=== PATIENT | female | born 1945 | race Caucasian/White ===

== ENCOUNTER 2023-07-11 12:46 | Outpatient (OUT) | payer MEDICARE, SELFPAY ==
--- NOTE | 2023-07-11 14:10 | P.CN_ITS ---
Consult Note: HPI Data of Consult Patient: new to practice Consult date: 07/11/23 Requesting Physician: Kei Espana MD Primary Care Provider: KELLY MCKEON Consult Narrative Reason for consult: low back pain Narrative: 78yof who presents for evaluation. longstanding low back pain, progressively worse in past several months. very active and preventing her from completing activities around home. worst with standing and ambulation. imaging shows severe facet arthropathy in lower lumbar spine. has completed >6 weeks of provider directed home exercise program, with limited benefit. uses otc meds as needed. cc:: CC: Kei Espana MD Review of Systems ROS Status of ROS 10 or more systems reviewed and unremark able except as noted in history and below Exam Narrative Exam Narrative: Psych-alert and oriented x 3. Attentive and appropriate, constitutionally normal, displays normal mood and affect per situation.? There are no obvious deficits in memory, reasoning, or intellect.? Skin-no obvious rashes, bruising, erythema noted to the patient's area of pain. Extremities- extremities are warm with minimal edema and palpable pulses. Lumbar-no significant tenderness to palpation noted in the lumbar spine and paraspinal musculature.? Pain is elicited with extension, and lateral rotation of the lumbar spine. Range of motion is slightly diminished with these motions due to pain. Facet loading maneuvers are positive bilaterally and do appear to be concordant with the patient's normal complaints of pain.? Coordination remains intact.? Gait remains non-antalgic. Assessment and Plan Assessment and Plan (1) Lumbar spondylosis: Plan 78yof who presents for evaluation. failed conservative measures, as noted. imaging reviewed, as noted. given symptoms and imaging, prudent to attempt diagnostic bilateral l4-5, l5-s1 medial branch block under fluoroscopic guidance with intention of proceeding to radiofrequency ablation. she is in agreement. me ds reviewed, no changes. follow up after procedure.
== END 2023-07-11 12:47 | disposition home or self-care (01) ==
PROVIDERS: PCP Family Medicine; Visit Provider Anesthesiology
DX: M47.816 Spondylosis without myelopathy or radiculopathy, lumbar region (principal)
CPT/HCPCS: G0463

== ENCOUNTER 2023-07-25 06:45 | Day surgery (SDC) | payer MEDICARE, SELFPAY ==
--- OUTSIDE RECORDS SUMMARY | 2023-07-25 06:49 | XMS_ITS | CCD ---
Author Organization [facility] Care Team Providers Care Podopediatrician Name Role Phone PHYSICIAN, DEFAULT Admitting Unavailable PHYSICIAN, DEFAULT Attending Unavailable MIKE, SHARI Primary Care Unavailable SU, DR BÁRBARA Amaral Admitting Unavailorestes BLUE, DR BÁRBARA Amaral Attending Unavailorestes TORRES, SARAHI ENG Consulting Unavailable MIKE, DR MENDOZA Primary Care Unavailable Remy Ness Consulting Unavailable WIECEK, DR CARLOS EDUARDO Worthy Consulting Unavailable MIKE, DR MENDOZA Primary Care Unavailable RAMILA, DR CARLOS EDUARDO Worthy Attending Unavailable WISORIN, DR CARLOS EDUARDO Worthy Admitting Unavailable MORAIMA RODNEY Consulting Unavailable MIKE, DR MENDOZA Consulting Unavailable MIKE, DR MENDOZA Attending Unavailable MIKE, DR MENDOZA Admitting Unavailable MIKE, DR MENDOZA Primary Care Unavailable MIKE, DR MENDOZA Primary Care Unavailable WIECESofiya, DR CARLOS EDUARDO Worthy Attending Unavailable WIECEK, DR CARLOS EDUARDO Worthy Admitting Unavailable WIECEK, DR CARLOS EDUARDO Worthy Consulting Unavailable MIKE, DR MENDOZA Consulting Unavailable MIKE, DR MENDOZA Attending Unavailable MIKE, DR MENDOZA Admitting Unavailable MIKE, DR MENDOZA Primary Care Unavailable MIKE, SHARI Amaral Primary Care Unavailable MIKE, SHARI Amaral Consulting Unavailable RichardMarisa armstrong Admitting Unavail able Marisa Ramos Attending Unavail able SHARI MCKEON Primary Care Unavailable Richard, Marisa Calderon Admitting Unavail able Marisa Ramos Attending Unavail able ALEXANDER APARICIO Attending Unavailab le SHARI MCKEON Attending Unavailable SHARI MCKEON Referring Unavailable MARISA RAMOS Attending Unavailable MARISA RAMOS Referring Unavailable MARISA RAMOS Attending Unavailable RICHARD, MARISA Plascencia Attending Unavailable RICHARD, MARISA A Referring Unavailable MARISA RAMOS Attending Unavailable Alessandra ENTRY LEVEL SALES REPRESENTATIVE, Alexander Plascencia Unavailable Shari Mckeon MD Primary Care Provider Jovi JAIMES, Kei Brian Attending Unavailable Allergies Allergy Classification Reported Allergen(s) Allergy Type Date of Onset Reaction(s) Facility (2 sources) Alendronate; Translations: [Fosamax] Drug Allergy [facility] Repository (2 sources) Alendronate Drug Allergy 09-10-2020 Unknown [facility] Medications Current Medications Medication Drug Class(es) Dates Sig (Normalized) Sig (Original) acetaminophen 325 mg / butalbital 50 mg / caffeine 40 mg oral tablet (2 sources) Barbiturate, Central Nervous System Stimulant, Methylxanthine take 1 tablet by mouth every four hours as needed butalbital-acetami nophen-caffeine 50-325-40 MG tablet Take 1 tablet by mouth every 4 (four) hours if needed (headache). 0 Active amoxicillin 500 mg oral tablet (1 source) Penicillin-class Antibacterial Start: 4 End: 4 take 4 tablets by mouth once amoxicillin (Amoxil) 500 MG tablet Indications: S/P reverse total shoulder arthroplasty, left 4 tabs PO once 30-60 mins before procedure 4 tablet 0 04/27/2023 05/04/2023 Active atorvastatin 20 mg oral tablet (2 sources) HMG-CoA Reductase Inhibitor Start: 4 take 1 tablet by mouth once daily atorvastatin (Lipitor) 20 MG tablet Indications: Mixed hyperlipidemia (CMS/HCC) take 1 tablet by mouth once daily 90 tablet 0 04/11/2023 Active azithromycin 250 mg oral tablet (1 source) Macrolide Antimicrobial Start: 4 End: 4 take 2 tablets by mouth once daily, then take 1 tablet by mouth once daily azithromycin (Zithromax) 250 MG tablet Indications: Upper respiratory tract infection, unspecified type Take 2 tablets (500 mg) by mouth Daily for 1 day, THEN 1 tablet (250 mg) Daily for 4 days. 6 tablet 0 04/18/2023 04/23/2023 Active CALCIUM-VITAMIN D PO (2 sources) Start: 3 CALCIUM-VITAMIN D PO 2 (two) times a day. 0 06/29/2022 Active diazePAM 5 mg oral tablet (2 sources) Benzodiazepine Start: 3 diazePAM (Valium) 5 MG tablet Indications: Chronic midline low back pain without sciatica 1 tablet po q.6 hours p.r.n. muscle spasms 20 tablet 0 02/08/2023 Active 60 actuat fluticasone propionate 0.25 mg/actuat / salmeterol 0.05 mg/actuat dry powder inhaler (2 sources) Corticosteroid, beta2-Adrenergic Agonist Start: 4 End: 4 take 1 puff(s) by inhalation in the morning Fluticasone-Salmet harriett 250-50 MCG/ACT aerosol powder Indications: Mild intermittent asthma, unspecified whether complicated (CMS/HCC) Inhale 1 puff in the morning and 1 puff before bedtime. 60 each 0 04/08/2023 07/07/2023 Active hydroCHLOROthiazide 12.5 mg / losartan potassium 100 mg oral tablet (3 sources) Thiazide Diuretic, Angiotensin 2 Receptor Aguilar Start: 4 take 1 tablet by mouth once daily in the morning losartan-hydroCHLO ROthiazide (Hyzaar) 100-12.5 MG tablet Indications: Essential hypertension (CMS/HCC) take 1 tablet by mouth every morning 100 tablet 1 04/21/2023 Active Start: 01-18-2023 End: 04-21-2023 take 1 tablet by mouth in the morning losartan-hydroCHLOROthiazide (Hyzaar) 100-12.5 MG tablet Indications: Essential hypertension (CMS/HCC) Take 1 tablet by mouth in the morning. 100 tablet 0 01/18/2023 04/21/2023 Discontinued Multiple Vitamin (multivitamin) capsule (2 sources) take 1 capsule by mouth in the morning Multiple Vitamin (multivitamin) capsule Take 1 capsule by mouth in the morning. 0 Active rimegepant 75 mg disintegrating oral tablet (2 sources) Start: 01-07-20 take 1 tablet by mouth once daily as needed Rimegepant Sulfate (Nurtec) 75 MG tablet dispersible Indications: Migraine without aura and without status migrainosus, not intractable (CMS/HCC) Take 75 mg by mouth Daily as needed (as needed for migraines). 10 tablet 0 01/06/2023 Active traZODone hydrochloride 50 mg oral tablet (2 sources) Serotonin Reuptake Inhibitor Start: 04-08-19 take 1 tablet by mouth at bedtime traZODone (Desyrel) 50 MG tablet Indications: Primary insomnia Take 1 tablet (50 mg) by mouth at bedtime 90 tablet 1 04/08/2023 Active turmeric extract 500 mg oral capsule (2 sources) Turmeric 500 MG tablet Orally 0 Active Problems Active Problems Problem Classification Problem Date Documented Da te Episodic/Chronic Asthma (4 sources) Mild intermittent asthma; Translations: [Mild intermittent asthma with status asthmaticus] Onset: 06-12-2017 07-15-2022 Chronic Chronic kidney disease (2 sources) Chronic kidney disease stage 3B ; Translations: [Stage 3b chronic kidney disease (HCC)] Onset: 07-15-2022 07-15-2022 Chronic Chronic obstructive pulmonary disease and bronchiectasis (3 sources) Chronic obstructive pulmonary disease, unspecified; Translations: [Chronic obstructive lung disease] Onset: 05-18-2011 07-15-2022 Chronic Disorders of lipid metabolism (4 sources) Pure hypercholesterolemi a; Translations: [Pure hypercholesterolemi a, unspecified] Onset: 07-15-2022 07-15-2022 Chronic Essential hypertension (6 sources) Essential (primary) hypertension; Translations: [Essential hypertension] Onset: 02-14-2020 04-21-2023 Chronic Headache; including migraine (9 sources) Migraine, unspecified, not intractable, without status migrainosus; Translations: [Migraine without aura, not refractory ] Onset: 03-29-2015 07-15-2022 Chronic Heart valve disorders (20 sources) Nonrheumatic aortic (valve) stenosis; Translations: [Nonrheumatic aortic (valve) stenosis with insufficiency] Onset: 06-12-2017 Chronic Osteoarthritis (9 sources) Unspecified osteoarthritis, unspecified site; Translations: [Arthritis of left knee] Onset: 06-22-2017 07-15-2022 Chronic Osteoporosis (4 sources) Senile osteoporosis; Translations: [Age-related osteoporosis without current pathological fracture] Onset: 11-04-2017 07-15-2022 Chronic Other connective tissue disease (2 sources) Artificial knee joint present; Translations: [Presence of unspecified artificial knee joint] Onset: 07-15-2022 07-15-2022 Chronic Other connective tissue disease (1 source) History of reverse prosthetic total arthroplasty of left shoulder; Translations: [Presence of left artificial shoulder joint] 04-27-2023 Chronic Other hereditary and degenerative nervous system conditions (4 sources) Restless legs; Translations: [Restless legs syndrome] Onset: 10-26-2017 07-15-2022 Chronic Other lower respiratory disease (4 sources) Shortness of breath; Translations: [SHORTNESS OF BREATH] Onset: 09-30-2020 Episodic Other nervous system disorders (2 sources) Difficulty walking; Translations: [Difficulty in walking, not elsewhere classified] Onset: 07-15-2022 07-15-2022 Chronic Other nervous system disorders (2 sources) Chronic pain; Translations: [Other chronic pain] Onset: 08-03-2022 08-03-2022 Chronic Other non-traumatic joint disorders (2 sources) Derangement of left shoulder joint; Translations: [Other specific joint derangements of left shoulder, not elsewhere classified] Onset: 07-15-2022 07-15-2022 Chronic Residual codes; unclassified (2 sources) Insomnia; Translations: [Other insomnia] Onset: 07-15-2022 07-15-2022 Chronic Residual codes; unclassified (2 sources) Poor sleep pattern; Translations: [Other sleep disorders] Onset: 08-21-2020 08-03-2022 Chronic Past or Other Problems Problem Classification Problem Date Documented Da te Episodic/Chronic Fever of unknown origin (4 sources) Fever, unspecified; Translations: [FEVER UNSPECIFIED] Onset: 01-02-2020 Episodic Fluid and electrolyte disorders (1 source) Dehydration; Translations: [DEHYDRATION] Onset: 01-04-2020 Episodic Gastritis and duodenitis (3 sources) Gastritis, unspecified, without bleeding; Translations: [Bile-induced gastritis] Onset: 02-14-2020 07-15-2022 Episodic Heart valve disorders (4 sources) Systolic murmur; Translations: [Cardiac murmur, unspecified] Onset: 07-15-2022 07-15-2022 Episodic Immunizations and screening for infectious disease (1 source) Contact with and (suspected) exposure to other viral communicable diseases; Translations: [CONTCT EXPS OTH VIRL COMMUNICABL DZ] Onset: 01-30-2020 Episodic Other aftercare (1 source) Other fpc (current) drug therapy; Translations: [OTH COP CURRENT DRUG THERAPY] Onset: 02-14-2020 Episodic Other aftercare (1 source) assistant 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 (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) use of aspirin; Translations: [JAIL CURRENT USE OF ASPIRIN] Onset: 01-04-2020 Episodic Other gastrointestinal disorders (4 sources) Dysphagia, unspecified; Translations: [DYSPHAGIA UNSPECIFIED] Onset: 02-01-2020 Episodic Other gastrointestinal disorders (2 sources) Dysphagia; Translations: [Dysphagia, unspecified] Onset: 07-15-2022 07-15-2022 Episodic Other lower respiratory disease (1 source) Cough; Translations: [COUGH] Onset: 01-04-2020 Episodic Residual codes; unclassified (2 sources) Postmenopausal state; Translations: [Asymptomatic menopausal state] Onset: 06-28-2015 08-03-2022 Episodic Urinary tract infections (1 source) Urinary tract infection, site not specified; Translations: [UTI SITE NOT SPECIFIED] Onset: 01-04-2020 Episodic Results Test Name Value Interpretation Reference Range Facility MR LUMBAR SPINE WO CONTRASTo n 03-01-2023 MR LUMBAR SPINE WO CONTRAST EXAM: MR LUMBAR SPINE WO CONTRAST History: Low back pain Technique: Multiplanar multisequence MRI of the lumbar spine was obtained without intravenous contrast. Comparison: Lumbar spine radiographs January 28, 2023 Findings: The conus medullaris ends normally. Mild levoscoliosis. The vertebral body heights are well maintained. There is no aggressive bone marrow signal abnormality. Disc desiccation throughout the lumbar spine. Moderate intervertebral disc height loss at T12-L1, L1-L2, and L2-L3 and mild intervertebral disc height loss at L3-L4. T12-L1: Small disc bulge. Mild facet arthropathy. Mild bilateral neural foraminal stenosis. No spinal canal stenosis. L1-L2: Moderate disc bulge. Mild facet arthropathy. Ligamentum flavum thickening. Moderate spinal canal stenosis. Mild left and moderate right neural foraminal stenosis. L2-L3: Small disc bulge. Mild facet arthropathy. Mild spinal canal stenosis. Moderate left and moderate to severe right neuroforaminal stenosis. L3-L4: Small disc bulge. Moderate facet arthropathy. Ligamentum flavum thickening. Mild spinal canal stenosis. Moderate bilateral neural foraminal stenosis. L4-L5: Small disc bulge. Moderate facet arthropathy. Mild spinal canal stenosis. Mild bilateral neural foraminal stenosis. L5-S1: Minimal anterolisthesis of L5 on S1 secondary to advanced facet arthropathy. Small disc bulge. Moderate to severe right and severe left neural foraminal stenosis. Mild spinal canal stenosis. Visualized paravertebral soft tissues appear within normal limits. Round hyperintense T2 structures of both kidneys measuring up to 9 mm most likely represent renal cysts. IMPRESSION: Degenerative changes of the lumbar spine as detailed. ELECTRONICALLY SIGNED BY: Shawn Preciado DO Normal Not Available XR CHEST 2 VIEWSon XR CHEST 2 VIEWS EXAMINATION: XR CHES T 2 VIEWS HISTORY: cough TECHNIQUE: Frontal and lateral views of the chest. COMPARISON: Chest radiograph September 10, 2020 FINDINGS: Atherosclerotic calcification of the thoracic aorta. Cardiomediastinal silhouette is within normal limits. No pneumothorax, pleural effusion, or consolidation. The lungs are hyperinflated and there is coarsening of the pulm interstitium. No acute osseous abnormality. IMPRESSION: No radiographic evidence of acute intrathoracic process. Findings suggesting COPD. ELECTRONICALLY SIGNED BY: Shawn Preciado DO Normal Not Available XR LUMBAR SPINE 4+ VIEWS WIT H FLEXION EXTENSIONon 01-28-2023 XR LUMBAR SPINE 4+ VIEWS WITH FLEXION EXTENSION CLINICAL HISTORY: back pain COMPARISON: NONE FINDINGS: There is no acute fracture or subluxation. There is no loss of vertebral body height. There is preservation of the lordotic curvature of the lumbar spine. There is grade 2 anterolisthesis of L5 on S1. There is levoscoliosis with a Muñoz angle measurement of 8 degrees between L1 and L4. There is dextroscoliosis of the thoracic spine. There is moderate intervertebral disc space narrowing The SI joints are symmetric. IMPRESSION: Impression: There is severe spondylosis of the lumbar spine. ELECTRONICALLY SIGNED BY: Yobany Rangel MD Normal Not Available Consent Formson 07-27-2022 Consent Forms [id number] [facility] Discharge Instructionson Discharge Instructions [id number]#1.00OTGTIFF [facility] MAGR Intraoperative Recordon 07-27-2022 MAGR Intraoperative Record MAGR Intra-Op Record Summary Primary Physician: Marisa Ramos DO Finalized Date/Time: 07/27/22 09:45:04 Pt. Name: RADHA CUADRA /Sex: 1945 FEMALE Med Rec #: [id number] Physician: Marisa Ramos DO Financial #: [id number] Pt. Type: D Room/Bed: / Admit/Disch: 07/26/22 05:52:10 - 07/26/22 11:55:00 Institution: Case Times MAGR Entry 1 Patient In Room Time 07/26/22 07:39:00 Out Room Time 07/26/22 09:50:00 Anesthesia Start Time 07/26/22 07:40:00 Stop Time 07/26/22 09:51:00 Surgery Start Time 07/26/22 08:13:00 Stop Time 07/26/22 09:46:00 Last Modified By: Meryl Eddy RN 07/27/22 06:54:11 Case Attendance MAGR Entry 1 Entry 2 Entry 3 Case Attendee Marisa Ramos William MD Derry RN, Jania Calderon DO Role Performed Surgeon - Primary Anesthesiologist of [employer] Developer Record Time In 07/26/22 07:39:00 07/26/22 07:39:00 07/26/22 07:39:00 Time Out 07/26/22 09:49:00 07/26/22 09:49:00 07/26/22 09:49:00 Procedure Arthroplasty Shoulder Arthroplasty Shoulder Arthroplasty Shoulder Total Reverse(Left) Total Reverse(Left) Total Reverse(Left) Last Modified By: Mode GOLDMAN, Jania Coello RN, Jania Conde RN 07/26/22 09:49:54 07/26/22 09:49:54 07/26/22 09:49:54 Entry 4 Entry 5 Entry 6 Case Attendee Paulina Vásquez CST, CST, Kelly CST McMurray CST/ZOE ENRIQUEZ CST Role Performed Scrub Personnel Scrub Personnel Printer Floor Covering Assistant Time In 07/26/22 07:39:00 07/26/22 07:39:00 07/26/22 07:39:00 Time Out 07/26/22 09:49:00 07/26/22 09:49:00 07/26/22 09:49:00 Procedure Arthroplasty Shoulder Arthroplasty Shoulder Arthroplasty Shoulder Total Reverse(Left) Total Reverse(Left) Total Reverse(Left) Last Modified By: Jania Coello RN, RN, Kathleen A Derry RN, Kathleen A 07/26/22 09:49:54 07/26/22 09:49:54 07/26/22 09:49:54 General Comments: Nicholas Harvard - Arthrex rep Surgical Procedures MAGR Pre-Care Text: A.20 Verifies operative procedure, surgical site, and laterality Im.150 Develops individualized plan of care Entry 1 Procedure Arthroplasty Shoulder Primary Procedure Yes Total Reverse Primary Surgeon Marisa Ramos Modifiers Left Kvng DO Surgeon Comment LEFT REVERSE TOTAL Start 07/26/22 08:13:00 SHOULDER - ARTHREX Stop 07/26/22 09:46:00 Anesthesia Type General Surgical Service Orthopedics Wound Class Clean Technique Details Closure Technique Primary Entire procedure No was performed via laparoscope or robotic assistance Last Modified By: Jania Coello RN 07/26/22 09:49:57 Post-Care Text: O.730 The patient's care is consistent with the individualized perioperative plan of care General Case Data MAGR Pre-Care Text: A.350.1 Classifies surgical wound Entry 1 Case Information OR MAGR OR 05 Case Level Level 5 Wound Class Clean Specialty Orthopedics ASA Class 2 Diagnosis Preop Diagnosis DJD LEFT SHOULDER Postop Same As Preop Yes Postop Diagnosis DJD LEFT SHOULDER Blunt or No Is the procedure No penetrating injury considered occured prior to Emergent/Urgent? the start of the procedure: Last Modified By: Jania Coello RN 07/26/22 08:24:31 Post-Care Text: O.760 Patient receives consistent and comparable care regardless of the setting Time Out MAGR Entry 1 Time out date/time 07/26/22 08:12:00 All team members Yes have introduced themselves by name and role Surgeon, Yes Surgeon reviews Yes anesthesia, nurse critical or confirm patient, unexpected steps, site, procedure operative duration, anticipated blood loss Anesthesia team Yes Nursing team Yes reviews any reviews sterility patient-specific (including concerns indicator results) and equipment issues/concerns Antibiotic Antibiotic Yes prophylaxis given within the last 60 minutes Last Modified By: Jania Coello RN 07/26/22 08:18:23 Patient Positioning MAGR Pre-Care Text: A.280 Identifies baseline musculoskeletal status Im.40 Positions the patient Im.80 Applies safety devices Entry 1 Procedure Arthroplasty Shoulder Body Position Beach Chair Total Reverse(Left) Left Arm Position Resting at Side Right Arm Position Resting at Side Left Leg Position Other/see comments Right Leg Position Other/see comments Feet Uncrossed? Yes Press Points Checked Yes Additional TRIANGLE CUSHION USED Positioning Device Pillow Information UNDER LEGS, PILLOW UNDER CALVES TO KEEP HEELS OFF THE MATRESS, PILLOW UNDER NON-OPERATIVE ARM FOR SUPPORT Outcome Met (O.80) Yes Last Modified By: Jania Coello RN 07/26/22 08:25:37 Post-Care Text: E.290 Evaluates musculoskeletal status O.80 Patient is free from signs and symptoms of injury related to positioning Skin Prep MAGR Pre-Care Text: A.30 Verifies allergies Im.270 Performs skin preparation Im.270.1 Implements protective measures to prevent skin and tissue injury due to chemical sources (more content not included)... [facility] Outside Recordson 07-27-2022 Outside Records [id number]#1.00OTGTIFF [facility] Provider Orderson 07-27-2022 Provider Orders [id number] Telemetry Strips [id number]#1.00OTGTIFF [facility] Anesthesia Noteon 07-26-2022 Anesthesia Note Patient: RADHA CUADRA Age: 77 years Sex: FEMALE : 1945 Associated Diagnoses: None Author: Remy Da Silva MD Postoperative Information Anesthetic utilized: General. Assessment Anesthetic outcome No anesthetic complications noted. Plan Patient comformtable in PACU; Uneventful GA. Transfer/ Discharge: Patient can be discharged from PACU when criteria met. Condition good. [Electronically Signed on: 07/26/2022 11:51 EDT] Remy Da Silva MD [Verified on: 07/26/2022 11:51 EDT] Remy Da Silva MD [facility] Anesthesia Note Patient: RADHA CUADRA Age: 77 years Sex: FEMALE : 1945 Associated Diagnoses: None Author: Remy Da Silva MD Preoperative Information Anesthesia history: Family history. Patient history: No prior anesthesia problems. Review of Systems Constitutional: Negative. Cardiovascular: No Chest Pain. No SOB. Health Status Allergies: Allergic Reactions (All) Moderate Fosamax- No reactions were documented. Canceled/Inactive Reactions (All) No Known Medication Allergies Current medications: Home Medications (9) Active Advair Diskus 250 mcg-50 mcg inhalation powder 1 puff(s), INH, BID aspirin 81 mg oral delayed release tablet 81 mg = 1 tab(s), PO, Daily atorvastatin 20 mg oral tablet 20 mg = 1 tab(s), PO, Daily ferrous sulfate 325 mg (65 mg elemental iron) oral delayed release tablet 325 mg = 1 tab(s), PO, Daily hydrochlorothiazide-losartan 12.5 mg-100 mg oral tablet 1 tab(s), PO, Daily melatonin 5 mg oral tablet 5 mg = 1 tab(s), PRN, PO, Once a day (at bedtime) Oyster Shell Calcium with Vitamin D 500 mg-5 mcg (200 intl units) oral tablet 1 tab(s), PO, BID Template Non-Formulary Tylenol 8 HR Arthritis Pain 650 mg oral tablet, extended release 1,300 mg = 2 tab(s), PRN, PO, BID Problem list (past medical history): All Problems Chronic obstructive pulmonary disease (COPD) / SNOMED CT 66270046 / Confirmed Heart murmur / SNOMED CT 502505950 / Confirmed Hyperlipidemia / SNOMED CT 34562617 / Confirmed HTN (hypertension) / SNOMED CT 2291073757 / Confirmed Histories Family History: COPD Mother Father Procedure history: Arthroplasty of left knee (2010148709). Arthroplasty of right knee (0475637935). Carpal tunnel release (853234610). Comments: 06/29/2022 13:15 EDT - Dorota Myers RN bilat Colonoscopy (467654531). EGD - Esophagogastroduodenoscopy (6038442471). Disorder of rotator cuff (0384594486). Comments: 06/29/2022 13:14 RYANT - Dorota Myers RN left Social History Electronic Cigarette/Vaping Assessment Electronic Cigarette Use: Never. Alcohol Assessment Use: Current. Liquor, Daily Tobacco Assessment Never tobacco user Tobacco Use:. Substance Abuse Assessment Substance use: Never. . Social & Psychosocial Habits Alcohol 06/29/2022 Alcohol Use: Current Type: Liquor Frequency: Daily Substance Abuse 06/29/2022 Substance use: Never Tobacco 06/29/2022 Smoking tobacco use: Never tobacco user Electronic Cigarette/Vaping 06/29/2022 Electronic Cigarette Use: Never . Physical Examination Pain assessment: Self-reports pain The location is: operative site. . General: Alert and oriented, Mild distress. Airway: Mallampati classification: II (soft palate, fauces, uvula visible). Temporomandibular joint mobility: Good. Mouth: Teeth ( Within normal limits ). HENT: Normocephalic. Respiratory: Lungs are clear to auscultation. Cardiovascular: Regular rhythm. Neurologic: Alert, Oriented. Review / Management Laboratory Results Plan [place] [employer]#(ASA) physical status classification: Class II. Anesthetic Preoperative Plan Anesthesia: General. . Anesthetic plan, risks, benefits, and alternatives discussed with the patient and/or family. Patient verbalized understanding. Informed consent was given. Anesthetic technique: General anesthesia, Regional anesthesia, All R/B D/W patient and spouse. All questions answered. Plan for GA and left interscalene PNB for post op pain. Informed consent obtained. Patient was seen, evaluated, consented, and blocked prior to OR and the timing of this note.. [Electronically Signed on: 07/26/2022 08:23 EDT] Remy Da Silva MD [Verified on: 07/26/2022 08:23 EDT] Remy Da Silva MD [facility] Inpatient Patient Summaryon 07-26-2022 Inpatient Patient Summary [facility] [address] [place] [address] Patient Discharge Instructions Name: RADHA CUADRA : 1945 Patient Address: [facility] [address] [facility] [address] Primary Care Provider: Name: SHARI MCKEON After you are discharged if you find you have any questions, please, call [phone] ext [phone] to speak to a nurse. Discharge Diagnosis: Arthritis of left glenohumeral joint; Other specific arthropathies, not elsewhere classified, left shoulder; Rotator cuff tear arthropathy of left shoulder Prescription Information: If you have been given a prescription for narcotics, seek immediate medical attention if you have any difficulty breathing or any sudden status changes such as confusion and sleepiness. If you or anyone you know is experiencing suicidal thoughts, mental health, alcohol and/or drug addiction problems; contact the [facility] 04/10 Crisis Hotline -Text 4HSVR as [phone]. If you received any narcotics, sedation, or any other medication that causes drowsiness for the next 24 hours, unless otherwise directed: ? Do not drive a car. ? Do not operate machinery such as power tools, lawn mowers, drills, sewing machines, or stoves ? Avoid alcoholic beverages and drugs for allergies, nerves, or sleep ? Do not make important personal or business decisions or sign any legal documents [facility] would like to thank you for allowing us to assist you with your healthcare needs. The following includes patient education materials and information regarding your injury/illness. RADHA CUADRA has been given the following list of follow-up instructions, prescriptions, and patient education materials: Follow-up Instructions With: Address: When: Marisa Ramos [address] [place] [address], [address] [place] [address] Business (1) 08/03/2022 11:00 AM Medications During the course of your visit, your medication list was updated with the most current information. The details of those changes are reflected below: Medications to Continue That Have Not Changed Other Medications acetaminophen (Tylenol 8 HR Arthritis Pain 650 mg oral tablet, extended release) 2 tab(s) Oral 2 times a day as needed as needed for fever. aspirin (aspirin 81 mg oral delayed release tablet) 1 tab(s) Oral every day. atorvastatin (atorvastatin 20 mg oral tablet) 1 tab(s) Oral every day. calcium-vitamin D (Oyster Shell Calcium with Vitamin D 500 mg-5 mcg (200 intl units) oral tablet) 1 tab(s) Oral 2 times a day. ferrous sulfate (ferrous sulfate 325 mg (65 mg elemental iron) oral delayed release tablet) 1 tab(s) Oral every day. fluticasone-salmeterol (Advair Diskus 250 mcg-50 mcg inhalation powder) 1 puff(s) Inhalation 2 times a day. hydrochlorothiazide-losartan (hydrochlorothiazide-losarta n 12.5 mg-100 mg oral tablet) 1 tab(s) Oral every day. melatonin (melatonin 5 mg oral tablet) 1 tab(s) Oral once a day (at bedtime) as needed for insomnia. Template Non-Formulary It is important to always keep an active list of medications available so that you can share with other providers and manage your medications appropriately. As an additional courtesy, we are also providing you with your final active medications list that you can keep with you. acetaminophen (Tylenol 8 HR Arthritis Pain 650 mg oral tablet, extended release) 2 tab(s) Oral 2 times a day as needed as needed for fever. aspirin (aspirin 81 mg oral delayed release tablet) 1 tab(s) Oral every day. atorvastatin (atorvastatin 20 mg oral tablet) 1 tab(s) Oral every day. calcium-vitamin D (Oyster Shell Calcium with Vitamin D 500 mg-5 mcg (200 intl units) oral tablet) 1 tab(s) Oral 2 times a day. ferrous sulfate (ferrous sulfate 325 mg (65 mg elemental iron) oral delayed release tablet) 1 tab(s) Oral every day. fluticasone-salmeterol (Advair Diskus 250 mcg-50 mcg inhalation powder) 1 puff(s) Inhalation 2 times a day. hydrochlorothiazide-losartan (hydrochlorothiazide-losarta n 12.5 mg-100 mg oral tablet) 1 tab(s) Oral every day. melatonin (melatonin 5 mg oral tablet) 1 tab(s) Oral once a day (at bedtime) as needed for insomnia. Template Non-Formulary , Turmeric 1 tab(s) po bid Take only the medications listed above. Contact your doctor prior to taking any medications not on this list. Diet & Activity Patient Activity Level: Other: avoid external rotation of the shoulder Patient Diet: Regular Patient Activity Restrictions: Comment: Patient education materials, if any, will display below DR. MESSINA POST OPERATIVE SHOULDER INSTRUCTIONS SURGEONS WRITTEN INSTRUTCTIONS: 1. If you have been given a cryo cuff after surgery you should use it as much as possible for the first 24-48 hours. After that it is optional. TIP: Many patients prefer to use it a little longer because it helps reduce pain 2. You should wiggle your fingers frequently (more content not included)... [facility] [facility]R Intra-Op Record Summary Primary Physician: Finalized Date/Time: 07/26/22 07:42:32 Pt. Name: RADHA CUADRA/Sex: 1945 FEMALE Med Rec #: [id number] Physician: Marisa Ramos DO Financial #: [id number] Pt. Type: D Room/Bed: / Admit/Disch: 07/26/22 05:52:10 - Institution: Case Times MAGR Entry 1 Patient In Room Time 07/26/22 07:13:00 Out Room Time 07/26/22 07:38:00 Anesthesia Start Time 07/26/22 07:23:00 Stop Time 07/26/22 07:34:00 Surgery Start Time 07/26/22 07:31:00 Stop Time 07/26/22 07:34:00 Last Modified By: Kimberley Le RN 07/26/22 07:39:25 Case Attendance MAGR Entry 1 Entry 2 Entry 3 Case Attendee Remy Da Silva MD, Margaret RN Warga, Laura RN Role Performed Anesthesiologist of [employer] Developer C[employer] Developer Record Time In 07/26/22 07:13:00 07/26/22 07:13:00 07/26/22 07:13:00 Time Out 07/26/22 07:38:00 07/26/22 07:38:00 07/26/22 07:38:00 Procedure Interscalene Block(Left) Interscalene Block(Left) Interscalene Block(Left) Last Modified By: Kimberley Le RN, Margaret RN Klaehn, Margaret RN 07/26/22 07:39:31 07/26/22 07:39:31 07/26/22 07:39:31 Entry 4 Case Attendee Amy Bates RN Role Performed [employer] Developer Time In 07/26/22 07:13:00 Time Out 07/26/22 07:38:00 Procedure Interscalene Block(Left) Last Modified By: Kimberley Le RN 07/26/22 07:39:31 Surgical Procedures MAGR Pre-Care Text: A.20 Verifies operative procedure, surgical site, and laterality Im.150 Develops individualized plan of care Entry 1 Procedure Interscalene Block Primary Procedure Yes Primary Surgeon Remy Da Silva MD Modifiers Left Surgeon Comment SCALENE BLOCK PRIOR TO Start 07/26/22 07:31:00 LEFT REVERSE TOTAL SHOULDER - ARTHREX Stop 07/26/22 07:34:00 Anesthesia Type Regional Block Surgical Service Anesthesia Wound Class Clean Technique Details Closure Technique N/A Entire procedure No was performed via laparoscope or robotic assistance Last Modified By: Kimberley Le RN 07/26/22 07:39:38 Post-Care Text: O.730 The patient's care is consistent with the individualized perioperative plan of care General Case Data MAGR Pre-Care Text: A.350.1 Classifies surgical wound Entry 1 Case Information OR MAGR Proc Room Case Level None Wound Class Clean Specialty Anesthesia ASA Class 2 Diagnosis Preop Diagnosis SCALENE BLOCK PRIOR TO Postop Same As Preop Yes LEFT REVERSE TOTAL SHOULDER - ARTHREX Postop Diagnosis SCALENE BLOCK PRIOR TO LEFT REVERSE TOTAL SHOULDER - ARTHREX Blunt or No Is the procedure No penetrating injury considered occured prior to Emergent/Urgent? the start of the procedure: Last Modified By: Kimberley Le RN 07/26/22 07:25:19 Post-Care Text: O.760 Patient receives consistent and comparable care regardless of the setting Time Out MAGR Entry 1 Time out date/time 07/26/22 07:23:00 All team members Yes have introduced themselves by name and role Surgeon, Yes Surgeon reviews Yes anesthesia, nurse critical or confirm patient, unexpected steps, site, procedure operative duration, anticipated blood loss Anesthesia team Yes Nursing team Yes reviews any reviews sterility patient-specific (including concerns indicator results) and equipment issues/concerns Antibiotic Antibiotic N/A prophylaxis given within the last 60 minutes Is essential Yes imaging displayed? Last Modified By: Kimberley Le RN 07/26/22 07:25:40 Patient Positioning MAGR Pre-Care Text: A.280 Identifies baseline musculoskeletal status Im.40 Positions the patient Im.80 Applies safety devices Entry 1 Procedure Interscalene Block(Left) Body Position Semi-Fowlers Left Arm Position Resting at Side Right Arm Position Resting at Side Left Leg Position Extended Right Leg Position Extended Feet Uncrossed? Yes Press Points Checked Yes Outcome Met (O.80) Yes Last Modified By: Kimberley Le RN 07/26/22 07:26:19 Post-Care Text: E.290 Evaluates musculoskeletal status O.80 Patient is free from signs and symptoms of injury related to positioning Skin Prep MAGR Pre-Care Text: A.30 Verifies allergies Im.270 Performs skin preparation Im.270.1 Implements protective measures to prevent skin and tissue injury due to chemical sources Entry 1 Skin Prep Syntegrity Prep Agents (Im.270) Chlorhexidine Gluconate Prep By Remy Da Silva MD and Alcohol Prep Area (Im.270) Shoulder, Neck Prep Area Details Left Skin Prep Agent Dry Yes Without Pooling Hair Removal Syntegrity Hair Removal Methods No hair removal performed Outcome Met (O.100) Yes Last Modified By: Kimberley Le RN 07/26/22 07:26:52 Post-Care Text: E.10 Evaluates for signs and symptoms of physical injury to skin and tissue O.100 Patient is free from signs and symptoms of chemical injury Departure from OR MAGR Entry 1 Present on Depart Oxygen Via Stretcher Post-op Destinat (more content not included)... [facility]R PACU Record MAGR PACU Record [facility] Primary Physician: Marisa Ramos DO Finalized Date/Time: 07/26/22 10:38:28 Pt. Name: LIV CUADRAJANELLE Dangelo/Sex: 1945 FEMALE Med Rec #: [id number] Physician: Marisa Ramos DO Financial #: [id number] Pt. Type: D Room/Bed: / Admit/Disch: 07/26/22 05:52:10 - Institution: PACU Case Times MAGR Entry 1 In PACU I 07/26/22 09:51:00 Discharge from PACU 07/26/22 10:35:00 I Last Modified By: Warner Bolton RN 07/26/22 10:38:23 Finalized By: Warner Bolton RN Document Signatures Signed By: Warner Bolton RN 07/26/22 10:38 [facility] MAGR Postoperative Recordon 07-26-2022 MAGR Postoperative Record MAGR Phase II Record Summary Primary Physician: Marisa Ramos DO Finalized Date/Time: 07/26/22 12:01:17 Pt. Name: LIV CUADRAJANELLE Dangelo/Sex: 1945 FEMALE Med Rec #: [id number] Physician: Marisa Ramos DO Financial #: [id number] Pt. Type: D Room/Bed: / Admit/Disch: 07/26/22 05:52:10 - Institution: Phase II Case Times MAGR Pre-Care Text: Patient is free from s/s of injury. Patient remains free from compromised physical state related to surgery or anesthesia. Patient comfort maintained. Patient/family verbalize understanding of discharge instructions. Entry 1 In PACU II 07/26/22 10:38:00 Discharge from PACU 07/26/22 11:55:00 II Last Modified By: Annamarie Samuels RN 07/26/22 12:01:10 Post-Care Text: The patient remains free from s/s of injury. Patient's vital signs stable, circulation maintained, return to preop mental and physical status, opsite/dressing intact, minimal or absent nausea and vomiting, tolerates po intake. Patient verbalizes adequate pain control. Patient/family express understanding of discharge instructions. General Comments: Pt stable for discharge. Pt wants to go home Finalized By: Annamarie Samuels RN Document Signatures Signed By: Annamarie Samuels RN 07/26/22 12:01 [facility]-26-[facility]22 MAGR Preoperative Record MAGR Pre-Op Record Summary Primary Physician: Marisa Ramos DO Finalized Date/Time: 07/26/22 07:44:03 Pt. Name: RADHA CUADRA BRAD /Sex: 1945 FEMALE Med Rec #: [id number] Physician: Marisa Ramos DO Financial #: [id number] Pt. Type: D Room/Bed: / Admit/Disch: 07/26/22 05:52:10 - Institution: Pre-Op Case Times MAGR Pre-Care Text: Patient will be optimally prepared for surgery. Patient is free from s/s of injury. Provide information to patient/family related to plan of care. Verify patient allergies. Confirm identity and verify consent before the operative or invasive procedure. Entry 1 Patient Arrival Time 07/26/22 06:02:00 Preop Departure 07/26/22 07:38:00 Last Modified By: Kimberley Le RN 07/26/22 07:43:56 Post-Care Text: Patient is prepared mentally and physically and is ready for surgery. The patient remains free from s/s of injury. Patient/family express understanding of plan of care and participate in decisions affecting his or her perioperrative plan of care. Allergies documented appropriately. Patient identifiers and consent correct. General Comments: Pt arrives to [facility] ambulatory. Pt denies cp, sob, cough or flu like symptoms. She also pacemaker/defibillator or sleep apnea. 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 Anesthesia: General with a preoperative interscalene block Indications for surgery: Ongoing pain with findings of arthritis of the glenohumeral joint and a previous rotator cuff repair Estimated blood loss: 50 Complications: None Findings: [id number] in the glenohumeral joint Procedure summary: Patient was brought to the operative suite the patient was given general anesthesia the patient was placed in the beachchair position. The left shoulder was initially prepped with isopropyl alcohol and allowed to dry and then prepped with Betadine and draped in the usual fashion. A timeout was taken. An incision was made anteriorly utilizing a deltopectoral approach. The cephalic vein was mobilized laterally with the deltoid. The conjoined tendon was identified the biceps was identified the biceps was tenodesed to the pectoralis and then the proximal portion of the biceps was resected. The capsule and subscapularis were opened and the shoulder was dislocated the humeral head was slightly flattened and complete absence of articular cartilage along the articulating surface of the humeral head. The humeral head was cut utilizing a 20 degree version guide. What remained of the labrum was excised. 24 mm baseplate guide was large to this relatively small glenoid with slight anterior overhang. The central pin was inserted and reaming was performed. I reamed to accommodate a 33 mm glenosphere. I reamed to 25 for central post. A 24+2 mm baseplate with a A 40 mm nonlocking screws was used superiorly and then a 28 mm nonlocking screw was used inferiorly and a 28 mm locking screw posteriorly. A 33+4 mm glenosphere was impacted into place and then secured with a central locking screw and checked for integrity. It was torqued between 4 and 5. My attention was turned back to the humerus the canal was opened with a hand-held reamer and then broaching sequentially to 6 however the 6 broach just sat proud so I downsized to a 5. I used a posterior offset cup. Reaming was performed accordingly to accommodate the cup trial reductions were performed. The deltoid was tensioned and the shoulder was stable with no tendency towards dislocation. The trial components were removed and a size 5 stem with 135 degree cup offset posteriorly was impacted into place it was snug and secure. Next a +3 mm liner was clicked into place and checked for integrity. The shoulder was reduced and range of motion was taken to extremes there was no tendency towards dislocation. I irrigated thoroughly. I soaked the wound and prosthesis in diluted Betadine. I repaired the subscapularis with a #2 FiberWire. I closed the subcutaneous fascia with a 2-0 Vicryl suture and then a running 3-0 subcuticular stitch tincture benzoin and Steri-Strips. Sterile dressings were applied. [Electronically Signed on: 07/26/2022 09:35 EDT] Marisa Ramos DO [Verified on: 07/26/2022 09:35 EDT] Marisa Ramos DO [facility] Patient Handouton 07-26-[address] MESSINA POST OPERATIVE SHOULDER INSTRUCTIONS SURGEONS WRITTEN INSTRUTCTIONS: 1. If you have been given a cryo cuff after surgery you should use it as much as possible for the first 24-48 hours. After that it is optional. TIP: Many patients prefer to use it a little longer because it helps reduce pain 2. You should wiggle your fingers frequently 3. Change your dressings in 1 day. If steri-strips have been applied DO NOT remove them. When the wound is clean and dry you may leave it open to air but again DO NOT remove any steri-strips that have been applied 4. You may shower in 1 day but do not let the water stream directly strike the wound 5. Do pendulum exercises for at least 10 minutes twice a day 6. If you have any problems or concerns, please call the office at [phone] 7. Follow up as scheduled [facility] XR Shoulder 1 View Lefton XR Shoulder 1 View Left EXAM: XR Shoulder 1 View Left HISTORY: Status post Shoulder Replacement. COMPARISON: MRI left shoulder study dated 08/31/2012. TECHNIQUE: Single frontal view of the left shoulder was obtained with portable technique at 1014 hours. FINDINGS: There is a ball-in-cup type left shoulder prosthesis which appears unremarkably positioned. Soft tissue air is seen compatible with recent surgery. Mild degenerative change about the acromioclavicular joint. No definite acute fracture or dislocation. Stabilizing opacities at the cervical level. IMPRESSION: Left shoulder study demonstrates grossly unremarkable post arthroplasty changes as described. Follow-up as needed. Final Dictated by: Jayant Peters MD Dictated DT/TM: 07/27/22 10:40 Signed (Electronic Signature): Jayant Peters MD 07/27/22 4:01 pm Technologist: JORDON RUVALCABA [facility] Comment on above: Order Comment: defau lt status post shoulder replacement Progress Note - Nurseon 07-12 Progress Note - Nurse Pre-op call made to pt. Pt states understanding of arrival time of 0600 on 07/26/22 and NPO after MN. [Electronically Signed on: 07/23/2022 09:27 EDT] Shantel Gonsalez RN [Verified on: 07/23/2022 09:27 EDT] Shantel Gonsalez RN [facility] Coding Summaryon 07-02-2022 Coding Summary HTMLBase 64 MmtzrweaOFm7rDf+PGhlYWQ+PE1F OCAjP85bvCHxkK2YR0dYLT1BDSJE LYPJIZ6DDD1vzLV0BGoeQ0GqlyYp TfdefJDkAQ68PTv6OML8pRjoXTzq eF3hzJTwK7n7YmDrKD84sR58GExo UPZsQxP5RsPeyfjbtRIt Z1oiOdXkxPPhInf+PHRhYmxlIHdp KCEsLRfhXYFyKsCbmMebQQ9qUe8g ZGVyLWNvbGxhcHNlOiBj a8xnYAPkDBvnYM9efYdyN7WxyCU4 VFRnj3s9Hs50dPG+ZWCvEGI8yBbw ZQgzz516GoZub1zhUIS1 tTRmHAekXYD3T79aw3B6RQRbKQSs JGK0oAA1tC4lxYkiolzsK1PiaBDl IrL1MIU3iZZhvF1gsEfo qpqyhQ2uGql+W16LOO9XFQVAVR6X Enk5M0LaKbbonVP+PQ96UTOrDL58 gWJcbOHmo4mpjQn5PjCg WSBlANV0qQrtCIsjo8GaNKGaP01p nPPos0I5FLWucXhdxCNsSfBmnRC2 qC7jGBclyjgsj8deecmw Cuvof4bvhk20nB12Y31zTYdaXVVk COA9ZUHrDFScrZpknq9heK4aGr5+ VYbbh0rno2ftcEt6SwLc GSNvpcBtrTuiCRQ2k7EaUb79W4Uv kSdgm3VaWxq0kw52lMGbm3N2oDA5 BSdlLRTobW7aBDvnWbF7 UTXeMrRmtE68vVGrDJpyEe0fxXjt yVluWI3gPVOgexpsJHOsaN6kLWSt rUUlnUnxIG5xDXDayyeg g814YqCyENN5FKLtaCKxS4AbgS4x LlZrLAMhXBTlR7QbgAHrJLfwA101 GXshNjZ8SSDrvwSkX4Gc IFIyoNfqMrA8o0X0Pw7Op2Ufopij WWS7ARenBIS7HuXzHvYrAlE9C7Ue Yba6JFKcaKnhIZ3pJ0Oa RHQwgnicebfkuWP1ZMUiBUVucJ50 qICoWWvpAe6ay8Y1n722KWUmTECe rQ05Sj8jzQgfTOLheZVT aF2oqveef1zwlxgzMrHrQUZlBNg5 VLn8JCHkvGeoMnJuPLE0JjF6ULR2 wICfiP1ybIutytnykU0g Oyc+X72ieL6rIYC8EOB2cpucJUUh gpMyKM76SY64M4UcXqjduQZgbQX+ VXQnobEduZhjAE9eLyFl g1euv4JcLHwwP3XrRKEbRHlaAcm5 FJBgEJW2bPV1iG1hWFGbOBlrz9E0 oJV1R1TuybZebz7sm3mx JKGsGWbfL98nhWFwu4G7QUWkcUV8 NOMdxNycObUxeJ68Nqj+PGNvbGdy n5SuLrdjq4giv3ijvJs1 YeMeODJvbePqlVwkEJF5t1ZwCk38 Z88yBYqcCGUkGQRkOIWqRSMkkLsw uh0khF5nAp9+PGNvbCB3 kUA2lZ0wZRVoOyT5NCrlG863CdTw eFZuHttzw0ogp0qthMs6AtJhQPPc boFobImdHXW9h5OzIz32 J74kOMelBNDfILNgDTEfEXWucHzk lw2eoP0hKe2+CW2vm1nbyg83qN41 dHI+GIBeVLL5hDgrHDjo AEOemA3pDPxrLqD6EUYzJzKflC46 dJLyRZdjWr5cqHduwGyoFX8sYXKj umuyb261AoWuq9fbOFTq vMVgPNaoVWI5M46io9Y9NEVsXXNg GZU2zMD4qM5ysShvkbngnBKlkYgl tuVriYprDLdjPGivG550 IHRvcDsnPlBhdGllbnQgTmFtZTo8 S4XvWne6XPAhzNesVT5edTVcDIui Ua1htWfilHwtAT5mCSPe gtjrf398YuIcp2smDFQhdXXxMFum IQV2I51lx4Y1IMQxKJZfADV9lGI3 bY4cnKlweslvvYVwfLoe syRjoBxnLUkePJepQ148COGdwBva ZpWzgoBoMQTdsUP2HI48IG62hAYh q4I6tZQ1A0VfXHNkazsm kyimbYS4KUTzZRZlrQ25Zf8ljMsj Og8aVZMuKSV0CWBizWEuA2NlbR9z OyDrIHScGKPeL5SvgUUz EDxhP154QAriDpK4ZUCowjYlJ7Ww LXUaxHaoTfP2w9P6Du5SD2S4VS81 AO13gXCrf2T3cDK0H5Vr WXAssuwkjwrovAE2UFLkGLVhbE37 Vx6wgAicRk7vGUHfNQV2RKCppMFe Z6ZrqP4qUwZpBKRbTFYn S3WfqNDwIMctS650WOqyHgL8SWTr bnPoV8PfMMBmuDcmLjB2i6Y6Fu2M SFw1EI22KG72vTCzg4O9 yUM2D8PcJJNbwajevclzmYW0THRi WUSqgL66Gg2mcVaeTc4oZWYjDOL3 FNMwcJLlP4UwnR5xBwGy YQJqIIUcA8ZgkADpQBryY707VGmp TrY4FMCjlnKbH3BrHIAcrJmmCjD4 w5A3Vq7LTVDvLL14HBY5 wRH4EL65CK40G6RcSamaeGDyqLD+ PHRhYmxlIHdpZHRoPScxMDAlJyBz kEgdLS1hYj2aJHEvHBCp sFzayMMiDyGpt7bdMFFhPUxdVM2p lBidU8IeuZL7HTUfu0y7Op55M04c I0WctTW+AJZtrUM8sLM6 tU3oTyFlJcT7REjyA991JtAqgPWv Djsko5stv0bwpTw7LjN5DGPwqcIe bOkhTVW1m6SzNj32P91v NWtpENEtHEHxQDJhCOXpwUhrsn9g oW7aVg4+NRYbvUF1hJM8rB9sFtFc HaY0SWhbS150RjAmgHAl Fngil4udj8farAo7EdRwDYWjpfTx xCdtTFP3w7VjBy03V6JrlRlba9Zg Tdg8dj06jSMwc6Q6iZU5 R2WyQZMruamnxEJreCkcNF9dUOAr qhgsYANtqR8gJVTnL3d0McTjMjT0 DFvhT2QbuxL3GJVpgZQk EGtcCNO0A49df9M4JWRvWQKbVVM9 yKF6uY3gkNmmifuffPJvrKspcgCt bFtoWOkgKIesM432KPJf lPbpHERvoV2tWOUsgPNohIreDW6r TOVckxvuTqrIESVmUTqVUEhfBJ9Z WFh9V3ZvDmv8ABQapWvi XB0guYFrJButBu9njZnbuYerYT0j GEDgpifsNIAlfZ8hYIAprSQemJdu RM4wXHLjfbxoh320QqXv TVL4CPYgdSHgL0BklJ0kTcJzIPEh OFLoQ4TccNOfSKtyF338GOmwApF2 WEBnpwOgV4SeOFXhmAjr UqS9h5Y1Qb9qRc7gYy9mBXY7YV32 BU80sBXkc1X1bQY9A6OiJLMnazuw ddpikMA0NAEhTRXtaX27 vRMlRMfaYd3xg7A7y084XMJqYWUq yE42Ip9waJyaTBMmfLKWjM9xfphn o7opkydcQxPcCKQhCAj7 UKs2FIMwtGogYmAdVMV3IsN8GYU9 iUEmaY7mdOpkmhjgkO1yLim+Nzgg TNAlhsJ3V4MpHai4YUGo hLvlMO9wpJEhMJolOb3dcFzzeIni YS4zUDRfhyowCJQisV3mGBQikULt nTotWG4iDNYlnwkwi108 FbTlLUL7KWVylSXbK4EgeV7dSdLk XALhXHPgQ8HssXAuSYawU852JQmw DgG3POSmrhPjG1YwVUDj rResXoK9k0O7Wf2KBM1IXLH8E6Pd Hgl5HAYdsByqBR2cyXTiZPpzGc5t tOiylBrgRJ8hUBQpioji BCCjpW5eHDHgoHKwdTcjMI7qNPQt noizo439GrQzYYC3REQaqLGnO1Ql eL8kIoFbEVDfSWEwG4Wn fLQhMKpiH407XOqqDaP1FONgxlUw L4UpAAIloOypKyJ3d4M8Up9RXTrp dGQ+DH71nk10E7IiPlqs Hyp5JXFfJZN4bWB8pN7jESNfQOmj u6N4kSY0A4BuktUccv1ni3pyGCAl QLfyJ16hxUGvk5I4HKKp mXJ2UGGzkFejRoUxwM37Fry+PGNv cLdhj4ZlZzheg0uqx3nhrGi7FlZl WNXhrcRnwQhbHKZ4l8De St80U19oAJpjAMIuUWXzLQZmLQCn mBvvud2dqE0fVr1+ZYJoeZG3yYT5 tB8zVtJiCwP4WJgaU918 VdPkzWNvCqhpz3lat5rkpWc4TaEj ARRasjAgsRsqUCJ0t7VuUj10I9Nq cPmxi4UdEdo3mr26rECp l0P8pZP7V7PtNZNgqeggyMVwjYlo XI1hQOFosxlpOJFhhQ4xGPYvX8u9 LyGqXcW9HZgvP4KinlL1 NNKdmQCgDAHziJJQkV5seakhw4kg sobfXaYbDNFkUPd8JBs9KOOozHxz LhBsSQZ6PtY4FRF9cZWk lO6suUnqdnwvxW7zRmx+ULd1r9ka xMVnJM9efAB5LT94RS06xKMwi8Y4 oZD3Y1FjWPDqwyimteix dKJ5BXRkBEBupC74To7bkTziUj9p KILrOQD9YHMikQEkD7UqoS9eCbFs EGQrSMYzY3OyoQEvMQse O093PItdDuF5EYOohuUaQ5IfQRYa hXxxXkG6f7T2Zx7QYR95YZ21SF44 pBFzy3Z8oRA4M5PoDBIb fcsegfjnmJA7IJDbQLGjmF93Ll8i xXhqBv0xOSXxBOY7LZCnvBGxO5Gi sD7mXhGoLHJfAIQwC5Rp dWGtZReuJ183NWosZnS8WCFjcuFh T4IeMBRmvAvyKiB6t5H9Ok6RSh36 OY25UC30eRVlv1Y2wUF6 T5KmAOZylcwysumupWI5JIJkYUKm zT86Ew5zePvdKv8tZTGaXED3MYWb kUBkU6PsgJ5fSwYcZLAl OJFhJ2ZkeQVaQDvhX212TLgxWjZ3 HVYjdbPbL9YrJFTdzZygFnW7w2J2 Pr9JWScsemr3X5TtPlwe dHI+HF46FEPiYO96qFKviBRsj1ys hPk3RdBfMNGvRLS7kVdjDVupj6Zc OKQhR47mlQSwu1I6GXKm bGx (more content not included)... Normal [facility] C MRSA Screenon 06-30-2022 C MRSA Screen Negative Normal [facility] Comment on above: Performed By: #### 1 [id number] ####[facility] (DEFAULT)[address] [place] [address] Progress Note - Nurseon 06-12 Progress Note - Nurse Dr. Castro reviewed PAT notes for upcoming surgery 07/26/2022. No new orders at this time [Electronically Signed on: 06/30/2022 11:45 EDT] Annamarie Samuels RN [Verified on: 06/30/2022 11:45 EDT] Annamarie Samuels RN [facility] Provider Orderson 06-30-2022 Provider Orders [id number] [facility] .Auto Diff 1on 06-29-2022 Auto [place] % 10 % Normal 1-12 [facility] Comment on above: Performed By: #### [id number] ####[facility] (DEFAULT)[address] [place] [id number] Baso Abs# 0.0 x10 Normal 0.0-0.2 [facility] Comment on above: Performed By: #### 7 [id number], [id number], [id number] ####[facility] (DEFAULT)[address] [place] [address] 93602 Basophils/100 WBC (Bld) 0.7 % Normal 0.2-2.0 [facility] Comment on above: Performed By: #### 7 [id number], [id number], [id number] ####[facility] (DEFAULT)[address] [place] [address] 09525 Eos Abs# 0.6 x10 High 0.0-0.4 [facility] Comment on above: Performed By: #### 7 654808, [id number], [id number] ####[facility] (DEFAULT)[address] [place] [address] 63907 Eosinophils/100 WBC (Bld) 8.5 % High 0.9-4.0 [facility] Comment on above: Performed By: #### 7 714443, [id number], [id number] ####[facility] (DEFAULT)[address] [place] [address] Lymph Abs# 1.6 x10 Normal 1.3-2.9 [facility] Comment on above: Performed By: #### 7 327552, [id number], [id number] ####[facility] (DEFAULT)[address] [place] [address] Lymphocytes/100 WBC (Bld) 24 % Normal 14-48 [facility] Comment on above: Performed By: #### 7 074899, [id number], [id number] ####[facility] (DEFAULT)[address] [place] [address] [place] Abs# 0.7 x10 Normal 0.0-0.8 [facility] Comment on above: Performed By: #### 7 610115, [id number], [id number] ####[facility] (DEFAULT)[address] [place] [address] Neut Abs# 3.8 x10 Normal 1.5-9.2 [facility] Comment on above: Performed By: #### 7 645915, [id number], [id number] ####[facility] (DEFAULT)[address] [place] [address] Neutrophils/100 WBC (Bld) 57 % Normal 44-88 [facility] Comment on above: Performed By: #### 7 035314, [id number], [id number] ####[facility] (DEFAULT)[address] [place] [address] Standardon 06-29-2022 eGFR Non AA 33 mL/min/1.73m2 Invalid Interpretation Code [facility] Comment on above: Performed By: #### 7 577030, [id number], [id number] ####[facility] (DEFAULT)[address] [place] [address] eGFR AA 40 mL/min/1.73m2 Invalid Interpretation Code [facility] Comment on above: Performed By: #### 7 688499, [id number], [id number] ####[facility] (DEFAULT)[address] [place] [address] 39892 Anion gap [Moles/Vol] 8.9 mmol/L Normal 5.0-19.0 [facility] Comment on above: Performed By: #### 7 116647, [id number], [id number] ####[facility] (DEFAULT)[address] [place] [address] 01745 Calcium [Mass/Vol] 9.3 mg/dL Normal 8.9-10.3 [facility] Comment on above: Performed By: #### 7 086124, [id number], [id number] ####[facility] (DEFAULT)[address] [place] [address] 38526 Chloride [Moles/Vol] 102 mmol/L Normal 101-[address] [facility] Comment on above: Performed By: #### 7 659456, [id number], [id number] ####[facility] (DEFAULT)[address] [place] [address] 36551 CO2 [Moles/Vol] 28 mmol/L Normal 21-32 [facility] Comment on above: Performed By: #### 7 205465, [id number], [id number] ####[facility] (DEFAULT)[address] [place] [address] 27779 Creatinine [Mass/Vol] 1.53 mg/dL High 0.60-1.30 [facility] Comment on above: Performed By: #### 7 828500, 44761742, [id number] ####[facility] (DEFAULT)[address] [place] [address] 82043 Glucose [Mass/Vol] 107.0 mg/dL Normal 74.0-118.0 [facility] Comment on above: Performed By: #### 7 077540, 94292120, [id number] ####[facility] (DEFAULT)[address] [place] [address] 28096 Osmolality 279 mOsm/L Invalid Interpretation Code [facility] Comment on above: Performed By: #### 7 025722, [id number], [id number] ####[facility] (DEFAULT)[address] [place] [address] 21465 Potassium [Moles/Vol] 3.9 mmol/L Normal 3.6-5.1 [facility] Comment on above: Performed By: #### 7 887018, 93767592, [id number] ####[facility] (DEFAULT)[address] [place] [address] 31116 Sodium [Moles/Vol] 135.0 mmol/L Low 136.0-144 . 0 [facility] Comment on above: Performed By: #### 7 289132, [id number], [id number] ####[facility] (DEFAULT)[address] [place] [address] 55652 Urea nitrogen [Mass/Vol] 36 mg/dL High 8-26 [facility] Comment on above: Performed By: #### 7 925389, 69523898, [id number] ####[facility] (DEFAULT)[address] [place] [address] Urea nitrogen/Creatinine [Mass ratio] 23.5 mg/mg High 4.6-16.2 [facility] Comment on above: Performed By: #### 7 540624, 83507114, [id number] ####[facility] (DEFAULT)[address] [place] [address] CBC w/ Auto Diffon 3 Erythrocyte distribution width (RBC) [Ratio] 12.8 % Normal 11.5-15.0 [facility] Comment on above: Performed By: #### 7 943449, 43057526, [id number] ####[facility] (DEFAULT)[address] [place] [address] 52253 Hematocrit (Bld) [Volume fraction] 36.4 % Normal 33.7-40.4 [facility] Comment on above: Performed By: #### 7 673662, 96590786, [id number] ####[facility] (DEFAULT)[address] [place] [address] 76321 Hemoglobin (Bld) [Mass/Vol] 12.2 g/dL Normal 11.3-15.9 [facility] Comment on above: Performed By: #### 7 530108, 95774156, [id number] ####[facility] (DEFAULT)[address] [place] [address] 79579 Man Diff? Auto Invalid Interpretation Code [facility] Comment on above: Performed By: #### 7 429197, 94747051, [id number] ####[facility] (DEFAULT)[address] [place] [address] 32720 MCH (RBC) [Entitic mass] 32 pg Normal 24-34 [facility] Comment on above: Performed By: #### 7 263632, 83985224, [id number] ####[facility] (DEFAULT)[address] [place] [address] 28722 MCHC (RBC) [Mass/Vol] 33 g/dL Normal 26-37 [facility] Comment on above: Performed By: #### 7 358844, [id number], [id number] ####[facility] (DEFAULT)[address] [place] [address] 08021 MCV (RBC) [Entitic vol] 97 fL Normal 81-100 [facility] Comment on above: Performed By: #### 7 622330, 92380839, [id number] ####[facility] (DEFAULT)[address] [place] [address] 22367 Platelet 336 x10 Normal 138-427 [facility] Comment on above: Performed By: #### 7 542853, 22613790, [id number] ####[facility] (DEFAULT)[address] [place] [address] 55295 Platelet mean volume (Bld) [Entitic vol] 7.2 fL Normal 6.3-10.2 [facility] Comment on above: Performed By: #### 7 000433, 89366571, [id number] ####[facility] (DEFAULT)[address] [place] [address] 21026 RBC 3.77 x10 Normal 3.70-5.30 [facility] Comment on above: Performed By: #### 7 993545, 00610045, [id number] ####[facility] (DEFAULT)[address] [place] [address] 56499 WBC 6.7 x10 Normal 3.5-10.5 [facility] Comment on above: Performed By: #### 7 451767, 26384229, [id number] ####[facility] (DEFAULT)[address] [place] [address] UA w Culture if Ind Standard on 06-29-2022 Breakpoint UA [facility] Comment on above: Performed By: #### 1 [id number] #### [facility] (DEFAULT) [address] [place] [address] Color (U) Yellow [facility] Comment on above: Performed By: #### 1 [id number] #### [facility] (DEFAULT) [address] [place] [address] Culture? Not Indicated Invalid Interpretation Code [facility] Comment on above: Result Comment: Resu lt created by rule GL_MAGR_ADD_UA_[id number] Performed By: #### 1 [id number] #### [facility] (DEFAULT) [address] [place] [address] Glucose (U) [Mass/Vol] Negative [facility] Comment on above: Performed By: #### 1 [id number] #### [facility] (DEFAULT) [address] [place] [address] Ketones Ql (U) Negative [facility] Comment on above: Performed By: #### 1 [id number] #### [facility] (DEFAULT) [address] [place] [address] 71495 Micro? Not Indicated Invalid Interpretation Code [facility] Comment on above: Result Comment: Resu lt created by rule GL_MAGR_ADD_UA_MICRO Performed By: #### 1 [id number] #### [facility] (DEFAULT) [address] [place] [address] 25752 UA Bilirubin Negative [facility] Comment on above: Performed By: #### 1 [id number] #### [facility] (DEFAULT) [address] [place] [address] 84836 UA Blood Negative Normal [facility] Comment on above: Performed By: #### 1 [id number] #### [facility] (DEFAULT) [address] [place] [address] UA Clarity CLEAR Normal CLEAR [facility] Comment on above: Performed By: #### 1 [id number] #### [facility] (DEFAULT) [address] [place] [address] UA Leuk Est Negative Normal NEGATIVE [facility] Comment on above: Performed By: #### 1 [id number] #### [facility] (DEFAULT) [address] [place] [address] UA Nitrite Negative Normal NEGATIVE [facility] Comment on above: Performed By: #### 1 [id number] #### [facility] (DEFAULT) [address] [place] [address] UA pH 6.[address] [place] [address] Comment on above: Performed By: #### 1 [id number] #### [facility] (DEFAULT) [address] [place] [address] UA Protein Negative Normal [facility] Comment on above: Performed By: #### 1 [id number] #### [facility] (DEFAULT) [address] [place] [address] UA Spec Grav 1.010 Normal 1.001-1.[address] [place] [address] Comment on above: Performed By: #### 1 [id number] #### [facility] (DEFAULT) [address] [place] [address] UA Urobilinogen 0.2 mg/dL Normal 0.2-1.0 [facility] Comment on above: Performed By: #### 1 [id number] #### [facility] (DEFAULT) [address] [place] [address] Urine Source Clean Catch Normal [facility] Comment on above: Performed By: #### 1 [id number] #### [facility] (DEFAULT) [address] [place] [address] MRI Shoulder w/o Lefton 04-15 MRI Shoulder w/o Left HISTORY: Left shoulder pain. History of prior rotator cuff surgery 12 years ago. No recent injury. TECHNIQUE: Routine non-contrast MRI of the shoulder , left side COMPARISON: Radiographs 08/19/2021. RESULT: Rotator Cuff Tendons: Changes from prior rotator cuff repair. Mild to moderate tendinosis involving supraspinatus, infraspinatus, and subscapularis, without evidence for tear. Reactive cystic change at the supraspinatus and infraspinatus insertions. Teres minor appears intact. Long Head Biceps Tendon: Intact with appropriate location. Muscle: Muscle bulk and signal intensity are within normal limits. Labrum: Diffuse fraying. Bones and Marrow: No evidence of fracture or bone marrow replacing process. Glenohumeral Joint: Osteophytes without distinct full-thickness chondral defect. No synovitis. Acromioclavicular Joint: Mild degenerative changes. Other: No other significant abnormality. IMPRESSION: Rotator cuff tendinosis and changes from prior rotator cuff repair without evidence for tear. Report reported and signed by Adarsh Adams on 05/11/[address] [facility] SCREENING MAMMOGRAM W/ARABELLA, BILATERAL*on 11-20-2021 SCREENING MAMMOGRAM W/ARABELLA, BILATERAL* COMPARISON: October 13, 2020, October 10, 2019, September 22, 2018 TECHNIQUE: 2D and 3D Tomosynthesis of the right and left breasts was performed. FINDINGS: Breast composition demonstrates scattered fibroglandular densities. Overall appearance is stable. No suspicious microcalcifications, asymmetry, architectural distortion, or associated features are present. IMPRESSION: BIRADS 1: Negative mammogram Board Certified Radiologist. Accredited by the ACR and FDA. MAMMOGRAPHY IS VERY IMPORTANT TO YOUR HEALTH. THE CURRENT [place] [employer] GUIDELINES RECOMMENDS ANNUAL MAMMOGRAPHY BEGINNING AT AGE 40 THIS FACILITY USES A REMINDER SYSTEM TO ENSURE ALL PATIENTS RECEIVE REMINDER NOTIFICATIONS AT THE APPROPRIATE TIME BASED ON THE RECOMMENDATIONS OF THIS EXAM. Report reported and signed by Alejandro Forte on 11/20/[address] [facility] Comprehensive Metabolic Pane george 06-10-2021 Albumin [Mass/Vol] 4.2 g/dL Normal 3.6-5.1 [facility] Comment on above: Performed By: #### C JARVIS DONIS #### [facility] [address] [place], [place] [id number] Albumin/Globulin [Mass ratio] 1.7 {ratio} Normal 1.0-2.5 [facility] Comment on above: Performed By: #### C JARVIS DONIS #### [facility] [address] [place], [place] [id number] ALP [Catalytic activity/Vol] 82 U/L Normal 35-119 [facility] Comment on above: Performed By: #### C JEWELS LIPD #### [facility] [address] [place], [place] [id number] ALT [Catalytic activity/Vol] 15 U/L Normal 6-33 [facility] Comment on above: Result Comment: 02/11 Female reference range changed. Performed By: #### C JEWELS LIPD #### [facility] [address] [place], [place] [id number] Anion gap [Moles/Vol] 15 mmol/L Normal 12-20 [facility] Comment on above: Result Comment: Effe ctive 03/19/2019 reference range changed. Performed By: #### C JEWELS LIPD #### [facility] [address] [place], [place] [id number] AST [Catalytic activity/Vol] 21 U/L Normal 9-34 [facility] Comment on above: Performed By: #### C JEWELS LIPD #### [facility] [address] [place], [place] [id number] BUN/CREA 28 Ratio High 6-22 [facility] Comment on above: Performed By: #### C JEWELS LIPD #### [facility] [address] [place], [place] [id number] Calcium [Mass/Vol] 9.3 mg/dL Normal 8.6-10.2 [facility] Comment on above: Performed By: #### C JEWELS LIPD #### [facility] [address] [place], [place] [id number] Chloride [Moles/Vol] 106 mmol/L Normal 98-107 [facility] Comment on above: Performed By: #### C JEWELS LIPD #### [facility] [address] [place], [place] [id number] CO2 [Moles/Vol] 24 mmol/L Normal 20-31 [facility] Comment on above: Performed By: #### C JEWELS LIPD #### [facility] [address] [place], [place] [id number] Creatinine [Mass/Vol] 1.1 mg/dL Normal 0.6-1.4 [facility] Comment on above: Performed By: #### C JEWELS LIPD #### [facility] [address] [place], [place] [id number] eGFRAA 58 mL/min/1.73m2 Low >60 [facility] Comment on above: Performed By: #### C JEWELS, LIPD #### [facility] [address] [place], [place] [id number] eGFRNAA 48 mL/min/1.73m2 Low >60 [facility] Comment on above: Performed By: #### C JEWELS LIPD #### [facility] [address] [place], [place] [id number] Globulin (S) [Mass/Vol] 2.5 g/dL Normal 1.9-3.7 [facility] Comment on above: Performed By: #### C JEWELS LIPD #### [facility] [address] [place], [place] [id number] Glucose [Mass/Vol] 94 mg/dL Normal 65-99 [facility] Comment on above: Result Comment: For FASTING Glucose --- ADA reference ranges: Normal 65-99 mg/dl Prediabetes 100-125 Diabetes >/= 126 Performed By: #### C JEWELS LIPD #### [facility] [address] [place], [place] [id number] Potassium [Moles/Vol] 4.4 mmol/L Normal 3.5-5.5 [facility] Comment on above: Performed By: #### C JEWELS, LIPD #### [facility] [address] [place], [place] [id number] Protein [Mass/Vol] 6.7 g/dL Normal 6.1-8.1 [facility] Comment on above: Performed By: #### C JEWELS LIPD #### [facility] [address] [place], [place] [id number] Sodium [Moles/Vol] 141 mmol/L Normal 135-146 [facility] Comment on above: Performed By: #### C JEWELS, LIPD #### [facility] [address] [place], [place] [id number] TBIL <0.3 Normal [facility] Comment on above: Performed By: #### C MP, LIPD #### [facility] [address] [place], [place] [id number] Urea nitrogen [Mass/Vol] 32 mg/dL High 7-25 [facility] Comment on above: Performed By: #### C MP, LIPD #### [facility] [address] [place], [place] [id number] Lipid Panelon 06-10-2021 Cholesterol [Mass/Vol] 237 mg/dL High 125-200 [facility] Comment on above: Result Comment: Low risk < 200mg/dL Borderline risk 201-239 mg/dl High risk > or equal to 240 Performed By: #### C MP, LIPD #### [facility] [address] [place], [place] [id number] Cholesterol in HDL [Mass/Vol] 100 mg/dL Normal >40 [facility] Comment on above: Result Comment: High Cardiovascular Risk HDL <40 mg/dL Low Cardiovascular Risk HDL > or equal to 60 mg/dl Performed By: #### C MP, LIPD #### [facility] [address] [place], [place] [id number] Cholesterol in LDL [Mass/Vol] 124 mg/dL Normal [facility] Comment on above: Result Comment: LDL ATP III CLASSIFICATION LDL less than 100 mg/dl Optimal LDL 100-129 mg/dl Near or above optimal LDL 130-159 Borderline high LDL 160-189 High LDL greater than 189 mg/dl Very High Performed By: #### C MP, LIPD #### [facility] [address] [place], [place] [id number] Cholesterol in VLDL [Mass/Vol] 13 mg/dL Normal [facility] Comment on above: Performed By: #### C MP, LIPD #### [facility] [address] [place], [place] [id number] Cholesterol.total/Ch olesterol in HDL [Mass ratio] 2 {ratio} Normal [facility] Comment on above: Performed By: #### C MP, LIPD #### [facility] [address] [place], [place] [id number] Triglyceride [Mass/Vol] 67 mg/dL Normal 30-150 [facility] Comment on above: Result Comment: TRIG ATPIII CLASSIFICATIONS TRIG less than 150 mg/dl Normal TRIG 150-199 mg/dl Borderline High TRIG 200-500 mg/dl High TRIG greather than 500 mg/dl Very High Performed By: #### C JARVIS DONIS #### [facility] [address] [place], [place] [id number] ECHOCARDIO M/2D COMPLETEon 0 10-24-2020 ECHOCARDIO M/2D COMPLETE Patient: RADHA CUADRA Exam Date: 10/24/2020 : 1945 Gender:F Ordering : DR SHARI MCKEON M.D. Admission #: [id number] Family : Order #: [id number] CLICK HERE TO VIEW EXAM ECHOCARDIOGRAM REPORT PROCEDURE: CARDIO PULMONARY ECHOCARDIO M/2D COMP INDICATIONS: Mild Aortic Stenosis, Tricuspid valve insufficiency, HTN, COPD COMPARISON: None. DESCRIPTION: COMPLETE ECHOCARDIOGRAM Real-time transthoracic echocardiography with 2D, M-mode, spectral and color flow Doppler performed. QUALITY: Technical quality was good. LEFT VENTRICLE: Normal chamber size. Normal left ventricular wall thickness. No regional wall abnormalities. LV EF: Normal left ventricular ejection fraction, (>55%). DIASTOLIC: Normal diastolic function. ATRIAL SEPTUM: LEFT ATRIUM: Mildly dilated. RIGHT ATRIUM: Normal chamber size. RIGHT VENTRICLE: Normal chamber size. Normal systolic function. TRICUSPID VALVE: Normal mobility and thickness. No stenosis with trace regurgitation. No evidence of pulmonary hypertension. RVSP 25 mmHg MITRAL VALVE: Normal mobility and thickness. No evidence of mitral valve stenosis. There is no mitral annular calcification. Trace mitral regurgitation. AORTIC VALVE: Normal trileaflet appearance. Mildly calcified aortic valve. Mildly diminished mobility. Doppler velocity suggest mild aortic valve stenosis. DVI 0>61 with SUSANNE 1.93 cm2, mean gradient 12 mmHg. Mild aortic regurgitation. AORTIC ROOT: Normal diameter and appearance. PULMONIC VALVE: Normal thickness and mobility. No stenosis. No regurgitation. PERICARDIUM: No evidence of pericardial effusion. IVC: Collapses with inspirations. IVC normal in size. PLEURA: CONCLUSION: 1. Normal ventricular function. 2. Mild aortic stenosis and regurgitation. 3. Normal right sided pressures. Adult Echocardiography Procedure Report Left Ventricle LVEDD (3.7 - 5.6 cm): 3.83 cm LVESD (2.2 - 4.0 cm): 2.52 cm LVIVS thickness (0.6 - 1.2 cm): 1.02 cm LVPW thickness (0.5 - 1.0 cm): 7.79 mm e': 9.87 cm/s E - e': 7.50 LVOT Area (cm2): 3.14 cm2 LVOT Diameter 2.00 cm Left Ventricular Ejection Fraction: 63.90 % Left Atrium LA Volume Index (2D A2C): 23 ml/m2 Left Atrium Systolic Dimension: 3.70 cm Left Atrium Systolic Area(A2C): 13.90 cm2 Left Atrium Systolic Area(A4C): 13.90 cm2 Left Atrium Systolic Volume(A2C): 01046 mm3 Left Atrium Systolic Volume(A4C): 37723 mm3 Mitral Valve MV E to A Ratio: 1.10 Mitral Valve A-Wave Peak Velocity: 68.60 cm/s Mitral Valve E-Wave Peak Velocity: 74.50 cm/s Deceleration Time: 259 ms Right Ventricle Aorta AO Root Diam: 2.60 cm Aortic Valve Peak Velocity (Antegrade Flow): 161.00 cm/s, 230.00 cm/s AoV Area (Peak Daniel): 1.93 cm2 AoV Area (VTI): 1.90 cm2 Deceleration Putnam: 1880 mm/s2 Pressure Half-Time: 528 ms Peak Velocity: 339.00 cm/s Peak Gradient: 46 mm[Hg] Peak Velocity(Antegrade Flow): 231.00 cm/s Peak Gradient(Antegrade Flow): 21 mm[Hg] Mean Velocity(Antegrade Flow): 162.00 cm/s Mean Gradient(Antegrade Flow): 12 mm[Hg] Velocity Time Integral: 50.20 cm Tricuspid Valve Peak Velocity (Regurgitant Flow): 206.00 cm/s, 224.00 cm/s Pulmonic Valve Peak Velocity: 117.00 cm/s Peak Gradient: 5 mm[Hg] Right Atrium Dictated by: Teo Burrows M.D. on 10/24/2020 at 19:11 Approved by: Teo Burrows M.D. on 10/24/2020 at 19:17 Normal [facility] HEMOGLOBINon 09-30-2020 Hemoglobin (Bld) [Mass/Vol] 12.3 g/dL Normal 12.0-16.0 [facility] Comment on above: Performed By: #### H GB #### [facility] [address] [place], [place] [id number] Geraldo Gaitan H PYLORI TISSUEon 02-01-2020 H PYL TISSUE, UREASE Negative Normal NEGATIVE [facility] Comment on above: Performed By: #### H GB #### [facility] [address] [address] Geraldo Gaitan COVID-19 PCRon 01-27-2020 SARS-CoV-2 (COVID-19) RNA VIVIENNE+probe Ql (Unsp spec) Not detected Normal Not Detected [facility] Comment on above: Result Comment: This nucleic acid amplification test was developed and its performance characteristics determined by [employer]. Nucleic acid amplification tests include PCR and TMA. This test has not been FDA cleared or approved. This test has been authorized by FDA under an Emergency Use Authorization (EUA). This test is only authorized for the duration of time the declaration that circumstances exist justifying the authorization of the emergency use of in vitro diagnostic tests for detection of SARS-CoV-2 virus and/or diagnosis of COVID-19 infection under section 564(b)(1) of the Act, 21 U.S.C. 360bbb-3(b) (1), unless the authorization is terminated or revoked sooner. When diagnostic testing is negative, the possibility of a false negative result should be considered in the context of a patient's recent exposures and the presence of clinical signs and symptoms consistent with COVID-19. An individual without symptoms of COVID-19 and who is not shedding SARS-CoV-2 virus would expect to have a negative (not detected) result in this assay. Performed By: #### C VDSTAT, CVDPCR #### [facility] [address] [place] [address] Geraldo Gaitan PRIORITY COVID PROCESSINGon 01-27-2020 Comment Comment Normal [facility] Comment on above: Result Comment: Rece ived Performed By: #### C VDSTAT, CVDPCR #### [facility] [address] [id number] Geraldo Gaitan CULTURE BLOODon 01-08-2020 Microscopic examination of blood, culture Culture Observations: No growth in anaerobic bottle at 5 days Isolate 1 Escherichia coli Growth of ORGANISM 1 Escherichia coli ANTIBIOTIC M.I.C RX STATUS Ampicillin >=32 R F Ampicillin/Sulbactam 16 I F Piperacillin/Tazobactam <=4 S F Cefazolin <=4 S F Ceftazidime <=1 S F Ceftriaxone <=1 S F Ertapenem <=0.5 S F Imipenem <=0.25 S F Amikacin <=2 S F Gentamicin <=1 S F Tobramycin <=1 S F Ciprofloxacin <=0.25 S F Levofloxacin <=0.12 S F Trimethoprim/Sulfamethoxazol e <=20 S F Normal [facility] Comment on above: Performed By: #### H GB #### [facility] [address] [place] [address] Geraldo Charlesen BLOOD CULTURE ID PANELon A. baumannii Not detected Normal [facility] Comment on above: Performed By: #### B MIRYAM #### [facility] [address] [place] [address] Geraldo Charlesen BCID CONTROLS PASSED [facility] Comment on above: Performed By: #### B MIRYAM #### [facility] [address] [place] [address] Geraldo Charlesen BCIDBTHD BLOOD CULTURE BOTTLE INFORMATION [facility] Comment on above: Performed By: #### B MIRYAM #### [facility] [address] [place] [address] Geraldo Gaitan BCIDHD1 ANTIMICROBIAL RESIST ANCE GENES [facility] Comment on above: Performed By: #### B MIRYAM #### [facility] [address] [place] [address] Geraldo Gaitan BCIDHD2 SEE BELOW [facility] Comment on above: Result Comment: KPC- carbapenem resistance gene, mecA- methecillin resistance gene, van A/B- vancomycin resistance gene Note: Antimicrobial resitance can occur via multiple mechanisms. A Not Detected result for the Film[employer] antomicrobial resistance gene assays does not indicate antimicrobial susceptibility. Subculturing is required for specis identificationand susceptibility testing of isolates. Performed By: #### B MIRYAM #### [facility] [address] [place] [address] Geraldo Kandy BCIDHD3 Positive Normal [facility] Comment on above: Performed By: #### B MIRYAM #### [facility] [address] [place] [address] Geraldo Kandy BCIDHD3 Negative Normal [facility] Comment on above: Performed By: #### B MIRYAM #### [facility] [address] [place] [address] Geraldo Kandy BCIDHD5 YEAST Normal [facility] Comment on above: Performed By: #### B MIRYAM #### [facility] [address] [place] [address] Geraldo Kandy BCIDHD6 SEE BELOW [facility] Comment on above: Result Comment: Note : All genus and species BCID FilmArray results will be verified post subculturing via Maldi-Tof MS testing methodology. Performed By: #### B MIRYAM #### [facility] [address] [place] [address] Geraldo Kandy Bottle Set: Set 2 Normal [facility] Comment on above: Performed By: #### B MIRYAM #### [facility] [address] [place] [address] Geraldo Kandy Bottle: Aerobic Normal [facility] Comment on above: Performed By: #### B MIRYAM #### [facility] [address] [place] [address] Geraldo Kandy Naomi albicans Not detected Normal [facility] Comment on above: Performed By: #### B MIRYAM #### [facility] [address] [place] [address] Geraldo Kandy Naomi glabrata Not detected Normal [facility] Comment on above: Performed By: #### B MIRYAM #### [facility] [address] [place] [address] Geraldo Kandy Naomi Krusei Not detected Normal [facility] Comment on above: Performed By: #### B MIRYAM #### [facility] [address] [place] [address] Geraldo Kandy Naomi Parapsilosis Not detected Normal [facility] Comment on above: Performed By: #### B MIRYAM #### [facility] [address] [place] [address] Geraldo Kandy Naomi Tropicalis Not detected Normal [facility] Comment on above: Performed By: #### B MIRYAM #### [facility] [address] [place] [address] Geraldo Kandy E. Cloacae complex Not detected Normal [facility] Comment on above: Performed By: #### B MIRYAM #### [facility] [address] [place] [address] Geraldo Kandy Enterobacteriaceae Detected Invalid Interpretation Code [facility] Comment on above: Performed By: #### B MIRYAM #### [facility] [address] [place] [address] Geraldo Kandy Enterococcus Not detected Normal [facility] Comment on above: Performed By: #### B MIRYAM #### [facility] [address] [place] [address] Geraldo Kandy Escheria coli Detected Normal [facility] Comment on above: Performed By: #### B MIRYAM #### [facility] [address] [place] [address] Geraldo Kandy K. oxytoca Not detected Normal [facility] Comment on above: Performed By: #### B MIRYAM #### [facility] [address] [place] [address] Geraldo Kandy K. pneumoniae Not detected Normal [facility] Comment on above: Performed By: #### B MIRYAM #### [facility] [address] [place] [address] Geraldo Kandy KPC Resistant Gene Not detected Normal [facility] Comment on above: Performed By: #### B MIRYAM #### [facility] [address] [place] [address] Geraldo Kandy List. monocytogenes Not detected Normal [facility] Comment on above: Performed By: #### B MIRYAM #### [facility] [address] [place] [address] Geraldo Kandy mecA Resistant Gene Not detected Normal [facility] Comment on above: Performed By: #### B MIRYAM #### [facility] [address] [place] [address] Geraldo Kandy Proteus Not detected Normal [facility] Comment on above: Performed By: #### B MIRYAM #### [facility] [address] [place] [address] Geraldobhumi Gaitan Pseud. aeruginosa Not detected Normal [facility] Comment on above: Performed By: #### B MIRYAM #### [facility] [address] [place] [address] Geraldobhumi Gaitan Seratia marcescens Not detected Normal [facility] Comment on above: Performed By: #### B MIRYAM #### [facility] [address] [place] [address] Geraldo Gaitan Site: R AC Normal [facility] Comment on above: Performed By: #### B MIRYAM #### [facility] [address] [place] [address] Geraldo Kandy Staph. aureus Not detected Normal [facility] Comment on above: Performed By: #### B MIRYAM #### [facility] [address] [place] [address] Geraldo Gaitan Staphylococcus Not detected Normal [facility] Comment on above: Performed By: #### B MIRYAM #### [facility] [address] [place] [address] Geraldo Gaitan Strep. agalactiae Not detected Normal [facility] Comment on above: Performed By: #### B MIRYAM #### [facility] [address] [place] [address] Geraldobhumi Gaitan Strep. pneumoniae Not detected Normal [facility] Comment on above: Performed By: #### B MIRYAM #### [facility] [address] [place] [address] Geraldobhumi Charlesen Strep. pyogenes Not detected Normal [facility] Comment on above: Performed By: #### B MIRYAM #### [facility] [address] [place] [address] Geraldo Kandy Streptococcus Not detected Normal [facility] Comment on above: Performed By: #### B MIRYAM #### [facility] [address] [place] [address] Geraldo Gaitan Aicha/B Resist. Gene Not detected Normal [facility] Comment on above: Performed By: #### B MIRYAM #### [facility] [address] [id number] Geraldo Kandy CBC AUTO DIFFon 01-02-2020 BASO # 0.0 103/ul Normal 0.0-0.1 [facility] Comment on above: Performed By: #### C BC #### [facility] [address] [place], [place] [id number] Geraldo Kandy Basophils/100 WBC (Bld) 0.3 % Normal 0.2-2.0 [facility] Comment on above: Performed By: #### C BC #### [facility] [address] [place] [address] Geraldo Kandy EO # 0.0 103/ul Normal 0.0-0.7 [facility] Comment on above: Performed By: #### C BC #### [facility] [address] [place] [address] Geraldo Kandy Eosinophils/100 WBC (Bld) 0.3 % Critically low 0.9-7.0 [facility] Comment on above: Performed By: #### C BC #### [facility] [address] [place] [address] Geraldo Kandy Erythrocyte distribution width (RBC) [Ratio] 12.6 % Normal 11.0-15.0 [facility] Comment on above: Performed By: #### C BC #### [facility] [address] [place] [address] Geraldo Kandy Hematocrit (Bld) [Volume fraction] 42.7 % Normal 36.0-48.0 [facility] Comment on above: Performed By: #### C BC #### [facility] [address] [place] [address] Geraldo Kandy Hemoglobin (Bld) [Mass/Vol] 13.6 g/dL Normal 12.0-16.0 [facility] Comment on above: Performed By: #### C BC #### [facility] [address] [place] [address] Geraldo Kandy IG # 0.04 10e3/ul Critically high 0.00-0.03 [facility] Comment on above: Performed By: #### C BC #### [facility] [address] [place], [place] [id number] Geraldobhumi Gaitan IG % 0.3 % Normal 0.0-0.5 [facility] Comment on above: Performed By: #### C BC #### [facility] [address] [place] [address] Geraldobhumi Gaitan LYMPH # 0.5 103/ul Critically low 1.2-3.8 [facility] Comment on above: Performed By: #### C BC #### [facility] [address] [place] [address] Geraldo Gaitan Lymphocytes/100 WBC (Bld) 4.4 % Critically low 20.5-60.0 [facility] Comment on above: Performed By: #### C BC #### [facility] [address] [place] [address] Geraldo Gaitan MANUAL DIFF REQ NO Normal [facility] Comment on above: Performed By: #### C BC #### [facility] [address] [place] [address] Geraldo Gaitan MCH (RBC) [Entitic mass] 30.6 pg Normal 26.7-34.0 [facility] Comment on above: Performed By: #### C BC #### [facility] [address] [place] [address] Geraldo Gaitan MCHC (RBC) [Mass/Vol] 31.9 g/dL Normal 29.9-35.2 [facility] Comment on above: Performed By: #### C BC #### [facility] [address] [place] [address] Geraldobhumi Gaitan MCV (RBC) [Entitic vol] 96.0 fL Normal 81.0-99.0 [facility] Comment on above: Performed By: #### C BC #### [facility] [address] [place] [address] Geraldo Kandy MONO # 0.8 103/ul Normal 0.3-0.8 [facility] Comment on above: Performed By: #### C BC #### [facility] [address] [place] [address] Geraldo Gaitan Monocytes/100 WBC (Bld) 6.5 % Normal 1.7-12.0 [facility] Comment on above: Performed By: #### C BC #### [facility] [address] [place] [address] Geraldo Gaitan NEUT # 10.1 103/ul Critically high 1.4-6.5 [facility] Comment on above: Performed By: #### C BC #### [facility] [address] [place] [address] Geraldo Gaitan Neutrophils/100 WBC (Bld) 88.2 % Critically high 43.0-75.0 [facility] Comment on above: Performed By: #### C BC #### [facility] [address] [place] [address] Geraldo Gaitan Platelet mean volume (Bld) [Entitic vol] 9.8 fL Normal 9.5-13.5 [facility] Comment on above: Performed By: #### C BC #### [facility] [address] [place] [address] Geraldo Gaitan PLT 254 103/ul Normal 150-450 [facility] Comment on above: Performed By: #### C BC #### [facility] [address] [place], [place] [id number] Geraldo Gaitan RBC 4.45 106/ul Normal 4.20-5.40 [facility] Comment on above: Performed By: #### C BC #### [facility] [address] [place], [place] [id number] Geraldo Gaitan CT HEAD WO CONon 01-02-2020 CT HEAD WO CON EXAMINATION: CT HEAD WO CON HISTORY: Frontal headache for the last 24 hours. COMPARISON: CT head, 05/02/2015. TECHNIQUE: CT examination of the head without IV contrast. Dose reduction techniques were achieved by using automated exposure control and/or adjustment of mA and/or kV according to patient size and/or use of iterative reconstruction technique. FINDINGS: No intracranial hemorrhage, acute ischemia, vasogenic edema, mass effect or midline shift is seen. Age-related atrophy is noted. The ventricles and extra-axial CSF spaces appear within normal limits. The calvarium and imaged facial bones appear intact. Mild right ethmoid and bilateral sphenoid mucosal thickening is noted. The remaining paranasal sinuses and the bilateral mastoid air cells are otherwise clear. IMPRESSION: 1. No acute intracranial process. 2. Mild chronic-appearing bilateral sphenoid and right ethmoid sinusitis. Electronically authenticated by: REMY NESS Date: 2020-01-02 19:00 Normal [facility] CULTURE BLOODon 01-02-2020 Microscopic examination of blood, culture Culture Observations: No growth at 5 days Normal [facility] Comment on above: Performed By: #### H SAKINA #### [facility] [address] [place] [address] Geraldo Kandy CULTURE URINEon 01-02-2020 CULTURE URINE Culture Observations : Light growth of mixed genital eliezer.No potential pathogens seen. Normal [facility] Comment on above: Performed By: #### H SAKINA #### [facility] [address] [place] [address] Geraldo Kandy ER URINE PROFILEon 0 Bilirubin Ql (U) Negative Normal NEGATIVE [facility] Comment on above: Performed By: #### MELODY CORDOVA #### [facility] [address] [place] [address] Geraldo Kandy Clarity (U) SL CLOUDY Normal [facility] Comment on above: Performed By: #### KANDICE CORDOVARO #### [facility] [address] [place] [address] Geraldo Kandy Color (U) LT. YELLOW Normal YELLOW [facility] Comment on above: Performed By: #### MELODY CORDOVA #### [facility] [address] [place] [address] Geraldo Kandy ERUAHD A micrscopic examina tion will be performed if indicated. Normal [facility] Comment on above: Performed By: #### MELODY CORDOVA #### [facility] [address] [place] [address] Geraldo Kandy Glucose Ql (U) Negative Normal NEGATIVE [facility] Comment on above: Performed By: #### MELODY CORDOVA #### [facility] [address] [place] [address] Geraldo Kandy Hemoglobin Ql (U) SMALL Normal NEGATIVE [facility] Comment on above: Performed By: #### MELODY CORDOVA #### [facility] [address] [place] [address] Geraldo Kandy Ketones Ql (U) Negative Normal NEGATIVE [facility] Comment on above: Performed By: #### MELODY CORDOVA #### [facility] [address] [place] [address] Geraldo Kandy LEUKOCYTES TRACE Normal NEGATIVE [facility] Comment on above: Performed By: #### MELODY CORDOVA #### [facility] [address] [place] [address] Geraldo Kandy Nitrite Ql (U) Negative Normal NEGATIVE [facility] Comment on above: Performed By: #### MELODY CORDOVA #### [facility] [address] [place] [address] Geraldo Kandy pH (U) 7.0 [pH] Normal 5-9 [facility] Comment on above: Performed By: #### MELODY CORDOVA #### [facility] [address] [place] [address] Geraldo Kandy Protein Ql (U) 30 mg/dl Normal [facility] Comment on above: Performed By: #### MELODY CORDOVA #### [facility] [address] [place] [address] Geraldo Kandy SPEC GRAVITY 1.015 Normal 1.005-<=1. 025 [facility] Comment on above: Performed By: #### MELODY CORDOVA #### [facility] [address] [place] [address] Geraldo Kadny UR MICRO IND INDICATED Normal [facility] Comment on above: Performed By: #### MELODY CORDOVA #### [facility] [address] [place] [address] Geraldo Kandy Urobilinogen Qn (U) 0.2 {Eileen'U}/dL Normal [facility] Comment on above: Performed By: #### MELODY CORDOVA #### [facility] [address] [place] [address] Geraldo Kandy LACTATE/LACTIC ACIDon 2019 Lactate [Moles/Vol] 1.1 mmol/L Normal 0.7-2.0 [facility] Comment on above: Performed By: #### H GB #### [facility] [address] [place] [address] Geraldo Kandy PROCALCITONINon 01-02-2020 PCT header 1 SEE BELOW Normal [facility] Comment on above: Result Comment: PCT <0.5ng/mL: Systemic infection (sepsis) is not likely, local bacterial infection possible, low risk for progression to severe systemic infection (severe sepsis) Performed By: #### P RL #### [facility] [address] [place] [address] Geraldo Kandy PCT header 2 SEE BELOW Normal [facility] Comment on above: Result Comment: PCT >/=0.5 and <2 ng/mL: Systemic infection (sepsis) is possible, moderate risk for progression to severe systemic infection (severe sepsis) Performed By: #### P RL #### [facility] [address] [place] [address] Geraldo Kandy PCT header 3 SEE BELOW Normal [facility] Comment on above: Result Comment: PCT >/=2.0 and <10 ng/mL: Systemic infection (sepsis) is likely, unless other causes are known, high risk for progession to severe systemic infection(severe sepsis) Performed By: #### P RL #### [facility] [address] [place] [address] Geraldo Kandy PCT header 4 SEE BELOW Normal [facility] Comment on above: Result Comment: PCT >/= 10 ng/mL: Important systemic inflammatory response almost exclusively due to severe bacterial sepsis or septic shock, high likelihood of severe sepsis or septic shock Performed By: #### P RL #### [facility] [address] [place] [address] Geraldo Kandy PROCALCITONIN 0.62 ng/mL Critically high 0.00-0.50 [facility] Comment on above: Performed By: #### P RL #### [facility] [address] [place] [address] Geraldo Kandy PROF 14(COMP METB)on 020 Albumin [Mass/Vol] 3.6 g/dL Normal 3.5-5.0 [facility] Comment on above: Performed By: #### C MP #### [facility] [address] [place], [place] [id number] Geraldo Kandy Albumin/Globulin [Mass ratio] 0.8 {ratio} Normal [facility] Comment on above: Performed By: #### C MP #### [facility] [address] [place] [address] Geraldo Kandy ALP [Catalytic activity/Vol] 95 U/L Normal 38-126 [facility] Comment on above: Performed By: #### C MP #### [facility] [address] [place] [address] Geraldo Kandy ALT [Catalytic activity/Vol] 32 U/L Normal 9-52 [facility] Comment on above: Performed By: #### C MP #### [facility] [address] [place] [address] Geraldo Kandy Anion gap [Moles/Vol] 13.8 mmol/L Normal [facility] Comment on above: Performed By: #### C MP #### [facility] [address] [place] [address] Geraldo Kandy AST [Catalytic activity/Vol] 42 U/L Critically high 14-36 [facility] Comment on above: Performed By: #### C MP #### [facility] [address] [place] [address] Geraldo Kandy Bilirubin [Mass/Vol] 0.5 mg/dL Normal 0.2-1.3 [facility] Comment on above: Performed By: #### C MP #### [facility] [address] [place] [address] Geraldo Kandy Calcium [Mass/Vol] 9.4 mg/dL Normal 8.4-10.2 [facility] Comment on above: Performed By: #### C MP #### [facility] [address] [place] [address] Geraldo Kandy Chloride [Moles/Vol] 100 mmol/L Normal 98-107 [facility] Comment on above: Performed By: #### C MP #### [facility] [address] [address] Geraldo Kandy CO2 [Moles/Vol] 24.6 mmol/L Normal 22.0-30.0 [facility] Comment on above: Performed By: #### C MP #### [facility] [address] [address] Geraldo Kandy Creatinine [Mass/Vol] 1.36 mg/dL Critically high 0.52-1.04 [facility] Comment on above: Performed By: #### C MP #### [facility] [address] [address] Geraldo Kandy EGFR-AF IRANIAN 46 mL/min/1.73m2 Critically low >=60 [facility] Comment on above: Performed By: #### C MP #### [facility] [address] [address] Geraldo Kandy EGFR-NON AF IRANIAN 38 mL/min/1.73m2 Critically low >=60 [facility] Comment on above: Performed By: #### C MP #### [facility] [address] [address] Geraldo Kandy Globulin (S) [Mass/Vol] 4.5 g/dL Normal [facility] Comment on above: Performed By: #### C MP #### [facility] [address] [address] Geraldo Kandy Glucose [Mass/Vol] 120 mg/dL Critically high 74-106 T [facility] Comment on above: Performed By: #### C MP #### [facility] [address] [address] Geraldo Kandy Potassium [Moles/Vol] 3.4 mmol/L Normal 3.4-5.0 [facility] Comment on above: Performed By: #### C MP #### [facility] [address] [address] Geraldo Kandy Protein [Mass/Vol] 8.1 g/dL Normal 6.1-8.2 [facility] Comment on above: Performed By: #### C MP #### [facility] [address] [place] [address] Geraldo Kandy Sodium [Moles/Vol] 135 mmol/L Critically low 137-145 [facility] Comment on above: Performed By: #### C MP #### [facility] [address] [place] [address] Geraldo Kandy Urea nitrogen [Mass/Vol] 22.0 mg/dL Critically high 7.0-17.0 [facility] Comment on above: Performed By: #### C MP #### [facility] [address] [place] [address] Geraldo Kandy Urea nitrogen/Creatinine [Mass ratio] 16.2 mg/mg Normal [facility] Comment on above: Performed By: #### C MP #### [facility] [address] [place] [address] Geraldo Kandy RESPIRATORY PANEL PLUSon Adenovirus Not detected Normal NOT DETECTED [facility] Comment on above: Performed By: #### R SPLUS #### [facility] [address] [place] [address] Geraldo Kandy B. Parapertusis Not detected Normal NOT DETECTED [facility] Comment on above: Performed By: #### R SPLUS #### [facility] [address] [place] [address] Geraldo Kandy B. Pertussis Not detected Normal NOT DETECTED [facility] Comment on above: Performed By: #### R SPLUS #### [facility] [address] [place] [address] Geraldo Kandy Chlamydia Pneumoniae Not detected Normal NOT DETECTED [facility] Comment on above: Performed By: #### R SPLUS #### [facility] [address] [place] [address] Geraldo Kandy Coronavirus 229E Not detected Normal NOT DETECTED [facility] Comment on above: Performed By: #### R SPLUS #### [facility] [address] [place] [address] Geraldo Kandy Coronavirus HKU1 Not detected Normal NOT DETECTED [facility] Comment on above: Performed By: #### R SPLUS #### [facility] [address] [place] [address] Geraldo Kandy Coronavirus NL63 Not detected Normal NOT DETECTED [facility] Comment on above: Performed By: #### R SPLUS #### [facility] [address] [place] [address] Geraldo Kandy Coronavirus OC43 Not detected Normal NOT DETECTED [facility] Comment on above: Performed By: #### R SPLUS #### [facility] [address] [place] [address] Geraldo Kandy Influenza A H1 2009 Not detected Normal NOT DETECTED [facility] Comment on above: Performed By: #### R SPLUS #### [facility] [address] [place] [address] Geraldo Kandy Influenza B Not detected Normal NOT DETECTED [facility] Comment on above: Performed By: #### R SPLUS #### [facility] [address] [place] [address] Geraldo Kandy Metapneumovirus Not detected Normal NOT DETECTED [facility] Comment on above: Performed By: #### R SPLUS #### [facility] [address] [place] [address] Geraldo Kandy Mycoplas. Pneumoniae Not detected Normal NOT DETECTED [facility] Comment on above: Performed By: #### R SPLUS #### [facility] [address] [place] [address] Geraldo Kandy Parainfluenza 1 Not detected Normal NOT DETECTED [facility] Comment on above: Performed By: #### R SPLUS #### [facility] [address] [place] [address] Geraldo Kandy Parainfluenza 2 Not detected Normal NOT DETECTED [facility] Comment on above: Performed By: #### R SPLUS #### [facility] [address] [place] [address] Geraldo Kandy Parainfluenza 3 Not detected Normal NOT DETECTED [facility] Comment on above: Performed By: #### R SPLUS #### [facility] [address] [place] [address] Geraldo Kandy Parainfluenza 4 Not detected Normal NOT DETECTED [facility] Comment on above: Performed By: #### R SPLUS #### [facility] [address] [place] [address] Geraldo Kandy Rhino/Enterovirus Not detected Normal NOT DETECTED [facility] Comment on above: Performed By: #### R SPLUS #### [facility] [address] [place] [address] Geraldo Kandy RP2 Header 1 RESPIRATORY PANEL: VIRUSES Normal [facility] Comment on above: Performed By: #### R SPLUS #### [facility] [address] [place] [address] Geraldo Kandy RP2 Header 2 RESPIRATORY PANEL: BACTERIA Normal [facility] Comment on above: Performed By: #### R SPLUS #### [facility] [address] [place] [address] Geraldo Kandy RP2 Header 4 EUA SEE BELOW Normal [facility] Comment on above: Result Comment: This test is not yet approved or cleared by the [place] FDA. When there are no FDA-approved or cleared tests available, and other criteria are met, FDA can make tests available under an emergency access mechanism called an Emergency Use Authorization (EUA). The EUA for this test is supported by the Health Safety Instructor of Health and Human Service?s (HHS?s) declaration that circumstances exist to justify the emergency use of in vitro diagnostics for the detection and/or diagnosis of the virus that causes COVID-19. This EUA will remain in effect (meaning this test can be used) for the duration of the COVID-19 declaration justifying emergency of IVDs, unless it is terminated or revoked by FDA (after which the test may no longer be used). Performed By: #### R SPLUS #### [facility] [address] [place] [address] Geraldo Kandy RSV Not detected Normal NOT DETECTED [facility] Comment on above: Performed By: #### R SPLUS #### [facility] [address] [place] [address] Geraldo Kandy SARS-CoV-2 (COVID-19) RNA VIVIENNE+probe Ql (Unsp spec) Not detected Normal NOT DETECTED [facility] Comment on above: Performed By: #### R SPLUS #### [facility] [address] [place] [address] Geraldo Gaitan URINE MICROSCOPIC ONLYon BACTERIA MODERATE Normal NONE SEEN [facility] Comment on above: Performed By: #### MELODY CORDOVA #### [facility] [address] [place] [address] Geraldo Gaitan Bacteria identified Cx Nom (U) INDICATED Normal [facility] Comment on above: Performed By: #### MELODY CORDOVA #### [facility] [address] [place] [address] Geraldo Kandy CAST NONE SEEN Normal NONE SEEN [facility] Comment on above: Performed By: #### MELODY CORDOVA #### [facility] [address] [place] [address] Geraldo Gaitan Crystals LM Nom (Urine sed) NONE SEEN Normal NONE SEEN [facility] Comment on above: Performed By: #### MELODY CORDOVA #### [facility] [address] [place] [address] Geraldo Gaitan Epithelial cells LM Ql (Urine sed) RARE Normal [facility] Comment on above: Performed By: #### MELODY CORDOVA #### [facility] [address] [place] [address] Geraldo Kandy MUCOUS NONE SEEN Normal NONE SEEN [facility] Comment on above: Performed By: #### MELODY CORDOVA #### [facility] [address] [place] [address] Geraldo Kandy RBC 0-2 Normal 0-2 [facility] Comment on above: Performed By: #### KANDICE CORDOVARO #### [facility] [address] [place] [address] Geraldo Kandy WBC 5-10 Normal NONE SEEN [facility] Comment on above: Performed By: #### MELODY CORDOVA #### [facility] [address] [id number] Geraldo Gaitan XR CHEST 1 Von 01-02-2020 XR CHEST 1 V EXAM: XR CHEST 1 V HISTORY: COUGH COMPARISON: Chest, 09/15/2012. TECHNIQUE: AP chest radiograph. FINDINGS: Cardiac size, mediastinal contour and pulmonary vascularity are within normal limits. The lungs and pleural spaces are clear. A broad thoracic dextroscoliosis is noted. Anterior cervical fusion hardware appears unchanged. IMPRESSION: No acute cardiopulmonary disease. 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 Start: 04-21-2023 Refill Alexander marcum ENTRY LEVEL SALES REPRESENTATIVE Work Phone: [facility] Comment on above: Essential hypertensi on (CMS/[facility]) Start: 04-18-2023 End: 04-18-2023 ambulatory ALEXANDER APARICIO Not Available Start: 03-08-2023 End: 03-08-2023 ambulatory MARISA RAMOS Not Available Start: 03-01-2023 End: 03-02-2023 ambulatory MARISA A RICHARD Not Available Start: 02-22-2023 End: 02-22-2023 ambulatory MARISA A RICHARD Not Available Start: 02-08-2023 End: 02-08-2023 ambulatory MARISA A RICHARD Not Available Start: 02-01-2023 End: 02-02-2023 ambulatory MARISA A RICHARD Not Available Start: 01-28-2023 End: 01-29-2023 ambulatory SHARI MCKEON Not Available Start: 07-26-2022 End: 07-26-2022 ambulatory SHARI MCKEON Facility:[facility] Start: 06-29-2022 End: 06-30-2022 ambulatory SHARI MCKEON Facility:[facility] Start: 10-24-2020 End: 10-25-[address] SHARI MCKEON Facility:[facility] Start: 09-30-2020 End: 10-01-[address] SHARI MCKEON Facility:[facility] Start: 02-01-2020 End: 02-01-[address] CARLOS EDUARDO MENENDEZ Facility:[facility] Start: 01-30-2020 Encounter for preprocedural laboratory examination DR CARLOS EDUARDO MENENDEZ [facility] Start: 01-26-2020 End: 01-27-[address] SHARI MCKEON Facility:[facility] Start: 01-26-2020 End: 01-27-2020 Encounter for preprocedural laboratory examination DR SHARI MCKEON Facility:[facility] Start: 01-02-2020 End: 01-02-[address] BÁRBARA BLUE Facility:[facility] Start: 05-25-2018 End: 05-26-2018 Patient encounter procedure DEFAULT PHYSICIAN Facility:[facility] Plan of Treatment Date Care Activity Detail Author Start: 08-02-2023 End: 08-02-2023 Patient encounter procedure 08/02/2023 9:00 AM EDT Office Visit [facility] [address] [facility] [address] [place] [address] Marisa Ramos DO [address] [facility] [address] [place] [address] [facility] Start: 05-06-2023 Medicare Annual Wellness (AWV) Medicare Annual Wellness (AWV) [facility] Healthcare Immunizations Immunization Date Immunization Notes Care Provider Fa cili 12-23-2022 Influenza, High-dose Seasonal, Quadrivalent, Preservative Free Alexander Hackenburg ENTRY LEVEL SALES REPRESENTATIVE Work Phone: [facility] 12-23-2022 SARS-COV-2 (COVID-19 ) vaccine, mRNA, spike protein, LNP, PF, 50 mcg/0.5 mL Alexander Hackenburg ENTRY LEVEL SALES REPRESENTATIVE Work Phone: [facility] 12-01-2021 Influenza, Seasonal, Quadrivalent, Adjuvanted Alexander Hackenburg ENTRY LEVEL SALES REPRESENTATIVE Work Phone: [facility] 12-01-2021 Seasonal, trivalent, recombinant, injectable influenza vaccine, preservative free Alexander Hackenburg ENTRY LEVEL SALES REPRESENTATIVE Work Phone: [facility] 12-16-2020 Influenza, High-dose Seasonal, Quadrivalent, Preservative Free Alexander Hackenburg ENTRY LEVEL SALES REPRESENTATIVE Work Phone: [facility] 02-14-2020 zoster vaccine recombinant Alexander Hackenburg ENTRY LEVEL SALES REPRESENTATIVE Work Phone: [facility] 12-07-2019 influenza, seasonal, injectable Alexander Hackenburg ENTRY LEVEL SALES REPRESENTATIVE Work Phone: [facility] 11-13-2019 influenza, injectabl e, quadrivalent, preservative free Alexander Hackenburg ENTRY LEVEL SALES REPRESENTATIVE Work Phone: [facility] 11-13-2019 zoster vaccine recombinant Alexander Hackenburg ENTRY LEVEL SALES REPRESENTATIVE Work Phone: [facility] 11-12-2019 zoster vaccine recombinant Alexander Hackenburg ENTRY LEVEL SALES REPRESENTATIVE Work Phone: [facility] 11-29-2018 Seasonal trivalent influenza vaccine, adjuvanted, preservative free Alexander Hackenburg ENTRY LEVEL SALES REPRESENTATIVE Work Phone: [facility] 11-30-2017 influenza, high dose seasonal, preservative-free Alexander Hackenburg ENTRY LEVEL SALES REPRESENTATIVE Work Phone: [facility] 11-24-2017 Seasonal trivalent influenza vaccine, adjuvanted, preservative free Alexander Hackenburg ENTRY LEVEL SALES REPRESENTATIVE Work Phone: [facility] 11-18-2016 influenza, high dose seasonal, preservative-free Alexander Hackenburg ENTRY LEVEL SALES REPRESENTATIVE Work Phone: [facility] Work Phone: 11-18-2016 pneumococcal conjuga te vaccine, 13 valent Alexander Hackenburg ENTRY LEVEL SALES REPRESENTATIVE Work Phone: [facility] 11-18-2016 Seasonal trivalent influenza vaccine, adjuvanted, preservative free Alexander Hackenburg ENTRY LEVEL SALES REPRESENTATIVE Work Phone: [facility] 11-18-2016 tetanus toxoid, redu greg diphtheria toxoid, and acellular pertussis vaccine, adsorbed Alexander Hackenburg ENTRY LEVEL SALES REPRESENTATIVE Work Phone: [facility] 11-12-2016 pneumococcal polysaccharide vaccine, 23 valent Alexander Hackenburg ENTRY LEVEL SALES REPRESENTATIVE Work Phone: [facility] 12-11-2015 influenza, high dose seasonal, preservative-free Alexander Hackenburg ENTRY LEVEL SALES REPRESENTATIVE Work Phone: [facility] 12-30-2014 influenza virus vaccine, whole virus Alexander Hackenburg ENTRY LEVEL SALES REPRESENTATIVE Work Phone: [facility] 12-30-2014 influenza, injectabl e, quadrivalent, preservative free Alexander Hackenburg ENTRY LEVEL SALES REPRESENTATIVE Work Phone: [facility] 05-10-2014 pneumococcal conjuga te vaccine, 13 valent Alexander Hackenburg ENTRY LEVEL SALES REPRESENTATIVE Work Phone: [facility] 12-13-2013 influenza virus vaccine, whole virus Alexander Hackenburg ENTRY LEVEL SALES REPRESENTATIVE Work Phone: [facility] 01-12-2013 pneumococcal Conjuga te, unspecified formulation Alexander Hackenburg ENTRY LEVEL SALES REPRESENTATIVE Work Phone: [facility] 01-12-2013 seasonal influenza, intradermal, preservative free Alexander Hackenburg ENTRY LEVEL SALES REPRESENTATIVE Work Phone: [facility] 12-27-2012 pneumococcal polysaccharide vaccine, 23 valent Alexander Hackenburg ENTRY LEVEL SALES REPRESENTATIVE Work Phone: [facility] Payers Date Payer Category Payer Unknown 2017 Medicare [employer]M MEDICARE ADVANTAGE [facility] MEDICARE ADVANTAGE [id number] 2017-Present [address] [place] [address] [id number] 1959 Unknown [id number] 1945 Unknown [id number] 1945 Unknown [id number] 1944 Unknown [id number] 2.16.840.1.547780.3.579.2.593 1944 Unknown [id number] 2.16.840.1.394859.3.579.2.593 1944 Unknown [id number] 2.16.840.1.658341.3.579.2.593 1944 Unknown [id number] 2.16.840.1.179415.3.579.2.593 1944 Unknown [id number] 2.16.840.1.997475.3.579.2.718 1944 Unknown [id number] 2.16.840.1.927630.3.579.2.718 1944 Unknown [id number] 2.16.840.1.308932.3.579.2.125 9 1944 Unknown [id number] 2.16.840.1.466926.3.579.2.125 9 1944 Unknown [id number] 2.16.840.1.364268.3.579.2.125 9 1944 Unknown [id number] 2.16.840.1.728058.3.579.2.125 9 1944 Unknown [id number] 2.16.840.1.009881.3.579.2.125 9 1944 Unknown [id number] 2.16.840.1.903639.3.579.2.125 9 1944 Unknown [id number] 2.16.840.1.775678.3.579.2.125 9 1944 Unknown [id number] 2.16.840.1.101649.3.579.2.125 9 1944 Unknown [id number] 2.16.840.1.202914.3.579.2.125 9 1944 Unknown [id number] 2.16.840.1.996866.3.579.2.125 9 1945 Unknown [id number] 2.16.840.1.318156.3.579.2.196 Social History Date Type Detail Facility [facility] Start: 09-17-2022 Tobacco use and exposure Smokeless t obacco non-user [facility] Start: 04-18-2023 Alcohol intake Current drinke r of alcohol (finding) [facility] Start: 10-15-2022 End: 04-18-2023 Alcohol intake [facility] Start: 10-15-2022 End: 04-18-2023 Tobacco use panel [facility] Start: 01-06-2023 Alcohol Comment Caffeine intak e: 1-2 cups per day [facility] Start: 1945 Sex Assigned At Not on file [facility] Telephone encounter Note 04-27-2023 Telephone Encounter - Pati Valentino - 04/27/2023 1:09 PM EST Note Date & Type Note Facility 04-27-2023 Telephone encount er Note Called pt and informed [facility] Note 04-27-2023 Telephone Encounter - Pati Valentino - 04/27/2023 1:09 PM ESTTelephone Encounter - Pati Valentino - 04/27/2023 12:51 PM EST Note Date & Type Note Facility 04-27-2023 Miscellaneous Notes Formattin g of this note might be different from the original. Called pt and informed Pt called stated she had LT TSA 07/26/22 and is getting a cavity filled and needs antibiotic called into [facility] in [place]. Allergies: NKDA . Her call back [phone] documented in this encounter [facility] Telephone encounter Note 04-27-2023 Telephone Encounter - Pati Valentino - 04/27/2023 12:51 PM EST Note Date & Type Note Facility 04-27-2023 Telephone encount er Note Pt called stated she had LT TSA 07/26/22 and is getting a cavity filled and [facility] [place]. Allergies: NKDA . Her call back [phone] [facility] Telephone encounter Note 04-21-2023 Telephone Encounter - Shari Mckeon MD - 04/21/2023 7:05 PM EST Note Date & Type Note Facility 04-21-2023 Telephone encount er Note Refills sent. [facility] Note 04-21-2023 Telephone Encounter - Shari Mckeon MD - 04/21/2023 7:05 PM EST Note Date & Type Note Facility 04-21-2023 Miscellaneous Notes Formattin g of this note might be different from the original. Refills sent. documented in this encounter [facility] History and physical note 07-27-2022 Note Date & Type Note Facility 07-27-2022 Note [phone] [id number] FF [facility] Clinical Note 07-26-2022 Note Date & Type Note Facility 07-26-2022 Note [facility] SURGERY Clinical Discharge Summary PERSON INFORMATION Name RADHA CUADRA Age 77 Years 1945 Sex FEMALE Language Romanian PCP SHARI MCKEON Marital Status Med Service Ambulatory Surgery Acct# Arrival 07/26/2022 05:52:10 Visit Reason SURGERY - LEFT REVERSE TOTAL SHOULDER - ARTHREX Acuity LOS 05 02:57 Address: [address] [place] [address] [place] [address] Comment: PROVIDER INFORMATION VITALS INFORMATION Vital Sign Triage Latest Temp Oral Temp Temporal Temp Intravascular Temp Axillary Temp Rectal 02 Sat 97 % 95 % Respiratory Rate Peripheral Pulse Rate Apical Heart Rate Blood Pressure / 77 mmHg / 69 mmHg Comment: MEDICAL INFORMATION Allergy Info: Fosamax Prescriptions Given: acetaminophen (Tylenol 8 HR Arthritis Pain 650 mg oral tablet, extended release) 2 tab(s) Oral 2 times a day as needed as needed for fever. aspirin (aspirin 81 mg oral delayed release tablet) 1 tab(s) Oral every day. atorvastatin (atorvastatin 20 mg oral tablet) 1 tab(s) Oral every day. calcium-vitamin D (Oyster Shell Calcium with Vitamin D 500 mg-5 mcg (200 intl units) oral tablet) 1 tab(s) Oral 2 times a day. ferrous sulfate (ferrous sulfate 325 mg (65 mg elemental iron) oral delayed release tablet) 1 tab(s) Oral every day. fluticasone-salmeterol (Advair Diskus 250 mcg-50 mcg inhalation powder) 1 puff(s) Inhalation 2 times a day. hydrochlorothiazide-losartan (hydrochlorothiazide-losartan 12.5 mg-100 mg oral tablet) 1 tab(s) Oral every day. melatonin (melatonin 5 mg oral tablet) 1 tab(s) Oral once a day (at bedtime) as needed for insomnia. Template Non-Formulary , Turmeric 1 tab(s) po bid Medication List: Medications to Continue That Have Not Changed Other Medications acetaminophen (Tylenol 8 HR Arthritis Pain 650 mg oral tablet, extended release) 2 tab(s) Oral 2 times a day as needed as needed for fever. aspirin (aspirin 81 mg oral delayed release tablet) 1 tab(s) Oral every day. atorvastatin (atorvastatin 20 mg oral tablet) 1 tab(s) Oral every day. calcium-vitamin D (Oyster Shell Calcium with Vitamin D 500 mg-5 mcg (200 intl units) oral tablet) 1 tab(s) Oral 2 times a day. ferrous sulfate (ferrous sulfate 325 mg (65 mg elemental iron) oral delayed release tablet) 1 tab(s) Oral every day. fluticasone-salmeterol (Advair Diskus 250 mcg-50 mcg inhalation powder) 1 puff(s) Inhalation 2 times a day. hydrochlorothiazide-losartan (hydrochlorothiazide-losartan 12.5 mg-100 mg oral tablet) 1 tab(s) Oral every day. melatonin (melatonin 5 mg oral tablet) 1 tab(s) Oral once a day (at bedtime) as needed for insomnia. Template Non-Formulary Medications to Continue That Have Not Changed Other Medications acetaminophen (Tylenol 8 HR Arthritis Pain 650 mg oral tablet, extended release) 2 tab(s) Oral 2 times a day as needed as needed for fever. aspirin (aspirin 81 mg oral delayed release tablet) 1 tab(s) Oral every day. atorvastatin (atorvastatin 20 mg oral tablet) 1 tab(s) Oral every day. calcium-vitamin D (Oyster Shell Calcium with Vitamin D 500 mg-5 mcg (200 intl units) oral tablet) 1 tab(s) Oral 2 times a day. ferrous sulfate (ferrous sulfate 325 mg (65 mg elemental iron) oral delayed release tablet) 1 tab(s) Oral every day. fluticasone-salmeterol (Advair Diskus 250 mcg-50 mcg inhalation powder) 1 puff(s) Inhalation 2 times a day. hydrochlorothiazide-losartan (hydrochlorothiazide-losartan 12.5 mg-100 mg oral tablet) 1 tab(s) Oral every day. melatonin (melatonin 5 mg oral tablet) 1 tab(s) Oral once a day (at bedtime) as needed for insomnia. Template Non-Formulary Medications to Continue That Have Not Changed Other Medications acetaminophen (Tylenol 8 HR Arthritis Pain 650 mg oral tablet, extended release) 2 tab(s) Oral 2 times a day as needed as needed for fever. aspirin (aspirin 81 mg oral delayed release tablet) 1 tab(s) Oral every day. atorvastatin (atorvastatin 20 mg oral tablet) 1 tab(s) Oral every day. calcium-vitamin D (Oyster Shell Calcium with Vitamin D 500 mg-5 mcg (200 intl units) oral tablet) 1 tab(s) Oral 2 times a day. ferrous sulfate (ferrous sulfate 325 mg (65 mg elemental iron) oral delayed release tablet) 1 tab(s) Oral every day. fluticasone-salmeterol (Advair Diskus 250 mcg-50 mcg inhalation powder) 1 puff(s) Inhalation 2 times a day. hydrochlorothiazide-losartan (hydrochlorothiazide-losartan 12.5 mg-100 mg oral tablet) 1 tab(s) Oral every day. melatonin (melatonin 5 mg oral tablet) 1 tab(s) Oral once a day (at bedtime) as needed for insomnia. Template Non-Formulary Comment: Lab and Radiology Results Laboratory or Other Results This Visit (last charted value for your 07/26/2022 visit) No Laboratory or Other Results This Visit DIET & ACTIVITY Patient Activity Level: Patient Diet: Patient Activity Restrictions: DISCHARGE INFORMATION Discharge Disposition: Discharge Location: DEPART REASON INCOMPLETE INFORMATION (more content not included)... [facility] Clinical Note 02-01-2020 Note Date & Type Note Facility 02-01-2020 Note OPERATIVE NOTE OPERATION DATE: 02/01/2020 PREOPERATIVE DIAGNOSIS: Dysphagia. POSTOPERATIVE DIAGNOSIS: Gastritis. PROCEDURE PERFORMED: Esophagogastroduodenoscopy with biopsy x1 from the antrum of stomach for Helicobacter pylori testing. SURGEON: Carlos Eduardo Menendez MD ANESTHESIA: Monitored anesthesia care. DISPOSITION: The patient was taken to the holding area in fair condition. PROCEDURE: Patient was brought into the Endoscopy Suite in the supine position. She was sedated by the nurse traffic i manager. Bite block was placed in her mouth. Gastroscope was lubricated and advanced through the bite block into the oropharynx and down the esophagus. There was no evidence of any strictures or lesions. Upon entering the stomach the gastric mucosa was moderately inflamed. There was no evidence of any ulcers or erosions. The endoscope was advanced through the pylorus and into the duodenum. The duodenal bulb and sweep appeared normal. The scope was then removed. The biopsy from the antrum of the stomach was obtained for HALEIGH test. Hemostasis was evident. There was no evidence of any gastric or esophageal varices. Once again, no strictures in the esophagus. The patient tolerated the procedure without any difficulties. [facility] SIGNED AND APPROVED BY: DR CARLOS EDUARDO MENENDEZ . 02/07/2020 09:15:00 [facility] Evaluation note Note Date & Type Note Facility Evaluation note Diagnosis Essential hypertension (CMS/HCC) Unspecified essential hypertension documented in this encounter [facility] Evaluation note Note Date & Type Note Facility Evaluation note Diagnosis S/P reverse total shoulder arthroplasty, left- Primary documented in this encounter [facility] Summary Purpose Family History No Family History Records FoundNo Family History Records FoundNo Family History Records FoundNo Family History Records FoundNo Family History Records FoundNo Family History Records Found Advance Directives No Advanced Directives Records FoundNo Advanced Directives Records FoundNo Advanced Directives Records FoundNo Advanced Directives Records FoundNo Advanced Directives Records FoundNo Advanced Directives Records Found Additional Source Comments INFORMATION SOURCE (unrecogn ized section and content) DATE CREATED AUTHOR 05/27/2018 [facility] DATE CREATED AUTHOR AUTHOR'S ORGANIZ ATION 11/06/2020 [facility] DATE CREATED AUTHOR AUTHOR'S ORGANIZ ATION 05/12/2022 [facility] Specialist DATE CREATED AUTHOR AUTHOR'S ORGANIZ ATION 07/28/2022 [facility] DATE CREATED AUTHOR AUTHOR'S ORGANIZ ATION 04/19/2023 [facility]ists EPIC DATE CREATED AUTHOR AUTHOR'S ORGANIZ ATION 07/13/2023 [facility] Reason for Visit (unrecogniz ed section and content) Reason Comments Med Refill Reason 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 Care Teams (unrecognized sec tion and content) Podopediatrician Relationship Specialty Start Date End Date Alexander Aparicio NP [address] [place] [address] PCP - Cristobal FIGUEROA 03/21/21 Shari Mckeon MD [address] [place] [address] PCP - General Family Medicine 07/26/22 Podopediatrician Relationship Specialty Start Date End Date Alexander Aparicio NP [address] [place] [address] PCP - Cristobal FIGUEROA 03/21/21 Shari Mckeon MD [address] [place] [address] PCP - General Family Medicine 07/26/22 FOR RECORDS PERTAINING TO PATIENTS WHO ARE OR HAVE BEEN ENROLLED IN A CHEMICAL DEPENDENCY/SUBSTANCEABUSE PROGRAM, SOME INFORMATION MAY BE OMITTED. This clinical summary was aggregated from multiple sources. Caution should be exercised in using it in the provision of clinical care. This summary normalizes information from multiple sources, and as a consequence, information in this document may materially change the coding, format and clinical context of patient data. In addition, data may be omitted in some cases. CLINICAL DECISIONS SHOULD BE BASED ON THE PRIMARY CLINICAL RECORDS. [facility] [employer]. provides no warranty or guarantee of the accuracy or completeness of information in this document.
[2023-07-25 06:58] VITALS: BP 114/60; PULSE 82; TEMP 36.5; O2SAT 98
[2023-07-25 07:37] VITALS: BP 135/63; PULSE 83; O2SAT 96
[2023-07-25 07:39] VITALS: BP 114/56; PULSE 86; O2SAT 94
[2023-07-25] MEDS: LIDOCAINE HCL 2% PF 40 MG/2 ML VIAL INJ (07:40)
[2023-07-25] MEDS: BUPIVACAINE HCL 0.25% PF 25 MG/10 ML VIAL INJ (07:40)
--- NOTE | 2023-07-25 07:43 | W.PM.PROCNOT ---
Date of procedure: 07/25/23 Pre-op diagnosis: Lumbar spondylosis Post-op diagnosis: same as pre-op Procedure: Procedure: Bilateral L4-5, l5-S1 medial branch block Medications: Bupivacaine 0.25% 6cc The patient was seen and examined in the preoperative holding area.? An informed consent was obtained and placed on the chart.? The patient was brought to the medical procedure unit and placed in the prone position.? A timeout was completed verifying correct patient, procedure site, positioning, plan, and special equipment.? Using aseptic technique, the needle was placed at left L4. Under direct fluoroscopic visualization a Quincke-tipped spinal needle was advanced to the junction of the superior articulating process with the transverse process at the designated medial branch segment.? Preceded by negative aspiration, the above-mentioned injectate was placed in 1 mL aliquots.? The procedure was repeated at left L5, S1.? The needle was removed and insertion site was covered. The same procedure, at the same levels, was completed on the right side. The patient was taken to the postprocedural recovery area and monitored for an appropriate length of time before found suitable for discharge in the company of a responsible adult. Anesthesia: Local Surgeon: Kei Espana Pathology: none sent Condition: stable Disposition: no change
== END 2023-07-25 07:45 | disposition home or self-care (01) ==
PROVIDERS: PCP Family Medicine; Visit Provider Anesthesiology
DX: M47.816 Spondylosis without myelopathy or radiculopathy, lumbar region (principal)
CPT/HCPCS: 64493; 64494

== ENCOUNTER 2023-08-03 07:44 | Outpatient (OUT) | payer MEDICARE, SELFPAY ==
--- OUTSIDE RECORDS SUMMARY | 2023-08-03 07:49 | XMS_ITS | CCD ---
Author Organization [facility] Care Team Providers Care Advertising Project Manager Name Role Phone PHYSICIAN, DEFAULT Admitting Unavailable PHYSICIAN, DEFAULT Attending Unavailable SHARI MCKEON Primary Care Unavailable SU, DR BÁRBARA Amaral Admitting Unavailorestes BLUE, DR BÁRBARA Amaral Attending Unavailorestes TORRES, SARAHI ENG Consulting Unavailable MIKE, DR MENDOZA Primary Care Unavailable Remy Ness Consulting Unavailable WISORIN, DR CARLOS EDUARDO Worthy Consulting Unavailable MIKE, DR MENDOZA Primary Care Unavailable RAMILA, DR CARLOS EDUARDO Worthy Attending Unavailable RAMILA, DR CARLOS EDUARDO Worthy Admitting Unavailable MORAIMA [...] Care Unavailable MIKE, SHARI Amaral Consulting Unavailable Marisa Ramos Admitting Unavail able Marisa Ramos Attending Unavail able SHARI MCKEON Primary Care Unavailable Richard, Marisa Calderon Admitting Unavail able Marisa Ramos Attending Unavail able ALEXANDER APARICIO Attending Unavailab le SHARI MCKEON Attending Unavailable SHARI MCKEON Referring Unavailable MARISA RAMOS Attending Unavailable MARISA RAMOS Referring Unavailable MARISA RAMOS Attending Unavailable MARISA RAMOS Attending Unavailable MARISA RAMOS Referring Unavailable MARISA RAMOS Attending Unavailable Alessandra JAVA MANAGER, Alexander Temo Unavailable Shari Mckeon MD Primary Care Provider Jovi JAIMES, Kei Brian Attending Unavailable Jovi JAIMES, Kei Brian Attending Unavailable Allergies Allergy Classification Reported Allergen(s) Allergy Type Date of Onset Reaction(s) Facility (2 sources) Alendronate; Translations: [Fosamax] Drug Allergy [facility] Repository (2 sources) Alendronate Drug Allergy 09-10-2020 [...] disintegrating oral tablet (2 sources) Start: 01-07-20 23 take 1 tablet by mouth once daily [...] 01-30-2020 Episodic Other aftercare (1 source) Other 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 (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) drug therapy; Translations: [OTH NURSE UNIT MANAGER CURRENT DRUG THERAPY] Onset: 02-14-2020 Episodic Other aftercare (1 source) shelter (current) use of aspirin; Translations: [NURSE UNIT MANAGER CURRENT USE OF ASPIRIN] Onset: 01-04-2020 Episodic [...] Normal Not Available XR CHEST 2 VIEWSon 3 XR CHEST 2 VIEWS EXAMINATION: XR CHES [...] Not Available Consent Formson 07-27-2022 Consent Forms [id number] Normal [facility] Discharge Instructionson Discharge Instructions [id number]#1.00OTGTIFF Normal [facility] MAGR Intraoperative Recordon 07-27-2022 MAGR Intraoperative Record MAGR Intra-Op Record Summary Primary Physician: Marisa Ramos DO Finalized Date/Time: 07/27/22 09:45:04 Pt. Name: RADHA CUADRA BRAD Dangelo/Sex: 1945 FEMALE Med Rec #: [id number] Physician: Marisa Ramos DO Financial #: [id number] Pt. Type: D Room/Bed: / Admit/Disch: 07/26/22 [...] Role Performed Surgeon - Primary Anesthesiologist of Psychology Physician Record Time In 07/26/22 07:39:00 07/26/22 07:39:00 07/26/22 07:39:00 Time Out 07/26/22 09:49:00 07/26/22 09:49:00 07/26/22 09:49:00 Procedure Arthroplasty Shoulder Arthroplasty Shoulder Arthroplasty Shoulder Total Reverse(Left) Total Reverse(Left) Total Reverse(Left) Last Modified By: Mode RN, Jania Coello RN, Jania Coello RN, Jania Plascencia 07/26/22 09:49:54 07/26/22 09:49:54 07/26/22 09:49:54 Entry 4 Entry 5 Entry 6 Case Attendee Paulina Vásquez CST, CST, Kelly CST Mc[place]ray FORMING PROCESS LINE WORKER/CSFAZOE FORMING PROCESS LINE WORKER Role Performed Scrub Personnel Scrub Personnel Therapy Administrative Assistant Time In 07/26/22 07:39:00 07/26/22 07:39:00 07/26/22 07:39:00 Time Out 07/26/22 09:49:00 07/26/22 09:49:00 07/26/22 09:49:00 Procedure Arthroplasty Shoulder Arthroplasty Shoulder Arthroplasty Shoulder Total Reverse(Left) Total Reverse(Left) Total Reverse(Left) Last Modified By: Jania Coello RN, RN, Kathleen A Derry RN, Kathleen A 07/26/22 09:49:54 07/26/22 09:49:54 07/26/22 09:49:54 General Comments: Nicholas Pembina - Arthrex rep Surgical Procedures MAGR Pre-Care Text: A.20 Verifies operative procedure, surgical site, and laterality Im.150 Develops individualized plan of care Entry 1 Procedure Arthroplasty Shoulder Primary Procedure Yes Total Reverse Primary Surgeon Marisa Ramos DO Surgeon Comment LEFT REVERSE TOTAL Start [...] to chemical sources (more content not included)... [facility] Outside Recordson 07-27-2022 Outside Records [id number][facility]-27-2022 Provider Orders [id number]#1.00OTGTIFF [facility] Telemetry Stripson Telemetry Strips [id number]#1.00OTGTIFF [facility] Anesthesia Noteon 07-26-2022 Anesthesia Note Patient: RADHA [...] 07/26/2022 11:51 EDT] Remy Da Silva MD [facility] Anesthesia Note Patient: RADHA CUADRA Age: 77 [...] obstructive pulmonary disease (COPD) / SNOMED CT 62498578 / Confirmed Heart murmur / SNOMED CT 135875845 / Confirmed Hyperlipidemia / SNOMED CT 79442861 / Confirmed HTN (hypertension) / SNOMED CT 5883322343 / Confirmed Histories Family History: COPD Mother Father Procedure history: Arthroplasty of left knee (0509546728). Arthroplasty of right knee (2078179089). Carpal tunnel release (734579565). Comments: 06/29/2022 13:15 Dorota De Leon RN bilat Colonoscopy (319174467). EGD - Esophagogastroduodenoscopy (8728260220). Disorder of rotator cuff (1765224829). Comments: 06/29/2022 13:14 Dorota De Leon RN left Social History Electronic Cigarette/Vaping Assessment [...] Oriented. Review / Management Laboratory Results Plan [place] [employer]esthesiologists#(ASA) physical status classification: Class [...] note.. [Electronically Signed on: 07/26/2022 08:23 EDT] Fullam, Remy MD [Verified on: 07/26/2022 08:23 EDT] Remy Da Silva MD [facility] Inpatient Patient Summaryon 07-26-2022 [place]patient [place] [address] Patient Discharge Instructions Name: RADHA CUADRA : 1945 Patient Address: [address] [place] [address] [place] [address] Primary Care Provider: Name: SHARI MCKEON After you are discharged if you find you have any questions, please, call [phone] ext [phone] to speak to a nurse. Discharge Diagnosis: [...] alcohol and/or drug addiction problems; contact the Mental Health & Recovery Board [facility] 04/10 Crisis Hotline -Text 4HQRM bo 590703. If you received any narcotics, sedation, or [...] business decisions or sign any legal documents [facility] would like to thank you for allowing us to assist you with your healthcare needs. The following includes patient education materials and information regarding your injury/illness. RADHA CUADRAILY has been given the following list of follow-up instructions, prescriptions, and patient education materials: Follow-up Instructions With: Address: When: Marisa Ramos [address] [place] [address], [address] [place] [address] Business (1) 08/03/2022 11:00 AM Medications During [...] fingers frequently (more content not included)... Normal [facility] MAGR [facility]operative [facility]20[facility] [place] MAG[facility] Intra-Op Record Summary Primary Physician: Finalized Date/Time: 07/26/22 07:42:32 Pt. Name: CHRISTI RADHAJANELLE Dangelo/Sex: 1945 FEMALE Med Rec #: [id number] Physician: Marisa Ramos DO Financial #: [id number] Pt. Type: D Room/Bed: / Admit/Disch: 07/26/22 [...] Attendee Remy Da Silva MD, Margaret RN Dorota Myers RN Role Performed Anesthesiologist of Psychology Physician Psychology Physician Record Time In 07/26/22 07:13:00 07/26/22 07:13:00 07/26/22 07:13:00 Time Out 07/26/22 07:38:00 07/26/22 07:38:00 07/26/22 07:38:00 Procedure Interscalene Block(Left) Interscalene Block(Left) Interscalene Block(Left) Last Modified By: Kimberley Le RN, Margaret RN Klaehn, Margaret RN 07/26/22 07:39:31 07/26/22 07:39:31 07/26/22 07:39:31 Entry 4 Case Attendee Amy Bates RN Role Performed Psychology Physician Time In 07/26/22 07:13:00 Time Out 07/26/22 [...] Post-op Destinat (more content not included)... [facility] Primary Physician: Marisa Ramos DO Finalized Date/Time: 07/26/22 10:38:28 Pt. Name: RADHA CUADRA/Sex: 1945 FEMALE Med Rec #: [id number] Physician: Marisa Ramos DO Financial #: [id number] Pt. Type: D Room/Bed: / Admit/Disch: 07/26/22 05:52:10 - Institution: PACU Case Times MAGR Entry 1 In PACU I 07/26/22 09:51:00 Discharge from PACU 07/26/22 10:35:00 I Last Modified By: Warner Bolton RN 07/26/22 10:38:23 Finalized By: Warner Bolton RN Document Signatures Signed By: Warner Bolton RN 07/26/22 10:38 [facility] MAGR Postoperative Recordon 07-26-2022 MAG[facility]operative [facility] Record Summary Primary Physician: Marisa Ramos DO Finalized Date/Time: 07/26/22 12:01:17 Pt. Name: RADHA CUADRA/Sex: 1945 FEMALE Med Rec #: [id number] Physician: Marisa Ramos DO Financial #: [id number] Pt. Type: D Room/Bed: / Admit/Disch: 07/26/22 [...] Signed By: Annamarie Samuels RN 07/26/22 12:01 [facility] MAGR Preoperative Recordon 0 07-26-2022 MAGR Preoperative Record MAGR Pre-Op Record Summary Primary Physician: Marisa Ramos DO Finalized Date/Time: 07/26/22 07:44:03 Pt. Name: RADHA CUADRA /Sex: 1945 FEMALE Med Rec #: [id number] Physician: Marisa Ramos DO Financial #: [id number] Pt. Type: D Room/Bed: / Admit/Disch: 07/26/22 [...] consent correct. General Comments: Pt arrives to w ambulatory. Pt denies cp, sob, cough or flu like symptoms. She also pacemaker/defibillator or sleep apnea. Finalized By: Kimberley Le RN Document Signatures Signed By: Kimberley Le RN 07/26/22 07:44 [facility] Operative Report - Surgeon/P pablo 07-26-2022 Operative [...] Estimated blood loss: 50 Complications: None Findings: Sbek-bb-iyre in the glenohumeral joint Procedure summary: Patient [...] on: 07/26/2022 09:35 EDT] Marisa Ramos DO [facility] Patient Handouton 07-26-[address] MESSINA [...] or concerns, please call the office at [phone] 7. Follow up as scheduled [facility] XR Shoulder 1 View Lefton XR Shoulder [...] MD 07/27/22 4:01 pm Technologist: JORDON RUVALCABA [facility] Comment on above: Order Comment: chey lt status post shoulder replacement Progress Note - Nurseon 07-12 Progress Note - Nurse Pre-op call made to pt. Pt states understanding of arrival time of 0600 on 07/26/22 and NPO after MN. [Electronically Signed on: 07/23/2022 09:27 EDT] Shantel Gonsalez RN [Verified on: 07/23/2022 09:27 EDT] Shantel Gonsalez RN [facility] Coding Summaryon 07-02-2022 Coding Summary HTMLBase 64 YcekvtrnVLz9qSy+PGhlYWQ+PE1F FMOsQ96akOKbpG8XP1cQPC5SKRKF XUVAFA8WMX5auDF5QLovI9HjqoDl ZitbqJSuGU98YBo3VYR7nYfzHBcb kX3ybSIqQ5e2PhCqBX73mP80NHgj WJXfHfU4VkOdjwxqaPOv G7jbWyMzaLRiSsb+PHRhYmxlIHdp ZXOjWOdvQEPgFnJsjEcqQM4iTe7g ZGVyLWNvbGxhcHNlOiBj k9fiFQTiQUmiIX9ohVrbU1CipSA2 PZTcb0b5Qi42cIP+ELAcDWX2eDyh JGaol751KrZsu9cuHHM9 mXTrNUxrWLS6B16jj5E0LIVdGCHl TYY5oAG1tK6ucIgvhmedR0VzoHRq NkG9ADT9dTMyxL0mmPau lndhzK1dEey+B35HZC6JZTMFVH1C Ezp5B8KlCghbeNT+PE01HMNiQC54 dLTycICzj6eucCp1TlTb VZYsHYR4uNobRWjuy1FeCDTfC26l dGNdh0M5AAXksBpyjMYfDzOaoQK7 iZ5pEHpdybwxj1ocogda Njnuc7vzez50rO43L55aXCsjBTRq BZC7MALfEDFlqVdczi0csD9rOa6+ AIjae4pzs0ckdUc3OyFl CBTcrvEjnMwcJGS5p1ZwWz03C2Sk lEjda8ZlAaa5gh88mORql9S4dCT1 DOazSXZnoO7tUOswClU9 FPFxIzQecY97oWDgSWwbZl3urByy kRwqEJ6dGKFesyxnQYAdfD8aBNQy iWNgfBkmCS0sGTXlnlmz x996MqLeEXJ7FTCtmWYaO9OfpA4i NaJiZSHnFCXgL6VjbCPcUCcyI758 BGymQeO1IHNawoFaI3Sd JASldEbfEgX3w3A6Vb8Rd9Nwxudw VSG2VEetSGH1KiVqUaEuVtF7G1Ha Ans8NIBeaFwcMV2lR9Wd EUGbmdzpasvtfFS7MGHdRFMdcF57 rEQhBEplOl8yq4F0j660ZBLlEJSb wX33Ty0duTpcGHLbqTBY wZ7azqhph3ykheqvJjNvEIQwPDn4 XKj4NDOtbHmvRqFfJZM5PqA5ARJ8 mWTpyR2iiPrjqarerW2d Oyc+N96ciY5wSMB7DAL1mfveYYZu adBzDB65WM88Q0HjBoayfWGwiWH+ JDHmuhWkoTmtOL6dUmPh i3zvb3CyWAcjM1FgCMWhVEobTid2 RDMgHQV7vMY9uX5wJTYoYVykg2H7 zBB7H1IhjkMmbs7my9ov UXSjXKusL37sqKMea6W4WWPsxRG5 ENUmhKouYeAztL02Hme+PGNvbGdy a9OqMqhmt9vei5izfXv0 CuVyJIOvroDxnIlbMQL0n7GvOq69 H45nMXodFZLkSKWoMJAyKDHplFqu wa4cpQ9jJt5+PGNvbCB3 eRF2dL8bBAQpHxN0IOljN498UoSr uTYoYlxlh4rjc3khdUe1EkHxGUHy zrDgdPxrIAY9s5GvKs90 K27tSPzkRHRxQYLoMJUiLGSrrSuh nu3hpW3cEz9+TH1ja0pvex78mK29 dHI+IQHwKOD9xRjhUXqz KTLprM4jHMdmJfG1ZQUoBlNxtZ16 iEPkWKanHc8tuHpzzNwnEW6wIXOi xnrxq786AqImu6zrNDGn xGYzKQxrQJJ3Y55xr0G2EPGtONSj CQO4pGL3bQ4ziGmvyjonaIDbqRfw itFhzYnjJEmyLMdmP526 IHRvcDsnPlBhdGllbnQgTmFtZTo8 S2TnGht7XBDpyZnbQI7ugVIhMFxg Vm9qiMxzlDaiOT7lLOZb etvuc549KdHis6jeZPFcqTJvTQkh IZQ0V67zb8X0BAPeBFWyBWC9aHC9 tD9qvDlgqtcfmSHigXlh maKtyLquPWwzTZhdA788ZNXbgJri TnHxueVyOTJwnWK1XA47GY30uMVd g8E3xWY7Y9XcIOQwcfkx vgompVR5KEEhFBOarR64An1kxFdf Uw2pCVEnMDU8MBBnyTQjX6KczB2v FjEhKUIpQMQjZ3QbrJCd OHdeE861YJbuBiE7OSSphpBuY5Qn JJBczVnaWqP6l3P7Tn9XQ3K8NC15 QG08kOCgm9E8wJU1J2Ox GFSjasbfxmismER3POUfMAOicQ76 Jp2duDmrCo7cFSDcCBL4QBUksFNy W9CwbU3hGfSvPXPpUFLu P9IplVCsQWdwJ181WQzoZfI6AQIn wzUnL4NoBUWkmPymXqA9e5W1Ir6E MZv6YH10VN91cLZmb4A1 oII0K6KlGYKqsmnsqvmkfFY2NEKj GBIfsJ22Iu2csAwyQw5vSPXqKIL2 MPBkxJWzW2OnnK7iRoQe AIOgPEWwB3YsiTTlRMbxA610NRav TcL2MVLruyOxM0CjBRUriBejFeB6 i8T5Hv4CCGIuAX89SNT8 gKZ7XL64UD04A9DlLmtqqQNftEM+ PHRhYmxlIHdpZHRoPScxMDAlJyBz hYsaJK9hUk3bNRKkAMIn bJclsJYoXzNme1xrSHLuKChcKH2u aUseM5BbaKW6VQDcb6d4Fq42D05x G2DunLN+QAJjtIY9fJP6 cJ2dBeSfInI3NOguM706BiZgpKJj Gazsk8cfz2burJd3MaG7CPOioyAy eIieOEJ5l9PnLb63C66v SKhvTLVcQPKuCOCyRYChfCeysr0m dU7aIt1+NMRwuWW1pAV8cX1cDbZw VaU6WFvmY855BnWrtOXd Aeeba0nzt1gpwBk3EnQaXHPznpPo iDtoVGD5r3GrPw44R6FbiHyjb4Su Muo1rw72eYDaw4K5mMC5 J9OwZJFhkheyeJAjhOmtJK8mJSAt skavTDFlrG5iWWPcB2r6MzGiMwI8 KUkcB6ZafmC3VHXabJVk QNedJTX5I26xq4Q0KAEpQSWwRYT2 bKE8jN9qcFuqqmdlgWYkoUpbkmOm fAebWOvrCJuqI910SAVo fZdaQPOoeJ9hOALhdZCamWahVW0h CBAvlxbgVsuUNEHoWPeBQPvuUZ9A ZXo4L7LzGxf0SDMxnUdk NE2jsZUxMDmpWt8rzBxvaSfgCZ6h OKXnwhbeWEUjiE6eCPQmwJQvpRpm PQ6eXOSwtmakh001EnUg ISB3FQNygVMeB4MxdG2oXyLkHIPw ZIApM1HxdUVaDNrsO074SCjxBpZ8 XRSnupWoK0DnXATwsKng OmY5x9L6Wl9tJo0vHp4gOOU4WN33 SX13oXUis0K0qND1Z9WkVECaneeu jinlmFT9JWIkQTVsuO31 wKEjLGxcWm0gc6W8h683QKLjJFSp yY81Fq2ueWepFNWahJDSyP0mfrcs y9kbfkzxXoLdRJThEBa1 RHe3BOXytGbsTuBoHSL7YnF9ZVR6 cAFjkY4asMuspzwizY4cWnk+Nzgg EVRzviJ0B0OyHrm2XGTw lKjyQO4atJYbFWomRz7jnVejaCpu EN2rBBOrkdbvWEVfsB6lTZFhmYUs aRvgBH6jCZGsbcuvc696 RzVdCEG7QTFpbJJdX9HprB1fEqFp HSTlZLLvZ9HakCRmHKklB614IHew HpQ4QNHnyxRcO3IzYGKp jPkcOuI3j6I3Jr7MJI7SHGL5W8Tp Gkk5HCBnzNfwIB2aaQAeXMytXw4r rSgbiSdqPQ2pCPYowbac XWSjoG5jTAKtcPCxfHspMZ7eIZFr qctpc340QoMyLPA5ANUwjDEkF1Pp uJ0yAbGoWMOzDZQqZ5Gy eRFyIOgiK180GBrdLsY6JMXppmMh C0TsJAKddYbaRpB4a3Y8Gc9LEDyj dGQ+HF87xk32Z2PcUukx Hxr1RIFyPKN5kYG3jE1zYMJoDUvc m5P7gRL7I7WdcqSbct4wf7qvHSPt KAycH07cpEWqk7M0THXb dGE4AOHfkSloMqGymU65Krk+PGNv iVxnq6FgLabap6kcj0fsgMa1RqWk JFJigwLhlNjtIDU4n1Gk Ph47N02uBVzoHYIdLMWiBXLkLYQh fJbusy5dgY3hTl2+SAXixMV8nQU1 dR2bHuVbFgP6GRddN043 GwNxiUTxUsbog4sab1oyaOb8AoNd COVjpiJinLupCRI0f0RfRj44A3Sb tEzjf2WdSwy1vh42dUKj g4W3iVC2J3XaCGFxmzrcxGIqaZoc UX0eMMJpotemWSOuhY4jTEFyH6n6 RfDgMxO4BTtzE9TqmfU3 AQTbtREaSPNbjIMFlM0drcbft1ke naecTkTmXFMgNCg7LBf4DNNyxUjh QcZrMTX0VuT8AVX8tMTt hW2ylWubztiozJ6xWln+IHk1p1po mHTdXE0wkHP4OH61UZ67gTUmb7X8 pXL4F7PjOMEuyvfxqooy xAY2WFWeZIRsiF52Wz7mfHwtYp9c EVNeQCF0XNGkuMLcQ7JwaT1qYmVv QBKoFFUuO1YbwAGeCOhu B608KHfoBtN3VAIwwzQxC2CtAJYf lXbhZxJ6u4E6Oa7KJM02NC54HR51 iGRnn1D8cQJ9M7ZfHZAm drlnxrlgmEU4BZGyLQAlpW88Qc7m lGuaAi1oYVPmNJQ2LBVcoVWgN9Gx rY4cVoCqYAYoQKYqH7Qy dIUeNUmxN360QNtgIdG8RUYbxqXb M3VtLZThfJdeOaR7i1Q4Ew0MAf84 PO65DV46zUDxg4X3oCO1 E2ExVHMzbjphpeiziLH4CPHcCOXx lA24Os4xbFtzJa6pBZSgWET6SQAk jGYxR1NfcO0eCxRuRPAe CGLrM0NfrGMmNXpnA394QLfcDgI5 NXBtnbLeX0HgJTRukXkcFmB4r5P6 Zl0AJWxkkvt5N7KlQjoe dHI+TJ53VWQhWD93gQMqnMXzl8ku oAj9YfKyANSmMFT6kQyiJBevf6En FYDzE22eoQXfi8C0BWBw bGx (more content not included)... Normal [facility] C MRSA Screenon 06-30-2022 C MRSA Screen Negative Normal [facility] Comment on above: Performed By: #### 1 [id number] ####[facility] (DEFAULT)[address] [place] [address] Progress Note - Nurseon 04- Progress Note - Nurse Dr. Castro reviewed PAT notes for upcoming surgery 07/26/2022. No new orders at this time [Electronically Signed on: 06/30/2022 11:45 EDT] Annamarie Samuels RN [Verified on: 06/30/2022 11:45 EDT] Annamarie Samuels RN [facility] Provider Orderson 06-30-2022 Provider Orders [id number]#1.00OTGTIFF [facility] .Auto Diff 1on 06-29-2022 Auto Catron % 10 % Normal 1-12 [facility] Comment on above: Performed By: #### 7 [id number], [id number], [id number] ####[facility] (DEFAULT)[address] [place] [address] Baso Abs# 0.0 x10 Normal 0.0-0.2 [facility] Comment on above: Performed By: #### 7 [id number], [id number], [id number] ####[facility] (DEFAULT)[address] [place] [address]604 Basophils/100 WBC (Bld) 0.7 % Normal 0.2-2.0 [facility] Comment on above: Performed By: #### 7 [id number], [id number], [id number] ####[facility] (DEFAULT)[address] [place] [address] 04166 Eos Abs# 0.6 x10 High 0.0-0.4 [facility] Comment on above: Performed By: #### 7 [id number], [id number], [id number] ####[facility] (DEFAULT)[address] [place] [address] 42437 Eosinophils/100 WBC (Bld) 8.5 % High 0.9-4.0 [facility] Comment on above: Performed By: #### 7 [id number], [id number], [id number] ####[facility] (DEFAULT)[address] [place] [address] Lymph Abs# 1.6 x10 Normal 1.3-2.9 [facility] Comment on above: Performed By: #### 7 [id number], [id number], [id number] ####[facility] (DEFAULT)[address] [place] [address] Lymphocytes/100 WBC (Bld) 24 % Normal 14-48 [facility] Comment on above: Performed By: #### 7 043536, [id number], [id number] ####[facility] (DEFAULT)[address] [place] [address] Catron Abs# 0.7 x10 Normal 0.0-0.8 [facility] Comment on above: Performed By: #### 7 [id number], [id number], [id number] ####[facility] (DEFAULT)[address] [place] [address] Neut Abs# 3.8 x10 Normal 1.5-9.2 [facility] Comment on above: Performed By: #### 7 [id number], [id number], [id number] ####[facility] (DEFAULT)[address] [place] [address] Neutrophils/100 WBC (Bld) 57 % Normal 44-88 [facility] Comment on above: Performed By: #### 7 156047, [id number], [id number] ####[facility] (DEFAULT)[address] [place] [address] BMP Standardon 06-29-2022 eGFR Non AA 33 mL/min/1.73m2 Invalid Interpretation Code [facility] Comment on above: Performed By: #### 7 029159, [id number], [id number] ####[facility] (DEFAULT)[address] [place] [address] eGFR AA 40 mL/min/1.73m2 Invalid Interpretation Code [facility] Comment on above: Performed By: #### 7 133497, [id number], [id number] ####[facility] (DEFAULT)[address] [place] [address]604 Anion gap [Moles/Vol] 8.9 mmol/L Normal 5.0-19.0 [facility] Comment on above: Performed By: #### 7 482013, [id number], [id number] ####[facility] (DEFAULT)[address] [place] [address] 09120 Calcium [Mass/Vol] 9.3 mg/dL Normal 8.9-10.3 [facility] Comment on above: Performed By: #### 7 973860, [id number], [id number] ####[facility] (DEFAULT)[address] [place] [address] 09355 Chloride [Moles/Vol] 102 mmol/L Normal 101-111 [facility] Comment on above: Performed By: #### 7 [id number], [id number], [id number] ####[facility] (DEFAULT)[address] [place] [address] 24206 CO2 [Moles/Vol] 28 mmol/L Normal 21-32 [facility] Comment on above: Performed By: #### 7 [id number], [id number], [id number] ####[facility] (DEFAULT)[address] [place] [address] 75188 Creatinine [Mass/Vol] 1.53 mg/dL High 0.60-1.30 [facility] Comment on above: Performed By: #### 7 [id number], [id number], [id number] ####[facility] (DEFAULT)[address] [place] [address] 97508 Glucose [Mass/Vol] 107.0 mg/dL Normal 74.0-118.0 [facility] Comment on above: Performed By: #### 7 [id number], [id number], [id number] ####[facility] (DEFAULT)[address] [place] [address] 95538 Osmolality 279 mOsm/L Invalid Interpretation Code [facility] Comment on above: Performed By: #### 7 [id number], [id number], [id number] ####[facility] (DEFAULT)[address] [place] [address] 55364 Potassium [Moles/Vol] 3.9 mmol/L Normal 3.6-5.1 [facility] Comment on above: Performed By: #### 7 [id number], [id number], [id number] ####[facility] (DEFAULT)[address] [place] [address] 23716 Sodium [Moles/Vol] 135.0 mmol/L Low 136.0-144 . 0 [facility] Comment on above: Performed By: #### 7 [id number], [id number], [id number] ####[facility] (DEFAULT)[address] [place] [address] 29592 Urea nitrogen [Mass/Vol] 36 mg/dL High 8-26 [facility] Comment on above: Performed By: #### 7 [id number], [id number], [id number] ####[facility] (DEFAULT)[address] [place] [address] 02803 Urea nitrogen/Creatinine [Mass ratio] 23.5 mg/mg High 4.6-16.2 [facility] Comment on above: Performed By: #### 7 668305, [id number], [id number] ####[facility] (DEFAULT)[address] [place] [address] 35549 CBC w/ Auto Diffon Erythrocyte distribution width (RBC) [Ratio] 12.8 % Normal 11.5-15.0 [facility] Comment on above: Performed By: #### 7 376061, [id number], [id number] ####[facility] (DEFAULT)[address] [place] [address] 72575 Hematocrit (Bld) [Volume fraction] 36.4 % Normal 33.7-40.4 [facility] Comment on above: Performed By: #### 7 598190, [id number], [id number] ####[facility] (DEFAULT)[address] [place] [address] 09161 Hemoglobin (Bld) [Mass/Vol] 12.2 g/dL Normal 11.3-15.9 [facility] Comment on above: Performed By: #### 7 649272, [id number], [id number] ####[facility] (DEFAULT)[address] [place] [address] Man Diff? Auto Invalid Interpretation Code [facility] Comment on above: Performed By: #### 7 [id number], [id number], [id number] ####[facility] (DEFAULT)[address] [place] [address] MCH (RBC) [Entitic mass] 32 pg Normal 24-34 [facility] Comment on above: Performed By: #### 7 [id number], [id number], [id number] ####[facility] (DEFAULT)[address] [place] [address] MCHC (RBC) [Mass/Vol] 33 g/dL Normal 26-37 [facility] Comment on above: Performed By: #### 7 [id number], [id number], [id number] ####[facility] (DEFAULT)[address] [place] [address] MCV (RBC) [Entitic vol] 97 fL Normal 81-100 [facility] Comment on above: Performed By: #### 7 [id number], [id number], [id number] ####[facility] (DEFAULT)[address] [place] [address] Platelet 336 x10 Normal 138-427 [facility] Comment on above: Performed By: #### 7 655276, [id number], [id number] ####[facility] (DEFAULT)[address] [place] [address] Platelet mean volume (Bld) [Entitic vol] 7.2 fL Normal 6.3-10.2 [facility] Comment on above: Performed By: #### 7 [id number], [id number], [id number] ####[facility] (DEFAULT)[address] [place] [address] RBC 3.77 x10 Normal 3.70-5.30 [facility] Comment on above: Performed By: #### 7 [id number], [id number], [id number] ####[facility] (DEFAULT)[address] [place] [address] WBC 6.7 x10 Normal 3.5-10.5 [facility] Comment on above: Performed By: #### 7 [id number] ####[facility] (DEFAULT)[address] [place] [address] UA w Culture if Ind Standard on 06-29-2022 Breakpoint UA Normal [facility] Comment on above: Performed By: #### 1 [id number] #### [facility] (DEFAULT) [address] [place] [address] Color (U) Yellow [facility] Comment on above: Performed By: #### 1 [id number] #### [facility] (DEFAULT) [address] [place] [address] Culture? Not Indicated Invalid Interpretation Code [facility] Comment on above: Result Comment: Resu lt created by rule GL_MAGR_ADD_UA_CULT1 Performed By: #### 1 [id number] #### [facility] (DEFAULT) [address] [place] [address] Glucose (U) [Mass/Vol] Negative [facility] Comment on above: Performed By: #### 1 [id number] #### [facility] (DEFAULT) [address] [place] [address] Ketones Ql (U) Negative [facility] Comment on above: Performed By: #### 1 [id number] #### [facility] (DEFAULT) [address] [place] [address] Micro? Not Indicated Invalid Interpretation Code [facility] Comment on above: Result Comment: Resu lt created by rule GL_MAGR_ADD_UA_MICRO Performed By: #### 1 [id number] #### [facility] (DEFAULT) [address] [place] [address] UA Bilirubin Negative Normal [facility] Comment on above: Performed By: #### 1 [id number] #### [facility] (DEFAULT) [address] [place] [address] UA Blood Negative Normal NEGATIVE [facility] Comment on above: Performed By: #### 1 [id number] #### [facility] (DEFAULT) [address] [place] [address] UA Clarity CLEAR Normal CLEAR [facility] Comment on above: Performed By: #### 1 [id number] #### [facility] (DEFAULT) [address] [place] [address] 33372 UA Leuk Est Negative Normal NEGATIVE [facility] Comment on above: Performed By: #### 1 [id number] #### [facility] (DEFAULT) [address] [place] [address] 25667 UA Nitrite Negative Normal NEGATIVE [facility] Comment on above: Performed By: #### 1 [id number] #### [facility] (DEFAULT) [address] [place] [address] 27592 UA pH 6.5 Normal 07-19 [facility] Comment on above: Performed By: #### 1 [id number] #### [facility] (DEFAULT) [address] [place] [address] 35921 UA Protein Negative Normal NEGATIVE [facility] Comment on above: Performed By: #### 1 [id number] #### [facility] (DEFAULT) [address] [place] [address] 03064 UA Spec Grav 1.010 Normal 1.001-1.[address] [place] [address] Comment on above: Performed By: #### 1 [id number] #### [facility] (DEFAULT) [address] [place] [address] 76795 UA Urobilinogen 0.2 mg/dL Normal 0.2-1.0 [facility] Comment on above: Performed By: #### 1 [id number] #### [facility] (DEFAULT) [address] [place] [address] 13020 Urine Source Clean Catch Normal [facility] Comment on above: Performed By: #### 1 [id number] #### [facility] (DEFAULT) [address] [place] [address] 03075 MRI Shoulder w/o Lefton 04-15 MRI Shoulder [...] by Adarsh Adams on 05/11/2022 1041 Normal [facility] SCREENING MAMMOGRAM W/ARABELLA, BILATERAL*on 11-20-2021 SCREENING MAMMOGRAM [...] VERY IMPORTANT TO YOUR HEALTH. THE CURRENT [employer] OF [employer] AND N[employer] COMPREHENSIVE CANC[employer] NETWORK GUIDELINES RECOMMENDS ANNUAL MAMMOGRAPHY BEGINNING AT AGE 39 THIS FACILITY USES A REMINDER SYSTEM TO ENSURE ALL PATIENTS RECEIVE REMINDER NOTIFICATIONS AT THE APPROPRIATE TIME BASED ON THE RECOMMENDATIONS OF THIS EXAM. Report reported and signed by Alejandro Forte on 11/20/2021 0949 Normal [facility] Comprehensive Metabolic Pane george 06-10-2021 Albumin [Mass/Vol] 4.2 g/dL Normal 3.6-5.1 Madyson tejada [facility] Comment on above: Performed By: #### C JARVIS DONIS #### [facility] [address] [place], [place] [id number] Albumin/Globulin [Mass ratio] 1.7 {ratio} Normal 1.0-2.5 [facility] Comment on above: Performed By: #### C MP, LIPD #### [facility] [address] [place], [place] [id number] ALP [Catalytic activity/Vol] 82 U/L Normal 35-119 [facility] Comment on above: Performed By: #### C MP, LIPD #### [facility] [address] [place], [place] [id number] ALT [Catalytic activity/Vol] 15 U/L Normal 6-33 [facility] Comment on above: Result Comment: 02/11 Female reference range changed. Performed By: #### C JEWELS LIPD #### [facility] [address] [place], [place] [id number] Anion gap [Moles/Vol] 15 mmol/L Normal 12-20 [facility] Comment on above: Result Comment: Effe ctive 03/19/2019 reference range changed. Performed By: #### C JEWELS LIPD #### [facility] [address] [place] [id number] AST [Catalytic activity/Vol] 21 U/L Normal 9-34 [facility] Comment on above: Performed By: #### C JEWELS LIPD #### [facility] [address] [facility] [place] [id number] BUN/CREA 28 Ratio High 6-22 [facility] Comment on above: Performed By: #### C MP, LIPD #### [facility] [address] [place] [id number] Calcium [Mass/Vol] 9.3 mg/dL Normal 8.6-10.2 [facility] Comment on above: Performed By: #### C MP, LIPD #### [facility] [address] [place], [place] [id number] Chloride [Moles/Vol] 106 mmol/L Normal 98-107 [facility] Comment on above: Performed By: #### C MP, LIPD #### [facility] [address] [place], [place] [id number] CO2 [Moles/Vol] 24 mmol/L Normal 20-31 [facility] Comment on above: Performed By: #### C MP LIPD #### [facility] [address] [place], [place] [id number] Creatinine [Mass/Vol] 1.1 mg/dL Normal 0.6-1.4 [facility] Comment on above: Performed By: #### JARVIS Anaya MP #### [facility] [address] [place], [place] [id number] eGFRAA 58 mL/min/1.73m2 Low >60 [facility] Comment on above: Performed By: #### C JARVIS DONSI #### [facility] [address] [place], [place] [id number] eGFRNAA 48 mL/min/1.73m2 Low >60 [facility] Comment on above: Performed By: #### C JARVIS DONIS #### [facility] [address] [place], [place] [id number] Globulin (S) [Mass/Vol] 2.5 g/dL Normal 1.9-3.7 [facility] Comment on above: Performed By: #### C JARVIS DONIS #### [facility] [address] [place], [place] [id number] Glucose [Mass/Vol] 94 mg/dL Normal 65-99 [facility] Comment on above: Result Comment: For FASTING Glucose --- ADA reference ranges: Normal 65-99 mg/dl Prediabetes 100-125 Diabetes >/= 126 Performed By: #### C JARVIS DONIS #### [facility] [address] [place], [place] [id number] Potassium [Moles/Vol] 4.4 mmol/L Normal 3.5-5.5 [facility] Comment on above: Performed By: #### C JARVIS DONIS #### [facility] [address] [place], [place] [id number] Protein [Mass/Vol] 6.7 g/dL Normal 6.1-8.1 [facility] Comment on above: Performed By: #### C JEWELS LIPTeresa #### [facility] [address] [place], [place] [id number] Sodium [Moles/Vol] 141 mmol/L Normal 135-146 [facility] Comment on above: Performed By: #### C MP, LIPD #### [facility] [address] [place], [place] [id number] TBIL <0.3 Normal [facility] Specialist Comment on above: Performed By: #### C JEWELS LIPD #### [facility] [address] [place], [place] [id number] Urea nitrogen [Mass/Vol] 32 mg/dL High 7-25 [facility] Comment on above: Performed By: #### C JEWELS LIPD #### [facility] [address] [place], [place] [id number] Lipid Panelon 06-10-2021 Cholesterol [Mass/Vol] 237 mg/dL High 125-200 [facility] Comment on above: Result Comment: Low risk < 200mg/dL Borderline risk 201-239 mg/dl High risk > or equal to 240 Performed By: #### C JEWELS LIPTeresa #### [facility] [address] [place], [place] [id number] Cholesterol in HDL [Mass/Vol] 100 mg/dL Normal >40 [facility] Comment on above: Result Comment: High Cardiovascular Risk HDL <40 mg/dL Low Cardiovascular Risk HDL > or equal to 60 mg/dl Performed By: #### C JEWELS LIPD #### [facility] [address] [place], [place] [id number] Cholesterol in LDL [Mass/Vol] 124 mg/dL Normal [facility] Comment on above: Result Comment: LDL ATP III CLASSIFICATION LDL less than 100 mg/dl Optimal LDL 100-129 mg/dl Near or above optimal LDL 130-159 Borderline high LDL 160-189 High LDL greater than 189 mg/dl Very High Performed By: #### C JEWELS, LIPD #### [facility] [address] [place], [place] [id number] Cholesterol in VLDL [Mass/Vol] 13 mg/dL Normal [facility] Comment on above: Performed By: #### C JEWELS LIPD #### [facility] [address] [place], [place] [id number] Cholesterol.total/Ch olesterol in HDL [Mass ratio] 2 {ratio} Normal [facility] Comment on above: Performed By: #### C JEWELS LIPD #### [facility] [address] [place], [place] [id number] Triglyceride [Mass/Vol] 67 mg/dL Normal 30-150 [facility] Comment on above: Result Comment: TRIG ATPIII CLASSIFICATIONS TRIG less than 150 mg/dl Normal TRIG 150-199 mg/dl Borderline High TRIG 200-500 mg/dl High TRIG greather than 500 mg/dl Very High Performed By: #### C MP, LIPD #### [facility] [address] [place], [place] [id number] ECHOCARDIO M/2D COMPLETEon 0 10-24-2020 ECHOCARDIO M/2D COMPLETE Patient: RADHA CUADRA Exam Date: 10/24/2020 : 1945 Gender:F Ordering : DR SHARI MCKEON M.D. Admission #: [id number] Family : Order #: [id number] CLICK HERE TO VIEW EXAM ECHOCARDIOGRAM REPORT [...] Area(A4C): 13.90 cm2 Left Atrium Systolic Volume(A2C): 83348 mm3 Left Atrium Systolic Volume(A4C): 98408 mm3 Mitral Valve MV E to A Ratio: 1.10 Mitral Valve A-Wave Peak Velocity: 68.60 cm/s Mitral Valve E-Wave Peak Velocity: 74.50 cm/s Deceleration Time: 259 ms Right Ventricle Aorta AO Root Diam: 2.60 cm Aortic Valve Peak Velocity (Antegrade Flow): 161.00 cm/s, 230.00 cm/s AoV Area (Peak Daniel): 1.93 cm2 AoV Area (VTI): 1.90 cm2 Deceleration Schuyler: 1880 mm/s2 Pressure Half-Time: 528 ms Peak [...] Teo Burrows M.D. on 10/24/2020 at 19:17 [facility] HEMOGLOBINon 09-30-2020 Hemoglobin (Bld) [Mass/Vol] 12.3 g/dL Normal 12.0-16.0 [facility] Comment on above: Performed By: #### H GB #### [facility] [address] [place] [address] Geraldo Gaitan H PYLORI TISSUEon 02-01-2020 H PYL TISSUE, UREASE Negative Normal NEGATIVE [facility] Comment on above: Performed By: #### H GB #### [facility] [address] [place] [address] Geraldo Gaitan COVID-19 PCRon 01-27-2020 SARS-CoV-2 (COVID-19) RNA VIVIENNE+probe Ql (Unsp spec) Not detected Normal Not Detected [facility] Comment on above: Result Comment: This nucleic acid amplification test was developed and its performance characteristics determined by [facility]. Nucleic acid amplification tests include PCR and [...] Performed By: #### C VDSTAT, CVDPCR #### [facility] [address] [place], [place] [id number] Geraldo Gaitan PRIORITY COVID PROCESSINGon 01-27-2020 Comment Comment Normal [facility] Comment on above: Result Comment: Rece ived Performed By: #### C VDSTAT, CVDPCR #### [facility] [address] [id number] Geraldo Gaitan CULTURE BLOODon 01-08-2020 Microscopic examination [...] F Trimethoprim/Sulfamethoxazol e <=20 S F Normal [facility] Comment on above: Performed By: #### H GB #### [facility] [address] [place] [address] Geraldo Gaitan BLOOD CULTURE ID PANELon A. baumannii Not detected Normal [facility] Comment on above: Performed By: #### B MIRYAM #### [facility] [address] [place] [address] Geraldo Kandy BCID CONTROLS PASSED Normal [facility] Comment on above: Performed By: #### B MIRYAM #### [facility] [address] [place] [address] Geraldo Gaitan BCIDBTHD BLOOD CULTURE BOTTLE INFORMATION Normal [facility] Comment on above: Performed By: #### B MIRYAM #### [facility] [address] [place] [address] Geraldo Gaitan BCIDHD1 ANTIMICROBIAL RESIST ANCE GENES Normal [facility] Comment on above: Performed By: #### B MIRYAM #### [facility] [address] [place] [address] Geraldo Kandy BCIDHD2 SEE BELOW [facility] Comment on above: Result Comment: KPC- carbapenem resistance gene, mecA- methecillin resistance gene, van A/B- vancomycin resistance gene Note: Antimicrobial resitance can occur via multiple mechanisms. A Not Detected result for the [employer] antomicrobial resistance gene assays does not indicate antimicrobial susceptibility. Subculturing is required for specis identificationand susceptibility testing of isolates. Performed By: #### B MIRYAM #### [facility] [address] [place] [address] Geraldo Kandy BCIDHD3 Positive Normal [facility] Comment on above: Performed By: #### B MIRYAM #### [facility] [address] [place] [address] Geraldo Kandy BCIDHD3 Negative Normal [facility] Comment on above: Performed By: #### B MIRYAM #### [facility] [address] [place] [address] Geraldo Kandy BCIDHD5 YEAST Normal [facility] Comment on above: Performed By: #### B MIRYAM #### [facility] [address] [place] [address] Geraldo Kandy BCIDHD6 SEE BELOW [facility] Comment on above: Result Comment: Note : All genus and species BCID [employer] results will be verified post subculturing via Maldi-Tof MS testing methodology. Performed By: #### B MIRYAM #### [facility] [address] [place] [address] Geraldo Kandy Bottle Set: Set 2 Normal [facility] Comment on above: Performed By: #### B MIRYAM #### [facility] [address] [place] [address] Geraldo Kandy Bottle: Aerobic Normal [facility] Comment on above: Performed By: #### B MIRYAM #### [facility] [address] [place] [address] Geraldo Kandy Naomi albicans Not detected Normal [facility] Comment on above: Performed By: #### B MIRYAM #### [facility] [address] [place] [address] Geraldo Kandy Naomi glabrata Not detected Normal [facility] Comment on above: Performed By: #### B MIRYAM #### [facility] [address] [place] [address] Geraldo Kandy Naomi Krusei Not detected Normal [facility] Comment on above: Performed By: #### B MIRYAM #### [facility] [address] [place] [address] Geraldo Kandy Naomi Parapsilosis Not detected Normal [facility] Comment on above: Performed By: #### B MIRYAM #### [facility] [address] [address] Geraldo Kandy Naomi Tropicalis Not detected Normal [facility] Comment on above: Performed By: #### B MIRYAM #### [facility] [address] [address] Geraldo Kandy E. Cloacae complex Not detected Normal [facility] Comment on above: Performed By: #### B MIRYAM #### [facility] [address] [address] Geraldo Kandy Enterobacteriaceae Detected Invalid Interpretation Code [facility] Comment on above: Performed By: #### B MIRYAM #### [facility] [address] [place] [address] Geraldo Kandy Enterococcus Not detected Normal [facility] Comment on above: Performed By: #### B MIRYAM #### [facility] [address] [place] [address] Geraldo Kandy Escheria coli Detected Normal [facility] Comment on above: Performed By: #### B MIRYAM #### [facility] [address] [place] [address] Geraldo Kandy K. oxytoca Not detected Normal [facility] Comment on above: Performed By: #### B MIRYAM #### [facility] [address] [place] [address] Geraldo Kandy K. pneumoniae Not detected Normal [facility] Comment on above: Performed By: #### B MIRYAM #### [facility] [address] [address] Geraldo Kandy KPC Resistant Gene Not detected Normal [facility] Comment on above: Performed By: #### B MIRYAM #### [facility] [address] [address] Geraldo Kandy List. monocytogenes Not detected Normal [facility] Comment on above: Performed By: #### B MIRYAM #### [facility] [address] [place] [address] Geraldo Kandy mecA Resistant Gene Not detected Normal [facility] Comment on above: Performed By: #### B MIRYAM #### [facility] [address] [place] [address] Geraldo Gaitan Proteus Not detected Normal [facility] Comment on above: Performed By: #### B MIRYAM #### [facility] [address] [place] [address] Geraldobhumi Gaitan Pseud. aeruginosa Not detected Normal [facility] Comment on above: Performed By: #### B MIRYAM #### [facility] [address] [place] [address] Geraldobhumi Gaitan Seratia marcescens Not detected Normal [facility] Comment on above: Performed By: #### B MIRYAM #### [facility] [address] [place] [address] Geraldobhumi Gaitan Site: R AC Normal [facility] Comment on above: Performed By: #### B MIRYAM #### [facility] [address] [place] [address] Geraldobhumi Gaitan Staph. aureus Not detected Normal [facility] Comment on above: Performed By: #### B MIRYAM #### [facility] [address] [place] [address] Geraldo Gaitan Staphylococcus Not detected Normal [facility] Comment on above: Performed By: #### B MIRYAM #### [facility] [address] [place] [address] Geraldo Gaitan Strep. agalactiae Not detected Normal [facility] Comment on above: Performed By: #### B MIRYAM #### [facility] [address] [place] [address] Geraldobhumi Gaitan Strep. pneumoniae Not detected Normal [facility] Comment on above: Performed By: #### B MIRYAM #### [facility] [address] [place] [address] Geraldobhumi Charlesen Strep. pyogenes Not detected Normal [facility] Comment on above: Performed By: #### B MIRYAM #### [facility] [address] [place] [address] Geraldo Kandy Streptococcus Not detected Normal [facility] Comment on above: Performed By: #### B MIRYAM #### [facility] [address] [place] [address] Geraldo Gaitan Aicha/B Resist. Gene Not detected Normal [facility] Comment on above: Performed By: #### B MIRYAM #### [facility] [address] [place], [place] [id number] Geraldo Gaitan CBC AUTO DIFFon 01-02-2020 BASO # 0.0 103/ul Normal 0.0-0.1 [facility] Comment on above: Performed By: #### C BC #### [facility] [address] [place] [address] Geraldo Gaitan Basophils/100 WBC (Bld) 0.3 % Normal 0.2-2.0 [facility] Comment on above: Performed By: #### C BC #### [facility] [address] [place] [address] Geraldo Gaitan EO # 0.0 103/ul Normal 0.0-0.7 [facility] Comment on above: Performed By: #### C BC #### [facility] [address] [place] [address] Geraldo Gaitan Eosinophils/100 WBC (Bld) 0.3 % Critically low 0.9-7.0 [facility] Comment on above: Performed By: #### C BC #### [facility] [address] [place] [address] Geraldo Gaitan Erythrocyte distribution width (RBC) [Ratio] 12.6 % Normal 11.0-15.0 [facility] Comment on above: Performed By: #### C BC #### [facility] [address] [place] [address] Geraldo Gaitan Hematocrit (Bld) [Volume fraction] 42.7 % Normal 36.0-48.0 [facility] Comment on above: Performed By: #### C BC #### [facility] [address] [place], [place] [id number] Geraldo Gaitan Hemoglobin (Bld) [Mass/Vol] 13.6 g/dL Normal 12.0-16.0 [facility] Comment on above: Performed By: #### C BC #### [facility] [address] [place] [address] Geraldobhumi Gaitan IG # 0.04 10e3/ul Critically high 0.00-0.03 [facility] Comment on above: Performed By: #### C BC #### [facility] [address] [place] [address] Geraldobhumi Gaitan IG % 0.3 % Normal 0.0-0.5 [facility] Comment on above: Performed By: #### C BC #### [facility] [address] [place] [address] Geraldo Kandy LYMPH # 0.5 103/ul Critically low 1.2-3.8 [facility] Comment on above: Performed By: #### C BC #### [facility] [address] [place] [address] Geraldo Gaitan Lymphocytes/100 WBC (Bld) 4.4 % Critically low 20.5-60.0 [facility] Comment on above: Performed By: #### C BC #### [facility] [address] [place] [address] Geraldo Gaitan MANUAL DIFF REQ NO Normal [facility] Comment on above: Performed By: #### C BC #### [facility] [address] [place] [address] Geraldo Gaitan MCH (RBC) [Entitic mass] 30.6 pg Normal 26.7-34.0 [facility] Comment on above: Performed By: #### C BC #### [facility] [address] [place] [address] Geraldo Gaitan MCHC (RBC) [Mass/Vol] 31.9 g/dL Normal 29.9-35.2 [facility] Comment on above: Performed By: #### C BC #### [facility] [address] [place] [address] Geraldobhumi Gaitan MCV (RBC) [Entitic vol] 96.0 fL Normal 81.0-99.0 [facility] Comment on above: Performed By: #### C BC #### [facility] [address] [place] [address] Geraldo Kandy MONO # 0.8 103/ul Normal 0.3-0.8 [facility] Comment on above: Performed By: #### C BC #### [facility] [address] [place], [place] [address] Geraldo Charlesen Monocytes/100 WBC (Bld) 6.5 % Normal 1.7-12.0 [facility] Comment on above: Performed By: #### C BC #### [facility] [address] [place], [place] [id number] Geraldo Charlesen NEUT # 10.1 103/ul Critically high 1.4-6.5 [facility] Comment on above: Performed By: #### C BC #### [facility] [address] [place], [place] [id number] Geraldo Kandy Neutrophils/100 WBC (Bld) 88.2 % Critically high 43.0-75.0 [facility] Comment on above: Performed By: #### C BC #### [facility] [address] [place], [place] [id number] Geraldo Gaitan Platelet mean volume (Bld) [Entitic vol] 9.8 fL Normal 9.5-13.5 [facility] Comment on above: Performed By: #### C BC #### [facility] [address] [place], [place] [id number] Geraldo Kandy PLT 254 103/ul Normal 150-450 [facility] Comment on above: Performed By: #### C BC #### [facility] [address] [place], [place] [id number] Geraldo Kandy RBC 4.45 106/ul Normal 4.20-5.40 [facility] Comment on above: Performed By: #### C BC #### [facility] [address] [place], [place] [id number] Geraldobhumi Charlesen CT HEAD WO CONon 01-02-2020 CT HEAD [...] REMY NESS Date: 2020-01-02 19:00 Normal [facility] CULTURE BLOODon 01-02-2020 Microscopic examination of blood, culture Culture Observations: No growth at 5 days Normal [facility] Comment on above: Performed By: #### H GB #### [facility] [address] [place] [address] Geraldo Kandy CULTURE URINEon 01-02-2020 CULTURE URINE Culture Observations : Light growth of mixed genital eliezer.No potential pathogens seen. Normal [facility] Comment on above: Performed By: #### H SAKINA #### [facility] [address] [place] [address] Geraldo Akndy ER URINE PROFILEon 0 Bilirubin Ql (U) Negative Normal NEGATIVE [facility] Comment on above: Performed By: #### MELODY CORDOVA #### [facility] [address] [place] [address] Geraldo Kandy Clarity (U) SL CLOUDY Normal [facility] Comment on above: Performed By: #### KANDICE CORDOVARO #### [facility] [address] [place] [address] Geraldo Kandy Color (U) LT. YELLOW Normal YELLOW [facility] Comment on above: Performed By: #### KANDICE CORDOVARO #### [facility] [address] [place], [place] [id number] Geraldo Kandy ERUAHD A micrscopic examina tion will be performed if indicated. Normal [facility] Comment on above: Performed By: #### KANDICE CORDOVARO #### [facility] [address] [place] [address] Geraldo Kandy Glucose Ql (U) Negative Normal NEGATIVE [facility] Comment on above: Performed By: #### MELODY CORDOVA #### [facility] [address] [place] [address] Geraldo Kandy Hemoglobin Ql (U) SMALL Normal NEGATIVE [facility] Comment on above: Performed By: #### MELODY CORDOVA #### [facility] [address] [place] [address] Geraldo Kandy Ketones Ql (U) Negative Normal NEGATIVE [facility] Comment on above: Performed By: #### MELODY CORDOVA #### [facility] [address] [place] [address] Geraldo Kandy LEUKOCYTES TRACE Normal NEGATIVE [facility] Comment on above: Performed By: #### MELODY CORDOVA #### [facility] [address] [place] [address] Geraldo Kandy Nitrite Ql (U) Negative Normal NEGATIVE [facility] Comment on above: Performed By: #### MELODY CORDOVA #### [facility] [address] [place] [address] Geraldo Kandy pH (U) 7.0 [pH] Normal 5-9 [facility] Comment on above: Performed By: #### MELODY CORDOVA #### [facility] [address] [place] [address] Geraldo Kandy Protein Ql (U) 30 mg/dl Normal [facility] Comment on above: Performed By: #### MELODY CORDOVA #### [facility] [address] [place] [address] Geraldo Kandy SPEC GRAVITY 1.015 Normal 1.005-<=1. 025 [facility] Comment on above: Performed By: #### MELODY CORDOVA #### [facility] [address] [place] [address] Geraldo Kandy UR MICRO IND INDICATED Normal [facility] Comment on above: Performed By: #### MELODY CORDOVA #### [facility] [address] [place] [address] Geraldo Kandy Urobilinogen Qn (U) 0.2 {Eileen'U}/dL Normal [facility] Comment on above: Performed By: #### E MELODY SHAH #### [facility] [address] [place] [address] Geraldo Kandy LACTATE/LACTIC ACIDon 2019 Lactate [Moles/Vol] 1.1 mmol/L Normal 0.7-2.0 [facility] Comment on above: Performed By: #### H GB #### [facility] [address] [place] [address] Geraldo Kandy PROCALCITONINon 01-02-2020 PCT header 1 SEE BELOW Normal [facility] Comment on above: Result Comment: PCT <0.5ng/mL: Systemic infection (sepsis) is not likely, local bacterial infection possible, low risk for progression to severe systemic infection (severe sepsis) Performed By: #### P RL #### [facility] [address] [place] [address] Geraldo Kandy PCT header 2 SEE BELOW Normal [facility] Comment on above: Result Comment: PCT >/=0.5 and <2 ng/mL: Systemic infection (sepsis) is possible, moderate risk for progression to severe systemic infection (severe sepsis) Performed By: #### P RL #### [facility] [address] [place] [address] Geraldo Kandy PCT header 3 SEE BELOW Normal [facility] Comment on above: Result Comment: PCT >/=2.0 and <10 ng/mL: Systemic infection (sepsis) is likely, unless other causes are known, high risk for progession to severe systemic infection(severe sepsis) Performed By: #### P RL #### [facility] [address] [place] [address] Geraldo Kandy PCT header 4 SEE BELOW Normal [facility] Comment on above: Result Comment: PCT >/= 10 ng/mL: Important systemic inflammatory response almost exclusively due to severe bacterial sepsis or septic shock, high likelihood of severe sepsis or septic shock Performed By: #### P RL #### [facility] [address] [place] [address] Geraldo Kandy PROCALCITONIN 0.62 ng/mL Critically high 0.00-0.50 [facility] Comment on above: Performed By: #### P RL #### [facility] [address] [place], [place] [id number] Geraldo Gaitan PROF 14(COMP METB)on 01-01- 020 Albumin [Mass/Vol] 3.6 g/dL Normal 3.5-5.0 [facility] Comment on above: Performed By: #### C MP #### [facility] [address] [place], [place] [address] Geraldo Kandy Albumin/Globulin [Mass ratio] 0.8 {ratio} Normal [facility] Comment on above: Performed By: #### C MP #### [facility] [address] [place] [address] Geraldo Kandy ALP [Catalytic activity/Vol] 95 U/L Normal 38-126 [facility] Comment on above: Performed By: #### C MP #### [facility] [address] [place] [address] Geraldo Kandy ALT [Catalytic activity/Vol] 32 U/L Normal 9-52 [facility] Comment on above: Performed By: #### C MP #### [facility] [address] [place], [place] [address] Geraldo Kandy Anion gap [Moles/Vol] 13.8 mmol/L Normal [facility] Comment on above: Performed By: #### C MP #### [facility] [address] [place], [place] [address] Geraldo Kandy AST [Catalytic activity/Vol] 42 U/L Critically high 14-36 [facility] Comment on above: Performed By: #### C MP #### [facility] [address] [place], [place] [address] Geraldo Kandy Bilirubin [Mass/Vol] 0.5 mg/dL Normal 0.2-1.3 [facility] Comment on above: Performed By: #### C MP #### [facility] [address] [place], [place] [address] Geraldo Kandy Calcium [Mass/Vol] 9.4 mg/dL Normal 8.4-10.2 [facility] Comment on above: Performed By: #### C MP #### [facility] [address] [place] [address] Geraldo Kandy Chloride [Moles/Vol] 100 mmol/L Normal 98-107 [facility] Comment on above: Performed By: #### C MP #### [facility] [address] [place] [id number] Geraldo Kandy CO2 [Moles/Vol] 24.6 mmol/L Normal 22.0-30.0 [facility] Comment on above: Performed By: #### C MP #### [facility] [address] [place] [address] Geraldo Kandy Creatinine [Mass/Vol] 1.36 mg/dL Critically high 0.52-1.04 [facility] Comment on above: Performed By: #### C MP #### [facility] [address] [place] [address] Geraldo Kandy EGFR-AF BULGARIAN 46 mL/min/1.73m2 Critically low >=60 [facility] Comment on above: Performed By: #### C MP #### [facility] [address] [place] [address] Geraldo Kandy EGFR-NON AF BULGARIAN 38 mL/min/1.73m2 Critically low >=60 [facility] Comment on above: Performed By: #### C MP #### [facility] [address] [place] [id number] Geraldo Kandy Globulin (S) [Mass/Vol] 4.5 g/dL Normal [facility] Comment on above: Performed By: #### C MP #### [facility] [address] [place] [id number] Geraldo Kandy Glucose [Mass/Vol] 120 mg/dL Critically high 74-106 [facility] Comment on above: Performed By: #### C MP #### [facility] [address] [place] [id number] Geraldo Kandy Potassium [Moles/Vol] 3.4 mmol/L Normal 3.4-5.0 [facility] Comment on above: Performed By: #### C MP #### [facility] [address] [place] [address] Geraldo Kandy Protein [Mass/Vol] 8.1 g/dL Normal 6.1-8.2 [facility] Comment on above: Performed By: #### C MP #### [facility] [address] [place] [address] Geraldo Kandy Sodium [Moles/Vol] 135 mmol/L Critically low 137-145 [facility] Comment on above: Performed By: #### C MP #### [facility] [address] [place] [address] Geraldo Kandy Urea nitrogen [Mass/Vol] 22.0 mg/dL Critically high 7.0-17.0 [facility] Comment on above: Performed By: #### C MP #### [facility] [address] [place] [address] Geraldo Kandy Urea nitrogen/Creatinine [Mass ratio] 16.2 mg/mg Normal [facility] Comment on above: Performed By: #### C MP #### [facility] [address] [place] [address] Geraldo Kandy RESPIRATORY PANEL PLUSon Adenovirus Not detected Normal NOT DETECTED [facility] Comment on above: Performed By: #### R SPLUS #### [facility] [address] [place] [address] Geraldo Kandy B. Parapertusis Not detected Normal NOT DETECTED [facility] Comment on above: Performed By: #### R SPLUS #### [facility] [address] [place] [address] Geraldo Kandy B. Pertussis Not detected Normal NOT DETECTED [facility] Comment on above: Performed By: #### R SPLUS #### [facility] [address] [place] [address] Geraldo Kandy Chlamydia Pneumoniae Not detected Normal NOT DETECTED [facility] Comment on above: Performed By: #### R SPLUS #### [facility] [address] [place] [address] Geraldo Kandy Coronavirus 229E Not detected Normal NOT DETECTED [facility] Comment on above: Performed By: #### R SPLUS #### [facility] [address] [place] [address] Geraldo Kandy Coronavirus HKU1 Not detected Normal NOT DETECTED [facility] Comment on above: Performed By: #### R SPLUS #### [facility] [address] [place] [address] Geraldo Kandy Coronavirus NL63 Not detected Normal NOT DETECTED [facility] Comment on above: Performed By: #### R SPLUS #### [facility] [address] [place] [address] Geraldo Kandy Coronavirus OC43 Not detected Normal NOT DETECTED [facility] Comment on above: Performed By: #### R SPLUS #### [facility] [address] [place] [address] Geraldo Kandy Influenza A H1 2009 Not detected Normal NOT DETECTED [facility] Comment on above: Performed By: #### R SPLUS #### [facility] [address] [place] [address] Geraldo Kandy Influenza B Not detected Normal NOT DETECTED [facility] Comment on above: Performed By: #### R SPLUS #### [facility] [address] [place] [address] Geraldo Kandy Metapneumovirus Not detected Normal NOT DETECTED [facility] Comment on above: Performed By: #### R SPLUS #### [facility] [address] [place] [address] Geraldo Kandy Mycoplas. Pneumoniae Not detected Normal NOT DETECTED [facility] Comment on above: Performed By: #### R SPLUS #### [facility] [address] [place] [address] Geraldo Kandy Parainfluenza 1 Not detected Normal NOT DETECTED [facility] Comment on above: Performed By: #### R SPLUS #### [facility] [address] [place] [address] Geraldo Kandy Parainfluenza 2 Not detected Normal NOT DETECTED [facility] Comment on above: Performed By: #### R SPLUS #### [facility] [address] [place] [address] Geraldo Kandy Parainfluenza 3 Not detected Normal NOT DETECTED [facility] Comment on above: Performed By: #### R SPLUS #### [facility] [address] [place] [address] Geraldo Kandy Parainfluenza 4 Not detected Normal NOT DETECTED [facility] Comment on above: Performed By: #### R SPLUS #### [facility] [address] [place] [address] Geraldo Kandy Rhino/Enterovirus Not detected Normal NOT DETECTED [facility] Comment on above: Performed By: #### R SPLUS #### [facility] [address] [place] [address] Geraldo Kandy RP2 Header 1 RESPIRATORY PANEL: VIRUSES Normal [facility] Comment on above: Performed By: #### R SPLUS #### [facility] [address] [place] [address] Geraldo Kandy RP2 Header 2 RESPIRATORY PANEL: BACTERIA Normal [facility] Comment on above: Performed By: #### R SPLUS #### [facility] [address] [place] [address] Geraldo Kandy RP2 Header 4 EUA SEE BELOW Normal [facility] Comment on above: Result Comment: This test is not yet approved or cleared by the [place] FDA. When there are no FDA-approved or cleared tests available, and other criteria are met, FDA can make tests available under an emergency access mechanism called an Emergency Use Authorization (EUA). The EUA for this test is supported by the Foreman of Health and Human Service?s (HHS?s) declaration [...] used). Performed By: #### R SPLUS #### [facility] [address] [place] [address] Geraldo Kandy RSV Not detected Normal NOT DETECTED [facility] Comment on above: Performed By: #### R SPLUS #### [facility] [address] [place] [address] Geraldo Kandy SARS-CoV-2 (COVID-19) RNA VIVIENNE+probe Ql (Unsp spec) Not detected Normal NOT DETECTED [facility] Comment on above: Performed By: #### R SPLUS #### [facility] [address] [place] [address] Geraldo Kandy URINE MICROSCOPIC ONLYon BACTERIA MODERATE Normal NONE SEEN [facility] Comment on above: Performed By: #### MELODY CORDOVA #### [facility] [address] [place] [address] Geraldo Kandy Bacteria identified Cx Nom (U) INDICATED Normal [facility] Comment on above: Performed By: #### MELODY CORDOVA #### [facility] [address] [place] [address] Geraldo Kandy CAST NONE SEEN Normal NONE SEEN [facility] Comment on above: Performed By: #### MELODY CORDOVA #### [facility] [address] [place] [address] Geraldo Kandy Crystals LM Nom (Urine sed) NONE SEEN Normal NONE SEEN [facility] Comment on above: Performed By: #### MELODY CORDOVA #### [facility] [address] [place] [address] Geraldo Kandy Epithelial cells LM Ql (Urine sed) RARE Normal [facility] Comment on above: Performed By: #### MELODY CORDOVA #### [facility] [address] [place] [address] Geraldo Kandy MUCOUS NONE SEEN Normal NONE SEEN [facility] Comment on above: Performed By: #### MELODY CORDOVA #### [facility] [address] [place] [address] Geraldo Kandy RBC 0-2 Normal 0-2 [facility] Comment on above: Performed By: #### MELODY CORDOVA #### [facility] [address] [place] [address] Geraldo Kandy WBC 5-10 Normal NONE SEEN [facility] Comment on above: Performed By: #### E MELODY SHAH #### [facility] [address] [place] [address] Geraldo Gaitan XR CHEST 1 Von 01-02-2020 [...] by: REMY NESS Date: 2020-01-02 18:52 Normal [facility] Encounters Encounter Date Encounter Type Care Provider Facility Start: 07-25-2023 End: 07-26-2023 ambulatory Kei Espana MD Facility:[facility] Start: 07-11-2023 End: 07-12-2023 ambulatory Kei Espana MD Facility:[facility] Start: 04-27-2023 Telephone encounter Marisa sierra DO Work Phone: [facility] 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 Start: 04-21-2023 Refill Alexander marcum JAVA MANAGER Work Phone: [facility] Comment on above: Essential hypertensi on (CMS/[facility]) Start: 04-18-2023 End: 04-18-2023 ambulatory ALEXANDER APAIRCIO Not Available Start: 03-08-2023 End: 03-08-2023 ambulatory MARISA RAMOS Not Available Start: 03-01-2023 End: 03-02-2023 ambulatory MARISA RAMOS Not Available Start: 02-22-2023 End: 02-22-2023 ambulatory MARISA RAMOS Not Available Start: 02-08-2023 End: 02-08-2023 ambulatory MARISA RAMOS Not Available Start: 02-01-2023 End: 02-02-2023 ambulatory MARISA RAMOS Not Available Start: 01-28-2023 End: 01-29-2023 ambulatory SHARI MCKEON Not Available Start: 07-26-2022 End: 07-26-2022 ambulatory SHARI MCKEON Facility:[facility] Start: 06-29-2022 End: 06-30-2022 ambulatory SHARI MCKEON Facility:[facility] Start: 10-24-2020 End: 10-25-[address] SHARI MCKEON Facility:[facility] Start: 09-30-2020 End: 10-01-[address] SHARI MCKEON Facility:[facility] Start: 02-01-2020 End: 02-01-[address] CARLOS EDUARDO MENENDEZ Facility:[facility] Start: 01-30-2020 Encounter for preprocedural laboratory examination DR CARLOS EDUARDO MENENDEZ [facility] Start: 01-26-2020 End: 01-27-[address] SHARI MCKEON Facility:[facility] Start: 01-26-2020 End: 01-27-2020 Encounter for preprocedural laboratory examination DR SHARI MCKEON Facility:[facility] Start: 01-02-2020 End: 01-02-[address] BÁRBARA BLUE Facility:[facility] Start: 05-25-2018 End: 05-26-2018 Patient encounter procedure DEFAULT PHYSICIAN Facility:[facility] Plan of Treatment Date Care Activity Detail Author Start: 08-02-2023 End: 08-02-2023 Patient encounter procedure 08/02/2023 9:00 AM EDT Office Visit [facility] [address] [facility] [address] [place] [address] Marisa Ramos DO [address] [facility] [address] [place] [address] [facility] Start: 05-06-2023 Medicare Annual Wellness (AWV) Medicare Annual Wellness (AWV) [facility] Healthcare Immunizations Immunization Date Immunization Notes Care Provider Fa cility 12-23-2022 Influenza, High-dose Seasonal, Quadrivalent, Preservative Free Alexander Aparicio JAVA MANAGER Work Phone: [facility] 12-23-2022 SARS-COV-2 (COVID-19 ) vaccine, mRNA, spike protein, LNP, PF, 50 mcg/0.5 mL Alexander Hackenburg JAVA MANAGER Work Phone: [facility] 12-01-2021 Influenza, Seasonal, Quadrivalent, Adjuvanted Alexander Hackenburg JAVA MANAGER Work Phone: [facility] 12-01-2021 Seasonal, trivalent, recombinant, injectable influenza vaccine, preservative free Alexander Hackenburg JAVA MANAGER Work Phone: [facility] 12-16-2020 Influenza, High-dose Seasonal, Quadrivalent, Preservative Free Alexander Hackenburg JAVA MANAGER Work Phone: [facility] 02-14-2020 zoster vaccine recombinant Alexander Hackenburg JAVA MANAGER Work Phone: [facility] 12-07-2019 influenza, seasonal, injectable Alexander Hackenburg JAVA MANAGER Work Phone: [facility] 11-13-2019 influenza, injectabl e, quadrivalent, preservative free Alexander Hackenburg JAVA MANAGER Work Phone: [facility] 11-13-2019 zoster vaccine recombinant Alexander Hackenburg JAVA MANAGER Work Phone: [facility] 11-12-2019 zoster vaccine recombinant Alexander Hackenburg JAVA MANAGER Work Phone: [facility] 11-29-2018 Seasonal trivalent influenza vaccine, adjuvanted, preservative free Alexander Hackenburg JAVA MANAGER Work Phone: [facility] 11-30-2017 influenza, high dose seasonal, preservative-free Alexander Hackenburg JAVA MANAGER Work Phone: [facility] 11-24-2017 Seasonal trivalent influenza vaccine, adjuvanted, preservative free Alexander Hackenburg JAVA MANAGER Work Phone: [facility] 11-18-2016 influenza, high dose seasonal, preservative-free Alexander Hackenburg JAVA MANAGER Work Phone: [facility] Work Phone: 11-18-2016 pneumococcal conjuga te vaccine, 13 valent Alexander Hackenburg JAVA MANAGER Work Phone: [facility] 11-18-2016 Seasonal trivalent influenza vaccine, adjuvanted, preservative free Alexander Hackenburg JAVA MANAGER Work Phone: [facility] 11-18-2016 tetanus toxoid, redu greg diphtheria toxoid, and acellular pertussis vaccine, adsorbed Alexander Hackenburg JAVA MANAGER Work Phone: [facility] 11-12-2016 pneumococcal polysaccharide vaccine, 23 valent Alexander Hackenburg JAVA MANAGER Work Phone: [facility] 12-11-2015 influenza, high dose seasonal, preservative-free Alexander Hackenburg JAVA MANAGER Work Phone: [facility] 12-30-2014 influenza virus vaccine, whole virus Alexander Hackenburg JAVA MANAGER Work Phone: [facility] 12-30-2014 influenza, injectabl e, quadrivalent, preservative free Alexander Hackenburg JAVA MANAGER Work Phone: [facility] 05-10-2014 pneumococcal conjuga te vaccine, 13 valent Alexander Hackenburg JAVA MANAGER Work Phone: [facility] 12-13-2013 influenza virus vaccine, whole virus Alexander Hackenburg JAVA MANAGER Work Phone: [facility] 01-12-2013 pneumococcal Conjuga te, unspecified formulation Alexander Hackenburg JAVA MANAGER Work Phone: [facility] 01-12-2013 seasonal influenza, intradermal, preservative free Alexander Hackenburg JAVA MANAGER Work Phone: [facility] 12-27-2012 pneumococcal polysaccharide vaccine, 23 valent Alexander Hackenburg JAVA MANAGER Work Phone: [facility] Payers Date Payer Category Payer Unknown 2017 Medicare [employer] MEDICARE ADVANTAGE [facility] MEDICARE ADVANTAGE [id number] 2017-Present [address] [place] [address] [id number] 1959 Unknown [id number] 1945 Unknown [id number] 2.16.840.1.453765.3.579.2.647 1944 Unknown [id number] 2.16.840.1.815330.3.579.2.593 1944 Unknown [id number] 2.16.840.1.386270.3.579.2.593 1944 Unknown [id number] 2.16.840.1.822667.3.579.2.593 1944 Unknown [id number] 2.16.840.1.293944.3.579.2.593 1944 Unknown [id number] 2.16.840.1.904181.3.579.2.593 1944 Unknown [id number] 2.16.840.1.992579.3.579.2.718 1944 Unknown [id number] 2.16.840.1.889741.3.579.2.718 1944 Unknown [id number] 2.16.840.1.007998.3.579.2.125 9 1944 Unknown [id number] 2.16.840.1.103552.3.579.2.125 9 1944 Unknown [id number] 2.16.840.1.562610.3.579.2.125 9 1944 Unknown [id number] 2.16.840.1.801155.3.579.2.125 9 1944 Unknown [id number] 2.16.840.1.657003.3.579.2.125 9 1944 Unknown [id number] 2.16.840.1.613966.3.579.2.125 9 1944 Unknown [id number] 2.16.840.1.362522.3.579.2.125 9 1944 Unknown [id number] 2.16.840.1.109616.3.579.2.125 9 1944 Unknown [id number] 2.16.840.1.708744.3.579.2.125 9 1944 Unknown [id number] 2.16.840.1.728895.3.579.2.125 9 1944 Unknown [id number] 2.16.840.1.031595.3.579.2.196 1945 Unknown [id number] 2.16.840.1.652027.3.579.2.196 Social History Date Type Detail Facility Start: 09-17-2022 Tobacco smoking stat [facility] Never smoked tobacco [facility] Start: 09-17-2022 [...] needs antibiotic called into [facility] in [place]. Allergies: NKDA . Her call back [phone] documented in this encounter [facility] Telephone encounter Note 04-27-2023 Telephone Encounter - Pati Valentino - 04/27/2023 12:51 PM EST Note Date & Type Note Facility 04-27-2023 Telephone encount er Note Pt called stated she had LT TSA 07/26/22 and is getting a cavity filled and needs antibiotic called into [facility] in [place]. Allergies: NKDA . Her call back [phone] [facility] Telephone encounter Note 04-21-2023 Telephone [...] original. Refills sent. documented in this encounter [facility] Healthcare History and physical note 07-27-2022 Note Date & Type Note Facility 07-27-2022 Note [id number] [facility] Clinical Note 07-26-2022 Note Date & Type Note Facility 07-26-[address] [facility] SURGERY Clinical Discharge Summary PERSON INFORMATION Name RADHA CUADRA Age 77 Years 1945 Sex FEMALE Language Tajik PCP SHARI MCKEON Marital Status Med Service Ambulatory Surgery Acct# Arrival 07/26/2022 05:52:10 Visit Reason SURGERY - LEFT REVERSE TOTAL SHOULDER - ARTHREX Acuity LOS 053 02:57 Address: [address] [place] [address] [place] [id number] Comment: PROVIDER INFORMATION VITALS INFORMATION Vital Sign [...] REASON INCOMPLETE INFORMATION (more content not included)... [facility] Clinical Note 02-01-2020 Note Date & Type [...] position. She was sedated by the nurse camp assistant. Bite block was placed in her mouth. [...] patient tolerated the procedure without any difficulties. [facility] SIGNED AND APPROVED BY: DR CARLOS EDUARDO MENENDEZ . 02/07/2020 09:15:00 [facility] Evaluation note Note Date & Type Note Facility Evaluation note Diagnosis Essential hypertension (CMS/HCC) Unspecified essential hypertension documented in this encounter [facility] Healthcare Evaluation note Note Date & Type [...] and content) DATE CREATED AUTHOR 05/27/[address] [facility] DATE CREATED AUTHOR AUTHOR'S ORGANIZ ATION 11/06/2020 [facility] pital DATE CREATED AUTHOR AUTHOR'S ORGANIZ ATION 05/12/2022 [facility] Special[facility] DATE CREATED AUTHOR AUTHOR'S ORGANIZ ATION 07/28/2022 [facility] DATE CREATED AUTHOR AUTHOR'S ORGANIZ ATION 04/19/2023 [facility] d[facility] Specialists EPIC DATE CREATED AUTHOR AUTHOR'S ORGANIZ ATION 07/30/[address] [facility] Reason for Visit (unrecogniz ed section and content) Reason Comments Med Refill Reason 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 Care Teams (unrecognized sec tion and content) Advertising Project Manager Relationship Specialty Start Date End Date Alexander Aparicio NP [address] [place] [facility] [place] [address] PCP - Cristobal FIGUEROA 03/21/21 Shari Mckeon MD [address] [place] [facility] [place] [address] PCP - General Family Medicine 07/26/22 Advertising Project Manager Relationship Specialty Start Date End Date Alexander Aparicio NP [address] [facility] [place] [address] PCP - Cristobal FIGUEROA 03/21/21 Shari Mckeon MD [address] [facility] [place] [address] PCP - General Family Medicine 07/26/22 FOR [...] BE BASED ON THE PRIMARY CLINICAL RECORDS. [facility] [employer] [facility]. provides no warranty or guarantee of the accuracy or completeness of information in this document.
--- NOTE | 2023-08-03 07:58 | PM.CN ---
Consult Note: HPI Data of Consult Patient: known to practice within the last 3 years Consult date: 07/11/23 Requesting Physician: Concha Lopez NP Primary Care Provider: KELLY MCKEON Consult Narrative Reason for consult: low back pain Narrative: 78yof who presents for evaluation. longstanding low back pain, progressively worse in past several months. very active and preventing her from completing activities around home. worst with standing and ambulation. imaging shows severe facet arthropathy in lower lumbar spine. has completed >6 weeks of provider directed home exercise program, with limited benefit. uses otc meds as needed. recently underwent bilateral L4-5 L5-S1 facet medial branch block #1 with >80% improvement in pain and functional ability immediately after and hours following the procedure. cc:: CC: Concha Lopez NP Review of Systems ROS Status of ROS 10 or more systems reviewed and unremarkable except as noted in history and below [facility] Medical History Osteoarthritis ?M19.90 - Unspecified osteoarthritis, unspecified site (ICD-10) Heart murmur ?R01.1 - Cardiac murmur, unspecified (ICD-10) Surgical History History of total shoulder replacement ?Z96.619 - Presence of unspecified artificial shoulder joint (ICD-10) History of total knee arthroplasty ?Z96.659 - Presence of unspecified artificial knee joint (ICD-10) History of carpal tunnel release ?Z98.890 - Other specified postprocedural states (ICD-10) Meds Home Medications and Allergies Home Medications ?Medication ?Instructions ?Recorded ?Confirmed ?Type calcium carbonate 600 mg-vitamin 1 tab PO BID 07/11/23 07/25/23 History D3 5 mcg (200 unit) tablet (Calcium 600 + D(3)) losartan 100 mg tablet 100 mg PO DAILY 07/11/23 07/25/23 History magnesium 250 mg tablet 250 mg PO DAILY 07/11/23 07/25/23 History multivitamin-ferrous 1 tab PO DAILY 07/11/23 07/25/23 History fumarate-folic acid 18 mg-400 mcg tablet (Centrum Women) trazodone 50 mg tablet 50 mg PO DAILY 07/11/23 07/25/23 History vitamin B complex 1 cap PO DAILY 07/11/23 07/25/23 History Allergies Allergy/AdvReac Type Severity Reaction Status Date / Time No Known Drug Allergies Allergy Verified 07/25/23 06:55 Exam Narrative Exam Narrative: Psych-alert and oriented x 3. Attentive and appropriate, constitutionally normal, displays normal mood and affect per situation.? There are no obvious deficits in memory, reasoning, or intellect.? Skin-no obvious rashes, bruising, erythema noted to the patient's area of pain. Extremities- extremities are warm with minimal edema and palpable pulses. Lumbar-no significant tenderness to palpation noted in the lumbar spine and paraspinal musculature.? Pain is elicited with extension, and lateral rotation of the lumbar spine. Range of motion is slightly diminished with these motions due to pain. Facet loading maneuvers are positive bilaterally and do appear to be concordant with the patient's normal complaints of pain.? Coordination remains intact.? Gait remains non-antalgic. Constitutional Documenting provider has reviewed patient's vital signs: yes Common normals: no apparent distress, oriented x3, healthy appearing, alert and well nourished General appearance: cooperative [facility] Common normals: normocephalic, hearing grossly normal bilaterally and moist oral mucous membranes Head and scalp: normocephalic Eye Common normals: PERRL Pupil: PERRL Neck & C-Spine Common normals: full ROM General: normal visual inspection Chest Common normals: inspection of chest normal Respiratory Common normals: normal respiratory effort, no retractions and no use of accessory muscles Neuro Common normals: oriented x3, CN's II-XII intact bilaterally, moves all extremities, no focal motor deficits, no sensory deficits noted and deep tendon reflexes 2+ bilaterally Sensorium/orientation: alert Motor exam: strength 5/5 throughout and no movement abnormalities noted Psych Common normals: mental status grossly normal, thought process normal, cooperative, affect normal, speech normal and activity/motor behavior normal Speech: normal speech Thought process: normal thought process Results Additional Findings Additional findings: If on a controlled substance or opioids, I have checked an [place] report on this patient and there are no aberrancies noted in the prescribing history.??If on a controlled substance or opioid a drug screen was completed and reviewed within the last year, and if there has not been a drug screen completed we ordered one today to monitor higher risk, state monitored pain medication use. As part of providing excellent, safe, comprehensive care, the following was completed at our patient's visit: 1. A medication reconciliation and review to ensure accurate knowledge of current/active medications, including asking our patients to inform us about any laqt-som-meowpze medications or herbal remedies/nutritional supplements/alternative remedies. 2. A review to specifically ensure our patients have had annual screening for screening for depression, screening for tobacco use, and screening for unhealthy alcohol use. For concerning screenings had a discussion with the patient, provided patient education, and recommended follow-up with primary care provider when appropriate. If patient noted with a risk of falling, they received education on strength, gait, and balance training to prevent future risk of falling. Assessment and Plan Assessment and Plan (1) Lumbar spondylosis: Plan 78yof who presents for evaluation. failed conservative measures, as noted. imaging reviewed, as noted. given symptoms and imaging, prudent to attempt diagnostic bilateral l4-5, l5-s1 medial branch block under fluoroscopic guidance with intention of proceeding to radiofrequency ablation. she is in agreement. meds reviewed, no changes. follow up after procedure.
== END 2023-08-03 07:45 | disposition home or self-care (01) ==
LOC: PM 07:44
PROVIDERS: PCP Family Medicine; Visit Provider Nurse Practitioner
DX: M47.816 Spondylosis without myelopathy or radiculopathy, lumbar region (principal)
CPT/HCPCS: G0463

== ENCOUNTER 2023-08-22 07:51 | Day surgery (SDC) | payer MEDICARE, SELFPAY ==
[2023-08-22 08:09] VITALS: BP 132/81; PULSE 71; TEMP 36.2; O2SAT 98
--- OUTSIDE RECORDS SUMMARY | 2023-08-22 08:13 | XMS_ITS | CCD ---
Author Organization [facility] Care Team Providers Care Buffing Wheel Former Automatic Name Role Phone PHYSICIAN, DEFAULT Admitting Unavailable [...] Referring Unavailable MARISA RAMOS Attending Unavailable Alessandra BODY AND FENDER WORKER, Alexander Temo Unavailable Shari Mckeon MD Primary Care Provider Jovi JAIMES, Kei Brian Attending Unavailable Jovi JAIMES, Kei Brian Attending Unavailable Allergies Allergy Classification Reported Allergen(s) Allergy Type Date of Onset Reaction(s) Facility (2 sources) Alendronate; Translations: [Fosamax] Drug Allergy [facility] Repository (2 sources) Alendronate Drug [...] 01-30-2020 Episodic Other aftercare (1 source) Other playground monitor (current) drug therapy; Translations: [OTH EMERGENCY MANAGEMENT PROGRAM SPECIALIST CURRENT DRUG THERAPY] Onset: 02-14-2020 Episodic Other aftercare (1 source) [facility] (current) use of aspirin; Translations: [DETENTION CURRENT USE OF ASPIRIN] Onset: 01-04-2020 Episodic [...] Not Available Consent Formson 07-27-2022 Consent Forms [id number] Normal [facility] Discharge Instructionson Discharge Instructions [id number]#1.00OTGTIFF Normal [facility] MAGR Intraoperative Recordon 07-27-2022 MAGR Intraoperative Record MAGR Intra-Op Record Summary Primary Physician: Marisa Ramos DO Finalized Date/Time: 07/27/22 09:45:04 Pt. Name: RADHA CUADRA BRAD Dangelo/Sex: 1945 FEMALE Med Rec #: [id number] Physician: Marisa Ramos DO Financial #: [id number] Pt. Type: D Room/Bed: / Admit/Disch: 07/26/22 [...] Role Performed Surgeon - Primary Anesthesiologist of Global Safety Officer Record Time In 07/26/22 07:39:00 07/26/22 07:39:00 [...] Paulina Vásquez CST, CST, Kelly CST Mc[place]ray ENGRAVER ORNAMENTAL DESIGN/CSFAZOE ENGRAVER ORNAMENTAL DESIGN Role Performed Scrub Personnel Scrub Personnel Shipping Order Clerk Time In 07/26/22 07:39:00 07/26/22 07:39:00 07/26/22 07:39:00 Time Out 07/26/22 09:49:00 07/26/22 09:49:00 07/26/22 09:49:00 Procedure Arthroplasty Shoulder Arthroplasty Shoulder Arthroplasty Shoulder Total Reverse(Left) Total Reverse(Left) Total Reverse(Left) Last Modified By: Jania Coello RN, RN, Kathleen A Derry RN, Kathleen A 07/26/22 09:49:54 07/26/22 09:49:54 07/26/22 09:49:54 General Comments: Nicholas [place] - Arthrex rep Surgical Procedures MAGR Pre-Care [...] to chemical sources (more content not included)... [facility] Outside Recordson 07-27-2022 Outside Records [id number]#1.00[facility] Provider Orderson 07-27-2022 Provider Orders [id number]#1.00OTGTIFF [facility] Telemetry Stripson Telemetry Strips [id number]#1.00OTGTIFF [facility] Anesthesia Noteon 07-26-2022 Anesthesia Note Patient: [...] 07/26/2022 11:51 EDT] Remy Da Silva MD [facility] Anesthesia Note Patient: RADHA CUADRA Age: [...] obstructive pulmonary disease (COPD) / SNOMED CT 16071281 / Confirmed Heart murmur / SNOMED CT 202282593 / Confirmed Hyperlipidemia / SNOMED CT 41642832 / Confirmed HTN (hypertension) / SNOMED CT 9344500280 / Confirmed Histories Family History: COPD Mother Father Procedure history: Arthroplasty of left knee (6215892704). Arthroplasty of right knee (8814517515). Carpal tunnel release (493968975). Comments: 06/29/2022 13:15 Dorota De Leon RN bilat Colonoscopy (565243037). EGD - Esophagogastroduodenoscopy (8734765488). Disorder of rotator cuff (7425868101). Comments: 06/29/2022 13:14 Dorota De Leon RN [...] Oriented. Review / Management Laboratory Results Plan [employer] Anesthesiologists#(ASA) physical status classification: Class [...] 07/26/2022 08:23 EDT] Remy Da Silva MD [facility] Inpatient Patient Summaryon 07-26-2022 [place] [address] Patient Discharge Instructions Name: RADHA CUADRA : 1945 Patient Address: [address] [place] [address] [place] [address] Primary Care Provider: Name: SHARI MCKEON After you are discharged if you find you have any questions, please, call [phone] ext [phone] to speak to a nurse. Discharge Diagnosis: [...] contact the [facility] Recovery [facility] 04/10 Crisis Hotline -Text 4HLHS qx [phone]. If you received any narcotics, sedation, or [...] business decisions or sign any legal documents [facility] would like to thank you for allowing us to assist you with your healthcare needs. The following includes patient education materials and information regarding your injury/illness. RADHA CUADRAILY has been given the following list of follow-up instructions, prescriptions, and patient education materials: Follow-up Instructions With: Address: When: Marisa Ramos [address] [place] [address], [address] [place] [address] Business (1) 08/03/2022 11:00 AM Medications During [...] fingers frequently (more content not included)... Normal [facility] MAGR Intraoperative Recordon [facility]-26-2022 [facility] MAG[facility] Intra-Op Record Summary Primary Physician: Finalized Date/Time: 07/26/22 07:42:32 Pt. Name: CHRISTI RADHAJANELLE Dangelo/Sex: 1945 FEMALE Med Rec #: [id number] Physician: Marisa Ramos DO Financial #: [id number] Pt. Type: D Room/Bed: / Admit/Disch: 07/26/22 [...] Dorota Myers RN Role Performed Anesthesiologist of Global Safety Officer Global Safety Officer Record Time In 07/26/22 07:13:00 07/26/22 07:13:00 07/26/22 07:13:00 Time Out 07/26/22 07:38:00 07/26/22 07:38:00 07/26/22 07:38:00 Procedure Interscalene Block(Left) Interscalene Block(Left) Interscalene Block(Left) Last Modified By: Kimberley Le RN, Margaret RN Klaehn, Margaret RN 07/26/22 07:39:31 07/26/22 07:39:31 07/26/22 07:39:31 Entry 4 Case Attendee Amy Bates RN Role Performed Global Safety Officer Time In 07/26/22 07:13:00 Time Out 07/26/22 [...] Post-op Destinat (more content not included)... [facility] PACU Record MAGR PACU Record [facility] Primary Physician: Marisa Ramos DO Finalized Date/Time: 07/26/22 10:38:28 Pt. Name: RADHA CUADRA/Sex: 1945 FEMALE Med Rec #: [id number] Physician: Marisa Ramos DO Financial #: [id number] Pt. Type: D Room/Bed: / Admit/Disch: 07/26/22 05:52:10 - Institution: PACU Case Times MAGR Entry 1 In PACU I 07/26/22 09:51:00 Discharge from PACU 07/26/22 10:35:00 I Last Modified By: Warner Bolton RN 07/26/22 10:38:23 Finalized By: Warner Bolton RN Document Signatures Signed By: Warner Bolton RN 07/26/22 10:38 [facility] MAGR Postoperative Recordon 07-26-2022 MAGR Postoperative Record [facility] Record Summary Primary Physician: Marisa Ramos DO Finalized Date/Time: 07/26/22 12:01:17 Pt. Name: RADHA CUADRA/Sex: 1945 FEMALE Med Rec #: [id number] Physician: Marisa Ramso DO Financial #: [id number] Pt. Type: D Room/Bed: / Admit/Disch: 07/26/22 [...] Signed By: Annamarie Samuels RN 07/26/22 12:01 [facility] MAGR Preoperative Recordon 0 07-26-2022 MAGR Preoperative Record MAGR Pre-Op Record Summary Primary Physician: Marisa Ramos DO Finalized Date/Time: 07/26/22 07:44:03 Pt. Name: RADHA CUADRA /Sex: 1945 FEMALE Med Rec #: [id number] Physician: Marisa Ramos DO Financial #: [id number] Pt. Type: D Room/Bed: / Admit/Disch: 07/26/22 [...] Signed By: Kimberley Le RN 07/26/22 07:44 [facility] Operative Report - Surgeon/P pablo 07-26-2022 [...] Estimated blood loss: 50 Complications: None Findings: Ulsi-gt-xade in the glenohumeral joint Procedure summary: Patient [...] on: 07/26/2022 09:35 EDT] Marisa Ramos DO [facility] Patient Handouton 07-26-[address] [...] or concerns, please call the office at [phone] 7. Follow up as scheduled [facility] XR Shoulder 1 View Lefton XR [...] MD 07/27/22 4:01 pm Technologist: JORDON RUVALCABA [facility] Comment on above: Order Comment: chey lt status post shoulder replacement Progress Note - Nurseon 07-12 Progress Note - Nurse Pre-op call made to pt. Pt states understanding of arrival time of 0600 on 07/26/22 and NPO after MN. [Electronically Signed on: 07/23/2022 09:27 EDT] Shantel Gonsalez RN [Verified on: 07/23/2022 09:27 EDT] Shantel Gonsalez RN [facility] Coding Summaryon 07-02-2022 Coding Summary HTMLBase 64 IfbpvaoxNFo1xNc+PGhlYWQ+PE1F WHIiS36akJYagE0LS5hBBL9UCFDZ FUJRIB7TXT7goLM0SOwjU6AfywCr BovgqNSfRL32BIz3OBP4pAluOXhi eN4jaLKsV0z0WmYiRG04lA46UQtd MPYdVzJ2RgGanwvydIYp Z2cgAnDwaAUhJpc+PHRhYmxlIHdp ZVGdILkfBVRbDrLmkLtsFF9mUm4e ZGVyLWNvbGxhcHNlOiBj b4kpKUAkMUgyCI1xzLzuT4WtdMP2 DPLtq3c9Ny83bUZ+LPQdMPM1tGhh WWmjf314XwSjy6kjLJB1 yCFrKNjhVEM7X86ku5T4AMOvCOWm CDB0mUG2iE9kmBqkyddaF1JpkHLr UoG6MVW7vMItuS4wdHxv qumsaG3sRcm+R29YBC3GNIXYBM4W Cuv7C9FtNwstmKE+VZ68AFPwYX32 yJUpgOKdk8olcVh4ViQg NKApHES5oBsgCLkbn4UoTLGmV93m zODgb9Y2MSWvfMtmpEAjMwNzeRH8 gE8aDMzkjqtog9pxfnuj Wehgj1ctxa88nK20O41eTSczRBIm MBE0CAKoBUSbtNumkm0qhM7cIq2+ AEjvj2zha2ypeVm7VvBz TXOzskVfdYdzLSX2r0WmFi83W6Cg gEodc4UlWwq5bf20cMKmv8J2bLO4 EWetHCUlsQ3tBVgiKfH2 GUMoUzDdwA91jKFsXIikPh1xfXzn uMjxTC5bYIOuxvsxOXJbkJ1mLPFx rLGxpPvwIU5uSHWvotaf n249WpRpYNW4QDXawSTmY1WwvS7d WcTgXPUgBRJkL8UxyOMuIZtbM959 YXozArV2UYEsguYuO0Rg JIRogGfrWvH3t4N0Lg4Pl7Ieqrup AUK8ZJlbVFL7EpOvCrWnUrV4F0Ss Dob6UOLzbBgtFD4oM1Te KQJwgxnmzcjsfRI4DKJmXYRitC99 wDShZIrvTz5zv0S0b294MBAyOVMq kT35Pg1dfIrjAKBtjRDS aE4tkmldl8nyogxqUhDpGDKdEGy0 LRz6FJAhaTlqRqOcFDM6NoI9SNT3 rBYvjT5lgOfrgkzpyA3l Oyc+K38yhW5iXVI3GBK9cnzxAVVp vsAhRB77GE08C3DnLghqeTZpqIU+ MZLennOsdQcoEH9yBeVl b2ore9DvQQqdG4XmRPNfSPsfGdf5 TIVhVCY3jGA7cG1tUQWiTXexd3U3 wPN7T2LxcgQykr5nq5cr GQMwEVoeJ15tjTPwm1I2JKCqoDS4 GLInaXkrPeFpjF35Vno+PGNvbGdy x3HlRjmzw2rxm0wniPt3 UpYgPIHbanQfkDzwSIV4v1XtJb50 B03fJMmrVVFyHXGiLBQcNUSusJdq km9ybE5jFi9+PGNvbCB3 mAG3fW0wTXInQsG2ICgzO821GmAu jRMeMmhce2ffp6uehTn6ToAaQKXp vbVxsPyvWUO2d9KwNc83 Q53eFGdeXTJtJFRhZCKsNCQcfGvh ir3kwW7iWj7+SC4qy1fjqe99vX87 dHI+EMNwYXE6tMntBPhk HMJprZ5cRXwbGhC3TEShStKmlG39 qKCoWFpoUu6lqOekkXrxGO8vPWVi apczo200UwIah4wvMVYl dHUmGSjbQIW3L29ux1N6PWGnLOIr WFS8vCZ9lK1giVmcdsvqfBWhaUdt czToaGoiXQkhDFhwA592 IHRvcDsnPlBhdGllbnQgTmFtZTo8 A7VqCyt4EFUciQxdZU4vmPYnLMzz Kz7riYnjxBinVU9nABIo hiubs207GnJkv8sxYUGopHUxGDig ZRQ9K91wu2T4ZGTnQMGyTKG1gKU2 kO0kfTctmackgUNzsMjq toHxyAjdIJjkPZszV899YMRkzZos DjMyfsCjMZLluMY6YV97LT14eRTw v3H7nQP2U6LrVOWoxkdm negkqVA5NFYkVYEmmN04Es1xyHvi Wn2xSNWxCAA8EWXtpSRrY0PbkN6e PvAtFDVfOQDpC7XltSSo NBvpJ833CVxuIbW8BBSfdmVyT7Pg TMTmlVnmKlM0v3X8Lk8IU7V4BJ49 XR23tIQod6H6gGR7H3Tp DZMzpofcbvmkoOI9PNMfDDLkeY01 Qs5bbSvaVn4nIZKyPKE4TFMasNBx Z1NkxF9vUyQeJXYmVKBr P6WsjNKyIIjfW646FBgfJzD3GMSw tzYzM4UjHKZhuTgsLeD9h0A1Wk2R EOr3VU31IG31uDKmd3N7 jWP6H9VpHINzxgdafaabcXO6MPWv VURfjY10Bu5ymClqGa6zCVImNXA6 KBDkgHJmV0UepK8xWtEd ZEPhVYEbM0FmfTEnQTuiV451FRdp SvA5MXCimqAdK3BhYPNhcYkqTdE5 l6M3Ie0CITKuSF04NZN8 zNF3JQ06TM85X7OhZrntrNKheKJ+ PHRhYmxlIHdpZHRoPScxMDAlJyBz tDomLW1pUm6xZMOiQHHm oMpliLVvKoTnk8zuRXJvRZhkGM8h uDdtP0QavJE3BVOvh0j7Im88F55t F7EzyHO+RXAczAY8qIM8 oB6fYsIjDqS7OIsnN212ElNtbFNm Fyydy4mzl6iktDb9FjX6IQZfzwNh oHgaEYT6l2GoNh80N38q XTkhWBGzWMMiDXKhHPRpqRtkbu3k cS2gWf1+OCAifJU3gXE2oH6kCcQd PpR5BBbdY783XtInrDJv Rbijp8ruf1djnQl2CnNqQLPkpxUy aLcjBLZ6c3EtRa24T1SbrPqub9Uu Whn1vp37wHApx2F4sMN1 Z0GcZMJbvevbvNLebEaaVN6fWYAy kekqYYRvaM3iGRHkH7b1BaRhSdX6 VXncV4JcoyK9SYUogWRm UNroXEZ3J82vp2T2ILFzBSRwWVD2 tHE2wH3fjUmmgogdnEUwtOphxqOi pVjaICsvTXquA386KVEk fPtiTZVniO1lSHZuzUOtyBjhNM9l YKImbqvyKkkGNMHmHBjUZRkhEG7U TKy0I7KzLte3CRFdlTyh XD7ytJQcDJfsCt8egToajOoaNK9k ADAhavjrZIYikU7wJBOnsYLocVke PL0nPNDlbzgss183MjZi CIX0TJLyvISuA4BisX1iIpBhTWPa XMZuQ5AgySKjXJpoG061LIddGxT6 XDVbccZkS8CnCYRqxBag CoK3x1G1Vf1qFb4jBv1zAWX5WY65 UZ72rVGga3S9vFF4S0GuYPNoakeg bgkslGD2TGKuBXPmvJ84 xLLmROhsXj1hl1D3b904VCVxZEGq xN70Sd2baCxcVBBtqUOYgN9fdsdj j8zulseyFzIaYGSmETk0 BUv1DXCqkYopEyVwRJV7JvW8IHK9 yQAlyM2oeDqoisbwlH7fJyv+Nzgg QLRnllQ7P8BuSql7LKUf wQylMU8ulMNiWNgnZf2vrKpwxYqk NW2mEFRucvtuJZFcqK5kFFUkwDFy xVgeGH0gELPxbdutu039 ZrFnHGT2LGFghBSzT3PdqS1aLsKn YLWpKLJuZ3LgzRZlQZguW751DDoo QmO8XGGjscXuE7TmUTSl cSeuQvS9j7S8Hr1FUG9BDHB9U6He Dzy1BXEviSccYX5pyDXtLJpwCa9z eTajkOuzKL4qIGTlhmyc POHuiV4cBQTxzHCuaAiySW1kJUGu nbjlf072UuOiPCG0USYfbINbT9Pi hV5dTpEpACApMEDjL4Oe eAWoECaaJ134PFozOnM9RIYfpwXb D1EuJAQlxWlkByV0w3H4Vl9CIDwz dGQ+IV13po93Z5JsQwfb Dcg9TGBtVIR8lEE7oZ2dUIZqZCgx m4H6oWJ9L2ZtqmIpvc5ay4gaETGw AOtyS47vmBAfz7C5RARe fDO2ZLZbrCkkHmKwmW14Ozh+PGNv kTtcj7FiPomuk7jnt3aeoLq8CnYe UJMchoAolMvoMQA9a5Rw To50X08zQYcyGAJoEHHpXXWhWISi eFovcp5ieX5mUx1+BJPseIZ6sWL5 eG8yQjNsJsE4XGtiD241 OvEndTTrVqbvt0yje9ujrRu2YyEj JEGhqkXquJpzURI9r5PuVp18K6Oh zNnnh4ApPan0um92yBVs j8R5hFB1D7ZoGUBanibvgSOfpSqr MY2nOOKdfkzaXGKuyE1nDLUqU6h7 AhBaTuR7YJnuZ8HvfhW2 CXGuiNIjAQSlgMCFsT4poadan7dm rkygKmTxTUDcZAf2QDw2OVChpOki TeYfOIM6HoF0DVL1kTGu fZ6ziCyshwyflX2bLsy+XJa3h9vv pYMeNL2fqCY9DQ23QK66mSPus2O8 mDT8B4PmWLIpvjvuamhh fUG4OGUhVEGbiX90Zy0zgEipYk0n FWXmPLY8YPPgcMJcR4GqiG3xMiYj GUXnQSLnS2QvwOEkKSip T093KFmcTpT5MVNuowOfJ2CdYEZx ePysUhF3q3Q4Fp8BKY56PM22JY84 eXFxl9Q2cDG8X7KiBLCp mkxzoymbwAY8WKUfUYAbsZ29Mx0v gVrtQf4gENSwLAW6CDQoeGKcI1Df oF9lQkWwWKXnKDYgZ1Sx kEPjCIdwO004TZanTfG9NFPcbiOv B5AvEZVgyOwiGfG9p8D1Rp4WBv03 JS77EL83kPWaf9D9uRF1 R9NmNOHtcxsserlvwWG6SRDnJXOt eZ88Kk3vuBmwNr7iEFHlOHT3GAZx iALvL1PvmZ5qAxHeUPDk KDUpZ5BlpUYyCJnfT052JGibEeF9 DGAzvxNbS8LtUCQulWknYzS0r3A2 Fp4XMYfrwoh2C3YxTjbl dHI+OS19FVUwTY05mISkgYQse0vm pBt0EhCnIAKhDAK5dEocTFxln6Ae ZZXgD40rlOWzp0B0AGQw bGx (more content not included)... Normal [facility] C MRSA Screenon 06-30-2022 C MRSA Screen Negative Normal [facility] Comment on above: Performed By: #### 1 [id number] ####[facility] (DEFAULT)[address] [place] [address] Progress Note - Nurseon 04- Progress Note - Nurse Dr. Castro reviewed PAT notes for upcoming surgery 07/26/2022. No new orders at this time [Electronically Signed on: 06/30/2022 11:45 EDT] Annamarie Samuels RN [Verified on: 06/30/2022 11:45 EDT] Annamarie Samuels RN [facility] Provider Orderson 06-30-2022 Provider Orders [id number]#[id number] [facility] .Auto Diff 1on 06-29-2022 Auto [place] % 10 % Normal 1-12 [facility] Comment on above: Performed By: #### 7 [id number], [id number], [id number] ####[facility] (DEFAULT)[address] [place] [address] 42610 Baso Abs# 0.0 x10 Normal 0.0-0.2 [facility] Comment on above: Performed By: #### 7 [id number], [id number], [id number] ####[facility] (DEFAULT)[address] [place] [address] 80367 Basophils/100 WBC (Bld) 0.7 % Normal 0.2-2.0 [facility] Comment on above: Performed By: #### 7 [id number], [id number], [id number] ####[facility] (DEFAULT)[address] [place] [address] 77145 Eos Abs# 0.6 x10 High 0.0-0.4 [facility] Comment on above: Performed By: #### 7 [id number], [id number], [id number] ####[facility] (DEFAULT)[address] [place] [address] 22822 Eosinophils/100 WBC (Bld) 8.5 % High 0.9-4.0 [facility] Comment on above: Performed By: #### 7 [id number], [id number], [id number] ####[facility] (DEFAULT)[address] [place] [address] Lymph Abs# 1.6 x10 Normal 1.3-2.9 [facility] Comment on above: Performed By: #### 7 [id number], [id number], [id number] ####[facility] (DEFAULT)[address] [place] [address] Lymphocytes/100 WBC (Bld) 24 % Normal 14-48 [facility] Comment on above: Performed By: #### 7 [id number], [id number], [id number] ####[facility] (DEFAULT)[address] [place] [address] [place] Abs# 0.7 x10 Normal 0.0-0.8 [facility] Comment on above: Performed By: #### 7 407616, [id number], [id number] ####[facility] (DEFAULT)[address] [place] [address] Neut Abs# 3.8 x10 Normal 1.5-9.2 [facility] Comment on above: Performed By: #### 7 997564, [id number], [id number] ####[facility] (DEFAULT)[address] [place] [address] Neutrophils/100 WBC (Bld) 57 % Normal 44-88 [facility] Comment on above: Performed By: #### 7 [id number], [id number], [id number] ####[facility] (DEFAULT)[address] [place] [address] BMP Standardon 06-29-2022 eGFR Non AA 33 mL/min/1.73m2 Invalid Interpretation Code [facility] Comment on above: Performed By: #### 7 [id number], [id number], [id number] ####[facility] (DEFAULT)[address] [place] [address] eGFR AA 40 mL/min/1.73m2 Invalid Interpretation Code [facility] Comment on above: Performed By: #### 7 453711, [id number], [id number] ####[facility] (DEFAULT)[address] [place] [address] 32503 Anion gap [Moles/Vol] 8.9 mmol/L Normal 5.0-19.0 [facility] Comment on above: Performed By: #### 7 917122, 21591603, [id number] ####[facility] (DEFAULT)[address] [place] [address] 84534 Calcium [Mass/Vol] 9.3 mg/dL Normal 8.9-10.3 [facility] Comment on above: Performed By: #### 7 790297, [id number], [id number] ####[facility] (DEFAULT)[address] [place] [address] 47503 Chloride [Moles/Vol] 102 mmol/L Normal 101-111 [facility] Comment on above: Performed By: #### 7 806941, [id number], [id number] ####[facility] (DEFAULT)[address] [place] [address] 85968 CO2 [Moles/Vol] 28 mmol/L Normal 21-32 [facility] Comment on above: Performed By: #### 7 546973, [id number], [id number] ####[facility] (DEFAULT)[address] [place] [address] 90684 Creatinine [Mass/Vol] 1.53 mg/dL High 0.60-1.30 [facility] Comment on above: Performed By: #### 7 989536, [id number], [id number] ####[facility] (DEFAULT)[address] [place] [address] 21774 Glucose [Mass/Vol] 107.0 mg/dL Normal 74.0-118.0 [facility] Comment on above: Performed By: #### 7 585776, [id number], [id number] ####[facility] (DEFAULT)[address] [place] [address] 27310 Osmolality 279 mOsm/L Invalid Interpretation Code [facility] Comment on above: Performed By: #### 7 280474, [id number], [id number] ####[facility] (DEFAULT)[address] [place] [address] 19005 Potassium [Moles/Vol] 3.9 mmol/L Normal 3.6-5.1 [facility] Comment on above: Performed By: #### 7 500398, [id number], [id number] ####[facility] (DEFAULT)[address] [place] [address] 77598 Sodium [Moles/Vol] 135.0 mmol/L Low 136.0-144 . 0 [facility] Comment on above: Performed By: #### 7 870689, [id number], [id number] ####[facility] (DEFAULT)[address] [place] [address] 04310 Urea nitrogen [Mass/Vol] 36 mg/dL High 8-26 [facility] Comment on above: Performed By: #### 7 190748, [id number], [id number] ####[facility] (DEFAULT)[address] [place] [address] 46346 Urea nitrogen/Creatinine [Mass ratio] 23.5 mg/mg High 4.6-16.2 [facility] Comment on above: Performed By: #### 7 [id number], [id number], [id number] ####[facility] (DEFAULT)[address] [place] [address] 70818 CBC w/ Auto Diffon Erythrocyte distribution width (RBC) [Ratio] 12.8 % Normal 11.5-15.0 [facility] Comment on above: Performed By: #### 7 [id number], [id number], [id number] ####[facility] (DEFAULT)[address] [place] [address] 63831 Hematocrit (Bld) [Volume fraction] 36.4 % Normal 33.7-40.4 [facility] Comment on above: Performed By: #### 7 [id number], [id number], [id number] ####[facility] (DEFAULT)[address] [place] [address] 24944 Hemoglobin (Bld) [Mass/Vol] 12.2 g/dL Normal 11.3-15.9 [facility] Comment on above: Performed By: #### 7 [id number], [id number], [id number] ####[facility] (DEFAULT)[address] [place] [address] Man Diff? Auto Invalid Interpretation Code [facility] Comment on above: Performed By: #### 7 [id number], [id number], [id number] ####[facility] (DEFAULT)[address] [place] [address] MCH (RBC) [Entitic mass] 32 pg Normal 24-34 [facility] Comment on above: Performed By: #### 7 [id number], [id number], [id number] ####[facility] (DEFAULT)[address] [place] [address] MCHC (RBC) [Mass/Vol] 33 g/dL Normal 26-37 [facility] Comment on above: Performed By: #### 7 [id number], [id number], [id number] ####[facility] (DEFAULT)[address] [place] [address] MCV (RBC) [Entitic vol] 97 fL Normal 81-100 [facility] Comment on above: Performed By: #### 7 [id number], [id number], [id number] ####[facility] (DEFAULT)[address] [place] [address] Platelet 336 x10 Normal 138-427 [facility] Comment on above: Performed By: #### 7 [id number], [id number], [id number] ####[facility] (DEFAULT)[address] [place] [address] Platelet mean volume (Bld) [Entitic vol] 7.2 fL Normal 6.3-10.2 [facility] Comment on above: Performed By: #### 7 [id number], [id number], [id number] ####[facility] (DEFAULT)[address] [place] [address] RBC 3.77 x10 Normal 3.70-5.30 [facility] Comment on above: Performed By: #### 7 [id number], [id number], [id number] ####[facility] (DEFAULT)[address] [place] [address] WBC 6.7 x10 Normal 3.5-10.5 [facility] Comment on above: Performed By: #### 7 549259, [id number], [id number] ####[facility] (DEFAULT)[address] [place] [address] UA w Culture if Ind Standard on 06-29-2022 Breakpoint UA Normal [facility] Comment on above: Performed By: #### 1 [id number] #### [facility] (DEFAULT) [address] [place] [address] Color (U) Yellow [facility] Comment on above: Performed By: #### 1 [id number] #### [facility] (DEFAULT) [address] [place] [address] Culture? Not Indicated Invalid Interpretation Code [facility] Comment on above: Result Comment: Resu lt created by rule [id number] Performed By: #### 1 [id number] #### [facility] (DEFAULT) [address] [place] [address] Glucose (U) [Mass/Vol] Negative [facility] Comment on above: Performed By: #### 1 [id number] #### [facility] (DEFAULT) [address] [place] [address] Ketones Ql (U) Negative [facility] Comment on above: Performed By: #### 1 [id number] #### [facility] (DEFAULT) [address] [place] [address] Micro? Not Indicated Invalid Interpretation Code [facility] Comment on above: Result Comment: Resu lt created by rule GL_MAGR_ADD_UA_MICRO Performed By: #### 1 [id number] #### [facility] (DEFAULT) [address] [place] [address] UA Bilirubin Negative Normal [facility] Comment on above: Performed By: #### 1 [id number] #### [facility] (DEFAULT) [address] [place] [address] UA Blood Negative Normal NEGATIVE [facility] Comment on above: Performed By: #### 1 [id number] #### [facility] (DEFAULT) [address] [place] [id number] UA Clarity CLEAR Normal CLEAR [facility] Comment on above: Performed By: #### 1 [id number] #### [facility] (DEFAULT) [address] [place] [address] 24007 UA Leuk Est Negative Normal NEGATIVE [facility] Comment on above: Performed By: #### 1 [id number] #### [facility] (DEFAULT) [address] [place] [address] 27151 UA Nitrite Negative Normal NEGATIVE [facility] Comment on above: Performed By: #### 1 [id number] #### [facility] (DEFAULT) [address] [place] [id number] UA pH 6.5 Normal 07-19 [facility] Comment on above: Performed By: #### 1 [id number] #### [facility] (DEFAULT) [address] [place] [address] UA Protein Negative Normal NEGATIVE [facility] Comment on above: Performed By: #### 1 [id number] #### [facility] (DEFAULT) [address] [place] [address] UA Spec Grav 1.010 Normal 1.001-1.[address] [place] [address] Comment on above: Performed By: #### 1 [id number] #### [facility] (DEFAULT) [address] [place] [address] UA Urobilinogen 0.2 mg/dL Normal 0.2-1.0 [facility] Comment on above: Performed By: #### 1 [id number] #### [facility] (DEFAULT) [address] [place] [address]86 Urine Source Clean Catch Normal [facility] Comment on above: Performed By: #### 1 [id number] #### [facility] (DEFAULT) [address] [place] [address]2447 MRI Shoulder w/o Lefton 04-15 MRI Shoulder [...] by Adarsh Adams on 05/11/2022 1041 Normal [facility] SCREENING MAMMOGRAM W/ARABELLA, BILATERAL*on 11-20-2021 SCREENING [...] VERY IMPORTANT TO YOUR HEALTH. THE CURRENT [employer] OF [employer] AND [employer]PREHENS[employer] NETWORK GUIDELINES RECOMMENDS ANNUAL MAMMOGRAPHY BEGINNING AT AGE 39 THIS FACILITY USES A REMINDER SYSTEM TO ENSURE ALL PATIENTS RECEIVE REMINDER NOTIFICATIONS AT THE APPROPRIATE TIME BASED ON THE RECOMMENDATIONS OF THIS EXAM. Report reported and signed by Alejandro Forte on 11/20/2021 0949 Normal [facility] Comprehensive Metabolic Pane george 06-10-2021 Albumin [Mass/Vol] 4.2 g/dL Normal 3.6-5.1 [facility] Comment on above: Performed By: #### C JARVIS DONIS #### [facility] [address] [place], [place] [id number] Albumin/Globulin [Mass ratio] 1.7 {ratio} Normal 1.0-2.5 [facility] Comment on above: Performed By: #### C MP, LIPD #### [facility] [address] [place], [place] [id number] ALP [Catalytic activity/Vol] 82 U/L Normal 35-119 [facility] Comment on above: Performed By: #### C MP, LIPD #### [facility] [address] [place], [place] [id number] ALT [Catalytic activity/Vol] 15 U/L Normal 6-33 [facility] Comment on above: Result Comment: 02/11 Female reference range changed. Performed By: #### C JEWELS LIPD #### [facility] [address] [place], [place] [id number] Anion gap [Moles/Vol] 15 mmol/L Normal 12-20 [facility] Comment on above: Result Comment: Effe ctive 03/19/2019 reference range changed. Performed By: #### C JEWELS LIPD #### [facility] [address] [place] [id number] AST [Catalytic activity/Vol] 21 U/L Normal 9-34 [facility] Comment on above: Performed By: #### C JEWELS LIPD #### [facility] [address] [facility] [place] [place] [id number] BUN/CREA 28 Ratio High 6-22 [facility] Comment on above: Performed By: #### C MP, LIPD #### [facility] [address] [place] [id number] Calcium [Mass/Vol] 9.3 mg/dL Normal 8.6-10.2 [facility] Comment on above: Performed By: #### C MP, LIPD #### [facility] [address] [place], [place] [id number] Chloride [Moles/Vol] 106 mmol/L Normal 98-107 [facility] Comment on above: Performed By: #### C MP, LIPD #### [facility] [address] [place], [place] [id number] CO2 [Moles/Vol] 24 mmol/L Normal 20-31 [facility] Comment on above: Performed By: #### C MP LIPD #### [facility] [address] [place], [place] [id number] Creatinine [Mass/Vol] 1.1 mg/dL Normal 0.6-1.4 [facility] Comment on above: Performed By: #### JARVIS Anaya MP #### [facility] [address] [place], [place] [id number] eGFRAA 58 mL/min/1.73m2 Low >60 [facility] Comment on above: Performed By: #### C JARVIS DONIS #### [facility] [address] [place], [place] [id number] eGFRNAA 48 mL/min/1.73m2 Low >60 [facility] Comment on above: Performed By: #### C JARVIS DONIS #### [facility] [address] [place], [place] [id number] Globulin (S) [Mass/Vol] 2.5 g/dL Normal 1.9-3.7 [facility] Comment on above: Performed By: #### C JARVIS DONIS #### [facility] [address] [place], [place] [id number] Glucose [Mass/Vol] 94 mg/dL Normal 65-99 [facility] Comment on above: Result Comment: For FASTING Glucose --- ADA reference ranges: Normal 65-99 mg/dl Prediabetes 100-125 Diabetes >/= 126 Performed By: #### C JARVIS DONIS #### [facility] [address] [place], [place] [id number] Potassium [Moles/Vol] 4.4 mmol/L Normal 3.5-5.5 [facility] Comment on above: Performed By: #### C JARVIS DONIS #### [facility] [address] [place], [place] [id number] Protein [Mass/Vol] 6.7 g/dL Normal 6.1-8.1 [facility] Comment on above: Performed By: #### C JEWELS LIPTeresa #### [facility] [address] [place], [place] [id number] Sodium [Moles/Vol] 141 mmol/L Normal 135-146 [facility] Comment on above: Performed By: #### C MP, LIPD #### [facility] [address] [place], [place] [id number] TBIL <0.3 Normal [facility] Comment on above: Performed By: #### C JEWELS LIPD #### [facility] [address] [place], [place] [id number] Urea nitrogen [Mass/Vol] 32 mg/dL High 7-25 [facility] Comment on above: Performed By: #### C JEWELS LIPD #### [facility] [address] [place], [place] [id number] Lipid Panelon 06-10-2021 Cholesterol [Mass/Vol] 237 mg/dL High 125-200 [facility] Comment on above: Result Comment: Low risk < 200mg/dL Borderline risk 201-239 mg/dl High risk > or equal to 240 Performed By: #### C JEWELS LIPTeresa #### [facility] [address] [place], [place] [id number] Cholesterol in HDL [Mass/Vol] 100 mg/dL Normal >40 [facility] Comment on above: Result Comment: High Cardiovascular Risk HDL <40 mg/dL Low Cardiovascular Risk HDL > or equal to 60 mg/dl Performed By: #### C JEWELS LIPD #### [facility] [address] [place], [place] [id number] Cholesterol in LDL [Mass/Vol] 124 mg/dL Normal [facility] Comment on above: Result Comment: LDL ATP III CLASSIFICATION LDL less than 100 mg/dl Optimal LDL 100-129 mg/dl Near or above optimal LDL 130-159 Borderline high LDL 160-189 High LDL greater than 189 mg/dl Very High Performed By: #### C JEWELS, LIPD #### [facility] [address] [place], [place] [id number] Cholesterol in VLDL [Mass/Vol] 13 mg/dL Normal [facility] Comment on above: Performed By: #### C EJWELS LIPD #### [facility] [address] [place], [place] [id number] Cholesterol.total/Ch olesterol in HDL [Mass ratio] 2 {ratio} Normal [facility] Comment on above: Performed By: #### C JEWELS LIPD #### [facility] [address] [place], [place] [id number] Triglyceride [Mass/Vol] 67 mg/dL Normal 30-150 [facility] Comment on above: Result Comment: TRIG ATPIII CLASSIFICATIONS TRIG less than 150 mg/dl Normal TRIG 150-199 mg/dl Borderline High TRIG 200-500 mg/dl High TRIG greather than 500 mg/dl Very High Performed By: #### C MP, LIPD #### [facility] [address] [place], [place] [id number] ECHOCARDIO M/2D COMPLETEon 0 10-24-2020 ECHOCARDIO M/2D COMPLETE Patient: RADHA CUADRA Exam Date: 10/24/2020 : 1945 Gender:F Ordering : DR SHARI MCKEON M.D. Admission #: [id number] Family : Order #: [id number] CLICK HERE TO VIEW EXAM ECHOCARDIOGRAM REPORT [...] Area(A4C): 13.90 cm2 Left Atrium Systolic Volume(A2C): 01586 mm3 Left Atrium Systolic Volume(A4C): 35702 mm3 Mitral Valve MV E to A Ratio: 1.10 Mitral Valve A-Wave Peak Velocity: 68.60 cm/s Mitral Valve E-Wave Peak Velocity: 74.50 cm/s Deceleration Time: 259 ms Right Ventricle Aorta AO Root Diam: 2.60 cm Aortic Valve Peak Velocity (Antegrade Flow): 161.00 cm/s, 230.00 cm/s AoV Area (Peak Daniel): 1.93 cm2 AoV Area (VTI): 1.90 cm2 Deceleration Beaver: 1880 mm/s2 Pressure Half-Time: 528 ms Peak [...] Teo Burrows M.D. on 10/24/2020 at 19:17 [facility] HEMOGLOBINon 09-30-2020 Hemoglobin (Bld) [Mass/Vol] 12.3 g/dL Normal 12.0-16.0 [facility] Comment on above: Performed By: #### H GB #### [facility] [address] [place] [address] Geraldo Gaitan H PYLORI TISSUEon 02-01-2020 H PYL TISSUE, UREASE Negative Normal NEGATIVE [facility] Comment on above: Performed By: #### H GB #### [facility] [address] [place] [address] Geraldo Gaitan COVID-19 PCRon 01-27-2020 SARS-CoV-2 (COVID-19) RNA VIVIENNE+probe Ql (Unsp spec) Not detected Normal Not Detected [facility] Comment on above: Result Comment: This nucleic acid amplification test was developed and its performance characteristics determined by [employer]. Nucleic acid amplification tests include PCR and [...] Performed By: #### C VDSTAT, CVDPCR #### [facility] [address] [place], [place] [address] Geraldo Gaitan PRIORITY COVID PROCESSINGon 01-27-2020 Comment Comment Normal [facility] Comment on above: Result Comment: Rece ived Performed By: #### C VDSTAT, CVDPCR #### [facility] [address] [id number] Geraldo Gaitan CULTURE BLOODon 01-08-2020 Microscopic examination [...] F Trimethoprim/Sulfamethoxazol e <=20 S F Normal [facility] Comment on above: Performed By: #### H GB #### [facility] [address] [place] [address] Geraldo Gaitan BLOOD CULTURE ID PANELon A. baumannii Not detected Normal [facility] Comment on above: Performed By: #### B MIRYAM #### [facility] [address] [place] [address] Geraldo Kandy BCID CONTROLS PASSED Normal [facility] Comment on above: Performed By: #### B MIRYAM #### [facility] [address] [place] [address] Geraldo Gaitan BCIDBTHD BLOOD CULTURE BOTTLE INFORMATION Normal [facility] Comment on above: Performed By: #### B MIRYAM #### [facility] [address] [place] [address] Geraldo Gaitan BCIDHD1 ANTIMICROBIAL RESIST ANCE GENES Normal [facility] Comment on above: Performed By: #### B MIRYAM #### [facility] [address] [place] [address] Geraldo Kandy BCIDHD2 SEE BELOW [facility] Comment on above: Result Comment: KPC- carbapenem resistance gene, mecA- methecillin resistance gene, van A/B- vancomycin resistance gene Note: Antimicrobial resitance can occur via multiple mechanisms. A Not Detected result for the [employer] antomicrobial resistance gene assays does not indicate antimicrobial susceptibility. Subculturing is required for specis identificationand susceptibility testing of isolates. Performed By: #### B MIRYAM #### [facility] [address] [place] [address] Geraldo Kandy BCIDHD3 Positive Normal [facility] Comment on above: Performed By: #### B MIRYAM #### [facility] [address] [place] [address] Geraldo Kandy BCIDHD3 Negative Normal [facility] Comment on above: Performed By: #### B MIRYAM #### [facility] [address] [place] [address] Geraldo Kandy BCIDHD5 YEAST Normal [facility] Comment on above: Performed By: #### B MIRYAM #### [facility] [address] [place] [address] Geraldo Kandy BCIDHD6 SEE BELOW [facility] Comment on above: Result Comment: Note : All genus and species BCID [employer] results will be verified post subculturing via Maldi-Tof MS testing methodology. Performed By: #### B MIRYAM #### [facility] [address] [place] [address] Geraldo Kandy Bottle Set: Set 2 Normal [facility] Comment on above: Performed By: #### B MIRYAM #### [facility] [address] [place] [address] Geraldo Kandy Bottle: Aerobic Normal [facility] Comment on above: Performed By: #### B MIRYAM #### [facility] [address] [place] [address] Geraldo Kandy Naomi albicans Not detected Normal [facility] Comment on above: Performed By: #### B MIRYAM #### [facility] [address] [place] [address] Geraldo Kandy Naomi glabrata Not detected Normal [facility] Comment on above: Performed By: #### B MIRYAM #### [facility] [address] [place] [address] Geraldo Kandy Naomi Krusei Not detected Normal [facility] Comment on above: Performed By: #### B MIRYAM #### [facility] [address] [place] [address] Geraldo Kandy Naomi Parapsilosis Not detected Normal [facility] Comment on above: Performed By: #### B MIRYAM #### [facility] [address] [address] Geraldo Kandy Naomi Tropicalis Not detected Normal [facility] Comment on above: Performed By: #### B MIRYAM #### [facility] [address] [address] Geraldo Kandy E. Cloacae complex Not detected Normal [facility] Comment on above: Performed By: #### B MIRYAM #### [facility] [address] [address] Geraldo Kandy Enterobacteriaceae Detected Invalid Interpretation Code [facility] Comment on above: Performed By: #### B MIRYAM #### [facility] [address] [place] [address] Geraldo Kandy Enterococcus Not detected Normal [facility] Comment on above: Performed By: #### B MIRYAM #### [facility] [address] [place] [address] Geraldo Kandy Escheria coli Detected Normal [facility] Comment on above: Performed By: #### B MIRYAM #### [facility] [address] [place] [address] Geraldo Kandy K. oxytoca Not detected Normal [facility] Comment on above: Performed By: #### B MIRYAM #### [facility] [address] [place] [address] Geraldo Kandy K. pneumoniae Not detected Normal [facility] Comment on above: Performed By: #### B MIRYAM #### [facility] [address] [address] Geraldo Kandy KPC Resistant Gene Not detected Normal [facility] Comment on above: Performed By: #### B MIRYAM #### [facility] [address] [address] Geraldo Kandy List. monocytogenes Not detected Normal [facility] Comment on above: Performed By: #### B MIRYAM #### [facility] [address] [place] [address] Geraldo Kandy mecA Resistant Gene Not detected Normal [facility] Comment on above: Performed By: #### B MIRYAM #### [facility] [address] [place] [address] Geraldo Gaitan Proteus Not detected Normal [facility] Comment on above: Performed By: #### B MIRYAM #### [facility] [address] [place] [address] Geraldobhumi Gaitan Pseud. aeruginosa Not detected Normal [facility] Comment on above: Performed By: #### B MIRYAM #### [facility] [address] [place] [address] Geraldobhumi Gaitan Seratia marcescens Not detected Normal [facility] Comment on above: Performed By: #### B MIRYAM #### [facility] [address] [place] [address] Geraldobhumi Gaitan Site: R AC Normal [facility] Comment on above: Performed By: #### B MIRYAM #### [facility] [address] [place] [address] Geraldobhumi Gaitan Staph. aureus Not detected Normal [facility] Comment on above: Performed By: #### B MIRYAM #### [facility] [address] [place] [address] Geraldo Gaitan Staphylococcus Not detected Normal [facility] Comment on above: Performed By: #### B MIRYAM #### [facility] [address] [place] [address] Geraldo Gaitan Strep. agalactiae Not detected Normal [facility] Comment on above: Performed By: #### B MIRYAM #### [facility] [address] [place] [address] Geraldobhumi Gaitan Strep. pneumoniae Not detected Normal [facility] Comment on above: Performed By: #### B MIRYAM #### [facility] [address] [place] [address] Geraldobhumi Charlesen Strep. pyogenes Not detected Normal [facility] Comment on above: Performed By: #### B MIRYAM #### [facility] [address] [place] [address] Geraldo Kandy Streptococcus Not detected Normal [facility] Comment on above: Performed By: #### B MIRYAM #### [facility] [address] [place] [address] Geraldo Gaitan Aicha/B Resist. Gene Not detected Normal [facility] Comment on above: Performed By: #### B MIRYAM #### [facility] [address] [place], [place] [address] Geraldo Gaitan CBC AUTO DIFFon 01-02-2020 BASO # 0.0 103/ul Normal 0.0-0.1 [facility] Comment on above: Performed By: #### C BC #### [facility] [address] [place] [address] Geraldo Gaitan Basophils/100 WBC (Bld) 0.3 % Normal 0.2-2.0 [facility] Comment on above: Performed By: #### C BC #### [facility] [address] [place] [address] Geraldo Gaitan EO # 0.0 103/ul Normal 0.0-0.7 [facility] Comment on above: Performed By: #### C BC #### [facility] [address] [place] [address] Geraldo Gaitan Eosinophils/100 WBC (Bld) 0.3 % Critically low 0.9-7.0 [facility] Comment on above: Performed By: #### C BC #### [facility] [address] [place] [address] Geraldo Gaitan Erythrocyte distribution width (RBC) [Ratio] 12.6 % Normal 11.0-15.0 [facility] Comment on above: Performed By: #### C BC #### [facility] [address] [place] [address] Geraldo Gaitan Hematocrit (Bld) [Volume fraction] 42.7 % Normal 36.0-48.0 [facility] Comment on above: Performed By: #### C BC #### [facility] [address] [place], [place] [address] Grealdo Gaitan Hemoglobin (Bld) [Mass/Vol] 13.6 g/dL Normal 12.0-16.0 [facility] Comment on above: Performed By: #### C BC #### [facility] [address] [place] [address] Geraldobhumi Gaitan IG # 0.04 10e3/ul Critically high 0.00-0.03 [facility] Comment on above: Performed By: #### C BC #### [facility] [address] [place] [address] Geraldobhumi Gaitan IG % 0.3 % Normal 0.0-0.5 [facility] Comment on above: Performed By: #### C BC #### [facility] [address] [place] [address] Geraldo Kandy LYMPH # 0.5 103/ul Critically low 1.2-3.8 [facility] Comment on above: Performed By: #### C BC #### [facility] [address] [place] [address] Geraldo Gaitan Lymphocytes/100 WBC (Bld) 4.4 % Critically low 20.5-60.0 [facility] Comment on above: Performed By: #### C BC #### [facility] [address] [place] [address] Geraldo Gaitan MANUAL DIFF REQ NO Normal [facility] Comment on above: Performed By: #### C BC #### [facility] [address] [place] [address] Geraldo Gaitan MCH (RBC) [Entitic mass] 30.6 pg Normal 26.7-34.0 [facility] Comment on above: Performed By: #### C BC #### [facility] [address] [place] [address] Geraldo Gaitan MCHC (RBC) [Mass/Vol] 31.9 g/dL Normal 29.9-35.2 [facility] Comment on above: Performed By: #### C BC #### [facility] [address] [place] [address] Geraldobhumi Gaitan MCV (RBC) [Entitic vol] 96.0 fL Normal 81.0-99.0 [facility] Comment on above: Performed By: #### C BC #### [facility] [address] [place] [address] Geraldo Kandy MONO # 0.8 103/ul Normal 0.3-0.8 [facility] Comment on above: Performed By: #### C BC #### [facility] [address] [place], [place] [address] Geraldo Charlesen Monocytes/100 WBC (Bld) 6.5 % Normal 1.7-12.0 [facility] Comment on above: Performed By: #### C BC #### [facility] [address] [place], [place] [address] Geraldo Charlesen NEUT # 10.1 103/ul Critically high 1.4-6.5 [facility] Comment on above: Performed By: #### C BC #### [facility] [address] [place], [place] [address] Geraldo Kandy Neutrophils/100 WBC (Bld) 88.2 % Critically high 43.0-75.0 [facility] Comment on above: Performed By: #### C BC #### [facility] [address] [place], [place] [address] Geraldo Gaitan Platelet mean volume (Bld) [Entitic vol] 9.8 fL Normal 9.5-13.5 [facility] Comment on above: Performed By: #### C BC #### [facility] [address] [place], [place] [address] Geraldo Kandy PLT 254 103/ul Normal 150-450 [facility] Comment on above: Performed By: #### C BC #### [facility] [address] [place], [place] [address] Geraldo Kandy RBC 4.45 106/ul Normal 4.20-5.40 [facility] Comment on above: Performed By: #### C BC #### [facility] [address] [place], [place] [address] Geraldobhumi Charlesen CT HEAD WO CONon 01-02-2020 [...] REMY NESS Date: 2020-01-02 19:00 Normal [facility] CULTURE BLOODon 01-02-2020 Microscopic examination of blood, culture Culture Observations: No growth at 5 days Normal [facility] Comment on above: Performed By: #### H GB #### [facility] [address] [place] [address] Geraldo Kandy CULTURE URINEon 01-02-2020 CULTURE URINE Culture Observations : Light growth of mixed genital eliezer.No potential pathogens seen. Normal [facility] Comment on above: Performed By: #### H SAKINA #### [facility] [address] [place] [address] Geraldo Kandy ER URINE PROFILEon 0 Bilirubin Ql (U) Negative Normal NEGATIVE [facility] Comment on above: Performed By: #### MELODY CORDOVA #### [facility] [address] [place] [address] Geraldo Kandy Clarity (U) SL CLOUDY Normal [facility] Comment on above: Performed By: #### KANDICE CORDOVARO #### [facility] [address] [place] [address] Geraldo Kandy Color (U) LT. YELLOW Normal YELLOW [facility] Comment on above: Performed By: #### KANDICE CORDOVARO #### [facility] [address] [place], [place] [id number] Geraldo Kandy ERUAHD A micrscopic examina tion will be performed if indicated. Normal [facility] Comment on above: Performed By: #### KANDICE CORDOVARO #### [facility] [address] [place] [address] Geraldo Kandy Glucose Ql (U) Negative Normal NEGATIVE [facility] Comment on above: Performed By: #### MELODY CORDOVA #### [facility] [address] [place] [address] Geraldo Kandy Hemoglobin Ql (U) SMALL Normal NEGATIVE [facility] Comment on above: Performed By: #### MELODY CORDOVA #### [facility] [address] [place] [address] Geraldo Kandy Ketones Ql (U) Negative Normal NEGATIVE [facility] Comment on above: Performed By: #### MELODY CORDOVA #### [facility] [address] [place] [address] Geraldo Kandy LEUKOCYTES TRACE Normal NEGATIVE [facility] Comment on above: Performed By: #### MELODY CORDOVA #### [facility] [address] [place] [address] Geraldo Kandy Nitrite Ql (U) Negative Normal NEGATIVE [facility] Comment on above: Performed By: #### MELODY CORDOVA #### [facility] [address] [place] [address] Geraldo Kandy pH (U) 7.0 [pH] Normal 5-9 [facility] Comment on above: Performed By: #### MELODY CORDOVA #### [facility] [address] [place] [address] Geraldo Kandy Protein Ql (U) 30 mg/dl Normal [facility] Comment on above: Performed By: #### MELODY CORDOVA #### [facility] [address] [place] [address] Geraldo Kandy SPEC GRAVITY 1.015 Normal 1.005-<=1. 025 [facility] Comment on above: Performed By: #### MELODY CORDOVA #### [facility] [address] [place] [address] Geraldo Kandy UR MICRO IND INDICATED Normal [facility] Comment on above: Performed By: #### MELODY CORDOVA #### [facility] [address] [place] [address] Geralod Kandy Urobilinogen Qn (U) 0.2 {Eileen'U}/dL Normal [facility] Comment on above: Performed By: #### E MELODY SHAH #### [facility] [address] [place] [address] Geraldo Kandy LACTATE/LACTIC ACIDon 2019 Lactate [Moles/Vol] 1.1 mmol/L Normal 0.7-2.0 [facility] Comment on above: Performed By: #### H GB #### [facility] [address] [place] [address] Geraldo Kandy PROCALCITONINon 01-02-2020 PCT header 1 SEE BELOW Normal [facility] Comment on above: Result Comment: PCT <0.5ng/mL: Systemic infection (sepsis) is not likely, local bacterial infection possible, low risk for progression to severe systemic infection (severe sepsis) Performed By: #### P RL #### [facility] [address] [place] [address] Geraldo Kandy PCT header 2 SEE BELOW Normal [facility] Comment on above: Result Comment: PCT >/=0.5 and <2 ng/mL: Systemic infection (sepsis) is possible, moderate risk for progression to severe systemic infection (severe sepsis) Performed By: #### P RL #### [facility] [address] [place] [address] Geraldo Kandy PCT header 3 SEE BELOW Normal [facility] Comment on above: Result Comment: PCT >/=2.0 and <10 ng/mL: Systemic infection (sepsis) is likely, unless other causes are known, high risk for progession to severe systemic infection(severe sepsis) Performed By: #### P RL #### [facility] [address] [place] [address] Geraldo Kandy PCT header 4 SEE BELOW Normal [facility] Comment on above: Result Comment: PCT >/= 10 ng/mL: Important systemic inflammatory response almost exclusively due to severe bacterial sepsis or septic shock, high likelihood of severe sepsis or septic shock Performed By: #### P RL #### [facility] [address] [place] [address] Geraldo Kandy PROCALCITONIN 0.62 ng/mL Critically high 0.00-0.50 [facility] Comment on above: Performed By: #### P RL #### [facility] [address] [place], [place] [id number] Geraldo Gaitan PROF 14(COMP METB)on 01-01- 020 Albumin [Mass/Vol] 3.6 g/dL Normal 3.5-5.0 [facility] Comment on above: Performed By: #### C MP #### [facility] [address] [place], [place] [id number] Geraldo Kandy Albumin/Globulin [Mass ratio] 0.8 {ratio} Normal [facility] Comment on above: Performed By: #### C MP #### [facility] [address] [place] [address] Geraldo Kandy ALP [Catalytic activity/Vol] 95 U/L Normal 38-126 [facility] Comment on above: Performed By: #### C MP #### [facility] [address] [place] [address] Geraldo Kandy ALT [Catalytic activity/Vol] 32 U/L Normal 9-52 [facility] Comment on above: Performed By: #### C MP #### [facility] [address] [place], [place] [id number] Geraldo Kandy Anion gap [Moles/Vol] 13.8 mmol/L Normal [facility] Comment on above: Performed By: #### C MP #### [facility] [address] [place], [place] [id number] Geraldo Kandy AST [Catalytic activity/Vol] 42 U/L Critically high 14-36 [facility] Comment on above: Performed By: #### C MP #### [facility] [address] [place], [place] [address] Geraldo Kandy Bilirubin [Mass/Vol] 0.5 mg/dL Normal 0.2-1.3 [facility] Comment on above: Performed By: #### C MP #### [facility] [address] [place], [place] [address] Geraldo Kandy Calcium [Mass/Vol] 9.4 mg/dL Normal 8.4-10.2 [facility] Comment on above: Performed By: #### C MP #### [facility] [address] [address] Geraldo Kandy Chloride [Moles/Vol] 100 mmol/L Normal 98-107 [facility] Comment on above: Performed By: #### C MP #### [facility] [address] [id number] Geraldo Kandy CO2 [Moles/Vol] 24.6 mmol/L Normal 22.0-30.0 [facility] Comment on above: Performed By: #### C MP #### [facility] [address] [address] Geraldo Kandy Creatinine [Mass/Vol] 1.36 mg/dL Critically high 0.52-1.04 [facility] Comment on above: Performed By: #### C MP #### [facility] [address] [address] Geraldo Kandy EGFR-AF NIGERIEN 46 mL/min/1.73m2 Critically low >=60 [facility] Comment on above: Performed By: #### C MP #### [facility] [address] [address] Geraldo Kandy EGFR-NON AF NIGERIEN 38 mL/min/1.73m2 Critically low >=60 [facility] Comment on above: Performed By: #### C MP #### [facility] [address] [id number] Geraldo Kandy Globulin (S) [Mass/Vol] 4.5 g/dL Normal [facility] Comment on above: Performed By: #### C MP #### [facility] [address] [id number] Geraldo Kandy Glucose [Mass/Vol] 120 mg/dL Critically high 74-106 [facility] Comment on above: Performed By: #### C MP #### [facility] [address] [id number] Geraldo Kandy Potassium [Moles/Vol] 3.4 mmol/L Normal 3.4-5.0 [facility] Comment on above: Performed By: #### C MP #### [facility] [address] [place] [address] Geraldo Kandy Protein [Mass/Vol] 8.1 g/dL Normal 6.1-8.2 [facility] Comment on above: Performed By: #### C MP #### [facility] [address] [place] [address] Geraldo Kandy Sodium [Moles/Vol] 135 mmol/L Critically low 137-145 Th [facility] Comment on above: Performed By: #### C MP #### [facility] [address] [place] [address] Geraldo Kandy Urea nitrogen [Mass/Vol] 22.0 mg/dL Critically high 7.0-17.0 [facility] Comment on above: Performed By: #### C MP #### [facility] [address] [place] [address] Geraldo Kandy Urea nitrogen/Creatinine [Mass ratio] 16.2 mg/mg Normal [facility] Comment on above: Performed By: #### C MP #### [facility] [address] [place] [address] Geraldo Kandy RESPIRATORY PANEL PLUSon Adenovirus Not detected Normal NOT DETECTED [facility] Comment on above: Performed By: #### R SPLUS #### [facility] [address] [place] [address] Geraldo Kandy B. Parapertusis Not detected Normal NOT DETECTED [facility] Comment on above: Performed By: #### R SPLUS #### [facility] [address] [place] [address] Geraldo Kandy B. Pertussis Not detected Normal NOT DETECTED [facility] Comment on above: Performed By: #### R SPLUS #### [facility] [address] [place] [address] Geraldo Kandy Chlamydia Pneumoniae Not detected Normal NOT DETECTED [facility] Comment on above: Performed By: #### R SPLUS #### [facility] [address] [place] [address] Geraldo Kandy Coronavirus 229E Not detected Normal NOT DETECTED [facility] Comment on above: Performed By: #### R SPLUS #### [facility] [address] [place] [address] Geraldo Kandy Coronavirus HKU1 Not detected Normal NOT DETECTED [facility] Comment on above: Performed By: #### R SPLUS #### [facility] [address] [place] [address] Geraldo Kandy Coronavirus NL63 Not detected Normal NOT DETECTED [facility] Comment on above: Performed By: #### R SPLUS #### [facility] [address] [place] [address] Geraldo Kandy Coronavirus OC43 Not detected Normal NOT DETECTED [facility] Comment on above: Performed By: #### R SPLUS #### [facility] [address] [place] [address] Geraldo Kandy Influenza A H1 2009 Not detected Normal NOT DETECTED [facility] Comment on above: Performed By: #### R SPLUS #### [facility] [address] [place] [address] Geraldo Kandy Influenza B Not detected Normal NOT DETECTED [facility] Comment on above: Performed By: #### R SPLUS #### [facility] [address] [place] [address] Geraldo Kandy Metapneumovirus Not detected Normal NOT DETECTED [facility] Comment on above: Performed By: #### R SPLUS #### [facility] [address] [place] [address] Geraldo Kandy Mycoplas. Pneumoniae Not detected Normal NOT DETECTED [facility] Comment on above: Performed By: #### R SPLUS #### [facility] [address] [place] [address] Geraldo Kandy Parainfluenza 1 Not detected Normal NOT DETECTED [facility] Comment on above: Performed By: #### R SPLUS #### [facility] [address] [place] [address] Geraldo Kandy Parainfluenza 2 Not detected Normal NOT DETECTED [facility] Comment on above: Performed By: #### R SPLUS #### [facility] [address] [place] [address] Geraldo Kandy Parainfluenza 3 Not detected Normal NOT DETECTED [facility] Comment on above: Performed By: #### R SPLUS #### [facility] [address] [place] [address] Geraldo Kandy Parainfluenza 4 Not detected Normal NOT DETECTED [facility] Comment on above: Performed By: #### R SPLUS #### [facility] [address] [place] [address] Geraldo Kandy Rhino/Enterovirus Not detected Normal NOT DETECTED [facility] Comment on above: Performed By: #### R SPLUS #### [facility] [address] [place] [address] Geraldo Kandy RP2 Header 1 RESPIRATORY PANEL: VIRUSES Normal [facility] Comment on above: Performed By: #### R SPLUS #### [facility] [address] [place] [address] Geraldo Kandy RP2 Header 2 RESPIRATORY PANEL: BACTERIA Normal [facility] Comment on above: Performed By: #### R SPLUS #### [facility] [address] [place] [address] Geraldo Kandy RP2 Header 4 EUA SEE BELOW Normal [facility] Comment on above: Result Comment: This test is not yet approved or cleared by the [place] FDA. When there are no FDA-approved or cleared tests available, and other criteria are met, FDA can make tests available under an emergency access mechanism called an Emergency Use Authorization (EUA). The EUA for this test is supported by the [place] of Health and Human Service?s (HHS?s) declaration [...] used). Performed By: #### R SPLUS #### [facility] [address] [place] [address] Geraldo Kandy RSV Not detected Normal NOT DETECTED [facility] Comment on above: Performed By: #### R SPLUS #### [facility] [address] [place] [address] Geraldo Kandy SARS-CoV-2 (COVID-19) RNA VIVIENNE+probe Ql (Unsp spec) Not detected Normal NOT DETECTED [facility] Comment on above: Performed By: #### R SPLUS #### [facility] [address] [place] [address] Geraldo Kandy URINE MICROSCOPIC ONLYon BACTERIA MODERATE Normal NONE SEEN [facility] Comment on above: Performed By: #### MELODY CORDOVA #### [facility] [address] [place] [address] Geraldo Kandy Bacteria identified Cx Nom (U) INDICATED Normal [facility] Comment on above: Performed By: #### MELODY CORDOVA #### [facility] [address] [place] [address] Geraldo Kandy CAST NONE SEEN Normal NONE SEEN [facility] Comment on above: Performed By: #### MELODY CORDOVA #### [facility] [address] [place] [address] Geraldo Kandy Crystals LM Nom (Urine sed) NONE SEEN Normal NONE SEEN [facility] Comment on above: Performed By: #### MELODY CORDOVA #### [facility] [address] [place] [address] Geraldo Kandy Epithelial cells LM Ql (Urine sed) RARE Normal [facility] Comment on above: Performed By: #### MELODY CORDOVA #### [facility] [address] [place] [address] Geraldo Kandy MUCOUS NONE SEEN Normal NONE SEEN [facility] Comment on above: Performed By: #### MELODY CORDOVA #### [facility] [address] [place] [address] Geraldo Kandy RBC 0-2 Normal 0-2 [facility] Comment on above: Performed By: #### MELODY CORDOVA #### [facility] [address] [place] [address] Geraldo Kandy WBC 5-10 Normal NONE SEEN [facility] Comment on above: Performed By: #### E MELODY SHAH #### [facility] [address] [address] Geraldo Gaitan XR CHEST 1 Von 01-02-2020 [...] by: REMY NESS Date: 2020-01-02 18:52 Normal [facility] Encounters Encounter Date Encounter Type Care Provider Facility Start: 07-25-2023 End: 07-26-2023 ambulatory Kei Espana MD Facility:[facility] Start: 07-11-2023 End: 07-12-2023 ambulatory Kei Espana MD Facility:[facility] Start: 04-27-2023 Telephone encounter Marisa sierra DO Work Phone: [facility] 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 Start: 04-21-2023 Refill Alexander marcum [employer] Work Phone: [facility] Comment on above: Essential hypertensi on (CMS/[facility]) Start: 04-18-2023 End: 04-18-2023 ambulatory ALEXANDER APARICIO [...] Start: 07-26-2022 End: 07-26-2022 ambulatory SHARI MCKEON Facility:[facility] Start: 06-29-2022 End: 06-30-2022 ambulatory SHARI MCKEON Facility:[facility] Start: 10-24-2020 End: 10-25-[address] SHARI MCKEON Facility:[facility] Start: 09-30-2020 End: 10-01-[address] SHARI MCKEON Facility:[facility] Start: 02-01-2020 End: 02-01-[address] CARLOS EDUARDO MENENDEZ Facility:[facility] Start: 01-30-2020 Encounter for preprocedural laboratory examination DR CARLOS EDUARDO MENENDEZ [facility] Start: 01-26-2020 End: 01-27-[address] SHARI MCKEON Facility:[facility] Start: 01-26-2020 End: 01-27-2020 Encounter for preprocedural laboratory examination DR SHARI MCKEON Facility:[facility] Start: 01-02-2020 End: 01-02-[address] BÁRBARA BLUE Facility:[facility] Start: 05-25-2018 End: 05-26-2018 Patient encounter procedure DEFAULT PHYSICIAN Facility:[facility] Plan of Treatment Date Care Activity Detail Author Start: 08-02-2023 End: 08-02-2023 Patient encounter procedure 08/02/2023 9:00 AM EDT Office Visit [facility] [address] [facility] [address] [place] [address] Marisa Ramos DO [address] [facility] [address] [place] [address] [facility] Start: 05-06-2023 Medicare Annual Wellness (AWV) Medicare Annual Wellness (AWV) [facility] Healthcare Immunizations Immunization Date Immunization Notes Care Provider Fa cility 12-23-2022 Influenza, High-dose Seasonal, Quadrivalent, Preservative Free Alexander Aparicio [employer] WORK[employer] Work Phone: [facility] 12-23-2022 SARS-COV-2 (COVID-19 ) vaccine, mRNA, spike protein, LNP, PF, 50 mcg/0.5 mL Alexander Hackenburg [employer] WORK[employer] Work Phone: [facility] 12-01-2021 Influenza, Seasonal, Quadrivalent, Adjuvanted Alexander Hackenburg [employer] WORKER Work Phone: [facility] 12-01-2021 Seasonal, trivalent, recombinant, injectable influenza vaccine, preservative free Alexander Hackenburg [employer] WORKER Work Phone: [facility] 12-16-2020 Influenza, High-dose Seasonal, Quadrivalent, Preservative Free Alexander Hackenburg [employer] WORKER Work Phone: [facility] 02-14-2020 zoster vaccine recombinant Alexander Hackenburg [employer] Work Phone: [facility] 12-07-2019 influenza, seasonal, injectable Alexander Hackenburg [employer] Work Phone: [facility] 11-13-2019 influenza, injectabl e, quadrivalent, preservative free Alexander Hackenburg [employer] WORKER Work Phone: [facility] 11-13-2019 zoster vaccine recombinant Alexander Hackenburg [employer] WORKER Work Phone: [facility] 11-12-2019 zoster vaccine recombinant Alexander Hackenburg [employer] WORKER Work Phone: [facility] 11-29-2018 Seasonal trivalent influenza vaccine, adjuvanted, preservative free Alexander Hackenburg [employer] WORK[employer] Work Phone: [facility] 11-30-2017 influenza, high dose seasonal, preservative-free Alexander Hackenburg [employer] WORKER Work Phone: [facility] 11-24-2017 Seasonal trivalent influenza vaccine, adjuvanted, preservative free Alexander Hackenburg [employer] WORK[employer] Work Phone: [facility] 11-18-2016 influenza, high dose seasonal, preservative-free Alexander Hackenburg [employer] WORKER Work Phone: [facility] Work Phone: 11-18-2016 pneumococcal conjuga te vaccine, 13 valent Alexander Hackenburg [employer] Work Phone: [facility] 11-18-2016 Seasonal trivalent influenza vaccine, adjuvanted, preservative free Alexander Hackenburg [employer] Work Phone: [facility] 11-18-2016 tetanus toxoid, redu greg diphtheria toxoid, and acellular pertussis vaccine, adsorbed Alexander Hackenburg [employer] WORK[employer] Work Phone: [facility] 11-12-2016 pneumococcal polysaccharide vaccine, 23 valent Alexander Hackenburg [employer] WORK[employer] Work Phone: [facility] 12-11-2015 influenza, high dose seasonal, preservative-free Alexander Hackenburg [employer] WORKER Work Phone: [facility] 12-30-2014 influenza virus vaccine, whole virus Alexander Hackenburg [employer] WORKER Work Phone: [facility] 12-30-2014 influenza, injectabl e, quadrivalent, preservative free Alexander Hackenburg [employer] WORK[employer] Work Phone: [facility] 05-10-2014 pneumococcal conjuga te vaccine, 13 valent Alexander Hackenburg [employer] WORK[employer] Work Phone: [facility] 12-13-2013 influenza virus vaccine, whole virus Alexander Hackenburg [employer] Work Phone: [facility] 01-12-2013 pneumococcal Conjuga te, unspecified formulation Alexander Hackenburg [employer] Work Phone: [facility] 01-12-2013 seasonal influenza, intradermal, preservative free Alexander Hackenburg [employer] Work Phone: [facility] 12-27-2012 pneumococcal polysaccharide vaccine, 23 valent Alexander Hackenburg [employer] Work Phone: [facility] Payers Date Payer Category Payer Unknown 2017 Medicare [employer]AGE [employer] ADVANTAGE [id number] 2017-Present [address] [place] [address] [id number] 1959 Unknown [id number] 1944 Unknown [id number] 2.16.840.1.837284.3.579.2.647 1944 Unknown [id number] 2.16.840.1.836107.3.579.2.593 1944 Unknown [id number] 2.16.840.1.150251.3.579.2.593 1944 Unknown [id number] 2.16.840.1.698283.3.579.2.593 1944 Unknown [id number] 2.16.840.1.818721.3.579.2.593 1944 Unknown [id number] 2.16.840.1.203839.3.579.2.593 1944 Unknown [id number] 2.16.840.1.621640.3.579.2.718 1944 Unknown [id number] 2.16.840.1.166445.3.579.2.718 1944 Unknown [id number] 2.16.840.1.617891.3.579.2.125 9 1944 Unknown [id number] 2.16.840.1.857191.3.579.2.125 9 1944 Unknown [id number] 2.16.840.1.843126.3.579.2.125 9 1944 Unknown [id number] 2.16.840.1.519786.3.579.2.125 9 1944 Unknown [id number] 2.16.840.1.592567.3.579.2.125 9 1944 Unknown [id number] 2.16.840.1.489379.3.579.2.125 9 1944 Unknown [id number] 2.16.840.1.749883.3.579.2.125 9 1944 Unknown [id number] 2.16.840.1.587888.3.579.2.125 9 1944 Unknown [id number] 2.16.840.1.721714.3.579.2.125 9 1944 Unknown [id number] 2.16.840.1.722327.3.579.2.125 9 1944 Unknown [id number] 2.16.840.1.941942.3.579.2.196 1944 Unknown [id number] 2.16.840.1.644934.3.579.2.196 Social History Date Type Detail Facility Start: 09-17-2022 Tobacco smoking stat [facility] Never smoked tobacco [facility] Start: 09-17-2022 [...] [place]. Allergies: NKDA . 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 Allergies: NKDA . Her call back [phone] [facility] Telephone encounter Note 04-21-2023 Telephone [...] original. Refills sent. documented in this encounter [facility] History and physical note 07-27-2022 Note Date & Type Note Facility 07-27-2022 Note [id number] [facility] Clinical Note 07-26-2022 Note Date & Type Note Facility 07-26-2022 Note [facility] SURGERY Clinical Discharge Summary PERSON INFORMATION Name RADHA CUADRA Age 77 Years 1945 Sex FEMALE Language Hungarian PCP SHARI MCKEON Marital Status Med Service Ambulatory Surgery Acct# Arrival 07/26/2022 05:52:10 Visit Reason SURGERY - LEFT REVERSE TOTAL SHOULDER - ARTHREX Acuity LOS 053 02:57 Address: [address] [place] [address] [place] [id number] Comment: PROVIDER INFORMATION VITALS INFORMATION Vital Sign [...] REASON INCOMPLETE INFORMATION (more content not included)... [facility] Clinical Note 02-01-2020 Note Date & [...] position. She was sedated by the nurse temporary receptionist. Bite block was placed in her mouth. [...] patient tolerated the procedure without any difficulties. [facility] SIGNED AND APPROVED BY: DR CARLOS EDUARDO MENENDEZ . 02/07/2020 09:15:00 [facility] Evaluation note Note Date & Type Note Facility Evaluation note Diagnosis Essential hypertension (CMS/HCC) Unspecified essential hypertension documented in this encounter [facility] Evaluation note Note Date & Type [...] and content) DATE CREATED AUTHOR 05/27/2018 [facility] DATE CREATED AUTHOR AUTHOR'S ORGANIZ ATION 11/06/2020 [facility] pital DATE CREATED AUTHOR AUTHOR'S ORGANIZ ATION 05/12/2022 [facility] Specialist DATE CREATED AUTHOR AUTHOR'S ORGANIZ ATION 07/28/2022 [facility] DATE CREATED AUTHOR AUTHOR'S ORGANIZ ATION 04/19/2023 [facility] EPIC DATE CREATED AUTHOR AUTHOR'S ORGANIZ ATION 07/30/2023 [facility] Reason for Visit (unrecogniz ed section and content) Reason Comments Med Refill Reason 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 Care Teams (unrecognized sec tion and content) Buffing Wheel Former Automatic Relationship Specialty Start Date End Date Alexander Aparicio NP [address] [place] [facility] [place] [address] PCP - Cristobal FIGUEROA 03/21/21 Shari Mckeon MD [address] [place] [facility] [address] PCP - General Family Medicine 07/26/22 Buffing Wheel Former Automatic Relationship Specialty Start Date End Date Alexander Aparicio NP [address] [facility] [place] [address] PCP - Cristobal FIGUEROA 03/21/21 Shari Mckeon MD [address] [facility] [place] [address] PCP - General Family Medicine 07/26/22 FOR [...] BE BASED ON THE PRIMARY CLINICAL RECORDS. [employer] [facility]. provides no warranty or guarantee of the accuracy or completeness of information in this document.
[2023-08-22 08:51] VITALS: BP 136/61; PULSE 79; O2SAT 95
[2023-08-22] MEDS: LIDOCAINE HCL 2% PF 100 MG/5 ML VIAL INJ (08:52)
[2023-08-22] MEDS: BUPIVACAINE HCL 0.25% PF 25 MG/10 ML VIAL INJ (08:52)
[2023-08-22 08:53] VITALS: BP 130/58; PULSE 84
[2023-08-22 08:54] VITALS: O2SAT 92
--- NOTE | 2023-08-22 08:56 | P.ON_ITS ---
Date of procedure: 08/22/23 Pre-op diagnosis: Lumbar spondylosis without myelopathy Post-op diagnosis: same as pre-op Procedure: Procedure: Bilateral L4-5, L5-S1 medial branch block Medications: Bupivacaine 0.25% 6cc The patient was seen and examined in the preoperative holding area.? An informed consent was obtained and placed on the chart.? The patient was brought to the medical procedure unit and placed in the prone position.? A timeout was completed verifying correct patient, procedure site, positioning, plan, and special equipment.? Using aseptic technique, the needle was placed at left L4. Under direct fluoroscopic visualization a Quincke-tipped spinal needle was ad vanced to the junction of the superior articulating process with the transverse process at the designated medial branch segment.? Preceded by negative aspiration, the above-mentioned injectate was placed in 1 mL aliquots.? The procedure was repeated at left L5, S1.? The needle was removed and insertion site was covered. The same procedure, at the same levels, was completed on the right side. The patient was taken to the postprocedural recovery area and monitored for an appropriate length of time before found suitable for discharge in the company of a responsible adult. Anesthesia: Local Surgeon: Kei Espana Pathology: none sent Condition: stable Disposition: no change
== END 2023-08-22 08:56 | disposition home or self-care (01) ==
PROVIDERS: PCP Family Medicine; Visit Provider Anesthesiology
DX: M47.816 Spondylosis without myelopathy or radiculopathy, lumbar region (principal)
CPT/HCPCS: 64493; 64494

== ENCOUNTER 2023-08-24 07:42 | Outpatient (OUT) | payer MEDICARE, SELFPAY ==
--- OUTSIDE RECORDS SUMMARY | 2023-08-24 07:44 | XMS_ITS ---
Patient Summarization (C-CDA 2.1 CCD) Created on: August 24, 2023 Radha Cuadra : 1945 Sex: Female Author Organization Sample organization Care Team Providers Care Deck Engineer Name Role Phone PHYSICIAN, DEFAULT Admitting Unavailable [...] RAMILA, DR CARLOS EDUARDO Worthy Admitting Unavailable MORAMIA RODNEY Consulting Unavailable MIKE, DR MENDOZA Consulting Unavailable MIKE, DR MENDOZA Attending Unavailable MIKE, DR MENDOZA Admitting Unavailable MIKE, DR MENDOZA Primary Care Unavailable MIKE, DR MENDOZA Primary Care Unavailable WISORIN, DR CARLOS EDUARDO Worthy Attending Unavailable WIECEK, [...] RAMOS Attending Unavailable MARISA RAMOS Referring Unavailable RICHARD, MARISA Plascencia Attending Unavailable RICHARD, MARISA Plascencia Attending Unavailable RICHARD, MARISA Plascencia Referring Unavailable MARISA RAMOS Attending Unavailable Alessandra UTILITY SALES AND SERVICE MANAGER, Alexander Plascencia Unavailable Mike JAIMES, Shari Primary Care Provider Jovi JAIMES, Kei Brian Attending Unavailable Jovi JAIMES, Kei Brian Attending Unavailable Allergies Allergy Classification Reported Allergen(s) Allergy Type Date of Onset Reaction(s) Facility (2 sources) Alendronate; Translations: [Fosamax] Drug Allergy [facility] Repository (2 sources) Alendronate Drug Allergy 09-10-2020 Unknown [facility] En[facility]ters Encounter Date Encounter Type Care Provider Facility Start: 07-25-2023 End: 07-26-2023 ambulatory Kei Espana MD Facility:[facility] Start: 07-11-2023 End: 07-12-2023 ambulatory Kei Espana MD Facility:[facility] Start: 04-27-2023 Telephone encounter Marisa sierra DO Work Phone: [facility] 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 Start: 04-21-2023 Refill Alexander marcum UTILITY SALES AND SERVICE MANAGER Work Phone: [facility] Comment on above: Essential hypertensi on ([facility] Start: 04-18-2023 End: 04-18-2023 ambulatory ALEXANDER APARICIO [...] Start: 07-26-2022 End: 07-26-2022 ambulatory SHARI MCKEON Facility:[facility] Start: 06-29-2022 End: 06-30-2022 ambulatory SHARI MCKEON Facility:[facility] Start: 10-24-2020 End: 10-25-[address] SHARI MCKEON Facility:[facility] Start: 09-30-2020 End: 10-01-[address] SHARI MCKEON Facility:[facility] Start: 02-01-2020 End: 02-01-[address] CARLOS EDUARDO MENENDEZ Facility:[facility] Start: 01-30-2020 Encounter for preprocedural laboratory examination DR CARLOS EDUARDO MENENDEZ [facility] Start: 01-26-2020 End: 01-27-[address] SHARI MCKEON Facility:[facility] Start: 01-26-2020 End: 01-27-2020 Encounter for preprocedural laboratory examination DR SHARI MCKEON Facility:[facility] Start: 01-02-2020 End: 01-02-[address] BÁRBARA BLUE Facility:[facility] Start: 05-25-2018 End: 05-26-2018 Patient encounter procedure DEFAULT PHYSICIAN Facility:[facility] Immunizations Immunization Date Immunization Notes Care Provider [facility] 12-23-2022 Influenza, High-dose Seasonal, Quadrivalent, Preservative Free Alexander Hackenburg UTILITY SALES AND SERVICE MANAGER Work Phone: [facility] 12-23-2022 SARS-COV-2 (COVID-19 ) vaccine, mRNA, spike protein, LNP, PF, 50 mcg/0.5 mL Alexander Hackenburg UTILITY SALES AND SERVICE MANAGER Work Phone: [facility] 12-01-2021 Influenza, Seasonal, Quadrivalent, Adjuvanted Alexander Hackenburg UTILITY SALES AND SERVICE MANAGER Work Phone: [facility] 12-01-2021 Seasonal, trivalent, recombinant, injectable influenza vaccine, preservative free Alexander Hackenburg UTILITY SALES AND SERVICE MANAGER Work Phone: [facility] 12-16-2020 Influenza, High-dose Seasonal, Quadrivalent, Preservative Free Alexander Hackenburg UTILITY SALES AND SERVICE MANAGER Work Phone: [facility] 02-14-2020 zoster vaccine recombinant Alexander Hackenburg UTILITY SALES AND SERVICE MANAGER Work Phone: [facility] 12-07-2019 influenza, seasonal, injectable Alexander Hackenburg UTILITY SALES AND SERVICE MANAGER Work Phone: [facility] 11-13-2019 influenza, injectabl e, quadrivalent, preservative free Alexander Hackenburg UTILITY SALES AND SERVICE MANAGER Work Phone: [facility] 11-13-2019 zoster vaccine recombinant Alexander Hackenburg UTILITY SALES AND SERVICE MANAGER Work Phone: [facility] 11-12-2019 zoster vaccine recombinant Alexander Hackenburg UTILITY SALES AND SERVICE MANAGER Work Phone: [facility] 11-29-2018 Seasonal trivalent influenza vaccine, adjuvanted, preservative free Alexander Hackenburg UTILITY SALES AND SERVICE MANAGER Work Phone: [facility] 11-30-2017 influenza, high dose seasonal, preservative-free Alexander Hackenburg UTILITY SALES AND SERVICE MANAGER Work Phone: [facility] 11-24-2017 Seasonal trivalent influenza vaccine, adjuvanted, preservative free Alexander Hackenburg UTILITY SALES AND SERVICE MANAGER Work Phone: [facility] 11-18-2016 influenza, high dose seasonal, preservative-free Alexander Hackenburg UTILITY SALES AND SERVICE MANAGER Work Phone: [facility] Work Phone: 11-18-2016 pneumococcal conjuga te vaccine, 13 valent Alexander Hackenburg UTILITY SALES AND SERVICE MANAGER Work Phone: [facility] 11-18-2016 Seasonal trivalent influenza vaccine, adjuvanted, preservative free Alexander Hackenburg UTILITY SALES AND SERVICE MANAGER Work Phone: [facility] 11-18-2016 tetanus toxoid, redu greg diphtheria toxoid, and acellular pertussis vaccine, adsorbed Alexander Hackenburg UTILITY SALES AND SERVICE MANAGER Work Phone: [facility] 11-12-2016 pneumococcal polysaccharide vaccine, 23 valent Alexander Hackenburg UTILITY SALES AND SERVICE MANAGER Work Phone: [facility] 12-11-2015 influenza, high dose seasonal, preservative-free Alexander Hackenburg UTILITY SALES AND SERVICE MANAGER Work Phone: [facility] 12-30-2014 influenza virus vaccine, whole virus Alexander Patrickenchiqui UTILITY SALES AND SERVICE MANAGER Work Phone: [facility] 12-30-2014 influenza, injectabl e, quadrivalent, preservative free Alexander Patrickenchiqui UTILITY SALES AND SERVICE MANAGER Work Phone: [facility] 05-10-2014 pneumococcal conjuga te vaccine, 13 valent Alexander Alessandra UTILITY SALES AND SERVICE MANAGER Work Phone: [facility] 12-13-2013 influenza virus vaccine, whole virus Alexander analia UTILITY SALES AND SERVICE MANAGER Work Phone: [facility] 01-12-2013 pneumococcal Conjuga te, unspecified formulation Alexander analia UTILITY SALES AND SERVICE MANAGER Work Phone: [facility] 01-12-2013 seasonal influenza, intradermal, preservative free Alexander Alessandra UTILITY SALES AND SERVICE MANAGER Work Phone: [facility] 12-27-2012 pneumococcal polysaccharide vaccine, 23 valent Alexander analia UTILITY SALES AND SERVICE MANAGER Work Phone: [facility] Medications Current Medications Medication Drug Class(es) Dates [...] (2 sources) Serotonin Reuptake Inhibitor Start: 04-08-19 24 take 1 tablet by mouth at bedtime traZODone (Desyrel) 50 MG tablet Indications: Primary insomnia Take 1 tablet (50 mg) by mouth at bedtime 90 tablet 1 04/08/2023 Active turmeric extract 500 mg oral capsule (2 sources) Turmeric 500 MG tablet Orally 0 Active Payers Date Payer Category Payer Unknown 2017 Medicare AN[employer]M MEDICARE ADVANTAGE [facility] MEDICARE ADVANTAGE [id number] 2017-Present [address] [place] [address] [id number] 1959 Unknown [id number] 1945 Unknown [id number] 2.16.840.1.699625.3.579.2.647 1945 Unknown [id number] 2.16.840.1.842965.3.579.2.593 1945 Unknown [id number] 2.16.840.1.904852.3.579.2.593 1945 Unknown [id number] 2.16.840.1.231635.3.579.2.593 1945 Unknown [id number] 2.16.840.1.977226.3.579.2.593 1945 Unknown [id number] 2.16.840.1.881920.3.579.2.593 1945 Unknown [id number] 2.16.840.1.394749.3.579.2.718 1945 Unknown [id number] 2.16.840.1.290088.3.579.2.718 1945 Unknown [id number] 2.16.840.1.216489.3.579.2.125 9 1945 Unknown [id number] 2.16.840.1.717763.3.579.2.125 9 1945 Unknown [id number] 2.16.840.1.014087.3.579.2.125 9 1945 Unknown [id number] 2.16.840.1.372855.3.579.2.125 9 1945 Unknown [id number] 2.16.840.1.714355.3.579.2.125 9 1945 Unknown [id number] 2.16.840.1.744811.3.579.2.125 9 1945 Unknown [id number] 2.16.840.1.485987.3.579.2.125 9 1945 Unknown [id number] 2.16.840.1.983501.3.579.2.125 9 1945 Unknown [id number] 2.16.840.1.059218.3.579.2.125 9 1945 Unknown [id number] 2.16.840.1.732705.3.579.2.125 9 1945 Unknown [id number] 2.16.840.1.549624.3.579.2.196 1945 Unknown [id number] 2.16.840.1.852372.3.579.2.196 Plan of Treatment Date Care Activity Detail Author Start: 08-02-2023 End: 08-02-2023 Patient encounter procedure 08/02/2023 9:00 AM EDT Office Visit [facility] [address] [facility] [address] [place] [address] Marisa Ramos, [address] [facility] [address] [place] [address] [facility] Start: 05-06-2023 Medicare Annual Wellness (AWV) Medicare Annual Wellness (AWV) [facility] Problems Active Problems Problem Classification Problem Date [...] 01-30-2020 Episodic Other aftercare (1 source) Other usp (current) drug therapy; Translations: [OTH RESIDENTIAL CURRENT DRUG THERAPY] Onset: 02-14-2020 Episodic Other aftercare (1 source) 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 Name: RADHA CUADRA Antolin/Sex: 1945 FEMALE Med Rec #: [id number] Physician: Marisa Ramos DO Financial #: [id number] Pt. Type: D Room/Bed: / Admit/Disch: 07/26/22 [...] Role Performed Surgeon - Primary Anesthesiologist of Supervisor Post Wave Record Time In 07/26/22 07:39:00 07/26/22 07:39:00 [...] Paulina Vásquez CST, CST, Kelly CST McMurray CST/CSFAZOE DECK ENGINE OPERATOR Role Performed Scrub Personnel Scrub Personnel Consumer Electronics Merchandiser Time In 07/26/22 07:39:00 07/26/22 07:39:00 07/26/22 07:39:00 Time Out 07/26/22 09:49:00 07/26/22 09:49:00 07/26/22 09:49:00 Procedure Arthroplasty Shoulder Arthroplasty Shoulder Arthroplasty Shoulder Total Reverse(Left) Total Reverse(Left) Total Reverse(Left) Last Modified By: Jania Coello RN, RN, Kathleen A Derry RN, Kathleen A 07/26/22 09:49:54 07/26/22 09:49:54 07/26/22 09:49:54 General Comments: Nicholas Malik - Arthrex rep Surgical Procedures MAGR Pre-Care [...] to chemical sources (more content not included)... [facility] Outside Recordson 07-27-2022 Outside Records [id number][facility] Orderson 07-27-2022 Provider Orders [id number]#1.[facility] Telemetry Stripson Telemetry Strips [id number]#1.[facility] Anesthesia Noteon 07-26-2022 Anesthesia Note Patient: [...] obstructive pulmonary disease (COPD) / SNOMED CT 61853823 / Confirmed Heart murmur / SNOMED CT 525335993 / Confirmed Hyperlipidemia / SNOMED CT 78543650 / Confirmed HTN (hypertension) / SNOMED CT 5613385136 / Confirmed Histories Family History: COPD Mother Father Procedure history: Arthroplasty of left knee (6470037771). Arthroplasty of right knee (7841985010). Carpal tunnel release (623996207). Comments: 06/29/2022 13:15 Dorota De Leon RN bilat Colonoscopy (789642022). EGD - Esophagogastroduodenoscopy (2756581602). Disorder of rotator cuff (8564789724). Comments: 06/29/2022 13:14 Dorota De Leon RN [...] Oriented. Review / Management Laboratory Results Plan [place] [employer] Anesthesiologists#(ASA) physical status classification: Class [...] 07/26/2022 08:23 EDT] Remy Da Silva MD [facility] Anesthesia Note Patient: RADHA CUADRA Age: [...] 07/26/2022 11:51 EDT] Remy Da Silva MD Normal [facility] Inpatient Patient Summaryon 07-26-2022 [place] [address] Patient Discharge Instructions Name: RADHA CUADRA : 1945 Patient Address: [address] [place] [address] [address] [place] [address] Primary Care Provider: Name: SHARI MCKEON After you are discharged if you find you have any questions, please, call [phone] ext [phone] to speak to a nurse. Discharge Diagnosis: [...] alcohol and/or drug addiction problems; contact the [facility] 04/10 Crisis Hotline -Text 3JKLE zt [phone]. If you received any narcotics, sedation, or [...] business decisions or sign any legal documents [facility] would like to thank you for allowing us to assist you with your healthcare needs. The following includes patient education materials and information regarding your injury/illness. RADHA CUADRA has been given the following list of follow-up instructions, prescriptions, and patient education materials: Follow-up Instructions With: Address: When: Marisa Ramos [address] [place] [address], [address] [place] [id number] [facility] (1) 08/03/2022 11:00 AM Medications During the [...] fingers frequently (more content not included)... Normal [facility] Intra-Op Record Summary Primary Physician: Finalized Date/Time: 07/26/22 07:42:32 Pt. Name: RADHA CUADRA/Sex: 1945 FEMALE Med Rec #: [id number] Physician: Marisa Ramos DO Financial #: [id number] Pt. Type: D Room/Bed: / Admit/Disch: 07/26/22 [...] Warga, Laura RN Role Performed Anesthesiologist of Supervisor Post Wave Supervisor Post Wave Record Time In 07/26/22 07:13:00 07/26/22 07:13:00 07/26/22 07:13:00 Time Out 07/26/22 07:38:00 07/26/22 07:38:00 07/26/22 07:38:00 Procedure Interscalene Block(Left) Interscalene Block(Left) Interscalene Block(Left) Last Modified By: Kimberley Le RN, Margaret RN Klaehn, Margaret RN 07/26/22 07:39:31 07/26/22 07:39:31 07/26/22 07:39:31 Entry 4 Case Attendee Amy Bates RN Role Performed Supervisor Post Wave Time In 07/26/22 07:13:00 Time Out 07/26/22 [...] Post-op Destinat (more content not included)... [facility] PACU Record MAGR PACU Record [facility] Primary Physician: Marisa Ramos DO Finalized Date/Time: 07/26/22 10:38:28 Pt. Name: CLAUDIAANEESHRADHA/Sex: 1945 FEMALE Med Rec #: [id number] Physician: Marisa Ramos DO Financial #: [id number] Pt. Type: D Room/Bed: / Admit/Disch: 07/26/22 05:52:10 - Institution: PACU Case Times MAGR Entry 1 In PACU I 07/26/22 09:51:00 Discharge from PACU 07/26/22 10:35:00 I Last Modified By: Warner Bolton RN 07/26/22 10:38:23 Finalized By: Warner Bolton RN Document Signatures Signed By: Warner Bolton RN 07/26/22 10:38 [facility] MAGR Postoperative Recordon 07-26-2022 MAGR Postoperative Record MAGR Phase II Record [facility] Primary Physician: Marisa Ramos DO Finalized Date/Time: 07/26/22 12:01:17 Pt. Name: RADHA CUADRA/Sex: 1945 FEMALE Med Rec #: [id number] Physician: Marisa Ramos DO Financial #: [id number] Pt. Type: D Room/Bed: / Admit/Disch: 07/26/22 [...] Signed By: Annamarie Samuels RN 07/26/22 12:01 [facility] 07-26-2022 MAGR Preoperative Record MAGR Pre-Op Record Summary Primary Physician: Marisa Ramos DO Finalized Date/Time: 07/26/22 07:44:03 Pt. Name: RADHA CUADRA /Sex: 1945 FEMALE Med Rec #: [id number] Physician: Marisa Ramos DO Financial #: [id number] Pt. Type: D Room/Bed: / Admit/Disch: 07/26/22 [...] Signed By: Kimberley Le RN 07/26/22 07:44 [facility] Operative Report - Surgeon/P pablo 07-26-2022 [...] Estimated blood loss: 50 Complications: None Findings: Kupa-qx-qpgt in the glenohumeral joint Procedure summary: Patient [...] on: 07/26/2022 09:35 EDT] Marisa Ramos DO [facility] Patient Handouton 07-26-[address] [...] or concerns, please call the office at [phone] 7. Follow up as scheduled [facility] XR Shoulder 1 View Lefton XR [...] MD 07/27/22 4:01 pm Technologist: JORDON RUVALCABA [facility] Comment on above: Order Comment: defau lt status post shoulder replacement Progress Note - Nurseon 07-12 Progress Note - Nurse Pre-op call made to pt. Pt states understanding of arrival time of 0600 on 07/26/22 and NPO after MN. [Electronically Signed on: 07/23/2022 09:27 EDT] Shantel Gonsalez RN [Verified on: 07/23/2022 09:27 EDT] Shantel Gonsalez RN [facility] Coding Summaryon 07-02-2022 Coding Summary HTMLBase 64 VftwaauwLVw3rSt+PGhlYWQ+PE1F LTOgC14ytQJacE1KW4oRPN9CMYKL VUCRMH4HKM7ilFR5SWknD5YpnbRc NmegsYRfAF88BDu6EOA6uVznTDmu xM5xlRNaI6m5EwVdHW13kI27EXsc KHDwYsT9JbLpftanwDJb N6dvUuHydEJhJtb+PHRhYmxlIHdp OKXzLDwwDRCaYlUkhHmvAY4kXr6h ZGVyLWNvbGxhcHNlOiBj x3knZXMaWJzlHO6bpBkuK6NywPC5 EPSgh7c3Kz45hCV+KBBiZIZ7aTod BWueg497SmThk2imRSH0 wZAvSLakNAK5Q17cy1H1GHWkSMHf ZHH0fHW7eA6imQtyjoeyR2MorJFp PcC9OLL0bFRnjT0hbZyu nxxzvM6fIhl+L06AUI8JQKQMMD9B Ryl4D8TzBgitnNO+XY49RWMbQP15 hOVzhRMbk6lmqEn6DyUz PMFfNJE8zApnVKihb3JlKGEpD80d oWQmi5X7WPDeeQmcsGBgCqEkqLV2 kK3fJYcwoxmbi2gmqrqn Vilek0lise71aF26Y53dTOhuKDBg HNH7HSUbTPReeTtelp9ybN2eMw6+ HIkee4fae1nyxFc6NfIf WRFjksVjwQjlIPR2p8XbIp53Q9Um zErdx6IzEiy7do35aRRzn6X9mDG9 GToiCGGvsS6aWHyrFnM5 KOYsDsNxhT18uWLxPGyoWa2vkNem gJneYI2qLVNcdykcEJVpzY6jJHCh zZQibJnuRR4aNIBgpfpm k924NcVpTUV0KUBjgKLeO9LvgS5d HwGeZJQxOOMaC8SumRUfATnvN842 XCfrSgN4ZECvxeHbN1Fb RTGxfTzzGsR0w5S5Vb0Cm1Jfzmsf GYT4FGpqCNN0ZvFhGhEjHdL2P1Mc Voe4KNFzuTpgOW6mK1Ns MMUyxhdghozhsLN5SYItLEKtdT09 lNUdGLhvNv7tp2Z2f792AYJvRAWs sQ90Zv4qpLmqFYLspYOW iW5osuxjv9maohtxDkZkDAVeBYl9 SRm6RJTlvItyQdPdSYX3VgH4BKV3 nNBtlX1ikGxztfrpiM5c Oyc+W52uhW5oOCO4GOM6wbjeGRUs yvBbPY17LI68M0UkPjxesEFofGO+ VOMedmUqpXlbBF4qAjSq i8snn7TiBIkzT2MoZLKgTHocNpf3 KOScGIP0uTH7cW3hENKxYOwil6J0 vHE6M3JyzoNvoj8vb7ow QEMcIZokA02xuIKsf6E9OITdcYF0 DGQhkShwWdBzoU91Gid+PGNvbGdy o4ZdCesxt4gpx6gipTc5 TvVxINQcdcIcqAwjEZA4q0MuGd32 Y50aOOndIUVbVZLmCYYjRZMtsBto wd4jrH6lHa7+PGNvbCB3 pWU9eO5uTSNxWoY5TAtjX620PfNy oQGsIxekn5wdi6xtsLv9MtIqCIAp goLcwJzpLKX2m8VqSa57 Z69qKDjtNGQpZDOoLOTuOWCpdXqz cj7yoS8bWp6+YQ1hg3iaui94qK53 dHI+EVGhSWX5lLbfFIcw LEFhwQ1oRClgXhY1VTYeLmWrcP56 mHQsKCvcLw5akGwbwBkqOS1fTTWh ivthc054KuXew6jwNPVr iVTxCBbcKIG0I12ro0Z7DUMvKHGt EFT3gGX8bK1uoRcvgvuunCEqvIeh btBveLuvHBzhFIezR846 IHRvcDsnPlBhdGllbnQgTmFtZTo8 K4PyZnc4CALnuWakIN2zrHVuSYgk Dr6vrMinrEgmTK7tWDEz iemcx726AtNkx3hbWRFzySEmMIuq PRS2J93kr0V3XQPgAILfPAV4eKQ7 eD0ukEchoiipkVYkxIxn euZfwHacOQkhGGafU837VJAlrTsk HlQyadAgPDUlcJB5KJ34ZY33iLIa t8G0fZD5X9YtAWUdxjwd vkxwzEC6HMQmFQNrzE50In0dtZgq Yx3oPKVgJAJ0KBYjjAYoW0MmmM9l GiCnTUHmUNAfO7VmkFMa ZEqcQ122ESizDnU2IDLskeUvZ5De FSLqbBobTmU0y5W8Nx6VO0X1DP24 UN98xDJsa9C4pAJ1B8Ce GQUqknlpezycfJY6BRYaHKRtmI23 Eq7hqIyxUs0gIBZxFAO3QKOjrXBj N4LnhM2mCoIuESHmTGDt K0QoyYCmHTxxG094FLuvSeE4IEDs nlUfO4DbWEBurOlrVvF3m2S9Jm2B LMp8QT29EZ25pTRum0I6 qPI0A3IkGXCnbtiiqzgqbQB4ODVa NNZmmV30Ap5poNokDk3kPHIiRIN5 RJJgkWUdR3KizA8qInRu PIWgQEKyO6YnfBAnDChuQ078TOdo ZeJ3RXQjsvMkW5KaRCWwmNsdOeP6 c4F8Tk3LTTDmGV07HUV2 lEV1HD67UZ69X3ZfQkntuZFlnHO+ PHRhYmxlIHdpZHRoPScxMDAlJyBz hPkrIJ4xHk5oETAxSHRv wPmzaBBlYsFyb1mhBCMoRVqoBK6b lBxwF6OttUV5UAKio7t1Gq02L29a S6KphWZ+NOOrxIC7uJT5 dY1lVoRtGtD6YIyrQ345QmIngKQy Ufdmo0rkz0dkcXz0YnG3ZUKvieGn rZpqLOG7n1QdKf38B93s OYleFAXaVLTnBJTgQGHuxAqkwf4a dB1tZw9+PLPzvCR0hCS3mV4wVdCm WmR6YJbzQ198NvPuwXAf Hfwgs7deb5omhFr2MgBsVKVfysKr iQgxKBI3z4MgLj55Z0EykRbpd7Lq Hkl7bm18wDWxd6D0wEW9 L0VvITPccfkpdGYlpGrcUW1vTUZq ssknZFQsvK8kGGGgD0o5VuEjIaD9 EHzmW6CmmyP3GWNazGWr TEyvYPO4G75vf8F5TPNzQCLlAVQ7 qZM7hZ5rcWkbmobqiIClzFqlhsOm uMzzBWauBRibB480AZSf jEtaMAPdwI4zZSYxmFJpfShvBR5d LSZxbklvZoaKXDCoBZaATXaaIX8S CTt6Z6FvNfb1BNOnmTdh XP8cbLNuAUsiMd1bbTysmMkqTF1h CNPvovjtAHGsfF9oSCHzpMRtnOfu AH6iTKPaeqtxb096MyWf FQM3LTZotTByH6YdwA2uVlZsTJOk MRUoU9TqxEFiMGhdB085MZslDwN3 EXMxppLfZ0BzHCQzsJup UvP5i9L4Qy2jGw7jIy5jHPR8TO73 DX85sDLut0U5dKZ2J2TuXMIjsqnv liojaVF9IXYuZQMmeW94 gCZnPIfhRm1jc3T2g718WIIzMVMa hV24Tr8ebQgqTFUsuMRAcZ6vqedg p7hynrxgUeJbPUQtZXv3 PNd3CHLfuHwsHxByBTH6MkF0REV3 tSQgvL8otDrturozjM0iRmf+Nzgg VRFmbkL8H2GlTdj3EBCe fPvyFI0mqYAqYCjrKa2toJfhzEzl HU7mBEMpgedzFIMczJ4hNNJvpPGr xEswKT0yIYFegexjp747 ObIbATV2RXSboZJpB3GrqY3cNcOr PBDhRFTbE7WrgRJxEPijJ462HOgz CfN5AWSoosKwM3HvQVGb kZbqFwD3o2P9Hf8DIE1XRIH8Y5Vb Fta1RUThaQnaDP8koGWbHCpxAg1d kUocsFbzJM8qPCNrisgb XNMxhI5qBNBwvTJdgYomVT7wIQWk iqwvf137ClFcFWW7YCRaxMScJ9Kd aC5lIhPoNYFzRMPdH3Fh jDQnPZdoE803WLgvBkJ8TZLpvxWr A5NtNWNolQdnHxW3f9F1Uh2ABAxo dGQ+LQ88nn24W7XcGqfp Hxd4BWOcYBK6rLL3fS5vMKAhLKen d6H2ePD3B4GpchKdym0vb2wlYPXl IPmiU57sjYToo5B1YBLt kXP2LFRedQbjKpDhaX79Ehh+PGNv lDmsq1ExPcejp5tje6joqVu4XzLi MSPdpqAnuRynXBV5t4Df Ng75D70oEEezAHYwBNCqJWRiYBWs fVsfeh5unS3lRq8+QPPowJP5bEA0 iJ2vUmXwZbW7ORocQ945 EgFimCGxLquis8mfz8eutXr2OtRj KPTsgbBszRdoSHW8n3RnUo65Z1Dr yOznv2FwBkn2ye42oUXx t4M1mYS7A6DpACFqpqnlnOUhrWsv TR5cIWTuulnwWWIvvE8sLOEgJ9p3 AjYiZwG0FWbqS5KpsfT6 TJYfzCZtJURvmRMYxR8qccnjy9yj srrfNdSwBXBkPVu9FIb7RKYdtDxs VcEzRSM8LgI9POR9tZYg dV4wiUziqosiuO7hNbf+BZf8h0nx sTGqXI7jmEG3ZE70HA43oLWpt8J1 hKY9T6JiYMIainzrvkod vAM4RBFmLDHzxQ57Nz4gbBsdDj8s MIFrXVD6VLJgjVYcE3XupC7dKbIm GCWjQOHpQ2WdoBLhJIpc S670XIyeCoR7LCVlyeUzW1CkNRJr gDibUdN3t3Z8Xc7SKT77QH17EN84 wXBcs1Y5pZP7Y2PoWDVs lriiugodgAL7WLCySNAklB53Bc1d dPtiXs0uVDTaBFN2DAIevHUaO7Fd uL4xBeTwAXZlQPWxD6Hl tLUyWPjfN296VRaiKeW3TVUteaQe V4NlEUKnpVedBjJ9x5O9Yo0VSr05 RZ52FL64hVYmn4H3cZE5 D8TcXPUsxnacnggfdRD7UTSnSPKm vZ54Fm2ugWwaIu9dBXQvWGQ4FHFo sWNhL7KziK2fQdDbJUOn FIUnC1ZgmQTpALofD977HEprKyG6 JNVmbnSyK8ZtHGUzsKtmAdJ0h5Z3 Rf5UYBojgeq1M5DuMaps dHI+QD17VKZhQD95jSNilPTox4cl fNl0GaFyRXGzOEN6rBauICtci9Pq ZLPaG37vqDFsb4K6MNIz bGx (more content not included)... Normal [facility] C MRSA Screenon 06-30-2022 C MRSA Screen Negative Normal [facility] Comment on above: Performed By: #### 1 [id number] ####[facility] (DEFAULT)[address] [place] [address] Progress Note - Nurseon 06-12 Progress Note - Nurse Dr. Castro reviewed PAT notes for upcoming surgery 07/26/2022. No new orders at this time [Electronically Signed on: 06/30/2022 11:45 EDT] Annamarie Samuels RN [Verified on: 06/30/2022 11:45 EDT] Annamarie Samuels RN [facility] Provider Orderson 06-30-2022 Provider Orders [id number] [facility] .Auto Diff 1on 06-29-2022 Auto [place] % 10 % Normal 1-12 [facility] Comment on above: Performed By: #### 7 [id number] ####[facility] (DEFAULT)[address] [place] [address] [id number] Baso Abs# 0.0 x10 Normal 0.0-0.2 [facility] Comment on above: Performed By: #### 7 [id number] ####[facility] (DEFAULT)[address] [place] [address] 54423 Basophils/100 WBC (Bld) 0.7 % Normal 0.2-2.0 [facility] Comment on above: Performed By: #### 7 [id number] ####[facility] (DEFAULT)[address] [place] [address] 48707 Eos Abs# 0.6 x10 High 0.0-0.4 [facility] Comment on above: Performed By: #### 7 [id number] ####[facility] (DEFAULT)[address] [place] [address] 31403 Eosinophils/100 WBC (Bld) 8.5 % High 0.9-4.0 [facility] Comment on above: Performed By: #### 7 [id number] ####[facility] (DEFAULT)[address] [place] [address] 85069 Lymph Abs# 1.6 x10 Normal 1.3-2.9 [facility] Comment on above: Performed By: #### 7 [id number], [id number], [id number] ####[facility] (DEFAULT)[address] [place] [address] 58674 Lymphocytes/100 WBC (Bld) 24 % Normal 14-48 [facility] Comment on above: Performed By: #### 7 [id number], [id number], [id number] ####[facility] (DEFAULT)[address] [place] [address] 61837 [place] Abs# 0.7 x10 Normal 0.0-0.8 [facility] Comment on above: Performed By: #### 7 [id number], [id number], [id number] ####[facility] (DEFAULT)[address] [place] [address] 62875 Neut Abs# 3.8 x10 Normal 1.5-9.2 [facility] Comment on above: Performed By: #### 7 [id number], [id number], [id number] ####[facility] (DEFAULT)[address] [place] [address] 59299 Neutrophils/100 WBC (Bld) 57 % Normal 44-88 [facility] Comment on above: Performed By: #### 7 255446, [id number], [id number] ####[facility] (DEFAULT)[address] [place] [address] 13755 BMP Standardon 06-29-2022 Anion gap [Moles/Vol] 8.9 mmol/L Normal 5.0-19.0 [facility] Comment on above: Performed By: #### 7 960397, [id number], [id number] ####[facility] (DEFAULT)[address] [place] [address] 46955 Calcium [Mass/Vol] 9.3 mg/dL Normal 8.9-10.3 [facility] Comment on above: Performed By: #### 7 692816, [id number], [id number] ####[facility] (DEFAULT)[address] [place] [address] 82640 Chloride [Moles/Vol] 102 mmol/L Normal 101-111 [place] Comment on above: Performed By: #### 7 [id number], [id number], [id number] ####[facility] (DEFAULT)[address] [place] [address] 48290 CO2 [Moles/Vol] 28 mmol/L Normal 21-32 [facility] Comment on above: Performed By: #### 7 917304, [id number], [id number] ####[facility] (DEFAULT)[address] [place] [address] Creatinine [Mass/Vol] 1.53 mg/dL High 0.60-1.30 [facility] Comment on above: Performed By: #### 7 898904, [id number], [id number] ####[facility] (DEFAULT)[address] [place] [address] eGFR AA 40 mL/min/1.73m2 Invalid Interpretation Code [facility] Comment on above: Performed By: #### 7 [id number], [id number], [id number] ####[facility] (DEFAULT)[address] [place] [address] 21478 eGFR Non AA 33 mL/min/1.73m2 Invalid Interpretation Code [facility] Comment on above: Performed By: #### 7 [id number], [id number], [id number] ####[facility] (DEFAULT)[address] [place] [address] 07040 Glucose [Mass/Vol] 107.0 mg/dL Normal 74.0-118.0 [facility] Comment on above: Performed By: #### 7 220245, [id number], [id number] ####[facility] (DEFAULT)[address] [place] [address] 17070 Osmolality 279 mOsm/L Invalid Interpretation Code [facility] Comment on above: Performed By: #### 7 080906, [id number], [id number] ####[facility] (DEFAULT)[address] [place] [address] 96162 Potassium [Moles/Vol] 3.9 mmol/L Normal 3.6-5.1 [facility] Comment on above: Performed By: #### 7 200154, [id number], [id number] ####[facility] (DEFAULT)[address] [place] [address] 08041 Sodium [Moles/Vol] 135.0 mmol/L Low 136.0-144 . 0 [facility] Comment on above: Performed By: #### 7 289082, [id number], [id number] ####[facility] (DEFAULT)[address] [place] [address] 49984 Urea nitrogen [Mass/Vol] 36 mg/dL High 8-26 [facility] Comment on above: Performed By: #### 7 223580, [id number], [id number] ####[facility] (DEFAULT)[address] [place] [address] 71896 Urea nitrogen/Creatinine [Mass ratio] 23.5 mg/mg High 4.6-16.2 [facility] Comment on above: Performed By: #### 7 794009, 89435257, [id number] ####[facility] (DEFAULT)[address] [place] [address] 21686 CBC w/ Auto Diffon Erythrocyte distribution width (RBC) [Ratio] 12.8 % Normal 11.5-15.0 [facility] Comment on above: Performed By: #### 7 536253, [id number], [id number] ####[facility] (DEFAULT)[address] [place] [address] 75989 Hematocrit (Bld) [Volume fraction] 36.4 % Normal 33.7-40.4 [facility] Comment on above: Performed By: #### 7 846962, 35887619, [id number] ####[facility] (DEFAULT)[address] [place] [address] 67801 Hemoglobin (Bld) [Mass/Vol] 12.2 g/dL Normal 11.3-15.9 [facility] Comment on above: Performed By: #### 7 977085, [id number], [id number] ####[facility] (DEFAULT)[address] [place] [address] 43365 Man Diff? Auto Invalid Interpretation Code [facility] Comment on above: Performed By: #### 7 129879, [id number], [id number] ####[facility] (DEFAULT)[address] [place] [address] 28459 MCH (RBC) [Entitic mass] 32 pg Normal 24-34 [facility] Comment on above: Performed By: #### 7 395212, [id number], [id number] ####[facility] (DEFAULT)[address] [place] [address] 01414 MCHC (RBC) [Mass/Vol] 33 g/dL Normal 26-37 [facility] Comment on above: Performed By: #### 7 086571, 68561738, [id number] ####[facility] (DEFAULT)[address] [place] [address] 59535 MCV (RBC) [Entitic vol] 97 fL Normal 81-100 [facility] Comment on above: Performed By: #### 7 585844, 76124475, [id number] ####[facility] (DEFAULT)[address] [place] [address] 25488 Platelet 336 x10 Normal 138-427 [facility] Comment on above: Performed By: #### 7 544764, 58126538, [id number] ####[facility] (DEFAULT)[address] [place] [address] 24823 Platelet mean volume (Bld) [Entitic vol] 7.2 fL Normal 6.3-10.2 [facility] Comment on above: Performed By: #### 7 298519, [id number], [id number] ####[facility] (DEFAULT)[address] [place] [address] 75475 RBC 3.77 x10 Normal 3.70-5.30 [facility] Comment on above: Performed By: #### 7 552844, 30504846, [id number] ####[facility] (DEFAULT)[address] [place] [address] 88046 WBC 6.7 x10 Normal 3.5-10.5 [facility] Comment on above: Performed By: #### 7 917245, 89018433, [id number] ####[facility] (DEFAULT)[address] [place] [address] UA w Culture if Ind Standard on 06-29-2022 Breakpoint UA Normal [facility] Comment on above: Performed By: #### 1 [id number] #### [facility] (DEFAULT) [address] [place] [address] Color (U) Yellow [facility] Comment on above: Performed By: #### 1 [id number] #### [facility] (DEFAULT) [address] [place] [address] Culture? Not Indicated Invalid Interpretation Code [facility] Comment on above: Result Comment: Resu lt created by rule GL_MAGR_ADD_UA_CULT1 Performed By: #### 1 [id number] #### [facility] (DEFAULT) [address] [place] [address] Glucose (U) [Mass/Vol] Negative [facility] Comment on above: Performed By: #### 1 [id number] #### [facility] (DEFAULT) [address] [place] [address] Ketones Ql (U) Negative [facility] Comment on above: Performed By: #### 1 [id number] #### [facility] (DEFAULT) [address] [place] [address] Micro? Not Indicated Invalid Interpretation Code [facility] Comment on above: Result Comment: Resu lt created by rule GL_MAGR_ADD_UA_MICRO Performed By: #### 1 [id number] #### [facility] (DEFAULT) [address] [place] [address] UA Bilirubin Negative [facility] Comment on above: Performed By: #### 1 [id number] #### [facility] (DEFAULT) [address] [place] [address] UA Blood Negative Normal [facility] Comment on above: Performed By: #### 1 [id number] #### [facility] (DEFAULT) [address] [place] [address] 93058 UA Clarity CLEAR Normal CLEAR [facility] Comment on above: Performed By: #### 1 [id number] #### [facility] (DEFAULT) [address] [place] [address] 61004 UA Leuk Est Negative Normal NEGATIVE [facility] Comment on above: Performed By: #### 1 [id number] #### [facility] (DEFAULT) [address] [place] [address] 88468 UA Nitrite Negative Normal NEGATIVE [facility] Comment on above: Performed By: #### 1 [id number] #### [facility] (DEFAULT) [address] [place] [address] 09318 UA pH 6.5 Normal 07-19 [facility] Comment on above: Performed By: #### 1 [id number] #### [facility] (DEFAULT) [address] [place] [address] 80610 UA Protein Negative Normal NEGATIVE [facility] Comment on above: Performed By: #### 1 [id number] #### [facility] (DEFAULT) [address] [place] [address] 54694 UA Spec Grav 1.010 Normal 1.001-1.[address] [place] [address] Comment on above: Performed By: #### 1 [id number] #### [facility] (DEFAULT) [address] [place] [address] 09254 UA Urobilinogen 0.2 mg/dL Normal 0.2-1.0 [facility] Comment on above: Performed By: #### 1 [id number] #### [facility] (DEFAULT) [address] [place] [address] 83036 Urine Source Clean Catch Normal [facility] Comment on above: Performed By: #### 1 [id number] #### [facility] (DEFAULT) [address] [place] [address] 60840 MRI Shoulder w/o Lefton 04-15 MRI Shoulder [...] by Adarsh Adams on 05/11/2022 [address] [facility] SCREENING MAMMOGRAM W/ARABELLA, BILATERAL*on 11-20-2021 SCREENING MAMMOGRAM [...] VERY IMPORTANT TO YOUR HEALTH. THE CURRENT [employer] OF [employer] AND [employer] COMPREHENSIVE [employer] NETWORK GUIDELINES RECOMMENDS ANNUAL MAMMOGRAPHY BEGINNING AT AGE 39 THIS FACILITY USES A REMINDER SYSTEM TO ENSURE ALL PATIENTS RECEIVE REMINDER NOTIFICATIONS AT THE APPROPRIATE TIME BASED ON THE RECOMMENDATIONS OF THIS EXAM. Report reported and signed by Alejandro Forte on 11/20/2021 [address] [facility] Comprehensive Metabolic Pane george 06-10-2021 Albumin [Mass/Vol] 4.2 g/dL Normal 3.6-5.1 [facility] Comment on above: Performed By: #### C JARVIS DONIS #### [facility] [address] [id number] Albumin/Globulin [Mass ratio] 1.7 {ratio} Normal 1.0-2.[address] [facility] Comment on above: Performed By: #### C MP, LIPD #### [facility] [address] [place] [id number] ALP [Catalytic activity/Vol] 82 U/L Normal 35-[address] [facility] Comment on above: Performed By: #### C JEWELS LIPD #### [facility] [address] [place] [id number] ALT [Catalytic activity/Vol] 15 U/L Normal 6-[address] [facility] Comment on above: Result Comment: 02/11 Female reference range changed. Performed By: #### C JEWELS LIPD #### [facility] [address] [id number] Anion gap [Moles/Vol] 15 mmol/L Normal 12-20 [facility] Comment on above: Result Comment: Effe ctive 03/19/2019 reference range changed. Performed By: #### C JEWELS LIPD #### [facility] [address] [id number] AST [Catalytic activity/Vol] 21 U/L Normal 9-[address] [facility] Comment on above: Performed By: #### C JEWELS LIPD #### [facility] [address] [id number] BUN/CREA 28 Ratio High 6-[address] [facility] Comment on above: Performed By: #### C JEWELS LIPD #### [facility] [address] [id number] Calcium [Mass/Vol] 9.3 mg/dL Normal 8.6-10.2 [facility] Comment on above: Performed By: #### C JEWELS LIPD #### [facility] [address] [id number] Chloride [Moles/Vol] 106 mmol/L Normal 98-107 [facility] Comment on above: Performed By: #### C MP LIPD #### [facility] [address] [id number] CO2 [Moles/Vol] 24 mmol/L Normal 20-[address] [facility] Comment on above: Performed By: #### C JEWELS LIPD #### [facility] [address] [id number] Creatinine [Mass/Vol] 1.1 mg/dL Normal 0.6-1.4 [facility] Comment on above: Performed By: #### JARVIS Anaya MP #### [facility] [address] [place], [place] [id number] eGFRAA 58 mL/min/1.73m2 Low >60 [facility] Comment on above: Performed By: #### C JEWELS LIPTeresa #### [facility] [address] [place], [place] [id number] eGFRNAA 48 mL/min/1.73m2 Low >60 [facility] Comment on above: Performed By: #### C JARVIS DONIS #### [facility] [address] [place], [place] [id number] Globulin (S) [Mass/Vol] 2.5 g/dL Normal 1.9-3.7 [facility] Comment on above: Performed By: #### C JEWELS LIPTeresa #### [facility] [address] [place], [place] [id number] Glucose [Mass/Vol] 94 mg/dL Normal 65-99 [facility] Comment on above: Result Comment: For FASTING Glucose --- ADA reference ranges: Normal 65-99 mg/dl Prediabetes 100-125 Diabetes >/= 126 Performed By: #### Jaclyn DONIS LIPTeresa #### [facility] [address] [place], [place] [id number] Potassium [Moles/Vol] 4.4 mmol/L Normal 3.5-5.5 [facility] Comment on above: Performed By: #### C JEWELS LIPTeresa #### [facility] [address] [place], [place] [id number] Protein [Mass/Vol] 6.7 g/dL Normal 6.1-8.1 [facility] Comment on above: Performed By: #### C JEWELS LIPTeresa #### [facility] [address] [place], [place] [id number] Sodium [Moles/Vol] 141 mmol/L Normal 135-146 [facility] Comment on above: Performed By: #### C JEWELS LIPD #### [facility] [address] [place], [place] [id number] TBIL <0.3 Normal [facility] Comment on above: Performed By: #### C JEWELS LIPD #### [facility] [address] [place], [place] [id number] Urea nitrogen [Mass/Vol] 32 mg/dL High 7-25 [facility] Comment on above: Performed By: #### C JEWELS, LIPD #### [facility] [address] [place], [place] [id number] Lipid Panelon 06-10-2021 Cholesterol [Mass/Vol] 237 mg/dL High 125-200 [facility] Comment on above: Result Comment: Low risk < 200mg/dL Borderline risk 201-239 mg/dl High risk > or equal to 240 Performed By: #### C JEWELS, LIPD #### [facility] [address] [place], [place] [id number] Cholesterol in HDL [Mass/Vol] 100 mg/dL Normal >40 [facility] Comment on above: Result Comment: High Cardiovascular Risk HDL <40 mg/dL Low Cardiovascular Risk HDL > or equal to 60 mg/dl Performed By: #### C JEWELS, LIPD #### [facility] [address] [place], [place] [id number] Cholesterol in LDL [Mass/Vol] 124 mg/dL Normal [facility] Comment on above: Result Comment: LDL ATP III CLASSIFICATION LDL less than 100 mg/dl Optimal LDL 100-129 mg/dl Near or above optimal LDL 130-159 Borderline high LDL 160-189 High LDL greater than 189 mg/dl Very High Performed By: #### C JEWELS, LIPD #### [facility] [address] [place], [place] [id number] Cholesterol in VLDL [Mass/Vol] 13 mg/dL Normal [facility] Comment on above: Performed By: #### C JEWELS LIPD #### [facility] [address] [place], [place] [id number] Cholesterol.total/Ch olesterol in HDL [Mass ratio] 2 {ratio} Normal [facility] Comment on above: Performed By: #### C JEWELS, LIPD #### [facility] [address] [place], [place] [id number] Triglyceride [Mass/Vol] 67 mg/dL Normal 30-150 [facility] Comment on above: Result Comment: TRIG ATPIII CLASSIFICATIONS TRIG less than 150 mg/dl Normal TRIG 150-199 mg/dl Borderline High TRIG 200-500 mg/dl High TRIG greather than 500 mg/dl Very High Performed By: #### C MP, LIPD #### [facility] [address] [place], [place] [id number] ECHOCARDIO M/2D COMPLETEon 0 10-24-2020 ECHOCARDIO M/2D COMPLETE Patient: RADHA CUADRA Exam Date: 10/24/2020 : 1945 Gender:F Ordering : DR SHARI MCKEON M.D. Admission #: [id number] Family : Order #: [id number] CLICK HERE TO VIEW EXAM ECHOCARDIOGRAM REPORT [...] Area(A4C): 13.90 cm2 Left Atrium Systolic Volume(A2C): 77386 mm3 Left Atrium Systolic Volume(A4C): 89236 mm3 Mitral Valve MV E to A Ratio: 1.10 Mitral Valve A-Wave Peak Velocity: 68.60 cm/s Mitral Valve E-Wave Peak Velocity: 74.50 cm/s Deceleration Time: 259 ms Right Ventricle Aorta AO Root Diam: 2.60 cm Aortic Valve Peak Velocity (Antegrade Flow): 161.00 cm/s, 230.00 cm/s AoV Area (Peak Daniel): 1.93 cm2 AoV Area (VTI): 1.90 cm2 Deceleration Rapides: 1880 mm/s2 Pressure Half-Time: 528 ms Peak [...] Burrows M.D. on 10/24/2020 at 19:17 Normal [facility] HEMOGLOBINon 09-30-2020 Hemoglobin (Bld) [Mass/Vol] 12.3 g/dL Normal 12.0-16.0 [facility] Comment on above: Performed By: #### H GB #### [facility] [address] [id number] Geraldo Gaitan H PYLORI TISSUEon 02-01-2020 H PYL TISSUE, UREASE Negative Normal NEGATIVE [facility] Comment on above: Performed By: #### H GB #### [facility] [address] [id number] Geraldo Gaitan COVID-19 PCRon 01-27-2020 SARS-CoV-2 (COVID-19) RNA VIVIENNE+probe Ql (Unsp spec) Not detected Normal Not Detected [facility] Comment on above: Result Comment: This nucleic acid amplification test was developed and its performance characteristics determined by [facility]. Nucleic acid amplification tests include PCR and [...] Performed By: #### C VDSTAT, CVDPCR #### [facility] [address] [place], [place] [address] Geraldo Gaitan PRIORITY COVID PROCESSINGon 01-27-2020 Comment Comment Normal [facility] Comment on above: Result Comment: Rece ived Performed By: #### C VDSTAT, CVDPCR #### [facility] [address] [place], [place] [address] Geraldo Gaitan CULTURE BLOODon 01-08-2020 Microscopic examination [...] F Trimethoprim/Sulfamethoxazol e <=20 S F Normal [facility] Comment on above: Performed By: #### H GB #### [facility] [address] [place] [address] Geraldo Gaitan BLOOD CULTURE ID PANELon A. baumannii Not detected Normal [facility] Comment on above: Performed By: #### B MIRYAM #### [facility] [address] [place] [address] Geraldo Gaitan BCID CONTROLS PASSED [facility] Comment on above: Performed By: #### B MIRYAM #### [facility] [address] [place] [address] Geraldo Gaitan BCIDBTHD BLOOD CULTURE BOTTLE INFORMATION Normal [facility] Comment on above: Performed By: #### B MIRYAM #### [facility] [address] [place] [address] Geraldo Gaitan BCIDHD1 ANTIMICROBIAL RESIST ANCE GENES [facility] Comment on above: Performed By: #### B MIRYAM #### [facility] [address] [place] [address] Geraldo Gaitan BCIDHD2 SEE BELOW [facility] Comment on above: Result Comment: KPC- carbapenem resistance gene, mecA- methecillin resistance gene, van A/B- vancomycin resistance gene Note: Antimicrobial resitance can occur via multiple mechanisms. A Not Detected result for the [employer] antomicrobial resistance gene assays does not indicate antimicrobial susceptibility. Subculturing is required for specis identificationand susceptibility testing of isolates. Performed By: #### B MIRYAM #### [facility] [address] [place] [address] Geraldo Kandy BCIDHD3 Positive Normal [facility] Comment on above: Performed By: #### B MIRYAM #### [facility] [address] [place] [address] Geraldo Kandy BCIDHD3 Negative Normal [facility] Comment on above: Performed By: #### B MIRYAM #### [facility] [address] [place] [address] Geraldo Kandy BCIDHD5 YEAST Normal [facility] Comment on above: Performed By: #### B MIRYAM #### [facility] [address] [place] [address] Geraldo Kandy BCIDHD6 SEE BELOW [facility] Comment on above: Result Comment: Note : All genus and species BCID [employer] results will be verified post subculturing via Maldi-Tof MS testing methodology. Performed By: #### B MIRYAM #### [facility] [address] [place] [address] Geraldo Kandy Bottle Set: Set 2 Normal [facility] Comment on above: Performed By: #### B MIRYAM #### [facility] [address] [place] [address] Geraldo Kandy Bottle: Aerobic Normal [facility] Comment on above: Performed By: #### B MIRYAM #### [facility] [address] [place] [address] Geraldo Kandy Naomi albicans Not detected Normal [facility] Comment on above: Performed By: #### B MIRYAM #### [facility] [address] [place] [address] Geraldo Kandy Naomi glabrata Not detected Normal [facility] Comment on above: Performed By: #### B MIRYAM #### [facility] [address] [place] [address] Geraldo Kandy Naomi Krusei Not detected Normal [facility] Comment on above: Performed By: #### B MIRYAM #### [facility] [address] [place] [address] Geraldo Kandy Naomi Parapsilosis Not detected Normal [facility] Comment on above: Performed By: #### B MIRYAM #### [facility] [address] [address] Geraldo Kandy Naomi Tropicalis Not detected Normal [facility] Comment on above: Performed By: #### B MIRYAM #### [facility] [address] [address] Geraldo Kandy E. Cloacae complex Not detected Normal [facility] Comment on above: Performed By: #### B MIRYAM #### [facility] [address] [address] Geraldo Kandy Enterobacteriaceae Detected Invalid Interpretation Code [facility] Comment on above: Performed By: #### B MIRYAM #### [facility] [address] [place] [address] Geraldo Kandy Enterococcus Not detected Normal [facility] Comment on above: Performed By: #### B MIRYAM #### [facility] [address] [place] [address] Geraldo Kandy Escheria coli Detected Normal [facility] Comment on above: Performed By: #### B MIRYAM #### [facility] [address] [place] [address] Geraldo Kandy K. oxytoca Not detected Normal [facility] Comment on above: Performed By: #### B MIRYAM #### [facility] [address] [place] [address] Geraldo Kandy K. pneumoniae Not detected Normal [facility] Comment on above: Performed By: #### B MIRYAM #### [facility] [address] [place] [address] Geraldo Kandy KPC Resistant Gene Not detected Normal [facility] Comment on above: Performed By: #### B MIRYAM #### [facility] [address] [place] [address] Geraldo Kandy List. monocytogenes Not detected Normal [facility] Comment on above: Performed By: #### B MIRYAM #### [facility] [address] [place] [address] Geraldo Kandy mecA Resistant Gene Not detected Normal [facility] Comment on above: Performed By: #### B MIRYAM #### [facility] [address] [place] [address] Geraldo Gaitan Proteus Not detected Normal [facility] Comment on above: Performed By: #### B MIRYAM #### [facility] [address] [place] [address] Geraldo Gaitan Pseud. aeruginosa Not detected Normal [facility] Comment on above: Performed By: #### B MIRYAM #### [facility] [address] [place] [address] Geraldo Gaitan Seratia marcescens Not detected Normal [facility] Comment on above: Performed By: #### B MIRYAM #### [facility] [address] [place] [address] Geraldobhumi Gaitan Site: R AC Normal [facility] Comment on above: Performed By: #### B MIRYAM #### [facility] [address] [place] [address] Geraldo Gaitan Staph. aureus Not detected Normal [facility] Comment on above: Performed By: #### B MIRYAM #### [facility] [address] [place] [address] Geraldo Gaitan Staphylococcus Not detected Normal [facility] Comment on above: Performed By: #### B MIRYAM #### [facility] [address] [place] [address] Geraldo Gaitan Strep. agalactiae Not detected Normal [facility] Comment on above: Performed By: #### B MIRYAM #### [facility] [address] [place] [address] Geraldo Gaitan Strep. pneumoniae Not detected Normal [facility] Comment on above: Performed By: #### B MIRYAM #### [facility] [address] [place] [address] Geraldo Gaitan Strep. pyogenes Not detected Normal [facility] Comment on above: Performed By: #### B MIRYAM #### [facility] [address] [place] [address] Geraldobhumi Gaitan Streptococcus Not detected Normal [facility] Comment on above: Performed By: #### B MIRYAM #### [facility] [address] [place] [address] Geraldo Gaitan Aicha/B Resist. Gene Not detected Normal [facility] Comment on above: Performed By: #### B MIRYAM #### [facility] [address], [place] [address] Geraldo Kandy CBC AUTO DIFFon 01-02-2020 BASO # 0.0 103/ul Normal 0.0-0.1 [facility] Comment on above: Performed By: #### C BC #### [facility] [address] [place] [id number] Geraldo Kandy Basophils/100 WBC (Bld) 0.3 % Normal 0.2-2.0 [facility] Comment on above: Performed By: #### C BC #### [facility] [address] [id number] Geraldo Kandy EO # 0.0 103/ul Normal 0.0-0.7 [facility] Comment on above: Performed By: #### C BC #### [facility] [address] [id number] Geraldo Kandy Eosinophils/100 WBC (Bld) 0.3 % Critically low 0.9-7.0 [facility] Comment on above: Performed By: #### C BC #### [facility] [address] [place], [place] [id number] Geraldo Kandy Erythrocyte distribution width (RBC) [Ratio] 12.6 % Normal 11.0-15.0 [facility] Comment on above: Performed By: #### C BC #### [facility] [address] [place], [place] [id number] Geraldo Kandy Hematocrit (Bld) [Volume fraction] 42.7 % Normal 36.0-48.0 [facility] Comment on above: Performed By: #### C BC #### [facility] [address] [id number] Geraldo Kandy Hemoglobin (Bld) [Mass/Vol] 13.6 g/dL Normal 12.0-16.0 [facility] Comment on above: Performed By: #### C BC #### [facility] [address] [id number] Geraldo Kandy IG # 0.04 10e3/ul Critically high 0.00-0.03 [facility] Comment on above: Performed By: #### C BC #### [facility] [address] [id number] Geraldo Kandy IG % 0.3 % Normal 0.0-0.5 [facility] Comment on above: Performed By: #### C BC #### [facility] [address] [place] [address] Geraldo Kandy LYMPH # 0.5 103/ul Critically low 1.2-3.8 [facility] Comment on above: Performed By: #### C BC #### [facility] [address] [place] [address] Geraldo Gaitan Lymphocytes/100 WBC (Bld) 4.4 % Critically low 20.5-60.0 [facility] Comment on above: Performed By: #### C BC #### [facility] [address] [place] [address] Geraldo Gaitan MANUAL DIFF REQ NO Normal [facility] Comment on above: Performed By: #### C BC #### [facility] [address] [place] [address] Geraldobhumi Gaitan MCH (RBC) [Entitic mass] 30.6 pg Normal 26.7-34.0 [facility] Comment on above: Performed By: #### C BC #### [facility] [address] [place] [address] Geraldo Gaitan MCHC (RBC) [Mass/Vol] 31.9 g/dL Normal 29.9-35.2 [facility] Comment on above: Performed By: #### C BC #### [facility] [address] [place] [address] Geraldobhumi Gaitan MCV (RBC) [Entitic vol] 96.0 fL Normal 81.0-99.0 [facility] Comment on above: Performed By: #### C BC #### [facility] [address] [place] [address] Geraldo Kandy MONO # 0.8 103/ul Normal 0.3-0.8 [facility] Comment on above: Performed By: #### C BC #### [facility] [address], [place] [address] Geraldo Gaitan Monocytes/100 WBC (Bld) 6.5 % Normal 1.7-12.0 [facility] Comment on above: Performed By: #### C BC #### [facility] [address] [id number] Geraldo Gaitan NEUT # 10.1 103/ul Critically high 1.4-6.5 [facility] Comment on above: Performed By: #### C BC #### [facility] [address] [id number] Geraldo Gaitan Neutrophils/100 WBC (Bld) 88.2 % Critically high 43.0-75.0 [facility] Comment on above: Performed By: #### C BC #### [facility] [address] [place], [place] [id number] Geraldo Gaitan Platelet mean volume (Bld) [Entitic vol] 9.8 fL Normal 9.5-13.5 [facility] Comment on above: Performed By: #### C BC #### [facility] [address] [place], [place] [phone] Geraldo Charlesen PLT 254 103/ul Normal 150-450 [facility] Comment on above: Performed By: #### C BC #### [facility] [address] [place], [place] [phone] Geraldo Charlesen RBC 4.45 106/ul Normal 4.20-5.40 [facility] Comment on above: Performed By: #### C BC #### [facility] [address] [place], [place] [phone] Geraldo Gaitan CT HEAD WO CONon 01-02-2020 [...] REMY NESS Date: 2020-01-02 19:00 Normal [facility] CULTURE BLOODon 01-02-2020 Microscopic examination of blood, culture Culture Observations: No growth at 5 days Normal [facility] Comment on above: Performed By: #### H GB #### [facility] [address] [place], [place] [id number] Geraldo Kandy CULTURE URINEon 01-02-2020 CULTURE URINE Culture Observations : Light growth of mixed genital eliezer.No potential pathogens seen. Normal [facility] Comment on above: Performed By: #### H GB #### [facility] [address] [place] [address] Geraldo Kandy ER URINE PROFILEon 0 Bilirubin Ql (U) Negative Normal NEGATIVE [facility] Comment on above: Performed By: #### Luis SHAH UMJUSTYNARO #### [facility] [address] [place] [address] Geraldo Kandy Clarity (U) SL CLOUDY Normal [facility] Comment on above: Performed By: #### Luis SHAH UMJUSTYNARO #### [facility] [address] [place], [place] [address] Geraldo Kandy Color (U) LT. YELLOW Normal YELLOW [facility] Comment on above: Performed By: #### Luis SHAH UMICRO #### [facility] [address] [place], [place] [phone] Geraldo Kandy ERUAHD A micrscopic examina tion will be performed if indicated. Normal [facility] Comment on above: Performed By: #### KANDICE CORDOVARO #### [facility] [address] [place] [address] Geraldo Kandy Glucose Ql (U) Negative Normal NEGATIVE [facility] Comment on above: Performed By: #### KANDICE CORDOVARO #### [facility] [address] [place] [address] Geraldo Kandy Hemoglobin Ql (U) SMALL Normal NEGATIVE [facility] Comment on above: Performed By: #### MELODY CORDOVA #### [facility] [address] [place] [address] Geraldo Kandy Ketones Ql (U) Negative Normal NEGATIVE [facility] Comment on above: Performed By: #### MELODY CORDOVA #### [facility] [address] [place] [address] Geraldo Kandy LEUKOCYTES TRACE Normal NEGATIVE [facility] Comment on above: Performed By: #### MELODY CORDOVA #### [facility] [address] [place] [address] Geraldo Kandy Nitrite Ql (U) Negative Normal NEGATIVE [facility] Comment on above: Performed By: #### MELODY CORDOVA #### [facility] [address] [place] [address] Geraldo Kandy pH (U) 7.0 [pH] Normal 5-9 [facility] Comment on above: Performed By: #### MELODY CORDOVA #### [facility] [address] [place] [address] Geraldo Kandy Protein Ql (U) 30 mg/dl Normal [facility] Comment on above: Performed By: #### MELODY CORDOVA #### [facility] [address] [place] [address] Geraldo Kanyd SPEC GRAVITY 1.015 Normal 1.005-<=1. 025 [facility] Comment on above: Performed By: #### MELODY CORDOVA #### [facility] [address] [place] [address] Geraldo Kandy UR MICRO IND INDICATED Normal [facility] Comment on above: Performed By: #### MELODY CORDOVA #### [facility] [address] [place] [address] Geraldo Kandy Urobilinogen Qn (U) 0.2 {Eileen'U}/dL Normal [facility] Comment on above: Performed By: #### E RUMELODY Galloway #### [facility] [address] [place] [address] Geraldo Kandy LACTATE/LACTIC ACIDon 2019 Lactate [Moles/Vol] 1.1 mmol/L Normal 0.7-2.0 [facility] Comment on above: Performed By: #### H GB #### [facility] [address] [place] [address] Geraldo Kandy PROCALCITONINon 01-02-2020 PCT header 1 SEE BELOW Normal [facility] Comment on above: Result Comment: PCT <0.5ng/mL: Systemic infection (sepsis) is not likely, local bacterial infection possible, low risk for progression to severe systemic infection (severe sepsis) Performed By: #### P RL #### [facility] [address] [place] [address] Geraldo Kandy PCT header 2 SEE BELOW Normal [facility] Comment on above: Result Comment: PCT >/=0.5 and <2 ng/mL: Systemic infection (sepsis) is possible, moderate risk for progression to severe systemic infection (severe sepsis) Performed By: #### P RL #### [facility] [address] [place] [address] Geraldo Kandy PCT header 3 SEE BELOW Normal [facility] Comment on above: Result Comment: PCT >/=2.0 and <10 ng/mL: Systemic infection (sepsis) is likely, unless other causes are known, high risk for progession to severe systemic infection(severe sepsis) Performed By: #### P RL #### [facility] [address] [place] [address] Geraldo Kandy PCT header 4 SEE BELOW Normal [facility] Comment on above: Result Comment: PCT >/= 10 ng/mL: Important systemic inflammatory response almost exclusively due to severe bacterial sepsis or septic shock, high likelihood of severe sepsis or septic shock Performed By: #### P RL #### [facility] [address] [place] [address] Geraldo Kandy PROCALCITONIN 0.62 ng/mL Critically high 0.00-0.50 [facility] Comment on above: Performed By: #### P RL #### [facility] [address], [place] [address] Geraldobhumi Charlesen PROF 14(COMP METB)on 020 Albumin [Mass/Vol] 3.6 g/dL Normal 3.5-5.0 [facility] Comment on above: Performed By: #### C MP #### [facility] [address] [place] [id number] Geraldo Kandy Albumin/Globulin [Mass ratio] 0.8 {ratio} Normal [facility] Comment on above: Performed By: #### C MP #### [facility] [address] [place], [place] [address] Geraldo Kandy ALP [Catalytic activity/Vol] 95 U/L Normal 38-126 [facility] Comment on above: Performed By: #### C MP #### [facility] [address] [place] [address] Geraldo Kandy ALT [Catalytic activity/Vol] 32 U/L Normal 9-52 [facility] Comment on above: Performed By: #### C MP #### [facility] [address] [place], [place] [address] Geraldo Kandy Anion gap [Moles/Vol] 13.8 mmol/L Normal [facility] Comment on above: Performed By: #### C MP #### [facility] [address] [place], [place] [address] Geraldo Kandy AST [Catalytic activity/Vol] 42 U/L Critically high 14-36 [facility] Comment on above: Performed By: #### C MP #### [facility] [address] [place], [place] [address] Geraldo Kandy Bilirubin [Mass/Vol] 0.5 mg/dL Normal 0.2-1.3 [facility] Comment on above: Performed By: #### C MP #### [facility] [address] [place], [place] [address] Geraldo Kandy Calcium [Mass/Vol] 9.4 mg/dL Normal 8.4-10.2 [facility] Comment on above: Performed By: #### C MP #### [facility] [address] [place] [id number] Geraldo Kandy Chloride [Moles/Vol] 100 mmol/L Normal 98-107 [facility] Comment on above: Performed By: #### C MP #### [facility] [address] [place] [id number] Geraldo Kandy CO2 [Moles/Vol] 24.6 mmol/L Normal 22.0-30.0 [facility] Comment on above: Performed By: #### C MP #### [facility] [address] [place] [address] Geraldo Kandy Creatinine [Mass/Vol] 1.36 mg/dL Critically high 0.52-1.04 [facility] Comment on above: Performed By: #### C MP #### [facility] [address] [place] [address] Geraldo Kandy EGFR-AF QATARI 46 mL/min/1.73m2 Critically low >=60 [facility] Comment on above: Performed By: #### C MP #### [facility] [address] [place] [address] Geraldo Kandy EGFR-NON AF QATARI 38 mL/min/1.73m2 Critically low >=60 [facility] Comment on above: Performed By: #### C MP #### [facility] [address] [place] [id number] Geraldo Kandy Globulin (S) [Mass/Vol] 4.5 g/dL Normal [facility] Comment on above: Performed By: #### C MP #### [facility] [address] [place] [id number] Geraldo Kandy Glucose [Mass/Vol] 120 mg/dL Critically high 74-106 [facility] Comment on above: Performed By: #### C MP #### [facility] [address] [place] [phone] Geraldo Kandy Potassium [Moles/Vol] 3.4 mmol/L Normal 3.4-5.0 [facility] Comment on above: Performed By: #### C MP #### [facility] [address] [place] [phone] Geraldo Kandy Protein [Mass/Vol] 8.1 g/dL Normal 6.1-8.2 [facility] Comment on above: Performed By: #### C MP #### [facility] [address] [place] [address] Geraldo Kandy Sodium [Moles/Vol] 135 mmol/L Critically low 137-145 [facility] Comment on above: Performed By: #### C MP #### [facility] [address] [place] [address] Geraldo Kandy Urea nitrogen [Mass/Vol] 22.0 mg/dL Critically high 7.0-17.0 [facility] Comment on above: Performed By: #### C MP #### [facility] [address] [place] [address] Geraldo Kandy Urea nitrogen/Creatinine [Mass ratio] 16.2 mg/mg Normal [facility] Comment on above: Performed By: #### C MP #### [facility] [address] [place] [address] Geraldo Kandy RESPIRATORY PANEL PLUSon Adenovirus Not detected Normal NOT DETECTED [facility] Comment on above: Performed By: #### R SPLUS #### [facility] [address] [place] [address] Geraldo Kandy B. Parapertusis Not detected Normal NOT DETECTED [facility] Comment on above: Performed By: #### R SPLUS #### [facility] [address] [place] [address] Geraldo Kandy B. Pertussis Not detected Normal NOT DETECTED [facility] Comment on above: Performed By: #### R SPLUS #### [facility] [address] [place] [address] Geraldo Kandy Chlamydia Pneumoniae Not detected Normal NOT DETECTED [facility] Comment on above: Performed By: #### R SPLUS #### [facility] [address] [place] [address] Geraldo Kandy Coronavirus 229E Not detected Normal NOT DETECTED [facility] Comment on above: Performed By: #### R SPLUS #### [facility] [address] [place] [address] Geraldo Kandy Coronavirus HKU1 Not detected Normal NOT DETECTED [facility] Comment on above: Performed By: #### R SPLUS #### [facility] [address] [place] [address] Geraldo Kandy Coronavirus NL63 Not detected Normal NOT DETECTED [facility] Comment on above: Performed By: #### R SPLUS #### [facility] [address] [place] [address] Geraldo Kandy Coronavirus OC43 Not detected Normal NOT DETECTED [facility] Comment on above: Performed By: #### R SPLUS #### [facility] [address] [place] [address] Geraldo Kandy Influenza A H1 2009 Not detected Normal NOT DETECTED [facility] Comment on above: Performed By: #### R SPLUS #### [facility] [address] [place] [address] Geraldo Kandy Influenza B Not detected Normal NOT DETECTED [facility] Comment on above: Performed By: #### R SPLUS #### [facility] [address] [place] [address] Geraldo Kandy Metapneumovirus Not detected Normal NOT DETECTED [facility] Comment on above: Performed By: #### R SPLUS #### [facility] [address] [place] [address] Geraldo Kandy Mycoplas. Pneumoniae Not detected Normal NOT DETECTED [facility] Comment on above: Performed By: #### R SPLUS #### [facility] [address] [place] [address] Geraldo Kandy Parainfluenza 1 Not detected Normal NOT DETECTED [facility] Comment on above: Performed By: #### R SPLUS #### [facility] [address] [place] [address] Geraldo Kandy Parainfluenza 2 Not detected Normal NOT DETECTED [facility] Comment on above: Performed By: #### R SPLUS #### [facility] [address] [place] [address] Geraldo Kandy Parainfluenza 3 Not detected Normal NOT DETECTED [facility] Comment on above: Performed By: #### R SPLUS #### [facility] [address] [place] [address] Geraldo Kandy Parainfluenza 4 Not detected Normal NOT DETECTED [facility] Comment on above: Performed By: #### R SPLUS #### [facility] [address] [place] [address] Geraldo Kandy Rhino/Enterovirus Not detected Normal NOT DETECTED [facility] Comment on above: Performed By: #### R SPLUS #### [facility] [address] [place] [address] Geraldo Kandy RP2 Header 1 RESPIRATORY PANEL: VIRUSES Normal [facility] Comment on above: Performed By: #### R SPLUS #### [facility] [address] [place] [address] Geraldo Kandy RP2 Header 2 RESPIRATORY PANEL: BACTERIA Normal [facility] Comment on above: Performed By: #### R SPLUS #### [facility] [address] [place] [address] Geraldo Kandy RP2 Header 4 EUA SEE BELOW Normal [facility] Comment on above: Result Comment: This test is not yet approved or cleared by the [place] FDA. When there are no FDA-approved or cleared tests available, and other criteria are met, FDA can make tests available under an emergency access mechanism called an Emergency Use Authorization (EUA). The EUA for this test is supported by the [place] of Health and Human Service?s (HHS?s) declaration [...] used). Performed By: #### R SPLUS #### [facility] [address] [place] [address] Geraldo Kandy RSV Not detected Normal NOT DETECTED [facility] Comment on above: Performed By: #### R SPLUS #### [facility] [address] [place] [address] Geraldo Gaitan SARS-CoV-2 (COVID-19) RNA VIVIENNE+probe Ql (Unsp spec) Not detected Normal NOT DETECTED [facility] Comment on above: Performed By: #### R SPLUS #### [facility] [address] [place] [address] Geraldo Kandy URINE MICROSCOPIC ONLYon BACTERIA MODERATE Normal NONE SEEN [facility] Comment on above: Performed By: #### MELODY CORDOVA #### [facility] [address] [place] [address] Geraldo Kandy Bacteria identified Cx Nom (U) INDICATED Normal [facility] Comment on above: Performed By: #### MELODY CORDOVA #### [facility] [address] [place] [address] Geraldo Kandy CAST NONE SEEN Normal NONE SEEN [facility] Comment on above: Performed By: #### MELODY CORDVOA #### [facility] [address] [place] [address] Geraldo Kandy Crystals LM Nom (Urine sed) NONE SEEN Normal NONE SEEN [facility] Comment on above: Performed By: #### MELODY CORDOVA #### [facility] [address] [place] [address] Geraldobhumi Charlesen Epithelial cells LM Ql (Urine sed) RARE Normal [facility] Comment on above: Performed By: #### MELODY CORDOVA #### [facility] [address] [place] [address] Geraldo Kandy MUCOUS NONE SEEN Normal NONE SEEN [facility] Comment on above: Performed By: #### MELODY CORDOVA #### [facility] [address] [place] [address] Geraldo Kandy RBC 0-2 Normal 0-2 [facility] Comment on above: Performed By: #### MELODY CORDOVA #### [facility] [address] [place] [address] Geraldo Kandy WBC 5-10 Normal NONE SEEN [facility] Comment on above: Performed By: #### E RUMELODY Galloway #### [facility] [address] [address] Geraldo Gaitan XR CHEST 1 Von 01-02-2020 [...] by: REMY NESS Date: 2020-01-02 18:52 Normal [facility] Social History Date Type Detail Facility Start: 04-18-2023 Alcohol intake Current drinke r of alcohol (finding) [facility] Start: 10-15-2022 End: 04-18-2023 Alcohol intake [facility] Start: 10-15-2022 End: 04-18-2023 Tobacco use panel [facility] Start: 01-06-2023 Alcohol Comment Caffeine intak e: 1-2 cups per day [facility] Start: 09-17-2022 Tobacco smoking stat [facility] Never smoked tobacco [facility] Start: 09-17-2022 Tobacco use and exposure Smokeless t obacco non-user [facility] Start: 1945 Sex Assigned At [...] Musa. Allergies: NKDA . Her call back [phone] documented in this encounter [facility] Telephone encounter Note 04-27-2023 Telephone Encounter - Patinaheed Valentino - 04/27/2023 12:51 PM EST Note Date & Type Note Facility 04-27-2023 Telephone encount er Note Pt called stated she had LT TSA 07/26/22 and is getting a cavity filled and needs antibiotic called into [facility] in [place]. Allergies: NKDA . Her call back [phone] [facility] Telephone encounter Note 04-21-2023 Telephone [...] Date & Type Note Facility 07-27-2022 Note [id number] [id number] [facility] Clinical Note 07-26-2022 Note Date & Type Note Facility 07-26-2022 Note [facility] SURGERY Clinical Discharge Summary PERSON INFORMATION Name RADHA CUADRA Age 77 Years 1945 Sex FEMALE Language Malawian PCP SHARI MCKOEN Marital Status Med Service Ambulatory Surgery Acct# Arrival 07/26/2022 05:52:10 Visit Reason SURGERY - LEFT REVERSE TOTAL SHOULDER - ARTHREX Acuity LOS 053 02:57 Address: [facility] [address] [place] [id number] Comment: PROVIDER INFORMATION VITALS INFORMATION Vital Sign [...] REASON INCOMPLETE INFORMATION (more content not included)... [facility] Clinical Note 02-01-2020 Note Date & [...] position. She was sedated by the nurse pipeline dispatch operator. Bite block was placed in her mouth. [...] patient tolerated the procedure without any difficulties. [facility] SIGNED AND APPROVED BY: DR CARLOS EDUARDO MENENDEZ . 02/07/2020 09:15:00 [facility] Evaluation note Note Date & Type Note Facility Evaluation note Diagnosis Essential hypertension (CMS/HCC) Unspecified essential hypertension documented in this encounter [facility] Evaluation note Note Date & Type Note Facility Evaluation note Diagnosis S/P reverse total shoulder arthroplasty, left- Primary documented in this encounter [facility] Summary Purpose Family History No Family [...] and content) DATE CREATED AUTHOR 05/27/2018 [facility] DATE CREATED AUTHOR AUTHOR'S ORGANIZ ATION 11/06/2020 [facility] pital DATE CREATED AUTHOR AUTHOR'S ORGANIZ ATION 05/12/2022 [facility] dical Specialist DATE CREATED AUTHOR AUTHOR'S ORGANIZ ATION 07/28/2022 [facility] DATE CREATED AUTHOR AUTHOR'S ORGANIZ ATION 04/19/2023 [facility] dical Specialists EPIC DATE CREATED AUTHOR AUTHOR'S ORGANIZ ATION 07/30/2023 [facility] Reason for Visit (unrecogniz ed section and content) Reason Comments Med Refill Reason 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 Care Teams (unrecognized sec tion and content) Deck Engineer Relationship Specialty Start Date End Date Alexander Aparicio NP [address] [place] [facility] [place] [address] PCP - Cristobal FIGUEROA 03/21/21 Shari Mckeon MD [address] [place] [address] PCP - General Family Medicine 07/26/22 Deck Engineer Relationship Specialty Start Date End Date Alexander Aparicio NP [address] [place] [facility] [address] PCP - Cristobal FIGUEROA 03/21/21 Shari Mckeon MD [address] [place] [facility] [place] [address] PCP - General Family Medicine 07/26/22 FOR [...] BE BASED ON THE PRIMARY CLINICAL RECORDS. [facility] [email or web address] [facility]. provides no warranty or guarantee of the accuracy or completeness of information in this document.
--- NOTE | 2023-08-24 07:50 | P.CN_ITS ---
Consult Note: HPI Data of Consult Patient: known to practice within the last 3 years Consult date: 07/11/23 Requesting Physician: Concha Lopez NP Primary Care Provider: KELLY MCKEON Consult Narrative Reason for consult: low back pain Narrative: 78yof who presents for evaluation. longstanding low back pain, progressively worse in past several months. very active and preventing her from completing activities around home. worst with standing and ambulation. imaging shows severe facet arthropathy in lower lumbar spine. has completed >6 weeks of provider directed home exercise program, with limited benefit. uses otc meds as needed. recently underwent bilateral L4-5 L5-S1 facet medial branch block #2 with >80% improvement in pain and functional ability immediately after and hours following the procedure. cc:: CC: Concha Lopez NP Review of Systems ROS Status of ROS 10 or more systems reviewed and unremark able except as noted in history and below Musculoskeletal Reports: back pain PFSH PFSH Medical History Osteoarthritis ?M19.90 - Unspecified osteoarthritis, unspecified site (ICD-10) Heart murmur ?R01.1 - Cardiac murmur, unspecified (ICD-10) Surgical History History of total shoulder replacement ?Z96.619 - Presence of unspecified artificial shoulder joint (ICD-10) History of total knee arthroplasty ?Z96.659 - Presence of unspecified artificial knee joint (ICD-10) History of carpal tunnel release ?Z98.890 - Other specified postprocedural states (ICD-10) Meds Home Medications and Allergies Home Medications ?Medication ?Instructions ?Recorded ?Confirmed ?Type calcium carbonate 600 mg-vitamin 1 tab PO BID 07/11/23 08/22/23 History D3 5 mcg (200 unit) tablet (Calcium 600 + D(3)) losartan 100 mg tablet 100 mg PO DAILY 07/11/23 08/22/23 History magnesium 250 mg tablet 250 mg PO DAILY 07/11/23 08/22/23 History multivitamin-ferrous 1 tab PO DAILY 07/11/23 08/22/23 History fumarate-folic acid 18 mg-400 mcg tablet (Centrum Women) trazodone 50 mg tablet 50 mg PO DAILY 07/11/23 08/22/23 History vitamin B complex 1 cap PO DAILY 07/11/23 08/22/23 History fluticasone 250 mcg-salmeterol 50 inhalation 08/22/23 History mcg/dose blistr powdr for inhalation Allergies Allergy/AdvReac Type Severity Reaction Status Date / Time No Known Drug Allergies Allergy Verified 08/22/23 08:14 Exam Narrative Exam Narrative: Psych-alert and oriented x 3. Attentive and appropriate, constitutionally normal, displays normal mood and affect per situation.? There are no obvious deficits in memory, reasoning, or intellect.? Skin-no obvious rashes, bruising, erythema noted to the patient's area of pain. Extremities- extremities are warm with minimal edema and palpable pulses. Lumbar-no significant tenderness to palpation noted in the lumbar spine and paraspinal musculature.? Pain is elicited with extension, and lateral rotation of the lumbar spine. Range of motion is slightly diminished with these motions due to pain. Facet loading maneuvers are positive bilaterally and do appear to be concordant with the patient's normal complaints of pain.? Coordination remains intact.? Gait remains non-antalgic. Constitutional Documenting provider has reviewed patient's vital signs: yes Common normals: no apparent distress, oriented x3, healthy appearing, alert and well nourished General appearance: cooperative HENAR Common normals: normocephalic, hearing grossly normal bilaterally and moist oral mucous membranes Head and scalp: normocephalic Eye Common normals: PERRL Pupil: PERRL Neck & C-Spine Common normals: full ROM General: normal visual inspection Chest Common normals: inspection of chest normal Respiratory Common normals: normal respiratory effort, no retractions and no use of accessory muscles Neuro Common normals: oriented x3, CN's II-XII intact bilaterally, moves all extremities, no focal motor deficits, no sensory deficits noted and deep tendon reflexes 2+ bilaterally Sensorium/orientation: alert Motor exam: strength 5/5 throughout and no movement abnormalities noted Psych Common normals: mental status grossly normal, thought process normal, cooperative, affect normal, speech normal and activity/motor behavior normal Speech: normal speech Thought process: normal thought process Results Additional Findings Additional findings: If on a controlled substance or opioids, I have checked an OARRS report on this patient and there are no aberrancies noted in the prescribing history.??If on a controlled substance or opioid a drug screen was completed and reviewed within the last year, and if there has not been a drug screen completed we ordered one today to monitor higher risk, state monitored pain medication use. As part of providing excellent, safe, comprehensive care, the following was comp leted at our patient's visit: 1. A medication reconciliation and review to ensure accurate knowledge of current/active medications, including asking our patients to inform us about any [id number] medications or herbal remedies/nutritional supplements/alternative remedies. 2. A review to specifically ensure our patients have had annual screening for screening for depression, screening for tobacco use, and screening for unhealthy alcohol use. For concerning screenings had a discussion with the patient, provided patient education, and recommended follow-up with primary care provider when appropriate. If patient noted with a risk of falling, they received education on strength, gait, and balance training to prevent future risk of falling. Assessment and Plan Assessment and Plan (1) Lumbar spondylosis: Plan bilateral L4-5 L5-S1 facet medial branch thermal RFA under fluoroscopy, risks vs benefits reviewed continue HEP as tolerated continue medications as needed f/u 1 month after procedure
== END 2023-08-24 07:43 | disposition home or self-care (01) ==
LOC: PM 07:42
PROVIDERS: PCP Family Medicine; Visit Provider Nurse Practitioner
DX: M47.816 Spondylosis without myelopathy or radiculopathy, lumbar region (principal)
CPT/HCPCS: G0463

== ENCOUNTER 2023-09-05 09:30 | Day surgery (SDC) | payer MEDICARE, SELFPAY ==
[2023-09-05 09:58] VITALS: BP 129/76; PULSE 73; TEMP 37.6; O2SAT 96
[2023-09-05 10:57] VITALS: BP 164/73; BP 165/72; PULSE 82; PULSE 88; O2SAT 95
[2023-09-05] MEDS: TRIAMCINOLONE ACETONIDE 40 MG/ML VIAL INJ (10:59)
[2023-09-05] MEDS: BUPIVACAINE HCL 0.25% PF 25 MG/10 ML VIAL INJ (11:00)
[2023-09-05] MEDS: LIDOCAINE HCL 2% 400 MG/20 ML MDV 15 ML INJ (11:01)
--- NOTE | 2023-09-05 11:12 | P.ON_ITS ---
Date of procedure: 09/05/23 Pre-op diagnosis: Pain due to lumbar spondylosis Post-op diagnosis: same as pre-op Procedure: Procedure: Bilateral L4-5, L5-S1 radiofrequency ablation Medications: Bupivacaine 0.25% 6cc, lidocaine 2% 5cc, kenalog 80mg The patient was seen and examined in the preoperative holding area.? The site was marked.? Written informed consent was obtained and placed on the chart.? The patient was brought to the medical procedure unit and placed in the prone p osition.? A timeout was completed verifying correct patient, procedure, positioning, and special requirements.? The skin overlying the target points, the designated medial branch, were prepped and draped in the usual sterile fashion.? The target point was achieved with a 20-gauge 15 cm with a 10 mm curved active tip radiofrequency cannula under direct fluoroscopic visualization.? The needle was inserted at level L4 on the right side. Needle tip position was confirmed with lateral fluoroscopic position.? Motor stimulation was carried out at 2 Hz up to 5 volts with the absence of extremity activity.? This was repeated at level L5, S1 on right side.?? Sensory stimulation was carried out.? Concordant pain was realized at the above- mentioned sites.? Then radiofrequency lesioning was carried out times 90 seconds at 80 degrees times 2 lesions at each level.? The radiofrequency probe was removed prior to cannula removal.? The above-mentioned injectate was placed in 1 mL increments.? The needle was removed. The same procedure, with the same steps, was then completed on the left side at the same levels. Insertion sites were covered.? The patient was taken to the postoperative recovery area and monitored for an appropriate length of time before being found suitable for discharge in the company of a responsible adult. Anesthesia: Local Surgeon: Kei Espana Pathology: none sent Condition: stable Disposition: no change
--- NOTE | 2023-09-05 12:06 | PC.NURSE ---
Upon standing after procedure pt reported numbness to leg and dizziness. Pt was placed in wheelchair and observed. Pt stated she was feeling better and numbness was starting to subside but she would like daughter in law to come drive her home. Family was contacted and pt was discharged to their care.
== END 2023-09-05 12:06 | disposition home or self-care (01) ==
LOC: SURGOUT 09:31
PROVIDERS: PCP Family Medicine; Visit Provider Anesthesiology
DX: M47.816 Spondylosis without myelopathy or radiculopathy, lumbar region (principal)
CPT/HCPCS: 64635; 64636; J0665; J3301

== ENCOUNTER 2023-10-06 07:53 | Outpatient (OUT) | payer MEDICARE, SELFPAY ==
--- NOTE | 2023-10-06 08:01 | P.CN_ITS ---
Consult Note: HPI Data of Consult Patient: known to practice within the last 3 years Consult date: 07/11/23 Requesting Physician: Concha Lopez NP Primary Care Provider: KELLY MCKEON Consult Narrative Reason for consult: low back pain Narrative: 78yof who presents for evaluation. longstanding low back pain, progressively worse in past several months. very active and preventing her from completing activities around home. worst with standing and ambulation. imaging shows severe facet arthropathy in lower lumbar spine. has completed >6 weeks of provider directed home exercise program, with limited benefit. uses otc meds as needed. recently underwent bilateral L4-5 L5-S1 facet medial branch thermal RFA with >90% improvement ongoing. Pain today 0/10 increasing to mild with standing and baking. ALDO 0%. cc:: CC: Concha Lopez NP Review of Systems ROS Status of ROS 10 or more systems reviewed and unremark able except as noted in history and below PFSH PFS Medical History Osteoarthritis ?M19.90 - Unspecified osteoarthritis, unspecified site (ICD-10) Heart murmur ?R01.1 - Cardiac murmur, unspecified (ICD-10) Surgical History History of total shoulder replacement ?Z96.619 - Presence of unspecified artificial shoulder joint (ICD-10) History of total knee arthroplasty ?Z96.659 - Presence of unspecified artificial knee joint (ICD-10) History of carpal tunnel release ?Z98.890 - Other specified postprocedural states (ICD-10) Meds Home Medications and Allergies Home Medications ?Medication ?Instructions ?Recorded ?Confirmed ?Type calcium carbonate 600 mg-vitamin 1 tab PO BID 07/11/23 09/05/23 History D3 5 mcg (200 unit) tablet (Calcium 600 + D(3)) losartan 100 mg tablet 100 mg PO DAILY 07/11/23 09/05/23 History magnesium 250 mg tablet 250 mg PO DAILY 07/11/23 09/05/23 History multivitamin-ferrous 1 tab PO DAILY 07/11/23 09/05/23 History fumarate-folic acid 18 mg-400 mcg tablet (Centrum Women) trazodone 50 mg tablet 50 mg PO DAILY 07/11/23 09/05/23 History vitamin B complex 1 cap PO DAILY 07/11/23 09/05/23 History fluticasone 250 mcg-salmeterol 50 inhalation 08/22/23 History mcg/dose blistr powdr for inhalation Allergies Allergy/AdvReac Type Severity Reaction Status Date / Time No Known Drug Allergies Allergy Verified 09/05/23 10:02 Exam Constitutional Documenting provider has reviewed patient's vital signs: yes Common normals: no apparent distress, oriented x3, healthy appearing, alert and well nourished General appearance: cooperative HENMT Common normals: normocephalic, hearing grossly normal bilaterally and moist oral mucous membranes Head and scalp: normocephalic Eye Common normals: PERRL Pupil: PERRL Neck & C-Spine Common normals: full ROM General: normal visual inspection Chest Common normals: inspection of chest normal Respiratory Common normals: normal respiratory effort, no retractions and no use of accessory muscles Neuro Common normals: oriented x3, CN's II-XII intact bilaterally, moves all extremities, no focal motor deficits, no sensory deficits noted and deep tendon reflexes 2+ bilaterally Sensorium/orientation: alert Motor exam: strength 5/5 throughout and no movement abnormalities noted Psych Common normals: mental status grossly normal, thought process normal, cooperative, affect normal, speech normal and activity/motor behavior normal Speech: normal speech Thought process: normal thought process Results Additional Findings Additional findings: If on a controlled substance or opioids, I have checked an OARRS report on this patient and there are no aberrancies noted in the prescribing history.??If on a controlled substance or opioid a drug screen was completed and reviewed within the last year, and if there has not been a drug screen completed we ordered one today to monitor higher risk, state monitored pain medication use. As part of providing excellent, safe, comprehensive care, the following was completed at our patient's visit: 1. A medication reconciliation and review to ensure accurate knowledge of current/active medications, including asking our patients to inform us about any rchc-quc-gmaomol medications or herbal remedies/nutritional supplements/alternative remedies. 2. A review to specifically ensure our patients have had annual screening for screening for depression, screening for tobacco use, and screening for unhealthy alcohol use. For concerning screenings had a discussion with the patient, provided patient education, and recommended follow-up with primary care provider when appropriate. If patient noted with a risk of falling, they received education on strength, gait, and balance training to prevent future risk of falling. Assessment and Plan Assessment and Plan (1) Lumbar spondylosis: Plan bilateral L4-5 L5-S1 facet medial branch thermal RFA providing >90% improvement ongoing f/u as needed
== END 2023-10-06 07:54 | disposition home or self-care (01) ==
LOC: PM 07:53
PROVIDERS: PCP Family Medicine; Visit Provider Nurse Practitioner
DX: M47.816 Spondylosis without myelopathy or radiculopathy, lumbar region (principal)
CPT/HCPCS: G0463

== ENCOUNTER 2023-11-28 13:18 | Outpatient (OUT) | payer MEDICARE, SELFPAY ==
--- OUTSIDE RECORDS SUMMARY | 2023-11-28 13:39 | XMS_ITS | CCD ---
Author Organization [facility] Care Team Providers Care Tablet Tester Name Role Phone PHYSICIAN, DEFAULT Admitting Unavailable PHYSICIAN, DEFAULT Attending Unavailable SHARI MCKEON Primary Care Unavailable SU, DR BÁRBARA Amaral Admitting Unavailorestes BLUE, DR BÁRBARA Amaral Attending Unavailorestes TORRES, SARAHI ENG Consulting Unavailable MIKE, DR MENDOZA Primary Care Unavailable Remy Ness Consulting Unavailable RAMILA, DR CARLOS EDUARDO Worthy Consulting Unavailable MIKE, [...] Unavailable MIKE, SHARI Amaral Primary Care Unavailable SHARI MCKEON Consulting Unavailable Marisa Ramos Admitting Unavail able Marisa Ramos Attending Unavail able SHARI MCKEON Primary Care Unavailable Marisa Ramos Admitting Unavail able Marisa Ramos Attending Unavail able Alessandra DEPENDENCY DIRECTOR, Alexander Plascencia Unavailable Shari Mckeon MD Primary Care Provider Jovi JAIMES, Kei Brian Attending Unavailable Jovi JAIMES, Kei Brian Attending Unavailable Jovi JAIMES, Kei Brian Attending Unavailable Jovi JAIMES, Kei Brian Attending Unavailable ALEXANDER APARICIO Attending UnavailSHARI Borden Attending Unavailable SHARI MCKEON Referring Unavailable MARISA RAMOS Attending Unavailable MARISA RAMOS Referring Unavailable ALEXANDER APARICIO Attending Unavailab MARISA RAMOS Attending Unavailable STEVEALEXANDER HOFF Attending Unavailab ALEXANDER APARICIO Referring Unavailab MARISA RAMOS Attending Unavailable MARISA RAMOS Referring Unavailable MARISA RAMOS Attending Unavailable ALEXANDER APARICIO Referring SHARI Richmond Primary Care Unavailable Allergies Allergy Classification Reported Allergen(s) Allergy Type Date of Onset Reaction(s) Facility (2 sources) Alendronate; Translations: [Fosamax] Drug Allergy [facility] Repository (2 sources) Alendronate Drug [...] (valve) stenosis with insufficiency] Onset: 06-12-2017 Chronic Nonspecific chest pain (1 source) Chest pain, unspecified; Translations: [Chest pain, unspecified] Onset: 10-04-2023 Episodic Osteoarthritis (9 sources) Unspecified osteoarthritis, unspecified site; [...] 10-26-2017 07-15-2022 Chronic Other lower respiratory disease (5 sources) Shortness of breath; Translations: [SHORTNESS OF [...] 01-30-2020 Episodic Other aftercare (1 source) Other alf (current) drug therapy; Translations: [OTH RELEASE COORDINATOR CURRENT DRUG THERAPY] Onset: 02-14-2020 Episodic Other aftercare (1 source) long-term (current) use of aspirin; Translations: [LONG-TERM CURRENT USE OF ASPIRIN] Onset: 01-04-2020 Episodic [...] Test Name Value Interpretation Reference Range Facility XR CHEST 2 VIEWSon 4 XR CHEST 2 VIEWS XR - CHEST 2 VIEWS Reason for exam: Shortness of breath with exertion Views: 2 Findings: There is a left shoulder arthroplasty. The cervical fusion is noted. The lungs are hyperexpanded and the central pulmonary arteries are prominent. There is no infiltrate, mass or edema. The heart size is normal. No pleural abnormalities are seen. Degenerative changes are noted throughout the thoracic spine. Impression: COPD pattern. No acute findings. Dictated on: 09/19/2023 5:41 PM This report has been electronically signed and approved by the interpreting Radiologist. Electronically Signed Joesph Zaidi M.D. 2023-09-19 17:42:04 Normal Not Available MR LUMBAR SPINE WO CONTRASTo n 03-01-2023 [...] spine as detailed. ELECTRONICALLY SIGNED BY: Shawn Preciado, DO Normal Not Available XR CHEST 2 [...] Not Available Consent Formson 07-27-2022 Consent Forms [id number]#1.00OTGTIFF [facility] Discharge Instructionson Discharge Instructions [id number]#1.00OTGTIFF [facility] MAGR Intraoperative Recordon 07-27-2022 MAGR Intraoperative Record MAGR Intra-Op Record Summary Primary Physician: Marisa Ramos DO Finalized Date/Time: 07/27/22 09:45:04 Pt. Name: TRACI BARRAZA Antolin/Sex: 1945 FEMALE Med Rec #: [id number] Physician: Marisa Ramos DO Financial #: [id number] Pt. Type: D Room/Bed: / Admit/Disch: 07/26/22 [...] Role Performed Surgeon - Primary Anesthesiologist of Correspondence Representative Record Time In 07/26/22 07:39:00 07/26/22 07:39:00 07/26/22 07:39:00 Time Out 07/26/22 09:49:00 07/26/22 09:49:00 07/26/22 09:49:00 Procedure Arthroplasty Shoulder Arthroplasty Shoulder Arthroplasty Shoulder Total Reverse(Left) Total Reverse(Left) Total Reverse(Left) Last Modified By: Mode RN, Jania Coello RN, Jania Conde RN 07/26/22 09:49:54 07/26/22 09:49:54 07/26/22 09:49:54 Entry 4 Entry 5 Entry 6 Case Attendee Fahad SHIRT IRONER SUPERVISOR, Paulina SHIRT IRONER SUPERVISOR Lisa Antony CST SHIRT IRONER SUPERVISOR/CSFA, ZOE Worthy SHIRT IRONER SUPERVISOR Role Performed Scrub Personnel Scrub Personnel Logistic Manager Time In 07/26/22 07:39:00 07/26/22 07:39:00 07/26/22 07:39:00 Time Out 07/26/22 09:49:00 07/26/22 09:49:00 07/26/22 09:49:00 Procedure Arthroplasty Shoulder Arthroplasty Shoulder Arthroplasty Shoulder Total Reverse(Left) Total Reverse(Left) Total Reverse(Left) Last Modified By: Mode GOLDMAN, Jania Coello RN, Jania Coello RN, Jania Plascencia 07/26/22 09:49:54 07/26/22 09:49:54 07/26/22 09:49:54 General Comments: Nicholas Gan - [place] rep Surgical Procedures MAGR Pre-Care Text: A.20 [...] to chemical sources (more content not included)... [facility] Outside Recordson 07-27-2022 Outside Records [id number][facility] Orderson 07-27-2022 Provider Orders [id number][facility] Telemetry Stripson 3 Telemetry Strips [id number]#[facility] Anesthesia Noteon 07-26-2022 Anesthesia Note Patient: TRACI BARRAZA Age: 77 years Sex: FEMALE : 1945 [...] 07/26/2022 11:51 EDT] Remy Da Silva MD [facility] Anesthesia Note Patient: TRACI BRARAZA Age: 77 years Sex: FEMALE : 1945 [...] obstructive pulmonary disease (COPD) / SNOMED CT 31078517 / Confirmed Heart murmur / SNOMED CT 008675848 / Confirmed Hyperlipidemia / SNOMED CT 22803093 / Confirmed HTN (hypertension) / SNOMED CT 7814811276 / Confirmed Histories Family History: COPD Mother Father Procedure history: Arthroplasty of left knee (5710935730). Arthroplasty of right knee (0865290318). Carpal tunnel release (676521323). Comments: 06/29/2022 13:15 Dorota De Leon RN bilat Colonoscopy (215443980). EGD - Esophagogastroduodenoscopy (7277458258). Disorder of rotator cuff (6864038689). Comments: 06/29/2022 13:14 Dorota De Leon RN [...] Oriented. Review / Management Laboratory Results Plan [employer] [place] [employer]#(ASA) physical status classification: Class [...] 07/26/2022 08:23 EDT] Remy Da Silva MD [facility] Inpatient Patient Summaryon 07-26-2022 Inpatient Patient Summary [place] [id number] Patient Discharge Instructions Name: TRACI BARRAZA : 1945 Patient Address: [address] [place] [address] [place] [address] Primary Care Provider: Name: SHARI MCKEON After you are discharged if you find you have any questions, please, call [phone] ext [phone] to speak to a nurse. Discharge Diagnosis: [...] alcohol and/or drug addiction problems; contact the [facility] 04/10 Crisis Hotline -Text 4HOPE to 176290. If you received any narcotics, sedation, or [...] business decisions or sign any legal documents [facility] would like to thank you for allowing us to assist you with your healthcare needs. The following includes patient education materials and information regarding your injury/illness. TRACI BARRAZA has been given the following list of follow-up instructions, prescriptions, and patient education materials: Follow-up Instructions With: Address: When: Marisa Ramos [address] [place] [address], [address] [place] [address] Business (1) 08/03/2022 11:00 AM Medications During [...] fingers frequently (more content not included)... Normal [facility] MAGR Intraoperative Recordon 07-26-2022 MAGR Intraoperative Record MAGR Intra-Op Record Summary Primary Physician: Finalized Date/Time: 07/26/22 07:42:32 Pt. Name: TRACI BARRAZA /Sex: 1945 FEMALE Med Rec #: [id number] Physician: Marisa Ramos DO Financial #: [id number] Pt. Type: D Room/Bed: / Admit/Disch: 07/26/22 [...] Warga, Laura RN Role Performed Anesthesiologist of Correspondence Representative Correspondence Representative Record Time In 07/26/22 07:13:00 07/26/22 07:13:00 07/26/22 07:13:00 Time Out 07/26/22 07:38:00 07/26/22 07:38:00 07/26/22 07:38:00 Procedure Interscalene Block(Left) Interscalene Block(Left) Interscalene Block(Left) Last Modified By: Kimberley Le RN, Margaret RN Klaehn, Margaret RN 07/26/22 07:39:31 07/26/22 07:39:31 07/26/22 07:39:31 Entry 4 Case Attendee Amy Bates RN Role Performed Correspondence Representative Time In 07/26/22 07:13:00 Time Out 07/26/22 [...] Stretcher Post-op Destinat (more content not included)... [facility] MAGR PACU Recordon 3 MAGR PACU Record MAGR PACU Record [facility] Physician: Marisa Ramos DO Finalized Date/Time: 07/26/22 10:38:28 Pt. Name: LIV BARRAZAJANELLE Dangelo/Sex: 1945 FEMALE Med Rec #: [id number] Physician: Marisa Ramos DO Financial #: [id number] Pt. Type: D Room/Bed: / Admit/Disch: 07/26/22 05:52:10 - Institution: PACU Case Times MAGR Entry 1 In PACU I 07/26/22 09:51:00 Discharge from PACU 07/26/22 10:35:00 I Last Modified By: Warner Bolton RN 07/26/22 10:38:23 Finalized By: Warner Bolton RN Document Signatures Signed By: Warner Bolton RN 07/26/22 10:38 [facility] MAGR Postoperative Recordon 07-26-2022 MAGR Postoperative Record MAGR Phase II Record Summary Primary Physician: Marisa Ramos DO Finalized Date/Time: 07/26/22 12:01:17 Pt. Name: TRACI BARRAZA/Sex: 1945 FEMALE Med Rec #: [id number] Physician: Marisa Ramos DO Financial #: [id number] Pt. Type: D Room/Bed: / Admit/Disch: 07/26/22 [...] Signed By: Annamarie Samuels RN 07/26/22 12:01 [facility] MAGR Preoperative Recordon 0 07-26-2022 MAGR Preoperative Record MAGR Pre-Op Record Summary Primary Physician: Marisa Ramos DO Finalized Date/Time: 07/26/22 07:44:03 Pt. Name: TRACI BARRAZA/Sex: 1945 FEMALE Med Rec #: [id number] Physician: Marisa Ramos DO Financial #: [id number] Pt. Type: D Room/Bed: / Admit/Disch: 07/26/22 [...] Signed By: Kimberley Le RN 07/26/22 07:44 Normal [facility] Operative Report - Surgeon/P pablo 07-26-2022 [...] Estimated blood loss: 50 Complications: None Findings: Jpmc-za-enzl in the glenohumeral joint Procedure summary: Patient [...] on: 07/26/2022 09:35 EDT] Marisa Ramos DO [facility] Patient Handouton 07-26-[address] [...] or concerns, please call the office at [phone] 7. Follow up as scheduled [facility] XR Shoulder 1 View Lefton XR [...] MD 07/27/22 4:01 pm Technologist: JORDON RUVALCABA [facility] Comment on above: Order Comment: chey lt status post shoulder replacement Progress Note - Nurseon 07-12 Progress Note - Nurse Pre-op call made to pt. Pt states understanding of arrival time of 0600 on 07/26/22 and NPO after MN. [Electronically Signed on: 07/23/2022 09:27 EDT] Shantel Gonsalez RN L [Verified on: 07/23/2022 09:27 EDT] Shantel Gonsalez RN L [facility] Coding Summaryon 07-02-2022 Coding Summary HTMLBase 64 MgcqorujMRi4rTx+PGhlYWQ+PE1F IOPvN87dsOLneR5EG1gMZO0TVQNT FDFLRV7WAI4yuTC8UNvxL0DygvNr UiuyuJFyFE54NPh0XQD8iEukQPtu kQ6hlZYjL5r8NfVjQR74zD13ZBal VERqMzF5ImCtunbcgZHj F9vyHpLikHXoPoe+PHRhYmxlIHdp DYTqRIbeDVLpUrFbwHrhRL6wXq1g ZGVyLWNvbGxhcHNlOiBj s1tpMZJyMPbxSX5jaImzM4PswQY3 WVXco5p0Fs11xXF+BUNvSXA4qVuh SFksb135ZjRop3zuDWX9 pAHrOXwuZII5T66gn8H3HNQzOZVl MHR2ePH8vQ0irPxmffgxZ4XabOQg PfZ3MEB0oEFoiH3zoSnd wqcnyR3nWtq+Y65CYB1YJCYDRV1R Yjn8W2YjIyyauDA+ZX20RJBhCA31 cVSoqZTep6yyhIs1WsAd OWNdUET2qYizNPqgs8TaKOEjH09w uLWpo1L7CIYjpPugnOLcMzCouRF7 kZ4tOZfnjcjfm7jhqcpp Qhoyb8jjfs90qK78X33vYSuxXAUi JIO3NLSqTODhnHcrax1dyR8oQl7+ INbvt2wsk7mvkAm6IwVi DONpdsQahHgqLOL1h9GyKe41U6Hs sHpdr6TnGsr1pw38cSLye7F1pIV3 EFokSUPraR9rSWldDjL0 DZDzRrZkxC84hEQwONzgMj1dpAme mKrpVY2nXEEzvkunVITnzM3zGUDs jVKkmRlyEI5rXGScnlka p600TxNkFGA1CQVwuVLrI8HbuI0s HqVfVICfODCtF7EihHDwYQvfW945 GOsuMvS3NNKfdjJjQ0Yb TKZcyHxyOaH9t7G6Hu7Gp2Gilzzf JIW4MMhiKCP2PpHtQwSuJrD5L1Bq Gth8CLKelDuhRJ8pZ2Le VXVzjclkmzgygDH0YTAxSDTtcA24 sAXnMHdbRi4ed1O2p716VQRyPBCv qH27Lu4ftDxnIJJycQAS oV5ylrooe1nxricdAmWtHATpBPx3 BEu8PFJumKamUkIaOXC0GfG5DCM7 wZTmeY8isMplwqtitF4v Oyc+S05kgF4dCBK5SQN1gdxjECLg uyAyLI91IB24N6ZcMibnpVHywUY+ HKZkkxRllJifQX7kNnVf w1txa7YwSKorX9YwFAWjCVetWzv0 SOQcREC4vDV5vA4sHWUkOZhju8H0 aON8A6LkfhHpwx1fa1uc SDYnEHctY60glZBsk8W1PODudLK8 JJJwjQzqTrKtzL41Oic+PGNvbGdy e9FeDpqzu7pwn9aagVc0 JpLbUEIyriHknEnrISK2v9CvUn67 Q04zHDjsHBUuNILmLOCnDLZrrFkh zq1dxB9iTj1+PGNvbCB3 yIZ3bR5sXZZgFtH8TAzjD308QrNq yEVmRaxzw9etv9vbeAh8VaFyVUKi nwEmkPtyYPT8f1JoSy83 D72nBDzpMVRrHEOrUAXcHENnnWbk rx5weY1iWh9+YE0oa9mrpr51uI94 dHI+YFVnKAO1gBxfLAhg BXZboA0rWSqdDhE5QGTbDlUyuG07 dZDoRTelYn6mdVondLtwHL3sKFOy infoz434CtJoc2tiHUWl mEFwAOwfNSG7S08xt8A4TIVjUOKn WCD9tJF7nW4laOxjrgmcwBOmgSiz oeEbmOoxRCssUXweN423 IHRvcDsnPlBhdGllbnQgTmFtZTo8 S4OjXia3BTHekMgmRO0uzNOnURag Ix1xtVbiqRcmDT4qARCo pzqhv024XfWxf4szAUQugDDuJLry KCX0D17oq8Z1BGTjAWTtXPA5oID1 lE7dmNaeeifriMIlsXqf fnLjcQnpKMylJEydY670JUIolFkk XbErceHuHQJpuSN4TR93EJ94pEFb j5Z7eKR4P3ChTIPmxpwf clcuvYL4LJGrWMYpuB33Fy9mkWif Fc4pGUVbMZH5RPUkuOZhE2WehG0q KhBeFRUwDMSaT7NemCNz WAfiH520DScaHzV5HRMedyCrS0Bw IRSseIqeLnR0y2M2Ak1AW8G1ML87 CI30bUVxq0E9iIB1L0Zh PVEycxfyoghruYD7RZKzIMBtjL74 Vx5kfGozWz5zHSUvWBJ3BTAszAJb A9PjjL6uMzTqUSSaXRFz W6DvwQLvQVwfM965QZfbDpO6IIKw zjBtO0ChTQEyoFjoJfZ3d4L9Ef2A EOb6ON46OF19aEHfx0O5 mXZ7M5YyEQYjzkpypbmdkYH8EUYc CJOyiJ07Rt7fqBrpEf3cCIXvEBH3 ZNLgtXDzB8UwaG6qUdCv XSJoXMEaX1JzqDUxCZcyG605PPwm XbY1BOAltpIxP3VmRDQlnQylDbK4 a3I0Af7FNGYwNR99BJE8 lBJ5HY52GB77J6KdIqybtIVoxSQ+ PHRhYmxlIHdpZHRoPScxMDAlJyBz iIwgSR8dSt2aCCNgBWWt pGltgPIvFvLix0yfJPPsJEnzVI3g mEnlT5JgnVF6KTLqz5f5Yv04I41g F9EfzLU+CJKdzXU8aHG5 eX7dMuBxJdQ6WLhxB269QmUdcNRe Tersp5wee7lzgNw3UlN8ZIEzseIg pBspGOP1b1GuIb79G11p LEmeMGTmALPfDWEtQZRauYrcdp9v gH1sVj7+AWTopCC6aPA0tT9uCwSq YvS5KEugQ531GzZovZJz Wrsjr0lrl1rrlWb0WwOnXVWkamFf sYybEQI6h4WmOd00Q1AcqJrcc6Fh Weo0ev98wFFzx0Z8xEX1 T7KwBAVgmoimuCJhhTkqDT8rPOFl zyzfTCCyiX1oWYXxB5u3IsPkVkI8 QFjaS6WpzgP2VXCltJEh LSwgTSJ3N48xu1C5FSJrUBYjERZ2 gWA0yW5muIxezgjnuEGozNogrzOc zMvzXRkaWXhmI683KOZg fGooWXCrwY9gSZEloSPzxCjgTH2o QKQcvlehDatGGUBkIIkAQLozTF5F LVk3P8VlWcn7ZVZpxPgb WT8arVIfEJhpTw2mbBrhzNsgMZ3m QAZdtctnVYQqlN7xSZOhiAIwwXpa OR7tPBFjqklsa607SqWh XTO2BRKwfMOpG1VzmN3rUsFuLCBa OLIjU2KwjCFnTRryB468ESpnZdO3 QYMipuVzT4WdBDOwcEhx WoB3b8L2Cq0fKd2vAy2zHDD7PC79 QA93mZZiq7Y6rMG7H3MmZCCjrchc almcsEO5HXWxMTYflX95 jETjYLdfBb0jo9L4s700VNWgQHDc yX57Nn8pdPllXHQanNKVwS3eijqo j2gagsjbZsClCMQlFOw1 HRo7GITlcQizGsBuZZI3InX9CYU0 oTAjkI5cvRwvsnpwrO6dQvk+Nzgg KSIotvU9L8WuZvp7KREa aTheCO5oeTBsOVcvGa1wzXclnJha LG7xBRFunptwWFPijP1mPJGqfPVu dOmuUG1cELIdubbso028 PmUkZMJ9ESYgjBFpG8IjmT2wZaEi PBLkKIBuL9BvmBLrFBrgD155IEpo XhJ7LOSwqdIvQ1CtWIUv zXeiRxC5d5T1Lr5KCR2QCXT8V5Pa Lws0UCJyoZfrGL8ryQXvNHwvHb1d kEzyrZclPC6sBDOfmsma TAPdwW6iGDBkhXQxxSzaYG6fDNJv bcxin362NpEjRJF7PZIxzMKmS4Vo tT7cLuAfYCOaZHOaP5Nt dIYxXZxmE993SWocThD4PZFopxLj N3LqMNFasWlaAlY6k8T5Jj7YHEgb dGQ+DP73nl24X5KvLtko Nxv0YKSzIIE1tIL6aR0lPYVoOVep n7I1rVA4R6VechCwfr9gp2hnYALc PEpaU06xuMZrf2Y1VFIx wFD6GEHuzAetDoUkaP12Jxz+PGNv nNifc9WwAnluz1zdp8eejOo4LtXv PCBgjbFkxRaoBSW4z7Sb Sb91S89qTMtqUYTbFGDkJALnNPPs xDbqjz9ldS2zGg5+MSYrhCP9oSH9 wV8cVtUlNcN6CZmyV166 LwBxfVIfOahyd2amm8xrxBk2JhZl CYJfceTgqUqvTMD5r6LoXg64I2Zz aLjit9JxVgz0kd25nHTg v1S2xOT6Z4JyVZTdibrcvDJdvWvg YE0kJJTanjopDPCheR5jZLDhH0f4 BxGmGiB0GIyxM2TzmuM0 ASMrlXXbVJVrdBTBcP2nclnst9hn atqpOiHuBYEhTDr9YIm2RVMfaKun PiOtMVG3MoG4FJQ5wAIz wZ3zmDeaizgkmL8wPqw+DGc4k5sk pEMcHU5fiIK2QR11UG78mMJux9I2 uXM5M7JtMNYmukbqastf sJY7TAEfFCMtgQ63Kn5qxWxkWk7a QVAjLGM1YHSvlNLhA2AsyR4xEmMa DJAnIKAvP5HneMEwHQwt N335CVnuBwL5CLGutoXgE5UgITJg eEzbUnK2v5D0Si5FQY58DO21IM68 aYOmo8F5eJB3P0AeOESw olnpjdrkfOI4GJQuOJSmmY61Fr6r oFggPu8fSYJoVDV6RNUwiOHmC4Wm hQ5mUxPcVXOdEMNqO3Nt aZPoSUhtV733GHmjJiO6CHZzddJf H6DtYXZhxIqoJxD0j2Q2Ht1LKm47 PD06MH09rTSbd3D2lBI2 Z8YfAUVknltxtsyvwCN8XLDkWDMe jS15Ap8tzUqmRi6uMSGnCNZ4HRVh qXLdC6OaxP6kQrIgOQTd KSToB4JlcWMoYOxjT836QCefEjD4 VWFbglDjX9OdANBzgBjbNsP0b8Z4 Ur9BFZrpdwf2D4OfCddl dHI+PA21NDRvIV11sTKrhWSas6oa dNl5JtAzEOYiOXG9rVhiUSmrs4Eb IPFoL36ozPHyt3F5HOHw bGx (more content not included)... [facility] C MRSA Screenon 06-30-2022 C MRSA Screen Negative [facility] Comment on above: Performed By: #### 1 [id number] ####[facility] (DEFAULT)[address] [place] [address] Progress Note - Nurseon 06-12 Progress Note - Nurse Dr. Castro reviewed PAT notes for upcoming surgery 07/26/2022. No new orders at this time [Electronically Signed on: 06/30/2022 11:45 EDT] Annamarie Samuels RN [Verified on: 06/30/2022 11:45 EDT] Annamarie Samuels RN [facility] Provider Orderson 06-30-2022 Provider Orders [id number]#1.00OTGTIFF [facility] .Auto Diff 1on 06-29-2022 Auto Imperial % 10 % Normal 1-12 [facility] Comment on above: Performed By: #### 7 [id number], [id number], [id number] ####[facility] (DEFAULT)[address] [place] [address] 18144 Baso Abs# 0.0 x10 Normal 0.0-0.2 [facility] Comment on above: Performed By: #### 7 [id number], [id number], [id number] ####[facility] (DEFAULT)[address] [place] [address] 91023 Basophils/100 WBC (Bld) 0.7 % Normal 0.2-2.0 [facility] Comment on above: Performed By: #### 7 [id number], [id number], [id number] ####[facility] (DEFAULT)[address] [place] [address] 47458 Eos Abs# 0.6 x10 High 0.0-0.4 [facility] Comment on above: Performed By: #### 7 [id number], [id number], [id number] ####[facility] (DEFAULT)[address] [place] [address] 88957 Eosinophils/100 WBC (Bld) 8.5 % High 0.9-4.0 [facility] Comment on above: Performed By: #### 7 [id number], [id number], [id number] ####[facility] (DEFAULT)[address] [place] [address] 54388 Lymph Abs# 1.6 x10 Normal 1.3-2.9 [facility] Comment on above: Performed By: #### 7 608613, [id number], [id number] ####[facility] (DEFAULT)[address] [place] [address] 46847 Lymphocytes/100 WBC (Bld) 24 % Normal 14-48 [facility] Comment on above: Performed By: #### 7 [id number], [id number], [id number] ####[facility] (DEFAULT)[address] [place] [address] 93049 Imperial Abs# 0.7 x10 Normal 0.0-0.8 [facility] Comment on above: Performed By: #### 7 685992, [id number], [id number] ####[facility] (DEFAULT)[address] [place] [address] Neut Abs# 3.8 x10 Normal 1.5-9.2 [facility] Comment on above: Performed By: #### 7 547437, [id number], [id number] ####[facility] (DEFAULT)[address] [place] [address] Neutrophils/100 WBC (Bld) 57 % Normal 44-88 [facility] Comment on above: Performed By: #### 7 262064, [id number], [id number] ####[facility] (DEFAULT)[address] [place] [address] BMP Standardon 06-29-2022 eGFR Non AA 33 mL/min/1.73m2 Invalid Interpretation Code [facility] Comment on above: Performed By: #### 7 828303, [id number], [id number] ####[facility] (DEFAULT)[address] [place] [address] eGFR AA 40 mL/min/1.73m2 Invalid Interpretation Code [facility] Comment on above: Performed By: #### 7 [id number], [id number], [id number] ####[facility] (DEFAULT)[address] [place] [address] 12751 Anion gap [Moles/Vol] 8.9 mmol/L Normal 5.0-19.0 [facility] Comment on above: Performed By: #### 7 [id number], [id number], [id number] ####[facility] (DEFAULT)[address] [place] [address] 18264 Calcium [Mass/Vol] 9.3 mg/dL Normal 8.9-10.3 [facility] Comment on above: Performed By: #### 7 [id number], [id number], [id number] ####[facility] (DEFAULT)[address] [place] [address] 73186 Chloride [Moles/Vol] 102 mmol/L Normal 101-111 [facility] Comment on above: Performed By: #### 7 [id number], [id number], [id number] ####[facility] (DEFAULT)[address] [place] [address] 88307 CO2 [Moles/Vol] 28 mmol/L Normal 21-32 [facility] Comment on above: Performed By: #### 7 [id number], [id number], [id number] ####[facility] (DEFAULT)[address] [place] [address] 57111 Creatinine [Mass/Vol] 1.53 mg/dL High 0.60-1.30 [facility] Comment on above: Performed By: #### 7 [id number], [id number], [id number] ####[facility] (DEFAULT)[address] [place] [address] 25848 Glucose [Mass/Vol] 107.0 mg/dL Normal 74.0-118.0 [facility] Comment on above: Performed By: #### 7 [id number], [id number], [id number] ####[facility] (DEFAULT)[address] [place] [address] 91109 Osmolality 279 mOsm/L Invalid Interpretation Code [facility] Comment on above: Performed By: #### 7 [id number], [id number], [id number] ####[facility] (DEFAULT)[address] [place] [address] 67919 Potassium [Moles/Vol] 3.9 mmol/L Normal 3.6-5.1 [facility] Comment on above: Performed By: #### 7 098018, [id number], [id number] ####[facility] (DEFAULT)[address] [place] [address] 22309 Sodium [Moles/Vol] 135.0 mmol/L Low 136.0-144 . 0 [facility] Comment on above: Performed By: #### 7 [id number], [id number], [id number] ####[facility] (DEFAULT)[address] [place] [address] 71759 Urea nitrogen [Mass/Vol] 36 mg/dL High 8-26 [facility] Comment on above: Performed By: #### 7 [id number], [id number], [id number] ####[facility] (DEFAULT)[address] [place] [address] Urea nitrogen/Creatinine [Mass ratio] 23.5 mg/mg High 4.6-16.2 [facility] Comment on above: Performed By: #### 7 [id number], [id number], [id number] ####[facility] (DEFAULT)[address] [place] [address] CBC w/ Auto Diffon Erythrocyte distribution width (RBC) [Ratio] 12.8 % Normal 11.5-15.0 [facility] Comment on above: Performed By: #### 7 [id number], [id number], [id number] ####[facility] (DEFAULT)[address] [place] [address] Hematocrit (Bld) [Volume fraction] 36.4 % Normal 33.7-40.4 [facility] Comment on above: Performed By: #### 7 [id number], [id number], [id number] ####[facility] (DEFAULT)[address] [place] [address] Hemoglobin (Bld) [Mass/Vol] 12.2 g/dL Normal 11.3-15.9 [facility] Comment on above: Performed By: #### 7 154239, [id number], [id number] ####[facility] (DEFAULT)[address] [place] [address] Man Diff? Auto Invalid Interpretation Code [facility] Comment on above: Performed By: #### 7 [id number], [id number], [id number] ####[facility] (DEFAULT)[address] [place] [address] MCH (RBC) [Entitic mass] 32 pg Normal 24-34 [facility] Comment on above: Performed By: #### 7 343355, [id number], [id number] ####[facility] (DEFAULT)[address] [place] [address] MCHC (RBC) [Mass/Vol] 33 g/dL Normal 26-37 [facility] Comment on above: Performed By: #### 7 394908, [id number], [id number] ####[facility] (DEFAULT)[address] [place] [address] 51417 MCV (RBC) [Entitic vol] 97 fL Normal 81-100 [facility] Comment on above: Performed By: #### 7 422644, [id number], [id number] ####[facility] (DEFAULT)[address] [place] [id number] Platelet 336 x10 Normal 138-427 [facility] Comment on above: Performed By: #### 7 [id number], [id number], [id number] ####[facility] (DEFAULT)[address] [place] [address] 71211 Platelet mean volume (Bld) [Entitic vol] 7.2 fL Normal 6.3-10.2 [facility] Comment on above: Performed By: #### 7 [id number] ####[facility] (DEFAULT)[address] [place] [address] 62614 RBC 3.77 x10 Normal 3.70-5.30 [facility] Comment on above: Performed By: #### 7 [id number], [id number] ####[facility] (DEFAULT)[address] [place] [address] 87346 WBC 6.7 x10 Normal 3.5-10.5 [facility] Comment on above: Performed By: #### 7 [id number], [id number], [id number] ####[facility] (DEFAULT)[address] [place] [address] 77686 UA w Culture if Ind Standard on 06-29-2022 Breakpoint UA Normal [facility] Comment on above: Performed By: #### 1 [id number] #### [facility] (DEFAULT) [address] [place] [address] 79043 Color (U) Yellow Normal [facility] Comment on above: Performed By: #### 1 [id number] #### [facility] (DEFAULT) [address] [place] [address] 24348 Culture? Not Indicated Invalid Interpretation Code [facility] Comment on above: Result Comment: Resu lt created by rule GL_MAGR_ADD_UA_CULT1 Performed By: #### 1 [id number] #### [facility] (DEFAULT) [address] [place] [address] 90643 Glucose (U) [Mass/Vol] Negative Normal [facility] Comment on above: Performed By: #### 1 [id number] #### [facility] (DEFAULT) [address] [place] [address] 22792 Ketones Ql (U) Negative Normal [facility] Comment on above: Performed By: #### 1 [id number] #### [facility] (DEFAULT) [address] [place] [address] 85529 Micro? Not Indicated Invalid Interpretation Code [facility] Comment on above: Result Comment: Resu lt created by rule GL_MAGR_ADD_UA_MICRO Performed By: #### 1 [id number] #### [facility] (DEFAULT) [address] [place] [address] 53349 UA Bilirubin Negative Normal [facility] Comment on above: Performed By: #### 1 [id number] #### [facility] (DEFAULT) [address] [place] [address] 57637 UA Blood Negative Normal NEGATIVE [facility] Comment on above: Performed By: #### 1 [id number] #### [facility] (DEFAULT) [address] [place] [address] 84211 UA Clarity CLEAR Normal CLEAR [facility] Comment on above: Performed By: #### 1 [id number] #### [facility] (DEFAULT) [address] [place] [address] 82155 UA Leuk Est Negative Normal NEGATIVE [facility] Comment on above: Performed By: #### 1 [id number] #### [facility] (DEFAULT) [address] [place] [address] 84036 UA Nitrite Negative Normal NEGATIVE [facility] Comment on above: Performed By: #### 1 [id number] #### [facility] (DEFAULT) [address] [place] [address] 22577 UA pH 6.5 Normal 5-8 [facility] Comment on above: Performed By: #### 1 [id number] #### [facility] (DEFAULT) [address] [place] [address] 09654 UA Protein Negative Normal NEGATIVE [facility] Comment on above: Performed By: #### 1 [id number] #### [facility] (DEFAULT) [address] [place] [address] UA Spec Grav 1.010 Normal 1.001-1.03 5 [facility] Comment on above: Performed By: #### 1 [id number] #### [facility] (DEFAULT) [address] [place] [address] 34660 UA Urobilinogen 0.2 mg/dL Normal 0.2-1.0 [facility] Comment on above: Performed By: #### 1 [id number] #### [facility] (DEFAULT) [address] [place] [address] 73366 Urine Source Clean Catch Normal [facility] Comment on above: Performed By: #### 1 [id number] #### [facility] (DEFAULT) [address] [place] [address] 09553 MRI Shoulder w/o Lefton 04-15 MRI Shoulder [...] by Adarsh Adams on 05/11/2022 1041 Normal [facility] SCREENING MAMMOGRAM W/ARABELLA, BILATERAL*on 11-20-2021 SCREENING [...] VERY IMPORTANT TO YOUR HEALTH. THE CURRENT [employer] GUIDELINES RECOMMENDS ANNUAL MAMMOGRAPHY BEGINNING AT AGE 39 THIS FACILITY USES A REMINDER SYSTEM TO ENSURE ALL PATIENTS RECEIVE REMINDER NOTIFICATIONS AT THE APPROPRIATE TIME BASED ON THE RECOMMENDATIONS OF THIS EXAM. Report reported and signed by Alejandro Forte on 11/20/2021 0949 Normal [facility] Comprehensive Metabolic Pane george 06-10-2021 Albumin [Mass/Vol] 4.2 g/dL Normal 3.6-5.1 [facility] Comment on above: Performed By: #### C JEWELS LIPD #### [facility] [address] [place], [place] [id number] Albumin/Globulin [Mass ratio] 1.7 {ratio} Normal 1.0-2.5 [facility] Comment on above: Performed By: #### C JEWELS LIPD #### [facility] [address] [place], [place] [id number] ALP [Catalytic activity/Vol] 82 U/L Normal 35-119 [facility] Comment on above: Performed By: #### C JEWELS LIPD #### [facility] [address] [place], [place] [id number] ALT [Catalytic activity/Vol] 15 U/L Normal 6-33 [facility] Comment on above: Result Comment: 02/11 Female reference range changed. Performed By: #### C JEWELS LIPD #### [facility] [address] [place], [place] [id number] Anion gap [Moles/Vol] 15 mmol/L Normal 12-20 [facility] Comment on above: Result Comment: Effe ctive 03/19/2019 reference range changed. Performed By: #### C JEWELS LIPD #### [facility] [address] [place], [place] [id number] AST [Catalytic activity/Vol] 21 U/L Normal 9-34 [facility] Comment on above: Performed By: #### C MP, LIPD #### [facility] [address] [place], [place] [id number] BUN/CREA 28 Ratio High 6-22 [facility] Comment on above: Performed By: #### C MP, LIPD #### [facility] [address] [place], [place] [id number] Calcium [Mass/Vol] 9.3 mg/dL Normal 8.6-10.2 [facility] Comment on above: Performed By: #### C MP, LIPD #### [facility] [address] [place], [place] [id number] Chloride [Moles/Vol] 106 mmol/L Normal 98-107 [facility] Comment on above: Performed By: #### C MP, LIPD #### [facility] [address] [place], [place] [id number] CO2 [Moles/Vol] 24 mmol/L Normal 20-31 [facility] Comment on above: Performed By: #### C MP, LIPD #### [facility] [address] [place], [place] [id number] Creatinine [Mass/Vol] 1.1 mg/dL Normal 0.6-1.4 [facility] Comment on above: Performed By: #### C MP, LIPD #### [facility] [address] [place], [place] [id number] eGFRAA 58 mL/min/1.73m2 Low >60 [facility] Comment on above: Performed By: #### C MP, LIPD #### [facility] [address] [place], [place] [id number] eGFRNAA 48 mL/min/1.73m2 Low >60 [facility] Comment on above: Performed By: #### C MP, LIPD #### [facility] [address] [place], [place] [id number] Globulin (S) [Mass/Vol] 2.5 g/dL Normal 1.9-3.7 [facility] Comment on above: Performed By: #### C MP, LIPD #### [facility] [address] [place], [place] [id number] Glucose [Mass/Vol] 94 mg/dL Normal 65-99 [facility] [employer] Comment on above: Result Comment: For FASTING Glucose --- ADA reference ranges: Normal 65-99 mg/dl Prediabetes 100-125 Diabetes >/= 126 Performed By: #### C MP, LIPD #### [facility] [address] [place], [place] [id number] Potassium [Moles/Vol] 4.4 mmol/L Normal 3.5-5.5 [facility] [employer] Comment on above: Performed By: #### C MP, LIPD #### [facility] [address] [place], [place] [id number] Protein [Mass/Vol] 6.7 g/dL Normal 6.1-8.1 [facility] [employer] Comment on above: Performed By: #### C MP, LIPD #### [facility] [address] [place], [place] [id number] Sodium [Moles/Vol] 141 mmol/L Normal 135-146 [facility] [employer] Comment on above: Performed By: #### C MP, LIPD #### [facility] [address] [place], [place] [id number] TBIL <0.3 Normal [facility] Comment on above: Performed By: #### C MP, LIPD #### [facility] [address] [place], [place] [id number] Urea nitrogen [Mass/Vol] 32 mg/dL High 7-25 [facility] [employer] Comment on above: Performed By: #### C MP, LIPD #### [facility] [address] [place], [place] [id number] Lipid Panelon 06-10-2021 Cholesterol [Mass/Vol] 237 mg/dL High 125-200 [facility] [employer] Comment on above: Result Comment: Low risk < 200mg/dL Borderline risk 201-239 mg/dl High risk > or equal to 240 Performed By: #### C MP, LIPD #### [facility] [address] [place], [place] [id number] Cholesterol in HDL [Mass/Vol] 100 mg/dL Normal >40 [facility] Comment on above: Result Comment: High Cardiovascular Risk HDL <40 mg/dL Low Cardiovascular Risk HDL > or equal to 60 mg/dl Performed By: #### C MP, LIPD #### [facility] [address] [place], [place] [id number] Cholesterol in LDL [Mass/Vol] 124 mg/dL Normal [facility] Comment on above: Result Comment: LDL ATP III CLASSIFICATION LDL less than 100 mg/dl Optimal LDL 100-129 mg/dl Near or above optimal LDL 130-159 Borderline high LDL 160-189 High LDL greater than 189 mg/dl Very High Performed By: #### C MP, LIPD #### [facility] [address] [facility] [place] [id number] Cholesterol in VLDL [Mass/Vol] 13 mg/dL Normal [facility] Comment on above: Performed By: #### C MP, LIPD #### [facility] [address] [place], [place] [id number] Cholesterol.total/Ch olesterol in HDL [Mass ratio] 2 {ratio} Normal [facility] Comment on above: Performed By: #### C MP, LIPD #### [facility] [address] [place], [place] [id number] Triglyceride [Mass/Vol] 67 mg/dL Normal 30-150 [facility] Comment on above: Result Comment: TRIG ATPIII CLASSIFICATIONS TRIG less than 150 mg/dl Normal TRIG 150-199 mg/dl Borderline High TRIG 200-500 mg/dl High TRIG greather than 500 mg/dl Very High Performed By: #### C MP, LIPD #### [facility] [address] [place], [place] [id number] ECHOCARDIO M/2D COMPLETEon 0 10-24-2020 ECHOCARDIO M/2D COMPLETE Patient: TRACI BARRAZA Exam Date: 10/24/2020 : 1945 Gender:F Ordering : DR SHARI MCKEON M.D. Admission #: [id number] Family : Order #: [id number] CLICK HERE TO VIEW EXAM ECHOCARDIOGRAM REPORT [...] Area(A4C): 13.90 cm2 Left Atrium Systolic Volume(A2C): 31420 mm3 Left Atrium Systolic Volume(A4C): 67131 mm3 Mitral Valve MV E to A Ratio: 1.10 Mitral Valve A-Wave Peak Velocity: 68.60 cm/s Mitral Valve E-Wave Peak Velocity: 74.50 cm/s Deceleration Time: 259 ms Right Ventricle Aorta AO Root Diam: 2.60 cm Aortic Valve Peak Velocity (Antegrade Flow): 161.00 cm/s, 230.00 cm/s AoV Area (Peak Daniel): 1.93 cm2 AoV Area (VTI): 1.90 cm2 Deceleration [place]: 1880 mm/s2 Pressure Half-Time: 528 ms Peak [...] Burrows M.D. on 10/24/2020 at 19:17 Normal [facility] HEMOGLOBINon 09-30-2020 Hemoglobin (Bld) [Mass/Vol] 12.3 g/dL Normal 12.0-16.0 [facility] Comment on above: Performed By: #### H GB #### [facility] [address] [place] [address] Geraldo Gaitan H PYLORI TISSUEon 02-01-2020 H PYL TISSUE, UREASE Negative Normal NEGATIVE [facility] Comment on above: Performed By: #### H GB #### [facility] [address] [place] [address] Geraldo Gaitan COVID-19 PCRon 01-27-2020 SARS-CoV-2 (COVID-19) RNA VIVIENNE+probe Ql (Unsp spec) Not detected Normal Not Detected [facility] Comment on above: Result Comment: This nucleic acid amplification test was developed and its performance characteristics determined by [employer]. Nucleic acid amplification tests include PCR and [...] #### C VDSTAT, CVDPCR #### [facility] [address] [place] [address] Geraldo Gaitan PRIORITY COVID PROCESSINGon 01-27-2020 Comment Comment Normal [facility] Comment on above: Result Comment: Rece ived Performed By: #### C VDSTAT, CVDPCR #### [facility] [address] [place] [address] [employer] CULTURE BLOODon 01-08-2020 Microscopic examination of blood, [...] F Trimethoprim/Sulfamethoxazol e <=20 S F Normal [facility] Comment on above: Performed By: #### H GB #### [facility] [address] [place] [address] [employer] BLOOD CULTURE ID PANELon A. baumannii Not detected [facility] Comment on above: Performed By: #### B MIRYAM #### [facility] [address] [address] Geraldo Kandy BCID CONTROLS PASSED Normal [facility] Comment on above: Performed By: #### B MIRYAM #### [facility] [address] [address] Geraldobhumi Gaitan BCIDBTHD BLOOD CULTURE BOTTLE INFORMATION Normal [facility] Comment on above: Performed By: #### B MIRYAM #### [facility] [address] [address] Geraldo Kandy BCIDHD1 ANTIMICROBIAL RESIST ANCE GENES [facility] Comment on above: Performed By: #### B MIRYAM #### [facility] [address] [place] [address] Geraldo Kandy BCIDHD2 SEE BELOW [facility] Comment on above: Result Comment: KPC- carbapenem resistance gene, mecA- methecillin resistance gene, van A/B- vancomycin resistance gene Note: Antimicrobial resitance can occur via multiple mechanisms. A Not Detected result for the [employer] antomicrobial resistance gene assays does not indicate antimicrobial susceptibility. Subculturing is required for specis identificationand susceptibility testing of isolates. Performed By: #### B MIRYAM #### [facility] [address] [place] [address] Geraldobhumi Charlesen BCIDHD3 Positive [facility] Comment on above: Performed By: #### B MIRYAM #### [facility] [address] [place] [address] Geraldo Kandy BCIDHD3 Negative [facility] Comment on above: Performed By: #### B MIRYAM #### [facility] [address] [place] [address] Geraldobhumi Charlesen BCIDHD5 YEAST Normal [facility] Comment on above: Performed By: #### B MIRYAM #### [facility] [address] [place] [address] Geraldo Kandy BCIDHD6 SEE BELOW [facility] Comment on above: Result Comment: Note : All genus and species BCID [employer] results will be verified post subculturing via Maldi-Tof MS testing methodology. Performed By: #### B MIRYAM #### [facility] [address] [address] Geraldo Kandy Bottle Set: Set 2 Normal [facility] Comment on above: Performed By: #### B MIRYAM #### [facility] [address] [address] Geraldo Kandy Bottle: Aerobic Normal [facility] Comment on above: Performed By: #### B MIRYAM #### [facility] [address] [place] [address] Geraldo Kandy Naomi albicans Not detected Normal [facility] Comment on above: Performed By: #### B MIRYAM #### [facility] [address] [place] [address] Geraldo Kandy Naomi glabrata Not detected Normal [facility] Comment on above: Performed By: #### B MIRYAM #### [facility] [address] [place] [address] Geraldo Kandy Naomi Krusei Not detected Normal [facility] Comment on above: Performed By: #### B MIRYAM #### [facility] [address] [place] [address] Geraldo Kandy Naomi Parapsilosis Not detected Normal [facility] Comment on above: Performed By: #### B MIRYAM #### [facility] [address] [place] [address] Geraldo Kandy Naomi Tropicalis Not detected Normal [facility] Comment on above: Performed By: #### B MIRYAM #### [facility] [address] [place] [address] Geraldo Kandy E. Cloacae complex Not detected Normal [facility] Comment on above: Performed By: #### B MIRYAM #### [facility] [address] [place] [address] Geraldo Kandy Enterobacteriaceae Detected Invalid Interpretation Code [facility] Comment on above: Performed By: #### B MIRYAM #### [facility] [address] [place] [address] Geraldo Kandy Enterococcus Not detected Normal [facility] Comment on above: Performed By: #### B MIRYAM #### [facility] [address] [place] [address] Geraldo Kandy Escheria coli Detected Normal [facility] Comment on above: Performed By: #### B MIRYAM #### [facility] [address] [place] [address] Geraldo Kandy K. oxytoca Not detected Normal [facility] Comment on above: Performed By: #### B MIRYAM #### [facility] [address] [place] [address] Geraldo Kandy K. pneumoniae Not detected Normal [facility] Comment on above: Performed By: #### B MIRYAM #### [facility] [address] [place] [address] Geraldo Kandy KPC Resistant Gene Not detected Normal [facility] Comment on above: Performed By: #### B MIRYAM #### [facility] [address] [place] [address] Geraldobhumi Charlesen List. monocytogenes Not detected Normal [facility] Comment on above: Performed By: #### B MIRYAM #### [facility] [address] [place] [address] Geraldo Kandy mecA Resistant Gene Not detected Normal [facility] Comment on above: Performed By: #### B MIRYAM #### [facility] [address] [place] [address] Geraldo Kandy Proteus Not detected Normal [facility] Comment on above: Performed By: #### B MIRYAM #### [facility] [address] [place] [address] Geraldo Kandy Pseud. aeruginosa Not detected Normal [facility] Comment on above: Performed By: #### B MIRYAM #### [facility] [address] [place] [address] Geraldo Kandy Seratia marcescens Not detected Normal [facility] Comment on above: Performed By: #### B MIRYAM #### [facility] [address] [place] [address] Geraldo Kandy Site: R AC Normal [facility] Comment on above: Performed By: #### B MIRYAM #### [facility] [address] [place] [address] Geraldo Kandy Staph. aureus Not detected Normal [facility] Comment on above: Performed By: #### B MIRYAM #### [facility] [address] [place] [address] Geraldo Kandy Staphylococcus Not detected Normal [facility] Comment on above: Performed By: #### B MIRYAM #### [facility] [address] [place] [address] Geraldo Kandy Strep. agalactiae Not detected Normal [facility] Comment on above: Performed By: #### B MIRYAM #### [facility] [address] [place] [address] Geraldo Kandy Strep. pneumoniae Not detected Normal [facility] Comment on above: Performed By: #### B MIRYAM #### [facility] [address] [place] [address] Geraldo Kandy Strep. pyogenes Not detected Normal [facility] Comment on above: Performed By: #### B MIRYAM #### [facility] [address] [place] [address] Geraldo Kandy Streptococcus Not detected Normal [facility] Comment on above: Performed By: #### B MIRYAM #### [facility] [address] [place] [address] Geraldobhumi Gaitan Aicha/B Resist. Gene Not detected Normal [facility] Comment on above: Performed By: #### B MIRYAM #### [facility] [address] [place] [address] Geraldo Kandy CBC AUTO DIFFon 01-02-2020 BASO # 0.0 103/ul Normal 0.0-0.1 [facility] Comment on above: Performed By: #### C BC #### [facility] [address] [place] [address] Geraldo Kandy Basophils/100 WBC (Bld) 0.3 % Normal 0.2-2.0 [facility] Comment on above: Performed By: #### C BC #### [facility] [address] [place] [address] Geraldo Kandy EO # 0.0 103/ul Normal 0.0-0.7 [facility] Comment on above: Performed By: #### C BC #### [facility] [address] [place] [address] Geraldo Kandy Eosinophils/100 WBC (Bld) 0.3 % Critically low 0.9-7.0 [facility] Comment on above: Performed By: #### C BC #### [facility] [address] [place] [address] Geraldo Kandy Erythrocyte distribution width (RBC) [Ratio] 12.6 % Normal 11.0-15.0 [facility] Comment on above: Performed By: #### C BC #### [facility] [address] [place] [address] Geraldo Kandy Hematocrit (Bld) [Volume fraction] 42.7 % Normal 36.0-48.0 [facility] Comment on above: Performed By: #### C BC #### [facility] [address] [place] [address] Geraldo Kandy Hemoglobin (Bld) [Mass/Vol] 13.6 g/dL Normal 12.0-16.0 [facility] Comment on above: Performed By: #### C BC #### [facility] [address] [place] [address] Geraldo Kandy IG # 0.04 10e3/ul Critically high 0.00-0.03 [facility] Comment on above: Performed By: #### C BC #### [facility] [address] [place] [address] Geraldo Kandy IG % 0.3 % Normal 0.0-0.5 [facility] Comment on above: Performed By: #### C BC #### [facility] [address] [place] [address] Geraldo Kandy LYMPH # 0.5 103/ul Critically low 1.2-3.8 [facility] Comment on above: Performed By: #### C BC #### [facility] [address] [place] [address] Geraldo Kandy Lymphocytes/100 WBC (Bld) 4.4 % Critically low 20.5-60.0 [facility] Comment on above: Performed By: #### C BC #### [facility] [address] [place] [address] Geraldo Gaitan MANUAL DIFF REQ NO Normal [facility] Comment on above: Performed By: #### C BC #### [facility] Laboratory [address] [place] [address] Geraldo Gaitan MCH (RBC) [Entitic mass] 30.6 pg Normal 26.7-34.0 [facility] Comment on above: Performed By: #### C BC #### [facility] Laboratory [address] [place] [address] Geraldo Gaitan MCHC (RBC) [Mass/Vol] 31.9 g/dL Normal 29.9-35.2 [facility] Comment on above: Performed By: #### C BC #### [facility] Laboratory [address] [place] [address] Geraldo Gaitan MCV (RBC) [Entitic vol] 96.0 fL Normal 81.0-99.0 [facility] Comment on above: Performed By: #### C BC #### [facility] Laboratory [address] [place] [address] Geraldo Gaitan MONO # 0.8 103/ul Normal 0.3-0.8 [facility] Comment on above: Performed By: #### C BC #### [facility] Laboratory [address] [place] [address] Geraldo Gaitan Monocytes/100 WBC (Bld) 6.5 % Normal 1.7-12.0 [facility] Comment on above: Performed By: #### C BC #### [facility] Laboratory [address] [place] [address] Geraldo Gaitan NEUT # 10.1 103/ul Critically high 1.4-6.5 [facility] Comment on above: Performed By: #### C BC #### [facility] Laboratory [address] [place] [address] Geraldo Gaitan Neutrophils/100 WBC (Bld) 88.2 % Critically high 43.0-75.0 [facility] Comment on above: Performed By: #### C BC #### [facility] [address] [place] [address] Geraldo Gaitan Platelet mean volume (Bld) [Entitic vol] 9.8 fL Normal 9.5-13.5 [facility] Comment on above: Performed By: #### C BC #### [facility] Laboratory [address], [place] [address] Geraldo Gaitan PLT 254 103/ul Normal 150-450 [facility] Comment on above: Performed By: #### C BC #### [facility] Laboratory [address], [place] [address] Geraldo Gaitan RBC 4.45 106/ul Normal 4.20-5.40 [facility] Comment on above: Performed By: #### C BC #### [facility] Laboratory [address], [place] [address] HEAD WO CONon 01-02-2020 [...] Date: 2020-01-02 19:00 Normal [facility] CULTURE BLOODon 01-02-2020 Microscopic examination of blood, culture Culture Observations: No growth at 5 days Normal [facility] Comment on above: Performed By: #### H GB #### [facility] Laboratory [address] [place] [id number] Geraldo Gaitan CULTURE URINEon 01-02-2020 CULTURE URINE Culture Observations : Light growth of mixed genital eliezer.No potential pathogens seen. Normal [facility] Comment on above: Performed By: #### H GB #### [facility] Laboratory [address] [place] [address] Geraldo Kandy ER URINE PROFILEon 0 Bilirubin Ql (U) Negative Normal NEGATIVE [facility] Comment on above: Performed By: #### MELODY CORDOVA #### [facility] Laboratory [address] [place] [address] Geraldo Kandy Clarity (U) SL CLOUDY Normal [facility] Comment on above: Performed By: #### MELODY CORDOVA #### [facility] [address] [place] [address] Geraldo Kandy Color (U) LT. YELLOW Normal YELLOW [facility] Comment on above: Performed By: #### MELODY CORDOVA #### [facility] Laboratory [address] [place] [address] Geraldo Kandy ERUAHD A micrscopic examina tion will be performed if indicated. Normal [facility] Comment on above: Performed By: #### MELODY CORDOVA #### [facility] Laboratory [address] [place] [address] Geraldo Kandy Glucose Ql (U) Negative Normal NEGATIVE [facility] Comment on above: Performed By: #### MELODY CORDOVA #### [facility] [address] [place] [address] Geraldo Kandy Hemoglobin Ql (U) SMALL Normal NEGATIVE [facility] Comment on above: Performed By: #### MELODY CORDOVA #### [facility] [address] [place] [address] Geraldo Kandy Ketones Ql (U) Negative Normal NEGATIVE [facility] Comment on above: Performed By: #### MELODY CORDOVA #### [facility] [address] [place] [address] Geraldo Kandy LEUKOCYTES TRACE Normal NEGATIVE [facility] Comment on above: Performed By: #### MELODY CORDOVA #### [facility] [address] [place] [address] Geraldo Kandy Nitrite Ql (U) Negative Normal NEGATIVE [facility] Comment on above: Performed By: #### MELODY CORDOVA #### [facility] [address] [place] [address] Geraldo Kandy pH (U) 7.0 [pH] Normal 5-9 [facility] Comment on above: Performed By: #### MELODY CORDOVA #### [facility] [address] [place] [address] Geraldo Kandy Protein Ql (U) 30 mg/dl Normal [facility] Comment on above: Performed By: #### MELODY CORDOVA #### [facility] [address] [place] [address] Geraldo Kandy SPEC GRAVITY 1.015 Normal 1.005-<=1. 025 [facility] Comment on above: Performed By: #### MELODY CORDOVA #### [facility] [address] [place] [address] Geraldo Kandy UR MICRO IND INDICATED Normal [facility] Comment on above: Performed By: #### MELODY CORDOVA #### [facility] [address] [place] [address] Geraldo Kandy Urobilinogen Qn (U) 0.2 {Eileen'U}/dL Normal [facility] Comment on above: Performed By: #### MELODY CORDOVA #### [facility] [address] [place] [address] Geraldo Kandy LACTATE/LACTIC ACIDon 2019 Lactate [Moles/Vol] 1.1 mmol/L Normal 0.7-2.0 [facility] Comment on above: Performed By: #### H GB #### [facility] [address] [place] [address] Geraldo Kandy PROCALCITONINon 01-02-2020 PCT header 1 SEE BELOW Normal [facility] Comment on above: Result Comment: PCT <0.5ng/mL: Systemic infection (sepsis) is not likely, local bacterial infection possible, low risk for progression to severe systemic infection (severe sepsis) Performed By: #### P RL #### [facility] [address] [place] [address] Geraldo Kandy PCT header 2 SEE BELOW Normal [facility] Comment on above: Result Comment: PCT >/=0.5 and <2 ng/mL: Systemic infection (sepsis) is possible, moderate risk for progression to severe systemic infection (severe sepsis) Performed By: #### P RL #### [facility] [address] [place] [address] Geraldobhumi Gaitan PCT header 3 SEE BELOW Normal [facility] Comment on above: Result Comment: PCT >/=2.0 and <10 ng/mL: Systemic infection (sepsis) is likely, unless other causes are known, high risk for progession to severe systemic infection(severe sepsis) Performed By: #### P RL #### [facility] [address] [place] [address] Geraldobhumi Gaitan PCT header 4 SEE BELOW Normal [facility] Comment on above: Result Comment: PCT >/= 10 ng/mL: Important systemic inflammatory response almost exclusively due to severe bacterial sepsis or septic shock, high likelihood of severe sepsis or septic shock Performed By: #### P RL #### [facility] [address] [place] [address] Geraldo Gaitan PROCALCITONIN 0.62 ng/mL Critically high 0.00-0.50 [facility] Comment on above: Performed By: #### P RL #### [facility] [address] [place] [address] Geraldo Gaitan PROF 14(COMP METB)on 020 Albumin [Mass/Vol] 3.6 g/dL Normal 3.5-5.0 [facility] Comment on above: Performed By: #### C MP #### [facility] Laboratory [address] [place] [address] Geraldo Gaitan Albumin/Globulin [Mass ratio] 0.8 {ratio} Normal [facility] Comment on above: Performed By: #### C MP #### [facility] [address] [place] [address] Geraldo Gaitan ALP [Catalytic activity/Vol] 95 U/L Normal 38-126 [facility] Comment on above: Performed By: #### C MP #### [facility] [address] [place] [address] Geraldo Kandy ALT [Catalytic activity/Vol] 32 U/L Normal 9-52 [facility] Comment on above: Performed By: #### C MP #### [facility] Laboratory [address] [place], [place] [id number] Geraldo Kandy Anion gap [Moles/Vol] 13.8 mmol/L Normal [facility] Comment on above: Performed By: #### C MP #### [facility] [address] [address] Geraldo Kandy AST [Catalytic activity/Vol] 42 U/L Critically high 14-36 [facility] Comment on above: Performed By: #### C MP #### [facility] [address] [place] [address] Geraldo Kandy Bilirubin [Mass/Vol] 0.5 mg/dL Normal 0.2-1.3 [facility] Comment on above: Performed By: #### C MP #### [facility] [address] [place] [address] Geraldo Kandy Calcium [Mass/Vol] 9.4 mg/dL Normal 8.4-10.2 [facility] Comment on above: Performed By: #### C MP #### [facility] [address] [place], [place] [id number] Geraldo Kandy Chloride [Moles/Vol] 100 mmol/L Normal 98-107 [facility] Comment on above: Performed By: #### C MP #### [facility] [address] [place], [place] [id number] Geraldo Kandy CO2 [Moles/Vol] 24.6 mmol/L Normal 22.0-30.0 [facility] Comment on above: Performed By: #### C MP #### [facility] [address] [place], [place] [id number] Geraldo Kandy Creatinine [Mass/Vol] 1.36 mg/dL Critically high 0.52-1.04 [facility] Comment on above: Performed By: #### C MP #### [facility] [address] [place], [place] [id number] Geraldo Kandy EGFR-AF CHADIAN 46 mL/min/1.73m2 Critically low >=60 [facility] Comment on above: Performed By: #### C MP #### [facility] [address] [id number] Geraldo Kandy EGFR-NON AF CHADIAN 38 mL/min/1.73m2 Critically low >=60 [facility] Comment on above: Performed By: #### C MP #### [facility] [address] [id number] Geraldo Kandy Globulin (S) [Mass/Vol] 4.5 g/dL Normal [facility] Comment on above: Performed By: #### C MP #### [facility] [address] [id number] Geraldo Kandy Glucose [Mass/Vol] 120 mg/dL Critically high 74-106 [facility] Comment on above: Performed By: #### C MP #### [facility] [address] [place], [place] [id number] Geraldo Kandy Potassium [Moles/Vol] 3.4 mmol/L Normal 3.4-5.0 [facility] Comment on above: Performed By: #### C MP #### [facility] [address] [place], [place] [id number] Geraldo Kandy Protein [Mass/Vol] 8.1 g/dL Normal 6.1-8.2 [facility] Comment on above: Performed By: #### C MP #### [facility] [address] [id number] Geraldo Kandy Sodium [Moles/Vol] 135 mmol/L Critically low 137-145 [facility] Comment on above: Performed By: #### C MP #### [facility] [address] [id number] Geraldo Kandy Urea nitrogen [Mass/Vol] 22.0 mg/dL Critically high 7.0-17.0 [facility] Comment on above: Performed By: #### C MP #### [facility] [address] [id number] Geraldo Kandy Urea nitrogen/Creatinine [Mass ratio] 16.2 mg/mg Normal [facility] Comment on above: Performed By: #### C MP #### [facility] [address] [place] [address] Geraldo Kandy RESPIRATORY PANEL PLUSon Adenovirus Not detected Normal NOT DETECTED [facility] Comment on above: Performed By: #### R SPLUS #### [facility] Laboratory [address] [place] [address] Geraldo Kandy B. Parapertusis Not detected Normal NOT DETECTED [facility] Comment on above: Performed By: #### R SPLUS #### [facility] [address] [place] [address] Geraldo Kandy B. Pertussis Not detected Normal NOT DETECTED [facility] Comment on above: Performed By: #### R SPLUS #### [facility] [address] [place] [address] Geraldo Kandy Chlamydia Pneumoniae Not detected Normal NOT DETECTED [facility] Comment on above: Performed By: #### R SPLUS #### [facility] [address] [place] [address] Geraldo Kandy Coronavirus 229E Not detected Normal NOT DETECTED [facility] Comment on above: Performed By: #### R SPLUS #### [facility] [address] [place] [address] Geraldo Kandy Coronavirus HKU1 Not detected Normal NOT DETECTED [facility] Comment on above: Performed By: #### R SPLUS #### [facility] [address] [place] [address] Geraldo Kandy Coronavirus NL63 Not detected Normal NOT DETECTED [facility] Comment on above: Performed By: #### R SPLUS #### [facility] [address] [place] [address] Geraldo Kandy Coronavirus OC43 Not detected Normal NOT DETECTED [facility] Comment on above: Performed By: #### R SPLUS #### [facility] [address] [place] [address] Geraldo Kandy Influenza A H1 2009 Not detected Normal NOT DETECTED [facility] Comment on above: Performed By: #### R SPLUS #### [facility] [address] [place] [address] Geraldo Kandy Influenza B Not detected Normal NOT DETECTED [facility] Comment on above: Performed By: #### R SPLUS #### [facility] [address] [place] [address] Geraldo Kandy Metapneumovirus Not detected Normal NOT DETECTED [facility] Comment on above: Performed By: #### R SPLUS #### [facility] [address] [place] [address] Geralod Kandy Mycoplas. Pneumoniae Not detected Normal NOT DETECTED [facility] Comment on above: Performed By: #### R SPLUS #### [facility] [address] [place] [address] Geraldo Kandy Parainfluenza 1 Not detected Normal NOT DETECTED [facility] Comment on above: Performed By: #### R SPLUS #### [facility] [address] [place] [address] Geraldo Kandy Parainfluenza 2 Not detected Normal NOT DETECTED [facility] Comment on above: Performed By: #### R SPLUS #### [facility] [address] [place] [address] Geraldo Kandy Parainfluenza 3 Not detected Normal NOT DETECTED [facility] Comment on above: Performed By: #### R SPLUS #### [facility] [address] [place] [address] Geraldo Kandy Parainfluenza 4 Not detected Normal NOT DETECTED [facility] Comment on above: Performed By: #### R SPLUS #### [facility] [address] [place] [address] Geraldo Kandy Rhino/Enterovirus Not detected Normal NOT DETECTED [facility] Comment on above: Performed By: #### R SPLUS #### [facility] [address] [place] [address] Geraldo Kandy RP2 Header 1 RESPIRATORY PANEL: VIRUSES Normal [facility] Comment on above: Performed By: #### R SPLUS #### [facility] [address] [place] [address] Geraldo Kandy RP2 Header 2 RESPIRATORY PANEL: BACTERIA Normal [facility] Comment on above: Performed By: #### R SPLUS #### [facility] [address] [place] [address] Geraldo Gaitan RP2 Header 4 EUA SEE BELOW Normal [facility] Comment on above: Result Comment: This test is not yet approved or cleared by the [place] FDA. When there are no FDA-approved or cleared tests available, and other criteria are met, FDA can make tests available under an emergency access mechanism called an Emergency Use Authorization (EUA). The EUA for this test is supported by the [employer] of Health and Human Service?s (HHS?s) declaration [...] By: #### R SPLUS #### [facility] [address] [place] [address] Geraldo Gaitan RSV Not detected Normal NOT DETECTED [facility] Comment on above: Performed By: #### R SPLUS #### [facility] [address] [place] [address] Geraldo Gaitan SARS-CoV-2 (COVID-19) RNA VIVIENNE+probe Ql (Unsp spec) Not detected Normal NOT DETECTED [facility] Comment on above: Performed By: #### R SPLUS #### [facility] [address] [place] [address] Geraldo Gaitan URINE MICROSCOPIC ONLYon BACTERIA MODERATE Normal NONE SEEN [facility] Comment on above: Performed By: #### MELODY CORDOVA #### [facility] [address] [place] [address] Geraldo Gaitan Bacteria identified Cx Nom (U) INDICATED Normal [facility] Comment on above: Performed By: #### E MELODY SHAH #### [facility] [address] [place] [address] Geraldobhumi Charlesen CAST NONE SEEN Normal NONE SEEN [facility] Comment on above: Performed By: #### KANDICE CORDOVARO #### [facility] [address], [place] [address] Geraldo Kandy Crystals LM Nom (Urine sed) NONE SEEN Normal NONE SEEN [facility] Comment on above: Performed By: #### KANDICE CORDOVARO #### [facility] [address] [id number] Geraldo Kandy Epithelial cells LM Ql (Urine sed) RARE Normal [facility] Comment on above: Performed By: #### KANDICE CORDOVARO #### [facility] [address], [place] [address] Geraldo Kandy MUCOUS NONE SEEN Normal NONE SEEN [facility] Comment on above: Performed By: #### KANDICE CORDOVARO #### [facility] [address] [place], [place] [id number] Geraldo Kandy RBC 0-2 Normal 0-2 [facility] Comment on above: Performed By: #### KANDICE CORDOVARO #### [facility] [address] [place], [place] [id number] Geraldo Kandy WBC 5-10 Normal NONE SEEN [facility] Comment on above: Performed By: #### KANDIEC CORDOVARO #### [facility] [address] [place], [place] [id number] Geraldo Kandy XR CHEST 1 Von 01-02-2020 XR CHEST [...] REMY NESS Date: 2020-01-02 18:52 Normal [facility] Encounters Encounter Date Encounter Type Care Provider Facility Start: 10-04-2023 End: 10-04-2023 ambulatory ALEXANDER A HACKENBURG [facility] Start: 09-19-2023 End: 09-19-2023 ambulatory ALEXANDER A HACKENBURG Not Available Start: 09-19-2023 End: 09-19-2023 ambulatory ALEXANDER A HASABINAENBURG Not Available Start: 09-05-2023 End: 09-05-2023 ambulatory Andrius Snehal Quintanillaitis Facility:[facility] Start: 08-22-2023 End: 08-22-2023 ambulatory Andnaina Quintanillaitis Facility:[facility] Start: 07-25-2023 End: 07-25-2023 ambulatory Andlindaus Snehal Quintanillaitis Facility:[facility] Start: 07-11-2023 End: 07-11-2023 ambulatory Andrius Tawnyaautanthony Quintanillaitis Facility:[facility] Start: 06-17-2023 End: 06-17-2023 ambulatory ALEXANDER APARICIO Not Available Start: 04-27-2023 Telephone encounter Marisa sierra DO Work Phone: [facility] 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 Start: 04-21-2023 Refill Alexander Deantej marcum DEPENDENCY DIRECTOR Work Phone: [facility] Comment on above: Essential hypertensi on (CMS/HCC) Start: 04-18-2023 End: 04-18-2023 ambulatory ALEXANDER BETANCOURTENBURG Not Available Start: 03-08-2023 End: 03-08-2023 ambulatory MARISA Plascencia PATRICIA Not Available Start: 03-01-2023 End: 03-01-2023 ambulatory MARISA A PATRICIA Not Available Start: 02-22-2023 End: 02-22-2023 ambulatory MARISA A PATRICIA Not Available Start: 02-08-2023 End: 02-08-2023 ambulatory MARISA A PATRICIA Not Available Start: 02-01-2023 End: 02-01-2023 ambulatory MARISA A PATRICIA Not Available Start: 01-28-2023 End: 01-28-2023 ambulatory SHARI MCKEON Not Available Start: 07-26-2022 End: 07-26-2022 ambulatory SHARI MCKEON Facility:[facility] Start: 06-29-2022 End: 06-30-2022 ambulatory SHARI MCKEON Facility:[facility] Start: 10-24-2020 End: 10-25-[address] SHARI MCKEON Facility:[facility] Start: 09-30-2020 End: 10-01-[address] SHARI MCKEON Facility:[facility] Start: 02-01-2020 End: 02-01-[address] CARLOS EDUARDO MENENDEZ Facility:[facility] Start: 01-30-2020 Encounter for preprocedural laboratory examination DR CARLOS EDUARDO MENENDEZ [facility] Start: 01-26-2020 End: 01-27-[address] SHARI [...] procedure 08/02/2023 9:00 AM EDT Office Visit [facility] [address] [facility] [address] [place] [id number] Marisa Ramos, [address] [facility] [address] [place] [address] [facility] Start: 05-06-2023 Medicare Annual Wellness (AWV) Medicare Annual Wellness (AWV) [facility] Healthcare Immunizations Immunization Date Immunization Notes Care Provider Fa cili 12-23-2022 Influenza, High-dose Seasonal, Quadrivalent, Preservative Free Alexander Hackenburg DEPENDENCY DIRECTOR Work Phone: [facility] 12-23-2022 SARS-COV-2 (COVID-19 ) vaccine, mRNA, spike protein, LNP, PF, 50 mcg/0.5 mL Alexander Hackenburg DEPENDENCY DIRECTOR Work Phone: [facility] 12-01-2021 Influenza, Seasonal, Quadrivalent, Adjuvanted Alexander Hackenburg DEPENDENCY DIRECTOR Work Phone: [facility] 12-01-2021 Seasonal, trivalent, recombinant, injectable influenza vaccine, preservative free Alexander Hackenburg DEPENDENCY DIRECTOR Work Phone: [facility] 12-16-2020 Influenza, High-dose Seasonal, Quadrivalent, Preservative Free Alexander Hackenburg DEPENDENCY DIRECTOR Work Phone: [facility] 02-14-2020 zoster vaccine recombinant Alexander Hackenburg DEPENDENCY DIRECTOR Work Phone: [facility] 12-07-2019 influenza, seasonal, injectable Alexander Hackenburg DEPENDENCY DIRECTOR Work Phone: [facility] 11-13-2019 influenza, injectabl e, quadrivalent, preservative free Alexander Hackenburg DEPENDENCY DIRECTOR Work Phone: [facility] 11-13-2019 zoster vaccine recombinant Alexander Hackenburg DEPENDENCY DIRECTOR Work Phone: [facility] 11-12-2019 zoster vaccine recombinant Alexander Hackenburg DEPENDENCY DIRECTOR Work Phone: [facility] 11-29-2018 Seasonal trivalent influenza vaccine, adjuvanted, preservative free Alexander Hackenburg DEPENDENCY DIRECTOR Work Phone: [facility] 11-30-2017 influenza, high dose seasonal, preservative-free Alexander Hackenburg DEPENDENCY DIRECTOR Work Phone: [facility] 11-24-2017 Seasonal trivalent influenza vaccine, adjuvanted, preservative free Alexander Hackenburg DEPENDENCY DIRECTOR Work Phone: [facility] 11-18-2016 influenza, high dose seasonal, preservative-free Alexander Hackenburg DEPENDENCY DIRECTOR Work Phone: [facility] Work Phone: 11-18-2016 pneumococcal conjuga te vaccine, 13 valent Alexander Hackenburg DEPENDENCY DIRECTOR Work Phone: [facility] 11-18-2016 Seasonal trivalent influenza vaccine, adjuvanted, preservative free Alexander Hackenburg DEPENDENCY DIRECTOR Work Phone: [facility] 11-18-2016 tetanus toxoid, redu greg diphtheria toxoid, and acellular pertussis vaccine, adsorbed Alexander Hackenburg DEPENDENCY DIRECTOR Work Phone: [facility] 11-12-2016 pneumococcal polysaccharide vaccine, 23 valent Alexander Hackenburg DEPENDENCY DIRECTOR Work Phone: [facility] 12-11-2015 influenza, high dose seasonal, preservative-free Alexander Hackenburg DEPENDENCY DIRECTOR Work Phone: [facility] 12-30-2014 influenza virus vaccine, whole virus Alexander Hackenburg DEPENDENCY DIRECTOR Work Phone: [facility] 12-30-2014 influenza, injectabl e, quadrivalent, preservative free Alexander Hackenburg DEPENDENCY DIRECTOR Work Phone: [facility] 05-10-2014 pneumococcal conjuga te vaccine, 13 valent Alexander Hackenburg DEPENDENCY DIRECTOR Work Phone: [facility] 12-13-2013 influenza virus vaccine, whole virus Alexander Hackenburg DEPENDENCY DIRECTOR Work Phone: [facility] 01-12-2013 pneumococcal Conjuga te, unspecified formulation Alexander Hackenburg DEPENDENCY DIRECTOR Work Phone: [facility] 01-12-2013 seasonal influenza, intradermal, preservative free Alexander Hackenburg DEPENDENCY DIRECTOR Work Phone: [facility] 12-27-2012 pneumococcal polysaccharide vaccine, 23 valent Alexander Hackenburg DEPENDENCY DIRECTOR Work Phone: [facility] Payers Date Payer Category Payer Unknown 2017 Medicare [employer]AGE [facility] MEDICARE ADVANTAGE [id number] 2017-Present [address] [place] [address] [id number] 1959 Unknown [id number] 1944 Unknown [id number] 2.16.840.1.365537.3.579.2.647 1944 Unknown [id number] 2.16.840.1.682925.3.579.2.593 1944 Unknown [id number] 2.16.840.1.965688.3.579.2.593 1944 Unknown [id number] 2.16.840.1.458564.3.579.2.593 1944 Unknown [id number] 2.16.840.1.449711.3.579.2.593 1944 Unknown [id number] 2.16.840.1.026946.3.579.2.593 1944 Unknown [id number] 2.16.840.1.238771.3.579.2.718 1944 Unknown [id number] 2.16.840.1.257682.3.579.2.718 1944 Unknown [id number] 2.16.840.1.027376.3.579.2.196 1944 Unknown [id number] 2.16.840.1.690642.3.579.2.196 1944 Unknown [id number] 2.16.840.1.740614.3.579.2.196 1944 Unknown [id number] 2.16.840.1.928225.3.579.2.196 1944 Unknown [id number] 2.16.840.1.920501.3.579.2.125 9 1944 Unknown [id number] 2.16.840.1.295837.3.579.2.125 9 1944 Unknown [id number] 2.16.840.1.986551.3.579.2.125 9 1944 Unknown [id number] 2.16.840.1.822741.3.579.2.125 9 1944 Unknown [id number] 2.16.840.1.213770.3.579.2.125 9 1944 Unknown [id number] 2.16.840.1.357169.3.579.2.125 9 1944 Unknown [id number] 2.16.840.1.132983.3.579.2.125 9 1944 Unknown [id number] 2.16.840.1.919425.3.579.2.125 9 1944 Unknown [id number] 2.16.840.1.499920.3.579.2.125 9 1944 Unknown [id number] 2.16.840.1.294415.3.579.2.125 9 1944 Unknown [id number] 2.16.840.1.605054.3.579.2.125 9 1944 Unknown [id number] 2.16.840.1.130631.3.579.2.125 9 1944 Unknown [id number] 2.16.840.1.631401.3.579.2.125 9 1944 Unknown [id number] 2.16.840.1.618718.3.579.2.128 6 Social History Date Type Detail Facility Start: 09-17-2022 Tobacco smoking stat [facility] Never smoked tobacco [facility] Start: 09-17-2022 Tobacco use and exposure Smokeless t obacco non-user [facility] Start: 04-18-2023 Alcohol intake Current drinke r of alcohol (finding) [facility] Start: 10-15-2022 End: 04-18-2023 Alcohol intake [facility] Start: 10-15-2022 End: 04-18-2023 Tobacco use panel [facility] Start: 01-06-2023 Alcohol Comment Caffeine intak e: 1-2 cups per day [facility] Start: 1945 Sex Assigned At Not on file [facility] Telephone encounter Note 04-27-2023 Telephone Encounter - Pati Chicho - 04/27/2023 1:09 PM EST Note Date & Type Note Facility 04-27-2023 Telephone encount er Note Called pt and informed [facility] Note 04-27-2023 Telephone Encounter - Pati Chicho - 04/27/2023 1:09 PM ESTTelephone Encounter - [...] [place]. Allergies: NKDA . Her call back [phone] documented in this encounter [facility] Telephone encounter Note 04-27-2023 Telephone Encounter - Pati Chicho - 04/27/2023 12:51 PM EST Note Date & Type Note Facility 04-27-2023 Telephone encount er Note Pt called stated she had LT TSA 07/26/22 and is getting a cavity filled and needs antibiotic called into [facility] in [place]. Allergies: NKDA . Her call back [phone] [facility] Telephone encounter Note 04-21-2023 Telephone [...] Date & Type Note Facility 07-27-2022 Note [id number] [facility] Clinical Note 07-26-2022 Note Date & Type Note Facility 07-26-2022 Note [facility] SURGERY Clinical Discharge Summary PERSON INFORMATION Name TRACI BARRAZA Age 77 Years 1945 Sex FEMALE Language Iraqi PCP SHARI MCKEON Marital Status Med Service Ambulatory Surgery Acct# Arrival 07/26/2022 05:52:10 Visit Reason SURGERY - LEFT REVERSE TOTAL SHOULDER - ARTHREX Acuity LOS 053 02:57 Address: [address] [place] [address] [place] [address] Comment: PROVIDER INFORMATION VITALS INFORMATION Vital Sign [...] Restrictions: DISCHARGE INFORMATION Discharge Disposition: Discharge Location: [facility] REASON INCOMPLETE INFORMATION (more content not included)... [facility] Clinical Note 02-01-2020 Note Date & [...] position. She was sedated by the nurse welcome hostess. Bite block was placed in her mouth. [...] patient tolerated the procedure without any difficulties. [facility] SIGNED AND APPROVED BY: DR CARLOS EDUARDO MENENDEZ . 02/07/2020 09:15:00 [facility] Evaluation note Note Date & [...] section and content) DATE CREATED AUTHOR 05/27/2018 [facility] DATE CREATED AUTHOR AUTHOR'S ORGANIZ ATION 11/06/2020 [facility] DATE CREATED AUTHOR AUTHOR'S ORGANIZ ATION 05/12/2022 [facility] dical Specialist DATE CREATED AUTHOR AUTHOR'S ORGANIZ ATION 07/28/2022 [facility] DATE CREATED AUTHOR AUTHOR'S ORGANIZ ATION 09/07/2023 [facility] DATE CREATED AUTHOR AUTHOR'S ORGANIZ ATION 09/26/2023 [facility] dical Specialists EPIC DATE CREATED AUTHOR AUTHOR'S ORGANIZ ATION 10/06/2023 [facility] Reason for Visit (unrecogniz ed section and content) Reason Comments Med Refill Reason 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 Care Teams (unrecognized sec tion and content) Tablet Tester Relationship Specialty Start Date End Date Alexander Aparicio NP [address] [place] [address] PCP - Cristobal FIGUEROA 03/21/21 Shari Mckeon MD [address] [place] [address] PCP - General Family Medicine 07/26/22 Tablet Tester Relationship Specialty Start Date End Date Alessandra Alexander A, NP [address] [place], [place] [id number] PCP - Cristobal FIGUEROA 03/21/21 Shari Mckeon MD [address] [place], [place] [id number] PCP - General Family Medicine 07/26/22 FOR [...] BE BASED ON THE PRIMARY CLINICAL RECORDS. [facility] [employer] [facility]. provides no warranty or guarantee of the accuracy or completeness of information in this document.
--- NOTE | 2023-11-28 14:16 | P.CN_ITS ---
Consult Note: HPI Data of Consult Patient: known to practice within the last 3 years Consult date: 11/28/23 Requesting Physician: Kei Espana MD Primary Care Provider: KELLY MCKEON Consult Narrative Reason for consult: low back pain Narrative: 78yof who presents for assessment. notes low back pain that is higher than where her previous ablation was. notes significant relief >80% with rfa at bilateral l4-5, l5-s1. now points to pain slightly higher. imaging reviewed, which shows multilevel facet arthropathy at L1-2 and L2-3. this is area of most significant curvature from scoliosis. has continued to engage in a series of provider directed home exercises >6 weeks, without lasting benefit. uses otc pain meds as needed. denies adverse med side effects. cc:: CC: Kei Espana MD Review of Systems ROS Status of ROS 10 or more systems reviewed and unremark able except as noted in history and below PFSH PFSH Medical History Osteoarthritis ?M19.90 - Unspecified osteoarthritis, unspecified site (ICD-10) Heart murmur ?R01.1 - Cardiac murmur, unspecified (ICD-10) Surgical History History of total shoulder replacement ?Z96.619 - Presence of unspecified artificial shoulder joint (ICD-10) History of total knee arthroplasty ?Z96.659 - Presence of unspecified artificial knee joint (ICD-10) History of carpal tunnel release ?Z98.890 - Other specified postprocedural states (ICD-10) Meds Home Medications and Allergies Home Medications ?Medication ?Instructions ?Recorded ?Confirmed ?Type calcium carbonate 600 mg-vitamin 1 tab PO BID 07/11/23 09/05/23 History D3 5 mcg (200 unit) tablet (Calcium 600 + D(3)) losartan 100 mg tablet 100 mg PO DAILY 07/11/23 09/05/23 History magnesium 250 mg tablet 250 mg PO DAILY 07/11/23 09/05/23 History multivitamin-ferrous 1 tab PO DAILY 07/11/23 09/05/23 History fumarate-folic acid 18 mg-400 mcg tablet (Centrum Women) trazodone 50 mg tablet 50 mg PO DAILY 07/11/23 09/05/23 History vitamin B complex 1 cap PO DAILY 07/11/23 09/05/23 History fluticasone 250 mcg-salmeterol 50 inhalation 08/22/23 History mcg/dose blistr powdr for inhalation acetaminophen 300 mg-codeine 30 mg 1 tab PO BID PRN pain #60 tabs 11/28/23 Rx tablet Allergies Allergy/AdvReac Type Severity Reaction Status Date / Time No Known Drug Allergies Allergy Verified 09/05/23 10:02 Exam Narrative Exam Narrative: Psych-alert and oriented x 3. Attentive and appropriate, constitutionally normal, displays normal mood and affect per situation.? There are no obvious deficits in memory, reasoning, or intellect.? Skin-no obvious rashes, bruising, erythema noted to the patient's area of pain. Extremities- extremities are warm with minimal edema and palpable pulses. Lumbar-no significant tenderness to palpation noted in the lumbar spine and paraspinal musculature.? Pain is elicited with extension, and lateral rotation of the lumbar spine. Range of motion is slightly diminished with these motions due to pain. Facet loading maneuvers are positive bilaterally and do appear to be concordant with the patient's normal complaints of pain.? Coordination remains intact.? Gait remains non-antalgic. Assessment and Plan Assessment and Plan (1) Lumbar spondylosis: Plan 78yof who presents for assessment. failed conservative measures, as noted. imaging reviewed, as noted. suspect that higher up pain is due to facet arthropathy in upper lumbar spine, where most significant scoliotic curvature is present. given symptoms and imaging findings, prudent to attempt diagnostic bilateral l1-2, l2-3 medial branch blocks under fluoroscopic guidance with intention of proceeding to radiofrequency ablation. she is in agreement. meds reviewed, pdmp reviewed. will trial t#3 bid prn. follow up after procedure.
== END 2023-11-28 13:19 | disposition home or self-care (01) ==
PROVIDERS: PCP Family Medicine; Visit Provider Anesthesiology
DX: M47.816 Spondylosis without myelopathy or radiculopathy, lumbar region (principal)
CPT/HCPCS: G0463

== ENCOUNTER 2023-12-12 06:44 | Day surgery (SDC) | payer MEDICARE, SELFPAY ==
--- OUTSIDE RECORDS SUMMARY | 2023-12-12 06:48 | XMS_ITS | CCD ---
Author Organization [facility] Care Team Providers Care Hand Endband Cutter Name Role Phone PHYSICIAN, DEFAULT Admitting Unavailable [...] able Marisa Ramos Attending Unavail able Alessandra SPRING TESTER, Alexander Plascencia Unavailable Shari Mckeon MD Primary Care Provider ALEXANDER APARICIO Attending Unavailab le SHARI MCKEON Attending Unavailable SHARI MCKEON Referring Unavailable PATRICIAMARISA Attending Unavailable MAYWOODMARISA Referring Unavailable [facility]ending [facility], MARISA Plascencia Attending Unavailable [facility], ALEXANDER Plascencia Attending Unavailab [facility], ALEXANDER Plascencia Referring Unavailab [facility], MARISA Plascencia Attending Unavailable MAYWOOD, MARISA Plascencia Referring Unavailable MAYWOOD, MARISA Plascencia Attending Unavailable STEVEALEXANDER OHFF Referring [facility] SHARI Carvalho Primary Care Unavailable Gieditis , Kei Brian Attending Unavailable Giedraitis , Andnaina Brian Attending Unavailable Giedraitis , Andrius Snehal Attending Unavailable Giedraitis , Andrius Snehal Attending Unavailable Giedraitis , Andrius Snehal Attending Unavailable Allergies Allergy Classification Reported Allergen(s) Allergy Type Date of Onset Reaction(s) Facility (2 sources) Alendronate; Translations: [Fosamax] Drug Allergy The [facility] Repository (2 sources) Alendronate Drug Allergy 09-10-2020 [...] 01-30-2020 Episodic Other aftercare (1 source) Other extermination inspector (current) drug therapy; Translations: [OTH CONDUCTOR FREIGHT CURRENT DRUG THERAPY] Onset: 02-14-2020 Episodic Other aftercare (1 source) detention (current) use of aspirin; Translations: [CONDUCTOR FREIGHT CURRENT USE OF ASPIRIN] Onset: 01-04-2020 Episodic [...] Not Available Consent Formson 07-27-2022 Consent Forms [id number] Discharge Instructions [id number]#1.00[facility] MAGR Intraoperative Recordon 07-27-2022 MAGR Intraoperative Record MAGR Intra-Op Record Summary Primary Physician: Marisa Ramos DO Finalized Date/Time: 07/27/22 09:45:04 Pt. Name: RADHA CUADRA/Sex: 1945 FEMALE Med Rec #: [id number] Physician: Marisa Ramos DO Financial #: [id number] Pt. Type: D Room/Bed: / Admit/Disch: 07/26/22 [...] Role Performed Surgeon - Primary Anesthesiologist of Paper Finisher Record Time In 07/26/22 07:39:00 07/26/22 07:39:00 07/26/22 07:39:00 Time Out 07/26/22 09:49:00 07/26/22 09:49:00 07/26/22 09:49:00 Procedure Arthroplasty Shoulder Arthroplasty Shoulder Arthroplasty Shoulder Total Reverse(Left) Total Reverse(Left) Total Reverse(Left) Last Modified By: Mode RN, Jania Coello RN, Jania Coello RN, Jania Plascencia 07/26/22 09:49:54 07/26/22 09:49:54 07/26/22 09:49:54 Entry 4 Entry 5 Entry 6 Case Attendee Fahad BUILDING PRESSURE WASHER, Paulina BUILDING PRESSURE WASHER Lisa Antony CST BUILDING PRESSURE WASHER/CSFA, ZOE Worthy BUILDING PRESSURE WASHER Role Performed Scrub Personnel Scrub Personnel Supervisor Slate Splitting Time In 07/26/22 07:39:00 07/26/22 07:39:00 07/26/22 [...] to chemical sources (more content not included)... [facility] Outside Recordson 07-27-2022 Outside Records [id number]#[facility] Provider Orderson 07-27-2022 Provider Orders [id number]#1.00[facility] Telemetry Stripson 3 Telemetry Strips [id number]#1.00[facility] Anesthesia Noteon 07-26-2022 Anesthesia Note Patient: RADHA CUADRA MRN: Age: 77 years Sex: FEMALE : 1945 [...] 07/26/2022 11:51 EDT] Remy Da Silva MD [facility] Anesthesia Note Patient: RADHA CUADRA MRN: Age: 77 years Sex: FEMALE : 1945 [...] obstructive pulmonary disease (COPD) / SNOMED CT 28542598 / Confirmed Heart murmur / SNOMED CT 078701252 / Confirmed Hyperlipidemia / SNOMED CT 95464106 / Confirmed HTN (hypertension) / SNOMED CT 5690037436 / Confirmed Histories Family History: COPD Mother Father Procedure history: Arthroplasty of left knee (2835584466). Arthroplasty of right knee (8742120846). Carpal tunnel release (993433595). Comments: 06/29/2022 13:15 Dorota De Leon RN bilat Colonoscopy (646660947). EGD - Esophagogastroduodenoscopy (2770651112). Disorder of rotator cuff (2728184058). Comments: 06/29/2022 13:14 Dorota De Leon RN [...] Oriented. Review / Management Laboratory Results Plan [place] [employer] Anesthesiologists#(ASA) physical status classification: Class [...] 07/26/2022 08:23 EDT] Remy Da Silva MD [facility] Inpatient Patient Summaryon 07-26-2022 [place] [address] Patient Discharge Instructions Name: RADHA CUADRA : 1945 Patient Address: [address] [place] [address] Primary Care Provider: Name: SHARI MCKEON After you are discharged if you find you have any questions, please, call [phone] ext [phone] to speak to a nurse. Discharge Diagnosis: [...] alcohol and/or drug addiction problems; contact the [facility] 04/10 Crisis Hotline -Text 4HPZE to 631075. If you received any narcotics, sedation, or [...] business decisions or sign any legal documents [facility] would like to thank you for allowing us to assist you with your healthcare needs. The following includes patient education materials and information regarding your injury/illness. RADHA CUADRA has been given the following list of follow-up instructions, prescriptions, and patient education materials: Follow-up Instructions With: Address: When: Marisa Ramos [address] [place] [address], [address] [place] [address] Business (1) 08/03/2022 11:00 AM Medications During [...] fingers frequently (more content not included)... Normal [facility] MAGR Intraoperative Recordon 07-26-2022 MAGR Intraoperative Record MAGR Intra-Op Record Summary Primary Physician: Finalized Date/Time: 07/26/22 07:42:32 Pt. Name: LIV CUADRAJANELLE Dangelo/Sex: 1945 FEMALE Med Rec #: [id number] Physician: Marisa Ramos DO Financial #: [id number] Pt. Type: D Room/Bed: / Admit/Disch: 07/26/22 [...] Warga, Laura RN Role Performed Anesthesiologist of Paper Finisher Paper Finisher Record Time In 07/26/22 07:13:00 07/26/22 07:13:00 07/26/22 07:13:00 Time Out 07/26/22 07:38:00 07/26/22 07:38:00 07/26/22 07:38:00 Procedure Interscalene Block(Left) Interscalene Block(Left) Interscalene Block(Left) Last Modified By: Kimberley Le RN, Margaret RN Klaehn, Margaret RN 07/26/22 07:39:31 07/26/22 07:39:31 07/26/22 07:39:31 Entry 4 Case Attendee Amy Bates RN Role Performed Paper Finisher Time In 07/26/22 07:13:00 Time Out 07/26/22 [...] Post-op Destinat (more content not included)... [facility] MAGR PACU Record MAGR PACU Record [facility] Physician: Marisa Ramos DO Finalized Date/Time: 07/26/22 10:38:28 Pt. Name: CHRISTI RADHAJANELLE Dangelo/Sex: 1945 FEMALE Med Rec #: [id number] Physician: Marisa Ramos DO Financial #: [id number] Pt. Type: D Room/Bed: / Admit/Disch: 07/26/22 05:52:10 - Institution: PACU Case Times MAGR Entry 1 In PACU I 07/26/22 09:51:00 Discharge from PACU 07/26/22 10:35:00 I Last Modified By: Warner Bolton RN 07/26/22 10:38:23 Finalized By: Warner Bolton RN Document Signatures Signed By: Warner Bolton RN 07/26/22 10:38 [facility] MAGR Postoperative Recordon 07-26-2022 MAGR Postoperative Record MAGR Phase II Record Summary Primary Physician: Marisa Ramos DO Finalized Date/Time: 07/26/22 12:01:17 Pt. Name: RADHA CUADRA/Sex: 1945 FEMALE Med Rec #: [id number] Physician: Marisa Ramos DO Financial #: [id number] Pt. Type: D Room/Bed: / Admit/Disch: 07/26/22 [...] Signed By: Annamarie Samuels RN 07/26/22 12:01 [facility] MAGR Preoperative Recordon 0 07-26-2022 MAGR Preoperative Record MAGR Pre-Op Record Summary Primary Physician: Marisa Ramos DO Finalized Date/Time: 07/26/22 07:44:03 Pt. Name: RADHA CUADRA/Sex: 1945 FEMALE Med Rec #: [id number] Physician: Marisa Ramos DO Financial #: [id number] Pt. Type: D Room/Bed: / Admit/Disch: 07/26/22 [...] Preop Departure 07/26/22 07:38:00 Last Modified By: Kimebrley Le RN 07/26/22 07:43:56 Post-Care Text: Patient [...] By: Kimberley Le RN 07/26/22 07:44 Normal [facility] Operative Report - Surgeon/P pablo 07-26-2022 [...] Estimated blood loss: 50 Complications: None Findings: Isml-kk-ynan in the glenohumeral joint Procedure summary: Patient [...] on: 07/26/2022 09:35 EDT] Marisa Ramos DO [facility] Patient Handouton 07-26-[address] [...] or concerns, please call the office at [phone] 7. Follow up as scheduled [facility] XR Shoulder 1 View Lefton XR [...] MD 07/27/22 4:01 pm Technologist: JORDON RUVALCABA [facility] Comment on above: Order Comment: defau lt status post shoulder replacement Progress Note - Nurseon 07-12 Progress Note - Nurse Pre-op call made to pt. Pt states understanding of arrival time of 0600 on 07/26/22 and NPO after MN. [Electronically Signed on: 07/23/2022 09:27 EDT] Sunshine GOLDMANShantel L [Verified on: 07/23/2022 09:27 EDT] Sunshine RNShantel L [facility] Coding Summaryon 07-02-2022 Coding Summary HTMLBase 64 FfpwpirlHJk9qVv+PGhlYWQ+PE1F ZRZyP46yuQGneQ3WO2gOBH3ISMOP VADVQG6SXB6tnAZ4NUhwW7UcctVw TspjhDSwQS35YJa9IMI0uYnmXZby cB7elHHjW5e4CjZtMQ78lN03PUmh TLGwGaF9NiHrjpfpuEXm J7ykEeZizGGmQiy+PHRhYmxlIHdp APKqSTnhNSAaKoPshPjgSJ6jVm0h ZGVyLWNvbGxhcHNlOiBj g5wbUKEeBSgoBG3ejGrsN1NuwBP3 YRPfv4t1Gk47xFW+YFVlPEX1zHax WUggb459YeBji9kxZUS4 mXJeUVvmJXX7T72qi7K7BHSrVAXx UDQ7aPF7fR2fcQmvttsiB2AviLFx IyC0HEO6dJUlwZ0zwErq eivbpJ4cXkv+F96IZI9VDXVLUK1U Yxv7E9ZdWughbTJ+BP38RVRyPZ81 pYQwxVYzz9iquHa6WzWp ICYhZSR0nKksHHlvw5EpUAOrY68x yZBmg8Y9TMNfzWdzzVFwSuLkrUS6 uM6cUNmhfwjxd2uvydjz Rfnid6uade42kU50P29sTXgkJOUo LAU4ZGVvMEAexEyvxd6ioI5vZe0+ BWiqx8mle8xwgJm2TgSz NQVrsyOnjUllHVD0s0BxJn54Q9Mu yGrcg8AnSot6cx89dJThl4T8oYW8 IBfrFTQswE1qMDquRsY1 YVIyZhHtnU41oGVcTCwuEy9svJch cVtwTX7bUMVjwygqABTpxI1mKAUw vWFznDeaFC7nKMCuxujd t366HkStIZR5UIGkrEYkY9VjwF9r UoTmGJDtKGIjO2KvxABxZKksG734 DJjnAjV2FSCeyhFgI4Py VYGjoPavAvY0z0F7Jb1He1Xecwpu KJK1LNmtXRH7KpAhCfCaQpM7K8Gf Uwo6DIFtdBfnEX2kR0Tz VLCamqofzqaeqKT0HOWwUYWfhE52 uXJeLCimEx1ho8U9x030OTXuEZBd oG81Ik9kdVgnKAVqpPXC qI9eipziy6qeupxeCjAeMFKqGUv7 QHn1AJCprYwuVzUoTQQ7WfR6ISZ1 lLIrzY0jgPtrjfbhaM2g Oyc+U61xdZ7rWAM0RZB5pmolFMWn ajCnZG84AH68P5ImEglpfLHfuVH+ ZWLajgPhsYnhHH9cDzGw x2agr4LaJIciV1KgJIFiVDtpRmi9 NVJpZST2gPB4vP0pHPStQZecw0O3 eIN2M0DjhjDoii7ys7og ASEzZLtpB81gmQQcx6L7XEZftPG3 FEDfoHzlUzHidQ91Nuv+PGNvbGdy w6QlMqese4ngr8vxbJb2 NjJoYTCtsyYxlLncMQN4d5HkSj00 Y25fJYpmVUUwNSShXKKlODPtwTzf sp9twH6iMt1+PGNvbCB3 pYF3wR7tZZTpXhQ9BDruD480OwDw rFPrZklbw3oae6fmjQf6UrZoTWBa doRjbWnbHDK5e4FzAk69 C68kTVbiPSNiWFWlQGOxJRUifUkt se1qtY0lUk5+UR6td8rksx03eV03 dHI+XUPbGAR9yZovCUdm OOLbnN3oAQtaLzN8ZPLuAeWknS71 fLUgEBzzPh8xhRrnqApcOH9aMKIg ldaod062DiXks8izFPMq pRXcNXptSGS5U32ni2P7IRAjUBPi XOI1gWI3jE8wpVkqmddjvJZpxImg vcWsqQspPUmgLCsrX307 IHRvcDsnPlBhdGllbnQgTmFtZTo8 O3QsAeg1YEEeiPnjAR0drZOpPVek Xp4joFoygTxuYE8hRYLf cgpnx456DqXse3qeTPAiqSMuLZxy MDR5O93ur5W3FMFhBOHpFCI0pEE6 aT5yeJovzhwwsYXcsDcr yhPusTceICfuMZbgS153NQAolTxj AsYqzuMsZEBhnMV6MV34YY97wVEc v4N1dVA7T7PzRSQydfbj recmpNQ8YEKaYGYbvS15Lf2jdCwd He3yYGZpOBG3FGHjrNNjP6ZzcY3o CnLnUCFtZVJfJ8MszGYl FMwaE806UFpoUgB4RJDiugKgN3Az GTLkdXvcOwU2i4T6Pz8BA5S0RZ70 WM33bQUci0O9fAL1T5Wz LZRnnckyidkgbKW7APCdTVTyeZ74 Oh8zgQfqNi6mAOHbECE6TXBylDWk R5AtkF4zQxDuTVZgAXGh R3ErbIYsCFhtM428NXitEuK6YRHv uuRmX4YwWQLywPjhUlQ3l5M9Of8X UPl1DS30VP94kSDkv3T3 yFG6A2PnTMEixbulwkoizWB5LWMl TVAjrV37Qc9dlQqmAb4qTZQbQLR7 BYSsaSIzV8BkhB9pIcCl QTXfEVAkV8JwsFSpXKwdG578QVty TiL3CVXidlCdD5HeIZBkyJwnZfY2 q9E4Bs3MTXQbDV54TLE2 wQB4FS98KJ72Y4EzZzwosWKpuDF+ PHRhYmxlIHdpZHRoPScxMDAlJyBz mHdoYQ3pWx2wHHLyGIHe mHujzRKoEpOkm5jwSSTdMHopPH1p yWxwC5MyfIS3PJTlt1g9Xw31Y19z S3XbhZH+KPLexWF4dIT4 hD2jTdDsRrT6HSasL712ByFwySUl Ludaf7fyd2hvrYr6GrG4UYKdjfQl vBjlDZU8k9LePd36I00b FMmxUUUuAADkGSXiYFShbBrflw5m xX4bHe8+ILRpyQZ5nGG6wS9mYpRv TtU5XZssP290HtBnkREx Dojxd7cai4dnhWx4EzMyWUHqpsDk zChmDWL0a3RzXe23O9DowGfxu3Qw Bzp4pn77jHVie2Q2aXC2 R9EiSNSvmlxpyIQrlPyzCT5cIUWw rscsGPWywK5qYIErV2r4XbCmSlA1 WTwcZ2FoolX5XKPsnIOi HNexOPH5C32nv9W3NEViABVvWJX3 yEW0aT1dgQuhaawsrKQvtJjsgbNr nLsnJFfyEHggH001VFVz uNqdTGPzkR5yXIQqlUIjzNrxJT7j APBucudpJogLPZXrRCgENIlgLG9Q YPs7N4LjCne2XQEmbWnj GQ7ixRHvKOavNh3lqOplfWnyBA6y LKJdavkwGPZpmB7oUHWayOFoqOkz ZU3bCESbiursm584ErKd WHA1FDBzuMByF8FazK5jAeVmLNXp JLXfD7MesMYxEJunW190RDdqLqZ9 NFZgvhJqJ1JgBGFiyAxa RnM6i6L8Zy9eJj8pMe0wDQX2SZ48 LU61wSPqd0H6uUT9T2UqHEJyqqgk mjjnhRL3ODPgXPZpbE62 bQTlSPtbSv5rf4H1v291FMSwGWYt aT24Pi4xkBobURXdsWFSrP1jqecr k6irxwkxLsScSGQmHPs7 OUl7XUCruPchQzJaMON7HmK0WAO4 eHMzhV5abMgjfvrjzI9qVdo+Nzgg NVCuacG0O1JtCmz1LKHl mNedGT6kvQGoYCfaGu1cqVyqqKpe UJ7kTBLwehaaWSDxgI0iSATmnASi bMgpDC6xFQHdueool471 KmCoSDY8ERCmsWKwP0UkmO9bLkSb UUWeQXQqD3WplGCpBYyjQ578MQwi VrF0DQRldnJjL2ZuVZOi zUslBeR9g7K3Jf5RRK1VCKF0Y3Tl Enx1PKUqgQvoZP5wuZYwOGocBm9y sLismCjsSB5fCUCuupat GQShyB4dZKRvaYQntBxyKS4zAVAe nojmq131EoOfKYU2MUOrdADxK7Um aC2bJvMcOSPfMWIbA8Mb pRZeSMkxP563AVlnIqB3NBPkqmOj K1WrLMEwiRkjQnY5b6Y1Ag7MOSdc dGQ+UL48nt57Q7EaLgtb Ofz1PBXsCSE5kFI5fB7lVCVyGTmu e4Z2rTG9A0TatwRjut8cu5ljUMLq TRvzI29cvRJml3J0ECAk kZG8LDBdlDznDfNjlY53Xqh+PGNv nIceh0SuWdmwi8jsw1raxRk4LxHi SFMnmiPsiJajBVN2y7Dt Ph97G31kSCeoTNVgWIVhBDPrNGSw bWntch8doT2pVl3+LFJvbJW8sAS1 iE8tGxMqHcW4CVtxC112 BhHysLOfFvsym7zul8afoTn4VgZv SIFjarQroRfqKOO9z5TlWh45C7Zb uErga1EkKkh9jg99qJId k0O7qDN2S9XcLYCljcnavHFooTgd VC5nFQRjlblfYVJtiA0rFZVgC2c0 RdMqPkN7FAkyW5LnvoL3 NINvqCYtDVTshDLEuT6coiotz8mb cxzkNmMmAAUtWPw8GVd9YVZesMbi ExUgSKG6LoG7DWT9uXMx qQ3tkNuqofkeqA2sOej+TZw1v2db nUHeWR9wsGC6QG48HO63yVSwt4G3 oEB4M6AhVZOzfvubpukp eYM6QCYjDCDeuH18Um8amSvuNx6j RKWoMZW4ECLqpXXzL4BsiT1rEjNk EJLkKAEqW2HkbPCjCZjj P576FKzaFiG6GFIxscOoT6PaEJHp xMqeBcV0f7A9Ok3SIA70XG38CE27 fCTpk2W1aDG0J2GlGQGs nndzodzikQD1YFVgCZPfsP58Qg3q eKehJq2oUGRwNQR3OZUzfRAnB9Yo qT3qQoDbYUZxMCKrG3My mIRbVJvtA385RUngQkO4MITslgIh H3YcJLYqiXcxEzI8m0H9Ik2KKd78 UZ70TC63fJLxu4D5mQF4 T6DcVBCtjapoxmtseWL5LELrQLUg nV35Xn6gyJyeNb8mXWJlCOO2BEDl hOLdY6QdeG1dGwJvNSMd IEDjH8VqgCUoZHrnZ999APqsDvQ9 PPJuveSiF6NoFRZvaNmzWyN3g6Y3 Fk4FDQzqafj2W7YyInns dHI+FC27UCKtNB11lDTtpWRyv8ol bFc2HzHhAQHhXRY7oBisXJyfg6An PDOqF93exZFzb0F8JNDi bGx (more content not included)... [facility] C MRSA Screenon 06-30-2022 C MRSA Screen Negative [facility] Comment on above: Performed By: #### 1 [id number] ####[facility] (DEFAULT)[address] [place] [address] Progress Note - Nurseon 06-12 Progress Note - Nurse Dr. Castro reviewed PAT notes for upcoming surgery 07/26/2022. No new orders at this time [Electronically Signed on: 06/30/2022 11:45 EDT] Annamarie Samuels RN [Verified on: 06/30/2022 11:45 EDT] Annamarie Samuels RN [facility] Provider Orderson 06-30-2022 Provider Orders [id number] [facility] .Auto Diff 1on 06-29-2022 Auto [place] % 10 % Normal 1-12 [facility] Comment on above: Performed By: #### 7 [id number], [id number], [id number] ####[facility] (DEFAULT)[address] [place] [address] 99500 Baso Abs# 0.0 x10 Normal 0.0-0.2 [facility] Comment on above: Performed By: #### 7 [id number], [id number], [id number] ####[facility] (DEFAULT)[address] [place] [address] 31590 Basophils/100 WBC (Bld) 0.7 % Normal 0.2-2.0 [facility] Comment on above: Performed By: #### 7 [id number], [id number], [id number] ####[facility] (DEFAULT)[address] [place] [address] 92868 Eos Abs# 0.6 x10 High 0.0-0.4 [facility] Comment on above: Performed By: #### 7 [id number], [id number], [id number] ####[facility] (DEFAULT)[address] [place] [address] 41383 Eosinophils/100 WBC (Bld) 8.5 % High 0.9-4.0 [facility] Comment on above: Performed By: #### 7 [id number], [id number], [id number] ####[facility] (DEFAULT)[address] [place] [address] 21387 Lymph Abs# 1.6 x10 Normal 1.3-2.9 [facility] Comment on above: Performed By: #### 7 [id number], [id number], [id number] ####[facility] (DEFAULT)[address] [place] [address] 67418 Lymphocytes/100 WBC (Bld) 24 % Normal 14-48 [facility] Comment on above: Performed By: #### 7 [id number], [id number], [id number] ####[facility] (DEFAULT)[address] [place] [address]44 [place] Abs# 0.7 x10 Normal 0.0-0.8 [facility] Comment on above: Performed By: #### 7 281010, [id number], [id number] ####[facility] (DEFAULT)[address] [place] [address] 17966 Neut Abs# 3.8 x10 Normal 1.5-9.2 [facility] Comment on above: Performed By: #### 7 319500, [id number], [id number] ####[facility] (DEFAULT)[address] [place] [address] Neutrophils/100 WBC (Bld) 57 % Normal 44-88 [facility] Comment on above: Performed By: #### 7 297609, [id number], [id number] ####[facility] (DEFAULT)[address] [place] [address] 80294 BMP Standardon 06-29-2022 eGFR Non AA 33 mL/min/1.73m2 Invalid Interpretation Code [facility] Comment on above: Performed By: #### 7 704345, [id number], [id number] ####[facility] (DEFAULT)[address] [place] [address] 29633 eGFR AA 40 mL/min/1.73m2 Invalid Interpretation Code [facility] Comment on above: Performed By: #### 7 516355, [id number], [id number] ####[facility] (DEFAULT)[address] [place] [address] 25976 Anion gap [Moles/Vol] 8.9 mmol/L Normal 5.0-19.0 [facility] Comment on above: Performed By: #### 7 438004, [id number], [id number] ####[facility] (DEFAULT)[address] [place] [address] 39060 Calcium [Mass/Vol] 9.3 mg/dL Normal 8.9-10.3 [facility] Comment on above: Performed By: #### 7 501321, [id number], [id number] ####[facility] (DEFAULT)[address] [place] [address] 96628 Chloride [Moles/Vol] 102 mmol/L Normal 101-111 [facility] Comment on above: Performed By: #### 7 748103, [id number], [id number] ####[facility] (DEFAULT)[address] [place] [address] 89320 CO2 [Moles/Vol] 28 mmol/L Normal 21-32 [facility] Comment on above: Performed By: #### 7 992005, [id number], [id number] ####[facility] (DEFAULT)[address] [place] [address] 60751 Creatinine [Mass/Vol] 1.53 mg/dL High 0.60-1.30 [facility] Comment on above: Performed By: #### 7 851091, [id number], [id number] ####[facility] (DEFAULT)[address] [place] [address] 78712 Glucose [Mass/Vol] 107.0 mg/dL Normal 74.0-118.0 [facility] Comment on above: Performed By: #### 7 493564, [id number], [id number] ####[facility] (DEFAULT)[address] [place] [address] 33685 Osmolality 279 mOsm/L Invalid Interpretation Code [facility] Comment on above: Performed By: #### 7 [id number], [id number], [id number] ####[facility] (DEFAULT)[address] [place] [address] 57640 Potassium [Moles/Vol] 3.9 mmol/L Normal 3.6-5.1 [facility] Comment on above: Performed By: #### 7 [id number], [id number], [id number] ####[facility] (DEFAULT)[address] [place] [address] 80379 Sodium [Moles/Vol] 135.0 mmol/L Low 136.0-144 . 0 [facility] Comment on above: Performed By: #### 7 [id number], [id number], [id number] ####[facility] (DEFAULT)[address] [place] [address] 94198 Urea nitrogen [Mass/Vol] 36 mg/dL High 8-26 [facility] Comment on above: Performed By: #### 7 [id number], [id number], [id number] ####[facility] (DEFAULT)[address] [place] [address] Urea nitrogen/Creatinine [Mass ratio] 23.5 mg/mg High 4.6-16.2 [facility] Comment on above: Performed By: #### 7 [id number], [id number], [id number] ####[facility] (DEFAULT)[address] [place] [address] CBC w/ Auto Diffon 3 Erythrocyte distribution width (RBC) [Ratio] 12.8 % Normal 11.5-15.0 [facility] Comment on above: Performed By: #### 7 [id number], [id number], [id number] ####[facility] (DEFAULT)[address] [place] [address] Hematocrit (Bld) [Volume fraction] 36.4 % Normal 33.7-40.4 [facility] Comment on above: Performed By: #### 7 [id number], [id number], [id number] ####[facility] (DEFAULT)[address] [place] [address] Hemoglobin (Bld) [Mass/Vol] 12.2 g/dL Normal 11.3-15.9 [facility] Comment on above: Performed By: #### 7 158420, [id number], [id number] ####[facility] (DEFAULT)[address] [place] [address] Man Diff? Auto Invalid Interpretation Code [facility] Comment on above: Performed By: #### 7 [id number], [id number], [id number] ####[facility] (DEFAULT)[address] [place] [address] 40361 MCH (RBC) [Entitic mass] 32 pg Normal 24-34 [facility] Comment on above: Performed By: #### 7 [id number], [id number], [id number] ####[facility] (DEFAULT)[address] [place] [address] 26224 MCHC (RBC) [Mass/Vol] 33 g/dL Normal 26-37 [facility] Comment on above: Performed By: #### 7 [id number], [id number], [id number] ####[facility] (DEFAULT)[address] [place] [address] 13315 MCV (RBC) [Entitic vol] 97 fL Normal 81-100 [facility] Comment on above: Performed By: #### 7 [id number], [id number], [id number] ####[facility] (DEFAULT)[address] [place] [address] 02918 Platelet 336 x10 Normal 138-427 [facility] Comment on above: Performed By: #### 7 005366, [id number], [id number] ####[facility] (DEFAULT)[address] [place] [address] 88009 Platelet mean volume (Bld) [Entitic vol] 7.2 fL Normal 6.3-10.2 [facility] Comment on above: Performed By: #### 7 957759, [id number], [id number] ####[facility] (DEFAULT)[address] [place] [address] 11068 RBC 3.77 x10 Normal 3.70-5.30 [facility] Comment on above: Performed By: #### 7 055926, [id number], [id number] ####[facility] (DEFAULT)[address] [place] [address] 00396 WBC 6.7 x10 Normal 3.5-10.5 [facility] Comment on above: Performed By: #### 7 811080, [id number], [id number] ####[facility] (DEFAULT)[address] [place] [address] 85281 UA w Culture if Ind Standard on 06-29-2022 Breakpoint UA Normal [facility] Comment on above: Performed By: #### 1 [id number] #### [facility] (DEFAULT) [address] [place] [address] 95533 Color (U) Yellow Normal [facility] Comment on above: Performed By: #### 1 [id number] #### [facility] (DEFAULT) [address] [place] [address] Culture? Not Indicated Invalid Interpretation Code [facility] Comment on above: Result Comment: Resu lt created by rule GL_MAGR_[id number] Performed By: #### 1 [id number] #### [facility] (DEFAULT) [address] [place] [address] 80555 Glucose (U) [Mass/Vol] Negative Normal [facility] Comment on above: Performed By: #### 1 [id number] #### [facility] (DEFAULT) [address] [place] [address] 90734 Ketones Ql (U) Negative [facility] Comment on above: Performed By: #### 1 [id number] #### [facility] (DEFAULT) [address] [place] [address] 89354 Micro? Not Indicated Invalid Interpretation Code [facility] Comment on above: Result Comment: Resu lt created by rule GL_MAGR_ADD_UA_MICRO Performed By: #### 1 [id number] #### [facility] (DEFAULT) [address] [place] [address] UA Bilirubin Negative Normal [facility] Comment on above: Performed By: #### 1 [id number] #### [facility] (DEFAULT) [address] [place] [address] UA Blood Negative Normal NEGATIVE [facility] Comment on above: Performed By: #### 1 [id number] #### [facility] (DEFAULT) [address] [place] [address] UA Clarity CLEAR Normal CLEAR [facility] Comment on above: Performed By: #### 1 [id number] #### [facility] (DEFAULT) [address] [place] [address] UA Leuk Est Negative Normal NEGATIVE [facility] Comment on above: Performed By: #### 1 [id number] #### [facility] (DEFAULT) [address] [place] [address] UA Nitrite Negative Normal NEGATIVE [facility] Comment on above: Performed By: #### 1 [id number] #### [facility] (DEFAULT) [address] [place] [address] UA pH 6.5 Normal 5-8 [facility] Comment on above: Performed By: #### 1 [id number] #### [facility] (DEFAULT) [address] [place] [address] UA Protein Negative Normal NEGATIVE [facility] Comment on above: Performed By: #### 1 [id number] #### [facility] (DEFAULT) [address] [place] [address] UA Spec Grav 1.010 Normal 1.001-1.03 5 [facility] Comment on above: Performed By: #### 1 [id number] #### [facility] (DEFAULT) [address] [place] [address] UA Urobilinogen 0.2 mg/dL Normal 0.2-1.0 [facility] Comment on above: Performed By: #### 1 [id number] #### [facility] (DEFAULT) [address] [place] [address] Urine Source Clean Catch Normal [facility] Comment on above: Performed By: #### 1 [id number] #### [facility] (DEFAULT) [address] [place] [address] MRI Shoulder w/o Lefton 04-15 MRI Shoulder [...] by Adarsh Adams on 05/11/2022 1041 Normal [facility] SCREENING MAMMOGRAM W/ARABELLA, BILATERAL*on 11-20-2021 SCREENING MAMMOGRAM [...] VERY IMPORTANT TO YOUR HEALTH. THE CURRENT [place] GUIDELINES RECOMMENDS ANNUAL MAMMOGRAPHY BEGINNING AT AGE 39 THIS FACILITY USES A REMINDER SYSTEM TO ENSURE ALL PATIENTS RECEIVE REMINDER NOTIFICATIONS AT THE APPROPRIATE TIME BASED ON THE RECOMMENDATIONS OF THIS EXAM. Report reported and signed by Alejandro Forte on 11/20/2021 0949 Normal [facility] Comprehensive Metabolic Pane george 06-10-2021 Albumin [Mass/Vol] 4.2 g/dL Normal 3.6-5.1 [facility] Comment on above: Performed By: #### C JEWELS LIPD #### [facility] [address], [place] [id number] Albumin/Globulin [Mass ratio] 1.7 {ratio} Normal 1.0-2.5 [facility] Comment on above: Performed By: #### C JEWELS LIPD #### [facility] [address], [place] [id number] ALP [Catalytic activity/Vol] 82 U/L Normal 35-119 [facility] Comment on above: Performed By: #### C JEEWLS LIPD #### [facility] [address], [place] [id number] ALT [Catalytic activity/Vol] 15 U/L Normal 6-33 [facility] Comment on above: Result Comment: 02/11 Female reference range changed. Performed By: #### C MP LIPD #### [facility] [address], [place] [id number] Anion gap [Moles/Vol] 15 mmol/L Normal 12-20 [facility] Comment on above: Result Comment: Effe ctive 03/19/2019 reference range changed. Performed By: #### C MP LIPD #### [facility] [address], [place] [id number] AST [Catalytic activity/Vol] 21 U/L Normal 9-34 [facility] Comment on above: Performed By: #### C JEWELS LIPD #### [facility] [address], [place] [id number] BUN/CREA 28 Ratio High 6-22 [facility] Comment on above: Performed By: #### C JEWELS LIPD #### [facility] [address], [place] [id number] Calcium [Mass/Vol] 9.3 mg/dL Normal 8.6-10.2 [facility] Comment on above: Performed By: #### C JEWELS LIPTeresa #### [facility] [address], [place] [id number] Chloride [Moles/Vol] 106 mmol/L Normal 98-107 [facility] Comment on above: Performed By: #### C JEWELS LIPD #### [facility] [address], [place] [id number] CO2 [Moles/Vol] 24 mmol/L Normal 20-31 [facility] Comment on above: Performed By: #### C JEWELS LIPTeresa #### [facility] [address], [place] [id number] Creatinine [Mass/Vol] 1.1 mg/dL Normal 0.6-1.4 [facility] Comment on above: Performed By: #### C JEWELS LIPD #### [facility] [address], [place] [id number] eGFRAA 58 mL/min/1.73m2 Low >60 [facility] Comment on above: Performed By: #### C JEWELS LIPD #### [facility] [address], [place] [id number] eGFRNAA 48 mL/min/1.73m2 Low >60 [facility] Comment on above: Performed By: #### C JEWELS LIPD #### [facility] [address], [place] [id number] Globulin (S) [Mass/Vol] 2.5 g/dL Normal 1.9-3.7 [facility] [employer] [facility] Comment on above: Performed By: #### C MP, LIPD #### [facility] [address], [place] [id number] Glucose [Mass/Vol] 94 mg/dL Normal 65-99 [facility] [employer] Comment on above: Result Comment: For FASTING Glucose --- ADA reference ranges: Normal 65-99 mg/dl Prediabetes 100-125 Diabetes >/= 126 Performed By: #### C MP, LIPD #### [facility] [address], [place] [id number] Potassium [Moles/Vol] 4.4 mmol/L Normal 3.5-5.5 [facility] [employer] Comment on above: Performed By: #### C MP, LIPD #### [facility] [address], [place] [id number] Protein [Mass/Vol] 6.7 g/dL Normal 6.1-8.1 [facility] [employer] Comment on above: Performed By: #### C MP, LIPD #### [facility] [address], [place] [id number] Sodium [Moles/Vol] 141 mmol/L Normal 135-146 [facility] [employer] Comment on above: Performed By: #### C MP, LIPD #### [facility] [address], [place] [id number] TBIL <0.3 Normal [facility] Comment on above: Performed By: #### C MP, LIPD #### [facility] [address], [place] [id number] Urea nitrogen [Mass/Vol] 32 mg/dL High 7-25 [facility] [employer] Comment on above: Performed By: #### C MP, LIPD #### [facility] [address], [place] [id number] Lipid Panelon 06-10-2021 Cholesterol [Mass/Vol] 237 mg/dL High 125-200 [facility] [employer] Comment on above: Result Comment: Low risk < 200mg/dL Borderline risk 201-239 mg/dl High risk > or equal to 240 Performed By: #### C MP, LIPD #### [facility] [address], [place] [id number] Cholesterol in HDL [Mass/Vol] 100 mg/dL Normal >40 [facility] Comment on above: Result Comment: High Cardiovascular Risk HDL <40 mg/dL Low Cardiovascular Risk HDL > or equal to 60 mg/dl Performed By: #### C MP, LIPD #### [facility] [address], [place] [id number] Cholesterol in LDL [Mass/Vol] 124 mg/dL Normal [facility] Comment on above: Result Comment: LDL ATP III CLASSIFICATION LDL less than 100 mg/dl Optimal LDL 100-129 mg/dl Near or above optimal LDL 130-159 Borderline high LDL 160-189 High LDL greater than 189 mg/dl Very High Performed By: #### C MP, LIPD #### [facility] [address], [place] [id number] Cholesterol in VLDL [Mass/Vol] 13 mg/dL Normal [facility] Comment on above: Performed By: #### C MP, LIPD #### [facility] [address], [place] [id number] Cholesterol.total/Ch olesterol in HDL [Mass ratio] 2 {ratio} Normal [facility] Comment on above: Performed By: #### C MP, LIPD #### [facility] [address], [place] [id number] Triglyceride [Mass/Vol] 67 mg/dL Normal 30-150 [facility] Comment on above: Result Comment: TRIG ATPIII CLASSIFICATIONS TRIG less than 150 mg/dl Normal TRIG 150-199 mg/dl Borderline High TRIG 200-500 mg/dl High TRIG greather than 500 mg/dl Very High Performed By: #### C MP, LIPD #### [facility] [address], [place] [id number] ECHOCARDIO M/2D COMPLETEon 0 10-24-2020 ECHOCARDIO M/2D COMPLETE Patient: RADHA CUADRA Exam Date: 10/24/2020 : 1945 Gender:F Ordering : DR SHARI MCKEON M.D. Admission #: [id number] Family : Order #: [id number] CLICK HERE TO VIEW EXAM ECHOCARDIOGRAM REPORT [...] Area(A4C): 13.90 cm2 Left Atrium Systolic Volume(A2C): 76635 mm3 Left Atrium Systolic Volume(A4C): 51035 mm3 Mitral Valve MV E to A Ratio: 1.10 Mitral Valve A-Wave Peak Velocity: 68.60 cm/s Mitral Valve E-Wave Peak Velocity: 74.50 cm/s Deceleration Time: 259 ms Right Ventricle Aorta AO Root Diam: 2.60 cm Aortic Valve Peak Velocity (Antegrade Flow): 161.00 cm/s, 230.00 cm/s AoV Area (Peak Daniel): 1.93 cm2 AoV Area (VTI): 1.90 cm2 Deceleration Furnas: 1880 mm/s2 Pressure Half-Time: 528 ms Peak [...] M.D. on 10/24/2020 at 19:17 Normal [facility] HEMOGLOBINon 09-30-2020 Hemoglobin (Bld) [Mass/Vol] 12.3 g/dL Normal 12.0-16.0 [facility] Comment on above: Performed By: #### H GB #### [facility] [address] [id number] Geraldo Gaitan H PYLORI TISSUEon 02-01-2020 H PYL TISSUE, UREASE Negative Normal NEGATIVE [facility] Comment on above: Performed By: #### H GB #### [facility] [address] [place], [place] [address] Geraldo Gaitan COVID-19 PCRon 01-27-2020 SARS-CoV-2 (COVID-19) RNA VIVIENNE+probe Ql (Unsp spec) Not detected Normal Not Detected [facility] Comment on above: Result Comment: This nucleic acid amplification test was developed and its performance characteristics determined by [employer]. Nucleic acid amplification tests include PCR and [...] Performed By: #### C VDSTAT, CVDPCR #### [facility] [address] [place] [address] Geraldo Gaitan PRIORITY COVID PROCESSINGon 01-27-2020 Comment Comment [facility] Comment on above: Result Comment: Rece ived Performed By: #### C VDSTAT, CVDPCR #### [facility] [address] [id number] Geraldo Kandy CULTURE BLOODon 01-08-2020 Microscopic examination of blood, [...] S F Trimethoprim/Sulfamethoxazol e <=20 S F [facility] Comment on above: Performed By: #### H GB #### [facility] [address] [place] [address] [employer] BLOOD CULTURE ID PANELon A. baumannii Not detected Normal [facility] Comment on above: Performed By: #### B MIRYAM #### [facility] [address] [place] [address] Geraldo Kandy BCID CONTROLS PASSED Normal [facility] Comment on above: Performed By: #### B MIRYAM #### [facility] [address] [place] [address] Geraldo Kandy BCIDBTHD BLOOD CULTURE BOTTLE INFORMATION Normal [facility] Comment on above: Performed By: #### B MIRYAM #### [facility] [address] [place] [address] Geraldo Kandy BCIDHD1 ANTIMICROBIAL RESIST ANCE GENES Normal [facility] Comment on above: Performed By: #### B MIRYAM #### [facility] [address] [place] [address] Geraldo Kandy BCIDHD2 SEE BELOW [facility] Comment on above: Result Comment: KPC- carbapenem resistance gene, mecA- methecillin resistance gene, van A/B- vancomycin resistance gene Note: Antimicrobial resitance can occur via multiple mechanisms. A Not Detected result for the [employer] antomicrobial resistance gene assays does not indicate antimicrobial susceptibility. Subculturing is required for specis identificationand susceptibility testing of isolates. Performed By: #### B MIRYAM #### [facility] [address] [place] [address] Geraldo Kandy BCIDHD3 Positive Normal [facility] Comment on above: Performed By: #### B MIRYAM #### [facility] [address] [place] [address] Geraldo Kandy BCIDHD3 Negative Normal [facility] Comment on above: Performed By: #### B MIRYAM #### [facility] [address] [place] [address] Geraldo Kandy BCIDHD5 YEAST Normal [facility] Comment on above: Performed By: #### B MIRYAM #### [facility] [address] [place] [address] Geraldo Kandy BCIDHD6 SEE BELOW [facility] Comment on above: Result Comment: Note : All genus and species BCID [employer] results will be verified post subculturing via Maldi-Tof MS testing methodology. Performed By: #### B MIRYAM #### [facility] [address] [place] [address] Geraldo Kandy Bottle Set: Set 2 Normal [facility] Comment on above: Performed By: #### B MIRYAM #### [facility] [address] [place] [address] Geraldo Kandy Bottle: Aerobic Normal [facility] Comment on above: Performed By: #### B MIRYAM #### [facility] [address] [place] [address] Geraldo Kandy Naomi albicans Not detected Normal [facility] Comment on above: Performed By: #### B MIRYAM #### [facility] [address] [place] [address] Geraldo Kandy Naomi glabrata Not detected Normal [facility] Comment on above: Performed By: #### B MIRYAM #### [facility] [address] [place] [address] Geraldo Kandy Naomi Krusei Not detected Normal [facility] Comment on above: Performed By: #### B MIRYAM #### [facility] [address] [place] [address] Geraldo Kandy Naomi Parapsilosis Not detected Normal [facility] Comment on above: Performed By: #### B MIRYAM #### [facility] [address] [place] [address] Geraldo Kandy Naomi Tropicalis Not detected Normal [facility] Comment on above: Performed By: #### B MIRYAM #### [facility] [address] [place] [address] Geraldo Kandy E. Cloacae complex Not detected Normal [facility] Comment on above: Performed By: #### B MIRYAM #### [facility] [address] [place] [address] Geraldo Kandy Enterobacteriaceae Detected Invalid Interpretation Code [facility] Comment on above: Performed By: #### B MIRYAM #### [facility] [address] [place] [address] Geraldo Kandy Enterococcus Not detected Normal [facility] Comment on above: Performed By: #### B MIRYAM #### [facility] [address] [place] [address] Geraldo Kandy Escheria coli Detected Normal [facility] Comment on above: Performed By: #### B MIRYAM #### [facility] [address] [place] [address] Geraldobhumi Gaitan K. oxytoca Not detected Normal [facility] Comment on above: Performed By: #### B MIRYAM #### [facility] [address] [place] [address] Geraldobhumi Charlesen K. pneumoniae Not detected Normal [facility] Comment on above: Performed By: #### B MIRYAM #### [facility] [address] [place] [address] Geraldo Kandy KPC Resistant Gene Not detected Normal [facility] Comment on above: Performed By: #### B MIRYAM #### [facility] [address] [place] [address] Geraldo Kandy List. monocytogenes Not detected Normal [facility] Comment on above: Performed By: #### B MIRYAM #### [facility] [address] [place] [address] Geraldobhumi Gaitan mecA Resistant Gene Not detected Normal [facility] Comment on above: Performed By: #### B MIRYAM #### [facility] [address] [place] [address] Egraldobhumi Charlesen Proteus Not detected Normal [facility] Comment on above: Performed By: #### B MIRYAM #### [facility] [address] [place] [address] Geraldobhumi Gaitan Pseud. aeruginosa Not detected Normal [facility] Comment on above: Performed By: #### B MIRYAM #### [facility] [address] [place] [address] Geraldo Kandy Seratia marcescens Not detected Normal [facility] Comment on above: Performed By: #### B MIRYAM #### [facility] [address] [place] [address] Geraldo Gaitan Site: R AC Normal [facility] Comment on above: Performed By: #### B MIRYAM #### [facility] [address] [place] [address] Geraldo Gaitan Staph. aureus Not detected Normal [facility] Comment on above: Performed By: #### B MIRYAM #### [facility] [address] [place] [address] Geraldo Kandy Staphylococcus Not detected Normal [facility] Comment on above: Performed By: #### B MIRYAM #### [facility] [address] [place] [address] Geraldobhumi Gaitan Strep. agalactiae Not detected Normal [facility] Comment on above: Performed By: #### B MIRYAM #### [facility] [address] [place] [address] Geraldo Kandy Strep. pneumoniae Not detected Normal [facility] Comment on above: Performed By: #### B MIRYAM #### [facility] [address] [place] [address] Geraldobhumi Gaitan Strep. pyogenes Not detected Normal [facility] Comment on above: Performed By: #### B MIRYAM #### [facility] [address] [place] [address] Geraldobhumi Gaitan Streptococcus Not detected Normal [facility] Comment on above: Performed By: #### B MIRYAM #### [facility] [address] [place] [address] Geraldo Gaitan Aicha/B Resist. Gene Not detected Normal [facility] Comment on above: Performed By: #### B MIRYAM #### [facility] [address] [place] [address] Geraldobhumi Charlesen CBC AUTO DIFFon 01-02-2020 BASO # 0.0 103/ul Normal 0.0-0.1 [facility] Comment on above: Performed By: #### C BC #### [facility] [address] [place] [address] Geraldo Kandy Basophils/100 WBC (Bld) 0.3 % Normal 0.2-2.0 [facility] Comment on above: Performed By: #### C BC #### [facility] [address] [place] [address] Geraldo Kandy EO # 0.0 103/ul Normal 0.0-0.7 [facility] Comment on above: Performed By: #### C BC #### [facility] [address] [place], [place] [id number] Geraldo Kandy Eosinophils/100 WBC (Bld) 0.3 % Critically low 0.9-7.0 [facility] Comment on above: Performed By: #### C BC #### [facility] [address] [place], [place] [id number] Geraldo Kandy Erythrocyte distribution width (RBC) [Ratio] 12.6 % Normal 11.0-15.0 [facility] Comment on above: Performed By: #### C BC #### [facility] [address] [place] [address] Geraldo Kandy Hematocrit (Bld) [Volume fraction] 42.7 % Normal 36.0-48.0 [facility] Comment on above: Performed By: #### C BC #### [facility] [address] [place] [address] Geraldo Kandy Hemoglobin (Bld) [Mass/Vol] 13.6 g/dL Normal 12.0-16.0 [facility] Comment on above: Performed By: #### C BC #### [facility] [address] [place], [place] [id number] Geraldo Kandy IG # 0.04 10e3/ul Critically high 0.00-0.03 [facility] Comment on above: Performed By: #### C BC #### [facility] [address] [place] [address] Geraldo Kandy IG % 0.3 % Normal 0.0-0.5 [facility] Comment on above: Performed By: #### C BC #### [facility] [address] [place] [address] Geraldo Kandy LYMPH # 0.5 103/ul Critically low 1.2-3.8 [facility] Comment on above: Performed By: #### C BC #### [facility] [address] [place] [address] Geraldo Kandy Lymphocytes/100 WBC (Bld) 4.4 % Critically low 20.5-60.0 [facility] Comment on above: Performed By: #### C BC #### [facility] [address] [place], [place] [id number] Geraldobhumi Gaitan MANUAL DIFF REQ NO Normal [facility] Comment on above: Performed By: #### C BC #### [facility] [address] [place], [place] [id number] Geraldobhumi Gaitan MCH (RBC) [Entitic mass] 30.6 pg Normal 26.7-34.0 [facility] Comment on above: Performed By: #### C BC #### [facility] [address] [place] [address] Geraldo Gaitan MCHC (RBC) [Mass/Vol] 31.9 g/dL Normal 29.9-35.2 [facility] Comment on above: Performed By: #### C BC #### [facility] [address] [place] [address] Geraldobhumi Gaitan MCV (RBC) [Entitic vol] 96.0 fL Normal 81.0-99.0 [facility] Comment on above: Performed By: #### C BC #### [facility] [address] [place] [address] Geraldo Kandy MONO # 0.8 103/ul Normal 0.3-0.8 [facility] Comment on above: Performed By: #### C BC #### [facility] [address] [place] [address] Geraldo Gaitan Monocytes/100 WBC (Bld) 6.5 % Normal 1.7-12.0 [facility] Comment on above: Performed By: #### C BC #### [facility] [address] [place] [address] Geraldo Kandy NEUT # 10.1 103/ul Critically high 1.4-6.5 [facility] Comment on above: Performed By: #### C BC #### [facility] [address] [place], [place] [id number] Geraldo Kandy Neutrophils/100 WBC (Bld) 88.2 % Critically high 43.0-75.0 [facility] Comment on above: Performed By: #### C BC #### [facility] [address] [place], [place] [id number] Geraldo Kandy Platelet mean volume (Bld) [Entitic vol] 9.8 fL Normal 9.5-13.5 [facility] Comment on above: Performed By: #### C BC #### [facility] [address] [place] [address] Geraldo Gaitan PLT 254 103/ul Normal 150-450 [facility] Comment on above: Performed By: #### C BC #### [facility] [address] [place] [address] Geraldo Gaitan RBC 4.45 106/ul Normal 4.20-5.40 [facility] Comment on above: Performed By: #### C BC #### [facility] [address] [place] [address] HEAD WO CONon 01-02-2020 [...] REMY NESS Date: 2020-01-02 19:00 Normal [facility] CULTURE BLOODon 01-02-2020 Microscopic examination of blood, culture Culture Observations: No growth at 5 days Normal [facility] Comment on above: Performed By: #### H GB #### [facility] [address] [place] [address] Geraldo Gaitan CULTURE URINEon 01-02-2020 CULTURE URINE Culture Observations : Light growth of mixed genital eliezer.No potential pathogens seen. Normal [facility] Comment on above: Performed By: #### H GB #### [facility] [address] [place] [address] Geraldo Kandy ER URINE PROFILEon 0 Bilirubin Ql (U) Negative Normal NEGATIVE [facility] Comment on above: Performed By: #### MELODY CORDOVA #### [facility] [address] [place] [address] Geraldo Kandy Clarity (U) SL CLOUDY Normal The [facility] Comment on above: Performed By: #### MELODY CORDOVA #### [facility] [address] [place] [address] Geraldo Kandy Color (U) LT. YELLOW Normal YELLOW [facility] Comment on above: Performed By: #### MELODY CORDOVA #### [facility] [address] [place] [address] Geraldo Kandy ERUAHD A micrscopic examina tion will be performed if indicated. Normal [facility] Comment on above: Performed By: #### MELODY CORDOVA #### [facility] [address] [place] [address] Geraldo Kandy Glucose Ql (U) Negative Normal NEGATIVE [facility] Comment on above: Performed By: #### MELODY CORDOVA #### [facility] [address] [place] [address] Geraldo Kandy Hemoglobin Ql (U) SMALL Normal NEGATIVE [facility] Comment on above: Performed By: #### MELODY CORDOVA #### [facility] [address] [place] [address] Geraldo Kandy Ketones Ql (U) Negative Normal NEGATIVE The [facility] Comment on above: Performed By: #### MELODY CORDOVA #### [facility] [address] [place] [address] Geraldo Kandy LEUKOCYTES TRACE Normal NEGATIVE [facility] Comment on above: Performed By: #### MELODY CORDOVA #### [facility] [address] [place] [address] Geraldo Kandy Nitrite Ql (U) Negative Normal NEGATIVE The [facility] Comment on above: Performed By: #### KANDICE CORDOVARO #### [facility] [address] [place], [place] [id number] Geraldobhumi Charlesen pH (U) 7.0 [pH] Normal 5-9 [facility] Comment on above: Performed By: #### KANDICE CORDOVARO #### [facility] [address] [place], [place] [id number] Geraldobhumi Charlesen Protein Ql (U) 30 mg/dl Normal [facility] Comment on above: Performed By: #### KANDICE CORDOVARO #### [facility] [address] [place], [place] [id number] Geraldo Charlesen SPEC GRAVITY 1.015 Normal 1.005-<=1. 025 [facility] Comment on above: Performed By: #### MELODY CORDOVA #### [facility] [address] [place], [place] [id number] Geraldo Gaitan UR MICRO IND INDICATED Normal [facility] Comment on above: Performed By: #### MELODY CORDOVA #### [facility] [address] [place], [place] [id number] Geraldobhumi Gaitan Urobilinogen Qn (U) 0.2 {Eileen'U}/dL Normal [facility] Comment on above: Performed By: #### MELODY CORDOVA #### [facility] [address] [place], [place] [id number] Geraldo Gaitan LACTATE/LACTIC ACIDon 2019 Lactate [Moles/Vol] 1.1 mmol/L Normal 0.7-2.0 [facility] Comment on above: Performed By: #### H GB #### [facility] [address] [place], [place] [id number] Geraldo Gaitan PROCALCITONINon 01-02-2020 PCT header 1 SEE BELOW Normal [facility] Comment on above: Result Comment: PCT <0.5ng/mL: Systemic infection (sepsis) is not likely, local bacterial infection possible, low risk for progression to severe systemic infection (severe sepsis) Performed By: #### P RL #### [facility] [address] [place] [address] Geraldo Kandy PCT header 2 SEE BELOW Normal [facility] Comment on above: Result Comment: PCT >/=0.5 and <2 ng/mL: Systemic infection (sepsis) is possible, moderate risk for progression to severe systemic infection (severe sepsis) Performed By: #### P RL #### [facility] [address] [place] [address] Geraldo Kandy PCT header 3 SEE BELOW Normal [facility] Comment on above: Result Comment: PCT >/=2.0 and <10 ng/mL: Systemic infection (sepsis) is likely, unless other causes are known, high risk for progession to severe systemic infection(severe sepsis) Performed By: #### P RL #### [facility] [address] [place] [address] Geraldo Kandy PCT header 4 SEE BELOW Normal [facility] Comment on above: Result Comment: PCT >/= 10 ng/mL: Important systemic inflammatory response almost exclusively due to severe bacterial sepsis or septic shock, high likelihood of severe sepsis or septic shock Performed By: #### P RL #### [facility] [address] [place] [address] Geraldo Gaitan PROCALCITONIN 0.62 ng/mL Critically high 0.00-0.50 [facility] Comment on above: Performed By: #### P RL #### [facility] [address] [place] [address] Geraldo Gaitan PROF 14(COMP METB)on 020 Albumin [Mass/Vol] 3.6 g/dL Normal 3.5-5.0 [facility] Comment on above: Performed By: #### C MP #### [facility] [address] [place] [address] Geraldo Gaitan Albumin/Globulin [Mass ratio] 0.8 {ratio} Normal [facility] Comment on above: Performed By: #### C MP #### [facility] [address] [place] [address] Geraldo Gaitan ALP [Catalytic activity/Vol] 95 U/L Normal 38-126 [facility] Comment on above: Performed By: #### C MP #### [facility] [address] [place], [place] [address] Geraldo Kandy ALT [Catalytic activity/Vol] 32 U/L Normal 9-52 [facility] Comment on above: Performed By: #### C MP #### [facility] [address] [place] [id number] Geraldo Kandy Anion gap [Moles/Vol] 13.8 mmol/L Normal [facility] Comment on above: Performed By: #### C MP #### [facility] [address] [id number] Geraldo Kandy AST [Catalytic activity/Vol] 42 U/L Critically high 14-36 [facility] Comment on above: Performed By: #### C MP #### [facility] [address] [place] [address] Geraldo Kandy Bilirubin [Mass/Vol] 0.5 mg/dL Normal 0.2-1.3 [facility] Comment on above: Performed By: #### C MP #### [facility] [address] [place] [address] Geraldo Kandy Calcium [Mass/Vol] 9.4 mg/dL Normal 8.4-10.2 [facility] Comment on above: Performed By: #### C MP #### [facility] [address] [place] [address] Geraldo Kandy Chloride [Moles/Vol] 100 mmol/L Normal 98-107 [facility] Comment on above: Performed By: #### C MP #### [facility] [address] [place], [place] [id number] Geraldo Kandy CO2 [Moles/Vol] 24.6 mmol/L Normal 22.0-30.0 [facility] Comment on above: Performed By: #### C MP #### [facility] [address] [place], [place] [id number] Geraldo Kandy Creatinine [Mass/Vol] 1.36 mg/dL Critically high 0.52-1.04 [facility] Comment on above: Performed By: #### C MP #### [facility] [address] [place], [place] [address] Geraldo Kandy EGFR-AF OMANI 46 mL/min/1.73m2 Critically low >=60 [facility] Comment on above: Performed By: #### C MP #### [facility] [address] [id number] Geraldo Kandy EGFR-NON AF OMANI 38 mL/min/1.73m2 Critically low >=60 [facility] Comment on above: Performed By: #### C MP #### [facility] [address] [id number] Geraldo Kandy Globulin (S) [Mass/Vol] 4.5 g/dL Normal [facility] Comment on above: Performed By: #### C MP #### [facility] [address] [place] [address] Geraldo Kandy Glucose [Mass/Vol] 120 mg/dL Critically high 74-106 [facility] Comment on above: Performed By: #### C MP #### [facility] [address] [address] Geraldo Kandy Potassium [Moles/Vol] 3.4 mmol/L Normal 3.4-5.0 [facility] Comment on above: Performed By: #### C MP #### [facility] [address] [place], [place] [id number] Geraldo Kandy Protein [Mass/Vol] 8.1 g/dL Normal 6.1-8.2 [facility] Comment on above: Performed By: #### C MP #### [facility] [address] [address] Geraldo Kandy Sodium [Moles/Vol] 135 mmol/L Critically low 137-145 [facility] Comment on above: Performed By: #### C MP #### [facility] [address] [place], [place] [id number] Geraldo Kandy Urea nitrogen [Mass/Vol] 22.0 mg/dL Critically high 7.0-17.0 [facility] Comment on above: Performed By: #### C MP #### [facility] [address] [place], [place] [id number] Geraldo Kandy Urea nitrogen/Creatinine [Mass ratio] 16.2 mg/mg Normal [facility] Comment on above: Performed By: #### C MP #### [facility] [address] [place] [address] Geraldo Kandy RESPIRATORY PANEL PLUSon Adenovirus Not detected Normal NOT DETECTED [facility] Comment on above: Performed By: #### R SPLUS #### [facility] [address] [place] [address] Geraldo Kandy B. Parapertusis Not detected Normal NOT DETECTED [facility] Comment on above: Performed By: #### R SPLUS #### [facility] [address] [place] [address] Geraldo Kandy B. Pertussis Not detected Normal NOT DETECTED [facility] Comment on above: Performed By: #### R SPLUS #### [facility] [address] [place] [address] Geraldo Kandy Chlamydia Pneumoniae Not detected Normal NOT DETECTED [facility] Comment on above: Performed By: #### R SPLUS #### [facility] [address] [place] [address] Geraldo Kandy Coronavirus 229E Not detected Normal NOT DETECTED [facility] Comment on above: Performed By: #### R SPLUS #### [facility] [address] [place] [address] Geraldo Kandy Coronavirus HKU1 Not detected Normal NOT DETECTED [facility] Comment on above: Performed By: #### R SPLUS #### [facility] [address] [place] [address] Geraldo Kandy Coronavirus NL63 Not detected Normal NOT DETECTED [facility] Comment on above: Performed By: #### R SPLUS #### [facility] [address] [place] [address] Geraldo Kandy Coronavirus OC43 Not detected Normal NOT DETECTED [facility] Comment on above: Performed By: #### R SPLUS #### [facility] [address] [place] [address] Geraldo Kandy Influenza A H1 2009 Not detected Normal NOT DETECTED [facility] Comment on above: Performed By: #### R SPLUS #### [facility] [address] [place] [address] Geraldo Kandy Influenza B Not detected Normal NOT DETECTED [facility] Comment on above: Performed By: #### R SPLUS #### [facility] [address] [place] [address] Geraldo Kandy Metapneumovirus Not detected Normal NOT DETECTED [facility] Comment on above: Performed By: #### R SPLUS #### [facility] [address] [place] [address] Geraldo Kandy Mycoplas. Pneumoniae Not detected Normal NOT DETECTED [facility] Comment on above: Performed By: #### R SPLUS #### [facility] [address] [place] [address] Geraldo Kandy Parainfluenza 1 Not detected Normal NOT DETECTED [facility] Comment on above: Performed By: #### R SPLUS #### [facility] [address] [place] [address] Geraldo Kandy Parainfluenza 2 Not detected Normal NOT DETECTED [facility] Comment on above: Performed By: #### R SPLUS #### [facility] [address] [place] [address] Geraldo Kandy Parainfluenza 3 Not detected Normal NOT DETECTED [facility] Comment on above: Performed By: #### R SPLUS #### [facility] [address] [place] [address] Geraldo Kandy Parainfluenza 4 Not detected Normal NOT DETECTED [facility] Comment on above: Performed By: #### R SPLUS #### [facility] [address] [place] [address] Geraldo Kandy Rhino/Enterovirus Not detected Normal NOT DETECTED [facility] Comment on above: Performed By: #### R SPLUS #### [facility] [address] [place] [address] Geraldo Kandy RP2 Header 1 RESPIRATORY PANEL: VIRUSES Normal [facility] Comment on above: Performed By: #### R SPLUS #### [facility] [address] [place] [address] Geraldo Kandy RP2 Header 2 RESPIRATORY PANEL: BACTERIA Normal [facility] Comment on above: Performed By: #### R SPLUS #### [facility] [address] [place] [address] Geraldo Gaitan RP2 Header 4 EUA SEE BELOW Normal [facility] Comment on above: Result Comment: This test is not yet approved or cleared by the [place] FDA. When there are no FDA-approved or cleared tests available, and other criteria are met, FDA can make tests available under an emergency access mechanism called an Emergency Use Authorization (EUA). The EUA for this test is supported by the [place] of Health and Human Service?s (HHS?s) declaration [...] used). Performed By: #### R SPLUS #### [facility] [address] [place] [address] Geraldo Gaitan RSV Not detected Normal NOT DETECTED [facility] Comment on above: Performed By: #### R SPLUS #### [facility] [address] [place] [address] Geraldo Gaitan SARS-CoV-2 (COVID-19) RNA VIVIENNE+probe Ql (Unsp spec) Not detected Normal NOT DETECTED [facility] Comment on above: Performed By: #### R SPLUS #### [facility] [address] [place] [address] Geraldo Gaitan URINE MICROSCOPIC ONLYon BACTERIA MODERATE Normal NONE SEEN The [facility] Comment on above: Performed By: #### MELODY CORDOVA #### [facility] [address] [place] [address] Geraldo Gaitan Bacteria identified Cx Nom (U) INDICATED Normal [facility] Comment on above: Performed By: #### MELODY CORDOVA #### [facility] [address] [place] [address] Geraldo Kandy CAST NONE SEEN Normal NONE SEEN [facility] Comment on above: Performed By: #### E PABLO UMJUSTYNARO #### [facility] [address] [place] [address] Geraldo Kandy Crystals LM Nom (Urine sed) NONE SEEN Normal NONE SEEN [facility] Comment on above: Performed By: #### Luis SHAH UMICRO #### [facility] [address] [place] [address] Geraldo Kandy Epithelial cells LM Ql (Urine sed) RARE Normal [facility] Comment on above: Performed By: #### E PABLO UMICRO #### [facility] [address] [place] [address] Geraldo Kandy MUCOUS NONE SEEN Normal NONE SEEN The [facility] Comment on above: Performed By: #### Luis SHAH UMICRO #### [facility] [address] [place] [address] Geraldo Kandy RBC 0-2 Normal 0-2 [facility] Comment on above: Performed By: #### Luis SHAH UMICRO #### [facility] [address] [place] [address] Geraldo Kandy WBC 5-10 Normal NONE SEEN The [facility] Comment on above: Performed By: #### E PABLO UMICRO #### [facility] [address] [place] [address] Geraldo Kandy XR CHEST 1 Von 01-02-2020 [...] by: REMY NESS Date: 2020-01-02 18:52 Normal [facility] Encounters Encounter Date Encounter Type Care Provider Facility Start: 11-28-2023 End: 11-28-2023 ambulatory Kei Espana MD Facility:[facility] Start: 10-04-2023 End: 10-04-2023 amb[address] A [address] [facility] Start: 09-19-2023 End: 09-19-2023 ambulatory ALEXANDER A HASABINAENBURG Not Available Start: 09-19-2023 End: 09-19-2023 ambulatory ALEXANDER A HASABINAENBURG Not Available Start: 09-05-2023 End: 09-05-2023 ambulatory Andrius Vytautas Sherinraitis Facility:[facility] Start: 08-22-2023 End: 08-22-2023 ambulatory Andrius Emmaytautas Sherinraitis Facility:[facility] Start: 07-25-2023 End: 07-25-2023 ambulatory Andrius Emmaytautas Dwightitis Facility:[facility] Start: 07-11-2023 End: 07-11-2023 ambulatory Andrius Emmaytautas Dwightitis Facility:[facility] Start: 06-17-2023 End: 06-17-2023 ambulatory ALEXANDER A ASIAENKORTNEY Not Available Start: 04-27-2023 Telephone encounter Marisa sierra DO Work Phone: [facility] 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 Start: 04-21-2023 Refill Alexander Deantje jossue [employer] Work Phone: [facility] Comment on above: Essential hypertensi on (CMS/HCC) Start: 04-18-2023 End: 04-18-2023 ambulatory ALEXANDER A ASIAENBURG Not Available Start: 03-08-2023 End: 03-08-2023 ambulatory MARISA A PATRICIA Not Available Start: 03-01-2023 End: 03-01-2023 ambulatory MARISA RAMOS Not Available Start: 02-22-2023 End: 02-22-2023 ambulatory MARISA A PATRICIA Not Available Start: 02-08-2023 End: 02-08-2023 ambulatory MARISA A PATRICIA Not Available Start: 02-01-2023 End: 02-01-2023 ambulatory MAIRSA RAMOS Not Available Start: 01-28-2023 End: 11-17-2023 ambulatory SHARI MCKEON Not Available Start: 07-26-2022 End: 07-26-2022 ambulatory SHARI MCKEON Facility:[facility] Start: 06-29-2022 End: 06-30-2022 ambulatory SHARI MCKEON Facility:[facility] Start: 10-24-2020 End: 10-25-[address] SHARI MCKEON Facility:[facility] Start: 09-30-2020 End: 10-01-[address] SHARI MCKEON Facility:[facility] Start: 02-01-2020 End: 02-01-[address] CARLOS EDUARDO MENENDEZ Facility:[facility] Start: 01-30-2020 Encounter for preprocedural laboratory examination DR CARLOS EDUARDO MENENDEZ [facility] Start: 01-26-2020 End: 01-27-[address] SHARI MCKEON Facility:[facility] Start: 01-26-2020 End: 01-27-2020 Encounter for preprocedural laboratory examination DR SHARI MCKEON Facility:[facility] Start: 01-02-2020 End: 01-02-[address] BÁRBARA BLUE Facility:[facility] Start: 05-25-2018 End: 05-26-2018 Patient encounter procedure DEFAULT PHYSICIAN Facility:[facility] Plan of Treatment Date Care Activity Detail Author Start: 08-02-2023 End: 08-02-2023 Patient encounter procedure 08/02/2023 9:00 AM EDT Office Visit [facility] [address] [facility] [address] [place] [address] Marisa Ramos DO [address] [facility] [address] [place] [address] [facility] Start: 05-06-2023 Medicare Annual Wellness (AWV) Medicare Annual Wellness (AWV) [facility] Immunizations Immunization Date Immunization Notes Care Provider Fa cility 12-23-2022 Influenza, High-dose Seasonal, Quadrivalent, Preservative Free Alexander Aparicio [employer] Work Phone: [facility] 12-23-2022 SARS-COV-2 (COVID-19 ) vaccine, mRNA, spike protein, LNP, PF, 50 mcg/0.5 mL Alexander Deanckenburg [employer] Work Phone: [facility] 12-01-2021 Influenza, Seasonal, Quadrivalent, Adjuvanted Alexander Hackenburg [employer] Work Phone: [facility] 12-01-2021 Seasonal, trivalent, recombinant, injectable influenza vaccine, preservative free Alexander Hackenburg [employer] Work Phone: [facility] 12-16-2020 Influenza, High-dose Seasonal, Quadrivalent, Preservative Free Alexander Hackenburg [employer] Work Phone: [facility] 02-14-2020 zoster vaccine recombinant Alexander Hackenburg [employer] Work Phone: [facility] 12-07-2019 influenza, seasonal, injectable Alexander Hackenburg [employer] Work Phone: [facility] 11-13-2019 influenza, injectabl e, quadrivalent, preservative free Alexander Hackenburg [employer] Work Phone: [facility] 11-13-2019 zoster vaccine recombinant Alexander Hackenburg [employer] Work Phone: [facility] 11-12-2019 zoster vaccine recombinant Alexander Hackenburg [employer] Work Phone: [facility] 11-29-2018 Seasonal trivalent influenza vaccine, adjuvanted, preservative free Alexander Hackenburg [employer] Work Phone: [facility] 11-30-2017 influenza, high dose seasonal, preservative-free Alexander Hackenburg [employer] Work Phone: [facility] 11-24-2017 Seasonal trivalent influenza vaccine, adjuvanted, preservative free Alexander Hackenburg [employer] Work Phone: [facility] 11-18-2016 influenza, high dose seasonal, preservative-free Alexander Hackenburg [employer] Work Phone: [facility] Work Phone: 11-18-2016 pneumococcal conjuga te vaccine, 13 valent Alexander Hackenburg [employer] Work Phone: [facility] 11-18-2016 Seasonal trivalent influenza vaccine, adjuvanted, preservative free Alexander Hasabinaenburg [employer] Work Phone: [facility] 11-18-2016 tetanus toxoid, redu greg diphtheria toxoid, and acellular pertussis vaccine, adsorbed Alexander Asiaenburg [employer] Work Phone: [facility] 11-12-2016 pneumococcal polysaccharide vaccine, 23 valent Alexander Hackenburg [employer] Work Phone: [facility] 12-11-2015 influenza, high dose seasonal, preservative-free Alexander Hasabinaenburg [employer] Work Phone: [facility] 12-30-2014 influenza virus vaccine, whole virus Alexander Hasabinaenburg [employer] Work Phone: [facility] 12-30-2014 influenza, injectabl e, quadrivalent, preservative free Alexander Hasabinaenburg [employer] Work Phone: [facility] 05-10-2014 pneumococcal conjuga te vaccine, 13 valent Alexander Hasabinaenburg [employer] Work Phone: [facility] 12-13-2013 influenza virus vaccine, whole virus Alexander Hasabinaenburg [employer] Work Phone: [facility] 01-12-2013 pneumococcal Conjuga te, unspecified formulation Alexander Hasabinaenburg [employer] Work Phone: [facility] 01-12-2013 seasonal influenza, intradermal, preservative free Alexander Hasabinaenburg [employer] Work Phone: [facility] 12-27-2012 pneumococcal polysaccharide vaccine, 23 valent Alexander Hackenburg [employer] Work Phone: [facility] Payers Date Payer Category Payer Unknown 2017 Medicare [employer] MED[employer]AGE [facility] MEDICARE ADVANTAGE [id number] 2017-Present [address] [place] [address] [id number] 1959 Unknown [id number] 1944 Unknown [id number] [id number] 1944 Unknown [id number] 2.16.840.1.632442.3.579.2.593 1944 Unknown [id number] 2.16.840.1.271315.3.579.2.593 1944 Unknown [id number] 2.16.840.1.089959.3.579.2.593 1944 Unknown [id number] 2.16.840.1.603171.3.579.2.593 1944 Unknown [id number] 2.16.840.1.203473.3.579.2.593 1944 Unknown [id number] 2.16.840.1.553711.3.579.2.718 1944 Unknown [id number] 2.16.840.1.327267.3.579.2.718 1944 Unknown [id number] 2.16.840.1.365877.3.579.2.125 9 1944 Unknown [id number] 2.16.840.1.684909.3.579.2.125 9 1944 Unknown [id number] 2.16.840.1.327318.3.579.2.125 9 1944 Unknown [id number] 2.16.840.1.373189.3.579.2.125 9 1944 Unknown [id number] 2.16.840.1.653021.3.579.2.125 9 1944 Unknown [id number] 2.16.840.1.262492.3.579.2.125 9 1944 Unknown [id number] 2.16.840.1.174548.3.579.2.125 9 1944 Unknown [id number] 2.16.840.1.901339.3.579.2.125 9 1944 Unknown [id number] 2.16.840.1.797555.3.579.2.125 9 1944 Unknown [id number] 2.16.840.1.645889.3.579.2.125 9 1944 Unknown [id number] 2.16.840.1.937694.3.579.2.125 9 1944 Unknown [id number] 2.16.840.1.695224.3.579.2.125 9 1944 Unknown [id number] 2.16.840.1.650749.3.579.2.125 9 1944 Unknown [id number] 2.16.840.1.964045.3.579.2.128 6 1944 Unknown [id number] 2.16.840.1.638251.3.579.2.196 1944 Unknown [id number] 1945 Unknown [id number] 1945 Unknown [id number] 1945 Unknown [id number] Social History Date Type Detail Facility Start: 09-17-2022 Tobacco smoking stat [facility] Never smoked tobacco [facility] Start: 09-17-2022 Tobacco use and exposure Smokeless t obacco non-user [facility] Start: 04-18-2023 Alcohol intake Current drinke r of alcohol (finding) [facility] Start: 10-15-2022 End: 04-18-2023 Alcohol intake [facility] Start: 10-15-2022 End: 04-18-2023 Tobacco use panel [facility] Start: 01-06-2023 Alcohol Comment Caffeine intak e: 1-2 cups per day [facility] Start: 1945 Sex Assigned At Not on file [facility] Telephone encounter Note 04-27-2023 Telephone Encounter - Pati Valentino - 04/27/2023 1:09 PM EST Note Date & Type Note Facility 04-27-2023 Telephone encount er Note Called pt and informed [facility] Healthcare Note 04-27-2023 Telephone Encounter - Pati [...] [place]. Allergies: NKDA . 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 Allergies: NKDA . Her call back [phone] [facility] Telephone encounter Note 04-21-2023 Telephone Encounter - Shari Mckeon MD - 04/21/2023 7:05 PM EST Note Date & Type Note Facility 04-21-2023 Telephone encount er Note Refills sent. [facility] Healthcare Note 04-21-2023 Telephone Encounter - Shari Mckeon MD - 04/21/2023 7:05 PM EST Note Date & Type Note Facility 04-21-2023 Miscellaneous Notes Formattin g of this note might be different from the original. Refills sent. documented in this encounter [facility] Healthcare History and physical note 07-27-2022 Note Date & Type Note Facility 07-27-2022 Note [id number] [facility] Clinical Note 07-26-2022 Note Date & Type Note Facility 07-26-2022 Note [facility] SURGERY Clinical Discharge Summary PERSON INFORMATION Name RADHA CUADRA Age 77 Years 1945 Sex FEMALE Language Scottish PCP SHARI MCKEON Marital Status Med Service Ambulatory Surgery Acct# Arrival 07/26/2022 05:52:10 Visit Reason SURGERY - LEFT REVERSE TOTAL SHOULDER - ARTHREX Acuity LOS 053 02:57 Address: [address] [place] [address] [place] [id number] Comment: PROVIDER INFORMATION VITALS INFORMATION Vital Sign [...] REASON INCOMPLETE INFORMATION (more content not included)... [facility] Clinical Note 02-01-2020 Note Date & [...] position. 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 Bite block was placed in her mouth. [...] patient tolerated the procedure without any difficulties. [facility] SIGNED AND APPROVED BY: DR CARLOS EDUARDO MENENDEZ . 02/07/2020 09:15:00 [facility] Evaluation note Note Date & Type Note [...] section and content) DATE CREATED AUTHOR 05/27/2018 [facility] DATE CREATED AUTHOR AUTHOR'S ORGANIZ ATION 11/06/2020 [facility] DATE CREATED AUTHOR AUTHOR'S ORGANIZ ATION 05/12/2022 [facility] DATE CREATED AUTHOR AUTHOR'S ORGANIZ ATION 07/28/2022 [facility] DATE CREATED AUTHOR AUTHOR'S ORGANIZ ATION 09/26/2023 [facility] EPIC DATE CREATED AUTHOR AUTHOR'S ORGANIZ ATION 10/06/2023 [facility] DATE CREATED AUTHOR AUTHOR'S ORGANIZ ATION 12/04/2023 [facility] Reason for Visit (unrecogniz ed section and content) Reason Comments Med Refill Reason 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 Care Teams (unrecognized sec tion and content) Hand 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 [facility] [employer] [facility]. provides no warranty or guarantee of the accuracy or completeness of information in this document.
[2023-12-12 06:49] VITALS: BP 138/73; PULSE 71; TEMP 36.6; O2SAT 97
[2023-12-12 07:32] VITALS: BP 145/66; PULSE 81; O2SAT 96
[2023-12-12 07:34] VITALS: BP 152/85; PULSE 76; O2SAT 95
[2023-12-12] MEDS: BUPIVACAINE HCL 0.25% PF 25 MG/10 ML VIAL 8 ML INJ (07:37)
[2023-12-12] MEDS: LIDOCAINE HCL 2% 400 MG/20 ML MDV INJ (07:37)
--- NOTE | 2023-12-12 07:38 | W.PM.PROCNOT ---
Date of procedure: 12/12/23 Pre-op diagnosis: Pain due to lumbar spondylosis without myelopathy Post-op diagnosis: same as pre-op Procedure: Procedure: Bilateral L1-2, L2-3 medial branch block Medications: Bupivacaine 0.25% 6cc The patient was seen and examined in the preoperative holding area.? An informed consent was obtained and placed on the chart.? The patient was brought to the medical procedure unit and placed in the prone position.? A timeout was completed verifying correct patient, procedure site, positioning, plan, and special equipment.? Using aseptic technique, the needle was placed at left L1. Under direct fluoroscopic visualization a Quincke-tipped spinal needle was advanced to the junction of the superior articulating process with the transverse process at the designated medial branch segment.? Preceded by negative aspiration, the above-mentioned injectate was placed in 1 mL aliquots.? The procedure was repeated at left L2, 3.? The needle was removed and insertion site was covered. The same procedure, at the same levels, was completed on the right side. The patient was taken to the postprocedural recovery area and monitored for an appropriate length of time before found suitable for discharge in the company of a responsible adult. Anesthesia: Local Surgeon: Kei Espana Pathology: none sent Condition: stable Disposition: no change
== END 2023-12-12 07:40 | disposition home or self-care (01) ==
LOC: SURGOUT 06:45
PROVIDERS: PCP Family Medicine; Visit Provider Anesthesiology
DX: M47.816 Spondylosis without myelopathy or radiculopathy, lumbar region (principal)
CPT/HCPCS: 64493; 64494; J0665

== ENCOUNTER 2023-12-14 07:45 | Outpatient (OUT) | payer MEDICARE, SELFPAY ==
--- OUTSIDE RECORDS SUMMARY | 2023-12-14 07:48 | XMS_ITS | CCD ---
Author Organization [facility] Care Team Providers Care Research Development Manager Name Role Phone PHYSICIAN, DEFAULT Admitting [...] able Marisa Ramos Attending Unavail able Alessandra COMMUNITY SUPPORT ASSOCIATE, Alexander Plascencia Unavailable Shari Mckeon MD Primary Care Provider ALEXANDER APARICIO Attending Unavailab le SHARI MCKEON Attending SHARI Hagan Referring Unavailable PATRICIAMARISA Attending Unavailable LINCOLNMARISA Referring Unavailable [facility]ending [facility], MARISA Plascencia Attending Unavailable [facility], ALEXANDER Plascencia Attending UnavailChinle Comprehensive Health Care FacilityKORTNEY, ALEXANDER Plascencia Referring Unavailab [facility], MARISA Plascencia Attending Unavailable MARISA RAMOS Referring Unavailable PATRICIA, MARISA Plascencia Attending Unavailable ALEXANDER APARICIO Referring [facility] SHARI Carvalho Primary Care Unavailable Jovi JAIMES, Kei Brian Attending Unavailable Giedraitis , Kei Brian Attending Unavailable Giedraitis , Andnaina Brian Attending Unavailable Gieditis , Andrius Brian Attending Unavailable Gieditis , Andrius Brian Attending Unavailable Allergies Allergy Classification Reported Allergen(s) Allergy Type Date of Onset Reaction(s) Facility (2 sources) Alendronate; Translations: [Fosamax] Drug Allergy [facility] Repository (3 sources) Alendronate Drug Allergy 09-10-2020 Unknown [facility] Medications Current Medications Medication Drug Class(es) Dates Sig (Normalized) Sig (Original) acetaminophen 325 mg / butalbital 50 mg / caffeine 40 mg oral tablet (3 sources) Barbiturate, Central Nervous System Stimulant, Methylxanthine take 1 tablet by mouth every four hours as needed butalbital-acetamin ophen-caffeine 50-325-40 MG tablet Take 1 tablet by mouth every 4 (four) hours if needed (headache). Active amoxicillin 500 mg oral tablet (1 source) Penicillin-class Antibacterial Start: 04-27-2023 End: 05-04-2023 take 4 tablets by mouth once amoxicillin (Amoxil) 500 MG tablet Indications: S/P reverse total shoulder arthroplasty, left 4 tabs PO once 30-60 mins before procedure 4 tablet 0 04/27/2023 05/04/2023 Active atorvastatin 20 mg oral tablet (3 sources) HMG-CoA Reductase Inhibitor Start: 09-28-2023 take 1 tablet by mouth once daily atorvastatin (Lipitor) 20 MG tablet Indications: Mixed hyperlipidemia (CMS/HCC) take 1 tablet by mouth once daily 90 tablet 09/28/2023 Active Start: 04-11-2023 take 1 tablet by abhinav th once daily atorvastatin (Lipitor) 20 MG tablet Indications: Mixed hyperlipidemia (CMS/HCC) take 1 tablet by mouth once daily 90 tablet 0 04/11/2023 Active azithromycin 250 mg oral tablet (1 source) Macrolide Antimicrobial Start: 04-18-2023 End: 04-23-2023 take 2 tablets by mouth once daily, then take 1 tablet by mouth once daily azithromycin (Zithromax) 250 MG tablet Indications: Upper respiratory tract infection, unspecified type Take 2 tablets (500 mg) by mouth Daily for 1 day, THEN 1 tablet (250 mg) Daily for 4 days. 6 tablet 0 04/18/2023 04/23/2023 Active CALCIUM-VITAMIN D PO (3 sources) Start: 06-29-2022 CALCIUM-VITAMIN D PO 2 (two) times a day. 06/29/2022 Active Start: 06-29-2022 CALCIUM-VITAMI N D PO 2 (two) times a day. 0 06/29/2022 Active diazePAM 5 mg oral tablet (2 sources) Benzodiazepine Start: 02-08-2023 diazePAM (Valium) 5 MG tablet Indications: Chronic midline low back pain without sciatica 1 tablet po q.6 hours p.r.n. muscle spasms 20 tablet 0 02/08/2023 Active 60 actuat fluticasone propionate 0.25 mg/actuat / salmeterol 0.05 mg/actuat dry powder inhaler (3 sources) Corticosteroid, beta2-Adrenergic Agonist Start: 12-09-2023 take 1 puff(s) by inhalation in the morning Fluticasone-Salme terol 250-50 MCG/ACT aerosol powder Indications: Mild intermittent asthma, unspecified whether complicated (CMS/HCC) Inhale 1 puff in the morning and 1 puff before bedtime. 180 each 1 12/09/2023 Active Start: 04-08-2023 End: 07-07-2023 take 1 puff(s) by inhalation in the morning Fluticasone-Salmeterol 250-50 MCG/ACT aerosol powder Indications: Mild intermittent asthma, unspecified whether complicated (CMS/HCC) Inhale 1 puff in the morning and 1 puff before bedtime. 60 each 0 04/08/2023 07/07/2023 Active hydroCHLOROthiazide 12.5 mg / losartan potassium 100 mg oral tablet (4 sources) Thiazide Diuretic, Angiotensin 2 Receptor Aguilar Start: 11-17-2023 take 1 tablet by mouth in the morning losartan-hydroCHLOROthiazide (Hyzaar) 100-12.5 MG tablet Indications: Essential hypertension (CMS/HCC) Take 1 tablet by mouth in the morning. 100 tablet 1 11/17/2023 Active Start: 04-21-2023 take 1 tablet by abhinav th once daily in the morning losartan-hydroCHLOROthiazide (Hyzaar) 100-12.5 MG tablet Indications: Essential hypertension (CMS/HCC) take 1 tablet by mouth every morning 100 tablet 1 04/21/2023 Active Start: 01-18-2023 End: 04-21-2023 take 1 tablet by mouth in the morning losartan-hydroCHLOROthiazide (Hyzaar) 100-12.5 MG tablet Indications: Essential hypertension (CMS/HCC) Take 1 tablet by mouth in the morning. 100 tablet 0 01/18/2023 04/21/2023 Discontinued Multiple Vitamin (multivitamin) capsule (3 sources) take 1 capsule by mouth in the morning Multiple Vitamin (multivitamin) capsule Take 1 capsule by mouth in the morning. Active take 1 capsule by mouth in the m orning Multiple Vitamin (multivitamin) capsule Take 1 capsule by mouth in the morning. 0 Active rimegepant 75 mg disintegrating oral tablet (2 sources) Start: 01-06-2023 take 1 tablet by mouth once daily as needed Rimegepant Sulfate (Nurtec) 75 MG tablet dispersible Indications: Migraine without aura and without status migrainosus, not intractable (CMS/HCC) Take 75 mg by mouth Daily as needed (as needed for migraines). 10 tablet 0 01/06/2023 Active traZODone hydrochloride 50 mg oral tablet (3 sources) Serotonin Reuptake Inhibitor Start: 09-26-2023 take 1 tablet by mouth at bedtime traZODone (Desyrel) 50 MG tablet Indications: Primary insomnia Take 1 tablet (50 mg) by mouth at bedtime 90 tablet 1 09/26/2023 Active Start: 04-08-2023 take 1 tablet by abhinav th at bedtime traZODone (Desyrel) 50 MG tablet Indications: Primary insomnia Take 1 tablet (50 mg) by mouth at bedtime 90 tablet 1 04/08/2023 Active turmeric extract 500 mg oral capsule (3 sources) Turmeric 500 MG tablet Orally Active Turmeric 500 MG tablet Orally 0 Active Problems Active Problems Problem Classification Problem Date Documented Da te Episodic/Chronic Asthma (6 sources) Mild intermittent asthma; Translations: [Mild intermittent asthma with status asthmaticus] Onset: 06-12-2017 Resolved: 06-17-2023 07-15-2022 Chronic Chronic kidney disease (3 sources) Chronic kidney disease stage 3B ; Translations: [Stage 3b chronic kidney disease (HCC)] Onset: 07-15-2022 07-15-2022 Chronic Chronic obstructive pulmonary disease and bronchiectasis (4 sources) Chronic obstructive pulmonary disease, unspecified; Translations: [Chronic obstructive lung disease] Onset: 05-18-2011 07-15-2022 Chronic Disorders of lipid metabolism (6 sources) Pure hypercholesterolemi a; Translations: [Pure hypercholesterolemi a, unspecified] Onset: 07-15-2022 07-15-2022 Chronic Essential hypertension (8 sources) Essential (primary) hypertension; Translations: [Essential hypertension] Onset: 02-14-2020 Resolved: 06-17-2023 04-21-2023 Chronic Headache; including migraine (13 sources) Migraine, unspecified, not intractable, without status migrainosus; Translations: [Migraine without aura, not refractory ] Onset: 03-29-2015 Resolved: 06-17-2023 07-15-2022 Chronic Heart valve disorders (20 sources) Nonrheumatic aortic (valve) stenosis; Translations: [Nonrheumatic aortic (valve) stenosis with insufficiency] Onset: 06-12-2017 Resolved: 06-17-2023 Chronic Nonspecific chest pain (1 source) Chest pain, unspecified; Translations: [Chest pain, unspecified] Onset: 10-04-2023 Episodic Osteoarthritis (13 sources) Unspecified osteoarthritis, unspecified site; Translations: [Arthritis of left knee] Onset: 06-22-2017 Resolved: 06-17-2023 07-15-2022 Chronic Osteoporosis (6 sources) Senile osteoporosis; Translations: [Age-related osteoporosis without current pathological fracture] Onset: 11-04-2017 Resolved: 06-17-2023 07-15-2022 Chronic Other connective tissue disease (3 sources) Artificial knee joint present; Translations: [Presence of unspecified artificial knee joint] Onset: 07-15-2022 07-15-2022 Chronic Other connective tissue disease (1 source) History of reverse prosthetic total arthroplasty of left shoulder; Translations: [Presence of left artificial shoulder joint] 04-27-2023 Chronic Other hereditary and degenerative nervous system conditions (6 sources) Restless legs; Translations: [Restless legs syndrome] Onset: 10-26-2017 Resolved: 06-17-2023 07-15-2022 Chronic Other lower respiratory disease (5 sources) Shortness of breath; Translations: [SHORTNESS OF BREATH] Onset: 09-30-2020 Episodic Other nervous system disorders (3 sources) Difficulty walking; Translations: [Difficulty in walking, not elsewhere classified] Onset: 07-15-2022 07-15-2022 Chronic Other nervous system disorders (3 sources) Chronic pain; Translations: [Other chronic pain] Onset: 08-03-2022 08-03-2022 Chronic Residual codes; unclassified (3 sources) Insomnia; Translations: [Other insomnia] Onset: 07-15-2022 07-15-2022 Chronic Past or Other Problems Problem Classification Problem Date Documented Da te Episodic/Chronic Fever of unknown origin (4 sources) Fever, unspecified; Translations: [FEVER UNSPECIFIED] Onset: 01-02-2020 Episodic Fluid and electrolyte disorders (1 source) Dehydration; Translations: [DEHYDRATION] Onset: 01-04-2020 Episodic Gastritis and duodenitis (4 sources) Gastritis, unspecified, without bleeding; Translations: [Bile-induced gastritis] Onset: 02-14-2020 Resolved: 06-17-2023 07-15-2022 Episodic Heart valve disorders (6 sources) Systolic murmur; Translations: [Cardiac murmur, unspecified] Onset: 07-15-2022 Resolved: 06-17-2023 07-15-2022 Episodic Immunizations and screening for infectious disease (1 source) Contact with and (suspected) exposure to other viral communicable diseases; Translations: [CONTCT EXPS OTH VIRL COMMUNICABL DZ] Onset: 01-30-2020 Episodic Mood disorders (1 source) Mood disorders Onset: 06-17-2023 06-17-2023 Other aftercare (1 source) Other terminal supervisor (current) drug therapy; Translations: [OTH TANK CALIBRATOR CURRENT DRUG THERAPY] Onset: 02-14-2020 Episodic Other aftercare (1 source) assisted (current) use of aspirin; Translations: [ASSISTED CURRENT USE OF ASPIRIN] Onset: 01-04-2020 Episodic Other gastrointestinal disorders (4 sources) Dysphagia, unspecified; Translations: [DYSPHAGIA UNSPECIFIED] Onset: 02-01-2020 Episodic Other gastrointestinal disorders (3 sources) Dysphagia; Translations: [Dysphagia, unspecified] Onset: 07-15-2022 Resolved: 06-17-2023 07-15-2022 Episodic Other lower respiratory disease (1 source) Cough; Translations: [COUGH] Onset: 01-04-2020 Episodic Other non-traumatic joint disorders (3 sources) Derangement of left shoulder joint; Translations: [Other specific joint derangements of left shoulder, not elsewhere classified] Onset: 07-15-2022 Resolved: 06-17-2023 07-15-2022 Chronic Residual codes; unclassified (3 sources) Poor sleep pattern; Translations: [Other sleep disorders] Onset: 08-21-2020 Resolved: 06-17-2023 08-03-2022 Chronic Residual codes; unclassified (3 sources) Postmenopausal state; Translations: [Asymptomatic menopausal state] Onset: 06-28-2015 Resolved: 06-17-2023 08-03-2022 Episodic Urinary tract infections (1 source) Urinary tract infection, site not specified; Translations: [UTI SITE NOT SPECIFIED] Onset: 01-04-2020 Episodic Results Test Name Value Interpretation Reference Range Facility XR CHEST 2 VIEWSon XR CHEST 2 VIEWS XR - CHEST [...] as detailed. ELECTRONICALLY SIGNED BY: Shawn Preciado, Normal Not Available XR CHEST 2 VIEWSon [...] Findings suggesting COPD. ELECTRONICALLY SIGNED BY: Shawn Preciado, DO Normal Not Available XR LUMBAR SPINE [...] Not Available Consent Formson 07-27-2022 Consent Forms [id number][facility] Discharge Instructions [id number]#1.[facility] MAGR Intraoperative Recordon 07-27-2022 MAGR Intraoperative Record MAGR Intra-Op Record Summary Primary Physician: Marisa Ramos DO Finalized Date/Time: 07/27/22 09:45:04 Pt. Name: RADHA CUADRA/Sex: 1945 FEMALE Med Rec #: [id number] Physician: Marisa Ramos DO Financial #: [id number] Pt. Type: D Room/Bed: / Admit/Disch: 07/26/22 [...] Marisa Ramos William MD Derry RN, Jania A Kvng DO Role Performed Surgeon - Primary Anesthesiologist of Outside Rigger Record Time In 07/26/22 07:39:00 07/26/22 07:39:00 07/26/22 07:39:00 Time Out 07/26/22 09:49:00 07/26/22 09:49:00 07/26/22 09:49:00 Procedure Arthroplasty Shoulder Arthroplasty Shoulder Arthroplasty Shoulder Total Reverse(Left) Total Reverse(Left) Total Reverse(Left) Last Modified By: Mode GOLDMAN, Jania Coello RN, Jnaia Conde RN 07/26/22 09:49:54 07/26/22 09:49:54 07/26/22 09:49:54 Entry 4 Entry 5 Entry 6 Case Attendee Fahad CLUB CAR ATTENDANT, Lisa Martinez CST, CST CLUB CAR ATTENDANT/CSFA, ZOE Worhty CLUB CAR ATTENDANT Role Performed Scrub Personnel Scrub Personnel Sales Representative [employer] Time In 07/26/22 07:39:00 07/26/22 07:39:00 07/26/22 07:39:00 Time Out 07/26/22 09:49:00 07/26/22 09:49:00 07/26/22 09:49:00 Procedure Arthroplasty Shoulder Arthroplasty Shoulder Arthroplasty Shoulder Total Reverse(Left) Total Reverse(Left) Total Reverse(Left) Last Modified By: Mode GOLDMAN, Jania Coello RN, Jania Conde RN 07/26/22 09:49:54 07/26/22 09:49:54 07/26/22 09:49:54 General Comments: Nicholas Quintanilla rep Surgical Procedures MAGR Pre-Care Text: A.20 [...] to chemical sources (more content not included)... Normal [facility] Outside Recordson 07-27-2022 Outside Records [id number]#1.[address] [place] [address] Provider Orderson 07-27-2022 Provider Orders [id number]#1.[facility] Telemetry Stripson 3 Telemetry Strips [id number]#1.[facility] Anesthesia Noteon 07-26-2022 Anesthesia Note Patient: [...] 07/26/2022 11:51 EDT] Remy Da Silva MD [facility] Anesthesia Note Patient: RADHA CUADRA Age: 77 [...] obstructive pulmonary disease (COPD) / SNOMED CT 40584594 / Confirmed Heart murmur / SNOMED CT 339341439 / Confirmed Hyperlipidemia / SNOMED CT 61981021 / Confirmed HTN (hypertension) / SNOMED CT 3991778054 / Confirmed Histories Family History: COPD Mother Father Procedure history: Arthroplasty of left knee (2986783973). Arthroplasty of right knee (0685190423). Carpal tunnel release (296876112). Comments: 06/29/2022 13:15 Dorota De Leon RN bilat Colonoscopy (348755765). EGD - Esophagogastroduodenoscopy (9832745865). Disorder of rotator cuff (4724418617). Comments: 06/29/2022 13:14 Dorota De Leon RN [...] Oriented. Review / Management Laboratory Results Plan [employer]esthesiologists#(ASA) physical status classification: Class [...] 07/26/2022 08:23 EDT] Remy Da Silva MD [facility] Inpatient Patient Summaryon 07-26-2022 [place] [address] Patient Discharge Instructions Name: RADHA CUADRA : 1945 Patient Address: [address] [place] [address] Primary Care Provider: Name: SHARI MCKEON After you are discharged if you find you have any questions, please, call [phone] ext [phone] to speak to a nurse. Discharge Diagnosis: [...] alcohol and/or drug addiction problems; contact the [facility] 04/10 Crisis Hotline -Text 4HJPB to 935779. If you received any narcotics, sedation, or [...] business decisions or sign any legal documents [facility] would like to thank you for allowing us to assist you with your healthcare needs. The following includes patient education materials and information regarding your injury/illness. RADHA CUADRA has been given the following list of follow-up instructions, prescriptions, and patient education materials: Follow-up Instructions With: Address: When: Marisa Ramos [address] [place] [address], [address] [place] [address] Business (1) 08/03/2022 11:00 AM Medications During [...] fingers frequently (more content not included)... [facility] MAGR Intra-Op Record Summary Primary Physician: Finalized Date/Time: 07/26/22 07:42:32 Pt. Name: RADHA CUADRA /Sex: 1945 FEMALE Med Rec #: [id number] Physician: Marisa Ramos DO Financial #: [id number] Pt. Type: D Room/Bed: / Admit/Disch: 07/26/22 [...] Warga, Laura RN Role Performed Anesthesiologist of Outside Rigger Outside Rigger Record Time In 07/26/22 07:13:00 07/26/22 07:13:00 07/26/22 07:13:00 Time Out 07/26/22 07:38:00 07/26/22 07:38:00 07/26/22 07:38:00 Procedure Interscalene Block(Left) Interscalene Block(Left) Interscalene Block(Left) Last Modified By: Kimberley Le RN, Margaret RN Klaehn, Margaret RN 07/26/22 07:39:31 07/26/22 07:39:31 07/26/22 07:39:31 Entry 4 Case Attendee Amy Bates RN Role Performed Outside Rigger Time In 07/26/22 07:13:00 Time Out 07/26/22 [...] Stretcher Post-op Destinat (more content not included)... [facility] MAGR PACU Recordon MAGR PACU Record MAGR PACU Record [facility] Primary Physician: Marisa Ramos DO Finalized Date/Time: 07/26/22 10:38:28 Pt. Name: CHRISTI RADHAJANELLE Dangelo/Sex: 1945 FEMALE Med Rec #: [id number] Physician: Marisa Ramos DO Financial #: [id number] Pt. Type: D Room/Bed: / Admit/Disch: 07/26/22 05:52:10 - Institution: PACU Case Times MAGR Entry 1 In PACU I 07/26/22 09:51:00 Discharge from PACU 07/26/22 10:35:00 I Last Modified By: Warner Bolton RN 07/26/22 10:38:23 Finalized By: Warner Bolton RN Document Signatures Signed By: Warner Bolton RN 07/26/22 10:38 [facility] MAGR Postoperative Recordon 07-26-2022 MAGR Postoperative Record MAGR Phase II Record Summary Primary Physician: Marisa Ramos DO Finalized Date/Time: 07/26/22 12:01:17 Pt. Name: LIV CUADRAJANELLE Dangelo/Sex: 1945 FEMALE Med Rec #: [id number] Physician: Marisa Ramos DO Financial #: [id number] Pt. Type: D Room/Bed: / Admit/Disch: 07/26/22 [...] Annamarie Samuels RN [facility]/26/22 [facility] MAGR Preoperative Record MAGR Pre-Op Record Summary Primary Physician: Marisa Ramos DO Finalized Date/Time: 07/26/22 07:44:03 Pt. Name: LIV CUADRAJANELLE Dangelo/Sex: 1945 FEMALE Med Rec #: [id number] Physician: Marisa Ramos DO Financial #: [id number] Pt. Type: D Room/Bed: / Admit/Disch: 07/26/22 [...] consent correct. General Comments: Pt arrives to psw ambulatory. Pt denies cp, sob, cough or flu like symptoms. She also pacemaker/defibillator or sleep apnea. Finalized By: Kimberley Le RN Document Signatures Signed By: Kimberley Le RN 07/26/22 07:44 Normal [facility] Operative Report - Surgeon/P pablo 07-26-2022 [...] Estimated blood loss: 50 Complications: None Findings: Vmwu-[id number] in the glenohumeral joint Procedure summary: Patient [...] on: 07/26/2022 09:35 EDT] Marisa Ramos DO [facility] Patient Handouton 07-26-[address] MESSINA [...] or concerns, please call the office at [phone] 7. Follow up as scheduled [facility] XR Shoulder 1 View Lefton XR Shoulder [...] MD 07/27/22 4:01 pm Technologist: JORDON RUVALCABA [facility] Comment on above: Order Comment: chey lt status post shoulder replacement Progress Note - Nurseon 07-12 Progress Note - Nurse Pre-op call made to pt. Pt states understanding of arrival time of 0600 on 07/26/22 and NPO after MN. [Electronically Signed on: 07/23/2022 09:27 EDT] Shantel Gonsalez RN L [Verified on: 07/23/2022 09:27 EDT] Shantel Gonsalez RN L [facility] Coding Summaryon 07-02-2022 Coding Summary HTMLBase 64 TquzgeabQBn5jAh+PGhlYWQ+PE1F UPSdJ41wjELjeM0FR7jUZH3PBVBF HODVFF6UIT2ahVS1EUbfD0GrvcOg IydixUCmVI56WAz5LQT2lJjyMPkk bX3rvSYdW8h0KpBzXS04aP46PIig FCRsKhI5QnGbxbpnlEQw U6qjVbJghOSsWjm+PHRhYmxlIHdp KRRiGBbuURSjMuCmhVkkCX5yXe6d ZGVyLWNvbGxhcHNlOiBj n0emFWCiFWdpPD6xvGkrD7EyeYX4 OPUea8x8Rm11kZO+OWJzSFM1fMkz VLgsf978ZpLnq2ajQPD8 uHIeDNpzCPT5P57ag1T2WMApQHJs WBQ7uDC7hG3uvHoobdogT6IxoBEh VsH4LWK5kHPxoP9whIuf vnxgaW0tQjk+L62IZN9FJBQQHN3R Bcr9V1OkFqskiUQ+HO79OMLuJT93 dTArhZHew8yrnYt8CvBa FSThQDH0uDzhMTyjr8ZpGOXzC71w kSLxj8H8EZHqhOksxUPaGeIzdEJ0 dY3qHCeglfvmq1oprfaz Vsjpz8gkyl66wQ55P87fIXabPLNz HUL2AIBfKPAqmDpudq5knW0gWj0+ NIugk4xrj3tmjFn1EhWy HAQgflSjuJgtWKA7k9KiWz13J8Wg lFuih2WwKzm9qv60lJLdw6R9jWC0 GHyrQJQzdH7lFHrbUcU7 GFKkMlBgeX53bNHfQNhpYv4hpIkh cSkdSA2cSIDfwmmkUDTpkR6dQFLq lROyrBjtXN5qSAXnaetz v473XfHyGRH6ZCOzwHBjI4DaiE7q ZmGdMWYbHCEvW4WpkCLvPQnqC222 LXtoDiG3MBXxmtDrL9Vo SADuyZhtXuQ3f5K1Qr0Ko4Yjoqnf BBW1GDowFEB7PgKuEuHfJwO7M5Mc Utr6VZFnoHuxSB9lR3St BNNvbhynpugkkML2KOIcEDUtnK66 tUCyNIubVg9lt2A3o708SLMvUZKg qQ92Cz7saExhTAXnhICF rV1crloyw0mwdumsWrNwXGLzKAt5 UGd8EIWfhMtlQlFaSKW4BoY1UZO3 fCGtsZ2ixTveuzoxrQ2g Oyc+G02hcU5xSUK3KWR8kntxZTWq phToES83CF49N6AmXcwwuXGhbXL+ BQHhrbKcxVjmOR8bOuOv s3svh2ZpZOpxH8XzHZWmUCknMqq5 WRNmWNC9mBE8aC3aBENeRGexv3E1 iSH9T6ReneGfgu7wc4xt DWUuFScjA07xiEGdh6F9LKZlzUF5 FNKnbKbdWzBhlN84Ksf+PGNvbGdy c3TfSejat8lwp8bckQk3 RgTuGCDhzgDeyKnfTVJ9f5HyTh55 K00gJBakNEXjUXWpDJHiISSfoGzf ek9kzJ1cGl1+PGNvbCB3 yWE6wJ8kUZWgRkZ5RQzeA922DpUk eWBoEidyz8nsg3wahJx8ThBeENUt drUkqSdmNOW1j7QbFn80 Q12nSCxxXJGcFJQyZSWvEDAzgIhj zy6gfW4mWo4+ID7ww4jcxo21xC05 dHI+MHWbYAC4hEzrASpo ELPmyQ2nYXieIiP6ISDsYpPjoN05 wVRlSAclFf2hvFigjInmSA7nLTRa kmvvu300DiKkd9mmBEHq fDOwAMioRKT0P50vg5K8PKWfJIVc BHN6oHM9qF4deNuuiptzkWPzlPbd yjWayMhqAWvwPYrzO460 IHRvcDsnPlBhdGllbnQgTmFtZTo8 J5GrAej1KSAfoBmeCK0lpMBpLFfp Cd6ybOaliPdwOC2fJHVw koqgz101MpQzw3boOTEzxUOtGAve YGI8B65lj0R5VNNwMBYrFOM8dZO0 mS8kbJlfyhlapTEvqQtw qgCaeWklNOfyJOpzP851EEZwaUer UdKjkkSqVIKxzUF2VM67TF97tVQs q5I8sVL7A8CiESYldabc dxfbjIM0OOYbVGKdoP81Al1zgVtv Ab9gKRWeLWB1TEChoYKdT8JnpV2x VhPkOPQoFHEnG7WtpERh IBxtB151FSnqNtW8PKNvayTyR5Ju WVStuGeeHoI3b1J9Pj9SB5D4JV92 LB26jMXgu6P2nTR4F1Ax HHBhpnuyvlwlbSY3PNAtMQStpE89 Dj8jtXivJf2zOJGxEAJ5TJCeoEEx E5IobD5mPsBuHMAbQTVr P9OodLCoFHmwS821KBikEmM2PRVu paRnR6LeCKEqaUniJyV9a4C1Vt1U LZo5OV13GK65jSGua7U7 dVA9B1WwMFThofmtqdkleRF0JMMd CBPgwU16Ta0yaKhxCs1iBGFbPQF7 LESybPSvN7YixI2fKjKt AIDfLLKyM3OmjFLiGZetQ003DUaj KmX5GXUwtfEqL0FyAUDxpUsiEsS6 m3K6Ni7ULQRhMK45YDS7 iZQ2FR88EY87T6DxEohdhCPtfVZ+ PHRhYmxlIHdpZHRoPScxMDAlJyBz cCmyLL6lOv1cRWAuPHMd wUqdyBLuNdRxj1ecPJSyIQveFB4k xCatB7AglHV5TBOjx0h7Ep39V46h L0AnnSQ+DNNtaIL0fYZ0 sT1eKmLlHoC4KFvrC463EsNktTMm Qhshn2rfa4tnxEc2AdZ2OJOdntBf xVpbOZS0d0ElSg28O83i ASasJDMqEJKrCHHaURUadFdgpx1t wZ6tOw5+PQDusRW7oBJ8zR5jEgIs UrW3ZOslH204YgSgjGWi Xprfg0gux9xloRh2UxVsWMPnxfVl vGzyTMN6r7YfHe66O6WcbXnbp9Vf Uhn1nt45fMAex7W1wOK5 Q4RvQWWgyhhmoFQdaSxbII6cJVQh noxbRCZbzS6qZMSnB5m2PtQvAuX8 ICsbE5JpqjV3OLZatDTv DTgvNGO5Z60fw6R2ZGHqRJEsGXW2 dIQ9hI3mhMffjcgwqKPxiLcnrjKg hZheLVniHKyqS373NGGs yGivYUJacK9lTSKasZNjiNnoRV8n TZNbxyczMkaDYIJqPRiFSIjtAR0O RNe9F0LgNrv4VSIjdLxl IT1jcYZyYFfqLm3omVbmhUktMO3q LYOwuzamUEFieK6aOXNdcHPcfBky MD1rZQQrbmfov062BnCr LNV7ZLGluRRhC4WwlI9cHcMxDIYa IETrW8IevFUyCWprH521RYfuCtY3 EFVlfkGiN2XoIPXnnKkd BdI0h7H4Pf4nTe8lXi5hXBD4RI51 OQ13zFAsz6I9lNG1Q0AfLYEahznh rejpmQT9DPGnNYIkpS82 yFMqEZajZw5nc3V0f469TCDbPDCc tH43Zu1phBkcIDXbmBHTpA1isucx e9ssyhkrRbQoCAHgRHk1 LYl5JOEizArwZjCaXKN2MzL0OYL9 oXZftG5ocDoiwkrrlK3mDfy+Nzgg RRQbprB7Z2NbApr5HXZn oMotJB6xpPKsZXevDj7eiCtolTks FZ6nIDYbstfaITIixC1kQDUcxLMf dQvoBW5lFCVbxnrqs051 HfOdXKM6KSZgmQEfR5AhmE3zOyLx BTQcRKDtS5BacEAbKHtaM297NIme CdJ2QCQwwfGlT9ZoPCBn gEowOeT2f1Y1Ie6GNE3DUOK9K5Xm Rud9VKYepZncOF4niHHnNFtbZd3t kQsdoHwuWL3jPVVcbcui LUHogD9jTDPfgEJvbQqeWZ1sEOTz vychj059UgKqNWX5NYLozTTpV9Sm lJ3xUqXgYRVnYJRqV3Fu bCUaLWueK190BGvwAkF5DWOwhsCn P0PnYUWpnTnnMrH0n4R0Wn3OZUtm dGQ+EJ99yv17V3SnXuhh Kzl8KICnGIE2rEY0tZ5zDQQdPEkd e9G4jDG2O3LsdfZmvs2jt2imMNAd WRkaU88nyYNpp9B6HWXk cBC1INXwsYtbMkPaiP51Acf+PGNv mQysb2VvOdqzj7ffv6bjvUb9TwZl LZZzoyOprArnGMM1u8Cv Ud27F68iKFzyCFWjSMMmMDUaKJEg pKujam2iuQ0aUr6+QRYxgHY5eCV3 oZ6xAjLrKjR8HUxuE981 JvGwcLEpImtwy9riy3diyWm9LsJo FZIajhQyrPqiVAL5r2ZzWo41W9Np lLzib2OzDyz6zv27fUWz z7T8lVU7J5UqUXMvjmrlbUCnhXcd SN7uLYNhvjqtVYGemC4xZWEgC1n5 LtBfFkY3JYwkE5FlxoJ2 IDWolEXvYMKfeEUGtY5dsxmwi2fj ijnqReSpPHNeZCn4PUf2WZIqyEsy EfCwTKU5RiF0YFD6qZIj vM6ixLeudmufrY0cGvh+RIz3m9sb aSYaEM7ccMX2PA14QD31cMNuq5H3 gWP7H7VqAJVasxnswrgz gWX9ZKBvRCOjgQ56Gx1ooEqtUn9d NEIwARZ7QJQmaHOhH9NjbU2cLlMv BILwXWXdX8AjlHYeKEdl V075FWwrOmP8ZGJxmcAiB3AvBIQs kBssQuD9e1V1Fv2MPQ16PO66TS82 kCFhp1T1hDO2H2JfZSUt bgutvvgrxPU0EQKhFQGdxL98Gu1n dAzpUt0vCNWvCOB2TTGlbDPtV5Iq xN9zNwCbUDBcTDPcB5Zw gFVqZYvmH645COznYwG0YQOmdnBt S0NnVKSzjSifWgD2n3Z1Vb5PYu45 HA63FP33jKGeg4K5eYZ7 G7RhEPNgwbmywndrqDO3UQAoIPVg yW12Ra2xoKlkFz0lWHJwPBE6DMSk lODqD4BlpD7nMkBiIOTl FZDzS8UhfIDdWJupF448EMsiMkU9 KXXyprGgP4SnNNAekGtuRuJ8g2K1 Pj8LSUmdmkq0K2HjJcsc dHI+CS41OSVhZL79mSLxeXFcy0vd oYh7QuUsBRJcAFD0vDusZEwmb6Au OWVzV89pzPVxq8C8XSPq bGx (more content not included)... [facility] C MRSA Screenon 06-30-2022 C MRSA Screen Negative [facility] Comment on above: Performed By: #### 1 [id number] ####[facility] (DEFAULT)[address] [place] [address] 72553 Progress Note - Nurseon 06-12 Progress Note - Nurse Dr. Castro reviewed PAT notes for upcoming surgery 07/26/2022. No new orders at this time [Electronically Signed on: 06/30/2022 11:45 EDT] Annamarie Samuels RN [Verified on: 06/30/2022 11:45 EDT] Annamarie Samuels RN [facility] Provider Orderson 06-30-2022 Provider Orders [id number] [facility] .Auto Diff 1on 06-29-2022 Auto Grundy % 10 % Normal 03-25 [facility] Comment on above: Performed By: #### 7 [id number], [id number], [id number] ####[facility] (DEFAULT)[address] [place] [address] 73541 Baso Abs# 0.0 x10 Normal 0.0-0.2 [facility] Comment on above: Performed By: #### 7 846625, [id number], [id number] ####[facility] (DEFAULT)[address] [place] [address] 44518 Basophils/100 WBC (Bld) 0.7 % Normal 0.2-2.0 [facility] Comment on above: Performed By: #### 7 307071, [id number], [id number] ####[facility] (DEFAULT)[address] [place] [address] 74582 Eos Abs# 0.6 x10 High 0.0-0.4 [facility] Comment on above: Performed By: #### 7 111214, [id number], [id number] ####[facility] (DEFAULT)[address] [place] [address] 97238 Eosinophils/100 WBC (Bld) 8.5 % High 0.9-4.0 [facility] Comment on above: Performed By: #### 7 673209, [id number], [id number] ####[facility] (DEFAULT)[address] [place] [address] 57530 Lymph Abs# 1.6 x10 Normal 1.3-2.9 [facility] Comment on above: Performed By: #### 7 458730, [id number], [id number] ####[facility] (DEFAULT)[address] [place] [address] 01455 Lymphocytes/100 WBC (Bld) 24 % Normal 14-48 [facility] Comment on above: Performed By: #### 7 606516, [id number], [id number] ####[facility] (DEFAULT)[address] [place] [address] 36291 Grundy Abs# 0.7 x10 Normal 0.0-0.8 [facility] Comment on above: Performed By: #### 7 945741, 13685530, [id number] ####[facility] (DEFAULT)[address] [place] [address] 47939 Neut Abs# 3.8 x10 Normal 1.5-9.2 [facility] Comment on above: Performed By: #### 7 848951, [id number], [id number] ####[facility] (DEFAULT)[address] [place] [address] 79980 Neutrophils/100 WBC (Bld) 57 % Normal 44-88 [facility] Comment on above: Performed By: #### 7 336505, [id number], [id number] ####[facility] (DEFAULT)[address] [place] [address] 49312 BMP Standardon 06-29-2022 eGFR Non AA 33 mL/min/1.73m2 Invalid Interpretation Code [facility] Comment on above: Performed By: #### 7 973043, [id number], [id number] ####[facility] (DEFAULT)[address] [place] [address] 99926 eGFR AA 40 mL/min/1.73m2 Invalid Interpretation Code [facility] Comment on above: Performed By: #### 7 447431, [id number], [id number] ####[facility] (DEFAULT)[address] [place] [address] 17033 Anion gap [Moles/Vol] 8.9 mmol/L Normal 5.0-19.0 [facility] Comment on above: Performed By: #### 7 337820, 57649302, [id number] ####[facility] (DEFAULT)[address] [place] [address] 95051 Calcium [Mass/Vol] 9.3 mg/dL Normal 8.9-10.3 [facility] Comment on above: Performed By: #### 7 408818, 16695363, [id number] ####[facility] (DEFAULT)[address] [place] [address] 41947 Chloride [Moles/Vol] 102 mmol/L Normal 101-111 [facility] Comment on above: Performed By: #### 7 703309, [id number], [id number] ####[facility] (DEFAULT)[address] [place] [address] 13392 CO2 [Moles/Vol] 28 mmol/L Normal 21-32 [facility] Comment on above: Performed By: #### 7 937269, 94800185, [id number] ####[facility] (DEFAULT)[address] [place] [address] 57700 Creatinine [Mass/Vol] 1.53 mg/dL High 0.60-1.30 [facility] Comment on above: Performed By: #### 7 701662, [id number], [id number] ####[facility] (DEFAULT)[address] [place] [address] 39259 Glucose [Mass/Vol] 107.0 mg/dL Normal 74.0-118.0 [facility] Comment on above: Performed By: #### 7 115544, [id number], [id number] ####[facility] (DEFAULT)[address] [place] [address] 22748 Osmolality 279 mOsm/L Invalid Interpretation Code [facility] Comment on above: Performed By: #### 7 150006, [id number], [id number] ####[facility] (DEFAULT)[address] [place] [address] 91433 Potassium [Moles/Vol] 3.9 mmol/L Normal 3.6-5.1 [facility] Comment on above: Performed By: #### 7 700090, 58939537, [id number] ####[facility] (DEFAULT)[address] [place] [address] 96916 Sodium [Moles/Vol] 135.0 mmol/L Low 136.0-144 . 0 [facility] Comment on above: Performed By: #### 7 555585, 27715990, [id number] ####[facility] (DEFAULT)[address] [place] [address] 10355 Urea nitrogen [Mass/Vol] 36 mg/dL High 8-26 [facility] Comment on above: Performed By: #### 7 335252, 68438906, [id number] ####[facility] (DEFAULT)[address] [place] [address] 85554 Urea nitrogen/Creatinine [Mass ratio] 23.5 mg/mg High 4.6-16.2 [facility] Comment on above: Performed By: #### 7 417169, 45576532, [id number] ####[facility] (DEFAULT)[address] [place] [address] CBC w/ Auto Diffon Erythrocyte distribution width (RBC) [Ratio] 12.8 % Normal 11.5-15.0 [facility] Comment on above: Performed By: #### 7 280518, 99210471, [id number] ####[facility] (DEFAULT)[address] [place] [address] Hematocrit (Bld) [Volume fraction] 36.4 % Normal 33.7-40.4 [facility] Comment on above: Performed By: #### 7 060880, 33145065, [id number] ####[facility] (DEFAULT)[address] [place] [address] Hemoglobin (Bld) [Mass/Vol] 12.2 g/dL Normal 11.3-15.9 [facility] Comment on above: Performed By: #### 7 213638, 38686955, [id number] ####[facility] (DEFAULT)[address] [place] [address] Man Diff? Auto Invalid Interpretation Code [facility] Comment on above: Performed By: #### 7 560343, [id number], [id number] ####[facility] (DEFAULT)[address] [place] [address] 86387 MCH (RBC) [Entitic mass] 32 pg Normal 24-34 [facility] Comment on above: Performed By: #### 7 179918, 99466143, [id number] ####[facility] (DEFAULT)[address] [place] [address] 07460 MCHC (RBC) [Mass/Vol] 33 g/dL Normal 26-37 [facility] Comment on above: Performed By: #### 7 429535, 40240697, [id number] ####[facility] (DEFAULT)[address] [place] [address] 25318 MCV (RBC) [Entitic vol] 97 fL Normal 81-100 [facility] Comment on above: Performed By: #### 7 872425, 87724235, [id number] ####[facility] (DEFAULT)[address] [place] [address] 54411 Platelet 336 x10 Normal 138-427 [facility] Comment on above: Performed By: #### 7 559015, 83496339, [id number] ####[facility] (DEFAULT)[address] [place] [address] 24131 Platelet mean volume (Bld) [Entitic vol] 7.2 fL Normal 6.3-10.2 [facility] Comment on above: Performed By: #### 7 188530, 26681902, [id number] ####[facility] (DEFAULT)[address] [place] [address] 83244 RBC 3.77 x10 Normal 3.70-5.30 [facility] Comment on above: Performed By: #### 7 127502, 18933306, [id number] ####[facility] (DEFAULT)[address] [place] [address] 87707 WBC 6.7 x10 Normal 3.5-10.5 [facility] Comment on above: Performed By: #### 7 896257, 92479763, [id number] ####[facility] (DEFAULT)[address] [place] [address] UA w Culture if Ind Standard on 06-29-2022 Breakpoint UA Normal [facility] Comment on above: Performed By: #### 1 [id number] #### [facility] (DEFAULT) [address] [place] [address] 32115 Color (U) Yellow Normal [facility] Comment on above: Performed By: #### 1 [id number] #### [facility] (DEFAULT) [address] [place] [address] 61607 Culture? Not Indicated Invalid Interpretation Code [facility] Comment on above: Result Comment: Resu lt created by rule GL_MAGR_ADD_UA_CULT1 Performed By: #### 1 [id number] #### [facility] (DEFAULT) [address] [place] [address] 23453 Glucose (U) [Mass/Vol] Negative Normal [facility] Comment on above: Performed By: #### 1 [id number] #### [facility] (DEFAULT) [address] [place] [address] 17800 Ketones Ql (U) Negative Normal [facility] Comment on above: Performed By: #### 1 [id number] #### [facility] (DEFAULT) [address] [place] [address] 65835 Micro? Not Indicated Invalid Interpretation Code [facility] Comment on above: Result Comment: Resu lt created by rule GL_MAGR_ADD_UA_MICRO Performed By: #### 1 [id number] #### [facility] (DEFAULT) [address] [place] [address] UA Bilirubin Negative Normal [facility] Comment on above: Performed By: #### 1 [id number] #### [facility] (DEFAULT) [address] [place] [address] 95000 UA Blood Negative Normal NEGATIVE [facility] Comment on above: Performed By: #### 1 [id number] #### [facility] (DEFAULT) [address] [place] [address] 68689 UA Clarity CLEAR Normal CLEAR [facility] Comment on above: Performed By: #### 1 [id number] #### [facility] (DEFAULT) [address] [place] [address] 12356 UA Leuk Est Negative Normal NEGATIVE [facility] Comment on above: Performed By: #### 1 [id number] #### [facility] (DEFAULT) [address] [place] [address] 64662 UA Nitrite Negative Normal NEGATIVE [facility] Comment on above: Performed By: #### 1 [id number] #### [facility] (DEFAULT) [address] [place] [address] 81196 UA pH 6.5 Normal 5-8 [facility] Comment on above: Performed By: #### 1 [id number] #### [facility] (DEFAULT) [address] [place] [address] 28954 UA Protein Negative Normal NEGATIVE [facility] Comment on above: Performed By: #### 1 [id number] #### [facility] (DEFAULT) [address] [place] [address] 42283 UA Spec Grav 1.010 Normal 1.001-1.03 5 [facility] Comment on above: Performed By: #### 1 [id number] #### [facility] (DEFAULT) [address] [place] [address] UA Urobilinogen 0.2 mg/dL Normal 0.2-1.0 [facility] Comment on above: Performed By: #### 1 [id number] #### [facility] (DEFAULT) [address] [place] [address] 92858 Urine Source Clean Catch Normal [facility] Comment on above: Performed By: #### 1 [id number] #### [facility] (DEFAULT) [address] [place] [address] 48623 MRI Shoulder w/o Lefton 04-15 MRI Shoulder [...] by Adarsh Adams on 05/11/2022 1041 Normal [facility] Specialist SCREENING MAMMOGRAM W/ARABELLA, BILATERAL*on 11-20-2021 SCREENING [...] VERY IMPORTANT TO YOUR HEALTH. THE CURRENT [employer] GUIDELINES RECOMMENDS ANNUAL MAMMOGRAPHY BEGINNING AT AGE 39 THIS FACILITY USES A REMINDER SYSTEM TO ENSURE ALL PATIENTS RECEIVE REMINDER NOTIFICATIONS AT THE APPROPRIATE TIME BASED ON THE RECOMMENDATIONS OF THIS EXAM. Report reported and signed by Alejandro Forte on 11/20/2021 0949 Normal [facility] Comprehensive Metabolic Pane george 06-10-2021 Albumin [Mass/Vol] 4.2 g/dL Normal 3.6-5.1 [facility] Comment on above: Performed By: #### C JARVIS DONIS #### [facility] [address], [place] [id number] Albumin/Globulin [Mass ratio] 1.7 {ratio} Normal 1.0-2.5 [facility] Comment on above: Performed By: #### C JEWELS LIPTeresa #### [facility] [address], [place] [id number] ALP [Catalytic activity/Vol] 82 U/L Normal 35-119 [facility] Comment on above: Performed By: #### C JEWELS LIPTeresa #### [facility] [address], [place] [id number] ALT [Catalytic activity/Vol] 15 U/L Normal 6-33 [facility] Comment on above: Result Comment: 02/11 Female reference range changed. Performed By: #### C JEWELS LIPD #### [facility] [address], [place] [id number] Anion gap [Moles/Vol] 15 mmol/L Normal 12-20 [facility] Comment on above: Result Comment: Effe ctive 03/19/2019 reference range changed. Performed By: #### C JEWELS LIPD #### [facility] [address], [place] [id number] AST [Catalytic activity/Vol] 21 U/L Normal 9-34 [facility] Comment on above: Performed By: #### C JEWELS LIPD #### [facility] [address], [place] [id number] BUN/CREA 28 Ratio High 6-22 [facility] Comment on above: Performed By: #### JARVIS Anaya MP #### [facility] [address], [place] [id number] Calcium [Mass/Vol] 9.3 mg/dL Normal 8.6-10.2 [facility] Signal Technician Comment on above: Performed By: #### C JEWELS LIPD #### [facility] [address], [place] [id number] Chloride [Moles/Vol] 106 mmol/L Normal 98-107 [facility] Specialist Comment on above: Performed By: #### C JARVIS DONIS #### [facility] [address], [place] [id number] CO2 [Moles/Vol] 24 mmol/L Normal 20-31 [facility] Comment on above: Performed By: #### Jaclyn DONIS LIPTeresa #### [facility] [address], [place] [id number] Creatinine [Mass/Vol] 1.1 mg/dL Normal 0.6-1.4 [facility] Comment on above: Performed By: #### JARVIS Anaya MP #### [facility] [address], [place] [id number] eGFRAA 58 mL/min/1.73m2 Low >60 [facility] Comment on above: Performed By: #### Jaclyn DONIS LIPTeresa #### [facility] [address], [place] [id number] eGFRNAA 48 mL/min/1.73m2 Low >60 [facility] Signal Technician Comment on above: Performed By: #### C JEWELS LIPTeresa #### [facility] [address], [place] [id number] Globulin (S) [Mass/Vol] 2.5 g/dL Normal 1.9-3.7 [facility] Technician Comment on above: Performed By: #### Jaclyn DONIS LIPD #### [facility] [address], [place] [id number] Glucose [Mass/Vol] 94 mg/dL Normal 65-99 [facility] Signal Technician Comment on above: Result Comment: For FASTING Glucose --- ADA reference ranges: Normal 65-99 mg/dl Prediabetes 100-125 Diabetes >/= 126 Performed By: #### C MP, LIPD #### [facility] [address], [place] [id number] Potassium [Moles/Vol] 4.4 mmol/L Normal 3.5-5.5 [facility] Signal Technician Comment on above: Performed By: #### C MP, LIPD #### [facility] [address], [place] [id number] Protein [Mass/Vol] 6.7 g/dL Normal 6.1-8.1 [facility] [place] [facility] Comment on above: Performed By: #### C MP, LIPD #### [facility] [address], [place] [id number] Sodium [Moles/Vol] 141 mmol/L Normal 135-146 [facility] [place] [facility] Comment on above: Performed By: #### C MP, LIPD #### [facility] [address], [place] [id number] TBIL <0.3 Normal [facility] Comment on above: Performed By: #### C MP, LIPD #### [facility] [address], [place] [id number] Urea nitrogen [Mass/Vol] 32 mg/dL High 7-25 [facility] Signal Technician Comment on above: Performed By: #### C MP, LIPD #### [facility] [address], [place] [id number] Lipid Panelon 06-10-2021 Cholesterol [Mass/Vol] 237 mg/dL High 125-200 [facility] Comment on above: Result Comment: Low risk < 200mg/dL Borderline risk 201-239 mg/dl High risk > or equal to 240 Performed By: #### C MP, LIPD #### [facility] [address], [place] [id number] Cholesterol in HDL [Mass/Vol] 100 mg/dL Normal >40 [facility] Signal Technician Comment on above: Result Comment: High Cardiovascular Risk HDL <40 mg/dL Low Cardiovascular Risk HDL > or equal to 60 mg/dl Performed By: #### C MP, LIPD #### [facility] [address], [place] [id number] Cholesterol in LDL [Mass/Vol] 124 mg/dL Normal [facility] Comment on above: Result Comment: LDL ATP III CLASSIFICATION LDL less than 100 mg/dl Optimal LDL 100-129 mg/dl Near or above optimal LDL 130-159 Borderline high LDL 160-189 High LDL greater than 189 mg/dl Very High Performed By: #### C MP, LIPD #### [facility] [address], [place] [id number] Cholesterol in VLDL [Mass/Vol] 13 mg/dL Normal [facility] Comment on above: Performed By: #### C MP, LIPD #### [facility] [address], [place] [id number] Cholesterol.total/Ch olesterol in HDL [Mass ratio] 2 {ratio} Normal [facility] Comment on above: Performed By: #### C MP, LIPD #### [facility] [address], [place] [id number] Triglyceride [Mass/Vol] 67 mg/dL Normal 30-150 [facility] Comment on above: Result Comment: TRIG ATPIII CLASSIFICATIONS TRIG less than 150 mg/dl Normal TRIG 150-199 mg/dl Borderline High TRIG 200-500 mg/dl High TRIG greather than 500 mg/dl Very High Performed By: #### C MP, LIPD #### [facility] [address], [place] [id number] ECHOCARDIO M/2D COMPLETEon 0 10-24-2020 ECHOCARDIO M/2D COMPLETE Patient: RADHA CUADRA Exam Date: 10/24/2020 : 1945 Gender:F Ordering : DR SHARI MCKEON M.D. Admission #: [id number] Family : Order #: [id number] CLICK HERE TO VIEW EXAM ECHOCARDIOGRAM REPORT [...] Area(A4C): 13.90 cm2 Left Atrium Systolic Volume(A2C): 79836 mm3 Left Atrium Systolic Volume(A4C): 94827 mm3 Mitral Valve MV E to A Ratio: 1.10 Mitral Valve A-Wave Peak Velocity: 68.60 cm/s Mitral Valve E-Wave Peak Velocity: 74.50 cm/s Deceleration Time: 259 ms Right Ventricle Aorta AO Root Diam: 2.60 cm Aortic Valve Peak Velocity (Antegrade Flow): 161.00 cm/s, 230.00 cm/s AoV Area (Peak Daniel): 1.93 cm2 AoV Area (VTI): 1.90 cm2 Deceleration [place]: 1880 mm/s2 Pressure Half-Time: 528 ms Peak Velocity: 339.00 cm/s Peak Gradient: 46 mm[Hg] Peak Velocity(Antegrade Flow): 231.00 cm/s Peak Gradient(Antegrade Flow): 21 mm[Hg] Mean Velocity(Antegrade Flow): 162.00 cm/s Mean Gradient(Antegrade Flow): 12 mm[Hg] Velocity Time Integral: 50.20 cm Tricuspid Valve Peak Velocity (Regurgitant Flow): 206.00 cm/s, 224.00 cm/s Pulmonic Valve Peak Velocity: 117.00 cm/s Peak Gradient: 5 mm[Hg] Right Atrium Dictated by: eTo Burrows M.D. on 10/24/2020 at 19:11 Approved by: Teo Burrows M.D. on 10/24/2020 at 19:17 Normal [facility] HEMOGLOBINon 09-30-2020 Hemoglobin (Bld) [Mass/Vol] 12.3 g/dL Normal 12.0-16.0 [facility] Comment on above: Performed By: #### H GB #### [facility] [address] [address] Geraldo Kandy H PYLORI TISSUEon 02-01-2020 H PYL TISSUE, UREASE Negative Normal NEGATIVE [facility] Comment on above: Performed By: #### H GB #### [facility] [address] [address] Geraldo Charlesen COVID-19 PCRon 01-27-2020 SARS-CoV-2 (COVID-19) RNA VIVIENNE+probe Ql (Unsp spec) Not detected Normal Not Detected [facility] Comment on above: Result Comment: This nucleic acid amplification test was developed and its performance characteristics determined by [employer]. Nucleic acid amplification tests include PCR and [...] Performed By: #### C VDSTAT, CVDPCR #### [facility] [address] [place], [place] [id number] Geraldo Gaitan PRIORITY COVID PROCESSINGon 01-27-2020 Comment Comment Normal [facility] Comment on above: Result Comment: Rece ived Performed By: #### C VDSTAT, CVDPCR #### [facility] [address] [place], [place] [id number] Geraldo Gaitan CULTURE BLOODon 01-08-2020 Microscopic examination [...] Trimethoprim/Sulfamethoxazol e <=20 S F Normal [facility] Comment on above: Performed By: #### H GB #### [facility] [address] [place] [address] Geraldo Gaitan BLOOD CULTURE ID PANELon A. baumannii Not detected Normal [facility] Comment on above: Performed By: #### B MIRYAM #### [facility] [address] [place] [address] Geraldo Gaitan BCID CONTROLS PASSED Normal [facility] Comment on above: Performed By: #### B MIRYAM #### [facility] [address] [place] [address] Geraldo Kandy BCIDBTHD BLOOD CULTURE BOTTLE INFORMATION [facility] Comment on above: Performed By: #### B MIRYAM #### [facility] [address] [place] [address] Geraldo Kandy BCIDHD1 ANTIMICROBIAL RESIST ANCE GENES [facility] Comment on above: Performed By: #### B MIRYAM #### [facility] [address] [place] [address] Geraldo Kandy BCIDHD2 SEE BELOW [facility] Comment on above: Result Comment: KPC- carbapenem resistance gene, mecA- methecillin resistance gene, van A/B- vancomycin resistance gene Note: Antimicrobial resitance can occur via multiple mechanisms. A Not Detected result for the [employer] antomicrobial resistance gene assays does not indicate antimicrobial susceptibility. Subculturing is required for specis identificationand susceptibility testing of isolates. Performed By: #### B MIRYAM #### [facility] [address] [place] [address] Geraldo Kandy BCIDHD3 Positive [facility] Comment on above: Performed By: #### B MIRYAM #### [facility] [address] [place] [address] Geraldo Kandy BCIDHD3 Negative [facility] Comment on above: Performed By: #### B MIRYAM #### [facility] [address] [place] [address] Geraldo Kandy BCIDHD5 YEAST Normal [facility] Comment on above: Performed By: #### B MIRYAM #### [facility] [address] [place] [address] Geraldo Kandy BCIDHD6 SEE BELOW [facility] Comment on above: Result Comment: Note : All genus and species BCID [employer] results will be verified post subculturing via Maldi-Tof MS testing methodology. Performed By: #### B MIRYAM #### [facility] [address] [place] [address] Geraldo Kandy Bottle Set: Set 2 [facility] [facility] Comment on above: Performed By: #### B MIRYAM #### [facility] [address] [place] [address] Geraldo Kandy Bottle: Aerobic Normal [facility] Comment on above: Performed By: #### B MIRYMA #### [facility] [address] [place] [address] Geraldo Kandy Anomi albicans Not detected Normal [facility] Comment on above: Performed By: #### B MIRYAM #### [facility] [address] [place] [address] Geraldo Kandy Naomi glabrata Not detected Normal [facility] Comment on above: Performed By: #### B MIRYAM #### [facility] [address] [place] [address] Geraldo Kandy Naomi Krusei Not detected Normal [facility] Comment on above: Performed By: #### B MIRYAM #### [facility] [address] [place] [address] Geraldo Kandy Naomi Parapsilosis Not detected Normal [facility] Comment on above: Performed By: #### B MIRYAM #### [facility] [address] [place] [address] Geraldo Kandy Naomi Tropicalis Not detected Normal [facility] Comment on above: Performed By: #### B MIRYAM #### [facility] [address] [place] [address] Geraldo Kandy E. Cloacae complex Not detected Normal [facility] Comment on above: Performed By: #### B MIRYAM #### [facility] [address] [place] [address] Geraldo Kandy Enterobacteriaceae Detected Invalid Interpretation Code [facility] Comment on above: Performed By: #### B MIRYAM #### [facility] [address] [place] [address] Geraldo Kandy Enterococcus Not detected Normal [facility] Comment on above: Performed By: #### B MIRYAM #### [facility] [address] [place] [address] Geraldo Kandy Escheria coli Detected Normal [facility] Comment on above: Performed By: #### B MIRYAM #### [facility] [address] [place] [address] Geraldo Kandy K. oxytoca Not detected Normal [facility] Comment on above: Performed By: #### B MIRYAM #### [facility] [address] [place] [address] Geraldobhumi Charlesen K. pneumoniae Not detected Normal [facility] Comment on above: Performed By: #### B MIRYAM #### [facility] [address] [place] [address] Geraldobhumi Gaitan KPC Resistant Gene Not detected Normal [facility] Comment on above: Performed By: #### B MIRYAM #### [facility] [address] [place] [address] Geraldo Kandy List. monocytogenes Not detected Normal [facility] Comment on above: Performed By: #### B MIRYAM #### [facility] [address] [place] [address] Geraldo Gaitan mecA Resistant Gene Not detected Normal [facility] Comment on above: Performed By: #### B MIRYAM #### [facility] [address] [place] [address] Geraldo Kandy Proteus Not detected Normal [facility] Comment on above: Performed By: #### B MIRYAM #### [facility] [address] [place] [address] Geraldo Kandy Pseud. aeruginosa Not detected Normal [facility] Comment on above: Performed By: #### B MIRYAM #### [facility] [address] [place] [address] Geraldobhumi Gaitan Seratia marcescens Not detected Normal [facility] Comment on above: Performed By: #### B MIRYAM #### [facility] [address] [place] [address] Geraldo Kandy Site: R AC Normal [facility] Comment on above: Performed By: #### B MIRYAM #### [facility] [address] [place] [address] Geraldo Kandy Staph. aureus Not detected Normal [facility] Comment on above: Performed By: #### B MIRYAM #### [facility] [address] [place] [address] Geraldo Kandy Staphylococcus Not detected Normal [facility] Comment on above: Performed By: #### B MIRYAM #### [facility] [address] [place] [address] Geraldo Kandy Strep. agalactiae Not detected Normal [facility] Comment on above: Performed By: #### B MIRYAM #### [facility] [address] [place] [address] Geraldo Kandy Strep. pneumoniae Not detected Normal [facility] Comment on above: Performed By: #### B MIRYAM #### [facility] [address] [place] [address] Geraldo Kandy Strep. pyogenes Not detected Normal [facility] Comment on above: Performed By: #### B MIRYAM #### [facility] [address] [place] [address] Geraldo Kandy Streptococcus Not detected Normal [facility] Comment on above: Performed By: #### B MIRYAM #### [facility] [address] [place] [address] Geraldo Kandy Aicha/B Resist. Gene Not detected Normal [facility] Comment on above: Performed By: #### B MIRYAM #### [facility] [address] [place] [address] Geraldo Kandy CBC AUTO DIFFon 01-02-2020 BASO # 0.0 103/ul Normal 0.0-0.1 [facility] Comment on above: Performed By: #### C BC #### [facility] [address] [place] [address] Geraldo Kandy Basophils/100 WBC (Bld) 0.3 % Normal 0.2-2.0 [facility] Comment on above: Performed By: #### C BC #### [facility] [address] [place] [address] Geraldo Kandy EO # 0.0 103/ul Normal 0.0-0.7 [facility] Comment on above: Performed By: #### C BC #### [facility] [address] [place] [address] Geraldo Kandy Eosinophils/100 WBC (Bld) 0.3 % Critically low 0.9-7.0 [facility] Comment on above: Performed By: #### C BC #### [facility] [address] [place] [address] Geraldo Kandy Erythrocyte distribution width (RBC) [Ratio] 12.6 % Normal 11.0-15.0 [facility] Comment on above: Performed By: #### C BC #### [facility] [address] [place] [address] Geraldo Kandy Hematocrit (Bld) [Volume fraction] 42.7 % Normal 36.0-48.0 [facility] Comment on above: Performed By: #### C BC #### [facility] [address] [place] [address] Geraldo Kandy Hemoglobin (Bld) [Mass/Vol] 13.6 g/dL Normal 12.0-16.0 [facility] Comment on above: Performed By: #### C BC #### [facility] [address] [place] [address] Geraldo Kandy IG # 0.04 10e3/ul Critically high 0.00-0.03 [facility] Comment on above: Performed By: #### C BC #### [facility] [address] [place] [address] Geraldo Kandy IG % 0.3 % Normal 0.0-0.5 [facility] Comment on above: Performed By: #### C BC #### [facility] [address] [place] [address] Geraldo Kandy LYMPH # 0.5 103/ul Critically low 1.2-3.8 [facility] Comment on above: Performed By: #### C BC #### [facility] [address] [place] [address] Geraldo Kandy Lymphocytes/100 WBC (Bld) 4.4 % Critically low 20.5-60.0 [facility] Comment on above: Performed By: #### C BC #### [facility] [address] [place] [address] Geraldo Kandy MANUAL DIFF REQ NO Normal [facility] Comment on above: Performed By: #### C BC #### [facility] [address] [place], [place] [id number] Geraldo Gaitan MCH (RBC) [Entitic mass] 30.6 pg Normal 26.7-34.0 [facility] Comment on above: Performed By: #### C BC #### [facility] [address] [place], [place] [id number] Geraldo Gaitan MCHC (RBC) [Mass/Vol] 31.9 g/dL Normal 29.9-35.2 [facility] Comment on above: Performed By: #### C BC #### [facility] [address] [place], [place] [id number] Geraldo Gaitan MCV (RBC) [Entitic vol] 96.0 fL Normal 81.0-99.0 [facility] Comment on above: Performed By: #### C BC #### [facility] [address] [place], [place] [id number] Geraldo Gaitan MONO # 0.8 103/ul Normal 0.3-0.8 [facility] Comment on above: Performed By: #### C BC #### [facility] [address] [place], [place] [id number] Geraldo Gaitan Monocytes/100 WBC (Bld) 6.5 % Normal 1.7-12.0 [facility] Comment on above: Performed By: #### C BC #### [facility] [address] [place] [address] Geraldo Gaitan NEUT # 10.1 103/ul Critically high 1.4-6.5 [facility] Comment on above: Performed By: #### C BC #### [facility] [address] [place], [place] [id number] Geraldo Gaitan Neutrophils/100 WBC (Bld) 88.2 % Critically high 43.0-75.0 [facility] Comment on above: Performed By: #### C BC #### [facility] [address] [place], [place] [id number] Geraldo Gaitan Platelet mean volume (Bld) [Entitic vol] 9.8 fL Normal 9.5-13.5 [facility] Comment on above: Performed By: #### C BC #### [facility] [address] [place], [place] [id number] Geraldo Gaitan PLT 254 103/ul Normal 150-450 [facility] Comment on above: Performed By: #### C BC #### [facility] [address] [place] [address] Geraldo Gaitan RBC 4.45 106/ul Normal 4.20-5.40 [facility] Comment on above: Performed By: #### C BC #### [facility] [address] [place] [address] HEAD WO CONon 01-02-2020 [...] REMY NESS Date: 2020-01-02 19:00 Normal [facility] CULTURE BLOODon 01-02-2020 Microscopic examination of blood, culture Culture Observations: No growth at 5 days Normal [facility] Comment on above: Performed By: #### H GB #### [facility] [address] [place], [place] [id number] Geraldo Gaitan CULTURE URINEon 01-02-2020 CULTURE URINE Culture Observations : Light growth of mixed genital eliezer.No potential pathogens seen. Normal [facility] Comment on above: Performed By: #### H GB #### [facility] [address] [place], [place] [id number] Geraldo Gaitan ER URINE PROFILEon 0 Bilirubin Ql (U) Negative Normal NEGATIVE [facility] Comment on above: Performed By: #### E RUR, UMICRO #### [facility] [address] [place] [address] Geraldo Kandy Clarity (U) SL CLOUDY Normal [facility] Comment on above: Performed By: #### MELODY CORDOVA #### [facility] [address] [place] [address] Geraldo Kandy Color (U) LT. YELLOW Normal YELLOW [facility] Comment on above: Performed By: #### MELODY CORDOVA #### [facility] [address] [place] [address] Geraldo Kandy ERUAHD A micrscopic examina tion will be performed if indicated. Normal [facility] Comment on above: Performed By: #### MELODY CORDOVA #### [facility] [address] [place] [address] Geraldo Kandy Glucose Ql (U) Negative Normal NEGATIVE [facility] Comment on above: Performed By: #### MELODY CORDOVA #### [facility] [address] [place] [address] Geraldo Kandy Hemoglobin Ql (U) SMALL Normal NEGATIVE [facility] Comment on above: Performed By: #### MELODY CORDOVA #### [facility] [address] [place] [address] Geraldo Kandy Ketones Ql (U) Negative Normal NEGATIVE [facility] Comment on above: Performed By: #### MELODY CORDOVA #### [facility] [address] [place] [address] Geraldo Kandy LEUKOCYTES TRACE Normal NEGATIVE [facility] Comment on above: Performed By: #### MELODY CORDOVA #### [facility] [address] [place] [address] Geraldo Kandy Nitrite Ql (U) Negative Normal NEGATIVE [facility] Comment on above: Performed By: #### MELODY CORDOVA #### [facility] [address] [place] [address] Geraldo Kandy pH (U) 7.0 [pH] Normal 5-9 [facility] Comment on above: Performed By: #### KANDICE CORDOVARO #### [facility] [address] [place] [address] Geraldobhumi Gaitan Protein Ql (U) 30 mg/dl Normal [facility] Comment on above: Performed By: #### MELODY CORDOVA #### [facility] [address] [place] [address] Geraldo Kandy SPEC GRAVITY 1.015 Normal 1.005-<=1. 025 [facility] Comment on above: Performed By: #### MELODY CORDOVA #### [facility] [address] [place] [address] Geraldobhumi Charlesen UR MICRO IND INDICATED Normal [facility] Comment on above: Performed By: #### MELODY CORDOVA #### [facility] [address] [place] [address] Geraldobhumi Gaitan Urobilinogen Qn (U) 0.2 {Eileen'U}/dL Normal [facility] Comment on above: Performed By: #### MELODY CORDOVA #### [facility] [address] [place] [address] Geraldo Kandy LACTATE/LACTIC ACIDon 2019 Lactate [Moles/Vol] 1.1 mmol/L Normal 0.7-2.0 [facility] Comment on above: Performed By: #### H GB #### [facility] [address] [place] [address] Geraldo Kandy PROCALCITONINon 01-02-2020 PCT header 1 SEE BELOW Normal [facility] Comment on above: Result Comment: PCT <0.5ng/mL: Systemic infection (sepsis) is not likely, local bacterial infection possible, low risk for progression to severe systemic infection (severe sepsis) Performed By: #### P RL #### [facility] [address] [place] [address] Geraldo Kandy PCT header 2 SEE BELOW Normal [facility] Comment on above: Result Comment: PCT >/=0.5 and <2 ng/mL: Systemic infection (sepsis) is possible, moderate risk for progression to severe systemic infection (severe sepsis) Performed By: #### P RL #### [facility] [address] [place] [address] Geraldo Kandy PCT header 3 SEE BELOW Normal [facility] Comment on above: Result Comment: PCT >/=2.0 and <10 ng/mL: Systemic infection (sepsis) is likely, unless other causes are known, high risk for progession to severe systemic infection(severe sepsis) Performed By: #### P RL #### [facility] [address] [place] [address] Geraldo Kandy PCT header 4 SEE BELOW Normal [facility] Comment on above: Result Comment: PCT >/= 10 ng/mL: Important systemic inflammatory response almost exclusively due to severe bacterial sepsis or septic shock, high likelihood of severe sepsis or septic shock Performed By: #### P RL #### [facility] [address] [place] [address] Geraldo Gaitan PROCALCITONIN 0.62 ng/mL Critically high 0.00-0.50 [facility] Comment on above: Performed By: #### P RL #### [facility] [address] [place] [address] Geraldo Gaitan PROF 14(COMP METB)on 020 Albumin [Mass/Vol] 3.6 g/dL Normal 3.5-5.0 [facility] Comment on above: Performed By: #### C MP #### [facility] [address] [place], [place] [address] Geraldo Gaitan Albumin/Globulin [Mass ratio] 0.8 {ratio} Normal [facility] Comment on above: Performed By: #### C MP #### [facility] [address] [place] [address] Geraldo Kandy ALP [Catalytic activity/Vol] 95 U/L Normal 38-126 [facility] Comment on above: Performed By: #### C MP #### [facility] [address] [place], [place] [address] Geraldo Kandy ALT [Catalytic activity/Vol] 32 U/L Normal 9-52 [facility] Comment on above: Performed By: #### C MP #### [facility] [address] [id number] Geraldo Kandy Anion gap [Moles/Vol] 13.8 mmol/L Normal [facility] Comment on above: Performed By: #### C MP #### [facility] [address] [id number] Geraldo Kandy AST [Catalytic activity/Vol] 42 U/L Critically high 14-36 [facility] Comment on above: Performed By: #### C MP #### [facility] [address] [address] Geraldo Kandy Bilirubin [Mass/Vol] 0.5 mg/dL Normal 0.2-1.3 [facility] Comment on above: Performed By: #### C MP #### [facility] [address] [place] [address] Geraldo Kandy Calcium [Mass/Vol] 9.4 mg/dL Normal 8.4-10.2 [facility] Comment on above: Performed By: #### C MP #### [facility] [address] [address] Geraldo Kandy Chloride [Moles/Vol] 100 mmol/L Normal 98-107 [facility] Comment on above: Performed By: #### C MP #### [facility] [address] [place], [place] [address] Geraldo Kandy CO2 [Moles/Vol] 24.6 mmol/L Normal 22.0-30.0 [facility] Comment on above: Performed By: #### C MP #### [facility] [address] [address] Geraldo Kandy Creatinine [Mass/Vol] 1.36 mg/dL Critically high 0.52-1.04 [facility] Comment on above: Performed By: #### C MP #### [facility] [address] [place], [place] [address] Geraldo Kandy EGFR-AF SWEDISH 46 mL/min/1.73m2 Critically low >=60 [facility] Comment on above: Performed By: #### C MP #### [facility] [address] [place], [place] [address] Geraldo Kandy EGFR-NON AF SWEDISH 38 mL/min/1.73m2 Critically low >=60 [facility] Comment on above: Performed By: #### C MP #### [facility] [address] [id number] Geraldo Kandy Globulin (S) [Mass/Vol] 4.5 g/dL Normal [facility] Comment on above: Performed By: #### C MP #### [facility] [address] [address] Geraldo Kandy Glucose [Mass/Vol] 120 mg/dL Critically high 74-[address] [facility] Comment on above: Performed By: #### C MP #### [facility] [address] [address] Geraldo Kandy Potassium [Moles/Vol] 3.4 mmol/L Normal 3.4-5.0 [facility] Comment on above: Performed By: #### C MP #### [facility] [address] [place] [address] Geraldo Kandy Protein [Mass/Vol] 8.1 g/dL Normal 6.1-8.2 [facility] Comment on above: Performed By: #### C MP #### [facility] [address] [place] [address] Egraldo Kandy Sodium [Moles/Vol] 135 mmol/L Critically low 137-145 [facility] Comment on above: Performed By: #### C MP #### [facility] [address] [place] [address] Geraldo Kandy Urea nitrogen [Mass/Vol] 22.0 mg/dL Critically high 7.0-17.0 [facility] Comment on above: Performed By: #### C MP #### [facility] [address] [place], [place] [address] Geraldo Kandy Urea nitrogen/Creatinine [Mass ratio] 16.2 mg/mg Normal [facility] Comment on above: Performed By: #### C MP #### [facility] [address] [id number] Geraldo Kandy RESPIRATORY PANEL PLUSon 10- 21-2020 Adenovirus Not detected Normal NOT DETECTED [facility] Comment on above: Performed By: #### R SPLUS #### [facility] [address] [place] [address] Geraldo Kandy B. Parapertusis Not detected Normal NOT DETECTED [facility] Comment on above: Performed By: #### R SPLUS #### [facility] [address] [place] [address] Geraldo Kandy B. Pertussis Not detected Normal NOT DETECTED [facility] Comment on above: Performed By: #### R SPLUS #### [facility] [address] [place] [address] Geraldo Kandy Chlamydia Pneumoniae Not detected Normal NOT DETECTED [facility] Comment on above: Performed By: #### R SPLUS #### [facility] [address] [place] [address] Geraldo Kandy Coronavirus 229E Not detected Normal NOT DETECTED [facility] Comment on above: Performed By: #### R SPLUS #### [facility] [address] [place] [address] Geraldo Kandy Coronavirus HKU1 Not detected Normal NOT DETECTED [facility] Comment on above: Performed By: #### R SPLUS #### [facility] [address] [place] [address] Geraldo Kandy Coronavirus NL63 Not detected Normal NOT DETECTED [facility] Comment on above: Performed By: #### R SPLUS #### [facility] [address] [place] [address] Geraldo Kandy Coronavirus OC43 Not detected Normal NOT DETECTED [facility] Comment on above: Performed By: #### R SPLUS #### [facility] [address] [place] [address] Geraldo Kandy Influenza A H1 2009 Not detected Normal NOT DETECTED [facility] Comment on above: Performed By: #### R SPLUS #### [facility] [address] [place] [address] Geraldo Kandy Influenza B Not detected Normal NOT DETECTED [facility] Comment on above: Performed By: #### R SPLUS #### [facility] [address] [place], [place] [id number] Geraldo Kandy Metapneumovirus Not detected Normal NOT DETECTED [facility] Comment on above: Performed By: #### R SPLUS #### [facility] [address] [place] [address] Geraldo Kandy Mycoplas. Pneumoniae Not detected Normal NOT DETECTED [facility] Comment on above: Performed By: #### R SPLUS #### [facility] [address] [place] [address] Geraldo Kandy Parainfluenza 1 Not detected Normal NOT DETECTED [facility] Comment on above: Performed By: #### R SPLUS #### [facility] [address] [place] [address] Geraldo Kandy Parainfluenza 2 Not detected Normal NOT DETECTED [facility] Comment on above: Performed By: #### R SPLUS #### [facility] [address] [place] [address] Geraldo Kandy Parainfluenza 3 Not detected Normal NOT DETECTED [facility] Comment on above: Performed By: #### R SPLUS #### [facility] [address] [place] [address] Geraldo Kandy Parainfluenza 4 Not detected Normal NOT DETECTED [facility] Comment on above: Performed By: #### R SPLUS #### [facility] [address] [place] [address] Geraldo Kandy Rhino/Enterovirus Not detected Normal NOT DETECTED [facility] Comment on above: Performed By: #### R SPLUS #### [facility] [address] [place] [address] Geraldo Kandy RP2 Header 1 RESPIRATORY PANEL: VIRUSES Normal [facility] Comment on above: Performed By: #### R SPLUS #### [facility] [address] [place] [address] Geraldo Kandy RP2 Header 2 RESPIRATORY PANEL: BACTERIA Normal [facility] Comment on above: Performed By: #### R SPLUS #### [facility] [address] [place] [address] Geraldo Kandy RP2 Header 4 EUA SEE BELOW Normal [facility] Comment on above: Result Comment: This test is not yet approved or cleared by the [place] FDA. When there are no FDA-approved or cleared tests available, and other criteria are met, FDA can make tests available under an emergency access mechanism called an Emergency Use Authorization (EUA). The EUA for this test is supported by the [employer] Office of Health and Human Service?s (HHS?s) declaration [...] longer be used). Performed By: #### R ELBERT #### [facility] [address] [place] [address] Geraldo Kandy RSV Not detected Normal NOT DETECTED [facility] Comment on above: Performed By: #### R ELBERT #### [facility] [address] [place] [address] Geraldo Kandy SARS-CoV-2 (COVID-19) RNA VIVIENNE+probe Ql (Unsp spec) Not detected Normal NOT DETECTED [facility] Comment on above: Performed By: #### R ELBERT #### [facility] [address] [place] [address] Geraldobhumi Gaitan URINE MICROSCOPIC ONLYon BACTERIA MODERATE Normal NONE SEEN [facility] Comment on above: Performed By: #### MELODY CORDOVA #### [facility] [address] [place] [address] Geraldobhumi Gaitan Bacteria identified Cx Nom (U) INDICATED Normal [facility] Comment on above: Performed By: #### MELODY CORDOVA #### [facility] [address] [place] [address] Geraldo Kandy CAST NONE SEEN Normal NONE SEEN [facility] Comment on above: Performed By: #### MELODY CORDOVA #### [facility] [address] [place] [address] Geraldo Kandy Crystals LM Nom (Urine sed) NONE SEEN Normal NONE SEEN [facility] Comment on above: Performed By: #### E RUR, UMICRO #### [facility] [address] [id number] Geraldo Kandy Epithelial cells LM Ql (Urine sed) RARE Normal [facility] Comment on above: Performed By: #### E RUR, UMICRO #### [facility] [address] [id number] Geraldo Kandy MUCOUS NONE SEEN Normal NONE SEEN [facility] Comment on above: Performed By: #### E RUR, UMICRO #### [facility] [address] [id number] Geraldo Kandy RBC 0-2 Normal 0-2 [facility] Comment on above: Performed By: #### E RUR, UMICRO #### [facility] [address] [place], [place] [id number] Geraldo Kandy WBC 5-10 Normal NONE SEEN [facility] Comment on above: Performed By: #### E RUR, UMICRO #### [facility] [address] [place] [address] Geraldo Kandy XR CHEST 1 Von 01-02-2020 [...] REMY NESS Date: 2020-01-02 18:52 Normal [facility] Encounters Encounter Date Encounter Type Care Provider Facility Start: 12-13-2023 End: 12-13-2023 Telephone encounter Shari Mckeon MD Work Phone: [facility] Start: 11-28-2023 End: 11-28-2023 ambulatory Kei Espana MD Facility:[facility] Start: 10-04-2023 End: 10-04-2023 ambulatory [facility] Start: 09-19-2023 End: 09-19-2023 ambulatory ALEXANDER A HACKENBURG Not Available Start: 09-19-2023 End: 09-19-2023 ambulatory ALEXANDER A HACKENBURG Not Available Start: 09-05-2023 End: 09-05-2023 ambulatory Kei Quintanillaitis Facility:[facility] Start: 08-22-2023 End: 08-22-2023 ambulatory Andnaina Quintanillaitis Facility:[facility] Start: 07-25-2023 End: 07-25-2023 ambulatory Andnaina Quintanillaitis Facility:[facility] Start: 07-11-2023 End: 07-11-2023 ambulatory Andnaina Quintanillaitis Facility:[facility] Start: 06-17-2023 End: 06-17-2023 ambulatory ALEXANDER A HACKENBURG Not Available Start: 04-27-2023 Telephone encounter Marisa sierra DO Work Phone: [facility] 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 Start: 04-21-2023 Refill Alexander A Maki marcum COMMUNITY SUPPORT ASSOCIATE Work Phone: [facility] Comment on above: Essential hypertensi on ([facility] Start: 04-18-2023 End: 04-18-2023 ambulatory ALEXANDER A HACKENBURG Not Available Start: 03-08-2023 End: 03-08-2023 ambulatory [...] Start: 07-26-2022 End: 07-26-2022 ambulatory SHARI MCKEON Facility:[facility] Start: 06-29-2022 End: 06-30-2022 ambulatory SHARI MCKEON Facility:[facility] Start: 10-24-2020 End: 10-25-[address] SHARI MCKEON Facility:[facility] Start: 09-30-2020 End: 10-01-[address] SHARI MCKEON Facility:[facility] Start: 02-01-2020 End: 02-01-[address] CARLOS EDUARDO MENENDEZ Facility:[facility] Start: 01-30-2020 Encounter for preprocedural laboratory examination DR CARLOS EDUARDO MENENDEZ [facility] Start: 01-26-2020 End: 01-27-[address] SHARI MCKEON Facility:[facility] Start: 01-26-2020 End: 01-27-2020 Encounter for preprocedural laboratory examination DR SHARI MCKEON Facility:[facility] Start: 01-02-2020 End: 01-02-[address] BÁRBARA BLUE Facility:[facility] Start: 05-25-2018 End: 05-26-2018 Patient encounter procedure DEFAULT PHYSICIAN Facility:[facility] Plan of Treatment Date Care Activity Detail Author Start: 06-16-2024 Medicare Annual Wellness (AWV) Medicare Annual Wellness (AWV) [facility] Start: 11-13-2023 Influenza vaccination Influenza Vacc ine (#1) [facility] Start: 08-02-2023 End: 08-02-2023 Patient encounter procedure 08/02/2023 9:00 AM EDT Office Visit [facility] [address] [facility] [address] [place] [address] Marisa Ramos DO [address] [facility] [address] [place] [address] [facility] Start: 05-06-2023 Medicare Annual Wellness (AWV) Medicare Annual Wellness (AWV) [facility] Immunizations Immunization Date Immunization Notes Care Provider Fa cility 12-23-2022 Influenza, High-dose Seasonal, Quadrivalent, Preservative Free Alexander Aparicio COMMUNITY SUPPORT ASSOCIATE Work Phone: [facility] 12-23-2022 SARS-COV-2 (COVID-19 ) vaccine, mRNA, spike protein, LNP, PF, 50 mcg/0.5 mL Alexander Hackenburg COMMUNITY SUPPORT ASSOCIATE Work Phone: [facility] 12-23-2022 influenza virus vaccine, unspecified formulation Shari Mckeon MD Work Phone: [facility] 12-01-2021 Influenza, Seasonal, Quadrivalent, Adjuvanted Alexander Hackenburg COMMUNITY SUPPORT ASSOCIATE Work Phone: [facility] 12-01-2021 Seasonal, trivalent, recombinant, injectable influenza vaccine, preservative free Alexander Hackenburg COMMUNITY SUPPORT ASSOCIATE Work Phone: [facility] 12-16-2020 Influenza, High-dose Seasonal, Quadrivalent, Preservative Free Alexander Hackenburg COMMUNITY SUPPORT ASSOCIATE Work Phone: [facility] 02-14-2020 zoster vaccine recombinant Alexander Hackenburg COMMUNITY SUPPORT ASSOCIATE Work Phone: [facility] 12-07-2019 influenza, seasonal, injectable Alexander Hackenburg COMMUNITY SUPPORT ASSOCIATE Work Phone: [facility] 11-13-2019 influenza, injectabl e, quadrivalent, preservative free Alexander Hackenburg COMMUNITY SUPPORT ASSOCIATE Work Phone: [facility] 11-13-2019 zoster vaccine recombinant Alexander Hackenburg COMMUNITY SUPPORT ASSOCIATE Work Phone: [facility] 11-12-2019 zoster vaccine recombinant Alexander Hackenburg COMMUNITY SUPPORT ASSOCIATE Work Phone: [facility] 11-29-2018 Seasonal trivalent influenza vaccine, adjuvanted, preservative free Alexander Hackenburg COMMUNITY SUPPORT ASSOCIATE Work Phone: [facility] 11-30-2017 influenza, high dose seasonal, preservative-free Alexander Hackenburg COMMUNITY SUPPORT ASSOCIATE Work Phone: [facility] 11-24-2017 Seasonal trivalent influenza vaccine, adjuvanted, preservative free Alexander Hackenburg COMMUNITY SUPPORT ASSOCIATE Work Phone: [facility] 11-18-2016 influenza, high dose seasonal, preservative-free Alexander Hackenburg COMMUNITY SUPPORT ASSOCIATE Work Phone: [facility] Work Phone: 11-18-2016 pneumococcal conjuga te vaccine, 13 valent Alexander Hackenburg COMMUNITY SUPPORT ASSOCIATE Work Phone: [facility] 11-18-2016 Seasonal trivalent influenza vaccine, adjuvanted, preservative free Alexander Hackenburg COMMUNITY SUPPORT ASSOCIATE Work Phone: [facility] 11-18-2016 tetanus toxoid, redu greg diphtheria toxoid, and acellular pertussis vaccine, adsorbed Alexander Hackenburg COMMUNITY SUPPORT ASSOCIATE Work Phone: [facility] 11-12-2016 pneumococcal polysaccharide vaccine, 23 valent Alexander Hackenburg COMMUNITY SUPPORT ASSOCIATE Work Phone: [facility] 12-11-2015 influenza, high dose seasonal, preservative-free Alexander Hackenburg COMMUNITY SUPPORT ASSOCIATE Work Phone: [facility] 12-30-2014 influenza virus vaccine, whole virus Alexander Hackenburg COMMUNITY SUPPORT ASSOCIATE Work Phone: [facility] 12-30-2014 influenza, injectabl e, quadrivalent, preservative free Alexander Hackenburg COMMUNITY SUPPORT ASSOCIATE Work Phone: [facility] 05-10-2014 pneumococcal conjuga te vaccine, 13 valent Alexander Hackenburg COMMUNITY SUPPORT ASSOCIATE Work Phone: [facility] 12-13-2013 influenza virus vaccine, whole virus Alexander Hackenburg COMMUNITY SUPPORT ASSOCIATE Work Phone: [facility] 01-12-2013 pneumococcal Conjuga te, unspecified formulation Alexander Hackenburg COMMUNITY SUPPORT ASSOCIATE Work Phone: [facility] 01-12-2013 seasonal influenza, intradermal, preservative free Alexander Hackenburg COMMUNITY SUPPORT ASSOCIATE Work Phone: [facility] 12-27-2012 pneumococcal polysaccharide vaccine, 23 valent Alexander Hackenburg COMMUNITY SUPPORT ASSOCIATE Work Phone: [facility] Payers Date Payer Category Payer Unknown 2017 Medicare ANTHEM MEDICARE ADVANTAGE ANTHEM MEDICARE ADVANTAGE [id number] 2017-Present [address] [place] [address] [id number] 1959 Unknown [id number] 1945 Unknown [id number] 2.16.840.1.556710.3.579.2.647 1944 Unknown [id number] 2.16.840.1.106259.3.579.2.593 1944 Unknown [id number] 2.16.840.1.482470.3.579.2.593 1944 Unknown [id number] 2.16.840.1.880607.3.579.2.593 1944 Unknown [id number] 2.16.840.1.682608.3.579.2.593 1944 Unknown [id number] 2.16.840.1.536946.3.579.2.593 1944 Unknown [id number] 2.16.840.1.845629.3.579.2.718 1944 Unknown [id number] 2.16.840.1.072684.3.579.2.718 1944 Unknown [id number] 2.16.840.1.179947.3.579.2.125 9 1944 Unknown [id number] 2.16.840.1.443300.3.579.2.125 9 1944 Unknown [id number] 2.16.840.1.444340.3.579.2.125 9 1944 Unknown [id number] 2.16.840.1.162710.3.579.2.125 9 1944 Unknown [id number] 2.16.840.1.228314.3.579.2.125 9 1944 Unknown [id number] 2.16.840.1.716780.3.579.2.125 9 1944 Unknown [id number] 2.16.840.1.510001.3.579.2.125 9 1944 Unknown [id number] 2.16.840.1.082342.3.579.2.125 9 1944 Unknown [id number] 2.16.840.1.002606.3.579.2.125 9 1944 Unknown [id number] 2.16.840.1.130956.3.579.2.125 9 1944 Unknown [id number] 2.16.840.1.173527.3.579.2.125 9 1944 Unknown [id number] 2.16.840.1.990083.3.579.2.125 9 1944 Unknown [id number] 2.16.840.1.008344.3.579.2.125 9 1944 Unknown [id number] 2.16.840.1.649144.3.579.2.128 6 1945 Unknown [id number] 2.16.840.1.972506.3.579.2.196 1944 Unknown [id number] 2.16.840.1.035271.3.579.2.196 1944 Unknown [id number] 2.16.840.1.661426.3.579.2.196 1944 Unknown [id number] 2.16.840.1.853057.3.579.2.196 1945 Unknown [id number] 2.16.840.1.001097.3.579.2.196 Social History Date Type Detail Facility Start: 09-17-2022 Tobacco smoking stat [facility] Never smoked tobacco [facility] Start: 09-17-2022 Tobacco use and exposure Smoke less tobacco non-user [facility] Start: 04-18-2023 End: 09-19-2023 Alcohol intake Current drinker of alcohol (finding) [facility] Start: 04-18-2023 End: 06-17-2023 Alcohol intake [facility] Start: 04-18-2023 End: 06-17-2023 Tobacco use panel [facility] Start: 01-06-2023 Alcohol Comment Caffeine intak e: 1-2 cups per day [facility] Start: 1945 Sex Assigned At Not on file [facility] How often to you hav e a drink containing alcohol? 4 or more times a week [facility] How many standard dr inks containing alcohol do you have on a typical day? 1 or 2 [facility] How often do you hav e 6 or more drinks on 1 occasion? Never [facility] Clinical Notes 02-01-2020 to 12-13-2023 Telephone Encounter - Olga Lidia Saucedo - 12/13/2023 10:35 AM EDTTelephone Encounter - Olga Lidia Saucedo - 12/13/2023 10:35 AM EDTTelephone Encounter - Pati Valentino - 04/27/2023 1:09 PM EST Note Date & Type Note Facility 12-13-2023 Telephone encounter Note Patient called and would like an order for a mammogram sent over. Last one on 12/20/2022. Thank you [facility] 12-13-2023 Miscellaneous Notes Patient called and would like an order for a mammogram sent over. Last one on 12/20/2022. Thank you documented in this encounter [facility] 04-27-2023 Telephone encounter Note Called pt and informed [facility] 04-27-2023 Miscellaneous Notes Called pt and informed Pt called stated she had LT TSA 07/26/22 and is getting a cavity filled and needs antibiotic called into [facility] in [place]. Allergies: NKDA . Her call back [phone] documented in this encounter [facility] 04-27-2023 Telephone encounter Note Pt called stated she had LT TSA 07/26/22 and is getting a cavity filled and needs antibiotic called into [facility] in [place]. Allergies: NKDA . Her call back [phone] [facility] 04-21-2023 Telephone encounter Note Refills sent. [facility] 04-21-2023 Miscellaneous Notes Refills sent. documented in this encounter [facility] 07-27-2022 Note [id number] [facility] 07-26-2022 Note [facility] SURGERY Clinical Discharge Summary PERSON INFORMATION Name RADHA CUADRA Age 77 Years 1945 Sex FEMALE Language Armenian PCP SHARI MCKEON Marital Status Med Service Ambulatory Surgery Acct# Arrival 07/26/2022 05:52:10 Visit Reason SURGERY - LEFT REVERSE TOTAL SHOULDER - ARTHREX Acuity LOS 05 02:57 Address: [address] [place] [address] [place] [address] Comment: PROVIDER INFORMATION VITALS INFORMATION Vital Sign [...] REASON INCOMPLETE INFORMATION (more content not included)... [facility] 02-01-2020 Note OPERATIVE NOTE OPERATION DATE: 02/01/2020 [...] position. She was sedated by the nurse nursing clinical director. Bite block was placed in her mouth. [...] patient tolerated the procedure without any difficulties. [facility] SIGNED AND APPROVED BY: DR CARLOS EDUARDO MENENDEZ . 02/07/2020 09:15:00 [facility] Evaluation note Diagnosis Essential hypertension (CMS/HCC) Unspecified essential hypertension documented [facility] Diagnosis S/P reverse total shoulder arthroplasty, left- [...] section and content) DATE CREATED AUTHOR 05/27/2018 [facility] DATE CREATED AUTHOR AUTHOR'S ORGANIZ ATION 11/06/2020 [facility] pital DATE CREATED AUTHOR AUTHOR'S ORGANIZ ATION 05/12/2022 [facility] dical Specialist DATE CREATED AUTHOR AUTHOR'S ORGANIZ ATION 07/28/2022 [facility] DATE CREATED AUTHOR AUTHOR'S ORGANIZ ATION 09/26/2023 [facility] Specialists EPIC DATE CREATED AUTHOR AUTHOR'S ORGANIZ ATION 10/06/2023 [facility] DATE CREATED AUTHOR AUTHOR'S ORGANIZ ATION 12/04/[address] [facility] Reason for Visit (unrecogniz ed section and content) Reason Comments Med Refill Reason 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 Care Teams (unrecognized sec tion and content) Research Development Manager Relationship Specialty Start Date End Date Alexander Aparicio NP [address] [place] [facility] [place] [address] PCP - Cristobal FIGUEROA 03/21/21 Shari Mckeon MD [address] [place] [facility] [place] [address] PCP - General Family Medicine 07/26/22 Research Development Manager Relationship Specialty Start Date End Date Alexander Aparicio NP [address] [place] [facility] [place] [address] PCP - Cristobal FIGUEROA 03/21/21 Shari Mckeon MD [address] [place] [facility] [place] [address] PCP - General Family Medicine 07/26/22 Research Development Manager Relationship Specialty Start Date End Date Alexander Aparicio NP [address] [place] [facility] [place] [address] PCP - Cristobal FIGUEROA 03/21/21 Shari Mckeon MD [address] [place] [facility] [place] [address] PCP - General Family Medicine 07/26/22 FOR [...] BE BASED ON THE PRIMARY CLINICAL RECORDS. [facility] [employer] [facility]. provides no warranty or guarantee of the accuracy or completeness of information in this document.
--- NOTE | 2023-12-14 08:04 | P.CN_ITS ---
Consult Note: HPI Data of Consult Patient: known to practice within the last 3 years Consult date: 11/28/23 Requesting Physician: Concha Lopez NP Primary Care Provider: KELLY MCKEON Consult Narrative Reason for consult: back pain Narrative: 78yof who presents for assessment. notes low back pain that is higher than where her previous ablation was. notes significant relief >80% with rfa at bilateral l4-5, l5-s1. now points to pain slightly higher. imaging reviewed, which shows multilevel facet arthropathy at L1-2 and L2-3. this is area of most significant curvature from scoliosis. has continued to engage in a series of provider directed home exercises >6 weeks, without lasting benefit. uses otc pain meds as needed and tylenol #3 BID PRN. denies adverse med side effects. patient recently underwent bilateral L1-2 L2-3 MBB #1 with less than 50% improvement, patient feels pain is higher than injection site. cc:: CC: Concha Lopez NP Review of Systems ROS Status of ROS 10 or more systems reviewed and unremark able except as noted in history and below PFSH PFS Medical History Osteoarthritis ?M19.90 - Unspecified osteoarthritis, unspecified site (ICD-10) Heart murmur ?R01.1 - Cardiac murmur, unspecified (ICD-10) Surgical History History of total shoulder replacement ?Z96.619 - Presence of unspecified artificial shoulder joint (ICD-10) History of total knee arthroplasty ?Z96.659 - Presence of unspecified artificial knee joint (ICD-10) History of carpal tunnel release ?Z98.890 - Other specified postprocedural states (ICD-10) Meds Home Medications and Allergies Home Medications ?Medication ?Instructions ?Recorded ?Confirmed ?Type calcium carbonate 600 mg-vitamin 1 tab PO BID 07/11/23 12/12/23 History D3 5 mcg (200 unit) tablet (Calcium 600 + D(3)) losartan 100 mg tablet 100 mg PO DAILY 07/11/23 12/12/23 History magnesium 250 mg tablet 250 mg PO DAILY 07/11/23 12/12/23 History multivitamin-ferrous 1 tab PO DAILY 07/11/23 12/12/23 History fumarate-folic acid 18 mg-400 mcg tablet (Centrum Women) trazodone 50 mg tablet 50 mg PO DAILY 07/11/23 12/12/23 History vitamin B complex 1 cap PO DAILY 07/11/23 12/12/23 History fluticasone 250 mcg-salmeterol 50 inhalation 08/22/23 History mcg/dose blistr powdr for inhalation acetaminophen 300 mg-codeine 30 mg 1 tab PO BID PRN pain #60 tabs 11/28/23 12/12/23 Rx tablet Allergies Allergy/AdvReac Type Severity Reaction Status Date / Time No Known Drug Allergies Allergy Verified 12/12/23 06:54 Exam Constitutional Documenting provider has reviewed patient's vital signs: yes Common normals: no apparent distress, oriented x3, healthy appearing, alert and well nourished General appearance: cooperative HENMT Common normals: normocephalic, hearing grossly normal bilaterally and moist oral mucous membranes Head and scalp: normocephalic Eye Common normals: PERRL Pupil: PERRL Neck & C-Spine Common normals: full ROM General: normal visual inspection Chest Common normals: inspection of chest normal Respiratory Common normals: normal respiratory effort, no retractions and no use of accessory muscles Back & Pelvis Thoracic spine/upper back: ROM limited, pain with ROM and thoracic spinal tenderness; no paraspinal muscle spasm Lumbar spine/lower back: ROM limited, pain with ROM and lumbar spinal tenderness; no paraspinal muscle spasm Other: positive facet loading tenderness over T10-L2 facets no radiculopathy on exam strength 5/5 in BLE Neuro Common normals: oriented x3, CN's II-XII intact bilaterally, moves all extremities, no focal motor deficits, no sensory deficits noted and deep tendon reflexes 2+ bilaterally Sensorium/orientation: alert Motor exam: strength 5/5 throughout and no movement abnormalities noted Psych Common normals: mental status grossly normal, thought process normal, cooperative, affect normal, speech normal and activity/motor behavior normal Speech: normal speech Thought process: normal thought process Results Additional Findings Additional findings: If on a controlled substance or opioids, I have checked an [place] report on this patient and there are no aberrancies noted in the prescribing history.??If on a controlled substance or opioid a drug screen was completed and reviewed within the last year, and if there has not been a drug screen completed we ordered one today to monitor higher risk, state monitored pain medication use. As part of providing excellent, safe, comprehensive care, the following was completed at our patient's visit: 1. A medication reconciliation and review to ensure accurate knowledge of current/active medications, including asking our patients to inform us about any [id number] medications or herbal remedies/nutritional supplements/alternative remedies. 2. A review to specifically ensure our patients have had annual screening for screening for depression, screening for tobacco use, and screening for unhealthy alcohol use. For concerning screenings had a discussion with the patient, provided patient education, and recommended follow-up with primary care provider when appropriate. If patient noted with a risk of falling, they received education on strength, gait, and balance training to prevent future risk of falling. Assessment and Plan Assessment and Plan (1) Thoracic back pain: (2) Thoracic spondylosis: (3) Lumbar spondylosis: (4) Chronic use of opiate drug for therapeutic purpose: Assessment and Plan: I feel these medications are improving the patient's quality of life and allow them to tolerate activities of daily living as well as participate in recreational activity.? The patient does not report intolerable side effects. The patient is NOT opioid naive and non-pharmacologic and non-opioid treatment has failed to significantly relieve the patient's pain and improve functionality. The patient has a diagnosis that is related to a somatic or visceral pain etiology. ? ?? I reviewed with the patient the potential risks and side effects with the use of? opioid medications including but not limited to respiratory depression,? sedation, and even . I verified the patient has access to naloxone should? these effects occur. I advised the patient to avoid the use of any other? sedation substances including alcohol, THC, and benzodiazepines while? taking opioid medications due to the risk of compounding side effects and? detrimental outcomes. I reviewed the [employer], pain treatment agreement, urine? drug screen, and opioid start talking forms. The patient was advised to let? their family know they had Naloxone in case they would need to administer? the medication.? ?? A drug screen was completed within the last year, and no aberrancies were noted regarding their use of controlled substances. The patient understands they are subject to the terms and conditions of the pain contract that they have signed. ? ?? I have checked an [place]AR[place] report on this patient today and there are no aberrancies noted in the prescribing history.? (5) Osteoarthritis: Plan update thoracic xray to rule out fx bilateral T10-11 T11-12 MBB x2 working towards RFA continue current medications, reporting significant improvement in pain and functional ability with tylenol #3 BID PRN update UDS today f/u after each injection
== END 2023-12-14 07:46 | disposition home or self-care (01) ==
LOC: PM 07:46
PROVIDERS: PCP Family Medicine; Visit Provider Nurse Practitioner
DX: M47.814 Spondylosis without myelopathy or radiculopathy, thoracic region (principal); M54.6 Pain in thoracic spine; M47.816 Spondylosis without myelopathy or radiculopathy, lumbar region; Z79.899 Other long term (current) drug therapy
CPT/HCPCS: 72070; G0463

== ENCOUNTER 2023-12-14 08:12 | Outpatient (OUT) | payer MEDICARE, SELFPAY ==
--- NOTE | 2023-12-14 08:17 | XR_ITS ---
[facility] [id number] Patient Name: TRACI BARRAZA MRN: [id number] date: 1945 Sex: F Assigned Patient Location: [facility] Current Patient Location: [facility] Accession/Order Number: [id number] Exam Date: 12/14/2023 08:16 Report Date: 12/14/2023 09:08 At the request of: RINKU BENNETT Procedure: XR thoracic spine 2V EXAMINATION: XR thoracic spine 2V HISTORY: Thoracic Spondylosis COMPARISON: No relevant comparison available. FINDINGS: BONES: Dextrocurvature centered at T6. Mild to moderate spondylosis and facet osteoarthropathy. Partially visualized cervical hardware. Partially visualized left shoulder arthroplasty DISC SPACES: Normal. No significant disc height narrowing, subluxation, or endplate abnormality. PARASPINOUS: Negative. No paraspinous abnormality is seen. OTHER: Negative. XR/XR thoracic spine 2V IMPRESSION: Moderate degenerative changes with dextrocurvature Electronically authenticated by: RODRI ALANIS Date: 12/14/2023 09:08
--- OUTSIDE RECORDS SUMMARY | 2023-12-14 08:19 | XMS_ITS | CCD ---
Author Organization [facility] Care Team Providers Care Lens Marker Name Role Phone PHYSICIAN, DEFAULT Admitting Unavailable [...] able Marisa Ramos Attending Unavail able Alessandra MONUMENT MASON, Alexander Plascencia Unavailable Shari Mckeon MD Primary Care Provider ALEXANDER APARICIO Attending Unavailab le SHARI MCKEON Attending SHARI Hagan Referring Unavailable PATRICIAMARISA Attending Unavailable GLENNALLENMARISA Referring Unavailable [facility] Attending [facility]ail[facility], MARISA Plascencia Attending Unavailable [facility], ALEXANDER Plascencia Attending UnavailRehabilitation Hospital of Southern [facility] MexicoKORTNEY, ALEXANDER Plascencia Referring Unavailab [facility], MARISA Plascencia Attending Unavailable MARISA RAMOS Referring Unavailable PATRICIA, MARISA Plascencia Attending Unavailable ALEXANDER APARICIO Referring [facility] SHARI Carvalho Primary Care Unavailable Jovi JAIMES, Kei Brian Attending Unavailable Giedraitis , Kei Brian Attending Unavailable Giedraitis , Andnaina Brian Attending Unavailable Gieditis , Andrius Brian Attending Unavailable Gieditis , Andrius Brian Attending Unavailable Allergies Allergy Classification Reported Allergen(s) Allergy Type Date of Onset Reaction(s) Facility (2 sources) Alendronate; Translations: [Fosamax] Drug Allergy 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; Translations: [OTH MATERIAL CONTROL ANALYST CURRENT DRUG THERAPY] Onset: 02-14-2020 Episodic Other aftercare (1 source) retirement (current) use of aspirin; Translations: [HALFWAY CURRENT USE OF ASPIRIN] Onset: 01-04-2020 Episodic [...] Not Available Consent Formson 07-27-2022 Consent Forms [id number][facility] Discharge Instructions [id number]#1.00[facility] MAGR Intraoperative Recordon 07-27-2022 MAGR Intraoperative Record MAGR Intra-Op Record Summary Primary Physician: Marisa Ramos DO Finalized Date/Time: 07/27/22 09:45:04 Pt. Name: RADHA CUADRA/Sex: 1945 FEMALE Med Rec #: [id number] Physician: Marisa Ramos DO Financial #: [id number] Pt. Type: D Room/Bed: / Admit/Disch: 07/26/22 [...] Role Performed Surgeon - Primary Anesthesiologist of [employer] Record Time In 07/26/22 07:39:00 07/26/22 07:39:00 07/26/22 07:39:00 Time Out 07/26/22 09:49:00 07/26/22 09:49:00 07/26/22 09:49:00 Procedure Arthroplasty Shoulder Arthroplasty Shoulder Arthroplasty Shoulder Total Reverse(Left) Total Reverse(Left) Total Reverse(Left) Last Modified By: Mode GOLDMAN, Jania Coello RN, Jania oCnde RN 07/26/22 09:49:54 07/26/22 09:49:54 07/26/22 09:49:54 Entry 4 Entry 5 Entry 6 Case Attendee Fahad ELECTRIC LOCOMOTIVE CRANE OPERATOR, Lisa Martinez CST, CST ELECTRIC LOCOMOTIVE CRANE OPERATOR/CSFA, ZOE Worthy ELECTRIC LOCOMOTIVE CRANE OPERATOR Role Performed Scrub Personnel Scrub Personnel Microstrategy Developer Time In 07/26/22 07:39:00 07/26/22 07:39:00 07/26/22 [...] chemical sources (more content not included)... Normal [facility] Outside Recordson 07-27-2022 Outside Records [id number]#[address] [place] [address] Provider Orderson 07-27-2022 Provider Orders [id number]#1.[facility] Telemetry Stripson 3 Telemetry Strips [id number]#1.[facility] Anesthesia Noteon 07-26-2022 Anesthesia Note Patient: RADHA [...] 07/26/2022 11:51 EDT] Remy Da Silva MD [facility] Anesthesia Note Patient: RADHA CUADRA Age: [...] obstructive pulmonary disease (COPD) / SNOMED CT 57407924 / Confirmed Heart murmur / SNOMED CT 245547847 / Confirmed Hyperlipidemia / SNOMED CT 90395610 / Confirmed HTN (hypertension) / SNOMED CT 7025500231 / Confirmed Histories Family History: COPD Mother Father Procedure history: Arthroplasty of left knee (7299272822). Arthroplasty of right knee (4988376571). Carpal tunnel release (458634866). Comments: 06/29/2022 13:15 Dorota De Leon RN bilat Colonoscopy (733341169). EGD - Esophagogastroduodenoscopy (4981159705). Disorder of rotator cuff (0107833792). Comments: 06/29/2022 13:14 Dorota De Leon RN [...] Oriented. Review / Management Laboratory Results Plan [place] [employer]esthesiologists#(ASA) physical status classification: Class [...] 07/26/2022 08:23 EDT] Remy Da Silva MD [facility] Inpatient Patient Summaryon 07-26-2022 [place] [address] Patient Discharge Instructions Name: RADHA CUADRA : 1945 Patient Address: [address] [place] [address] Primary Care Provider: Name: SHARI MCKEON After you are discharged if you find you have any questions, please, call [phone] ext [phone] to speak to a nurse. Discharge Diagnosis: [...] alcohol and/or drug addiction problems; contact the [facility] 04/10 Crisis Hotline -Text 4HRDU to 309645. If you received any narcotics, sedation, or [...] business decisions or sign any legal documents [facility] would like to thank you for allowing us to assist you with your healthcare needs. The following includes patient education materials and information regarding your injury/illness. RADHA CUADRA has been given the following list of follow-up instructions, prescriptions, and patient education materials: Follow-up Instructions With: Address: When: Marisa Ramos [address] [place] [address], [address] [place] [address] Business (1) 08/03/2022 11:00 AM Medications During [...] fingers frequently (more content not included)... [facility] Record MAGR Intra-Op Record Summary Primary Physician: Finalized Date/Time: 07/26/22 07:42:32 Pt. Name: RADHA CUADRA /Sex: 1945 FEMALE Med Rec #: [id number] Physician: Marisa Ramos DO Financial #: [id number] Pt. Type: D Room/Bed: / Admit/Disch: 07/26/22 [...] Warga, Laura RN Role Performed Anesthesiologist of [employer] Record Time In 07/26/22 07:13:00 07/26/22 07:13:00 07/26/22 07:13:00 Time Out 07/26/22 07:38:00 07/26/22 07:38:00 07/26/22 07:38:00 Procedure Interscalene Block(Left) Interscalene Block(Left) Interscalene Block(Left) Last Modified By: Kimberley Le RN, Margaret RN Klaehn, Margaret RN 07/26/22 07:39:31 07/26/22 07:39:31 07/26/22 07:39:31 Entry 4 Case Attendee Amy Bates RN Role Performed [employer] Time In 07/26/22 07:13:00 Time Out 07/26/22 [...] Stretcher Post-op Destinat (more content not included)... [facility] MAGR PACU Recordon MAGR PACU Record MAGR PACU Record [facility] Primary Physician: Marisa Ramos DO Finalized Date/Time: 07/26/22 10:38:28 Pt. Name: CHRISTI RADHAJANELLE Dangelo/Sex: 1945 FEMALE Med Rec #: [id number] Physician: Marisa Ramos DO Financial #: [id number] Pt. Type: D Room/Bed: / Admit/Disch: 07/26/22 05:52:10 - Institution: PACU Case Times MAGR Entry 1 In PACU I 07/26/22 09:51:00 Discharge from PACU 07/26/22 10:35:00 I Last Modified By: Warner Bolton RN 07/26/22 10:38:23 Finalized By: Warner Bolton RN Document Signatures Signed By: Warner Bolton RN 07/26/22 10:38 [facility] MAGR Postoperative Recordon 07-26-2022 MAGR Postoperative Record MAGR Phase II Record Summary Primary Physician: Marisa Ramos DO Finalized Date/Time: 07/26/22 12:01:17 Pt. Name: LIV CUADRAJANELLE Dangelo/Sex: 1945 FEMALE Med Rec #: [id number] Physician: Marisa Ramos DO Financial #: [id number] Pt. Type: D Room/Bed: / Admit/Disch: 07/26/22 [...] Signed By: Annamarie Samuels RN 07/26/22 [facility] MAGR Preoperative Record MAGR Pre-Op Record Summary Primary Physician: Marisa Ramos DO Finalized Date/Time: 07/26/22 07:44:03 Pt. Name: LIV CUADRAJANELLE Dangelo/Sex: 1945 FEMALE Med Rec #: [id number] Physician: Marisa Ramos DO Financial #: [id number] Pt. Type: D Room/Bed: / Admit/Disch: 07/26/22 [...] By: Kimberley Le RN 07/26/22 07:44 Normal [facility] Operative Report - Surgeon/P pablo 07-26-2022 Operative [...] Estimated blood loss: 50 Complications: None Findings: Yxmk-av-xegc in the glenohumeral joint Procedure summary: Patient [...] on: 07/26/2022 09:35 EDT] Marisa Ramos DO [facility] Patient Handouton 07-26-[address] [...] or concerns, please call the office at [phone] 7. Follow up as scheduled [facility] XR Shoulder 1 View Lefton XR [...] MD 07/27/22 4:01 pm Technologist: JORDON RUVALCABA [facility] Comment on above: Order Comment: chey lt status post shoulder replacement Progress Note - Nurseon 07-12 Progress Note - Nurse Pre-op call made to pt. Pt states understanding of arrival time of 0600 on 07/26/22 and NPO after MN. [Electronically Signed on: 07/23/2022 09:27 EDT] Shantel Gonsalez RN L [Verified on: 07/23/2022 09:27 EDT] Shantel Gonsalez RN L [facility] Coding Summaryon 07-02-2022 Coding Summary HTMLBase 64 ThgrkaqvZDh3nSz+PGhlYWQ+PE1F SGHsD70akXUahY3WS6dNZU7WQHWZ NTWUIY1MUA1exPD6PYfvP4EpmtZh NmkwwUQmNH15DVl1BRM1zTcxTDrt hU0svJLsV9n7IzBdOD66wC47AEic EAGuTdY7ImMccanwfYFn D5vmFyRmqDJkRhg+PHRhYmxlIHdp ENYqVRklXCYePyYlnAatUY1pKk7g ZGVyLWNvbGxhcHNlOiBj s3swPAPlLDyxMI0uqBejD1UsaFD8 CXUhn6z5Dp21cXW+ZOWqFSF6bUrk OCnoq461EzYlw0gnLOM7 hQStTNwfLAJ9S01mn0I7AZEePCZr MHX9wLT6yR6aqKneijxyD6YrsNPq RsI6ODQ9zKCdlT6wyRib aqjwqE9dOol+S45GNU9QGDFVDZ9F Udm8X9YjIxgcxYM+VR04MRGvHN96 mHLerJZgv3ehgDq8VoQw PIDfPMV8tLhxYAdgv6PyIFOwT31b bALdq4Y8JYKseNbxhNQfUwWsyII0 zZ1rNMidpidby3ccsaez Latcl3mzlu15oA82N52iIUemVOMc GUD8XTGvKACcvVdqnc2umA4fNa5+ JFycq7apc9brqBf3IyYr JOIygwJsmNvzDHJ0z6TaTm21Q8Fz tJrvp8HfLki4pw32gYYiq5U2vYA6 FIxnMLDxfR0xISxxAhA5 TTUxMeCzlJ27oOPgHNynDl6opSth sUqkJK3sJXHjvontRCJenD9mBWHu pLOesMeoPL2xRGVeewqs z114SsTdEON2QIDwjTYiH1BkoA9r XeJhNHRiFQRdT4NtqVZqVJlqO362 DMvjGlC9TTTscwRfP5Mz OOAsfNsuClS2s0A7We9Yq6Ujwian NAK7UUdePKE3PbWyVbRqYfH1R5Qz Gph8CPHhsVrwQA4fA5Oo MUBsloggahyliQT7LHJqEARtqV48 wNLiQXfmOk9nz7M4n527WHGrYBEn zX26Ly9mbUcsUMTqdGEW jE4rwfequ7zffahiYdJnZZAzOPd3 THj5AZCwoRonQuArNIN7HpI0XQG5 uUBenD3suCdppawdmT9v Oyc+G53qzX9rODF3WNS4zjsgSHNg ttGcME07YQ88P0PwTpnjiPKxsWG+ AKLikoCprKynPM3wNoDh a9jmt8FaHRnyG9EwSNVeFAetVkk5 ZHDmUTW7oAX9sV6kSTKcQKydc2E8 nZQ9V2KwbpUuoq2xw1cg WUMxGFdzL93ulWHea9B6SDGqbHI7 IRUvhCzlGhYugW17Zlp+PGNvbGdy v1FvNjcov5ykj4upkTq8 PxEkFGPxozLnyQnrMCY6o9LqUz14 O02rQIkyDBVbQPOgOWBiIULoaAvw ma5paB6xKa7+PGNvbCB3 bCU6fC4qFIQzYpR6VTasY199XwNd aAInVjvfq7bvs3bzkNn5EgOkMIFm ehOhnVwlQYU9n3OcTe44 C57tKVcvBDMuFZSmEFTuGFHmqStk cw8ixV4mNr3+GJ9wo9geby06xM38 dHI+LLMhWZJ9gSrgWDbd ASTioU8fOWksRjC4AUJoZpWryQ56 sYJsRZvrGh8mtXabdDkaJF8pCFSr mjodn494LuNun5voGCJl pMDxAWfuEGN7U09gl8T4ZNMzGNLp OAA4zRV5iX0vnHuyluwyrHJhuLsk cqMxpMfhAAlrFInyZ326 IHRvcDsnPlBhdGllbnQgTmFtZTo8 U5AdYsx7VVUcxIdkIV4kgXKvSHfs In3esEoejZulUQ4rKXXm qnuum584WbCuc9wzUFCwiLAfCJla MKT6M72jg3I1LTOzCKVhSSM1rVZ1 cG5ogDgyqlwynGBhoGkt aaUaeUlxWEctPRtdI275GTDefHpl FzRmywEpDBYxtHD2XA45NV77dWZc c3K5rJF9W4YoVZJfloza qylgjDN6AXDqVHCslU55Gp8pnLgh Ou6tIUHpCQU4KJHbzTOaT1YbrM8e GnHwANCxUCLdE5LfvCZs HVrcV296KXxgFcC3WAFvhpDlM3Pq ACPzuImiUoW2x6A6Kq4NC3J9IW25 WC36oXDhi8W2tDW8H5Ih BRLqbubtxcdflOV1CMAlNANwsJ30 Jk5wrBjsTz7hDKRhKKQ7JCHcxJNd V5SerF2vZqPiGKEuPZRz H1NfnUWrCSboW838OJypZxU2TYTb usQnI2AoNEUnbBsaWrA5b3Q3Lj0N DCo0OU62TC28qKHxf0Z5 qRT5P7LrZOXucqtofktuaPP9FRGr NMUfvG33Ug7xfYimNt2eVCTkFQL5 YMFegCVpM9AgfG9lEfOt CQWaBDMyH5EgpOVeDVthH537UOcp ZdT9SGFdvkPzF8YoGSGyeGhpFeP2 p9K9Gp5QWTDkGB27FSK4 qXO6IP74GL30X9XxZbszlENegJY+ PHRhYmxlIHdpZHRoPScxMDAlJyBz oJlqDX3wFp4bWPBuXGCb rGjzhHJcDbHwg5vcXWLgSQrcMU5s xBffQ3RimOI4QJVdw4w3Ns13K36y H0ThzWF+IAYxcLK3lBP5 sT8vMcOlNaB7EJpiO036IlDyqSEg Oxfnk6hrx5cscDp7FfD7GPSzasLf qJitPNM1e2XwPe13M53v KBbrAWBjWAIzPCWfOEXztKgoff6h sB9xPz2+VGVaiXB6wOW4bE2uOlCy WdA8SLfaO339KnFryNYn Jyahx8ghu7yukBb8YlYnVLBsvuWe rKjxYHI4p9JuZe97O4XhmGgti1Uy Dyy1bt34tQCan9L8gGY8 T9MdVEPggcktvRQdcFktYJ3qGTJt nbwpJZWyuX2gKJHuY0h6YxWvIaC8 NComD1IebxC9TVFcbZPa MNnyXXL1T69dd7K6RLKdYETjMPG3 vUY4lV3fkKrfnfznsGGsyPahiwVz hLmqBYdqFHkiG866LBLx sQrnAYOxrU7kTVKmxJMybKvhMG4e XDEujtwcAhoNWNFyGKnEDZcqSU1L YVh6U3WjIvk6AZQzsSng TC7xfKRzOZatDg0ekNxygRcqIJ3i DEGsajklGLNnqB0dWWWemDNmcHjh DU1zPEOqribgv523VzNh HIQ4DTHygXPzL7CeaZ3jQoEhRHRq AZWeH2StsSCgYCgkB231LGprNuC1 RXVdfrHaG6QqBZLerLte VdP6p1B2Zj7rZn4hHr5fRIM9FA17 EX39gDZkl0E9oAN4Q8SnPAZzywic pgpneJD4SZIaCJVczI08 fVNiRRjxOv4bz0N3z551UKWpDPEp gW59Em1fuCrkLUSitAWUqD9nyrpy z5xhldngWjDsIOTsGFh1 DZp7NVBshMwzKgPvNEI9RjP3MKG8 iUWesE4kmUzzchlmbF1uKve+Nzgg LRAelcT0H4ZgFra1TIVd tSjfSP4euJOfQZenTp3jgBpxuJfr XE6bXIYjbknlFNYloP5jBUPrmLHf wNejFE6uIIJlsqyuv735 WhIgWZN9ECUlkGTtO2CxaW0mObPs PLXmQMAtQ2UwbBXhXAxkO058BBcc NaX4GUKgaiPzH2XlGUDh wSlaKtQ0d3Q3Wd0IZB9RCYH2G5Mx Ayj4DHNzoNfxTA6buBQhXGljHn2s fUkkgBvbYX5vIHCbsewc WKFonN5lTRBkoTKqiYfvNY9lIQCj kwgap687RoDvXME3XOVzyYMtK2Vd zR1pLeIeEIPoQFYiW2Mr iVQvHLvwH498ICwpHyX2JREujsRw D9ZoQUHmbVhaWdG5v3O7Pm2TZQol dGQ+KN65rb03D3GvTnyn Yda1NEMxAIZ3oRS4iU4eVOUeACdq y5F8nUI3O8UggyIjij3gg0zkCUVq CHjvM34koMHfx4G6LUSd pVB9PFCajHzfKtDfjH72Bdb+PGNv hEmdu5BgYfvke7lrf0wjhMx8UuAz HXPyjwVaxUahDMX0y5Au Ej89H93zESdyPADbFKOjZXDhAXOz bIjkth0jeD5oCy7+NWMecVE3pQI0 rZ4tIcLiDpX8SOosH237 HgCocLAdMqswg8lik3aunZm0AcBk FDPnlvHgqLmvJLL3b4EwKr58J1Wm fZvmu3PhLwh8nf63bVQr i7L4sEQ7P6MiQLOritenrLOxiSfw GX2bPNRoocgpYTKqrS8fDFTfT8c2 FvCpOpM6IQobA2MpokU2 OABrfQCsFHJxfPIVrK2molcuw6gw slklJuMgINEnSFq7FFo1NOCmaNyb PePfCIA0JgN8AQV2aGYb rO5zlWhkackmxA7hXqq+MFd2w1dd sGUrEW5ouSM6GD60MC07fKDby6H9 zGF6F9XdFBArkirtztrx xDQ6WJCwWUBsnB68Mu5pnYjjAa7l BVQhFGV4HJXxdOQqH2EonS6pRaXk PTMpIVPtB8VqzUPyRBcf U136TAenTcM0LTIjvtZiO7UcQXPz xExaYqQ9w5K0At2MVF42CP40KR93 dHKna3B3eOB0A6CiBRTf iyrswlpxxSL6REGaZMGqlC68Io7j mVjbWi9yDNZwURH1VTUanXYmO4Bq vE2cIzMmQHWpFYBxC9Jn oOGoDTlpR842KWrjBcH5YFGsejFy N4MdARUejQukZeY3u4Y0Zf5TQv43 GU82LJ13zXFnc2U0sXC2 H9WySFIoigmoinpfvOC0ZSTdPJJv pQ24Wd6ebBffFl8uLJOlCOL1PULd wDHhN6OtxW5lWhOpGAVa CGRcP3AgvXHbYRciW162AJapZrO5 MWBcmhMlP5PmTQXieTykPoL4j2I3 Bx3QHFdnejz8W6OqDuen dHI+KP99AWUdGD45xSBqrAVvq1ie lHk9LeViFHSeWGI3uApdCThih2Qn RTSmG06snKIhm7Z9JUFp bGx (more content not included)... [facility] C MRSA Screenon 06-30-2022 C MRSA Screen Negative [facility] Comment on above: Performed By: #### 1 [id number] ####[facility] (DEFAULT)[address] [place] [address] 30006 Progress Note - Nurseon 06-12 Progress Note - Nurse Dr. Castro reviewed PAT notes for upcoming surgery 07/26/2022. No new orders at this time [Electronically Signed on: 06/30/2022 11:45 EDT] Annamarie Samuels RN [Verified on: 06/30/2022 11:45 EDT] Annamarie Samuels RN [facility] Provider Orderson 06-30-2022 Provider Orders [id number]#1.00OTGTIFF [facility] .Auto Diff 1on 06-29-2022 Auto [place] % 10 % Normal 03-25 [facility] Comment on above: Performed By: #### 7 [id number], [id number], [id number] ####[facility] (DEFAULT)[address] [place] [address] 00851 Baso Abs# 0.0 x10 Normal 0.0-0.2 [facility] Comment on above: Performed By: #### 7 [id number], [id number], [id number] ####[facility] (DEFAULT)[address] [place] [address] 67773 Basophils/100 WBC (Bld) 0.7 % Normal 0.2-2.0 [facility] Comment on above: Performed By: #### 7 891425, [id number], [id number] ####[facility] (DEFAULT)[address] [place] [address] 27972 Eos Abs# 0.6 x10 High 0.0-0.4 [facility] Comment on above: Performed By: #### 7 [id number], [id number], [id number] ####[facility] (DEFAULT)[address] [place] [address] 06686 Eosinophils/100 WBC (Bld) 8.5 % High 0.9-4.0 [facility] Comment on above: Performed By: #### 7 643055, [id number], [id number] ####[facility] (DEFAULT)[address] [place] [address] 62994 Lymph Abs# 1.6 x10 Normal 1.3-2.9 [facility] Comment on above: Performed By: #### 7 510908, [id number], [id number] ####[facility] (DEFAULT)[address] [place] [address] 17853 Lymphocytes/100 WBC (Bld) 24 % Normal 14-48 [facility] Comment on above: Performed By: #### 7 685509, [id number], [id number] ####[facility] (DEFAULT)[address] [place] [address] 30629 [place] Abs# 0.7 x10 Normal 0.0-0.8 [facility] Comment on above: Performed By: #### 7 [id number], [id number], [id number] ####[facility] (DEFAULT)[address] [place] [address] 59928 Neut Abs# 3.8 x10 Normal 1.5-9.2 [facility] Comment on above: Performed By: #### 7 553027, [id number], [id number] ####[facility] (DEFAULT)[address] [place] [address] 68467 Neutrophils/100 WBC (Bld) 57 % Normal 44-88 [facility] Comment on above: Performed By: #### 7 703055, [id number], [id number] ####[facility] (DEFAULT)[address] [place] [address] 45079 BMP Standardon 06-29-2022 eGFR Non AA 33 mL/min/1.73m2 Invalid Interpretation Code [facility] Comment on above: Performed By: #### 7 246888, [id number], [id number] ####[facility] (DEFAULT)[address] [place] [address] 14625 eGFR AA 40 mL/min/1.73m2 Invalid Interpretation Code [facility] Comment on above: Performed By: #### 7 159321, [id number], [id number] ####[facility] (DEFAULT)[address] [place] [address] 14238 Anion gap [Moles/Vol] 8.9 mmol/L Normal 5.0-19.0 [facility] Comment on above: Performed By: #### 7 464585, [id number], [id number] ####[facility] (DEFAULT)[address] [place] [address] 45026 Calcium [Mass/Vol] 9.3 mg/dL Normal 8.9-10.3 [facility] Comment on above: Performed By: #### 7 450925, [id number], [id number] ####[facility] (DEFAULT)[address] [place] [address] 71193 Chloride [Moles/Vol] 102 mmol/L Normal 101-111 [facility] Comment on above: Performed By: #### 7 691949, [id number], [id number] ####[facility] (DEFAULT)[address] [place] [address] 13489 CO2 [Moles/Vol] 28 mmol/L Normal 21-32 [facility] Comment on above: Performed By: #### 7 628946, [id number], [id number] ####[facility] (DEFAULT)[address] [place] [address] 04720 Creatinine [Mass/Vol] 1.53 mg/dL High 0.60-1.30 [facility] Comment on above: Performed By: #### 7 875529, [id number], [id number] ####[facility] (DEFAULT)[address] [place] [address] 15831 Glucose [Mass/Vol] 107.0 mg/dL Normal 74.0-118.0 [facility] Comment on above: Performed By: #### 7 817600, [id number], [id number] ####[facility] (DEFAULT)[address] [place] [address] 09852 Osmolality 279 mOsm/L Invalid Interpretation Code [facility] Comment on above: Performed By: #### 7 [id number], [id number], [id number] ####[facility] (DEFAULT)[address] [place] [address] 69718 Potassium [Moles/Vol] 3.9 mmol/L Normal 3.6-5.1 [facility] Comment on above: Performed By: #### 7 313527, [id number], [id number] ####[facility] (DEFAULT)[address] [place] [address] 02406 Sodium [Moles/Vol] 135.0 mmol/L Low 136.0-144 . 0 [facility] Comment on above: Performed By: #### 7 [id number], [id number], [id number] ####[facility] (DEFAULT)[address] [place] [address] 86159 Urea nitrogen [Mass/Vol] 36 mg/dL High 8-26 [facility] Comment on above: Performed By: #### 7 [id number], [id number], [id number] ####[facility] (DEFAULT)[address] [place] [address] 06367 Urea nitrogen/Creatinine [Mass ratio] 23.5 mg/mg High 4.6-16.2 [facility] Comment on above: Performed By: #### 7 [id number], [id number], [id number] ####[facility] (DEFAULT)[address] [place] [address] CBC w/ Auto Diffon Erythrocyte distribution width (RBC) [Ratio] 12.8 % Normal 11.5-15.0 [facility] Comment on above: Performed By: #### 7 [id number], [id number], [id number] ####[facility] (DEFAULT)[address] [place] [address] Hematocrit (Bld) [Volume fraction] 36.4 % Normal 33.7-40.4 [facility] Comment on above: Performed By: #### 7 [id number], [id number], [id number] ####[facility] (DEFAULT)[address] [place] [address] Hemoglobin (Bld) [Mass/Vol] 12.2 g/dL Normal 11.3-15.9 [facility] Comment on above: Performed By: #### 7 [id number], [id number], [id number] ####[facility] (DEFAULT)[address] [place] [address] Man Diff? Auto Invalid Interpretation Code [facility] Comment on above: Performed By: #### 7 [id number], [id number], [id number] ####[facility] (DEFAULT)[address] [place] [address] 34708 MCH (RBC) [Entitic mass] 32 pg Normal 24-34 [facility] Comment on above: Performed By: #### 7 [id number], [id number], [id number] ####[facility] (DEFAULT)[address] [place] [address] 29258 MCHC (RBC) [Mass/Vol] 33 g/dL Normal 26-37 [facility] Comment on above: Performed By: #### 7 [id number], [id number], [id number] ####[facility] (DEFAULT)[address] [place] [address] 20449 MCV (RBC) [Entitic vol] 97 fL Normal 81-100 [facility] Comment on above: Performed By: #### 7 [id number], [id number], [id number] ####[facility] (DEFAULT)[address] [place] [address] 49602 Platelet 336 x10 Normal 138-427 [facility] Comment on above: Performed By: #### 7 [id number], [id number], [id number] ####[facility] (DEFAULT)[address] [place] [address] 43006 Platelet mean volume (Bld) [Entitic vol] 7.2 fL Normal 6.3-10.2 [facility] Comment on above: Performed By: #### 7 [id number], [id number], [id number] ####[facility] (DEFAULT)[address] [place] [address] 69571 RBC 3.77 x10 Normal 3.70-5.30 [facility] Comment on above: Performed By: #### 7 [id number], [id number], [id number] ####[facility] (DEFAULT)[address] [place] [address] 33541 WBC 6.7 x10 Normal 3.5-10.5 [facility] Comment on above: Performed By: #### 7 [id number], [id number], [id number] ####[facility] (DEFAULT)[address] [place] [address] UA w Culture if Ind Standard on 06-29-2022 Breakpoint UA Normal [facility] Comment on above: Performed By: #### 1 [id number] #### [facility] (DEFAULT) [address] [place] [address] 00299 Color (U) Yellow Normal [facility] Comment on above: Performed By: #### 1 [id number] #### [facility] (DEFAULT) [address] [place] [address] 96479 Culture? Not Indicated Invalid Interpretation Code [facility] Comment on above: Result Comment: Resu lt created by rule [id number] Performed By: #### 1 [id number] #### [facility] (DEFAULT) [address] [place] [address] 69872 Glucose (U) [Mass/Vol] Negative Normal [facility] Comment on above: Performed By: #### 1 [id number] #### [facility] (DEFAULT) [address] [place] [address] 56599 Ketones Ql (U) Negative Normal [facility] Comment on above: Performed By: #### 1 [id number] #### [facility] (DEFAULT) [address] [place] [address] 62238 Micro? Not Indicated Invalid Interpretation Code [facility] Comment on above: Result Comment: Resu lt created by rule GL_MAGR_ADD_UA_MICRO Performed By: #### 1 [id number] #### [facility] (DEFAULT) [address] [place] [address] UA Bilirubin Negative Normal [facility] Comment on above: Performed By: #### 1 [id number] #### [facility] (DEFAULT) [address] [place] [address] UA Blood Negative Normal NEGATIVE [facility] Comment on above: Performed By: #### 1 [id number] #### [facility] (DEFAULT) [address] [place] [address] UA Clarity CLEAR Normal CLEAR [facility] Comment on above: Performed By: #### 1 [id number] #### [facility] (DEFAULT) [address] [place] [address] UA Leuk Est Negative Normal NEGATIVE [facility] Comment on above: Performed By: #### 1 [id number] #### [facility] (DEFAULT) [address] [place] [address] UA Nitrite Negative Normal NEGATIVE [facility] Comment on above: Performed By: #### 1 [id number] #### [facility] (DEFAULT) [address] [place] [address] UA pH 6.5 Normal 5-8 [facility] Comment on above: Performed By: #### 1 [id number] #### [facility] (DEFAULT) [address] [place] [address] UA Protein Negative Normal NEGATIVE [facility] Comment on above: Performed By: #### 1 [id number] #### [facility] (DEFAULT) [address] [place] [address] UA Spec Grav 1.010 Normal 1.001-1.03 5 [facility] Comment on above: Performed By: #### 1 [id number] #### [facility] (DEFAULT) [address] [place] [address] UA Urobilinogen 0.2 mg/dL Normal 0.2-1.0 [facility] Comment on above: Performed By: #### 1 [id number] #### [facility] (DEFAULT) [address] [place] [address] Urine Source Clean Catch Normal [facility] Comment on above: Performed By: #### 1 [id number] #### [facility] (DEFAULT) [address] [place] [address] MRI Shoulder w/o Lefton 04-15 MRI Shoulder [...] by Adarsh Adams on 05/11/2022 1041 Normal [facility] Specialist SCREENING MAMMOGRAM W/ARABELLA, BILATERAL*on 11-20-2021 [...] VERY IMPORTANT TO YOUR HEALTH. THE CURRENT [employer]IR[employer]I [employer] GUIDELINES RECOMMENDS ANNUAL MAMMOGRAPHY BEGINNING AT AGE 39 THIS FACILITY USES A REMINDER SYSTEM TO ENSURE ALL PATIENTS RECEIVE REMINDER NOTIFICATIONS AT THE APPROPRIATE TIME BASED ON THE RECOMMENDATIONS OF THIS EXAM. Report reported and signed by Alejandro Forte on 11/20/2021 0949 Normal [facility] Comprehensive Metabolic Pane george 06-10-2021 Albumin [Mass/Vol] 4.2 g/dL Normal 3.6-5.1 [facility] Comment on above: Performed By: #### C JARVIS DONIS #### [facility] [address] [place], [place] [id number] Albumin/Globulin [Mass ratio] 1.7 {ratio} Normal 1.0-2.5 [facility] Comment on above: Performed By: #### C JEWELS LIPTeresa #### [facility] [address] [place], [place] [id number] ALP [Catalytic activity/Vol] 82 U/L Normal 35-119 [facility] Comment on above: Performed By: #### C JEWELS LIPTeresa #### [facility] [address] [place], [place] [id number] ALT [Catalytic activity/Vol] 15 U/L Normal 6-33 [facility] Comment on above: Result Comment: 02/11 Female reference range changed. Performed By: #### C JEWELS LIPD #### [facility] [address] [place], [place] [id number] Anion gap [Moles/Vol] 15 mmol/L Normal 12-20 [facility] Comment on above: Result Comment: Effe ctive 03/19/2019 reference range changed. Performed By: #### C JEWELS LIPD #### [facility] [address] [place], [place] [id number] AST [Catalytic activity/Vol] 21 U/L Normal 9-34 [facility] Comment on above: Performed By: #### C JEWELS LIPD #### [facility] [address] [place], [place] [id number] BUN/CREA 28 Ratio High 6-22 [facility]ist Comment on above: Performed By: #### JARVIS Anaya MP #### [facility] [address] [place], [place] [id number] Calcium [Mass/Vol] 9.3 mg/dL Normal 8.6-10.2 [facility] Manager Comment on above: Performed By: #### C JEWELS LIPD #### [facility] [address] [place], [place] [id number] Chloride [Moles/Vol] 106 mmol/L Normal 98-107 [facility] Specialist Comment on above: Performed By: #### C JARVIS DONIS #### [facility] [address] [place], [place] [id number] CO2 [Moles/Vol] 24 mmol/L Normal 20-31 [facility] Specialist Comment on above: Performed By: #### Jaclyn DONIS LIPTeresa #### [facility] [address] [place], [place] [id number] Creatinine [Mass/Vol] 1.1 mg/dL Normal 0.6-1.4 [facility] Specialist Comment on above: Performed By: #### JARVIS Anaya MP #### [facility] [address] [place], [place] [id number] eGFRAA 58 mL/min/1.73m2 Low >60 [facility] Specialist Comment on above: Performed By: #### Jaclyn DONIS LIPTeresa #### [facility] [address] [place], [place] [id number] eGFRNAA 48 mL/min/1.73m2 Low >60 [facility] Counsel[facility] Manager Comment on above: Performed By: #### C JEWELS LIPTeresa #### [facility] [address] [place], [place] [id number] Globulin (S) [Mass/Vol] 2.5 g/dL Normal 1.9-3.7 [facility] Manager Comment on above: Performed By: #### Jaclyn DONIS LIPD #### [facility] [address] [place], [place] [id number] Glucose [Mass/Vol] 94 mg/dL Normal 65-99 [facility] Counseling Center Manager Comment on above: Result Comment: For FASTING Glucose --- ADA reference ranges: Normal 65-99 mg/dl Prediabetes 100-125 Diabetes >/= 126 Performed By: #### C MP, LIPD #### [facility] [address] [place], [place] [id number] Potassium [Moles/Vol] 4.4 mmol/L Normal 3.5-5.5 [facility] Manager Comment on above: Performed By: #### C MP, LIPD #### [facility] [address] [place], [place] [id number] Protein [Mass/Vol] 6.7 g/dL Normal 6.1-8.1 [facility] Comment on above: Performed By: #### C MP, LIPD #### [facility] [address] [place], [place] [id number] Sodium [Moles/Vol] 141 mmol/L Normal 135-146 [facility] Comment on above: Performed By: #### C MP, LIPD #### [facility] [address] [place], [place] [id number] TBIL <0.3 Normal [facility] Specialist Comment on above: Performed By: #### C MP, LIPD #### [facility] [address] [place], [place] [id number] Urea nitrogen [Mass/Vol] 32 mg/dL High 7-25 [facility] Manager Comment on above: Performed By: #### C MP, LIPD #### [facility] [address] [place], [place] [id number] Lipid Panelon 06-10-2021 Cholesterol [Mass/Vol] 237 mg/dL High 125-200 [facility] Specialist Comment on above: Result Comment: Low risk < 200mg/dL Borderline risk 201-239 mg/dl High risk > or equal to 240 Performed By: #### C MP, LIPD #### [facility] [address] [place], [place] [id number] Cholesterol in HDL [Mass/Vol] 100 mg/dL Normal >40 [facility] Manager Comment on above: Result Comment: High Cardiovascular Risk HDL <40 mg/dL Low Cardiovascular Risk HDL > or equal to 60 mg/dl Performed By: #### C MP, LIPD #### [facility] [address] [place], [place] [id number] Cholesterol in LDL [Mass/Vol] 124 mg/dL Normal [facility] Comment on above: Result Comment: LDL ATP III CLASSIFICATION LDL less than 100 mg/dl Optimal LDL 100-129 mg/dl Near or above optimal LDL 130-159 Borderline high LDL 160-189 High LDL greater than 189 mg/dl Very High Performed By: #### C MP, LIPD #### [facility] [address] [place], [place] [id number] Cholesterol in VLDL [Mass/Vol] 13 mg/dL Normal [facility] Comment on above: Performed By: #### C MP, LIPD #### [facility] [address] [place], [place] [id number] Cholesterol.total/Ch olesterol in HDL [Mass ratio] 2 {ratio} Normal [facility] Comment on above: Performed By: #### C MP, LIPD #### [facility] [address] [place], [place] [id number] Triglyceride [Mass/Vol] 67 mg/dL Normal 30-150 [facility] Specialist Comment on above: Result Comment: TRIG ATPIII CLASSIFICATIONS TRIG less than 150 mg/dl Normal TRIG 150-199 mg/dl Borderline High TRIG 200-500 mg/dl High TRIG greather than 500 mg/dl Very High Performed By: #### C MP, LIPD #### [facility] [address] [place], [place] [id number] ECHOCARDIO M/2D COMPLETEon 0 10-24-2020 ECHOCARDIO M/2D COMPLETE Patient: RADHA CUADRA Exam Date: 10/24/2020 : 1945 Gender:F Ordering : DR SHARI MCKEON M.D. Admission #: [id number] Family : Order #: [id number] CLICK HERE TO VIEW EXAM ECHOCARDIOGRAM REPORT [...] Area(A4C): 13.90 cm2 Left Atrium Systolic Volume(A2C): 40795 mm3 Left Atrium Systolic Volume(A4C): 80425 mm3 Mitral Valve MV E to A Ratio: 1.10 Mitral Valve A-Wave Peak Velocity: 68.60 cm/s Mitral Valve E-Wave Peak Velocity: 74.50 cm/s Deceleration Time: 259 ms Right Ventricle Aorta AO Root Diam: 2.60 cm Aortic Valve Peak Velocity (Antegrade Flow): 161.00 cm/s, 230.00 cm/s AoV Area (Peak Daniel): 1.93 cm2 AoV Area (VTI): 1.90 cm2 Deceleration Lamoure: 1880 mm/s2 Pressure Half-Time: 528 ms Peak [...] on 10/24/2020 at 19:17 Normal [facility] HEMOGLOBINon 09-30-2020 Hemoglobin (Bld) [Mass/Vol] 12.3 g/dL Normal 12.0-16.0 [facility] Comment on above: Performed By: #### H GB #### [facility] [address] [address] Geraldo Kandy H PYLORI TISSUEon 02-01-2020 H PYL TISSUE, UREASE Negative Normal NEGATIVE [facility] Comment on above: Performed By: #### H GB #### [facility] [address] [address] Geraldo Charlesen COVID-19 PCRon 01-27-2020 SARS-CoV-2 (COVID-19) RNA VIVIENNE+probe Ql (Unsp spec) Not detected Normal Not Detected [facility] Comment on above: Result Comment: This nucleic acid amplification test was developed and its performance characteristics determined by [employer]. Nucleic acid amplification tests include PCR and [...] By: #### C VDSTAT, CVDPCR #### [facility] [address] [place], [place] [id number] Geraldo Gaitan PRIORITY COVID PROCESSINGon 01-27-2020 Comment Comment Normal [facility] Comment on above: Result Comment: Rece ived Performed By: #### C VDSTAT, CVDPCR #### [facility] [address] [place], [place] [id number] Geraldo Gaitan CULTURE BLOODon 01-08-2020 Microscopic examination [...] e <=20 S F Normal [facility] Comment on above: Performed By: #### H GB #### [facility] [address] [place] [address] Geraldo Gaitan BLOOD CULTURE ID PANELon A. baumannii Not detected Normal [facility] Comment on above: Performed By: #### B MIRYAM #### [facility] [address] [place] [address] Geraldo Gaitan BCID CONTROLS PASSED Normal [facility] Comment on above: Performed By: #### B MIRYAM #### [facility] [address] [place] [address] Geraldo Kandy BCIDBTHD BLOOD CULTURE BOTTLE INFORMATION [facility] Comment on above: Performed By: #### B MIRYAM #### [facility] [address] [place] [address] Geraldo Kandy BCIDHD1 ANTIMICROBIAL RESIST ANCE GENES [facility] Comment on above: Performed By: #### B MIRYAM #### [facility] [address] [place] [address] Geraldo Kandy BCIDHD2 SEE BELOW [facility] Comment on above: Result Comment: KPC- carbapenem resistance gene, mecA- methecillin resistance gene, van A/B- vancomycin resistance gene Note: Antimicrobial resitance can occur via multiple mechanisms. A Not Detected result for the [employer] antomicrobial resistance gene assays does not indicate antimicrobial susceptibility. Subculturing is required for specis identificationand susceptibility testing of isolates. Performed By: #### B MIRYAM #### [facility] [address] [place] [address] Geraldo Kandy BCIDHD3 Positive [facility] Comment on above: Performed By: #### B MIRYAM #### [facility] [address] [place] [address] Geraldo Kandy BCIDHD3 Negative [facility] Comment on above: Performed By: #### B MIRYAM #### [facility] [address] [place] [address] Geraldo Kandy BCIDHD5 YEAST Normal [facility] Comment on above: Performed By: #### B MIRYAM #### [facility] [address] [place] [address] Geraldo Kandy BCIDHD6 SEE BELOW [facility] Comment on above: Result Comment: Note : All genus and species BCID [employer] results will be verified post subculturing via Maldi-Tof MS testing methodology. Performed By: #### B MIRYAM #### [facility] [address] [place] [address] Geraldo Kandy Bottle Set: Set 2 [facility] Comment on above: Performed By: #### B MIRYAM #### [facility] [address] [place] [address] Geraldo Kandy Bottle: Aerobic Normal [facility] Comment on above: Performed By: #### B MIRYAM #### [facility] [address] [place] [address] Geraldo Kandy Naomi albicans Not detected Normal [facility] Comment on above: Performed By: #### B MIRYAM #### [facility] [address] [place] [address] Geraldo Kandy Naomi glabrata Not detected Normal [facility] Comment on above: Performed By: #### B MIRYAM #### [facility] [address] [place] [address] Geraldo Kandy Naomi Krusei Not detected Normal [facility] Comment on above: Performed By: #### B MIRYAM #### [facility] [address] [place] [address] Geraldo Kandy Naomi Parapsilosis Not detected Normal [facility] Comment on above: Performed By: #### B MIRYAM #### [facility] [address] [place] [address] Geraldo Kandy Naomi Tropicalis Not detected Normal [facility] Comment on above: Performed By: #### B MIRYAM #### [facility] [address] [place] [address] Geraldo Kandy E. Cloacae complex Not detected Normal [facility] Comment on above: Performed By: #### B MIRYAM #### [facility] [address] [place] [address] Geraldo Kandy Enterobacteriaceae Detected Invalid Interpretation Code [facility] Comment on above: Performed By: #### B MIRYAM #### [facility] [address] [place] [address] Egraldo Kandy Enterococcus Not detected Normal [facility] Comment on above: Performed By: #### B MIRYAM #### [facility] [address] [place] [address] Geraldo Kandy Escheria coli Detected Normal [facility] Comment on above: Performed By: #### B MIRYAM #### [facility] [address] [place] [address] Geraldo Kandy K. oxytoca Not detected Normal [facility] Comment on above: Performed By: #### B MIRYAM #### [facility] [address] [place] [address] Geraldobhumi Charlesen K. pneumoniae Not detected Normal [facility] Comment on above: Performed By: #### B MIRYAM #### [facility] [address] [place] [address] Geraldobhumi Gaitan KPC Resistant Gene Not detected Normal [facility] Comment on above: Performed By: #### B MIRYAM #### [facility] [address] [place] [address] Geraldo Kandy List. monocytogenes Not detected Normal [facility] Comment on above: Performed By: #### B MIRYAM #### [facility] [address] [place] [address] Geraldo Gaitan mecA Resistant Gene Not detected Normal [facility] Comment on above: Performed By: #### B MIRYAM #### [facility] [address] [place] [address] Geraldo Kandy Proteus Not detected Normal [facility] Comment on above: Performed By: #### B MIRYAM #### [facility] [address] [place] [address] Geraldo Kandy Pseud. aeruginosa Not detected Normal [facility] Comment on above: Performed By: #### B MIRYAM #### [facility] [address] [place] [address] Geraldobhumi Gaitan Seratia marcescens Not detected Normal [facility] Comment on above: Performed By: #### B MIRYAM #### [facility] [address] [place] [address] Geraldo Kandy Site: R AC Normal [facility] Comment on above: Performed By: #### B MIRYAM #### [facility] [address] [place] [address] Geraldo Kandy Staph. aureus Not detected Normal [facility] Comment on above: Performed By: #### B MIRYAM #### [facility] [address] [place] [address] Geraldo Kandy Staphylococcus Not detected Normal [facility] Comment on above: Performed By: #### B MIRYAM #### [facility] [address] [place] [address] Geraldo Kandy Strep. agalactiae Not detected Normal [facility] Comment on above: Performed By: #### B MIRYAM #### [facility] [address] [place] [address] Geraldo Kandy Strep. pneumoniae Not detected Normal [facility] Comment on above: Performed By: #### B MIRYAM #### [facility] [address] [place] [address] Geraldo Kandy Strep. pyogenes Not detected Normal [facility] Comment on above: Performed By: #### B MIRYAM #### [facility] [address] [place] [address] Geraldo Kandy Streptococcus Not detected Normal [facility] Comment on above: Performed By: #### B MIRYAM #### [facility] [address] [place] [address] Geraldo Kandy Aicha/B Resist. Gene Not detected Normal [facility] Comment on above: Performed By: #### B MIRYAM #### [facility] [address] [place] [address] Geraldo Kandy CBC AUTO DIFFon 01-02-2020 BASO # 0.0 103/ul Normal 0.0-0.1 [facility] Comment on above: Performed By: #### C BC #### [facility] [address] [place] [address] Geraldo Kandy Basophils/100 WBC (Bld) 0.3 % Normal 0.2-2.0 [facility] Comment on above: Performed By: #### C BC #### [facility] [address] [place] [address] Geraldo Kandy EO # 0.0 103/ul Normal 0.0-0.7 [facility] Comment on above: Performed By: #### C BC #### [facility] [address] [place] [address] Geraldo Kandy Eosinophils/100 WBC (Bld) 0.3 % Critically low 0.9-7.0 [facility] Comment on above: Performed By: #### C BC #### [facility] [address] [place] [address] Geraldo Kandy Erythrocyte distribution width (RBC) [Ratio] 12.6 % Normal 11.0-15.0 [facility] Comment on above: Performed By: #### C BC #### [facility] [address] [place] [address] Geraldo Kandy Hematocrit (Bld) [Volume fraction] 42.7 % Normal 36.0-48.0 [facility] Comment on above: Performed By: #### C BC #### [facility] [address] [place] [address] Geraldo Kandy Hemoglobin (Bld) [Mass/Vol] 13.6 g/dL Normal 12.0-16.0 [facility] Comment on above: Performed By: #### C BC #### [facility] [address] [place] [address] Geraldo Kandy IG # 0.04 10e3/ul Critically high 0.00-0.03 [facility] Comment on above: Performed By: #### C BC #### [facility] [address] [place] [address] Geraldo Kandy IG % 0.3 % Normal 0.0-0.5 [facility] Comment on above: Performed By: #### C BC #### [facility] [address] [place] [address] Geraldo Kandy LYMPH # 0.5 103/ul Critically low 1.2-3.8 [facility] Comment on above: Performed By: #### C BC #### [facility] [address] [place] [address] Geraldo Kandy Lymphocytes/100 WBC (Bld) 4.4 % Critically low 20.5-60.0 [facility] Comment on above: Performed By: #### C BC #### [facility] [address] [place] [address] Geraldo Kandy MANUAL DIFF REQ NO Normal [facility] Comment on above: Performed By: #### C BC #### [facility] [address] [place], [place] [id number] Geraldo Gaitan MCH (RBC) [Entitic mass] 30.6 pg Normal 26.7-34.0 [facility] Comment on above: Performed By: #### C BC #### [facility] [address] [place], [place] [id number] Geraldo Gaitan MCHC (RBC) [Mass/Vol] 31.9 g/dL Normal 29.9-35.2 [facility] Comment on above: Performed By: #### C BC #### [facility] [address] [place], [place] [id number] Geraldo Gaitan MCV (RBC) [Entitic vol] 96.0 fL Normal 81.0-99.0 [facility] Comment on above: Performed By: #### C BC #### [facility] [address] [place], [place] [address] Geraldo Gaitan MONO # 0.8 103/ul Normal 0.3-0.8 [facility] Comment on above: Performed By: #### C BC #### [facility] Laboratory [address] [place], [place] [id number] Geraldo Gaitan Monocytes/100 WBC (Bld) 6.5 % Normal 1.7-12.0 [facility] Comment on above: Performed By: #### C BC #### [facility] Laboratory [address] [place] [address] Geraldo Gaitan NEUT # 10.1 103/ul Critically high 1.4-6.5 [facility] Comment on above: Performed By: #### C BC #### [facility] Laboratory [address] [place], [place] [id number] Geraldo Gaitan Neutrophils/100 WBC (Bld) 88.2 % Critically high 43.0-75.0 [facility] Comment on above: Performed By: #### C BC #### [facility] Laboratory [address] [place], [place] [id number] Geraldo Gaitan Platelet mean volume (Bld) [Entitic vol] 9.8 fL Normal 9.5-13.5 [facility] Comment on above: Performed By: #### C BC #### [facility] Laboratory [address] [place], [place] [id number] Geraldo Gaitan PLT 254 103/ul Normal 150-450 [facility] Comment on above: Performed By: #### C BC #### [facility] Laboratory [address] [place] [address] Geraldo Gaitan RBC 4.45 106/ul Normal 4.20-5.40 [facility] Comment on above: Performed By: #### C BC #### [facility] Laboratory [address] [place] [address] HEAD WO CONon 01-02-2020 [...] NESS Date: 2020-01-02 19:00 Normal [facility] CULTURE BLOODon 01-02-2020 Microscopic examination of blood, culture Culture Observations: No growth at 5 days Normal [facility] Comment on above: Performed By: #### H GB #### [facility] Laboratory [address] [place], [place] [id number] Geraldo Gaitan CULTURE URINEon 01-02-2020 CULTURE URINE Culture Observations : Light growth of mixed genital eliezer.No potential pathogens seen. Normal [facility] Comment on above: Performed By: #### H GB #### [facility] Laboratory [address] [place], [place] [id number] Geraldo Gaitan ER URINE PROFILEon 0 Bilirubin Ql (U) Negative Normal NEGATIVE [facility] Comment on above: Performed By: #### E RUR, UMICRO #### [facility] Laboratory [address] [place] [address] Geraldo Kandy Clarity (U) SL CLOUDY Normal [facility] Comment on above: Performed By: #### MELODY CORDOVA #### [facility] Laboratory [address] [place] [address] Geraldo Kandy Color (U) LT. YELLOW Normal YELLOW [facility] Comment on above: Performed By: #### MELODY CORDOVA #### [facility] Laboratory [address] [place] [address] Geraldo Kandy ERUAHD A micrscopic examina tion will be performed if indicated. Normal [facility] Comment on above: Performed By: #### MELODY CORDOVA #### [facility] Laboratory [address] [place] [address] Geraldo Kandy Glucose Ql (U) Negative Normal NEGATIVE [facility] Comment on above: Performed By: #### MELODY CORDOVA #### [facility] Laboratory [address] [place] [address] Geraldo Kandy Hemoglobin Ql (U) SMALL Normal NEGATIVE [facility] Comment on above: Performed By: #### MELODY CORDOVA #### [facility] Laboratory [address] [place] [address] Geraldo Kandy Ketones Ql (U) Negative Normal NEGATIVE [facility] Comment on above: Performed By: #### MELODY CORDOVA #### [facility] Laboratory [address] [place] [address] Geraldo Kandy LEUKOCYTES TRACE Normal NEGATIVE [facility] Comment on above: Performed By: #### MELODY CORDOVA #### [facility] Laboratory [address] [place] [address] Geraldo Kandy Nitrite Ql (U) Negative Normal NEGATIVE [facility] Comment on above: Performed By: #### MELODY CORDOVA #### [facility] Laboratory [address] [place] [address] Geraldo Kandy pH (U) 7.0 [pH] Normal 5-9 [facility] Comment on above: Performed By: #### KANDICE CORDOVARO #### [facility] Laboratory [address] [place] [address] Geraldobhumi Gaitan Protein Ql (U) 30 mg/dl Normal [facility] Comment on above: Performed By: #### MELODY CORDOVA #### [facility] Laboratory [address] [place] [address] Geraldo Kandy SPEC GRAVITY 1.015 Normal 1.005-<=1. 025 [facility] Comment on above: Performed By: #### MELODY CORDOVA #### [facility] Laboratory [address] [place] [address] Geraldobhumi Charlesen UR MICRO IND INDICATED Normal [facility] Comment on above: Performed By: #### MELODY CORDOVA #### [facility] Laboratory [address] [place] [address] Geraldobhumi Gaitan Urobilinogen Qn (U) 0.2 {Eileen'U}/dL Normal [facility] Comment on above: Performed By: #### MELODY CORDOVA #### [facility] Laboratory [address] [place] [address] Geraldo Kandy LACTATE/LACTIC ACIDon 2019 Lactate [Moles/Vol] 1.1 mmol/L Normal 0.7-2.0 [facility] Comment on above: Performed By: #### H GB #### [facility] Laboratory [address] [place] [address] Geraldo Kandy PROCALCITONINon 01-02-2020 PCT header 1 SEE BELOW Normal [facility] Comment on above: Result Comment: PCT <0.5ng/mL: Systemic infection (sepsis) is not likely, local bacterial infection possible, low risk for progression to severe systemic infection (severe sepsis) Performed By: #### P RL #### [facility] Laboratory [address] [place] [address] Geraldo Kandy PCT header 2 SEE BELOW Normal [facility] Comment on above: Result Comment: PCT >/=0.5 and <2 ng/mL: Systemic infection (sepsis) is possible, moderate risk for progression to severe systemic infection (severe sepsis) Performed By: #### P RL #### [facility] Laboratory [address] [place] [address] Geraldo Kandy PCT header 3 SEE BELOW Normal [facility] Comment on above: Result Comment: PCT >/=2.0 and <10 ng/mL: Systemic infection (sepsis) is likely, unless other causes are known, high risk for progession to severe systemic infection(severe sepsis) Performed By: #### P RL #### [facility] Laboratory [address] [place] [address] Geraldo Kandy PCT header 4 SEE BELOW Normal [facility] Comment on above: Result Comment: PCT >/= 10 ng/mL: Important systemic inflammatory response almost exclusively due to severe bacterial sepsis or septic shock, high likelihood of severe sepsis or septic shock Performed By: #### P RL #### [facility] Laboratory [address] [place] [address] Geraldo Gaitan PROCALCITONIN 0.62 ng/mL Critically high 0.00-0.50 [facility] Comment on above: Performed By: #### P RL #### [facility] Laboratory [address] [place] [address] Geraldo Gaitan PROF 14(COMP METB)on 020 Albumin [Mass/Vol] 3.6 g/dL Normal 3.5-5.0 [facility] Comment on above: Performed By: #### C MP #### [facility] Laboratory [address] [place], [place] [address] Geraldo Gaitan Albumin/Globulin [Mass ratio] 0.8 {ratio} Normal [facility] Comment on above: Performed By: #### C MP #### [facility] Laboratory [address] [place] [address] Geraldo Kandy ALP [Catalytic activity/Vol] 95 U/L Normal 38-126 [facility] Comment on above: Performed By: #### C MP #### [facility] Laboratory [address] [place], [place] [address] Geraldo Kandy ALT [Catalytic activity/Vol] 32 U/L Normal 9-52 [facility] Comment on above: Performed By: #### C MP #### [facility] Laboratory [address] [id number] Geraldo Kandy Anion gap [Moles/Vol] 13.8 mmol/L Normal [facility] Comment on above: Performed By: #### C MP #### [facility] Laboratory [address] [address] Geraldo Kandy AST [Catalytic activity/Vol] 42 U/L Critically high 14-36 [facility] Comment on above: Performed By: #### C MP #### [facility] Laboratory [address] [address] Geraldo Kandy Bilirubin [Mass/Vol] 0.5 mg/dL Normal 0.2-1.3 [facility] Comment on above: Performed By: #### C MP #### [facility] Laboratory [address] [place] [address] Geraldo Kandy Calcium [Mass/Vol] 9.4 mg/dL Normal 8.4-10.2 [facility] Comment on above: Performed By: #### C MP #### [facility] Laboratory [address] [address] Geraldo Kandy Chloride [Moles/Vol] 100 mmol/L Normal 98-107 [facility] Comment on above: Performed By: #### C MP #### [facility] Laboratory [address] [place], [place] [address] Geraldo Kandy CO2 [Moles/Vol] 24.6 mmol/L Normal 22.0-30.0 [facility] Comment on above: Performed By: #### C MP #### [facility] Laboratory [address] [address] Geraldo Kandy Creatinine [Mass/Vol] 1.36 mg/dL Critically high 0.52-1.04 [facility] Comment on above: Performed By: #### C MP #### [facility] Laboratory [address] [place], [place] [address] Geraldo Kandy EGFR-AF EMIRATI 46 mL/min/1.73m2 Critically low >=60 [facility] Comment on above: Performed By: #### C MP #### [facility] Laboratory [address] [place], [place] [address] Geraldo Kandy EGFR-NON AF EMIRATI 38 mL/min/1.73m2 Critically low >=60 [facility] Comment on above: Performed By: #### C MP #### [facility] Laboratory [address] [id number] Geraldo Kandy Globulin (S) [Mass/Vol] 4.5 g/dL Normal [facility] Comment on above: Performed By: #### C MP #### [facility] [address] [address] Geraldo Kandy Glucose [Mass/Vol] 120 mg/dL Critically high 74-106 [facility] Comment on above: Performed By: #### C MP #### [facility] Laboratory [address] [address] Geraldo Kandy Potassium [Moles/Vol] 3.4 mmol/L Normal 3.4-5.0 [facility] Comment on above: Performed By: #### C MP #### [facility] Laboratory [address] [place] [address] Geraldo Kandy Protein [Mass/Vol] 8.1 g/dL Normal 6.1-8.2 [facility] Comment on above: Performed By: #### C MP #### [facility] Laboratory [address] [place] [address] Geraldo Kandy Sodium [Moles/Vol] 135 mmol/L Critically low 137-145 [facility] Comment on above: Performed By: #### C MP #### [facility] Laboratory [address] [place] [address] Geraldo Kandy Urea nitrogen [Mass/Vol] 22.0 mg/dL Critically high 7.0-17.0 [facility] Comment on above: Performed By: #### C MP #### [facility] Laboratory [address] [place], [place] [address] Geraldo Kandy Urea nitrogen/Creatinine [Mass ratio] 16.2 mg/mg Normal [facility] Comment on above: Performed By: #### C MP #### [facility] Laboratory [address] [phone] Geraldo Kandy RESPIRATORY PANEL PLUSon 10- 21-2020 Adenovirus Not detected Normal NOT DETECTED [facility] Comment on above: Performed By: #### R SPLUS #### [facility] Laboratory [address] [place] [address] Geraldo Kandy B. Parapertusis Not detected Normal NOT DETECTED [facility] Comment on above: Performed By: #### R SPLUS #### [facility] Laboratory [address] [place] [address] Geraldo Kandy B. Pertussis Not detected Normal NOT DETECTED [facility] Comment on above: Performed By: #### R SPLUS #### [facility] Laboratory [address] [place] [address] Geraldo Kandy Chlamydia Pneumoniae Not detected Normal NOT DETECTED [facility] Comment on above: Performed By: #### R SPLUS #### [facility] Laboratory [address] [place] [address] Geraldo Kandy Coronavirus 229E Not detected Normal NOT DETECTED [facility] Comment on above: Performed By: #### R SPLUS #### [facility] Laboratory [address] [place] [address] Geraldo Kandy Coronavirus HKU1 Not detected Normal NOT DETECTED [facility] Comment on above: Performed By: #### R SPLUS #### [facility] Laboratory [address] [place] [address] Geraldo Kandy Coronavirus NL63 Not detected Normal NOT DETECTED [facility] Comment on above: Performed By: #### R SPLUS #### [facility] Laboratory [address] [place] [address] Geraldo Kandy Coronavirus OC43 Not detected Normal NOT DETECTED [facility] Comment on above: Performed By: #### R SPLUS #### [facility] Laboratory [address] [place] [address] Geraldo Kandy Influenza A H1 2009 Not detected Normal NOT DETECTED [facility] Comment on above: Performed By: #### R SPLUS #### [facility] Laboratory [address] [place] [address] Geraldo Kandy Influenza B Not detected Normal NOT DETECTED [facility] Comment on above: Performed By: #### R SPLUS #### [facility] Laboratory [address] [place], [place] [address] Geraldo Kandy Metapneumovirus Not detected Normal NOT DETECTED [facility] Comment on above: Performed By: #### R SPLUS #### [facility] Laboratory [address] [place] [address] Geraldo Kandy Mycoplas. Pneumoniae Not detected Normal NOT DETECTED [facility] Comment on above: Performed By: #### R SPLUS #### [facility] Laboratory [address] [place] [address] Geraldo Kandy Parainfluenza 1 Not detected Normal NOT DETECTED [facility] Comment on above: Performed By: #### R SPLUS #### [facility] Laboratory [address] [place] [address] Geraldo Kandy Parainfluenza 2 Not detected Normal NOT DETECTED [facility] Comment on above: Performed By: #### R SPLUS #### [facility] Laboratory [address] [place] [address] Geraldo Kandy Parainfluenza 3 Not detected Normal NOT DETECTED [facility] Comment on above: Performed By: #### R SPLUS #### [facility] Laboratory [address] [place] [address] Geraldo Kandy Parainfluenza 4 Not detected Normal NOT DETECTED [facility] Comment on above: Performed By: #### R SPLUS #### [facility] Laboratory [address] [place] [address] Geraldo Kandy Rhino/Enterovirus Not detected Normal NOT DETECTED [facility] Comment on above: Performed By: #### R SPLUS #### [facility] Laboratory [address] [place] [address] Geraldo Kandy RP2 Header 1 RESPIRATORY PANEL: VIRUSES Normal [facility] Comment on above: Performed By: #### R SPLUS #### [facility] Laboratory [address] [place] [address] Geraldo Kandy RP2 Header 2 RESPIRATORY PANEL: BACTERIA Normal [facility] Comment on above: Performed By: #### R SPLUS #### [facility] Laboratory [address] [place] [address] Geraldo Kandy RP2 Header 4 EUA SEE BELOW Normal [facility] Comment on above: Result Comment: This test is not yet approved or cleared by the [place] FDA. When there are no FDA-approved or cleared tests available, and other criteria are met, FDA can make tests available under an emergency access mechanism called an Emergency Use Authorization (EUA). The EUA for this test is supported by the Patch Setter of Health and Human Service?s (HHS?s) declaration [...] Performed By: #### R ELBERT #### [facility] Laboratory [address] [place] [address] Geraldo Kandy RSV Not detected Normal NOT DETECTED [facility] Comment on above: Performed By: #### R ELBERT #### [facility] Laboratory [address] [place] [address] Geraldo Kandy SARS-CoV-2 (COVID-19) RNA VIVIENNE+probe Ql (Unsp spec) Not detected Normal NOT DETECTED [facility] Comment on above: Performed By: #### R ELBERT #### [facility] Laboratory [address] [place] [address] Geraldobhumi Gaitan URINE MICROSCOPIC ONLYon BACTERIA MODERATE Normal NONE SEEN [facility] Comment on above: Performed By: #### MELODY CORDOVA #### [facility] Laboratory [address] [place] [address] Geraldobhumi Gaitan Bacteria identified Cx Nom (U) INDICATED Normal [facility] Comment on above: Performed By: #### MELODY CORDOVA #### [facility] Laboratory [address] [place] [address] Geraldo Kandy CAST NONE SEEN Normal NONE SEEN [facility] Comment on above: Performed By: #### MELODY CORDOVA #### [facility] Laboratory [address] [place] [address] Geraldo Kandy Crystals LM Nom (Urine sed) NONE SEEN Normal NONE SEEN [facility] Comment on above: Performed By: #### E RUR, UMICRO #### [facility] Laboratory [address] [id number] Geraldo Kandy Epithelial cells LM Ql (Urine sed) RARE Normal [facility] Comment on above: Performed By: #### E RUR, UMICRO #### [facility] Laboratory [address] [address] Geraldo Kandy MUCOUS NONE SEEN Normal NONE SEEN [facility] Comment on above: Performed By: #### E RUR, UMICRO #### [facility] Laboratory [address] [address] Geraldo Kandy RBC 0-2 Normal 0-2 [facility] Comment on above: Performed By: #### E RUR, UMICRO #### [facility] Laboratory [address] [place], [place] [address] Geraldo Kandy WBC 5-10 Normal NONE SEEN [facility] Comment on above: Performed By: #### E RUR, UMICRO #### [facility] Laboratory [address] [place] [id number] Geraldo Kandy XR CHEST 1 Von 01-02-2020 [...] NESS Date: 2020-01-02 18:52 Normal [facility] Encounters Encounter Date Encounter Type Care Provider Facility Start: 12-13-2023 End: 12-13-2023 Telephone encounter Shari Mckeon MD Work Phone: [facility] Start: 11-28-2023 End: 11-28-2023 ambulatory Kei Espana MD Facility:[facility] Start: 10-04-2023 End: 10-04-2023 ambulatory [facility] Start: 09-19-2023 End: 09-19-2023 ambulatory ALEXANDER A HACKENBURG Not Available Start: 09-19-2023 End: 09-19-2023 ambulatory ALEXANDER A HACKENBURG Not Available Start: 09-05-2023 End: 09-05-2023 ambulatory Kei Quintanillaitis Facility:[facility] Start: 08-22-2023 End: 08-22-2023 ambulatory Andnaina Quintanillaitis Facility:[facility] Start: 07-25-2023 End: 07-25-2023 ambulatory Andnaina Quintanillaitis Facility:[facility] Start: 07-11-2023 End: 07-11-2023 ambulatory Andnaina Quintanillaitis Facility:[facility] Start: 06-17-2023 End: 06-17-2023 ambulatory ALEXANDER A HACKENBURG Not Available Start: 04-27-2023 Telephone encounter Marisa sierra DO Work Phone: [facility] 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 Start: 04-21-2023 Refill Alexander A Maki marcum MONUMENT MASON Work Phone: [facility] Comment on above: Essential hypertensi on ([facility] Start: 04-18-2023 End: 04-18-2023 ambulatory ALEXANDER A HACKENBURG Not Available Start: 03-08-2023 End: 03-08-2023 ambulatory MARISA A PATRICIA Not Available Start: 03-01-2023 End: 03-01-2023 ambulatory MARISA A PATRICIA Not Available Start: 02-22-2023 End: 02-22-2023 ambulatory MARISA A APTRICIA Not Available Start: 02-08-2023 End: 02-08-2023 ambulatory MARISA A PATRICIA Not Available Start: 02-01-2023 End: 02-01-2023 ambulatory MARISA A PATRICIA Not Available Start: 01-28-2023 End: 01-28-2023 ambulatory SHARI MCKEON Not Available Start: 07-26-2022 End: 07-26-2022 ambulatory SHARI MCKEON Facility:[facility] Start: 06-29-2022 End: 06-30-2022 ambulatory SHARI MCKEON Facility:[facility] Start: 10-24-2020 End: 10-25-[address] SHARI MCKEON Facility:[facility] Start: 09-30-2020 End: 10-01-[address] SHARI MCKEON Facility:[facility] Start: 02-01-2020 End: 02-01-[address] CARLOS EDUARDO MENENDEZ Facility:[facility] Start: 01-30-2020 Encounter for preprocedural laboratory examination DR CARLOS EDUARDO MENENDEZ [facility] Start: 01-26-2020 End: 01-27-[address] SHARI MCKEON Facility:[facility] Start: 01-26-2020 End: 01-27-2020 Encounter for preprocedural laboratory examination DR SHARI MCKEON Facility:[facility] Start: 01-02-2020 End: 01-02-[address] BÁRBARA BLUE Facility:[facility] Start: 05-25-2018 End: 05-26-2018 Patient encounter procedure DEFAULT PHYSICIAN Facility:[facility] Plan of Treatment Date Care Activity Detail Author Start: 06-16-2024 Medicare Annual Wellness (AWV) Medicare Annual Wellness (AWV) [facility] Start: 11-13-2023 Influenza vaccination Influenza Vacc ine (#1) [facility] Start: 08-02-2023 End: 08-02-2023 Patient encounter procedure 08/02/2023 9:00 AM EDT Office Visit [facility] [address] [facility] [address] [place] [address] Marisa Ramos DO [address] [facility] [address] [place] [address] [facility] Start: 05-06-2023 Medicare Annual Wellness (AWV) Medicare Annual Wellness (AWV) [facility] Immunizations Immunization Date Immunization Notes Care Provider Fa cility 12-23-2022 Influenza, High-dose Seasonal, Quadrivalent, Preservative Free Alexander Aparicio [facility]UMENT [facility] Work Phone: [facility] 12-23-2022 SARS-COV-2 (COVID-19 ) vaccine, mRNA, spike protein, LNP, PF, 50 mcg/0.5 mL Alexander Hackenburg [facility] Work Phone: [facility] 12-23-2022 influenza virus vaccine, unspecified formulation Shari Mckeon MD Work Phone: [facility] 12-01-2021 Influenza, Seasonal, Quadrivalent, Adjuvanted Alexander Hackenburg [facility] [facility] Work Phone: [facility] 12-01-2021 Seasonal, trivalent, recombinant, injectable influenza vaccine, preservative free Alexander Hackenburg [facility] [facility] Work Phone: [facility] 12-16-2020 Influenza, High-dose Seasonal, Quadrivalent, Preservative Free Alexander Hackenburg [facility] [facility]ON Work Phone: [facility] 02-14-2020 zoster vaccine recombinant Alexander Hackenburg MONUMENT [facility]ON Work Phone: [facility] 12-07-2019 influenza, seasonal, injectable Alexander Hackenburg MON[employer] [facility]ON Work Phone: [facility] 11-13-2019 influenza, injectabl e, quadrivalent, preservative free Alexander Hackenburg [employer] [facility] Work Phone: [facility] 11-13-2019 zoster vaccine recombinant Alexander Hackenburg [employer] [facility] Work Phone: [facility] 11-12-2019 zoster vaccine recombinant Alexander Hackenburg MON[employer] [facility] Work Phone: [facility] 11-29-2018 Seasonal trivalent influenza vaccine, adjuvanted, preservative free Alexander Hackenburg [employer] Work Phone: [facility] 11-30-2017 influenza, high dose seasonal, preservative-free Alexander Hackenburg [employer] Work Phone: [facility] 11-24-2017 Seasonal trivalent influenza vaccine, adjuvanted, preservative free Alexander Hackenburg [employer] [facility]ON Work Phone: [facility] 11-18-2016 influenza, high dose seasonal, preservative-free Alexander Hackenburg [employer] Work Phone: [facility] Work Phone: 11-18-2016 pneumococcal conjuga te vaccine, 13 valent Alexander Hackenburg [employer] [facility] Work Phone: [facility] 11-18-2016 Seasonal trivalent influenza vaccine, adjuvanted, preservative free Alexander Hackenburg [employer] [facility] Work Phone: [facility] 11-18-2016 tetanus toxoid, redu greg diphtheria toxoid, and acellular pertussis vaccine, adsorbed Alexander Hackenburg [employer] Work Phone: [facility] 11-12-2016 pneumococcal polysaccharide vaccine, 23 valent Alexander Hackenburg [employer] Work Phone: [facility] 12-11-2015 influenza, high dose seasonal, preservative-free Alexander Hackenburg [employer] Work Phone: [facility] 12-30-2014 influenza virus vaccine, whole virus Alexander Hackenburg [employer] Work Phone: [facility] 12-30-2014 influenza, injectabl e, quadrivalent, preservative free Alexander Hackenburg MON[employer] [facility]ON Work Phone: [facility] 05-10-2014 pneumococcal conjuga te vaccine, 13 valent Alexander Hackenburg [employer] Work Phone: [facility] 12-13-2013 influenza virus vaccine, whole virus Alexander Hackenburg [employer] Work Phone: [facility] 01-12-2013 pneumococcal Conjuga te, unspecified formulation Alexander Hackenburg MON[employer] [facility]ON Work Phone: [facility] 01-12-2013 seasonal influenza, intradermal, preservative free Alexander Hackenburg [employer] Work Phone: [facility] 12-27-2012 pneumococcal polysaccharide vaccine, 23 valent Alexander Hackenburg [employer] [facility] Work Phone: [facility] Payers Date Payer Category Payer Unknown 2017 Medicare ANTHEM MEDICARE ADVANTAGE ANTHEM MEDICARE ADVANTAGE [id number] 2017-Present [address] [place] [address] [id number] 1959 Unknown [id number] 1945 Unknown [id number] 2.16.840.1.582518.3.579.2.647 1944 Unknown [id number] 2.16.840.1.322147.3.579.2.593 1944 Unknown [id number] 2.16.840.1.729007.3.579.2.593 1944 Unknown [id number] 2.16.840.1.018873.3.579.2.593 1944 Unknown [id number] 2.16.840.1.427923.3.579.2.593 1944 Unknown [id number] 2.16.840.1.470959.3.579.2.593 1944 Unknown [id number] 2.16.840.1.813896.3.579.2.718 1944 Unknown [id number] 2.16.840.1.707019.3.579.2.718 1944 Unknown [id number] 2.16.840.1.910889.3.579.2.125 9 1944 Unknown [id number] 2.16.840.1.468560.3.579.2.125 9 1944 Unknown [id number] 2.16.840.1.187823.3.579.2.125 9 1944 Unknown [id number] 2.16.840.1.631705.3.579.2.125 9 1944 Unknown [id number] 2.16.840.1.522573.3.579.2.125 9 1944 Unknown [id number] 2.16.840.1.434269.3.579.2.125 9 1944 Unknown [id number] 2.16.840.1.830402.3.579.2.125 9 1944 Unknown [id number] 2.16.840.1.460327.3.579.2.125 9 1944 Unknown [id number] 2.16.840.1.372599.3.579.2.125 9 1944 Unknown [id number] 2.16.840.1.206398.3.579.2.125 9 1944 Unknown [id number] 2.16.840.1.467735.3.579.2.125 9 1944 Unknown [id number] 2.16.840.1.574232.3.579.2.125 9 1944 Unknown [id number] 2.16.840.1.635186.3.579.2.125 9 1944 Unknown [id number] 2.16.840.1.215203.3.579.2.128 6 1945 Unknown [id number] 2.16.840.1.572769.3.579.2.196 1944 Unknown [id number] 2.16.840.1.890559.3.579.2.196 1944 Unknown [id number] 2.16.840.1.155095.3.579.2.196 1944 Unknown [id number] 2.16.840.1.279290.3.579.2.196 1945 Unknown [id number] 2.16.840.1.667367.3.579.2.196 Social History Date Type Detail Facility Start: 09-17-2022 Tobacco smoking stat [facility] Never smoked tobacco [facility] Start: 09-17-2022 Tobacco use and exposure Smoke less tobacco non-user [facility] Start: 04-18-2023 End: 09-19-2023 Alcohol intake Current drinker of alcohol (finding) [facility] Start: 04-18-2023 End: 06-17-2023 Alcohol intake [facility] Start: 04-18-2023 End: 06-17-2023 Tobacco use panel [facility] Start: 01-06-2023 Alcohol Comment Caffeine intak e: 1-2 cups per day [facility] Start: 1945 Sex Assigned At Not on file [facility] How often to you hav e a drink containing alcohol? 4 or more times a week [facility] How many standard dr inks containing alcohol do you have on a typical day? 1 or 2 [facility] How often do you hav e 6 or more drinks on 1 occasion? Never [facility] Clinical Notes 02-01-2020 to 12-13-2023 Telephone Encounter - Olga Lidia Saucedo - 12/13/2023 10:35 AM EDTTelephone Encounter - Olga Lidia Saucedo - 12/13/2023 10:35 AM EDTTelephone Encounter - Pati Valentino - 04/27/2023 1:09 PM EST Note Date & Type Note Facility 12-13-2023 Telephone encounter Note Patient called and would like an order for a mammogram sent over. Last one on 12/20/2022. Thank you [facility] 12-13-2023 Miscellaneous Notes Patient called and would like an order for a mammogram sent over. Last one on 12/20/2022. 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 Allergies: NKDA . 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 Allergies: NKDA . Her call back [phone] [facility] 04-21-2023 Telephone encounter Note Refills sent. [facility] 04-21-2023 Miscellaneous Notes Refills sent. documented in this encounter [facility] 07-27-2022 Note [id number] [facility] 07-26-2022 Note [facility] SUR[facility]ERY Clinical Discharge Summary PERSON INFORMATION Name RADHA CUADRA Age 77 Years 1945 Sex FEMALE Language Persian PCP SHARI MCKEON Marital Status Med Service Ambulatory Surgery Acct# Arrival 07/26/2022 05:52:10 Visit Reason SURGERY - LEFT REVERSE TOTAL SHOULDER - ARTHREX Acuity LOS 05 02:57 Address: [address] [place] [address] [place] [address] Comment: PROVIDER INFORMATION VITALS INFORMATION Vital Sign [...] REASON INCOMPLETE INFORMATION (more content not included)... [facility] 02-01-2020 Note OPERATIVE NOTE OPERATION DATE: 02/01/2020 [...] position. She was sedated by the nurse reverse unit operator. Bite block was placed in her [...] patient tolerated the procedure without any difficulties. [facility] SIGNED AND APPROVED BY: DR CARLOS EDUARDO MENENDEZ . 02/07/2020 09:15:00 [facility] Evaluation note Diagnosis Essential hypertension (CMS/HCC) Unspecified [...] section and content) DATE CREATED AUTHOR 05/27/2018 [facility] DATE CREATED AUTHOR AUTHOR'S ORGANIZ ATION 11/06/2020 [facility] pital DATE CREATED AUTHOR AUTHOR'S ORGANIZ ATION 05/12/2022 [facility] dical Specialist DATE CREATED AUTHOR AUTHOR'S ORGANIZ ATION 07/28/2022 [facility] DATE CREATED AUTHOR AUTHOR'S ORGANIZ ATION 09/26/2023 [facility] d[facility] Specialists EPIC DATE CREATED AUTHOR AUTHOR'S ORGANIZ ATION 10/06/[address] [facility] DATE CREATED AUTHOR AUTHOR'S ORGANIZ ATION 12/04/2023 [facility] Reason for Visit (unrecogniz ed section and content) Reason Comments Med Refill Reason 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 Care Teams (unrecognized sec tion and content) Lens Marker Relationship Specialty Start Date End Date Alexander Aparicio NP [address] [place] [facility] [place] [address] PCP - Cristobal FIGUEROA 03/21/21 Shari Mckeon MD [address] [place] [facility] [place] [address] PCP - General Family Medicine 07/26/22 Lens Marker Relationship Specialty Start Date End Date Alexander Aparicio NP [address] [place] [facility] [place] [address] PCP - Cristobal FIGUEROA 03/21/21 Shari Mckeon MD [address] [place] [facility] [place] [address] PCP - General Family Medicine 07/26/22 Lens Marker Relationship Specialty Start Date End Date Alexander Aparicio NP [address] [place] [facility] [address] PCP - Cristobal FIGUEROA 03/21/21 Shari Mckeon MD [address] [place] [facility] [address] PCP - General Family Medicine 07/26/22 FOR [...] BE BASED ON THE PRIMARY CLINICAL RECORDS. [facility] [facility] provides no warranty or guarantee of the accuracy or completeness of information in this document.
== END 2023-12-14 08:13 | disposition home or self-care (01) ==
LOC: RAD 08:14
PROVIDERS: PCP Family Medicine; Visit Provider Nurse Practitioner
DX: M47.814 Spondylosis without myelopathy or radiculopathy, thoracic region (principal)
CPT/HCPCS: 72070

== ENCOUNTER 2024-01-09 07:30 | Day surgery (SDC) | payer MEDICARE, SELFPAY ==
--- OUTSIDE RECORDS SUMMARY | 2024-01-09 07:33 | XMS_ITS | CCD ---
Author Organization [facility] Care Team Providers Care Associate Manager Name Role Phone PHYSICIAN, DEFAULT Admitting [...] Unavail able Marisa Ramos Attending Unavail able Albina OUTSIDE EVENT SALES SPECIALIST, Alexander Plascencia Unavailable Shari Mckeon MD Primary Care Provider ALEXANDER APARICIO Referring Unavailab le SHARI MCKEON Primary Care Unavailable Jovi JAIMES, Kei Brian Attending Unavailable Gieditis , Kei Brian Attending Unavailable Giedraitis , Kei Brian Attending Unavailable Gieddeepak JAIMES, Kei Brian Attending Unavailable Gihira JAIMES, Kei Brian Attending Unavailable Jovi JAIMES, Kei Brian Attending Unavailable ALBINA, ALEXANDER Plascencia Attending [facility] darinel LEVYAMIKESHARI DONOHUE Attending Unavailable SHARI MCKEON Referring Unavailable MARISA RAMOS Attending Unavailable MARISA RAMOS Referring Unavailable MARISA RAMOS Attending Unavailable RICHARD, MARISA Plascencia Attending Unavailable RICHARD, MARISA Plascencia Referring Unavailable MARISA RAMOS [facility]ending [facility]ending [facility], [facility]ending [facility] ALEXANDER Plascencia Referring Unavail darinel LEYVAMIKESHARI DONOHUE Referring Unavailable Allergies Allergy Classification Reported Allergen(s) Allergy Type Date of Onset Reaction(s) Facility (2 sources) Alendronate; Translations: [Fosamax] Drug Allergy [facility] (5 sources) Alendronate Drug Allergy 09-10-2020 Unknown [facility] Medications Current Medications Medication Drug Class(es) Dates Sig (Normalized) Sig (Original) acetaminophen 325 mg / butalbital 50 mg / caffeine 40 mg oral tablet (5 sources) Barbiturate, Central Nervous System Stimulant, Methylxanthine [...] 05/04/2023 Active atorvastatin 20 mg oral tablet (5 sources) HMG-CoA Reductase Inhibitor Start: 09-28-2023 take [...] 0 04/18/2023 04/23/2023 Active CALCIUM-VITAMIN D PO (5 sources) Start: 06-29-2022 CALCIUM-VITAMIN D PO 2 [...] / salmeterol 0.05 mg/actuat dry powder inhaler (5 sources) Corticosteroid, beta2-Adrenergic Agonist Start: 12-09-2023 take [...] / losartan potassium 100 mg oral tablet (6 sources) Thiazide Diuretic, Angiotensin 2 Receptor Aguilar [...] 01/18/2023 04/21/2023 Discontinued Multiple Vitamin (multivitamin) capsule (5 sources) take 1 capsule by mouth in [...] Active traZODone hydrochloride 50 mg oral tablet (6 sources) Serotonin Reuptake Inhibitor Start: 12-22-2023 take 1 tablet by mouth at bedtime traZODone (Desyrel) 50 MG tablet Indications: Primary insomnia Take 1 tablet (50 mg) by mouth at bedtime 90 tablet 11 12/22/2023 Active Start: 09-26-2023 End: 12-22-2023 take 1 tablet by mouth at bedtime traZODone (Desyrel) 50 MG tablet Indications: Primary insomnia Take 1 tablet (50 mg) by mouth at bedtime 90 tablet 1 09/26/2023 12/22/2023 Discontinued (Reorder) Start: 04-08-2023 take 1 tablet by abhinav th at bedtime traZODone (Desyrel) 50 MG tablet Indications: Primary insomnia Take 1 tablet (50 mg) by mouth at bedtime 90 tablet 1 04/08/2023 Active turmeric extract 500 mg oral capsule (5 sources) Turmeric 500 MG tablet Orally Active Turmeric 500 MG tablet Orally 0 Active Problems Active Problems Problem Classification Problem Date Documented Da te Episodic/Chronic Asthma (10 sources) Mild intermittent asthma; Translations: [Mild intermittent asthma with status asthmaticus] Onset: 06-12-2017 Resolved: 06-17-2023 07-15-2022 Chronic Chronic kidney disease (5 sources) Chronic kidney disease stage 3B ; Translations: [Stage 3b chronic kidney disease (HCC)] Onset: 07-15-2022 07-15-2022 Chronic Chronic obstructive pulmonary disease and bronchiectasis (6 sources) Chronic obstructive pulmonary disease, unspecified; Translations: [Chronic obstructive lung disease] Onset: 05-18-2011 07-15-2022 Chronic Disorders of lipid metabolism (10 sources) Pure hypercholesterolemi a; Translations: [Pure hypercholesterolemi a, unspecified] Onset: 07-15-2022 07-15-2022 Chronic Essential hypertension (12 sources) Essential (primary) hypertension; Translations: [Essential hypertension] Onset: 02-14-2020 Resolved: 06-17-2023 04-21-2023 Chronic Headache; including migraine (20 sources) Migraine, unspecified, not intractable, without status migrainosus; Translations: [Migraine without aura, not refractory ] Onset: 03-29-2015 Resolved: 06-17-2023 07-15-2022 Chronic Heart valve disorders (20 sources) Nonrheumatic aortic (valve) stenosis; Translations: [Nonrheumatic aortic (valve) stenosis with insufficiency] Onset: 06-12-2017 Resolved: 06-17-2023 Chronic Miscellaneous mental health disorders (1 source) Primary insomnia; Translations: [Primary insomnia] 12-22-2023 Chronic Nonspecific chest pain (1 source) Chest pain, unspecified; Translations: [Chest pain, unspecified] Onset: 10-04-2023 Episodic Osteoarthritis (20 sources) Unspecified osteoarthritis, unspecified site; Translations: [Arthritis of left knee] Onset: 06-22-2017 Resolved: 06-17-2023 07-15-2022 Chronic Osteoporosis (10 sources) Senile osteoporosis; Translations: [Age-related osteoporosis without current pathological fracture] Onset: 11-04-2017 Resolved: 06-17-2023 07-15-2022 Chronic Other connective tissue disease (5 sources) Artificial knee joint present; Translations: [Presence of unspecified artificial knee joint] Onset: 07-15-2022 07-15-2022 Chronic Other connective tissue disease (1 source) History of reverse prosthetic total arthroplasty of left shoulder; Translations: [Presence of left artificial shoulder joint] 04-27-2023 Chronic Other hereditary and degenerative nervous system conditions (10 sources) Restless legs; Translations: [Restless legs syndrome] Onset: 10-26-2017 Resolved: 06-17-2023 07-15-2022 Chronic Other lower respiratory disease (5 sources) Shortness of breath; Translations: [SHORTNESS OF BREATH] Onset: 09-30-2020 Episodic Other nervous system disorders (5 sources) Difficulty walking; Translations: [Difficulty in walking, not elsewhere classified] Onset: 07-15-2022 07-15-2022 Chronic Other nervous system disorders (5 sources) Chronic pain; Translations: [Other chronic pain] Onset: 08-03-2022 08-03-2022 Chronic Other screening for suspected conditions (not mental disorders or infectious disease) (1 source) Patient encounter status; Translations: [Encounter for screening mammogram for malignant neoplasm of breast] 12-13-2023 Episodic Residual codes; unclassified (5 sources) Insomnia; Translations: [Other insomnia] Onset: 07-15-2022 07-15-2022 Chronic Past or Other Problems Problem Classification Problem Date Documented Da te Episodic/Chronic Fever of unknown origin (4 sources) Fever, unspecified; Translations: [FEVER UNSPECIFIED] Onset: 01-02-2020 Episodic Fluid and electrolyte disorders (1 source) Dehydration; Translations: [DEHYDRATION] Onset: 01-04-2020 Episodic Gastritis and duodenitis (6 sources) Gastritis, unspecified, without bleeding; Translations: [Bile-induced gastritis] Onset: 02-14-2020 Resolved: 06-17-2023 07-15-2022 Episodic Heart valve disorders (10 sources) Systolic murmur; Translations: [Cardiac murmur, unspecified] Onset: 07-15-2022 Resolved: 06-17-2023 07-15-2022 Episodic Immunizations and screening for infectious disease (1 source) Contact with and (suspected) exposure to other viral communicable diseases; Translations: [CONTCT EXPS OTH VIRL COMMUNICABL DZ] Onset: 01-30-2020 Episodic Mood disorders (3 sources) Mood disorders Onset: 06-17-2023 06-17-2023 Other aftercare (1 source) Other long term care phlebotomist (current) drug therapy; Translations: [OTH ONLINE TUTOR CURRENT DRUG THERAPY] Onset: 02-14-2020 Episodic Other aftercare (1 source) intermediate card tender (current) use of aspirin; Translations: [ONLINE TUTOR CURRENT USE OF ASPIRIN] Onset: 01-04-2020 Episodic Other gastrointestinal disorders (4 sources) Dysphagia, unspecified; Translations: [DYSPHAGIA UNSPECIFIED] Onset: 02-01-2020 Episodic Other gastrointestinal disorders (5 sources) Dysphagia; Translations: [Dysphagia, unspecified] Onset: 07-15-2022 Resolved: 06-17-2023 07-15-2022 Episodic Other lower respiratory disease (1 source) Cough; Translations: [COUGH] Onset: 01-04-2020 Episodic Other non-traumatic joint disorders (5 sources) Derangement of left shoulder joint; Translations: [Other specific joint derangements of left shoulder, not elsewhere classified] Onset: 07-15-2022 Resolved: 06-17-2023 07-15-2022 Chronic Residual codes; unclassified (5 sources) Poor sleep pattern; Translations: [Other sleep disorders] Onset: 08-21-2020 Resolved: 06-17-2023 08-03-2022 Chronic Residual codes; unclassified (5 sources) Postmenopausal state; Translations: [Asymptomatic menopausal state] Onset: 06-28-2015 Resolved: 06-17-2023 08-03-2022 Episodic Urinary tract infections (1 source) Urinary tract infection, site not specified; Translations: [UTI SITE NOT SPECIFIED] Onset: 01-04-2020 Episodic Results Test Name Value Interpretation Reference Range Facility BI MAMMOGRAM SCREENING TOMOS YNTHESIS BILATERALon 10-16-2024 BI MAMMOGRAM SCREENING TOMOSYNTHESIS BILATERAL This is a summary report. The complete report is available in the patient's medical record. If you cannot access the medical record, please contact the sending organization for a detailed fax or copy. Examination: BI MAMMOGRAM SCREENING TOMOSYNTHESIS BILATERAL Clinical History: screening Technique: Screening digital mammography study of both breasts was performed with 2-D and 3-D tomosynthesis imaging. Study was compared to the prior exam dated 12/20/2022. Findings: There is no evidence of interval dominant spiculated mass, grouped microcalcifications, or skin thickening which would be suggestive of malignancy. Benign-appearing vascular calcifications are noted bilaterally. IMPRESSION: Impression: No specific evidence of malignancy seen in either breast. Breast Density: There are scattered areas of fibroglandular density BiRads: BIRADS 2 - Benign Recommended follow-up: Routine Screening Mamm ELECTRONICALLY SIGNED BY: Jayant Peters M.D. Normal Not Available XR CHEST 2 VIEWSon [...] Not Available Consent Formson 07-27-2022 Consent Forms [id number] Discharge Instructions [id number] MAGR Intraoperative Recordon 07-27-2022 MAGR Intraoperative Record MAGR Intra-Op Record Summary Primary Physician: Marisa Ramos DO Finalized Date/Time: 07/27/22 09:45:04 Pt. Name: CHRISTI TRACIJANELLE SALINAS /Sex: 1945 FEMALE Med Rec #: [id number] Physician: Marisa Ramos DO Financial #: [id number] Pt. Type: D Room/Bed: / Admit/Disch: 07/26/22 [...] Marisa Ramos William MD Derry RN, Jania Caldeorn DO Role Performed Surgeon - Primary Anesthesiologist of Jai Alai Player Record Time In 07/26/22 07:39:00 07/26/22 07:39:00 07/26/22 07:39:00 Time Out 07/26/22 09:49:00 07/26/22 09:49:00 07/26/22 09:49:00 Procedure Arthroplasty Shoulder Arthroplasty Shoulder Arthroplasty Shoulder Total Reverse(Left) Total Reverse(Left) Total Reverse(Left) Last Modified By: Mode GOLDMAN, Jania Coello RN, JaniaJania Cordero RN 07/26/22 09:49:54 07/26/22 09:49:54 07/26/22 09:49:54 Entry 4 Entry 5 Entry 6 Case Attendee Fahad SUPERVISOR SOAKERS, Lisa Martinez CST, CST SUPERVISOR SOAKERS/CSFAZOE SUPERVISOR SOAKERS Role Performed Scrub Personnel Scrub Personnel Blade Grinder Time In 07/26/22 07:39:00 07/26/22 07:39:00 07/26/22 [...] to chemical sources (more content not included)... [facility] Outside Recordson 07-27-2022 Outside Records [id number] [facility] Provider Orderson 07-27-2022 Provider Orders [id number]#1.00OTGTIFF [facility] Telemetry Stripson Telemetry Strips [id number]#1.00OTGTIFF [facility] Anesthesia Noteon 07-26-2022 Anesthesia Note Patient: TRACI [...] 07/26/2022 11:51 EDT] Remy Da Silva MD [facility] Anesthesia Note Patient: TRACI BARRAZA Age: 77 [...] obstructive pulmonary disease (COPD) / SNOMED CT 91979728 / Confirmed Heart murmur / SNOMED CT 123438567 / Confirmed Hyperlipidemia / SNOMED CT 43612217 / Confirmed HTN (hypertension) / SNOMED CT 7612786656 / Confirmed Histories Family History: COPD Mother Father Procedure history: Arthroplasty of left knee (6236214151). Arthroplasty of right knee (9023592909). Carpal tunnel release (069624984). Comments: 06/29/2022 13:15 Dorota De Leon RN bilat Colonoscopy (682112120). EGD - Esophagogastroduodenoscopy (1020684569). Disorder of rotator cuff (2529547059). Comments: 06/29/2022 13:14 Dorota De Leon RN [...] Oriented. Review / Management Laboratory Results Plan [employer]hesiologists#(ASA) physical status classification: Class [...] 07/26/2022 08:23 EDT] Remy Da Silva MD [facility] Inpatient Patient Summaryon 07-26-2022 [place] [address] Patient Discharge Instructions Name: TRACI BARRAZA : 1945 Patient Address: [address] [place] [address] Primary Care Provider: Name: SHARI MCKEON After you are discharged if you find you have any questions, please, call [phone] ext [phone] to speak to a nurse. Discharge Diagnosis: [...] alcohol and/or drug addiction problems; contact the [facility] 04/10 Crisis Hotline -Text 4HOPE to 217810. If you received any narcotics, sedation, or [...] business decisions or sign any legal documents [facility] would like to thank you for allowing us to assist you with your healthcare needs. The following includes patient education materials and information regarding your injury/illness. TRACI BARRAZA has been given the following list of follow-up instructions, prescriptions, and patient education materials: Follow-up Instructions With: Address: When: Marisa SniderRichard [address] [place] [address], [address] [place] [address] Business (1) 08/03/2022 11:00 AM Medications During [...] fingers frequently (more content not included)... Normal [facility] MAGR Intraoperative Recordon 07-26-2022 MAGR Intraoperative Record MAGR Intra-Op Record Summary Primary Physician: Finalized Date/Time: 07/26/22 07:42:32 Pt. Name: TRACI BARRAZA/Sex: 1945 FEMALE Med Rec #: [id number] Physician: Marisa Ramos DO Financial #: [id number] Pt. Type: D Room/Bed: / Admit/Disch: 07/26/22 [...] Warga, Laura RN Role Performed Anesthesiologist of Jai Alai Player Jai Alai Player Record Time In 07/26/22 07:13:00 07/26/22 07:13:00 07/26/22 07:13:00 Time Out 07/26/22 07:38:00 07/26/22 07:38:00 07/26/22 07:38:00 Procedure Interscalene Block(Left) Interscalene Block(Left) Interscalene Block(Left) Last Modified By: Kimberley Le RN, Margaret RN Klaehn, Margaret RN 07/26/22 07:39:31 07/26/22 07:39:31 07/26/22 07:39:31 Entry 4 Case Attendee Amy Bates RN Role Performed Jai Alai Player Time In 07/26/22 07:13:00 Time Out 07/26/22 [...] Stretcher Post-op Destinat (more content not included)... [facility] MAGR PACU Recordon 3 MAGR PACU Record MAGR PACU Record [facility] Primary Physician: Marisa Ramos DO Finalized Date/Time: 07/26/22 10:38:28 Pt. Name: TRACI BARRAZA/Sex: 1945 FEMALE Med Rec #: [id number] Physician: Marisa Ramos DO Financial #: [id number] Pt. Type: D Room/Bed: / Admit/Disch: 07/26/22 05:52:10 - Institution: PACU Case Times MAGR Entry 1 In PACU I 07/26/22 09:51:00 Discharge from PACU 07/26/22 10:35:00 I Last Modified By: Warner Bolton RN 07/26/22 10:38:23 Finalized By: Warner Bolton RN Document Signatures Signed By: Warner Bolton RN 07/26/22 10:38 [facility] MAGR Postoperative Recordon 07-26-2022 MAGR Postoperative Record MAGR Phase II Record Summary Primary Physician: Marisa Ramos DO Finalized Date/Time: 07/26/22 12:01:17 Pt. Name: TRACI BARRAZA/Sex: 1945 FEMALE Med Rec #: [id number] Physician: Marisa Ramos DO Financial #: [id number] Pt. Type: D Room/Bed: / Admit/Disch: 07/26/22 [...] Signed By: Annamarie Samuels RN 07/26/22 12:01 [facility] Preoperative Recordon 0 [facility]-2022 [facility] Pre-Op Record Summary Primary Physician: Marisa Ramos DO Finalized Date/Time: 07/26/22 07:44:03 Pt. Name: TRACI BARRAZA /Sex: 1945 FEMALE Med Rec #: [id number] Physician: Marisa Ramos DO Financial #: [id number] Pt. Type: D Room/Bed: / Admit/Disch: 07/26/22 [...] By: Kimberley Le RN 07/26/22 07:44 Normal [facility] Operative Report - Surgeon/P belkiskenisha 07-26-2022 Operative Report - Surgeon/Physician Preoperative diagnosis: [...] Estimated blood loss: 50 Complications: None Findings: Vppb-ur-blfo in the glenohumeral joint Procedure summary: Patient [...] on: 07/26/2022 09:35 EDT] Marisa Ramos DO [facility] Patient Handouton 07-26-[address] [...] or concerns, please call the office at [phone] 7. Follow up as scheduled [facility] XR Shoulder 1 View Lefton XR [...] MD 07/27/22 4:01 pm Technologist: JORDON RUVALCABA [facility] Comment on above: Order Comment: chey regalado status post shoulder replacement Progress Note - Nurseon 07-12 Progress Note - Nurse Pre-op call made to pt. Pt states understanding of arrival time of 0600 on 07/26/22 and NPO after MN. [Electronically Signed on: 07/23/2022 09:27 EDT] Shantel Gonsalez RN [Verified on: 07/23/2022 09:27 EDT] Shantel Gonsalez RN [facility] Coding Summaryon 07-02-2022 Coding Summary HTMLBase 64 FziubmsmOAf6nEh+PGhlYWQ+PE1F TBNzM75swWWvyK9UN2oSPM7HEQYW LIBJQP7APE9qhTA8PQilC4WvrmSr RzpgsJLuQD40PDf7UDG5xBopTFvg uO9gfZCrY9m6WiCsLG32rZ21AOwp JVVsZzY7XgQfrlsbfQTy O4dbNkRcaXBoMxn+PHRhYmxlIHdp OWAsGWbtIAEiLjIvvEckYB2rHw6k ZGVyLWNvbGxhcHNlOiBj w0iiHFJcSNsiVR7vmWfmL4LgtSA7 RUGvc9v8Ti78bHU+PGWcEFU2xCqa GPgzn202LmYzu9naYDN3 aHUlFSlvLZW0U98nf1W0YJRaLWDt QWJ0qCC1fU1lqGundewhC4HimFNq EqP8EWU7kJHobR2pyUum zecrlZ5cJfd+O70XDG8LIQYUZR8M Ool2E6PcAzxniAB+RG21IEHjEW21 pHDkoFLlh6oyyJf1XtHq WQAdLXO5wZsxDBlet5HuUBTyE87i eQUjq3Y4UXVhkXrreVEiFlZweRC0 oD3fNQoaegvee0hmsxur Uysxm8ztby93iI44G75hXJqlGRAr SZV7EXCfGHPbzRgclx0mdS0gCy9+ DUxsk1ovy6ctzCb1OxMl MKPjavCzsBnsBXU2c5BbXp30Z6Os gGmec4SsPye2wa45hVXqh4E0yTK3 ARmkWCBcfU7hKEbqKyJ9 FVWaHkOynP97yWGvZNhrKa0clXxg qGxzWE2gPMSlqghkKUOywY8kIPCj wYAvzUgpSH3yIAKgplei b293VqQoZUU9MGIftHKiG4IebP1i IbFpJZWcVULlI8GhcEQpLJdiM630 CVbwSwR5VHGycqPrC2Ru QQEgrVtmOfX2e2G9Hy7Ak2Mgiujx RSM3TApfHWY4KgEcRnWeGkX2L4Bz Lzp3BNOwlRacRV5fI1Zj BJVuwxngxjpudBK3DSMqPNUvzS23 cZDkUZtqLx2lp8O1k474MHVkBHDi bA62Ts8gcSehCCYrbTRE nB1vdyayz3klpacaAnHwTPNbHLd0 VGy8CCNfnObvTaWkPJH8CkK3KIA9 cNFeoJ3eqStnumjxoH7e Oyc+O28nqQ4jQYE5BJC2ujcbOYHp qlNmCD83VW19N2FpYnmcmUBozCB+ ELHtwjHspQfdAJ1wLmMb f5ycx5KhWQouG8IvBHCbXJhlKag5 XZItOFS5kKD8rP4mYINbHYrwm6Z4 mUR7R9FawnZcmx3gd3ax EWHpUVrvQ74muLUpo8F9RSGcnQP8 LYAbrCjaZcUarN19Btz+PGNvbGdy s8UtItkny9lql2kyxRv0 FpEbOPWodfHtuIqlXYW5f6PcEm23 L69wPPeyVHSkSNIjETXiQBOvjEht wo9rgI6qLk8+PGNvbCB3 fUZ1gR8lTKNjMiY1HZgvW989HjMl jZPhFjpon9spv6ypkTd9RwLgRSDb teOxrIctBLU8e3WjFd48 D45kCEcwKTNtXOEgHYJsQDUqeBww hn6dqE4dMl0+ZV5iq8reyd10gS37 dHI+LCYxJHN1pAgvWIid FAWdyX8bGKauTaL1QLEjTlJviZ94 zEOsQYpmLz0onCdvmLabKZ0iKNWv mjajw236QeOoc6hzMSJp sYRkBYbeCWA5Q68pn7Z6CFRcRWWc AUG8jGU6uB4lxVjkyhsbeRVvtCdq gpNzuSyaXKfpCKziW464 IHRvcDsnPlBhdGllbnQgTmFtZTo8 Y3CtFmu4GXEebJbvTV9ubVFnDDet Iz3pkNmcrAafCK8eWRNd wntzi835VpVyb3cxJBBwhNBySSmd DBK7E63oc4X0JNTnSUWnRJR2bXI9 bL4gdDylzsckfLVhcRzq qlJafXiaUCcsDAqvQ160IIQgmWfw GeXctwVmFJXcuGD8IY09JA12pMOn e2N0zBF7K1GdJGQkbxtu gajjvEW6OMKdGYKfiO44Jm6ekQxs Xr1hPKZeJIL6CBCypBCgN4TnjF8v XbTqZMGrVTZlM0SijIUe UGhjS221GXjvHsG2UVYplmGcP2Cf KFFjdFzbIgT1p4N8Bx2WC2V7IQ76 VV24hEUey9M6pIB3Q8Lw PQTketwlbiqjcCS8VXFdBVRolT77 Bc3cfIyfDu8xBCYiKQV2YSDkxZGm S4TlzU9eRpWoQOEhAVJe S6RqrLViGAdzI633HEchEnN8WZVp amNiB3PbDPHpmUanQzE6q8M5Uk4X MBm5QO93VY01nIPjs7O7 pJU8D2KbWKHujakunpgorWO3ZDXt VQNlbX61Ri6hrVhkHl3yZTSlQFM9 KNByuXCxX7EwsX1zWrCw RWVwHOQeP1XtjPXmZDaxQ631NObu WeP0GTFhjsZsA9JkHWJpnFnpIpH8 h7Z2Sd7SKXTrRR74ZUC0 uOW8QH22DX68A1DjSmdjjNEsoUP+ PHRhYmxlIHdpZHRoPScxMDAlJyBz gEzsBX5tVp9gLBGtBARr fLdwhMZsZpOwg8fyZSCpFDrsBQ9z uXgqF5RlnDQ5OVUyl1r2Ih67Y50h C7RzrIT+AEQfeUV7fCS6 yZ8zMqWqFdP6PSpdX320OxYcjOSj Qpwwo6ycj2htxYb5OxR3MFSmrxKd tHesTMX5v0NrNu30M00p CMzjKXVwFZIfTHJdKSFlvLyqhh6m cM5oNw3+NBBteXZ8wBW7qP6zZtPz TrJ4UPkzF346PmDuzYRk Ikqfk1rcm7oibRb2FsIuSEEekhHk rPgvAJJ8c8UdUr34F2EvyYqex6Hl Tye2rj54yKTmd6C8cUK0 U2SdYSLucaauiMLqlXfjYC2tMLXz syfeWMKqzI3dZOXjH8k3GkCsDrS3 ILkhW0ZeqiU4VXYgpQIt FNluYJS9U83wp7V7WLVoCWQtLLR3 nMG3gM7tdUrolhnqdUBgcTkuhxCg eBvnJKpwJOriK548BANc vEfsJAXkcZ7pPDUxhRIqfUkhVO4s FLYipxjhPewGSGZfAKtHJZvcTK8M RKi7A8BgIpw0RJZzxNzc NU2dfNTtSHdqOr4ggAnafNdpIQ1w SBBkugwzPGSwsZ0xVFCejFVjkYnj FV6rTDXkwswqv220GvNe YVL6UOVkdVJwX7OtqY3kFkLrMFIw XBEwC5IbcFAnATwyV828SThyKwQ5 YSVzhiSzH8ZrTXOwpVjn EyK4o0L9In0mXa2xIt9oXWD5HY39 EU87nYTdg4Q8kYP0G0CgOFIefzus kufjjEL7EDRrRVKduK40 bKIiINfaAc9me9R9v126ASWjNXKv sJ34Wl5ncLppSOLbfGMLeF1apsmc p1bpwsdqRcXhFZDnWEh0 LAo4QBQkyQzlPvTjRGP0MzJ6CRK4 jYJzsS5tvQshrtsrjE2wOkr+Nzgg OKDfcgL5J4RhPdx1WWHb sNolAG8auEOnHPdgQa6nkTzxpDvf CD4lAGGgpuwtFMErlQ0dPPCtbJIm dDhhWZ0xFMBxqyovd266 SgOoYWQ8KFSukEFyQ9JkyO6eEpHw DEJgYIQeB8JkdFYoMRokH886DAxi IvB8INKmlnSnO7DtMOSy yWudOmV5c9Z8Yw2JYO1MBCA7G6Bg Ihm6IANkdAgbVB6avGUsBDzpQp4t xNqjdZymKH1kOIIhirmg NTBtpB6zMUVhfUYhnVpcEK7kYJYd zpamt994WdLmVGU2ZMVwgWKxR0Bc qY0oJrKqUOWyWZWeC8Bm oQAiVVmcX531WEliFsX1HASgqjJn A1SzXKJtmUhsSoE6s6R2Vg6BKPuh dGQ+EK69vm79E1SsZaxx Gjr9WLPaFUW5iCE1hS1dLVOiPLwq p6A6kVR5T5GfgvWkch8ik8sgQPNt EUkgU10hqBLei6G8DRHy rRJ6UBVeyTnmMtZoeS98Aiv+PGNv kJfwm7CiWfugj5fbi4ifmMx0TwEu HBUgmfDlbRtwUGS0c1Gm Fm10O92gMMkaZPDzWBByWLEwPKIj pXomzo6paD3uLp6+DSCquOY3fEE4 mJ3qAvOlLqM5IVrkO504 ZwEjdLVgMbzyw4wre8wcuKw2NeYt UOJvuySidPqfZUQ3u8NtOe57M6Qb zUjnh1BvBhq0hm39nSWs r0U5qOA6D8OlCUPffmjbePKgpKdp NU9oADJwwcwfKAMlhD9pKEDwR3w7 QbAqStQ8MAbrD7GfjoP8 CAWmeQPzWMRhuPMDaU0riwawc6ii apdgLxWiFQIrCFs1RWt0YWXsbHtp UqWsUCB6YbC0PVO6hRWj yI1umIiyzdzvcW0vYbh+ADr8t7nd vDTuLQ9tyCB6FL64JG19jFYkx6H6 yVH0M3KyRIVpeghlvmgt wHM9ZWDnYVPmlJ44Vl3jbDylLq1n CXUqRML0WBAywOIbZ2PfsP0dYpNm BQWyWLFwT8TouTDbRUgs C426DJggBuB8LEDdaeUoN8AzXAVe bMkpBeP4h3X7Ts7VFK10MI62GH01 oEFbl8I2zUA0V1OnNNMx tuqrkxursNZ7ORYeXHTgzB46Rf2q fBvrYd6cASJrXRC5SAFpvSSaL1Gb vU9mIwScURXtNXAnA6Lx lJGiIBynB536RPtvHlD6LRAxljXb Z9SzUURfqSahFeK8a6Z4Sg9LDh30 EA97YG20sCWkz8L5lZX7 W0KtVZUisozftkymeDS9DPNaWAOe bN23Yg2apYfuMy5pLJZsNTD8AEJm dLRjT8VmoA0lZgZvYUKn SQFvV8VbxEIaMUanE140OIsxPaB6 RPXvmfMtC4YvCOPcgTvrWfH7f3S7 Ug6TQYzbjmu3K9MjGqrh dHI+PK43QBGxLP34mWAfzHGsf1vi tDs4NgZoQORwSUF3qYwrKSith8Gj OKEsY15cdFJua9F1TGIl bGx (more content not included)... [facility] C MRSA Screenon 06-30-2022 C MRSA Screen Negative [facility] Comment on above: Performed By: #### 1 [id number] ####[facility] (DEFAULT)[address] [place] [id number] Progress Note - Nurseon 06-12 Progress Note - Nurse Dr. Castro reviewed PAT notes for upcoming surgery 07/26/2022. No new orders at this time [Electronically Signed on: 06/30/2022 11:45 EDT] Annamarie Samuels RN [Verified on: 06/30/2022 11:45 EDT] Annamarie Samuels RN [facility] Provider Orderson 06-30-2022 Provider Orders [id number] [facility] .Auto Diff 1on 06-29-2022 Auto [place] % 10 % Normal 03-25 [facility] Comment on above: Performed By: #### [id number] ####[facility] (DEFAULT)[address] [place] [address] Baso Abs# 0.0 x10 Normal 0.0-0.2 [facility] Comment on above: Performed By: #### 7 [id number] ####[facility] (DEFAULT)[address] [place] [address] Basophils/100 WBC (Bld) 0.7 % Normal 0.2-2.0 [facility] Comment on above: Performed By: #### 7 [id number] ####[facility] (DEFAULT)[address] [place] [id number] Eos Abs# 0.6 x10 High 0.0-0.4 [facility] Comment on above: Performed By: #### 7 [id number], [id number], [id number] ####[facility] (DEFAULT)[address] [place] [address] Eosinophils/100 WBC (Bld) 8.5 % High 0.9-4.0 [facility] Comment on above: Performed By: #### 7 [id number], [id number], [id number] ####[facility] (DEFAULT)[address] [place] [address] Lymph Abs# 1.6 x10 Normal 1.3-2.9 [facility] Comment on above: Performed By: #### 7 790558, [id number], [id number] ####[facility] (DEFAULT)[address] [place] [address] Lymphocytes/100 WBC (Bld) 24 % Normal 14-48 [facility] Comment on above: Performed By: #### 7 859214, [id number], [id number] ####[facility] (DEFAULT)[address] [place] [address] [place] Abs# 0.7 x10 Normal 0.0-0.8 [facility] Comment on above: Performed By: #### 7 564939, [id number], [id number] ####[facility] (DEFAULT)[address] [place] [address] Neut Abs# 3.8 x10 Normal 1.5-9.2 [facility] Comment on above: Performed By: #### 7 563889, [id number], [id number] ####[facility] (DEFAULT)[address] [place] [address] 20621 Neutrophils/100 WBC (Bld) 57 % Normal 44-88 [facility] Comment on above: Performed By: #### 7 109969, [id number], [id number] ####[facility] (DEFAULT)[address] [place] [address] 81521 BMP Standardon 06-29-2022 eGFR Non AA 33 mL/min/1.73m2 Invalid Interpretation Code [facility] Comment on above: Performed By: #### 7 465534, [id number], [id number] ####[facility] (DEFAULT)[address] [place] [address] 21213 eGFR AA 40 mL/min/1.73m2 Invalid Interpretation Code [facility] Comment on above: Performed By: #### 7 436951, [id number], [id number] ####[facility] (DEFAULT)[address] [place] [address] 83566 Anion gap [Moles/Vol] 8.9 mmol/L Normal 5.0-19.0 [facility] Comment on above: Performed By: #### 7 313953, [id number], [id number] ####[facility] (DEFAULT)[address] [place] [address] 23740 Calcium [Mass/Vol] 9.3 mg/dL Normal 8.9-10.3 [facility] Comment on above: Performed By: #### 7 842530, [id number], [id number] ####[facility] (DEFAULT)[address] [place] [address] 38485 Chloride [Moles/Vol] 102 mmol/L Normal 101-111 [facility] Comment on above: Performed By: #### 7 802307, [id number], [id number] ####[facility] (DEFAULT)[address] [place] [address] 15448 CO2 [Moles/Vol] 28 mmol/L Normal 21-32 [facility] Comment on above: Performed By: #### 7 667640, [id number], [id number] ####[facility] (DEFAULT)[address] [place] [address] 89347 Creatinine [Mass/Vol] 1.53 mg/dL High 0.60-1.30 [facility] Comment on above: Performed By: #### 7 454040, [id number], [id number] ####[facility] (DEFAULT)[address] [place] [address] 76554 Glucose [Mass/Vol] 107.0 mg/dL Normal 74.0-118.0 [facility] Comment on above: Performed By: #### 7 254014, [id number], [id number] ####[facility] (DEFAULT)[address] [place] [address] 16950 Osmolality 279 mOsm/L Invalid Interpretation Code [facility] Comment on above: Performed By: #### 7 231775, [id number], [id number] ####[facility] (DEFAULT)[address] [place] [address] 60053 Potassium [Moles/Vol] 3.9 mmol/L Normal 3.6-5.1 [facility] Comment on above: Performed By: #### 7 028615, [id number], [id number] ####[facility] (DEFAULT)[address] [place] [address] 30375 Sodium [Moles/Vol] 135.0 mmol/L Low 136.0-144 . 0 [facility] Comment on above: Performed By: #### 7 215541, [id number], [id number] ####[facility] (DEFAULT)[address] [place] [address] 85196 Urea nitrogen [Mass/Vol] 36 mg/dL High 8-26 [facility] Comment on above: Performed By: #### 7 989406, [id number], [id number] ####[facility] (DEFAULT)[address] [place] [address] 70814 Urea nitrogen/Creatinine [Mass ratio] 23.5 mg/mg High 4.6-16.2 [facility] Comment on above: Performed By: #### 7 476121, 46386069, [id number] ####[facility] (DEFAULT)[address] [place] [address] 98147 CBC w/ Auto Diffon 3 Erythrocyte distribution width (RBC) [Ratio] 12.8 % Normal 11.5-15.0 [facility] Comment on above: Performed By: #### 7 641781, [id number], [id number] ####[facility] (DEFAULT)[address] [place] [address] 37798 Hematocrit (Bld) [Volume fraction] 36.4 % Normal 33.7-40.4 [facility] Comment on above: Performed By: #### 7 297146, 00082868, [id number] ####[facility] (DEFAULT)[address] [place] [address] 10725 Hemoglobin (Bld) [Mass/Vol] 12.2 g/dL Normal 11.3-15.9 [facility] Comment on above: Performed By: #### 7 397985, [id number], [id number] ####[facility] (DEFAULT)[address] [place] [address] Man Diff? Auto Invalid Interpretation Code [facility] Comment on above: Performed By: #### 7 958391, [id number], [id number] ####[facility] (DEFAULT)[address] [place] [address] 12495 MCH (RBC) [Entitic mass] 32 pg Normal 24-34 [facility] Comment on above: Performed By: #### 7 280209, [id number], [id number] ####[facility] (DEFAULT)[address] [place] [address] 42550 MCHC (RBC) [Mass/Vol] 33 g/dL Normal 26-37 [facility] Comment on above: Performed By: #### 7 550611, [id number], [id number] ####[facility] (DEFAULT)[address] [place] [address] 13451 MCV (RBC) [Entitic vol] 97 fL Normal 81-100 [facility] Comment on above: Performed By: #### 7 386277, [id number], [id number] ####[facility] (DEFAULT)[address] [place] [address] 81120 Platelet 336 x10 Normal 138-427 [facility] Comment on above: Performed By: #### 7 044080, 60049098, [id number] ####[facility] (DEFAULT)[address] [place] [address] 44569 Platelet mean volume (Bld) [Entitic vol] 7.2 fL Normal 6.3-10.2 [facility] Comment on above: Performed By: #### 7 457178, [id number], [id number] ####[facility] (DEFAULT)[address] [place] [address] RBC 3.77 x10 Normal 3.70-5.30 [facility] Comment on above: Performed By: #### 7 972851, [id number], [id number] ####[facility] (DEFAULT)[address] [place] [address] WBC 6.7 x10 Normal 3.5-10.5 [facility] Comment on above: Performed By: #### 7 437280, [id number], [id number] ####[facility] (DEFAULT)[address] [place] [address] UA w Culture if Ind Standard on 06-29-2022 Breakpoint UA [facility] Comment on above: Performed By: #### 1 [id number] #### [facility] (DEFAULT) [address] [place] [address] Color (U) Yellow [facility] Comment on above: Performed By: #### 1 [id number] #### [facility] (DEFAULT) [address] [place] [address] Culture? Not Indicated Invalid Interpretation Code [facility] Comment on above: Result Comment: Resu lt created by rule GL_MAGR_ADD_UA_CULT1 Performed By: #### 1 [id number] #### [facility] (DEFAULT) [address] [place] [address] Glucose (U) [Mass/Vol] Negative [facility] Comment on above: Performed By: #### 1 [id number] #### [facility] (DEFAULT) [address] [place] [address] Ketones Ql (U) Negative [facility] Comment on above: Performed By: #### 1 [id number] #### [facility] (DEFAULT) [address] [place] [address] Micro? Not Indicated Invalid Interpretation Code [facility] Comment on above: Result Comment: Resu lt created by rule GL_MAGR_ADD_UA_MICRO Performed By: #### 1 [id number] #### [facility] (DEFAULT) [address] [place] [address] UA Bilirubin Negative Normal [facility] Comment on above: Performed By: #### 1 [id number] #### [facility] (DEFAULT) [address] [place] [address] 16067 UA Blood Negative Normal NEGATIVE [facility] Comment on above: Performed By: #### 1 [id number] #### [facility] (DEFAULT) [address] [place] [address] 92260 UA Clarity CLEAR Normal CLEAR [facility] Comment on above: Performed By: #### 1 [id number] #### [facility] (DEFAULT) [address] [place] [address] UA Leuk Est Negative Normal NEGATIVE [facility] Comment on above: Performed By: #### 1 [id number] #### [facility] (DEFAULT) [address] [place] [address] UA Nitrite Negative Normal NEGATIVE [facility] Comment on above: Performed By: #### 1 [id number] #### [facility] (DEFAULT) [address] [place] [address] 47941 UA pH 6.5 Normal 5-8 [facility] Comment on above: Performed By: #### 1 [id number] #### [facility] (DEFAULT) [address] [place] [address] 62686 UA Protein Negative Normal NEGATIVE [facility] Comment on above: Performed By: #### 1 [id number] #### [facility] (DEFAULT) [address] [place] [address] 85777 UA Spec Grav 1.010 Normal 1.001-1.[address] [place] [address] Comment on above: Performed By: #### 1 [id number] #### [facility] (DEFAULT) [address] [place] [address] 85162 UA Urobilinogen 0.2 mg/dL Normal 0.2-1.0 [facility] Comment on above: Performed By: #### 1 [id number] #### [facility] (DEFAULT) [address] [place] [address] Urine Source Clean Catch Normal [facility] Comment on above: Performed By: #### 1 [id number] #### [facility] (DEFAULT) [address] [place] [address] 92178 MRI Shoulder w/o Lefton 04-15 MRI Shoulder [...] by Adarsh Adams on 05/11/2022 1041 Normal [facility] SCREENING MAMMOGRAM W/ARABELLA, BILATERAL*on 11-20-2021 [...] VERY IMPORTANT TO YOUR HEALTH. THE CURRENT [employer] GUIDELINES RECOMMENDS ANNUAL MAMMOGRAPHY BEGINNING AT AGE 39 THIS FACILITY USES A REMINDER SYSTEM TO ENSURE ALL PATIENTS RECEIVE REMINDER NOTIFICATIONS AT THE APPROPRIATE TIME BASED ON THE RECOMMENDATIONS OF THIS EXAM. Report reported and signed by Alejandro Forte on 11/20/2021 0949 Normal [facility] Comprehensive Metabolic Pane george 06-10-2021 Albumin [Mass/Vol] 4.2 g/dL Normal 3.6-5.1 Madyson goldman [place] [employer] Comment on above: Performed By: #### C JEWELS LIPD #### [facility] [address] [facility] [id number] Albumin/Globulin [Mass ratio] 1.7 {ratio} Normal 1.0-2.5 [facility] Comment on above: Performed By: #### C JEWELS LIPD #### [facility] [address] [facility] [id number] ALP [Catalytic activity/Vol] 82 U/L Normal 35-119 [facility] Comment on above: Performed By: #### C JEWELS LIPTeresa #### [facility] [address] [facility] [id number] ALT [Catalytic activity/Vol] 15 U/L Normal 6-33 [facility] Comment on above: Result Comment: 02/11 Female reference range changed. Performed By: #### C JEWELS LIPD #### [facility] [address] [facility] [id number] Anion gap [Moles/Vol] 15 mmol/L Normal 12-20 [facility] [employer] Comment on above: Result Comment: Effe ctive 03/19/2019 reference range changed. Performed By: #### C JEWELS LIPD #### [facility] [address] [facility] [id number] AST [Catalytic activity/Vol] 21 U/L Normal 9-34 [facility] [employer] Comment on above: Performed By: #### C JEWELS LIPD #### [facility] [address] [facility] [id number] BUN/CREA 28 Ratio High 6-22 [facility] [employer] Comment on above: Performed By: #### C JEWELS LIPD #### [facility] [address] [facility] [id number] Calcium [Mass/Vol] 9.3 mg/dL Normal 8.6-10.2 Madyson rn [place] [employer] Comment on above: Performed By: #### C JEWELS LIPD #### [facility] [address] [place], [place] [id number] Chloride [Moles/Vol] 106 mmol/L Normal 98-107 [facility] Comment on above: Performed By: #### JARVIS Anaya MP #### [facility] [address] [place], [place] [id number] CO2 [Moles/Vol] 24 mmol/L Normal 20-31 [facility] Comment on above: Performed By: #### C JARVIS DONIS #### [facility] [address] [place], [place] [id number] Creatinine [Mass/Vol] 1.1 mg/dL Normal 0.6-1.4 [facility] Comment on above: Performed By: #### JARVIS Anaya MP #### [facility] [address] [place], [place] [id number] eGFRAA 58 mL/min/1.73m2 Low >60 [facility] Comment on above: Performed By: #### JARVIS Anaya MP #### [facility] [address] [place], [place] [id number] eGFRNAA 48 mL/min/1.73m2 Low >60 [facility] Comment on above: Performed By: #### JARVIS Anaya MP #### [facility] [address] [place], [place] [id number] Globulin (S) [Mass/Vol] 2.5 g/dL Normal 1.9-3.7 [facility] Comment on above: Performed By: #### JARVIS Anaya MP #### [facility] [address] [place], [place] [id number] Glucose [Mass/Vol] 94 mg/dL Normal 65-99 [facility] Comment on above: Result Comment: For FASTING Glucose --- ADA reference ranges: Normal 65-99 mg/dl Prediabetes 100-125 Diabetes >/= 126 Performed By: #### JARVIS Anaya MP #### [facility] [address] [place], [place] [id number] Potassium [Moles/Vol] 4.4 mmol/L Normal 3.5-5.5 [facility] Comment on above: Performed By: #### JARVIS Anaya MP #### [facility] [address] [place], [place] [id number] Protein [Mass/Vol] 6.7 g/dL Normal 6.1-8.1 [facility] Comment on above: Performed By: #### C MP, LIPD #### [facility] [address] [place], [place] [id number] Sodium [Moles/Vol] 141 mmol/L Normal 135-146 [facility] Comment on above: Performed By: #### C MP, LIPD #### [facility] [address] [place], [place] [id number] TBIL <0.3 Normal [facility] Comment on above: Performed By: #### C MP, LIPD #### [facility] [address] [place], [place] [id number] Urea nitrogen [Mass/Vol] 32 mg/dL High 7-25 [facility] Comment on above: Performed By: #### C MP, LIPD #### [facility] [address] [place], [place] [id number] Lipid Panelon 06-10-2021 Cholesterol [Mass/Vol] 237 mg/dL High 125-200 [facility] Comment on above: Result Comment: Low risk < 200mg/dL Borderline risk 201-239 mg/dl High risk > or equal to 240 Performed By: #### C MP, LIPD #### [facility] [address] [place], [place] [id number] Cholesterol in HDL [Mass/Vol] 100 mg/dL Normal >40 [facility] Comment on above: Result Comment: High Cardiovascular Risk HDL <40 mg/dL Low Cardiovascular Risk HDL > or equal to 60 mg/dl Performed By: #### C MP, LIPD #### [facility] [address] [place], [place] [id number] Cholesterol in LDL [Mass/Vol] 124 mg/dL Normal [facility] Comment on above: Result Comment: LDL ATP III CLASSIFICATION LDL less than 100 mg/dl Optimal LDL 100-129 mg/dl Near or above optimal LDL 130-159 Borderline high LDL 160-189 High LDL greater than 189 mg/dl Very High Performed By: #### C MP, LIPD #### [facility] [address] [place], [place] [id number] Cholesterol in VLDL [Mass/Vol] 13 mg/dL Normal [facility] Comment on above: Performed By: #### C JEWELS, LIPD #### [facility] [address] [place], [place] [id number] Cholesterol.total/Ch olesterol in HDL [Mass ratio] 2 {ratio} Normal [facility] Comment on above: Performed By: #### C MP, LIPD #### [facility] [address] [place], [place] [id number] Triglyceride [Mass/Vol] 67 mg/dL Normal 30-150 [facility] Comment on above: Result Comment: TRIG ATPIII CLASSIFICATIONS TRIG less than 150 mg/dl Normal TRIG 150-199 mg/dl Borderline High TRIG 200-500 mg/dl High TRIG greather than 500 mg/dl Very High Performed By: #### C JEWELS, LIPD #### [facility] [address] [place], [place] [id number] ECHOCARDIO M/2D COMPLETEon 0 10-24-2020 ECHOCARDIO M/2D COMPLETE Patient: TRACI BARRAZA Exam Date: 10/24/2020 : 1945 Gender:F Ordering : DR SHARI MCKEON M.D. Admission #: [id number] Family : Order #: [id number] CLICK HERE TO VIEW EXAM ECHOCARDIOGRAM REPORT [...] Area(A4C): 13.90 cm2 Left Atrium Systolic Volume(A2C): 29840 mm3 Left Atrium Systolic Volume(A4C): 52106 mm3 Mitral Valve MV E to A Ratio: 1.10 Mitral Valve A-Wave Peak Velocity: 68.60 cm/s Mitral Valve E-Wave Peak Velocity: 74.50 cm/s Deceleration Time: 259 ms Right Ventricle Aorta AO Root Diam: 2.60 cm Aortic Valve Peak Velocity (Antegrade Flow): 161.00 cm/s, 230.00 cm/s AoV Area (Peak Daniel): 1.93 cm2 AoV Area (VTI): 1.90 cm2 Deceleration Hoke: 1880 mm/s2 Pressure Half-Time: 528 ms Peak [...] M.D. on 10/24/2020 at 19:17 Normal [facility] HEMOGLOBINon 09-30-2020 Hemoglobin (Bld) [Mass/Vol] 12.3 g/dL Normal 12.0-16.0 [facility] Comment on above: Performed By: #### H GB #### [facility] [address] [place], [place] [address] Geraldo Gaitan H PYLORI TISSUEon 02-01-2020 H PYL TISSUE, UREASE Negative Normal NEGATIVE [facility] Comment on above: Performed By: #### H GB #### [facility] [address] [place], [place] [address] Geraldo Gaitan COVID-19 PCRon 01-27-2020 SARS-CoV-2 (COVID-19) RNA VIVIENNE+probe Ql (Unsp spec) Not detected Normal Not Detected [facility] Comment on above: Result Comment: This nucleic acid amplification test was developed and its performance characteristics determined by [employer] Nucleic acid amplification tests include PCR and [...] Performed By: #### C VDSTAT, CVDPCR #### [facility] [address] [place] [address] Geraldo Gaitan PRIORITY COVID PROCESSINGon 01-27-2020 Comment Comment Normal [facility] Comment on above: Result Comment: Rece ived Performed By: #### C VDSTAT, CVDPCR #### [facility] [address] [place] [address] Geraldo Gaitan CULTURE BLOODon 01-08-2020 Microscopic examination [...] F Trimethoprim/Sulfamethoxazol e <=20 S F Normal [facility] Comment on above: Performed By: #### H GB #### [facility] [address] [place] [address] Geraldo Gaitan BLOOD CULTURE ID PANELon A. baumannii Not detected Normal [facility] Comment on above: Performed By: #### B MIRYAM #### [facility] [address] [place] [address] Geraldo Gaitan BCID CONTROLS PASSED Normal [facility] Comment on above: Performed By: #### B MIRYAM #### [facility] [address] [place] [address] Geraldo Gaitan BCIDBTHD BLOOD CULTURE BOTTLE INFORMATION Normal [facility] Comment on above: Performed By: #### B MIRYAM #### [facility] [address] [place] [address] Geraldo Gaitan BCIDHD1 ANTIMICROBIAL RESIST ANCE GENES Normal [facility] Comment on above: Performed By: #### B MIRYAM #### [facility] [address] [place] [address] Geraldo Kandy BCIDHD2 SEE BELOW Normal [facility] Comment on above: Result Comment: KPC- carbapenem resistance gene, mecA- methecillin resistance gene, van A/B- vancomycin resistance gene Note: Antimicrobial resitance can occur via multiple mechanisms. A Not Detected result for the [employer] antomicrobial resistance gene assays does not indicate antimicrobial susceptibility. Subculturing is required for specis identificationand susceptibility testing of isolates. Performed By: #### B MIRYAM #### [facility] [address] [place] [address] Geraldo Kandy BCIDHD3 Positive Normal [facility] Comment on above: Performed By: #### B MIRYAM #### [facility] [address] [place] [address] Geraldo Kandy BCIDHD3 Negative [facility] Comment on above: Performed By: #### B MIRYAM #### [facility] [address] [place] [address] Geraldo Kandy BCIDHD5 YEAST Normal [facility] Comment on above: Performed By: #### B MIRYAM #### [facility] [address] [place] [address] Geraldo Kandy BCIDHD6 SEE BELOW [facility] Comment on above: Result Comment: Note : All genus and species BCID [employer] results will be verified post subculturing via Maldi-Tof MS testing methodology. Performed By: #### B MIRYAM #### [facility] [address] [place] [address] Geraldo Kandy Bottle Set: Set 2 [facility] Comment on above: Performed By: #### B MIRYAM #### [facility] [address] [place] [address] Geraldo Kandy Bottle: Aerobic Normal [facility] Comment on above: Performed By: #### B MIRYAM #### [facility] [address] [place] [address] Geraldo Kandy Naomi albicans Not detected Normal [facility] Comment on above: Performed By: #### B MIRYAM #### [facility] [address] [place] [address] Geraldo Kandy Naomi glabrata Not detected Normal [facility] Comment on above: Performed By: #### B MIRYAM #### [facility] [address] [place] [address] Geraldo Kandy Naomi Krusei Not detected Normal [facility] Comment on above: Performed By: #### B MIRYAM #### [facility] [address] [place] [address] Geraldo Kandy Naomi Parapsilosis Not detected Normal [facility] Comment on above: Performed By: #### B MIRYAM #### [facility] [address] [place] [address] Geraldo Kandy Naomi Tropicalis Not detected Normal [facility] Comment on above: Performed By: #### B MIRYAM #### [facility] [address] [place] [address] Geraldo Kandy E. Cloacae complex Not detected Normal [facility] Comment on above: Performed By: #### B MIRYAM #### [facility] [address] [place] [address] Geraldo Kandy Enterobacteriaceae Detected Invalid Interpretation Code [facility] Comment on above: Performed By: #### B MIRYAM #### [facility] [address] [place] [address] Geraldo Kandy Enterococcus Not detected Normal [facility] Comment on above: Performed By: #### B MIRYAM #### [facility] [address] [place] [address] Geraldo Kandy Escheria coli Detected Normal [facility] Comment on above: Performed By: #### B MIRYAM #### [facility] [address] [place] [address] Geraldo Kandy K. oxytoca Not detected Normal [facility] Comment on above: Performed By: #### B MIRYAM #### [facility] [address] [place] [address] Geraldo Kandy K. pneumoniae Not detected Normal [facility] Comment on above: Performed By: #### B MIRYAM #### [facility] [address] [place] [address] Geraldo Kandy KPC Resistant Gene Not detected Normal [facility] Comment on above: Performed By: #### B MIRYAM #### [facility] [address] [place] [address] Geraldobhumi Charlesen List. monocytogenes Not detected Normal [facility] Comment on above: Performed By: #### B MIRYAM #### [facility] [address] [place] [address] Geraldo Kandy mecA Resistant Gene Not detected Normal [facility] Comment on above: Performed By: #### B MIRYAM #### [facility] [address] Kandy Proteus Not detected Normal [facility] Comment on above: Performed By: #### B MIRYAM #### [facility] [address] [place] [address] Kandy Pseud. aeruginosa Not detected Normal [facility] Comment on above: Performed By: #### B MIRYAM #### [facility] [address] [place] [address] Geraldo Kandy Seratia marcescens Not detected Normal [facility] Comment on above: Performed By: #### B MIRYAM #### [facility] [address] [place] [address] Geraldo Gaitan Site: R AC Normal [facility] Comment on above: Performed By: #### B MIRYAM #### [facility] [address] [place] [address] Geraldo Gaitan Staph. aureus Not detected Normal [facility] Comment on above: Performed By: #### B MIRYAM #### [facility] [address] [address] Geraldo Kandy Staphylococcus Not detected Normal [facility] Comment on above: Performed By: #### B MIRYAM #### [facility] [address] [place] [address] Geraldo Kandy Strep. agalactiae Not detected Normal [facility] Comment on above: Performed By: #### B MIRYAM #### [facility] [address] [address] Geraldo Kandy Strep. pneumoniae Not detected Normal [facility] Comment on above: Performed By: #### B MIRYAM #### [facility] [address] [place] [address] Geraldo Gaitan Strep. pyogenes Not detected Normal [facility] Comment on above: Performed By: #### B MIRYAM #### [facility] [address] [place] [address] Geraldo Gaitan Streptococcus Not detected Normal [facility] Comment on above: Performed By: #### B MIRYAM #### [facility] [address] [place] [address] Geraldo Gaitan Aicha/B Resist. Gene Not detected Normal [facility] Comment on above: Performed By: #### B MIRYAM #### [facility] [address] [place] [address] Geraldo Gaitan CBC AUTO DIFFon 01-02-2020 BASO # 0.0 103/ul Normal 0.0-0.1 [facility] Comment on above: Performed By: #### C BC #### [facility] [address] [place] [address] Geraldo Gaitan Basophils/100 WBC (Bld) 0.3 % Normal 0.2-2.0 [facility] Comment on above: Performed By: #### C BC #### [facility] [address] [place] [address] Geraldo Gaitan EO # 0.0 103/ul Normal 0.0-0.7 [facility] Comment on above: Performed By: #### C BC #### [facility] [address] [place] [address] Geraldo Gaitan Eosinophils/100 WBC (Bld) 0.3 % Critically low 0.9-7.0 [facility] Comment on above: Performed By: #### C BC #### [facility] [address] [place] [address] Geraldo Gaitan Erythrocyte distribution width (RBC) [Ratio] 12.6 % Normal 11.0-15.0 [facility] Comment on above: Performed By: #### C BC #### [facility] [address] [place] [address] Geraldobhumi Gaitan Hematocrit (Bld) [Volume fraction] 42.7 % Normal 36.0-48.0 [facility] Comment on above: Performed By: #### C BC #### [facility] [address] [place], [place] [id number] Geraldo Kandy Hemoglobin (Bld) [Mass/Vol] 13.6 g/dL Normal 12.0-16.0 [facility] Comment on above: Performed By: #### C BC #### [facility] [address] [place], [place] [address] Geraldo Kandy IG # 0.04 10e3/ul Critically high 0.00-0.03 [facility] Comment on above: Performed By: #### C BC #### [facility] [address] [place] [address] Geraldo Kandy IG % 0.3 % Normal 0.0-0.5 [facility] Comment on above: Performed By: #### C BC #### [facility] [address] [place] [address] Geraldo Kandy LYMPH # 0.5 103/ul Critically low 1.2-3.8 [facility] Comment on above: Performed By: #### C BC #### [facility] [address] [place] [address] Geraldo Gaitan Lymphocytes/100 WBC (Bld) 4.4 % Critically low 20.5-60.0 [facility] Comment on above: Performed By: #### C BC #### [facility] [address] [place] [address] Geraldo Gaitan MANUAL DIFF REQ NO Normal [facility] Comment on above: Performed By: #### C BC #### [facility] [address] [place], [place] [id number] Geraldo Gaitan MCH (RBC) [Entitic mass] 30.6 pg Normal 26.7-34.0 [facility] Comment on above: Performed By: #### C BC #### [facility] [address] [place] [address] Geraldo Gaitan MCHC (RBC) [Mass/Vol] 31.9 g/dL Normal 29.9-35.2 [facility] Comment on above: Performed By: #### C BC #### [facility] [address] [place], [place] [address] Geraldobhumi Gaitan MCV (RBC) [Entitic vol] 96.0 fL Normal 81.0-99.0 [facility] Comment on above: Performed By: #### C BC #### [facility] [address] [place], [place] [address] Geraldobhumi Gaitan MONO # 0.8 103/ul Normal 0.3-0.8 [facility] Comment on above: Performed By: #### C BC #### [facility] [address] [place], [place] [address] Geraldobhumi Gaitan Monocytes/100 WBC (Bld) 6.5 % Normal 1.7-12.0 [facility] Comment on above: Performed By: #### C BC #### [facility] [address] [place] [address] Geraldobhumi Charlesen NEUT # 10.1 103/ul Critically high 1.4-6.5 [facility] Comment on above: Performed By: #### C BC #### [facility] [address] [place], [place] [address] Geraldobhumi Gaitan Neutrophils/100 WBC (Bld) 88.2 % Critically high 43.0-75.0 [facility] Comment on above: Performed By: #### C BC #### [facility] [address] [place], [place] [address] Geraldobhumi Gaitan Platelet mean volume (Bld) [Entitic vol] 9.8 fL Normal 9.5-13.5 [facility] Comment on above: Performed By: #### C BC #### [facility] [address] [place], [place] [address] Geraldo Kandy PLT 254 103/ul Normal 150-450 [facility] Comment on above: Performed By: #### C BC #### [facility] [address] [place], [place] [address] Geraldo Kandy RBC 4.45 106/ul Normal 4.20-5.40 [facility] Comment on above: Performed By: #### C BC #### [facility] [address] [place], [place] [address] Geraldo Kandy CT HEAD WO CONon 01-02-2020 CT HEAD [...] REMY NESS Date: 2020-01-02 19:00 Normal [facility] CULTURE BLOODon 01-02-2020 Microscopic examination of blood, culture Culture Observations: No growth at 5 days Normal [facility] Comment on above: Performed By: #### H GB #### [facility] [address] [id number] Geraldo Gaitan CULTURE URINEon 01-02-2020 CULTURE URINE Culture Observations : Light growth of mixed genital eliezer.No potential pathogens seen. Normal [facility] Comment on above: Performed By: #### H GB #### [facility] [address] [id number] Geraldo Kandy ER URINE PROFILEon 0 Bilirubin Ql (U) Negative Normal NEGATIVE [facility] Comment on above: Performed By: #### E MELODY SHAH #### [facility] [address] [id number] Geraldo Kandy Clarity (U) SL CLOUDY Normal [facility] Comment on above: Performed By: #### E MELODY SHAH #### [facility] [address] [id number] Geraldo Kandy Color (U) LT. YELLOW Normal YELLOW [facility] Comment on above: Performed By: #### E KANDICE SHAHRO #### [facility] [address] [place] [address] Geraldo Kandy ERUAHD A micrscopic examina tion will be performed if indicated. Normal [facility] Comment on above: Performed By: #### MELODY CORDOVA #### [facility] [address] [place] [address] Geraldo Kandy Glucose Ql (U) Negative Normal NEGATIVE [facility] Comment on above: Performed By: #### MELODY CORDOVA #### [facility] [address] [place] [address] Geraldo Kandy Hemoglobin Ql (U) SMALL Normal NEGATIVE [facility] Comment on above: Performed By: #### MELODY CORDOVA #### [facility] [address] [place] [address] Geraldo Kandy Ketones Ql (U) Negative Normal NEGATIVE [facility] Comment on above: Performed By: #### MELODY CORDOVA #### [facility] [address] [place] [address] Geraldo Kandy LEUKOCYTES TRACE Normal NEGATIVE [facility] Comment on above: Performed By: #### MELODY CORDOVA #### [facility] [address] [place] [address] Geraldo Kandy Nitrite Ql (U) Negative Normal NEGATIVE [facility] Comment on above: Performed By: #### MELODY CORDOVA #### [facility] [address] [place] [address] Geraldo Kandy pH (U) 7.0 [pH] Normal 5-9 [facility] Comment on above: Performed By: #### MELODY CORDOVA #### [facility] [address] [place] [address] Geraldo Kandy Protein Ql (U) 30 mg/dl Normal [facility] Comment on above: Performed By: #### MELODY CORDOVA #### [facility] [address] [place] [address] Geraldo Kandy SPEC GRAVITY 1.015 Normal 1.005-<=1. 025 [facility] Comment on above: Performed By: #### E MELODY SHAH #### [facility] [address] [place] [address] Geraldobhumi Gaitan UR MICRO IND INDICATED Normal [facility] Comment on above: Performed By: #### E MELODY SHAH #### [facility] [address] [place] [address] Geraldobhumi Gaitan Urobilinogen Qn (U) 0.2 {Eileen'U}/dL Normal [facility] Comment on above: Performed By: #### E MELODY SHAH #### [facility] [address] [place] [address] Geraldo Kandy LACTATE/LACTIC ACIDon 2019 Lactate [Moles/Vol] 1.1 mmol/L Normal 0.7-2.0 [facility] Comment on above: Performed By: #### H GB #### [facility] [address] [place] [address] Geraldo Kandy PROCALCITONINon 01-02-2020 PCT header 1 SEE BELOW Normal [facility] Comment on above: Result Comment: PCT <0.5ng/mL: Systemic infection (sepsis) is not likely, local bacterial infection possible, low risk for progression to severe systemic infection (severe sepsis) Performed By: #### P RL #### [facility] [address] [place] [address] Geraldo Kandy PCT header 2 SEE BELOW Normal [facility] Comment on above: Result Comment: PCT >/=0.5 and <2 ng/mL: Systemic infection (sepsis) is possible, moderate risk for progression to severe systemic infection (severe sepsis) Performed By: #### P RL #### [facility] [address] [place] [address] Geraldo Kandy PCT header 3 SEE BELOW Normal [facility] Comment on above: Result Comment: PCT >/=2.0 and <10 ng/mL: Systemic infection (sepsis) is likely, unless other causes are known, high risk for progession to severe systemic infection(severe sepsis) Performed By: #### P RL #### [facility] [address] [place], [place] [address] Geraldobhumi Gaitan PCT header 4 SEE BELOW Normal [facility] Comment on above: Result Comment: PCT >/= 10 ng/mL: Important systemic inflammatory response almost exclusively due to severe bacterial sepsis or septic shock, high likelihood of severe sepsis or septic shock Performed By: #### P RL #### [facility] [address] [place] [address] Geraldo Gaitan PROCALCITONIN 0.62 ng/mL Critically high 0.00-0.50 [facility] Comment on above: Performed By: #### P RL #### [facility] [address] [place], [place] [address] Geraldo Gaitan PROF 14(COMP METB)on 01-01- 020 Albumin [Mass/Vol] 3.6 g/dL Normal 3.5-5.0 [facility] Comment on above: Performed By: #### C MP #### [facility] [address] [place], [place] [address] Geraldo Gaitan Albumin/Globulin [Mass ratio] 0.8 {ratio} Normal [facility] Comment on above: Performed By: #### C MP #### [facility] [address] [place], [place] [address] Geraldo Kandy ALP [Catalytic activity/Vol] 95 U/L Normal 38-126 [facility] Comment on above: Performed By: #### C MP #### [facility] [address] [place], [place] [address] Geraldo Gaitan ALT [Catalytic activity/Vol] 32 U/L Normal 9-52 [facility] Comment on above: Performed By: #### C MP #### [facility] [address] [place], [place] [address] Geraldo Kandy Anion gap [Moles/Vol] 13.8 mmol/L Normal [facility] Comment on above: Performed By: #### C MP #### [facility] [address] [place], [place] [address] Geraldobhumi Gaitan AST [Catalytic activity/Vol] 42 U/L Critically high 14-36 [facility] Comment on above: Performed By: #### C MP #### [facility] [address] [id number] Geraldo Kandy Bilirubin [Mass/Vol] 0.5 mg/dL Normal 0.2-1.3 [facility] Comment on above: Performed By: #### C MP #### [facility] [address] [id number] Geraldo Kandy Calcium [Mass/Vol] 9.4 mg/dL Normal 8.4-10.2 [facility] Comment on above: Performed By: #### C MP #### [facility] [address] [id number] Geraldo Kandy Chloride [Moles/Vol] 100 mmol/L Normal 98-107 [facility] Comment on above: Performed By: #### C MP #### [facility] [address] [address] Geraldo Kandy CO2 [Moles/Vol] 24.6 mmol/L Normal 22.0-30.0 [facility] Comment on above: Performed By: #### C MP #### [facility] [address] [id number] Geraldo Kandy Creatinine [Mass/Vol] 1.36 mg/dL Critically high 0.52-1.04 [facility] Comment on above: Performed By: #### C MP #### [facility] [address] [address] Geraldo Kandy EGFR-AF FRENCH 46 mL/min/1.73m2 Critically low >=60 [facility] Comment on above: Performed By: #### C MP #### [facility] [address] [address] Geraldo Kandy EGFR-NON AF FRENCH 38 mL/min/1.73m2 Critically low >=60 [facility] Comment on above: Performed By: #### C MP #### [facility] [address] [id number] Geraldo Kandy Globulin (S) [Mass/Vol] 4.5 g/dL Normal [facility] Comment on above: Performed By: #### C MP #### [facility] [address] [address] Geraldo Kandy Glucose [Mass/Vol] 120 mg/dL Critically high 74-106 [facility] Comment on above: Performed By: #### C MP #### [facility] [address] [address] Geraldo Kandy Potassium [Moles/Vol] 3.4 mmol/L Normal 3.4-5.0 [facility] Comment on above: Performed By: #### C MP #### [facility] [address] [place] [address] Geraldo Kandy Protein [Mass/Vol] 8.1 g/dL Normal 6.1-8.2 [facility] Comment on above: Performed By: #### C MP #### [facility] [address] [place] [address] Geraldo Kandy Sodium [Moles/Vol] 135 mmol/L Critically low 137-145 Th [facility] Comment on above: Performed By: #### C MP #### [facility] [address] [place] [address] Geraldo Kandy Urea nitrogen [Mass/Vol] 22.0 mg/dL Critically high 7.0-17.0 [facility] Comment on above: Performed By: #### C MP #### [facility] [address] [place] [address] Geraldo Kandy Urea nitrogen/Creatinine [Mass ratio] 16.2 mg/mg Normal [facility] Comment on above: Performed By: #### C MP #### [facility] [address] [place] [address] Geraldo Kandy RESPIRATORY PANEL PLUSon Adenovirus Not detected Normal NOT DETECTED [facility] Comment on above: Performed By: #### R SPLUS #### [facility] [address] [place] [address] Geraldo Kandy B. Parapertusis Not detected Normal NOT DETECTED [facility] Comment on above: Performed By: #### R SPLUS #### [facility] [address] [place] [address] Geraldo Kandy B. Pertussis Not detected Normal NOT DETECTED [facility] Comment on above: Performed By: #### R SPLUS #### [facility] [address] [place] [address] Geraldo Kandy Chlamydia Pneumoniae Not detected Normal NOT DETECTED [facility] Comment on above: Performed By: #### R SPLUS #### [facility] [address] [place] [address] Geraldo Kandy Coronavirus 229E Not detected Normal NOT DETECTED [facility] Comment on above: Performed By: #### R SPLUS #### [facility] [address] [place] [address] Geraldo Kandy Coronavirus HKU1 Not detected Normal NOT DETECTED [facility] Comment on above: Performed By: #### R SPLUS #### [facility] [address] [place] [address] Geraldo Kandy Coronavirus NL63 Not detected Normal NOT DETECTED [facility] Comment on above: Performed By: #### R SPLUS #### [facility] [address] [place] [address] Geraldo Kandy Coronavirus OC43 Not detected Normal NOT DETECTED [facility] Comment on above: Performed By: #### R SPLUS #### [facility] [address] [place] [address] Geraldo Kandy Influenza A H1 2009 Not detected Normal NOT DETECTED [facility] Comment on above: Performed By: #### R SPLUS #### [facility] [address] [place] [address] Geraldo Kandy Influenza B Not detected Normal NOT DETECTED [facility] Comment on above: Performed By: #### R SPLUS #### [facility] [address] [place] [address] Geraldo Kandy Metapneumovirus Not detected Normal NOT DETECTED [facility] Comment on above: Performed By: #### R SPLUS #### [facility] [address] [place] [address] Geraldo Kandy Mycoplas. Pneumoniae Not detected Normal NOT DETECTED [facility] Comment on above: Performed By: #### R SPLUS #### [facility] [address] [place], [place] [address] Geraldo Kandy Parainfluenza 1 Not detected Normal NOT DETECTED [facility] Comment on above: Performed By: #### R SPLUS #### [facility] [address] [place] [address] Geraldo Kandy Parainfluenza 2 Not detected Normal NOT DETECTED [facility] Comment on above: Performed By: #### R SPLUS #### [facility] [address] [place] [address] Geraldo Kandy Parainfluenza 3 Not detected Normal NOT DETECTED [facility] Comment on above: Performed By: #### R SPLUS #### [facility] [address] [place] [address] Geraldo Kandy Parainfluenza 4 Not detected Normal NOT DETECTED [facility] Comment on above: Performed By: #### R SPLUS #### [facility] [address] [place] [address] Geraldo Kandy Rhino/Enterovirus Not detected Normal NOT DETECTED [facility] Comment on above: Performed By: #### R SPLUS #### [facility] [address] [place] [address] Geraldo Kandy RP2 Header 1 RESPIRATORY PANEL: VIRUSES Normal [facility] Comment on above: Performed By: #### R SPLUS #### [facility] [address] [place] [address] Geraldo Kandy RP2 Header 2 RESPIRATORY PANEL: BACTERIA Normal [facility] Comment on above: Performed By: #### R SPLUS #### [facility] [address] [place] [address] Geraldo Kandy RP2 Header 4 EUA SEE BELOW Normal [facility] Comment on above: Result Comment: This test is not yet approved or cleared by the [place] FDA. When there are no FDA-approved or cleared tests available, and other criteria are met, FDA can make tests available under an emergency access mechanism called an Emergency Use Authorization (EUA). The EUA for this test is supported by the [place] of Health and Human Service?s (HHS?s) declaration [...] used). Performed By: #### R ELBERT #### [facility] [address] [place] [address] Geraldo Kandy RSV Not detected Normal NOT DETECTED [facility] Comment on above: Performed By: #### R SPLUS #### [facility] [address] [place] [address] Geraldobhumi Gaitan SARS-CoV-2 (COVID-19) RNA VIVIENNE+probe Ql (Unsp spec) Not detected Normal NOT DETECTED [facility] Comment on above: Performed By: #### R ELBERT #### [facility] [address] [place] [address] Geraldo Kandy URINE MICROSCOPIC ONLYon BACTERIA MODERATE Normal NONE SEEN [facility] Comment on above: Performed By: #### MELODY CORDOVA #### [facility] [address] [place] [address] Geraldo Kandy Bacteria identified Cx Nom (U) INDICATED Normal [facility] Comment on above: Performed By: #### MELODY CORDOVA #### [facility] [address] [place] [address] Geraldo Kandy CAST NONE SEEN Normal NONE SEEN [facility] Comment on above: Performed By: #### MELODY CORDOVA #### [facility] [address] [place] [address] Geraldo Kandy Crystals LM Nom (Urine sed) NONE SEEN Normal NONE SEEN [facility] Comment on above: Performed By: #### MELODY CORDOVA #### [facility] [address] [place] [address] Grealdo Kandy Epithelial cells LM Ql (Urine sed) RARE Normal [facility] Comment on above: Performed By: #### KANDICE CORDOVARO #### [facility] [address] [place] [address] Geraldo Kandy MUCOUS NONE SEEN Normal NONE SEEN [facility] Comment on above: Performed By: #### E MELODY SHAH #### [facility] [address] [place], [place] [address] Geraldo Kandy RBC 0-2 Normal 0-2 [facility] Comment on above: Performed By: #### E MELODY SHAH #### [facility] [address] [place], [place] [address] Geraldo Kandy WBC 5-10 Normal NONE SEEN [facility] Comment on above: Performed By: #### E KANDICE SHAHRO #### [facility] [address] [place], [place] [address] Geraldo Kandy XR CHEST 1 Von 01-02-2020 [...] REMY NESS Date: 2020-01-02 18:52 Normal [facility] Encounters Encounter Date Encounter Type Care Provider Facility Start: 12-28-2023 End: 12-28-2023 ambulatory SHARI MCKEON Not Available Start: 12-22-2023 End: 12-22-2023 Refill Shari Mckeon MD Work Phone: [facility] Comment on above: Primary insomnia Start: 12-13-2023 End: 12-13-2023 Telephone encounter Shari Mckeon MD Work Phone: [facility] Comment on above: Encounter for screen ing mammogram for malignant neoplasm of breast (Primary Dx) Start: 12-12-2023 End: 12-12-2023 ambulatory Kei Espana MD Facility:[facility] Start: 11-28-2023 End: 11-28-2023 ambulatory Kei Espana MD Facility:[facility] Start: 10-04-2023 End: 10-04-[address] [facility] Start: 09-19-2023 End: 09-19-2023 ambulatory ALEXANDER APARICIO Not Available Start: 09-19-2023 End: 09-19-2023 ambulatory ALEXANDER A ALBINA Not Available Start: 09-05-2023 End: 09-05-2023 ambulatory Andlindaus Tawnyaautanthony Quintanillaitis [facility] Start: 08-22-2023 End: 08-22-2023 ambulatory Andrius Vytautas Mirianeditis Facility:[facility] Start: 07-25-2023 End: 07-25-2023 ambulatory Andrius Emmaytautas Sherinraitis Facility:[facility] Start: 07-11-2023 End: 07-11-2023 ambulatory Andrius Emmaytautas Sherinraitis Facility:[facility] Start: 06-17-2023 End: 06-17-2023 ambulatory ALEXANDER APARICIO Not Available Start: 04-27-2023 Telephone encounter Marisa sierra DO Work Phone: [facility] 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 Start: 04-21-2023 Refill Alexander Deantej marcum [employer] Work Phone: [facility] Comment on above: Essential hypertensi on (CMS/HCC) Start: 04-18-2023 End: 04-18-2023 ambulatory ALEXANDER APARICIO Not Available Start: 03-08-2023 End: 03-08-2023 ambulatory MARISA Plascencia RICHARD Not Available Start: 03-01-2023 End: 03-01-2023 ambulatory MARISA RAMOS Not Available Start: 02-22-2023 End: 02-22-2023 ambulatory MARISA RAMOS Not Available Start: 02-08-2023 End: 02-08-2023 ambulatory MARISA Temo RICHARD Not Available Start: 02-01-2023 End: 02-01-2023 ambulatory MARISA RAMOS Not Available Start: 01-28-2023 End: 01-28-2023 ambulatory SHARI MCKEON Not Available Start: 07-26-2022 End: 07-26-2022 ambulatory SHARI MCKEON Facility:[facility] Start: 06-29-2022 End: 06-30-2022 ambulatory SHARI MCKEON Facility:[facility] Start: 10-24-2020 End: 10-25-[address] SHARI MCKEON Facility:[facility] Start: 09-30-2020 End: 10-01-[address] SHARI MCKEON Facility:[facility] Start: 02-01-2020 End: 02-01-[address] CARLOS EDUARDO MENENDEZ Facility:[facility] Start: 01-30-2020 Encounter for preprocedural laboratory examination DR CARLOS EDUARDO MENENDEZ [facility] Start: 01-26-2020 End: 01-27-[address] SHARI MCKEON Facility:[facility] Start: 01-26-2020 End: 01-27-2020 Encounter for preprocedural laboratory examination DR SHARI MCKEON Facility:[facility] Start: 01-02-2020 End: 01-02-[address] BÁRBARA BLUE Facility:[facility] Start: 05-25-2018 End: 05-26-2018 Patient encounter procedure DEFAULT PHYSICIAN Facility:[facility] Plan of Treatment Date Care Activity Detail Author Start: 06-16-2024 Medicare Annual Wellness (AWV) Medicare Annual Wellness (AWV) [facility] Start: 12-28-2023 End: 12-28-2023 Professional / ancillary services management 12/28/2023 9:00 AM EDT Ancillary Procedure [facility] [address] [facility] [address] [place] [address] [facility] IMAGING Start: 12-13-2023 End: 02-11-2025 MG Breast - bilateral Screening Bilateral screening mammogram Imaging Routine Encounter for screening mammogram for malignant neoplasm of breast Expected: 12/13/2023, Expires: 02/11/2025 [facility] Work Phone: Comment on above: Expected: 12/13/2023 , Expires: 02/11/2025 Start: 11-13-2023 Influenza vaccination Influenza Vacc ine (#1) [facility] Healthcare Start: 08-02-2023 End: 08-02-2023 Patient encounter procedure 08/02/2023 9:00 AM EDT Office Visit [facility] [address] [facility] [address] [place] [id number] Marisa Ramos DO [address] [facility] [address] [place] [address] [facility] Start: 05-06-2023 Medicare Annual Wellness (AWV) Medicare Annual Wellness (AWV) [facility] Healthcare Immunizations Immunization Date Immunization Notes Care Provider Fa cili 12-23-2022 Influenza, High-dose Seasonal, Quadrivalent, Preservative Free Alexander Hackenburg OUTSIDE EVENT SALES SPECIALIST Work Phone: [facility] 12-23-2022 SARS-COV-2 (COVID-19 ) vaccine, mRNA, spike protein, LNP, PF, 50 mcg/0.5 mL Alexander Hackenburg OUTSIDE EVENT SALES SPECIALIST Work Phone: [facility] 12-23-2022 influenza virus vaccine, unspecified formulation Shari Mckeon MD Work Phone: [facility] 12-01-2021 Influenza, Seasonal, Quadrivalent, Adjuvanted Alexander Hackenburg OUTSIDE EVENT SALES SPECIALIST Work Phone: [facility] 12-01-2021 Seasonal, trivalent, recombinant, injectable influenza vaccine, preservative free Alexander Hackenburg OUTSIDE EVENT SALES SPECIALIST Work Phone: [facility] 12-16-2020 Influenza, High-dose Seasonal, Quadrivalent, Preservative Free Alexander Hackenburg OUTSIDE EVENT SALES SPECIALIST Work Phone: [facility] 02-14-2020 zoster vaccine recombinant Alexander Hackenburg OUTSIDE EVENT SALES SPECIALIST Work Phone: [facility] 12-07-2019 influenza, seasonal, injectable Alexander Hackenburg OUTSIDE EVENT SALES SPECIALIST Work Phone: [facility] 11-13-2019 influenza, injectabl e, quadrivalent, preservative free Alexander Hackenburg OUTSIDE EVENT SALES SPECIALIST Work Phone: [facility] 11-13-2019 zoster vaccine recombinant Alexander Hackenburg OUTSIDE EVENT SALES SPECIALIST Work Phone: [facility] 11-12-2019 zoster vaccine recombinant Alexander Hasobiaenburg OUTSIDE EVENT SALES SPECIALIST Work Phone: [facility] 11-29-2018 Seasonal trivalent influenza vaccine, adjuvanted, preservative free Alexander Hasobiaenburg OUTSIDE EVENT SALES SPECIALIST Work Phone: [facility] 11-30-2017 influenza, high dose seasonal, preservative-free Alexander Hasobiaenburg OUTSIDE EVENT SALES SPECIALIST Work Phone: [facility] 11-24-2017 Seasonal trivalent influenza vaccine, adjuvanted, preservative free Alexander Hasobiaenburg OUTSIDE EVENT SALES SPECIALIST Work Phone: [facility] 11-18-2016 influenza, high dose seasonal, preservative-free Alexander Hasobiaenburg OUTSIDE EVENT SALES SPECIALIST Work Phone: [facility] Work Phone: 11-18-2016 pneumococcal conjuga te vaccine, 13 valent Alexander Magyburg OUTSIDE EVENT SALES SPECIALIST Work Phone: [facility] 11-18-2016 Seasonal trivalent influenza vaccine, adjuvanted, preservative free Alexander Hasobiaenburg OUTSIDE EVENT SALES SPECIALIST Work Phone: [facility] 11-18-2016 tetanus toxoid, redu greg diphtheria toxoid, and acellular pertussis vaccine, adsorbed Alexander Patrickenburg OUTSIDE EVENT SALES SPECIALIST Work Phone: [facility] 11-12-2016 pneumococcal polysaccharide vaccine, 23 valent Alexander Haosbiaenburg OUTSIDE EVENT SALES SPECIALIST Work Phone: [facility] 12-11-2015 influenza, high dose seasonal, preservative-free Alexander Hackenburg OUTSIDE EVENT SALES SPECIALIST Work Phone: [facility] 12-30-2014 influenza virus vaccine, whole virus Alexander Hackenburg OUTSIDE EVENT SALES SPECIALIST Work Phone: [facility] 12-30-2014 influenza, injectabl e, quadrivalent, preservative free Alexander Hackenburg OUTSIDE EVENT SALES SPECIALIST Work Phone: [facility] 05-10-2014 pneumococcal conjuga te vaccine, 13 valent Alexander Hackenburg OUTSIDE EVENT SALES SPECIALIST Work Phone: [facility] 12-13-2013 influenza virus vaccine, whole virus Alexander Aparicio OUTSIDE EVENT SALES SPECIALIST Work Phone: [facility] 01-12-2013 pneumococcal Conjuga te, unspecified formulation Alexander Aparicio OUTSIDE EVENT SALES SPECIALIST Work Phone: [facility] 01-12-2013 seasonal influenza, intradermal, preservative free Alexander Aparicio OUTSIDE EVENT SALES SPECIALIST Work Phone: [facility] 12-27-2012 pneumococcal polysaccharide vaccine, 23 valent Alexander Aparicio OUTSIDE EVENT SALES SPECIALIST Work Phone: [facility] Payers Date Payer Category Payer Unknown 2017 Medicare [employer] MEDICARE ADVANTAGE [facility] MEDICARE ADVANTAGE [id number] 2017-Present [address] [place] [address] [id number] 1959 Unknown [id number] 1945 Unknown [id number] 2..840.1.570958.3.579.2.647 1944 Unknown [id number] 2..840.1.086721.3.579.2.593 1944 Unknown [id number] 2.840.1.052080.3.579.2.593 1944 Unknown [id number] 2.16.840.1.332552.3.579.2.593 1944 Unknown [id number] 2.16.840.1.539159.3.579.2.593 1944 Unknown [id number] 2.16.840.1.688290.3.579.2.593 1944 Unknown [id number] 2.16.840.1.022920.3.579.2.718 1944 Unknown [id number] 2.16.840.1.138577.3.579.2.718 1944 Unknown [id number] 2.16.840.1.448870.3.579.2.128 6 1944 Unknown [id number] 2.16.840.1.798448.3.579.2.196 1944 Unknown [id number] 2.16.840.1.676849.3.579.2.196 1944 Unknown [id number] 2.16.840.1.190572.3.579.2.196 1944 Unknown [id number] 2.16.840.1.478861.3.579.2.196 1944 Unknown [id number] 2.16.840.1.539666.3.579.2.196 1944 Unknown [id number] 2.16840.1.258049.3.579.2.196 1944 Unknown [id number] 2.16.840.1.294153.3.579.2.125 9 1944 Unknown [id number] 2.16.840.1.007556.3.579.2.125 9 1944 Unknown [id number] 2.16.840.1.762937.3.579.2.125 9 1944 Unknown [id number] 2.16840.1.171073.3.579.2.125 9 1944 Unknown [id number] 2.16.840.1.527969.3.579.2.125 9 1944 Unknown [id number] 2.16.840.1.141798.3.579.2.125 9 1944 Unknown [id number] 2.16.840.1.535012.3.579.2.125 9 1944 Unknown [id number] 2.16.840.1.894389.3.579.2.125 9 1944 Unknown [id number] 2.16.840.1.660501.3.579.2.125 9 1944 Unknown [id number] 2.16.840.1.327905.3.579.2.125 9 1944 Unknown [id number] 2.16.840.1.599037.3.579.2.125 9 1944 Unknown [id number] 2.16.840.1.213371.3.579.2.125 9 1944 Unknown [id number] 2.16.840.1.091174.3.579.2.125 9 1945 Unknown [id number] 2.16.840.1.862272.3.579.2.125 9 Social History Date Type Detail Facility Start: 09-17-2022 Tobacco smoking stat [facility] Never smoked tobacco [facility] Start: 09-17-2022 Tobacco use and exposure Smoke less tobacco non-user [facility] Start: 04-18-2023 End: 09-19-2023 Alcohol intake Current drinker of alcohol (finding) [facility] Start: 04-18-2023 End: 06-17-2023 Alcohol intake [facility] Start: 04-18-2023 End: 06-17-2023 Tobacco use panel [facility] Start: 01-06-2023 Alcohol Comment Caffeine intak e: 1-2 cups per day [facility] Start: 1945 Sex Assigned At Not on file [facility] How often to you hav e a drink containing alcohol? 4 or more times a week [facility] How many standard dr inks containing alcohol do you have on a typical day? 1 or 2 [facility] How often do you hav e 6 or more drinks on 1 occasion? Never [facility] Clinical Notes 02-01-2020 to 12-22-2023 Telephone Encounter - Naila Orellana MD - 12/22/2023 12:30 PM EDTTelephone Encounter - Naila Orellana MD - 12/22/2023 12:30 PM EDTTelephone Encounter - Olga Lidia Saucedo - 12/13/2023 10:35 AM EDT Note Date & Type Note Facility 12-22-2023 Telephone encounter Note Approvals with refills [facility] 12-22-2023 Miscellaneous Notes Approvals with refills documented in this encounter [facility] 12-13-2023 Telephone encounter Note Patient called and would like an order for a mammogram sent over. Last one on 12/20/2022. Thank you [facility] 12-13-2023 Miscellaneous Notes Patient called and would like an order for a mammogram sent over. Last one on 12/20/2022. Thank you documented in this encounter [facility] 04-27-2023 Telephone encounter Note Called pt and informed [facility] 04-27-2023 Miscellaneous Notes Called pt and informed Pt called stated she had LT TSA 07/26/22 and is getting a cavity filled and needs antibiotic called into [facility] in [place]. Allergies: NKDA . Her call back [phone] documented in this encounter [facility] 04-27-2023 Telephone encounter Note Pt called stated she had LT TSA 07/26/22 and is getting a cavity filled and needs antibiotic called into [facility] in [place]. Allergies: NKDA . Her call back [phone] [facility] 04-21-2023 Telephone encounter Note Refills sent. [facility] 04-21-2023 Miscellaneous Notes Refills sent. documented in this encounter [facility] 07-27-2022 Note [id number] [facility] 07-26-2022 Note [facility] SURGERY Clinical Discharge Summary PERSON INFORMATION Name TRACI BARRAZA Age 77 Years 1945 Sex FEMALE Language Turkish PCP SHARI MCKEON Marital Status Med Service Ambulatory Surgery N 18-22-14 Acct# Arrival 07/26/2022 05:52:10 Visit Reason SURGERY - LEFT REVERSE TOTAL SHOULDER - ARTHREX Acuity LOS 053 02:57 Address: [address] [place] [address] [place] [id number] Comment: PROVIDER INFORMATION VITALS INFORMATION Vital Sign [...] Restrictions: DISCHARGE INFORMATION Discharge Disposition: Discharge Location: [facility] REASON INCOMPLETE INFORMATION (more content not included)... [facility] 02-01-2020 Note OPERATIVE NOTE OPERATION DATE: 02/01/2020 [...] position. She was sedated by the nurse security operations engineer. Bite block was placed in her mouth. [...] patient tolerated the procedure without any difficulties. PSYCHIATRIC SIGNED AND APPROVED BY: DR CARLOS EDUARDO MENENDEZ . 02/07/2020 09:15:00 [facility] Evaluation note Diagnosis Essential hypertension (CMS/HCC) Unspecified essential hypertension [facility] Diagnosis S/P reverse total shoulder arthroplasty, left- Primary [facility] Diagnosis Encounter for screening mammogram for malignant neoplasm of breast- Primary [facility] Diagnosis Primary insomnia Persistent disorder of initiating or maintaining sleep documented in this encounter [facility] Summary [...] section and content) DATE CREATED AUTHOR 05/27/2018 [facility] DATE CREATED AUTHOR AUTHOR'S ORGANIZ ATION 11/06/2020 [facility] DATE CREATED AUTHOR AUTHOR'S ORGANIZ ATION 05/12/2022 [facility] dical Specialist DATE CREATED AUTHOR AUTHOR'S ORGANIZ ATION 07/28/[address] [facility] DATE CREATED AUTHOR AUTHOR'S ORGANIZ ATION 10/06/[address] [facility] DATE CREATED AUTHOR AUTHOR'S ORGANIZ ATION 12/16/2023 [facility] DATE CREATED AUTHOR AUTHOR'S ORGANIZ ATION 01/02/2024 [facility] dical Specialists EPIC Reason for Visit (unrecogniz ed section and content) Reason Comments Med Refill Reason 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 Care Teams (unrecognized sec tion and content) Associate Manager Relationship Specialty Start Date End Date Alexander Aparicio NP [address] [place] [address] PCP - Cristobal FIGUEROA 03/21/21 Shari Mckeon MD [address] [place] [address] PCP - General Family Medicine 07/26/22 Associate Manager Relationship Specialty Start Date End Date Alexander Aparicio NP [address] [place] [address] PCP - Cristobal FIGUEROA 03/21/21 Shari Mckeon MD [address] [facility] [address] PCP - General Family Medicine 07/26/22 Associate Manager Relationship Specialty Start Date End Date Alexander Aparicio NP [address] [place] [address] PCP - Cristobal FIGUEROA 03/21/21 Shari Mckeon MD [address] [place] [address] PCP - General Family Medicine 07/26/22 Associate Manager Relationship Specialty Start Date End Date Alexander Aparicio NP [address] [place] [address] PCP - Cristobal FIGUEROA 03/21/21 Shari Mckeon MD [address] [place] [address] PCP - General Family Medicine 07/26/22 Associate Manager Relationship Specialty Start Date End Date Alexander Aparicio NP [address] [place] [address] PCP - Cristobal FIGUEROA 03/21/21 Shari Mckeon MD [address] [place] [address] PCP - General Family Medicine 07/26/22 FOR [...] BE BASED ON THE PRIMARY CLINICAL RECORDS. [facility]. provides no warranty or guarantee of the accuracy or completeness of information in this document.
[2024-01-09 07:41] VITALS: BP 122/58; PULSE 81; TEMP 36.5; O2SAT 98
[2024-01-09 08:19] VITALS: BP 162/66; PULSE 81; O2SAT 96
[2024-01-09 08:20] VITALS: BP 123/60; PULSE 89; O2SAT 96
[2024-01-09] MEDS: BUPIVACAINE HCL 0.25% PF 25 MG/10 ML VIAL 8 ML INJ (08:22)
--- NOTE | 2024-01-09 08:22 | W.PM.PROCNOT ---
Date of procedure: 01/09/24 Pre-op diagnosis: Pain due to thoracic spondylosis without myelopathy Post-op diagnosis: same as pre-op Procedure: Procedure: Bilateral T10-11, 11-12 medial branch block Medications: Bupivacaine 0.25% 6cc The patient was seen and examined in the preoperative holding area.? An informed consent was obtained and placed on the chart.? The patient was brought to the medical procedure unit and placed in the prone position.? A timeout was completed verifying correct patient, procedure site, positioning, plan, and special equipment.? Using aseptic technique, the needle was placed at left T10. Under direct fluoroscopic visualization a Quincke-tipped spinal needle was advanced to the junction of the superior articulating process with the transverse process at the designated medial branch segment.? Preceded by negative aspiration, the above-mentioned injectate was placed in 1 mL aliquots.? The procedure was repeated at left T11, 12.? The needle was removed and insertion site was covered. The same procedure, at the same levels, was completed on the right side. The patient was taken to the postprocedural recovery area and monitored for an appropriate length of time before found suitable for discharge in the company of a responsible adult. Anesthesia: Local Surgeon: Kei Espana Pathology: none sent Condition: stable Disposition: no change
[2024-01-09] MEDS: LIDOCAINE HCL 2% 400 MG/20 ML MDV INJ (08:23)
== END 2024-01-09 08:26 | disposition home or self-care (01) ==
LOC: SURGOUT 07:31
PROVIDERS: PCP Family Medicine; Visit Provider Anesthesiology
DX: M47.814 Spondylosis without myelopathy or radiculopathy, thoracic region (principal)
CPT/HCPCS: 64490; 64491; J0665

== ENCOUNTER 2024-01-11 08:27 | Outpatient (OUT) | payer MEDICARE, SELFPAY ==
--- OUTSIDE RECORDS SUMMARY | 2024-01-11 08:47 | XMS_ITS | CCD ---
Author Organization [facility] Care Team Providers Care Crm Architect Name Role Phone PHYSICIAN, DEFAULT Admitting Unavailable [...] MIKE, DR MENDOZA Consulting Unavailable MIKE, DR MENDZOA Attending Unavailable MIKE, DR MENDOZA Admitting Unavailable MIKE, DR MENDOZA Primary Care Unavailable MIKE, SHARI Amaral Primary Care Unavailable SHARI MCKEON Consulting Unavailable Marisa Ramos Admitting Unavail able Marisa Ramos Attending Unavail able SHARI MCKEON Primary Care Unavailable Marisa Ramos Admitting Unavail able Marisa Ramos Attending Unavail able Albina MANAGER DATABASE, Alexander Plascencia Unavailable Shari Mckeon MD Primary Care Provider ALEXANDER APARICIO Referring Unavailab le SHARI MCKEON Primary Care Unavailable Jovi JAIMES, Kei Brian Attending Unavailable Gieditis , Kei Brian Attending Unavailable Giedraitis , Kei Brian Attending Unavailable Gieddeepak JAIMES, Kei Brian Attending Unavailable Gihira JAIMES, Kei Brian Attending Unavailable Jovi JAIMES, Kei Brian Attending Unavailable ALBINA, ALEXANDER Plascencia Attending [facility] darinel LEYVAMIKESHARI DONOHUE Attending Unavailable SHARI MCKEON Referring Unavailable MARISA RAMOS Attending Unavailable MARISA RAMOS Referring Unavailable MARISA RAMOS Attending Unavailable RICHARD, MARISA Plascencia Attending Unavailable RICHARD, MARISA Plascencia Referring Unavailable MARISA RAMOS [facility]ending [facility]ending [facility]ascencia Attending [facility] ALEXANDER Plascencia Referring Unavail darinel LEYVAMIKESHARI DONOHUE Referring Unavailable Allergies Allergy Classification Reported Allergen(s) Allergy Type Date of Onset Reaction(s) Facility (2 sources) Alendronate; Translations: [Fosamax] Drug Allergy [facility] Repository (5 sources) Alendronate Drug Allergy 09-10-2020 [...] 06-17-2023 06-17-2023 Other aftercare (1 source) 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; Translations: [OTH MANAGEMENT ASSOCIATE CURRENT DRUG THERAPY] Onset: 02-14-2020 Episodic Other aftercare (1 source) 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 Name: CHRISTI TRACIJANELLE SALINAS /Sex: 1945 FEMALE Med Rec #: [id number] Physician: Marisa Ramos DO Financial #: [id number] Pt. Type: D Room/Bed: / Admit/Disch: 07/26/22 [...] Role Performed Surgeon - Primary Anesthesiologist of Marketing Sales Supervisor Record Time In 07/26/22 07:39:00 07/26/22 07:39:00 07/26/22 07:39:00 Time Out 07/26/22 09:49:00 07/26/22 09:49:00 07/26/22 09:49:00 Procedure Arthroplasty Shoulder Arthroplasty Shoulder Arthroplasty Shoulder Total Reverse(Left) Total Reverse(Left) Total Reverse(Left) Last Modified By: Mode GOLDMAN, Jania Coello RN, JaniaJania Cordero RN 07/26/22 09:49:54 07/26/22 09:49:54 07/26/22 09:49:54 Entry 4 Entry 5 Entry 6 Case Attendee Fahad HEM MARKER, Lisa Martinez CST, CST HEM MARKER/CSFAZOE HEM MARKER Role Performed Scrub Personnel Scrub Personnel Wood Shingle Roofer Time In 07/26/22 07:39:00 07/26/22 07:39:00 07/26/22 [...] to chemical sources (more content not included)... [facility] Outside Recordson 07-27-2022 Outside Records [id number] [facility] Provider Orderson 07-27-2022 Provider Orders [id number]#1.00OTGTIFF [facility] Telemetry Stripson Telemetry Strips [id number]#1.00OTGTIFF [facility] Anesthesia Noteon 07-26-2022 Anesthesia Note Patient: TRACI [...] 07/26/2022 11:51 EDT] Remy Da Silva MD [facility] Anesthesia Note Patient: TRACI BARRAZA Age: 77 [...] obstructive pulmonary disease (COPD) / SNOMED CT 25861363 / Confirmed Heart murmur / SNOMED CT 879222327 / Confirmed Hyperlipidemia / SNOMED CT 02379510 / Confirmed HTN (hypertension) / SNOMED CT 9594230246 / Confirmed Histories Family History: COPD Mother Father Procedure history: Arthroplasty of left knee (0566565739). Arthroplasty of right knee (7509798548). Carpal tunnel release (866134659). Comments: 06/29/2022 13:15 Dorota De Leon RN bilat Colonoscopy (588250522). EGD - Esophagogastroduodenoscopy (0561242156). Disorder of rotator cuff (9710635831). Comments: 06/29/2022 13:14 Dorota De Leon RN [...] Oriented. Review / Management Laboratory Results Plan [place] [employer]esthesiologists#(ASA) physical status classification: Class [...] 07/26/2022 08:23 EDT] Remy Da Silva MD [facility] Inpatient Patient Summaryon 07-26-2022 [place] [address] Patient Discharge Instructions Name: TRACI BARRAZA : 1945 Patient Address: [address] [place] [address] Primary Care Provider: Name: SHARI MCKEON After you are discharged if you find you have any questions, please, call [phone] ext [phone] to speak to a nurse. Discharge Diagnosis: [...] problems; contact the [facility] 04/10 Crisis Hotline -Text 4HOPE to [phone]. If you received any narcotics, sedation, or [...] Follow-up Instructions With: Address: When: Marisa SniderRichard [address] [place] [address], [address] [place] [address] Business (1) 08/03/2022 11:00 AM Medications During [...] TRACI BARRAZA/Sex: 1945 FEMALE Med Rec #: [id number] Physician: Marisa Ramos DO Financial #: [id number] Pt. Type: D Room/Bed: / Admit/Disch: 07/26/22 [...] Warga, Laura RN Role Performed Anesthesiologist of Marketing Sales Supervisor Marketing Sales Supervisor Record Time In 07/26/22 07:13:00 07/26/22 07:13:00 07/26/22 07:13:00 Time Out 07/26/22 07:38:00 07/26/22 07:38:00 07/26/22 07:38:00 Procedure Interscalene Block(Left) Interscalene Block(Left) Interscalene Block(Left) Last Modified By: Kimberley Le RN, Margaret RN Klaehn, Margaret RN 07/26/22 07:39:31 07/26/22 07:39:31 07/26/22 07:39:31 Entry 4 Case Attendee Amy Bates RN Role Performed Marketing Sales Supervisor Time In 07/26/22 07:13:00 Time Out 07/26/22 [...] Stretcher Post-op Destinat (more content not included)... [facility] MAGR PACU Recordon 3 MAGR PACU Record MAGR PACU Record [facility] Primary Physician: Marisa Ramos DO Finalized Date/Time: 07/26/22 10:38:28 Pt. Name: TRACI BARRAZA/Sex: 1945 FEMALE Med Rec #: [id number] Physician: Marisa Ramos DO Financial #: [id number] Pt. Type: D Room/Bed: / Admit/Disch: 07/26/22 05:52:10 - Institution: PACU Case Times MAGR Entry 1 In PACU I 07/26/22 09:51:00 Discharge from PACU 07/26/22 10:35:00 I Last Modified By: Warner Bolton RN 07/26/22 10:38:23 Finalized By: Warner Bolton RN Document Signatures Signed By: Warner Bolton RN 07/26/22 10:38 [facility] MAGR Postoperative Recordon 07-26-2022 MAGR Postoperative Record MAGR Phase II Record Summary Primary Physician: Marisa Ramos DO Finalized Date/Time: 07/26/22 12:01:17 Pt. Name: TRACI BARRAZA/Sex: 1945 FEMALE Med Rec #: [id number] Physician: Marisa Ramos DO Financial #: [id number] Pt. Type: D Room/Bed: / Admit/Disch: 07/26/22 [...] Signed By: Annamarie Samuels RN 07/26/22 12:01 [facility] Preoperative Recordon 0 07-26-2022 [facility] Preoperative Record MAGR Pre-Op Record Summary Primary Physician: Marisa Ramos DO Finalized Date/Time: 07/26/22 07:44:03 Pt. Name: TRACI BARRAZA /Sex: 1945 FEMALE Med Rec #: [id number] Physician: Marisa Ramos DO Financial #: [id number] Pt. Type: D Room/Bed: / Admit/Disch: 07/26/22 [...] Estimated blood loss: 50 Complications: None Findings: Bfyj-[id number] in the glenohumeral joint Procedure summary: Patient [...] on: 07/26/2022 09:35 EDT] Marisa Ramos DO [facility] Patient Handouton 07-26-[address] MESSINA [...] or concerns, please call the office at [phone] 7. Follow up as scheduled [facility] XR Shoulder 1 View Lefton XR Shoulder [...] MD 07/27/22 4:01 pm Technologist: JORDON RUVALCABA [facility] Comment on above: Order Comment: chey regalado status post shoulder replacement Progress Note - Nurseon 07-12 Progress Note - Nurse Pre-op call made to pt. Pt states understanding of arrival time of 0600 on 07/26/22 and NPO after MN. [Electronically Signed on: 07/23/2022 09:27 EDT] Shantel Gonsalez RN [Verified on: 07/23/2022 09:27 EDT] Shantel Gonsalez RN [facility] Coding Summaryon 07-02-2022 Coding Summary HTMLBase 64 IkxielhyIIp7rHu+PGhlYWQ+PE1F IUVbU51epYHrlR2ZA2fHBC7PSFGB DBWMXQ6XYD3bbRF5GEsxV5SnfoWd NimrlALxMR52SJl2STB8vTucUNqe bI8zmPWaM1m7UpWhJG94kY35QDil ERYtQiC0TaNrgjrqzCAm K7ddEtSrhSMuRbj+PHRhYmxlIHdp BCGlSHckLWGnHqIswXxqLY4qOk0p ZGVyLWNvbGxhcHNlOiBj z9ltCGMbZIdbRI9ztMxhA8EqaVE7 VKKzb6g1Yz45xKX+LDMzQPA6oAth JRyyp284ErElc6jmHZA6 bZBiMExaAQH3N84dm7C5LXZkYABe ITI2xJU5wL3cfQdehipfS8NuwVWj HzU7ZPG6fIOtaX7xiCyl hrwwpX9mVib+S72QLA2NQKQRPM7R Urq6G4GrNcbfmVM+KM15ITUvNI45 vXYpeYNnd0zomWy9AoWw RUQcATR1iZwrFMtzw7TjGYXmZ66v xSWiv1M7PZDjfYbrcFViLeJisPZ5 dY5aFOzqyqyqe5cppzwa Gohex3wllp44aO84W83eBXoiGNJl BLB7OHTtVDEnmQnobl5zvD4wTq8+ MLedb8gup7jztAo0QpTe PRCtdwDnxMhnYZI5x1LbAi14M1Lc zTxbh8BgTvb3gz50gEDgs7B4qHU8 MXjoZJJshY1pQFqzAuR1 NEXvWqCqtF77yXCjFXujIk5puUua fBdnOJ8eBWDmrxxmTJAdgG6nQSPh vQMzcPlyDO9gJFHmuvxy b806ReOxNHR6NEIdpKDqP3NzwC1e YdFnOYTjDMYqX9IgiAIhXOsjS815 KMubJrL9UBFednOiV6Tf DKWeuHaoVrT6g5A0Xd5Nc9Muebxo QIW4LErfWQK4AqPtYeYrUkH7J4Bo Xck0EGXsiIbaJO7dD6Mv DNDkhsxskitroTO1WXRvLRKuxT95 tSYuJYkpMi5el2M0h464FIWaQVOt tI36Co4meJcmCAGdnLFP bC4njslcq9cxtwpwPcBbLSRjQIb3 CRr6OWDmbSojReVfCMS0RfC6IPL2 xHWljZ1mvXajlvxshO3s Oyc+V36rhG1wMZE4RSY1lpvaMJHz wkOtSF64GH37A4JqCzbjzQCxuKU+ HPMabnTiiGjvTY3jUaDu l5nik8HhZJssP2YeWKTvNXayRgz4 CIJyWUX7cSZ4pE3hWOIkQNycr7M2 rMS0S6EoasBksb7ji5yw LBXsLBsbQ21abXKwt9F7QRJeuER4 GHCbwVwwCyZioF69Rem+PGNvbGdy q3MhIlsqi0sqr3tkcAa7 ZfZiPJVrovHmxAtwCTU4z3SeEf37 Z40aXGqpMCDoWYLzKZPqKGPheFyy so3swJ6lPe8+PGNvbCB3 lSX7gL7jJJBeTqA1OEvvZ149IqIy sHCdJmuhh6izk5emiLk3GyBuAFDs wuLlcNgkHOC9r2LaVk24 R63iJUgnYQUbYWJcBLUsYSOqdQqh wj6vxV7wBk8+EG9bm3hyxg35rN58 dHI+APRzNFJ4vOkyIOxr NIBroD2gFHgvTqW0RZAnGwLlhI68 jAIeTYbeDp1kjBqeoWujJY7hYWTz rpxpr209SnAvd7jiSFSk bAOiVWdmFHV6B74ev4J0XQVdAHDz RAG9iZT6iT1fbNrbpvzciWUrdXep lpAkxZbuLLygHLbfM219 IHRvcDsnPlBhdGllbnQgTmFtZTo8 V6MqXhq4RGKifVjlEA1tzEWiUQwc Of4coHpobTgxRF8uYBMc xiyyf485HtTmb8kiACCzdJWhEEux WLS1L99fa2E3GNAnABReHGP7pRM2 kZ6erTxjguxcaTWsvWal kjAykQygPPbpQMunB085IULtlRav RuTgmrRkOTEitEN9CJ33XD90cXQn a8G4eGP2P3KoIBLxdzsu mqlxnYF4SCFvNTKyoV95Mg6mmWzk Qp9aVZNzOBQ5BUAghCNiQ4OuhL2q NpQyOEZdXIGmA9DhaEQn ORjsD893GMyeQbL3JWVaboEwX4Me ZAUylFsvPgJ6d8K3Wi9SU1P1SG93 OA61xBHqy1R6mJL9I8Eg SMKydwagwmnxcAH8OJYhBYWbnN02 Ya9maJzgUu5hNRVlVIO7DKAcuOVw J8ZslG7xXoWfZBGcLRZc F8FllNYpMFzlN024STynJxV7MVDp blWwB9DoMUVnjJmcErZ8e9X5Uv2J AFa6FT50YV35yXTdo2M7 bJL1P5MxJIQkaluiyyjwqJS8BRNx VTDpeF89Zt7qcGpmWw8gUBZvNET0 WHApbYFbY8NxlB8aLcSw ZEVbCABiZ4TeaXBvBKvlZ161DAtf XdT2TXUmjgFhG0KrHYRjuMyfEpO6 i6H5Iq1PBQYgMY30QTU2 dSI7IR93JY56A5SfZnyxeHNajPW+ PHRhYmxlIHdpZHRoPScxMDAlJyBz iTjvBC7cTe1nKBNaXOXy wQtzzHUdIlZju8ybNODpXQkjIT5d nMxcC6LouGF3MGQif3g3Na81C44u D8AhtTI+IEHngAU7jCF4 bG7kWcXtMyW2VFtgT155DkAgyETk Iujay1uzw7mueWi6LnZ6XNNmafLe sCaoEWC7r0AzOa24J92c CLctJUBpQKYnUZCaPLUzwDwtgw6y dL7qVi5+MSRjaBJ2wHC0mA4pLcYj KuS4BQrgD401FhJosGPu Jmwsb5aej1xpuBx8RkHgESUmrfUr iOzlXMG4i5PqIy57A9MgoWdrc4Td Hri6wh17xHQdf6Q3sEY6 O6DeXPCqvfhxxLVcbVtfWS4rTLRj mvpaJMWtwR1pWXFcR2t0GbZtCxM9 RUnaM3TfszS9AOMmfNGe QDleBUY2Q50ex3S9ZQNtEPOrSQF1 zSM7aC4yvBvwkktfcYBepCrzgiRh zIxdWWoaMPfnD515ORVl sCziKPSswR0xNHIqqAPtfBogAD7z VCInpmfhGrfTHSYlJGhDZLquVD7X ZPv2S9BzMzo9KPFojAgj KO7dpARzUSzpFo2fyCndbLwkBG1a GPWtbdglBDOyzF5oVNFirJYejDyt ZE8uDFZguzozr732NnAi UAF1TGUdnNEoS2KlgZ9tVvNcVZNy HVGgI3KfpOMrHEixG623DYloNuJ0 CBTvfmYwE9KhCTBmjNyg GnY9q6X4Eq6cEr1pBn4cRPI8HS58 CP36pQHdg9B1uMA9O4LzKJFwijxi eqfigSC8URXzIVPrxG39 rJNiEDdtXw9lj0N0i121FKBaVVRi tU01Go0wtGvyVJFagAXBwW5tmztl y3izqnxmUxNhLTVcNBm8 HKi3EKJovNuhJbFhJAZ0PjI4OCR5 vKJycV7snGpunnobfY2tLfg+Nzgg JKKdggH7Z2WvQhk9SJXd tYdyOV8lrRPaLVxkFx6uoPbzbKad CF5yVYQmodqiMBEaqP2fNXRzlDDo dJcbID7vRIBeduczn870 ByBdSIA5VPRzzGRiN2RuxT8cLuHe OQDsHPLdK0PjiVAcUTwsW943VWuh ClN8GJHzzmOfZ8ArSCQa qWkiHpR2s1W8Ar2GBB9YUKU2J2Dw Mwr3JEPxkKjsHJ2oyDPsOHmjVa3d mPuljLtjZN2qGJQisdkr VJIbvT6qUBRgfFEjhNqiNT2fEPUl lqaqn413MjMlLJB4YKOrrAFpQ7Ha pM2rZiDmFURhEWImO7Ji gVNvVQhzQ636UZdyQdP5GWOnqlTe Q6JhVIXceCyrYqG1b6Z3Wl0XYWzo dGQ+XJ71dw92D9WmGuid Xns6GSFdNUS2xLA2vI7dOKCaXUmi o6N4xOA8H6VzfdNlgf0hk3ivXYSl LPrmV59guITgd9T6AULo bPD5AQWdlPckUaRxcG69Clm+PGNv gVunf1VvHwbug5uhk0upuWb2MrPm YLPsspOhdCffLWM7y7Zd Gx35E52xANvrKFWhQBGqEVKjTRIp rRgtse4ksY2pEr6+JYMsdNB0mYQ6 jT7gHeVpHcL5QGfqR012 KsPdpOMsXyxti4glh4fcgVy1EgWk MUYzryHekAqfIRP7e6HbYt33P7Qi xMqnv0QoWvq4dd14hRGc o3D9jXV5B0XlAEGhedhzsJElvFrn FC4yOHNiseplASCjxA1gAHLiZ0r4 WuKpJqB3PKhhZ9YawtM7 WDMvwJGxGENqaSWNdX6hsutnj4rc zfmiQyPhTULmNZt8MFx3JUMukAru IkGiBOM8DaV3FVD0nUPg vB6uaDhchwbspC9iVxv+HEb7a4sp vSQyYX9mhYF1NK34PR28oLRdb8Q6 aZN3M8GdNFJpzhryrgkf wWO6FMApVKTlvY42Je1waEqhEf4g STDxIGM6NYFthPMuF6FndU0fSiSj LPWuJVFrR7MzhPDwLNpt P545IMpnAdK4JBAztdYiO4SlZIGa rCdpUpL0j4Z4Tw6KNI63OK17AY65 iFPyu1I1qGQ4R7WsIRHo rsynksrfxFQ2LACqYSUlwO84Dp1r hAjnEe7nRCOcZFS6FCQxxDKxK8Gt vP7nYpDqQAGdHBQqA3Od oJQdEQalD978YQknPmO5VXThziEk U9OlNBKbgQobRoV3x8V1Mh4YCl68 UM42HC49vFVmn2R6vXF4 W2QbKKPwdnrpynltzES9NQTlNKYp uL02Rq5jkKkrCu2sTTHnFLX6CKQq jVCzA8LufM2qUuMhFTXd GPFqE4NmsICmBHemL342LArqRrQ8 WRObyzAjT9PgLFRpiVwaDvL9v3F9 Kt2HCKxjacc4K7JyTtbw dHI+GR11KCPvTI68qWUczBArg1qz bJa1UoYsGNMqUNY2rVqdLNusy6Di ZAJjX13htPHbo6R4NIEh bGx (more content not included)... [facility] C MRSA Screenon 06-30-2022 C MRSA Screen Negative [facility] Comment on above: Performed By: #### 1 [id number] ####[facility] (DEFAULT)[address] [place] [address]64 Progress Note - Nurseon 06-12 Progress Note - Nurse Dr. Castro reviewed PAT notes for upcoming surgery 07/26/2022. No new orders at this time [Electronically Signed on: 06/30/2022 11:45 EDT] Annamarie Samuels RN [Verified on: 06/30/2022 11:45 EDT] Annamarie Samuels RN [facility] Provider Orderson 06-30-2022 Provider Orders [id number]#[id number] [facility] .Auto Diff 1on 06-29-2022 Auto Hamblen % 10 % Normal 03-25 [facility] Comment on above: Performed By: #### 7 [id number], [id number], [id number] ####[facility] (DEFAULT)[address] [place] [address] Baso Abs# 0.0 x10 Normal 0.0-0.2 [facility] Comment on above: Performed By: #### 7 259056, [id number], [id number] ####[facility] (DEFAULT)[address] [place] [address] Basophils/100 WBC (Bld) 0.7 % Normal 0.2-2.0 [facility] Comment on above: Performed By: #### 7 [id number], [id number], [id number] ####[facility] (DEFAULT)[address] [place] [address]994 Eos Abs# 0.6 x10 High 0.0-0.4 [facility] Comment on above: Performed By: #### 7 [id number], [id number], [id number] ####[facility] (DEFAULT)[address] [place] [address] Eosinophils/100 WBC (Bld) 8.5 % High 0.9-4.0 [facility] Comment on above: Performed By: #### 7 [id number], [id number], [id number] ####[facility] (DEFAULT)[address] [place] [address] Lymph Abs# 1.6 x10 Normal 1.3-2.9 [facility] Comment on above: Performed By: #### 7 [id number], [id number], [id number] ####[facility] (DEFAULT)[address] [place] [address] Lymphocytes/100 WBC (Bld) 24 % Normal 14-48 [facility] Comment on above: Performed By: #### 7 225856, [id number], [id number] ####[facility] (DEFAULT)[address] [place] [address] Hamblen Abs# 0.7 x10 Normal 0.0-0.8 [facility] Comment on above: Performed By: #### 7 664235, [id number], [id number] ####[facility] (DEFAULT)[address] [place] [address] Neut Abs# 3.8 x10 Normal 1.5-9.2 [facility] Comment on above: Performed By: #### 7 [id number], [id number], [id number] ####[facility] (DEFAULT)[address] [place] [address] 15746 Neutrophils/100 WBC (Bld) 57 % Normal 44-88 [facility] Comment on above: Performed By: #### 7 788351, [id number], [id number] ####[facility] (DEFAULT)[address] [place] [address] 69984 BMP Standardon 06-29-2022 eGFR Non AA 33 mL/min/1.73m2 Invalid Interpretation Code [facility] Comment on above: Performed By: #### 7 527909, [id number], [id number] ####[facility] (DEFAULT)[address] [place] [address] 01194 eGFR AA 40 mL/min/1.73m2 Invalid Interpretation Code [facility] Comment on above: Performed By: #### 7 476504, [id number], [id number] ####[facility] (DEFAULT)[address] [place] [address] 97333 Anion gap [Moles/Vol] 8.9 mmol/L Normal 5.0-19.0 [facility] Comment on above: Performed By: #### 7 678431, [id number], [id number] ####[facility] (DEFAULT)[address] [place] [address] 28696 Calcium [Mass/Vol] 9.3 mg/dL Normal 8.9-10.3 [facility] Comment on above: Performed By: #### 7 289483, [id number], [id number] ####[facility] (DEFAULT)[address] [place] [address] 25187 Chloride [Moles/Vol] 102 mmol/L Normal 101-111 [facility] Comment on above: Performed By: #### 7 575897, [id number], [id number] ####[facility] (DEFAULT)[address] [place] [address] 28038 CO2 [Moles/Vol] 28 mmol/L Normal 21-32 [facility] Comment on above: Performed By: #### 7 325661, [id number], [id number] ####[facility] (DEFAULT)[address] [place] [address] 37113 Creatinine [Mass/Vol] 1.53 mg/dL High 0.60-1.30 [facility] Comment on above: Performed By: #### 7 083361, [id number], [id number] ####[facility] (DEFAULT)[address] [place] [address] 62306 Glucose [Mass/Vol] 107.0 mg/dL Normal 74.0-118.0 [facility] Comment on above: Performed By: #### 7 897042, [id number], [id number] ####[facility] (DEFAULT)[address] [place] [address] 17960 Osmolality 279 mOsm/L Invalid Interpretation Code [facility] Comment on above: Performed By: #### 7 725559, [id number], [id number] ####[facility] (DEFAULT)[address] [place] [address] 60520 Potassium [Moles/Vol] 3.9 mmol/L Normal 3.6-5.1 [facility] Comment on above: Performed By: #### 7 746936, [id number], [id number] ####[facility] (DEFAULT)[address] [place] [address] 92431 Sodium [Moles/Vol] 135.0 mmol/L Low 136.0-144 . 0 [facility] Comment on above: Performed By: #### 7 [id number], [id number], [id number] ####[facility] (DEFAULT)[address] [place] [address] 79296 Urea nitrogen [Mass/Vol] 36 mg/dL High 8-26 [facility] Comment on above: Performed By: #### 7 [id number], [id number], [id number] ####[facility] (DEFAULT)[address] [place] [address] 36794 Urea nitrogen/Creatinine [Mass ratio] 23.5 mg/mg High 4.6-16.2 [facility] Comment on above: Performed By: #### 7 [id number], [id number], [id number] ####[facility] (DEFAULT)[address] [place] [address] 94691 CBC w/ Auto Diffon 3 Erythrocyte distribution width (RBC) [Ratio] 12.8 % Normal 11.5-15.0 [facility] Comment on above: Performed By: #### 7 [id number], [id number], [id number] ####[facility] (DEFAULT)[address] [place] [address] 23098 Hematocrit (Bld) [Volume fraction] 36.4 % Normal 33.7-40.4 [facility] Comment on above: Performed By: #### 7 [id number], [id number], [id number] ####[facility] (DEFAULT)[address] [place] [address] 06073 Hemoglobin (Bld) [Mass/Vol] 12.2 g/dL Normal 11.3-15.9 [facility] Comment on above: Performed By: #### 7 [id number], [id number], [id number] ####[facility] (DEFAULT)[address] [place] [address] Man Diff? Auto Invalid Interpretation Code [facility] Comment on above: Performed By: #### 7 [id number], [id number], [id number] ####[facility] (DEFAULT)[address] [place] [address] 95514 MCH (RBC) [Entitic mass] 32 pg Normal 24-34 [facility] Comment on above: Performed By: #### 7 [id number], [id number], [id number] ####[facility] (DEFAULT)[address] [place] [address] 37775 MCHC (RBC) [Mass/Vol] 33 g/dL Normal 26-37 [facility] Comment on above: Performed By: #### 7 [id number], [id number], [id number] ####[facility] (DEFAULT)[address] [place] [address] 70078 MCV (RBC) [Entitic vol] 97 fL Normal 81-100 [facility] Comment on above: Performed By: #### 7 [id number], [id number], [id number] ####[facility] (DEFAULT)[address] [place] [address] 37083 Platelet 336 x10 Normal 138-427 [facility] Comment on above: Performed By: #### 7 112854, [id number], [id number] ####[facility] (DEFAULT)[address] [place] [address] 08628 Platelet mean volume (Bld) [Entitic vol] 7.2 fL Normal 6.3-10.2 [facility] Comment on above: Performed By: #### 7 884120, [id number], [id number] ####[facility] (DEFAULT)[address] [place] [address] RBC 3.77 x10 Normal 3.70-5.30 [facility] Comment on above: Performed By: #### 7 [id number], [id number], [id number] ####[facility] (DEFAULT)[address] [place] [address] WBC 6.7 x10 Normal 3.5-10.5 [facility] Comment on above: Performed By: #### 7 865231, [id number], [id number] ####[facility] (DEFAULT)[address] [place] [address] UA w Culture if Ind Standard on 06-29-2022 Breakpoint UA [facility] Comment on above: Performed By: #### 1 [id number] #### [facility] (DEFAULT) [address] [place] [address] Color (U) Yellow [facility] Comment on above: Performed By: #### 1 [id number] #### [facility] (DEFAULT) [address] [place] [address] Culture? Not Indicated Invalid Interpretation Code [facility] Comment on above: Result Comment: Resu lt created by rule [id number] Performed By: #### 1 [id number] #### [facility] (DEFAULT) [address] [place] [address] Glucose (U) [Mass/Vol] Negative [facility] Comment on above: Performed By: #### 1 [id number] #### [facility] (DEFAULT) [address] [place] [address] Ketones Ql (U) Negative [facility] Comment on above: Performed By: #### 1 [id number] #### [facility] (DEFAULT) [address] [place] [address] Micro? Not Indicated Invalid Interpretation Code [facility] Comment on above: Result Comment: Resu lt created by rule GL_MAGR_ADD_UA_MICRO Performed By: #### 1 [id number] #### [facility] (DEFAULT) [address] [place] [address] UA Bilirubin Negative Normal [facility] Comment on above: Performed By: #### 1 [id number] #### [facility] (DEFAULT) [address] [place] [id number] UA Blood Negative Normal NEGATIVE [facility] Comment on above: Performed By: #### 1 [id number] #### [facility] (DEFAULT) [address] [place] [id number] UA Clarity CLEAR Normal CLEAR [facility] Comment on above: Performed By: #### 1 [id number] #### [facility] (DEFAULT) [address] [place] [address] UA Leuk Est Negative Normal NEGATIVE [facility] Comment on above: Performed By: #### 1 [id number] #### [facility] (DEFAULT) [address] [place] [address] UA Nitrite Negative Normal NEGATIVE [facility] Comment on above: Performed By: #### 1 [id number] #### [facility] (DEFAULT) [address] [place] [id number] UA pH 6.5 Normal 5-8 [facility] Comment on above: Performed By: #### 1 [id number] #### [facility] (DEFAULT) [address] [place] [id number] UA Protein Negative Normal NEGATIVE [facility] Comment on above: Performed By: #### 1 [id number] #### [facility] (DEFAULT) [address] [place] [address] UA Spec Grav 1.010 Normal 1.001-1.[address] [place] [address] Comment on above: Performed By: #### 1 [id number] #### [facility] (DEFAULT) [address] [place] [address] UA Urobilinogen 0.2 mg/dL Normal 0.2-1.0 [facility] Comment on above: Performed By: #### 1 [id number] #### [facility] (DEFAULT) [address] [place] [address] Urine Source Clean Catch Normal [facility] Comment on above: Performed By: #### 1 [id number] #### [facility] (DEFAULT) [address] [place] [address] [id number] MRI Shoulder w/o Lefton 04-15 MRI Shoulder [...] by Adarsh Adams on 05/11/2022 1041 Normal [facility] SCREENING MAMMOGRAM W/ARABELLA, BILATERAL*on 11-20-2021 SCREENING [...] VERY IMPORTANT TO YOUR HEALTH. THE CURRENT [employer] GUIDELINES RECOMMENDS ANNUAL MAMMOGRAPHY BEGINNING AT AGE 39 THIS FACILITY USES A REMINDER SYSTEM TO ENSURE ALL PATIENTS RECEIVE REMINDER NOTIFICATIONS AT THE APPROPRIATE TIME BASED ON THE RECOMMENDATIONS OF THIS EXAM. Report reported and signed by Alejandro Forte on 11/20/2021 0949 Normal [facility] Comprehensive Metabolic Pane george 06-10-2021 Albumin [Mass/Vol] 4.2 g/dL Normal 3.6-5.1 Madyson goldman [place] [employer] Comment on above: Performed By: #### C JEWELS LIPD #### [facility] [address] [facility] [place] [id number] Albumin/Globulin [Mass ratio] 1.7 {ratio} Normal 1.0-2.5 [facility] Specialist Comment on above: Performed By: #### C JEWELS LIPD #### [facility] [address] [facility] [place] [id number] ALP [Catalytic activity/Vol] 82 U/L Normal 35-119 [facility] Comment on above: Performed By: #### C JEWELS LIPTeresa #### [facility] [address] [facility] [place] [id number] ALT [Catalytic activity/Vol] 15 U/L Normal 6-33 [facility] Comment on above: Result Comment: 02/11 Female reference range changed. Performed By: #### C JEWELS LIPD #### [facility] [address] [facility] [place] [id number] Anion gap [Moles/Vol] 15 mmol/L Normal 12-20 [facility] Comment on above: Result Comment: Effe ctive 03/19/2019 reference range changed. Performed By: #### C JEWELS LIPD #### [facility] [address] [facility] [place] [id number] AST [Catalytic activity/Vol] 21 U/L Normal 9-34 [facility] Comment on above: Performed By: #### C JEWELS LIPD #### [facility] [address] [facility] [place] [id number] BUN/CREA 28 Ratio High 6-22 [facility] Comment on above: Performed By: #### C JEWELS LIPD #### [facility] [address] [facility] [id number] Calcium [Mass/Vol] 9.3 mg/dL Normal 8.6-10.2 Madyson rn [place] [employer] [facility] Comment on above: Performed By: #### C JEWELS LIPD #### [facility] [address] [place], [place] [id number] Chloride [Moles/Vol] 106 mmol/L Normal 98-107 [facility] Comment on above: Performed By: #### JARVIS Anaya MP #### [facility] [address] [place], [place] [id number] CO2 [Moles/Vol] 24 mmol/L Normal 20-31 [facility] Comment on above: Performed By: #### C JARVIS DONIS #### [facility] [address] [place], [place] [id number] Creatinine [Mass/Vol] 1.1 mg/dL Normal 0.6-1.4 [facility] Specialist Comment on above: Performed By: #### JARVIS Anaya MP #### [facility] [address] [place], [place] [id number] eGFRAA 58 mL/min/1.73m2 Low >60 [facility] Specialist Comment on above: Performed By: #### JARVIS Anaya MP #### [facility] [address] [place], [place] [id number] eGFRNAA 48 mL/min/1.73m2 Low >60 [facility] Specialist Comment on above: Performed By: #### JARVIS Anaya MP #### [facility] [address] [place], [place] [id number] Globulin (S) [Mass/Vol] 2.5 g/dL Normal 1.9-3.7 [facility] Specialist Comment on above: Performed By: #### JARVIS Anaya MP #### [facility] [address] [place], [place] [id number] Glucose [Mass/Vol] 94 mg/dL Normal 65-99 [facility] Comment on above: Result Comment: For FASTING Glucose --- ADA reference ranges: Normal 65-99 mg/dl Prediabetes 100-125 Diabetes >/= 126 Performed By: #### JARVIS Anaya MP #### [facility] [address] [place], [place] [id number] Potassium [Moles/Vol] 4.4 mmol/L Normal 3.5-5.5 [facility] Specialist Comment on above: Performed By: #### JARVIS Anaya MP #### [facility] [address] [place], [place] [id number] Protein [Mass/Vol] 6.7 g/dL Normal 6.1-8.1 [facility] [place] Specialist Comment on above: Performed By: #### C MP, LIPD #### [facility] [address] [place], [place] [id number] Sodium [Moles/Vol] 141 mmol/L Normal 135-146 [facility] [place] Specialist Comment on above: Performed By: #### C MP, LIPD #### [facility] [address] [place], [place] [id number] TBIL <0.3 Normal [facility] Comment on above: Performed By: #### C MP, LIPD #### [facility] [address] [place], [place] [id number] Urea nitrogen [Mass/Vol] 32 mg/dL High 7-25 [facility] Specialist Comment on above: Performed By: #### C MP, LIPD #### [facility] [address] [place], [place] [id number] Lipid Panelon 06-10-2021 Cholesterol [Mass/Vol] 237 mg/dL High 125-200 [facility] Special[facility] Comment on above: Result Comment: Low risk < 200mg/dL Borderline risk 201-239 mg/dl High risk > or equal to 240 Performed By: #### C MP, LIPD #### [facility] [address] [place], [place] [id number] Cholesterol in HDL [Mass/Vol] 100 mg/dL Normal >40 [facility] Specialist Comment on above: Result Comment: High Cardiovascular Risk HDL <40 mg/dL Low Cardiovascular Risk HDL > or equal to 60 mg/dl Performed By: #### C MP, LIPD #### [facility] [address] [place], [place] [id number] Cholesterol in LDL [Mass/Vol] 124 mg/dL Normal [facility] Specialist Comment on above: Result Comment: LDL ATP III CLASSIFICATION LDL less than 100 mg/dl Optimal LDL 100-129 mg/dl Near or above optimal LDL 130-159 Borderline high LDL 160-189 High LDL greater than 189 mg/dl Very High Performed By: #### C MP, LIPD #### [facility] [address] [place], [place] [id number] Cholesterol in VLDL [Mass/Vol] 13 mg/dL Normal [facility] Specialist Comment on above: Performed By: #### C JEWELS, LIPD #### [facility] [address] [place], [place] [id number] Cholesterol.total/Ch olesterol in HDL [Mass ratio] 2 {ratio} Normal [facility] Specialist Comment on above: Performed By: #### C MP, LIPD #### [facility] [address] [place], [place] [id number] Triglyceride [Mass/Vol] 67 mg/dL Normal 30-150 [facility] Specialist Comment on above: Result Comment: TRIG ATPIII CLASSIFICATIONS TRIG less than 150 mg/dl Normal TRIG 150-199 mg/dl Borderline High TRIG 200-500 mg/dl High TRIG greather than 500 mg/dl Very High Performed By: #### C JEWELS, LIPD #### [facility] [address] [place], [place] [id number] ECHOCARDIO M/2D COMPLETEon 0 10-24-2020 ECHOCARDIO M/2D COMPLETE Patient: TRACI BARRAZA Exam Date: 10/24/2020 : 1945 Gender:F Ordering : DR SHARI MCKEON M.D. Admission #: [id number] Family : Order #: [id number] CLICK HERE TO VIEW EXAM ECHOCARDIOGRAM REPORT [...] Area(A4C): 13.90 cm2 Left Atrium Systolic Volume(A2C): 82361 mm3 Left Atrium Systolic Volume(A4C): 80364 mm3 Mitral Valve MV E to A Ratio: 1.10 Mitral Valve A-Wave Peak Velocity: 68.60 cm/s Mitral Valve E-Wave Peak Velocity: 74.50 cm/s Deceleration Time: 259 ms Right Ventricle Aorta AO Root Diam: 2.60 cm Aortic Valve Peak Velocity (Antegrade Flow): 161.00 cm/s, 230.00 cm/s AoV Area (Peak Daniel): 1.93 cm2 AoV Area (VTI): 1.90 cm2 Deceleration Vernon: 1880 mm/s2 Pressure Half-Time: 528 ms Peak [...] M.D. on 10/24/2020 at 19:17 Normal [facility] HEMOGLOBINon 09-30-2020 Hemoglobin (Bld) [Mass/Vol] 12.3 g/dL Normal 12.0-16.0 [facility] Comment on above: Performed By: #### H GB #### [facility] [address] [place], [place] [address] Geraldo Gaitan H PYLORI TISSUEon 02-01-2020 H PYL TISSUE, UREASE Negative Normal NEGATIVE [facility] Comment on above: Performed By: #### H GB #### [facility] [address] [place], [place] [address] Geraldo Gaitan COVID-19 PCRon 01-27-2020 SARS-CoV-2 (COVID-19) RNA VIVIENNE+probe Ql (Unsp spec) Not detected Normal Not Detected [facility] Comment on above: Result Comment: This nucleic acid amplification test was developed and its performance characteristics determined by [employer]. Nucleic acid amplification tests include PCR and [...] Performed By: #### C VDSTAT, CVDPCR #### [facility] [address] [place] [address] Geraldo Gaitan PRIORITY COVID PROCESSINGon 01-27-2020 Comment Comment Normal [facility] Comment on above: Result Comment: Rece ived Performed By: #### C VDSTAT, CVDPCR #### [facility] [address] [place] [address] Geraldo Gaitan CULTURE BLOODon 01-08-2020 Microscopic examination [...] F Trimethoprim/Sulfamethoxazol e <=20 S F Normal [facility] Comment on above: Performed By: #### H GB #### [facility] [address] [place] [address] Geraldo Gaitan BLOOD CULTURE ID PANELon A. baumannii Not detected Normal [facility] Comment on above: Performed By: #### B MIRYAM #### [facility] [address] [place] [address] Geraldo Gaitan BCID CONTROLS PASSED Normal [facility] Comment on above: Performed By: #### B MIRYAM #### [facility] [address] [place] [address] Geraldo Gaitan BCIDBTHD BLOOD CULTURE BOTTLE INFORMATION Normal [facility] Comment on above: Performed By: #### B MIRYAM #### [facility] [address] [place] [address] Geraldo Gaitan BCIDHD1 ANTIMICROBIAL RESIST ANCE GENES Normal [facility] Comment on above: Performed By: #### B MIRYAM #### [facility] [address] [place] [address] Geraldo Kandy BCIDHD2 SEE BELOW Normal [facility] Comment on above: Result Comment: KPC- carbapenem resistance gene, mecA- methecillin resistance gene, van A/B- vancomycin resistance gene Note: Antimicrobial resitance can occur via multiple mechanisms. A Not Detected result for the [employer] antomicrobial resistance gene assays does not indicate antimicrobial susceptibility. Subculturing is required for specis identificationand susceptibility testing of isolates. Performed By: #### B MIRYAM #### [facility] [address] [place] [address] Geraldo Kandy BCIDHD3 Positive Normal [facility] Comment on above: Performed By: #### B MIRYAM #### [facility] [address] [place] [address] Geraldo Kandy BCIDHD3 Negative [facility] Comment on above: Performed By: #### B MIRYAM #### [facility] [address] [place] [address] Geraldo Kandy BCIDHD5 YEAST Normal [facility] Comment on above: Performed By: #### B MIYRAM #### [facility] [address] [place] [address] Geraldo Kandy BCIDHD6 SEE BELOW [facility] Comment on above: Result Comment: Note : All genus and species BCID [employer] results will be verified post subculturing via Maldi-Tof MS testing methodology. Performed By: #### B MIRYAM #### [facility] [address] [place] [address] Geraldo Kandy Bottle Set: Set 2 [facility] Comment on above: Performed By: #### B MIRYAM #### [facility] [address] [place] [address] Geraldo Kandy Bottle: Aerobic Normal [facility] Comment on above: Performed By: #### B MIRYAM #### [facility] [address] [place] [address] Geraldo Kandy Naomi albicans Not detected Normal [facility] Comment on above: Performed By: #### B MIRYAM #### [facility] [address] [place] [address] Geraldo Kandy Naomi glabrata Not detected Normal [facility] Comment on above: Performed By: #### B MIRYAM #### [facility] [address] [place] [address] Geraldo Kandy Naomi Krusei Not detected Normal [facility] Comment on above: Performed By: #### B MIRYAM #### [facility] [address] [place] [address] Geraldo Kandy Naomi Parapsilosis Not detected Normal [facility] Comment on above: Performed By: #### B MIRYAM #### [facility] [address] [place] [address] Geraldo Kandy Naomi Tropicalis Not detected Normal [facility] Comment on above: Performed By: #### B MIRYAM #### [facility] [address] [place] [address] Geraldo Kandy E. Cloacae complex Not detected Normal [facility] Comment on above: Performed By: #### B MIRYAM #### [facility] [address] [place] [address] Geraldo Kandy Enterobacteriaceae Detected Invalid Interpretation Code [facility] Comment on above: Performed By: #### B MIRYAM #### [facility] [address] [place] [address] Geraldo Kandy Enterococcus Not detected Normal [facility] Comment on above: Performed By: #### B MIRYAM #### [facility] [address] [place] [address] Geraldo Kandy Escheria coli Detected Normal [facility] Comment on above: Performed By: #### B MIRYAM #### [facility] [address] [place] [address] Geraldo Kandy K. oxytoca Not detected Normal [facility] Comment on above: Performed By: #### B MIRYAM #### [facility] [address] [place] [address] Geraldo Kandy K. pneumoniae Not detected Normal [facility] Comment on above: Performed By: #### B MIRYAM #### [facility] [address] [place] [address] Geraldo Kandy KPC Resistant Gene Not detected Normal [facility] Comment on above: Performed By: #### B MIRYAM #### [facility] [address] [place] [address] Geraldobhumi Charlesen List. monocytogenes Not detected Normal [facility] Comment on above: Performed By: #### B MIRYAM #### [facility] [address] [place] [address] Geraldo Kandy mecA Resistant Gene Not detected Normal [facility] Comment on above: Performed By: #### B MIRYAM #### [facility] [address] Kandy Proteus Not detected Normal [facility] Comment on above: Performed By: #### B MIRYAM #### [facility] [address] [place] [address] Kandy Pseud. aeruginosa Not detected Normal [facility] Comment on above: Performed By: #### B MIRYAM #### [facility] [address] [place] [address] Gearldo Kandy Seratia marcescens Not detected Normal [facility] Comment on above: Performed By: #### B MIRYAM #### [facility] [address] [place] [address] Geraldo Gaitan Site: R AC Normal [facility] Comment on above: Performed By: #### B MIRYAM #### [facility] [address] [place] [address] Geraldo Gaitan Staph. aureus Not detected Normal [facility] Comment on above: Performed By: #### B MIRYAM #### [facility] [address] [place] [address] Geraldo Kandy Staphylococcus Not detected Normal [facility] Comment on above: Performed By: #### B MIRYAM #### [facility] [address] [place] [address] Geraldo Kandy Strep. agalactiae Not detected Normal [facility] Comment on above: Performed By: #### B MIRYAM #### [facility] [address] [place] [address] Geraldo Kandy Strep. pneumoniae Not detected Normal [facility] Comment on above: Performed By: #### B MIRYAM #### [facility] [address] [place] [address] Geraldo Gaitan Strep. pyogenes Not detected Normal [facility] Comment on above: Performed By: #### B MIRYAM #### [facility] [address] [place] [address] Geraldo Gaitan Streptococcus Not detected Normal [facility] Comment on above: Performed By: #### B MIRYAM #### [facility] [address] [place] [address] Geraldo Gaitan Aicha/B Resist. Gene Not detected Normal [facility] Comment on above: Performed By: #### B MIRYAM #### [facility] [address] [place] [address] Geraldo Gaitan CBC AUTO DIFFon 01-02-2020 BASO # 0.0 103/ul Normal 0.0-0.1 [facility] Comment on above: Performed By: #### C BC #### [facility] [address] [place] [address] Geraldo Gaitan Basophils/100 WBC (Bld) 0.3 % Normal 0.2-2.0 [facility] Comment on above: Performed By: #### C BC #### [facility] [address] [place] [address] Geraldo Gaitan EO # 0.0 103/ul Normal 0.0-0.7 [facility] Comment on above: Performed By: #### C BC #### [facility] [address] [place] [address] Geraldo Gaitan Eosinophils/100 WBC (Bld) 0.3 % Critically low 0.9-7.0 [facility] Comment on above: Performed By: #### C BC #### [facility] [address] [place] [address] Geraldo Gaitan Erythrocyte distribution width (RBC) [Ratio] 12.6 % Normal 11.0-15.0 [facility] Comment on above: Performed By: #### C BC #### [facility] [address] [place] [address] Geraldobhumi Gaitan Hematocrit (Bld) [Volume fraction] 42.7 % Normal 36.0-48.0 [facility] Comment on above: Performed By: #### C BC #### [facility] [address] [place], [place] [id number] Geraldo Kandy Hemoglobin (Bld) [Mass/Vol] 13.6 g/dL Normal 12.0-16.0 [facility] Comment on above: Performed By: #### C BC #### [facility] [address] [place], [place] [address] Geraldo Kandy IG # 0.04 10e3/ul Critically high 0.00-0.03 [facility] Comment on above: Performed By: #### C BC #### [facility] [address] [place] [address] Geraldo Kandy IG % 0.3 % Normal 0.0-0.5 [facility] Comment on above: Performed By: #### C BC #### [facility] [address] [place] [address] Grealdo Kandy LYMPH # 0.5 103/ul Critically low 1.2-3.8 [facility] Comment on above: Performed By: #### C BC #### [facility] [address] [place] [address] Geraldo Gaitan Lymphocytes/100 WBC (Bld) 4.4 % Critically low 20.5-60.0 [facility] Comment on above: Performed By: #### C BC #### [facility] [address] [place] [address] Geraldo Gaitan MANUAL DIFF REQ NO Normal [facility] Comment on above: Performed By: #### C BC #### [facility] [address] [place], [place] [id number] Geraldo Gaitan MCH (RBC) [Entitic mass] 30.6 pg Normal 26.7-34.0 [facility] Comment on above: Performed By: #### C BC #### [facility] [address] [place] [address] Geraldo Gaitan MCHC (RBC) [Mass/Vol] 31.9 g/dL Normal 29.9-35.2 [facility] Comment on above: Performed By: #### C BC #### [facility] [address] [place], [place] [address] Geraldobhumi Gaitan MCV (RBC) [Entitic vol] 96.0 fL Normal 81.0-99.0 [facility] Comment on above: Performed By: #### C BC #### [facility] [address] [place], [place] [address] Geraldobhumi Gaitan MONO # 0.8 103/ul Normal 0.3-0.8 [facility] Comment on above: Performed By: #### C BC #### [facility] [address] [place], [place] [address] Geraldobhumi Gaitan Monocytes/100 WBC (Bld) 6.5 % Normal 1.7-12.0 [facility] Comment on above: Performed By: #### C BC #### [facility] [address] [place] [address] Geraldobhumi Charlesen NEUT # 10.1 103/ul Critically high 1.4-6.5 [facility] Comment on above: Performed By: #### C BC #### [facility] [address] [place], [place] [address] Geraldobhumi Gaitan Neutrophils/100 WBC (Bld) 88.2 % Critically high 43.0-75.0 [facility] Comment on above: Performed By: #### C BC #### [facility] [address] [place], [place] [address] Geraldobhumi Gaitan Platelet mean volume (Bld) [Entitic vol] 9.8 fL Normal 9.5-13.5 [facility] Comment on above: Performed By: #### C BC #### [facility] [address] [place], [place] [address] Geraldo Kandy PLT 254 103/ul Normal 150-450 [facility] Comment on above: Performed By: #### C BC #### [facility] [address] [place], [place] [address] Geraldo Kandy RBC 4.45 106/ul Normal 4.20-5.40 [facility] Comment on above: Performed By: #### C BC #### [facility] [address] [place], [place] [address] Geraldo Kandy CT HEAD WO CONon 01-02-2020 [...] REMY NESS Date: 2020-01-02 19:00 Normal [facility] CULTURE BLOODon 01-02-2020 Microscopic examination of blood, culture Culture Observations: No growth at 5 days Normal [facility] Comment on above: Performed By: #### H GB #### [facility] [address] [place] [id number] Geraldo Gaitan CULTURE URINEon 01-02-2020 CULTURE URINE Culture Observations : Light growth of mixed genital eliezer.No potential pathogens seen. Normal [facility] Comment on above: Performed By: #### H GB #### [facility] [address] [place] [id number] Geraldo Kandy ER URINE PROFILEon 0 Bilirubin Ql (U) Negative Normal NEGATIVE [facility] Comment on above: Performed By: #### E MELODY SHAH #### [facility] [address] [id number] Geraldo Kandy Clarity (U) SL CLOUDY Normal [facility] Comment on above: Performed By: #### E MELODY SHAH #### [facility] [address] [id number] Geraldo Kandy Color (U) LT. YELLOW Normal YELLOW [facility] Comment on above: Performed By: #### E KANDICE SHAHRO #### [facility] [address] [place] [address] Geraldo Kandy ERUAHD A micrscopic examina tion will be performed if indicated. Normal [facility] Comment on above: Performed By: #### MELODY CORDOVA #### [facility] [address] [place] [address] Geraldo Kandy Glucose Ql (U) Negative Normal NEGATIVE [facility] Comment on above: Performed By: #### MELODY CORDOVA #### [facility] [address] [place] [address] Geraldo Kandy Hemoglobin Ql (U) SMALL Normal NEGATIVE [facility] Comment on above: Performed By: #### MELODY CORDOVA #### [facility] [address] [place] [address] Geraldo Kandy Ketones Ql (U) Negative Normal NEGATIVE [facility] Comment on above: Performed By: #### MELODY CORDOVA #### [facility] [address] [place] [address] Geraldo Kandy LEUKOCYTES TRACE Normal NEGATIVE [facility] Comment on above: Performed By: #### MELODY CORDOVA #### [facility] [address] [place] [address] Geraldo Kandy Nitrite Ql (U) Negative Normal NEGATIVE [facility] Comment on above: Performed By: #### MELODY CORDOVA #### [facility] [address] [place] [address] Geraldo Kandy pH (U) 7.0 [pH] Normal 5-9 [facility] Comment on above: Performed By: #### MELODY CORDOVA #### [facility] [address] [place] [address] Geraldo Kandy Protein Ql (U) 30 mg/dl Normal [facility] Comment on above: Performed By: #### MELODY CORDOVA #### [facility] [address] [place] [address] Geraldo Kandy SPEC GRAVITY 1.015 Normal 1.005-<=1. 025 [facility] Comment on above: Performed By: #### E MELODY SHAH #### [facility] [address] [place] [address] Geraldobhumi Gaitan UR MICRO IND INDICATED Normal [facility] Comment on above: Performed By: #### E MELODY SHAH #### [facility] [address] [place] [address] Geraldobhumi Gaitan Urobilinogen Qn (U) 0.2 {Eileen'U}/dL Normal [facility] Comment on above: Performed By: #### E MELODY SHAH #### [facility] [address] [place] [address] Geraldo Knady LACTATE/LACTIC ACIDon 2019 Lactate [Moles/Vol] 1.1 mmol/L Normal 0.7-2.0 [facility] Comment on above: Performed By: #### H GB #### [facility] [address] [place] [address] Geraldo Kandy PROCALCITONINon 01-02-2020 PCT header 1 SEE BELOW Normal [facility] Comment on above: Result Comment: PCT <0.5ng/mL: Systemic infection (sepsis) is not likely, local bacterial infection possible, low risk for progression to severe systemic infection (severe sepsis) Performed By: #### P RL #### [facility] [address] [place] [address] Geraldo Kandy PCT header 2 SEE BELOW Normal [facility] Comment on above: Result Comment: PCT >/=0.5 and <2 ng/mL: Systemic infection (sepsis) is possible, moderate risk for progression to severe systemic infection (severe sepsis) Performed By: #### P RL #### [facility] [address] [place] [address] Geraldo Kandy PCT header 3 SEE BELOW Normal [facility] Comment on above: Result Comment: PCT >/=2.0 and <10 ng/mL: Systemic infection (sepsis) is likely, unless other causes are known, high risk for progession to severe systemic infection(severe sepsis) Performed By: #### P RL #### [facility] [address] [place], [place] [id number] Geraldobhumi Gaitan PCT header 4 SEE BELOW Normal [facility] Comment on above: Result Comment: PCT >/= 10 ng/mL: Important systemic inflammatory response almost exclusively due to severe bacterial sepsis or septic shock, high likelihood of severe sepsis or septic shock Performed By: #### P RL #### [facility] [address] [place] [address] Geraldo Gaitan PROCALCITONIN 0.62 ng/mL Critically high 0.00-0.50 [facility] Comment on above: Performed By: #### P RL #### [facility] [address] [place], [place] [address] Geraldo Gaitan PROF 14(COMP METB)on 01-01- 020 Albumin [Mass/Vol] 3.6 g/dL Normal 3.5-5.0 [facility] Comment on above: Performed By: #### C MP #### [facility] [address] [place], [place] [id number] Geraldo Gaitan Albumin/Globulin [Mass ratio] 0.8 {ratio} Normal [facility] Comment on above: Performed By: #### C MP #### [facility] [address] [place], [place] [address] Geraldo Kandy ALP [Catalytic activity/Vol] 95 U/L Normal 38-126 [facility] Comment on above: Performed By: #### C MP #### [facility] [address] [place], [place] [address] Geraldo Gaitan ALT [Catalytic activity/Vol] 32 U/L Normal 9-52 [facility] Comment on above: Performed By: #### C MP #### [facility] [address] [place], [place] [address] Geraldo Kandy Anion gap [Moles/Vol] 13.8 mmol/L Normal [facility] Comment on above: Performed By: #### C MP #### [facility] [address] [place], [place] [address] Geraldobhumi Gaitan AST [Catalytic activity/Vol] 42 U/L Critically high 14-36 [facility] Comment on above: Performed By: #### C MP #### [facility] [address] [id number] Geraldo Kandy Bilirubin [Mass/Vol] 0.5 mg/dL Normal 0.2-1.3 [facility] Comment on above: Performed By: #### C MP #### [facility] [address] [id number] Geraldo Kandy Calcium [Mass/Vol] 9.4 mg/dL Normal 8.4-10.2 [facility] Comment on above: Performed By: #### C MP #### [facility] [address] [id number] Geraldo Kandy Chloride [Moles/Vol] 100 mmol/L Normal 98-107 [facility] Comment on above: Performed By: #### C MP #### [facility] [address] [address] Geraldo Kandy CO2 [Moles/Vol] 24.6 mmol/L Normal 22.0-30.0 [facility] Comment on above: Performed By: #### C MP #### [facility] [address] [id number] Geraldo Kandy Creatinine [Mass/Vol] 1.36 mg/dL Critically high 0.52-1.04 [facility] Comment on above: Performed By: #### C MP #### [facility] [address] [address] Geraldo Kandy EGFR-AF ESTONIAN 46 mL/min/1.73m2 Critically low >=60 [facility] Comment on above: Performed By: #### C MP #### [facility] [address] [address] Geraldo Kandy EGFR-NON AF ESTONIAN 38 mL/min/1.73m2 Critically low >=60 [facility] Comment on above: Performed By: #### C MP #### [facility] [address] [id number] Geraldo Kandy Globulin (S) [Mass/Vol] 4.5 g/dL Normal [facility] Comment on above: Performed By: #### C MP #### [facility] [address] [address] Geraldo Kandy Glucose [Mass/Vol] 120 mg/dL Critically high 74-106 [facility] Comment on above: Performed By: #### C MP #### [facility] [address] [address] Geraldo Kandy Potassium [Moles/Vol] 3.4 mmol/L Normal 3.4-5.0 [facility] Comment on above: Performed By: #### C MP #### [facility] [address] [place] [address] Geraldo Kandy Protein [Mass/Vol] 8.1 g/dL Normal 6.1-8.2 [facility] Comment on above: Performed By: #### C MP #### [facility] [address] [place] [address] Geraldo Kandy Sodium [Moles/Vol] 135 mmol/L Critically low 137-145 [facility] Comment on above: Performed By: #### C MP #### [facility] [address] [place] [address] Geraldo Kandy Urea nitrogen [Mass/Vol] 22.0 mg/dL Critically high 7.0-17.0 [facility] Comment on above: Performed By: #### C MP #### [facility] [address] [place] [address] Geraldo Kandy Urea nitrogen/Creatinine [Mass ratio] 16.2 mg/mg Normal [facility] Comment on above: Performed By: #### C MP #### [facility] [address] [place] [address] Geraldo Kandy RESPIRATORY PANEL PLUSon Adenovirus Not detected Normal NOT DETECTED [facility] Comment on above: Performed By: #### R SPLUS #### [facility] [address] [place] [address] Geraldo Kandy B. Parapertusis Not detected Normal NOT DETECTED [facility] Comment on above: Performed By: #### R SPLUS #### [facility] [address] [place] [address] Geraldo Kandy B. Pertussis Not detected Normal NOT DETECTED [facility] Comment on above: Performed By: #### R SPLUS #### [facility] [address] [place] [address] Geraldo Kandy Chlamydia Pneumoniae Not detected Normal NOT DETECTED [facility] Comment on above: Performed By: #### R SPLUS #### [facility] [address] [place] [address] Geraldo Kandy Coronavirus 229E Not detected Normal NOT DETECTED [facility] Comment on above: Performed By: #### R SPLUS #### [facility] [address] [place] [address] Geraldo Kandy Coronavirus HKU1 Not detected Normal NOT DETECTED [facility] Comment on above: Performed By: #### R SPLUS #### [facility] [address] [place] [address] Geraldo Kandy Coronavirus NL63 Not detected Normal NOT DETECTED [facility] Comment on above: Performed By: #### R SPLUS #### [facility] [address] [place] [address] Geraldo Kandy Coronavirus OC43 Not detected Normal NOT DETECTED [facility] Comment on above: Performed By: #### R SPLUS #### [facility] [address] [place] [address] Geraldo Kandy Influenza A H1 2009 Not detected Normal NOT DETECTED [facility] Comment on above: Performed By: #### R SPLUS #### [facility] [address] [place] [address] Geraldo Kandy Influenza B Not detected Normal NOT DETECTED [facility] Comment on above: Performed By: #### R SPLUS #### [facility] [address] [place] [address] Geraldo Kandy Metapneumovirus Not detected Normal NOT DETECTED [facility] Comment on above: Performed By: #### R SPLUS #### [facility] [address] [place] [address] Geraldo Kandy Mycoplas. Pneumoniae Not detected Normal NOT DETECTED [facility] Comment on above: Performed By: #### R SPLUS #### [facility] [address] [place] [address] Geraldo Kandy Parainfluenza 1 Not detected Normal NOT DETECTED [facility] Comment on above: Performed By: #### R SPLUS #### [facility] [address] [place] [address] Geraldo Kandy Parainfluenza 2 Not detected Normal NOT DETECTED [facility] Comment on above: Performed By: #### R SPLUS #### [facility] [address] [place] [address] Geraldo Kandy Parainfluenza 3 Not detected Normal NOT DETECTED [facility] Comment on above: Performed By: #### R SPLUS #### [facility] [address] [place] [address] Geraldo Kandy Parainfluenza 4 Not detected Normal NOT DETECTED [facility] Comment on above: Performed By: #### R SPLUS #### [facility] [address] [place] [address] Geraldo Kandy Rhino/Enterovirus Not detected Normal NOT DETECTED [facility] Comment on above: Performed By: #### R SPLUS #### [facility] [address] [place] [address] Geraldo Kandy RP2 Header 1 RESPIRATORY PANEL: VIRUSES Normal [facility] Comment on above: Performed By: #### R SPLUS #### [facility] [address] [place] [address] Geraldo Kandy RP2 Header 2 RESPIRATORY PANEL: BACTERIA Normal [facility] Comment on above: Performed By: #### R SPLUS #### [facility] [address] [place] [address] Geraldo Kandy RP2 Header 4 EUA SEE BELOW Normal [facility] Comment on above: Result Comment: This test is not yet approved or cleared by the [place] FDA. When there are no FDA-approved or cleared tests available, and other criteria are met, FDA can make tests available under an emergency access mechanism called an Emergency Use Authorization (EUA). The EUA for this test is supported by the [place] of Health and Human Service?s (HHS?s) declaration [...] used). Performed By: #### R ELBERT #### [facility] [address] [place] [address] Geraldo Kandy RSV Not detected Normal NOT DETECTED [facility] Comment on above: Performed By: #### R SPLUS #### [facility] [address] [place] [address] Geraldobhumi Gaitan SARS-CoV-2 (COVID-19) RNA VIVIENNE+probe Ql (Unsp spec) Not detected Normal NOT DETECTED [facility] Comment on above: Performed By: #### R ELBERT #### [facility] [address] [place] [address] Geraldo Kandy URINE MICROSCOPIC ONLYon BACTERIA MODERATE Normal NONE SEEN [facility] Comment on above: Performed By: #### MELODY CORDOVA #### [facility] [address] [place] [address] Geraldo Kandy Bacteria identified Cx Nom (U) INDICATED Normal [facility] Comment on above: Performed By: #### MELODY CORDOVA #### [facility] [address] [place] [address] Geraldo Kandy CAST NONE SEEN Normal NONE SEEN [facility] Comment on above: Performed By: #### MELODY CORDOVA #### [facility] [address] [place] [address] Geraldo Kandy Crystals LM Nom (Urine sed) NONE SEEN Normal NONE SEEN [facility] Comment on above: Performed By: #### MELODY CORDOVA #### [facility] [address] [place] [address] Geraldo Kandy Epithelial cells LM Ql (Urine sed) RARE Normal [facility] Comment on above: Performed By: #### KANDICE CORDOVARO #### [facility] [address] [place] [address] Geraldo Kandy MUCOUS NONE SEEN Normal NONE SEEN [facility] Comment on above: Performed By: #### E MELODY SHAH #### [facility] [address] [place], [place] [address] Geraldo Kandy RBC 0-2 Normal 0-2 [facility] Comment on above: Performed By: #### E MELODY SHAH #### [facility] [address] [place], [place] [address] Geraldo Kandy WBC 5-10 Normal NONE SEEN [facility] Comment on above: Performed By: #### E KANDICE SHAHRO #### [facility] [address] [place], [place] [address] Geraldo Kandy XR CHEST 1 Von 01-02-2020 [...] REMY NESS Date: 2020-01-02 18:52 Normal [facility] Encounters Encounter Date Encounter Type [...] 12-12-2023 End: 12-12-2023 ambulatory Kei Espana MD Facility:[facility] Start: 11-28-2023 End: 11-28-2023 ambulatory Kei Espana MD Facility:[facility] Start: 10-04-2023 End: 10-04-2023 ambulatory ALEXANDER APARICIO [facility] Start: 09-19-2023 End: 09-19-2023 ambulatory ALEXANDER APARICIO Not Available Start: 09-19-2023 End: 09-19-2023 ambulatory ALEXANDER A ALBINA Not Available Start: 09-05-2023 End: 09-05-2023 ambulatory Andlindaus Tawnyaautanthony Quintanillaitis [facility] Start: 08-22-2023 End: 08-22-2023 ambulatory Andrius Vytautas Mirianeditis Facility:[facility] Start: 07-25-2023 End: 07-25-2023 ambulatory Andrius Emmaytautas Sherinraitis Facility:[facility] Start: 07-11-2023 End: 07-11-2023 ambulatory Andrius Emmaytautas Sherinraitis Facility:[facility] Start: 06-17-2023 End: 06-17-2023 ambulatory ALEXANDER APARICIO Not Available Start: 04-27-2023 Telephone encounter Marisa sierra DO Work Phone: [facility] 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 Start: 04-21-2023 Refill Alexander Deantej marcum MANAGER DAT[employer] Work Phone: [facility] Comment on [...] preprocedural laboratory examination DR CARLOS EDUARDO MENENDEZ [facility] Start: 01-26-2020 End: 01-27-[address] SHARI MCKEON Facility:[facility] Start: 01-26-2020 End: 01-27-2020 Encounter for preprocedural laboratory examination DR SHARI MCKEON Facility:[facility] Start: 01-02-2020 End: 01-02-[address] BÁRBARA BLUE Facility:[facility] Start: 05-25-2018 End: 05-26-2018 Patient encounter procedure DEFAULT PHYSICIAN Facility:[facility] Plan of Treatment Date Care Activity Detail Author Start: 06-16-2024 Medicare Annual Wellness (AWV) Medicare Annual Wellness (AWV) [facility] Start: 12-28-2023 End: 12-28-2023 Professional / ancillary services management 12/28/2023 9:00 AM EDT Ancillary Procedure [facility] [address] [place] [address] [facility] Start: 12-13-2023 End: 02-11-2025 MG Breast - bilateral Screening Bilateral screening mammogram Imaging Routine Encounter for screening mammogram for malignant neoplasm of breast Expected: 12/13/2023, Expires: 02/11/2025 [facility] Work Phone: Comment on above: Expected: 12/13/2023 , Expires: 02/11/2025 Start: 11-13-2023 Influenza vaccination Influenza Vacc ine (#1) [facility] Start: 08-02-2023 End: 08-02-2023 Patient encounter procedure 08/02/2023 9:00 AM EDT Office Visit [facility] [address] [facility] [place] [address] [place] [id number] Marisa Ramos DO [address] [facility] [address] [place] [address] [facility] Start: 05-06-2023 Medicare Annual Wellness (AWV) Medicare Annual Wellness (AWV) [facility] Immunizations Immunization Date Immunization Notes Care Provider Fa cili 12-23-2022 Influenza, High-dose Seasonal, Quadrivalent, Preservative Free Alexander Hackenburg MANAGER DAT[employer]ASE Work Phone: [facility] 12-23-2022 SARS-COV-2 (COVID-19 ) vaccine, mRNA, spike protein, LNP, PF, 50 mcg/0.5 mL Alexander Hackenburg MANAGER DAT[employer]ASE Work Phone: [facility] 12-23-2022 influenza virus vaccine, unspecified formulation Shari Mckeon MD Work Phone: [facility] 12-01-2021 Influenza, Seasonal, Quadrivalent, Adjuvanted Alexander Hackenburg MANAGER DAT[employer]ASE Work Phone: [facility] 12-01-2021 Seasonal, trivalent, recombinant, injectable influenza vaccine, preservative free Alexander Hackenburg MANAGER DAT[employer]ASE Work Phone: [facility] 12-16-2020 Influenza, High-dose Seasonal, Quadrivalent, Preservative Free Alexander Hackenburg MANAGER DAT[employer]ASE Work Phone: [facility] 02-14-2020 zoster vaccine recombinant Alexander Hackenburg MANAGER DAT[employer]ASE Work Phone: [facility] 12-07-2019 influenza, seasonal, injectable Alexander Hackenburg MANAGER DAT[employer] Work Phone: [facility] 11-13-2019 influenza, injectabl e, quadrivalent, preservative free Alexander Hackenburg MANAGER DAT[employer]ASE Work Phone: [facility] 11-13-2019 zoster vaccine recombinant Alexander Hackenburg MANAGER DAT[employer]ASE Work Phone: [facility] 11-12-2019 zoster vaccine recombinant Alexander Hasobiaenburg MANAGER DAT[employer]ASE Work Phone: [facility] 11-29-2018 Seasonal trivalent influenza vaccine, adjuvanted, preservative free Alexander Hasobiaenburg MANAGER DAT[employer]ASE Work Phone: [facility] 11-30-2017 influenza, high dose seasonal, preservative-free Alexander Hasobiaenburg MANAGER DAT[employer]ASE Work Phone: [facility] 11-24-2017 Seasonal trivalent influenza vaccine, adjuvanted, preservative free Alexander Hasobiaenburg MANAGER DAT[employer]ASE Work Phone: [facility] 11-18-2016 influenza, high dose seasonal, preservative-free Alexander Hasobiaenburg MANAGER DAT[employer]ASE Work Phone: [facility] Work Phone: 11-18-2016 pneumococcal conjuga te vaccine, 13 valent Alexander Magyburg MANAGER DAT[employer]ASE Work Phone: [facility] 11-18-2016 Seasonal trivalent influenza vaccine, adjuvanted, preservative free Alexander Hasobiaenburg MANAGER DAT[employer]ASE Work Phone: [facility] 11-18-2016 tetanus toxoid, redu greg diphtheria toxoid, and acellular pertussis vaccine, adsorbed Alexander Patrickenburg MANAGER DAT[employer]ASE Work Phone: [facility] 11-12-2016 pneumococcal polysaccharide vaccine, 23 valent Alexander Hasobiaenburg MANAGER DAT[employer] Work Phone: [facility] 12-11-2015 influenza, high dose seasonal, preservative-free Alexander Hackenburg MANAGER DAT[employer] Work Phone: [facility] 12-30-2014 influenza virus vaccine, whole virus Alexander Hackenburg MANAGER DAT[employer] Work Phone: [facility] 12-30-2014 influenza, injectabl e, quadrivalent, preservative free Alexander Hackenburg MANAGER DAT[employer]ASE Work Phone: [facility] 05-10-2014 pneumococcal conjuga te vaccine, 13 valent Alexander Hackenburg MANAGER DAT[employer]ASE Work Phone: [facility] 12-13-2013 influenza virus vaccine, whole virus Alexander Aparicio MANAGER DAT[employer]ASE Work Phone: [facility] 01-12-2013 pneumococcal Conjuga te, unspecified formulation Alexander Aparicio MANAGER DAT[employer]ASE Work Phone: [facility] 01-12-2013 seasonal influenza, intradermal, preservative free Alexander Aparicio MANAGER DAT[employer]ASE Work Phone: [facility] 12-27-2012 pneumococcal polysaccharide vaccine, 23 valent Alexander Aparciio MANAGER DAT[employer]ASE Work Phone: [facility] Payers Date Payer Category Payer Unknown 2017 Medicare [employer] MEDICARE ADVANTAGE [facility] MEDICARE ADVANTAGE [id number] 2017-Present [address] [place] [address] [id number] 1959 Unknown [id number] 1944 Unknown [id number] 2..840.1.072071.3.579.2.647 1944 Unknown [id number] 2..840.1.798116.3.579.2.593 1944 Unknown [id number] 2.840.1.209567.3.579.2.593 1944 Unknown [id number] 2.16.840.1.228724.3.579.2.593 1944 Unknown [id number] 2.16.840.1.387423.3.579.2.593 1944 Unknown [id number] 2.16.840.1.741388.3.579.2.593 1944 Unknown [id number] 2.16.840.1.792085.3.579.2.718 1944 Unknown [id number] 2.16.840.1.869501.3.579.2.718 1944 Unknown [id number] 2.16.840.1.321771.3.579.2.128 6 1944 Unknown [id number] 2.16.840.1.496834.3.579.2.196 1944 Unknown [id number] 2.16.840.1.449927.3.579.2.196 1944 Unknown [id number] 2.16.840.1.031453.3.579.2.196 1944 Unknown [id number] 2.16.840.1.676877.3.579.2.196 1944 Unknown [id number] 2.16.840.1.801955.3.579.2.196 1944 Unknown [id number] 2.16840.1.675765.3.579.2.196 1944 Unknown [id number] 2.16.840.1.768510.3.579.2.125 9 1944 Unknown [id number] 2.16.840.1.778152.3.579.2.125 9 1944 Unknown [id number] 2.16.840.1.542155.3.579.2.125 9 1944 Unknown [id number] 2.16840.1.885215.3.579.2.125 9 1944 Unknown [id number] 2.16.840.1.102570.3.579.2.125 9 1944 Unknown [id number] 2.16.840.1.299289.3.579.2.125 9 1944 Unknown [id number] 2.16.840.1.735554.3.579.2.125 9 1944 Unknown [id number] 2.16.840.1.982656.3.579.2.125 9 1944 Unknown [id number] 2.16.840.1.796604.3.579.2.125 9 1944 Unknown [id number] 2.16.840.1.342899.3.579.2.125 9 1944 Unknown [id number] 2.16.840.1.228790.3.579.2.125 9 1944 Unknown [id number] 2.16.840.1.020144.3.579.2.125 9 1944 Unknown [id number] 2.16.840.1.189086.3.579.2.125 9 1944 Unknown [id number] 2.16.840.1.038902.3.579.2.125 9 Social History Date Type Detail Facility Start: 09-17-2022 Tobacco smoking [facility] [facility] Never smoked tobacco [facility] [...] 12-22-2023 Telephone encounter Note Approvals with refills [facility] 12-22-2023 Miscellaneous Notes Approvals with refills documented in this encounter [facility] 12-13-2023 Telephone encounter Note Patient called and would like an order for a mammogram sent over. Last one on 12/20/2022. Thank you [facility] 12-13-2023 Miscellaneous Notes Patient called and would like an order for a mammogram sent over. Last one on 12/20/2022. Thank you documented in this encounter [facility] 04-27-2023 Telephone encounter Note Called pt and informed [facility] 04-27-2023 Miscellaneous Notes Called pt and informed Pt called stated she had LT TSA 07/26/22 and is getting a cavity filled and needs antibiotic called into [facility] in [place]. Allergies: NKDA . Her call back [phone] documented in this encounter [facility] 04-27-2023 Telephone encounter Note Pt called stated she had LT TSA 07/26/22 and is getting a cavity filled and needs antibiotic called into [facility] in [place]. Allergies: NKDA . Her call back [phone] [facility] 04-21-2023 Telephone encounter Note Refills sent. [facility] 04-21-2023 Miscellaneous Notes Refills sent. documented in this encounter [facility] 07-27-2022 Note [phone] [id number] [facility] 07-26-2022 Note [facility] SURGERY Clinical Discharge Summary PERSON INFORMATION Name TRACI BARRAZA Age 77 Years 1945 Sex FEMALE Language Divehi PCP SHRAI MCKEON Marital Status Med Service Ambulatory Surgery N 18-22-14 Acct# Arrival 07/26/2022 05:52:10 Visit Reason SURGERY - LEFT REVERSE TOTAL SHOULDER - ARTHREX Acuity LOS 053 02:57 Address: [address] [place] [address] [place] [id number] Comment: PROVIDER INFORMATION VITALS INFORMATION Vital Sign [...] Restrictions: DISCHARGE INFORMATION Discharge Disposition: Discharge Location: [facility] REASON INCOMPLETE INFORMATION (more content not included)... [...] position. She was sedated by the nurse lead developer. Bite block was placed in her mouth. [...] patient tolerated the procedure without any difficulties. [facility] SIGNED AND APPROVED BY: DR CARLOS EDUARDO MENENDEZ . 02/07/2020 09:15:00 [facility] Evaluation note Diagnosis Essential hypertension (CMS/HCC) [...] section and content) DATE CREATED AUTHOR 05/27/2018 [facility] DATE CREATED AUTHOR AUTHOR'S ORGANIZ ATION 11/06/2020 [facility] DATE CREATED AUTHOR AUTHOR'S ORGANIZ ATION 05/12/2022 [facility] Special[facility] DATE CREATED AUTHOR AUTHOR'S ORGANIZ ATION 07/28/2022 [facility] DATE CREATED AUTHOR AUTHOR'S ORGANIZ ATION 10/06/2023 [facility] DATE CREATED AUTHOR AUTHOR'S ORGANIZ ATION 12/16/2023 [facility] DATE CREATED AUTHOR AUTHOR'S ORGANIZ ATION 01/02/2024 [facility] d[facility] Specialists EPIC Reason for Visit (unrecogniz ed section and content) Reason Comments Med Refill Reason 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 Care Teams (unrecognized sec tion and content) Crm Architect Relationship Specialty Start Date End Date Alexander Aparicio NP [address] [place] [address] PCP - Cristobal FIGUEROA 03/21/21 Shari Mckeon MD [address] [place] [address] PCP - General Family Medicine 07/26/22 Crm Architect Relationship Specialty Start Date End Date Alexander Aparicio NP [address] [place] [address] PCP - Cristobal FIGUEROA 03/21/21 Shari Mckeon MD [address] [place] [facility] [address] PCP - General Family Medicine 07/26/22 Crm Architect Relationship Specialty Start Date End Date Alexander Aparicio NP [address] [place] [address] PCP - Cristobal FIGUEROA 03/21/21 Shari Mckeon MD [address] [place] [address] PCP - General Family Medicine 07/26/22 Crm Architect Relationship Specialty Start Date End Date Alexander Aparicio NP [address] [place] [address] PCP - Cristobal FIGUEROA 03/21/21 Shari Mckeon MD [address] [place] [address] PCP - General Family Medicine 07/26/22 Crm Architect Relationship Specialty Start Date End Date Alexander Aparicio NP [address] [place] [address] PCP - Cristobal FIGUEROA 03/21/21 Shari Mckeon MD [address] [place] [address] PCP - General Family Medicine [...] BE BASED ON THE PRIMARY CLINICAL RECORDS. [facility] provides no warranty or guarantee of the accuracy or completeness of information in this document.
--- NOTE | 2024-01-11 08:52 | P.CN_ITS ---
Consult Note: HPI Data of Consult Patient: known to practice within the last 3 years Consult date: 11/28/23 Requesting Physician: Concha Lopez NP Primary Care Provider: KELLY MCKEON Consult Narrative Reason for consult: back pain Narrative: 78yof who presents for assessment. notes low back pain that is higher than where her previous ablation was. notes significant relief >80% with rfa at bilateral l4-5, l5-s1. now points to pain slightly higher. imaging reviewed, which shows multilevel facet arthropathy in thoracic and lumbar spine. has continued to engage in a series of provider directed home exercises >6 weeks, without lasting benefit. uses otc pain meds as needed and tylenol #3 BID PRN. denies adverse med side effects. patient recently underwent bilateral T10-11 T11-12 MBB #1 with >80% improvement in pain and functional improvement immediately following and hours after, preop pain up to 9/10 with activity and after procedure 2/10. was able to stand, walk, make pie, do dishes, sweep floors with very minor pain. She reports she cannot do these activities on a normal day. cc:: CC: Concha Lopez NP Review of Systems ROS Status of ROS 10 or more systems reviewed and unremark able except as noted in history and below Musculoskeletal Reports: back pain PFSH PFSH Medical History Osteoarthritis ?M19.90 - Unspecified osteoarthritis, unspecified site (ICD-10) Heart murmur ?R01.1 - Cardiac murmur, unspecified (ICD-10) Surgical History History of total shoulder replacement ?Z96.619 - Presence of unspecified artificial shoulder joint (ICD-10) History of total knee arthroplasty ?Z96.659 - Presence of unspecified artificial knee joint (ICD-10) History of carpal tunnel release ?Z98.890 - Other specified postprocedural states (ICD-10) Meds Home Medications and Allergies Home Medications ?Medication ?Instructions ?Recorded ?Confirmed ?Type calcium 600 mg (as 1 tab PO BID 07/11/23 01/09/24 History carbonate)-vitamin D3 5 mcg (200 unit) tablet (Calcium 600 + D(3)) losartan 100 mg tablet 100 mg PO DAILY 07/11/23 01/09/24 History magnesium 250 mg tablet 250 mg PO DAILY 07/11/23 01/09/24 History multivitamin-ferrous 1 tab PO DAILY 07/11/23 01/09/24 History fumarate-folic acid 18 mg-400 mcg tablet (Centrum Women) trazodone 50 mg tablet 50 mg PO DAILY 07/11/23 01/09/24 History vitamin B complex 1 cap PO DAILY 07/11/23 01/09/24 History fluticasone 250 mcg-salmeterol 50 inhalation 08/22/23 History mcg/dose blistr powdr for inhalation acetaminophen 300 mg-codeine 30 mg 1 tab PO BID PRN pain #60 tabs 11/28/23 01/09/24 Rx tablet Allergies Allergy/AdvReac Type Severity Reaction Status Date / Time No Known Drug Allergies Allergy Verified 01/09/24 07:45 Exam Constitutional Documenting provider has reviewed patient's vital signs: yes Common normals: no apparent distress, oriented x3, healthy appearing, alert and well nourished General appearance: cooperative HENMT Common normals: normocephalic, hearing grossly normal bilaterally and moist oral mucous membranes Head and scalp: normocephalic Eye Common normals: PERRL Pupil: PERRL Neck & C-Spine Common normals: full ROM General: normal visual inspection Chest Common normals: inspection of chest normal Respiratory Common normals: normal respiratory effort, no retractions and no use of accessory muscles Back & Pelvis Thoracic spine/upper back: ROM limited, pain with ROM and thoracic spinal tenderness; no paraspinal muscle spasm Lumbar spine/lower back: ROM limited, pain with ROM and lumbar spinal tenderness; no paraspinal muscle spasm Other: positive facet loading tenderness over T10-L2 facets no radiculopathy on exam strength 5/5 in BLE Neuro Common normals: oriented x3, CN's II-XII intact bilaterally, moves all extremities, no focal motor deficits, no sensory deficits noted and deep tendon reflexes 2+ bilaterally Sensorium/orientation: alert Motor exam: strength 5/5 throughout and no movement abnormalities noted Psych Common normals: mental status grossly normal, thought process normal, cooperative, affect normal, speech normal and activity/motor behavior normal Speech: normal speech Thought process: normal thought process Results Additional Findings Additional findings: If on a controlled substance or opioids, I have checked an [place]AR[place] report on this patient and there are no aberrancies noted in the prescribing history.??If on a controlled substance or opioid a drug screen was completed and reviewed within the last year, and if there has not been a drug screen completed we ordered one today to monitor higher risk, state monitored pain medication use. As part of providing excellent, safe, comprehensive care, the following was completed at our patient's visit: 1. A medication reconciliation and review to ensure accurate knowledge of current/active medications, including asking our patients to inform us about any domr-yqu-rtyuzvt medications or herbal remedies/nutritional supplements/alternative remedies. 2. A review to specifically ensure our patients have had annual screening for screening for depression, screening for tobacco use, and screening for unhealthy alcohol use. For concerning screenings had a discussion with the patient, provided patient education, and recommended follow-up with primary care provider when appropriate. If patient noted with a risk of falling, they received education on strength, gait, and balance training to prevent future risk of falling. Assessment and Plan Assessment and Plan (1) Thoracic back pain: (2) Thoracic spondylosis: (3) Lumbar spondylosis: (4) Chronic use of opiate drug for therapeutic purpose: Assessment and Plan: I feel these medications are improving the patient's quality of life and allow them to tolerate activities of daily living as well as participate in recreational activity.? The patient does not report intolerable side effects. The patient is NOT opioid naive and non-pharmacologic and non-opioid treatment has failed to significantly relieve the patient's pain and improve functi onality. The patient has a diagnosis that is related to a somatic or visceral pain etiology. ? ?? I reviewed with the patient the potential risks and side effects with the use of? opioid medications including but not limited to respiratory depression,? sedation, and even . I verified the patient has access to naloxone should? these effects occur. I advised the patient to avoid the use of any other? sedation substances including alcohol, THC, and benzodiazepines while? taking opioid medications due to the risk of compounding side effects and? detrimental outcomes. I reviewed the EDUCATIONAL PROGRAM DIRECTOR, pain treatment agreement, urine? drug screen, and opioid start talking forms. The patient was advised to let? their family know they had Naloxone in case they would need to administer? the medication.? ?? A drug screen was completed within the last year, and no aberrancies were noted regarding their use of controlled substances. The patient understands they are subject to the terms and conditions of the pain contract that they have signed. ? ?? I have checked an OARRS report on this patient today and there are no aberrancies noted in the prescribing history.? (5) Osteoarthritis: Plan bilateral T10-11 T11-12 MBB x2 working towards RFA continue current medications, reporting significant improvement in pain and functional ability with tylenol #3 BID PRN update UDS today f/u after each injection
== END 2024-01-11 08:28 | disposition home or self-care (01) ==
LOC: PM 08:28
PROVIDERS: PCP Family Medicine; Visit Provider Nurse Practitioner
DX: M54.6 Pain in thoracic spine (principal); M47.814 Spondylosis without myelopathy or radiculopathy, thoracic region; M47.816 Spondylosis without myelopathy or radiculopathy, lumbar region; Z79.891 Long term (current) use of opiate analgesic; M19.90 Unspecified osteoarthritis, unspecified site
CPT/HCPCS: G0463

== ENCOUNTER 2024-01-23 08:56 | Day surgery (SDC) | payer MEDICARE, SELFPAY ==
[2024-01-23 09:12] VITALS: BP 124/65; PULSE 75; TEMP 36.9; O2SAT 93
[2024-01-23 09:56] VITALS: BP 154/67; PULSE 72; O2SAT 94
[2024-01-23 09:59] VITALS: BP 141/64; PULSE 73; O2SAT 96
--- NOTE | 2024-01-23 10:00 | W.PM.PROCNOT ---
Date of procedure: 01/23/24 Pre-op diagnosis: Pain due to thoracic spondylosis without myelopathy Post-op diagnosis: same as pre-op Procedure: Procedure: Bilateral T10-11, 11-12 medial branch block Medications: Bupivacaine 0.25% 6cc The patient was seen and examined in the preoperative holding area.? An informed consent was obtained and placed on the chart.? The patient was brought to the medical procedure unit and placed in the prone position.? A timeout was completed verifying correct patient, procedure site, positioning, plan, and special equipment.? Using aseptic technique, the needle was placed at left T10. Under direct fluoroscopic visualization a Quincke-tipped spinal needle was advanced to the junction of the superior articulating process with the transverse process at the designated medial branch segment.? Preceded by negative aspiration, the above-mentioned injectate was placed in 1 mL aliquots.? The procedure was repeated at left T11, 12.? The needle was removed and insertion site was covered. The same procedure, at the same levels, was completed on the right side. The patient was taken to the postprocedural recovery area and monitored for an appropriate length of time before found suitable for discharge in the company of a responsible adult. Anesthesia: Local Surgeon: Kei Espana Pathology: none sent Condition: stable Disposition: no change
[2024-01-23] MEDS: LIDOCAINE HCL 2% 400 MG/20 ML MDV 3 ML INJ (10:01)
[2024-01-23] MEDS: BUPIVACAINE HCL 0.25% PF 25 MG/10 ML VIAL 6 ML INJ (10:01)
== END 2024-01-23 10:03 | disposition home or self-care (01) ==
LOC: SURGOUT 08:57
PROVIDERS: PCP Family Medicine; Visit Provider Anesthesiology
DX: M47.814 Spondylosis without myelopathy or radiculopathy, thoracic region (principal)
CPT/HCPCS: 64490; 64491; J0665

== ENCOUNTER 2024-01-25 07:55 | Outpatient (OUT) | payer MEDICARE, SELFPAY ==
--- OUTSIDE RECORDS SUMMARY | 2024-01-25 08:08 | XMS_ITS | CCD ---
Author Organization [facility] Care Team Providers Care Cna Instructor Name Role Phone PHYSICIAN, DEFAULT Admitting Unavailable [...] able Marisa Ramos Attending Unavail able Alessandra LEGAL EDITOR, Alexander Plascencia Unavailable Shari Mckeon MD Primary Care Provider ALEXANDER APARICIO Referring Unavailab le SHARI MCKEON Primary Care Unavailable ALEXANDER APARICIO Attending Unavail SHARI Carvalho Attending Unavailable SHARI MCKEON Referring Unavailable PATRICIA, MARISA Plascencia Attending Unavailable PATRICIA, MARISA Plascencia Referring Unavailable GUERNSEY, MARISA Plascencia Attending Unavailable GUERNSEY, MARISA Plascencia Attending Unavailable GUERNSEY, MARISA Plascencia Referring Unavailable GUERNSEY, MARISA Plascencia Attending Unavailable [facility], ALEXANDER Plascencia Attending Unavailab darinel APARICIO, ALEXANDER Plascencia Attending Unavailab darinel APARICIO, ALEXANDER Plascencia Referring Unavail SHARI Carvalho Referring Unavailable Giedraitis , Andrius Snehal Attending Unavailable Giedraitis MD, Andrius Vytautas Attending Unavailable Giedraitis MD, Andrius Vytautas Attending Unavailable Giedraitis MD, Andrius Vytautas Attending Unavailable Giedraitis MD, Andrius Vytautas Attending Unavailable Giedraitis MD, Andrius Vytautas Attending Unavailable Giedraitis MD, Andrius Vytautas Attending Unavailable Allergies Allergy Classification Reported Allergen(s) Allergy Type Date of Onset Reaction(s) Facility (2 sources) Alendronate; Translations: [Fosamax] Drug Allergy [facility] Repository (5 sources) Alendronate Drug Allergy 09-10-2020 [...] Start: 04-11-2023 take 1 tablet by abhinav once daily atorvastatin (Lipitor) 20 MG tablet [...] 06-17-2023 06-17-2023 Other aftercare (1 source) Other group home (current) drug therapy; Translations: [OTH ORACLE HRMS CONSULTANT CURRENT DRUG THERAPY] Onset: 02-14-2020 Episodic Other aftercare (1 source) [facility] (current) use of aspirin; Translations: [LONG-TERM CURRENT [...] Facility BI MAMMOGRAM SCREENING TOMOS YNTHESIS BILATERALon 12-28-2023 BI MAMMOGRAM SCREENING TOMOSYNTHESIS BILATERAL This is [...] Not Available Consent Formson 07-27-2022 Consent Forms [id number] Inst[facility] Discharge Instructions [id number]#[id number] MAGR Intraoperative Recordon 07-27-2022 MAGR Intraoperative Record MAGR Intra-Op Record Summary Primary Physician: Marisa Ramos DO Finalized Date/Time: 07/27/22 09:45:04 Pt. Name: RADHA CUADRA BRAD /Sex: 1945 FEMALE Med Rec #: [id number] Physician: Marisa Ramos DO Financial #: [id number] Pt. Type: D Room/Bed: / Admit/Disch: 07/26/22 [...] Role Performed Surgeon - Primary Anesthesiologist of [employer] Leak Tester Record Time In 07/26/22 07:39:00 07/26/22 07:39:00 07/26/22 07:39:00 Time Out 07/26/22 09:49:00 07/26/22 09:49:00 07/26/22 09:49:00 Procedure Arthroplasty Shoulder Arthroplasty Shoulder Arthroplasty Shoulder Total Reverse(Left) Total Reverse(Left) Total Reverse(Left) Last Modified By: Mode GOLDMAN, Jania Coello RN, Jania Conde RN 07/26/22 09:49:54 07/26/22 09:49:54 07/26/22 09:49:54 Entry 4 Entry 5 Entry 6 Case Attendee Fahad AVIATION SAFETY TECHNICIAN, Lisa Martinez CST, CST, CST/CSFAZOE AVIATION SAFETY TECHNICIAN Role Performed Scrub Personnel Scrub Personnel [employer] Dean Time In 07/26/22 07:39:00 07/26/22 07:39:00 07/26/22 [...] to chemical sources (more content not included)... [facility] Outside Recordson 07-27-2022 Outside Records [id number]#[id number] [facility] Provider Orderson 07-27-2022 Provider Orders [id number]#[id number] [facility] Telemetry Stripson Telemetry Strips [id number]#1.00OTGTIFF [facility] Anesthesia Noteon 07-26-2022 Anesthesia Note [...] 07/26/2022 11:51 EDT] Remy Da Silva MD [facility] Anesthesia Note Patient: RADHA CUADRA Age: 77 [...] obstructive pulmonary disease (COPD) / SNOMED CT 87629852 / Confirmed Heart murmur / SNOMED CT 172171547 / Confirmed Hyperlipidemia / SNOMED CT 42740096 / Confirmed HTN (hypertension) / SNOMED CT 8511660275 / Confirmed Histories Family History: COPD Mother Father Procedure history: Arthroplasty of left knee (0592236975). Arthroplasty of right knee (1738868702). Carpal tunnel release (044769779). Comments: 06/29/2022 13:15 Dorota De Leon RN bilat Colonoscopy (155322754). EGD - Esophagogastroduodenoscopy (8091186068). Disorder of rotator cuff (8023050154). Comments: 06/29/2022 13:14 Dorota De Leon RN [...] Oriented. Review / Management Laboratory Results Plan [place] [employer] Anesthesiologists#(ASA) physical status classification: Class [...] 07/26/2022 08:23 EDT] Remy Da Silva MD [facility] Inpatient Patient Summaryon 07-26-2022 [place] [address] Patient Discharge Instructions Name: RADHA CUADRA : 1945 Patient Address: [address] [place] [address] Primary Care Provider: Name: SHARI MCKEON After you are discharged if you find you have any questions, please, call [phone] ext [phone] to speak to a nurse. Discharge Diagnosis: [...] alcohol and/or drug addiction problems; contact the [facility] Recovery [facility] 04/10 Crisis Hotline -Text 4HOPE ah 383505. If you received any narcotics, sedation, or [...] business decisions or sign any legal documents [facility] would like to thank you for allowing us to assist you with your healthcare needs. The following includes patient education materials and information regarding your injury/illness. RADHA CUADRA has been given the following list of follow-up instructions, prescriptions, and patient education materials: Follow-up Instructions With: Address: When: Marisa Ramos [address] [place] [address], [address] [place] [id number] Business (1) 08/03/2022 11:00 AM Medications During [...] fingers frequently (more content not included)... [facility] MAGR Intraoperative Record MAGR Intra-Op Record Summary Primary Physician: Finalized Date/Time: 07/26/22 07:42:32 Pt. Name: RADHA CUADRA/Sex: 1945 FEMALE Med Rec #: [id number] Physician: Marisa Ramos DO Financial #: [id number] Pt. Type: D Room/Bed: / Admit/Disch: 07/26/22 [...] Warga, Laura RN Role Performed Anesthesiologist of [employer] Leak Tester [employer] Leak Tester Record Time In 07/26/22 07:13:00 07/26/22 07:13:00 07/26/22 07:13:00 Time Out 07/26/22 07:38:00 07/26/22 07:38:00 07/26/22 07:38:00 Procedure Interscalene Block(Left) Interscalene Block(Left) Interscalene Block(Left) Last Modified By: Kimberley Le RN, Margaret RN Klaehn, Margaret RN 07/26/22 07:39:31 07/26/22 07:39:31 07/26/22 07:39:31 Entry 4 Case Attendee Amy Bates RN Role Performed [employer] Leak Tester Time In 07/26/22 07:13:00 Time Out 07/26/22 [...] Stretcher Post-op Destinat (more content not included)... [facility] MAGR PACU Recordon 3 MAGR PACU Record MAGR PACU Record [facility] Primary Physician: Marisa Ramos DO Finalized Date/Time: 07/26/22 10:38:28 Pt. Name: RADHA CUADRA/Sex: 1945 FEMALE Med Rec #: [id number] Physician: Marisa Ramos DO Financial #: [id number] Pt. Type: D Room/Bed: / Admit/Disch: 07/26/22 05:52:10 - Institution: PACU Case Times MAGR Entry 1 In PACU I 07/26/22 09:51:00 Discharge from PACU 07/26/22 10:35:00 I Last Modified By: Warner Bolton RN 07/26/22 10:38:23 Finalized By: Warner Bolton RN Document Signatures Signed By: Warner Bolton RN 07/26/22 10:38 [facility] MAGR Postoperative Recordon 07-26-2022 MAGR Postoperative Record MAGR Phase II Record Summary Primary Physician: Marisa Ramos DO Finalized Date/Time: 07/26/22 12:01:17 Pt. Name: RADHA CUADRA/Sex: 1945 FEMALE Med Rec #: [id number] Physician: Marisa Ramos DO Financial #: [id number] Pt. Type: D Room/Bed: / Admit/Disch: 07/26/22 [...] Signed By: Annamarie Samuels RN 07/26/22 12:01 [facility]22 [facility] Preoperative Record MAGR Pre-Op Record Summary Primary Physician: Marisa Ramos DO Finalized Date/Time: 07/26/22 07:44:03 Pt. Name: RADHA CUADRA BRAD Duque./Sex: 1945 FEMALE Med Rec #: [id number] Physician: Marisa Ramos DO Financial #: [id number] Pt. Type: D Room/Bed: / Admit/Disch: 07/26/22 [...] By: Kimberley Le RN 07/26/22 07:44 [facility] Operative Report - Surgeon/P pablo 07-26-2022 [...] Estimated blood loss: 50 Complications: None Findings: Ihyw-xw-gjyd in the glenohumeral joint Procedure summary: Patient [...] on: 07/26/2022 09:35 EDT] Marisa Ramos DO [facility] Patient Handouton 07-26-[address] MESSINA [...] or concerns, please call the office at [phone] 7. Follow up as scheduled [facility] XR Shoulder 1 View Lefton XR Shoulder [...] MD 07/27/22 4:01 pm Technologist: JORDON RUVALCABA [facility] Comment on above: Order Comment: chey lt status post shoulder replacement Progress Note - Nurseon 07-12 Progress Note - Nurse Pre-op call made to pt. Pt states understanding of arrival time of 0600 on 07/26/22 and NPO after MN. [Electronically Signed on: 07/23/2022 09:27 EDT] Shantel Gonsalez RN [Verified on: 07/23/2022 09:27 EDT] Shantel Gonsalez RN [facility] Coding Summaryon 07-02-2022 Coding Summary HTMLBase 64 ZmkkoworUZq5xAd+PGhlYWQ+PE1F AJPuH93vuMGtyK7ND8dAKT6TFQAI LTSLXS4TVQ2tnTU2WZfeK9RpwcTf CqzxpYIzPH89TDf4PBN9aUliPFbo bG0koSQwE2q0HrZzPC06yN47RXbr QAJrHhE8AgOiwshwlZDk R7buYfFfuSBsLxs+PHRhYmxlIHdp ZXHzYKcnPQMjQfRufSkqBO6zEc4b ZGVyLWNvbGxhcHNlOiBj f3vgOUFlWKkaVA1qiYheB6UyqJO8 DRTqe5o8Ia20eYA+BNLpNJZ6sBrh ZTwik992ToEov1orCOB9 zEXiCRsjJTB3E88ip2J2ZFDvVIUj JPD4iVJ6lW3srWlgsykcE3YbqAZy PmA5HOB7pANqlH0brAax fmeldJ0gVlf+N10OEV4QQMPJLV2N Spk9O4TgLcobxYD+RS73UHHdWL20 lUGtvUQvx4hqgWd0ZfDm CEEaVPE3yXehNYrca3CrQBSnZ98y zUYdf8A6SDGqxLxpcWGeFsVgbAB8 pD2fJUbnhcszo2dkhjef Miill6neho06eS80L54lDBfxGPJh SQU2QBRfUNEmnEjhus3viX5mVf4+ ODprr0meq7arjLc8EpDw JLFzvyDtnKacSTB9t7BoZp17S1El gSekq6BjFqx5gw46xYFjv3Q3iBP0 WMitXXHmtA9oOZzdMzW2 KFImPyPzzI66eUNdMBwgPd2dsAyl lVkqNS6oUFHzowqdMLQugD0tQZPv dQJsbMvoHG7rQYDjrzrk d825TfBpZGG9PWKcxQKuW2BatG0n FkWkXGSxTPMnJ5HfsVXyGZbzS820 BWclWoC6HKXcxbRvS8Tn BECmkKhcMaM3u3W1Hk1Ry8Ziltzl GJU4RAavWTH1VwBqLhMnToD9K0Oi Ziz0TIBzySooCZ8fC3Lu FXPydgvdgvpcsFQ6UJByIVGboH17 zCHvJLpgEn1ll5B7d189PEEnARHb nP34Ar7ahOfuHIHfyDMS pG9nkmtqr9ucjqexOtFiLQJiNUc8 TPx1UXUwdJxwBuCwMWI7HbT3MBO6 hVRisY3rtCoezdzlyB5b Oyc+X41imR3eJYE5OGM9frefKIJf elAaSJ55YQ89U5FaDybinYKauHD+ RWYrbdArdPjeCA9sNzGa e0fem6LhWKvyG1XoMRNqVXctXdy1 VRUzYNZ1vPN0dA3kDNRoCHnhh6W8 zZI0A6FmojAblf8of3do MHNlPSogA23mtTHrl3C4BDGezDU9 JKScvNgrLoLqdZ23Irl+PGNvbGdy s8VhTjlgv1vvd9ydoSb4 FbToLHQiqaLidBrrYRQ6l7TqPw32 O02uIKtvYVOeJTIiFDRlJWWvbWjv yi6rrB3hCd9+PGNvbCB3 lCN0nF3qABWtRrG3QCzwG159JaIj gYRqYyynw4dlx3bfbRn5KiHtVSCv nyLthPvuEKC1c0WlNp85 P27hHDprSMFuNSXhLXPnJZBzcAxq ab8neH4hGj8+XM4pu0kjgr48lS71 dHI+YCZiTUN9dXhdIBba ICHdiI0vXEusDlR1OWEdRfTxaB84 aLMhOHztFw8tdEjhjCosKH4yCHZz clrmn814OtKnj2efDDAu tXLaQFfgWTJ1L34jb1V6DNSaJEDk CAV4eQI0xE9bfRdemdbngFPheNlc lwAxnAhfWFbbFFqwY965 IHRvcDsnPlBhdGllbnQgTmFtZTo8 Y5XiUqi9XHUclKreFK5xkLTwAMlx Fv7ueGxidPxeSB0yYJOe jhllf090NxItx8qjYFUguHNgMFgh GDE8E12dk6Y4ABKsCNFpDNJ0rCY7 kT3cvXzmpydqiGBmyYsq guRgrQypGCknMOimI896SOEypDkf HdNulbNyBWRyjXI2QK73NU70dRZa q8R5zMV5J1UvVXNfcief pviziFZ7SVIcMPGebA92Xh0rlBmk Kw0fSATaODO4COGuoZGuY9LvyK9y LxSaGPZbEEPbR2PgnRHe CNpyF117UZflJgA7TORhogBbP3Xh XQMvoQvuRiT0i9Y3Mk4HQ5W6XC58 AY81qSSxw6H7uTS5Q0Pb ASSewlfcmwounNK5JZXkVSAniF72 Kp8lwXjvTw3fBOFcATJ0BWOdnBWr C6YmhG9fMnLlYBOzZYPs S5ZwaSJeWXybW831SDguJyY7JBIf ayDdT7YkIYMriXgeCuV7z4F6Bc6C FAk6AI23IW37wCStb2S9 tAA7U8BlKDKsverukdobyGO5IWMm OXZfnA02Rm9iaFtvYv7aMNPrZJK0 KILkdFRgH7MvcD6dUaDv PBCuTZSnD2AjvGJiERtaC416UPod QvJ2BJZshrXaL5OrTGWpjXsdGwP1 d3F9Dn7MJNHsFI63ZIL9 fNR6XI08IB41C8VlFgnnlPOamNT+ PHRhYmxlIHdpZHRoPScxMDAlJyBz hRixTO4vLu6yGMGxCJCk uEbqfGRbJrNzs3xeKVLkWZdjUA1s eHhxG7FnlLX3XOIwf7s6Fw77H90m C9CckPA+KLFtsKR9aJB4 mR3fIbXjKkG2MVzwL334HeOpnNYd Iucfo7vew0xgsHx8MgI7XXVpvjZc xFpcENI9h2VhGf86W25f XRjnMJDxLWShCZQaKTBipGoevf6m rN7mSk5+YJJkmHD3qTA6jT4iKvRc OzS2ZJlwQ163BsHnkUWw Rqzny5qdk3awaCm6RqPmWOMwpbCj mVbcSBK9m9VaWr53A0DnyJipm6Mk Ciy8mk86iGWom3V2lJM6 B6KfRFCrrtkzgAIjcLmwWC7oCLLj lcdsNBIfrD1fKVUiX2z1XcEdNdQ9 SEgvS6EulxI9ZVDxoJPp OOzgKUI1D58yk5M5HUQsBOHbDJN7 dXD9xP4pqIvmshiddKXvzZokldWj mYbnOBhyYTfyW378VWBu cKcbOINyjE7oLVHqdPVhjGhhLC6z RKQcilhvYeyNVKLfUJpEWFyqWH4W NPw2R5EvYoi7BNZgkDqe IU5usVFgQBjwZr5utFdddUqxKR1l KWUhrvquKDIxhR7mFEIujJTfbJpm YA7oBQUthfppj129VeYl KCR8UMPuyIQvF6GcnS1fXpTaEGOg WQLmP1IuhQXdSPksE754TPliSxT5 BKTplbTiM2PyWZNwnVlh LhX8a5L8Be2dLl8kNy2bPGX5FH79 VY37lJTfp0L6dME3Z8JiAVLjkuud mghcmMR9MZPwJEKabY77 fMApNOkaQj9ds8Q7n100TIQqBMRh hW27Nm5sgKipCJSzcVZNbL7csrrz w5espasaZlXdQYLhREf7 NHi2WGUwmFjrMqBuGZC4OkJ8HYY8 vGMjoL4rbNgtfqdjqG5lMws+Nzgg GMFfhgT9W3WeCab9BQVf rVmrCT9xnITkLIbdNs1reHifnLas DN4yVNJzdxvlBHUagG2fSEJjxFFc hOpwPB3pLSYjnwcil543 GhEaBWP4DGCsgZWxQ0BucE1hQbVm QHZgAEBeU0LheSDjIUcoN976BEuw ZbW8SWWzavXbT7WnATDx cJyhTxA2e2X6Zi4RRY4BDXG6U0Ay Bqs6ANSwaCafXC7dwLVqCVnsQo0y mZhjuPkaJD8eXXIfbuoz ILIkkS8rLUCkvKUbsGaxOI3oYFAq gidmg331XpKmTTU0AVRzsCOmZ2Zs bU3aUhAlRFGuLIKkW8Qr xKOiZIdzK225EIzrVeK9VCTunuWn O0BgJBUjqFyzYtK5r0V4Pc0YDJwb dGQ+WJ51np91Z6RnNyxd Srl3MCUyJDI7sGR9gV5kZPCsWScc v8L0kTJ7M1CuxaDorr4ad3miAENr RLzrM03hiRGyy9V4SSBr oYO2SGHnfOxxLyEwpC52Xgk+PGNv sIurv0IxZqdgc5ghw9xvvHv0NmXn RTDohjElrVecXVC9p9Hv Rg45G73eYMisRWRbPSOuYMNrXVDc aRjxms1xyX9yBj7+AQEccPB3oVO6 uY1nSvYsTcT4PUqgH030 KhBwoPFuCidsv1wpc6tmaSz1UnCv KFUlhpCniKvcIDL6i0NuJw62C8Ap rMkyy5GlVne3uz70cUUo d6N8jSU0H7MmTEHwenvbqXOgyVak SA6gOWSperrgXDXxvM2fTAOjT1w4 RtNoGjJ0QGrbD9UgsnV8 GSNrvXHpZCEhwBGWqM1jdwdmc2sw xoedVfCcTLFiLMv0FTf4CPColQct CyOmINR0DgI6LIR7cAIn pO3yzBaljurklO7yHsv+XYv4v9du eRRhGN9gyEC4MR59YN40wHTqs2T9 nKT9V2KzTSZsnuovdomz dGA8HSGnOWWrcL88Ke1caPaoXj1l QUGeJKM2GPHvqDEeD1BmdS6tViCz MULaIVIbZ5TfpHRiMDqw W415ZQybUgW1KEGyirDjN5WlSSMz fPqrAiA0g1K6Ul5NBF25WC93AI29 oEAos8V4kTJ2H2HgUKXp nxnnjumpaBS6XDHcYCKowM99Tk5x qQwzCh9vINZoGNM1XNHxiYBjH7Wq sM5wIfJpDQEpBOFqP7Rq jNIaSLkaE801OBthRhN4YUVxwwDd P2PtEVLasLyeWmT2a5Q6Bd0KJh16 EV38UY07qORjg9A3iUZ6 W9IuQQWkjpvsasanuHD8YHJlHJKd kQ48Mv5esHqpGh3xYIFzXMG8HFWk aZPoM5MluG7wHcPkZJXj JRXdV3ExbJCaSFuwT598PVwcPuR2 VNSyzdGiG3BdDCSdfLhlJlB2q9M2 Mx5NTWcdiei4C2QvStmx dHI+MC23ZLQtRY32uXPlsLBse2ic xZu2GbAwBKTaKKJ3aSsxZPcqt7Zi ZBNoM74iwTYra7E0MEGs bGx (more content not included)... [facility] C MRSA Screenon 06-30-2022 C MRSA Screen Negative [facility] Comment on above: Performed By: #### 1 [id number] ####[facility] (DEFAULT)[address] [place] [address] 97570 Progress Note - Nurseon 06-12 Progress Note - Nurse Dr. Castro reviewed PAT notes for upcoming surgery 07/26/2022. No new orders at this time [Electronically Signed on: 06/30/2022 11:45 EDT] Annamarie Samuels RN [Verified on: 06/30/2022 11:45 EDT] Annamarie Samuels RN [facility] Provider Orderson 06-30-2022 Provider Orders [id number] [facility] .Auto Diff 1on 06-29-2022 Auto [place] % 10 % Normal 12 [facility] Comment on above: Performed By: #### 7 [id number], [id number], [id number] ####[facility] (DEFAULT)[address] [place] [address] 69911 Baso Abs# 0.0 x10 Normal 0.0-0.2 [facility] Comment on above: Performed By: #### 7 [id number], [id number], [id number] ####[facility] (DEFAULT)[address] [place] [address] 66362 Basophils/100 WBC (Bld) 0.7 % Normal 0.2-2.0 [facility] Comment on above: Performed By: #### 7 [id number], [id number], [id number] ####[facility] (DEFAULT)[address] [place] [address] 07587 Eos Abs# 0.6 x10 High 0.0-0.4 [facility] Comment on above: Performed By: #### 7 [id number], [id number], [id number] ####[facility] (DEFAULT)[address] [place] [address] 20441 Eosinophils/100 WBC (Bld) 8.5 % High 0.9-4.0 [facility] Comment on above: Performed By: #### 7 [id number], [id number], [id number] ####[facility] (DEFAULT)[address] [place] [address] 85147 Lymph Abs# 1.6 x10 Normal 1.3-2.9 [facility] Comment on above: Performed By: #### 7 983324, [id number], [id number] ####[facility] (DEFAULT)[address] [place] [address] 42819 Lymphocytes/100 WBC (Bld) 24 % Normal 14-48 [facility] Comment on above: Performed By: #### 7 622915, [id number], [id number] ####[facility] (DEFAULT)[address] [place] [address] 24153 [place] Abs# 0.7 x10 Normal 0.0-0.8 [facility] Comment on above: Performed By: #### 7 572614, [id number], [id number] ####[facility] (DEFAULT)[address] [place] [address] 97761 Neut Abs# 3.8 x10 Normal 1.5-9.2 [facility] Comment on above: Performed By: #### 7 744302, [id number], [id number] ####[facility] (DEFAULT)[address] [place] [address] 70296 Neutrophils/100 WBC (Bld) 57 % Normal 44-88 [facility] Comment on above: Performed By: #### 7 674800, [id number], [id number] ####[facility] (DEFAULT)[address] [place] [address] BMP Standardon 06-29-2022 eGFR Non AA 33 mL/min/1.73m2 Invalid Interpretation Code [facility] Comment on above: Performed By: #### 7 [id number], [id number], [id number] ####[facility] (DEFAULT)[address] [place] [address] 23017 eGFR AA 40 mL/min/1.73m2 Invalid Interpretation Code [facility] Comment on above: Performed By: #### 7 144746, [id number], [id number] ####[facility] (DEFAULT)[address] [place] [address] 77993 Anion gap [Moles/Vol] 8.9 mmol/L Normal 5.0-19.0 [facility] Comment on above: Performed By: #### 7 680163, [id number], [id number] ####[facility] (DEFAULT)[address] [place] [address] 37942 Calcium [Mass/Vol] 9.3 mg/dL Normal 8.9-10.3 [facility] Comment on above: Performed By: #### 7 459749, [id number], [id number] ####[facility] (DEFAULT)[address] [place] [address] 17736 Chloride [Moles/Vol] 102 mmol/L Normal 101-111 [facility] Comment on above: Performed By: #### 7 600367, [id number], [id number] ####[facility] (DEFAULT)[address] [place] [address] 99577 CO2 [Moles/Vol] 28 mmol/L Normal 21-32 [facility] Comment on above: Performed By: #### 7 108035, [id number], [id number] ####[facility] (DEFAULT)[address] [place] [address] 81866 Creatinine [Mass/Vol] 1.53 mg/dL High 0.60-1.30 [facility] Comment on above: Performed By: #### 7 878884, [id number], [id number] ####[facility] (DEFAULT)[address] [place] [address] 03307 Glucose [Mass/Vol] 107.0 mg/dL Normal 74.0-118.0 [facility] Comment on above: Performed By: #### 7 471101, [id number], [id number] ####[facility] (DEFAULT)[address] [place] [address] 80527 Osmolality 279 mOsm/L Invalid Interpretation Code [facility] Comment on above: Performed By: #### 7 151091, [id number], [id number] ####[facility] (DEFAULT)[address] [place] [address] 80999 Potassium [Moles/Vol] 3.9 mmol/L Normal 3.6-5.1 [facility] Comment on above: Performed By: #### 7 [id number], [id number], [id number] ####[facility] (DEFAULT)[address] [place] [address] 42453 Sodium [Moles/Vol] 135.0 mmol/L Low 136.0-144 . 0 [facility] Comment on above: Performed By: #### 7 [id number], [id number], [id number] ####[facility] (DEFAULT)[address] [place] [address] 65525 Urea nitrogen [Mass/Vol] 36 mg/dL High 8-26 [facility] Comment on above: Performed By: #### 7 [id number], [id number], [id number] ####[facility] (DEFAULT)[address] [place] [address] 51734 Urea nitrogen/Creatinine [Mass ratio] 23.5 mg/mg High 4.6-16.2 [facility] Comment on above: Performed By: #### 7 [id number], [id number], [id number] ####[facility] (DEFAULT)[address] [place] [address] 07611 CBC w/ Auto Diffon 3 Erythrocyte distribution width (RBC) [Ratio] 12.8 % Normal 11.5-15.0 [facility] Comment on above: Performed By: #### 7 587076, [id number], [id number] ####[facility] (DEFAULT)[address] [place] [address] Hematocrit (Bld) [Volume fraction] 36.4 % Normal 33.7-40.4 [facility] Comment on above: Performed By: #### 7 [id number], [id number], [id number] ####[facility] (DEFAULT)[address] [place] [address] Hemoglobin (Bld) [Mass/Vol] 12.2 g/dL Normal 11.3-15.9 [facility] Comment on above: Performed By: #### 7 100553, [id number], [id number] ####[facility] (DEFAULT)[address] [place] [address] Man Diff? Auto Invalid Interpretation Code [facility] Comment on above: Performed By: #### 7 [id number], [id number], [id number] ####[facility] (DEFAULT)[address] [place] [address] MCH (RBC) [Entitic mass] 32 pg Normal 24-34 [facility] Comment on above: Performed By: #### 7 658288, [id number], [id number] ####[facility] (DEFAULT)[address] [place] [address] MCHC (RBC) [Mass/Vol] 33 g/dL Normal 26-37 [facility] Comment on above: Performed By: #### 7 105225, [id number], [id number] ####[facility] (DEFAULT)[address] [place] [address] MCV (RBC) [Entitic vol] 97 fL Normal 81-100 [facility] Comment on above: Performed By: #### 7 [id number], [id number], [id number] ####[facility] (DEFAULT)[address] [place] [address] Platelet 336 x10 Normal 138-427 [facility] Comment on above: Performed By: #### 7 752724, [id number], [id number] ####[facility] (DEFAULT)[address] [place] [address] Platelet mean volume (Bld) [Entitic vol] 7.2 fL Normal 6.3-10.2 [facility] Comment on above: Performed By: #### 7 180425, [id number], [id number] ####[facility] (DEFAULT)[address] [place] [address] 36485 RBC 3.77 x10 Normal 3.70-5.30 [facility] Comment on above: Performed By: #### 7 311861, [id number], [id number] ####[facility] (DEFAULT)[address] [place] [address] 21546 WBC 6.7 x10 Normal 3.5-10.5 [facility] Comment on above: Performed By: #### 7 339040, [id number], [id number] ####[facility] (DEFAULT)[address] [place] [address] UA w Culture if Ind Standard on 06-29-2022 Breakpoint UA Normal [facility] Comment on above: Performed By: #### 1 [id number] #### [facility] (DEFAULT) [address] [place] [address] Color (U) Yellow [facility] Comment on above: Performed By: #### 1 [id number] #### [facility] (DEFAULT) [address] [place] [address] Culture? Not Indicated Invalid Interpretation Code [facility] Comment on above: Result Comment: Resu lt created by rule GL_MAGR_ADD_UA_[id number] Performed By: #### 1 [id number] #### [facility] (DEFAULT) [address] [place] [address] Glucose (U) [Mass/Vol] Negative [facility] Comment on above: Performed By: #### 1 [id number] #### [facility] (DEFAULT) [address] [place] [address] Ketones Ql (U) Negative [facility] Comment on above: Performed By: #### 1 [id number] #### [facility] (DEFAULT) [address] [place] [address] Micro? Not Indicated Invalid Interpretation Code [facility] Comment on above: Result Comment: Resu lt created by rule GL_MAGR_ADD_UA_MICRO Performed By: #### 1 [id number] #### [facility] (DEFAULT) [address] [place] [address] UA Bilirubin Negative Normal [facility] Comment on above: Performed By: #### 1 [id number] #### [facility] (DEFAULT) [address] [place] [address] UA Blood Negative Normal NEGATIVE [facility] Comment on above: Performed By: #### 1 [id number] #### [facility] (DEFAULT) [address] [place] [id number] UA Clarity CLEAR Normal CLEAR [facility] Comment on above: Performed By: #### 1 [id number] #### [facility] (DEFAULT) [address] [place] [address] [id number] UA Leuk Est Negative Normal NEGATIVE [facility] Comment on above: Performed By: #### 1 [id number] #### [facility] (DEFAULT) [address] [place] [address] 11887 UA Nitrite Negative Normal NEGATIVE [facility] Comment on above: Performed By: #### 1 [id number] #### [facility] (DEFAULT) [address] [place] [address] 58067 UA pH 6.5 Normal 5-8 [facility] Comment on above: Performed By: #### 1 [id number] #### [facility] (DEFAULT) [address] [place] [address] [id number] UA Protein Negative Normal NEGATIVE [facility] Comment on above: Performed By: #### 1 [id number] #### [facility] (DEFAULT) [address] [place] [address] [id number] UA Spec Grav 1.010 Normal 1.001-1.[address] [place] [address] Comment on above: Performed By: #### 1 [id number] #### [facility] (DEFAULT) [address] [place] [address] 53487 UA Urobilinogen 0.2 mg/dL Normal 0.2-1.0 [facility] Comment on above: Performed By: #### 1 [id number] #### [facility] (DEFAULT) [address] [place] [address] Urine Source Clean Catch Normal [facility] Comment on above: Performed By: #### 1 [id number] #### [facility] (DEFAULT) [address] [place] [address] MRI Shoulder w/o Lefton 04-15 MRI Shoulder [...] by Adarsh Adams on 05/11/2022 1041 Normal [facility] SCREENING MAMMOGRAM W/ARABELLA, BILATERAL*on 11-20-2021 SCREENING [...] VERY IMPORTANT TO YOUR HEALTH. THE CURRENT [employer] GUIDELINES RECOMMENDS ANNUAL MAMMOGRAPHY BEGINNING AT AGE 39 THIS FACILITY USES A REMINDER SYSTEM TO ENSURE ALL PATIENTS RECEIVE REMINDER NOTIFICATIONS AT THE APPROPRIATE TIME BASED ON THE RECOMMENDATIONS OF THIS EXAM. Report reported and signed by Alejandro Foret on 11/20/2021 0949 Normal [facility] Comprehensive Metabolic Pane george 06-10-2021 Albumin [Mass/Vol] 4.2 g/dL Normal 3.6-5.1 Madyson goldman [place] [employer] Comment on above: Performed By: #### C JEWELS, LIPD #### [facility] [address] [place], [place] [id number] Albumin/Globulin [Mass ratio] 1.7 {ratio} Normal 1.0-2.5 [facility] Comment on above: Performed By: #### C JEWELS, LIPD #### [facility] [address] [place], [place] [id number] ALP [Catalytic activity/Vol] 82 U/L Normal 35-119 [facility] Comment on above: Performed By: #### C JEWELS, LIPD #### [facility] [address] [place], [place] [id number] ALT [Catalytic activity/Vol] 15 U/L Normal 6-33 [facility] Comment on above: Result Comment: 02/11 Female reference range changed. Performed By: #### C JEWELS, LIPD #### [facility] [address] [place], [place] [id number] Anion gap [Moles/Vol] 15 mmol/L Normal 12-20 [facility] Comment on above: Result Comment: Effe ctive 03/19/2019 reference range changed. Performed By: #### C JEWELS, LIPD #### [facility] [address] [place], [place] [id number] AST [Catalytic activity/Vol] 21 U/L Normal 9-34 [facility] Comment on above: Performed By: #### C MP, LIPD #### [facility] [address] [place], [place] [id number] BUN/CREA 28 Ratio High 6-22 [facility] [employer] Comment on above: Performed By: #### C MP, LIPD #### [facility] [address] [place], [place] [id number] Calcium [Mass/Vol] 9.3 mg/dL Normal 8.6-10.2 Madyson goldman [place] [employer] Comment on above: Performed By: #### C JARVIS DONIS #### [facility] [address] [place], [place] [id number] Chloride [Moles/Vol] 106 mmol/L Normal 98-107 [facility] Comment on above: Performed By: #### C JARVIS DONIS #### [facility] [address] [place], [place] [id number] CO2 [Moles/Vol] 24 mmol/L Normal 20-31 [facility] Comment on above: Performed By: #### C JARVIS DONIS #### [facility] [address] [place], [place] [id number] Creatinine [Mass/Vol] 1.1 mg/dL Normal 0.6-1.4 [facility] Comment on above: Performed By: #### C JARVIS DONIS #### [facility] [address] [place], [place] [id number] eGFRAA 58 mL/min/1.73m2 Low >60 [facility] Comment on above: Performed By: #### C JARVIS DONIS #### [facility] [address] [place], [place] [id number] eGFRNAA 48 mL/min/1.73m2 Low >60 [facility] Comment on above: Performed By: #### C JARVIS DONIS #### [facility] [address] [place], [place] [id number] Globulin (S) [Mass/Vol] 2.5 g/dL Normal 1.9-3.7 [facility] Comment on above: Performed By: #### C JARVIS DONIS #### [facility] [address] [place], [place] [id number] Glucose [Mass/Vol] 94 mg/dL Normal 65-99 [facility] Comment on above: Result Comment: For FASTING Glucose --- ADA reference ranges: Normal 65-99 mg/dl Prediabetes 100-125 Diabetes >/= 126 Performed By: #### C JARVIS DONIS #### [facility] [address] [place], [place] [id number] Potassium [Moles/Vol] 4.4 mmol/L Normal 3.5-5.5 [facility] Comment on above: Performed By: #### C MP, LIPD #### [facility] [address] [place], [place] [id number] Protein [Mass/Vol] 6.7 g/dL Normal 6.1-8.1 [facility] Specialist Comment on above: Performed By: #### C MP, LIPD #### [facility] [address] [place], [place] [id number] Sodium [Moles/Vol] 141 mmol/L Normal 135-146 [facility] Specialist Comment on above: Performed By: #### C MP, LIPD #### [facility] [address] [place], [place] [id number] TBIL <0.3 Normal [facility] Comment on above: Performed By: #### C MP, LIPD #### [facility] [address] [place], [place] [id number] Urea nitrogen [Mass/Vol] 32 mg/dL High 7-25 [facility] Special[facility] Comment on above: Performed By: #### C MP, LIPD #### [facility] [address] [place], [place] [id number] Lipid Panelon 06-10-2021 Cholesterol [Mass/Vol] 237 mg/dL High 125-200 [facility] Comment on above: Result Comment: Low risk < 200mg/dL Borderline risk 201-239 mg/dl High risk > or equal to 240 Performed By: #### C MP, LIPD #### [facility] [address] [place], [place] [id number] Cholesterol in HDL [Mass/Vol] 100 mg/dL Normal >40 [facility] Comment on above: Result Comment: High Cardiovascular Risk HDL <40 mg/dL Low Cardiovascular Risk HDL > or equal to 60 mg/dl Performed By: #### C MP, LIPD #### [facility] [address] [place], [place] [id number] Cholesterol in LDL [Mass/Vol] 124 mg/dL Normal [facility] Comment on above: Result Comment: LDL ATP III CLASSIFICATION LDL less than 100 mg/dl Optimal LDL 100-129 mg/dl Near or above optimal LDL 130-159 Borderline high LDL 160-189 High LDL greater than 189 mg/dl Very High Performed By: #### C MP, LIPD #### [facility] [address] [place], [place] [id number] Cholesterol in VLDL [Mass/Vol] 13 mg/dL Normal [facility] Comment on above: Performed By: #### C JEWELS, LIPD #### [facility] [address] [place], [place] [id number] Cholesterol.total/Ch olesterol in HDL [Mass ratio] 2 {ratio} Normal [facility] Comment on above: Performed By: #### C JEWELS, LIPD #### [facility] [address] [place], [place] [id number] Triglyceride [Mass/Vol] 67 mg/dL Normal 30-150 [facility] Comment on above: Result Comment: TRIG ATPIII CLASSIFICATIONS TRIG less than 150 mg/dl Normal TRIG 150-199 mg/dl Borderline High TRIG 200-500 mg/dl High TRIG greather than 500 mg/dl Very High Performed By: #### C JEWELS, LIPD #### [facility] [address] [place], [place] [id number] ECHOCARDIO M/2D COMPLETEon 0 10-24-2020 ECHOCARDIO M/2D COMPLETE Patient: RADHA CUADRA Exam Date: 10/24/2020 : 1945 Gender:F Ordering : DR SHARI MCKEON M.D. Admission #: [id number] Family : Order #: [id number] CLICK HERE TO VIEW EXAM ECHOCARDIOGRAM REPORT [...] Area(A4C): 13.90 cm2 Left Atrium Systolic Volume(A2C): 00383 mm3 Left Atrium Systolic Volume(A4C): 14991 mm3 Mitral Valve MV E to A Ratio: 1.10 Mitral Valve A-Wave Peak Velocity: 68.60 cm/s Mitral Valve E-Wave Peak Velocity: 74.50 cm/s Deceleration Time: 259 ms Right Ventricle Aorta AO Root Diam: 2.60 cm Aortic Valve Peak Velocity (Antegrade Flow): 161.00 cm/s, 230.00 cm/s AoV Area (Peak Daniel): 1.93 cm2 AoV Area (VTI): 1.90 cm2 Deceleration Donley: 1880 mm/s2 Pressure Half-Time: 528 ms Peak [...] M.D. on 10/24/2020 at 19:17 Normal [facility] HEMOGLOBINon 09-30-2020 Hemoglobin (Bld) [Mass/Vol] 12.3 g/dL Normal 12.0-16.0 [facility] Comment on above: Performed By: #### H GB #### [facility] [address] [address] Geraldo Gaitan H PYLORI TISSUEon 02-01-2020 H PYL TISSUE, UREASE Negative Normal NEGATIVE [facility] Comment on above: Performed By: #### H GB #### [facility] [address] [address] Geraldo Gaitan COVID-19 PCRon 01-27-2020 SARS-CoV-2 (COVID-19) RNA VIVIENNE+probe Ql (Unsp spec) Not detected Normal Not Detected [facility] Comment on above: Result Comment: This nucleic acid amplification test was developed and its performance characteristics determined by [facility]. Nucleic acid amplification tests include PCR and [...] Performed By: #### C VDSTAT, CVDPCR #### [facility] [address] [place] [address] Geraldo Gaitan PRIORITY COVID PROCESSINGon 01-27-2020 Comment Comment Normal [facility] Comment on above: Result Comment: Rece ived Performed By: #### C VDSTAT, CVDPCR #### [facility] [address] [place] [address] Geraldo Gaitan CULTURE BLOODon 01-08-2020 Microscopic examination [...] F Trimethoprim/Sulfamethoxazol e <=20 S F Normal [facility] Comment on above: Performed By: #### H GB #### [facility] [address] [place] [address] Geraldo Gaitan BLOOD CULTURE ID PANELon A. baumannii Not detected Normal [facility] Comment on above: Performed By: #### B MIRYAM #### [facility] [address] [place] [address] Geraldo Gaitan BCID CONTROLS PASSED Normal [facility] Comment on above: Performed By: #### B MIRYAM #### [facility] [address] [place] [address] Geraldo Gaitan BCIDBTHD BLOOD CULTURE BOTTLE INFORMATION Normal [facility] Comment on above: Performed By: #### B MIRYAM #### [facility] [address] [place] [address] Geraldo Gaitan BCIDHD1 ANTIMICROBIAL RESIST ANCE GENES Normal [facility] Comment on above: Performed By: #### B MIRYAM #### [facility] [address] [place] [address] Geraldo Kandy BCIDHD2 SEE BELOW [facility] Comment on above: Result Comment: KPC- carbapenem resistance gene, mecA- methecillin resistance gene, van A/B- vancomycin resistance gene Note: Antimicrobial resitance can occur via multiple mechanisms. A Not Detected result for the [employer] antomicrobial resistance gene assays does not indicate antimicrobial susceptibility. Subculturing is required for specis identificationand susceptibility testing of isolates. Performed By: #### B MIRYAM #### [facility] [address] [place] [address] Geraldo Kandy BCIDHD3 Positive [facility] Comment on above: Performed By: #### B MIRYAM #### [facility] [address] [place] [address] Geraldo Kandy BCIDHD3 Negative [facility] Comment on above: Performed By: #### B MIRYAM #### [facility] [address] [place] [address] Geraldo Kandy BCIDHD5 YEAST Normal [facility] Comment on above: Performed By: #### B MIRYAM #### [facility] [address] [place] [address] Geraldo Kandy BCIDHD6 SEE BELOW [facility] Comment on above: Result Comment: Note : All genus and species BCID [facility] results will be verified post subculturing via Maldi-Tof MS testing methodology. Performed By: #### B MIRYAM #### [facility] [address] [place] [address] Geraldo Kandy Bottle Set: Set 2 [facility] Comment on above: Performed By: #### B MIRYAM #### [facility] [address] [place] [address] Geraldo Kandy Bottle: Aerobic Normal [facility] Comment on above: Performed By: #### B MIRYAM #### [facility] [address] [place] [address] Geraldo Kandy Naomi albicans Not detected Normal [facility] Comment on above: Performed By: #### B MIRYAM #### [facility] [address] [place] [address] Geraldo Kandy Naomi glabrata Not detected Normal [facility] Comment on above: Performed By: #### B MIRYAM #### [facility] [address] [address] Geraldo Kandy Naomi Krusei Not detected Normal [facility] Comment on above: Performed By: #### B MIRYAM #### [facility] [address] [place] [address] Geraldo Kanyd Naomi Parapsilosis Not detected Normal [facility] Comment on above: Performed By: #### B MIRYAM #### [facility] [address] [place] [address] Geraldo Kandy Naomi Tropicalis Not detected Normal [facility] Comment on above: Performed By: #### B MIRYAM #### [facility] [address] [place] [address] Geraldo Kandy E. Cloacae complex Not detected Normal [facility] Comment on above: Performed By: #### B MIRYAM #### [facility] [address] [place] [address] Geraldo Kandy Enterobacteriaceae Detected Invalid Interpretation Code [facility] Comment on above: Performed By: #### B MIRYAM #### [facility] [address] [place] [address] Geraldo Kandy Enterococcus Not detected Normal [facility] Comment on above: Performed By: #### B MIRYAM #### [facility] [address] [place] [address] Geraldo Kandy Escheria coli Detected Normal [facility] Comment on above: Performed By: #### B MIRYAM #### [facility] [address] [place] [address] Geraldo Kandy K. oxytoca Not detected Normal [facility] Comment on above: Performed By: #### B MIRYAM #### [facility] [address] [place] [address] Geraldo Kandy K. pneumoniae Not detected Normal [facility] Comment on above: Performed By: #### B MIRYAM #### [facility] [address] [place] [address] Geraldo Kandy KPC Resistant Gene Not detected Normal [facility] Comment on above: Performed By: #### B MIRYAM #### [facility] [address] [place] [address] Geraldobhumi Gaitan List. monocytogenes Not detected Normal [facility] Comment on above: Performed By: #### B MIRYAM #### [facility] [address] [place] [address] Geraldo Gaitan mecA Resistant Gene Not detected Normal [facility] Comment on above: Performed By: #### B MIRYAM #### [facility] [address] [place] [address] Geraldo Kandy Proteus Not detected Normal [facility] Comment on above: Performed By: #### B MIRYAM #### [facility] [address] [place] [address] Geraldobhumi Charlesen Pseud. aeruginosa Not detected Normal [facility] Comment on above: Performed By: #### B MIRYAM #### [facility] [address] [place] [address] Geraldo Gaitan Seratia marcescens Not detected Normal [facility] Comment on above: Performed By: #### B MIRYAM #### [facility] [address] [place] [address] Geraldobhumi Gaitan Site: R AC Normal [facility] Comment on above: Performed By: #### B MIRYAM #### [facility] [address] [place] [address] Geraldobhumi Gaitan Staph. aureus Not detected Normal [facility] Comment on above: Performed By: #### B MIRYAM #### [facility] [address] [place] [address] Geraldo Kandy Staphylococcus Not detected Normal [facility] Comment on above: Performed By: #### B MIRYAM #### [facility] [address] [place] [address] Geraldo Kandy Strep. agalactiae Not detected Normal [facility] Comment on above: Performed By: #### B MIRYAM #### [facility] [address] [place] [address] Geraldo Kandy Strep. pneumoniae Not detected Normal [facility] Comment on above: Performed By: #### B MIRYAM #### [facility] [address] [place] [address] Geraldo Gaitan Strep. pyogenes Not detected Normal [facility] Comment on above: Performed By: #### B MIRYAM #### [facility] [address] [place] [address] Geraldo Gaitan Streptococcus Not detected Normal [facility] Comment on above: Performed By: #### B MIRYAM #### [facility] [address] [place] [address] Geraldo Gaitan Aicha/B Resist. Gene Not detected Normal [facility] Comment on above: Performed By: #### B MIRYAM #### [facility] [address] [place] [address] Geraldo Gaitan CBC AUTO DIFFon 01-02-2020 BASO # 0.0 103/ul Normal 0.0-0.1 [facility] Comment on above: Performed By: #### C BC #### [facility] [address] [place] [address] Geraldo Gaitan Basophils/100 WBC (Bld) 0.3 % Normal 0.2-2.0 [facility] Comment on above: Performed By: #### C BC #### [facility] [address] [place] [address] Geraldo Gaitan EO # 0.0 103/ul Normal 0.0-0.7 [facility] Comment on above: Performed By: #### C BC #### [facility] [address] [place] [address] Geraldo Gaitan Eosinophils/100 WBC (Bld) 0.3 % Critically low 0.9-7.0 [facility] Comment on above: Performed By: #### C BC #### [facility] [address] [place] [address] Geraldo Kandy Erythrocyte distribution width (RBC) [Ratio] 12.6 % Normal 11.0-15.0 [facility] Comment on above: Performed By: #### C BC #### [facility] [address] [place] [address] Geraldo Charlesen Hematocrit (Bld) [Volume fraction] 42.7 % Normal 36.0-48.0 [facility] Comment on above: Performed By: #### C BC #### [facility] [address] [place] [address] Geraldo Gaitan Hemoglobin (Bld) [Mass/Vol] 13.6 g/dL Normal 12.0-16.0 [facility] Comment on above: Performed By: #### C BC #### [facility] [address] [place] [address] Geraldobhumi Gaitan IG # 0.04 10e3/ul Critically high 0.00-0.03 [facility] Comment on above: Performed By: #### C BC #### [facility] [address] [place] [address] Geraldo Gaitan IG % 0.3 % Normal 0.0-0.5 [facility] Comment on above: Performed By: #### C BC #### [facility] [address] [place] [address] Geraldo Gaitan LYMPH # 0.5 103/ul Critically low 1.2-3.8 [facility] Comment on above: Performed By: #### C BC #### [facility] [address] [place] [address] Geraldo Gaitan Lymphocytes/100 WBC (Bld) 4.4 % Critically low 20.5-60.0 [facility] Comment on above: Performed By: #### C BC #### [facility] [address] [place] [address] Geraldo Gaitan MANUAL DIFF REQ NO Normal [facility] Comment on above: Performed By: #### C BC #### [facility] [address] [place] [address] Geraldo Gaitan MCH (RBC) [Entitic mass] 30.6 pg Normal 26.7-34.0 [facility] Comment on above: Performed By: #### C BC #### [facility] [address] [place] [address] Geraldo Gaitan MCHC (RBC) [Mass/Vol] 31.9 g/dL Normal 29.9-35.2 [facility] Comment on above: Performed By: #### C BC #### [facility] [address] [place], [place] [address] Geraldo Gaitan MCV (RBC) [Entitic vol] 96.0 fL Normal 81.0-99.0 [facility] Comment on above: Performed By: #### C BC #### [facility] [address] [id number] Geraldobhumi Gaitan MONO # 0.8 103/ul Normal 0.3-0.8 [facility] Comment on above: Performed By: #### C BC #### [facility] [address] [id number] Geraldo Gaitan Monocytes/100 WBC (Bld) 6.5 % Normal 1.7-12.0 [facility] Comment on above: Performed By: #### C BC #### [facility] [address] [id number] Geraldobhumi Charlesen NEUT # 10.1 103/ul Critically high 1.4-6.5 [facility] Comment on above: Performed By: #### C BC #### [facility] [address] [place], [place] [id number] Geraldo Gaitan Neutrophils/100 WBC (Bld) 88.2 % Critically high 43.0-75.0 [facility] Comment on above: Performed By: #### C BC #### [facility] [address] [id number] Geraldo Gaitan Platelet mean volume (Bld) [Entitic vol] 9.8 fL Normal 9.5-13.5 [facility] Comment on above: Performed By: #### C BC #### [facility] [address] [id number] Geraldo Kandy PLT 254 103/ul Normal 150-450 [facility] Comment on above: Performed By: #### C BC #### [facility] [address] [place], [place] [id number] Geraldo Kandy RBC 4.45 106/ul Normal 4.20-5.40 [facility] Comment on above: Performed By: #### C BC #### [facility] [address] [id number] [address] HEAD WO CONon 01-02-2020 [...] REMY NESS Date: 2020-01-02 19:00 Normal [facility] CULTURE BLOODon 01-02-2020 Microscopic examination of blood, culture Culture Observations: No growth at 5 days Normal [facility] Comment on above: Performed By: #### H SAKINA #### [facility] [address] [place], [place] [id number] Geraldo Gaitan CULTURE URINEon 01-02-2020 CULTURE URINE Culture Observations : Light growth of mixed genital eliezer.No potential pathogens seen. Normal [facility] Comment on above: Performed By: #### H GB #### [facility] [address] [place], [place] [id number] Geraldo Kandy ER URINE PROFILEon 0 Bilirubin Ql (U) Negative Normal NEGATIVE [facility] Comment on above: Performed By: #### MELODY CORDOVA #### [facility] [address] [place], [place] [id number] Geraldo Kandy Clarity (U) SL CLOUDY Normal [facility] Comment on above: Performed By: #### E MELODY SHAH #### [facility] [address] [place], [place] [address] Geraldo Kandy Color (U) LT. YELLOW Normal YELLOW [facility] Comment on above: Performed By: #### MELODY CORDOVA #### [facility] [address] [place], [place] [phone] Geraldo Kandy ERUAHD A micrscopic examina tion will be performed if indicated. Normal [facility] Comment on above: Performed By: #### MELODY CORDOVA #### [facility] [address] [place] [address] Geraldo Kandy Glucose Ql (U) Negative Normal NEGATIVE [facility] Comment on above: Performed By: #### MELODY CORDOVA #### [facility] [address] [place] [address] Geraldo Kandy Hemoglobin Ql (U) SMALL Normal NEGATIVE [facility] Comment on above: Performed By: #### MELODY CORDOVA #### [facility] [address] [place] [address] Geraldo Kandy Ketones Ql (U) Negative Normal NEGATIVE [facility] Comment on above: Performed By: #### MELODY CORDOVA #### [facility] [address] [place] [address] Geraldo Kandy LEUKOCYTES TRACE Normal NEGATIVE [facility] Comment on above: Performed By: #### MELODY CORDOVA #### [facility] [address] [place] [address] Gerlado Kandy Nitrite Ql (U) Negative Normal NEGATIVE [facility] Comment on above: Performed By: #### MELODY CORDOVA #### [facility] [address] [place] [address] Geraldo Kandy pH (U) 7.0 [pH] Normal 5-9 [facility] Comment on above: Performed By: #### MELODY CORDOVA #### [facility] [address] [place] [address] Geraldo Kandy Protein Ql (U) 30 mg/dl Normal [facility] Comment on above: Performed By: #### MELODY CORDOVA #### [facility] [address] [place] [address] Geraldo Kandy SPEC GRAVITY 1.015 Normal 1.005-<=1. 025 [facility] Comment on above: Performed By: #### MELODY CORDOVA #### [facility] [address] [place] [address] Geraldo Gaitan UR MICRO IND INDICATED Normal [facility] Comment on above: Performed By: #### MELODY CORDOVA #### [facility] [address] [place] [address] Geraldo Gaitan Urobilinogen Qn (U) 0.2 {Eileen'U}/dL Normal [facility] Comment on above: Performed By: #### MELODY CORDOVA #### [facility] [address] [place] [address] Gearldo Gaitan LACTATE/LACTIC ACIDon 2019 Lactate [Moles/Vol] 1.1 mmol/L Normal 0.7-2.0 [facility] Comment on above: Performed By: #### H GB #### [facility] [address] [place] [address] Geraldo Gaitan PROCALCITONINon 01-02-2020 PCT header 1 SEE BELOW Normal [facility] Comment on above: Result Comment: PCT <0.5ng/mL: Systemic infection (sepsis) is not likely, local bacterial infection possible, low risk for progression to severe systemic infection (severe sepsis) Performed By: #### P RL #### [facility] [address] [place] [address] Geraldobhumi Gaitan PCT header 2 SEE BELOW Normal [facility] Comment on above: Result Comment: PCT >/=0.5 and <2 ng/mL: Systemic infection (sepsis) is possible, moderate risk for progression to severe systemic infection (severe sepsis) Performed By: #### P RL #### [facility] [address] [place] [address] Geraldo Kandy PCT header 3 SEE BELOW Normal [facility] Comment on above: Result Comment: PCT >/=2.0 and <10 ng/mL: Systemic infection (sepsis) is likely, unless other causes are known, high risk for progession to severe systemic infection(severe sepsis) Performed By: #### P RL #### [facility] [address] [place] [address] Geraldo Gaitan PCT header 4 SEE BELOW Normal [facility] Comment on above: Result Comment: PCT >/= 10 ng/mL: Important systemic inflammatory response almost exclusively due to severe bacterial sepsis or septic shock, high likelihood of severe sepsis or septic shock Performed By: #### P RL #### [facility] [address] [place] [address] Geraldo Gaitan PROCALCITONIN 0.62 ng/mL Critically high 0.00-0.50 [facility] Comment on above: Performed By: #### P RL #### [facility] [address] [place] [address] Geraldo Gaitan PROF 14(COMP METB)on 020 Albumin [Mass/Vol] 3.6 g/dL Normal 3.5-5.0 [facility] Comment on above: Performed By: #### C MP #### [facility] [address] [place] [address] Geraldo Gaitan Albumin/Globulin [Mass ratio] 0.8 {ratio} Normal [facility] Comment on above: Performed By: #### C MP #### [facility] [address] [place] [address] Geraldo Kandy ALP [Catalytic activity/Vol] 95 U/L Normal 38-126 [facility] Comment on above: Performed By: #### C MP #### [facility] [address] [place] [address] Geraldo Gaitan ALT [Catalytic activity/Vol] 32 U/L Normal 9-52 [facility] Comment on above: Performed By: #### C MP #### [facility] [address] [place], [place] [phone] Geraldobhumi Gaitan Anion gap [Moles/Vol] 13.8 mmol/L Normal [facility] Comment on above: Performed By: #### C MP #### [facility] [address] [place] [address] Geraldo Gaitan AST [Catalytic activity/Vol] 42 U/L Critically high 14-36 [facility] Comment on above: Performed By: #### C MP #### [facility] [address] [place], [place] [address] Geraldo Kandy Bilirubin [Mass/Vol] 0.5 mg/dL Normal 0.2-1.3 [facility] Comment on above: Performed By: #### C MP #### [facility] [address] [place], [place] [address] Geraldo Kandy Calcium [Mass/Vol] 9.4 mg/dL Normal 8.4-10.2 [facility] Comment on above: Performed By: #### C MP #### [facility] [address] [place], [place] [address] Geraldo Kandy Chloride [Moles/Vol] 100 mmol/L Normal 98-107 [facility] Comment on above: Performed By: #### C MP #### [facility] [address] [id number] Geraldo Kandy CO2 [Moles/Vol] 24.6 mmol/L Normal 22.0-30.0 [facility] Comment on above: Performed By: #### C MP #### [facility] [address] [place], [place] [address] Geraldo Kandy Creatinine [Mass/Vol] 1.36 mg/dL Critically high 0.52-1.04 [facility] Comment on above: Performed By: #### C MP #### [facility] [address] [id number] Geraldo Kandy EGFR-AF HAITIAN 46 mL/min/1.73m2 Critically low >=60 [facility] Comment on above: Performed By: #### C MP #### [facility] [address] [place], [place] [address] Geraldo Kandy EGFR-NON AF HAITIAN 38 mL/min/1.73m2 Critically low >=60 [facility] Comment on above: Performed By: #### C MP #### [facility] [address] [place], [place] [address] Geraldo Kandy Globulin (S) [Mass/Vol] 4.5 g/dL Normal [facility] Comment on above: Performed By: #### C MP #### [facility] [address] [id number] Geraldo Kandy Glucose [Mass/Vol] 120 mg/dL Critically high 74-106 T [facility] Comment on above: Performed By: #### C MP #### [facility] [address] [address] Geraldo Kandy Potassium [Moles/Vol] 3.4 mmol/L Normal 3.4-5.0 [facility] Comment on above: Performed By: #### C MP #### [facility] [address] [place] [address] Geraldo Kandy Protein [Mass/Vol] 8.1 g/dL Normal 6.1-8.2 [facility] Comment on above: Performed By: #### C MP #### [facility] [address] [place] [address] Geraldo Kandy Sodium [Moles/Vol] 135 mmol/L Critically low 137-145 Th [facility] Comment on above: Performed By: #### C MP #### [facility] [address] [place] [address] Geraldo Kandy Urea nitrogen [Mass/Vol] 22.0 mg/dL Critically high 7.0-17.0 [facility] Comment on above: Performed By: #### C MP #### [facility] [address] [place] [address] Geraldo Kandy Urea nitrogen/Creatinine [Mass ratio] 16.2 mg/mg Normal [facility] Comment on above: Performed By: #### C MP #### [facility] [address] [place] [address] Geraldo Kandy RESPIRATORY PANEL PLUSon Adenovirus Not detected Normal NOT DETECTED [facility] Comment on above: Performed By: #### R SPLUS #### [facility] [address] [place] [address] Geraldo Kandy B. Parapertusis Not detected Normal NOT DETECTED [facility] Comment on above: Performed By: #### R SPLUS #### [facility] [address] [place] [address] Geraldo Kandy B. Pertussis Not detected Normal NOT DETECTED [facility] Comment on above: Performed By: #### R SPLUS #### [facility] [address] [place] [address] Geraldo Kandy Chlamydia Pneumoniae Not detected Normal NOT DETECTED [facility] Comment on above: Performed By: #### R SPLUS #### [facility] [address] [place] [address] Geraldo Kandy Coronavirus 229E Not detected Normal NOT DETECTED [facility] Comment on above: Performed By: #### R SPLUS #### [facility] [address] [place] [address] Geraldo Kandy Coronavirus HKU1 Not detected Normal NOT DETECTED [facility] Comment on above: Performed By: #### R SPLUS #### [facility] [address] [place] [address] Geraldo Kandy Coronavirus NL63 Not detected Normal NOT DETECTED [facility] Comment on above: Performed By: #### R SPLUS #### [facility] [address] [place] [address] Geraldo Kandy Coronavirus OC43 Not detected Normal NOT DETECTED [facility] Comment on above: Performed By: #### R SPLUS #### [facility] [address] [place] [address] Geraldo Kandy Influenza A H1 2009 Not detected Normal NOT DETECTED [facility] Comment on above: Performed By: #### R SPLUS #### [facility] [address] [place] [address] Geraldo Kandy Influenza B Not detected Normal NOT DETECTED [facility] Comment on above: Performed By: #### R SPLUS #### [facility] [address] [place] [address] Geraldo Kandy Metapneumovirus Not detected Normal NOT DETECTED [facility] Comment on above: Performed By: #### R SPLUS #### [facility] [address] [place] [address] Geraldo Kandy Mycoplas. Pneumoniae Not detected Normal NOT DETECTED [facility] Comment on above: Performed By: #### R SPLUS #### [facility] [address] [place] [address] Geraldo Kandy Parainfluenza 1 Not detected Normal NOT DETECTED [facility] Comment on above: Performed By: #### R SPLUS #### [facility] [address] [place] [address] Geraldo Kandy Parainfluenza 2 Not detected Normal NOT DETECTED [facility] Comment on above: Performed By: #### R SPLUS #### [facility] [address] [place] [address] Geraldo Kandy Parainfluenza 3 Not detected Normal NOT DETECTED [facility] Comment on above: Performed By: #### R SPLUS #### [facility] [address] [place] [address] Geraldo Kandy Parainfluenza 4 Not detected Normal NOT DETECTED [facility] Comment on above: Performed By: #### R SPLUS #### [facility] [address] [place] [address] Geraldo Kandy Rhino/Enterovirus Not detected Normal NOT DETECTED [facility] Comment on above: Performed By: #### R SPLUS #### [facility] [address] [place] [address] Geraldo Kandy RP2 Header 1 RESPIRATORY PANEL: VIRUSES Normal [facility] Comment on above: Performed By: #### R SPLUS #### [facility] [address] [place] [address] Geraldo Kandy RP2 Header 2 RESPIRATORY PANEL: BACTERIA Normal [facility] Comment on above: Performed By: #### R SPLUS #### [facility] [address] [place] [address] Geraldo Kandy RP2 Header 4 EUA SEE BELOW Normal [facility] Comment on above: Result Comment: This test is not yet approved or cleared by the [place] FDA. When there are no FDA-approved or cleared tests available, and other criteria are met, FDA can make tests available under an emergency access mechanism called an Emergency Use Authorization (EUA). The EUA for this test is supported by the [place] of Health and Human Service?s (HHS?s) declaration [...] used). Performed By: #### R SPLUS #### [facility] [address] [place] [address] Geraldobhumi Gaitan RSV Not detected Normal NOT DETECTED [facility] Comment on above: Performed By: #### R SPLUS #### [facility] [address] [place] [address] Geraldo Gaitan SARS-CoV-2 (COVID-19) RNA VIVIENNE+probe Ql (Unsp spec) Not detected Normal NOT DETECTED [facility] Comment on above: Performed By: #### R SPLUS #### [facility] [address] [place] [address] Geraldobhumi Gaitan URINE MICROSCOPIC ONLYon BACTERIA MODERATE Normal NONE SEEN [facility] Comment on above: Performed By: #### KANDICE CORDOVARO #### [facility] [address] [place] [address] Geraldo Kandy Bacteria identified Cx Nom (U) INDICATED Normal [facility] Comment on above: Performed By: #### KANDICE CORDOVARO #### [facility] [address] [place] [address] Geraldo Kandy CAST NONE SEEN Normal NONE SEEN [facility] Comment on above: Performed By: #### KANDICE CORDOVARO #### [facility] [address] [place] [address] Geraldo Kandy Crystals LM Nom (Urine sed) NONE SEEN Normal NONE SEEN [facility] Comment on above: Performed By: #### KANDICE CORDOVARO #### [facility] [address] [place] [address] Geraldobhumi Gaitan Epithelial cells LM Ql (Urine sed) RARE Normal [facility] Comment on above: Performed By: #### KANDICE CORDOVARO #### [facility] [address] [address] Geraldo Kandy MUCOUS NONE SEEN Normal NONE SEEN [facility] Comment on above: Performed By: #### MELODY CORDOVA #### [facility] [address] [place], [place] [address] Geraldo Kandy RBC 0-2 Normal 0-2 [facility] Comment on above: Performed By: #### MELODY CORDOVA #### [facility] [address] [id number] Geraldobhumi Charlesen WBC 5-10 Normal NONE SEEN [facility] Comment on above: Performed By: #### MELODY CORDOVA #### [facility] [address] [id number] Geraldo Charlesen XR CHEST 1 Von 01-02-2020 XR CHEST [...] REMY NESS Date: 2020-01-02 18:52 Normal [facility] Encounters Encounter Date Encounter Type Care Provider Facility Start: 01-09-2024 End: 01-09-2024 ambulatory Kei Espana MD Facility:[facility] Start: 12-28-2023 End: 12-28-2023 ambulatory SHARI MCKEON [...] 12-12-2023 End: 12-12-2023 ambulatory Kei Espana MD Facility:[facility] Start: 11-28-2023 End: 11-28-2023 ambulatory Andrius Snehal Quintanillaitis [facility]: [facility] Start: 10-04-2023 End: 10-04-2023 ambulatory ALEXANDER A HACKENBURG [facility] Start: 09-19-2023 End: 09-19-2023 ambulatory ALEXANDER A HACKENBURG Not Available Start: 09-19-2023 End: 09-19-2023 ambulatory ALEXANDER A HACKENBURG Not Available Start: 09-05-2023 End: 09-05-2023 ambulatory Andrius Vytautas Sherinraitis Facility:[facility] Start: 08-22-2023 End: 08-22-2023 ambulatory Andrius Emmaytautas Sherinraitis Facility:[facility] Start: 07-25-2023 End: 07-25-2023 ambulatory Andrius Snehal Quintanillaitis Facility:[facility] Start: 07-11-2023 End: 07-11-2023 ambulatory Andrius Emmaytautas Dwightitis 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 Start: 04-21-2023 Refill Alexander A Jermainetej marcum LEGAL EDITOR Work Phone: [employer] Comment on above: Essential hypertensi on ([facility] Start: 04-18-2023 End: 04-18-2023 ambulatory ALEXANDER A ASIAENBURG Not Available Start: 03-08-2023 End: 03-08-2023 ambulatory MARISA RAMOS Not Available Start: 03-01-2023 End: 03-01-2023 ambulatory MARISA RAMOS Not Available Start: 02-22-2023 End: 02-22-2023 ambulatory MARISA RAMOS Not Available Start: 02-08-2023 End: 02-08-2023 ambulatory MARISA RAMOS Not Available Start: 02-01-2023 End: 02-01-2023 ambulatory MARISA RAMOS Not Available Start: 01-28-2023 End: 01-28-2023 ambulatory SHARI MCKEON Not Available Start: 07-26-2022 End: 07-26-2022 ambulatory SHARI MCKEON Facility:[facility] Start: 06-29-2022 End: 06-30-2022 ambulatory SHARI MCKEON Facility:[facility] Start: 10-24-2020 End: 10-25-[address] SHARI MCKEON Facility:[facility] Start: 09-30-2020 End: 10-01-[address] SHARI MCKEON Facility:[facility] Start: 02-01-2020 End: 02-01-[address] CARLOS EDUARDO MENENDEZ Facility:[facility] Start: 01-30-2020 Encounter for preprocedural laboratory examination DR CARLOS EDUARDO MENENDEZ [facility] Start: 01-26-2020 End: 01-27-[address] SHARI MCKEON Facility:[facility] Start: 01-26-2020 End: 01-27-2020 Encounter for preprocedural laboratory examination DR SHARI MCKEON Facility:[facility] Start: 01-02-2020 End: 01-02-[address] BÁRBARA BLUE Facility:[facility] Start: 05-25-2018 End: 05-26-2018 Patient encounter procedure DEFAULT PHYSICIAN Facility:[facility] Plan of Treatment Date Care Activity Detail Author Start: 06-16-2024 Medicare Annual Wellness (AWV) Medicare Annual Wellness (AWV) [facility] Start: 12-28-2023 End: 12-28-2023 Professional / ancillary services management 12/28/2023 9:00 AM EDT Ancillary Procedure [facility] [address] [place] [id number] [facility] Start: 12-13-2023 End: 02-11-2025 MG Breast - bilateral Screening Bilateral screening mammogram Imaging Routine Encounter for screening mammogram for malignant neoplasm of breast Expected: 12/13/2023, Expires: 02/11/2025 [facility] Work Phone: Comment on above: Expected: 12/13/2023 , Expires: 02/11/2025 Start: 11-13-2023 Influenza vaccination Influenza Vacc ine (#1) [facility] Start: 08-02-2023 End: 08-02-2023 Patient encounter procedure 08/02/2023 9:00 AM EDT Office Visit [facility] [address] [facility] [address] [place] [address] Marisa Ramos DO [address] [facility] [address] [place] [address] [facility] Start: 05-06-2023 Medicare Annual Wellness (AWV) Medicare Annual Wellness (AWV) [facility] Immunizations Immunization Date Immunization Notes Care Provider Fa cility 12-23-2022 Influenza, High-dose Seasonal, Quadrivalent, Preservative Free Alexander Hackenburg LEGAL EDITOR Work Phone: [facility] 12-23-2022 SARS-COV-2 (COVID-19 ) vaccine, mRNA, spike protein, LNP, PF, 50 mcg/0.5 mL Alexander Hackenburg LEGAL EDITOR Work Phone: [facility] 12-23-2022 influenza virus vaccine, unspecified formulation Shari Mckeon MD Work Phone: [facility] 12-01-2021 Influenza, Seasonal, Quadrivalent, Adjuvanted Alexander Hackenburg LEGAL EDITOR Work Phone: [facility] 12-01-2021 Seasonal, trivalent, recombinant, injectable influenza vaccine, preservative free Alexander Hackenburg LEGAL EDITOR Work Phone: [facility] 12-16-2020 Influenza, High-dose Seasonal, Quadrivalent, Preservative Free Alexander Hackenburg LEGAL EDITOR Work Phone: [facility] 02-14-2020 zoster vaccine recombinant Alexander Hackenburg LEGAL EDITOR Work Phone: [facility] 12-07-2019 influenza, seasonal, injectable Alexander Hackenburg LEGAL EDITOR Work Phone: [facility] 11-13-2019 influenza, injectabl e, quadrivalent, preservative free Alexander Hackenburg LEGAL EDITOR Work Phone: [facility] 11-13-2019 zoster vaccine recombinant Alexander Hackenburg LEGAL EDITOR Work Phone: [facility] 11-12-2019 zoster vaccine recombinant Alexander Hackenburg LEGAL EDITOR Work Phone: [facility] 11-29-2018 Seasonal trivalent influenza vaccine, adjuvanted, preservative free Alexander Hackenburg LEGAL EDITOR Work Phone: [facility] 11-30-2017 influenza, high dose seasonal, preservative-free Alexander Hackenburg LEGAL EDITOR Work Phone: [facility] 11-24-2017 Seasonal trivalent influenza vaccine, adjuvanted, preservative free Alexander Hackenburg LEGAL EDITOR Work Phone: [facility] 11-18-2016 influenza, high dose seasonal, preservative-free Alexander Hackenburg LEGAL EDITOR Work Phone: [facility] Work Phone: 11-18-2016 pneumococcal conjuga te vaccine, 13 valent Alexander Hackenburg LEGAL EDITOR Work Phone: [facility] 11-18-2016 Seasonal trivalent influenza vaccine, adjuvanted, preservative free Alexander Hackenburg LEGAL EDITOR Work Phone: [facility] 11-18-2016 tetanus toxoid, redu greg diphtheria toxoid, and acellular pertussis vaccine, adsorbed Alexander Hackenburg LEGAL EDITOR Work Phone: [facility] 11-12-2016 pneumococcal polysaccharide vaccine, 23 valent Alexander Hackenburg LEGAL EDITOR Work Phone: [facility] 12-11-2015 influenza, high dose seasonal, preservative-free Alexander Hackenburg LEGAL EDITOR Work Phone: [facility] 12-30-2014 influenza virus vaccine, whole virus Alexander Hackenburg LEGAL EDITOR Work Phone: [facility] 12-30-2014 influenza, injectabl e, quadrivalent, preservative free Alexander Hackenburg LEGAL EDITOR Work Phone: [facility] 05-10-2014 pneumococcal conjuga te vaccine, 13 valent Alexander Hackenburg LEGAL EDITOR Work Phone: [facility] 12-13-2013 influenza virus vaccine, whole virus Alexander Hackenburg LEGAL EDITOR Work Phone: [facility] 01-12-2013 pneumococcal Conjuga te, unspecified formulation Alexander Hackenburg LEGAL EDITOR Work Phone: [facility] 01-12-2013 seasonal influenza, intradermal, preservative free Alexander Hackenburg LEGAL EDITOR Work Phone: [facility] 12-27-2012 pneumococcal polysaccharide vaccine, 23 valent Alexander Hackenburg LEGAL EDITOR Work Phone: [facility] Payers Date Payer Category Payer Unknown 2017 Medicare ANTHEM MEDICARE ADVANTAGE ANTHEM MEDICARE ADVANTAGE [id number] 2017-Present [address] [place] [address] [id number] 1959 Unknown [id number] 1945 Unknown [id number] 2..840.1.917836.3.579.2.647 1944 Unknown [id number] 2.840.1.151285.3.579.2.593 1944 Unknown [id number] 2.840.1.996233.3.579.2.593 1944 Unknown [id number] 2.16.840.1.788368.3.579.2.593 1944 Unknown [id number] 2.16840.1.653829.3.579.2.593 1944 Unknown [id number] 2.16.840.1.081237.3.579.2.593 1944 Unknown [id number] 2.16.840.1.592372.3.579.2.718 1944 Unknown [id number] 2.16.840.1.785788.3.579.2.718 1944 Unknown [id number] 2.16.840.1.980354.3.579.2.128 6 1944 Unknown [id number] 2.16.840.1.661201.3.579.2.125 9 1944 Unknown [id number] 2.16.840.1.856750.3.579.2.125 9 1944 Unknown [id number] 2.16.840.1.161310.3.579.2.125 9 1944 Unknown [id number] 2.16.840.1.028557.3.579.2.125 9 1944 Unknown [id number] 2.16.840.1.929947.3.579.2.125 9 1944 Unknown [id number] 2.16.840.1.446257.3.579.2.125 9 1944 Unknown [id number] 2.16.840.1.813139.3.579.2.125 9 1944 Unknown [id number] 2.16.840.1.504542.3.579.2.125 9 1944 Unknown [id number] 2.16.840.1.824187.3.579.2.125 9 1944 Unknown [id number] 2.16.840.1.828752.3.579.2.125 9 1944 Unknown [id number] 2.16.840.1.201753.3.579.2.125 9 1944 Unknown [id number] 2.16.840.1.894472.3.579.2.125 9 1944 Unknown [id number] 2.16.840.1.972001.3.579.2.125 9 1944 Unknown [id number] 2.16.840.1.778803.3.579.2.125 9 1944 Unknown [id number] 2.16.840.1.141318.3.579.2.196 1944 Unknown [id number] 2.16.840.1.003402.3.579.2.196 1944 Unknown [id number] 2.16.840.1.480989.3.579.2.196 1944 Unknown [id number] 2.16.840.1.266958.3.579.2.196 1944 Unknown [id number] 2.16.840.1.023889.3.579.2.196 1944 Unknown [id number] 2.16.840.1.972632.3.579.2.196 1944 Unknown [id number] 2.16.840.1.479059.3.579.2.196 Social History Date Type Detail Facility Start: 09-17-2022 Tobacco smoking stat [facility] [...] 12-22-2023 Telephone encounter Note Approvals with refills [facility] 12-22-2023 Miscellaneous Notes Approvals with refills documented in this encounter [facility] 12-13-2023 Telephone encounter Note Patient called and would like an order for a mammogram sent over. Last one on 12/20/2022. Thank you [facility] 12-13-2023 Miscellaneous Notes Patient called and would like an order for a mammogram sent over. Last one on 12/20/2022. Thank you documented in this encounter [facility] 04-27-2023 Telephone encounter Note Called pt and informed 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 Allergies: NKDA . Her call back [phone] documented in this encounter 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 Allergies: NKDA . Her call back [phone] [facility] 04-21-2023 Telephone encounter Note Refills sent. [facility] 04-21-2023 Miscellaneous Notes Refills sent. documented in this encounter [facility] 07-27-2022 Note [id number] [facility] 07-26-2022 Note [facility] SURGERY Clinical Discharge Summary PERSON INFORMATION Name RADHA CUADRA Age 77 Years 1945 Sex FEMALE Language Citizen Of [place] PCP SHARI MCKEON Marital Status Med Service Ambulatory Surgery Acct# Arrival 07/26/2022 05:52:10 Visit Reason SURGERY - LEFT REVERSE TOTAL SHOULDER - ARTHREX Acuity LOS 053 02:57 Address: [address] [place] [address] [place] [address] Comment: PROVIDER INFORMATION VITALS INFORMATION Vital Sign [...] REASON INCOMPLETE INFORMATION (more content not included)... [facility] 02-01-2020 Note OPERATIVE NOTE OPERATION DATE: [...] position. She was sedated by the nurse collar packer. Bite block was placed in her mouth. [...] patient tolerated the procedure without any difficulties. [facility] SIGNED AND APPROVED BY: DR CARLOS EDUARDO MENENDEZ . 02/07/2020 09:15:00 [facility] Evaluation note Diagnosis Essential hypertension (CMS/HCC) Unspecified [...] section and content) DATE CREATED AUTHOR 05/27/2018 [facility] DATE CREATED AUTHOR AUTHOR'S ORGANIZ ATION [facility]/06/2020 [facility] DATE CREATED AUTHOR AUTHOR'S ORGANIZ ATION 05/12/2022 [facility] dical Specialist DATE CREATED AUTHOR AUTHOR'S ORGANIZ ATION 07/28/2022 [facility] DATE CREATED AUTHOR AUTHOR'S ORGANIZ ATION 10/06/2023 [facility] DATE CREATED AUTHOR AUTHOR'S ORGANIZ ATION 01/02/2024 [facility] dical Specialists [facility] DATE CREATED AUTHOR AUTHOR'S ORGANIZ ATION 01/13/2024 [facility] Reason for Visit (unrecogniz ed section and content) Reason Comments Med Refill Reason 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 Care Teams (unrecognized sec tion and content) Cna Instructor Relationship Specialty Start Date End Date Alexander Aparicio NP [address] [facility] [place] [address] PCP - Cristobal FIGUEROA 03/21/21 Shari Mckeon MD [address] [facility] [place] [address] PCP - General Family Medicine 07/26/22 Cna Instructor Relationship Specialty Start Date End Date Alexander Aparicio NP [address] [facility] [place] [address] PCP - Cristobal FIGUEROA 03/21/21 Shari Mckeon MD [address] [facility] [place] [address] PCP - General Family Medicine 07/26/22 Cna Instructor Relationship Specialty Start Date End Date Alexander Aparicio NP [address] [facility] [place] [address] PCP - Cristobal FIGUEROA 03/21/21 Shari Mckeon MD [address] [facility] [place] [address] PCP - General Family Medicine 07/26/22 Cna Instructor Relationship Specialty Start Date End Date Alexander Aparicio NP [address] [place], [place] [id number] PCP - Cristobal FIGUEROA 03/21/21 Shari Mckeon MD [address] [facility] [place], [place] [id number] PCP - General Family Medicine 07/26/22 Cna Instructor Relationship Specialty Start Date End Date Alexander Aparicio NP [address] [place], [place] [id number] PCP - Cristobal FIGUEROA 03/21/21 Shari Mckeon MD [address] [place], [place] [id number] PCP - General Family Medicine 07/26/22 FOR [...] BE BASED ON THE PRIMARY CLINICAL RECORDS. [facility] [employer] [facility]. provides no warranty or guarantee of the accuracy or completeness of information in this document.
--- NOTE | 2024-01-25 08:16 | P.CN_ITS ---
Consult Note: HPI Data of Consult Patient: known to practice within the last 3 years Consult date: 11/28/23 Requesting Physician: Concha Lopez NP Primary Care Provider: KELLY MCKEON Consult Narrative Reason for consult: back pain Narrative: 78yof who presents for assessment. notes low back pain that is higher than where her previous ablation was. notes significant relief >80% with rfa at bilateral l4-5, l5-s1. now points to pain slightly higher. imaging reviewed, which shows multilevel facet arthropathy in thoracic and lumbar spine. has continued to engage in a series of provider directed home exercises >6 weeks, without lasting benefit. uses otc pain meds as needed and tylenol #3 BID PRN. denies adverse med side effects. patient recently underwent bilateral T10-11 T11-12 MBB #1 and #2 with >80% improvement in pain and functional improvement immediately following and hours after, preop pain up to 9/10 with activity and after procedure 0/10. was able to stand, walk, make pie, do dishes, sweep floors with very minor pain. She reports she cannot do these activities on a normal day. cc:: CC: Concha Lopez NP Review of Systems ROS Status of ROS 10 or more systems reviewed and unremark able except as noted in history and below Musculoskeletal Reports: back pain PFSH PFSH Medical History Osteoarthritis ?M19.90 - Unspecified osteoarthritis, unspecified site (ICD-10) Heart murmur ?R01.1 - Cardiac murmur, unspecified (ICD-10) Surgical History History of total shoulder replacement ?Z96.619 - Presence of unspecified artificial shoulder joint (ICD-10) History of total knee arthroplasty ?Z96.659 - Presence of unspecified artificial knee joint (ICD-10) History of carpal tunnel release ?Z98.890 - Other specified postprocedural states (ICD-10) Meds Home Medications and Allergies Home Medications ?Medication ?Instructions ?Recorded ?Confirmed ?Type calcium 600 mg (as 1 tab PO BID 07/11/23 01/23/24 History carbonate)-vitamin D3 5 mcg (200 unit) tablet (Calcium 600 + D(3)) losartan 100 mg tablet 100 mg PO DAILY 07/11/23 01/23/24 History multivitamin-ferrous 1 tab PO DAILY 07/11/23 01/23/24 History fumarate-folic acid 18 mg-400 mcg tablet (Centrum Women) trazodone 50 mg tablet 50 mg PO DAILY 07/11/23 01/23/24 History vitamin B complex 1 cap PO DAILY 07/11/23 01/23/24 History fluticasone 250 mcg-salmeterol 50 inhalation 08/22/23 History mcg/dose blistr powdr for inhalation acetaminophen 300 mg-codeine 30 mg 1 tab PO BID PRN pain #60 tabs 11/28/23 01/23/24 Rx tablet acetaminophen 300 mg-codeine 30 mg 1 tab PO BID PRN pain #60 tabs 01/11/24 Rx tablet Allergies Allergy/AdvReac Type Severity Reaction Status Date / Time No Known Drug Allergies Allergy Verified 01/23/24 09:16 Exam Constitutional Documenting provider has reviewed patient's vital signs: yes Common normals: no apparent distress, oriented x3, healthy appearing, alert and well nourished General appearance: cooperative HENMD Common normals: normocephalic, hearing grossly normal bilaterally and moist oral mucous membranes Head and scalp: normocephalic Eye Common normals: PERRL Pupil: PERRL Neck & C-Spine Common normals: full ROM General: normal visual inspection Chest Common normals: inspection of chest normal Respiratory Common normals: normal respiratory effort, no retractions and no use of accessory muscles Back & Pelvis Thoracic spine/upper back: ROM limited, pain with ROM and thoracic spinal tenderness; no paraspinal muscle spasm Lumbar spine/lower back: ROM limited, pain with ROM and lumbar spinal tenderness; no paraspinal muscle spasm Other: positive facet loading tenderness over T10-L2 facets no radiculopathy on exam strength 5/5 in BLE Neuro Common normals: oriented x3, CN's II-XII intact bilaterally, moves all extremities, no focal motor deficits, no sensory deficits noted and deep tendon reflexes 2+ bilaterally Sensorium/orientation: alert Motor exam: strength 5/5 throughout and no movement abnormalities noted Psych Common normals: mental status grossly normal, thought process normal, coding coordinator perative, affect normal, speech normal and activity/motor behavior normal Speech: normal speech Thought process: normal thought process Results Additional Findings Additional findings: If on a controlled substance or opioids, I have checked an [place]AR[place] report on this patient and there are no aberrancies noted in the prescribing history.??If on a controlled substance or opioid a drug screen was completed and reviewed within the last year, and if there has not been a drug screen completed we ordered one today to monitor higher risk, state monitored pain medication use. As part of providing excellent, safe, comprehensive care, the following was completed at our patient's visit: 1. A medication reconciliation and review to ensure accurate knowledge of current/active medications, including asking our patients to inform us about any [id number] medications or herbal remedies/nutritional supplements/alternative remedies. 2. A review to specifically ensure our patients have had annual screening for screening for depression, screening for tobacco use, and screening for unhealthy alcohol use. For concerning screenings had a discussion with the patient, provided patient education, and recommended follow-up with primary care provider when appropriate. If patient noted with a risk of falling, they received education on strength, gait, and balance training to prevent future risk of falling. Assessment and Plan Assessment and Plan (1) Thoracic back pain: (2) Thoracic spondylosis: (3) Lumbar spondylosis: (4) Chronic use of opiate drug for therapeutic purpose: Assessment and Plan: I feel these medications are improving the patient's quality of life and allow them to tolerate activities of daily living as well as participate in recreational activity.? The patient does not report intolerable side effects. The patient is NOT opioid naive and non-pharmacologic and non-opioid treatment has failed to significantly relieve the patient's pain and improve functionality. The patient has a diagnosis that is related to a somatic or visceral pain etiology. ? ?? I reviewed with the patient the potential risks and side effects with the use of? opioid medications including but not limited to respiratory depression,? sedation, and even . I verified the patient has access to naloxone should? these effects occur. I advised the patient to avoid the use of any other? sedation substances including alcohol, THC, and benzodiazepines while? taking opioid medications due to the risk of compounding side effects and? detrimental outcomes. I reviewed the OUTBOARD TECHNICIAN, pain treatment agreement, urine? drug screen, and opioid start talking forms. The patient was advised to let? their family know they had Naloxone in case they would need to administer? the medication.? ?? A drug screen was completed within the last year, and no aberrancies were noted regarding their use of controlled substances. The patient understands they are subject to the terms and conditions of the pain contract that they have signed. ? ?? I have checked an OARRS report on this patient today and there are no aberrancies noted in the prescribing history.? (5) Osteoarthritis: Plan proceed with right and left T10-11 T11-12 RFA under fluoroscopy continue current medications, reporting significant improvement in pain and functional ability with tylenol #3 BID PRN f/u 1 month after RFA complete
== END 2024-01-25 07:56 | disposition home or self-care (01) ==
LOC: PM 07:55
PROVIDERS: PCP Family Medicine; Visit Provider Nurse Practitioner
DX: M54.14 Radiculopathy, thoracic region (principal); M47.814 Spondylosis without myelopathy or radiculopathy, thoracic region; M47.816 Spondylosis without myelopathy or radiculopathy, lumbar region; Z79.891 Long term (current) use of opiate analgesic; M19.90 Unspecified osteoarthritis, unspecified site
CPT/HCPCS: G0463

== ENCOUNTER 2024-02-06 08:43 | Day surgery (SDC) | payer MEDICARE, SELFPAY ==
--- OUTSIDE RECORDS SUMMARY | 2024-02-06 08:56 | XMS_ITS | CCD ---
Author Organization [facility] Care Team Providers Care Office Administrator Name Role Phone PHYSICIAN, DEFAULT Admitting Unavailable [...] RAMILA, DR CARLOS EDUARDO Worthy Attending Unavailable WIECEK, [...] able Marisa Ramos Attending Unavail able Albina SPOOLER OPERATOR AUTOMATIC, Alexander Plascencia Unavailable Shari Mckeon MD Primary Care Provider ALEXANDER APARICIO Referring Unavailab le SHARI MCKEON Primary Care Unavailable ALBINA ALEXANDER Plascencia Attending Unavail darinel MIKE, SHARI Attending Unavailable SHARI MCKEON Referring Unavailable PATRICIAMARISA Attending Unavailable PATRICIAMARISA WHITE Referring Unavailable [place], MARISA Plascencia Attending Unavailable [place], MARISA Plascencia Attending Unavailable [place], MARISA Plascencia Referring Unavailable [facility], ALEXANDER Plascencia Attending Unavailab [facility], [facility] Plascencia Attending Unavailab [facility] Center[facility], ALEXANDER Plascencia Referring Unavail darinel MIKESHARI DONOHUE Referring Unavailable [facility] Attending Unavailable [place], MARISA Plascencia Attending Unavailable Giedraitis , Andrius Vytautanthony Attending Unavailable Giedraitis MD, Andrius Vytautas Attending [...] sources) Alendronate; Translations: [Fosamax] Drug Allergy [facility] Repository (8 sources) Alendronate Drug Allergy 09-10-2020 Unknown [facility] Medications Current Medications Medication Drug Class(es) Dates Sig (Normalized) Sig (Original) acetaminophen 325 mg / butalbital 50 mg / caffeine 40 mg oral tablet (8 sources) Barbiturate, Central Nervous System Stimulant, Methylxanthine [...] 05/04/2023 Active atorvastatin 20 mg oral tablet (8 sources) HMG-CoA Reductase Inhibitor Start: 09-28-2023 take [...] 0 04/18/2023 04/23/2023 Active CALCIUM-VITAMIN D PO (8 sources) Start: 06-29-2022 CALCIUM-VITAMIN D PO 2 [...] / salmeterol 0.05 mg/actuat dry powder inhaler (8 sources) Corticosteroid, beta2-Adrenergic Agonist Start: 12-09-2023 take [...] / losartan potassium 100 mg oral tablet (9 sources) Thiazide Diuretic, Angiotensin 2 Receptor Aguilar [...] 01/18/2023 04/21/2023 Discontinued Multiple Vitamin (multivitamin) capsule (8 sources) take 1 capsule by mouth in [...] Active traZODone hydrochloride 50 mg oral tablet (9 sources) Serotonin Reuptake Inhibitor Start: 09-26-2023 End: 12-22-2023 take 1 tablet by mouth at bedtime traZODone (Desyrel) 50 MG tablet Indications: Primary insomnia Take 1 tablet (50 mg) by mouth at bedtime 90 tablet 11 12/22/2023 Active Start: 04-08-2023 take 1 tablet by abhinav th at bedtime traZODone (Desyrel) 50 MG tablet Indications: Primary insomnia Take 1 tablet (50 mg) by mouth at bedtime 90 tablet 1 04/08/2023 Active turmeric extract 500 mg oral capsule (8 sources) Turmeric 500 MG tablet Orally Active Turmeric 500 MG tablet Orally 0 Active Problems Active Problems Problem Classification Problem Date Documented Date Episodic/Chronic Asthma (16 sources) Mild intermittent asthma; Translations: [Mild intermittent asthma with status asthmaticus] Onset: 06-12-2017 Resolved: 06-17-2023 07-15-2022 Chronic Chronic kidney disease (8 sources) Chronic kidney disease stage 3B ; Translations: [Stage 3b chronic kidney disease (HCC)] Onset: 07-15-2022 07-15-2022 Chronic Chronic obstructive pulmonary disease and bronchiectasis (9 sources) Chronic obstructive pulmonary disease, unspecified; Translations: [Chronic obstructive lung disease] Onset: 05-18-2011 07-15-2022 Chronic Disorders of lipid metabolism (16 sources) Pure hypercholesterolemia ; Translations: [Pure hypercholesterolemia , unspecified] Onset: 07-15-2022 07-15-2022 Chronic Essential hypertension (18 sources) Essential (primary) hypertension; Translations: [Essential hypertension] [...] Primary insomnia; Translations: [Primary insomnia] 12-22-2023 Chronic Mycoses (2 sources) Onychomycosis due to dermatophyte ; Translations: [Tinea unguium] 01-24-2024 Episodic Nonspecific chest pain (1 source) Chest pain, unspecified; Translations: [Chest pain, unspecified] Onset: 10-04-2023 Episodic Osteoarthritis (20 sources) Unspecified osteoarthritis, unspecified site; Translations: [Arthritis of left knee] Onset: 06-22-2017 Resolved: 06-17-2023 07-15-2022 Chronic Osteoporosis (16 sources) Senile osteoporosis; Translations: [Age-related osteoporosis without current pathological fracture] Onset: 11-04-2017 Resolved: 06-17-2023 07-15-2022 Chronic Other connective tissue disease (8 sources) Artificial knee joint present; Translations: [Presence of unspecified artificial knee joint] Onset: 07-15-2022 07-15-2022 Chronic Other connective tissue disease (1 source) History of reverse prosthetic total arthroplasty of left shoulder; Translations: [Presence of left artificial shoulder joint] 04-27-2023 Chronic Other connective tissue disease (2 sources) Pain in hallux; Translations: [Pain in left toe(s)] 01-24-2024 Episodic Other hereditary and degenerative nervous system conditions (16 sources) Restless legs; Translations: [Restless legs syndrome] Onset: 10-26-2017 Resolved: 06-17-2023 07-15-2022 Chronic Other lower respiratory disease (5 sources) Shortness of breath; Translations: [SHORTNESS OF BREATH] Onset: 09-30-2020 Episodic Other nervous system disorders (8 sources) Difficulty walking; Translations: [Difficulty in walking, not elsewhere classified] Onset: 07-15-2022 07-15-2022 Chronic Other nervous system disorders (8 sources) Chronic pain; Translations: [Other chronic pain] Onset: 08-03-2022 08-03-2022 Chronic Other screening for suspected conditions (not mental disorders or infectious disease) (1 source) Patient encounter status; Translations: [Encounter for screening mammogram for malignant neoplasm of breast] 12-13-2023 Episodic Other skin disorders (2 sources) Dystrophia unguium; Translations: [Nail dystrophy] 01-24-2024 Episodic Other skin disorders (2 sources) Ingrowing nail; Translations: [Ingrowing nail] 01-24-2024 Episodic Residual codes; unclassified (8 sources) Insomnia; Translations: [Other insomnia] Onset: 07-15-2022 07-15-2022 Chronic Past or Other Problems Problem Classification Problem Date Documented Da te Episodic/Chronic Fever of unknown origin (4 sources) Fever, unspecified; Translations: [FEVER UNSPECIFIED] Onset: 01-02-2020 Episodic Fluid and electrolyte disorders (1 source) Dehydration; Translations: [DEHYDRATION] Onset: 01-04-2020 Episodic Gastritis and duodenitis (9 sources) Gastritis, unspecified, without bleeding; Translations: [Bile-induced gastritis] Onset: 02-14-2020 Resolved: 06-17-2023 07-15-2022 Episodic Heart valve disorders (16 sources) Systolic murmur; Translations: [Cardiac murmur, unspecified] Onset: 07-15-2022 Resolved: 06-17-2023 07-15-2022 Episodic Immunizations and screening for infectious disease (1 source) Contact with and (suspected) exposure to other viral communicable diseases; Translations: [CONTCT EXPS OTH VIRL COMMUNICABL DZ] Onset: 01-30-2020 Episodic Mood disorders (6 sources) Mood disorders Onset: 06-17-2023 06-17-2023 Other aftercare (1 source) Other prison (current) drug therapy; Translations: [OTH SENIOR CARE CURRENT DRUG THERAPY] Onset: 02-14-2020 Episodic Other aftercare (1 source) terminal press operator (current) use of aspirin; Translations: [SENIOR CARE CURRENT USE OF ASPIRIN] Onset: 01-04-2020 Episodic Other gastrointestinal disorders (4 sources) Dysphagia, unspecified; Translations: [DYSPHAGIA UNSPECIFIED] Onset: 02-01-2020 Episodic Other gastrointestinal disorders (8 sources) Dysphagia; Translations: [Dysphagia, unspecified] Onset: 07-15-2022 Resolved: 06-17-2023 07-15-2022 Episodic Other lower respiratory disease (1 source) Cough; Translations: [COUGH] Onset: 01-04-2020 Episodic Other non-traumatic joint disorders (8 sources) Derangement of left shoulder joint; Translations: [Other specific joint derangements of left shoulder, not elsewhere classified] Onset: 07-15-2022 Resolved: 06-17-2023 07-15-2022 Chronic Residual codes; unclassified (8 sources) Poor sleep pattern; Translations: [Other sleep disorders] Onset: 08-21-2020 Resolved: 06-17-2023 08-03-2022 Chronic Residual codes; unclassified (8 sources) Postmenopausal state; Translations: [Asymptomatic menopausal state] [...] Not Available Consent Formson 07-27-2022 Consent Forms [id number][facility] Dis[facility] Instructions [id number]#1.00[facility] Intraoperative Recordon 07-27-2022 MAGR Intraoperative Record MAGR Intra-Op Record Summary Primary Physician: Marisa Ramos DO Finalized Date/Time: 07/27/22 09:45:04 Pt. Name: CHRISTI RADHAJANELLE Dangelo/Sex: 1945 FEMALE Med Rec #: [id number] Physician: Marisa Ramos DO Financial #: [id number] Pt. Type: D Room/Bed: / Admit/Disch: 07/26/22 [...] Role Performed Surgeon - Primary Anesthesiologist of Set Up Operator Record Time In 07/26/22 07:39:00 07/26/22 07:39:00 07/26/22 07:39:00 Time Out 07/26/22 09:49:00 07/26/22 09:49:00 07/26/22 09:49:00 Procedure Arthroplasty Shoulder Arthroplasty Shoulder Arthroplasty Shoulder Total Reverse(Left) Total Reverse(Left) Total Reverse(Left) Last Modified By: Mode RN, Jania Coello RN, Jania Conde RN 07/26/22 09:49:54 07/26/22 09:49:54 07/26/22 09:49:54 Entry 4 Entry 5 Entry 6 Case Attendee Fahad CHRONOGRAPH OPERATOR, Paulina CHRONOGRAPH OPERATOR Nikir, Lisa Portillo CHRONOGRAPH OPERATOR/CSFA, ZOE Worthy CHRONOGRAPH OPERATOR Role Performed Scrub Personnel Scrub Personnel Line Out Worker Time In 07/26/22 07:39:00 07/26/22 07:39:00 07/26/22 [...] to chemical sources (more content not included)... [facility] Outside Recordson 07-27-2022 Outside Records [id number]#1.00OTGTIFF [facility] Provider Orderson 07-27-2022 Provider Orders [id number]#1.00[facility] Telemetry Stripson Telemetry Strips [id number]#1.00[facility] Anesthesia Noteon 07-26-2022 Anesthesia Note Patient: RADHA [...] 07/26/2022 11:51 EDT] Remy Da Silva MD [facility] Anesthesia Note Patient: RADHA CUADRA [...] obstructive pulmonary disease (COPD) / SNOMED CT 68520569 / Confirmed Heart murmur / SNOMED CT 450802869 / Confirmed Hyperlipidemia / SNOMED CT 16844557 / Confirmed HTN (hypertension) / SNOMED CT 1294253626 / Confirmed Histories Family History: COPD Mother Father Procedure history: Arthroplasty of left knee (0825851984). Arthroplasty of right knee (0542804369). Carpal tunnel release (371830305). Comments: 06/29/2022 13:15 Dorota De Leon RN bilat Colonoscopy (764906905). EGD - Esophagogastroduodenoscopy (1923023454). Disorder of rotator cuff (1412720670). Comments: 06/29/2022 13:14 Dorota De Leon RN [...] Oriented. Review / Management Laboratory Results Plan [place] [employer]#(ASA) physical status classification: Class [...] 07/26/2022 08:23 EDT] Remy Da Silva MD [facility] Inpatient Patient Summaryon 07-26-2022 Inpatient [place] [address] Patient Discharge Instructions Name: RADHA CUADRA : 1945 Patient Address: [address] [place] [address] Primary Care Provider: Name: SHARI MCKEON After you are discharged if you find you have any questions, please, call [phone] ext [phone] to speak to a nurse. Discharge Diagnosis: [...] contact the Mental Health & Recovery Board [facility] 04/10 Crisis Hotline -Text 4HYDQ in 009665. If you received any narcotics, sedation, or [...] business decisions or sign any legal documents [facility] would like to thank you for allowing us to assist you with your healthcare needs. The following includes patient education materials and information regarding your injury/illness. RADHA CUADRA has been given the following list of follow-up instructions, prescriptions, and patient education materials: Follow-up Instructions With: Address: When: Marisa Ramos [address] [place] [address], [address] [place] [address] Business (1) 08/03/2022 11:00 AM Medications During [...] your fingers frequently (more content not included)... [facility] MAGR Intraoperative Record MAGR Intra-Op Record Summary Primary Physician: Finalized Date/Time: 07/26/22 07:42:32 Pt. Name: RADHA CUADRA Antolin/Sex: 1945 FEMALE Med Rec #: [id number] Physician: Marisa Ramos DO Financial #: [id number] Pt. Type: D Room/Bed: / Admit/Disch: 07/26/22 [...] Warga, Laura RN Role Performed Anesthesiologist of Set Up Operator Set Up Operator Record Time In 07/26/22 07:13:00 07/26/22 07:13:00 07/26/22 07:13:00 Time Out 07/26/22 07:38:00 07/26/22 07:38:00 07/26/22 07:38:00 Procedure Interscalene Block(Left) Interscalene Block(Left) Interscalene Block(Left) Last Modified By: Kimberley Le RN, Margaret RN Klaehn, Margaret RN 07/26/22 07:39:31 07/26/22 07:39:31 07/26/22 07:39:31 Entry 4 Case Attendee Amy Bates RN Role Performed Set Up Operator Time In 07/26/22 07:13:00 Time Out 07/26/22 [...] Stretcher Post-op Destinat (more content not included)... [facility] MAGR PACU Recordon MAGR PACU Record MAGR PACU Record [facility] Primary Physician: Marisa Ramos DO Finalized Date/Time: 07/26/22 10:38:28 Pt. Name: RADHA CUADRA/Sex: 1945 FEMALE Med Rec #: [id number] Physician: Marisa Ramos DO Financial #: [id number] Pt. Type: D Room/Bed: / Admit/Disch: 07/26/22 05:52:10 - Institution: PACU Case Times MAGR Entry 1 In PACU I 07/26/22 09:51:00 Discharge from PACU 07/26/22 10:35:00 I Last Modified By: Warner Bolton RN 07/26/22 10:38:23 Finalized By: Warner Bolton RN Document Signatures Signed By: Warner Bolton RN 07/26/22 10:38 [facility] MAGR Postoperative Recordon 07-26-2022 MAGR Postoperative Record MAGR Phase II Record Summary Primary Physician: Marisa Ramos DO Finalized Date/Time: 07/26/22 12:01:17 Pt. Name: RADHA CUADRA D.O.B./Sex: 1945 FEMALE Med Rec #: [id number] Physician: Marisa Ramos DO Financial #: [id number] Pt. Type: D Room/Bed: / Admit/Disch: 07/26/22 [...] Signed By: Annamarie Samuels RN 07/26/22 12:01 [facility]-2022 [facility] Pre[facility] MAGR Pre-Op Record Summary Primary Physician: Marisa Ramos DO Finalized Date/Time: 07/26/22 07:44:03 Pt. Name: CHRISTIRADHA/Sex: 1945 FEMALE Med Rec #: [id number] Physician: Marisa Ramos DO Financial #: [id number] Pt. Type: D Room/Bed: / Admit/Disch: 07/26/22 [...] By: Kimberley Le RN 07/26/22 07:[address] [facility] Operative Report - Surgeon/P pablo 07-26-2022 [...] Estimated blood loss: 50 Complications: None Findings: Xbsq-gs-xomy in the glenohumeral joint Procedure summary: Patient [...] on: 07/26/2022 09:35 EDT] Marisa Ramos DO [facility] Patient Handouton 07-26-2022 Patient Handout [...] or concerns, please call the office at [phone] 7. Follow up as scheduled [facility] XR Shoulder 1 View Lefton [...] MD 07/27/22 4:01 pm Technologist: JORDON RUVALCABA [facility] Comment on above: Order Comment: chey lt status post shoulder replacement Progress Note - Nurseon 07-12 Progress Note - Nurse Pre-op call made to pt. Pt states understanding of arrival time of 0600 on 07/26/22 and NPO after MN. [Electronically Signed on: 07/23/2022 09:27 EDT] Sunshine GOLDMAN, Shantel Byrnes [Verified on: 07/23/2022 09:27 EDT] Shantel Gonsalez RN [facility] Coding Summaryon 07-02-2022 Coding Summary HTMLBase 64 RzftramgJDt9iCx+PGhlYWQ+PE1F BHWfD93cqNYmmS3RC1rZXS5DSSLN TQNVMT3WUO5bqQM5XOphN8SertYo AvmhnAXbRQ87APl2XRW3tUsoUMav oL7erUHcK8x3MsDaNC52bU16BFej UICfYzQ7VlAepjozoMIz B7xyYqRwuDDfNfw+PHRhYmxlIHdp WJKkBVokTZScAkIneCcqJW8uQu1x ZGVyLWNvbGxhcHNlOiBj d9bjMDRuAFoqTI7sdJsnW4NgiBY2 HYGem5i9Fr76zHN+YHCoBHI9xJnf UDdyg908FoRhq5xcNKC8 sHUwDHdnSZD6Y85on9K0IDXcQYOf YMF6xNH2dX6dzPshhvnoO4BtqFLo MfF2EBL1eRTloP4xkRsx xejfxO8eUni+V93XCE8VZKYNTB0O Zkp6I2ZuGatlmBD+SZ19YOKyAH20 pVWyuBGwb7qeeJh4ErYg ZSIxPOR5sUneBUcno2CwXTRfC59r yJTtb5G5JJNeeBgbrOBvUlJcgPX0 fM9uIZutdxaaz6qetvxw Tcjyk9wthg24fM45P58yYAxfGWCh OBG3XJEzCSNmhBtxvh1wjY5hTa6+ WWfbv7emq8fzzZk9WeCc PUBgrwQbhLmrVKL7v9VmJm30P7Bv oTkpc6YwKwf4lu12iWNvz9O2cAE1 GUyiSAVccQ6dONkhNxK8 DEEvScZfsR91fDXkTCdiMx6nnZmn pNxlWQ8kEXEyrdckKNLopO9aFRPd bWAnfMzlVG1zBBTpcvjs o883YoRaXPI9EZVcbMHfB2FalG7t HaTtPKCtIZAxS5BhtDPtCXavA325 YCgmVhT2BMPcuwGzV2Cl ZUWjjSqwBaH1k0W9Pz5Qq4Popvzn YVJ3NZvkXMW9VgYdMvVmHwE9A2Km Lmp1ZGHhlKqzAH5sD3Ng IHWshpuwngatiCF8LKQwALOsbD12 yRRrQDttXd8zy5V1r552FDNiELWw qP52Py2pqLjwPFHeaYMH rM1pdjwai9fwcuroQtAyFZGbFXk4 NUg1RPTruTxqViOnESM3UrX7ASS3 tBXgoD5xpTuvsbxcuR5p Oyc+B98hxO0gQRX1OMT3hholFCEi iyCgJK57AC58H2YkCxfwmPYcrKX+ KVXpfuTiqOrbBD3bLaZv x4wzu6XzUOkeR0VsKIMoJBvmTjp4 ETNcONM6dUZ3wA4eYMPtZMioo8H2 aCX9D7ZjcaCmlo3am4tk VODgNZntI01ngCAug9J7HTYivJS1 PDGdvAjeQsAgxV78Cpo+PGNvbGdy s9CxEbuag1psr8oawYv3 QlFzKWPqhpFlfOktFMG3p2XdHb74 P65bVDvcITJpYCSkLZQbYDTkeIsd lu8wvB5qVd4+PGNvbCB3 wIP2hV6yQIEcHgZ3OGkvI934LtNd wDQdGulgj4rtm9ynpQw8HuNpQDOe foUslIguSTB9n3SxQf21 U13kHDelYXWsMZEuFEBqGFMjqUok vg6kpS0bJm4+BH4cy2xtjn12mL08 dHI+BHYfFJK7sPzxMAln YELdiZ7mJClvYwH3HDReYsRxnG17 pEPkIQrxGj8ybVzjzJwxHE3eUQVu epqmu645JpUqd9gsSZXo cKTnBWrwGEJ8H02gj8R5FLKnATBm QFM1bNN4kL9wcMidxscaqALntZdg chLtaGhzFAafVRfjK484 IHRvcDsnPlBhdGllbnQgTmFtZTo8 T6GaKbf4XLJrdPsyCF1yaEOjZYfa Ak4bfMybsTjrSV2pGJGt beykk757QrVuh1joYAUgdPWzOTic CHQ7Y91dl0R6EPIcZAGpDHS3bCZ3 lO0zdKvvdrhucBPkeIrk jrJmpRobNKnqEKbrP753WZVtdXsk CjZslfDtMWXfbMV4ZY90YK86lNCi b3L7fOV8H1ZfDEAilsvx wajcpPD2LCHiWOExgI92Lh4vnVwj Vj7aUHBqZVF0OFBurDArU9InrO0j WdThQJCqPDIrF5MdpEAk EPatA098IMknMxI9NOFdsvGdW1Sd POAumYuyZlT0i1X7Tu2RT1L7DE34 BE84uTJnr2N3gPG1Z6Le PUReeijwluhsgLQ3LUFuBLIpzV49 Qz4bsUzrQb4qYPZdHKT6DEXenPYz Z1LhnC2gBjOgHRKiHSId G7QdjRWsZAynF919ZWngIyF8EUBy idWjE5WfMSByrVgoLmP6h5H3Vs0I EIg2GW87HO17bLZxn5T7 cGS1A5XnXSErzxlptwirrLN4GEBw YKHqaE41Rc9fgVahIe2sFWSzNUG6 YGOnzNFoB0NeiK8kKuCg TBSvCWPzO2QyuLXcZNnxX199UDwp WhI8PHCcxvHrJ7NkXJZkpRajJrG6 c5T8Fa8AWPSxHO50SZC6 yCP1TK06TY35Q5VjHvrvlYErqGB+ PHRhYmxlIHdpZHRoPScxMDAlJyBz sCoiZW4vLz3zDNQfCICl bXmhpPRqNnJxi3veSGJiDXwyFB3l lPswY6JnoFH3XJBkg8n7Ua32F65n L1YwvSJ+RTTryRT9zBD5 eR3jWtMoDsR8QMzmY652XuOkbLPm Yghzi2vpo8doeFk5IjU2MYDzioJo lSwtCQF8p3VbPm88X79w JKkmEOIzBPObBXLzAOZkeOwddi2l cN6gKz5+XATvzTX6yFJ6sR6xIxIj CjO3QVheG752NsRvwTYo Mwmex9pok1uhbWt2IrBjXJLzrzTo fAuiSYS7j9CoYn21U5BxgQtci1Do Ppq2sj11mOYrj8X3pOJ7 S6WbQBWweltthVRnaXtwOA9qGHWv mttpGNSqkL5sHRFoN1q8WtOxHcT8 PPmxZ5FyllY1NMFkmEWc YYiuYNY5G54kv7L4TIGwYAIhXUA8 sOB9bH7yeRozyqtbtPJrlVktbbKr jFpuDLqjXOajX530YPPj aCuxRJTivD5tTVCgdCJdyYjoVP6a OXMuebbaBhfGDHLtILbJRTlsYQ6B GCp5Y8OvJeo6ZHYgtLnm OU6jnJRsNShpWi1rvLkbaPiwBJ1n ZXKowvogKRErsM0hPBHdnSIoaRix GT6bDWVgprbha519CwIa POC9GWAbaWDtP6GibD6pUlIyHGWw VPOrY8XliUOyFRbhA632AZlwMaN6 SXYkhgIcR0BjCWMlbEvu PqE7l9L4Mt8tXc5xHh2tAZS1SL66 RS16uZHmi3A0rEI4I4KtBDAifkeq okmwiSX8COYfDLHbnL29 sNEhZJqaWo7sq8N0x520DATrOTCa yL52Ra7qrPgvJZDzxCZEqQ6fkwdc g2zwlsnwPsQeDOCwUGd7 UQk6WFEpqGjrXbXiSSI0XgP4CSA8 xATjqH3fwQvljttxzJ4pXes+Nzgg NSGbeaK2V8RlOkj7URRf jYxrTQ2qnDJbLPvkVw3irJwfwDhp TF7rMIIdmktzZPLdzG0jNNKafEJa mIskAM2aBYGaesrai421 FkGyJHL5DXNteNEzZ1DrmK3qTcWe AADdSFKuS0GtgVQqGSuwH104TTcg SpE1CJApaeOaF0JwFKCt nLfzYzX3u3W8Db4NWO7IKJB7G9Kd Pxx4DXVuvTvoSA1waSBqBPrvBh5l fZvjoXybWZ9fEUNuttwa JAUeaK9mRAHycUWjtUbkPK7nNSDa cofaz527QoPyURF2YONbpBEvS8Im oJ9eBdPuDQLsAWQvM2Eh yPMiCYeuT699UUawTjC4NLLogcGi B2FjVNCyfWyxFmC8q4T2Kr9LMZql dGQ+KE12lk97S9DgRmya Pna8CYPcLDY5bGU6oC0iMKTdKNeg k7J8eMO3Q4QmjoUtqi3ec7xhYKVi SExlT17iqZOkv2E6ZRMk pDS4LWIndTqyPpNgeB57Jrp+PGNv kSpmo9HnVjplo1ims2ivqHu1JqTb BFUiucWlbZqiHKV4w2Sl Tn73B53dRQteYAReOEKtJDHaGTFy hWwfhg7nmK2wJa6+TGZezIZ7vSD3 eL2eJcUwAgP2TXrtM034 OnHcoWXrTpwlt0dei7ueyJp5WfWm HUTvzeZcgXafKBZ3o0KyWo01V2Fp gAwem5KvCvn8th28hDMa i7D7uRE8X4FwGXXazbdxrWUqgSta OF2yAGHhdedqIIDsmP6lBTTzH9m4 QaHvBvJ2QIrvQ1KpibN1 BROguPSyCXKmpEKHwH0ukcfah3fw tuvbOfFgNEQtAOl2KVx4VVKspKif TxSaKHT5UqD7OMY0oJDb xA0taCdqduotnM0bOiu+JMv5q3ms nXYxNH3xxVU7FP82PW22iCSgr9J8 kNI7G9MoGCVzvgooykbx tCH7WTLyFFEijD95Bk6ixQowZz6h KFOlUGT6LWTcnLNwQ5WbqP3wSbGc AIBaMSHpX1PmxJVaJXtr Y178MLxqHxX8TILnrtThT4AtDDGy nHbfOiI4c1C4Um2MLV66DW49OC33 xRJos2T8kUU9O8KiFPPv hmdwcdikwUT3LWMhNNFgzD60Js5o zEkvNw1wULPhQMA6WSHrdBSrL5Ik vJ0iVeIrTXWtFLBiQ3Gp rCKdLRhdL613BIjlHcV2IUObtzCg Q9YfTNGgyCxhYhY7m0R1Wm1VYz88 EO50VS15eXAuh3R9yVK7 B3AjDGVoyimxtowkwKQ5STRzAJKu lI13Vz9dzVbqJo7hFQHpQLK6WBCs dKNoK9SulN8eHnFpJISh MIQxS4KhaEXvTCpwF987RVbsUiW8 UWIwjaFeH8SyLRDgcGrxDnS7y2Q4 Ua1YQEmepfl9S7CqWncc dHI+WO57EHDbUA79zEZgbHObv6hq nCv8LfPxQYDwYTF8aBzePVdjl3Pf GMIhT13tvHTsa3M1SDSf bGx (more content not included)... [facility] C MRSA Screenon 06-30-2022 C MRSA Screen Negative [facility] Comment on above: Performed By: #### 1 [id number] ####[facility] (DEFAULT)[address] [place] [id number] Progress Note - Nurseon 06-12 Progress Note - Nurse Dr. Castro reviewed PAT notes for upcoming surgery 07/26/2022. No new orders at this time [Electronically Signed on: 06/30/2022 11:45 EDT] Annamarie Samuels RN [Verified on: 06/30/2022 11:45 EDT] Annamarie Samuels RN [facility] Provider Orderson 06-30-2022 Provider Orders [id number] [facility] .Auto Diff 1on 06-29-2022 Auto Moore % 10 % Normal 03-25 [facility] Comment on above: Performed By: #### 7 [id number], [id number] ####[facility] (DEFAULT)[address] [place] [address] Baso Abs# 0.0 x10 Normal 0.0-0.2 [facility] Comment on above: Performed By: #### 7 [id number], [id number], [id number] ####[facility] (DEFAULT)[address] [place] [address] 27605 Basophils/100 WBC (Bld) 0.7 % Normal 0.2-2.0 [facility] Comment on above: Performed By: #### 7 [id number], [id number], [id number] ####[facility] (DEFAULT)[address] [place] [address] 01561 Eos Abs# 0.6 x10 High 0.0-0.4 [facility] Comment on above: Performed By: #### 7 [id number], [id number], [id number] ####[facility] (DEFAULT)[address] [place] [address] 17550 Eosinophils/100 WBC (Bld) 8.5 % High 0.9-4.0 [facility] Comment on above: Performed By: #### 7 [id number], [id number], [id number] ####[facility] (DEFAULT)[address] [place] [address] 55636 Lymph Abs# 1.6 x10 Normal 1.3-2.9 [facility] Comment on above: Performed By: #### 7 [id number], [id number], [id number] ####[facility] (DEFAULT)[address] [place] [address] 37596 Lymphocytes/100 WBC (Bld) 24 % Normal 14-48 [facility] Comment on above: Performed By: #### 7 [id number], [id number], [id number] ####[facility] (DEFAULT)[address] [place] [address] 78543 Moore Abs# 0.7 x10 Normal 0.0-0.8 [facility] Comment on above: Performed By: #### 7 [id number], [id number], [id number] ####[facility] (DEFAULT)[address] [place] [address] 36764 Neut Abs# 3.8 x10 Normal 1.5-9.2 [facility] Comment on above: Performed By: #### 7 [id number], [id number], [id number] ####[facility] (DEFAULT)[address] [place] [address] 40714 Neutrophils/100 WBC (Bld) 57 % Normal 44-88 [facility] Comment on above: Performed By: #### 7 [id number], [id number], [id number] ####[facility] (DEFAULT)[address] [place] [address] 67001 BMP Standardon 06-29-2022 eGFR Non AA 33 mL/min/1.73m2 Invalid Interpretation Code [facility] Comment on above: Performed By: #### 7 [id number], [id number], [id number] ####[facility] (DEFAULT)[address] [place] [address] 16640 eGFR AA 40 mL/min/1.73m2 Invalid Interpretation Code [facility] Comment on above: Performed By: #### 7 [id number], [id number], [id number] ####[facility] (DEFAULT)[address] [place] [address] 98587 Anion gap [Moles/Vol] 8.9 mmol/L Normal 5.0-19.0 [facility] Comment on above: Performed By: #### 7 [id number], [id number], [id number] ####[facility] (DEFAULT)[address] [place] [address] 75738 Calcium [Mass/Vol] 9.3 mg/dL Normal 8.9-10.3 [facility] Comment on above: Performed By: #### 7 [id number], [id number], [id number] ####[facility] (DEFAULT)[address] [place] [address] 36549 Chloride [Moles/Vol] 102 mmol/L Normal 101-111 [facility] Comment on above: Performed By: #### 7 [id number], [id number], [id number] ####[facility] (DEFAULT)[address] [place] [address] 37561 CO2 [Moles/Vol] 28 mmol/L Normal 21-32 [facility] Comment on above: Performed By: #### 7 [id number], [id number], [id number] ####[facility] (DEFAULT)[address] [place] [address] 16803 Creatinine [Mass/Vol] 1.53 mg/dL High 0.60-1.30 [facility] Comment on above: Performed By: #### 7 827594, [id number], [id number] ####[facility] (DEFAULT)[address] [place] [address] 23684 Glucose [Mass/Vol] 107.0 mg/dL Normal 74.0-118.0 [facility] Comment on above: Performed By: #### 7 599791, [id number], [id number] ####[facility] (DEFAULT)[address] [place] [address] 10170 Osmolality 279 mOsm/L Invalid Interpretation Code [facility] Comment on above: Performed By: #### 7 [id number], [id number], [id number] ####[facility] (DEFAULT)[address] [place] [address] 55964 Potassium [Moles/Vol] 3.9 mmol/L Normal 3.6-5.1 [facility] Comment on above: Performed By: #### 7 892987, [id number], [id number] ####[facility] (DEFAULT)[address] [place] [address] 93311 Sodium [Moles/Vol] 135.0 mmol/L Low 136.0-[address] [facility] Comment on above: Performed By: #### 7 961090, [id number], [id number] ####[facility] (DEFAULT)[address] [place] [address] 49914 Urea nitrogen [Mass/Vol] 36 mg/dL High 8-26 [facility] Comment on above: Performed By: #### 7 [id number], [id number], [id number] ####[facility] (DEFAULT)[address] [place] [address] 77281 Urea nitrogen/Creatinine [Mass ratio] 23.5 mg/mg High 4.6-16.2 [facility] Comment on above: Performed By: #### 7 582350, [id number], [id number] ####[facility] (DEFAULT)[address] [place] [address] CBC w/ Auto Diffon Erythrocyte distribution width (RBC) [Ratio] 12.8 % Normal 11.5-15.0 [facility] Comment on above: Performed By: #### 7 073059, [id number], [id number] ####[facility] (DEFAULT)[address] [place] [address] Hematocrit (Bld) [Volume fraction] 36.4 % Normal 33.7-40.4 [facility] Comment on above: Performed By: #### 7 827572, [id number], [id number] ####[facility] (DEFAULT)[address] [place] [address] Hemoglobin (Bld) [Mass/Vol] 12.2 g/dL Normal 11.3-15.9 [facility] Comment on above: Performed By: #### 7 963238, [id number], [id number] ####[facility] (DEFAULT)[address] [place] [address] Man Diff? Auto Invalid Interpretation Code [facility] Comment on above: Performed By: #### 7 [id number], [id number], [id number] ####[facility] (DEFAULT)[address] [place] [address] MCH (RBC) [Entitic mass] 32 pg Normal 24-34 [facility] Comment on above: Performed By: #### 7 522648, [id number], [id number] ####[facility] (DEFAULT)[address] [place] [address] MCHC (RBC) [Mass/Vol] 33 g/dL Normal 26-37 [facility] Comment on above: Performed By: #### 7 383274, [id number], [id number] ####[facility] (DEFAULT)[address] [place] [address] MCV (RBC) [Entitic vol] 97 fL Normal 81-100 [facility] Comment on above: Performed By: #### 7 063511, [id number], [id number] ####[facility] (DEFAULT)[address] [place] [address] 01535 Platelet 336 x10 Normal 138-427 [facility] Comment on above: Performed By: #### 7 844643, [id number], [id number] ####[facility] (DEFAULT)[address] [place] [address] 59316 Platelet mean volume (Bld) [Entitic vol] 7.2 fL Normal 6.3-10.2 [facility] Comment on above: Performed By: #### 7 609165, [id number], [id number] ####[facility] (DEFAULT)[address] [place] [address] 19021 RBC 3.77 x10 Normal 3.70-5.30 [facility] Comment on above: Performed By: #### 7 471141, [id number], [id number] ####[facility] (DEFAULT)[address] [place] [address] 05387 WBC 6.7 x10 Normal 3.5-10.5 [facility] Comment on above: Performed By: #### 7 711089, [id number], [id number] ####[facility] (DEFAULT)[address] [place] [address] 26574 UA w Culture if Ind Standard on 06-29-[address] [facility] Comment on above: Performed By: #### 1 [id number] #### [facility] (DEFAULT) [address] [place] [address] 13785 Color (U) Yellow Normal [facility] Comment on above: Performed By: #### 1 [id number] #### [facility] (DEFAULT) [address] [place] [address] 12369 Culture? Not Indicated Invalid Interpretation Code [facility] Comment on above: Result Comment: Resu lt created by rule GL_MAGR_ADD_UA_CULT1 Performed By: #### 1 [id number] #### [facility] (DEFAULT) [address] [place] [address] 49864 Glucose (U) [Mass/Vol] Negative Normal [facility] Comment on above: Performed By: #### 1 [id number] #### [facility] (DEFAULT) [address] [place] [address] 58482 Ketones Ql (U) Negative Normal [facility] Comment on above: Performed By: #### 1 [id number] #### [facility] (DEFAULT) [address] [place] [address] 96554 Micro? Not Indicated Invalid Interpretation Code [facility] Comment on above: Result Comment: Resu lt created by rule GL_MAGR_ADD_UA_MICRO Performed By: #### 1 [id number] #### [facility] (DEFAULT) [address] [place] [address] UA Bilirubin Negative Normal [facility] Comment on above: Performed By: #### 1 [id number] #### [facility] (DEFAULT) [address] [place] [address] UA Blood Negative Normal NEGATIVE [facility] Comment on above: Performed By: #### 1 [id number] #### [facility] (DEFAULT) [address] [place] [address] UA Clarity CLEAR Normal CLEAR [facility] Comment on above: Performed By: #### 1 [id number] #### [facility] (DEFAULT) [address] [place] [address] UA Leuk Est Negative Normal NEGATIVE [facility] Comment on above: Performed By: #### 1 [id number] #### [facility] (DEFAULT) [address] [place] [address] 77466 UA Nitrite Negative Normal NEGATIVE [facility] Comment on above: Performed By: #### 1 [id number] #### [facility] (DEFAULT) [address] [place] [address] 54758 UA pH 6.5 Normal 5-8 [facility] Comment on above: Performed By: #### 1 [id number] #### [facility] (DEFAULT) [address] [place] [address] 06551 UA Protein Negative Normal NEGATIVE [facility] Comment on above: Performed By: #### 1 [id number] #### [facility] (DEFAULT) [address] [place] [address] 08366 UA Spec Grav 1.010 Normal 1.001-1.[address] [facility] Comment on above: Performed By: #### 1 [id number] #### [facility] (DEFAULT) [address] [place] [address] UA Urobilinogen 0.2 mg/dL Normal 0.2-1.0 [facility] Comment on above: Performed By: #### 1 [id number] #### [facility] (DEFAULT) [address] [place] [address] Urine Source Clean Catch Normal [facility] Comment on above: Performed By: #### 1 [id number] #### [facility] (DEFAULT) [address] [place] [address] MRI Shoulder w/o Lefton 04-15 MRI Shoulder [...] by Adarsh Adams on 05/11/2022 1041 Normal [facility] SCREENING MAMMOGRAM W/ARABELLA, BILATERAL*on 11-20-2021 SCREENING [...] VERY IMPORTANT TO YOUR HEALTH. THE CURRENT [employer] [employer] GUIDELINES RECOMMENDS ANNUAL MAMMOGRAPHY BEGINNING AT AGE 39 THIS FACILITY USES A REMINDER SYSTEM TO ENSURE ALL PATIENTS RECEIVE REMINDER NOTIFICATIONS AT THE APPROPRIATE TIME BASED ON THE RECOMMENDATIONS OF THIS EXAM. Report reported and signed by Alejandro Forte on 11/20/2021 0949 Normal [facility] Comprehensive Metabolic Pane george 06-10-2021 Albumin [Mass/Vol] 4.2 g/dL Normal 3.6-5.[address] [facility] Comment on above: Performed By: #### C JARVIS DONIS #### [facility] [address] [place], [place] [id number] Albumin/Globulin [Mass ratio] 1.7 {ratio} Normal 1.0-2.5 [facility] Comment on above: Performed By: #### C JEWELS LIPTeresa #### [facility] [address] [place], [place] [id number] ALP [Catalytic activity/Vol] 82 U/L Normal 35-119 [facility] Comment on above: Performed By: #### C JEWELS LIPD #### [facility] [address] [place], [place] [id number] ALT [Catalytic activity/Vol] 15 U/L Normal 6-33 [facility] Comment on above: Result Comment: 02/11 Female reference range changed. Performed By: #### C JEWELS LIPD #### [facility] [address] [place], [place] [id number] Anion gap [Moles/Vol] 15 mmol/L Normal 12-20 [facility] Comment on above: Result Comment: Effe ctive 03/19/2019 reference range changed. Performed By: #### C JEWELS LIPD #### [facility] [address] [place], [place] [id number] AST [Catalytic activity/Vol] 21 U/L Normal 9-34 [facility] Comment on above: Performed By: #### C JEWELS LIPD #### [facility] [address] [place], [place] [id number] BUN/CREA 28 Ratio High 6-22 [facility] Comment on above: Performed By: #### C JEWELS LIPD #### [facility] [address] [facility] [place] [id number] Calcium [Mass/Vol] 9.3 mg/dL Normal 8.6-10.2 [facility] [employer] [facility] Comment on above: Performed By: #### C JEWELS, LIPD #### [facility] [address] [facility] [place] [id number] Chloride [Moles/Vol] 106 mmol/L Normal 98-107 [facility] [place] [facility] Comment on above: Performed By: #### C JEWELS LIPD #### [facility] [address] [place] [id number] CO2 [Moles/Vol] 24 mmol/L Normal 20-31 [facility] Comment on above: Performed By: #### C JEWELS, LIPD #### [facility] [address] [place], [place] [id number] Creatinine [Mass/Vol] 1.1 mg/dL Normal 0.6-1.4 [facility] Comment on above: Performed By: #### C JEWELS LIPD #### [facility] [address] [facility] [place] [id number] eGFRAA 58 mL/min/1.73m2 Low >60 [facility] Comment on above: Performed By: #### C JEWELS, LIPD #### [facility] [address] [facility] [place] [id number] eGFRNAA 48 mL/min/1.73m2 Low >60 [facility] [employer] Comment on above: Performed By: #### C JEWELS LIPD #### [facility] [address] [facility] [place] [id number] Globulin (S) [Mass/Vol] 2.5 g/dL Normal 1.9-3.7 [facility] [employer] Comment on above: Performed By: #### C JEWELS, LIPD #### [facility] [address] [place], [place] [id number] Glucose [Mass/Vol] 94 mg/dL Normal 65-99 [facility] [employer] Comment on above: Result Comment: For FASTING Glucose --- ADA reference ranges: Normal 65-99 mg/dl Prediabetes 100-125 Diabetes >/= 126 Performed By: #### C MP, LIPD #### [facility] [address] [facility] [place] [id number] Potassium [Moles/Vol] 4.4 mmol/L Normal 3.5-5.5 [facility] [employer] Comment on above: Performed By: #### C MP, LIPD #### [facility] [address] [place] [id number] Protein [Mass/Vol] 6.7 g/dL Normal 6.1-8.1 [facility] [employer] Comment on above: Performed By: #### C MP, LIPD #### [facility] [address] [facility] [place] [id number] Sodium [Moles/Vol] 141 mmol/L Normal 135-146 [facility] [employer] Comment on above: Performed By: #### C MP, LIPD #### [facility] [address] [facility] [place] [id number] TBIL <0.3 Normal [facility] Comment on above: Performed By: #### C MP, LIPD #### [facility] [address] [facility] [place] [id number] Urea nitrogen [Mass/Vol] 32 mg/dL High 7-25 [facility] [employer] Comment on above: Performed By: #### C MP, LIPD #### [facility] [address] [place], [place] [id number] Lipid Panelon 06-10-2021 Cholesterol [Mass/Vol] 237 mg/dL High 125-200 [facility] [employer] Comment on above: Result Comment: Low risk < 200mg/dL Borderline risk 201-239 mg/dl High risk > or equal to 240 Performed By: #### C MP, LIPD #### [facility] [address] [facility] [place] [id number] Cholesterol in HDL [Mass/Vol] 100 mg/dL Normal >40 [facility] [employer] Comment on above: Result Comment: High Cardiovascular Risk HDL <40 mg/dL Low Cardiovascular Risk HDL > or equal to 60 mg/dl Performed By: #### C MP, LIPD #### [facility] [address] [facility] [place] [id number] Cholesterol in LDL [Mass/Vol] 124 mg/dL Normal [facility] Comment on above: Result Comment: LDL ATP III CLASSIFICATION LDL less than 100 mg/dl Optimal LDL 100-129 mg/dl Near or above optimal LDL 130-159 Borderline high LDL 160-189 High LDL greater than 189 mg/dl Very High Performed By: #### C MP, LIPD #### [facility] [address] [place], [place] [id number] Cholesterol in VLDL [Mass/Vol] 13 mg/dL Normal [facility] Comment on above: Performed By: #### C MP, LIPD #### [facility] [address] [place], [place] [id number] Cholesterol.total/Ch olesterol in HDL [Mass ratio] 2 {ratio} Normal [facility] Comment on above: Performed By: #### C MP, LIPD #### [facility] [address] [place], [place] [id number] Triglyceride [Mass/Vol] 67 mg/dL Normal 30-150 [facility] Comment on above: Result Comment: TRIG ATPIII CLASSIFICATIONS TRIG less than 150 mg/dl Normal TRIG 150-199 mg/dl Borderline High TRIG 200-500 mg/dl High TRIG greather than 500 mg/dl Very High Performed By: #### C MP, LIPD #### [facility] [address] [place], [place] [id number] ECHOCARDIO M/2D COMPLETEon 0 10-24-2020 ECHOCARDIO M/2D COMPLETE Patient: RADHA CUADRA Exam Date: 10/24/2020 : 1945 Gender:F Ordering : DR SHARI MCKEON M.D. Admission #: [id number] Family : Order #: [id number] CLICK HERE TO VIEW EXAM ECHOCARDIOGRAM REPORT [...] Area(A4C): 13.90 cm2 Left Atrium Systolic Volume(A2C): 06353 mm3 Left Atrium Systolic Volume(A4C): 32129 mm3 Mitral Valve MV E to A Ratio: 1.10 Mitral Valve A-Wave Peak Velocity: 68.60 cm/s Mitral Valve E-Wave Peak Velocity: 74.50 cm/s Deceleration Time: 259 ms Right Ventricle Aorta AO Root Diam: 2.60 cm Aortic Valve Peak Velocity (Antegrade Flow): 161.00 cm/s, 230.00 cm/s AoV Area (Peak Daniel): 1.93 cm2 AoV Area (VTI): 1.90 cm2 Deceleration [place]: 1880 mm/s2 Pressure Half-Time: 528 ms Peak [...] M.D. on 10/24/2020 at 19:17 Normal [facility] HEMOGLOBINon 09-30-2020 Hemoglobin (Bld) [Mass/Vol] 12.3 g/dL Normal 12.0-16.0 [facility] Comment on above: Performed By: #### H GB #### [facility] [address] [place], [place] [address] Geraldo Gaitan H PYLORI TISSUEon 02-01-2020 H PYL TISSUE, UREASE Negative Normal NEGATIVE [facility] Comment on above: Performed By: #### H GB #### [facility] [address] [place], [place] [address] Geraldo Gaitan COVID-19 PCRon 01-27-2020 SARS-CoV-2 (COVID-19) RNA VIVIENNE+probe Ql (Unsp spec) Not detected Normal Not Detected [facility] Comment on above: Result Comment: This nucleic acid amplification test was developed and its performance characteristics determined by [employer]. Nucleic acid amplification tests include PCR and [...] Performed By: #### C VDSTAT, CVDPCR #### [facility] [address] [place] [address] Geraldo Gaitan PRIORITY COVID PROCESSINGon 01-27-2020 Comment Comment Normal [facility] Comment on above: Result Comment: Rece ived Performed By: #### C VDSTAT, CVDPCR #### [facility] [address] [place] [address] Geraldo Gaitan CULTURE BLOODon 01-08-2020 Microscopic examination [...] Trimethoprim/Sulfamethoxazol e <=20 S F Normal [facility] Comment on above: Performed By: #### H GB #### [facility] [address] [place] [address] Geraldo Gaitan BLOOD CULTURE ID PANELon A. baumannii Not detected Normal [facility] Comment on above: Performed By: #### B MIRYAM #### [facility] [address] [place] [address] Geraldo Gaitan BCID CONTROLS PASSED Normal [facility] Comment on above: Performed By: #### B MIRYAM #### [facility] [address] [place] [address] Geraldo Kandy BCIDBTHD BLOOD CULTURE BOTTLE INFORMATION [facility] Comment on above: Performed By: #### B MIRYAM #### [facility] [address] [place] [address] Geraldo Kandy BCIDHD1 ANTIMICROBIAL RESIST ANCE GENES Normal [facility] Comment on above: Performed By: #### B MIRYAM #### [facility] [address] [place] [address] Geraldo Kandy BCIDHD2 SEE BELOW [facility] Comment on above: Result Comment: KPC- carbapenem resistance gene, mecA- methecillin resistance gene, van A/B- vancomycin resistance gene Note: Antimicrobial resitance can occur via multiple mechanisms. A Not Detected result for the [employer] antomicrobial resistance gene assays does not indicate antimicrobial susceptibility. Subculturing is required for specis identificationand susceptibility testing of isolates. Performed By: #### B MIRYAM #### [facility] [address] [place] [address] Geraldo Kandy BCIDHD3 Positive [facility] Comment on above: Performed By: #### B MIRYAM #### [facility] [address] [place] [address] Geraldo Kandy BCIDHD3 Negative [facility] Comment on above: Performed By: #### B MIRYAM #### [facility] [address] [place] [address] Geraldo Kandy BCIDHD5 YEAST Normal [facility] Comment on above: Performed By: #### B MIRYAM #### [facility] [address] [place] [address] Geraldo Kandy BCIDHD6 SEE BELOW [facility] Comment on above: Result Comment: Note : All genus and species BCID [employer] results will be verified post subculturing via Maldi-Tof MS testing methodology. Performed By: #### B MIRYAM #### [facility] [address] [place] [address] Geraldo Kandy Bottle Set: Set 2 [facility] Comment on above: Performed By: #### B MIRYAM #### [facility] [address] [place] [address] Geraldo Kandy Bottle: Aerobic Normal [facility] Comment on above: Performed By: #### B MIRYAM #### [facility] [address] [place] [address] Geraldo Kandy Naomi albicans Not detected Normal [facility] Comment on above: Performed By: #### B MIRYAM #### [facility] [address] [place] [address] Geraldo Kandy Naomi glabrata Not detected Normal [facility] Comment on above: Performed By: #### B MIRYAM #### [facility] [address] [place] [address] Geraldo Kandy Naomi Krusei Not detected Normal [facility] Comment on above: Performed By: #### B MIRYAM #### [facility] [address] [place] [address] Geraldo Kandy Naomi Parapsilosis Not detected Normal [facility] Comment on above: Performed By: #### B MIRYAM #### [facility] [address] [place] [address] Geraldo Kandy Naomi Tropicalis Not detected Normal [facility] Comment on above: Performed By: #### B MIRYAM #### [facility] [address] [place] [address] Geraldo Kandy E. Cloacae complex Not detected Normal [facility] Comment on above: Performed By: #### B MIRYAM #### [facility] [address] [place] [address] Geraldo Kandy Enterobacteriaceae Detected Invalid Interpretation Code [facility] Comment on above: Performed By: #### B MIRYAM #### [facility] [address] [place] [address] Geraldo Kandy Enterococcus Not detected Normal [facility] Comment on above: Performed By: #### B MIRYAM #### [facility] [address] [place] [address] Geraldo Kandy Escheria coli Detected Normal [facility] Comment on above: Performed By: #### B MIRYAM #### [facility] [address] [place] [address] Geraldo Kandy K. oxytoca Not detected Normal [facility] Comment on above: Performed By: #### B MIRYAM #### [facility] [address] [place] [address] Geraldo Kandy K. pneumoniae Not detected Normal [facility] Comment on above: Performed By: #### B MIRYAM #### [facility] [address] [place] [address] Geraldo Kandy KPC Resistant Gene Not detected Normal [facility] Comment on above: Performed By: #### B MIRYAM #### [facility] [address] [place] [address] Geraldo Kandy List. monocytogenes Not detected Normal [facility] Comment on above: Performed By: #### B MIRYAM #### [facility] [address] [place] [address] Geraldo Kandy mecA Resistant Gene Not detected Normal [facility] Comment on above: Performed By: #### B MIRYAM #### [facility] [address] [place] [address] Geraldo Kandy Proteus Not detected Normal [facility] Comment on above: Performed By: #### B MIRYAM #### [facility] [address] [place] [address] Geraldo Kandy Pseud. aeruginosa Not detected Normal [facility] Comment on above: Performed By: #### B MIRYAM #### [facility] [address] [place] [address] Geraldo Kandy Seratia marcescens Not detected Normal [facility] Comment on above: Performed By: #### B MIRYAM #### [facility] [address] [place] [address] Geraldo Kandy Site: R AC Normal [facility] Comment on above: Performed By: #### B MIRYAM #### [facility] [address] [place] [address] Geraldo Kandy Staph. aureus Not detected Normal [facility] Comment on above: Performed By: #### B MIRYAM #### [facility] [address] [place] [address] Geraldo Kandy Staphylococcus Not detected Normal [facility] Comment on above: Performed By: #### B MIRYAM #### [facility] [address] [place] [address] Geraldo Gaitan Strep. agalactiae Not detected Normal [facility] Comment on above: Performed By: #### B MIRYAM #### [facility] [address] [place] [address] Geraldo Gaitan Strep. pneumoniae Not detected Normal [facility] Comment on above: Performed By: #### B MIRYAM #### [facility] [address] [place] [address] Geraldobhumi Gaitan Strep. pyogenes Not detected Normal [facility] Comment on above: Performed By: #### B MIRYAM #### [facility] [address] [place] [address] Geraldobhumi Gaitan Streptococcus Not detected Normal [facility] Comment on above: Performed By: #### B MIRYAM #### [facility] [address] [place] [address] Geraldo Gaitan Aicha/B Resist. Gene Not detected Normal [facility] Comment on above: Performed By: #### B MIRYAM #### [facility] [address] [place] [address] Geraldobhumi Gaitan CBC AUTO DIFFon 01-02-2020 BASO # 0.0 103/ul Normal 0.0-0.1 [facility] Comment on above: Performed By: #### C BC #### [facility] [address] [place] [address] Geraldo Gaitan Basophils/100 WBC (Bld) 0.3 % Normal 0.2-2.0 [facility] Comment on above: Performed By: #### C BC #### [facility] [address] [place] [address] Geraldo Kandy EO # 0.0 103/ul Normal 0.0-0.7 [facility] Comment on above: Performed By: #### C BC #### [facility] [address] [place] [address] Geraldo Kandy Eosinophils/100 WBC (Bld) 0.3 % Critically low 0.9-7.0 [facility] Comment on above: Performed By: #### C BC #### [facility] [address] [place] [address] Geraldo Gaitan Erythrocyte distribution width (RBC) [Ratio] 12.6 % Normal 11.0-15.0 [facility] Comment on above: Performed By: #### C BC #### [facility] [address] [place] [address] Geraldo Gaitan Hematocrit (Bld) [Volume fraction] 42.7 % Normal 36.0-48.0 [facility] Comment on above: Performed By: #### C BC #### [facility] [address] [place] [address] Gerlado Gaitan Hemoglobin (Bld) [Mass/Vol] 13.6 g/dL Normal 12.0-16.0 [facility] Comment on above: Performed By: #### C BC #### [facility] [address] [place] [address] Geraldobhumi Gaitan IG # 0.04 10e3/ul Critically high 0.00-0.03 [facility] Comment on above: Performed By: #### C BC #### [facility] [address] [place] [address] Geraldo Kandy IG % 0.3 % Normal 0.0-0.5 [facility] Comment on above: Performed By: #### C BC #### [facility] [address] [place] [address] Geraldo Kandy LYMPH # 0.5 103/ul Critically low 1.2-3.8 [facility] Comment on above: Performed By: #### C BC #### [facility] [address] [place] [address] Geraldo Gaitan Lymphocytes/100 WBC (Bld) 4.4 % Critically low 20.5-60.0 [facility] Comment on above: Performed By: #### C BC #### [facility] [address] [place] [address] Geraldo Gaitan MANUAL DIFF REQ NO Normal [facility] Comment on above: Performed By: #### C BC #### [facility] [address] [place] [address] Geraldo Gaitan MCH (RBC) [Entitic mass] 30.6 pg Normal 26.7-34.0 [facility] Comment on above: Performed By: #### C BC #### [facility] [address] [id number] Geraldo Gaitan MCHC (RBC) [Mass/Vol] 31.9 g/dL Normal 29.9-35.2 [facility] Comment on above: Performed By: #### C BC #### [facility] [address] [id number] Geraldo Gaitan MCV (RBC) [Entitic vol] 96.0 fL Normal 81.0-99.0 [facility] Comment on above: Performed By: #### C BC #### [facility] [address] [place], [place] [id number] Geraldo Gaitan MONO # 0.8 103/ul Normal 0.3-0.8 [facility] Comment on above: Performed By: #### C BC #### [facility] [address] [place] [address] Geraldo Gaitan Monocytes/100 WBC (Bld) 6.5 % Normal 1.7-12.0 [facility] Comment on above: Performed By: #### C BC #### [facility] [address] [place], [place] [id number] Geraldo Gaitan NEUT # 10.1 103/ul Critically high 1.4-6.5 [facility] Comment on above: Performed By: #### C BC #### [facility] [address] [place], [place] [id number] Geraldo Gaitan Neutrophils/100 WBC (Bld) 88.2 % Critically high 43.0-75.0 [facility] Comment on above: Performed By: #### C BC #### [facility] [address] [place], [place] [id number] Geraldobhumi Gaitan Platelet mean volume (Bld) [Entitic vol] 9.8 fL Normal 9.5-13.5 [facility] Comment on above: Performed By: #### C BC #### [facility] [address] [place], [place] [id number] Geraldo Kandy PLT 254 103/ul Normal 150-450 [facility] Comment on above: Performed By: #### C BC #### [facility] [address] [id number] Geraldo Gaitan RBC 4.45 106/ul Normal 4.20-5.40 [facility] Comment on above: Performed By: #### C BC #### [facility] [address] [id number] [address] HEAD WO CONon 01-02-2020 [...] REMY NESS Date: 2020-01-02 19:00 Normal [facility] CULTURE BLOODon 01-02-2020 Microscopic examination of blood, culture Culture Observations: No growth at 5 days Normal [facility] Comment on above: Performed By: #### H GB #### [facility] [address] [id number] Geraldo Gaitan CULTURE URINEon 01-02-2020 CULTURE URINE Culture Observations : Light growth of mixed genital eliezer.No potential pathogens seen. Normal [facility] Comment on above: Performed By: #### H GB #### [facility] [address] [id number] Geraldo Gaitan ER URINE PROFILEon 0 Bilirubin Ql (U) Negative Normal NEGATIVE [facility] Comment on above: Performed By: #### MELODY CORDOVA #### [facility] [address] [address] Geraldo Kandy Clarity (U) SL CLOUDY Normal [facility] Comment on above: Performed By: #### MELODY CORDOVA #### [facility] [address] [place] [address] Geraldo Kandy Color (U) LT. YELLOW Normal YELLOW [facility] Comment on above: Performed By: #### MELODY CORDOVA #### [facility] [address] [place] [address] Geraldo Kandy ERUAHD A micrscopic examina tion will be performed if indicated. Normal [facility] Comment on above: Performed By: #### MELODY CORDOVA #### [facility] [address] [place] [address] Geraldo Kandy Glucose Ql (U) Negative Normal NEGATIVE [facility] Comment on above: Performed By: #### MELODY CORDOVA #### [facility] [address] [place] [address] Geraldo Kandy Hemoglobin Ql (U) SMALL Normal NEGATIVE [facility] Comment on above: Performed By: #### MELODY CORDOVA #### [facility] [address] [place] [address] Geraldo Kandy Ketones Ql (U) Negative Normal NEGATIVE [facility] Comment on above: Performed By: #### MELODY CORDOVA #### [facility] [address] [place] [address] Geraldo Kandy LEUKOCYTES TRACE Normal NEGATIVE [facility] Comment on above: Performed By: #### MELODY CORDOVA #### [facility] [address] [place] [address] Geraldo Kandy Nitrite Ql (U) Negative Normal NEGATIVE [facility] Comment on above: Performed By: #### MELODY CORDOVA #### [facility] [address] [place] [address] Geraldo Kandy pH (U) 7.0 [pH] Normal 5-9 [facility] Comment on above: Performed By: #### MELODY CORDOVA #### [facility] [address] [place] [address] Geraldo Gaitan Protein Ql (U) 30 mg/dl Normal [facility] Comment on above: Performed By: #### MELODY CORDOVA #### [facility] [address] [place] [address] Geraldo Gaitan SPEC GRAVITY 1.015 Normal 1.005-<=1. 025 [facility] Comment on above: Performed By: #### MELODY CORDOVA #### [facility] [address] [place] [address] Geraldo Gaitan UR MICRO IND INDICATED Normal [facility] Comment on above: Performed By: #### MELODY CORDOVA #### [facility] [address] [place] [address] Geraldo Gaitan Urobilinogen Qn (U) 0.2 {Eileen'U}/dL Normal [facility] Comment on above: Performed By: #### MELODY CORDOVA #### [facility] [address] [place] [address] Geraldo Gaitan LACTATE/LACTIC ACIDon 2019 Lactate [Moles/Vol] 1.1 mmol/L Normal 0.7-2.0 [facility] Comment on above: Performed By: #### H GB #### [facility] [address] [place] [address] Geraldo Gaitan PROCALCITONINon 01-02-2020 PCT header 1 SEE BELOW Normal [facility] Comment on above: Result Comment: PCT <0.5ng/mL: Systemic infection (sepsis) is not likely, local bacterial infection possible, low risk for progression to severe systemic infection (severe sepsis) Performed By: #### P RL #### [facility] [address] [place] [address] Geraldo Kandy PCT header 2 SEE BELOW Normal [facility] Comment on above: Result Comment: PCT >/=0.5 and <2 ng/mL: Systemic infection (sepsis) is possible, moderate risk for progression to severe systemic infection (severe sepsis) Performed By: #### P RL #### [facility] [address] [place] [address] Geraldobhumi Gaitan PCT header 3 SEE BELOW Normal [facility] Comment on above: Result Comment: PCT >/=2.0 and <10 ng/mL: Systemic infection (sepsis) is likely, unless other causes are known, high risk for progession to severe systemic infection(severe sepsis) Performed By: #### P RL #### [facility] [address] [place] [address] Geraldobhumi Gaitan PCT header 4 SEE BELOW Normal [facility] Comment on above: Result Comment: PCT >/= 10 ng/mL: Important systemic inflammatory response almost exclusively due to severe bacterial sepsis or septic shock, high likelihood of severe sepsis or septic shock Performed By: #### P RL #### [facility] [address] [place] [address] Geraldo Gaitan PROCALCITONIN 0.62 ng/mL Critically high 0.00-0.50 [facility] Comment on above: Performed By: #### P RL #### [facility] [address] [place] [address] Geraldo Gaitan PROF 14(COMP METB)on 020 Albumin [Mass/Vol] 3.6 g/dL Normal 3.5-5.0 [facility] Comment on above: Performed By: #### C MP #### [facility] [address] [place] [address] Geraldo Gaitan Albumin/Globulin [Mass ratio] 0.8 {ratio} Normal [facility] Comment on above: Performed By: #### C MP #### [facility] [address] [place] [address] Geraldo Gaitan ALP [Catalytic activity/Vol] 95 U/L Normal 38-126 [facility] Comment on above: Performed By: #### C MP #### [facility] [address] [place] [address] Geraldo Gaitan ALT [Catalytic activity/Vol] 32 U/L Normal 9-52 [facility] Comment on above: Performed By: #### C MP #### [facility] [address] [place] [address] Geraldo Kandy Anion gap [Moles/Vol] 13.8 mmol/L Normal [facility] Comment on above: Performed By: #### C MP #### [facility] [address] [place] [address] Geraldo Kandy AST [Catalytic activity/Vol] 42 U/L Critically high 14-36 [facility] Comment on above: Performed By: #### C MP #### [facility] [address] [address] Geraldo Kandy Bilirubin [Mass/Vol] 0.5 mg/dL Normal 0.2-1.3 [facility] Comment on above: Performed By: #### C MP #### [facility] [address] [place] [address] Geraldo Kandy Calcium [Mass/Vol] 9.4 mg/dL Normal 8.4-10.2 [facility] Comment on above: Performed By: #### C MP #### [facility] [address] [place] [address] Geraldo Kandy Chloride [Moles/Vol] 100 mmol/L Normal 98-107 [facility] Comment on above: Performed By: #### C MP #### [facility] [address] [place] [address] Geraldo Kandy CO2 [Moles/Vol] 24.6 mmol/L Normal 22.0-30.0 [facility] Comment on above: Performed By: #### C MP #### [facility] [address] [place] [address] Geraldo Kandy Creatinine [Mass/Vol] 1.36 mg/dL Critically high 0.52-1.04 [facility] Comment on above: Performed By: #### C MP #### [facility] [address] [place], [place] [id number] Geraldo Kandy EGFR-AF [place] 46 mL/min/1.73m2 Critically low >=60 [facility] Comment on above: Performed By: #### C MP #### [facility] [address] [address] Geraldo Kandy EGFR-NON AF [place] 38 mL/min/1.73m2 Critically low >=60 [facility] Comment on above: Performed By: #### C MP #### [facility] [address] [place], [place] [address] Geraldo Kandy Globulin (S) [Mass/Vol] 4.5 g/dL Normal [facility] Comment on above: Performed By: #### C MP #### [facility] [address] [id number] Geraldo Kandy Glucose [Mass/Vol] 120 mg/dL Critically high 74-106 [facility] Comment on above: Performed By: #### C MP #### [facility] [address] [id number] Geraldo Kandy Potassium [Moles/Vol] 3.4 mmol/L Normal 3.4-5.0 [facility] Comment on above: Performed By: #### C MP #### [facility] [address] [id number] Geraldo Kandy Protein [Mass/Vol] 8.1 g/dL Normal 6.1-8.2 [facility] Comment on above: Performed By: #### C MP #### [facility] [address] [id number] Geraldo Kandy Sodium [Moles/Vol] 135 mmol/L Critically low 137-145 [facility] Comment on above: Performed By: #### C MP #### [facility] [address] [id number] Geraldo Kandy Urea nitrogen [Mass/Vol] 22.0 mg/dL Critically high 7.0-17.0 [facility] Comment on above: Performed By: #### C MP #### [facility] [address] [id number] Geraldo Kandy Urea nitrogen/Creatinine [Mass ratio] 16.2 mg/mg Normal [facility] Comment on above: Performed By: #### C MP #### [facility] [address] [id number] Geraldo Kandy RESPIRATORY PANEL PLUSon Adenovirus Not detected Normal NOT DETECTED [facility] Comment on above: Performed By: #### R SPLUS #### [facility] [address] [place] [address] Geraldo Kandy B. Parapertusis Not detected Normal NOT DETECTED [facility] Comment on above: Performed By: #### R SPLUS #### [facility] [address] [place] [address] Geraldo Kandy B. Pertussis Not detected Normal NOT DETECTED [facility] Comment on above: Performed By: #### R SPLUS #### [facility] [address] [place] [address] Geraldo Kandy Chlamydia Pneumoniae Not detected Normal NOT DETECTED [facility] Comment on above: Performed By: #### R SPLUS #### [facility] [address] [place] [address] Geraldo Kandy Coronavirus 229E Not detected Normal NOT DETECTED [facility] Comment on above: Performed By: #### R SPLUS #### [facility] [address] [place] [address] Geraldo Kandy Coronavirus HKU1 Not detected Normal NOT DETECTED [facility] Comment on above: Performed By: #### R SPLUS #### [facility] [address] [place] [address] Geraldo Kandy Coronavirus NL63 Not detected Normal NOT DETECTED [facility] Comment on above: Performed By: #### R SPLUS #### [facility] [address] [place] [address] Geraldo Kandy Coronavirus OC43 Not detected Normal NOT DETECTED [facility] Comment on above: Performed By: #### R SPLUS #### [facility] [address] [place] [address] Geraldo Kandy Influenza A H1 2009 Not detected Normal NOT DETECTED [facility] Comment on above: Performed By: #### R SPLUS #### [facility] [address] [place] [address] Geraldo Kandy Influenza B Not detected Normal NOT DETECTED [facility] Comment on above: Performed By: #### R SPLUS #### [facility] [address] [place] [address] Geraldo Kandy Metapneumovirus Not detected Normal NOT DETECTED [facility] Comment on above: Performed By: #### R SPLUS #### [facility] [address] [place] [address] Geraldo Kandy Mycoplas. Pneumoniae Not detected Normal NOT DETECTED [facility] Comment on above: Performed By: #### R SPLUS #### [facility] [address] [place] [address] Geraldo Kandy Parainfluenza 1 Not detected Normal NOT DETECTED [facility] Comment on above: Performed By: #### R SPLUS #### [facility] [address] [place] [address] Geraldo Kandy Parainfluenza 2 Not detected Normal NOT DETECTED [facility] Comment on above: Performed By: #### R SPLUS #### [facility] [address] [place] [address] Geraldo Kandy Parainfluenza 3 Not detected Normal NOT DETECTED [facility] Comment on above: Performed By: #### R SPLUS #### [facility] [address] [place] [address] Geraldo Kandy Parainfluenza 4 Not detected Normal NOT DETECTED [facility] Comment on above: Performed By: #### R SPLUS #### [facility] [address] [place] [address] Geraldo Kandy Rhino/Enterovirus Not detected Normal NOT DETECTED [facility] Comment on above: Performed By: #### R SPLUS #### [facility] [address] [place] [address] Geraldo Kandy RP2 Header 1 RESPIRATORY PANEL: VIRUSES Normal [facility] Comment on above: Performed By: #### R SPLUS #### [facility] [address] [place] [address] Geraldo Kandy RP2 Header 2 RESPIRATORY PANEL: BACTERIA Normal [facility] Comment on above: Performed By: #### R SPLUS #### [facility] [address] [place] [address] Geraldo Kandy RP2 Header 4 EUA SEE BELOW Normal [facility] Comment on above: Result Comment: This test is not yet approved or cleared by the [place] FDA. When there are no FDA-approved or cleared tests available, and other criteria are met, FDA can make tests available under an emergency access mechanism called an Emergency Use Authorization (EUA). The EUA for this test is supported by the Construction Project Coordinator of Health and Human Service?s (HHS?s) declaration [...] used). Performed By: #### R SPLUS #### [facility] [address] [place] [address] Geraldobhumi Charlesen RSV Not detected Normal NOT DETECTED [facility] Comment on above: Performed By: #### R SPLUS #### [facility] [address] [place] [address] Geraldo Gaitan SARS-CoV-2 (COVID-19) RNA VIVIENNE+probe Ql (Unsp spec) Not detected Normal NOT DETECTED [facility] Comment on above: Performed By: #### R SPLUS #### [facility] [address] [place] [address] Geraldo Gaitan URINE MICROSCOPIC ONLYon BACTERIA MODERATE Normal NONE SEEN [facility] Comment on above: Performed By: #### MELODY CORDOVA #### [facility] [address] [place] [address] Geraldo Gaitan Bacteria identified Cx Nom (U) INDICATED Normal [facility] Comment on above: Performed By: #### E KANDICE SHAHRO #### [facility] [address] [place] [address] Geraldobhumi Gaitan CAST NONE SEEN Normal NONE SEEN [facility] Comment on above: Performed By: #### E MELODY SHAH #### [facility] [address] [place] [address] Geraldo Gaitan Crystals LM Nom (Urine sed) NONE SEEN Normal NONE SEEN [facility] Comment on above: Performed By: #### E KANDICE SHAHRO #### [facility] [address] [place], [place] [address] Geraldo Kandy Epithelial cells LM Ql (Urine sed) RARE Normal [facility] Comment on above: Performed By: #### KANDICE CORDOVARO #### [facility] [address] [place], [place] [address] Geraldo Kandy MUCOUS NONE SEEN Normal NONE SEEN [facility] Comment on above: Performed By: #### MELODY CORDOVA #### [facility] [address], [place] [address] Geraldo Kandy RBC 0-2 Normal 0-2 [facility] Comment on above: Performed By: #### MELODY CORDOVA #### [facility] [address] [place] [id number] Geraldo Kandy WBC 5-10 Normal NONE SEEN [facility] Comment on above: Performed By: #### MELODY CORDOVA #### [facility] [address], [place] [address] Geraldo Kandy XR CHEST 1 Von 01-02-2020 [...] by: REMY NESS Date: 2020-01-02 18:52 Normal [facility] Vital Signs Date Time Vital Sign Value Performing Clinician Faci lity 01-24-2024 13:04050 Body height 149.9 cm Roger Vasquez DPM Work Phone: [facility] 01-24-2024 13:04-050 Body mass index (BMI) [Ratio] 20.2 kg/m2 Roger Vasquez DPM Work Phone: [facility] 01-24-2024 13:040500 Body weight 45.36 kg Roger Vasquez DPM Work Phone: [facility] Healthcare Encounters Encounter Date Encounter Type Care Provider Facility Start: 01-24-2024 End: 01-24-2024 Bamboo flowsheet Roger Vasquez DPM Work Phone: [facility] Start: 01-24-2024 End: 01-24-2024 Bamboo flowsheet Roger Vasquez DPM Work Phone: [facility] Start: 01-24-2024 End: 01-24-2024 Office outpatient visit 15 minutes Roger Vasqeuz DPM Work Phone: [facility] Comment on above: Dermatophytosis of n ail (Primary Dx); Dystrophic nail; Onychocryptosis; Pain of left great toe Start: 01-24-2024 End: 01-24-2024 ambulatory ROGER VASQUEZ Not Available Start: 01-23-2024 End: 01-23-2024 ambulatory Kei Espana MD Facility:[facility] Start: 01-09-2024 End: 01-09-2024 ambulatory Kei [facility] Start: 12-28-2023 End: 12-28-2023 ambulatory SHARI MCKEON [...] [facility] [place] Start: 10-04-2023 End: 10-04-2023 ambulatory [facility] Start: 09-19-2023 End: 09-19-2023 ambulatory ALEXANDER A HACKENBURG Not Available Start: 09-19-2023 End: 09-19-2023 ambulatory ALEXANDER A HACKENBURG Not Available Start: 09-05-2023 End: 09-05-2023 ambulatory Kei Quintanillaitis Facility:[facility] Start: 08-22-2023 End: 08-22-2023 ambulatory Andnaina Quintanillaitis Facility:[facility] Start: 07-25-2023 End: 07-25-2023 ambulatory Andnaina Quintanillaitis Facility:[facility] Start: 07-11-2023 End: 07-11-2023 ambulatory Kei Quintanillaitis Facility:[facility] Start: 06-17-2023 End: 06-17-2023 ambulatory ALEXANDER A HACKENBURG Not Available Start: 04-27-2023 Telephone encounter Marisa iserra DO Work Phone: [facility] 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 Start: 06-29-2022 End: 06-30-2022 ambulatory SHARI MCKEON Facility:[facility] Start: 10-24-2020 End: 10-25-[address] SHARI MCKEON Facility:[facility] Start: 09-30-2020 End: 10-01-[address] SHARI MCKEON Facility:[facility] Start: 02-01-2020 End: 02-01-[address] CARLOS EDUARDO MENENDEZ Facility:[facility] Start: 01-30-2020 Encounter for preprocedural laboratory examination DR CARLOS EDUARDO MENENDEZ [facility] Start: 01-26-2020 End: 01-27-[address] SHARI MCKEON Facility:[facility] Start: 01-26-2020 End: 01-27-2020 Encounter for preprocedural laboratory examination DR SHARI MCKEON Facility:[facility] Start: 01-02-2020 End: 01-02-[address] BÁRBARA BLUE Facility:[facility] Start: 05-25-2018 End: 05-26-2018 Patient encounter procedure DEFAULT PHYSICIAN Facility:[facility] Plan of Treatment Date Care Activity Detail Author Start: 06-16-2024 Medicare Annual Wellness (AWV) Medicare Annual Wellness (AWV) [facility] Start: 12-28-2023 End: 12-28-2023 Professional / ancillary services management 12/28/2023 9:00 AM EDT Ancillary Procedure [facility] [address] [place] [id number] [facility] Start: 12-13-2023 End: 02-11-2025 MG Breast - bilateral Screening Bilateral screening mammogram Imaging Routine Encounter for screening mammogram for malignant neoplasm of breast Expected: 12/13/2023, Expires: 02/11/2025 [facility] Work Phone: Comment on above: Expected: 12/13/2023 , Expires: 02/11/2025 Start: 11-13-2023 Influenza vaccination Influenza Vacc ine (#1) [facility] Start: 08-02-2023 End: 08-02-2023 Patient encounter procedure 08/02/2023 9:00 AM EDT Office Visit [facility] [address] [facility] [address] [place] [address] Marisa Ramos, [address] [facility] [address] [place] [address] [facility] Start: 05-06-2023 Medicare Annual Wellness (AWV) Medicare Annual Wellness (AWV) [facility] Immunizations Immunization Date Immunization Notes Care Provider Fa [facility] 12-23-2022 Influenza, High-dose Seasonal, Quadrivalent, Preservative Free Alexander Hackenburg [employer] Work Phone: [facility] 12-23-2022 SARS-COV-2 (COVID-19 ) vaccine, mRNA, spike protein, LNP, PF, 50 mcg/0.5 mL Alexander Hackenburg [employer] Work Phone: [facility] 12-23-2022 influenza virus vaccine, unspecified formulation Shari Mckeon MD Work Phone: [facility] 12-01-2021 Influenza, Seasonal, Quadrivalent, Adjuvanted Alexander Hackenburg [employer] Work Phone: [facility] 12-01-2021 Seasonal, trivalent, recombinant, injectable influenza vaccine, preservative free Alexander Hackenburg [employer] Work Phone: [facility] 12-16-2020 Influenza, High-dose Seasonal, Quadrivalent, Preservative Free Alexander Hackenburg [employer] Work Phone: [facility] 02-14-2020 zoster vaccine recombinant Alexander Hackenburg [employer] Work Phone: [facility] 12-07-2019 influenza, seasonal, injectable Alexander Hackenburg [employer] Work Phone: [facility] 11-13-2019 influenza, injectabl e, quadrivalent, preservative free Alexander Hackenburg S[employer] Work Phone: [facility] 11-13-2019 zoster vaccine recombinant Alexander Hackenburg S[employer] Work Phone: [facility] 11-12-2019 zoster vaccine recombinant Alexander Hackenburg [employer] Work Phone: [facility] 11-29-2018 Seasonal trivalent influenza vaccine, adjuvanted, preservative free Alexander Albina [employer]ER [employer] Work Phone: [facility] 11-30-2017 influenza, high dose seasonal, preservative-free Alexander Albina [employer] Work Phone: [facility] 11-24-2017 Seasonal trivalent influenza vaccine, adjuvanted, preservative free Alexander Albina [employer]ER [employer] Work Phone: [facility] 11-18-2016 influenza, high dose seasonal, preservative-free Alexander Albina [employer]ER [employer] Work Phone: [facility] Work Phone: 11-18-2016 pneumococcal conjuga te vaccine, 13 valent Alexander Aparicio S[employer] Work Phone: [facility] 11-18-2016 Seasonal trivalent influenza vaccine, adjuvanted, preservative free Alexander Albina [employer]ER [employer] Work Phone: [facility] 11-18-2016 tetanus toxoid, redu greg diphtheria toxoid, and acellular pertussis vaccine, adsorbed Alexander Aparicio S[employer]ER [employer] Work Phone: [facility] 11-12-2016 pneumococcal polysaccharide vaccine, 23 valent Alexander Aparicio S[employer] Work Phone: [facility] 12-11-2015 influenza, high dose seasonal, preservative-free Alexander Albina SPO[employer]ER [employer] Work Phone: [facility] 12-30-2014 influenza virus vaccine, whole virus Alexander Albina SPOOLER OPER[employer] Work Phone: [facility] 12-30-2014 influenza, injectabl e, quadrivalent, preservative free Alexander Magyburg SPO[employer]ER [employer] Work Phone: [facility] 05-10-2014 pneumococcal conjuga te vaccine, 13 valent Alexander Patrickenburg SPOOLER O[employer]ATOR [employer] Work Phone: [facility] 12-13-2013 influenza virus vaccine, whole virus Alexander Aparicio SPO[employer]ER [employer] Work Phone: [facility] 01-12-2013 pneumococcal Conjuga te, unspecified formulation Alexander Albina SPO[employer]ER [employer] Work Phone: [facility] 01-12-2013 seasonal influenza, intradermal, preservative free Alexander Aparicio SPO[employer]ER [employer] Work Phone: [facility] 12-27-2012 pneumococcal polysaccharide vaccine, 23 valent Alexander Nguyenenburg SPOOLER [employer] Work Phone: [facility] Payers Date Payer Category Payer Unknown 2017 Medicare ANTHEM MEDICARE ADVANTAGE ANTHEM MEDICARE ADVANTAGE [id number] 2017-Present [address] [place] [id number] 2017 Medicare (Managed Care) [facility] [employer] [id number] 1959 Unknown [id number] 1945 Unknown [id number] 2.16.840.1.749318.3.579. 2.647 1944 Unknown [id number] 2.16.840.1.609203.3.579. 2.593 1944 Unknown [id number] 2.16.840.1.080226.3.579. 2.593 1944 Unknown [id number] 2.16.840.1.460901.3.579. 2.593 1944 Unknown [id number] 2.16.840.1.595379.3.579. 2.593 1944 Unknown [id number] 2.16.840.1.116122.3.579. 2.593 1944 Unknown [id number] 2.16.840.1.760553.3.579. 2.718 1944 Unknown [id number] 2.16.840.1.761292.3.579. 2.718 1944 Unknown [id number] 2.16.840.1.347007.3.579. 2.1286 1944 Unknown [id number] 2.16.840.1.480961.3.579. 2.1259 1944 Unknown [id number] 2.840.1.001117.3.579. 2.1259 1944 Unknown [id number] 2.16840.1.108224.3.579. 2.1259 1944 Unknown [id number] 2.16840.1.509513.3.579. 2.1259 1944 Unknown [id number] 2.16.840.1.319044.3.579. 2.1259 1944 Unknown [id number] 2.16840.1.379297.3.579. 2.1259 1944 Unknown [id number] 2.16.840.1.465576.3.579. 2.1259 1944 Unknown [id number] 2.16.840.1.907708.3.579. 2.1259 1944 Unknown [id number] 2.16.840.1.911099.3.579. 2.1259 1944 Unknown [id number] 2.16.840.1.841927.3.579. 2.1259 1944 Unknown [id number] 2.16.840.1.071292.3.579. 2.1259 1944 Unknown [id number] 2.16.840.1.520405.3.579. 2.9 1944 Unknown [id number] 2.16.840.1.754594.3.579. 2.1259 1944 Unknown [id number] 2.16.840.1.163948.3.579. 2.1259 1944 Unknown [id number] 2.16.840.1.795768.3.579. 2.1259 1944 Unknown [id number] 2.16.840.1.034583.3.579. 2.196 1944 Unknown [id number] 2.16.840.1.119472.3.579. 2.196 1944 Unknown [id number] 2.16.840.1.337401.3.579. 2.196 1944 Unknown [id number] 2.16.840.1.003470.3.579. 2.196 1944 Unknown [id number] 2.16.840.1.660110.3.579. 2.196 1944 Unknown [id number] 2.16.840.1.595933.3.579. 2.196 1944 Unknown [id number] 2.16.840.1.837955.3.579. 2.196 1944 Unknown [id number] 2.16.840.1.946674.3.579. 2.196 Social History Date Type Detail Facility Start: 09-17-2022 Tobacco smoking stat [facility] Never smoked tobacco [facility] Start: 09-17-2022 Tobacco use and exposure Smoke less tobacco non-user [facility] Start: 04-18-2023 End: 01-24-2024 Alcohol intake Current drinker of alcohol (finding) [facility] Start: 04-18-2023 End: 06-17-2023 Alcohol intake [...] Never [facility] Clinical Notes 02-01-2020 to 01-24-2024 Roger Vasquez DPM - 01/24/2024 1:00 PM ESTPatient InstructionsTelephone Encounter - Naila Orellana MD - 12/22/2023 12:30 PM EDTTelephone Encounter - Naila Orellana MD - 12/22/2023 12:30 PM EDT Note Date & Type Note Facility 01-24-2024 History of Present illness Narrative Images from the original note were not included. Subjective Patient ID: Radha Cuadra is a 78 y.o. female who presents for No chief complaint on file.. HPI Patient last in clinic in March of 2021. Chief complaint: Thickened, discolored left great toenail, with symptomatic ingrown medial margin. Denies injury or trauma. Relates no recent change in activity or shoe gear. Identifies the medial margin of the left great toe as symptomatic and locally inflamed over the past 1-2 months or so; impacting ADLs and her ability to wear footwear comfortably. Denies bleeding or drainage. Reports mild, stable discoloration of the left great toenail over the past 1-2 years or so. Reports some improvement in the appearance of the toenail with topical OTC anti-fungal agents and is well satisfied. Patient reports effective resolution of hm lesion 2nd digit left foot with use of toe spacers. Medications Current Outpatient Medications: atorvastatin (Lipitor) 20 MG tablet, take 1 tablet by mouth once daily, Disp: 90 tablet, Rfl: 0 dkbjpyfege-uynxvzudmmoma-ofzonfno 50-325-40 MG tablet, Take 1 tablet by mouth every 4 (four) hours if needed (headache)., Disp: , Rfl: CALCIUM-VITAMIN D PO, 2 (two) times a day., Disp: , Rfl: Fluticasone-Salmeterol 250-50 MCG/ACT aerosol powder , Inhale 1 puff in the morning and 1 puff before bedtime., Disp: 180 each, Rfl: 1 losartan-hydroCHLOROthiazide (Hyzaar) 100-12.5 MG tablet, Take 1 tablet by mouth in the morning., Disp: 100 tablet, Rfl: 1 Multiple Vitamin (multivitamin) capsule, Take 1 capsule by mouth in the morning., Disp: , Rfl: traZODone (Desyrel) 50 MG tablet, Take 1 tablet (50 mg) by mouth at bedtime, Disp: 90 tablet, Rfl: 11 Turmeric 500 MG tablet, Orally, Disp: , Rfl: Allergies Alendronate Past Surgical History Past Surgical History: Procedure Laterality Date BREAST SURGERY 2012 Mammogram CARPAL TUNNEL RELEASE DEXA 2013 EGD 02/01/2020 w/ biopsy- [facility] KNEE ARTHROPLASTY Left 06/22/2017 Dr. Ramos KNEE ARTHROPLASTY Right 07/26/2018 Dr. Ramos NECK SURGERY 2013 REVERSE TOTAL SHOULDER ARTHROPLASTY Left 07/26/2022 Dr Ramos ROTATOR CUFF REPAIR Left 2013 Dr. Ramos TOTAL SHOULDER ARTHROPLASTY Left 07/26/2022 Family History Family History Problem Relation Name Age of Onset Emphysema Mother Emphysema Father Emphysema Other Objective GENERAL ASSESSMENT: Alert and oriented. Pleasant disposition. Vascular: DP 2/4 bilateral. PT 2/4 bilateral. CFT brisk all digits. Gradient temperature: Warm-warm bilateral. Unremarkable for ankle edema. Neurologic: Tactile and light touch sensation intact. Dermatologic: Skin turgor is good. Web space areas are clean, dry, non-inflamed. Unremarkable for eczema or dermatitis. Left great toe: Estimate 5-10% stable DSO with pincer deformity. The medial margin is incurvated, keratotic, tender, minimally inflamed, without drainage or abscess formation. The lateral margin is non-tender, non-inflamed. All remaining digits: Toenails are clear and minimally dystrophic. Orthopedic: RANGE OF MOTION: Demonstrates functional ankle, subtalar and 1st MTP joint range of motion. LESION PATTERN: No forefoot or digital discrete keratotic lesions are noted; reflecting favorable resolution of medial HM lesion 2nd digit left foot (well satisfied with toe spacers). 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 Plan: Review of clinical findings, etiology and contributing/aggravating factors, treatment strategy, rationale and objectives. Patient prefers a conservative and palliative care approach. Left great toe: Debridement as noted. Patient is content to continue topical care measures: Use of current anti-fungal agent; preceded by use of vinegar and/or Listerine as directed. Instructions on cuticle massage. Continue use of toe spacers; silicone spacer provided and fitted today. Discussed appropriate supportive footwear with inherently deeper and wider toe box. Procedure: Toenail debridement: Aseptic technique: Hand and power instrumentation: Onychodebridement in length and thickness, with curettage of any cryptotic margins, all periungual debris; providing effective symptom and pressure relief; reducing shoe and digital trauma. This note was created with the assistance of a speech recognition program. While intending to generate a timely document that accurately reflects the content of the visit, no guarantee can be provided that every grammatical or spelling mistake has been or will be identified or corrected. Thank you for your understanding. Roger Vasquez DPM documented in this encounter [facility] 01-24-2024 Instructions Roger Vasquez DPM - 01/24/2024 1:00 PM EST As noted documented in this encounter [facility] 12-22-2023 Telephone encounter Note Approvals with refills [facility] 12-22-2023 Miscellaneous Notes Approvals with refills documented in this encounter [facility] 12-13-2023 Telephone encounter Note Patient called and would like an order for a mammogram sent over. Last one on 12/20/2022. Thank you [facility] 12-13-2023 Miscellaneous Notes Patient called and would like an order for a mammogram sent over. Last one on 12/20/2022. Thank you documented in this encounter [facility] 04-27-2023 Telephone encounter Note Called pt and informed [facility] 04-27-2023 Miscellaneous Notes Called pt and informed Pt called stated she had LT TSA 07/26/22 and is getting a cavity filled and needs antibiotic called into [facility] in [place]. Allergies: NKDA . Her call back [phone] documented in this encounter [facility] 04-27-2023 Telephone encounter Note Pt called stated she had LT TSA 07/26/22 and is getting a cavity filled and needs antibiotic called into [facility] in [place]. Allergies: NKDA . Her call back [phone] [facility] 04-21-2023 Telephone encounter Note Refills sent. [facility] 04-21-2023 Miscellaneous Notes Refills sent. documented in this encounter [facility] 07-27-2022 Note [id number] [facility] 07-26-2022 Note [facility] SURGERY Clinical Discharge Summary PERSON INFORMATION Name RADHA CUADRA Age 77 Years 1945 Sex FEMALE Language Greenlandic PCP SHARI MCKEON Marital Status Med Service Ambulatory Surgery Acct# Arrival 07/26/2022 05:52:10 Visit Reason SURGERY - LEFT REVERSE TOTAL SHOULDER - ARTHREX Acuity LOS 053 02:57 Address: [address] [place] [address] [place] [address] Comment: PROVIDER INFORMATION VITALS INFORMATION Vital Sign [...] REASON INCOMPLETE INFORMATION (more content not included)... [facility] 02-01-2020 Note OPERATIVE NOTE OPERATION DATE: [...] position. She was sedated by the nurse hr shared services consultant. Bite block was placed in her mouth. [...] CARLOS EDUARDO MENENDEZ . 02/07/2020 09:15:00 [facility] Evaluation note Diagnosis Essential hypertension (CMS/HCC) Unspecified essential hypertension documented in this encounter [facility]* Diagnosis S/P reverse total shoulder arthroplasty, left- Primary documented in this encounter [facility]* Diagnosis Encounter for screening mammogram for malignant neoplasm of breast- Primary documented in this encounter [facility]* Diagnosis Primary insomnia Persistent disorder of initiating or maintaining sleep documented in this encounter [facility]* Diagnosis Dermatophytosis of nail- Primary Dystrophic nail Other specified disease of nail Onychocryptosis Ingrowing nail Pain of left great toe documented in this encounter [facility] Summary Purpose Family History No Family [...] section and content) DATE CREATED AUTHOR 05/27/2018 [facility] DATE CREATED AUTHOR AUTHOR'S ORGANIZ ATION 11/06/2020 [facility] DATE CREATED AUTHOR AUTHOR'S ORGANIZ ATION 05/12/2022 [facility] DATE CREATED AUTHOR AUTHOR'S ORGANIZ ATION 07/28/2022 [facility] DATE CREATED AUTHOR AUTHOR'S ORGANIZ ATION 10/06/2023 [facility] DATE CREATED AUTHOR AUTHOR'S ORGANIZ ATION 01/26/2024 [facility] DATE CREATED AUTHOR AUTHOR'S ORGANIZ ATION 01/31/2024 [facility] Reason for Visit (unrecogniz ed section and content) Reason Comments Med Refill Reason 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 Reason Comments Ingrown Toenail Pt is here today for an ingrown nail Lt medial side hallux, she states it is not as painful as it was when she made this appt. Only painful with closed toe shoes. She did not try anything to help with discomfortSS: 6 Care Teams (unrecognized sec tion and content) Office Administrator Relationship Specialty Start Date End Date Alexander Aparicio NP [address] [place] [address] PCP - Cristobal FIGUEROA 03/21/21 Shari Mckeon MD [address] [place] [address] PCP - General Family Medicine 07/26/22 Office Administrator Relationship Specialty Start Date End Date Alexander Aparicio NP [address] [place] [address] PCP - Cristobal FIGUEROA 03/21/21 Shari Mckeon MD [address] [place] [address] PCP - General Family Medicine 07/26/22 Office Administrator Relationship Specialty Start Date End Date Alexander Aparicio NP [address] [place] [address] PCP - Cristobal FIGUEROA 03/21/21 Shari Mckeon MD [address] [place] [address] PCP - General Family Medicine 07/26/22 Office Administrator Relationship Specialty Start Date End Date Alexander Aparicio NP [address] [place] [address] PCP - Cristobal FIGUEROA 03/21/21 Shari Mckeon MD [address] [place] [address] PCP - General Family Medicine 07/26/22 Office Administrator Relationship Specialty Start Date End Date Alexander Aparicio NP [address] [place] [address] PCP - Cristobal FIGUEROA 03/21/21 Shari Mckeon MD [address] [place] [address] PCP - General Family Medicine 07/26/22 Office Administrator Relationship Specialty Start Date End Date Alexander Aparicio NP [address] [place] [address] PCP - Cristobal FIGUEROA 03/21/21 Shari Mckeon MD [address] [facility] [place] [address] PCP - General Family Medicine 07/26/22 Office Administrator Relationship Specialty Start Date End Date Alexander Aparicio NP [address] [facility] [place] [address] PCP - Cristobal FIGUEROA 03/21/21 Shari Mckeon MD [address] [facility] [place] [address] PCP - General Family Medicine 07/26/22 FOR [...] BE BASED ON THE PRIMARY CLINICAL RECORDS. [facility]. provides no warranty or guarantee of the accuracy or completeness of information in this document.
[2024-02-06 09:14] VITALS: BP 111/67; PULSE 77; TEMP 37.4; O2SAT 96
[2024-02-06 09:34] VITALS: BP 127/59; PULSE 83; O2SAT 91
[2024-02-06 09:36] VITALS: BP 126/60; PULSE 74; O2SAT 94
[2024-02-06] MEDS: BUPIVACAINE HCL 0.25% PF 25 MG/10 ML VIAL 2 ML INJ (09:46)
[2024-02-06] MEDS: DEXAMETHASONE SOD PHOS 10 MG/ML VIAL INJ (09:46)
[2024-02-06] MEDS: LIDOCAINE HCL 2% 400 MG/20 ML MDV 7 ML INJ (09:47)
--- NOTE | 2024-02-06 09:47 | P.ON_ITS ---
Date of procedure: 02/06/24 Pre-op diagnosis: Pain due to thoracic spondylosis without myelopathy Post-op diagnosis: same as pre-op Procedure: Procedure: Right T10-11, 11-12 radiofrequency ablation Medications: Bupivacaine 0.25% 2cc, lidocaine 2% 3cc, dexamethasone 10mg The patient was seen and examined in the preoperative holding area.? The site was marked.? Written informed consent was obtained and placed on the chart.? The patient was brought to the medical procedure unit and placed in the prone position.? A timeout was completed verifying correct patient, procedure, positioning, and special requirements.? The skin overlying the target points, the designated medial branch, were prepped and draped in the usual sterile fashion.? The target point was achieved with a 20-gauge 15 cm with a 10 mm curved active tip radiofrequency cannula under direct fluoroscopic visualiz ation.? The needle was inserted at level T10 on the right side. Needle tip position was confirmed with lateral fluoroscopic position.? Motor stimulation was carried out at 2 Hz up to 5 volts with the absence of extremity activity.? This was repeated at level T11, 12 on right side.?? Sensory stimulation was carried out.? Concordant pain was realized at the above- mentioned sites.? Then radiofrequency lesioning was carried out times 90 seconds at 80 degrees times 2 lesions at each level.? The radiofrequency probe was removed prior to cannula removal.? The above-mentioned injectate was placed in 1 mL increments.? The needle was removed.? Insertion sites were covered.? The patient was taken to the postoperative recovery area and monitored for an appropriate length of time before being found suitable for discharge in the company of a responsible adult. Anesthesia: Local Surgeon: Kei Espana Pathology: none sent Condition: stable Disposition: no change
== END 2024-02-06 09:50 | disposition home or self-care (01) ==
LOC: SURGOUT 08:44
PROVIDERS: PCP Family Medicine; Visit Provider Anesthesiology
DX: M47.814 Spondylosis without myelopathy or radiculopathy, thoracic region (principal)
CPT/HCPCS: 64633; 64634; J0665; J1100

== ENCOUNTER 2024-02-20 08:31 | Day surgery (SDC) | payer MEDICARE, SELFPAY ==
[2024-02-20 08:48] VITALS: BP 133/60; PULSE 75; TEMP 37.6; O2SAT 95
[2024-02-20 09:42] VITALS: BP 142/64; PULSE 75; O2SAT 94
[2024-02-20] MEDS: BUPIVACAINE HCL 0.25% PF 25 MG/10 ML VIAL 2 ML INJ (09:47)
[2024-02-20] MEDS: LIDOCAINE HCL 2% 400 MG/20 ML MDV 6 ML INJ (09:48)
[2024-02-20] MEDS: DEXAMETHASONE SOD PHOS 10 MG/ML VIAL INJ (09:48)
[2024-02-20 09:50] VITALS: BP 137/74; PULSE 74; O2SAT 94
--- NOTE | 2024-02-20 09:53 | P.ON_ITS ---
Date of procedure: 02/20/24 Pre-op diagnosis: Pain due to thoracic spondylosis without myelopathy Post-op diagnosis: same as pre-op Procedure: Procedure: Left T10-11, 11-12 radiofrequency ablation Medications: Bupivacaine 0.25% 3cc, lidocaine 2% 3cc, dexamethasone 10mg The patient was seen and examined in the preoperative holding area.? The site was marked.? Written informed consent was obtained and placed on the chart.? The patient was brought to the medical procedure unit and placed in the prone position.? A timeout was completed verifying correct patient, procedure, positioning, and special requirements.? The skin overlying the target points, the designated medial branch, were prepped and draped in the usual sterile fashion.? The target point was achieved with a 20-gauge 15 cm with a 10 mm curved active tip radiofrequency cannula under direct fluoroscopic visualiza tion.? The needle was inserted at level T10 on the left side. Needle tip position was confirmed with lateral fluoroscopic position.? Motor stimulation was carried out at 2 Hz up to 5 volts with the absence of extremity activity.? This was repeated at level T11, 12 on left side.?? Sensory stimulation was carried out.? Concordant pain was realized at the above- mentioned sites.? Then radiofrequency lesioning was carried out times 90 seconds at 80 degrees times 2 lesions at each level.? The radiofrequency probe was removed prior to cannula removal.? The above-mentioned injectate was placed in 1 mL increments.? The needle was removed.? Insertion sites were covered.? The patient was taken to the postoperative recovery area and monitored for an appropriate length of time before being found suitable for discharge in the company of a responsible adult. Anesthesia: Local Surgeon: Kei Espana Pathology: none sent Condition: stable Disposition: no change
== END 2024-02-20 09:56 | disposition home or self-care (01) ==
LOC: SURGOUT 08:32
PROVIDERS: PCP Family Medicine; Visit Provider Anesthesiology
DX: M47.814 Spondylosis without myelopathy or radiculopathy, thoracic region (principal)
CPT/HCPCS: 64633; 64634; J0665; J1100

== ENCOUNTER 2024-03-28 08:29 | Outpatient (OUT) | payer MEDICARE, SELFPAY ==
--- NOTE | 2024-03-28 08:46 | PM.CN ---
Consult Note: HPI Data of Consult Patient: known to practice within the last 3 years Consult date: 11/28/23 Requesting Physician: Concha Lopez NP Primary Care Provider: KELLY MCKEON Consult Narrative Reason for consult: back pain Narrative: 78yof who presents for assessment. notes low back pain that is higher than where her previous ablation was. notes significant relief >80% with rfa at bilateral l4-5, l5-s1. now points to pain slightly higher. imaging reviewed, which shows multilevel facet arthropathy in thoracic and lumbar spine. has continued to engage in a series of provider directed home exercises >6 weeks, without lasting benefit. uses otc pain meds as needed and tylenol #3 BID PRN. denies adverse med side effects. patient recently underwent left and right T10-11 T11-12 RFA with no relief at this time per pt, however pain 0/10 and ALDO now 2%. cc:: CC: Concha Lopez NP Review of Systems ROS Status of ROS 10 or more systems reviewed and unremarkable except as noted in history and below Musculoskeletal Reports: back pain PFSH PFSH Medical History Osteoarthritis ?M19.90 - Unspecified osteoarthritis, unspecified site (ICD-10) Heart murmur ?R01.1 - Cardiac murmur, unspecified (ICD-10) Surgical History History of total shoulder replacement ?Z96.619 - Presence of unspecified artificial shoulder joint (ICD-10) History of total knee arthroplasty ?Z96.659 - Presence of unspecified artificial knee joint (ICD-10) History of carpal tunnel release ?Z98.890 - Other specified postprocedural states (ICD-10) Meds Home Medications and Allergies Home Medications ?Medication ?Instructions ?Recorded ?Confirmed ?Type calcium 600 mg (as 1 tab PO BID 07/11/23 02/20/24 History carbonate)-vitamin D3 5 mcg (200 unit) tablet (Calcium 600 + D(3)) losartan 100 mg tablet 100 mg PO DAILY 07/11/23 02/20/24 History multivitamin-ferrous 1 tab PO DAILY 07/11/23 02/20/24 History fumarate-folic acid 18 mg-400 mcg tablet (Centrum Women) trazodone 50 mg tablet 50 mg PO DAILY 07/11/23 02/20/24 History acetaminophen 300 mg-codeine 30 mg 1 tab PO BID PRN pain #60 tabs 01/11/24 02/20/24 Rx tablet albuterol 90 mcg/actuation aerosol mcg inhalation BID 02/01/24 History inhaler acetaminophen 300 mg-codeine 30 mg 1 tab PO BID PRN pain #60 tabs 02/23/24 Rx tablet Allergies Allergy/AdvReac Type Severity Reaction Status Date / Time No Known Drug Allergies Allergy Verified 02/20/24 08:53 Exam Constitutional Documenting provider has reviewed patient's vital signs: yes Common normals: no apparent distress, oriented x3, healthy appearing, alert and well nourished General appearance: cooperative HENMT Common normals: normocephalic, hearing grossly normal bilaterally and moist oral mucous membranes Head and scalp: normocephalic Eye Common normals: PERRL Pupil: PERRL Neck & C-Spine Common normals: full ROM General: normal visual inspection Chest Common normals: inspection of chest normal Respiratory Common normals: normal respiratory effort, no retractions and no use of accessory muscles Back & Pelvis Thoracic spine/upper back: ROM limited, pain with ROM and thoracic spinal tenderness; no paraspinal muscle spasm Lumbar spine/lower back: ROM limited, pain with ROM and lumbar spinal tenderness; no paraspinal muscle spasm Other: negative facet loading no tenderness over T10-L2 facets no radiculopathy on exam strength 5/5 in BLE Neuro Common normals: oriented x3, CN's II-XII intact bilaterally, moves all extremities, no focal motor deficits, no sensory deficits noted and deep tendon reflexes 2+ bilaterally Sensorium/orientation: alert Motor exam: strength 5/5 throughout and no movement abnormalities noted Psych Common normals: mental status grossly normal, thought process normal, cooperative, affect normal, speech normal and activity/motor behavior normal Speech: normal speech Thought process: normal thought process Results Additional Findings Additional findings: If on a controlled substance or opioids, I have checked an [place] report on this patient and there are no aberrancies noted in the prescribing history.??If on a controlled substance or opioid a drug screen was completed and reviewed within the last year, and if there has not been a drug screen completed we ordered one today to monitor higher risk, state monitored pain medication use. As part of providing excellent, safe, comprehensive care, the following was completed at our patient's visit: 1. A medication reconciliation and review to ensure accurate knowledge of current/active medications, including asking our patients to inform us about any [id number] medications or herbal remedies/nutritional supplements/alternative remedies. 2. A review to specifically ensure our patients have had annual screening for screening for depression, screening for tobacco use, and screening for unhealthy alcohol use. For concerning screenings had a discussion with the patient, provided patient education, and recommended follow-up with primary care provider when appropriate. If patient noted with a risk of falling, they received education on strength, gait, and balance training to prevent future risk of falling. Assessment and Plan Assessment and Plan (1) Thoracic back pain: (2) Thoracic spondylosis: (3) Lumbar spondylosis: (4) Chronic use of opiate drug for therapeutic purpose: Assessment and Plan: I feel these medications are improving the patient's quality of life and allow them to tolerate activities of daily living as well as participate in recreational activity.? The patient does not report intolerable side effects. The patient is NOT opioid naive and non-pharmacologic and non-opioid treatment has failed to significantly relieve the patient's pain and improve functionality. The patient has a diagnosis that is related to a somatic or visceral pain etiology. ? ?? I reviewed with the patient the potential risks and side effects with the use of? opioid medications including but not limited to respiratory depression,? sedation, and even . I verified the patient has access to naloxone should? these effects occur. I advised the patient to avoid the use of any other? sedation substances including alcohol, THC, and benzodiazepines while? taking opioid medications due to the risk of compounding side effects and? detrimental outcomes. I reviewed the [employer], pain treatment agreement, urine? drug screen, and opioid start talking forms. The patient was advised to let? their family know they had Naloxone in case they would need to administer? the medication.? ?? A drug screen was completed within the last year, and no aberrancies were noted regarding their use of controlled substances. The patient understands they are subject to the terms and conditions of the pain contract that they have signed. ? ?? I have checked an [place] report on this patient today and there are no aberrancies noted in the prescribing history.? (5) Osteoarthritis: Plan start baclofen 5-10mg BID PRN pain/spasms continue current medications, reporting significant improvement in pain and functional ability with tylenol #3 BID PRN f/u 6 weeks to assess delayed response to RFAs
--- OUTSIDE RECORDS SUMMARY | 2024-03-28 08:49 | XMS_ITS | CCD ---
Author Organization [facility] Inform ion [facility] Care Team Providers Care 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 Name Role Phone PHYSICIAN, DEFAULT Admitting Unavailable [...] able Marisa Ramos Attending Unavail able Alessandra [facility] [employer], Alexander Plascencia Unavailable Shari Mckeon MD Primary Care Provider ALEXANDER APARICIO Referring Unavailab le SHARI MCKEON Primary Care Unavailable [facility], ALEXANDER Plascencia Attending Unavailab SHARI Carvalho Attending Unavailable SHARI MCKEON Referring Unavailable MARISA RAMOS Attending Unavailable BOLTON, MARISA Plascencia Referring Unavailable BOLTON, MARISA Plascencia Attending Unavailable BOLTON, MARISA Plascencia Attending Unavailable BOLTON, MARISA Plascencia Referring Unavailable [facility], ALEXANDER Plascencia Attending Unavailab darinel RESHMA, ALEXANDER Plascencia Attending Unavailab darinel [facility], ALEXANDER Plascencia Referring Unavailab SHARI Carvalho Referring Unavailable [facility] Attending Unavailable BOLTON, MARISA Plascencia Attending Unavailable Giedraitis MD, Andrius Vytautas Attending [...] sources) Alendronate; Translations: [Fosamax] Drug Allergy [facility] (11 sources) Alendronate Drug Allergy 09-10-2020 Unknown [facility] Medications Current Medications Medication Drug Class(es) Dates Sig (Normalized) Sig (Original) acetaminophen 325 mg / butalbital 50 mg / caffeine 40 mg oral tablet (11 sources) Barbiturate, Central Nervous System Stimulant, Methylxanthine [...] 05/04/2023 Active atorvastatin 20 mg oral tablet (11 sources) HMG-CoA Reductase Inhibitor Start: 09-28-2023 take [...] 0 04/18/2023 04/23/2023 Active CALCIUM-VITAMIN D PO (11 sources) Start: 06-29-2022 CALCIUM-VITAMIN D PO 2 [...] / salmeterol 0.05 mg/actuat dry powder inhaler (13 sources) Corticosteroid, beta2-Adrenergic Agonist Start: 12-09-2023 take 1 puff(s) by inhalation in the morning Fluticasone-Salme terol 250-50 MCG/ACT aerosol powder Indications: Mild intermittent asthma, unspecified whether complicated (CMS/HCC) Inhale 1 puff in the morning and 1 puff before bedtime. 180 each 1 12/09/2023 Active Start: 10-13-2023 End: 02-07-2024 take 1 puff(s) by inhalation in the morning Fluticasone-Salmeterol 250-50 MCG/ACT aerosol powder Indications: Mild intermittent asthma, unspecified whether complicated (CMS/HCC) Inhale 1 puff in the morning and 1 puff before bedtime. 180 each 1 02/07/2024 Active Start: 04-08-2023 End: 07-07-2023 take 1 puff(s) by inhalation in the morning Fluticasone-Salmeterol 250-50 MCG/ACT aerosol powder Indications: Mild intermittent asthma, unspecified whether complicated (CMS/HCC) Inhale 1 puff in the morning and 1 puff before bedtime. 60 each 0 04/08/2023 07/07/2023 Active hydroCHLOROthiazide 12.5 mg / losartan potassium 100 mg oral tablet (13 sources) Thiazide Diuretic, Angiotensin 2 Receptor Aguilar Start: 11-17-2023 take 1 tablet by mouth in the morning losartan-hydroCHLOROthiazide (Hyzaar) 100-12.5 MG tablet Indications: Essential hypertension (CMS/HCC) Take 1 tablet by mouth in the morning. 100 tablet 1 11/17/2023 Active Start: 04-21-2023 End: 11-17-2023 take 1 tablet by mouth once daily in the morning losartan-hydroCHLOROthiazide (Hyzaar) 100-12.5 MG tablet Indications: Essential hypertension (CMS/HCC) take 1 tablet by mouth every morning 100 tablet 1 04/21/2023 11/17/2023 Discontinued (Reorder) Start: 01-18-2023 End: 04-21-2023 take 1 tablet by mouth in the morning losartan-hydroCHLOROthiazide (Hyzaar) 100-12.5 MG tablet Indications: Essential hypertension (CMS/HCC) Take 1 tablet by mouth in the morning. 100 tablet 0 01/18/2023 04/21/2023 Discontinued Multiple Vitamin (multivitamin) capsule (11 sources) take 1 capsule by mouth in [...] Active traZODone hydrochloride 50 mg oral tablet (12 sources) Serotonin Reuptake Inhibitor Start: 09-26-2023 End: [...] Active turmeric extract 500 mg oral capsule (11 sources) Turmeric 500 MG tablet Orally Active Turmeric 500 MG tablet Orally 0 Active Problems Active Problems Problem Classification Problem Date Documented Date Episodic/Chronic Asthma (20 sources) Mild intermittent asthma; Translations: [Mild intermittent asthma with status asthmaticus] Onset: 06-12-2017 Resolved: 06-17-2023 07-15-2022 Chronic Chronic kidney disease (11 sources) Chronic kidney disease stage 3B ; Translations: [Stage 3b chronic kidney disease (HCC)] Onset: 07-15-2022 07-15-2022 Chronic Chronic obstructive pulmonary disease and bronchiectasis (12 sources) Chronic obstructive pulmonary disease, unspecified; Translations: [Chronic obstructive lung disease] Onset: 05-18-2011 07-15-2022 Chronic Disorders of lipid metabolism (20 sources) Pure hypercholesterolemia ; Translations: [Pure hypercholesterolemia , unspecified] Onset: 07-15-2022 07-15-2022 Chronic Essential hypertension (20 sources) Essential (primary) hypertension; Translations: [Essential hypertension] [...] Onset: 06-22-2017 Resolved: 06-17-2023 07-15-2022 Chronic Osteoporosis (20 sources) Senile osteoporosis; Translations: [Age-related osteoporosis without current pathological fracture] Onset: 11-04-2017 Resolved: 06-17-2023 07-15-2022 Chronic Other connective tissue disease (11 sources) Artificial knee joint present; Translations: [Presence of unspecified artificial knee joint] Onset: 07-15-2022 07-15-2022 Chronic Other connective tissue disease (1 source) History of reverse prosthetic total arthroplasty of left shoulder; Translations: [Presence of left artificial shoulder joint] 04-27-2023 Chronic Other connective tissue disease (2 sources) Pain in hallux; Translations: [Pain in left toe(s)] 01-24-2024 Episodic Other hereditary and degenerative nervous system conditions (20 sources) Restless legs; Translations: [Restless legs syndrome] Onset: 10-26-2017 Resolved: 06-17-2023 07-15-2022 Chronic Other lower respiratory disease (5 sources) Shortness of breath; Translations: [SHORTNESS OF BREATH] Onset: 09-30-2020 Episodic Other nervous system disorders (11 sources) Difficulty walking; Translations: [Difficulty in walking, not elsewhere classified] Onset: 07-15-2022 07-15-2022 Chronic Other nervous system disorders (11 sources) Chronic pain; Translations: [Other chronic pain] Onset: 05-23-2023 05-23-2023 Chronic Other screening for suspected conditions (not mental disorders or infectious disease) (1 source) Patient encounter status; Translations: [Encounter for screening mammogram for malignant neoplasm of breast] 12-13-2023 Episodic Other skin disorders (2 sources) Dystrophia unguium; Translations: [Nail dystrophy] 01-24-2024 Episodic Other skin disorders (2 sources) Ingrowing nail; Translations: [Ingrowing nail] 01-24-2024 Episodic Residual codes; unclassified (11 sources) Insomnia; Translations: [Other insomnia] Onset: 07-15-2022 07-15-2022 Chronic Past or Other Problems Problem Classification Problem Date Documented Da te Episodic/Chronic Fever of unknown origin (4 sources) Fever, unspecified; Translations: [FEVER UNSPECIFIED] Onset: 01-02-2020 Episodic Fluid and electrolyte disorders (1 source) Dehydration; Translations: [DEHYDRATION] Onset: 01-04-2020 Episodic Gastritis and duodenitis (12 sources) Gastritis, unspecified, without bleeding; Translations: [Bile-induced gastritis] Onset: 02-14-2020 Resolved: 06-17-2023 07-15-2022 Episodic Heart valve disorders (20 sources) Systolic murmur; Translations: [Cardiac murmur, unspecified] Onset: 07-15-2022 Resolved: 06-17-2023 07-15-2022 Episodic Immunizations and screening for infectious disease (1 source) Contact with and (suspected) exposure to other viral communicable diseases; Translations: [CONTCT EXPS OTH VIRL COMMUNICABL DZ] Onset: 01-30-2020 Episodic Mood disorders (9 sources) Mood disorders Onset: 06-17-2023 06-17-2023 Other aftercare (1 source) Other buttermaker helper (current) drug therapy; Translations: [OTH PASSENGER SERVICE REPRESENTATIVE CURRENT DRUG THERAPY] Onset: 02-14-2020 Episodic Other aftercare (1 source) buttermaker helper (current) use of aspirin; Translations: [RESIDENTIAL CURRENT USE OF ASPIRIN] Onset: 01-04-2020 Episodic Other gastrointestinal disorders (4 sources) Dysphagia, unspecified; Translations: [DYSPHAGIA UNSPECIFIED] Onset: 02-01-2020 Episodic Other gastrointestinal disorders (11 sources) Dysphagia; Translations: [Dysphagia, unspecified] Onset: 07-15-2022 Resolved: 06-17-2023 07-15-2022 Episodic Other lower respiratory disease (1 source) Cough; Translations: [COUGH] Onset: 01-04-2020 Episodic Other non-traumatic joint disorders (11 sources) Derangement of left shoulder joint; Translations: [Other specific joint derangements of left shoulder, not elsewhere classified] Onset: 07-15-2022 Resolved: 06-17-2023 07-15-2022 Chronic Residual codes; unclassified (11 sources) Poor sleep pattern; Translations: [Other sleep disorders] Onset: 08-21-2020 Resolved: 06-17-2023 08-03-2022 Chronic Residual codes; unclassified (11 sources) Postmenopausal state; Translations: [Asymptomatic menopausal state] [...] Normal Not Available XR CHEST 2 VIEWSon 4 XR CHEST [...] Not Available Consent Formson 07-27-2022 Consent Forms [id number] Discharge Instructionson Discharge Instructions [id number]#1.00OTGTIFF [facility] MAGR Intraoperative Recordon 07-27-2022 MAGR Intraoperative Record MAGR Intra-Op Record Summary Primary Physician: Marisa Ramos DO Finalized Date/Time: 07/27/22 09:45:04 Pt. Name: RADHA CUADRA/Sex: 1945 FEMALE Med Rec #: [id number] Physician: Marisa Ramos DO Financial #: [id number] Pt. Type: D Room/Bed: / Admit/Disch: 07/26/22 [...] Role Performed Surgeon - Primary Anesthesiologist of Construction Accountant Record Time In 07/26/22 07:39:00 07/26/22 07:39:00 07/26/22 07:39:00 Time Out 07/26/22 09:49:00 07/26/22 09:49:00 07/26/22 09:49:00 Procedure Arthroplasty Shoulder Arthroplasty Shoulder Arthroplasty Shoulder Total Reverse(Left) Total Reverse(Left) Total Reverse(Left) Last Modified By: Mode GOLDMAN, Jania Coello RN, Jania Conde RN 07/26/22 09:49:54 07/26/22 09:49:54 07/26/22 09:49:54 Entry 4 Entry 5 Entry 6 Case Attendee Fahad SOFTWARE ENGINEER WEB APPLICATIONSPaulina SOFTWARE ENGINEER WEB APPLICATIONS Lisa Antony CST SOFTWARE ENGINEER WEB APPLICATIONS/CSFAZOE SOFTWARE ENGINEER WEB APPLICATIONS Role Performed Scrub Personnel Scrub Personnel Diesel Power Shovel Operator Time In 07/26/22 07:39:00 07/26/22 07:39:00 07/26/22 [...] to chemical sources (more content not included)... [facility] Outside Recordson 07-27-2022 Outside Records [id number][facility] Provider Orderson 07-27-2022 Provider Orders [id number][facility] Telemetry Stripson Telemetry Strips [id number]#[facility] Anesthesia Noteon 07-26-2022 Anesthesia Note Patient: RADHA CUADRA MRN: [id number] Age: 77 years Sex: FEMALE : 1945 [...] 07/26/2022 11:51 EDT] Remy Da Silva MD [facility] Anesthesia Note Patient: RADHA CUADRA [...] obstructive pulmonary disease (COPD) / SNOMED CT 75202843 / Confirmed Heart murmur / SNOMED CT 658547245 / Confirmed Hyperlipidemia / SNOMED CT 83516442 / Confirmed HTN (hypertension) / SNOMED CT 6527287750 / Confirmed Histories Family History: COPD Mother Father Procedure history: Arthroplasty of left knee (3910237606). Arthroplasty of right knee (0661519646). Carpal tunnel release (017532076). Comments: 06/29/2022 13:15 Dorota De Leon RN bilat Colonoscopy (070236602). EGD - Esophagogastroduodenoscopy (7474365599). Disorder of rotator cuff (1848071445). Comments: 06/29/2022 13:14 Dorota De Leon RN [...] Oriented. Review / Management Laboratory Results Plan [employer]esthesiologists#(ASA) physical status classification: Class [...] 07/26/2022 08:23 EDT] Remy Da Silva MD [facility] Inpatient Patient Summaryon 07-26-2022 Inpatient Patient Summary [place] [id number] Patient Discharge Instructions Name: RADHA CUADRA : 1945 Patient Address: [address] [place] [address] Primary Care Provider: Name: SHARI MCKEON After you are discharged if you find you have any questions, please, call [phone] ext [phone] to speak to a nurse. Discharge Diagnosis: [...] alcohol and/or drug addiction problems; contact the [facility] 04/10 Crisis Hotline -Text 4HOPE to 313531. If you received any narcotics, sedation, or [...] Follow-up Instructions With: Address: When: Marisa Ramos [address] [place] [address] [address] [place] [address] Business (1) 08/03/2022 11:00 AM [...] fingers frequently (more content not included)... [facility] MAGR Intraoperative Recordon 07-26-2022 MAGR Intraoperative Record MAGR Intra-Op Record Summary Primary Physician: Finalized Date/Time: 07/26/22 07:42:32 Pt. Name: RADHA CUADRA/Sex: 1945 FEMALE Med Rec #: [id number] Physician: Marisa Ramos DO Financial #: [id number] Pt. Type: D Room/Bed: / Admit/Disch: 07/26/22 [...] Warga, Laura RN Role Performed Anesthesiologist of Construction Accountant Construction Accountant Record Time In 07/26/22 07:13:00 07/26/22 07:13:00 07/26/22 07:13:00 Time Out 07/26/22 07:38:00 07/26/22 07:38:00 07/26/22 07:38:00 Procedure Interscalene Block(Left) Interscalene Block(Left) Interscalene Block(Left) Last Modified By: Kimberley Le RN, Margaret RN Klaehn, Margaret RN 07/26/22 07:39:31 05/15/23 07:39:31 07/26/22 07:39:31 Entry 4 Case Attendee Amy Bates RN Role Performed Construction Accountant Time In 07/26/22 07:13:00 Time Out 07/26/22 [...] Post-op Destinat (more content not included)... [facility] MAGR PAC[facility] Record [facility] Primary Physician: Marisa Ramos DO Finalized Date/Time: 07/26/22 10:38:28 Pt. Name: RADHA CUADRA/Sex: 1945 FEMALE Med Rec #: [id number] Physician: Marisa Ramos DO Financial #: [id number] Pt. Type: D Room/Bed: / Admit/Disch: 07/26/22 05:52:10 - Institution: PACU Case Times MAGR Entry 1 In PACU I 07/26/22 09:51:00 Discharge from PACU 07/26/22 10:35:00 I Last Modified By: Warner Bolton RN 07/26/22 10:38:23 Finalized By: Warner Bolton RN Document Signatures Signed By: Warner Bolton RN 07/26/22 10:38 [facility] MAGR Postoperative Recordon 07-26-2022 MAGR Postoperative Record MAGR Phase II Record Summary Primary Physician: Marisa Ramos DO Finalized Date/Time: 07/26/22 12:01:17 Pt. Name: RADHA CUADRA/Sex: 1945 FEMALE Med Rec #: [id number] Physician: Marisa Ramos DO Financial #: [id number] Pt. Type: D Room/Bed: / Admit/Disch: 07/26/22 [...] Signed By: Annamarie Samuels RN 07/26/22 12:01 [facility] MAGR Preoperative Recordon 0 07-26-2022 MAGR Preoperative Record MAGR Pre-Op Record Summary Primary Physician: Marisa Ramos DO Finalized Date/Time: 07/26/22 07:44:03 Pt. Name: RADHA CUADRA/Sex: 1945 FEMALE Med Rec #: [id number] Physician: Marisa Ramos DO Financial #: [id number] Pt. Type: D Room/Bed: / Admit/Disch: 07/26/22 [...] Estimated blood loss: 50 Complications: None Findings: Stis-yy-pvnl in the glenohumeral joint Procedure summary: Patient [...] [Verified on: 07/26/2022 09:35 EDT] Marisa Ramos Kvng DO [facility] Patient Handouton 07-26-2022 Patient Handout [...] or concerns, please call the office at [phone] 7. Follow up as scheduled [facility] XR Shoulder 1 View Lefton [...] MD 07/27/22 4:01 pm Technologist: JORDON RUVALCABA [facility] Comment on above: Order Comment: defau lt status post shoulder replacement Progress Note - Nurseon 07-12 Progress Note - Nurse Pre-op call made to pt. Pt states understanding of arrival time of 0600 on 07/26/22 and NPO after MN. [Electronically Signed on: 07/23/2022 09:27 EDT] Shantel Gonsalez RN [Verified on: 07/23/2022 09:27 EDT] Shantel Gonsalez RN [facility] Coding Summaryon 07-02-2022 Coding Summary HTMLBase 64 RdwmntiuGOh5bFl+PGhlYWQ+PE1F NAMpG59tuYMdmR9PB8aEAC8CSXRE SQDWII9KHK3osQU5KKzzZ9AazrOh ZlxahGYgTD60OEl3TNM9fXbjIYwm yU7stRSvI3q1MvRtDN05oX75BPgh IXQkLxL5ElLltyfluJNg O6myTwSgqWHlIlw+PHRhYmxlIHdp JHVdNMitVSHiLuHrnQxtPL6cJm9c ZGVyLWNvbGxhcHNlOiBj k1rdVFStLOlbKY8krOjuC4GgdZO5 YYOoe1k5Av93dNY+UNApFAN5qBpl LDsgg266MzOhr8qsOWA1 yGZiYYeuZAT4B25vi2E6IAQkFUOc PTP2mNV3uI6fxIusbegoV0AjaDMy DsW0CFO0eQJedM4ztHjw fkxtsW0xXvw+L93XXO5SCLAJBF7Q Ehg0N1SsVdfplMB+HV18VYNmCU97 tUCypNYur0gdxXx7GySv BSTtQVJ7eFykGLtof1LaBOGzU82e vXLbe2Q1HBOssAjcdVMlXcRadXG3 kG2fYFnlabdcb4nfhfbq Ulzkz9lckq70yW40Z31pOTloIWCt YIL3TZSqUWWeqUzpaa1qpY0cWz8+ KGuvt7cka0mjpMn5HvFi KYMxpcNxqVmmKBA5g5AoCo78E8Hg aMnel4YeJjf5jj14sVFkn4W3iLI0 RWliZYNpgU3zDQfjNbU0 GGLuPvUkuN80mJHaBYqpZd2ebQfu mCupTP2gHKTsiizgFVOyqZ4uTJYo lYVwiRwnTX8jBZTjjgxm m168TzLlDNU2XENyrLTeQ8KglA4m NrOvNJQfMXHnG9LwfIHiGZixS381 XQjlHiV9GFDobzItW4Cs EWAlmOzfKoI7s2V0Ca2Bc5Wxouar CZH5FEkzOIK5QjCtAjHsJaW2R6Ys Gmd2LIZtvLbqAC8vY7Ei XUMilysopsuwoBD4EVAoVPBaiU28 jYEzPCakBb9oy8X7p613CKNlQNKk tV23Fq6ciPvoGZQaqWPL mY9giiczn2vvofnzVkHaYFKlKZk2 FNi5DPCalLdySvNfMEA7AnE7GUL2 nGZwuF7luHueixtweD6j Oyc+G04rdF5nPPB2FWK3levdATSy iwXoQI76HF07V5UuFreiuOMgcRY+ XEUugwAblBkjOE2aSkOz k3hma5LgYEjnQ2JtFFGgHKjmQzq3 WVVxAZD4rWD0fT3jBEKfPWocc2L9 sSY6T0KjneZxsy8hj6pl OGFlPYvaH83zlSFxi5L8SCOnrLG7 ZRLfaDaaOzHxqX16Lfq+PGNvbGdy r8DrDobzf8puf6pnuOh7 XlFcGDTuxgIdmLmpACG2p6NaHp01 R79tQYxgAHQqMYBdQSLfKOTrtIzv pl8flP2nTl3+PGNvbCB3 tUW1lJ7oKHUeLtE2CBxyE371ZuEb qNBtVwixa4wqa9vwbTo1WpAtEAPt mhEyfUpkUYT9z7CkXc03 B64dXKqfYQViAZJeEYQeUPEmpAis iq2ivL6gSf3+WX9bu2kqli98mV57 dHI+FWGyCOG5cMqwLCkx EFKjsB8oWLtnQtF2EKYaPjTagU77 dBOaWEclGu8bnOnvuJwhCX1cFNTr sqbje863HlKdj8aaSKZt dEZjTVtqBCX3G58zz1R2HPJhQWXw HBC8aNI3oD1vnSvaukahtCYjzBmk ozAdqSpfCExwROscX404 IHRvcDsnPlBhdGllbnQgTmFtZTo8 D2ZaAds3ZVIrwJhkEV2inYBqMHcl Yk4ipEddbNgkXR0kUHTz pcozr705LqUzy2zsLSYdgACiFXaw WJW2T13hs5W1MXHtBRWoQPP8jQC0 fR8uuIvcctxvlPFwhWde mxUkeIytGQccWCckK870WUTsqMoo OuSicoTjMXVubWC1RV86XB26nYHj f9X5aIF3I5NsNSPgutba gfipwMH1ZNGjESNbmR21Di7pdPei Ig3iZZPgYYD8AOIteHXjF0KuxN9m EgBsGYMeMKMdX5MdkEDr DGiyQ958BUjdTgU8BOSxqtCzF2Ti OKEltMftXaZ9y3C1Vx3QW2A2GE96 NI62mFSgx2C1lVD1P6Ef HRMicxlvtzdjwYG7IFWwRPGwwB89 Pv7eaNwgVh7oYYZeLBG3LYDsgUJw D9NtgV0lNwJoVAVyZGGx S9SdrVTmFJteZ013FZvzKvP8HBNg gmRvC4PuRURcaFloNcV8t1S7Bz0L DDe4PD37ZJ11vMZuj9A2 zFM2Z5PnUMBslbbwdeirfRQ0JQZj EZTthF38Am0lkCwjOs8iWLNpHBN9 JIKjlHSgA2SdtE7uEdNa XKOvLBQdM1RiuGGuQWkbU594SDdo PgY9RAZppmHqE9FyKFUwyKhnAdX5 b3L8Ks5ULPXaMI07RCS7 vVF5FO44FW73J6JmQvwqmNLfsGF+ PHRhYmxlIHdpZHRoPScxMDAlJyBz aGxlNA1bGg9jNJXqYNIz wFjppRJlScXhf6qkZPZsGFgwNA6k tEknJ3YqsIG3WSKyh2u2Ly23T26c M9PgoWB+BJZhaMS6fNJ0 dB0rUfDqTcO9DEgoH988DbIsnIMj Vmvaw6vuh6tgvYx9QcG3WJNzetHx aVdxHJE7l4QcJi64J41e EIcfERXyGZFkWODyXBXrxKacav5e gL2rKw3+IBSiyCI7kUA1lC6bEkVd HfI4GUorB424IzIlwZRa Dtcik9qud0gvqOz2JfHtNJKipuLg hRtsCSQ4c2UxOi89N8RetWyhn5Ji Zsw9no78eCHki7A7zPA8 J0OnOTTnujwgiJSzpFxpNN7oPBVx swruHJQabQ6mENWzV4v9NaLiIwY1 XHqlC7WubiB8QJTnqQFo VGalKUF1G34ht8T0OWSoUEOeLAR9 lEM9kD8rfEgwesuobMTihZvpzfAp wOhtEIziSKzxV483IYAl tQcbGFRggK5gAQNghMFrtLycAR4a EPHmypydHcuQGODuHMkBGMomER5I DJm3Q6ZvXgx7QZCykUpg EM9atEHlSJkmGp8enTcvoXfoAR7x PNMlrvqpGDWteP7wERCbbURdlQwl VJ5iWATbsxyxi007KfXf OEK0EWJtzYHxT7AdtT5pJwOqCZUw ZQQeY7UjfVIjSQsxU584FSfmWyI8 XNXfysAjG2TzHAQlcJnq CiK9r5X7Sj9dUa1dNg9xRTB9SK18 EE28aPKcw8P9qVI1D1ToBJAeophu jopnmCZ6JXSaKCFhrE27 pJTlAPrxFl1ud2N1s001TYItBJZf cI93Lq6uuNuqZTMuzWVBmQ2rghyt r6npssffDuXmXGPzZWk9 CQh7YMPieZyyYcMpNAX4NdS3MXV2 yDQioI9nhCnzyuppwW8mYqj+Nzgg EEPljtD3A6DwRls8RIPk vLpcGI0vwZGkLBehYz4wyYketQzi IL9xUKDyhgcwMGBhyJ7bLKTilEVa dGicUD7vUBWqqmnlj000 RkSzQRM2AOZocQCvJ0DzyK5sRxFy ZDTmBLUaH6IqhHDeYFvzJ662EIqc RvX0GCTxugZjM5PkGXCe vTbcSjP0f4X6Ng7TLM3MVVW9E8Rh Ije9BUXxwMzdRV2niDEiQSjoUp4r xBujxWcdRI1hSWYhsgoa IYHwuK7xUBSwiMAirEzwBC5eZRHw wzrfw403TlQpDBE6ETNpbLDiP9Hy fG1cAxQmKVAxJXWmB9Bp gAHcBQybC744NIqwOtX1LISpeaYv H8TwWHBbkYwsGoN6s3Y2Fn7SZJzb dGQ+XM31zf85P9RwXaib Yyi8HUKvUDW4nHA7jY5hMVFqKRuv y2F3zZB6G7ZkkvBlzj3fq0ogQCHi RZeaG31luMLxv2I0GLWl tMK5CNPlvCcnMtWoiE86Pmv+PGNv gHepy7SgWuons3qqy6apiOb1FhXe TPEbtsDygHdoKQF8y2Ij If72B91iVYhyNNFiHKZtIUJfTUMr wJrisl4jwR7eVg9+SDXdtFW0nSU1 aT7hKyFcJjF4RNteE322 WzCyxMVtCpnnu6uwm5emrIh6RcIa VBNurwBbvFejZPS6r6FqSa13Z4Ny nGzic8CzIdc4ht79hHDy u3R5mHL4X4PvHGZngcgejEWxeNsj KB5qDUQcfqzlKDXgcO7yGMOrE9z3 UjXqMtY5UVraD6BjssW0 KAVemKUuETHexCOSkC3aclfbo4ag tijvMaWtLWXpRDq5PIa5EHEqzHry OpMdPOQ4BfZ0BVH7nZOf qJ1qoQpzauuzsC9nPsg+EPx3o2my oGOiUQ0wqAS9OV28RM38qHHdx6Z8 kJG6G5WiLAZnqefspeln eQM1PYZuFZAaoP77Vj6hbCumRt5n GPToNQD8WBCfhTKmL8ArbU1tWjCd LRPfDDKeS7OkaCZfVQgj V812OHkrFcC3RGNdvoAtE6CeXHXf eNmhCiE2z8S5Po3BOR23GR13LB97 tGXsc1E2yCN3N4CcYZKq wiypgmpsiJM8GVAoOTYlrR55Oy9a vGszKv5fRVTnBXX5DXVjxREzU1Py tH2xAhFdFKJqMHQcL4Qz zCZjKAzsA464LDolSjN1LKEljmOs E3ZfJTIibAuzOhC7d3M1Ue5KQs76 RL96WJ07nYYet4Q4pLC4 C0WqIYZgyhxwdjqpzAS6CKHaVQQx aK11Cn5ikOjwZg5kBBIgXWL7ZYYe jTShR3AniX3fGkLtOLRo MNTkY8NbcILqMJwkY942CIsySnF8 LBGreeOkO1RjULYijCajYsV9q9V6 Xa4WOSubpfg7M5YcDnbv dHI+FJ99QAAvYA46qMZuxBJns7rb gSp9EiTeKVTmYWH2cDckFBdkx2Ox SYGkJ78xaWRpy2A3HSRi bGx (more content not included)... Normal [facility] C MRSA Screenon 06-30-2022 C MRSA Screen Negative [facility] Comment on above: Performed By: #### 1 [id number] ####[facility] (DEFAULT)[address] [place] [address] Progress Note - Nurseon 06-12 Progress Note - Nurse Dr. Castro reviewed PAT notes for upcoming surgery 07/26/2022. No new orders at this time [Electronically Signed on: 06/30/2022 11:45 EDT] Annamarie Samuels RN [Verified on: 06/30/2022 11:45 EDT] Annamarie Samuels RN [facility] Provider Orderson 06-30-2022 Provider Orders [id number] [facility] .Auto Diff 1on 06-29-2022 Auto [place] % 10 % Normal 1-12 [facility] Comment on above: Performed By: #### 7 [id number], [id number] ####[facility] (DEFAULT)[address] [place] [address] Baso Abs# 0.0 x10 Normal 0.0-0.2 [facility] Comment on above: Performed By: #### 7 [id number], [id number], [id number] ####[facility] (DEFAULT)[address] [place] [address] 52887 Basophils/100 WBC (Bld) 0.7 % Normal 0.2-2.0 [facility] Comment on above: Performed By: #### 7 [id number], [id number], [id number] ####[facility] (DEFAULT)[address] [place] [address] 18309 Eos Abs# 0.6 x10 High 0.0-0.4 [facility] Comment on above: Performed By: #### 7 [id number], [id number], [id number] ####[facility] (DEFAULT)[address] [place] [address] 61742 Eosinophils/100 WBC (Bld) 8.5 % High 0.9-4.0 [facility] Comment on above: Performed By: #### 7 [id number], [id number], [id number] ####[facility] (DEFAULT)[address] [place] [address] 83754 Lymph Abs# 1.6 x10 Normal 1.3-2.9 [facility] Comment on above: Performed By: #### 7 [id number], [id number], [id number] ####[facility] (DEFAULT)[address] [place] [address] 21130 Lymphocytes/100 WBC (Bld) 24 % Normal 14-48 [facility] Comment on above: Performed By: #### 7 [id number], [id number], [id number] ####[facility] (DEFAULT)[address] [place] [address] [place] Abs# 0.7 x10 Normal 0.0-0.8 [facility] Comment on above: Performed By: #### 7 [id number], [id number], [id number] ####[facility] (DEFAULT)[address] [place] [address] Neut Abs# 3.8 x10 Normal 1.5-9.2 [facility] Comment on above: Performed By: #### 7 [id number], [id number], [id number] ####[facility] (DEFAULT)[address] [place] [address] Neutrophils/100 WBC (Bld) 57 % Normal 44-88 [facility] Comment on above: Performed By: #### 7 [id number], [id number], [id number] ####[facility] (DEFAULT)[address] [place] [address] BMP Standardon 06-29-2022 eGFR Non AA 33 mL/min/1.73m2 Invalid Interpretation Code [facility] Comment on above: Performed By: #### 7 [id number], [id number], [id number] ####[facility] (DEFAULT)[address] [place] [address] eGFR AA 40 mL/min/1.73m2 Invalid Interpretation Code [facility] Comment on above: Performed By: #### 7 [id number], [id number], [id number] ####[facility] (DEFAULT)[address] [place] [address] Anion gap [Moles/Vol] 8.9 mmol/L Normal 5.0-19.0 [facility] Comment on above: Performed By: #### 7 [id number], [id number], [id number] ####[facility] (DEFAULT)[address] [place] [address] Calcium [Mass/Vol] 9.3 mg/dL Normal 8.9-10.3 [facility] Comment on above: Performed By: #### 7 [id number], [id number], [id number] ####[facility] (DEFAULT)[address] [place] [address] Chloride [Moles/Vol] 102 mmol/L Normal 101-111 [facility] Comment on above: Performed By: #### 7 [id number], [id number], [id number] ####[facility] (DEFAULT)[address] [place] [address]336 CO2 [Moles/Vol] 28 mmol/L Normal 21-32 [facility] Comment on above: Performed By: #### 7 [id number], [id number], [id number] ####[facility] (DEFAULT)[address] [place] [address]991 Creatinine [Mass/Vol] 1.53 mg/dL High 0.60-1.30 [facility] Comment on above: Performed By: #### 7 126827, [id number], [id number] ####[facility] (DEFAULT)[address] [place] [address] 46187 Glucose [Mass/Vol] 107.0 mg/dL Normal 74.0-118.0 [facility] Comment on above: Performed By: #### 7 [id number], [id number], [id number] ####[facility] (DEFAULT)[address] [place] [address] Osmolality 279 mOsm/L Invalid Interpretation Code [facility] Comment on above: Performed By: #### 7 [id number], [id number], [id number] ####[facility] (DEFAULT)[address] [place] [address] 39745 Potassium [Moles/Vol] 3.9 mmol/L Normal 3.6-5.1 [facility] Comment on above: Performed By: #### 7 043057, [id number], [id number] ####[facility] (DEFAULT)[address] [place] [address] 36254 Sodium [Moles/Vol] 135.0 mmol/L Low 136.0-144 . 0 [facility] Comment on above: Performed By: #### 7 824433, [id number], [id number] ####[facility] (DEFAULT)[address] [place] [address] 65834 Urea nitrogen [Mass/Vol] 36 mg/dL High 8-26 [facility] Comment on above: Performed By: #### 7 290417, [id number], [id number] ####[facility] (DEFAULT)[address] [place] [address] Urea nitrogen/Creatinine [Mass ratio] 23.5 mg/mg High 4.6-16.2 [facility] Comment on above: Performed By: #### 7 173809, [id number], [id number] ####[facility] (DEFAULT)[address] [place] [address] CBC w/ Auto Diffon Erythrocyte distribution width (RBC) [Ratio] 12.8 % Normal 11.5-15.0 [facility] Comment on above: Performed By: #### 7 761657, [id number], [id number] ####[facility] (DEFAULT)[address] [place] [address] Hematocrit (Bld) [Volume fraction] 36.4 % Normal 33.7-40.4 [facility] Comment on above: Performed By: #### 7 [id number], [id number], [id number] ####[facility] (DEFAULT)[address] [place] [address]6467 Hemoglobin (Bld) [Mass/Vol] 12.2 g/dL Normal 11.3-15.9 [facility] Comment on above: Performed By: #### 7 213543, [id number], [id number] ####[facility] (DEFAULT)[address] [place] [address] Man Diff? Auto Invalid Interpretation Code [facility] Comment on above: Performed By: #### 7 [id number], [id number], [id number] ####[facility] (DEFAULT)[address] [place] [address] 30866 MCH (RBC) [Entitic mass] 32 pg Normal 24-34 [facility] Comment on above: Performed By: #### 7 044031, [id number], [id number] ####[facility] (DEFAULT)[address] [place] [address] 12387 MCHC (RBC) [Mass/Vol] 33 g/dL Normal 26-37 [facility] Comment on above: Performed By: #### 7 605965, [id number], [id number] ####[facility] (DEFAULT)[address] [place] [address] 04090 MCV (RBC) [Entitic vol] 97 fL Normal 81-100 [facility] Comment on above: Performed By: #### 7 206940, [id number], [id number] ####[facility] (DEFAULT)[address] [place] [address] 17381 Platelet 336 x10 Normal 138-427 [facility] Comment on above: Performed By: #### 7 070569, [id number], [id number] ####[facility] (DEFAULT)[address] [place] [address] 37830 Platelet mean volume (Bld) [Entitic vol] 7.2 fL Normal 6.3-10.2 [facility] Comment on above: Performed By: #### 7 595735, [id number], [id number] ####[facility] (DEFAULT)[address] [place] [address] 86188 RBC 3.77 x10 Normal 3.70-5.30 [facility] Comment on above: Performed By: #### 7 341642, [id number], [id number] ####[facility] (DEFAULT)[address] [place] [address] 03801 WBC 6.7 x10 Normal 3.5-10.5 [facility] Comment on above: Performed By: #### 7 266820, [id number], [id number] ####[facility] (DEFAULT)[address] [place] [address] 97058 UA w Culture if Ind Standard on 06-29-2022 Breakpoint UA Normal [facility] Comment on above: Performed By: #### 1 [id number] #### [facility] (DEFAULT) [address] [place] [address] 9[address]59 Color (U) Yellow Normal [facility] Comment on above: Performed By: #### 1 [id number] #### [facility] (DEFAULT) [address] [place] [address] 74632 Culture? Not Indicated Invalid Interpretation Code [facility] Comment on above: Result Comment: Resu lt created by rule GL_MAGR_ADD_UA_CULT1 Performed By: #### 1 [id number] #### [facility] (DEFAULT) [address] [place] [address] Glucose (U) [Mass/Vol] Negative Normal [facility] Comment on above: Performed By: #### 1 [id number] #### [facility] (DEFAULT) [address] [place] [address] 61268 Ketones Ql (U) Negative Normal [facility] Comment on above: Performed By: #### 1 [id number] #### [facility] (DEFAULT) [address] [place] [address] 57482 Micro? Not Indicated Invalid Interpretation Code [facility] Comment on above: Result Comment: Resu lt created by rule GL_MAGR_ADD_UA_MICRO Performed By: #### 1 [id number] #### [facility] (DEFAULT) [address] [place] [address] 07144 UA Bilirubin Negative Normal [facility] Comment on above: Performed By: #### 1 [id number] #### [facility] (DEFAULT) [address] [place] [address] 65246 UA Blood Negative Normal NEGATIVE [facility] Comment on above: Performed By: #### 1 [id number] #### [facility] (DEFAULT) [address] [place] [address] 72420 UA Clarity CLEAR Normal CLEAR [facility] Comment on above: Performed By: #### 1 [id number] #### [facility] (DEFAULT) [address] [place] [address] 97434 UA Leuk Est Negative Normal NEGATIVE [facility] Comment on above: Performed By: #### 1 [id number] #### [facility] (DEFAULT) [address] [place] [address] 63280 UA Nitrite Negative Normal NEGATIVE [facility] Comment on above: Performed By: #### 1 [id number] #### [facility] (DEFAULT) [address] [place] [address] 72546 UA pH 6.5 Normal 5-8 [facility] Comment on above: Performed By: #### 1 [id number] #### [facility] (DEFAULT) [address] [place] [address] 92049 UA Protein Negative Normal NEGATIVE [facility] Comment on above: Performed By: #### 1 [id number] #### [facility] (DEFAULT) [address] [place] [address] 13672 UA Spec Grav 1.010 Normal 1.001-1.[address] [place] [address] Comment on above: Performed By: #### 1 [id number] #### [facility] (DEFAULT) [address] [place] [address] UA Urobilinogen 0.2 mg/dL Normal 0.2-1.0 [facility] Comment on above: Performed By: #### 1 [id number] #### [facility] (DEFAULT) [address] [place] [address] Urine Source Clean Catch Normal [facility] Comment on above: Performed By: #### 1 [id number] #### [facility] (DEFAULT) [address] [place] [address] 43997 MRI Shoulder w/o Lefton 04-15 MRI Shoulder [...] by Adarsh Adams on 05/11/2022 1041 Normal [facility] SCREENING MAMMOGRAM W/ARABELLA, BILATERAL*on 11-20-2021 SCREENING [...] VERY IMPORTANT TO YOUR HEALTH. THE CURRENT [employer] GUIDELINES RECOMMENDS ANNUAL MAMMOGRAPHY BEGINNING AT AGE 39 THIS FACILITY USES A REMINDER SYSTEM TO ENSURE ALL PATIENTS RECEIVE REMINDER NOTIFICATIONS AT THE APPROPRIATE TIME BASED ON THE RECOMMENDATIONS OF THIS EXAM. Report reported and signed by Alejandro Forte on 11/20/2021 0949 Normal [facility] Comprehensive Metabolic Pane george 06-10-2021 Albumin [Mass/Vol] 4.2 g/dL Normal 3.6-5.1 [place] Comment on above: Performed By: #### C JARVIS DONIS #### [facility] [address] [place], [place] [id number] Albumin/Globulin [Mass ratio] 1.7 {ratio} Normal 1.0-2.5 [facility] Comment on above: Performed By: #### C JEWELS LIPD #### [facility] [address] [place], [place] [id number] ALP [Catalytic activity/Vol] 82 U/L Normal 35-119 [facility] Comment on above: Performed By: #### C JEWELS LIPTeresa #### [facility] [address] [place], [place] [id number] ALT [Catalytic activity/Vol] 15 U/L Normal 6-33 [facility] Comment on above: Result Comment: 02/11 Female reference range changed. Performed By: #### C JEWELS LIPTeresa #### [facility] [address] [place], [place] [id number] Anion gap [Moles/Vol] 15 mmol/L Normal 12-20 [facility] Comment on above: Result Comment: Effe ctive 03/19/2019 reference range changed. Performed By: #### C JARVIS DONIS #### [facility] [address] [place], [place] [id number] AST [Catalytic activity/Vol] 21 U/L Normal 9-34 [facility] Comment on above: Performed By: #### C JEWELS LIPD #### [facility] [address] [place], [place] [id number] BUN/CREA 28 Ratio High 6-22 [facility] Comment on above: Performed By: #### C JEWELS LIPTeresa #### [facility] [address] [place], [place] [id number] Calcium [Mass/Vol] 9.3 mg/dL Normal 8.6-10.2 [facility] Comment on above: Performed By: #### C JEWELS LIPD #### [facility] [address] [place], [place] [id number] Chloride [Moles/Vol] 106 mmol/L Normal 98-107 [facility] Comment on above: Performed By: #### C JEWELS LIPTeresa #### [facility] [address] [place], [place] [id number] CO2 [Moles/Vol] 24 mmol/L Normal 20-31 [facility] Comment on above: Performed By: #### C JEWELS LIPD #### [facility] [address] [place], [place] [id number] Creatinine [Mass/Vol] 1.1 mg/dL Normal 0.6-1.4 [facility] Comment on above: Performed By: #### C JEWELS LIPD #### [facility] [address] [place], [place] [id number] eGFRAA 58 mL/min/1.73m2 Low >60 [facility] Comment on above: Performed By: #### C JEWELS LIPD #### [facility] [address] [place], [place] [id number] eGFRNAA 48 mL/min/1.73m2 Low >60 [facility] Comment on above: Performed By: #### C JEWELS, LIPD #### [facility] [address] [place], [place] [id number] Globulin (S) [Mass/Vol] 2.5 g/dL Normal 1.9-3.7 [facility] Comment on above: Performed By: #### C MP, LIPD #### [facility] [address] [place], [place] [id number] Glucose [Mass/Vol] 94 mg/dL Normal 65-99 [facility] Comment on above: Result Comment: For FASTING Glucose --- ADA reference ranges: Normal 65-99 mg/dl Prediabetes 100-125 Diabetes >/= 126 Performed By: #### C JEWELS, LIPD #### [facility] [address] [place], [place] [id number] Potassium [Moles/Vol] 4.4 mmol/L Normal 3.5-5.5 [facility] Comment on above: Performed By: #### C JEWELS, LIPD #### [facility] [address] [place], [place] [id number] Protein [Mass/Vol] 6.7 g/dL Normal 6.1-8.1 [facility] Comment on above: Performed By: #### C JEEWLS, LIPD #### [facility] [address] [place], [place] [id number] Sodium [Moles/Vol] 141 mmol/L Normal 135-146 [facility] Comment on above: Performed By: #### C JEWELS, LIPD #### [facility] [address] [place], [place] [id number] TBIL <0.3 Normal [facility] Comment on above: Performed By: #### C JEWELS, LIPD #### [facility] [address] [place], [place] [id number] Urea nitrogen [Mass/Vol] 32 mg/dL High 7-25 [facility] Comment on above: Performed By: #### C MP, LIPD #### [facility] [address] [place], [place] [id number] Lipid Panelon 06-10-2021 Cholesterol [Mass/Vol] 237 mg/dL High 125-200 [facility] Comment on above: Result Comment: Low risk < 200mg/dL Borderline risk 201-239 mg/dl High risk > or equal to 240 Performed By: #### C MP, LIPD #### [facility] [address] [place], [place] [id number] Cholesterol in HDL [Mass/Vol] 100 mg/dL Normal >40 [facility] Comment on above: Result Comment: High Cardiovascular Risk HDL <40 mg/dL Low Cardiovascular Risk HDL > or equal to 60 mg/dl Performed By: #### C MP, LIPD #### [facility] [address] [place], [place] [id number] Cholesterol in LDL [Mass/Vol] 124 mg/dL Normal [facility] Comment on above: Result Comment: LDL ATP III CLASSIFICATION LDL less than 100 mg/dl Optimal LDL 100-129 mg/dl Near or above optimal LDL 130-159 Borderline high LDL 160-189 High LDL greater than 189 mg/dl Very High Performed By: #### C MP, LIPD #### [facility] [address] [place], [place] [id number] Cholesterol in VLDL [Mass/Vol] 13 mg/dL Normal [facility] Comment on above: Performed By: #### C JEWELS, LIPD #### [facility] [address] [place], [place] [id number] Cholesterol.total/Ch olesterol in HDL [Mass ratio] 2 {ratio} Normal [facility] Comment on above: Performed By: #### C MP, LIPD #### [facility] [address] [place], [place] [id number] Triglyceride [Mass/Vol] 67 mg/dL Normal 30-150 [facility] Comment on above: Result Comment: TRIG ATPIII CLASSIFICATIONS TRIG less than 150 mg/dl Normal TRIG 150-199 mg/dl Borderline High TRIG 200-500 mg/dl High TRIG greather than 500 mg/dl Very High Performed By: #### C MP, LIPD #### [facility] [address] [place], [place] [id number] ECHOCARDIO M/2D COMPLETEon 0 10-24-2020 ECHOCARDIO M/2D COMPLETE Patient: RADHA CUADRA Exam Date: 10/24/2020 : 1945 Gender:F Ordering : DR SHARI MCKEON M.D. Admission #: [id number] Family : Order #: [id number] CLICK HERE TO VIEW EXAM ECHOCARDIOGRAM REPORT [...] Area(A4C): 13.90 cm2 Left Atrium Systolic Volume(A2C): 08302 mm3 Left Atrium Systolic Volume(A4C): 26300 mm3 Mitral Valve MV E to A Ratio: 1.10 Mitral Valve A-Wave Peak Velocity: 68.60 cm/s Mitral Valve E-Wave Peak Velocity: 74.50 cm/s Deceleration Time: 259 ms Right Ventricle Aorta AO Root Diam: 2.60 cm Aortic Valve Peak Velocity (Antegrade Flow): 161.00 cm/s, 230.00 cm/s AoV Area (Peak Daniel): 1.93 cm2 AoV Area (VTI): 1.90 cm2 Deceleration Sanborn: 1880 mm/s2 Pressure Half-Time: 528 ms Peak [...] M.D. on 10/24/2020 at 19:17 Normal [facility] HEMOGLOBINon 09-30-2020 Hemoglobin (Bld) [Mass/Vol] 12.3 g/dL Normal 12.0-16.0 [facility] Comment on above: Performed By: #### H GB #### [facility] [address] [address] Geraldo Gaitan H PYLORI TISSUEon 02-01-2020 H PYL TISSUE, UREASE Negative Normal NEGATIVE [facility] Comment on above: Performed By: #### H GB #### [facility] [address] [id number] Geraldo Gaitan COVID-19 PCRon 01-27-2020 SARS-CoV-2 (COVID-19) RNA VIVIENNE+probe Ql (Unsp spec) Not detected Normal Not Detected [facility] Comment on above: Result Comment: This nucleic acid amplification test was developed and its performance characteristics determined by [facility]. Nucleic acid amplification tests include PCR and [...] Performed By: #### C VDSTAT, CVDPCR #### [facility] [address] [address] Geraldo Kandy PRIORITY COVID PROCESSINGon 01-27-2020 Comment Comment Normal [facility] Comment on above: Result Comment: Rece ived Performed By: #### C VDSTAT, CVDPCR #### [facility] [address] [address] Geraldo Gaitan CULTURE BLOODon 01-08-2020 Microscopic examination [...] Trimethoprim/Sulfamethoxazol e <=20 S F Normal [facility] Comment on above: Performed By: #### H GB #### [facility] [address] [place] [address] Geraldo Gaitan BLOOD CULTURE ID PANELon A. baumannii Not detected [facility] Comment on above: Performed By: #### B MIRYAM #### [facility] [address] [place] [address] Geraldobhumi Gaitan BCID CONTROLS PASSED Normal [facility] Comment on above: Performed By: #### B MIRYAM #### [facility] [address] [place] [address] Geraldo Gaitan BCIDBTHD BLOOD CULTURE BOTTLE INFORMATION [facility] Comment on above: Performed By: #### B MIRYAM #### [facility] [address] [place] [address] Geraldo Charlesen BCIDHD1 ANTIMICROBIAL RESIST ANCE GENES [facility] Comment on above: Performed By: #### B MIRYAM #### [facility] [address] [place] [address] Geraldo Charlesen BCIDHD2 SEE BELOW [facility] Comment on above: Result Comment: KPC- carbapenem resistance gene, mecA- methecillin resistance gene, van A/B- vancomycin resistance gene Note: Antimicrobial resitance can occur via multiple mechanisms. A Not Detected result for the [employer] antomicrobial resistance gene assays does not indicate antimicrobial susceptibility. Subculturing is required for specis identificationand susceptibility testing of isolates. Performed By: #### B MIRYAM #### [facility] [address] [place] [address] Geraldobhumi Charlesen BCIDHD3 Positive [facility] Comment on above: Performed By: #### B MIRYAM #### [facility] [address] [place] [address] Geraldo Kandy BCIDHD3 Negative [facility] Comment on above: Performed By: #### B MIRYAM #### [facility] [address] [place] [address] Geraldo Kandy BCIDHD5 YEAST Normal [facility] Comment on above: Performed By: #### B MIRYAM #### [facility] [address] [place] [address] Geraldo Gaitan BCIDHD6 SEE BELOW [facility] Comment on above: Result Comment: Note : All genus and species BCID [employer] results will be verified post subculturing via Maldi-Tof MS testing methodology. Performed By: #### B MIRYAM #### [facility] [address] [place] [address] Geraldo Kandy Bottle Set: Set 2 Normal [facility] Comment on above: Performed By: #### B MIRYAM #### [facility] [address] [place] [address] Geraldo Kandy Bottle: Aerobic Normal [facility] Comment on above: Performed By: #### B MIRYAM #### [facility] [address] [place] [address] Geraldo Kandy Naomi albicans Not detected Normal [facility] Comment on above: Performed By: #### B MIRYAM #### [facility] [address] [place] [address] Geraldo Kandy Naomi glabrata Not detected Normal [facility] Comment on above: Performed By: #### B MIRYAM #### [facility] [address] [place] [address] Geraldo Kandy Naoim Krusei Not detected Normal [facility] Comment on above: Performed By: #### B MIRYAM #### [facility] [address] [place] [address] Geraldo Kandy Naomi Parapsilosis Not detected Normal [facility] Comment on above: Performed By: #### B MIRYAM #### [facility] [address] [place] [address] Geraldo Kandy Naomi Tropicalis Not detected Normal [facility] Comment on above: Performed By: #### B MIRYAM #### [facility] [address] [place] [address] Geraldo Kandy E. Cloacae complex Not detected Normal [facility] Comment on above: Performed By: #### B MIRYAM #### [facility] [address] [place] [address] Geraldo Kandy Enterobacteriaceae Detected Invalid Interpretation Code [facility] Comment on above: Performed By: #### B MIRYAM #### [facility] [address] [place] [address] Geraldo Kandy Enterococcus Not detected Normal [facility] Comment on above: Performed By: #### B MIRYAM #### [facility] [address] [place] [address] Geraldo Kandy Escheria coli Detected Normal [facility] Comment on above: Performed By: #### B MIRYAM #### [facility] [address] [place] [address] Geraldo Kandy K. oxytoca Not detected Normal [facility] Comment on above: Performed By: #### B MIRYAM #### [facility] [address] [place] [address] Geraldo Kandy K. pneumoniae Not detected Normal [facility] Comment on above: Performed By: #### B MIRYAM #### [facility] [address] [place] [address] Geraldo Kandy KPC Resistant Gene Not detected Normal [facility] Comment on above: Performed By: #### B MIRYAM #### [facility] [address] [place] [address] Geraldo Kandy List. monocytogenes Not detected Normal [facility] Comment on above: Performed By: #### B MIRYAM #### [facility] [address] [place] [address] Geraldo Kandy mecA Resistant Gene Not detected Normal [facility] Comment on above: Performed By: #### B MIRYAM #### [facility] [address] [place] [address] Geraldo Kandy Proteus Not detected Normal [facility] Comment on above: Performed By: #### B MIRYAM #### [facility] [address] [place] [address] Geraldo Kandy Pseud. aeruginosa Not detected Normal [facility] Comment on above: Performed By: #### B MIRYAM #### [facility] [address] [place] [address] Geraldo Kandy Seratia marcescens Not detected Normal [facility] Comment on above: Performed By: #### B MIRYAM #### [facility] [address] [place] [address] Geraldo Gaitan Site: R AC Normal [facility] Comment on above: Performed By: #### B MIRYAM #### [facility] [address] [place] [address] Geraldo Gaitan Staph. aureus Not detected Normal [facility] Comment on above: Performed By: #### B MIRYAM #### [facility] [address] [place] [address] Geraldo Gaitan Staphylococcus Not detected Normal [facility] Comment on above: Performed By: #### B MIRYAM #### [facility] [address] [place] [address] Geraldo Gaitan Strep. agalactiae Not detected Normal [facility] Comment on above: Performed By: #### B MIRYAM #### [facility] [address] [place] [address] Geraldo Gaitan Strep. pneumoniae Not detected Normal [facility] Comment on above: Performed By: #### B MIRYAM #### [facility] [address] [place] [address] Geraldo Gaitan Strep. pyogenes Not detected Normal [facility] Comment on above: Performed By: #### B MIRYAM #### [facility] [address] [place] [address] Geraldo Gaitan Streptococcus Not detected Normal [facility] Comment on above: Performed By: #### B MIRYAM #### [facility] [address] [place] [address] Geraldo Gaitan Aicha/B Resist. Gene Not detected Normal [facility] Comment on above: Performed By: #### B MIRYAM #### [facility] [address] [place] [address] Geraldo Gaitan CBC AUTO DIFFon 01-02-2020 BASO # 0.0 103/ul Normal 0.0-0.1 [facility] Comment on above: Performed By: #### C BC #### [facility] [address] [place] [address] Geraldo Gaitan Basophils/100 WBC (Bld) 0.3 % Normal 0.2-2.0 [facility] Comment on above: Performed By: #### C BC #### [facility] [address] [place], [place] [id number] Geraldo Kandy EO # 0.0 103/ul Normal 0.0-0.7 [facility] Comment on above: Performed By: #### C BC #### [facility] [address] [place], [place] [id number] Geraldo Kandy Eosinophils/100 WBC (Bld) 0.3 % Critically low 0.9-7.0 [facility] Comment on above: Performed By: #### C BC #### [facility] [address] [place] [address] Geraldo Kandy Erythrocyte distribution width (RBC) [Ratio] 12.6 % Normal 11.0-15.0 [facility] Comment on above: Performed By: #### C BC #### [facility] [address] [place] [address] Geraldo Kandy Hematocrit (Bld) [Volume fraction] 42.7 % Normal 36.0-48.0 [facility] Comment on above: Performed By: #### C BC #### [facility] [address] [place] [address] Geraldo Kandy Hemoglobin (Bld) [Mass/Vol] 13.6 g/dL Normal 12.0-16.0 [facility] Comment on above: Performed By: #### C BC #### [facility] [address] [place] [address] Geraldo Kandy IG # 0.04 10e3/ul Critically high 0.00-0.03 [facility] Comment on above: Performed By: #### C BC #### [facility] [address] [place] [address] Geraldo Kandy IG % 0.3 % Normal 0.0-0.5 [facility] Comment on above: Performed By: #### C BC #### [facility] [address] [place] [address] Geraldo Kandy LYMPH # 0.5 103/ul Critically low 1.2-3.8 [facility] Comment on above: Performed By: #### C BC #### [facility] [address] [place], [place] [id number] Geraldo Gaitan Lymphocytes/100 WBC (Bld) 4.4 % Critically low 20.5-60.0 [facility] Comment on above: Performed By: #### C BC #### [facility] [address] [place] [address] Geraldo Gaitan MANUAL DIFF REQ NO Normal [facility] Comment on above: Performed By: #### C BC #### [facility] [address] [place], [place] [id number] Geraldobhumi Gaitan MCH (RBC) [Entitic mass] 30.6 pg Normal 26.7-34.0 [facility] Comment on above: Performed By: #### C BC #### [facility] [address] [place] [address] Geraldobhumi Gaitan MCHC (RBC) [Mass/Vol] 31.9 g/dL Normal 29.9-35.2 [facility] Comment on above: Performed By: #### C BC #### [facility] [address] [place] [address] Geraldobhumi Gaitan MCV (RBC) [Entitic vol] 96.0 fL Normal 81.0-99.0 [facility] Comment on above: Performed By: #### C BC #### [facility] [address] [place], [place] [id number] Geraldobhumi Charlesen MONO # 0.8 103/ul Normal 0.3-0.8 [facility] Comment on above: Performed By: #### C BC #### [facility] [address] [place] [address] Geraldobhumi Charlesen Monocytes/100 WBC (Bld) 6.5 % Normal 1.7-12.0 [facility] Comment on above: Performed By: #### C BC #### [facility] [address] [place], [place] [id number] Geraldo Kandy NEUT # 10.1 103/ul Critically high 1.4-6.5 [facility] Comment on above: Performed By: #### C BC #### [facility] [address] [place], [place] [id number] Geraldo Kandy Neutrophils/100 WBC (Bld) 88.2 % Critically high 43.0-75.0 [facility] Comment on above: Performed By: #### C BC #### [facility] [address] [place] [address] Geraldo Gaitan Platelet mean volume (Bld) [Entitic vol] 9.8 fL Normal 9.5-13.5 [facility] Comment on above: Performed By: #### C BC #### [facility] [address] [place] [address] Geraldo Gaitan PLT 254 103/ul Normal 150-450 [facility] Comment on above: Performed By: #### C BC #### [facility] [address] [place] [address] Geraldo Gaitan RBC 4.45 106/ul Normal 4.20-5.40 [facility] Comment on above: Performed By: #### C BC #### [facility] [address] [place], [place] [id number] Geraldo Gaitan CT HEAD WO CONon 01-02-2020 [...] and right ethmoid sinusitis. Electronically authenticated by: ERMY NESS Date: 2020-01-02 19:00 Normal [facility] CULTURE BLOODon 01-02-2020 Microscopic examination of blood, culture Culture Observations: No growth at 5 days Normal [facility] Comment on above: Performed By: #### H GB #### [facility] [address] [place] [address] Geraldo Kandy CULTURE URINEon 01-02-2020 CULTURE URINE Culture Observations : Light growth of mixed genital eliezer.No potential pathogens seen. Normal [facility] Comment on above: Performed By: #### H GB #### [facility] [address] [place] [address] Geraldo Kandy ER URINE PROFILEon 0 Bilirubin Ql (U) Negative Normal NEGATIVE [facility] Comment on above: Performed By: #### MELODY CORDOVA #### [facility] [address] [place] [address] Geraldo Kandy Clarity (U) SL CLOUDY Normal [facility] Comment on above: Performed By: #### MELODY CORDOVA #### [facility] [address] [place] [address] Geraldo Kandy Color (U) LT. YELLOW Normal YELLOW [facility] Comment on above: Performed By: #### MELODY CORDOVA #### [facility] [address] [place] [address] Geraldo Kandy ERUAHD A micrscopic examina tion will be performed if indicated. Normal [facility] Comment on above: Performed By: #### MELODY CORDOVA #### [facility] [address] [place] [address] Geraldo Kandy Glucose Ql (U) Negative Normal NEGATIVE [facility] Comment on above: Performed By: #### MELODY CORDOVA #### [facility] [address] [place] [address] Geraldo Kandy Hemoglobin Ql (U) SMALL Normal NEGATIVE [facility] Comment on above: Performed By: #### MELODY CORDOVA #### [facility] [address] [place] [address] Geraldo Kandy Ketones Ql (U) Negative Normal NEGATIVE [facility] Comment on above: Performed By: #### MELODY CORDOVA #### [facility] [address] [place] [address] Geraldo Kandy LEUKOCYTES TRACE Normal NEGATIVE [facility] Comment on above: Performed By: #### MELODY CORDOVA #### [facility] [address] [place], [place] [id number] Geraldo Kandy Nitrite Ql (U) Negative Normal NEGATIVE [facility] Comment on above: Performed By: #### KANDICE CORDOVARO #### [facility] [address] [place], [place] [id number] Geraldo Kandy pH (U) 7.0 [pH] Normal 5-9 [facility] Comment on above: Performed By: #### KANDICE CORDOVARO #### [facility] [address] [place] [address] Geraldo Kandy Protein Ql (U) 30 mg/dl Normal [facility] Comment on above: Performed By: #### MELODY CORDOVA #### [facility] [address] [place] [address] Geraldo Kandy SPEC GRAVITY 1.015 Normal 1.005-<=1. 025 [facility] Comment on above: Performed By: #### KANDICE CORDOVARO #### [facility] [address] [place] [address] Geraldo Kandy UR MICRO IND INDICATED Normal [facility] Comment on above: Performed By: #### KANDICE CORDOVARO #### [facility] [address] [place], [place] [id number] Geraldo Kandy Urobilinogen Qn (U) 0.2 {Eileen'U}/dL Normal [facility] Comment on above: Performed By: #### KANDICE CORDOVARO #### [facility] [address] [place], [place] [id number] Geraldo Kandy LACTATE/LACTIC ACIDon 2019 Lactate [Moles/Vol] 1.1 mmol/L Normal 0.7-2.0 [facility] Comment on above: Performed By: #### H GB #### [facility] [address] [place] [address] Geraldo Kandy PROCALCITONINon 01-02-2020 PCT header 1 SEE BELOW Normal [facility] Comment on above: Result Comment: PCT <0.5ng/mL: Systemic infection (sepsis) is not likely, local bacterial infection possible, low risk for progression to severe systemic infection (severe sepsis) Performed By: #### P RL #### [facility] [address] [place] [address] Geraldobhumi Gaitan PCT header 2 SEE BELOW Normal [facility] Comment on above: Result Comment: PCT >/=0.5 and <2 ng/mL: Systemic infection (sepsis) is possible, moderate risk for progression to severe systemic infection (severe sepsis) Performed By: #### P RL #### [facility] [address] [place] [address] Geraldo Kandy PCT header 3 SEE BELOW Normal [facility] Comment on above: Result Comment: PCT >/=2.0 and <10 ng/mL: Systemic infection (sepsis) is likely, unless other causes are known, high risk for progession to severe systemic infection(severe sepsis) Performed By: #### P RL #### [facility] [address] [place] [address] Geraldo Kandy PCT header 4 SEE BELOW Normal [facility] Comment on above: Result Comment: PCT >/= 10 ng/mL: Important systemic inflammatory response almost exclusively due to severe bacterial sepsis or septic shock, high likelihood of severe sepsis or septic shock Performed By: #### P RL #### [facility] [address] [place] [address] Geraldobhumi Gaitan PROCALCITONIN 0.62 ng/mL Critically high 0.00-0.50 [facility] Comment on above: Performed By: #### P RL #### [facility] [address] [place] [address] Geraldo Gaitan PROF 14(COMP METB)on 020 Albumin [Mass/Vol] 3.6 g/dL Normal 3.5-5.0 [facility] Comment on above: Performed By: #### C MP #### [facility] [address] [place] [address] Geraldo Gaitan Albumin/Globulin [Mass ratio] 0.8 {ratio} Normal [facility] Comment on above: Performed By: #### C MP #### [facility] [address] [id number] Geraldo Kandy ALP [Catalytic activity/Vol] 95 U/L Normal 38-126 [facility] Comment on above: Performed By: #### C MP #### [facility] [address] [id number] Geraldo Kandy ALT [Catalytic activity/Vol] 32 U/L Normal 9-52 [facility] Comment on above: Performed By: #### C MP #### [facility] [address] [place], [place] [id number] Geraldo Kandy Anion gap [Moles/Vol] 13.8 mmol/L Normal [facility] Comment on above: Performed By: #### C MP #### [facility] [address] [place] [address] Geraldo Kandy AST [Catalytic activity/Vol] 42 U/L Critically high 14-36 [facility] Comment on above: Performed By: #### C MP #### [facility] [address] [place] [address] Geraldo Kandy Bilirubin [Mass/Vol] 0.5 mg/dL Normal 0.2-1.3 [facility] Comment on above: Performed By: #### C MP #### [facility] [address] [place] [address] Geraldo Kandy Calcium [Mass/Vol] 9.4 mg/dL Normal 8.4-10.2 [facility] Comment on above: Performed By: #### C MP #### [facility] [address] [place] [address] Geraldo Kandy Chloride [Moles/Vol] 100 mmol/L Normal 98-107 [facility] Comment on above: Performed By: #### C MP #### [facility] [address] [place], [place] [id number] Geraldo Kandy CO2 [Moles/Vol] 24.6 mmol/L Normal 22.0-30.0 [facility] Comment on above: Performed By: #### C MP #### [facility] [address] [place], [place] [id number] Geraldo Kandy Creatinine [Mass/Vol] 1.36 mg/dL Critically high 0.52-1.04 [facility] Comment on above: Performed By: #### C MP #### [facility] [address] [place], [place] [id number] Geraldo Kandy EGFR-AF DUTCH 46 mL/min/1.73m2 Critically low >=60 [facility] Comment on above: Performed By: #### C MP #### [facility] [address] [id number] Geraldo Kandy EGFR-NON AF DUTCH 38 mL/min/1.73m2 Critically low >=60 [facility] Comment on above: Performed By: #### C MP #### [facility] [address] [place], [place] [id number] Geraldo Kandy Globulin (S) [Mass/Vol] 4.5 g/dL Normal [facility] Comment on above: Performed By: #### C MP #### [facility] [address] [place] [address] Geraldo Kandy Glucose [Mass/Vol] 120 mg/dL Critically high 74-106 [facility] Comment on above: Performed By: #### C MP #### [facility] [address] [place], [place] [id number] Geraldo Kandy Potassium [Moles/Vol] 3.4 mmol/L Normal 3.4-5.0 [facility] Comment on above: Performed By: #### C MP #### [facility] [address] [place], [place] [id number] Geraldo Kandy Protein [Mass/Vol] 8.1 g/dL Normal 6.1-8.2 [facility] Comment on above: Performed By: #### C MP #### [facility] [address] [place], [place] [id number] Geraldo Kandy Sodium [Moles/Vol] 135 mmol/L Critically low 137-145 Th [facility] Comment on above: Performed By: #### C MP #### [facility] [address] [place], [place] [id number] Geraldo Kandy Urea nitrogen [Mass/Vol] 22.0 mg/dL Critically high 7.0-17.0 [facility] Comment on above: Performed By: #### C MP #### [facility] [address] [place] [address] Geraldo Kandy Urea nitrogen/Creatinine [Mass ratio] 16.2 mg/mg Normal [facility] Comment on above: Performed By: #### C MP #### [facility] [address] [place] [address] Geraldo Kandy RESPIRATORY PANEL PLUSon Adenovirus Not detected Normal NOT DETECTED [facility] Comment on above: Performed By: #### R SPLUS #### [facility] [address] [place] [address] Geraldo Kandy B. Parapertusis Not detected Normal NOT DETECTED [facility] Comment on above: Performed By: #### R SPLUS #### [facility] [address] [place] [address] Geraldo Kandy B. Pertussis Not detected Normal NOT DETECTED [facility] Comment on above: Performed By: #### R SPLUS #### [facility] [address] [place] [address] Geraldo Kandy Chlamydia Pneumoniae Not detected Normal NOT DETECTED [facility] Comment on above: Performed By: #### R SPLUS #### [facility] [address] [place] [address] Geraldo Kandy Coronavirus 229E Not detected Normal NOT DETECTED [facility] Comment on above: Performed By: #### R SPLUS #### [facility] [address] [place] [address] Geraldo Kandy Coronavirus HKU1 Not detected Normal NOT DETECTED [facility] Comment on above: Performed By: #### R SPLUS #### [facility] [address] [place] [address] Geraldo Kandy Coronavirus NL63 Not detected Normal NOT DETECTED [facility] Comment on above: Performed By: #### R SPLUS #### [facility] [address] [place] [address] Geraldo Kandy Coronavirus OC43 Not detected Normal NOT DETECTED [facility] Comment on above: Performed By: #### R SPLUS #### [facility] [address] [place] [address] Geraldo Kandy Influenza A H1 2009 Not detected Normal NOT DETECTED [facility] Comment on above: Performed By: #### R SPLUS #### [facility] [address] [place] [address] Geraldo Kandy Influenza B Not detected Normal NOT DETECTED [facility] Comment on above: Performed By: #### R SPLUS #### [facility] [address] [place] [address] Geraldo Kandy Metapneumovirus Not detected Normal NOT DETECTED [facility] Comment on above: Performed By: #### R SPLUS #### [facility] [address] [place] [address] Geraldo Kandy Mycoplas. Pneumoniae Not detected Normal NOT DETECTED [facility] Comment on above: Performed By: #### R SPLUS #### [facility] [address] [place] [address] Geraldo Kandy Parainfluenza 1 Not detected Normal NOT DETECTED [facility] Comment on above: Performed By: #### R SPLUS #### [facility] [address] [place] [address] Geraldo Kandy Parainfluenza 2 Not detected Normal NOT DETECTED [facility] Comment on above: Performed By: #### R SPLUS #### [facility] [address] [place] [address] Geraldo Kandy Parainfluenza 3 Not detected Normal NOT DETECTED [facility] Comment on above: Performed By: #### R SPLUS #### [facility] [address] [place] [address] Geraldo Kandy Parainfluenza 4 Not detected Normal NOT DETECTED [facility] Comment on above: Performed By: #### R SPLUS #### [facility] [address] [place] [address] Geraldo Kandy Rhino/Enterovirus Not detected Normal NOT DETECTED [facility] Comment on above: Performed By: #### R SPLUS #### [facility] [address] [place] [address] Geraldo Gaitan RP2 Header 1 RESPIRATORY PANEL: VIRUSES Normal [facility] Comment on above: Performed By: #### R SPLUS #### [facility] [address] [place] [address] Geraldo Gaitan RP2 Header 2 RESPIRATORY PANEL: BACTERIA Normal [facility] Comment on above: Performed By: #### R SPLUS #### [facility] [address] [place] [address] Geraldo Gaitan RP2 Header 4 EUA SEE BELOW Normal [facility] Comment on above: Result Comment: This test is not yet approved or cleared by the [place] FDA. When there are no FDA-approved or cleared tests available, and other criteria are met, FDA can make tests available under an emergency access mechanism called an Emergency Use Authorization (EUA). The EUA for this test is supported by the Member Service Representative of Health and Human Service?s (HHS?s) declaration [...] used). Performed By: #### R SPLUS #### [facility] [address] [place] [address] Geraldo Gaitan RSV Not detected Normal NOT DETECTED [facility] Comment on above: Performed By: #### R SPLUS #### [facility] [address] [place] [address] Geraldo Gaitan SARS-CoV-2 (COVID-19) RNA VIVIENNE+probe Ql (Unsp spec) Not detected Normal NOT DETECTED [facility] Comment on above: Performed By: #### R SPLUS #### [facility] [address] [place] [address] Geraldo Gaitan URINE MICROSCOPIC ONLYon BACTERIA MODERATE Normal NONE SEEN [facility] Comment on above: Performed By: #### MELODY CORDOVA #### [facility] [address] [place], [place] [address] Geraldo Kandy Bacteria identified Cx Nom (U) INDICATED Normal [facility] Comment on above: Performed By: #### KANDICE CORDOVARO #### [facility] [address] [place], [place] [id number] Geraldo Kandy CAST NONE SEEN Normal NONE SEEN [facility] Comment on above: Performed By: #### Luis SHAH UMICRO #### [facility] [address] [place], [place] [id number] Geraldo Kandy Crystals LM Nom (Urine sed) NONE SEEN Normal NONE SEEN [facility] Comment on above: Performed By: #### Luis SHAH UMJUSTYNARO #### [facility] [address] [place], [place] [address] Geraldo Kandy Epithelial cells LM Ql (Urine sed) RARE Normal [facility] Comment on above: Performed By: #### KANDICE CORDOVARO #### [facility] [address] [place], [place] [id number] Geraldo Kandy MUCOUS NONE SEEN Normal NONE SEEN [facility] Comment on above: Performed By: #### KANDICE CORDOVARO #### [facility] [address] [place], [place] [id number] Geraldo Kandy RBC 0-2 Normal 0-2 [facility] Comment on above: Performed By: #### KANDICE CORDOVARO #### [facility] [address] [place], [place] [address] Geraldo Kandy WBC 5-10 Normal NONE SEEN [facility] Comment on above: Performed By: #### KANDICE CORDOVARO #### [facility] [address] [place], [place] [id number] Geraldo Kadny XR CHEST 1 Von 01-02-2020 XR CHEST [...] by: REMY NESS Date: 2020-01-02 18:52 Normal [facility] Vital Signs Date Time Vital Sign Value Performing Clinician Faci lity 01-24-2024 13:040500 Body height 149.9 cm Roger Vasquez DPM Work Phone: [facility] 01-24-2024 13:04-0500 Body mass index (BMI) [Ratio] 20.2 kg/m2 Roger Vasquez DPM Work Phone: [facility] 01-24-2024 13:04050 Body weight 45.36 kg Roger Vasquez DPM Work Phone: [facility] Healthcare Encounters Encounter Date Encounter Type Care Provider Facility Start: 02-20-2024 End: 02-20-2024 ambulatory Kei Espana MD Facility:[facility] Start: 02-07-2024 End: 02-07-2024 Meredith Mckeon MD Work Phone: [facility] Comment on above: Mild intermittent as thma, unspecified whether complicated ([facility]) Start: 02-06-2024 End: 02-06-2024 ambulatory Kei Espana MD Facility:[facility] Start: 01-24-2024 End: 01-24-2024 Bamboo flowsheet Roger Vasquez DPM Work Phone: [facility] Start: 01-24-2024 End: 01-24-2024 Bamboo flowsheet Roger Vasquez DPM Work Phone: [facility] Start: 01-24-2024 End: 01-24-2024 Office outpatient visit 15 minutes Roger Vasquez DPM Work Phone: [facility] Comment on above: Dermatophytosis of n ail (Primary Dx); Dystrophic nail; Onychocryptosis; Pain of left great toe Start: 01-24-2024 End: 01-24-2024 ambulatory ROGER VASQUEZ Not Available Start: 01-23-2024 End: 01-23-2024 ambulatory Kei Espana MD Facility:[facility] Start: 01-09-2024 End: 01-09-2024 ambulatory Kei Espana MD Facility: [facility] Start: 12-28-2023 End: 12-28-2023 ambulatory SHARI MCKEON [...] 12-12-2023 End: 12-12-2023 ambulatory Kei Espana MD Facility: [facility] Start: 12-09-2023 End: 12-09-2023 Refill Shari Mckeon MD Work Phone: [facility] Comment on above: Mild intermittent as thma, unspecified whether complicated ([facility]) Start: 11-28-2023 End: 11-28-2023 ambulatory Kei Espana MD Facility: [place] Start: 11-17-2023 End: 11-17-2023 Refill Shari Mckeon MD Work Phone: [facility] Comment on above: Essential hypertensi on (CMS/[facility]) Start: 10-04-2023 End: 10-04-2023 ambulatory [facility] Start: 09-19-2023 End: 09-19-2023 ambulatory [facility] Not Available Start: 09-19-2023 End: 09-19-2023 ambulatory [facility] Not Available Start: 09-05-2023 End: 09-05-2023 ambulatory Kei Espana MD Facility: [facility] Start: 08-22-2023 End: 08-22-2023 ambulatory Kei Espana MD Facility[facility] Start: 07-25-2023 End: 07-25-2023 ambulatory Kei Espana MD Facility:[facility] Start: 07-11-2023 End: 07-11-2023 ambulatory Kei Espana MD Facility:[facility] Start: 06-17-2023 End: 06-17-2023 ambulatory ALEXANDER APARICIO Not Available Start: 04-27-2023 Telephone encounter Marisa sierra DO Work Phone: [facility] 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 Start: 04-21-2023 Refill Alexander Aparicio [facility] Work Phone: [facility] Comment on above: Essential hypertensi on ([facility]) Start: 04-18-2023 End: 04-18-2023 ambulatory ALEXANDERJODEE APARICIO Not Available Start: 03-08-2023 End: 03-08-2023 ambulatory MARISA Temo PATRICIA Not Available Start: 03-01-2023 End: 03-01-2023 ambulatory MARISA RAMOS Not Available Start: 02-22-2023 End: 02-22-2023 ambulatory MARISA RAMOS Not Available Start: 02-08-2023 End: 02-08-2023 ambulatory MARISA RMAOS Not Available Start: 02-01-2023 End: 02-01-2023 ambulatory MARISA RAMOS Not Available Start: 01-28-2023 End: 01-28-2023 ambulatory SHARI MCKEON Not Available Start: 07-26-2022 End: 07-26-2022 ambulatory SHARI MCKEON Facility:[facility] Start: 06-29-2022 End: 06-30-2022 ambulatory SHARI MCKEON Facility:[facility] Start: 10-24-2020 End: 10-25-[address] SHARI MCKENO Facility: Start: 09-30-2020 End: 10-01-[address] SHARI MCKEON Facility:[facility] Start: 02-01-2020 End: 02-01-[address] CARLOS EDUARDO MENENDEZ Facility:[facility] Start: 01-30-2020 Encounter for preprocedural laboratory examination DR CARLOS EDUARDO MENENDEZ [facility] Start: 01-26-2020 End: 01-27-[address] SHARI MCKEON Facility:[facility] Start: 01-26-2020 End: 01-27-2020 Encounter for preprocedural laboratory examination DR SHARI MCKEON Facility:[facility] Start: 01-02-2020 End: 01-02-[address] BÁRBARA BLUE Facility:[facility] Start: 05-25-2018 End: 05-26-2018 Patient encounter procedure DEFAULT PHYSICIAN Facility:[facility] Plan of Treatment Date Care Activity Detail Author Start: 06-16-2024 Medicare Annual Wellness (AWV) Medicare Annual Wellness (AWV) [facility] Start: 12-28-2023 End: 12-28-2023 Professional / ancillary services management 12/28/2023 9:00 AM EDT Ancillary Procedure [facility] [address] [place] [id number] [facility] Start: 12-13-2023 End: 02-11-2025 MG Breast - bilateral Screening Bilateral screening mammogram Imaging Routine Encounter for screening mammogram for malignant neoplasm of breast Expected: 12/13/2023, Expires: 02/11/2025 [facility] Work Phone: Comment on above: Expected: 12/13/2023 , Expires: 02/11/2025 Start: 11-13-2023 Influenza vaccination Influenza Vacc ine (#1) [facility] Start: 08-02-2023 End: 08-02-2023 Patient encounter procedure 08/02/2023 9:00 AM EDT Office Visit [facility] [address] [place] [address] Marisa Ramos DO [address] [place] [address] [facility] Start: 05-06-2023 Medicare Annual Wellness (AWV) Medicare Annual Wellness (AWV) [facility] Immunizations Immunization Date Immunization Notes Care Provider Fa cility 10-12-2023 Influenza, High-dose Seasonal, Quadrivalent, Preservative Free Alexander Hackenburg [employer] Work Phone: [facility] 12-23-2022 SARS-COV-2 (COVID-19 ) vaccine, mRNA, spike protein, LNP, PF, 50 mcg/0.5 mL Alexander Hackenburg [employer] Work Phone: [facility] 12-23-2022 influenza virus vaccine, unspecified formulation Shari Mckeon MD Work Phone: [facility] 12-01-2021 Influenza, Seasonal, Quadrivalent, Adjuvanted Alexander Hackenburg [employer] Work Phone: [facility] 12-01-2021 Seasonal, trivalent, recombinant, injectable influenza vaccine, preservative free Alexander Hackenburg [employer] Work Phone: [facility] 12-16-2020 Influenza, High-dose Seasonal, Quadrivalent, Preservative Free Alexander Hackenburg [employer] Work Phone: [facility] 02-14-2020 zoster vaccine recombinant Alexander Hackenburg [employer] Work Phone: [facility] 12-07-2019 influenza, seasonal, injectable Alexander Hackenburg [employer] Work Phone: [facility] 11-13-2019 influenza, injectabl e, quadrivalent, preservative free Alexander Hackenburg [employer] Work Phone: [facility] 11-13-2019 zoster vaccine recombinant Alexander Hackenburg [employer] Work Phone: [facility] 11-12-2019 zoster vaccine recombinant Alexander Hackenburg [employer] Work Phone: [facility] 11-29-2018 Seasonal trivalent influenza vaccine, adjuvanted, preservative free Alexander Hackenburg [employer] Work Phone: [facility] 11-30-2017 influenza, high dose seasonal, preservative-free Alexander Hackenburg [employer] Work Phone: [facility] 11-24-2017 Seasonal trivalent influenza vaccine, adjuvanted, preservative free Alexander Hasobiaenburg [employer] Work Phone: [facility] 11-18-2016 influenza, high dose seasonal, preservative-free Alexander Hasobiaenburg [employer] Work Phone: [facility] Work Phone: 11-18-2016 pneumococcal conjuga te vaccine, 13 valent Alexander Hasobiaenburg [employer] Work Phone: [facility] 11-18-2016 Seasonal trivalent influenza vaccine, adjuvanted, preservative free Alexander Hasobiaenburg [employer] Work Phone: [facility] 11-18-2016 tetanus toxoid, redu greg diphtheria toxoid, and acellular pertussis vaccine, adsorbed Alexander Patrickenburg [employer] Work Phone: [facility] 11-12-2016 pneumococcal polysaccharide vaccine, 23 valent Alexander Hasobiaenburg [employer] Work Phone: [facility] 12-11-2015 influenza, high dose seasonal, preservative-free Alexander Hasobiaenburg [employer] Work Phone: [facility] 12-30-2014 influenza virus vaccine, whole virus Alexander Hasobiaenburg [employer] Work Phone: [facility] 12-30-2014 influenza, injectabl e, quadrivalent, preservative free Alexander Hasobiaenburg [employer] Work Phone: [facility] 05-10-2014 pneumococcal conjuga te vaccine, 13 valent Alexander Hasobiaenburg [employer] Work Phone: [facility] 12-13-2013 influenza virus vaccine, whole virus Alexander Hasobiaenburg [employer] Work Phone: [facility] 01-12-2013 pneumococcal Conjuga te, unspecified formulation Alexander Hasobiaenburg [employer] Work Phone: [facility] 01-12-2013 seasonal influenza, intradermal, preservative free Alexander Hackenburg [employer] Work Phone: [facility] 12-27-2012 pneumococcal polysaccharide vaccine, 23 valent Alexander Hackenburg [employer] Work Phone: [facility] Payers Date Payer Category Payer Unknown 2017 Medicare ANTH MEDICARE ADVANTAGE ANTH MEDICARE ADVANTAGE [id number] 2017-Present [address] [place] [address] [id number] 2017 Medicare (Managed Care) [employer] ADVANTAGE [id number] 1959 Unknown [id number] 1945 Unknown [id number] 2.840.1.117206.3.579. 2.647 1944 Unknown [id number] 2.840.1.003690.3.579. 2.593 1944 Unknown [id number] 2.840.1.350238.3.579. 2.593 1944 Unknown [id number] 2.16840.1.694881.3.579. 2.593 1944 Unknown [id number] 2.16840.1.887946.3.579. 2.593 1944 Unknown [id number] 2.16840.1.108878.3.579. 2.593 1944 Unknown [id number] 2.16840.1.103856.3.579. 2.718 1944 Unknown [id number] 2.16.840.1.111323.3.579. 2.718 1944 Unknown [id number] 2.16.840.1.109492.3.579. 2.1286 1944 Unknown [id number] 2.16.840.1.573508.3.579. 2.1259 1944 Unknown [id number] 2.16.840.1.469324.3.579. 2.1259 1944 Unknown [id number] 2.16.840.1.072182.3.579. 2.1259 1944 Unknown [id number] 2.16.840.1.880290.3.579. 2.9 1944 Unknown [id number] 2.16.840.1.665856.3.579. 2.9 1944 Unknown [id number] 2.16840.1.822143.3.579. 2.1259 1944 Unknown [id number] 2.16.840.1.053138.3.579. 2.1258 1944 Unknown [id number] 2.16.840.1.488816.3.579. 2.1259 1944 Unknown [id number] 2.16.840.1.392356.3.579. 2.1259 1944 Unknown [id number] 2.16.840.1.751773.3.579. 2.1259 1944 Unknown [id number] 2.16.840.1.793126.3.579. 2.1259 1944 Unknown [id number] 2.16.840.1.919227.3.579. 2.1259 1944 Unknown [id number] 2.16.840.1.001971.3.579. 2.1259 1944 Unknown [id number] 2.16.840.1.187605.3.579. 2.1259 1944 Unknown [id number] 2.16.840.1.481427.3.579. 2.1259 1944 Unknown [id number] 2.16.840.1.014157.3.579. 2.196 1944 Unknown [id number] 2.16.840.1.337924.3.579. 2.196 1944 Unknown [id number] 2.16.840.1.483017.3.579. 2.196 1944 Unknown [id number] 2.16.840.1.334164.3.579. 2.196 1944 Unknown [id number] 2.16.840.1.061803.3.579. 2.196 1944 Unknown [id number] 2.16.840.1.525241.3.579. 2.196 1944 Unknown [id number] 2.16.840.1.204236.3.579. 2.196 1944 Unknown [id number] 2.16.840.1.944003.3.579. 2.196 1944 Unknown [id number] 2.16.840.1.287126.3.579. 2.196 1944 Unknown [id number] 2.16.840.1.966549.3.579. 2.196 Social History Date Type Detail Facility Start: 09-17-2022 Tobacco smoking stat [facility] Never smoked tobacco [facility] Start: 09-17-2022 Tobacco use and exposure Smoke less tobacco non-user [facility] Start: 04-18-2023 End: 09-19-2023 Alcohol intake Current drinker of alcohol (finding) [facility] Start: 04-18-2023 End: 06-17-2023 Alcohol intake [facility] Start: 04-18-2023 End: 06-17-2023 Tobacco use panel [facility] Start: 01-06-2023 Alcohol Comment Caffeine [...] Healthcare Clinical Notes 02-01-2020 to 01-24-2024 Roger Vasquez, CONSTANZA - 01/24/2024 1:00 PM ESTPatient InstructionsTelephone Encounter [...] once daily, Disp: 90 tablet, Rfl: 0 aysogzaxjq-ahhfbcgiybopf-doamnirr 50-325-40 MG tablet, Take 1 tablet by [...] Surgical History: Procedure Laterality Date BREAST SURGERY 2013 Mammogram CARPAL TUNNEL RELEASE DEXA 2013 EGD 02/01/2020 w/ biopsy- [facility] KNEE ARTHROPLASTY Left 06/22/2017 Dr. Ramos KNEE ARTHROPLASTY Right 07/26/2018 Dr. Ramos NECK SURGERY 2013 REVERSE TOTAL SHOULDER ARTHROPLASTY Left 07/26/2022 Dr Ramos ROTATOR CUFF REPAIR Left 2012 Dr. Ramos TOTAL SHOULDER ARTHROPLASTY Left 07/26/2022 [...] Roger Vasquez DPM documented in this encounter [facility] 01-24-2024 Instructions Roger Vasquez DPM - 01/24/2024 1:00 PM EST As noted documented in this encounter [facility] 12-22-2023 Telephone encounter Note Approvals with refills [facility] 12-22-2023 Miscellaneous Notes Approvals with refills documented in this encounter [facility] 12-13-2023 Telephone encounter Note Patient called and would like an order for a mammogram sent over. Last one on 12/20/2022. Thank you [facility] 12-13-2023 Miscellaneous Notes Patient called and would like an order for a mammogram sent over. Last one on 12/20/2022. Thank you documented in this encounter [facility] 11-17-2023 Telephone encounter Note Refills sent. [facility] 11-17-2023 Miscellaneous Notes Refills sent. documented in this encounter [facility] 04-27-2023 Telephone encounter Note Called pt and informed [facility] 04-27-2023 Miscellaneous Notes Called pt and informed Pt called stated she had LT TSA 07/26/22 and is getting a cavity filled and needs antibiotic called into [facility] in [place]. Allergies: NKDA . Her call back [phone] documented in this encounter [facility] 04-27-2023 Telephone encounter Note Pt called stated she had LT TSA 07/26/22 and is getting a cavity filled and needs antibiotic called into [facility] in [place]. Allergies: NKDA . Her call back [phone] [facility] 04-21-2023 Telephone encounter Note Refills sent. [facility] 04-21-2023 Miscellaneous Notes Refills sent. documented in this encounter [facility] 07-27-2022 Note [id number] [facility] 07-26-2022 Note [facility] SURGERY Clinical Discharge Summary PERSON INFORMATION Name RADHA CUADRA Age 77 Years 1945 Sex FEMALE Language Syrian PCP SHARI MCKEON Marital Status Med Service Ambulatory Surgery Acct# Arrival 07/26/2022 05:52:10 Visit Reason SURGERY - LEFT REVERSE TOTAL SHOULDER - ARTHREX Acuity LOS 05 02:57 Address: [address] [place] [address] [place] [address] Comment: PROVIDER INFORMATION VITALS INFORMATION Vital Sign [...] position. She was sedated by the nurse indigo vat tender cloth. Bite block was placed in her mouth. [...] patient tolerated the procedure without any difficulties. [facility] SIGNED AND APPROVED BY: DR CARLOS EDUARDO MENENDEZ . 02/07/2020 09:15:00 [facility] Evaluation note Diagnosis Essential hypertension (CMS/HCC) [...] maintaining sleep [facility] Diagnosis Dermatophytosis of nail- Primary Dystrophic nail Other specified disease of nail Onychocryptosis Ingrowing nail Pain of left great toe [facility] Diagnosis Mild intermittent asthma, unspecified whether complicated (CMS/HCC) [facility] Diagnosis Essential hypertension (CMS/HCC) Unspecified essential hypertension [facility] Diagnosis Mild intermittent asthma, unspecified whether complicated (CMS/HCC) documented in this encounter [facility] Summary [...] section and content) DATE CREATED AUTHOR 05/27/2018 [facility] DATE CREATED AUTHOR AUTHOR'S ORGANIZ ATION 11/06/2020 [facility] DATE CREATED AUTHOR AUTHOR'S ORGANIZ ATION 05/12/2022 [facility] dical Specialist DATE CREATED AUTHOR AUTHOR'S ORGANIZ ATION 07/28/2022 [facility] DATE CREATED AUTHOR AUTHOR'S ORGANIZ ATION 10/06/2023 [facility] DATE CREATED AUTHOR AUTHOR'S ORGANIZ ATION 01/26/2024 [facility] dical Specialists [facility] DATE CREATED AUTHOR AUTHOR'S ORGANIZ ATION 03/05/2024 [facility] Reason for Visit (unrecogniz ed [...] Care Teams (unrecognized sec tion and content) 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 Relationship Specialty Start Date End Date Alexander Aparicio NP [address] [place] [address] PCP - Cristobal FIGUEROA 03/21/21 Shari Mckeon MD [address] [place] [address] PCP - General Family Medicine 07/26/22 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 Relationship Specialty Start Date End Date Alexander Aparicio NP [address] [place] [address] PCP - Cristobal FIGUEROA 03/21/21 Shari Mckeon MD [address] [place] [address] PCP - General Family Medicine 07/26/22 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 Relationship Specialty Start Date End Date Alexander Aparicio NP [address] [place] [address] PCP - Cristobal FIGUEROA 03/21/21 Shari Mckeon MD [address] [place] [address] PCP - General Family Medicine 07/26/22 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 Relationship Specialty Start Date End Date Alexander Aparicio NP [address] [place] [address] PCP - Cristobal FIGUEROA 03/21/21 Shari Mckeon MD [address] [place] [address] PCP - General Family Medicine 07/26/22 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 Relationship Specialty Start Date End Date Alexander Aparicio NP [address] [place] [address] PCP - Cristobal FIGUEROA 03/21/21 Shari Mckeon MD [address] [place] [address] PCP - General Family Medicine 07/26/22 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 Relationship Specialty Start Date End Date Alexander Aparicio NP [address] [place] [address] PCP - Cristobal FIGUEROA 03/21/21 Shari Mckeon MD [address] [place] [address] PCP - General Family Medicine 07/26/22 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 Relationship Specialty Start Date End Date Alexander Aparicio NP [address] [place] [address] PCP - Cristobal FIGUEROA 03/21/21 Shari Mckeon MD [address] [place] [address] PCP - General Family Medicine 07/26/22 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 [employer] [facility]. provides no warranty or guarantee of the accuracy or completeness of information in this document.
== END 2024-03-28 08:30 | disposition home or self-care (01) ==
LOC: PM 08:30
PROVIDERS: PCP Family Medicine; Visit Provider Nurse Practitioner
DX: M54.6 Pain in thoracic spine (principal); M47.814 Spondylosis without myelopathy or radiculopathy, thoracic region; M47.816 Spondylosis without myelopathy or radiculopathy, lumbar region; Z79.891 Long term (current) use of opiate analgesic; M19.90 Unspecified osteoarthritis, unspecified site
CPT/HCPCS: G0463

== ENCOUNTER 2024-05-23 08:29 | Outpatient (OUT) | payer MEDICARE, SELFPAY ==
--- NOTE | 2024-05-23 08:45 | P.CN_ITS ---
Consult Note: HPI Data of Consult Patient: known to practice within the last 3 years Requesting Physician: Concha Lopez NP Primary Care Provider: KELLY MCKEON Consult Narrative Reason for consult: f/u Narrative: 79yof who presents for assessment. notes low back pain that is higher than where her previous ablation was. notes significant relief >80% with rfa at bilateral l4-5, l5-s1. now points to pain slightly higher. imaging reviewed, which shows multilevel facet arthropathy in thoracic and lumbar spine. has continued to engage in a series of provider directed home exercises >6 weeks, without lasting benefit. uses otc pain meds as needed and tylenol #3 BID PRN. denies adverse med side effects. patient recently underwent left and right T10-11 T11-12 RFA with no relief, OD 10%. Pain today 0/10 increasing to 8/10 with baking and activity. cc:: CC: Concha Lopez NP Review of Systems ROS Status of ROS 10 or more systems reviewed and unremark able except as noted in history and below Musculoskeletal Reports: back pain PFSH PFSH Medical History Osteoarthritis ?M19.90 - Unspecified osteoarthritis, unspecified site (ICD-10) Heart murmur ?R01.1 - Cardiac murmur, unspecified (ICD-10) Surgical History History of total shoulder replacement ?Z96.619 - Presence of unspecified artificial shoulder joint (ICD-10) History of total knee arthroplasty ?Z96.659 - Presence of unspecified artificial knee joint (ICD-10) History of carpal tunnel release ?Z98.890 - Other specified postprocedural states (ICD-10) Meds Home Medications and Allergies Home Medications ?Medication ?Instructions ?Recorded ?Confirmed ?Type calcium 600 mg (as 1 tab PO BID 07/11/23 02/20/24 History carbonate)-vitamin D3 5 mcg (200 unit) tablet (Calcium 600 + D(3)) losartan 100 mg tablet 100 mg PO DAILY 07/11/23 02/20/24 History multivitamin-ferrous 1 tab PO DAILY 07/11/23 02/20/24 History fumarate-folic acid 18 mg-400 mcg tablet (Centrum Women) trazodone 50 mg tablet 50 mg PO DAILY 07/11/23 02/20/24 History acetaminophen 300 mg-codeine 30 mg 1 tab PO BID PRN pain #60 tabs 01/11/24 02/20/24 Rx tablet albuterol 90 mcg/actuation aerosol mcg inhalation BID 02/01/24 History inhaler acetaminophen 300 mg-codeine 30 mg 1 tab PO BID PRN pain #60 tabs 02/23/24 Rx tablet acetaminophen 300 mg-codeine 30 mg 1 tab PO BID PRN pain #60 tabs 03/28/24 Rx tablet baclofen 10 mg tablet See Rx Instructions .Route 03/28/24 Rx .COMPLEX #60 tabs Allergies Allergy/AdvReac Type Severity Reaction Status Date / Time No Known Drug Allergies Allergy Verified 02/20/24 08:53 Exam Constitutional Documenting provider has reviewed patient's vital signs: yes Common normals: no apparent distress, oriented x3, healthy appearing, alert and well nourished General appearance: cooperative HENMT Common normals: normocephalic, hearing grossly normal bilaterally and moist oral mucous membranes Head and scalp: normocephalic Eye Common normals: PERRL Pupil: PERRL Neck & C-Spine Common normals: full ROM General: normal visual inspection Chest Common normals: inspection of chest normal Respiratory Common normals: normal respiratory effort, no retractions and no use of accessory muscles Back & Pelvis Thoracic spine/upper back: ROM limited, pain with ROM and thoracic spinal tenderness; no paraspinal muscle spasm Other: negative facet loading no tenderness over T10-L2 facets no radiculopathy on exam strength 5/5 in BLE Neuro Common normals: oriented x3, CN's II-XII intact bilaterally, moves all extremities, no focal motor deficits, no sensory deficits noted and deep tendon reflexes 2+ bilaterally Sensorium/orientation: alert Motor exam: strength 5/5 throughout and no movement abnormalities noted Psych Common normals: mental status grossly normal, thought process normal, cooperative, affect normal, speech normal and activity/motor behavior normal Speech: normal speech Thought process: normal thought process Results Additional Findings Additional findings: If on a controlled substance or opioids, I have checked an [place]ARRS report on this patient and there are no aberrancies noted in the prescribing history.??If on a controlled substance or opioid a drug screen was completed and reviewed within the last year, and if there has not been a drug screen completed we ordered one today to monitor higher risk, state monitored pain medication use. As part of providing excellent, safe, comprehensive care, the following was completed at our patient's visit: 1. A medication reconciliation and review to ensure accurate knowledge of current/active medications, including asking our patients to inform us about any epkp-ayg-piscxzz medications or herbal remedies/nutritional supplements/alternative remedies. 2. A review to specifically ensure our patients have had annual screening for screening for depression, screening for tobacco use, and screening for unhealthy alcohol use. For concerning screenings had a discussion with the patient, provided patient education, and recommended follow-up with primary care provider when appropriate. If patient noted with a risk of falling, they received education on strength, gait, and balance training to prevent future risk of falling. Assessment and Plan Assessment and Plan (1) Vertebrogenic pain: (2) Thoracic spondylosis: (3) Thoracic back pain: (4) Lumbar spondylosis: (5) Chronic use of opiate drug for therapeutic purpose: Assessment and Plan: I feel these medications are improving the patient's quality of life and allow them to tolerate activities of daily living as well as participate in recreational activity.? The patient does not report intolerable side effects. The patient is NOT opioid naive and non-pharmacologic and non-opioid treatment has failed to significantly relieve the patient's pain and improve functionality. The patient has a diagnosis that is related to a somatic or visceral pain etiology. ? ?? I reviewed with the patient the potential risks and side effects with the use of? opioid medications including but not limited to respiratory depression,? sedation, and even . I verified the patient has access to naloxone should? these effects occur. I advised the patient to avoid the use of any other? sedation substances including alcohol, THC, and benzodiazepines while? taking opioid medications due to the risk of compounding side effects and? detrimental outcomes. I reviewed the [employer], pain treatment agreement, urine? drug screen, and opioid start talking forms. The patient was advised to let? their family know they had Naloxone in case they would need to administer? the medication.? ?? A drug screen was completed within the last year, and no aberrancies were noted regarding their use of controlled substances. The patient understands they are subject to the terms and conditions of the pain contract that they have signed. ? ?? I have checked an OARRS report on this patient today and there are no aberrancies noted in the prescribing history.? (6) Osteoarthritis: Plan update thoracic MRI without contrast, assess for modic changes. chronic middle back pain unresponsive to >6 weeks of PT and provider guided HEP, heat, ice, tylenol, NSAIDs. encouraged to trial baclofen 5-10mg BID PRN pain/spasms continue tylenol #3 BID PRN moderate to severe pain f/u to review thoracic MRI. consider intracept vs SCS
--- OUTSIDE RECORDS SUMMARY | 2024-05-23 08:52 | XMS_ITS | CCD ---
Author Organization [facility] Care Team Providers Care Chaplain Name Role Phone PHYSICIAN, DEFAULT Admitting Unavailable [...] Primary Care Unavailable SHARI MCKEON Consulting Unavailable Ede Ramos Admitting Unavail able Ede Ramos Attending Unavail able SHARI MCKEON Primary Care Unavailable Ede Ramos Admitting Unavail able Ede Ramos Attending Unavail able Albina DATA WAREHOUSE ADMINISTRATOR, Alexander Plascencia Unavailable Shari Mckeon MD Primary Care Provider ALEXANDER APARICIO Referring Unavailab le SHARI MCKEON Primary Care Unavailable Giedraitis , Andnaina Brian Attending Unavailable Giedraitis , Andrius Brian Attending Unavailable Giedraitis , Andrius Brian Attending Unavailable Giedraitis , Andrius Brian Attending Unavailable Giedraitis , Andrius Brian Attending Unavailable Giedraitis , Andrius Brian Attending Unavailable Giedraitis , Andrius Brian Attending Unavailable Giedraitis , Andrius Brian Attending Unavailable Giedraitis , Andrius Brian Attending Unavailable Giedraitis , Andrius Brian Attending Unavailable CHINA ORTIZ Attending Unavailable ALBINA, ALEXANDER Plascencia Attending Unavail darinel APARICIO, ALEXANDER Plascencia Attending [facility] darinel APARICIO, ALEXANDER Plascencia Referring SHARI Richmond Referring ROGER Mcintyre Attending Unavailable Allergies Allergy Classification Reported Allergen(s) Allergy Type Date of Onset Reaction(s) Facility (2 sources) Alendronate; Translations: [Fosamax] Drug Allergy [facility] Repository (16 sources) Alendronate Drug Allergy 09-10-2020 Unknown [facility] Medications Current Medications Medication Drug Class(es) Dates Sig (Normalized) Sig (Original) acetaminophen 325 mg / butalbital 50 mg / caffeine 40 mg oral tablet (16 sources) Barbiturate, Central Nervous System Stimulant, Methylxanthine take 1 tablet by mouth every four hours as needed butalbital-acetamin ophen-caffeine 50-325-40 MG tablet Take 1 tablet by mouth every 4 (four) hours if needed (headache). Active acetaminophen 300 mg / codeine phosphate 30 mg oral tablet (2 sources) Opioid Agonist Start: 03-28-2024 take 1 tablet by mouth twice daily as needed acetaminophen-codei ne (Tylenol w/ Codeine #3) 300-30 MG tablet Take 1 tablet by mouth 2 (two) times a day as needed 03/28/2024 Active amoxicillin 500 mg oral tablet (1 source) Penicillin-class Antibacterial Start: 04-27-2023 End: 05-04-2023 take 4 tablets by mouth once amoxicillin (Amoxil) 500 MG tablet Indications: S/P reverse total shoulder arthroplasty, left 4 tabs PO once 30-60 mins before procedure 4 tablet 0 04/27/2023 05/04/2023 Active atorvastatin 20 mg oral tablet (16 sources) HMG-CoA Reductase Inhibitor Start: 09-28-2023 take [...] 04/11/2023 Active azithromycin 250 mg oral tablet (3 sources) Macrolide Antimicrobial Start: 05-09-2024 End: 05-14-2024 take 2 tablets by mouth once daily, then take 1 tablet by mouth once daily azithromycin (Zithromax) 250 MG tablet Indications: Chronic obstructive pulmonary disease with acute exacerbation (CMS/HCC) Take 2 tablets (500 mg) by mouth Daily for 1 day, THEN 1 tablet (250 mg) Daily for 4 days. 6 tablet 05/09/2024 05/14/2024 Active Start: 04-18-2023 End: 04-23-2023 take 2 tablets by mouth once daily, then take 1 tablet by mouth once daily azithromycin (Zithromax) 250 MG tablet Indications: Upper respiratory tract infection, unspecified type Take 2 tablets (500 mg) by mouth Daily for 1 day, THEN 1 tablet (250 mg) Daily for 4 days. 6 tablet 0 04/18/2023 04/23/2023 Active CALCIUM-VITAMIN D PO (16 sources) Start: 06-29-2022 CALCIUM-VITAMI N D PO 2 [...] / salmeterol 0.05 mg/actuat dry powder inhaler (19 sources) Corticosteroid, beta2-Adrenergic Agonist Start: 02-07-2024 End: 04-05-2024 take 1 puff(s) by inhalation in the morning Fluticasone-Salme terol 250-50 MCG/ACT aerosol powder Indications: Mild intermittent asthma, unspecified whether complicated (CMS/HCC) Inhale 1 puff in the morning and 1 puff before bedtime. 180 each 1 04/05/2024 Active Start: 12-09-2023 take 1 puff(s) by in halation in the morning Fluticasone-Salmeterol 250-50 MCG/ACT aerosol [...] / losartan potassium 100 mg oral tablet (18 sources) Thiazide Diuretic, Angiotensin 2 Receptor Aguilar Start: 03-19-2024 take 1 tablet by mouth once daily in the morning losartan-hydroCHLOROthiazide (Hyzaar) 100-12.5 MG tablet Indications: Essential hypertension (CMS/HCC) TAKE 1 TABLET BY MOUTH EVERY DAY IN THE MORNING 100 tablet 03/19/2024 Active Start: 11-17-2023 take 1 tablet by abhinav th in the morning losartan-hydroCHLOROthiazide (Hyzaar) 100-12.5 MG [...] 01/18/2023 04/21/2023 Discontinued Multiple Vitamin (multivitamin) capsule (16 sources) take 1 capsule by mouth in the morning Multiple Vitamin (multivitamin) capsule Take 1 capsule by mouth in the morning. Active take 1 capsule by mouth in the m orning Multiple Vitamin (multivitamin) capsule Take 1 capsule by mouth in the morning. 0 Active ondansetron 4 mg oral tablet (2 sources) Serotonin-3 Receptor Antagonist Start: 04-24-2024 take 1 tablet by mouth every twenty-four hours as needed ondansetron (Zofran) 4 MG tablet Take 4 mg by mouth Daily as needed 04/24/2024 Active rimegepant 75 mg disintegrating oral tablet (2 sources) Start: 01-06-2023 take 1 tablet by mouth once daily as needed Rimegepant Sulfate (Nurtec) 75 MG tablet dispersible Indications: Migraine without aura and without status migrainosus, not intractable (CMS/HCC) Take 75 mg by mouth Daily as needed (as needed for migraines). 10 tablet 0 01/06/2023 Active traZODone hydrochloride 50 mg oral tablet (17 sources) Serotonin Reuptake Inhibitor Start: 09-26-2023 End: 12-22-2023 take 1 tablet by mouth at bedtime traZODone (Desyrel) 50 MG tablet Indications: Primary insomnia Take 1 tablet (50 mg) by mouth at bedtime 90 tablet 11 12/22/2023 Active Start: 04-08-2023 take 1 tablet by abhinav at bedtime traZODone (Desyrel) 50 MG tablet Indications: Primary insomnia Take 1 tablet (50 mg) by mouth at bedtime 90 tablet 1 04/08/2023 Active turmeric extract 500 mg oral capsule (16 sources) End: 05-09-2024 Turmeric 500 MG tablet Orall y 05/09/2024 Discontinued Turmeric 500 MG tablet Orally Active Turmeric 500 MG tablet Orally 0 Active Problems Active Problems Problem Classification Problem Date Documented Date Episodic/Chronic Asthma (20 sources) Mild intermittent asthma; Translations: [Mild intermittent asthma with status asthmaticus] Onset: 06-12-2017 Resolved: 06-17-2023 07-15-2022 Chronic Chronic kidney disease (16 sources) Chronic kidney disease stage 3B ; Translations: [Stage 3b chronic kidney disease (HCC)] Onset: 07-15-2022 07-15-2022 Chronic Chronic obstructive pulmonary disease and bronchiectasis (19 sources) Chronic obstructive pulmonary disease, unspecified; Translations: [...] 06-17-2023 07-15-2022 Chronic Other connective tissue disease (16 sources) Artificial knee joint present; Translations: [Presence [...] Onset: 09-30-2020 Episodic Other nervous system disorders (16 sources) Difficulty walking; Translations: [Difficulty in walking, not elsewhere classified] Onset: 07-15-2022 07-15-2022 Chronic Other nervous system disorders (16 sources) Chronic pain; Translations: [Other chronic pain] [...] [Ingrowing nail] 01-24-2024 Episodic Residual codes; unclassified (16 sources) Insomnia; Translations: [Other insomnia] Onset: 07-15-2022 07-15-2022 Chronic Past or Other Problems Problem Classification Problem Date Documented Da te Episodic/Chronic Fever of unknown origin (4 sources) Fever, unspecified; Translations: [FEVER UNSPECIFIED] Onset: 01-02-2020 Episodic Fluid and electrolyte disorders (1 source) Dehydration; Translations: [DEHYDRATION] Onset: 01-04-2020 Episodic Gastritis and duodenitis (17 sources) Gastritis, unspecified, without bleeding; Translations: [Bile-induced gastritis] Onset: 02-14-2020 Resolved: 06-17-2023 07-15-2022 Episodic Heart valve disorders (20 sources) Systolic murmur; Translations: [Cardiac murmur, unspecified] Onset: 07-15-2022 Resolved: 06-17-2023 07-15-2022 Episodic Immunizations and screening for infectious disease (1 source) Contact with and (suspected) exposure to other viral communicable diseases; Translations: [CONTCT EXPS OTH VIRL COMMUNICABL DZ] Onset: 01-30-2020 Episodic Mood disorders (14 sources) Mood disorders Onset: 06-17-2023 06-17-2023 Other aftercare (1 source) Other director long term care (current) drug therapy; Translations: [OTH SALON LEADER CURRENT DRUG THERAPY] Onset: 02-14-2020 Episodic Other aftercare (1 source) assisted (current) use of aspirin; Translations: [SALON LEADER CURRENT USE OF ASPIRIN] Onset: 01-04-2020 Episodic Other gastrointestinal disorders (4 sources) Dysphagia, unspecified; Translations: [DYSPHAGIA UNSPECIFIED] Onset: 02-01-2020 Episodic Other gastrointestinal disorders (16 sources) Dysphagia; Translations: [Dysphagia, unspecified] Onset: 07-15-2022 Resolved: 06-17-2023 07-15-2022 Episodic Other lower respiratory disease (1 source) Cough; Translations: [COUGH] Onset: 01-04-2020 Episodic Other non-traumatic joint disorders (16 sources) Derangement of left shoulder joint; Translations: [Other specific joint derangements of left shoulder, not elsewhere classified] Onset: 07-15-2022 Resolved: 06-17-2023 07-15-2022 Chronic Residual codes; unclassified (16 sources) Poor sleep pattern; Translations: [Other sleep disorders] Onset: 08-21-2020 Resolved: 06-17-2023 08-03-2022 Chronic Residual codes; unclassified (16 sources) Postmenopausal state; Translations: [Asymptomatic menopausal state] [...] Zaidi M.D. 2023-09-19 17:42:04 Normal Not Available Consent Formson 07-27-2022 Consent Forms [id number]#1.00OTGTIFF [facility] Discharge Instructionson Discharge Instructions [id number]#1.00OTGTIFF [facility] MAGR Intraoperative Recordon 07-27-2022 MAGR Intraoperative Record MAGR Intra-Op Record Summary Primary Physician: Ede Ramos DO Finalized Date/Time: 07/27/22 09:45:04 Pt. Name: RADHA CUADRA /Sex: 1945 FEMALE Med Rec #: [id number] Physician: Ede Ramos DO Financial #: [id number] Pt. Type: D Room/Bed: / Admit/Disch: 07/26/22 [...] 1 Entry 2 Entry 3 Case Attendee Ede Ramos William MD Derry RN, Jania Calderon DO Role Performed Surgeon - Primary Anesthesiologist of Food Scientist Record Time In 07/26/22 07:39:00 07/26/22 07:39:00 07/26/22 07:39:00 Time Out 07/26/22 09:49:00 07/26/22 09:49:00 07/26/22 09:49:00 Procedure Arthroplasty Shoulder Arthroplasty Shoulder Arthroplasty Shoulder Total Reverse(Left) Total Reverse(Left) Total Reverse(Left) Last Modified By: Mode GOLDMAN, Jania Coello RN, Jania Coello RN, Jania Plascencia 07/26/22 09:49:54 07/26/22 09:49:54 07/26/22 09:49:54 Entry 4 Entry 5 Entry 6 Case Attendee Fahad TEST ENGINEERING MANAGERPaulina CST, Kelly CST McMurray CST/CSFAZOE CST Role Performed Scrub Personnel Scrub Personnel Medical Delivery Technician Time In 07/26/22 07:39:00 07/26/22 07:39:00 07/26/22 07:39:00 Time Out 07/26/22 09:49:00 07/26/22 09:49:00 07/26/22 09:49:00 Procedure Arthroplasty Shoulder Arthroplasty Shoulder Arthroplasty Shoulder Total Reverse(Left) Total Reverse(Left) Total Reverse(Left) Last Modified By: Mode GOLDMAN, Jania Coello RN, Jania Conde RN 07/26/22 09:49:54 07/26/22 09:49:54 07/26/22 09:49:54 General Comments: Nicholas Milton - Arthrex rep Surgical Procedures MAGR Pre-Care Text: A.20 Verifies operative procedure, surgical site, and laterality Im.150 Develops individualized plan of care Entry 1 Procedure Arthroplasty Shoulder Primary Procedure Yes Total Reverse Primary Surgeon Ede Ramos DO Surgeon Comment LEFT REVERSE TOTAL [...] to chemical sources (more content not included)... [facility] Outside Recordson 07-27-2022 Outside Records [id number][facility] Provider Orderson 07-27-2022 Provider Orders [id number]#1.[facility] Telemetry Stripson Telemetry Strips [id number][facility]-26-2022 Anesthesia Note [...] 07/26/2022 11:51 EDT] Remy Da Silva MD [facility] Anesthesia Note Patient: RADHA CUADRA Age: [...] obstructive pulmonary disease (COPD) / SNOMED CT 40099058 / Confirmed Heart murmur / SNOMED CT 556503397 / Confirmed Hyperlipidemia / SNOMED CT 78057616 / Confirmed HTN (hypertension) / SNOMED CT 2548304304 / Confirmed Histories Family History: COPD Mother Father Procedure history: Arthroplasty of left knee (1591381790). Arthroplasty of right knee (9471946525). Carpal tunnel release (729083770). Comments: 06/29/2022 13:15 EDT - Dorota Myers RN bilat Colonoscopy (205674602). EGD - Esophagogastroduodenoscopy (8953234739). Disorder of rotator cuff (1628404431). Comments: 06/29/2022 13:14 RYANT - Dorota Myers [...] Oriented. Review / Management Laboratory Results Plan [place] [employer]hesiologists#(ASA) physical status classification: Class [...] 08:23 EDT] Remy Da Silva MD Normal [facility] Inpatient Patient Summaryon 07-26-2022 [place] [address] Patient Discharge Instructions Name: CLAUDIALIV MELENDREZJANELLE DAVISONILY : 1945 Patient Address: [address] [place] [address] [place] [address] Primary Care Provider: Name: SHARI MCKEON After you are discharged if you find you have any questions, please, call [phone] ext [phone] to speak to a nurse. Discharge Diagnosis: [...] alcohol and/or drug addiction problems; contact the [facility] 04/10 Crisis Hotline -Text 4HEQS ao 702695. If you received any narcotics, sedation, or [...] business decisions or sign any legal documents [facility] would like to thank you for allowing us to assist you with your healthcare needs. The following includes patient education materials and information regarding your injury/illness. RADHA CUADRA has been given the following list of follow-up instructions, prescriptions, and patient education materials: Follow-up Instructions With: Address: When: Ede Ramos [address] [place] [address], [address] [place] [id number] [facility] (1) 08/03/2022 11:00 AM Medications During the [...] fingers frequently (more content not included)... Normal [facility] MAGR Intraoperative Recordon 07-26-2022 MAGR Intraoperative Record MAGR Intra-Op Record Summary Primary Physician: Finalized Date/Time: 07/26/22 07:42:32 Pt. Name: RADHA CUADRA BRAD Dangelo/Sex: 1945 FEMALE Med Rec #: [id number] Physician: Ede Ramos DO Financial #: [id number] Pt. Type: D Room/Bed: / Admit/Disch: 07/26/22 [...] Dorota Myers RN Role Performed Anesthesiologist of Food Scientist Food Scientist Record Time In 07/26/22 07:13:00 07/26/22 07:13:00 07/26/22 07:13:00 Time Out 07/26/22 07:38:00 07/26/22 07:38:00 07/26/22 07:38:00 Procedure Interscalene Block(Left) Interscalene Block(Left) Interscalene Block(Left) Last Modified By: Kimberley Le RN, Margaret RN Klaehn, Margaret RN 07/26/22 07:39:31 07/26/22 07:39:31 07/26/22 07:39:31 Entry 4 Case Attendee Amy Bates RN Role Performed Food Scientist Time In 07/26/22 07:13:00 Time Out 07/26/22 [...] Stretcher Post-op Destinat (more content not included)... [facility] MAGR PACU Recordon MAGR PACU Record MAGR PACU Record [facility] Primary Physician: Ede Ramos DO Finalized Date/Time: 07/26/22 10:38:28 Pt. Name: RADHA CUADRA/Sex: 1945 FEMALE Med Rec #: [id number] Physician: Ede Ramos DO Financial #: [id number] Pt. Type: D Room/Bed: / Admit/Disch: 07/26/22 05:52:10 - Institution: PACU Case Times MAGR Entry 1 In PACU I 07/26/22 09:51:00 Discharge from PACU 07/26/22 10:35:00 I Last Modified By: Warner Bolton RN 07/26/22 10:38:23 Finalized By: Warner Bolton RN Document Signatures Signed By: Warner Bolotn RN 07/26/22 10:38 [facility] MAGR Postoperative Recordon 07-26-2022 MAGR Postoperative Record MAGR Phase II Record Summary Primary Physician: Ede Ramos DO Finalized Date/Time: 07/26/22 12:01:17 Pt. Name: CHRISTI RADHA Dangelo/Sex: 1945 FEMALE Med Rec #: [id number] Physician: Ede Ramos DO Financial #: [id number] Pt. Type: D Room/Bed: / Admit/Disch: 07/26/22 [...] Signed By: Annamarie Samuels RN 07/26/22 12:01 [facility] MAGR Preoperative Recordon 0 07-26-2022 MAGR Preoperative Record MAGR Pre-Op Record Summary Primary Physician: Ede Ramos DO Finalized Date/Time: 07/26/22 07:44:03 Pt. Name: RADHA CUADRA /Sex: 1945 FEMALE Med Rec #: [id number] Physician: Ede Ramos DO Financial #: [id number] Pt. Type: D Room/Bed: / Admit/Disch: 07/26/22 [...] Signed By: Kimberley Le RN 07/26/22 07:44 [facility] Operative Report - Surgeon/P pablo 07-26-2022 [...] Estimated blood loss: 50 Complications: None Findings: Zpdb-ld-wkob in the glenohumeral joint Procedure summary: Patient [...] applied. [Electronically Signed on: 07/26/2022 09:35 EDT] Ede Ramos DO [Verified on: 07/26/2022 09:35 EDT] Ede Ramos DO [facility] Patient Handouton 07-26-[address] [...] or concerns, please call the office at [phone] 7. Follow up as scheduled [facility] XR Shoulder 1 View Lefton XR [...] MD 07/27/22 4:01 pm Technologist: JORDON RUVALCABA [facility] Comment on above: Order Comment: chey lt status post shoulder replacement Progress Note - Nurseon 07-12 Progress Note - Nurse Pre-op call made to pt. Pt states understanding of arrival time of 0600 on 07/26/22 and NPO after MN. [Electronically Signed on: 07/23/2022 09:27 EDT] Shantel Gonsalez RN [Verified on: 07/23/2022 09:27 EDT] Shantel Gonsalez RN [facility] Coding Summaryon 07-02-2022 Coding Summary HTMLBase 64 CpgvrvnwNJu7bFh+PGhlYWQ+PE1F LXRmZ95giRUfjU9PU3pNMU6LLSBL EJNRLC9DTI6uvFK1YTwqS0LjxoLa TnptfFKnVU73MMz6TGF0tTarROeh sU6slFDyR8t1JmWdOH97pV83CLeq SZYhNfM4XxPlzihgmJUo Z0shGkWttVLzIul+PHRhYmxlIHdp QKZiAJxuVILgEnGovBnkXY1hLl6p ZGVyLWNvbGxhcHNlOiBj l9kfRBQkDQwrVA5myWolG2MwbVJ7 IATmk7c8Qc96hLF+TAVpGUJ3iRxo WUbpr243CqIbh1btYZC1 dSFxEQvjXSC1S80bu4A1RHBkTRNc JJV5bCS1kE9cvBcajqddO5QvqAVo BeB0EGZ3uFVjhV2mqDkc qoxhnI1iTwy+S96WQG0KKKWXCL4P Hhi3F2BzPalgiZE+AO25NFYwVI02 gLCyoFYxx1xuxVz3KdSz VSIiJCK3aIphFHuqy1TiNDNkJ80r uHOzi0H7ZDWxlZyauQCzHkDhhMX5 nY5qVVxebippj6eklvxy Ddzmm1itih34qZ36K02lYZwyHLWx PVQ3AUKcCKEkdRfsah5siB5eIg9+ HLzfv3wun0osjAr1DoXj AXKfbdRyfWzvHTY9j2ZqQz47V9Pr jNtok4MrXvw6dj82zRXrq1C7nEC7 URqyXZHkdO0wVKbjEmK2 HGBwIsKnxU98wVJaFXidQx0twWyp oDpuYA7tUDVsicxbKQQmuC9sBDDu vGXooBeiYS2wUFHuiaxz e700SyPlKGZ2SEMemLIeI6PqhO1p IrPeYUTyYWDdX6DjgMPgTVcfF813 IGpbFpX7GXEktfCvE0Ak LNTnyIhxKlS2f6V7Zd7We2Wfvrjo FHV0QSzsCSS7IiSbWlDgUiK8P8Fm Nob9TDNcmIfsKZ7nT7Mk VQBwlaaivtlvhCM1FNJbWPZywW25 gHXjLOdwMk7fh3Z7p163HVWpFEPh dA97Mx0bwBuzPKMxmDHE bP5bqyvgy9gayjdiTfSrSRLeREi1 GTv9EYLnmQrkQyToCXP0PiF4OES3 lQDbsR1tkNyhdhezoP4u Oyc+H96bhS0iTFL1OWI2wsfaHTZj mrQrVD91JD31F7PuCnmttHSphML+ BHUpdpEfoVdsFU7hTcVm p5tgw4ChOFaiJ8VpZYHeQVxmUev3 NPJmWFZ3cIZ6tT1lSGQrUIfar5O6 oKD0E8XxwyEbub9bt8in SBBjSSxmD59nnBFrh4C7CONwaMY4 OCLobKmbYvWdmZ00Ulp+PGNvbGdy g3ZuDanxn6fos8oxhTk8 KiDkZTRgopCgpHpgVGC9m6RiCj50 S06wGGvgTAAkRQOgZWQlYXEdeZfw um6meE4xMt1+PGNvbCB3 dGK9aK0pIXNlKnF8HRoaV371WmYr eEFwBhvfi5bqu0cyiEw7QpVdIMKb exTxsWyiFPB2l8TeBv71 H46xNGqiKRDpHEOvCYYiVGVwvIsp dv5uyU7iCi9+XL0vx3ydtt11jN40 dHI+BKWuZJH8kWtqPEnm HLIeaX4zNSvyEwC2JZWoTtAmdQ68 yMWyQEcfMp6jyZvafOaoUD8hUERx mnncf902ZrPqb4fjHKHa kKLuSOkrOVR6K90ow8H8ZDSjTXSj USJ9iHJ3gZ4eyDtnuwgvkEImwAqy gzSrcNgmQOtrPZifU863 IHRvcDsnPlBhdGllbnQgTmFtZTo8 G9WdRli1WMRulTskZC9wbAOeJNhz Tv6ehTziwHhhSR4iKVBe yyrsy452IuIrn0liLUWdaSRgPYig BTE7J45yw6O8ZNZeCFGnFPZ3oXB0 xY0cyHmgpvybiZQcpYrz pbYsyWfiMKmjNHlnE510VTIuzVtm WeJymfVvFYOnsSI6UY64DQ15eKRn a5M9sNY0Q5BxRRNumjft xlspgST4PRYxFDSnqI73Mj5wyPkg Qm7lRCZyLCX3ZPFlvMHnK3RhcO9a ViErYMIoUFEzN8SvhLNs YEgcA648ZYcwAlB4UOOxnmZmN2Pb TLLdyYqpVlM7f1O1Tz7UL3K6CQ65 FP16fGRlt1N2iMN0I1Mf DPWndaaxtcwmdVB0APZiOKLneF05 Ov0uuBmqXh4xBOAiYOR5BXPoiGOc Y2DldC5wExZjRQDkHLBg X2HviDZgPIbhG112VIvwTlE2JMUz mwOzQ0XlACAikCrpEdT9z0T1Lh4C OWl9CJ87NJ83nRUoy2I2 cAB3P8HsWHNrsshwoocueOH1KVHt OFKejI23Qs4edXxnZg8qNBQvZSA9 RHZsgJJdB6AqeO2zLvZi BSKaCCHsA4ZclQMcZWfbM925ONar JsQ0IVWxwaBfN3PxDPQudMyoBiN4 w4G5Uk8CHUAcTF93GLD7 dAT4WW77AF04V0PqPrcpeEAzlEJ+ PHRhYmxlIHdpZHRoPScxMDAlJyBz wTvpQC8kFy7xGPLfVAYv cMqeaSBnTzMno0oqOSFcFKadEF4j cIdlT2DqnFL0ZZLki0t4Ff50U58x S3FkyBY+KHAhcLU4uVE2 bD6dTxKjJlW0GYgdX055ApObsQTh Ddmcv5awn6yhpKm9MtJ3IKYjepQv jVxeTON0s1ZzKb39X06r VFryGRExWIRoMMHnHLEkxEjjmc3x fM2eTg8+GCItvBI4vPV6bJ8dJoTh MoP7CNkoD779IyLvhXFh Rvils3yca5jxzOd9LvOeCGDfmgUa lMgdNDZ0v8KeVl17P8RrrJxkj2Qe Axp4nn54yTGsz6L0mYX3 K6WsQFHqtcbmjKMdfDeoAO5hIEQt oikuUZJtwE3zQLQjL4c3WpGoWkQ0 BDjnQ1DkndC2TONsdZZp ULpsMMR1Z79ch4A4SCXmYZPlMQJ7 iPK0gU7coKvxabsjeVBfrBfrzeMa gVqkCNahURbkH796IBYs jStlQJWznO9lNRAykJGjtTdwAB6n CNEfdnlhApmCOJPhNDbLDYazVJ2A MMs7Q8LxQfn6KZRdcNru OH3brNDbFOewHk2qoXzgxPmnNU8o LOHsipiqYMGciU1rXICynPRrmRns EB3cRGXyccfcd367HoPm PLK3QLDekFZbD3VxwK2aKfLwLEKg PVSnE4OgoWSvCVaeJ934ZGttEnY1 DDMuqzGnN7UdWEDgpPwd VyW1r3I5Qg0uHr9cTh1bHSR8WM72 MD49eTWko4U2zSV9X3HfINJnvjvz gujelAK6RGKdWVIemK70 mMScPRlwTq1gh3F9b831FSJcAMHc pA36Oc5xjOziHLZtwETHeC6gqtdp v0sdqyscPfTbVIKcYPj2 PCo4RMOkpJmvTvNoJTZ8NcZ6ICY9 iTWrxS7qaBtsgvfhoJ0fFwr+Nzgg ZUEnhnB3A1ReHyg3SGOt pFfgHH7plRGgSGppMq1wtZwifRen XO6tCUPaxorfLSIdxX8hVBEqfQAh jCftJG4cWUUkfpggr546 RuKdZLY0TGCgjCKwH4HgdA9qStZa GURlKGZcC6TbkJLtDGrjX186NYiy LpQ8XSWqpzJjV9KePTKx wKnmMlW4l4A0Tn3ZMC6YQLP1B5Bm Zbr6LMCmtUfwOJ0eaPJfVDfbMl0w eBdxgOfuVE4mDJYktuoy UMOpdL6lPWTgcKHlsNruRS2nSXSq qwaja548HtUvUNN9UAWzlVPgR4Ne rD4nKmWuGRQsEXYbP2Xn fPTsXEiaQ781QTmvQwF8XNWgdgRi C8UvEUIcbYftPwB9q1W7Yi4XVPeg dGQ+RP89ie50R4KoSsvy Hxt0HMUiPKY5sAC4uO5xSZVkWOyc o6C3nLJ0Q4RmvrHswe4sr2adATYf HAcaO86bkZNnw1Q6QFEd dFG3NNJmuBqlZlFvnQ68Fyl+PGNv xOugw4AoHvizh0qke2pvjQi6JgOj NAXumpSwlHrnKQC0q7Mn To49C18rFQrzCOLgBEKgFEGfCEYz rWixmn4lsV7vDv7+XTCeqNM1fHI7 qP3gRfOrIcK2AIjvB001 AnLjmULxUzygb9vqf9xudQo8BxPm RXXyeiImeXfzAWQ6t9AgQp01U3Cy uBoxk2SmEhm6qg51eOOo k2O0yOY0S3HqDADfppipnEGkqDet VK4qNDDszrcfSPWhwN7dPEEeL6n0 BkAtBoQ1IRdhL5JzqjR2 DLBkdHBiPZIgqBPTcE8tiuduq8dz ughuDjBqTHPiEDi3HSr9MERfnCfz LcZcMGD1MeG4UVB3rCSx mC2ixMwqvexaqE6iQre+IBi9o4rn jNPoPD8tqKH9GP63MJ54tYUlg2O9 uXW4A2VtLRYredgkebfe aSJ8QDUcKNNjjX75Zr9rdAglDr0z YIMyEDR2OPKgySBgD2CkgJ4sIkBe HEXqXSHlA2FlfGAnAGex V218DBivYzW3ZWYpoqWgO4NhPJZh dRplYtC8g6K8Wx8CMU35DZ55HR82 pSMug8Y2vIR6S1MdWPMt hpydydviyCG6DIBeTJAhqN41Yb3r mBjmYj2aGIFbYMH5YEJlvQOiH0Va xW8tXhWiKOTcRBBeY8Vq qWLpCApeH450XTqyUuJ1SGYpphNy Y1BiAQSppNkrJgJ9q7Q7Dj1VDt28 JW70YW22qQYxe4S1bBS1 X3AgDFFduyjrhdrzbXV1RQZqHKQu xQ75Lw6jnYhqDz9xPCCjVUJ2FCSl vJMrY4JfmI3dVzHfXFKf ZMPrU7HzjEKbWGdaX960ZFovXqD1 LJGsndShO7FmXQYkdSuaVaA1y2B8 Xe6WRLhfygo9J9GnFkpm dHI+MF77DLVxZU30cLSzqKBeq8xf iIv4QjAyJHOzBHK9cPlwGFmgb8Ox EEWpZ77hpCSwj4B1IDYe bGx (more content not included)... [facility] C MRSA Screenon 06-30-2022 C MRSA Screen Negative [facility] Comment on above: Performed By: #### [id number] ####[facility] (DEFAULT)[address] [place] [address] Progress Note - Nurseon 04- Progress Note - Nurse Dr. Castro reviewed PAT notes for upcoming surgery 07/26/2022. No new orders at this time [Electronically Signed on: 06/30/2022 11:45 EDT] Annamarie Samuels RN [Verified on: 06/30/2022 11:45 EDT] Annamarie Samuels RN [facility] Provider Orderson 06-30-2022 Provider Orders [id number] [facility] .Auto Diff 1on 06-29-2022 Auto [place] % 10 % Normal 1-12 [facility] Comment on above: Performed By: #### [id number] ####[facility] (DEFAULT)[address] [place] [address] Baso Abs# 0.0 x10 Normal 0.0-0.2 [facility] Comment on above: Performed By: #### [id number] ####[facility] (DEFAULT)[address] [place] [address] Basophils/100 WBC (Bld) 0.7 % Normal 0.2-2.0 [facility] Comment on above: Performed By: #### 7 [id number], [id number], [id number] ####[facility] (DEFAULT)[address] [place] [address] Eos Abs# 0.6 x10 High 0.0-0.4 [facility] Comment on above: Performed By: #### 7 [id number], [id number], [id number] ####[facility] (DEFAULT)[address] [place] [address] 49313 Eosinophils/100 WBC (Bld) 8.5 % High 0.9-4.0 [facility] Comment on above: Performed By: #### 7 834795, [id number], [id number] ####[facility] (DEFAULT)[address] [place] [address] 40376 Lymph Abs# 1.6 x10 Normal 1.3-2.9 [facility] Comment on above: Performed By: #### 7 894585, [id number], [id number] ####[facility] (DEFAULT)[address] [place] [address] 07031 Lymphocytes/100 WBC (Bld) 24 % Normal 14-48 [facility] Comment on above: Performed By: #### 7 [id number], [id number], [id number] ####[facility] (DEFAULT)[address] [place] [address] Uvalde Abs# 0.7 x10 Normal 0.0-0.8 [facility] Comment on above: Performed By: #### 7 194252, [id number], [id number] ####[facility] (DEFAULT)[address] [place] [address] Neut Abs# 3.8 x10 Normal 1.5-9.2 [facility] Comment on above: Performed By: #### 7 738038, [id number], [id number] ####[facility] (DEFAULT)[address] [place] [address] 48453 Neutrophils/100 WBC (Bld) 57 % Normal 44-88 [facility] Comment on above: Performed By: #### 7 153564, [id number], [id number] ####[facility] (DEFAULT)[address] [place] [address] BMP Standardon 06-29-2022 eGFR Non AA 33 mL/min/1.73m2 Invalid Interpretation Code [facility] Comment on above: Performed By: #### 7 852903, [id number], [id number] ####[facility] (DEFAULT)[address] [place] [address] eGFR AA 40 mL/min/1.73m2 Invalid Interpretation Code [facility] Comment on above: Performed By: #### 7 554111, [id number], [id number] ####[facility] (DEFAULT)[address] [place] [address] 69562 Anion gap [Moles/Vol] 8.9 mmol/L Normal 5.0-19.0 [facility] Comment on above: Performed By: #### 7 456368, [id number], [id number] ####[facility] (DEFAULT)[address] [place] [address] 16192 Calcium [Mass/Vol] 9.3 mg/dL Normal 8.9-10.3 [facility] Comment on above: Performed By: #### 7 685828, [id number], [id number] ####[facility] (DEFAULT)[address] [place] [address] 89562 Chloride [Moles/Vol] 102 mmol/L Normal 101-111 [facility] Comment on above: Performed By: #### 7 297811, [id number], [id number] ####[facility] (DEFAULT)[address] [place] [address] 20441 CO2 [Moles/Vol] 28 mmol/L Normal 21-32 [facility] Comment on above: Performed By: #### 7 805018, [id number], [id number] ####[facility] (DEFAULT)[address] [place] [address] 13355 Creatinine [Mass/Vol] 1.53 mg/dL High 0.60-1.30 [facility] Comment on above: Performed By: #### 7 950802, 62811515, [id number] ####[facility] (DEFAULT)[address] [place] [address] 25480 Glucose [Mass/Vol] 107.0 mg/dL Normal 74.0-118.[address] [facility] Comment on above: Performed By: #### 7 603939, [id number], [id number] ####[facility] (DEFAULT)[address] [place] [address] 92630 Osmolality 279 mOsm/L Invalid Interpretation Code [facility] Comment on above: Performed By: #### 7 340781, [id number], [id number] ####[facility] (DEFAULT)[address] [place] [address] Potassium [Moles/Vol] 3.9 mmol/L Normal 3.6-5.1 [facility] Comment on above: Performed By: #### 7 472726, [id number], [id number] ####[facility] (DEFAULT)[address] [place] [address] Sodium [Moles/Vol] 135.0 mmol/L Low 136.0-144 . 0 [facility] Comment on above: Performed By: #### 7 104064, [id number], [id number] ####[facility] (DEFAULT)[address] [place] [address] Urea nitrogen [Mass/Vol] 36 mg/dL High 8-26 [facility] Comment on above: Performed By: #### 7 529730, 20859187, [id number] ####[facility] (DEFAULT)[address] [place] [address] Urea nitrogen/Creatinine [Mass ratio] 23.5 mg/mg High 4.6-16.2 [facility] Comment on above: Performed By: #### 7 072314, [id number], [id number] ####[facility] (DEFAULT)[address] [place] [address] CBC w/ Auto Diffon 3 Erythrocyte distribution width (RBC) [Ratio] 12.8 % Normal 11.5-15.0 [facility] Comment on above: Performed By: #### 7 504680, [id number], [id number] ####[facility] (DEFAULT)[address] [place] [address] Hematocrit (Bld) [Volume fraction] 36.4 % Normal 33.7-40.4 [facility] Comment on above: Performed By: #### 7 056746, [id number], [id number] ####[facility] (DEFAULT)[address] [place] [address] Hemoglobin (Bld) [Mass/Vol] 12.2 g/dL Normal 11.3-15.9 [facility] Comment on above: Performed By: #### 7 523485, 61461610, [id number] ####[facility] (DEFAULT)[address] [place] [address] Man Diff? Auto Invalid Interpretation Code [facility] Comment on above: Performed By: #### 7 942006, [id number], [id number] ####[facility] (DEFAULT)[address] [place] [address] MCH (RBC) [Entitic mass] 32 pg Normal 24-34 [facility] Comment on above: Performed By: #### 7 411265, [id number], [id number] ####[facility] (DEFAULT)[address] [place] [address] MCHC (RBC) [Mass/Vol] 33 g/dL Normal 26-37 [facility] Comment on above: Performed By: #### 7 111746, 74011127, [id number] ####[facility] (DEFAULT)[address] [place] [address] MCV (RBC) [Entitic vol] 97 fL Normal 81-100 [facility] Comment on above: Performed By: #### 7 799187, [id number], [id number] ####[facility] (DEFAULT)[address] [place] [address] Platelet 336 x10 Normal 138-427 [facility] Comment on above: Performed By: #### 7 600263, 43250655, [id number] ####[facility] (DEFAULT)[address] [place] [address] Platelet mean volume (Bld) [Entitic vol] 7.2 fL Normal 6.3-10.2 [facility] Comment on above: Performed By: #### 7 293991, [id number], [id number] ####[facility] (DEFAULT)[address] [place] [address] RBC 3.77 x10 Normal 3.70-5.30 [facility] Comment on above: Performed By: #### 7 698844, 56981749, [id number] ####[facility] (DEFAULT)[address] [place] [address] 30088 WBC 6.7 x10 Normal 3.5-10.5 [facility] Comment on above: Performed By: #### 7 062446, 26752289, [id number] ####[facility] (DEFAULT)[address] [place] [address] 25733 UA w Culture if Ind Standard on 06-29-2022 Breakpoint UA Normal [facility] Comment on above: Performed By: #### 1 [id number] #### [facility] (DEFAULT) [address] [place] [address] Color (U) Yellow [facility] Comment on above: Performed By: #### 1 [id number] #### [facility] (DEFAULT) [address] [place] [address] 62398 Culture? Not Indicated Invalid Interpretation Code [facility] Comment on above: Result Comment: Resu lt created by rule GL_MAGR_ADD_UA_CULT1 Performed By: #### 1 [id number] #### [facility] (DEFAULT) [address] [place] [address] Glucose (U) [Mass/Vol] Negative [facility] Comment on above: Performed By: #### 1 [id number] #### [facility] (DEFAULT) [address] [place] [address] 96768 Ketones Ql (U) Negative [facility] Comment on above: Performed By: #### 1 [id number] #### [facility] (DEFAULT) [address] [place] [address] 80735 Micro? Not Indicated Invalid Interpretation Code [facility] Comment on above: Result Comment: Resu lt created by rule GL_MAGR_ADD_UA_MICRO Performed By: #### 1 [id number] #### [facility] (DEFAULT) [address] [place] [address] 91407 UA Bilirubin Negative [facility] Comment on above: Performed By: #### 1 [id number] #### [facility] (DEFAULT) [address] [place] [address] 59253 UA Blood Negative Normal NEGATIVE [facility] Comment on above: Performed By: #### 1 [id number] #### [facility] (DEFAULT) [address] [place] [address] UA Clarity CLEAR Normal CLEAR [facility] Comment on above: Performed By: #### 1 [id number] #### [facility] (DEFAULT) [address] [place] [address] 85901 UA Leuk Est Negative Normal NEGATIVE [facility] Comment on above: Performed By: #### 1 [id number] #### [facility] (DEFAULT) [address] [place] [address] 39090 UA Nitrite Negative Normal NEGATIVE [facility] Comment on above: Performed By: #### 1 [id number] #### [facility] (DEFAULT) [address] [place] [address] 61691 UA pH 6.5 Normal 5-8 [facility] Comment on above: Performed By: #### 1 [id number] #### [facility] (DEFAULT) [address] [place] [address] UA Protein Negative Normal NEGATIVE [facility] Comment on above: Performed By: #### 1 [id number] #### [facility] (DEFAULT) [address] [place] [address] 91312 UA Spec Grav 1.010 Normal 1.001-1.[address] [place] [address] Comment on above: Performed By: #### 1 [id number] #### [facility] (DEFAULT) [address] [place] [address] 19754 UA Urobilinogen 0.2 mg/dL Normal 0.2-1.0 [facility] Comment on above: Performed By: #### 1 [id number] #### [facility] (DEFAULT) [address] [place] [address] 62792 Urine Source Clean Catch Normal [facility] Comment on above: Performed By: #### 1 [id number] #### [facility] (DEFAULT) [address] [place] [address] 39318 MRI Shoulder w/o Lefton 04-15 MRI Shoulder [...] Adarsh Adams on 05/11/2022 1041 Normal [facility] SCREENING MAMMOGRAM W/ARABELLA, BILATERAL*on 11-20-2021 SCREENING [...] VERY IMPORTANT TO YOUR HEALTH. THE CURRENT [employer] GUIDELINES RECOMMENDS ANNUAL MAMMOGRAPHY BEGINNING AT AGE 39 THIS FACILITY USES A REMINDER SYSTEM TO ENSURE ALL PATIENTS RECEIVE REMINDER NOTIFICATIONS AT THE APPROPRIATE TIME BASED ON THE RECOMMENDATIONS OF THIS EXAM. Report reported and signed by Alejandro Forte on 11/20/2021 0949 Normal [facility] Comprehensive Metabolic [facility] 06-10-2021 Albumin [Mass/Vol] 4.2 g/dL Normal 3.6-5.1 Madyson goldman [facility] Comment on above: Performed By: #### C JEWELS, LIPTeresa #### [facility] [address] [place], [place] [id number] Albumin/Globulin [Mass ratio] 1.7 {ratio} Normal 1.0-2.5 [facility] Comment on above: Performed By: #### C JEWELS LIPD #### [facility] [address] [place], [place] [id number] ALP [Catalytic activity/Vol] 82 U/L Normal 35-119 [facility] Comment on above: Performed By: #### C MP, LIPD #### [facility] [address] [place], [place] [id number] ALT [Catalytic activity/Vol] 15 U/L Normal 6-33 [facility] Comment on above: Result Comment: 02/11 Female reference range changed. Performed By: #### C JEWELS LIPD #### [facility] [address] [place], [place] [id number] Anion gap [Moles/Vol] 15 mmol/L Normal 12-20 [facility] Comment on above: Result Comment: Effe ctive 03/19/2019 reference range changed. Performed By: #### C JEWELS LIPD #### [facility] [address] [place], [place] [id number] AST [Catalytic activity/Vol] 21 U/L Normal 9-34 [facility] Comment on above: Performed By: #### C JEWELS LIPD #### [facility] [address] [place], [place] [id number] BUN/CREA 28 Ratio High 6-22 [facility] Comment on above: Performed By: #### C JEWELS LIPD #### [facility] [address] [place], [place] [id number] Calcium [Mass/Vol] 9.3 mg/dL Normal 8.6-10.2 [facility] Comment on above: Performed By: #### C MP LIPD #### [facility] [address] [facility] [place] [id number] Chloride [Moles/Vol] 106 mmol/L Normal 98-107 [facility] Comment on above: Performed By: #### C MP, LIPD #### [facility] [address] [place], [place] [id number] CO2 [Moles/Vol] 24 mmol/L Normal 20-31 [facility] Comment on above: Performed By: #### C JEWELS, LIPD #### [facility] [address] [place], [place] [id number] Creatinine [Mass/Vol] 1.1 mg/dL Normal 0.6-1.4 [facility] Comment on above: Performed By: #### C JEWELS, LIPD #### [facility] [address] [place], [place] [id number] eGFRAA 58 mL/min/1.73m2 Low >60 [facility] Comment on above: Performed By: #### C JEWELS, LIPD #### [facility] [address] [facility] [place] [id number] eGFRNAA 48 mL/min/1.73m2 Low >60 [facility] Comment on above: Performed By: #### C JEWELS, LIPD #### [facility] [address] [place], [place] [id number] Globulin (S) [Mass/Vol] 2.5 g/dL Normal 1.9-3.7 [facility] Comment on above: Performed By: #### C JEWELS, LIPD #### [facility] [address] [place], [place] [id number] Glucose [Mass/Vol] 94 mg/dL Normal 65-99 [facility] Comment on above: Result Comment: For FASTING Glucose --- ADA reference ranges: Normal 65-99 mg/dl Prediabetes 100-125 Diabetes >/= 126 Performed By: #### C JEWELS, LIPD #### [facility] [address] [place], [place] [id number] Potassium [Moles/Vol] 4.4 mmol/L Normal 3.5-5.5 [facility] Comment on above: Performed By: #### C JEWELS, LIPD #### [facility] [address] [facility] [place] [id number] Protein [Mass/Vol] 6.7 g/dL Normal 6.1-8.1 [facility] Comment on above: Performed By: #### C JEWELS, LIPD #### [facility] [address] [facility] [place] [id number] Sodium [Moles/Vol] 141 mmol/L Normal 135-146 [facility] Comment on above: Performed By: #### C MP, LIPD #### [facility] [address] [place], [place] [id number] TBIL <0.3 Normal [facility] Comment on above: Performed By: #### C MP, LIPD #### [facility] [address] [place], [place] [id number] Urea nitrogen [Mass/Vol] 32 mg/dL High 7-25 [facility] Comment on above: Performed By: #### C MP, LIPD #### [facility] [address] [place], [place] [id number] Lipid Panelon 06-10-2021 Cholesterol [Mass/Vol] 237 mg/dL High 125-200 [facility] Comment on above: Result Comment: Low risk < 200mg/dL Borderline risk 201-239 mg/dl High risk > or equal to 240 Performed By: #### C JEWELS, LIPD #### [facility] [address] [place], [place] [id number] Cholesterol in HDL [Mass/Vol] 100 mg/dL Normal >40 [facility] Comment on above: Result Comment: High Cardiovascular Risk HDL <40 mg/dL Low Cardiovascular Risk HDL > or equal to 60 mg/dl Performed By: #### C MP, LIPD #### [facility] [address] [place], [place] [id number] Cholesterol in LDL [Mass/Vol] 124 mg/dL Normal [facility] Comment on above: Result Comment: LDL ATP III CLASSIFICATION LDL less than 100 mg/dl Optimal LDL 100-129 mg/dl Near or above optimal LDL 130-159 Borderline high LDL 160-189 High LDL greater than 189 mg/dl Very High Performed By: #### C MP, LIPD #### [facility] [address] [place], [place] [id number] Cholesterol in VLDL [Mass/Vol] 13 mg/dL Normal [facility] Comment on above: Performed By: #### C MP, LIPD #### [facility] [address] [place], [place] [id number] Cholesterol.total/Ch olesterol in HDL [Mass ratio] 2 {ratio} Normal [facility] Comment on above: Performed By: #### C MP, LIPD #### [facility] [address] [place], [place] [id number] Triglyceride [Mass/Vol] 67 mg/dL Normal 30-150 [facility] Comment on above: Result Comment: TRIG ATPIII CLASSIFICATIONS TRIG less than 150 mg/dl Normal TRIG 150-199 mg/dl Borderline High TRIG 200-500 mg/dl High TRIG greather than 500 mg/dl Very High Performed By: #### C MP, LIPD #### [facility] [address] [place], [place] [id number] ECHOCARDIO M/2D COMPLETEon 0 10-24-2020 ECHOCARDIO M/2D COMPLETE Patient: RADHA CUADRA Exam Date: 10/24/2020 : 1945 Gender:F Ordering : DR SHARI MCKEON M.D. Admission #: [id number] Family : Order #: [id number] CLICK HERE TO VIEW EXAM ECHOCARDIOGRAM REPORT [...] Area(A4C): 13.90 cm2 Left Atrium Systolic Volume(A2C): 08632 mm3 Left Atrium Systolic Volume(A4C): 37260 mm3 Mitral Valve MV E to A Ratio: 1.10 Mitral Valve A-Wave Peak Velocity: 68.60 cm/s Mitral Valve E-Wave Peak Velocity: 74.50 cm/s Deceleration Time: 259 ms Right Ventricle Aorta AO Root Diam: 2.60 cm Aortic Valve Peak Velocity (Antegrade Flow): 161.00 cm/s, 230.00 cm/s AoV Area (Peak Daniel): 1.93 cm2 AoV Area (VTI): 1.90 cm2 Deceleration Flathead: 1880 mm/s2 Pressure Half-Time: 528 ms Peak [...] M.D. on 10/24/2020 at 19:17 Normal [facility] HEMOGLOBINon 09-30-2020 Hemoglobin (Bld) [Mass/Vol] 12.3 g/dL Normal 12.0-16.0 [facility] Comment on above: Performed By: #### H GB #### [facility] [address] [address] Geraldo Gaitan H PYLORI TISSUEon 02-01-2020 H PYL TISSUE, UREASE Negative Normal NEGATIVE [facility] Comment on above: Performed By: #### H GB #### [facility] [address] [id number] Geraldo Gaitan COVID-19 PCRon 01-27-2020 SARS-CoV-2 (COVID-19) RNA VIVIENNE+probe Ql (Unsp spec) Not detected Normal Not Detected [facility] Comment on above: Result Comment: This nucleic acid amplification test was developed and its performance characteristics determined by [employer]. Nucleic acid amplification tests include PCR and [...] Performed By: #### C VDSTAT, CVDPCR #### [facility] [address] [id number] Geraldo Gaitan PRIORITY COVID PROCESSINGon 01-27-2020 Comment Comment Normal [facility] Comment on above: Result Comment: Rece ived Performed By: #### C VDSTAT, CVDPCR #### [facility] [address] [place], [place] [id number] Geraldo Gaitan CULTURE BLOODon 01-08-2020 Microscopic examination [...] F Trimethoprim/Sulfamethoxazol e <=20 S F Normal [facility] Comment on above: Performed By: #### H GB #### [facility] [address] [place] [address] Geraldo Gaitan BLOOD CULTURE ID PANELon A. baumannii Not detected Normal [facility] Comment on above: Performed By: #### B MIRYAM #### [facility] [address] [place] [address] Geraldo Gaitan BCID CONTROLS PASSED Normal [facility] Comment on above: Performed By: #### B MIRYAM #### [facility] [address] [place] [address] Geraldo Gaitan BCIDBTHD BLOOD CULTURE BOTTLE INFORMATION Normal [facility] Comment on above: Performed By: #### B MIRYAM #### [facility] [address] [place] [address] Geraldo Gaitan BCIDHD1 ANTIMICROBIAL RESIST ANCE GENES Normal [facility] Comment on above: Performed By: #### B MIRYAM #### [facility] [address] [place] [address] Geraldo Gaitan BCIDHD2 SEE BELOW [facility] Comment on above: Result Comment: KPC- carbapenem resistance gene, mecA- methecillin resistance gene, van A/B- vancomycin resistance gene Note: Antimicrobial resitance can occur via multiple mechanisms. A Not Detected result for the [employer] antomicrobial resistance gene assays does not indicate antimicrobial susceptibility. Subculturing is required for specis identificationand susceptibility testing of isolates. Performed By: #### B MIRYAM #### [facility] [address] [place] [address] Geraldo Kandy BCIDHD3 Positive Normal [facility] Comment on above: Performed By: #### B MIRYAM #### [facility] [address] [place] [address] Geraldo Kandy BCIDHD3 Negative Normal [facility] Comment on above: Performed By: #### B MIRYAM #### [facility] [address] [place] [address] Geraldo Kandy BCIDHD5 YEAST Normal [facility] Comment on above: Performed By: #### B MIRYAM #### [facility] [address] [place] [address] Geraldo Kandy BCIDHD6 SEE BELOW [facility] Comment on above: Result Comment: Note : All genus and species BCID [employer] results will be verified post subculturing via Maldi-Tof MS testing methodology. Performed By: #### B MIRYAM #### [facility] [address] [place] [address] Geraldo Kandy Bottle Set: Set 2 Normal [facility] Comment on above: Performed By: #### B MIRYAM #### [facility] [address] [place] [address] Geraldo Kandy Bottle: Aerobic Normal [facility] Comment on above: Performed By: #### B MIRYAM #### [facility] [address] [place] [address] Geraldo Kandy Naomi albicans Not detected Normal [facility] Comment on above: Performed By: #### B MIRYAM #### [facility] [address] [place] [address] Geraldo Kandy Naomi glabrata Not detected Normal [facility] Comment on above: Performed By: #### B MIRYAM #### [facility] [address] [place] [address] Geraldo Kandy Naomi Krusei Not detected Normal [facility] Comment on above: Performed By: #### B MIRYAM #### [facility] [address] [place] [address] Geraldo Kandy Naomi Parapsilosis Not detected Normal [facility] Comment on above: Performed By: #### B MIRYAM #### [facility] [address] [address] Geraldo Kandy Naomi Tropicalis Not detected Normal [facility] Comment on above: Performed By: #### B MIRYAM #### [facility] [address] [address] Geraldo Kandy E. Cloacae complex Not detected Normal [facility] Comment on above: Performed By: #### B MIRYAM #### [facility] [address] [address] Geraldo Kandy Enterobacteriaceae Detected Invalid Interpretation Code [facility] Comment on above: Performed By: #### B MIRYAM #### [facility] [address] [place] [address] Geraldo Kandy Enterococcus Not detected Normal [facility] [facility] Comment on above: Performed By: #### B MIRYAM #### [facility] [address] [address] Geraldo Kandy Escheria coli Detected Normal [facility] Comment on above: Performed By: #### B MIRYAM #### [facility] [address] [place] [address] Geraldo Kandy K. oxytoca Not detected Normal [facility] Comment on above: Performed By: #### B MIRYAM #### [facility] [address] [place] [address] Geraldo Kandy K. pneumoniae Not detected Normal [facility] Comment on above: Performed By: #### B MIRYAM #### [facility] [address] [place] [address] Geraldo Kandy KPC Resistant Gene Not detected Normal [facility] Comment on above: Performed By: #### B MIRYAM #### [facility] [address] [place] [address] Geraldo Kandy List. monocytogenes Not detected Normal [facility] Comment on above: Performed By: #### B MIRYAM #### [facility] [address] [place] [address] Geraldo Kandy mecA Resistant Gene Not detected Normal [facility] Comment on above: Performed By: #### B MIRYAM #### [facility] [address] [address] Geraldo Kandy Proteus Not detected Normal [facility] Comment on above: Performed By: #### B MIRYAM #### [facility] [address] [address] Geraldo Kandy Pseud. aeruginosa Not detected Normal [facility] Comment on above: Performed By: #### B MIRYAM #### [facility] [address] [place] [address] Geraldo Kandy Seratia marcescens Not detected Normal [facility] Comment on above: Performed By: #### B MIRYAM #### [facility] [address] [place] [address] Geraldobhumi Gaitan Site: R AC Normal [facility] Comment on above: Performed By: #### B MIRYAM #### [facility] [address] [place] [address] Geraldobhumi Gaitan Staph. aureus Not detected Normal [facility] Comment on above: Performed By: #### B MIRYAM #### [facility] [address] [place] [address] Geraldo Kandy Staphylococcus Not detected Normal [facility] Comment on above: Performed By: #### B MIRYAM #### [facility] [address] [place] [address] Geraldo Kandy Strep. agalactiae Not detected Normal [facility] Comment on above: Performed By: #### B MIRYAM #### [facility] [address] [place] [address] Geraldo Kandy Strep. pneumoniae Not detected Normal [facility] Comment on above: Performed By: #### B MIRYAM #### [facility] [address] [place] [address] Geraldo Kandy Strep. pyogenes Not detected Normal [facility] Comment on above: Performed By: #### B MIRYAM #### [facility] [address] [place] [address] Geraldo Kandy Streptococcus Not detected Normal [facility] Comment on above: Performed By: #### B MIRYAM #### [facility] [address] [place], [place] [id number] Geraldo Gaitan Aicha/B Resist. Gene Not detected Normal [facility] Comment on above: Performed By: #### B MIRYAM #### [facility] [address] [place], [place] [id number] Geraldobhumi Gaitan CBC AUTO DIFFon 01-02-2020 BASO # 0.0 103/ul Normal 0.0-0.1 [facility] Comment on above: Performed By: #### C BC #### [facility] [address] [place], [place] [id number] Geraldobhumi Gaitan Basophils/100 WBC (Bld) 0.3 % Normal 0.2-2.0 [facility] Comment on above: Performed By: #### C BC #### [facility] [address] [place] [address] Geraldobhumi Charlesen EO # 0.0 103/ul Normal 0.0-0.7 [facility] Comment on above: Performed By: #### C BC #### [facility] [address] [place] [address] Geraldo Gaitan Eosinophils/100 WBC (Bld) 0.3 % Critically low 0.9-7.0 [facility] Comment on above: Performed By: #### C BC #### [facility] [address] [place] [address] Geraldobhumi Gaitan Erythrocyte distribution width (RBC) [Ratio] 12.6 % Normal 11.0-15.0 [facility] Comment on above: Performed By: #### C BC #### [facility] [address] [place] [address] Geraldobhumi Gaitan Hematocrit (Bld) [Volume fraction] 42.7 % Normal 36.0-48.0 [facility] Comment on above: Performed By: #### C BC #### [facility] [address] [place], [place] [id number] Geraldo Kandy Hemoglobin (Bld) [Mass/Vol] 13.6 g/dL Normal 12.0-16.0 [facility] Comment on above: Performed By: #### C BC #### [facility] [address] [place] [address] Geraldobhumi Gaitan IG # 0.04 10e3/ul Critically high 0.00-0.03 [facility] Comment on above: Performed By: #### C BC #### [facility] [address] [place] [address] Geraldobhumi Gaitan IG % 0.3 % Normal 0.0-0.5 [facility] Comment on above: Performed By: #### C BC #### [facility] [address] [place] [address] Geraldo Kandy LYMPH # 0.5 103/ul Critically low 1.2-3.8 [facility] Comment on above: Performed By: #### C BC #### [facility] [address] [place] [address] Geraldobhumi Gaitan Lymphocytes/100 WBC (Bld) 4.4 % Critically low 20.5-60.0 [facility] Comment on above: Performed By: #### C BC #### [facility] [address] [place] [address] Geraldo Gaitan MANUAL DIFF REQ NO Normal [facility] Comment on above: Performed By: #### C BC #### [facility] [address] [place] [address] Geraldobhumi Gaitan MCH (RBC) [Entitic mass] 30.6 pg Normal 26.7-34.0 [facility] Comment on above: Performed By: #### C BC #### [facility] [address] [place] [address] Geraldobhumi Gaitan MCHC (RBC) [Mass/Vol] 31.9 g/dL Normal 29.9-35.2 [facility] Comment on above: Performed By: #### C BC #### [facility] [address] [place] [address] Geraldo Kandy MCV (RBC) [Entitic vol] 96.0 fL Normal 81.0-99.0 [facility] Comment on above: Performed By: #### C BC #### [facility] [address] [place] [address] Geraldo Kandy MONO # 0.8 103/ul Normal 0.3-0.8 [facility] Comment on above: Performed By: #### C BC #### [facility] [address] [place], [place] [address] Geraldo Gaitan Monocytes/100 WBC (Bld) 6.5 % Normal 1.7-12.0 [facility] Comment on above: Performed By: #### C BC #### [facility] [address] [place], [place] [address] Geraldo Gaitan NEUT # 10.1 103/ul Critically high 1.4-6.5 [facility] Comment on above: Performed By: #### C BC #### [facility] [address] [place] [address] Geraldo Gaitan Neutrophils/100 WBC (Bld) 88.2 % Critically high 43.0-75.0 [facility] Comment on above: Performed By: #### C BC #### [facility] [address] [place], [place] [address] Geraldo Gaitan Platelet mean volume (Bld) [Entitic vol] 9.8 fL Normal 9.5-13.5 [facility] Comment on above: Performed By: #### C BC #### [facility] [address] [place], [place] [address] Geraldo Gaitan PLT 254 103/ul Normal 150-450 [facility] Comment on above: Performed By: #### C BC #### [facility] [address] [place], [place] [address] Geraldo Charlesen RBC 4.45 106/ul Normal 4.20-5.40 [facility] Comment on above: Performed By: #### C BC #### [facility] [address] [place], [place] [id number] Geraldobhumi Gaitan CT HEAD WO CONon 01-02-2020 CT [...] REMY NESS Date: 2020-01-02 19:00 Normal [facility] CULTURE BLOODon 01-02-2020 Microscopic examination of blood, culture Culture Observations: No growth at 5 days Normal [facility] Comment on above: Performed By: #### H SAKINA #### [facility] [address] [place] [address] Geraldo Kandy CULTURE URINEon 01-02-2020 CULTURE URINE Culture Observations : Light growth of mixed genital eliezer.No potential pathogens seen. Normal [facility] Comment on above: Performed By: #### Jonatan PRESLEY #### [facility] [address] [place] [address] Geraldo Kandy ER URINE PROFILEon 0 Bilirubin Ql (U) Negative Normal NEGATIVE [facility] Comment on above: Performed By: #### MELODY CORDOVA #### [facility] [address] [place] [address] Geraldo Kandy Clarity (U) SL CLOUDY Normal [facility] Comment on above: Performed By: #### MELODY CORDOVA #### [facility] [address] [place] [address] Geraldo Kandy Color (U) LT. YELLOW Normal YELLOW [facility] Comment on above: Performed By: #### MELODY CORDOVA #### [facility] [address] [place] [address] Geraldo Kandy ERUAHD A micrscopic examina tion will be performed if indicated. Normal [facility] Comment on above: Performed By: #### MELODY CORDOVA #### [facility] [address] [place] [address] Geraldo Kandy Glucose Ql (U) Negative Normal NEGATIVE [facility] Comment on above: Performed By: #### MELODY CORDOVA #### [facility] [address] [place] [address] Geraldo Kandy Hemoglobin Ql (U) SMALL Normal NEGATIVE [facility] Comment on above: Performed By: #### MELODY CORDOVA #### [facility] [address] [place] [address] Geraldo Kandy Ketones Ql (U) Negative Normal NEGATIVE [facility] Comment on above: Performed By: #### MELODY CORDOVA #### [facility] [address] [place] [address] Geraldo Kandy LEUKOCYTES TRACE Normal NEGATIVE [facility] Comment on above: Performed By: #### MELODY CORDOVA #### [facility] [address] [place] [address] Geraldo Kandy Nitrite Ql (U) Negative Normal NEGATIVE [facility] Comment on above: Performed By: #### MELODY CORDOVA #### [facility] [address] [place] [address] Geraldo Kandy pH (U) 7.0 [pH] Normal 5-9 [facility] Comment on above: Performed By: #### MELODY CORDOVA #### [facility] [address] [place] [address] Geraldo Kandy Protein Ql (U) 30 mg/dl Normal [facility] Comment on above: Performed By: #### MELODY CORDOVA #### [facility] [address] [place] [address] Geraldo Kandy SPEC GRAVITY 1.015 Normal 1.005-<=1. 025 [facility] Comment on above: Performed By: #### MELODY CORDOVA #### [facility] [address] [place] [address] Geraldo Kandy UR MICRO IND INDICATED Normal [facility] Comment on above: Performed By: #### MELODY CORDOVA #### [facility] [address] [place] [address] Geraldo Gaitan Urobilinogen Qn (U) 0.2 {Eileen'U}/dL Normal [facility] Comment on above: Performed By: #### E MELODY SHAH #### [facility] [address] [place] [address] Geraldobhumi Gaitan LACTATE/LACTIC ACIDon 2019 Lactate [Moles/Vol] 1.1 mmol/L Normal 0.7-2.0 [facility] Comment on above: Performed By: #### H GB #### [facility] [address] [place] [address] Geraldobhumi Gaitan PROCALCITONINon 01-02-2020 PCT header 1 SEE BELOW Normal [facility] Comment on above: Result Comment: PCT <0.5ng/mL: Systemic infection (sepsis) is not likely, local bacterial infection possible, low risk for progression to severe systemic infection (severe sepsis) Performed By: #### P RL #### [facility] [address] [place] [address] Geraldo Kandy PCT header 2 SEE BELOW Normal [facility] Comment on above: Result Comment: PCT >/=0.5 and <2 ng/mL: Systemic infection (sepsis) is possible, moderate risk for progression to severe systemic infection (severe sepsis) Performed By: #### P RL #### [facility] [address] [place] [address] Geraldo Kandy PCT header 3 SEE BELOW Normal [facility] Comment on above: Result Comment: PCT >/=2.0 and <10 ng/mL: Systemic infection (sepsis) is likely, unless other causes are known, high risk for progession to severe systemic infection(severe sepsis) Performed By: #### P RL #### [facility] [address] [place] [address] Geraldo Kandy PCT header 4 SEE BELOW Normal [facility] Comment on above: Result Comment: PCT >/= 10 ng/mL: Important systemic inflammatory response almost exclusively due to severe bacterial sepsis or septic shock, high likelihood of severe sepsis or septic shock Performed By: #### P RL #### [facility] [address] [place] [address] Geraldobhumi Gaitan PROCALCITONIN 0.62 ng/mL Critically high 0.00-0.50 [facility] Comment on above: Performed By: #### P RL #### [facility] [address] [id number] Geraldo Charlesen PROF 14(COMP METB)on 020 Albumin [Mass/Vol] 3.6 g/dL Normal 3.5-5.0 [facility] Comment on above: Performed By: #### C MP #### [facility] [address] [id number] Geraldo Kandy Albumin/Globulin [Mass ratio] 0.8 {ratio} Normal [facility] Comment on above: Performed By: #### C MP #### [facility] [address] [place] [address] Geraldo Kandy ALP [Catalytic activity/Vol] 95 U/L Normal 38-126 [facility] Comment on above: Performed By: #### C MP #### [facility] [address] [place] [address] Geraldo Kandy ALT [Catalytic activity/Vol] 32 U/L Normal 9-52 [facility] Comment on above: Performed By: #### C MP #### [facility] [address] [place], [place] [address] Geraldo Kandy Anion gap [Moles/Vol] 13.8 mmol/L Normal [facility] Comment on above: Performed By: #### C MP #### [facility] [address] [id number] Geraldo Kandy AST [Catalytic activity/Vol] 42 U/L Critically high 14-36 [facility] Comment on above: Performed By: #### C MP #### [facility] [address] [place], [place] [address] Geraldo Kandy Bilirubin [Mass/Vol] 0.5 mg/dL Normal 0.2-1.3 [facility] Comment on above: Performed By: #### C MP #### [facility] [address] [place] [address] Geraldo Kandy Calcium [Mass/Vol] 9.4 mg/dL Normal 8.4-10.2 [facility] Comment on above: Performed By: #### C MP #### [facility] [address] [place] [address] Geraldo Kandy Chloride [Moles/Vol] 100 mmol/L Normal 98-107 [facility] Comment on above: Performed By: #### C MP #### [facility] [address] [place], [place] [address] Geraldo Kandy CO2 [Moles/Vol] 24.6 mmol/L Normal 22.0-30.0 [facility] Comment on above: Performed By: #### C MP #### [facility] [address] [place] [address] Geraldo Kandy Creatinine [Mass/Vol] 1.36 mg/dL Critically high 0.52-1.04 [facility] Comment on above: Performed By: #### C MP #### [facility] [address] [place] [address] Geraldo Kandy EGFR-AF ITALIAN 46 mL/min/1.73m2 Critically low >=60 [facility] Comment on above: Performed By: #### C MP #### [facility] [address] [place] [address] Geraldo Kandy EGFR-NON AF ITALIAN 38 mL/min/1.73m2 Critically low >=60 [facility] Comment on above: Performed By: #### C MP #### [facility] [address] [place] [address] Geraldo Kandy Globulin (S) [Mass/Vol] 4.5 g/dL Normal [facility] Comment on above: Performed By: #### C MP #### [facility] [address] [place], [place] [id number] Geraldo Kandy Glucose [Mass/Vol] 120 mg/dL Critically high 74-106 [facility] Comment on above: Performed By: #### C MP #### [facility] [address] [place] [address] Geraldo Kandy Potassium [Moles/Vol] 3.4 mmol/L Normal 3.4-5.0 [facility] Comment on above: Performed By: #### C MP #### [facility] [address] [place] [address] Geraldo Kandy Protein [Mass/Vol] 8.1 g/dL Normal 6.1-8.2 [facility] Comment on above: Performed By: #### C MP #### [facility] [address] [place] [address] Geraldo Kandy Sodium [Moles/Vol] 135 mmol/L Critically low 137-145 Th [facility] Comment on above: Performed By: #### C MP #### [facility] [address] [place] [address] Geraldo Kandy Urea nitrogen [Mass/Vol] 22.0 mg/dL Critically high 7.0-17.0 [facility] Comment on above: Performed By: #### C MP #### [facility] [address] [place] [address] Geraldo Kandy Urea nitrogen/Creatinine [Mass ratio] 16.2 mg/mg Normal [facility] Comment on above: Performed By: #### C MP #### [facility] [address] [place] [address] Geraldo Kandy RESPIRATORY PANEL PLUSon Adenovirus Not detected Normal NOT DETECTED [facility] Comment on above: Performed By: #### R SPLUS #### [facility] [address] [place] [address] Geraldo Kandy B. Parapertusis Not detected Normal NOT DETECTED [facility] Comment on above: Performed By: #### R SPLUS #### [facility] [address] [place] [address] Geraldo Kandy B. Pertussis Not detected Normal NOT DETECTED [facility] Comment on above: Performed By: #### R SPLUS #### [facility] [address] [place] [address] Geraldo Kandy Chlamydia Pneumoniae Not detected Normal NOT DETECTED [facility] Comment on above: Performed By: #### R SPLUS #### [facility] [address] [place] [address] Geraldo Kandy Coronavirus 229E Not detected Normal NOT DETECTED [facility] Comment on above: Performed By: #### R SPLUS #### [facility] [address] [place] [address] Geraldo Kandy Coronavirus HKU1 Not detected Normal NOT DETECTED [facility] Comment on above: Performed By: #### R SPLUS #### [facility] [address] [place] [address] Geraldo Kandy Coronavirus NL63 Not detected Normal NOT DETECTED [facility] Comment on above: Performed By: #### R SPLUS #### [facility] [address] [place] [address] Geraldo Kandy Coronavirus OC43 Not detected Normal NOT DETECTED [facility] Comment on above: Performed By: #### R SPLUS #### [facility] [address] [place] [address] Geraldo Kandy Influenza A H1 2009 Not detected Normal NOT DETECTED [facility] Comment on above: Performed By: #### R SPLUS #### [facility] [address] [place] [address] Geraldo Kandy Influenza B Not detected Normal NOT DETECTED [facility] Comment on above: Performed By: #### R SPLUS #### [facility] [address] [place] [address] Geraldo Kandy Metapneumovirus Not detected Normal NOT DETECTED [facility] Comment on above: Performed By: #### R SPLUS #### [facility] [address] [place] [address] Geraldo Kandy Mycoplas. Pneumoniae Not detected Normal NOT DETECTED [facility] Comment on above: Performed By: #### R SPLUS #### [facility] [address] [place] [address] Geraldo Kandy Parainfluenza 1 Not detected Normal NOT DETECTED [facility] Comment on above: Performed By: #### R SPLUS #### [facility] [address] [place] [address] Geraldo Kandy Parainfluenza 2 Not detected Normal NOT DETECTED [facility] Comment on above: Performed By: #### R SPLUS #### [facility] [address] [place] [address] Geraldo Kandy Parainfluenza 3 Not detected Normal NOT DETECTED [facility] Comment on above: Performed By: #### R SPLUS #### [facility] [address] [place] [address] Geraldo Kandy Parainfluenza 4 Not detected Normal NOT DETECTED [facility] Comment on above: Performed By: #### R SPLUS #### [facility] [address] [place] [address] Geraldo Kandy Rhino/Enterovirus Not detected Normal NOT DETECTED [facility] Comment on above: Performed By: #### R SPLUS #### [facility] [address] [place] [address] Geraldo Kandy RP2 Header 1 RESPIRATORY PANEL: VIRUSES Normal [facility] Comment on above: Performed By: #### R SPLUS #### [facility] [address] [place] [address] Geraldo Kandy RP2 Header 2 RESPIRATORY PANEL: BACTERIA Normal [facility] Comment on above: Performed By: #### R SPLUS #### [facility] [address] [place] [address] Geraldo Kandy RP2 Header 4 EUA SEE BELOW Normal [facility] Comment on above: Result Comment: This test is not yet approved or cleared by the [place] FDA. When there are no FDA-approved or cleared tests available, and other criteria are met, FDA can make tests available under an emergency access mechanism called an Emergency Use Authorization (EUA). The EUA for this test is supported by the [place] of Health and Human Service?s (HHS?s) declaration [...] used). Performed By: #### R SPLUS #### [facility] [address] [place] [address] Geraldo Kandy RSV Not detected Normal NOT DETECTED [facility] Comment on above: Performed By: #### R SPLUS #### [facility] [address] [place] [address] Geraldo Gaitan SARS-CoV-2 (COVID-19) RNA VIVIENNE+probe Ql (Unsp spec) Not detected Normal NOT DETECTED [facility] Comment on above: Performed By: #### R SPLUS #### [facility] [address] [place] [address] Geraldo Gaitan URINE MICROSCOPIC ONLYon BACTERIA MODERATE Normal NONE SEEN [facility] Comment on above: Performed By: #### Luis SHAH UMJUSTYNARO #### [facility] [address] [place] [address] Geraldo Gaitan Bacteria identified Cx Nom (U) INDICATED Normal [facility] Comment on above: Performed By: #### Luis SHAH UMICRO #### [facility] [address] [place] [address] Geraldo Kandy CAST NONE SEEN Normal NONE SEEN [facility] Comment on above: Performed By: #### Luis SHAH UMICRO #### [facility] [address] [place] [address] Geraldobhumi Gaitan Crystals LM Nom (Urine sed) NONE SEEN Normal NONE SEEN [facility] Comment on above: Performed By: #### Luis SHAH UMICRO #### [facility] [address] [place] [address] Geraldo Gaitan Epithelial cells LM Ql (Urine sed) RARE Normal [facility] Comment on above: Performed By: #### Luis SHAH UMICRO #### [facility] [address] [place] [address] Geraldo Kandy MUCOUS NONE SEEN Normal NONE SEEN [facility] Comment on above: Performed By: #### KANDICE CORDOVARO #### [facility] [address] [place] [address] Geraldo Kandy RBC 0-2 Normal 0-2 [facility] Comment on above: Performed By: #### KANDICE CORDOVARO #### [facility] [address], [place] [address] Geraldo Gaitan WBC 5-10 Normal NONE SEEN [facility] Comment on above: Performed By: #### E MELODY SHAH #### [facility] [address], [place] [address] Geraldo Gaitan XR CHEST 1 Von 01-02-2020 [...] REMY NESS Date: 2020-01-02 18:52 Normal [facility] Vital Signs Date Time Vital Sign Value Performing Clinician Faci lity 05-09-2024 10:42-0500 Diastolic blood pressure 70 mm[Hg] China Ortiz DATA WAREHOUSE ADMINISTRATOR Work Phone: [facility] 05-09-2024 10:42-0500 Systolic blood pressure 120 mm[Hg] China Ortiz DATA WAREHOUSE ADMINISTRATOR Work Phone: [facility] 05-09-2024 10:34-0500 Body height 149.9 cm China Ortiz DATA WAREHOUSE ADMINISTRATOR Work Phone: [facility] 05-09-2024 10:34-0500 Body mass index (BMI) [Ratio] 20.28 kg/m2 China Ortiz DATA WAREHOUSE ADMINISTRATOR Work Phone: [facility] 05-09-2024 10:34-0500 Body temperature 99.3 [degF] China Ortiz DATA WAREHOUSE ADMINISTRATOR Work Phone: [facility] 05-09-2024 10:34-0500 Body weight 45.54 kg China Ortiz DATA WAREHOUSE ADMINISTRATOR Work Phone: [facility] 05-09-2024 10:34-0500 Heart rate 86 /min China Ortiz DATA WAREHOUSE ADMINISTRATOR Work Phone: [facility] 05-09-2024 10:34-0500 SaO2% (BldA) [Mass fraction] 96 % China Ortiz DATA WAREHOUSE ADMINISTRATOR Work Phone: [facility] 01-24-2024 13:050 Body height 149.9 cm Roger Vasquez DPM Work Phone: [facility] 01-24-2024 13:04-0500 Body mass index (BMI) [Ratio] 20.2 kg/m2 Roger Vasquez DPM Work Phone: [facility] 01-24-2024 13:050 Body weight 45.36 kg Roger Vasquez DPM Work Phone: [facility] Encounters Encounter Date Encounter Type Care Provider Facility Start: 05-09-2024 End: 05-09-2024 Bamboo flowsheet China Hopsonjohnnie DATA WAREHOUSE ADMINISTRATOR Work Phone: [facility] Start: 05-09-2024 End: 05-09-2024 Bamboo flowsheet China Hopsonjohnnie DATA WAREHOUSE ADMINISTRATOR Work Phone: [facility] Start: 05-09-2024 End: 05-09-2024 Office outpatient visit 15 minutes China Diana DATA WAREHOUSE ADMINISTRATOR Work Phone: [facility] Comment on above: Chronic obstructive pulmonary disease with acute exacerbation (CMS/HCC) (Primary Dx) Start: 05-09-2024 End: 05-09-2024 ambulatory CHINA HOPSONValentineCATIE Not Available Start: 04-23-2024 End: 04-24-2024 Telephone encounter Shari Mckeon MD Work Phone: [facility] Start: 04-05-2024 End: 04-05-2024 Refill Shari Mckeon MD Work Phone: [facility] Comment on above: Mild intermittent as thma, unspecified whether complicated (CMS/HCC) Start: 02-20-2024 End: 02-20-2024 ambulatory Kei Espana MD Facility:[facility] Start: 02-07-2024 End: 02-07-2024 Refill Shari Mckeon MD Work Phone: [facility] Comment on above: Mild intermittent as thma, unspecified whether complicated (CMS/HCC) Start: 02-06-2024 End: 02-06-2024 ambulatory Kei Espana MD Facility:[facility] Start: 01-24-2024 End: 01-24-2024 Bamboo flowsheet Roger Vasquez DPM Work Phone: [facility] Start: 01-24-2024 End: 01-24-2024 Bamboo flowsheet Roger Vasquez DPM Work Phone: [facility] Start: 01-24-2024 End: 01-24-2024 Office outpatient visit 15 minutes Roger Vasquez DPM Work Phone: [facility] Comment on above: Dermatophytosis of n ail (Primary Dx); Dystrophic nail; Onychocryptosis; Pain of left great toe Start: 01-24-2024 End: 01-24-2024 ambulatory ROGER VASQUEZ Not Available Start: 01-23-2024 End: 01-23-2024 ambulatory Kei Espana MD Facility:[facility] Start: 01-09-2024 End: 01-09-2024 ambulatory Kei Espana MD Facility:[facility] Start: 12-28-2023 End: 12-28-2023 ambulatory SHARI MCKEON [...] 12-12-2023 End: 12-12-2023 ambulatory Kei Espana MD Facility:[facility] Start: 12-09-2023 End: 12-09-2023 Refill Shari Mckeon MD Work Phone: [facility] Comment on above: Mild intermittent as thma, unspecified whether complicated ([facility]) Start: 11-28-2023 End: 11-28-2023 ambulatory Kei Espana MD Facility:[facility] Start: 11-17-2023 End: 11-17-2023 Refill Shari Mckeon MD Work Phone: [facility] Comment on above: Essential hypertensi on ([facility]) Start: 10-04-2023 End: 10-04-2023 ambulatory ALEXANDER A ALBINA [facility] Start: 09-19-2023 End: 09-19-2023 ambulatory ALEXANDER A HANYLABURG Not Available Start: 09-19-2023 End: 09-19-2023 ambulatory ALEXANDER A HANYLABURG Not Available Start: 09-05-2023 End: 09-05-2023 ambulatory Kei Espana MD Facility:[facility] Start: 08-22-2023 End: 08-22-2023 ambulatory Kei Espana MD Facility:[facility] Start: 07-25-2023 End: 07-25-2023 ambulatory Kei Espana MD Facility:[facility] Start: 07-11-2023 End: 07-11-2023 ambulatory Kei Espana MD Facility:[facility] Start: 06-17-2023 End: 06-17-2023 ambulatory ALEXANDER A HACKENBURG Not Available Start: 04-27-2023 Telephone encounter Ede sierra DO Work Phone: [facility] 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 Start: 04-21-2023 Refill Alexander Aparicio DATA WAREHOUSE ADMINISTRATOR Work Phone: [facility] Comment on above: Essential hypertensi on ([facility]) Start: 07-26-2022 End: 07-26-2022 ambulatory SHARI MCKEON Facility:[facility] Start: 06-29-2022 End: 06-30-2022 ambulatory SHARI MCKEON Facility:[facility] Start: 10-24-2020 End: 10-25-[address] SHARI MCKEON Facility:[facility] Start: 09-30-2020 End: 10-01-[address] SHARI MCKEON Facility:[facility] Start: 02-01-2020 End: 02-01-[address] CARLOS EDUARDO MENENDEZ Facility:[facility] Start: 01-30-2020 Encounter for preprocedural laboratory examination DR CARLOS EDUARDO MENENDEZ [facility] Start: 01-26-2020 End: 01-27-[address] SHARI MCKEON Facility:[facility] Start: 01-26-2020 End: 01-27-2020 Encounter for preprocedural laboratory examination DR SHARI MCKEON Facility:[facility] Start: 01-02-2020 End: 01-02-[address] BÁRBARA BLUE Facility:[facility] Start: 05-25-2018 End: 05-26-2018 Patient encounter procedure DEFAULT PHYSICIAN Facility:[facility] Plan of Treatment Date Care Activity Detail Author Start: 06-16-2024 Medicare Annual Wellness (AWV) Medicare Annual Wellness (AWV) [facility] Start: 05-09-2024 End: 05-09-2024 Patient encounter procedure 05/09/2024 10:30 AM EST Office Visit [facility] [address] [facility] [address] [facility] [place] [address] China Ortiz NP [address] [place] [address] Arrived [facility] Comment on above: Arrived Start: 12-28-2023 End: 12-28-2023 Professional / ancillary services management 12/28/2023 9:00 AM EDT Ancillary Procedure [facility] [address] [id number] [facility] Start: 12-13-2023 End: 02-11-2025 MG Breast - bilateral Screening Bilateral screening mammogram Imaging Routine Encounter for screening mammogram for malignant neoplasm of breast Expected: 12/13/2023, Expires: 02/11/2025 [facility] Work Phone: Comment on above: Expected: 12/13/2023 , Expires: 02/11/2025 Start: 11-13-2023 Influenza vaccination Influenza Vacc ine (#1) [facility] Start: 08-02-2023 End: 08-02-2023 Patient encounter procedure 08/02/2023 9:00 AM EDT Office Visit [facility] [address] [place] [address] Ede Ramos DO [address] [place] [address] [facility] Start: 05-06-2023 Medicare Annual Wellness (AWV) Medicare Annual Wellness (AWV) [facility] Immunizations Immunization Date Immunization Notes Care Provider Fa cility 12-23-2022 Influenza, High-dose Seasonal, Quadrivalent, Preservative Free Alexander Hackenburg DATA WAREHOUSE ADMINISTRATOR Work Phone: [facility] 12-23-2022 SARS-COV-2 (COVID-19 ) vaccine, mRNA, spike protein, LNP, PF, 50 mcg/0.5 mL Alexander Hackenburg DATA WAREHOUSE ADMINISTRATOR Work Phone: [facility] 12-23-2022 influenza virus vaccine, unspecified formulation Shari Mckeon MD Work Phone: [facility] 12-01-2021 Influenza, Seasonal, Quadrivalent, Adjuvanted Alexander Hackenburg DATA WAREHOUSE ADMINISTRATOR Work Phone: [facility] 12-01-2021 Seasonal, trivalent, recombinant, injectable influenza vaccine, preservative free Alexander Hackenburg DATA WAREHOUSE ADMINISTRATOR Work Phone: [facility] 12-16-2020 Influenza, High-dose Seasonal, Quadrivalent, Preservative Free Alexander Hackenburg DATA WAREHOUSE ADMINISTRATOR Work Phone: [facility] 02-14-2020 zoster vaccine recombinant Alexander Hackenburg DATA WAREHOUSE ADMINISTRATOR Work Phone: [facility] 12-07-2019 influenza, seasonal, injectable Alexander Hasobiaenburg DATA WAREHOUSE ADMINISTRATOR Work Phone: [facility] 11-13-2019 influenza, injectabl e, quadrivalent, preservative free Alexander Hasobiaenburg DATA WAREHOUSE ADMINISTRATOR Work Phone: [facility] 11-13-2019 zoster vaccine recombinant Alexander Hasobiaenburg DATA WAREHOUSE ADMINISTRATOR Work Phone: [facility] 11-12-2019 zoster vaccine recombinant Alexander Hasobiaenburg DATA WAREHOUSE ADMINISTRATOR Work Phone: [facility] 11-29-2018 Seasonal trivalent influenza vaccine, adjuvanted, preservative free Alexander Hasobiaenburg DATA WAREHOUSE ADMINISTRATOR Work Phone: [facility] 11-30-2017 influenza, high dose seasonal, preservative-free Alexander Hasobiaenburg DATA WAREHOUSE ADMINISTRATOR Work Phone: [facility] 11-24-2017 Seasonal trivalent influenza vaccine, adjuvanted, preservative free Alexander Hasobiaenburg DATA WAREHOUSE ADMINISTRATOR Work Phone: [facility] 11-18-2016 influenza, high dose seasonal, preservative-free Alexander Hasobiaenburg DATA WAREHOUSE ADMINISTRATOR Work Phone: [facility] Work Phone: 11-18-2016 pneumococcal conjuga te vaccine, 13 valent Alexander Patrickenburg DATA WAREHOUSE ADMINISTRATOR Work Phone: [facility] 11-18-2016 Seasonal trivalent influenza vaccine, adjuvanted, preservative free Alexander Hasobiaenburg DATA WAREHOUSE ADMINISTRATOR Work Phone: [facility] 11-18-2016 tetanus toxoid, redu greg diphtheria toxoid, and acellular pertussis vaccine, adsorbed Alexander Hasobiaenburg DATA WAREHOUSE ADMINISTRATOR Work Phone: [facility] 11-12-2016 pneumococcal polysaccharide vaccine, 23 valent Alexander Hasobiaenburg DATA WAREHOUSE ADMINISTRATOR Work Phone: [facility] 12-11-2015 influenza, high dose seasonal, preservative-free Alexander Hasobiaenburg DATA WAREHOUSE ADMINISTRATOR Work Phone: [facility] 12-30-2014 influenza virus vaccine, whole virus Alexander Hackenburg DATA WAREHOUSE ADMINISTRATOR Work Phone: [facility] 12-30-2014 influenza, injectabl e, quadrivalent, preservative free Alexander Hackenburg DATA WAREHOUSE ADMINISTRATOR Work Phone: [facility] 05-10-2014 pneumococcal conjuga te vaccine, 13 valent Alexander Hackenburg DATA WAREHOUSE ADMINISTRATOR Work Phone: [facility] 12-13-2013 influenza virus vaccine, whole virus Alexander Hackenburg DATA WAREHOUSE ADMINISTRATOR Work Phone: [facility] 01-12-2013 pneumococcal Conjuga te, unspecified formulation Alexander Hackenburg DATA WAREHOUSE ADMINISTRATOR Work Phone: [facility] 01-12-2013 seasonal influenza, intradermal, preservative free Alexander Hackenburg DATA WAREHOUSE ADMINISTRATOR Work Phone: [facility] 12-27-2012 pneumococcal polysaccharide vaccine, 23 valent Alexander Hackenburg DATA WAREHOUSE ADMINISTRATOR Work Phone: [facility] Payers Date Payer Category Payer Unknown 2017 Medicare ANTHEM MEDICARE ADVANTAGE ANTHEM MEDICARE ADVANTAGE [id number] 2017-Present [id number] 2017 Medicare (Managed Care) [facility] [id number] 1959 Unknown [id number] 1945 Unknown [id number] 2.16.840.1.030509.3.579. 2.647 1944 Unknown [id number] 2.16.840.1.918510.3.579. 2.593 1944 Unknown [id number] 2.16.840.1.272426.3.579. 2.593 1944 Unknown [id number] 2.16.840.1.034374.3.579. 2.593 1944 Unknown [id number] 2.16.840.1.312750.3.579. 2.593 1944 Unknown [id number] 2.16.840.1.376773.3.579. 2.593 1944 Unknown [id number] 2.16.840.1.397551.3.579. 2.718 1944 Unknown [id number] 2.16.840.1.119975.3.579. 2.718 1944 Unknown [id number] 2.16.840.1.052743.3.579. 2.1286 1944 Unknown [id number] 2.16.840.1.255929.3.579. 2.196 1944 Unknown [id number] 2.16.840.1.414394.3.579. 2.196 1944 Unknown [id number] 2.16.840.1.431617.3.579. 2.196 1944 Unknown [id number] 2.16.840.1.164613.3.579. 2.196 1944 Unknown [id number] 2.16.840.1.167381.3.579. 2.196 1944 Unknown [id number] 2.16.840.1.294440.3.579. 2.196 1944 Unknown [id number] 2.16.840.1.962762.3.579. 2.196 1944 Unknown [id number] 2.16.840.1.473671.3.579. 2.196 1944 Unknown [id number] 2.16.840.1.241312.3.579. 2.196 1944 Unknown [id number] 2.16.840.1.121855.3.579. 2.196 1944 Unknown [id number] 2.16.840.1.469810.3.579. 2.1259 1944 Unknown [id number] 2.16.840.1.870594.3.579. 2.9 1944 Unknown [id number] 2.16.840.1.614026.3.579. 2.9 1944 Unknown [id number] 2.16.840.1.743819.3.579. 2.9 1944 Unknown [id number] 2.16.840.1.431344.3.579. 2.1259 1944 Unknown [id number] 2.16.840.1.120935.3.579. 2.1259 Social History Date Type Detail Facility Start: 09-17-2022 Tobacco smoking stat [facility] Never smoked tobacco [facility] Start: 09-17-2022 Tobacco use and exposure Smoke less tobacco non-user [facility] Start: 04-18-2023 End: 05-09-2024 Alcohol intake Current drinker of alcohol (finding) [...] more drinks on 1 occasion? Never [facility] Clinical Notes 02-01-2020 to 05-09-2024 China Ortiz, DATA WAREHOUSE ADMINISTRATOR - 05/09/2024 10:30 AM ESTTelephone Encounter - Yasmin Suresh - 04/23/2024 3:36 PM ESTTelephone Encounter - Yasmin Suresh - 04/23/2024 3:36 PM ESTPatient Instructions Note Date & Type Note Facility 05-09-2024 History of Present illness Narrative Images from the original note were not included. Radha Cuadra is a 79 y.o. female presents with chief complaint of Cough HPI: HPI Presents to the office today with complaints of a cough. She denies any sputum production. Having coughing fits where she feels likes it's hard to catch her breath at times. She is using her nebulizer treatments which are helping. Did treatment before coming to her appointment. SUBJECTIVE: MEDICATIONS: Current Outpatient Medications Medication Instructions acetaminophen-codeine (Tylenol w/ Codeine #3) 300-30 MG tablet 1 tablet, 2 times daily PRN atorvastatin (LIPITOR) 20 mg, Oral, Daily owojwqqgrc-ltrdiujdgcetg-qasszaea 50-325-40 MG tablet 1 tablet, Every 4 hours PRN CALCIUM-VITAMIN D PO 2 times daily Fluticasone-Salmeterol 250-50 MCG/ACT aerosol powder 1 puff, Inhalation, 2 times daily losartan-hydroCHLOROthiazide (Hyzaar) 100-12.5 MG tablet 1 tablet, Oral, Every morning Multiple Vitamin (multivitamin) capsule 1 capsule, Daily ondansetron (ZOFRAN) 4 mg, Daily PRN traZODone (DESYREL) 50 mg, Oral, Nightly REVIEW OF SYMPTOMS: Review of Systems OBJECTIVE: Visit Vitals BP 120/70 Pulse 86 Temp 99.3 F (Tympanic) Ht 4' 11 Wt 100 lb 6.4 oz SpO2 96% BMI 20.28 kg/m Smoking Status Never BSA 1.38 m Physical Exam Vitals reviewed. Constitutional: Appearance: Normal appearance. HENT: Head: Normocephalic and atraumatic. Left Ear: Tympanic membrane normal. Nose: Nose normal. Mouth/Throat: Mouth: Mucous membranes are moist. Eyes: Pupils: Pupils are equal, round, and reactive to light. Cardiovascular: Rate and Rhythm: Normal rate and regular rhythm. Pulses: Normal pulses. Heart sounds: Normal heart sounds. Pulmonary: Effort: Pulmonary effort is normal. Breath sounds: Normal breath sounds. Comments: +dry cough Musculoskeletal: Cervical back: Normal range of motion and neck supple. Skin: General: Skin is warm and dry. Capillary Refill: Capillary refill takes less than 2 seconds. Findings: No rash. Neurological: General: No focal deficit present. Mental Status: She is alert and oriented to person, place, and time. ASSESSMENT AND PLAN: Assessment/Plan Diagnoses and all orders for this visit: Chronic obstructive pulmonary disease with acute exacerbation (CMS/HCC) - azithromycin (Zithromax) 250 MG tablet; Take 2 tablets (500 mg) by mouth Daily for 1 day, THEN 1 tablet (250 mg) Daily for 4 days. -initiate abx. Offered steroids, she declines d/t side effects. Continue nebulizer treatments as prescribed. documented in this encounter [facility] 04-23-2024 Telephone encounter Note Pt needs a confirmation of 3 mos supply sent to [facility] Fluticasone-salmeterol 250-50 mcg/act aerosol powder [facility] 04-23-2024 Miscellaneous Notes Pt needs a confirmation of 3 mos supply sent to [facility] Fluticasone-salmeterol 250-50 mcg/act aerosol powder documented in this encounter [facility] 01-24-2024 History of Present illness Narrative Images [...] once daily, Disp: 90 tablet, Rfl: 0 yqrlfctpoj-qdlwfwkxzheyv-mrfbcwrw 50-325-40 MG tablet, Take 1 tablet by [...] Ramos ROTATOR CUFF REPAIR Left 2012 Dr. Rmaos TOTAL SHOULDER ARTHROPLASTY Left 07/26/2022 Family History [...] Roger Vasquez DPM documented in this encounter [facility] 01-24-2024 Instructions Roger Vasquez DPM - 01/24/2024 1:00 PM EST As noted documented in this encounter [facility] 12-22-2023 Telephone encounter Note Approvals with refills [facility] 12-22-2023 Miscellaneous Notes Approvals with refills documented in this encounter [facility] 12-13-2023 Telephone encounter Note Patient called and would like an order for a mammogram sent over. Last one on 12/20/2022. Thank you [facility] 12-13-2023 Miscellaneous Notes Patient called and would like an order for a mammogram sent over. Last one on 12/20/2022. Thank you documented in this encounter [facility] 11-17-2023 Telephone encounter Note Refills sent. [facility] 11-17-2023 Miscellaneous Notes Refills sent. documented in this encounter [facility] 04-27-2023 Telephone encounter Note Called pt and informed [facility] 04-27-2023 Miscellaneous Notes Called pt and informed Pt called stated she had LT TSA 07/26/22 and is getting a cavity filled and needs antibiotic called into [facility] in [place]. Allergies: NKDA . Her call back [phone] documented in this encounter [facility] 04-27-2023 Telephone encounter Note Pt called stated she had LT TSA 07/26/22 and is getting a cavity filled and needs antibiotic called into [facility] in [place]. Allergies: NKDA . Her call back [phone] [facility] 04-21-2023 Telephone encounter Note Refills sent. [facility] 04-21-2023 Miscellaneous Notes Refills sent. documented in this encounter [facility] 07-27-2022 Note [phone] [id number] [facility] 07-26-2022 Note [facility] SURGERY Clinical Discharge Summary PERSON INFORMATION Name RADHA CUADRA Age 77 Years 1945 Sex FEMALE Language Mongolian PCP SHARI MCKEON Marital Status [facility] Service Ambulatory Surgery N 18-22-14 Acct# Arrival 07/26/2022 05:52:10 Visit Reason SURGERY - LEFT REVERSE TOTAL SHOULDER - ARTHREX Acuity LOS 05 02:57 Address: [address] [place] [address] [place] [address] Comment: PROVIDER INFORMATION VITALS INFORMATION Vital Sign [...] REASON INCOMPLETE INFORMATION (more content not included)... [facility] 02-01-2020 Note OPERATIVE NOTE OPERATION DATE: 02/01/2020 [...] position. She was sedated by the nurse cigarette vendor. Bite block was placed in her mouth. [...] patient tolerated the procedure without any difficulties. [facility] SIGNED AND APPROVED BY: DR CARLOS EDUARDO MENENDEZ . 02/07/2020 09:15:00 [facility] Evaluation note Diagnosis Essential hypertension (CMS/HCC) [...] [facility] Diagnosis Chronic obstructive pulmonary disease with acute exacerbation (CMS/HCC)- Primary documented in this encounter [facility] [...] CREATED AUTHOR AUTHOR'S ORGANIZ ATION 11/06/2020 [facility] DATE CREATED AUTHOR AUTHOR'S ORGANIZ ATION 05/12/2022 [facility] dical Specialist DATE CREATED AUTHOR AUTHOR'S ORGANIZ ATION 07/28/2022 [facility] DATE CREATED AUTHOR AUTHOR'S ORGANIZ ATION 10/06/2023 [facility] DATE CREATED AUTHOR AUTHOR'S ORGANIZ ATION 03/05/2024 [facility] DATE CREATED AUTHOR AUTHOR'S ORGANIZ ATION 05/11/2024 [facility] dical Specialists EPIC Reason for [...] try anything to help with discomfortSS: 6 Reason Comments Cough Care Teams (unrecognized sec tion and content) Chaplain Relationship Specialty Start Date End Date Alexander Aparicio NP [address] [place] [address] PCP - Cristobal FIGUEROA 03/21/21 Shari Mckeon MD [address] [place] [address] PCP - General Family Medicine 07/26/22 Chaplain Relationship Specialty Start Date End Date Alexander Aparicio NP [address] [place] [address] PCP - Cristboal FIGUEROA 03/21/21 Shari Mckeon MD [address] [place] [address] PCP - General Family Medicine 07/26/22 Chaplain Relationship Specialty Start Date End Date Alexander Aparicio NP [address] [place] [address] PCP - Cristobal FIGUEROA 03/21/21 Shari Mckeon MD [address] [place] [address] PCP - General Family Medicine 07/26/22 Chaplain Relationship Specialty Start Date End Date Alexander Aparicio NP [address] [place] [address] PCP - Cristobal FIGUEROA 03/21/21 Shari Mckeon MD [address] [place] [address] PCP - General Family Medicine 07/26/22 Chaplain Relationship Specialty Start Date End Date Alexander Aparicio NP [address] [place] [address] PCP - Cristobal FIGUEROA 03/21/21 Shari Mckeon MD [address] [place] [address] PCP - General Family Medicine 07/26/22 Chaplain Relationship Specialty Start Date End Date Alexander Aparicio NP [address] [place] [address] PCP - Cristobal FIGUEROA 03/21/21 Shari Mckeon MD [address] [place] [address] PCP - General Family Medicine 07/26/22 Chaplain Relationship Specialty Start Date End Date Alexander Aparicio NP [address] [place] [address] PCP - Cristobal FIGUEROA 03/21/21 Shari Mckeon MD [address] [place] [address] PCP - General Family Medicine 07/26/22 Chaplain Relationship Specialty Start Date End Date Alexander Aparicio NP [address] [place] [address] PCP - Cristobal FIGUEROA 03/21/21 Shari Mckeon MD [address] [place] [address] PCP - General Family Medicine 07/26/22 Chaplain Relationship Specialty Start Date End Date Alexander Aparicio NP [address] [place] [address] PCP - Cristobal FIGUEROA 03/21/21 Shari Mckeon MD [address] [place] [address] PCP - General Family Medicine 07/26/22 Chaplain Relationship Specialty Start Date End Date Shari Mckeon MD [address] [place] [address] PCP - General Family Medicine 07/26/22 Chaplain Relationship Specialty Start Date End Date Shari Mckeon MD [address] [place] [address] PCP - General Family Medicine 07/26/22 FOR [...] BE BASED ON THE PRIMARY CLINICAL RECORDS. [facility] provides no warranty or guarantee of the accuracy or completeness of information in this document.
== END 2024-05-23 08:30 | disposition home or self-care (01) ==
LOC: PM 08:29
PROVIDERS: PCP Family Medicine; Visit Provider Nurse Practitioner
DX: M54.89 Other dorsalgia (principal); M47.814 Spondylosis without myelopathy or radiculopathy, thoracic region; M47.816 Spondylosis without myelopathy or radiculopathy, lumbar region; Z79.891 Long term (current) use of opiate analgesic; M19.90 Unspecified osteoarthritis, unspecified site
CPT/HCPCS: G0463

== ENCOUNTER 2024-06-06 07:29 | Outpatient (OUT) | payer MEDICARE, SELFPAY ==
--- OUTSIDE RECORDS SUMMARY | 2024-06-06 07:32 | XMS_ITS | CCD ---
Author Organization [facility] Care Team Providers Care Cardiovascular Tech Name Role Phone PHYSICIAN, DEFAULT Admitting Unavailable [...] able Ede Ramos Attending Unavail able Albina HANDTOOLS REPAIRER, Alexander Plascencia Unavailable Shari Mckeon MD Primary [...] [facility] darinle APARICIO, ALEXANDER Plascencia Referring SHARI Richmond Referring ROGER Mcintyre Attending Unavailable Allergies Allergy Classification Reported Allergen(s) Allergy Type Date of Onset Reaction(s) Facility (2 sources) Alendronate; Translations: [Fosamax] Drug Allergy 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 DRIVER PARAMEDIC CURRENT DRUG THERAPY] Onset: 02-14-2020 Episodic Other aftercare (1 source) [facility] (current) use of aspirin; Translations: [AMBULANCE DRIVER PARAMEDIC CURRENT USE OF ASPIRIN] Onset: 01-04-2020 Episodic [...] Not Available Consent Formson 07-27-2022 Consent Forms [id number] [facility] Discharge Instructionson Discharge Instructions [id number]#1.00OTGTIFF [facility] MAGR Intraoperative Recordon 07-27-2022 MAGR Intraoperative Record MAGR Intra-Op Record Summary Primary Physician: Ede Ramos DO Finalized Date/Time: 07/27/22 09:45:04 Pt. Name: RADHA CUADRA /Sex: 1945 FEMALE Med Rec #: [id number] Physician: Ede Ramos DO Financial #: [id number] Pt. Type: D Room/Bed: / Admit/Disch: 07/26/22 [...] Role Performed Surgeon - Primary Anesthesiologist of Engineering Documentation Specialist Record Time In 07/26/22 07:39:00 07/26/22 07:39:00 07/26/22 07:39:00 Time Out 07/26/22 09:49:00 07/26/22 09:49:00 07/26/22 09:49:00 Procedure Arthroplasty Shoulder Arthroplasty Shoulder Arthroplasty Shoulder Total Reverse(Left) Total Reverse(Left) Total Reverse(Left) Last Modified By: Mode GOLDMAN, Jania Coello RN, Jania Coello RN, Jania Plascencia 07/26/22 09:49:54 07/26/22 09:49:54 07/26/22 09:49:54 Entry 4 Entry 5 Entry 6 Case Attendee Fahad CHEMISTPaulina CST, Kelly CST McMurray CST/CSFAZOE CST Role Performed Scrub Personnel Scrub Personnel Merchandise Deliverer Time In 07/26/22 07:39:00 07/26/22 07:39:00 07/26/22 07:39:00 Time Out 07/26/22 09:49:00 07/26/22 09:49:00 07/26/22 09:49:00 Procedure Arthroplasty Shoulder Arthroplasty Shoulder Arthroplasty Shoulder Total Reverse(Left) Total Reverse(Left) Total Reverse(Left) Last Modified By: Mode GOLDMAN, Jania Coello RN, Jania Conde RN 07/26/22 09:49:54 07/26/22 09:49:54 07/26/22 09:49:54 General Comments: Nicholas [place] - Arthrex rep Surgical Procedures MAGR Pre-Care [...] to chemical sources (more content not included)... [facility] Outside Recordson 07-27-2022 Outside Records [id number][facility] 07-27-2022 Provider Orders [id number]#1.[facility] Telemetry Stripson Telemetry Strips [id number]#1.00[facility] 07-26-2022 Anesthesia Note Patient: [...] 07/26/2022 11:51 EDT] Remy Da Silva MD [facility] Anesthesia Note Patient: RADHA CUADRA Age: [...] obstructive pulmonary disease (COPD) / SNOMED CT 39081921 / Confirmed Heart murmur / SNOMED CT 422813836 / Confirmed Hyperlipidemia / SNOMED CT 95426054 / Confirmed HTN (hypertension) / SNOMED CT 8271804652 / Confirmed Histories Family History: COPD Mother Father Procedure history: Arthroplasty of left knee (7166862380). Arthroplasty of right knee (0699872474). Carpal tunnel release (122592053). Comments: 06/29/2022 13:15 EDT - Dorota Myers RN bilat Colonoscopy (966509348). EGD - Esophagogastroduodenoscopy (9336397168). Disorder of rotator cuff (1049520629). Comments: 06/29/2022 13:14 RYANT - Dorota Myers [...] Oriented. Review / Management Laboratory Results Plan [place] [employer] Anesthesiologists#(ASA) physical status classification: Class [...] 08:23 EDT] Remy Da Silva MD Normal [facility] Inpatient Patient Summaryon 07-26-2022 [place] [address] Patient Discharge Instructions Name: CLAUDIALIV MELENDREZJANELLE DAVISONILY : 1945 Patient Address: [address] [place] [address] [place] [address] Primary Care Provider: Name: SHARI MCKEON After you are discharged if you find you have any questions, please, call [phone] ext [phone] to speak to a nurse. Discharge Diagnosis: [...] alcohol and/or drug addiction problems; contact the [facility] 04/10 Crisis Hotline -Text 4HZCF hx 304720. If you received any narcotics, sedation, or [...] business decisions or sign any legal documents [facility] would like to thank you for allowing us to assist you with your healthcare needs. The following includes patient education materials and information regarding your injury/illness. RADHA CUADRA has been given the following list of follow-up instructions, prescriptions, and patient education materials: Follow-up Instructions With: Address: When: Ede Ramos [address] [place] [address], [address] [place] [id number] [facility] (1) 08/03/2022 11:00 AM Medications [...] fingers frequently (more content not included)... Normal [facility] MAGR Intraoperative Recordon 07-26-2022 MAGR Intraoperative Record MAGR Intra-Op Record Summary Primary Physician: Finalized Date/Time: 07/26/22 07:42:32 Pt. Name: RADHA CUADRA BRAD Dangelo/Sex: 1945 FEMALE Med Rec #: [id number] Physician: Ede Ramos DO Financial #: [id number] Pt. Type: D Room/Bed: / Admit/Disch: 07/26/22 [...] Dorota Myers RN Role Performed Anesthesiologist of Engineering Documentation Specialist Engineering Documentation Specialist Record Time In 07/26/22 07:13:00 07/26/22 07:13:00 07/26/22 07:13:00 Time Out 07/26/22 07:38:00 07/26/22 07:38:00 07/26/22 07:38:00 Procedure Interscalene Block(Left) Interscalene Block(Left) Interscalene Block(Left) Last Modified By: Kimberley Le RN, Margaret RN Klaehn, Margaret RN 07/26/22 07:39:31 07/26/22 07:39:31 07/26/22 07:39:31 Entry 4 Case Attendee Amy Bates RN Role Performed Engineering Documentation Specialist Time In 07/26/22 07:13:00 Time Out 07/26/22 [...] Stretcher Post-op Destinat (more content not included)... [facility] MAGR PACU Recordon MAGR PACU Record MAGR PACU Record [facility] Primary Physician: Ede Ramos DO Finalized Date/Time: 07/26/22 10:38:28 Pt. Name: RADHA CUADRA/Sex: 1945 FEMALE Med Rec #: [id number] Physician: Ede Ramos DO Financial #: [id number] Pt. Type: D Room/Bed: / Admit/Disch: 07/26/22 05:52:10 - Institution: PACU Case Times MAGR Entry 1 In PACU I 07/26/22 09:51:00 Discharge from PACU 07/26/22 10:35:00 I Last Modified By: Warner Bolton RN 07/26/22 10:38:23 Finalized By: Warner Bolton RN Document Signatures Signed By: Warner Bolton RN 07/26/22 10:38 [facility] MAGR Postoperative Recordon 07-26-2022 MAGR Postoperative Record MAGR Phase II Record Summary Primary Physician: Ede Ramos DO Finalized Date/Time: 07/26/22 12:01:17 Pt. Name: CHRISTI RADHA Dangelo/Sex: 1945 FEMALE Med Rec #: [id number] Physician: Ede Ramos DO Financial #: [id number] Pt. Type: D Room/Bed: / Admit/Disch: 07/26/22 [...] Signed By: Annamarie Samuels RN 07/26/22 12:01 [facility] MAGR Preoperative Recordon 0 07-26-2022 MAGR Preoperative Record MAGR Pre-Op Record Summary Primary Physician: Ede Ramos DO Finalized Date/Time: 07/26/22 07:44:03 Pt. Name: RADHA CUADRA /Sex: 1945 FEMALE Med Rec #: [id number] Physician: Ede Ramos DO Financial #: [id number] Pt. Type: D Room/Bed: / Admit/Disch: 07/26/22 [...] Signed By: Kimberley Le RN 07/26/22 07:44 [facility] Operative Report - Surgeon/P pablo 07-26-2022 [...] Estimated blood loss: 50 Complications: None Findings: Qcwn-cz-oops in the glenohumeral joint Procedure summary: Patient [...] on: 07/26/2022 09:35 EDT] Ede Ramos DO [facility] Patient Handouton 07-26-[address] [...] or concerns, please call the office at [phone] 7. Follow up as scheduled [facility] XR Shoulder 1 View Lefton XR [...] MD 07/27/22 4:01 pm Technologist: JORDON RUVALCABA [facility] Comment on above: Order Comment: chey lt status post shoulder replacement Progress Note - Nurseon 07-12 Progress Note - Nurse Pre-op call made to pt. Pt states understanding of arrival time of 0600 on 07/26/22 and NPO after MN. [Electronically Signed on: 07/23/2022 09:27 EDT] Shantel Gonsalez RN [Verified on: 07/23/2022 09:27 EDT] Shantel Gonsalez RN [facility] Coding Summaryon 07-02-2022 Coding Summary HTMLBase 64 FywrtbogBNj2qUw+PGhlYWQ+PE1F KPQrS05aiREfpM2MJ3zXNF1BETNP YGSSXI0AKZ5wuHY8VYryL9YiuyFt PlrbnAJvWF08CSw1IIH3cSicCIwt bY7fwELgI3n0JyBhXH24bM82OXyv TLAeOyU9ZzYlyidspZRk C3usJmMoeEInNlk+PHRhYmxlIHdp LFWmFShdNJDrFxQehZnoCC3fFq5m ZGVyLWNvbGxhcHNlOiBj p2cxXOSjRRhzPZ0hlHyjP0IpgZT0 UAFbn4i8Dn90lUA+SRInQHA8bLfk OQnoy889XiIjn7aiNHT8 wFQvOTllWYD2A80tr2N5NXEhWMSg BQY5lLS6iB8otJidivveT0RrkGOn OoL8EMP0rAUkcN7ruTfh zrdgeM7rRit+I89FPA5INXOBGR3B Dln1X5MoQwlscLW+OT54IYKyLA48 tIXgqFDng7mtvKg6StXi SPZrFZK4eFrmBOpiq2AcPTMjP06o xIMzk5D9ZSSvqBsxlSCgOvHtgLK9 fD7lGQpnhiczh1lckxgj Wgrcc6vwyl26qD21W91pKHtnOFWz HSN2KKSzSGIkjWsxxx8vfE1fKe9+ KEfbo4uud9eezRe3ImGt NAYcuaBjmYziTUI2f9PuNl31Y2Vi gKnht5KvCom0hw77rBMiv0L9kTT4 CPfhCPNqlU2fOYagVcI1 QKXrLpQgnR12hDUyTTgwSp9xtLcc zPgpCO6oVKOoqdmlBMOjuE0iQGLl xKFeqByiDB8xXRIwnfrp r558BlWtZUW7MHPdbHNjZ6HtqI1f ZqYiIFDwFGSqM2VzhMQlWXgqN054 MZpiLnQ0RZQirwSoB0Og YOCqiJlaCqO2v5A7Dl3Sm6Pnjopu CRP9CGnyONY0ZnYxWfVaBhN5S0Un Psm5ADVynKusFK8lY6Es EDQivotuwcgmuWA5XVRdVOFljL67 pABdUYbwAt8lj2C2p731ZSYbNQCc cN06Ma7dxOquSOHoqHTA vG7xhgtog2suplxnBzSkXIYmCBi4 SNh7TVKqsCopJgFcPPK9HbC4JSJ7 vZFbtE7gvPmvnhacjV9f Oyc+B86ojU9iJAD1THS0dcveMDLf ydVtEY11WI44A2OcDmncxEPirJG+ DAWokbLhgZqbJT7yBwPn j2rlr6RcXDlqA9JtXEIjYElpOfn8 AUMpDJS7kMT2dZ9vQVIcQQfdr7O0 gBA3U3LsmaQutm8fy6sj HEVhFAenU84ueTTjj8Q4QKFqvYO6 VNQkeRacAjZseB32Pbc+PGNvbGdy f4QjNjkoc8cyy8tnrLa1 AbZuMBRuvcKukGeaQDC3u6UcAz44 X65nGMcvANWxRYRlLVTbPHHnzHym sl5arS0hBv9+PGNvbCB3 lSU5dD5dAODyVcJ6YRsnR992YdRg cXXfWbvst4lhq3tyhRe0VaRoRXJm vtVddKziEPE7r9OyBl49 P45dFMtaHNIxXWXxMTDtKCStjMez lb2gdQ1fQu7+FN1qn9hbfq67iW09 dHI+FUZdTRK1kCteGFpq YHIoeQ0gTUilQeC6RCVyIyTgqP30 wZLmZJwlNv8fhAnhpPltLO1kFWAe tezqv283AtJkk0yrXBAs uIInDOvdDLE1X56qx1Q1DDKsYMYc TWQ4qLO6lH1kyMqcrtlahRMnkMpl soAiaKrrHWvmPRusP658 IHRvcDsnPlBhdGllbnQgTmFtZTo8 C8EsQmc7MHEmgOjhUO7seKQzBJls Ix6aeCfscUpxNB4ePDQw eypdf726HyTex7kuHPTezFAcGYex HDI8G21ar7W8TZAvQWZoVUM3aBM7 vJ3zgRdmcdcfwFZdtGep vkXvmJktTXvdROlaJ812ZBSnjSac HiNfefRxAGLadOJ6ZG31GG76wXBg s4R4nSN8H8JoXPWbozsr pnakjDJ5GOKrMVLqlC52Mq9fzKdj Ss3jOGGuPRI0PKSmkGSbV7PcoF8j YxNaWDEoHPHjR9IsvOSx PJjnO559FLmgWmY1NBIrsgPvF5Bx SSOxsZviGdD0k6M9Mo4KN5I3QE83 GF57kERuw9I6aTJ4P7Cn IGFewomcqxjhnDQ6AHAeKDTndT43 Pu7fkJyoJi3nJVLbJES6WQKnkBKb N4LqbP9zIgRxLEGaDHVv J7XtcWHrSDpoJ643HRiuWnJ9DEJt ymRgL3GpGCPpbMxoYpF5m5T7Cq1G RUn2NI17RD42yQRpo4B7 yZZ6C5RwAUFunmpzdwexuYA4ZJCl CVKkrA46Gp7eaSjoUh9qBXFgCEJ5 JLQrkCGwW3WhwU8vSlEp FFGlGZKrZ7BvuLAyUCelC923VNoh DzV8BOZhkrOvJ5SaKYNqeWigKqS9 f3W2Vd1QETLyFM18YZH4 qRS1PG97BC70P2HxXydgiCSxkBY+ PHRhYmxlIHdpZHRoPScxMDAlJyBz jIcgQN2cNt0gVDCoLIJk jLflbBEzRfFoa6koLZXhHUvdHA5k iAwwU4RjfBQ7VGTat9h3Hc98F10w X7IesPB+MPVgfUU5vOK5 qY5eBoJyQlW0VTioG151UeVejXIg Qvqtj7asz8fdqAs3PlW5KDLdfaKu bBfwZBA4z8HwZz57K44j QAflNFJkKTKuCFDrRSPjhMuaps9z qZ3bDv7+BDMvvCE1kVK2fI0jLxNd ByH1WCtfY739MxXsyHSj Cjnvz2kgm3mtzVs8GuOnDPNlriDi tGosFFP2n9HlZt36E7GjaYnbi6Ld Lhl0hu67gHAul3D1rEF6 A4IoYHIsprrcjMTyjFwxNM8kODPt hwtsTZKnsS5iLHZoZ7b1QyPdSzF5 JGktX3ImqiF0BUEpeEFg LJbkTIQ2U57gj4K2BVYlSWVzXWB2 eCZ7dC7noKfmumgkpIOpeAxoaoYa xMyvBPvnPOaeH706XAHa fUefARUilC0wXIRruYMhpXrqFX0j OEXarggbIyhGWVDwITeSGBesHN4P JZb1W1HyNwm7MPNzcQaw CJ6kgAAzBQyxYy1isZaveHijYR8b MLCogdutXMSuuU5gWQZuxQToeXfq NY3uXLSabkakc387EuOk QYT5KJVsgQDuW6FjyT6bUiEeIMGm KLWsD8FfgCEkGXahZ738PHhgZxW6 KWSrodCtX0OnYUOydWzg ZtW1c2R5Zo7bNy9fId6qCZH8AL10 OC20sAMut9S0oYJ1C3YwCCUakjuu tcxviOD3ROKpCCDngM80 ySUwPKsuSw4op0B3e662ZDIdHXDq oB34Iz0upFjiEUDgzJKZtV7cjefp w1vroknpWsTcFBFlDYj5 RDt5THZaaXbhWkFuBPG3NyO9BFO1 qIKkzI9jpHgjflsatQ8mAei+Nzgg XNMqzgO0B5DoGah8ADOp kIrdMT3tpQEtQXykVl6zwGizzInr YT3vKEUvakarRUQoyZ3uIEGzvTTr aRoxWE2pYUKayfyss920 NzToNUM0AXWtxSHpK3GfhK3uAmDx BZPdZKYbF4AadUMyFDsyL085TZpd ToC2DCFxbsBiN1IuISXw nZkcJoY2d4M3Ll4KGZ2RBEO7O6Dn Uwf5XYGzzBcxML7yvCVzJXxzGu0j vNandCpyTI7pFFPccans JXYqhU7uTZJihUNjsIinJU2jSEYg ljyjr621KwPfTLT5IYUhtFZjH2Wq cW8dPbNzCWYgBGYoW4Rj aOOfBDucL572UXykBqC5VEBtknTk N3OwGGQxdLntOtE7p0J5Ki5FHNaw dGQ+KO02rd29E9EnNcqi Gdb4MRKxESI0wHN1qL1yLUSqGNep u4G2wZC9O9FojdFrru9zx4juAXIi HDzcS55itLIac0K4QJQe uAR3HGSknIhmRuBptS48Vfz+PGNv oFlvz4AbTdevy7mqw0ulkCp8VmYx NRAllfArhWhoPVZ9d4Vy No06X58nWUsjDKHhRNNtZNCiFEGb jWejtn7ukT1kFe4+HVLbuOU4nNB8 aE0iTcByBtY9EGywA855 RhIseUEyPplay2ovn7ptrYq1JoYn LMGoihVaoOgnFDQ3o1XyRs78M5Mg eZwyb1MnCov2cy23eDEi y8V7gAX9U8IgTNStjkfvkGQlfBev VH4tMXChzcywDTOvuC4fDTIbV0u4 SdMuIuT9XVjtI5HphcE3 YAOamINjXIMxmRPPiD2yrhgxk9vt ididSgTqJTCwXRl2FOw6EBDduBhn EvBbWPV3ThQ3NIR0zQNc yX0qoUidxrmmqR0yKqq+UUr8k4jw jRJhNG2rfQU4HY18VY26tCFsy8B6 mWX9B0GoQYObbymmkslj nUZ4RQWrARGguU50Ja2ptEmwTr4y NYQnGIY6VHJuaYIeN4FqgO5mBfFj ZYJrWYReP7WwxZRmDPlq F613SPfjFzD1VHWvmkOkY4ErAGXh xYzdEzR6g2Y6Vo3TZZ34LD03KF26 iPEgz2Q8iEJ5W6JpBRWm ezsrpvwaaLD3WEWiCMIbuD47Ow5r bMneKr1aCLApJCM6FMEekNXvN6Ny qT6fTvMpITNfIVVuL7Vi cXBlTJvfM504VVuyEwI2RISwysBj M6ZzFFVwhQhdNjN3d8A5Sn7XSh81 QJ42JY65sTNgt2T8kYV0 X5DwJDUvwprqrkqysDA2SAKjEMJi gC41Dx3kgBxqAi4mZIRcOCC8OGOv jTRcM1XbiC3oCxBjZLKm AIMbA2JfcIXfJDhrS288JKcxBcH1 LXIoloOmL8YbORPwjOltKwU6x2D5 Da2XVGbqnxz5G1JwAvbd dHI+UJ85ACLwKP32hXGfqLZqd3fz pYg3LpQyWGDgMJD0rAkwNIxks5Ew VYCeW36vcBVos9J9OUXm bGx (more content not included)... [facility] C MRSA Screenon 06-30-2022 C MRSA Screen Negative [facility] Comment on above: Performed By: #### 1 [id number] ####[facility] (DEFAULT)[address] [place] [address] Progress Note - Nurseon 04- Progress Note - Nurse Dr. Castro reviewed PAT notes for upcoming surgery 07/26/2022. No new orders at this time [Electronically Signed on: 06/30/2022 11:45 EDT] Annamarie Samuels RN [Verified on: 06/30/2022 11:45 EDT] Annamarie Samuels RN [facility] Provider Orderson 06-30-2022 Provider Orders [id number]#[id number] [facility] .Auto Diff 1on 06-29-2022 Auto Faulk % 10 % Normal 1-12 [facility] Comment on above: Performed By: #### 7 [id number], [id number], [id number] ####[facility] (DEFAULT)[address] [place] [address] Baso Abs# 0.0 x10 Normal 0.0-0.2 [facility] Comment on above: Performed By: #### 7 [id number], [id number], [id number] ####[facility] (DEFAULT)[address] [place] [address] Basophils/100 WBC (Bld) 0.7 % Normal 0.2-2.0 [facility] Comment on above: Performed By: #### 7 [id number], [id number], [id number] ####[facility] (DEFAULT)[address] [place] [address] Eos Abs# 0.6 x10 High 0.0-0.4 [facility] Comment on above: Performed By: #### 7 [id number], [id number], [id number] ####[facility] (DEFAULT)[address] [place] [address] 68963 Eosinophils/100 WBC (Bld) 8.5 % High 0.9-4.0 [facility] Comment on above: Performed By: #### 7 [id number], [id number], [id number] ####[facility] (DEFAULT)[address] [place] [address] 51206 Lymph Abs# 1.6 x10 Normal 1.3-2.9 [facility] Comment on above: Performed By: #### 7 152404, [id number], [id number] ####[facility] (DEFAULT)[address] [place] [address] 27426 Lymphocytes/100 WBC (Bld) 24 % Normal 14-48 [facility] Comment on above: Performed By: #### 7 616246, [id number], [id number] ####[facility] (DEFAULT)[address] [place] [address] Faulk Abs# 0.7 x10 Normal 0.0-0.8 [facility] Comment on above: Performed By: #### 7 126183, [id number], [id number] ####[facility] (DEFAULT)[address] [place] [address] Neut Abs# 3.8 x10 Normal 1.5-9.2 [facility] Comment on above: Performed By: #### 7 154251, [id number], [id number] ####[facility] (DEFAULT)[address] [place] [address] 04983 Neutrophils/100 WBC (Bld) 57 % Normal 44-88 [facility] Comment on above: Performed By: #### 7 488703, [id number], [id number] ####[facility] (DEFAULT)[address] [place] [address] BMP Standardon 06-29-2022 eGFR Non AA 33 mL/min/1.73m2 Invalid Interpretation Code [facility] Comment on above: Performed By: #### 7 [id number], [id number], [id number] ####[facility] (DEFAULT)[address] [place] [address] eGFR AA 40 mL/min/1.73m2 Invalid Interpretation Code [facility] Comment on above: Performed By: #### 7 [id number], [id number], [id number] ####[facility] (DEFAULT)[address] [place] [address] 08550 Anion gap [Moles/Vol] 8.9 mmol/L Normal 5.0-19.0 [facility] Comment on above: Performed By: #### 7 200054, [id number], [id number] ####[facility] (DEFAULT)[address] [place] [address] 45453 Calcium [Mass/Vol] 9.3 mg/dL Normal 8.9-10.3 [facility] Comment on above: Performed By: #### 7 869935, [id number], [id number] ####[facility] (DEFAULT)[address] [place] [address] 14867 Chloride [Moles/Vol] 102 mmol/L Normal 101-111 [facility] Comment on above: Performed By: #### 7 264065, [id number], [id number] ####[facility] (DEFAULT)[address] [place] [address] 31669 CO2 [Moles/Vol] 28 mmol/L Normal 21-32 [facility] Comment on above: Performed By: #### 7 810479, [id number], [id number] ####[facility] (DEFAULT)[address] [place] [address] 62594 Creatinine [Mass/Vol] 1.53 mg/dL High 0.60-1.30 [facility] Comment on above: Performed By: #### 7 157762, [id number], [id number] ####[facility] (DEFAULT)[address] [place] [address] 81510 Glucose [Mass/Vol] 107.0 mg/dL Normal 74.0-118.0 [facility] Comment on above: Performed By: #### 7 239511, [id number], [id number] ####[facility] (DEFAULT)[address] [place] [address] 07794 Osmolality 279 mOsm/L Invalid Interpretation Code [facility] Comment on above: Performed By: #### 7 [id number], [id number], [id number] ####[facility] (DEFAULT)[address] [place] [address] Potassium [Moles/Vol] 3.9 mmol/L Normal 3.6-5.1 [facility] Comment on above: Performed By: #### 7 505674, [id number], [id number] ####[facility] (DEFAULT)[address] [place] [address] Sodium [Moles/Vol] 135.0 mmol/L Low 136.0-144 . 0 [facility] Comment on above: Performed By: #### 7 [id number], [id number], [id number] ####[facility] (DEFAULT)[address] [place] [address] Urea nitrogen [Mass/Vol] 36 mg/dL High 8-26 [facility] Comment on above: Performed By: #### 7 [id number], [id number], [id number] ####[facility] (DEFAULT)[address] [place] [address] Urea nitrogen/Creatinine [Mass ratio] 23.5 mg/mg High 4.6-16.2 [facility] Comment on above: Performed By: #### 7 [id number], [id number], [id number] ####[facility] (DEFAULT)[address] [place] [address] CBC w/ Auto Diffon 3 Erythrocyte distribution width (RBC) [Ratio] 12.8 % Normal 11.5-15.0 [facility] Comment on above: Performed By: #### 7 [id number], [id number], [id number] ####[facility] (DEFAULT)[address] [place] [address] Hematocrit (Bld) [Volume fraction] 36.4 % Normal 33.7-40.4 [facility] Comment on above: Performed By: #### 7 [id number], [id number], [id number] ####[facility] (DEFAULT)[address] [place] [address] Hemoglobin (Bld) [Mass/Vol] 12.2 g/dL Normal 11.3-15.9 [facility] Comment on above: Performed By: #### 7 [id number], [id number], [id number] ####[facility] (DEFAULT)[address] [place] [address] Man Diff? Auto Invalid Interpretation Code [facility] Comment on above: Performed By: #### 7 [id number], [id number], [id number] ####[facility] (DEFAULT)[address] [place] [address] MCH (RBC) [Entitic mass] 32 pg Normal 24-34 [facility] Comment on above: Performed By: #### 7 [id number], [id number], [id number] ####[facility] (DEFAULT)[address] [place] [address] MCHC (RBC) [Mass/Vol] 33 g/dL Normal 26-37 [facility] Comment on above: Performed By: #### 7 [id number], [id number], [id number] ####[facility] (DEFAULT)[address] [place] [address] MCV (RBC) [Entitic vol] 97 fL Normal 81-100 [facility] Comment on above: Performed By: #### 7 [id number], [id number], [id number] ####[facility] (DEFAULT)[address] [place] [address] Platelet 336 x10 Normal 138-427 [facility] Comment on above: Performed By: #### 7 624660, [id number], [id number] ####[facility] (DEFAULT)[address] [place] [address] Platelet mean volume (Bld) [Entitic vol] 7.2 fL Normal 6.3-10.2 [facility] Comment on above: Performed By: #### 7 [id number], [id number], [id number] ####[facility] (DEFAULT)[address] [place] [address] RBC 3.77 x10 Normal 3.70-5.30 [facility] Comment on above: Performed By: #### 7 [id number], [id number], [id number] ####[facility] (DEFAULT)[address] [place] [address] WBC 6.7 x10 Normal 3.5-10.5 [facility] Comment on above: Performed By: #### 7 058135, [id number], [id number] ####[facility] (DEFAULT)[address] [place] [address] UA w Culture if Ind Standard on 06-29-2022 Breakpoint UA Normal [facility] Comment on above: Performed By: #### 1 [id number] #### [facility] (DEFAULT) [address] [place] [address] Color (U) Yellow [facility] Comment on above: Performed By: #### 1 [id number] #### [facility] (DEFAULT) [address] [place] [address] Culture? Not Indicated Invalid Interpretation Code [facility] Comment on above: Result Comment: Resu lt created by rule GL_MAGR_[id number] Performed By: #### 1 [id number] #### [facility] (DEFAULT) [address] [place] [address] Glucose (U) [Mass/Vol] Negative [facility] Comment on above: Performed By: #### 1 [id number] #### [facility] (DEFAULT) [address] [place] [address] 14547 Ketones Ql (U) Negative [facility] Comment on above: Performed By: #### 1 [id number] #### [facility] (DEFAULT) [address] [place] [address] 79759 Micro? Not Indicated Invalid Interpretation Code [facility] Comment on above: Result Comment: Resu lt created by rule GL_MAGR_ADD_UA_MICRO Performed By: #### 1 [id number] #### [facility] (DEFAULT) [address] [place] [address] 69819 UA Bilirubin Negative [facility] Comment on above: Performed By: #### 1 [id number] #### [facility] (DEFAULT) [address] [place] [address] 73057 UA Blood Negative Normal NEGATIVE [facility] Comment on above: Performed By: #### 1 [id number] #### [facility] (DEFAULT) [address] [place] [address] UA Clarity CLEAR Normal CLEAR [facility] Comment on above: Performed By: #### 1 [id number] #### [facility] (DEFAULT) [address] [place] [address] 68406 UA Leuk Est Negative Normal NEGATIVE [facility] Comment on above: Performed By: #### 1 [id number] #### [facility] (DEFAULT) [address] [place] [address] 35861 UA Nitrite Negative Normal NEGATIVE [facility] Comment on above: Performed By: #### 1 [id number] #### [facility] (DEFAULT) [address] [place] [address] 11567 UA pH 6.5 Normal 5-8 [facility] Comment on above: Performed By: #### 1 [id number] #### [facility] (DEFAULT) [address] [place] [address] UA Protein Negative Normal NEGATIVE [facility] Comment on above: Performed By: #### 1 [id number] #### [facility] (DEFAULT) [address] [place] [address] 30713 UA Spec Grav 1.010 Normal 1.001-1.[address] [place] [address] Comment on above: Performed By: #### 1 [id number] #### [facility] (DEFAULT) [address] [place] [address] 56429 UA Urobilinogen 0.2 mg/dL Normal 0.2-1.0 [facility] Comment on above: Performed By: #### 1 [id number] #### [facility] (DEFAULT) [address] [place] [address] 34126 Urine Source Clean Catch Normal [facility] Comment on above: Performed By: #### 1 [id number] #### [facility] (DEFAULT) [address] [place] [address] 31400 MRI Shoulder w/o Lefton 04-15 MRI Shoulder [...] Adams on 05/11/2022 1041 Normal [facility] SCREENING MAMMOGRAM W/ARABELLA, BILATERAL*on 11-20-2021 SCREENING MAMMOGRAM [...] VERY IMPORTANT TO YOUR HEALTH. THE CURRENT CITIZEN OF [place] [employer] GUIDELINES RECOMMENDS ANNUAL MAMMOGRAPHY BEGINNING AT AGE 39 THIS FACILITY USES A REMINDER SYSTEM TO ENSURE ALL PATIENTS RECEIVE REMINDER NOTIFICATIONS AT THE APPROPRIATE TIME BASED ON THE RECOMMENDATIONS OF THIS EXAM. Report reported and signed by Alejandro Forte on 11/20/2021 0949 Normal [facility] Comprehensive Metabolic Pane [facility] 06-10-2021 Albumin [Mass/Vol] 4.2 g/dL Normal 3.6-5.1 Madyson goldman [facility] Comment on above: Performed By: #### C JEWELS, LIPTeresa #### [facility] [address] [place], [place] [id number] Albumin/Globulin [Mass ratio] 1.7 {ratio} Normal 1.0-2.5 [facility] Comment on above: Performed By: #### C JEWELS LIPD #### [facility] [address], [place] [id number] ALP [Catalytic activity/Vol] 82 U/L Normal 35-119 [facility] Comment on above: Performed By: #### C MP, LIPD #### [facility] [address], [place] [id number] ALT [Catalytic activity/Vol] 15 U/L Normal 6-33 [facility] Comment on above: Result Comment: 02/11 Female reference range changed. Performed By: #### C JEWELS LIPD #### [facility] [address], [place] [id number] Anion gap [Moles/Vol] 15 mmol/L Normal 12-20 [facility] Comment on above: Result Comment: Effe ctive 03/19/2019 reference range changed. Performed By: #### C JEWELS LIPD #### [facility] [address], [place] [id number] AST [Catalytic activity/Vol] 21 U/L Normal 9-34 [facility] Comment on above: Performed By: #### C JEWELS LIPD #### [facility] [address] [place], [place] [id number] BUN/CREA 28 Ratio High 6-22 [facility] Comment on above: Performed By: #### C JEWELS LIPD #### [facility] [address], [place] [id number] Calcium [Mass/Vol] 9.3 mg/dL Normal 8.6-10.2 [facility] Comment on above: Performed By: #### C MP LIPD #### [facility] [address] [facility] [place] [id number] Chloride [Moles/Vol] 106 mmol/L Normal 98-107 [facility] Comment on above: Performed By: #### C MP, LIPD #### [facility] [address] [place], [place] [id number] CO2 [Moles/Vol] 24 mmol/L Normal 20-31 [facility] [place] [facility] Comment on above: Performed By: #### C JEWELS, LIPD #### [facility] [address] [place], [place] [id number] Creatinine [Mass/Vol] 1.1 mg/dL Normal 0.6-1.4 [facility] Comment on above: Performed By: #### C JEWELS, LIPD #### [facility] [address] [place], [place] [id number] eGFRAA 58 mL/min/1.73m2 Low >60 [facility] Comment on above: Performed By: #### C JEWELS, LIPD #### [facility] [address] [facility] [id number] eGFRNAA 48 mL/min/1.73m2 Low >60 [facility] Comment on above: Performed By: #### C JEWELS, LIPD #### [facility] [address] [place], [place] [id number] Globulin (S) [Mass/Vol] 2.5 g/dL Normal 1.9-3.7 [facility] Comment on above: Performed By: #### C JEWELS, LIPD #### [facility] [address] [place], [place] [id number] Glucose [Mass/Vol] 94 mg/dL Normal 65-99 [facility] Comment on above: Result Comment: For FASTING Glucose --- ADA reference ranges: Normal 65-99 mg/dl Prediabetes 100-125 Diabetes >/= 126 Performed By: #### C JEWELS, LIPD #### [facility] [address] [place], [place] [id number] Potassium [Moles/Vol] 4.4 mmol/L Normal 3.5-5.5 [facility] Comment on above: Performed By: #### C JEWELS, LIPD #### [facility] [address] [facility] [place] [id number] Protein [Mass/Vol] 6.7 g/dL Normal 6.1-8.1 [facility] Comment on above: Performed By: #### C JEWELS, LIPD #### [facility] [address] [facility] [id number] Sodium [Moles/Vol] 141 mmol/L Normal 135-146 [facility] Comment on above: Performed By: #### C MP, LIPD #### [facility] [address] [place], [place] [id number] TBIL <0.3 Normal [facility] Comment on above: Performed By: #### C MP, LIPD #### [facility] [address] [place], [place] [id number] Urea nitrogen [Mass/Vol] 32 mg/dL High 7-25 [facility] Comment on above: Performed By: #### C MP, LIPD #### [facility] [address] [place], [place] [id number] Lipid Panelon 06-10-2021 Cholesterol [Mass/Vol] 237 mg/dL High 125-200 [facility] Comment on above: Result Comment: Low risk < 200mg/dL Borderline risk 201-239 mg/dl High risk > or equal to 240 Performed By: #### C JEWELS, LIPD #### [facility] [address] [place], [place] [id number] Cholesterol in HDL [Mass/Vol] 100 mg/dL Normal >40 [facility] Comment on above: Result Comment: High Cardiovascular Risk HDL <40 mg/dL Low Cardiovascular Risk HDL > or equal to 60 mg/dl Performed By: #### C MP, LIPD #### [facility] [address] [place], [place] [id number] Cholesterol in LDL [Mass/Vol] 124 mg/dL Normal [facility] Comment on above: Result Comment: LDL ATP III CLASSIFICATION LDL less than 100 mg/dl Optimal LDL 100-129 mg/dl Near or above optimal LDL 130-159 Borderline high LDL 160-189 High LDL greater than 189 mg/dl Very High Performed By: #### C MP, LIPD #### [facility] [address] [place], [place] [id number] Cholesterol in VLDL [Mass/Vol] 13 mg/dL Normal [facility] Comment on above: Performed By: #### C MP, LIPD #### [facility] [address] [place], [place] [id number] Cholesterol.total/Ch olesterol in HDL [Mass ratio] 2 {ratio} Normal [facility] Comment on above: Performed By: #### C MP, LIPD #### [facility] [address] [place], [place] [id number] Triglyceride [Mass/Vol] 67 mg/dL Normal 30-150 [facility] Comment on above: Result Comment: TRIG ATPIII CLASSIFICATIONS TRIG less than 150 mg/dl Normal TRIG 150-199 mg/dl Borderline High TRIG 200-500 mg/dl High TRIG greather than 500 mg/dl Very High Performed By: #### C MP, LIPD #### [facility] [address] [place], [place] [id number] ECHOCARDIO M/2D COMPLETEon 0 10-24-2020 ECHOCARDIO M/2D COMPLETE Patient: RADHA CUADRA Exam Date: 10/24/2020 : 1945 Gender:F Ordering : DR SHARI MCKEON M.D. Admission #: [id number] Family : Order #: [id number] CLICK HERE TO VIEW EXAM ECHOCARDIOGRAM REPORT [...] Area(A4C): 13.90 cm2 Left Atrium Systolic Volume(A2C): 23531 mm3 Left Atrium Systolic Volume(A4C): 61771 mm3 Mitral Valve MV E to A Ratio: 1.10 Mitral Valve A-Wave Peak Velocity: 68.60 cm/s Mitral Valve E-Wave Peak Velocity: 74.50 cm/s Deceleration Time: 259 ms Right Ventricle Aorta AO Root Diam: 2.60 cm Aortic Valve Peak Velocity (Antegrade Flow): 161.00 cm/s, 230.00 cm/s AoV Area (Peak Daniel): 1.93 cm2 AoV Area (VTI): 1.90 cm2 Deceleration [place]: 1880 mm/s2 Pressure Half-Time: 528 ms Peak [...] M.D. on 10/24/2020 at 19:[address] [facility] HEMOGLOBINon 09-30-2020 Hemoglobin (Bld) [Mass/Vol] 12.3 g/dL Normal 12.0-16.[address] [facility] Comment on above: Performed By: #### H GB #### [facility] [address] [address] Geraldo Gaitan H PYLORI TISSUEon 02-01-2020 H PYL TISSUE, UREASE Negative Normal NEGATIVE [facility] Comment on above: Performed By: #### H GB #### [facility] [address] [id number] Geraldo Gaitan COVID-19 PCRon 01-27-2020 SARS-CoV-2 (COVID-19) RNA VIVIENNE+probe Ql (Unsp spec) Not detected Normal Not Detected [facility] Comment on above: Result Comment: This nucleic acid amplification test was developed and its performance characteristics determined by [employer]. Nucleic acid amplification tests include PCR and [...] Performed By: #### C VDSTAT, CVDPCR #### [facility] [address] [id number] Geraldo Gaitan PRIORITY COVID PROCESSINGon 01-27-[address] Comment [address] [facility] Comment on above: Result Comment: Rece ived Performed By: #### C VDSTAT, CVDPCR #### [facility] [address] [place], [place] [id number] Geraldo Gaitan CULTURE BLOODon 01-08-2020 Microscopic examination [...] F Trimethoprim/Sulfamethoxazol e <=20 S F Normal [facility] Comment on above: Performed By: #### H GB #### [facility] [address] [place] [address] Geraldo Gaitan BLOOD CULTURE ID PANELon A. baumannii Not detected Normal [facility] Comment on above: Performed By: #### B MIRYAM #### [facility] [address] [place] [address] Geraldo Gaitan BCID CONTROLS PASSED Normal [facility] Comment on above: Performed By: #### B MIRYAM #### [facility] [address] [place] [address] Geraldo Gaitan BCIDBTHD BLOOD CULTURE BOTTLE INFORMATION Normal [facility] Comment on above: Performed By: #### B MIRYAM #### [facility] [address] [place] [address] Geraldo Gaitan BCIDHD1 ANTIMICROBIAL RESIST ANCE GENES Normal [facility] Comment on above: Performed By: #### B MIRYAM #### [facility] [address] [place] [address] Geraldo Gaitan BCIDHD2 SEE BELOW [facility] Comment on above: Result Comment: KPC- carbapenem resistance gene, mecA- methecillin resistance gene, van A/B- vancomycin resistance gene Note: Antimicrobial resitance can occur via multiple mechanisms. A Not Detected result for the [employer] antomicrobial resistance gene assays does not indicate antimicrobial susceptibility. Subculturing is required for specis identificationand susceptibility testing of isolates. Performed By: #### B MIRYAM #### [facility] [address] [place] [address] Geraldo Kandy BCIDHD3 Positive Normal [facility] Comment on above: Performed By: #### B MIRYAM #### [facility] [address] [place] [address] Geraldo Kandy BCIDHD3 Negative Normal [facility] Comment on above: Performed By: #### B MIRYAM #### [facility] [address] [place] [address] Geraldo Kandy BCIDHD5 YEAST Normal [facility] Comment on above: Performed By: #### B MIRYAM #### [facility] [address] [place] [address] Geraldo Kandy BCIDHD6 SEE BELOW [facility] Comment on above: Result Comment: Note : All genus and species BCID [employer] results will be verified post subculturing via Maldi-Tof MS testing methodology. Performed By: #### B MIRYAM #### [facility] [address] [place] [address] Geraldo Kandy Bottle Set: Set 2 Normal [facility] Comment on above: Performed By: #### B MIRYAM #### [facility] [address] [place] [address] Geraldo Kandy Bottle: Aerobic Normal [facility] Comment on above: Performed By: #### B MIRYAM #### [facility] [address] [place] [address] Geraldo Kandy Naomi albicans Not detected Normal [facility] Comment on above: Performed By: #### B MIRYAM #### [facility] [address] [place] [address] Geraldo Kandy Naomi glabrata Not detected Normal [facility] Comment on above: Performed By: #### B MIRYAM #### [facility] [address] [place] [address] Geraldo Kandy Naomi Krusei Not detected Normal [facility] Comment on above: Performed By: #### B MIRYAM #### [facility] [address] [place] [address] Geraldo Kandy Naomi Parapsilosis Not detected Normal [facility] Comment on above: Performed By: #### B MIRYAM #### [facility] [address] [address] Geraldo Kandy Naomi Tropicalis Not detected Normal [facility] Comment on above: Performed By: #### B MIRYAM #### [facility] [address] [address] Geraldo Kandy E. Cloacae complex Not detected Normal [facility] Comment on above: Performed By: #### B MIRYAM #### [facility] [address] [address] Geraldo Kandy Enterobacteriaceae Detected Invalid Interpretation Code [facility] Comment on above: Performed By: #### B MIRYAM #### [facility] [address] [place] [address] Geraldo Kandy Enterococcus Not detected Normal [facility] Comment on above: Performed By: #### B MIRYAM #### [facility] [address] [address] Geraldo Kandy Escheria coli Detected Normal [facility] Comment on above: Performed By: #### B MIRYAM #### [facility] [address] [place] [address] Geraldo Kandy K. oxytoca Not detected Normal [facility] Comment on above: Performed By: #### B MIRYAM #### [facility] [address] [place] [address] Geraldo Kandy K. pneumoniae Not detected Normal [facility] Comment on above: Performed By: #### B MIRYAM #### [facility] [address] [place] [address] Geraldo Kandy KPC Resistant Gene Not detected Normal [facility] Comment on above: Performed By: #### B MIRYAM #### [facility] [address] [place] [address] Geraldo Kandy List. monocytogenes Not detected Normal [facility] Comment on above: Performed By: #### B MIRYAM #### [facility] [address] [place] [address] Geraldo Kandy mecA Resistant Gene Not detected Normal [facility] Comment on above: Performed By: #### B MIRYAM #### [facility] [address] [address] Geraldo Kandy Proteus Not detected Normal [facility] Comment on above: Performed By: #### B MIRYAM #### [facility] [address] [address] Geraldo Kandy Pseud. aeruginosa Not detected Normal [facility] Comment on above: Performed By: #### B MIRYAM #### [facility] [address] [place] [address] Geraldo Kandy Seratia marcescens Not detected Normal [facility] Comment on above: Performed By: #### B MIRYAM #### [facility] [address] [place] [address] Geraldobhumi Gaitan Site: R AC Normal [facility] Comment on above: Performed By: #### B MIRYAM #### [facility] [address] [place] [address] Geraldobhumi Gaitan Staph. aureus Not detected Normal [facility] Comment on above: Performed By: #### B MIRYAM #### [facility] [address] [place] [address] Geraldo Kandy Staphylococcus Not detected Normal [facility] Comment on above: Performed By: #### B MIRYAM #### [facility] [address] [place] [address] Geraldo Kandy Strep. agalactiae Not detected Normal [facility] Comment on above: Performed By: #### B MIRYAM #### [facility] [address] [place] [address] Geraldo Kandy Strep. pneumoniae Not detected Normal [facility] Comment on above: Performed By: #### B MIRYAM #### [facility] [address] [place] [address] Geraldo Kandy Strep. pyogenes Not detected Normal [facility] Comment on above: Performed By: #### B MIRYAM #### [facility] [address] [place] [address] Geraldo Kandy Streptococcus Not detected Normal [facility] Comment on above: Performed By: #### B MIRYAM #### [facility] [address] [place], [place] [address] Geraldo Gaitan Aicha/B Resist. Gene Not detected Normal [facility] Comment on above: Performed By: #### B MIRYAM #### [facility] [address] [place], [place] [address] Geraldobhumi Gaitan CBC AUTO DIFFon 01-02-2020 BASO # 0.0 103/ul Normal 0.0-0.[address] [facility] Comment on above: Performed By: #### C BC #### [facility] [address] [place], [place] [address] Geraldobhumi Gaitan Basophils/100 WBC (Bld) 0.3 % Normal 0.2-2.[address] [facility] Comment on above: Performed By: #### C BC #### [facility] [address] [place] [address] Geraldobhumi Charlesen EO # 0.0 103/ul Normal 0.0-0.[address] [facility] Comment on above: Performed By: #### C BC #### [facility] [address] [place] [address] Geraldo Gaitan Eosinophils/100 WBC (Bld) 0.3 % Critically low 0.9-7.[address] [facility] Comment on above: Performed By: #### C BC #### [facility] [address] [place] [address] Geraldobhumi Gaitan Erythrocyte distribution width (RBC) [Ratio] 12.6 % Normal 11.0-15.[address] [facility] Comment on above: Performed By: #### C BC #### [facility] [address] [place] [address] Geraldobhumi Gaitan Hematocrit (Bld) [Volume fraction] 42.7 % Normal 36.0-48.[address] [facility] Comment on above: Performed By: #### C BC #### [facility] [address] [place], [place] [address] Geraldo Kandy Hemoglobin (Bld) [Mass/Vol] 13.6 g/dL Normal 12.0-16.[address] [facility] Comment on above: Performed By: #### C BC #### [facility] [address] [place] [address] Geraldobhumi Gaitan IG # 0.04 10e3/ul Critically high 0.00-0.03 [facility] Comment on above: Performed By: #### C BC #### [facility] [address] [place] [address] Geraldobhumi Gaitan IG % 0.3 % Normal 0.0-0.5 [facility] Comment on above: Performed By: #### C BC #### [facility] [address] [place] [address] Geraldo Kandy LYMPH # 0.5 103/ul Critically low 1.2-3.[address] [facility] Comment on above: Performed By: #### C BC #### [facility] [address] [place] [address] Geraldobhumi Gaitan Lymphocytes/100 WBC (Bld) 4.4 % Critically low 20.5-60.0 [facility] Comment on above: Performed By: #### C BC #### [facility] [address] [place] [address] Geraldo Gaitan MANUAL DIFF REQ NO Normal [facility] Comment on above: Performed By: #### C BC #### [facility] [address] [place] [address] Geraldobhumi Gaitan MCH (RBC) [Entitic mass] 30.6 pg Normal 26.7-34.0 [facility] Comment on above: Performed By: #### C BC #### [facility] [address] [place] [address] Geraldobhumi Gaitan MCHC (RBC) [Mass/Vol] 31.9 g/dL Normal 29.9-35.[address] [facility] Comment on above: Performed By: #### C BC #### [facility] [address] [place] [address] Geraldo Kandy MCV (RBC) [Entitic vol] 96.0 fL Normal 81.0-99.0 [facility] Comment on above: Performed By: #### C BC #### [facility] [address] [place] [address] Geraldo Kandy MONO # 0.8 103/ul Normal 0.3-0.8 [facility] Comment on above: Performed By: #### C BC #### [facility] [address] [place], [place] [address] Geraldo Gaitan Monocytes/100 WBC (Bld) 6.5 % Normal 1.7-12.0 [facility] Comment on above: Performed By: #### C BC #### [facility] [address] [place], [place] [address] Geraldo Gaitan NEUT # 10.1 103/ul Critically high 1.4-6.5 [facility] Comment on above: Performed By: #### C BC #### [facility] [facility] [address] [place] [address] Geraldo Gaitan Neutrophils/100 WBC (Bld) 88.2 % Critically high 43.0-75.0 [facility] Comment on above: Performed By: #### C BC #### [facility] [address] [place], [place] [id number] Geraldo Gaitan Platelet mean volume (Bld) [Entitic vol] 9.8 fL Normal 9.5-13.5 [facility] Comment on above: Performed By: #### C BC #### [facility] [address] [place], [place] [id number] Geraldo Gaitan PLT 254 103/ul Normal 150-[address] [facility] Comment on above: Performed By: #### C BC #### [facility] [address] [place], [place] [address] Geraldo Charlesen RBC 4.45 106/ul Normal 4.20-5.40 [facility] Comment on above: Performed By: #### C BC #### [facility] [address] [place], [place] [address] Geraldobhumi Gaitan CT HEAD WO CONon 01-02-2020 [...] REMY NESS Date: 2020-01-02 19:[address] [facility] CULTURE BLOODon 01-02-2020 Microscopic examination of blood, culture Culture Observations: No growth at [address] [facility] Comment on above: Performed By: #### H SAKINA #### [facility] [address] [place] [address] Geraldo Kandy CULTURE URINEon 01-02-2020 CULTURE URINE Culture Observations : Light growth of mixed genital eliezer.No potential pathogens seen. Normal [facility] Comment on above: Performed By: #### Jonatan PRESLEY #### [facility] [address] [place] [address] Geraldo Kandy ER URINE PROFILEon 0 Bilirubin Ql (U) Negative Normal NEGATIVE [facility] Comment on above: Performed By: #### MELODY CORDOVA #### [facility] [address] [place] [address] Geraldo Kandy Clarity (U) SL CLOUDY Normal [facility] Comment on above: Performed By: #### MELODY CORDOVA #### [facility] [address] [place] [address] Geraldo Kandy Color (U) LT. YELLOW Normal YELLOW [facility] Comment on above: Performed By: #### MELODY CORDOVA #### [facility] [address] [place] [address] Geraldo Kandy ERUAHD A micrscopic examina tion will be performed if indicated. Normal The [facility] Comment on above: Performed By: #### MELODY CORDOVA #### [facility] [address] [place] [address] Geraldo Kandy Glucose Ql (U) Negative Normal NEGATIVE [facility] Comment on above: Performed By: #### MELODY CORDOVA #### [facility] [address] [place] [address] Geraldo Kandy Hemoglobin Ql (U) SMALL Normal NEGATIVE [facility] Comment on above: Performed By: #### MELODY CORDOVA #### [facility] [address] [place] [address] Geraldo Kandy Ketones Ql (U) Negative Normal NEGATIVE [facility] Comment on above: Performed By: #### MELODY CORDOVA #### [facility] [address] [place] [address] Geradlo Kandy LEUKOCYTES TRACE Normal NEGATIVE [facility] Comment on above: Performed By: #### MELODY CORDOVA #### [facility] [address] [place] [address] Geraldo Kandy Nitrite Ql (U) Negative Normal NEGATIVE [facility] Comment on above: Performed By: #### MELODY CORDOVA #### [facility] [address] [place] [address] Geraldo Kandy pH (U) 7.0 [pH] Normal 5-[address] [facility] Comment on above: Performed By: #### MELODY CORDOVA #### [facility] [address] [place] [address] Geraldo Kandy Protein Ql (U) 30 mg/dl Normal [facility] Comment on above: Performed By: #### MELODY CORDOVA #### [facility] [address] [place] [address] Geraldo Kandy SPEC GRAVITY 1.015 Normal 1.005-<=1. [address] [facility] Comment on above: Performed By: #### MELODY CORDOVA #### [facility] [address] [place] [address] Geraldo Kadny UR MICRO IND INDICATED Normal [facility] Comment on above: Performed By: #### MELODY CORDOVA #### [facility] [address] [place] [address] Geraldo Gaitan Urobilinogen Qn (U) 0.2 {Eileen'U}/dL Normal [facility] Comment on above: Performed By: #### E MELODY SHAH #### [facility] [address] [place] [address] Geraldobhumi Gaitan LACTATE/LACTIC ACIDon 2019 Lactate [Moles/Vol] 1.1 mmol/L Normal 0.7-2.0 [facility] Comment on above: Performed By: #### H GB #### [facility] [address] [place] [address] Geraldobhumi Gaitan PROCALCITONINon 01-02-2020 PCT header 1 SEE BELOW Normal [facility] Comment on above: Result Comment: PCT <0.5ng/mL: Systemic infection (sepsis) is not likely, local bacterial infection possible, low risk for progression to severe systemic infection (severe sepsis) Performed By: #### P RL #### [facility] [address] [place] [address] Geraldo Kandy PCT header 2 SEE BELOW Normal [facility] Comment on above: Result Comment: PCT >/=0.5 and <2 ng/mL: Systemic infection (sepsis) is possible, moderate risk for progression to severe systemic infection (severe sepsis) Performed By: #### P RL #### [facility] [address] [place] [address] Geraldo Kandy PCT header 3 SEE BELOW Normal [facility] Comment on above: Result Comment: PCT >/=2.0 and <10 ng/mL: Systemic infection (sepsis) is likely, unless other causes are known, high risk for progession to severe systemic infection(severe sepsis) Performed By: #### P RL #### [facility] [address] [place] [address] Geraldo Kandy PCT header 4 SEE BELOW Normal [facility] Comment on above: Result Comment: PCT >/= 10 ng/mL: Important systemic inflammatory response almost exclusively due to severe bacterial sepsis or septic shock, high likelihood of severe sepsis or septic shock Performed By: #### P RL #### [facility] [address] [place] [address] Geraldobhumi Gaitan PROCALCITONIN 0.62 ng/mL Critically high 0.00-0.50 [facility] Comment on above: Performed By: #### P RL #### [facility] [address] [id number] Geraldo Charlesen PROF 14(COMP METB)on 020 Albumin [Mass/Vol] 3.6 g/dL Normal 3.5-5.[address] [facility] Comment on above: Performed By: #### C MP #### [facility] [address] [id number] Geraldo Kandy Albumin/Globulin [Mass ratio] 0.8 {ratio} Normal [facility] Comment on above: Performed By: #### C MP #### [facility] [address] [place] [address] Geraldo Kandy ALP [Catalytic activity/Vol] 95 U/L Normal 38-[address] [facility] Comment on above: Performed By: #### C MP #### [facility] [address] [place] [address] Geraldo Kandy ALT [Catalytic activity/Vol] 32 U/L Normal 9-[address] [facility] Comment on above: Performed By: #### C MP #### [facility] [address] [place], [place] [id number] Geraldo Kandy Anion gap [Moles/Vol] 13.8 mmol/L Normal [facility] Comment on above: Performed By: #### C MP #### [facility] [address] [id number] Geraldo Kandy AST [Catalytic activity/Vol] 42 U/L Critically high 14-[address] [facility] Comment on above: Performed By: #### C MP #### [facility] [address] [place], [place] [address] Geraldo Kandy Bilirubin [Mass/Vol] 0.5 mg/dL Normal 0.2-1.[address] [facility] Comment on above: Performed By: #### C MP #### [facility] [address] [place] [address] Geraldo Kandy Calcium [Mass/Vol] 9.4 mg/dL Normal 8.4-10.2 [facility] Comment on above: Performed By: #### C MP #### [facility] [address] [place] [address] Geraldo Kandy Chloride [Moles/Vol] 100 mmol/L Normal 98-107 [facility] Comment on above: Performed By: #### C MP #### [facility] [address] [place], [place] [address] Geraldo Kandy CO2 [Moles/Vol] 24.6 mmol/L Normal 22.0-30.0 [facility] Comment on above: Performed By: #### C MP #### [facility] [address] [place] [address] Geraldo Kandy Creatinine [Mass/Vol] 1.36 mg/dL Critically high 0.52-1.04 [facility] Comment on above: Performed By: #### C MP #### [facility] [address] [place] [address] Geraldo Kandy EGFR-AF [place]IZ[place] 46 mL/min/1.73m2 Critically low >=60 [facility] Comment on above: Performed By: #### C MP #### [facility] [address] [place] [address] Geraldo Kandy EGFR-NON AF [place]IZEN [place] 38 mL/min/1.73m2 Critically low >=60 [facility] Comment on above: Performed By: #### C MP #### [facility] [address] [place] [address] Geraldo Kandy Globulin (S) [Mass/Vol] 4.5 g/dL Normal [facility] Comment on above: Performed By: #### C MP #### [facility] [address] [place], [place] [address] Geraldo Kandy Glucose [Mass/Vol] 120 mg/dL Critically high 74-106 [facility] Comment on above: Performed By: #### C MP #### [facility] [address] [place] [address] Geraldo Kandy Potassium [Moles/Vol] 3.4 mmol/L Normal 3.4-5.[address] [facility] Comment on above: Performed By: #### C MP #### [facility] [address] [place] [address] Geraldo Kandy Protein [Mass/Vol] 8.1 g/dL Normal 6.1-8.2 [facility] Comment on above: Performed By: #### C MP #### [facility] [address] [place] [address] Geraldo Kandy Sodium [Moles/Vol] 135 mmol/L Critically low 137-[address] [facility] Comment on above: Performed By: #### C MP #### [facility] [address] [place] [address] Geraldo Kandy Urea nitrogen [Mass/Vol] 22.0 mg/dL Critically high 7.0-17.0 [facility] Comment on above: Performed By: #### C MP #### [facility] [address] [place] [address] Geraldo Kandy Urea nitrogen/Creatinine [Mass ratio] 16.2 mg/mg Normal [facility] Comment on above: Performed By: #### C MP #### [facility] [address] [place] [address] Geraldo Kandy RESPIRATORY PANEL PLUSon Adenovirus Not detected Normal NOT DETECTED [facility] Comment on above: Performed By: #### R SPLUS #### [facility] [address] [place] [address] Geraldo Kandy B. Parapertusis Not detected Normal NOT DETECTED [facility] Comment on above: Performed By: #### R SPLUS #### [facility] [address] [place] [address] Geraldo Kandy B. Pertussis Not detected Normal NOT DETECTED [facility] Comment on above: Performed By: #### R SPLUS #### [facility] [address] [place] [address] Geraldo Kandy Chlamydia Pneumoniae Not detected Normal NOT DETECTED [facility] Comment on above: Performed By: #### R SPLUS #### [facility] [address] [place] [address] Geraldo Kandy Coronavirus 229E Not detected Normal NOT DETECTED [facility] Comment on above: Performed By: #### R SPLUS #### [facility] [address] [place] [address] Geraldo Kandy Coronavirus HKU1 Not detected Normal NOT DETECTED [facility] Comment on above: Performed By: #### R SPLUS #### [facility] [address] [place] [address] Geraldo Kandy Coronavirus NL63 Not detected Normal NOT DETECTED [facility] Comment on above: Performed By: #### R SPLUS #### [facility] [address] [place] [address] Geraldo Kandy Coronavirus OC43 Not detected Normal NOT DETECTED [facility] Comment on above: Performed By: #### R SPLUS #### [facility] [address] [place] [address] Geraldo Kandy Influenza A H1 2009 Not detected Normal NOT DETECTED [facility] Comment on above: Performed By: #### R SPLUS #### [facility] [address] [place] [address] Geraldo Kandy Influenza B Not detected Normal NOT DETECTED [facility] Comment on above: Performed By: #### R SPLUS #### [facility] [address] [place] [address] Geraldo Kandy Metapneumovirus Not detected Normal NOT DETECTED [facility] Comment on above: Performed By: #### R SPLUS #### [facility] [address] [place] [address] Geraldo Kandy Mycoplas. Pneumoniae Not detected Normal NOT DETECTED [facility] Comment on above: Performed By: #### R SPLUS #### [facility] [address] [place] [address] Geraldo Kandy Parainfluenza 1 Not detected Normal NOT DETECTED [facility] Comment on above: Performed By: #### R SPLUS #### [facility] [address] [place] [address] Geraldo Kandy Parainfluenza 2 Not detected Normal NOT DETECTED [facility] Comment on above: Performed By: #### R SPLUS #### [facility] [address] [place] [address] Geraldo Kandy Parainfluenza 3 Not detected Normal NOT DETECTED [facility] Comment on above: Performed By: #### R SPLUS #### [facility] [address] [place] [address] Geraldo Kandy Parainfluenza 4 Not detected Normal NOT DETECTED [facility] Comment on above: Performed By: #### R SPLUS #### [facility] [address] [place] [address] Geraldo Kandy Rhino/Enterovirus Not detected Normal NOT DETECTED [facility] Comment on above: Performed By: #### R SPLUS #### [facility] [address] [place] [address] Geraldo Kandy RP2 Header 1 RESPIRATORY PANEL: VIRUSES Normal [facility] Comment on above: Performed By: #### R SPLUS #### [facility] [address] [place] [address] Geraldo Kandy RP2 Header 2 RESPIRATORY PANEL: BACTERIA Normal [facility] Comment on above: Performed By: #### R SPLUS #### [facility] [address] [place] [address] Geraldo Kandy RP2 Header 4 EUA SEE BELOW Normal [facility] Comment on above: Result Comment: This test is not yet approved or cleared by the [place] FDA. When there are no FDA-approved or cleared tests available, and other criteria are met, FDA can make tests available under an emergency access mechanism called an Emergency Use Authorization (EUA). The EUA for this test is supported by the [place] of Health and Human Service?s (HHS?s) declaration [...] used). Performed By: #### R SPLUS #### [facility] [address] [place] [address] Geraldo Kandy RSV Not detected Normal NOT DETECTED [facility] Comment on above: Performed By: #### R SPLUS #### [facility] [address] [place] [address] Geraldo Gaitan SARS-CoV-2 (COVID-19) RNA VIVIENNE+probe Ql (Unsp spec) Not detected Normal NOT DETECTED [facility] Comment on above: Performed By: #### R SPLUS #### [facility] [address] [place] [address] Geraldo Gaitan URINE MICROSCOPIC ONLYon BACTERIA MODERATE Normal NONE SEEN [facility] Comment on above: Performed By: #### Luis SHAH UMUJSTYNARO #### [facility] [address] [place] [address] Geraldo Gaitan Bacteria identified Cx Nom (U) INDICATED Normal [facility] Comment on above: Performed By: #### Luis SHAH UMICRO #### [facility] [address] [place] [address] Geraldo Kandy CAST NONE SEEN Normal NONE SEEN [facility] Comment on above: Performed By: #### Luis SHAH UMICRO #### [facility] [address] [place] [address] Geraldobhumi Gaitan Crystals LM Nom (Urine sed) NONE SEEN Normal NONE SEEN [facility] Comment on above: Performed By: #### Luis SHAH UMICRO #### [facility] [address] [place] [address] Geraldo Gaitan Epithelial cells LM Ql (Urine sed) RARE Normal [facility] Comment on above: Performed By: #### Luis SHAH UMICRO #### [facility] [address] [place] [address] Geraldo Kandy MUCOUS NONE SEEN Normal NONE SEEN [facility] Comment on above: Performed By: #### KANDICE CORDOVARO #### [facility] [address] [place] [address] Geraldo Kandy RBC 0-2 Normal 0-[address] [facility] Comment on above: Performed By: #### KANDICE CORDOVARO #### [facility] [address] [place], [place] [address] Geraldo Gaitan WBC 5-10 Normal NONE SEEN [facility] Comment on above: Performed By: #### E MELODY SHAH #### [facility] [address] [place], [place] [address] Geraldo Gaitan XR CHEST 1 Von 01-02-2020 [...] REMY NESS Date: 2020-01-02 18:[address] [facility] Vital Signs Date Time Vital Sign Value Performing Clinician Faci lity 05-09-2024 10:42-0500 Diastolic blood pressure 70 mm[Hg] China Ortiz [employer] RE[employer] Work Phone: [facility] 05-09-2024 10:42-0500 Systolic blood pressure 120 mm[Hg] China Ortiz [employer] REPAIRER Work Phone: [facility] 05-09-2024 10:34-0500 Body height 149.9 cm China Ortiz [employer] REPAIRER Work Phone: [facility] 05-09-2024 10:34-0500 Body mass index (BMI) [Ratio] 20.28 kg/m2 China Ortiz [employer] REPA[employer] Work Phone: [facility] 05-09-2024 10:34-0500 Body temperature 99.3 [degF] China Ortiz [employer] REPAIR[employer] Work Phone: [facility] 05-09-2024 10:34-0500 Body weight 45.54 kg China Ortiz [employer] REPAIRER Work Phone: [facility] 05-09-2024 10:34-0500 Heart rate 86 /min China Ortiz [employer] REPAIRER Work Phone: [facility] 05-09-2024 10:34-0500 SaO2% (BldA) [Mass fraction] 96 % China Ortiz [employer] REPAIRER Work Phone: [facility] 01-24-2024 13:050 Body height 149.9 cm Roger Vasquez DPM Work Phone: [facility] 01-24-2024 13:04-0500 Body mass index (BMI) [Ratio] 20.2 kg/m2 Roger Vasquez DPM Work Phone: [facility] 01-24-2024 13:050 Body weight 45.36 kg Roger Vasquez DPM Work Phone: [facility] Healthcare Encounters Encounter Date Encounter Type Care Provider Facility Start: 05-09-2024 End: 05-09-2024 Bamboo flowsheet China Hopsonjohnnie [employer] REPAIRER Work Phone: [facility] Start: 05-09-2024 End: 05-09-2024 Bamboo flowsheet China Hopsonjohnnie [employer] REPAIRER Work Phone: [facility] Start: 05-09-2024 End: 05-09-2024 Office outpatient visit 15 minutes China Diana [employer] RE[employer]IR[employer] Work Phone: [facility] Comment on above: Chronic obstructive pulmonary disease with acute exacerbation (CMS/HCC) (Primary Dx) Start: 05-09-2024 End: 05-09-2024 ambulatory CHINA HOPSONValentineCAITE Not Available Start: 04-23-2024 End: 04-24-2024 Telephone encounter Shari Mckeon MD Work Phone: [facility] Start: 04-05-2024 End: 04-05-2024 Refill Shari Mckeon MD Work Phone: [facility] Comment on above: Mild intermittent as thma, unspecified whether complicated (CMS/HCC) Start: 02-20-2024 End: 02-20-2024 ambulatory Kei Espana MD Facility:[facility] Start: 02-07-2024 End: 02-07-2024 Refill Shari Mckeon MD Work Phone: [facility] Comment on above: Mild intermittent as thma, unspecified whether complicated (CMS/HCC) Start: 02-06-2024 End: 02-06-2024 ambulatory Kei Espana MD Facility:[facility] Start: 01-24-2024 End: 01-24-2024 Bamboo flowsheet Roger Vasquez DPM Work Phone: [facility] Start: 01-24-2024 End: 01-24-2024 Bamboo flowsheet Roger Vasquez DPM Work Phone: [facility] Start: 01-24-2024 End: 01-24-2024 Office outpatient visit 15 minutes Roger Vasquez DPM Work Phone: [facility] Comment on above: Dermatophytosis of n ail (Primary Dx); Dystrophic nail; Onychocryptosis; Pain of left great toe Start: 01-24-2024 End: 01-24-2024 ambulatory ROGER VASQUEZ Not Available Start: 01-23-2024 End: 01-23-2024 ambulatory Kei Espana MD Facility:[facility] Start: 01-09-2024 End: 01-09-2024 ambulatory Kei Espana MD Facility:[facility] Start: 12-28-2023 End: 12-28-2023 ambulatory SHARI [...] 12-12-2023 End: 12-12-2023 ambulatory Kei Espana MD Facility:[facility] Start: 12-09-2023 End: 12-09-2023 Refill Shari Mckeon MD Work Phone: [facility] Comment on above: Mild intermittent as thma, unspecified whether complicated ([facility] Start: 11-28-2023 End: 11-28-2023 ambulatory Kei Espana MD Facility:[facility] Start: 11-17-2023 End: 11-17-2023 Refill Shari Mckeon MD Work Phone: [facility] Comment on above: Essential hypertensi on ([facility]) Start: 10-04-2023 End: 10-04-2023 ambulatory ALEXANDER A ALBINA [facility] Start: 09-19-2023 End: 09-19-2023 ambulatory ALEXANDER A HANYLABURG Not Available Start: 09-19-2023 End: 09-19-2023 ambulatory ALEXANDER A HANYLABURG Not Available Start: 09-05-2023 End: 09-05-2023 ambulatory Kei Espana MD Facility:[facility] Start: 08-22-2023 End: 08-22-2023 ambulatory Kei Espana MD Facility:[facility] Start: 07-25-2023 End: 07-25-2023 ambulatory Kei Espana MD Facility:[facility] Start: 07-11-2023 End: 07-11-2023 ambulatory Kei Espana MD Facility:[facility] Start: 06-17-2023 End: 06-17-2023 ambulatory ALEXANDER A HACKENBURG Not Available Start: 04-27-2023 Telephone encounter Ede sierra DO Work Phone: [facility] 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 Start: 04-21-2023 Refill Alexander Aparicio HANDTOOLS REPAIRER Work Phone: [facility] Comment on above: Essential hypertensi on ([facility]) Start: 07-26-2022 End: 07-26-2022 ambulatory SHARI MCKEON Facility:[facility] Start: 06-29-2022 End: 06-30-2022 ambulatory SHARI MCKEON Facility:[facility] Start: 10-24-2020 End: 10-25-[address] SHARI MCKEON Facility:[facility] Start: 09-30-2020 End: 10-01-[address] SHARI MCKEON Facility:[facility] Start: 02-01-2020 End: 02-01-[address] CARLOS EDUARDO MENENDEZ Facility:[facility] Start: 01-30-2020 Encounter for preprocedural laboratory examination DR CARLOS EDUARDO MENENDEZ [facility] Start: 01-26-2020 End: 01-27-[address] SHARI MCKEON Facility:[facility] Start: 01-26-2020 End: 01-27-2020 Encounter for preprocedural laboratory examination DR SHARI MCKEON Facility:[facility] Start: 01-02-2020 End: 01-02-[address] BÁRBARA BLUE Facility:[facility] Start: 05-25-2018 End: 05-26-2018 Patient encounter procedure DEFAULT PHYSICIAN Facility:[facility] Plan of Treatment Date Care Activity Detail Author Start: 06-16-2024 Medicare Annual Wellness (AWV) Medicare Annual Wellness (AWV) [facility] Start: 05-09-2024 End: 05-09-2024 Patient encounter procedure 05/09/2024 10:30 AM EST Office Visit [facility] [address] [facility] [address] [facility] [place] [address] China Ortiz NP [address] [place] [address] [place] [address] Arrived [facility] Comment on above: Arrived Start: 12-28-2023 End: 12-28-2023 Professional / ancillary services management 12/28/2023 9:00 AM EDT Ancillary Procedure [facility] [address] [id number] [facility] Start: 12-13-2023 End: 02-11-2025 MG Breast - bilateral Screening Bilateral screening mammogram Imaging Routine Encounter for screening mammogram for malignant neoplasm of breast Expected: 12/13/2023, Expires: 02/11/2025 [facility] Work Phone: Comment on above: Expected: 12/13/2023 , Expires: 02/11/2025 Start: 11-13-2023 Influenza vaccination Influenza Vacc ine (#1) [facility] Start: 08-02-2023 End: 08-02-2023 Patient encounter procedure 08/02/2023 9:00 AM EDT Office Visit [facility] [address] [place] [address] Ede Ramos DO [address] [place] [address] [facility] Start: 05-06-2023 Medicare Annual Wellness (AWV) Medicare Annual Wellness (AWV) [facility] Immunizations Immunization Date Immunization Notes Care Provider Fa cility 12-23-2022 Influenza, High-dose Seasonal, Quadrivalent, Preservative Free Alexander Hackenburg HANDTOOLS REPAIRER Work Phone: [facility] 12-23-2022 SARS-COV-2 (COVID-19 ) vaccine, mRNA, spike protein, LNP, PF, 50 mcg/0.5 mL Alexander Hackenburg HANDTOOLS REPAIRER Work Phone: [facility] 12-23-2022 influenza virus vaccine, unspecified formulation Shari Mckeon MD Work Phone: [facility] 12-01-2021 Influenza, Seasonal, Quadrivalent, Adjuvanted Alexander Hackenburg HANDTOOLS REPAIRER Work Phone: [facility] 12-01-2021 Seasonal, trivalent, recombinant, injectable influenza vaccine, preservative free Alexander Hackenburg HANDTOOLS REPAIRER Work Phone: [facility] 12-16-2020 Influenza, High-dose Seasonal, Quadrivalent, Preservative Free Alexander Hackenburg HANDTOOLS REPAIRER Work Phone: [facility] 02-14-2020 zoster vaccine recombinant Alexander Hackenburg HANDTOOLS REPAIRER Work Phone: [facility] 12-07-2019 influenza, seasonal, injectable Alexander Hasobiaenburg HANDTOOLS REPAIRER Work Phone: [facility] 11-13-2019 influenza, injectabl e, quadrivalent, preservative free Alexander Hasobiaenburg HANDTOOLS REPAIRER Work Phone: [facility] 11-13-2019 zoster vaccine recombinant Alexander Hasobiaenburg HANDTOOLS REPAIRER Work Phone: [facility] 11-12-2019 zoster vaccine recombinant Alexander Hasobiaenburg HANDTOOLS REPAIRER Work Phone: [facility] 11-29-2018 Seasonal trivalent influenza vaccine, adjuvanted, preservative free Alexander Hasobiaenburg HANDTOOLS REPAIRER Work Phone: [facility] 11-30-2017 influenza, high dose seasonal, preservative-free Alexander Hasobiaenburg HANDTOOLS REPAIRER Work Phone: [facility] 11-24-2017 Seasonal trivalent influenza vaccine, adjuvanted, preservative free Alexander Hasobiaenburg HANDTOOLS REPAIRER Work Phone: [facility] 11-18-2016 influenza, high dose seasonal, preservative-free Alexander Hasobiaenburg HANDTOOLS REPAIRER Work Phone: [facility] Work Phone: 11-18-2016 pneumococcal conjuga te vaccine, 13 valent Alexander Patrickenburg HANDTOOLS REPAIRER Work Phone: [facility] 11-18-2016 Seasonal trivalent influenza vaccine, adjuvanted, preservative free Alexander Hasobiaenburg HANDTOOLS REPAIRER Work Phone: [facility] 11-18-2016 tetanus toxoid, redu greg diphtheria toxoid, and acellular pertussis vaccine, adsorbed Alexander Hasobiaenburg HANDTOOLS REPAIRER Work Phone: [facility] 11-12-2016 pneumococcal polysaccharide vaccine, 23 valent Alexander Hasobiaenburg HANDTOOLS REPAIRER Work Phone: [facility] 12-11-2015 influenza, high dose seasonal, preservative-free Alexander Hasobiaenburg HANDTOOLS REPAIRER Work Phone: [facility] 12-30-2014 influenza virus vaccine, whole virus Alexander Hackenburg HANDTOOLS REPAIRER Work Phone: [facility] 12-30-2014 influenza, injectabl e, quadrivalent, preservative free Alexander Hackenburg HANDTOOLS REPAIRER Work Phone: [facility] 05-10-2014 pneumococcal conjuga te vaccine, 13 valent Alexander Hackenburg HANDTOOLS REPAIRER Work Phone: [facility] 12-13-2013 influenza virus vaccine, whole virus Alexander Hackenburg HANDTOOLS REPAIRER Work Phone: [facility] 01-12-2013 pneumococcal Conjuga te, unspecified formulation Alexander Hackenburg HANDTOOLS REPAIRER Work Phone: [facility] 01-12-2013 seasonal influenza, intradermal, preservative free Alexander Hackenburg HANDTOOLS REPAIRER Work Phone: [facility] 12-27-2012 pneumococcal polysaccharide vaccine, 23 valent Alexander Hackenburg HANDTOOLS REPAIRER Work Phone: [facility] Payers Date Payer Category Payer Unknown 2017 Medicare ANTHEM MEDICARE ADVANTAGE ANTHEM MEDICARE ADVANTAGE [id number] 2017-Present [id number] 2017 Medicare (Managed Care) [facility] [id number] 1959 Unknown [id number] 1945 Unknown [id number] 2.16.840.1.762543.3.579. 2.647 1944 Unknown [id number] 2.16.840.1.808845.3.579. 2.593 1944 Unknown [id number] 2.16.840.1.306330.3.579. 2.593 1944 Unknown [id number] 2.16.840.1.413065.3.579. 2.593 1944 Unknown [id number] 2.16.840.1.494330.3.579. 2.593 1944 Unknown [id number] 2.16.840.1.088114.3.579. 2.593 1944 Unknown [id number] 2.16.840.1.632011.3.579. 2.718 1944 Unknown [id number] 2.16.840.1.258542.3.579. 2.718 1944 Unknown [id number] 2.16.840.1.776513.3.579. 2.1286 1944 Unknown [id number] 2.16.840.1.761067.3.579. 2.196 1944 Unknown [id number] 2.16.840.1.428536.3.579. 2.196 1944 Unknown [id number] 2.16.840.1.126110.3.579. 2.196 1944 Unknown [id number] 2.16.840.1.587074.3.579. 2.196 1944 Unknown [id number] 2.16.840.1.235108.3.579. 2.196 1944 Unknown [id number] 2.16.840.1.941161.3.579. 2.196 1944 Unknown [id number] 2.16.840.1.488666.3.579. 2.196 1944 Unknown [id number] 2.16.840.1.077063.3.579. 2.196 1944 Unknown [id number] 2.16.840.1.259963.3.579. 2.196 1944 Unknown [id number] 2.16.840.1.929306.3.579. 2.196 1944 Unknown [id number] 2.16.840.1.403825.3.579. 2.1259 1944 Unknown [id number] 2.16.840.1.490557.3.579. 2.9 1944 Unknown [id number] 2.16.840.1.549025.3.579. 2.9 1944 Unknown [id number] 2.16.840.1.632851.3.579. 2.9 1944 Unknown [id number] 2.16.840.1.270858.3.579. 2.1259 1944 Unknown [id number] 2.16.840.1.214684.3.579. 2.1259 Social History Date Type Detail Facility [...] more drinks on 1 occasion? Never [facility] Clinical Notes 02-01-2020 to 05-09-2024 China Ortiz, HANDTOOLS REPAIRER - 05/09/2024 10:30 AM ESTTelephone Encounter - [...] PRN atorvastatin (LIPITOR) 20 mg, Oral, Daily zsblhgckrj-vlezuijxybbuk-qwoiehnk 50-325-40 MG tablet 1 tablet, Every 4 [...] treatments as prescribed. documented in this encounter [facility] 04-23-2024 Telephone encounter Note Pt needs a confirmation of 3 mos supply [facility] to [facility] Fluticasone-salmeterol 250-50 mcg/act aerosol powder [facility] 04-23-2024 Miscellaneous Notes Pt needs a confirmation of 3 mos supply sent to [facility] Fluticasone-salmeterol 250-50 mcg/act aerosol powder documented in this encounter [facility] 01-24-2024 History of Present illness Narrative Images [...] once daily, Disp: 90 tablet, Rfl: 0 nglkluwbdl-ajqcjncpfykhp-zfmoimcu 50-325-40 MG tablet, Take 1 tablet by [...] Roger Vasquez DPM documented in this encounter [facility] 01-24-2024 Instructions Roger Vasquez DPM - 01/24/2024 1:00 PM EST As noted documented in this encounter [facility] 12-22-2023 Telephone encounter Note Approvals with refills [facility] 12-22-2023 Miscellaneous Notes Approvals with refills documented in this encounter [facility] 12-13-2023 Telephone encounter Note Patient called and would like an order for a mammogram sent over. Last one on 12/20/2022. Thank you [facility] 12-13-2023 Miscellaneous Notes Patient called and would like an order for a mammogram sent over. Last one on 12/20/2022. Thank you documented in this encounter [facility] 11-17-2023 Telephone encounter Note Refills sent. [facility] 11-17-2023 Miscellaneous Notes Refills sent. documented in this encounter [facility] 04-27-2023 Telephone encounter Note Called pt and informed [facility] 04-27-2023 Miscellaneous Notes Called pt and informed Pt called stated she had LT TSA 07/26/22 and is getting a cavity filled and needs antibiotic called into [facility] in [place]. Allergies: NKDA . Her call back [phone] documented in this encounter [facility] 04-27-2023 Telephone encounter Note Pt called stated she had LT TSA 07/26/22 and is getting a cavity filled and needs antibiotic called into [facility] in [place]. Allergies: NKDA . Her call back [phone] [facility] 04-21-2023 Telephone encounter Note Refills sent. [facility] 04-21-2023 Miscellaneous Notes Refills sent. documented in this encounter [facility] 07-27-2022 Note [id number] [facility] 07-26-2022 Note [facility] SURGERY Clinical Discharge Summary PERSON INFORMATION Name RADHA CUADRA Age 77 Years 1945 Sex FEMALE Language Azerbaijani PCP SHARI MCKEON Marital Status [facility] Service Ambulatory Surgery N 18-22-14 Acct# Arrival 07/26/2022 05:52:10 Visit Reason SURGERY - LEFT REVERSE TOTAL SHOULDER - ARTHREX Acuity LOS 05 02:57 Address: [address] [place] [address] [place] [address] Comment: PROVIDER INFORMATION VITALS INFORMATION Vital Sign [...] REASON INCOMPLETE INFORMATION (more content not included)... [facility] 02-01-2020 Note OPERATIVE NOTE OPERATION DATE: 02/01/2020 PREOPERATIVE DIAGNOSIS: Dysphagia. POSTOPERATIVE DIAGNOSIS: Gastritis. PROCEDURE PERFORMED: Esophagogastroduodenoscopy with biopsy x1 from the antrum of stomach for Helicobacter pylori testing. SURGEON: Carlos Eudardo Menendez MD ANESTHESIA: Monitored anesthesia care. DISPOSITION: The patient was taken to the holding area in fair condition. PROCEDURE: Patient was brought into the Endoscopy Suite in the supine position. She was sedated by the nurse housekeeping lead. Bite block was placed in her mouth. [...] the procedure without any difficulties. [facility] SIGNED AND APPROVED BY: DR CARLOS EDUARDO MENENDEZ . 02/07/2020 09:15:[address] [facility] Evaluation note Diagnosis Essential hypertension (CMS/HCC) Unspecified [...] CREATED AUTHOR AUTHOR'S ORGANIZ ATION 11/06/2020 [facility] [place] [facility] DATE CREATED AUTHOR AUTHOR'S ORGANIZ ATION 05/12/2022 [facility] dical Specialist DATE CREATED AUTHOR AUTHOR'S ORGANIZ ATION 07/28/2022 [facility] DATE CREATED AUTHOR AUTHOR'S ORGANIZ ATION 10/06/2023 [facility] DATE CREATED AUTHOR AUTHOR'S ORGANIZ ATION 03/05/2024 [facility] DATE CREATED AUTHOR AUTHOR'S ORGANIZ ATION 05/11/2024 [facility] dical Specialists EPIC Reason for Visit [...] Care Teams (unrecognized sec tion and content) Cardiovascular Tech Relationship Specialty Start Date End Date Alexander Aparicio NP [address] [place] [address] PCP - Cristobal FIGUEROA 03/21/21 Shari Mckeon MD [address] [place] [address] PCP - General Family Medicine 07/26/22 Cardiovascular Tech Relationship Specialty Start Date End Date Alexander Aparicio NP [address] [place] [address] PCP - Cristobal FIGUEROA 03/21/21 Shari Mckeon MD [address] [place] [address] PCP - General Family Medicine 07/26/22 Cardiovascular Tech Relationship Specialty Start Date End Date Alexander Aparicio NP [address] [place] [address] PCP - Cristobal FIGUEROA 03/21/21 Shari Mckeon MD [address] [place] [address] PCP - General Family Medicine 07/26/22 Cardiovascular Tech Relationship Specialty Start Date End Date Alexander Aparicio NP [address] [place] [address] PCP - Cristobal FIGUEROA 03/21/21 Shari Mckeon MD [address] [place] [address] PCP - General Family Medicine 07/26/22 Cardiovascular Tech Relationship Specialty Start Date End Date Alexander Aparicio NP [address] [place] [address] PCP - Cristobal FIGUEROA 03/21/21 Shari Mckeon MD [address] [place] [address] PCP - General Family Medicine 07/26/22 Cardiovascular Tech Relationship Specialty Start Date End Date Alexander Aparicio NP [address] [place] [address] PCP - Cristobal FIGUEROA 03/21/21 Shari Mckeon MD [address] [place] [address] PCP - General Family Medicine 07/26/22 Cardiovascular Tech Relationship Specialty Start Date End Date Alexander Aparicio NP [address] [place] [address] PCP - Cristobal FIGUEROA 03/21/21 Shari Mckeon MD [address] [place] [address] PCP - General Family Medicine 07/26/22 Cardiovascular Tech Relationship Specialty Start Date End Date Alexander Aparicio NP [address] [place] [address] PCP - Cristobal FIGUEROA 03/21/21 Shari Mckeon MD [address] [place] [address] PCP - General Family Medicine 07/26/22 Cardiovascular Tech Relationship Specialty Start Date End Date Alexander Aparicio NP [address] [place] [address] PCP - Cristobal FIGUEROA 03/21/21 Shari Mckeon MD [address] [place] [address] PCP - General Family Medicine 07/26/22 Cardiovascular Tech Relationship Specialty Start Date End Date Shari Mckeon MD [address] [place] [address] PCP - General Family Medicine 07/26/22 Cardiovascular Tech Relationship Specialty Start Date End Date Shari Mckeon MD [address] [place] [address] PCP - General Family Medicine 07/26/22 FOR [...] BE BASED ON THE PRIMARY CLINICAL RECORDS. [facility] [employer] provides no warranty or guarantee of the accuracy or completeness of information in this document.
--- NOTE | 2024-06-06 07:33 | MR_ITS ---
The [address] [address] Patient Name: TRACI BARRAZA MRN: [id number] date: 1945 Sex: F Assigned Patient Location: MRI Current Patient Location: MRI Accession/Order Number: [id number] Exam Date: 06/06/2024 14:56 Report Date: 06/06/2024 14:58 At the request of: RINKU BENNETT NP Procedure: MR thoracic spine wo con MRI of the thoracic spine without IV contrast. Reason for exam: Chronic back pain without injury. COMPARISON: Thoracic spine series 12/14/2023 TECHNIQUE: Multisequence, multiplanar imaging of the thoracic spine was obtained without the use of IV contrast. FINDINGS: Vertebral body heights appear maintained. Endplate degenerative changes are noted. No bone marrow edema is seen. No significant canal or neural foraminal stenosis is noted. No significant posterior disc pathology. No paraspinal mass. No abnormal cord signal. MR/MR thoracic spine wo con IMPRESSION: Degenerative changes involving the thoracic spine without vertebral body height loss, significant canal or neural foraminal stenosis. Impression dictated by: Alejandro Gomez Jr., D.O.06/06/2024 2:58 PM Dictation Location: [place] [address] Electronically authenticated by: [id number] Y Date: 06/06/2024 14:58
== END 2024-06-06 07:30 | disposition home or self-care (01) ==
LOC: MRI 07:29
PROVIDERS: PCP Family Medicine; Visit Provider Nurse Practitioner
DX: M54.89 Other dorsalgia (principal); M47.814 Spondylosis without myelopathy or radiculopathy, thoracic region; M51.34 Other intervertebral disc degeneration, thoracic region
CPT/HCPCS: 72146

== ENCOUNTER 2024-06-21 14:49 | Outpatient (OUT) | payer MEDICARE, SELFPAY ==
--- NOTE | 2024-06-21 15:06 | PM.CN ---
Consult Note: HPI Data of Consult Patient: known to practice within the last 3 years Requesting Physician: Concha Lopez NP Primary Care Provider: KELLY MCKEON Consult Narrative Reason for consult: f/u Narrative: 79yof who presents for assessment. advanced imaging completed which shows multilevel facet arthropathy in thoracic and lumbar spine. has continued to engage in a series of provider directed home exercises >6 weeks, without lasting benefit. uses otc pain meds as needed and tylenol #3 BID PRN. denies adverse med side effects. patient recently underwent left and right T10-11 T11-12 RFA with >50% improvement ongoing, OD now 2%. Pain today 0/10 increasing to 4/10 with baking and activity. cc:: CC: Concha Lopez NP Review of Systems ROS Status of ROS 10 or more systems reviewed and unremarkable except as noted in history and below Musculoskeletal Reports: back pain PFSH PFSH Medical History Osteoarthritis ?M19.90 - Unspecified osteoarthritis, unspecified site (ICD-10) Heart murmur ?R01.1 - Cardiac murmur, unspecified (ICD-10) Surgical History History of total shoulder replacement ?Z96.619 - Presence of unspecified artificial shoulder joint (ICD-10) History of total knee arthroplasty ?Z96.659 - Presence of unspecified artificial knee joint (ICD-10) History of carpal tunnel release ?Z98.890 - Other specified postprocedural states (ICD-10) Meds Home Medications and Allergies Home Medications ?Medication ?Instructions ?Recorded ?Confirmed ?Type calcium 600 mg (as 1 tab PO BID 07/11/23 02/20/24 History carbonate)-vitamin D3 5 mcg (200 unit) tablet (Calcium 600 + D(3)) losartan 100 mg tablet 100 mg PO DAILY 07/11/23 02/20/24 History multivitamin-ferrous 1 tab PO DAILY 07/11/23 02/20/24 History fumarate-folic acid 18 mg-400 mcg tablet (Centrum Women) trazodone 50 mg tablet 50 mg PO DAILY 07/11/23 02/20/24 History acetaminophen 300 mg-codeine 30 mg 1 tab PO BID PRN pain #60 tabs 01/11/24 02/20/24 Rx tablet albuterol 90 mcg/actuation aerosol mcg inhalation BID 02/01/24 History inhaler acetaminophen 300 mg-codeine 30 mg 1 tab PO BID PRN pain #60 tabs 02/23/24 Rx tablet acetaminophen 300 mg-codeine 30 mg 1 tab PO BID PRN pain #60 tabs 03/28/24 Rx tablet baclofen 10 mg tablet See Rx Instructions .Route 03/28/24 Rx .COMPLEX #60 tabs Allergies Allergy/AdvReac Type Severity Reaction Status Date / Time No Known Drug Allergies Allergy Verified 02/20/24 08:53 Exam Constitutional Documenting provider has reviewed patient's vital signs: yes Common normals: no apparent distress, oriented x3, healthy appearing, alert and well nourished General appearance: cooperative HENMT Common normals: normocephalic, hearing grossly normal bilaterally and moist oral mucous membranes Head and scalp: normocephalic Eye Common normals: PERRL Pupil: PERRL Neck & C-Spine Common normals: full ROM General: normal visual inspection Chest Common normals: inspection of chest normal Respiratory Common normals: normal respiratory effort, no retractions and no use of accessory muscles Back & Pelvis Thoracic spine/upper back: ROM limited, pain with ROM and thoracic spinal tenderness T-spine tenderness location: T5, T6 and T7; no paraspinal muscle spasm Other: negative facet loading no tenderness over T10-L2 facets no radiculopathy on exam strength 5/5 in BLE Neuro Common normals: oriented x3, CN's II-XII intact bilaterally, moves all extremities, no focal motor deficits, no sensory deficits noted and deep tendon reflexes 2+ bilaterally Sensorium/orientation: alert Motor exam: strength 5/5 throughout and no movement abnormalities noted Psych Common normals: mental status grossly normal, thought process normal, cooperative, affect normal, speech normal and activity/motor behavior normal Speech: normal speech Thought process: normal thought process Results Additional Findings Additional findings: If on a controlled substance or opioids, I have checked an [place] report on this patient and there are no aberrancies noted in the prescribing history.??If on a controlled substance or opioid a drug screen was completed and reviewed within the last year, and if there has not been a drug screen completed we ordered one today to monitor higher risk, state monitored pain medication use. As part of providing excellent, safe, comprehensive care, the following was completed at our patient's visit: 1. A medication reconciliation and review to ensure accurate knowledge of current/active medications, including asking our patients to inform us about any bfta-alz-obylrha medications or herbal remedies/nutritional supplements/alternative remedies. 2. A review to specifically ensure our patients have had annual screening for screening for depression, screening for tobacco use, and screening for unhealthy alcohol use. For concerning screenings had a discussion with the patient, provided patient education, and recommended follow-up with primary care provider when appropriate. If patient noted with a risk of falling, they received education on strength, gait, and balance training to prevent future risk of falling. Assessment and Plan Assessment and Plan (1) Thoracic spondylosis: (2) Thoracic back pain: (3) Lumbar spondylosis: (4) Chronic use of opiate drug for therapeutic purpose: Assessment and Plan: I feel these medications are improving the patient's quality of life and allow them to tolerate activities of daily living as well as participate in recreational activity.? The patient does not report intolerable side effects. The patient is NOT opioid naive and non-pharmacologic and non-opioid treatment has failed to significantly relieve the patient's pain and improve functionality. The patient has a diagnosis that is related to a somatic or visceral pain etiology. ? ?? I reviewed with the patient the potential risks and side effects with the use of? opioid medications including but not limited to respiratory depression,? sedation, and even . I verified the patient has access to naloxone should? these effects occur. I advised the patient to avoid the use of any other? sedation substances including alcohol, THC, and benzodiazepines while? taking opioid medications due to the risk of compounding side effects and? detrimental outcomes. I reviewed the PUBLIC AFFAIRS SPECIALIST, pain treatment agreement, urine? drug screen, and opioid start talking forms. The patient was advised to let? their family know they had Naloxone in case they would need to administer? the medication.? ?? A drug screen was completed within the last year, and no aberrancies were noted regarding their use of controlled substances. The patient understands they are subject to the terms and conditions of the pain contract that they have signed. ? ?? I have checked an OAR[place] report on this patient today and there are no aberrancies noted in the prescribing history.? (5) Osteoarthritis: Plan thoracic MRI reviewed, pt declining spinal cord stim trial as discussed today continue baclofen 5-10mg BID PRN pain/spasms continue tylenol #3 BID PRN moderate to severe pain f/u 3 months, sooner if needed
== END 2024-06-21 14:50 ==
LOC: PM 14:49
PROVIDERS: PCP Family Medicine; Visit Provider Nurse Practitioner
DX: M47.814 Spondylosis without myelopathy or radiculopathy, thoracic region (principal); M54.6 Pain in thoracic spine; M47.816 Spondylosis without myelopathy or radiculopathy, lumbar region; Z79.891 Long term (current) use of opiate analgesic; M19.90 Unspecified osteoarthritis, unspecified site
CPT/HCPCS: G0463

== ENCOUNTER 2024-09-26 08:26 | Outpatient (OUT) | payer MEDICARE, SELFPAY ==
--- OUTSIDE RECORDS SUMMARY | 2024-09-26 08:29 | XMS_ITS | Encounter Summary ---
Author Organization [facility] Address [address] [place] [place] [address] Care Team Providers Care Waste Management Specialist Name Role Phone PatrickleechiquiTamara Temo EMBEDDED LINUX ENGINEER Unavailable Shari Kay MD Primary Care Provider Encounter Details Date Type Department Care Team (Late st Contact Info) Description 08/19/2022 Abstract [facility] [address] [place] [address] Shari Kay MD [address] [place] [address] Social History Tobacco Use Types Packs/Day Years Used Date Smoking Tobacco: Never Alcohol Use Standard Drinks/Week Comments Yes 14 (1 standard drink = 0.6 oz pure alcohol) caffeine intake: 1-2 cups per day Comments Unknown Sex and Gender Information Value Date Recorded Sex Assigned at Not on file Legal Sex Female 6:52 PM EDT Gender Identity Not on file Sexual Orientation Not on file documented as of this encounter Plan of Treatment Upcoming Encounters Date Type Department Care Team (Late Contact Info) Description 09/26/2024 2:00 PM EDT Office Visit [facility] [address] [place] [address] China Ortiz NP [address] [place] [address] documented as of this encounter Visit Diagnoses Not on filedocumented in this encounter Care Teams Waste Management Specialist Relationship Specialty Start Date End Date Tamara Aparicio NP [address] [place] [address] PCP - Cristobal FIGUEROA 03/21/21 06/11/24 Shari Kay MD [address] [place] [address] PCP - General Family Medicine 07/26/22 documented as of this encounter
--- OUTSIDE RECORDS SUMMARY | 2024-09-26 08:29 | XMS_ITS | Encounter Summary ---
Author Organization [facility] Address [address] [place] [address] Care Team Providers Care Hide Dyer Name Role Phone PatrickleechiquiTamara Temo FORCE VARIATION EQUIPMENT TENDER Unavailable [phone] Shari Kay MD Primary Care Provider [phone] Encounter Details Date Type Department Care Team (Late st Contact Info) Description 07/11/2023 Abstract [facility] [address] [place] [address] Shari Kay MD [address] [place] [address] Social History Tobacco Use Types Packs/Day Years Used Date Smoking Tobacco: Never Smokeless Tobacco: Never Alcohol Use Standard Drinks/Week Comments Yes 5 (1 standard drink = 0.6 oz pure alcohol) Caffeine intake: 1-2 cups per day AUDIT-C Answer Date Recorded Q1: How often do you have a drink containing alcohol? 4 or more times a week 06/17/2023 Q2: How many drinks containi ng alcohol do you have on a typical day when you are drinking? 1 or 2 Q3: How often do you have si x or more drinks on one occasion? Never 06/17/2023 PHQ-2 Answer Date Recorded Patient Health Questionnaire-2 Score 0 06/17/2023 Comments Unknown Sex and Gender Information Value Date Recorded Sex Assigned at Not on file Legal Sex Female 6:52 PM EDT Gender Identity Not on file Sexual Orientation Not on file documented as of this encounter Plan of Treatment Upcoming Encounters Date Type Department Care Team (Late st Contact Info) Description 09/26/2024 2:00 PM EDT Office Visit [facility] [address] [place] [address] China Ortiz NP [address] [place], [place] [id number] documented as of this encounter Visit Diagnoses Not on filedocumented in this encounter Additional Health Concerns Assessment Noted Time PHQ-9 Depression Total Score: 2 06/17/19 24 8:00 AM EDT documented as of this encounter Care Teams Hide Dyer Relationship Specialty Start Date End Date Tamara Aparicio NP [address] [address] PCP - Cristobal FIGUEROA 03/21/21 06/11/24 Shari Kay MD [address] [place], [place] [id number] PCP - General Family Medicine 07/26/22 documented as of this encounter
--- OUTSIDE RECORDS SUMMARY | 2024-09-26 08:29 | XMS_ITS | Clinical Summary ---
Author Organization [facility] Address [address] [place] [address] Care Team Providers Care Patient Access Registrar Name Role Phone Shari Kay MD Primary Care Provider [phone] Allergies Active Allergy Reactions Criticality Noted Date Comments Alendronate Unknown 09/10/2020 Medications CALCIUM-VITAMIN D PO 2 (two) times a day. 3 Active butalbital-acetamin ophen-caffeine 50-325-40 MG tablet Take 1 tablet by mouth every 4 (four) hours if needed (headache). Active Multiple Vitamin (multivitamin) capsule Take 1 capsule by mouth in the morning. Active atorvastatin (Lipitor) 20 MG tabletIndications:M ixed hyperlipidemia take 1 tablet by mouth once daily 90 tablet 4 Active traZODone (Desyrel) 50 MG tabletIndications:P rimary insomnia Take 1 tablet (50 mg) by mouth at bedtime 90 tablet 11 4 Active Fluticasone-Salmete rol 250-50 MCG/ACT aerosol powderIndications:M ild intermittent asthma, unspecified whether complicated (HCC) Inhale 1 puff in the morning and 1 puff before bedtime. 180 each 1 5 Active acetaminophen-codei ne (Tylenol w/ Codeine #3) 300-30 MG tablet Take 1 tablet by mouth 2 (two) times a day as needed 5 Active ondansetron (Zofran) 4 MG tablet Take 4 mg by mouth Daily as needed 5 Active losartan-hydroCHLOR Othiazide (Hyzaar) 100-12.5 MG tabletIndications:E ssential hypertension Take 1 tablet by mouth in the morning. 100 tablet 5 Active Active Problems Problem Noted Date Diagnosed Date Hyperlipidemia 08/03/2022 Other chronic pain 08/03/2022 Age-related osteoporosis wit hout current pathological fracture 07/15/2022 Artificial knee joint present 07/15/2022 Difficulty walking 07/15/2022 Essential hypertension 07/15/2022 Osteoarthritis of left glenohumeral joint 2022 Migraine without aura and wi thout status migrainosus, not intractable 07/15/2022 Mild aortic stenosis 07/15/2022 Moderate aortic regurgitation 07/15/2022 Nonrheumatic mitral valve regurgitation 07/16/19 Nonrheumatic tricuspid valve regurgitation 07/15 Other insomnia 07/15/2022 Pure hypercholesterolemia 07/15/2022 RLS (restless legs syndrome) 07/15/2022 Stage 3b chronic kidney disease 07/15/2022 Systolic murmur 07/15/2022 Nonrheumatic aortic valve insufficiency 07/10/19 Chronic tension-type headache 10/06/2017 Mild intermittent asthma 06/12/2017 Chronic obstructive pulmonary disease 05/18/2011 Resolved Problems Problem Noted Date Diagnosed Date Resolved Date Heart murmur 08/03/2022 06/17/2023 HTN (hypertension) 08/03/2022 4 Arthritis of left knee 07/15/202206/16 Dysphagia 07/15/2022 06/17/2023 Internal derangement of left shoulder 07/15/2022 06/17/2023 Mild intermittent asthma wit h status asthmaticus 07/15/2022 06/17/2023 Reflux gastritis 07/15/2022 06/17/2023 Poor sleep pattern 08/21/2020 Non-rheumatic mitral regurgitation 07/10/2019 06/17/2023 Primary osteoarthritis of right knee 07/26/2018 06/17/2023 Aortic valve disorder 06/20/20182023 Age related osteoporosis 11/04/201707/2023 Restless legs 10/26/2017 06/17/2023 Osteoarthritis of left knee 06/22/2017 06/17/2023 Nonrheumatic tricuspid valve disorder 06/12/2017 06/17/2023 Postmenopausal state 06/28/2015 024 Migraine without aura, not refractory 06/28/2015 06/17/2023 Intractable episodic cluster headache 03/29/2015 06/17/2023 Immunizations Immunization Administration Dates Next Due Influenza Whole 12/30/2014,12/13/2013 Influenza, High Dose Seasona l, Preservative Free 11/30/2017,11/18/2016,12/11/2015 Influenza, High-dose Seasona l, Quadrivalent, Preservative Free 12/23/2022,12/16/2020 Influenza, Recombinant, inje ctable, preservative free 12/01/2021 Influenza, Seasonal, Quadriv alent, Adjuvanted 12/01/2021 Influenza, injectable, quadr ivalent, preservative free 11/13/2019,12/30/2014 Influenza, seasonal, injectable 12/07/2019 Influenza, seasonal, intrade rmal, preservative free 01/12/2013 Influenza, trivalent, adjuvanted 11/29/2018,11/12,11/18/2016 Pneumococcal Conjugate PCV 13 11/18/2016, 015 Pneumococcal Conjugate, Unspecified 01/12/2013 Pneumococcal Polysaccharide PPSV23 11/12/2016, SARS-COV-2 (COVID-19) vaccin e, mRNA, spike protein, LNP, PF, 50 mcg/0.5 mL 12/23/2022 Tdap 11/18/2016 Zoster, Recombinant 02/14/2020,11/13/2019,2019 Family History Medical History Relation Name Comments Emphysema Father Emphysema Mother Emphysema Other Relation Name Status Comments Brother 2 brothers Daughter 5 daughters Father Mother Other Family history Son 3 sons Social History Tobacco Use Types Packs/Day Years Used Date Smoking Tobacco: Never Smokeless Tobacco: Never Tobacco Cessation:Counseling Given: Not Answered Alcohol Use Standard Drinks/Week Comments Yes 5 [...] on file Sexual Orientation Not on file Last Filed Vital Signs Vital Sign Reading Time Taken Comments Blood Pressure 120/70 05/09/2024 10:42 AM EST Pulse 86 05/09/2024 10:34 AM EST Temperature 37.4 C (99.3 F) 05/09/2024 10:34 AM EST Respiratory Rate 18 09/19/2023 2:02 PM EDT Oxygen Saturation 96% 05/09/2024 10:34 AM EST Inhaled Oxygen Concentration - - Weight 45.5 kg (100 lb 6.4 oz) 05/09/2024 10:34 AM EST Height 149.9 cm (4' 11 ) 05/09/2024 10:34 AM EST Body Mass Index 20.28 05/09/2024 10:34 AM EST Plan of Treatment Upcoming Encounters Date Type Department Care Team (Late st Contact Info) Description 09/26/2024 2:00 PM EDT Office Visit [facility] [address] [place] [phone] China Ortiz NP [address] [place] [address] Health Maintenance Due Date Last Done Comments Medicare Annual Wellness (AWV) 06/16/2024 06/17/2023 , 06/17/2023 Influenza Vaccine (#1) 2024 , 12/23/2022, 12/01/2021, Additional history exists Pneumococcal Vaccine: 65+ Years Completed 11/18/2016, 11/12/2016, 05/10/2014, Additional history exists Insurance [facility] MEDICARE ADVANTAGE Care Teams Patient Access Registrar Relationship Specialty Start Date End Date Shari Kay MD [address] [place] [address] PCP - General Family Medicine 07/26/22
--- OUTSIDE RECORDS SUMMARY | 2024-09-26 08:29 | XMS_ITS | Encounter Summary ---
Author Organization [facility] Address [address] [place] [address] Care Team Providers Care Substation Design Draftsperson Name Role Phone PatrickleechiquiTamara Temo MACHINE FANCY STITCHER Unavailable [phone] Shari Kay MD Primary Care Provider [phone] Reason for Visit * Reason Comments Med Refill Encounter Details Date Type Department Care Team (Late st Contact Info) Description 03/19/2024 Refill [facility] [address] [place] [address] Shari Kay MD [address] [place] [address] Essential hypertension Social History Tobacco Use Types Packs/Day Years [...] on file documented as of this encounter Miscellaneous Notes * Telephone Encounter - Ivania Grace MA - 03/19/2024 12:17 PM EST Approving, but needs appt for additional refills. documented in this encounter Plan of Treatment Upcoming Encounters Date Type Department Care Team (Late st Contact Info) Description 09/26/2024 2:00 PM EDT Office Visit [facility] [address] [place] [address] China Ortiz NP [address] [place], [place] [id number] documented as of this encounter Visit Diagnoses Diagnosis Essential hypertension Unspecified essential hypertension documented in this encounter Additional Health Concerns Assessment Noted Time PHQ-9 Depression Total Score: 2 06/17/19 24 8:00 AM EDT documented as of this encounter Care Teams Substation Design Draftsperson Relationship Specialty Start Date End Date Tamara Aparicio NP [address] [address] PCP - Cristobal FIGUEROA 03/21/21 06/11/24 Shari Kay MD [address] [place], [place] [id number] PCP - General Family Medicine 07/26/22 documented as of this encounter
--- OUTSIDE RECORDS SUMMARY | 2024-09-26 08:29 | XMS_ITS | Encounter Summary ---
Author Organization [facility] Address [address] [place] [address] Care Team Providers Care Employment Officer Name Role Phone Tamara Aparicio PAINT POURER Unavailable [phone] Shari Kay MD Primary Care Provider [phone] Reason for Visit * Reason Comments Med Refill Encounter Details Date Type Department Care Team (Late st Contact Info) Description 08/24/2022 Refill [facility] [address] [place] [address] Ede Ramos DO [address] [place], [place] [id number] Social History Tobacco Use Types Packs/Day Years [...] 09/26/2024 2:00 PM EDT Office Visit [facility] [address] [place] [address] China Ortiz NP [address] [place] [address] documented as of this encounter Visit Diagnoses Not on filedocumented in this encounter Care Teams Employment Officer Relationship Specialty Start Date End Date Tamara Aparicio NP [address] [facility] [address] [place] [phone] PCP - Cristobal FIGUEROA 03/21/21 06/11/24 Shari Kay MD [address] [place], [place] [id number] PCP - General Family Medicine 07/26/22 documented as of this encounter
--- OUTSIDE RECORDS SUMMARY | 2024-09-26 08:29 | XMS_ITS | Encounter Summary ---
Author Organization [facility] Address [address] [place] [address] Care Team Providers Care Powerhouse Mechanic Apprentice Name Role Phone Tamara Aparicio PILE DRIVER OPERATOR HELPER Unavailable [phone] Shari Mckeon MD Primary Care Provider [phone] Encounter Details Date Type Department Care Team (Late st Contact Info) Description 12/14/2023 Clinisync Result Encounter [facility] External Department Unsolicited Provider, Generic External Data Social History Tobacco Use Types Packs/Day Years [...] Office Visit [facility] [address] [place] [address] China Ortiz NP [address] [facility] [place] [id number] documented as of this encounter Procedures Procedure Name Priority Date/Time Associated Diagnosis Comments XR THORACIC SPINE 2 VIEWS 12/14/2023 9:08 AM EDT documented in this encounter Results * XR thoracic spine 2 views (12/14/2023 9:08 AM EDT) Anatomical Region Laterality Modality Spine, T-spine Radiographic Lindsay ging 12/14/2023 9:08 AM EDT Narrative 12/14/2023 9:10 [place] [address] XRay Report Signed Patient: Radha Cuadra MR#: [id number] : 1945 Acct:[id number] Age/Sex: 78 / F ADM Date: 12/14/23 Loc: RAD Attending Dr: Rinku Bennett PILE DRIVER OPERATOR HELPER Ordering Physician: Rinku Bennett NP Date of Service: 12/14/23 Procedure(s): XR thoracic spine 2V Accession Number(s): [id number] cc: Rinku Bennett NP; SHARI MCKEON [place] [id number] Patient Name: RADHA CUADRA MRN: [id number] date: 1945 Sex: F Assigned Patient Location: [facility] Current Patient Location: RAD Accession/Order Number: [id number] Exam Date: 12/14/2023 08:16 Report Date: 12/14/2023 09:08 At the request of: RINKU BENNETT Procedure: XR thoracic spine 2V EXAMINATION: XR thoracic spine 2V HISTORY: Thoracic Spondylosis COMPARISON: No relevant comparison available. FINDINGS: BONES: Dextrocurvature centered at T6. Mild to moderate spondylosis and facet osteoarthropathy. Partially visualized cervical hardware. Partially visualized left shoulder arthroplasty DISC SPACES: Normal. No significant disc height narrowing, subluxation, or endplate abnormality. PARASPINOUS: Negative. No paraspinous abnormality is seen. OTHER: Negative. XR/XR thoracic spine 2V IMPRESSION: Moderate degenerative changes with dextrocurvature Electronically authenticated by: RODRI ALANIS Date: 12/14/2023 09:08 Dictated By: Rodri Alanis M.D. Signed By: 12/14/23909 DD/ 7 TD/TT: Reptile Farmer: Procedure Note Radiology, Radiologist, MD - 12/14/2023 [place] [address] XRay Report Signed Patient: Radha Cuadra EMR#: [id number] : 5Acct:[id number] Age/Sex: 78 / FADM Date: 12/14/23 Loc: [facility] Attending Dr: Rinku Bennett NP Ordering Physician: Rinku Bennett NP Date of Service: 12/14/23 Procedure(s): XR thoracic spine 2V Accession Number(s): [id number] cc: Rinku Bennett NP; SHARI MCKEON [place] [id number] Patient Name: RADHA CUADRA MRN: [id number] date: 1945 Sex: F Assigned Patient Location: [facility] Current Patient Location: [facility] Accession/Order Number: [id number] Exam Date: 12/14/2023 08:16 Report Date: 12/14/2023 09:08 At the request of: RINKU BENNETT Procedure: XR thoracic spine 2V EXAMINATION: XR thoracic spine 2V HISTORY: Thoracic Spondylosis COMPARISON: No relevant comparison available. FINDINGS: BONES: Dextrocurvature centered at T6. Mild to moderate spondylosis andfacet osteoarthropathy. Partially visualized cervical hardware. Partiallyvisualized left shoulder arthroplasty DISC SPACES: Normal. No significant disc height narrowing, subluxation, or endplate abnormality. PARASPINOUS: Negative. No paraspinous abnormality is seen. OTHER: Negative. XR/XR thoracic spine 2V IMPRESSION: Moderate degenerative changes with dextrocurvature Electronically authenticated by: RODRI ALANIS Date: 12/14/2023 09:08 Dictated By: Rodri Alanis M.D. Signed By:12/14/23909 DD/ 7 TD/TT: Reptile Farmer: us Generic External Data Provider IMG XR PROCEDURES Final Result documented in this encounter Visit Diagnoses Not on filedocumented in this encounter Additional Health Concerns Assessment Noted Time PHQ-9 Depression Total Score: 2 06/17/19 24 8:00 AM EDT documented as of this encounter Care Teams Powerhouse Mechanic Apprentice Relationship Specialty Start Date End Date Tamara Aparicio NP [address] [address] PCP - Cristobal FIGUEROA 03/21/21 06/11/24 Shari Mckeon MD [address] [place] [address] PCP - General Family Medicine 07/26/22 documented as of this encounter
--- OUTSIDE RECORDS SUMMARY | 2024-09-26 08:29 | XMS_ITS | Clinical Summary ---
Author Organization [facility] Address [address] [place] [address] Care Team Providers Care Car Seat Upholsterer Name Role Phone Unavailable Primary Care Provider Unavailabl e Social History Tobacco Use Types Packs/Day Years Used Date Smoking Tobacco: Never Assessed Comments Unknown Sex and Gender Information Value Date Recorded Sex Assigned at Not on file Legal Sex Female 11:03 PM EDT Gender Identity Not on file Sexual Orientation Not on file Plan of Treatment Not on file
--- OUTSIDE RECORDS SUMMARY | 2024-09-26 08:29 | XMS_ITS | Clinical Summary ---
Author Organization Accurence tem Address [id number] [address] [place] [address] Care Team Providers Care Prep Person Name Role Phone Shari Kay MD Primary Care Provider [phone] Allergies No known active allergies Medications topiramate (TOPAMAX) 50 mg tablet Take 50 mg by mouth daily. Active butalbital-aceta minophen-caff (FIORICET, ESGIC) 50-325-40 mg per tablet Take 1 tablet by mouth every 4 (four) hours as needed for headaches. Active fluticasone propion-salmeter ol (ADVAIR) 100-50 mcg/dose DISKUS Inhale 1 puff 2 (two) times a day. Active calcium carbonate (OS-HOLLIE) 600 mg (1,500 mg) tablet Take 600 mg by mouth 2 (two) times a day with meals. Active cholecalciferol, vitamin D3, 400 units tablet Take 400 Units by mouth daily. Active meloxicam (MOBIC) 7.5 mg tablet Take 7.5 mg by mouth daily. Active ferrous sulfate 325 (65 FE) mg tablet Take 1 tablet by mouth daily. 0 07/13/2018 Active HYDROcodone-acet aminophen (NORCO) 10-325 mg per tablet Take 1 tablet by mouth every 6 (six) hours as needed. 07/21/2018 Active losartan-hydroCH LOROthiazide (HYZAAR) 100-12.5 mg per tablet Take 1 tablet by mouth daily. 0 07/17/2018 Active Active Problems Problem Noted Date Diagnosed Date Primary osteoarthritis of right knee 07/26/2018 Osteoarthritis of left knee 06/22/2017 Social History Tobacco Use Types Packs/Day Years Used Date Smoking Tobacco: Never Smokeless Tobacco: Never Alcohol Use Standard Drinks/Week Comments Yes 0 (1 standard drink = 0.6 oz pur e alcohol) weekly Childcare Answer Date Recorded Childcare Unknown 08/23/2018 Employment Answer Date Recorded Employment Unknown 08/23/2018 Purpose - Life Answer Date Recorded Purpose and direction in life Unknown Comments No Sex and Gender Information Value Date Recorded Sex Assigned at Not on file Legal Sex Female 11:39 AM EDT Gender Identity Not on file Sexual Orientation Not on file Last Filed Vital Signs Vital Sign Reading Time Taken Comments Blood Pressure 129/50 10/04/2023 8:45 AM EDT Pulse 74 10/04/2023 8:45 AM EDT Temperature 36.4 C (97.5 F) 07/26/2018 11:56 PM EDT Respiratory Rate 16 07/26/2018 11:56 PM EDT Oxygen Saturation 96% 07/26/2018 11:56 PM EDT Inhaled Oxygen Concentration - - Weight 54 kg (119 lb) 10/04/2023 8:45 AM EDT Height 149.9 cm (4' 11 ) 10/04/2023 8:45 AM EDT Body Mass Index 24.04 10/04/2023 8:45 AM EDT Plan of Treatment Health Maintenance Due Date Last Done Comments Depression Screening 1957 Tobacco Screening 1957 Fall Risk Screening 2009 COVID-19 Vaccine (6 - 4-2 5 season) 2023 12/23/2022, 03/30/2022, 01/08/2021, Additional history exists Influenza Vaccine 11/12/2024 12/23/2022, , 12/16/2020, Additional history exists DTaP,Tdap and Td Vaccines (2 - Td or Tdap) 11/18/2026 11/18/2016 Zoster (Shingles) Vaccine Completed 2019, 11/13/2019, 11/12/2019 Medical Devices Implanted Type Area Family Service Counselor Device Identifier Shelf Expiration Date Model / Serial / Lot Cement Bn [place] Radpq 40g Rpl [id number] - Sna - [id number] Implanted:Qt y: 1 on 06/22/2017 by Ede Ramos DO at [facility] Cement Left: Knee [employer] 02/10/2022 [id number] 1 / NA / [id number] Cmnt Bn Bio 40 Rpl [id number] - Sna - [id number] Implanted:Qt y: 1 on 07/26/2018 by Ede Ramos DO at [facility] Cement Right: Knee [employer] 08/11/2022 [id number] / NA / [id number] Ins Tib C 8mm Kn Lt Mdl - Sna - [id number] Implanted:Qt y: 1 on 06/22/2017 by Ede Ramos DO at [facility] Orthopedic Implant Left: Knee [employer] [id number] 11/11/2021 [id number] / NA / [id number] Cmpt Fem 1 Kn Lt Mdl Persona - Sna - [id number] Implanted:Qt y: 1 on 06/22/2017 by Ede Ramos DO at [facility] Orthopedic Implant Left: Knee [employer] [id number] 06/11/2026 [id number] / NA / [id number] Cmpt Fem 2 Kn Persona Strl - Sna - [id number] Implanted:Qt y: 1 on 07/26/2018 by Ede Ramos DO at [facility] Orthopedic Implant Right: Knee [employer] 07/11/2026 [id number] 2 / NA / [id number] Ins Tib D 8mm Kn Rt Mdl - Sna - [id number] Implanted:Qt y: 1 on 07/26/2018 by Ede Ramos DO at [facility] Orthopedic Implant Right: Knee [employer] 08/11/2021 [id number] 8 / NA / [id number] Bsplt Tib C Kn Lt Mdl Persona - Sna - [id number] Implanted:Qt y: 1 on 06/22/2017 by Ede Ramos DO at [facility] Plate Left: Knee [employer] 12/11/2026 [id number] / NA / [id number] Bsplt Tib D Kn Persona Strl - Sna - [id number] Implanted:Qt y: 1 on 07/26/2018 by Ede Ramos DO at [facility] Plate Right: Knee [employer] 09/10/2026 [id number] 2 / NA / [id number] Tip Insrtr Personcarmelina Brng Disp - Sna - [id number] Implanted:Qt y: 1 on 06/22/2017 by Ede Ramos DO at [facility] Left: Knee [employer] 12/11/2021 [id number] 1 / NA / [id number] Explanted Type Area Family Service Counselor Device Identifier Shelf Expiration Date Model / Serial / Lot Scr Gd 27mm Mqd Spr Hex Hd - Sna - [id number] Explanted:Qty: 1 on 06/22/2017 by Ede Ramos DO at [facility] Screw Left: Knee [employer] [id number] 09/10/2026 [id number] / NA / [id number] Scr Gd 48mm Qd-Spr Kn Hd Mis - Sna - [id number] Explanted:Qty: 1 on 06/22/2017 by Ede Ramos DO at [facility] Screw Left: Knee [employer] [id number] 06/12/2027 [id number] / NA / [id number] Scr Gd 48mm Qd-Spr Kn Hd Mis - Sna - [id number] Explanted:Qty: 1 on 06/22/2017 by Ede Ramos DO at [facility] Screw Left: Knee [employer] [id number] 06/12/2027 [id number] / NA / [id number] Scr Gd 48mm Qd-Spr Hex Hd Mis - Sna - [id number] Explanted:Qty: 2 on 07/26/2018 by Ede Ramos DO at [facility] Screw Right: Knee [employer] 06/11/2028 [id number] / NA / [id number] Scr Gd 33mm Hex Hd Mis - Sna - [id number] Explanted:Qty: 1 on 07/26/2018 by Ede Ramos DO at [facility] Screw Right: Knee [employer] 01/12/2028 [id number] / NA / [id number] Insurance * Guarantor: Radha Cuadra Account Type Relation to Patient Date of Phone Billing Address Personal/Family Self 1945 [address] [place] [address] [facility] MEDIC[facility] Care Teams Prep Person Relationship Specialty Start Date End Date Shari Kay MD [address] [place] [address] PCP - General Family Medicine 06/03/17
--- OUTSIDE RECORDS SUMMARY | 2024-09-26 08:29 | XMS_ITS | Encounter Summary ---
Author Organization [facility] Address [address] [place] [address] Care Team Providers Care Bag Loader Name Role Phone Tamara Aparicio BILLIARD TABLE REPAIRER Unavailable [phone] Shari Kay MD Primary Care Provider [phone] Encounter Details Date Type Department Care Team (Late st Contact Info) Description 07/30/2022 Abstract [facility] [address] [place] [id number] Ede Ramos DO [address] [place] [address] Social History Tobacco Use Types Packs/Day Years Used Date Smoking Tobacco: Never Tobacco Cessation:Counseling Given: Not Answered Alcohol Use Standard Drinks/Week Comments Yes 14 [...] 2:00 PM EDT Office Visit [facility] [address] [place] [address] China Ortiz NP [address] [place] [address] documented as of this encounter Visit Diagnoses Not on filedocumented in this encounter Care Teams Bag Loader Relationship Specialty Start Date End Date Tamara Aparicio NP [address] [id number] PCP - Cristobal FIGUEROA 03/21/21 06/11/24 Shari Kay MD [address] [place], [place] [id number] PCP - General Family Medicine 07/26/22 documented as of this encounter
--- NOTE | 2024-09-26 08:39 | PM.CN ---
Consult Note: HPI Data of Consult Patient: known to practice within the last 3 years Consult date: 09/26/24 Requesting Physician: Concha Lopez NP Primary Care Provider: KELLY MCKEON Consult Narrative Narrative: 79yof who presents for assessment. advanced imaging completed which shows multilevel facet arthropathy in thoracic and lumbar spine. has continued to engage in a series of provider directed home exercises >6 weeks, without lasting benefit. uses otc pain meds as needed and tylenol #3 BID PRN. denies adverse med side effects. pain minimal at this time increasing to 10/10 at times with baking, notes aching pain. cc:: CC: Concha Lopez NP [facility] Medical History Osteoarthritis ?M19.90 - Unspecified osteoarthritis, unspecified site (ICD-10) Heart murmur ?R01.1 - Cardiac murmur, unspecified (ICD-10) Surgical History History of total shoulder replacement ?Z96.619 - Presence of unspecified artificial shoulder joint (ICD-10) History of total knee arthroplasty ?Z96.659 - Presence of unspecified artificial knee joint (ICD-10) History of carpal tunnel release ?Z98.890 - Other specified postprocedural states (ICD-10) Meds Home Medications and Allergies Home Medications ?Medication ?Instructions ?Recorded ?Confirmed ?Type calcium 600 mg (as 1 tab PO BID 07/11/23 02/20/24 History carbonate)-vitamin D3 5 mcg (200 unit) tablet (Calcium 600 + D(3)) losartan 100 mg tablet 100 mg PO DAILY 07/11/23 02/20/24 History multivitamin-ferrous 1 tab PO DAILY 07/11/23 02/20/24 History fumarate-folic acid 18 mg-400 mcg tablet (Centrum Women) trazodone 50 mg tablet 50 mg PO DAILY 07/11/23 02/20/24 History acetaminophen 300 mg-codeine 30 mg 1 tab PO BID PRN pain #60 tabs 01/11/24 02/20/24 Rx tablet albuterol 90 mcg/actuation aerosol mcg inhalation BID 02/01/24 History inhaler acetaminophen 300 mg-codeine 30 mg 1 tab PO BID PRN pain #60 tabs 02/23/24 Rx tablet acetaminophen 300 mg-codeine 30 mg 1 tab PO BID PRN pain #60 tabs 03/28/24 Rx tablet baclofen 10 mg tablet See Rx Instructions .Route 03/28/24 Rx .COMPLEX #60 tabs acetaminophen 300 mg-codeine 30 mg 1 tab PO BID PRN pain #60 tabs 06/25/24 Rx tablet acetaminophen 300 mg-codeine 30 mg 1 tab PO BID PRN pain #60 tabs 09/17/24 Rx tablet Allergies Allergy/AdvReac Type Severity Reaction Status Date / Time No Known Drug Allergies Allergy Verified 02/20/24 08:53 Exam Constitutional Documenting provider has reviewed patient's vital signs: yes Common normals: no apparent distress, oriented x3, healthy appearing, alert and well nourished General appearance: cooperative HENMT Common normals: normocephalic, hearing grossly normal bilaterally and moist oral mucous membranes Head and scalp: normocephalic Eye Common normals: PERRL Pupil: PERRL Neck & C-Spine Common normals: full ROM General: normal visual inspection Chest Common normals: inspection of chest normal Respiratory Common normals: normal respiratory effort, no retractions and no use of accessory muscles Back & Pelvis Thoracic spine/upper back: ROM limited, pain with ROM and thoracic spinal tenderness T-spine tenderness location: T5, T6 and T7; no paraspinal muscle spasm Other: negative facet loading no tenderness over T10-L2 facets no radiculopathy on exam strength 5/5 in BLE Neuro Common normals: oriented x3 Sensorium/orientation: alert Motor exam: strength 5/5 throughout and no movement abnormalities noted Psych Common normals: mental status grossly normal, thought process normal, cooperative, affect normal, speech normal and activity/motor behavior normal Speech: normal speech Thought process: normal thought process Results Additional Findings Additional findings: If on a controlled substance or opioids, I have checked an [place] report on this patient and there are no aberrancies noted in the prescribing history.??If on a controlled substance or opioid a drug screen was completed and reviewed within the last year, and if there has not been a drug screen completed we ordered one today to monitor higher risk, state monitored pain medication use. As part of providing excellent, safe, comprehensive care, the following was completed at our patient's visit: 1. A medication reconciliation and review to ensure accurate knowledge of current/active medications, including asking our patients to inform us about any igpu-dyn-ofqnpuo medications or herbal remedies/nutritional supplements/alternative remedies. 2. A review to specifically ensure our patients have had annual screening for screening for depression, screening for tobacco use, and screening for unhealthy alcohol use. For concerning screenings had a discussion with the patient, provided patient education, and recommended follow-up with primary care provider when appropriate. If patient noted with a risk of falling, they received education on strength, gait, and balance training to prevent future risk of falling. Portions of this note may have been carried over from the previous visit and updated as appropriate. Please note this office utilizes paper charting in addition to the electronic medical record. A list of current medications, vitals, and PMH is available there as the clinical staff outside of myself do not have access to Pins charting during the clinic day operations. As part of providing quality comprehensive care the current medications, vitals, and PMH were reviewed in the paper chart. Assessment and Plan Assessment and Plan (1) Thoracic spondylosis: (2) Thoracic back pain: (3) Lumbar spondylosis: (4) Chronic use of opiate drug for therapeutic purpose: Plan risks vs benefits reviewed, increase tylenol #3 1-2 tabs BID PRN moderate to severe pain 75 tabs for 30 days continue trazodone 50mg HS, can discuss alternative sleep aids with PCP. cannot take benzodiazepines as discussed continue baclofen 10mg HS PRN pain/spasms f/u 1 month to evaluate medication changes
== END 2024-09-26 08:27 | disposition home or self-care (01) ==
LOC: PM 08:27
PROVIDERS: PCP Family Medicine; Visit Provider Nurse Practitioner
DX: M47.814 Spondylosis without myelopathy or radiculopathy, thoracic region (principal); M54.6 Pain in thoracic spine; M47.816 Spondylosis without myelopathy or radiculopathy, lumbar region; Z79.891 Long term (current) use of opiate analgesic
CPT/HCPCS: G0463

== ENCOUNTER 2024-10-05 08:12 | Emergency (ER) | payer MEDICARE, SELFPAY ==
[2024-10-05 08:18] VITALS: BP 145/72; PULSE 76; TEMP 36.6; O2SAT 95; BMI 21.8
--- OUTSIDE RECORDS SUMMARY | 2024-10-05 08:33 | XMS_ITS | CCD ---
Author Organization [facility] Care Team Providers Care Media Relations Director Name Role Phone PHYSICIAN, DEFAULT Admitting Unavailable [...] Unavail able Ede Ramos Attending Unavail able HSARI MCKEON Primary Care Unavailable Ede Ramos Admitting Unavail able Ede Ramos Attending Unavail able Alessandra ASSISTANT PROFESSOR OF ENGLISH, Alexander Plascencia Unavailable Shari Mckeon MD Primary Care Provider Jovi JAIMES, Kei Brian Attending Unavailable Jovi JAIMES, Kei Brian Attending Unavailable Giedraitis , Andnaina Brian Attending Unavailable Giedraitis , Andrius Brian Attending Unavailable Giedraitis , Andrius Brian Attending Unavailable Giedraitis , Andrius Brian Attending Unavailable Giedraitis , Andrius Brian Attending Unavailable Giedraitis , Andrius Brian Attending Unavailable Giedraitis , Andrius Brian Attending Unavailable Giedraitis , Andnaina Brian Attending Unavailable KAMYAMILEX, CHINA Attending Unavailable CHINA ORTIZ Attending Unavailable SHARI MCKEON Referring Unavailable ROGER VASQUEZ Attending Unavailable ALEXANDER APARICIO Referring Unavailab SHARI Carvalho Primary Care Unavailable SHARI MCKEON Referring Unavailable SHARI MCKEON Primary Care Unavailable Allergies Allergy Classification Reported Allergen(s) Allergy Type Date of Onset Reaction(s) Facility (2 sources) Alendronate; Translations: [Fosamax] Drug Allergy [facility] Repository (20 sources) Alendronate Drug Allergy 09-10-2020 Unknown [facility] Medications Current Medications Medication Drug Class(es) Dates Sig (Normalized) Sig (Original) acetaminophen 325 mg / butalbital 50 mg / caffeine 40 mg oral tablet (20 sources) Barbiturate, Central Nervous System Stimulant, Methylxanthine take 1 tablet by mouth every four hours as needed butalbital-acetamin ophen-caffeine 50-325-40 MG tablet Take 1 tablet by mouth every 4 (four) hours if needed (headache). Active acetaminophen 300 mg / codeine phosphate 30 mg oral tablet (7 sources) Opioid Agonist Start: 03-28-2024 take 1 [...] 05/04/2023 Active atorvastatin 20 mg oral tablet (20 sources) HMG-CoA Reductase Inhibitor Start: 09-28-2023 take 1 tablet by mouth once daily atorvastatin (Lipitor) 20 MG tablet Indications: Mixed hyperlipidemia take 1 tablet by mouth once [...] 0 04/18/2023 04/23/2023 Active CALCIUM-VITAMIN D PO (20 sources) Start: 06-29-2022 CALCIUM-VITAMI N D PO [...] / salmeterol 0.05 mg/actuat dry powder inhaler (20 sources) Corticosteroid, beta2-Adrenergic Agonist Start: 02-07-2024 End: 04-05-2024 take 1 puff(s) by inhalation in the morning Fluticasone-Salme terol 250-50 MCG/ACT aerosol powder Indications: Mild intermittent asthma, unspecified whether complicated (HCC) Inhale [...] / losartan potassium 100 mg oral tablet (20 sources) Thiazide Diuretic, Angiotensin 2 Receptor Aguilar Start: 05-21-2024 take 1 tablet by mouth in the morning losartan-hydroCHLOROthiazide (Hyzaar) 100-12.5 MG tablet Indications: Essential hypertension Take 1 tablet by mouth in the morning. 100 tablet 05/21/2024 Active Start: 03-19-2024 take 1 tablet by abhinav th once [...] 01/18/2023 04/21/2023 Discontinued Multiple Vitamin (multivitamin) capsule (20 sources) take 1 capsule by mouth in the morning Multiple Vitamin (multivitamin) capsule Take 1 capsule by mouth in the morning. Active take 1 capsule by mouth in the m orning Multiple Vitamin (multivitamin) capsule Take 1 capsule by mouth in the morning. 0 Active ondansetron 4 mg oral tablet (7 sources) Serotonin-3 Receptor Antagonist Start: 04-24-2024 take [...] Active traZODone hydrochloride 50 mg oral tablet (20 sources) Serotonin Reuptake Inhibitor Start: 09-26-2023 End: [...] asthmaticus] Onset: 06-12-2017 Resolved: 06-17-2023 07-15-2022 Chronic Cardiac dysrhythmias (3 sources) Irregular heart beat; Translations: [Cardiac arrhythmia, unspecified] Onset: 09-27-2024 09-26-2024 Chronic Chronic kidney disease (20 sources) Chronic kidney disease stage 3B ; Translations: [Stage 3b chronic kidney disease (HCC)] Onset: 07-15-2022 07-15-2022 Chronic Chronic obstructive pulmonary disease and bronchiectasis (20 sources) Chronic obstructive pulmonary disease, unspecified; Translations: [...] dermatophyte ; Translations: [Tinea unguium] 01-24-2024 Episodic Osteoarthritis (20 sources) Unspecified osteoarthritis, unspecified site; Translations: [Arthritis of left knee] Onset: 06-22-2017 Resolved: 06-17-2023 07-15-2022 Chronic Osteoporosis (20 sources) Senile osteoporosis; Translations: [Age-related osteoporosis without current pathological fracture] Onset: 11-04-2017 Resolved: 06-17-2023 07-15-2022 Chronic Other connective tissue disease (20 sources) Artificial knee joint present; Translations: [Presence [...] 06-17-2023 07-15-2022 Chronic Other lower respiratory disease (4 sources) Dyspnea; Translations: [Shortness of breath] 09-26-2024 Episodic Other nervous system disorders (20 sources) Difficulty walking; Translations: [Difficulty in walking, not elsewhere classified] Onset: 07-15-2022 07-15-2022 Chronic Other nervous system disorders (20 sources) Chronic pain; Translations: [Other chronic pain] [...] [Ingrowing nail] 01-24-2024 Episodic Residual codes; unclassified (20 sources) Insomnia; Translations: [Other insomnia] Onset: 07-15-2022 3 Chronic Past or Other Problems Problem Classification Problem Date Documented Da te Episodic/Chronic Fever of unknown origin (4 sources) Fever, unspecified; Translations: [FEVER UNSPECIFIED] Onset: 01-02-2020 Episodic Fluid and electrolyte disorders (1 source) Dehydration; Translations: [DEHYDRATION] Onset: 01-04-2020 Episodic Gastritis and duodenitis (20 sources) Gastritis, unspecified, without bleeding; Translations: [Bile-induced gastritis] Onset: 02-14-2020 Resolved: 06-17-2023 07-15-2022 Episodic Heart valve disorders (20 sources) Systolic murmur; Translations: [Cardiac murmur, unspecified] Onset: 07-15-2022 Resolved: 06-17-2023 07-15-2022 Episodic Immunizations and screening for infectious disease (1 source) Contact with and (suspected) exposure to other viral communicable diseases; Translations: [CONTCT EXPS OTH VIRL COMMUNICABL DZ] Onset: 01-30-2020 Episodic Mood disorders (19 sources) Mood disorders Onset: 06-17-2023 06-17-2023 Nonspecific chest pain (1 source) Chest pain, unspecified; Translations: [Chest pain, unspecified] Onset: 10-04-2023 Episodic Other aftercare (1 source) Other continuous churn buttermaker (current) drug therapy; Translations: [OTH BURGLAR ALARM SUPERINTENDENT CURRENT DRUG THERAPY] Onset: 02-14-2020 Episodic Other aftercare (1 source) continuous churn buttermaker (current) use of aspirin; Translations: [SENIOR LIVING CURRENT USE OF ASPIRIN] Onset: 01-04-2020 Episodic Other gastrointestinal disorders (4 sources) Dysphagia, unspecified; Translations: [DYSPHAGIA UNSPECIFIED] Onset: 02-01-2020 Episodic Other gastrointestinal disorders (20 sources) Dysphagia; Translations: [Dysphagia, unspecified] Onset: 07-15-2022 Resolved: 06-17-2023 07-15-2022 Episodic Other lower respiratory disease (5 sources) Shortness of breath; Translations: [SHORTNESS OF BREATH] Onset: 09-30-2020 Episodic Other lower respiratory disease (1 source) Cough; Translations: [COUGH] Onset: 01-04-2020 Episodic Other non-traumatic joint disorders (20 sources) Derangement of left shoulder joint; Translations: [Other specific joint derangements of left shoulder, not elsewhere classified] Onset: 07-15-2022 Resolved: 06-17-2023 07-15-2022 Chronic Residual codes; unclassified (20 sources) Poor sleep pattern; Translations: [Other sleep disorders] Onset: 08-21-2020 Resolved: 06-17-2023 08-03-2022 Chronic Residual codes; unclassified (20 sources) Postmenopausal state; Translations: [Asymptomatic menopausal state] Onset: 06-28-2015 Resolved: 06-17-2023 08-03-2022 Episodic Unclassified (1 source) Moderate aortic regurgitation 10-01-2024 Unclassified (1 source) Mild aortic stenosis 10-01-2024 Urinary tract infections (1 source) Urinary tract infection, site not specified; Translations: [UTI SITE NOT SPECIFIED] Onset: 01-04-2020 Episodic Results Test Name Value Interpretation Reference Range Facility MR Thoracic spine WO contras ton 06-06-2024 [place] [address] Magnetic Resonance Report Signed Patient: RADHA CUADRA MR#: [id number] : 1945 Acct:[id number] Age/Sex: 79 / F ADM Date: 06/06/24 Loc: MRI Attending Dr: Rinku Lopez NP Ordering Physician: Rinku Lopez NP Date of Service: 06/06/24 Procedure(s): MR thoracic spine wo con Accession Number(s): [id number] cc: Rinku Lopez NP; SHARI MCKEON [place] [id number] Patient Name: RADHA CUADRA MRN: [id number] date: 1945 Sex: F Assigned Patient Location: MRI Current Patient Location: MRI Accession/Order Number: [id number] Exam Date: 06/06/2024 14:56 Report Date: 06/06/2024 14:58 At the request of: RINKU LOPEZ NP Procedure: MR thoracic spine wo con MRI of the thoracic spine without IV contrast. Reason for exam: Chronic back pain without injury. COMPARISON: Thoracic spine series 12/14/2023 TECHNIQUE: Multisequence, multiplanar imaging of the thoracic spine was obtained without the use of IV contrast. FINDINGS: Vertebral body heights appear maintained. Endplate degenerative changes are noted. No bone marrow edema is seen. No significant canal or neural foraminal stenosis is noted. No significant posterior disc pathology. No paraspinal mass. No abnormal cord signal. MR/MR thoracic spine wo con IMPRESSION: Degenerative changes involving the thoracic spine without vertebral body height loss, significant canal or neural foraminal stenosis. Impression dictated by: Alejandro Gomez Jr., D.O.06/06/2024 2:58 PM Dictation Location: [place] [address] Electronically authenticated by: [id number] Y Date: 06/06/2024 14:58 Dictated By: Alejandro Gomez M.D. Signed By: 06/06/24 1501 DD/ 1458 TD/TT: Yeast Stacker: [facility] Radiology, Radiologingrid barksdale MD - 06/06/2024 [place] [address] Magnetic Resonance Report Signed Patient: RADHA CUADRA MR#: [id number] : 1945 Acct:[id number] Age/Sex: 79 / F ADM Date: 06/06/24 Loc: MRI Attending Dr: Rinku Lopez NP Ordering Physician: Rinku Lopez NP Date of Service: 06/06/24 Procedure(s): MR thoracic spine wo con Accession Number(s): [id number] cc: Rinku Lopez NP; SHARI MCKEON [place] [address] Patient Name: RADHA CUADRA MRN: [facility]:[id number] date: 1945 Sex: F Assigned Patient Location: MRI Current Patient Location: MRI Accession/Order Number: [id number] Exam Date: 06/06/2024 14:56 Report Date: 06/06/2024 14:58 At the request of: RINKU LOPEZ NP Procedure: MR thoracic spine wo con MRI of the thoracic spine without IV contrast. Reason for exam: Chronic back pain without injury. COMPARISON: Thoracic spine series 12/14/2023 TECHNIQUE: Multisequence, multiplanar imaging of the thoracic spine was obtained without the use of IV contrast. FINDINGS: Vertebral body heights appear maintained. Endplate degenerative changes are noted. No bone marrow edema is seen. No significant canal or neural foraminal stenosis is noted. No significant posterior disc pathology. No paraspinal mass. No abnormal cord signal. MR/MR thoracic spine wo con IMPRESSION: Degenerative changes involving the thoracic spine without vertebral body height loss, significant canal or neural foraminal stenosis. Impression dictated by: Alejandro Gomez Jr., D.O.06/06/2024 2:58 PM Dictation Location: [employer] Electronically authenticated by: [id number] Y Date: 06/06/2024 14:58 Dictated By: Alejandro Gomez M.D. Signed By: 06/06/24 1501 DD/ 1458 TD/TT: Yeast Stacker: [facility] Study observation (narrative) [facility] [employer] MR Thoracic spine WO contras tOrdered By: Radiologist Radiology on 06-06-2024 [facility] [employer] Work Phone: BI MAMMOGRAM SCREENING TOMOS YNTHESIS BILATERALon 12-28-2023 [...] BY: Jayant Peters M.D. Normal Not Available Consent Formson 07-27-2022 Consent Forms [id number]#[facility] Discharge Instructions [id number]#1.00[facility] MAGR Intraoperative Recordon 07-27-2022 MAGR Intraoperative Record MAGR Intra-Op Record Summary Primary Physician: Ede Ramos DO Finalized Date/Time: 07/27/22 09:45:04 Pt. Name: RADHA CUADRA BRAD Dangelo/Sex: 1945 FEMALE Med Rec #: [id number] Physician: Ede Ramos DO Financial #: [id number] Pt. Type: D Room/Bed: / Admit/Disch: 07/26/22 [...] Role Performed Surgeon - Primary Anesthesiologist of Commissioned Police Officer Record Time In 07/26/22 07:39:00 07/26/22 07:39:00 07/26/22 07:39:00 Time Out 07/26/22 09:49:00 07/26/22 09:49:00 07/26/22 09:49:00 Procedure Arthroplasty Shoulder Arthroplasty Shoulder Arthroplasty Shoulder Total Reverse(Left) Total Reverse(Left) Total Reverse(Left) Last Modified By: Mode RN, Jania Coello RN, Jania Conde RN 07/26/22 09:49:54 07/26/22 09:49:54 07/26/22 09:49:54 Entry 4 Entry 5 Entry 6 Case Attendee Fahad CORRECTIONAL CASE RECORDS SUPERVISOR, Paulina CORRECTIONAL CASE RECORDS SUPERVISOR Lisa Antony CST, CST/CSFAZOE CORRECTIONAL CASE RECORDS SUPERVISOR Role Performed Scrub Personnel Scrub Personnel Agricultural Lender Time In 07/26/22 07:39:00 07/26/22 07:39:00 07/26/22 07:39:00 Time Out 07/26/22 09:49:00 07/26/22 09:49:00 07/26/22 09:49:00 Procedure Arthroplasty Shoulder Arthroplasty Shoulder Arthroplasty Shoulder Total Reverse(Left) Total Reverse(Left) Total Reverse(Left) Last Modified By: Mode GOLDMAN, Jania Coello RN, Jania Conde RN 07/26/22 09:49:54 07/26/22 09:49:54 07/26/22 09:49:54 General Comments: Nicholas Gan - Arthrex rep Surgical Procedures MAGR Pre-Care Text: A.20 Verifies operative procedure, surgical site, and laterality Im.150 Develops individualized plan of care Entry 1 Procedure Arthroplasty Shoulder Primary Procedure Yes Total Reverse Primary Surgeon Ede Ramos Modifiers Karen Calderon DO Surgeon Comment LEFT REVERSE TOTAL Start [...] sources (more content not included)... [facility] Outside Recordson 07-27-2022 Outside Records [id number]#1.00[facility] Provider Orderson 07-27-2022 Provider Orders [id number]#1.00[facility] Telemetry Stripson Telemetry Strips [id number]#1.00[facility] Anesthesia Noteon 07-26-2022 Anesthesia Note Patient: [...] EDT] Remy Da Silva MD [facility] Anesthesia Note Patient: RADHA CUADRA Age: 77 [...] obstructive pulmonary disease (COPD) / SNOMED CT 27510529 / Confirmed Heart murmur / SNOMED CT 340575431 / Confirmed Hyperlipidemia / SNOMED CT 52914640 / Confirmed HTN (hypertension) / SNOMED CT 9303624936 / Confirmed Histories Family History: COPD Mother Father Procedure history: Arthroplasty of left knee (5867896098). Arthroplasty of right knee (7686092097). Carpal tunnel release (952976175). Comments: 06/29/2022 13:15 Dorota De Leon RN bilat Colonoscopy (058113612). EGD - Esophagogastroduodenoscopy (8149124211). Disorder of rotator cuff (9845835846). Comments: 06/29/2022 13:14 Dorota De Leon RN [...] Oriented. Review / Management Laboratory Results Plan [place] [employer]esthesi[employer]#(ASA) physical status classification: Class [...] EDT] Remy Da Silva MD [facility] Inpatient Patient Summaryon 07-26-2022 [place]patient [place] [address] Patient Discharge Instructions Name: RADHA CUADRA : 1945 Patient Address: [address] [place] [address] [place] [address] Primary Care Provider: Name: SHARI MCKEON After you are discharged if you find you have any questions, please, call [phone] ext [phone] to speak to a nurse. Discharge Diagnosis: [...] drug addiction problems; contact the [facility] 04/10 Crisis Hotline -Text 4HMEE lf 644178. If you received any narcotics, sedation, or [...] business decisions or sign any legal documents [facility] would like to thank you for allowing us to assist you with your healthcare needs. The following includes patient education materials and information regarding your injury/illness. RADHA CUADRA has been given the following list of follow-up instructions, prescriptions, and patient education materials: Follow-up Instructions With: Address: When: Ede Ramos [address] [place] [address], [address] [place] [address] Business (1) 08/03/2022 11:00 AM Medications During [...] fingers frequently (more content not included)... Normal [facility] MAGR Intraoperative Recordon 07-26-2022 MAGR Intraoperative Record MAGR Intra-Op Record Summary Primary Physician: Finalized Date/Time: 07/26/22 07:42:32 Pt. Name: RADHA CUADRA/Sex: 1945 FEMALE Med Rec #: [id number] Physician: Ede Ramos DO Financial #: [id number] Pt. Type: D Room/Bed: / Admit/Disch: 07/26/22 [...] Warga, Laura RN Role Performed Anesthesiologist of Commissioned Police Officer Commissioned Police Officer Record Time In 07/26/22 07:13:00 07/26/22 07:13:00 07/26/22 07:13:00 Time Out 07/26/22 07:38:00 07/26/22 07:38:00 07/26/22 07:38:00 Procedure Interscalene Block(Left) Interscalene Block(Left) Interscalene Block(Left) Last Modified By: Kimberley Le RN, Margaret RN Klaehn, Margaret RN 07/26/22 07:39:31 07/26/22 07:39:31 07/26/22 07:39:31 Entry 4 Case Attendee Amy Bates RN Role Performed Commissioned Police Officer Time In 07/26/22 07:13:00 Time Out [...] Agents (Im.270) Chlorhexidine Gluconate Prep By Remy DaS ilva MD and Alcohol Prep Area (Im.270) Shoulder, [...] Destinat (more content not included)... [facility] MAGR PACU Recordon MAGR PACU Record MAGR PACU Record Talib carrington Primary Physician: Ede Ramos DO Finalized Date/Time: 07/26/22 10:38:28 Pt. Name: RADHA CUADRA/Sex: 1945 FEMALE Med Rec #: [id number] Physician: Ede Ramos DO Financial #: [id number] Pt. Type: D Room/Bed: / Admit/Disch: 07/26/22 05:52:10 - Institution: PACU Case Times MAGR Entry 1 In PACU I 07/26/22 09:51:00 Discharge from PACU 07/26/22 10:35:00 I Last Modified By: Warner Bolton RN 07/26/22 10:38:23 Finalized By: Warner Bolton RN Document Signatures Signed By: Warner Bolton RN 07/26/22 10:38 [facility] MAGR Postoperative Record MAGR Phase II Record Summary Primary Physician: Ede Ramos DO Finalized Date/Time: 07/26/22 12:01:17 Pt. Name: RADHA CUADRA/Sex: 1945 FEMALE Med Rec #: [id number] Physician: Ede Ramos DO Financial #: [id number] Pt. Type: D Room/Bed: / Admit/Disch: 07/26/22 [...] Signed By: Annamarie Samuels RN 07/26/22 12:01 [facility]-2022 [facility] Preoperative Record MAGR Pre-Op Record Summary Primary Physician: Ede Ramos DO Finalized Date/Time: 07/26/22 07:44:03 Pt. Name: RADHA CUADRA./Sex: 1945 FEMALE Med Rec #: [id number] Physician: Ede Ramos DO Financial #: [id number] Pt. Type: D Room/Bed: / Admit/Disch: 07/26/22 [...] consent correct. General Comments: Pt arrives to [facility] ambulatory. Pt denies cp, sob, cough or flu like symptoms. She also pacemaker/defibillator or sleep apnea. Finalized By: Kimberley Le RN Document Signatures Signed By: Kimberley Le RN 07/26/22 07:44 Normal [facility] Operative Report - Surgeon/P pablo [...] Estimated blood loss: 50 Complications: None Findings: Buby-xd-ttux in the glenohumeral joint Procedure summary: Patient [...] on: 07/26/2022 09:35 EDT] Ede Ramos DO [facility] Patient Handouton 07-26-[address] MESSINA [...] or concerns, please call the office at [phone] 7. Follow up as scheduled [facility] XR Shoulder 1 View Lefton XR Shoulder [...] 4:01 pm Technologist: JORDON RUVALCABA [facility] Comment on above: Order Comment: defau lt status post shoulder replacement Progress Note - Nurseon 07-12 Progress Note - Nurse Pre-op call made to pt. Pt states understanding of arrival time of 0600 on 07/26/22 and NPO after MN. [Electronically Signed on: 07/23/2022 09:27 EDT] Shantel Gonsalez RN [Verified on: 07/23/2022 09:27 EDT] Shantel Gonsalez RN [facility] Coding Summaryon 07-02-2022 Coding Summary HTMLBase 64 OiynupnkKMp9rMf+PGhlYWQ+PE1F TEUdY45wqJHyaU4FO5tSNR1THTSD XDMLCK9XWO6ckNS9YYycZ9UcloGg JzhonVXcRD95ECj9IOQ7zKebBWux kR5boNCdE9f4HjHgUX86nI42UGvt BSCkMvC5KyNibpgtfDYk X1reKoVwdSAcDta+PHRhYmxlIHdp NFEeTMnkHECqWxOlzTniHG3dDd5a ZGVyLWNvbGxhcHNlOiBj w9vwAEEgECzgAB0mwNecY3FbqEE7 CJGdf1x9Mp73iNM+SAYjJCH5nXir YQfzv338SmMyl8yuNVH6 qKNoHBdiBLO7B80sw6I9ZLEwHSOp UPC2jCF5iM9atKbxcvhzW5ZkeFZe JcG1RCG7oMKtoO7pwWcx sazrlE8aQro+J04LBN7AZDIFQA8U Nhv0H5MjIuaguYS+YN76XNNxWO10 bSTklJPzw3znfXj8GsKl OTTcFPU0tBenGTyon5CqJYDgS57h pNGja7L1GEJgaQxlhBArKjAvnTN0 eZ0zFIdxjfnpb9sebklf Qzgfy1eexn91dR37T55aVFslARJb LDJ1ACZkVBWxqGkdxd0ixZ0eXp4+ PJqmt3jry7cpfQr7UzMm MPDbljOidXfmMQK4z8RkCk79C9Wo fYzpx9VpSep5ug15lUQwx1J3hFU0 LAupNWFinD6hVIseCrE5 WIXaLkEqnS93lHUnOCfaIy9loIon vAnjFY2yCLSafyoqMEWqjZ3wLWLi dKSnuFguJW3iTOOfdsoy d281HbGuYCI4RNMraEVyV8OitU3b FqRqCQMeYYWrQ9BocJZpUXbuQ240 JFbfXoR3CZBnvhFsN4Nq FRHhjRchXwA2k4L4Vz0Ja9Kxctgo PNM8GDamQCB8IwWoRjLtDdD1G8Bg Dpn6PPBbaAptGT2rK1Zx EYZstzlioeqpjYJ1GJNpKXZzvM29 rRMdJVagCs6dv5D0t389SRTuIIHk dI15Ib0qqBpeOFSdtEHS kW8vdaeke6ykklgbSwMrIRHjMMi2 UQv8QTOsgTtqChOeHEE4JrQ4HXI6 eMBxxF5vcJhpzcusgX6v Oyc+G90xpC6bKLJ8GZQ0nkkqKTUx ynPuMO51RY32I2FzCoctwIPztJI+ LQXwatQynRddMD0xBqWo g6shy0PxQXzgS8VbKUBfCQqmGjw3 UVZySXV1yLA1bX6uEVPbCLamy8G2 zEX5Z7YjadEaac0aq5xd IMNfPFvpE03fiQBuk4T0KZWfuMA0 HEPteHwoXuJioI78Ted+PGNvbGdy b8HwNjgvg7pvk5kvyIy4 LoJtLQLwjxNwmAbhLTW1f4DzXr74 W43fXKshXHCdMKWfAPCxWQApjBna ro1pgS2dBe1+PGNvbCB3 hMP1wC4cMUAkUgU6MPgwN351QvYr bGOzAngsf6dug2gmhZt2LuJuJDGg nsWbrZbdJUO9c4KbMs17 S24hMJbuDKZhMRLdCZEkGSBkcDla fj7weF4jHj5+ZO4ug8mqil78zP01 dHI+FLQyINO0jOfdKCqu AXGsuI6kPSybEfX2MDSsQyTzgV19 mPMrAFwgFf8oqDikxIwyLZ0lTYUc qajvl693MfOch0sqJLLa iKUuDQnlGLQ9H64dd7A1MSSqHUAk TDI1xSC1xA3ljUrcoxvjiMZezMin hsXlaRsvNKckEPqdR544 IHRvcDsnPlBhdGllbnQgTmFtZTo8 V8NxIke7XTSjlNcyZA3arSVoUHxc Ut9jqWkkjPenKN4yFVLi lbekk882PfInu4awASAgvTAcLUgt GDD7O50xf4U3NJNeUFYkGKK6oMM9 yZ3mgUqyqvcpjDXyvNqc zyMdbTgqLBfoIVihF173AZOvvAqs YwTywaWkFUCnwPP9BD43QV48iDKg r3D0iIA9Q2ZmIXJhibhd mwxvpRL6TAXaSSQwlN38Pl9ktMea Oo7lKJXgWFA9EILgiXWqE0PirI6p FyRgNLHjGQTbB9DzmRTa ZGltF946VHuiKdP7MJVidvCfZ6Si ZJRviEvrPwO8d8I9Ql3LM4Q4UF08 BK64jFHmv4Y6xZO0G5Ey PFHbxvuezksveYC7FCEkDZFuoD26 Er5ozFzhXj5qLDSsGSD5RMWkpGSr Y8TcfZ7yDrQsUHIjCAMh T0UotFOkDPdpH114SCviIaQ9NABl kaXqU4KvQMRhbZxaJkU0w1I1So8N YIy4WM89CO20mQRrz1F7 tYJ5Z0ZmIXSdvltophmoaHJ5KUXc ASOfcH43Ta4qiVysYu1pOYUvORQ8 RYFwoRMgW2YvyF1dJpJi ACAuTTPbU1SwpNVaTWwzQ567UOuh ScQ0ZVKtixQcI2HsZGKjhCjzTaY5 n3R3Ty4TWDWeIY05BNA7 wTA0EP33TL64E4ZgDyvvdXCfqGZ+ PHRhYmxlIHdpZHRoPScxMDAlJyBz wRiuBO6oTo7cGVTdHOVd iTagnJTwQpAbr6gjVEVgYIsrPO3q lBcbE9WqqNH7DVHpi9b9Gp18P11r W7PdxDL+CBBdnND1oPM7 zJ8mFkCtBeN0TVevS929PwIbsGJo Slpas7npo9yawGl9QvJ5ILDkgeXj fIwsMEQ5r1MaFp91U95o PMyeMDLtNEBhJFXsLLMlsQkekb0r sI6mOk3+IEPqhBE0rVF3oD8gRaLt XrY8QDkqW624BiDwyQEk Yxuro4fzu7ojdBp4JjXnKQVvdaFi bRyiZCO4w9AsGh49T8TahHsvr2Cx Jqq4tr95xIVct2V7vQT1 R5PqDQBfftullRVwhTzgSC7cLXQf qmcqIUWkkF4sSNYkG3a2DhJpTtH1 THcvI3RpcrL2BQSemSFp HGkaZMU3L45pv9B7YWLtLGYuQDI3 yVE6kY3uwKgnifkqsACpgPsmexJf kItpWVswNAteA827UNWq gDgdWKOenA1xANEijGQjtUivOP5h CMXtyogdOsnOVKWeBGqXEYtjVW0B VHt8X4IiUqs2AFChvFrq ZV0hqPIzFZmaPx3hkPatrQayAQ2h POWoaxkzIRQesM3nOBRcwZBymDwc MF3nNWOhpvoul703KaKp OVQ8RJTifPPiL4MjuZ3aBsCjLWEf LPDvD2MqzEFqAOciO384GJgbNdZ5 XZHbttYjB0RjHXDebBdh LgC2u4B6Wj3oYe8vOq5wBCW9HI37 ZX90tZNkc8E7wWJ6D8OaKPFkkoze kivhzEV3WZEtPGVbiL45 iNQnSLdwPs4tv7G3d433JCMfDPWq gM11Od1bmGosDJFykMQSkN5ahpac n8xikobpVmPyXFBqFPg1 HGc5EDIriFpxHbTpVTS2OrH2ADZ9 nEQhbB0cqQumixencY3yKni+Nzgg ZWNhxrK3X1UmImf9VCNi bNmhCI7moBEuLRbhLj1fwTrwcGvc FB6uUFGxzrvmVDQtcF6dSJNixRHv aXquAK9iHURlcvsaa229 UfMdKQW0AVLmjPZeI5TneU0aWtRl GIKhCXLwQ4JolVObSJrkA037OSrm FnI1FIVlrfNgL7FiUJXd wDosKwW4v4V5Yh6KOE4XPSN2S9Ph Tbk7BBObiAtxXW7yxXWuXVsxGm8n zBfhrYraTB9vWTRwepyo ZMRxsM9nVEGctYNgeTqdEA5fDVIs rvgzx092LxOfWUM6NLDxwAPvC3Sp qM4bEkGvESUuWJXzK4Tb kOXqPMbkA496FFwmUsA5ULUoktVu O4PiYDOtyXhxYwR1p4A7Tl3WNEcx dGQ+IK69kr16B3KvZvhm Tyt1KREoZJQ4gKD8yX3gYXZzFXcz t5D1wCS6M5DyvrQium2zj0bfLKAo MFfvL22wvGRzd6N1KBWm jGW5PKVqiPlzMfSzdF06Dmj+PGNv oVdeo2JlMawzx3nnq4oavCu5DwHo YRFwkiXgkAgzXWT2g0Wr Ov79R36kDBbiWWGiFWFzVYUdRIHx gJfksv5unH9bLe8+FSRkwRQ4wWK9 uG0yKjJqJdD7OOkuW925 JaFyvMVmWlsji6fdc2izfGa9AgFj TVUibuMguWlhJOK3c6ZyOl26O3Ad tJvyf2KbAlq0mt12rZGj d1M6gND9P9SuDNMepdncyAYraMdn AH8hTFDvaqrlIPHvqX5fHJZxG7h3 VtTzMqS5ISgaL8RdpvS2 QYQvoOHcQNPwrCGCwH4vgkxvx0jg shkxIyFkXKSmYTl8JGd1ZUEmtHcn UoEvOTL5DzZ1QWM2mJMv wD1doXaggtlqmK7tGoo+GEt8b7qa dZGrJT8mpRR0SI67AR56dXHic6D2 jVA9V5IfKSRkueknlyaz hYO3AUOgFLDlbR09Qi3wqQrnFc1r UPMbLNE1LCXhmGZwN1KwjI9tRgKr XHZgYMJoE0AwoZWbSNwm U111BZkqOhG3QFPalcPaM9OiWGKb hUuvOhE1o0U5Zp4QXH09WI83OT81 kZMns4G6pDZ4B4AePAUm qcxytelyzYU9NWOiASXkcG93De9u qMmkBf5nAJRqZBX7JUKdhBHhS7Ne oJ9jUgUpLKSvGZTwO1Mh lTJnVZwwF897KXbzRzY5MBZhizSy O2LpHLGphQtwAhQ3d7P2Hw1JAj97 OS35MD89pVUic9Q2qQR5 G2RqIWJmtnvbhgnwiOC8JCJnDJNn kV00Zh3miXpiWw2vRWKxTCQ2OVVo xHUkR0VswS7nEmEtAXAv ZLXrZ4XxzLXaXNgkR497GYrnJaM3 TIJlqmTxD8XoQZSaqSvaCqP6t5T3 Co7KGKlkyjt5K3KvDenc dHI+SK34GSDsPD45iPGetOXiz8dj gIn1FfIhPMFgYVG9eGorKOlix3Ts VDVvO62ybABnk8Q9NYPs bGx (more content not included)... [facility] C MRSA Screenon 06-30-2022 C MRSA Screen Negative [facility] Comment on above: Performed By: #### 1 [id number] ####[facility] (DEFAULT)[address] [place] [address] 33277 Progress Note - Nurseon 06-12 Progress Note - Nurse Dr. Castro reviewed PAT notes for upcoming surgery 07/26/2022. No new orders at this time [Electronically Signed on: 06/30/2022 11:45 EDT] Annamarie Samuels RN [Verified on: 06/30/2022 11:45 EDT] Annamarie Samuels RN [facility] Provider Orderson 06-30-2022 Provider Orders [id number] [facility] .Auto Diff 1on 06-29-2022 Auto Lanier % 10 % Normal -12 [facility] Comment on above: Performed By: #### 7 [id number], [id number], [id number] ####[facility] (DEFAULT)[address] [place] [address] Baso Abs# 0.0 x10 Normal 0.0-0.2 [facility] Comment on above: Performed By: #### 7 602356, [id number], [id number] ####[facility] (DEFAULT)[address] [place] [address] 26701 Basophils/100 WBC (Bld) 0.7 % Normal 0.2-2.0 [facility] Comment on above: Performed By: #### 7 [id number], [id number], [id number] ####[facility] (DEFAULT)[address] [place] [address] 02753 Eos Abs# 0.6 x10 High 0.0-0.4 [facility] Comment on above: Performed By: #### 7 826218, [id number], [id number] ####[facility] (DEFAULT)[address] [place] [address] 37482 Eosinophils/100 WBC (Bld) 8.5 % High 0.9-4.0 [facility] Comment on above: Performed By: #### 7 687782, [id number], [id number] ####[facility] (DEFAULT)[address] [place] [address] 73630 Lymph Abs# 1.6 x10 Normal 1.3-2.9 [facility] Comment on above: Performed By: #### 7 723132, [id number], [id number] ####[facility] (DEFAULT)[address] [place] [address] 59299 Lymphocytes/100 WBC (Bld) 24 % Normal 14-48 [facility] Comment on above: Performed By: #### 7 093693, [id number], [id number] ####[facility] (DEFAULT)[address] [place] [address] 46505 Lanier Abs# 0.7 x10 Normal 0.0-0.8 [facility] Comment on above: Performed By: #### 7 547851, [id number], [id number] ####[facility] (DEFAULT)[address] [place] [address] 45407 Neut Abs# 3.8 x10 Normal 1.5-9.2 [facility] Comment on above: Performed By: #### 7 271089, [id number], [id number] ####[facility] (DEFAULT)[address] [place] [address] 49557 Neutrophils/100 WBC (Bld) 57 % Normal 44-88 [facility] Comment on above: Performed By: #### 7 979571, [id number], [id number] ####[facility] (DEFAULT)[address] [place] [address] 25248 BMP Standardon 06-29-2022 eGFR Non AA 33 mL/min/1.73m2 Invalid Interpretation Code [facility] Comment on above: Performed By: #### 7 891397, [id number], [id number] ####[facility] (DEFAULT)[address] [place] [address] 25939 eGFR AA 40 mL/min/1.73m2 Invalid Interpretation Code [facility] Comment on above: Performed By: #### 7 519610, [id number], [id number] ####[facility] (DEFAULT)[address] [place] [address] 79087 Anion gap [Moles/Vol] 8.9 mmol/L Normal 5.0-19.0 [facility] Comment on above: Performed By: #### 7 168032, [id number], [id number] ####[facility] (DEFAULT)[address] [place] [address] 43737 Calcium [Mass/Vol] 9.3 mg/dL Normal 8.9-10.3 [facility] Comment on above: Performed By: #### 7 141787, [id number], [id number] ####[facility] (DEFAULT)[address] [place] [address] 64650 Chloride [Moles/Vol] 102 mmol/L Normal 101-111 [facility] Comment on above: Performed By: #### 7 845979, 57096927, [id number] ####[facility] (DEFAULT)[address] [place] [address] 32496 CO2 [Moles/Vol] 28 mmol/L Normal 21-32 [facility] Comment on above: Performed By: #### 7 833308, [id number], [id number] ####[facility] (DEFAULT)[address] [place] [address] 22750 Creatinine [Mass/Vol] 1.53 mg/dL High 0.60-1.30 [facility] Comment on above: Performed By: #### 7 522308, [id number], [id number] ####[facility] (DEFAULT)[address] [place] [address] 92001 Glucose [Mass/Vol] 107.0 mg/dL Normal 74.0-118.0 [facility] Comment on above: Performed By: #### 7 699564, [id number], [id number] ####[facility] (DEFAULT)[address] [place] [address] Osmolality 279 mOsm/L Invalid Interpretation Code [facility] Comment on above: Performed By: #### 7 134160, [id number], [id number] ####[facility] (DEFAULT)[address] [place] [address] 52346 Potassium [Moles/Vol] 3.9 mmol/L Normal 3.6-5.1 [facility] Comment on above: Performed By: #### 7 561688, 50060007, [id number] ####[facility] (DEFAULT)[address] [place] [address] Sodium [Moles/Vol] 135.0 mmol/L Low 136.0-144 . 0 [facility] Comment on above: Performed By: #### 7 217726, 58301765, [id number] ####[facility] (DEFAULT)[address] [place] [address] Urea nitrogen [Mass/Vol] 36 mg/dL High 8-26 [facility] Comment on above: Performed By: #### 7 414005, [id number], [id number] ####[facility] (DEFAULT)[address] [place] [address] Urea nitrogen/Creatinine [Mass ratio] 23.5 mg/mg High 4.6-16.2 [facility] Comment on above: Performed By: #### 7 033932, [id number], [id number] ####[facility] (DEFAULT)[address] [place] [address] CBC w/ Auto Diffon 3 Erythrocyte distribution width (RBC) [Ratio] 12.8 % Normal 11.5-15.0 [facility] Comment on above: Performed By: #### 7 738101, 99568531, [id number] ####[facility] (DEFAULT)[address] [place] [address] Hematocrit (Bld) [Volume fraction] 36.4 % Normal 33.7-40.4 [facility] Comment on above: Performed By: #### 7 546892, 91394916, [id number] ####[facility] (DEFAULT)[address] [place] [address] Hemoglobin (Bld) [Mass/Vol] 12.2 g/dL Normal 11.3-15.9 [facility] Comment on above: Performed By: #### 7 267975, 04649618, [id number] ####[facility] (DEFAULT)[address] [place] [address] Man Diff? Auto Invalid Interpretation Code [facility] Comment on above: Performed By: #### 7 588700, [id number], [id number] ####[facility] (DEFAULT)[address] [place] [address] MCH (RBC) [Entitic mass] 32 pg Normal 24-34 [facility] Comment on above: Performed By: #### 7 825429, 36863570, [id number] ####[facility] (DEFAULT)[address] [place] [address] MCHC (RBC) [Mass/Vol] 33 g/dL Normal 26-37 [facility] Comment on above: Performed By: #### 7 153214, 57185559, [id number] ####[facility] (DEFAULT)[address] [place] [address] MCV (RBC) [Entitic vol] 97 fL Normal 81-100 [facility] Comment on above: Performed By: #### 7 248706, 94726514, [id number] ####[facility] (DEFAULT)[address] [place] [address] Platelet 336 x10 Normal 138-427 [facility] Comment on above: Performed By: #### 7 294881, 65713544, [id number] ####[facility] (DEFAULT)[address] [place] [address] Platelet mean volume (Bld) [Entitic vol] 7.2 fL Normal 6.3-10.2 [facility] Comment on above: Performed By: #### 7 524415, 87135171, [id number] ####[facility] (DEFAULT)[address] [place] [address] 54323 RBC 3.77 x10 Normal 3.70-5.30 [facility] Comment on above: Performed By: #### 7 517662, 85645945, [id number] ####[facility] (DEFAULT)[address] [place] [address] 12548 WBC 6.7 x10 Normal 3.5-10.5 [facility] Comment on above: Performed By: #### 7 767201, [id number], [id number] ####[facility] (DEFAULT)[address] [place] [address] 36378 UA w Culture if Ind Standard on 06-29-2022 Breakpoint UA Normal [facility] Comment on above: Performed By: #### 1 [id number] #### [facility] (DEFAULT) [address] [place] [address] Color (U) Yellow Normal [facility] Comment on above: Performed By: #### 1 [id number] #### [facility] (DEFAULT) [address] [place] [address] 16175 Culture? Not Indicated Invalid Interpretation Code [facility] Comment on above: Result Comment: Resu lt created by rule GL_MAGR_ADD_UA_CULT1 Performed By: #### 1 [id number] #### [facility] (DEFAULT) [address] [place] [address] 68771 Glucose (U) [Mass/Vol] Negative [facility] Comment on above: Performed By: #### 1 [id number] #### [facility] (DEFAULT) [address] [place] [address] 34530 Ketones Ql (U) Negative [facility] Comment on above: Performed By: #### 1 [id number] #### [facility] (DEFAULT) [address] [place] [address] Micro? Not Indicated Invalid Interpretation Code [facility] Comment on above: Result Comment: Resu lt created by rule GL_MAGR_ADD_UA_MICRO Performed By: #### 1 [id number] #### [facility] (DEFAULT) [address] [place] [address] 04745 UA Bilirubin Negative Normal [facility] Comment on above: Performed By: #### 1 [id number] #### [facility] (DEFAULT) [address] [place] [address] 19617 UA Blood Negative Normal NEGATIVE [facility] Comment on above: Performed By: #### 1 [id number] #### [facility] (DEFAULT) [address] [place] [address] UA Clarity CLEAR Normal CLEAR [facility] Comment on above: Performed By: #### 1 [id number] #### [facility] (DEFAULT) [address] [place] [address] UA Leuk Est Negative Normal NEGATIVE [facility] Comment on above: Performed By: #### 1 [id number] #### [facility] (DEFAULT) [address] [place] [address] 89914 UA Nitrite Negative Normal NEGATIVE [facility] Comment on above: Performed By: #### 1 [id number] #### [facility] (DEFAULT) [address] [place] [address] 57146 UA pH 6.5 Normal 5-8 [facility] Comment on above: Performed By: #### 1 [id number] #### [facility] (DEFAULT) [address] [place] [address] UA Protein Negative Normal NEGATIVE [facility] Comment on above: Performed By: #### 1 [id number] #### [facility] (DEFAULT) [address] [place] [address] 28742 UA Spec Grav 1.010 Normal 1.001-1.[address] [place] [address] Comment on above: Performed By: #### 1 [id number] #### [facility] (DEFAULT) [address] [place] [address] 42922 UA Urobilinogen 0.2 mg/dL Normal 0.2-1.0 [facility] Comment on above: Performed By: #### 1 [id number] #### [facility] (DEFAULT) [address] [place] [address] 76259 Urine Source Clean Catch Normal [facility] Comment on above: Performed By: #### 1 [id number] #### [facility] (DEFAULT) [address] [place] [address] MRI Shoulder w/o Lefton 04-15 MRI Shoulder [...] by Adarsh Adams on 05/11/2022 1041 Normal [facility] SCREENING MAMMOGRAM W/ARABELLA, BILATERAL*on 11-20-2021 [...] VERY IMPORTANT TO YOUR HEALTH. THE CURRENT [employer] GUIDELINES RECOMMENDS ANNUAL MAMMOGRAPHY BEGINNING AT AGE 39 THIS FACILITY USES A REMINDER SYSTEM TO ENSURE ALL PATIENTS RECEIVE REMINDER NOTIFICATIONS AT THE APPROPRIATE TIME BASED ON THE RECOMMENDATIONS OF THIS EXAM. Report reported and signed by Alejandro Forte on 11/20/2021 0949 Normal [facility] Comprehensive Metabolic Pane george 06-10-2021 Albumin [Mass/Vol] 4.2 g/dL Normal 3.6-5.1 [place] [facility] [place] [employer] Comment on above: Performed By: #### C JEWELS, LIPD #### [facility] [address] [place], [place] [id number] Albumin/Globulin [Mass ratio] 1.7 {ratio} Normal 1.0-2.5 [facility] Specialist Comment on above: Performed By: #### C MP, LIPD #### [facility] [address] [place], [place] [id number] ALP [Catalytic activity/Vol] 82 U/L Normal 35-119 [facility] [employer] Comment on above: Performed By: #### C JEWELS, LIPD #### [facility] [address] [place], [place] [id number] ALT [Catalytic activity/Vol] 15 U/L Normal 6-33 [facility] Specialist Comment on above: Result Comment: 02/11 Female reference range changed. Performed By: #### C JEWELS, LIPD #### [facility] [address] [facility] [place] [id number] Anion gap [Moles/Vol] 15 mmol/L Normal 12-20 [facility] [employer] Comment on above: Result Comment: Effe ctive 03/19/2019 reference range changed. Performed By: #### C JEWELS LIPD #### [facility] [address] [facility] [place] [id number] AST [Catalytic activity/Vol] 21 U/L Normal 9-34 [facility] Specialist Comment on above: Performed By: #### C JEWELS, LIPD #### [facility] [address] [facility] [place] [id number] BUN/CREA 28 Ratio High 6-22 [facility] [employer] Comment on above: Performed By: #### C JEWELS LIPD #### [facility] [address] [place], [place] [id number] Calcium [Mass/Vol] 9.3 mg/dL Normal 8.6-10.2 Madyson goldman [employer] Comment on above: Performed By: #### C MP, LIPD #### [facility] [address] [place], [place] [id number] Chloride [Moles/Vol] 106 mmol/L Normal 98-107 [facility] Specialist Comment on above: Performed By: #### C JEWELS LIPTeresa #### [facility] [address] [facility] [place] [id number] CO2 [Moles/Vol] 24 mmol/L Normal 20-31 [facility] Specialist Comment on above: Performed By: #### C JEWELS LIPTeresa #### [facility] [address] [facility] [place] [id number] Creatinine [Mass/Vol] 1.1 mg/dL Normal 0.6-1.4 [facility] Specialist Comment on above: Performed By: #### C JEWELS LIPTeresa #### [facility] [address] [place], [place] [id number] eGFRAA 58 mL/min/1.73m2 Low >60 [facility] Specialist Comment on above: Performed By: #### C JARVIS DONIS #### [facility] [address] [place], [place] [id number] eGFRNAA 48 mL/min/1.73m2 Low >60 [facility] Specialist Comment on above: Performed By: #### C JARVIS DONIS #### [facility] [address] [place], [place] [id number] Globulin (S) [Mass/Vol] 2.5 g/dL Normal 1.9-3.7 [facility] [employer] Comment on above: Performed By: #### C JARVIS DONIS #### [facility] [address] [place], [place] [id number] Glucose [Mass/Vol] 94 mg/dL Normal 65-99 [facility] [employer] Comment on above: Result Comment: For FASTING Glucose --- ADA reference ranges: Normal 65-99 mg/dl Prediabetes 100-125 Diabetes >/= 126 Performed By: #### C JEWELS LIPTeresa #### [facility] [address] [place], [place] [id number] Potassium [Moles/Vol] 4.4 mmol/L Normal 3.5-5.5 [facility] Specialist Comment on above: Performed By: #### C JEWELS LIPTeresa #### [facility] [address] [facility] [place] [id number] Protein [Mass/Vol] 6.7 g/dL Normal 6.1-8.1 [place] [facility] [employer] Comment on above: Performed By: #### C MP, LIPD #### [facility] [address] [place], [place] [id number] Sodium [Moles/Vol] 141 mmol/L Normal 135-146 [facility] Specialist Comment on above: Performed By: #### C MP, LIPD #### [facility] [address] [place], [place] [id number] TBIL <0.3 Normal [facility] Comment on above: Performed By: #### C MP, LIPD #### [facility] [address] [place], [place] [id number] Urea nitrogen [Mass/Vol] 32 mg/dL High 7-25 [facility] Specialist Comment on above: Performed By: #### C MP, LIPD #### [facility] [address] [place], [place] [id number] Lipid Panelon 06-10-2021 Cholesterol [Mass/Vol] 237 mg/dL High 125-200 [facility] Comment on above: Result Comment: Low risk < 200mg/dL Borderline risk 201-239 mg/dl High risk > or equal to 240 Performed By: #### C MP, LIPD #### [facility] [address] [place], [place] [id number] Cholesterol in HDL [Mass/Vol] 100 mg/dL Normal >40 [facility] Specialist Comment on above: Result Comment: High Cardiovascular Risk HDL <40 mg/dL Low Cardiovascular Risk HDL > or equal to 60 mg/dl Performed By: #### C MP, LIPD #### [facility] [address] [place], [place] [id number] Cholesterol in LDL [Mass/Vol] 124 mg/dL Normal [facility] Comment on above: Result Comment: LDL ATP III CLASSIFICATION LDL less than 100 mg/dl Optimal LDL 100-129 mg/dl Near or above optimal LDL 130-159 Borderline high LDL 160-189 High LDL greater than 189 mg/dl Very High Performed By: #### C MP, LIPD #### [facility] [address] [place], [place] [id number] Cholesterol in VLDL [Mass/Vol] 13 mg/dL Normal [facility] Comment on above: Performed By: #### C MP, LIPD #### [facility] [address] [place], [place] [id number] Cholesterol.total/Ch olesterol in HDL [Mass ratio] 2 {ratio} Normal [facility] Specialist Comment on above: Performed By: #### C JEWELS, LIPD #### [facility] [address] [place], [place] [id number] Triglyceride [Mass/Vol] 67 mg/dL Normal 30-150 [facility] [employer] Comment on above: Result Comment: TRIG ATPIII CLASSIFICATIONS TRIG less than 150 mg/dl Normal TRIG 150-199 mg/dl Borderline High TRIG 200-500 mg/dl High TRIG greather than 500 mg/dl Very High Performed By: #### C JEWELS, LIPD #### [facility] [address] [place], [place] [id number] ECHOCARDIO M/2D COMPLETEon 0 10-24-2020 ECHOCARDIO M/2D COMPLETE Patient: RADHA CUADRA Exam Date: 10/24/2020 : 1945 Gender:F Ordering : DR SHARI MCKEON M.D. Admission #: [id number] Family : Order #: [id number] CLICK HERE TO VIEW EXAM ECHOCARDIOGRAM REPORT [...] Area(A4C): 13.90 cm2 Left Atrium Systolic Volume(A2C): 49707 mm3 Left Atrium Systolic Volume(A4C): 58039 mm3 Mitral Valve MV E to A Ratio: 1.10 Mitral Valve A-Wave Peak Velocity: 68.60 cm/s Mitral Valve E-Wave Peak Velocity: 74.50 cm/s Deceleration Time: 259 ms Right Ventricle Aorta AO Root Diam: 2.60 cm Aortic Valve Peak Velocity (Antegrade Flow): 161.00 cm/s, 230.00 cm/s AoV Area (Peak Daniel): 1.93 cm2 AoV Area (VTI): 1.90 cm2 Deceleration Pickett: 1880 mm/s2 Pressure Half-Time: 528 ms Peak [...] M.D. on 10/24/2020 at 19:17 Normal [facility] HEMOGLOBINon 09-30-2020 Hemoglobin (Bld) [Mass/Vol] 12.3 g/dL Normal 12.0-16.0 [facility] Comment on above: Performed By: #### H GB #### [facility] [address] [address] Geraldo Gaitan H PYLORI TISSUEon 02-01-2020 H PYL TISSUE, UREASE Negative Normal NEGATIVE [facility] Comment on above: Performed By: #### H GB #### [facility] [address] [address] Geraldo Gaitan COVID-19 PCRon 01-27-2020 SARS-CoV-2 (COVID-19) RNA VIVIENNE+probe Ql (Unsp spec) Not detected Normal Not Detected [facility] Comment on above: Result Comment: This nucleic acid amplification test was developed and its performance characteristics determined by [facility]. Nucleic acid amplification tests include PCR and [...] Performed By: #### C VDSTAT, CVDPCR #### [facility] [address] [address] Geraldo Gaitan PRIORITY COVID PROCESSINGon 01-27-2020 Comment Comment Normal [facility] Comment on above: Result Comment: Rece ived Performed By: #### C VDSTAT, CVDPCR #### [facility] [address] [place] [address] Geraldo Gaitan CULTURE BLOODon 01-08-2020 Microscopic examination [...] e <=20 S F Normal [facility] Comment on above: Performed By: #### H GB #### [facility] [address] [place] [address] Geraldo Gaitan BLOOD CULTURE ID PANELon A. baumannii Not detected Normal [facility] Comment on above: Performed By: #### B MIRYAM #### [facility] [address] [place] [address] Geraldo Gaitan BCID CONTROLS PASSED Normal [facility] Comment on above: Performed By: #### B MIRYAM #### [facility] [address] [address] Geraldo Gaitan BCIDBTHD BLOOD CULTURE BOTTLE INFORMATION Normal [facility] Comment on above: Performed By: #### B MIRYAM #### [facility] [address] [place] [address] Geraldo Gaitan BCIDHD1 ANTIMICROBIAL RESIST ANCE GENES Normal [facility] Comment on above: Performed By: #### B MIRYAM #### [facility] [address] [place] [address] Geraldo Gaitan BCIDHD2 SEE BELOW Normal [facility] Comment on above: Result Comment: KPC- carbapenem resistance gene, mecA- methecillin resistance gene, van A/B- vancomycin resistance gene Note: Antimicrobial resitance can occur via multiple mechanisms. A Not Detected result for the [employer] antomicrobial resistance gene assays does not indicate antimicrobial susceptibility. Subculturing is required for specis identificationand susceptibility testing of isolates. Performed By: #### B MIRYAM #### [facility] [address] [place] [address] Geraldo Kandy BCIDHD3 Positive [facility] Comment on above: Performed By: #### B MIRYAM #### [facility] [address] [place] [address] Geraldo Kandy BCIDHD3 Negative Normal [facility] Comment on above: Performed By: #### B MIRYAM #### [facility] [address] [place] [address] Geraldo Kandy BCIDHD5 YEAST Normal [facility] Comment on above: Performed By: #### B MIRYAM #### [facility] [address] [place] [address] Geraldo Kandy BCIDHD6 SEE BELOW [facility] Comment on above: Result Comment: Note : All genus and species BCID FilmArray results will be verified post subculturing via Maldi-Tof MS testing methodology. Performed By: #### B MIRYAM #### [facility] [address] [place] [address] Geraldo Kandy Bottle Set: Set 2 Normal [facility] Comment on above: Performed By: #### B MIRYAM #### [facility] [address] [place] [address] Geraldo Kandy Bottle: Aerobic Normal [facility] Comment on above: Performed By: #### B MIRYAM #### [facility] [address] [place] [address] Geraldo Kandy Naomi albicans Not detected Normal [facility] Comment on above: Performed By: #### B MIRYAM #### [facility] [address] [place] [address] Geraldo Kandy Naomi glabrata Not detected Normal [facility] Comment on above: Performed By: #### B MIRYAM #### [facility] [address] [address] Geraldo Kandy Naomi Krusei Not detected Normal [facility] Comment on above: Performed By: #### B MIRYAM #### [facility] [address] [place] [address] Geraldo Kandy Naomi Parapsilosis Not detected Normal [facility] Comment on above: Performed By: #### B MIRYAM #### [facility] [address] [place] [address] Geraldo Kandy Naomi Tropicalis Not detected Normal [facility] Comment on above: Performed By: #### B MIRYAM #### [facility] [address] [place] [address] Geraldo Kandy E. Cloacae complex Not detected Normal [facility] Comment on above: Performed By: #### B MIRYAM #### [facility] [address] [place] [address] Geraldo Kandy Enterobacteriaceae Detected Invalid Interpretation Code [facility] Comment on above: Performed By: #### B MIRYAM #### [facility] [address] [place] [address] Geraldo Kandy Enterococcus Not detected Normal [facility] Comment on above: Performed By: #### B MIRYAM #### [facility] [address] [place] [address] Geraldo Kandy Escheria coli Detected Normal [facility] Comment on above: Performed By: #### B MIRYAM #### [facility] [address] [place] [address] Geraldo Kandy K. oxytoca Not detected Normal [facility] Comment on above: Performed By: #### B MIRYAM #### [facility] [address] [place] [address] Geraldo Kandy K. pneumoniae Not detected Normal [facility] Comment on above: Performed By: #### B MIRYAM #### [facility] [address] [place] [address] Geraldo Kandy KPC Resistant Gene Not detected Normal [facility] Comment on above: Performed By: #### B MIRYAM #### [facility] [address] [place] [address] Geraldo Kandy List. monocytogenes Not detected Normal [facility] Comment on above: Performed By: #### B MIRYAM #### [facility] [address] [place] [address] Geraldobhumi Gaitan mecA Resistant Gene Not detected Normal [facility] Comment on above: Performed By: #### B MIRYAM #### [facility] [address] [place] [address] Geraldo Kandy Proteus Not detected Normal [facility] Comment on above: Performed By: #### B MIRYAM #### [facility] [address] [place] [address] Geraldobhumi Charlesen Pseud. aeruginosa Not detected Normal [facility] Comment on above: Performed By: #### B MIRYAM #### [facility] [address] [place] [address] Geraldo Kandy Seratia marcescens Not detected Normal [facility] Comment on above: Performed By: #### B MIRYAM #### [facility] [address] [place] [address] Geraldobhumi Gaitan Site: R AC Normal [facility] Comment on above: Performed By: #### B MIRYAM #### [facility] [address] [place] [address] Geraldobhumi Gaitan Staph. aureus Not detected Normal [facility] Comment on above: Performed By: #### B MIRYAM #### [facility] [address] [place] [address] Geraldo Kandy Staphylococcus Not detected Normal [facility] Comment on above: Performed By: #### B IMRYAM #### [facility] [address] [place] [address] Geraldo Kandy Strep. agalactiae Not detected Normal [facility] Comment on above: Performed By: #### B MIRYAM #### [facility] [address] [place] [address] Geraldo Kandy Strep. pneumoniae Not detected Normal [facility] Comment on above: Performed By: #### B MIRYAM #### [facility] [address] [place] [address] Geraldo Kandy Strep. pyogenes Not detected Normal [facility] Comment on above: Performed By: #### B MIRYAM #### [facility] [address] [place] [address] Geraldo Kandy Streptococcus Not detected Normal [facility] Comment on above: Performed By: #### B MIRYAM #### [facility] [address] [place] [address] Geraldo Gaitan Aicha/B Resist. Gene Not detected Normal [facility] Comment on above: Performed By: #### B MIRYAM #### [facility] [address] [place] [address] Geraldo Kandy CBC AUTO DIFFon 01-02-2020 BASO # 0.0 103/ul Normal 0.0-0.1 [facility] Comment on above: Performed By: #### C BC #### [facility] [address] [place] [address] Geraldobhumi Gaitan Basophils/100 WBC (Bld) 0.3 % Normal 0.2-2.0 [facility] Comment on above: Performed By: #### C BC #### [facility] [address] [place] [address] Geraldo Gaitan EO # 0.0 103/ul Normal 0.0-0.7 [facility] Comment on above: Performed By: #### C BC #### [facility] [address] [place] [address] Geraldo Gaitan Eosinophils/100 WBC (Bld) 0.3 % Critically low 0.9-7.0 [facility] Comment on above: Performed By: #### C BC #### [facility] [address] [place] [address] Geraldobhumi Gaitan Erythrocyte distribution width (RBC) [Ratio] 12.6 % Normal 11.0-15.0 [facility] Comment on above: Performed By: #### C BC #### [facility] [address] [place] [address] Geraldo Kandy Hematocrit (Bld) [Volume fraction] 42.7 % Normal 36.0-48.0 [facility] Comment on above: Performed By: #### C BC #### [facility] [address] [place] [address] Geraldo Kandy Hemoglobin (Bld) [Mass/Vol] 13.6 g/dL Normal 12.0-16.0 [facility] Comment on above: Performed By: #### C BC #### [facility] [address] [place] [address] Geraldobhumi Gaitan IG # 0.04 10e3/ul Critically high 0.00-0.03 [facility] Comment on above: Performed By: #### C BC #### [facility] [address] [place] [address] Geraldo Gaitan IG % 0.3 % Normal 0.0-0.5 [facility] Comment on above: Performed By: #### C BC #### [facility] [address] [place] [address] Geraldo Gaitan LYMPH # 0.5 103/ul Critically low 1.2-3.8 [facility] Comment on above: Performed By: #### C BC #### [facility] [address] [place] [address] Geraldo Gaitan Lymphocytes/100 WBC (Bld) 4.4 % Critically low 20.5-60.0 [facility] Comment on above: Performed By: #### C BC #### [facility] [address] [place] [address] Geraldo Gaitan MANUAL DIFF REQ NO Normal [facility] Comment on above: Performed By: #### C BC #### [facility] [address] [place] [address] Geraldo Gaitan MCH (RBC) [Entitic mass] 30.6 pg Normal 26.7-34.0 [facility] Comment on above: Performed By: #### C BC #### [facility] [address] [place] [address] Geraldo Gaitan MCHC (RBC) [Mass/Vol] 31.9 g/dL Normal 29.9-35.2 [facility] Comment on above: Performed By: #### C BC #### [facility] [address] [place] [address] Geraldo Gaitan MCV (RBC) [Entitic vol] 96.0 fL Normal 81.0-99.0 [facility] Comment on above: Performed By: #### C BC #### [facility] [address] [place], [place] [address] Geraldo Gaitan MONO # 0.8 103/ul Normal 0.3-0.8 [facility] Comment on above: Performed By: #### C BC #### [facility] [address] [place], [place] [address] Geraldo Gaitan Monocytes/100 WBC (Bld) 6.5 % Normal 1.7-12.0 [facility] Comment on above: Performed By: #### C BC #### [facility] [address] [id number] Geraldobhumi Charlesen NEUT # 10.1 103/ul Critically high 1.4-6.5 [facility] Comment on above: Performed By: #### C BC #### [facility] [address] [id number] Geraldo Gaitan Neutrophils/100 WBC (Bld) 88.2 % Critically high 43.0-75.0 [facility] Comment on above: Performed By: #### C BC #### [facility] [address] [place], [place] [address] Geraldo Gaitan Platelet mean volume (Bld) [Entitic vol] 9.8 fL Normal 9.5-13.5 [facility] Comment on above: Performed By: #### C BC #### [facility] [address] [id number] Geraldo Kandy PLT 254 103/ul Normal 150-450 [facility] Comment on above: Performed By: #### C BC #### [facility] [address] [place], [place] [address] Geraldo Kandy RBC 4.45 106/ul Normal 4.20-5.40 [facility] Comment on above: Performed By: #### C BC #### [facility] [address] [place], [place] [address] HEAD WO CONon 01-02-2020 [...] REMY NESS Date: 2020-01-02 19:00 Normal [facility] CULTURE BLOODon 01-02-2020 Microscopic examination of blood, culture Culture Observations: No growth at 5 days Normal [facility] Comment on above: Performed By: #### H SAKINA #### [facility] [address] [place] [address] Gerlado Kandy CULTURE URINEon 01-02-2020 CULTURE URINE Culture Observations : Light growth of mixed genital eliezer.No potential pathogens seen. Normal [facility] Comment on above: Performed By: #### H SAKINA #### [facility] [address] [place] [address] Geraldo Kandy ER URINE PROFILEon 0 Bilirubin Ql (U) Negative Normal NEGATIVE [facility] Comment on above: Performed By: #### MELODY CORDOVA #### [facility] [address] [place] [address] Geraldo Kandy Clarity (U) SL CLOUDY Normal [facility] Comment on above: Performed By: #### MELODY CORDOVA #### [facility] [address] [place] [address] Geraldo Kandy Color (U) LT. YELLOW Normal YELLOW [facility] Comment on above: Performed By: #### MELODY CORDOVA #### [facility] [address] [place] [address] Geraldo Gaitan ERUAHD A micrscopic examina tion will be performed if indicated. Normal [facility] Comment on above: Performed By: #### MELODY CORDOVA #### [facility] [address] [place] [address] Geraldo Kandy Glucose Ql (U) Negative Normal NEGATIVE [facility] Comment on above: Performed By: #### MELODY CORDOVA #### [facility] [address] [place] [address] Geraldo Kandy Hemoglobin Ql (U) SMALL Normal NEGATIVE [facility] Comment on above: Performed By: #### MELODY CORDOVA #### [facility] [address] [place] [address] Geraldo Kandy Ketones Ql (U) Negative Normal NEGATIVE [facility] Comment on above: Performed By: #### MELODY CORDOVA #### [facility] [address] [place] [address] Geraldo Kandy LEUKOCYTES TRACE Normal NEGATIVE [facility] Comment on above: Performed By: #### MELODY CORDOVA #### [facility] [address] [place] [address] Geraldo Kandy Nitrite Ql (U) Negative Normal NEGATIVE [facility] Comment on above: Performed By: #### MELODY CORDOVA #### [facility] [address] [place] [address] Geraldo Kandy pH (U) 7.0 [pH] Normal 5-9 [facility] Comment on above: Performed By: #### MELODY CORDOVA #### [facility] [address] [place] [address] Geraldo Kandy Protein Ql (U) 30 mg/dl Normal [facility] Comment on above: Performed By: #### MELODY CORDOVA #### [facility] [address] [place] [address] Geraldo Kandy SPEC GRAVITY 1.015 Normal 1.005-<=1. 025 [facility] Comment on above: Performed By: #### MELODY CORDOVA #### [facility] [address] [place] [address] Geraldo Kandy UR MICRO IND INDICATED Normal [facility] Comment on above: Performed By: #### E MELODY SHAH #### [facility] [address] [place] [address] Geraldobhumi Gaitan Urobilinogen Qn (U) 0.2 {Eileen'U}/dL Normal [facility] Comment on above: Performed By: #### MELODY CORDOVA #### [facility] [address] [place] [address] Geraldobhumi Gaitan LACTATE/LACTIC ACIDon 2019 Lactate [Moles/Vol] 1.1 mmol/L Normal 0.7-2.0 [facility] Comment on above: Performed By: #### H GB #### [facility] [address] [place] [address] Geraldo Gaitan PROCALCITONINon 01-02-2020 PCT header 1 SEE BELOW Normal [facility] Comment on above: Result Comment: PCT <0.5ng/mL: Systemic infection (sepsis) is not likely, local bacterial infection possible, low risk for progression to severe systemic infection (severe sepsis) Performed By: #### P RL #### [facility] [address] [place] [address] Geraldo Kandy PCT header 2 SEE BELOW Normal [facility] Comment on above: Result Comment: PCT >/=0.5 and <2 ng/mL: Systemic infection (sepsis) is possible, moderate risk for progression to severe systemic infection (severe sepsis) Performed By: #### P RL #### [facility] [address] [place] [address] Geraldo Kandy PCT header 3 SEE BELOW Normal [facility] Comment on above: Result Comment: PCT >/=2.0 and <10 ng/mL: Systemic infection (sepsis) is likely, unless other causes are known, high risk for progession to severe systemic infection(severe sepsis) Performed By: #### P RL #### [facility] [address] [place] [address] Geraldo Kandy PCT header 4 SEE BELOW Normal [facility] Comment on above: Result Comment: PCT >/= 10 ng/mL: Important systemic inflammatory response almost exclusively due to severe bacterial sepsis or septic shock, high likelihood of severe sepsis or septic shock Performed By: #### P RL #### [facility] [address] [place] [address] Geraldobhumi Gaitan PROCALCITONIN 0.62 ng/mL Critically high 0.00-0.50 [facility] Comment on above: Performed By: #### P RL #### [facility] [address] [place] [address] Geraldo Gaitan PROF 14(COMP METB)on 020 Albumin [Mass/Vol] 3.6 g/dL Normal 3.5-5.0 [facility] Comment on above: Performed By: #### C MP #### [facility] [address] [place] [address] Geraldobhumi Gaitan Albumin/Globulin [Mass ratio] 0.8 {ratio} Normal [facility] Comment on above: Performed By: #### C MP #### [facility] [address] [place] [address] Geraldo Kandy ALP [Catalytic activity/Vol] 95 U/L Normal 38-126 [facility] Comment on above: Performed By: #### C MP #### [facility] [address] [place] [address] Geraldo Kandy ALT [Catalytic activity/Vol] 32 U/L Normal 9-52 [facility] Comment on above: Performed By: #### C MP #### [facility] [address] [place] [address] Geraldo Kandy Anion gap [Moles/Vol] 13.8 mmol/L Normal [facility] Comment on above: Performed By: #### C MP #### [facility] [address] [place], [place] [id number] Geraldo Kandy AST [Catalytic activity/Vol] 42 U/L Critically high 14-36 [facility] Comment on above: Performed By: #### C MP #### [facility] [address] [place] [address] Geraldo Kandy Bilirubin [Mass/Vol] 0.5 mg/dL Normal 0.2-1.3 [facility] Comment on above: Performed By: #### C MP #### [facility] [address] [place], [place] [address] Geraldo Kandy Calcium [Mass/Vol] 9.4 mg/dL Normal 8.4-10.2 [facility] Comment on above: Performed By: #### C MP #### [facility] [address] [id number] Geraldo Kandy Chloride [Moles/Vol] 100 mmol/L Normal 98-107 [facility] Comment on above: Performed By: #### C MP #### [facility] [address] [id number] Geraldo Kandy CO2 [Moles/Vol] 24.6 mmol/L Normal 22.0-30.0 [facility] Comment on above: Performed By: #### C MP #### [facility] [address] [id number] Geraldo Kandy Creatinine [Mass/Vol] 1.36 mg/dL Critically high 0.52-1.04 [facility] Comment on above: Performed By: #### C MP #### [facility] [address] [place], [place] [address] Geraldo Kandy EGFR-AF AZERBAIJANI 46 mL/min/1.73m2 Critically low >=60 [facility] Comment on above: Performed By: #### C MP #### [facility] [address] [id number] Geraldo Kandy EGFR-NON AF AZERBAIJANI 38 mL/min/1.73m2 Critically low >=60 [facility] Comment on above: Performed By: #### C MP #### [facility] [address] [place], [place] [address] Geraldo Kandy Globulin (S) [Mass/Vol] 4.5 g/dL Normal [facility] Comment on above: Performed By: #### C MP #### [facility] [address] [place], [place] [address] Geraldo Kandy Glucose [Mass/Vol] 120 mg/dL Critically high 74-106 [facility] Comment on above: Performed By: #### C MP #### [facility] [address] [address] Geraldo Kandy Potassium [Moles/Vol] 3.4 mmol/L Normal 3.4-5.0 [facility] Comment on above: Performed By: #### C MP #### [facility] [address] [address] Geraldo Kandy Protein [Mass/Vol] 8.1 g/dL Normal 6.1-8.2 [facility] Comment on above: Performed By: #### C MP #### [facility] [address] [place] [address] Geraldo Kandy Sodium [Moles/Vol] 135 mmol/L Critically low 137-145 [facility] Comment on above: Performed By: #### C MP #### [facility] [address] [place] [address] Geraldo Kandy Urea nitrogen [Mass/Vol] 22.0 mg/dL Critically high 7.0-17.0 [facility] Comment on above: Performed By: #### C MP #### [facility] [address] [place] [address] Geraldo Kandy Urea nitrogen/Creatinine [Mass ratio] 16.2 mg/mg Normal [facility] Comment on above: Performed By: #### C MP #### [facility] [address] [place] [address] Geraldo Kandy RESPIRATORY PANEL PLUSon Adenovirus Not detected Normal NOT DETECTED [facility] Comment on above: Performed By: #### R SPLUS #### [facility] [address] [place] [address] Geraldo Kandy B. Parapertusis Not detected Normal NOT DETECTED [facility] Comment on above: Performed By: #### R SPLUS #### [facility] [address] [place] [address] Geraldo Kandy B. Pertussis Not detected Normal NOT DETECTED [facility] Comment on above: Performed By: #### R SPLUS #### [facility] [address] [place] [address] Geraldo Kandy Chlamydia Pneumoniae Not detected Normal NOT DETECTED [facility] Comment on above: Performed By: #### R SPLUS #### [facility] [address] [place] [address] Geraldo Kandy Coronavirus 229E Not detected Normal NOT DETECTED [facility] Comment on above: Performed By: #### R SPLUS #### [facility] [address] [place] [address] Geraldo Kandy Coronavirus HKU1 Not detected Normal NOT DETECTED [facility] Comment on above: Performed By: #### R SPLUS #### [facility] [address] [place] [address] Geraldo Kandy Coronavirus NL63 Not detected Normal NOT DETECTED [facility] Comment on above: Performed By: #### R SPLUS #### [facility] [address] [place] [address] Geraldo Kandy Coronavirus OC43 Not detected Normal NOT DETECTED [facility] Comment on above: Performed By: #### R SPLUS #### [facility] [address] [place] [address] Geraldo Kandy Influenza A H1 2009 Not detected Normal NOT DETECTED [facility] Comment on above: Performed By: #### R SPLUS #### [facility] [address] [place] [address] Geraldo Kandy Influenza B Not detected Normal NOT DETECTED [facility] Comment on above: Performed By: #### R SPLUS #### [facility] [address] [place] [address] Geraldo Kandy Metapneumovirus Not detected Normal NOT DETECTED [facility] Comment on above: Performed By: #### R SPLUS #### [facility] [address] [place] [address] Geraldo Kandy Mycoplas. Pneumoniae Not detected Normal NOT DETECTED [facility] Comment on above: Performed By: #### R SPLUS #### [facility] [address] [place] [address] Geraldo Kandy Parainfluenza 1 Not detected Normal NOT DETECTED [facility] Comment on above: Performed By: #### R SPLUS #### [facility] [address] [place] [address] Geraldo Kandy Parainfluenza 2 Not detected Normal NOT DETECTED [facility] Comment on above: Performed By: #### R SPLUS #### [facility] [address] [place] [address] Geraldo Kandy Parainfluenza 3 Not detected Normal NOT DETECTED [facility] Comment on above: Performed By: #### R SPLUS #### [facility] [address] [place] [address] Geraldo Kandy Parainfluenza 4 Not detected Normal NOT DETECTED [facility] Comment on above: Performed By: #### R SPLUS #### [facility] [address] [place] [address] Geraldo Kandy Rhino/Enterovirus Not detected Normal NOT DETECTED [facility] Comment on above: Performed By: #### R SPLUS #### [facility] [address] [place] [address] Geraldo Kandy RP2 Header 1 RESPIRATORY PANEL: VIRUSES Normal [facility] Comment on above: Performed By: #### R SPLUS #### [facility] [address] [place] [address] Geraldo Kandy RP2 Header 2 RESPIRATORY PANEL: BACTERIA Normal [facility] Comment on above: Performed By: #### R SPLUS #### [facility] [address] [place], [place] [address] Geraldo Kandy RP2 Header 4 EUA SEE BELOW Normal [facility] Comment on above: Result Comment: This test is not yet approved or cleared by the [place] FDA. When there are no FDA-approved or cleared tests available, and other criteria are met, FDA can make tests available under an emergency access mechanism called an Emergency Use Authorization (EUA). The EUA for this test is supported by the [place] of Health and Human Service?s (HHS?s) declaration [...] used). Performed By: #### R SPLUS #### [facility] [address] [place] [address] Geraldo Gaitan RSV Not detected Normal NOT DETECTED [facility] Comment on above: Performed By: #### R SPLUS #### [facility] [address] [place] [address] Geraldo Gaitan SARS-CoV-2 (COVID-19) RNA VIVIENNE+probe Ql (Unsp spec) Not detected Normal NOT DETECTED [facility] Comment on above: Performed By: #### R SPLUS #### [facility] [address] [place] [address] Geraldo Gaitan URINE MICROSCOPIC ONLYon BACTERIA MODERATE Normal NONE SEEN [facility] Comment on above: Performed By: #### Luis SHAH UMICRO #### [facility] [address] [place] [address] Geraldo Kandy Bacteria identified Cx Nom (U) INDICATED Normal [facility] Comment on above: Performed By: #### Luis SHAH UMICRO #### [facility] [address] [place] [address] Geraldo Kandy CAST NONE SEEN Normal NONE SEEN [facility] Comment on above: Performed By: #### Luis SHAH UMICRO #### [facility] [address] [place] [address] Geraldo Kandy Crystals LM Nom (Urine sed) NONE SEEN Normal NONE SEEN [facility] Comment on above: Performed By: #### Luis SHAH UMICRO #### [facility] [address] [place] [address] Geraldo Kandy Epithelial cells LM Ql (Urine sed) RARE Normal [facility] Comment on above: Performed By: #### Luis SHAH UMICRO #### [facility] [address] [place] [address] Geraldo Kandy MUCOUS NONE SEEN Normal NONE SEEN [facility] Comment on above: Performed By: #### Luis SHAH UMICRO #### [facility] [address] [place] [address] Geraldo Gaitan RBC 0-2 Normal 0-2 [facility] Comment on above: Performed By: #### MELODY CORDOVA #### [facility] [address] [place], [place] [address] Geraldo Gaitan WBC 5-10 Normal NONE SEEN [facility] Comment on above: Performed By: #### MELODY CORDOVA #### [facility] [address] [place], [place] [address] Geraldo Gaitan XR CHEST 1 Von 01-02-2020 [...] REMY NESS Date: 2020-01-02 18:52 Normal [facility] Vital Signs Date Time Vital Sign Value Performing Clinician Mikel eden 09-26-2024 14:01-0400 Body height 149.9 cm China Ortiz ASSISTANT PROFESSOR OF ENGLISH Work Phone: [facility] 09-26-2024 14:01-0400 Body mass index (BMI) [Ratio] 21.97 kg/m2 China Ortiz ASSISTANT PROFESSOR OF ENGLISH Work Phone: [facility] 09-26-2024 14:01-0400 Body weight 49.35 kg China Ortiz ASSISTANT PROFESSOR OF ENGLISH Work Phone: [facility] 09-26-2024 14:01-0400 Diastolic blood pressure 70 mm[Hg] China Ortiz ASSISTANT PROFESSOR OF ENGLISH Work Phone: [facility] 09-26-2024 14:01-0400 Heart rate 62 /min China Ortiz ASSISTANT PROFESSOR OF ENGLISH Work Phone: [facility] 09-26-2024 14:01-0400 SaO2% (BldA) [Mass fraction] 95 % China Ortiz ASSISTANT PROFESSOR OF ENGLISH Work Phone: [facility] 09-26-2024 14:01-0400 Systolic blood pressure 122 mm[Hg] China Ortiz ASSISTANT PROFESSOR OF ENGLISH Work Phone: [facility] 05-09-2024 10:42-0500 Diastolic blood pressure 70 mm[Hg] China Ortiz ASSISTANT PROFESSOR OF ENGLISH Work Phone: [facility] 05-09-2024 10:42-0500 Systolic blood pressure 120 mm[Hg] China Ortiz ASSISTANT PROFESSOR OF ENGLISH Work Phone: [facility] 05-09-2024 10:34-0500 Body height 149.9 cm China Ortiz ASSISTANT PROFESSOR OF ENGLISH Work Phone: [facility] 05-09-2024 10:34-0500 Body mass index (BMI) [Ratio] 20.28 kg/m2 China Ortiz ASSISTANT PROFESSOR OF ENGLISH Work Phone: [facility] 05-09-2024 10:34-0500 Body temperature 99.3 [degF] China Ortiz ASSISTANT PROFESSOR OF ENGLISH Work Phone: [facility] 05-09-2024 10:34-0500 Body weight 45.54 kg China Ortiz ASSISTANT PROFESSOR OF ENGLISH Work Phone: [facility] 05-09-2024 10:34-0500 Heart rate 86 /min China Ortiz ASSISTANT PROFESSOR OF ENGLISH Work Phone: [facility] 05-09-2024 10:34-0500 SaO2% (BldA) [Mass fraction] 96 % China Ortiz ASSISTANT PROFESSOR OF ENGLISH Work Phone: [facility] 01-24-2024 13:04-0500 Body height 149.9 cm Roger Vasquez DPM Work Phone: [facility] 01-24-2024 13:04-0500 Body mass index (BMI) [Ratio] 20.2 kg/m2 Roger Vasquez DPM Work Phone: [facility] 01-24-2024 13:04-0500 Body weight 45.36 kg Roger Vasquez DPM Work Phone: [facility] Encounters Encounter Date Encounter Type Care Provider Facility Start: 09-28-2024 End: 10-01-2024 Follow-up encounter China Ortiz ASSISTANT PROFESSOR OF ENGLISH Work Phone: [facility] Comment on above: Moderate aortic regu rgitation (Primary Dx); Mild aortic stenosis; SOB (shortness of breath) Start: 09-27-2024 End: 09-27-2024 ambulatory SHARI Amaral MIKE [facility] Start: 09-26-2024 End: 09-26-2024 Bamboo flowsheet China Ortiz ASSISTANT PROFESSOR OF ENGLISH Work Phone: [facility] Start: 09-26-2024 End: 09-26-2024 Bamboo flowsheet China Diana ASSISTANT PROFESSOR OF ENGLISH Work Phone: [facility] Start: 09-26-2024 End: 09-26-2024 Office outpatient visit 25 minutes China Ortiz ASSISTANT PROFESSOR OF ENGLISH Work Phone: [facility] Comment on above: Primary hypertension (Primary Dx); Stage 3b chronic kidney disease (CMS-HCC); Pure hypercholesterolemia ; Irregular heart beat; Shortness of breath; Chronic obstructive pulmonary disease, unspecified COPD type (HCC); Moderate aortic regurgitation Start: 09-26-2024 End: 09-26-2024 ambulatory CHINA ORTIZ Not Available Start: 06-06-2024 End: 06-06-2024 Clinisync Result Encounter Generic External Data Provider [facility] Unsolicited Start: 06-06-2024 End: 06-06-2024 Clinisync Result Encounter Generic External Data Provider [facility] Unsolicited Start: 05-09-2024 End: 05-09-2024 Bamboo flowsheet China Ortiz ASSISTANT PROFESSOR OF ENGLISH Work Phone: [facility] Start: 05-09-2024 End: 05-09-2024 Bamboo flowsheet China Ortiz ASSISTANT PROFESSOR OF ENGLISH Work Phone: [facility] Start: 05-09-2024 End: 05-09-2024 Office outpatient visit 15 minutes China Ortiz ASSISTANT PROFESSOR OF ENGLISH Work Phone: [facility] Comment on above: Chronic obstructive pulmonary disease with acute exacerbation (CMS/HCC) (Primary Dx) Start: 05-09-2024 End: 05-09-2024 ambulatory CHINA ORTIZ Not Available Start: 04-23-2024 End: 04-24-2024 Telephone encounter Shari Mckeon MD Work Phone: [facility] Start: 04-05-2024 End: 04-05-2024 Refill Shari Mckeon MD Work Phone: [facility] Comment on above: Mild intermittent as thma, unspecified whether complicated (CMS/HCC) Start: 02-20-2024 End: 02-20-2024 ambulatory Kei Espana MD Facility:[facility] Start: 02-07-2024 End: 02-07-2024 Refill Shari Mckeon MD Work Phone: [facility] Comment on above: Mild intermittent as thma, unspecified whether complicated (CMS/HCC) Start: 02-06-2024 End: 02-06-2024 ambulatory Kei Espana MD Facility:[facility] Start: 01-24-2024 End: 01-24-2024 Bamboo flowsheet Roger Vasquez DPM Work Phone: [facility] Start: 01-24-2024 End: 01-24-2024 Bamboo flowsheet Roger Vasquez DPM Work Phone: [facility] Start: 01-24-2024 End: 01-24-2024 Office outpatient visit 15 minutes Roger Vasquez DPM Work Phone: [facility] Comment on above: Dermatophytosis of n ail (Primary Dx); Dystrophic nail; Onychocryptosis; Pain of left great toe Start: 01-24-2024 End: 01-24-2024 ambulatory ROGER VASQUEZ Not Available Start: 01-23-2024 End: 01-23-2024 ambulatory Kei Espana MD Facility:[facility] Start: 01-09-2024 End: 01-09-2024 ambulatory Kei [...] 12-12-2023 End: 12-12-2023 ambulatory Kei Espana MD Facility:[facility] Start: 12-09-2023 End: 12-09-2023 Refill Shari Mckeon MD Work Phone: [facility] Comment on above: Mild intermittent as thma, unspecified whether complicated ([facility]) Start: 11-28-2023 End: 11-28-2023 ambulatory Kei Espana MD Facility:[facility] Start: 11-17-2023 End: 11-17-2023 Refill Shari Mckeon MD Work Phone: [facility] Comment on above: Essential hypertensi on ([facility]) Start: 10-04-2023 End: 10-04-2023 ambulatory [facility] Start: 09-05-2023 End: 09-05-2023 ambulatory Kei Espana MD Facility:[facility] Start: 08-22-2023 End: 08-22-2023 ambulatory Kei Espana MD Facility:[facility] Start: 07-25-2023 End: 07-25-2023 ambulatory Kei Espana MD Facility:[facility] Start: 07-11-2023 End: 07-11-2023 ambulatory Kei Espana MD Facility:[facility] Start: 04-27-2023 Telephone encounter Ede sierra DO Work Phone: [facility] 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 Start: 04-21-2023 Refill Alexander Aparicio ASSISTANT PROFESSOR OF ENGLISH Work Phone: [facility] Comment on above: Essential hypertensi on (CMS/HCC) Start: 07-26-2022 End: 07-26-2022 ambulatory SHARI MCKEON Facility:[facility] Start: 06-29-2022 End: 06-30-2022 ambulatory SHARI MCKEON Facility:[facility] Start: 10-24-2020 End: 10-25-[address] SHARI MCKEON Facility:[facility] Start: 09-30-2020 End: 10-01-[address] SHARI MCKEON Facility:[facility] Start: 02-01-2020 End: 02-01-[address] CARLOS EDUARDO MENENDEZ Facility:[facility] Start: 01-30-2020 Encounter for prepro cedural laboratory examination DR CARLOS EDUARDO MENENDEZ [facility] Start: 01-26-2020 End: 01-27-[address] SHARI MCKEON Facility:[facility] Start: 01-26-2020 End: 01-27-2020 Encounter for preprocedural laboratory examination DR SHARI MCKEON Facility:[facility] Start: 01-02-2020 End: 01-02-[address] BÁRBARA BLUE Facility:[facility] Start: 05-25-2018 End: 05-26-2018 Patient encounter procedure DEFAULT PHYSICIAN Facility:[facility] Procedures Date Procedure Procedure Detail Performing Clinician Start: 06-06-2024 Mri spinal canal tho racic w/o contrast matrl Generic External Data Provider Plan of Treatment Date Care Activity Detail Author Start: 11-12-2024 Influenza vaccination Influenza Vaccine (#1) [facility] Start: 10-01-2024 End: 10-01-2026 Echocardiogram 2D complete Echocardiogram 2D complete Echocardiography Routine Moderate aortic regurgitation Mild aortic stenosis SOB (shortness of breath) Expected: 10/01/2024 (Approximate), Expires: 10/01/2026 [facility] Work Phone: Comment on above: Expected: 10/01/2024 (Approximate), Expi res: 10/01/2026 Start: 09-26-2024 End: 09-26-2025 CBC W Auto Differential panel - Blood CBC and differential Lab Routine Shortness of breath Expected: 09/26/2024 (Approximate), Expires: 09/26/2025 [facility] Comment on above: Expected: 09/26/2024 (Approximate), Expi res: 09/26/2025 Start: 09-26-2024 End: 09-26-2025 Comprehensive metabolic 2000 panel - Serum or Plasma Comprehensive metabolic panel Lab Routine Stage 3b chronic kidney disease ([facility]) Shortness of breath Expected: 09/26/2024 (Approximate), Expires: 09/26/2025 [facility] Comment on above: Expected: 09/26/2024 (Approximate), Expi res: 09/26/2025 Start: 09-26-2024 End: 09-26-2025 ECG 12 lead ECG 12 lead ECG Routine Primary hypertension Irregular heart beat Shortness of breath Expected: 09/26/2024 (Approximate), Expires: 09/26/2025 [facility] Work Phone: Comment on above: Expected: 09/26/2024 (Approximate), Expi res: 09/26/2025 Start: 09-26-2024 End: 09-26-2025 Lipid 1996 panel - Serum or Plasma Lipid panel Lab Routine Primary hypertension Pure hypercholesterolemia Shortness of breath Expected: 09/26/2024 (Approximate), Expires: 09/26/2025 [facility] Comment on above: Expected: 09/26/2024 (Approximate), Expi res: 09/26/2025 Start: 09-26-2024 End: 09-26-2024 Patient encounter procedure 09/26/2024 2:00 PM EDT Office Visit [facility] [address] [place] [address] China Ortiz NP [address] [place] [address] Arrived [facility] Comment on above: Arrived Start: 06-16-2024 Medicare Annual Wellness (AWV) Medicare Annual Wellness (AWV) [facility] Start: 05-09-2024 End: 05-09-2024 Patient encounter procedure 05/09/2024 10:30 AM EST Office Visit [facility] [address] [place] [id number] China Ortiz NP [address] [place] [address] Arrived [facility] Comment on above: Arrived Start: 12-28-2023 End: 12-28-2023 Professional / ancillary services management 12/28/2023 9:00 AM EDT Ancillary Procedure [facility] [address] [facility] [address] [place] [id number] [facility] Start: 12-13-2023 End: 02-11-2025 MG Breast - bilateral Screening Bilateral screening mammogram Imaging Routine Encounter for screening mammogram for malignant neoplasm of breast Expected: 12/13/2023, Expires: 02/11/2025 [facility] Work Phone: Comment on above: Expected: 12/13/2023, Expires: Start: 11-13-2023 Influenza vaccination Influenza Vaccine (#1) [facility] Start: 08-02-2023 End: 08-02-2023 Patient encounter procedure 08/02/2023 9:00 AM EDT Office Visit [facility] [address] [facility] [address] [place] [id number] Ede Ramos DO [address] [facility] [address] [place] [address] [facility] Start: 05-06-2023 Medicare Annual Wellness (AWV) Medicare Annual Wellness (AWV) [facility] Immunizations Immunization Date Immunization Notes Care Provider Fa cili 01-19-2024 RSV, recombinant, protein subunit RSVpreF, adjuvant reconstitu, 120mcg/0.5mL, PF (Arexvy) China Ortiz ASSISTANT PROFESSOR OF ENGLISH Work Phone: [facility] 01-05-2024 influenza, high dose seasonal, preservative-free China Ortiz ASSISTANT PROFESSOR OF ENGLISH Work Phone: [facility] 01-05-2024 influenza virus vaccine, unspecified formulation China Ortiz ASSISTANT PROFESSOR OF ENGLISH Work Phone: [facility] 12-23-2022 Influenza, High-dose Seasonal, Quadrivalent, Preservative Free Alexander Hackenburg ASSISTANT PROFESSOR OF ENGLISH Work Phone: [facility] 12-23-2022 SARS-COV-2 (COVID-19 ) vaccine, mRNA, spike protein, LNP, PF, 50 mcg/0.5 mL Alexander Hackenburg ASSISTANT PROFESSOR OF ENGLISH Work Phone: [facility] 12-23-2022 influenza virus vaccine, unspecified formulation Shari Mckeon MD Work Phone: [facility] 12-01-2021 Influenza, Seasonal, Quadrivalent, Adjuvanted Alexander Hackenburg ASSISTANT PROFESSOR OF ENGLISH Work Phone: [facility] 12-01-2021 Seasonal, trivalent, recombinant, injectable influenza vaccine, preservative free Alexander Hackenburg ASSISTANT PROFESSOR OF ENGLISH Work Phone: [facility] 12-16-2020 Influenza, High-dose Seasonal, Quadrivalent, Preservative Free Alexander Hackenburg ASSISTANT PROFESSOR OF ENGLISH Work Phone: [facility] 02-14-2020 zoster vaccine recombinant Alexander Hackenburg ASSISTANT PROFESSOR OF ENGLISH Work Phone: [facility] 12-07-2019 influenza, seasonal, injectable Alexander Hackenburg ASSISTANT PROFESSOR OF ENGLISH Work Phone: [facility] 11-13-2019 influenza, injectabl e, quadrivalent, preservative free Alexander Hackenburg ASSISTANT PROFESSOR OF ENGLISH Work Phone: [facility] 11-13-2019 zoster vaccine recombinant Alexander Hackenburg ASSISTANT PROFESSOR OF ENGLISH Work Phone: [facility] 11-12-2019 zoster vaccine recombinant Alexander Hackenburg ASSISTANT PROFESSOR OF ENGLISH Work Phone: [facility] 11-29-2018 Seasonal trivalent influenza vaccine, adjuvanted, preservative free Alexander Hasobiaenburg ASSISTANT PROFESSOR OF ENGLISH Work Phone: [facility] 11-30-2017 influenza, high dose seasonal, preservative-free Alexander Hasobiaenburg ASSISTANT PROFESSOR OF ENGLISH Work Phone: [facility] 11-24-2017 Seasonal trivalent influenza vaccine, adjuvanted, preservative free Alexander Hasobiaenburg ASSISTANT PROFESSOR OF ENGLISH Work Phone: [facility] 11-18-2016 influenza, high dose seasonal, preservative-free Alexander Hasobiaenburg ASSISTANT PROFESSOR OF ENGLISH Work Phone: [facility] Work Phone: 11-18-2016 pneumococcal conjuga te vaccine, 13 valent Alexander Hasobiaenburg ASSISTANT PROFESSOR OF ENGLISH Work Phone: [facility] 11-18-2016 Seasonal trivalent influenza vaccine, adjuvanted, preservative free Alexander Patrickenburg ASSISTANT PROFESSOR OF ENGLISH Work Phone: [facility] 11-18-2016 tetanus toxoid, redu greg diphtheria toxoid, and acellular pertussis vaccine, adsorbed Alexander Patrickenburg ASSISTANT PROFESSOR OF ENGLISH Work Phone: [facility] 11-12-2016 pneumococcal polysaccharide vaccine, 23 valent Alexander Magyburg ASSISTANT PROFESSOR OF ENGLISH Work Phone: [facility] 12-11-2015 influenza, high dose seasonal, preservative-free Alexander Patrickenburg ASSISTANT PROFESSOR OF ENGLISH Work Phone: [facility] 12-30-2014 influenza virus vaccine, whole virus Alexander Hasobiaenburg ASSISTANT PROFESSOR OF ENGLISH Work Phone: [facility] 12-30-2014 influenza, injectabl e, quadrivalent, preservative free Alexander Hackenburg ASSISTANT PROFESSOR OF ENGLISH Work Phone: [facility] 05-10-2014 pneumococcal conjuga te vaccine, 13 valent Alexander Hackenburg ASSISTANT PROFESSOR OF ENGLISH Work Phone: [facility] 12-13-2013 influenza virus vaccine, whole virus Alexander Hasobiaenburg ASSISTANT PROFESSOR OF ENGLISH Work Phone: [facility] 01-12-2013 pneumococcal Conjuga te, unspecified formulation Alexander Hackenchiqui ASSISTANT PROFESSOR OF ENGLISH Work Phone: [facility] 01-12-2013 seasonal influenza, intradermal, preservative free Alexander Deansobialeechiqui ASSISTANT PROFESSOR OF ENGLISH Work Phone: [facility] 12-27-2012 pneumococcal polysaccharide vaccine, 23 valent Alexander Nguyentony ASSISTANT PROFESSOR OF ENGLISH Work Phone: [facility] Payers Date Payer Category Payer Unknown 2017 Medicare [employer] MEDICARE ADVANTAGE [facility] MEDICARE ADVANTAGE [id number] 2017-Present [address] [place] [address] [id number] 2017 Medicare (Managed Care) [facility] [id number] 1959 Unknown [id number] 1944 Unknown [id number] 2..840.1.014928.3.579. 2.647 1944 Unknown [id number] 2..840.1.924072.3.579. 2.593 1944 Unknown [id number] 2.16.840.1.305139.3.579. 2.593 1944 Unknown [id number] 2.16.840.1.140080.3.579. 2.593 1944 Unknown [id number] 2.16.840.1.090263.3.579. 2.593 1944 Unknown [id number] 2.16.840.1.033765.3.579. 2.593 1944 Unknown [id number] 2.16.840.1.262507.3.579. 2.718 1944 Unknown [id number] 2.16.840.1.862901.3.579. 2.718 1944 Unknown [id number] 2.16.840.1.025624.3.579. 2.196 1944 Unknown [id number] 2.16.840.1.343851.3.579. 2.196 1944 Unknown [id number] 2.16.840.1.115982.3.579. 2.196 1944 Unknown [id number] 2.16840.1.040715.3.579. 2.196 1944 Unknown [id number] 2.16.840.1.375053.3.579. 2.196 1944 Unknown [id number] 2.16.840.1.012130.3.579. 2.196 1944 Unknown [id number] 2.16.840.1.297046.3.579. 2.196 1944 Unknown [id number] 2.16840.1.419821.3.579. 2.196 1944 Unknown [id number] 2.16.840.1.031036.3.579. 2.196 1944 Unknown [id number] 2.16.840.1.608228.3.579. 2.196 1944 Unknown [id number] 2.16.840.1.640467.3.579. 2.1259 1944 Unknown [id number] 2.16.840.1.916209.3.579. 2.1259 1944 Unknown [id number] 2.16.840.1.570385.3.579. 2.1259 1944 Unknown [id number] 2.16.840.1.502977.3.579. 2.1259 1944 Unknown [id number] 2.16.840.1.313199.3.579. 2.1286 1944 Unknown [id number] 2.16.840.1.237556.3.579. 2.1286 Social History Date Type Detail Facility Start: 09-17-[address] [facility] Never smoked tobacco [facility] Start: 09-17-2022 Tobacco use and exposure Smoke less tobacco non-user [facility] Start: 04-18-2023 End: 09-26-2024 Alcohol intake Current drinker of alcohol (finding) [...] Never [facility] Clinical Notes 02-01-2020 to 10-01-2024 Telephone Encounter - Shari Olmos MA - 10/01/2024 12:45 PM EDTTelephone Encounter - Shari Olmos MA - 10/01/2024 12:45 PM Patrice Ortiz NP - 09/26/2024 2:00 PM EDTPatient Instructions Note Date & Type Note Facility 10-01-2024 Telephone encounter Note [facility] faxing over the EKG. [facility] 10-01-2024 Telephone encounter Note ----- Message from China Ortiz sent at 09/28/2024 10:08 AM EDT ----- Labs stable, did she complete her EKG? We should also repeat her echo as she had mild to moderate stenosis of her aortic valve and we want to make sure this is not worsening as it can be a cause of her symptoms as well ----- Message ----- From: Kevyn Phobious Lab Results In Sent: 09/27/2024 9:07 AM EDT To: China Ortiz NP [facility] 10-01-2024 Miscellaneous Notes [facility] faxing over the EKG. ----- Message from China Diana sent at 09/28/2024 10:08 AM EDT ----- Labs stable, did she complete her EKG? We should also repeat her echo as she had mild to moderate stenosis of her aortic valve and we want to make sure this is not worsening as it can be a cause of her symptoms as well ----- Message ----- From: Kevyn Phobious Lab Results In Sent: 09/27/2024 9:07 AM EDT To: China Ortiz NP ----- Message from China Diana sent at 09/28/2024 10:08 AM EDT ----- Labs stable, did she complete her EKG? We should also repeat her echo as she had mild to moderate stenosis of her aortic valve and we want to make sure this is not worsening as it can be a cause of her symptoms as well ----- Message ----- From: Kevyn Phobious Lab Results In Sent: 09/27/2024 9:07 AM EDT To: China Ortiz NP She did get the EKG done the next morning. ( Ill call them to get report)And she is agreeable to the echo if you place the order thank you! ----- Message from China Ortiz sent at 09/28/2024 10:08 AM EDT ----- Labs stable, did she complete her EKG? We should also repeat her echo as she had mild to moderate stenosis of her aortic valve and we want to make sure this is not worsening as it can be a cause of her symptoms as well ----- Message ----- From: Interface, [facility] Lab Results In Sent: 09/27/2024 9:07 AM EDT To: China Ortiz NP documented in this encounter [facility] 10-01-2024 Telephone encounter Note ----- Message from China Ortiz sent at 09/28/2024 10:08 AM EDT ----- Labs stable, did she complete her EKG? We should also repeat her echo as she had mild to moderate stenosis of her aortic valve and we want to make sure this is not worsening as it can be a cause of her symptoms as well ----- Message ----- From: Interface, [facility] Results In Sent: 09/27/2024 9:07 AM EDT To: China Ortiz NP [facility] 10-01-2024 Telephone encounter Note She did get the EKG done the next morning. ( Ill call them to get report)And she is agreeable to the echo if you place the order thank you! [facility] 10-01-2024 Telephone encounter Note ----- Message from China Ortiz sent at 09/28/2024 10:08 AM EDT ----- Labs stable, did she complete her EKG? We should also repeat her echo as she had mild to moderate stenosis of her aortic valve and we want to make sure this is not worsening as it can be a cause of her symptoms as well ----- Message ----- From: Kevyn [facility] Results In Sent: 09/27/2024 9:07 AM EDT To: China Ortiz NP [facility] 09-26-2024 History of Present illness Narrative Associated Problem(s): Stage 3b chronic kidney disease ([facility]-HCC) Orders: Comprehensive metabolic panel; Future -check renal function. Avoid nephrotoxic medications. Associated Problem(s): Pure hypercholesterolemia Orders: Lipid panel; Future -check lipid panel Associated Problem(s): Chronic obstructive pulmonary disease (HCC) -stable with inhalant therapy Associated Problem(s): Moderate aortic regurgitation -consider cardiology referral pending EKG results. Images from the original note were not included. Subjective Patient ID: Radha Cuadra is a 79 y.o. female who presents for Shortness of Breath. HPI History of Present Illness The patient presents for evaluation of shortness of breath. She reports experiencing increased shortness of breath, particularly when ascending stairs. She does not report any associated cough, expectoration, or wheezing. She has not had any weight changes but notes a recent trend towards weight gain. She is not under the care of a tavern car attendant and does not recall undergoing an echocardiogram last year. She reports no chest pain or palpitations. Her current medication regimen includes a daily inhaler and albuterol, which she uses only during episodes of bronchitis. She denies any swelling in her legs. Objective There were no vitals taken for this visit. Physical Exam Physical Exam Cardiovascular: Irregular heart rhythm Assessment & Plan Primary hypertension Orders: ECG 12 lead; Future Lipid panel; Future -Discussed current management plan. Goal BP less then 130/80. Discussed heart healthy diet, increase fruits and vegetables, limit salt intake. Encouraged increase physical exercise, try to be as active as possible at least 150 mins per week. Importance of weight management with a goal BMI less then 27 discussed. Discussed complications of uncontrolled blood pressure. Patient instructed to monitor BP's 1-2 times a week, keep a log, and bring to next visit. Barriers to care and medication compliance discussed. Patient voices understanding of meds. Stage 3b chronic kidney disease (CMS-HCC) Orders: Comprehensive metabolic panel; Future -check renal function. Avoid nephrotoxic medications. Pure hypercholesterolemia Orders: Lipid panel; Future -check lipid panel Irregular heart beat Orders: ECG 12 lead; Future -irregular today, will check labs and obtain EKG for further evaluation. EKG order printed and provided to patient, instructed to go to the hospital to have performed. Shortness of breath Orders: ECG 12 lead; Future CBC and differential; Future Comprehensive metabolic panel; Future Lipid panel; Future Chronic obstructive pulmonary disease, unspecified COPD type (HCC) -stable with inhalant therapy Moderate aortic regurgitation -consider cardiology referral pending EKG results. Assessment & Plan 1. Shortness of breath. - Increased shortness of breath noted, no associated cough or wheezing. - Physical exam reveals irregular heart rhythm. - EKG ordered to evaluate for potential atrial fibrillation; blood work ordered for routine monitoring. - Continues daily use of maintenance inhaler; albuterol used only during episodes of bronchitis. Refuses wellness today documented in this encounter [facility] 05-09-2024 History of Present illness Narrative Images [...] PRN atorvastatin (LIPITOR) 20 mg, Oral, Daily lbcwivesiw-girkibtvwvbti-nqwicket 50-325-40 MG tablet 1 tablet, Every 4 [...] treatments as prescribed. documented in this encounter [facility] 04-23-2024 Telephone encounter Note Pt needs a confirmation of 3 mos supply sent to [facility] Fluticasone-salmeterol 250-50 mcg/act aerosol powder [facility] 04-23-2024 Miscellaneous Notes Pt needs a confirmation of 3 mos supply sent to [facility] Fluticasone-salmeterol 250-50 mcg/act aerosol powder documented in this encounter [facility] 01-24-2024 History of Present illness [...] once daily, Disp: 90 tablet, Rfl: 0 wwjwridqqk-zzblglspdmyel-ekflfpym 50-325-40 MG tablet, Take 1 tablet by [...] Roger Vasquez DPM documented in this encounter [facility] 01-24-2024 Instructions Roger Vasquez DPM - 01/24/2024 1:00 PM EST As noted documented in this encounter [facility] 12-22-2023 Telephone encounter Note Approvals with refills [facility] 12-22-2023 Miscellaneous Notes Approvals with refills documented in this encounter [facility] 12-13-2023 Telephone encounter Note Patient called and would like an order for a mammogram sent over. Last one on 12/20/2022. Thank you [facility] 12-13-2023 Miscellaneous Notes Patient called and would like an order for a mammogram sent over. Last one on 12/20/2022. Thank you documented in this encounter [facility] 11-17-2023 Telephone encounter Note Refills sent. [facility] 11-17-2023 Miscellaneous Notes Refills sent. documented in this encounter [facility] 04-27-2023 Telephone encounter Note Called pt and informed [facility] 04-27-2023 Miscellaneous Notes Called pt and informed Pt called stated she had LT TSA 07/26/22 and is getting a cavity filled and needs [facility] [place]. Allergies: NKDA . Her call back [phone] documented in this encounter [facility] 04-27-2023 Telephone encounter Note Pt called stated she had LT TSA 07/26/22 and is getting a cavity filled and needs antibiotic called into [facility] in [place]. Allergies: NKDA . Her call back [phone] [facility] 04-21-2023 Telephone encounter Note Refills sent. [facility] 04-21-2023 Miscellaneous Notes Refills sent. documented in this encounter [facility] 07-27-2022 Note [phone] [id number] [facility] 07-26-2022 Note [facility] SURGERY Clinical Discharge Summary PERSON INFORMATION Name RADHA CUADRA Age 77 Years 1945 Sex FEMALE Language Turkish PCP SHARI MCKEON Marital Status Med Service Ambulatory Surgery N 18-22-14 Acct# Arrival 07/26/2022 05:52:10 Visit Reason SURGERY - LEFT REVERSE TOTAL SHOULDER - ARTHREX Acuity LOS 053 02:57 Address: [address] [place] [address] [place] [address] Comment: PROVIDER INFORMATION VITALS INFORMATION Vital Sign [...] REASON INCOMPLETE INFORMATION (more content not included)... [facility] 02-01-2020 Note OPERATIVE NOTE OPERATION [...] position. She was sedated by the nurse bottom loader. Bite block was placed in her mouth. [...] patient tolerated the procedure without any difficulties. [facility] SIGNED AND APPROVED BY: DR CARLOS EDUARDO MENENDEZ . 02/07/2020 09:15:00 [facility] Evaluation note Diagnosis Essential hypertension (CMS/HCC) Unspecified [...] (CMS/HCC)- Primary [facility] Diagnosis Primary hypertension- Primary Unspecified essential hypertension Stage 3b chronic kidney disease (CMS-HCC) Pure hypercholesterolemia Pure hypercholesterolemia Irregular heart beat Unspecified cardiac dysrhythmia Shortness of breath Chronic obstructive pulmonary disease, unspecified COPD type (HCC) Moderate aortic regurgitation [facility] Diagnosis Primary hypertension- Primary Unspecified essential hypertension Stage 3b chronic kidney disease (CMS-HCC) Pure hypercholesterolemia Pure hypercholesterolemia Irregular heart beat Unspecified cardiac dysrhythmia Shortness of breath Chronic obstructive pulmonary disease, unspecified COPD type (HCC) Moderate aortic regurgitation Moderate aortic regurgitation- Primary Mild aortic stenosis Aortic valve disorders SOB (shortness of breath) Shortness of breath documented in this encounter [facility] Summary [...] section and content) DATE CREATED AUTHOR 05/27/2018 [facility] DATE CREATED AUTHOR AUTHOR'S ORGANIZ ATION 11/06/2020 [facility] DATE CREATED AUTHOR AUTHOR'S ORGANIZ ATION 05/12/2022 [facility] DATE CREATED AUTHOR AUTHOR'S ORGANIZ ATION 07/28/2022 [facility] DATE CREATED AUTHOR AUTHOR'S ORGANIZ ATION 03/05/2024 [facility] DATE CREATED AUTHOR AUTHOR'S ORGANIZ ATION 09/30/2024 [facility] dical Specialists [facility] DATE CREATED AUTHOR AUTHOR'S ORGANIZ ATION 09/30/2024 [facility] Reason for Visit (unrecogniz ed section and [...] help with discomfortSS: 6 Reason Comments Cough Reason Comments Shortness of Breath Care Teams (unrecognized sec tion and content) Media Relations Director Relationship Specialty Start Date End Date Alexander Aparicio NP [address] [place] [address] PCP - Cristobal FIGUEROA 03/21/21 Shari Mckeon MD [address] [place] [address] PCP - General Family Medicine 07/26/22 Media Relations Director Relationship Specialty Start Date End Date Alexander Aparicio NP [address] [place] [address] PCP - Cristobal FIGUEROA 03/21/21 Shari Mckeon MD [address] [place] [address] PCP - General Family Medicine 07/26/22 Media Relations Director Relationship Specialty Start Date End Date Alexander Aparicio NP [address] [place] [address] PCP - Cristobal FIGUEROA 03/21/21 Shari Mckeon MD [address] [place] [address] PCP - General Family Medicine 07/26/22 Media Relations Director Relationship Specialty Start Date End Date Alexander Aparicio NP [address] [place] [address] PCP - Cristobal FIGUEROA 03/21/21 Shari Mckeon MD [address] [place] [address] PCP - General Family Medicine 07/26/22 Media Relations Director Relationship Specialty Start Date End Date Alexander Aparicio NP [address] [place] [address] PCP - Cristobal FIGUEROA 03/21/21 Shari Mckeon MD [address] [place] [address] PCP - General Family Medicine 07/26/22 Media Relations Director Relationship Specialty Start Date End Date Alexander Aparicio NP [address] [place] [address] PCP - Cristobal FIGUEROA 03/21/21 Shari Mckeon MD [address] [place] [address] PCP - General Family Medicine 07/26/22 Media Relations Director Relationship Specialty Start Date End Date Alexander Aparicio NP [address] [place] [address] PCP - Cristobal FIGUEROA 03/21/21 Shari Mckeon MD [address] [place] [address] PCP - General Family Medicine 07/26/22 Media Relations Director Relationship Specialty Start Date End Date Alexander Aparicio NP [address] [place] [address] PCP - Cristobal FIGUEROA 03/21/21 Shari Mckeon MD [address] [place] [address] PCP - General Family Medicine 07/26/22 Media Relations Director Relationship Specialty Start Date End Date Alexander Aparicio NP [address] [place] [address] PCP - Cristobal FIGUEROA 03/21/21 Shari Mckeon MD [address] [place] [address] PCP - General Family Medicine 07/26/22 Media Relations Director Relationship Specialty Start Date End Date Shari Mckeon MD [address] [place] [address] PCP - General Family Medicine 07/26/22 Media Relations Director Relationship Specialty Start Date End Date Shari Mckeon MD [address] [place] [address] PCP - General Family Medicine 07/26/22 Media Relations Director Relationship Specialty Start Date End Date Shari Mckeon MD [address] [place] [address] PCP - General Family Medicine 07/26/22 Media Relations Director Relationship Specialty Start Date End Date Shari Mckeon MD [address] [place] [address] PCP - General Family Medicine 07/26/22 Media Relations Director Relationship Specialty Start Date End Date Shari Mckeon MD [address] [place] [address] PCP - General Family Medicine 07/26/22 FOR [...] BE BASED ON THE PRIMARY CLINICAL RECORDS. [facility]. provides no warranty or guarantee of the accuracy or completeness of information in this document.
--- NOTE | 2024-10-05 08:37 | XR_ITS ---
[facility] [place] [id number] Patient Name: TRACI BARRAZA MRN: [id number] date: 1945 Sex: F Assigned Patient Location: ER Current Patient Location: ER Accession/Order Number: [id number] Exam Date: 10/05/2024 09:47 Report Date: 10/05/2024 09:50 At the request of: SANDRA BARRERA MD Procedure: XR thoracic spine 2V THORACIC SPINE - - 3 views CLINICAL HISTORY: Atraumatic pain COMPARISON: MRI 06/06/2024 FINDINGS: Dextrocurvature of the thoracic spine. Diffuse osteopenia. Multilevel moderate degenerative change with multilevel intervertebral space narrowing and endplate osteophytosis.. No definite acute compression deformity. Mild loss of height at T6 appears be new from MRI thoracic spine. XR/XR thoracic spine 2V IMPRESSION: Multilevel degenerative change. Negative acute compression fracture. Impression dictated by: Delfin Bourne M.D. 10/05/2024 9:50 AM Dictation Location: [place] [address] Electronically authenticated by: [id number] Y Date: 10/05/2024 09:50
--- NOTE | 2024-10-05 08:37 | XR_ITS ---
[place] [id number] Patient Name: TRACI BARRAZA MRN: [id number] date: 1945 Sex: F Assigned Patient Location: ER Current Patient Location: ER Accession/Order Number: [id number] Exam Date: 10/05/2024 09:50 Report Date: 10/05/2024 09:52 At the request of: SANDRA BARRERA MD Procedure: XR lumbar spine 2-3V 2 views lumbar spine INDICATION: Atraumatic pain COMPARISON: None FINDINGS: Moderate levocurvature. Moderate severe multilevel intervertebral space narrowing greatest in the upper lumbar levels. Moderate severe facet arthropathy L4-S1. No evidence acute compression fracture or malalignment. Aortic vascular disease. XR/XR lumbar spine 2-3V IMPRESSION: Moderate to severe degenerative changes greatest involving upper lumbar spine levels. Impression dictated by: Delfin Bourne M.D. 10/05/2024 9:52 AM Dictation Location: [place] [address] Electronically authenticated by: [id number] Y Date: 10/05/2024 09:52
--- NOTE | 2024-10-05 08:39 | ED.GENADUL1 ---
HPI HPI - General Adult General Chief complaint: Back Pain/Injury Stated complaint: BACK PAIN Time Seen by Provider: 10/05/24 08:29 Source: patient and family Mode of arrival: Wheelchair Limitations: no limitations History of Present Illness HPI narrative: 79-year-old female presents for back pain. She has a history of chronic back issues and sees pain management. She took her Tylenol 3 but it did not seem to help. There is been no injury or unusual activity. No dysuria or hematuria. The pain is midline and she seems to point to the lower thoracic and upper lumbar areas to indicate area of pain. No flank pain. Related Data Home Medications ?Medication ?Instructions ?Recorded ?Confirmed calcium 600 mg (as 1 tab PO BID 07/11/23 10/05/24 carbonate)-vitamin D3 5 mcg (200 unit) tablet (Calcium 600 + D(3)) losartan 100 mg tablet 100 mg PO DAILY 07/11/23 10/05/24 multivitamin-ferrous 1 tab PO DAILY 07/11/23 10/05/24 fumarate-folic acid 18 mg-400 mcg tablet (Centrum Women) trazodone 50 mg tablet 50 mg PO DAILY 07/11/23 10/05/24 albuterol 90 mcg/actuation aerosol mcg inhalation BID 02/01/24 inhaler metoprolol succinate 25 mg 25 mg PO DAILY 10/05/24 10/05/24 tablet,extended release 24 hr Previous Rx's ?Medication ?Instructions ?Recorded acetaminophen 300 mg-codeine 30 mg 1 tab PO BID PRN pain #60 tabs 01/11/24 tablet acetaminophen 300 mg-codeine 30 mg 1 tab PO BID PRN pain #60 tabs 02/23/24 tablet acetaminophen 300 mg-codeine 30 mg 1 tab PO BID PRN pain #60 tabs 03/28/24 tablet acetaminophen 300 mg-codeine 30 mg 1 tab PO BID PRN pain #60 tabs 06/25/24 tablet hydrocodone 5 mg-acetaminophen 325 1 tab PO Q6H PRN pain 5 days #15 10/05/24 mg tablet tabs Allergies Allergy/AdvReac Type Severity Reaction Status Date / Time No Known Drug Allergies Allergy Verified 10/05/24 08:21 Opioid HPI Opioid Management Most Recent Opioid Data: Last Pain Scale 10 Today, 08:49 Last MAR Pain Assessment Today, 08:49 Review of Systems ROS Narrative A ten point review of systems is negative except as noted above. PFSH PFSH Medical History Osteoarthritis ?M19.90 - Unspecified osteoarthritis, unspecified site (ICD-10) Heart murmur ?R01.1 - Cardiac murmur, unspecified (ICD-10) Surgical History History of total shoulder replacement ?Z96.619 - Presence of unspecified artificial shoulder joint (ICD-10) History of total knee arthroplasty ?Z96.659 - Presence of unspecified artificial knee joint (ICD-10) History of carpal tunnel release ?Z98.890 - Other specified postprocedural states (ICD-10) Social History Little interest or pleasure in doing things: not at all Feeling down, depressed, or hopeless: not at all Exam Narrative Exam Narrative: Nurses note and vital signs reviewed and patient is not hypoxic. General: The patient appears well and in no apparent distress. Patient is resting comfortably on cart. Skin: Warm, dry, no pallor noted. There is no rash noted. Head: Normocephalic, atraumatic Eye: Normal conjunctiva, no drainage Ears, Nose, Mouth, and Throat: oral mucosa is moist. Nares patent. Cardiovascular: Regular Rate and Rhythm Respiratory: Patient is in no distress, no accessory muscle use, lungs are clear to auscultation, no wheezing, rales or rhonchi Back: No bruise or rash or palpable tenderness. GI: Soft and nontender Musculoskeletal: Her back is examined. There is no bruise or rash or palpable tenderness. Neurological: A&O, normal speech; motor strength intact in her lower extremities. Psychiatric: Cooperative Constitutional Vital Signs, click to edit/add: Last Vital Signs Temp 98 F 10/05/24 08:18 Pulse 76 10/05/24 08:18 Resp 18 10/05/24 08:18 BP 145/72 H 10/05/24 08:18 Pulse Ox 95 10/05/24 08:18 O2 Del Method Room Air 10/05/24 08:18 Course Vital Signs Vital signs: Vital Signs Temperature 98 F 10/05/24 08:18 Pulse Rate 76 10/05/24 08:18 Respiratory Rate 18 10/05/24 08:18 Blood Pressure 145/72 H 10/05/24 08:18 Pulse Oximetry 95 10/05/24 08:18 Oxygen Delivery Method Room Air 10/05/24 08:18 Temperature 98 F 10/05/24 08:18 Pulse Rate 76 10/05/24 08:18 Respiratory Rate 18 10/05/24 08:18 Blood Pressure 145/72 H 10/05/24 08:18 Pulse Oximetry 95 10/05/24 08:18 Oxygen Delivery Method Room Air 10/05/24 08:18 Medical Decision Making MDM Narrative Medical decision making narrative: X-rays show degenerative changes but no acute findings. Urinalysis also negative. She was given IM Toradol and feels much better now and was able to sleep. I have spoken to Kecia at the pain management office and we have agreed that I will prescribe the patient a limited supply of [place] and their office will check up with the patient next week. Treatment diagnosis and follow-up were discussed with the patient and her family. Differential Diagnosis Differential Diagnosis: Arthritis, compression fracture, UTI Lab Data Lab results reviewed: Yes I reviewed the patient's lab results Labs: Lab Results 10/05/24 Range/Units 09:09 Urine Color Lt. yellow (YELLOW) Urine Clarity Clear (CLEAR) Urine pH 6.5 (5.0-9.0) Ur Specific [place] 1.020 (1.005-1.025) Urine Protein Negative (NEG/TRACE) mg/dL Urine Glucose (UA) Negative (NEGATIVE) mg/dL Urine Ketones Negative (NEGATIVE) mg/dL Urine Occult Blood Negative (NEGATIVE) Urine Nitrite Negative (NEGATIVE) Urine Bilirubin Negative (NEGATIVE) Urine Urobilinogen 0.2 (0.2-1.0) EU/dL Ur Leukocyte Esterase Trace A (NEGATIVE) Urine RBC None seen (0-2) #/HPF Urine WBC 0-2 A (NONE SEEN) #/HPF Ur Squamous Epith Cells Few A (NONE/RARE) #/LPF Urine Crystals None seen (None Seen) #/HPF Urine Bacteria Trace A (NONE SEEN) #/HPF Urine Casts None seen (NONE SEEN) #/LPF Urine Mucus None seen (NONE SEEN) Imaging Data Thoracic, lumbar spine x-rays: Radiologist's impression: ITS Impressions Lumbar Spine X-Ray 10/05/24 08:37 IMPRESSION: Moderate to severe degenerative changes greatest involving upper lumbar spine levels. Impression dictated by: Delfin Bourne M.D. 10/05/2024 9:52 AM Dictation Location: [email or web address] Electronically authenticated by: [id number] Y Date: 10/05/2024 09:52 Thoracic Spine X-Ray 10/05/24 08:37 IMPRESSION: Multilevel degenerative change. Negative acute compression fracture. Impression dictated by: Delfin Bourne M.D. 10/05/2024 9:50 AM Dictation Location: [email or web address] Electronically authenticated by: [id number] Y Date: 10/05/2024 09:50 Discharge Plan Discharge Chief Complaint: Back Pain/Injury Clinical Impression: Low back pain Patient Disposition: Home, Self-Care Time of Disposition Decision: 10:42 Condition: Good Mode of Transportation: Private Vehicle Prescriptions / Home Meds: New hydrocodone-acetaminophen 5-325 mg tablet 1 tab PO Q6H PRN (Reason: pain) 5 Days Qty: 15 0RF No Action metoprolol succinate 25 mg tablet extended release 24 hr 25 mg PO DAILY losartan 100 mg tablet 100 mg PO DAILY Centrum Women 18-400 mg-mcg tablet 1 tab PO DAILY calcium carbonate-vitamin D3 [Calcium 600 + D(3)] 600 mg-5 mcg (200 unit) tablet 1 tab PO BID trazodone 50 mg tablet 50 mg PO DAILY acetaminophen-codeine 300-30 mg tablet 1 tab PO BID PRN (Reason: pain) Qty: 60 0RF acetaminophen-codeine 300-30 mg tablet 1 tab PO BID PRN (Reason: pain) Qty: 60 0RF acetaminophen-codeine 300-30 mg tablet 1 tab PO BID PRN (Reason: pain) Qty: 60 0RF albuterol 90 mcg/actuation aerosol inhalation BID acetaminophen-codeine 300-30 mg tablet 1 tab PO BID PRN (Reason: pain) Qty: 60 0RF Print Language: Khmer Instructions: Acute Low Back Pain (ED) Referrals: KELLY MCKEON [Primary Care Provider, Family Practice] - 1 week
[2024-10-05] MEDS: KETOROLAC TROMETHAMINE 60 MG/2 ML VIAL IM (08:49)
[2024-10-05 09:25] LABS: Glucose Urine UA NEGATIVE (NEGATIVE)
[2024-10-05 09:38] LABS: Cast Seen? NONE SEEN #/LPF (NONE SEEN); Crystals Seen? None Seen #/HPF (None Seen)
[2024-10-05 10:51] VITALS: BP 126/69; PULSE 67; O2SAT 99
== END 2024-10-05 10:51 | disposition home or self-care (01) ==
PROVIDERS: Emergency Provider Emergency Medicine; PCP Family Medicine
DX: M54.50 Low back pain, unspecified (principal); Z96.619 Presence of unspecified artificial shoulder joint; Z96.659 Presence of unspecified artificial knee joint
CPT/HCPCS: 72070; 72100; 81001; 96372; 99285; J1885

== ENCOUNTER 2024-10-05 21:15 | Emergency (ER) | payer MEDICARE, SELFPAY ==
[2024-10-05 21:19] VITALS: BP 130/70; PULSE 83; TEMP 36.6; O2SAT 95; BMI 21.8
--- OUTSIDE RECORDS SUMMARY | 2024-10-05 21:21 | XMS_ITS | CCD ---
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 CURRENT DRUG THERAPY] Onset: 02-14-2020 Episodic Other aftercare (1 source) intermediate designer (current) use of aspirin; Translations: [ASSISTED CURRENT [...] MR Thoracic spine WO contras ton 06-06-2024 [place] [address] Magnetic Resonance Report Signed Patient: RADHA CUADRA MR#: [id number] : 1945 Acct:[id number] Age/Sex: 79 / F ADM Date: 06/06/24 Loc: MRI Attending Dr: Rinku Lopez NP Ordering Physician: Rinku Lopez NP Date of Service: 06/06/24 Procedure(s): MR thoracic spine wo con Accession Number(s): [id number] cc: Rinku Lopez NP; SHARI MCKEON [place] [id number] Patient Name: RADHA CUADRA MRN: [id number] date: 1945 Sex: F Assigned Patient Location: MRI Current Patient Location: MRI Accession/Order Number: [id number] Exam Date: 06/06/2024 14:56 Report Date: 06/06/2024 [...] Gomez Jr., D.O.06/06/2024 2:58 PM Dictation Location: [place] [address] Electronically authenticated by: [id number] Y Date: 06/06/2024 14:58 Dictated By: Alejandro Gomez M.D. Signed By: 06/06/24 1501 DD/ 1458 TD/TT: [employer] Operator: [facility] Radiology, Radiologingrid barksdale MD - 06/06/2024 [place] [address] Magnetic Resonance Report Signed Patient: RADHA CUADRA MR#: [id number] : 1945 Acct:[id number] Age/Sex: 79 / F ADM Date: 06/06/24 Loc: MRI Attending Dr: Rinku Lopez NP Ordering Physician: Rinku Lopez NP Date of Service: 06/06/24 Procedure(s): MR thoracic spine wo con Accession Number(s): [id number] cc: Rinku Lopez NP; SHARI MCKEON [place] [address] Patient Name: RADHA CUADRA MRN: [facility]:[id number] date: 1945 Sex: F Assigned Patient Location: MRI Current Patient Location: MRI Accession/Order Number: [id number] Exam Date: 06/06/2024 14:56 Report Date: 06/06/2024 [...] Gomez Jr., D.O.06/06/2024 2:58 PM Dictation Location: [facility] [place] Electronically authenticated by: [id number] Y Date: 06/06/2024 14:58 Dictated By: Alejandro Gomez M.D. Signed By: 06/06/24 1501 DD/ 1458 TD/TT: [employer] Operator: [facility] Radiology Study observation (narrative) [facility] [employer] MR Thoracic spine WO contras tOrdered By: Radiologist Radiology on 06-06-2024 [facility] [employer] Work Phone: BI MAMMOGRAM SCREENING TOMOS YNTHESIS [...] Not Available Consent Formson 07-27-2022 Consent Forms [id number] Discharge Instructions [id number]#1.00[facility] MAGR Intraoperative Recordon 07-27-2022 MAGR Intraoperative Record MAGR Intra-Op Record Summary Primary Physician: Ede Ramos DO Finalized Date/Time: 07/27/22 09:45:04 Pt. Name: RADHA CUADRA BRAD Dangelo/Sex: 1945 FEMALE Med Rec #: [id number] Physician: Ede Ramos DO Financial #: [id number] Pt. Type: D Room/Bed: / Admit/Disch: 07/26/22 [...] Performed Surgeon - Primary Anesthesiologist of Marketing Development Representative Record Time In 07/26/22 07:39:00 07/26/22 07:39:00 07/26/22 07:39:00 Time Out 07/26/22 09:49:00 07/26/22 09:49:00 07/26/22 09:49:00 Procedure Arthroplasty Shoulder Arthroplasty Shoulder Arthroplasty Shoulder Total Reverse(Left) Total Reverse(Left) Total Reverse(Left) Last Modified By: Mode RN, Jania Coello RN, Jania Conde RN 07/26/22 09:49:54 07/26/22 09:49:54 07/26/22 09:49:54 Entry 4 Entry 5 Entry 6 Case Attendee Fahad OCCUPATIONAL ANALYST, Paulina OCCUPATIONAL ANALYST Lisa Antony CST, CST/CSFAZOE OCCUPATIONAL ANALYST Role Performed Scrub Personnel Scrub Personnel Water Plant Operator Time In 07/26/22 07:39:00 07/26/22 07:39:00 [...] to chemical sources (more content not included)... [facility] Outside Recordson 07-27-2022 Outside Records [id number]#1.[facility] Provider Orderson 07-27-2022 Provider Orders [id number]#1.[facility] Telemetry Stripson Telemetry Strips [id number]#1.00[facility] Anesthesia Noteon 07-26-2022 Anesthesia Note Patient: [...] 07/26/2022 11:51 EDT] Remy Da Silva MD [facility] Anesthesia Note Patient: RADHA CUADRA Age: [...] obstructive pulmonary disease (COPD) / SNOMED CT 27835697 / Confirmed Heart murmur / SNOMED CT 995672000 / Confirmed Hyperlipidemia / SNOMED CT 56168254 / Confirmed HTN (hypertension) / SNOMED CT 3151514623 / Confirmed Histories Family History: COPD Mother Father Procedure history: Arthroplasty of left knee (3568838525). Arthroplasty of right knee (0414848875). Carpal tunnel release (605616597). Comments: 06/29/2022 13:15 Dorota De Leon RN bilat Colonoscopy (903940397). EGD - Esophagogastroduodenoscopy (5561805228). Disorder of rotator cuff (1734256196). Comments: 06/29/2022 13:14 Dorota De Leon RN [...] Oriented. Review / Management Laboratory Results Plan [place] [employer]esthesiologists#(ASA) physical status classification: Class [...] 07/26/2022 08:23 EDT] Remy Da Silva MD [facility] Inpatient Patient Summaryon 07-26-2022 [place] [address] Patient Discharge Instructions Name: RADHA CUADRA : 1945 Patient Address: [address] [place] [address] [place] [address] Primary Care Provider: Name: SHARI MCKEON After you are discharged if you find you have any questions, please, call [phone] ext [phone] to speak to a nurse. Discharge Diagnosis: [...] alcohol and/or drug addiction problems; contact the [facility] 04/10 Crisis Hotline -Text 4HXXY qc [phone]. If you received any narcotics, sedation, or [...] business decisions or sign any legal documents [facility] would like to thank you for allowing us to assist you with your healthcare needs. The following includes patient education materials and information regarding your injury/illness. RADHA CUADRA has been given the following list of follow-up instructions, prescriptions, and patient education materials: Follow-up Instructions With: Address: When: Ede Ramos [address] [place] [address], [address] [place] [address] Business (1) 08/03/2022 11:00 AM Medications During [...] fingers frequently (more content not included)... Normal [facility] MAGR Intraoperative Recordon 07-26-2022 MAGR Intraoperative Record MAGR Intra-Op Record Summary Primary Physician: Finalized Date/Time: 07/26/22 07:42:32 Pt. Name: RADHA CUADRA/Sex: 1945 FEMALE Med Rec #: [id number] Physician: Ede Ramos DO Financial #: [id number] Pt. Type: D Room/Bed: / Admit/Disch: 07/26/22 [...] Laura RN Role Performed Anesthesiologist of Marketing Development Representative Marketing Development Representative Record Time In 07/26/22 07:13:00 07/26/22 07:13:00 07/26/22 07:13:00 Time Out 07/26/22 07:38:00 07/26/22 07:38:00 07/26/22 07:38:00 Procedure Interscalene Block(Left) Interscalene Block(Left) Interscalene Block(Left) Last Modified By: Kimberley Le RN, Margaret RN Klaehn, Margaret RN 07/26/22 07:39:31 07/26/22 07:39:31 07/26/22 07:39:31 Entry 4 Case Attendee Amy Bates RN Role Performed Marketing Development Representative Time In 07/26/22 07:13:00 Time Out [...] Yes imaging displayed? Last Modified By: Kimberley eL RN 07/26/22 07:25:40 Patient Positioning MAGR Pre-Care [...] Stretcher Post-op Destinat (more content not included)... [facility] MAGR PACU Recordon MAGR PACU Record MAGR PACU Record Talib carrington Primary Physician: Ede Ramos DO Finalized Date/Time: 07/26/22 10:38:28 Pt. Name: RADHA CUADRA/Sex: 1945 FEMALE Med Rec #: [id number] Physician: Ede Ramos DO Financial #: [id number] Pt. Type: D Room/Bed: / Admit/Disch: 07/26/22 05:52:10 - Institution: PACU Case Times MAGR Entry 1 In PACU I 07/26/22 09:51:00 Discharge from PACU 07/26/22 10:35:00 I Last Modified By: Warner Bolton RN 07/26/22 10:38:23 Finalized By: Warner Bolton RN Document Signatures Signed By: Warner Bolton RN 07/26/22 10:38 [facility] MAGR Postoperative Record MAGR Phase II Record Summary Primary Physician: Ede Ramos DO Finalized Date/Time: 07/26/22 12:01:17 Pt. Name: RADHA CUADRA/Sex: 1945 FEMALE Med Rec #: [id number] Physician: Ede Ramos DO Financial #: [id number] Pt. Type: D Room/Bed: / Admit/Disch: 07/26/22 [...] Signed By: Annamarie Samuels RN 07/26/22 12:01 [facility] MAGR Pre-Op Record Summary Primary Physician: Ede Ramos DO Finalized Date/Time: 07/26/22 07:44:03 Pt. Name: RADHA CUADRA./Sex: 1945 FEMALE Med Rec #: [id number] Physician: Ede Ramos DO Financial #: [id number] Pt. Type: D Room/Bed: / Admit/Disch: 07/26/22 [...] consent correct. General Comments: Pt arrives to [facility] ambulatory. Pt denies cp, sob, cough or flu like symptoms. She also pacemaker/defibillator or sleep apnea. Finalized By: Kimberley Le RN Document Signatures Signed By: Kimberley Le RN 07/26/22 07:44 Normal [facility] Operative Report - Surgeon/P pablo 07-26-2022 Operative [...] Estimated blood loss: 50 Complications: None Findings: Iccy-dd-tsbb in the glenohumeral joint Procedure summary: Patient [...] on: 07/26/2022 09:35 EDT] Ede Ramos DO [facility] Patient Handouton 07-26-[address] [...] or concerns, please call the office at [phone] 7. Follow up as scheduled [facility] XR Shoulder 1 View Lefton XR [...] MD 07/27/22 4:01 pm Technologist: JORDON RUVALCABA [facility] Comment on above: Order Comment: defau lt status post shoulder replacement Progress Note - Nurseon 07-12 Progress Note - Nurse Pre-op call made to pt. Pt states understanding of arrival time of 0600 on 07/26/22 and NPO after MN. [Electronically Signed on: 07/23/2022 09:27 EDT] Shantel Gonsalez RN [Verified on: 07/23/2022 09:27 EDT] Shantel Gonsalez RN [facility] Coding Summaryon 07-02-2022 Coding Summary HTMLBase 64 OgphmvedLOz5kOn+PGhlYWQ+PE1F GZYsI91baOLfdK6UX3kQID5QJQJS XGDAUQ8ZWM1roSX4HVboE8HvokVg CwpjuYKsON01OZz4HDT3uZmrKTrl eA8pmLFxY6h1GcPyNR87wI49YTeb RLZlZaR5DeBcbvxuyTXq F3btUoNyuGBeYdb+PHRhYmxlIHdp YXYwXJnhPLCrOeMjwBipTB1aSy1p ZGVyLWNvbGxhcHNlOiBj z9vuXYOiDMwjDU1mxGcmS9HjxUF6 PNVih0h2Ya20pRH+LKZmZVW0dYbj KRkpg935KxJrd0roTFZ8 aSJxALweCIO2X20rx1U3OEOmNNUr TAL0yIN4nN2mxOytifgrF0SsnZCv ScY4KNP5oUGerM9inYlm ungnoU7cEqe+H71FEF1TEFPEKM3B Lir1A2TpArcsbZG+CB90WBTjNC41 zAGdbCHqt6nuxRg2KlEf HEOiVEF4lCtyMNllk0KfQKLsJ86b hRFon5B8OSRncHaahZKwBhWmgHO4 mK7zXGevkinjj9pfjdxt Gxbov1nlvr68dY80P84bJQclDPIw SRZ3GYQfTVVayQtobe3rzW1vZu0+ ZOipw8yng1wfeUm1DvCo OWSmtiRybCisGLB9t3WuMv12T9Fq cBwjl3AmZbi7dh06qDEkz3I7aSA7 LDslMEIwgP5pUYoeDiE7 SBUfQlDmmP77mDNvKVcjNt7wmGzo rBjvOF8nMSXzknxnKCQywJ8pOTGs aAFpaNugNZ9mIHHoxjfj j590EbPmOPC3PGDzxXGpV6KszH1k RnCcVFHgHXYkH9EngZFiIPkbX110 FMghHyA9SRWcupHeZ6Gh BSQokTrqJqM2u3O2Hu6Tf3Jvfgqu LIG2TUxcAFH8XfVjTrMwHgH5Q4Ib Sil0OYDcnHkjAK8gJ8Cw YBNlrbkqgayigSF8MFHaSTFrtT91 ySWhQBqxKa3to0J0c399SKZoSFUm mR58Pr1lqNvyXAVtbUGX fK0glnlnj6mfmtrcDfYtVGEaCQi5 YKm7RYUwaBbnDsZgOUL2CyO8CVE3 aSAqbA2cyAkgptzkwN1k Oyc+F80gxN1vUGA4TWI2hxlgXLXg omZsIF01GR36B7VmNhpukBXqmZO+ XUNmqjLtcAfhCM0rCuTc i2qaj8ZyGXohG3ArZFDmYPfvXsj3 ARBtIJD1rMB2iF9uUNRpBOhfp9W1 tEH8M5DrslCnfy2dc9pk SZPaXYgdD12ewMBzf6K8KYJvlTM2 ICPouCxqJuAgeR01Bxt+PGNvbGdy v2TlIpzbc9aij6dgyEr3 ZqQtMGEyfcQzqUqbQPL9n4HfZl34 F51eMQcjQDCvCVMpYCAqONPnrWcd hl5xyZ7dOl9+PGNvbCB3 jPE1dH4uRUWzXaT3TTkvB280AzDx bSIkQhasj6kvi1hemLm7XqIcVQNj oiOsmTefZOL8g7FmIi42 N80hDUckWTZsZKNiBZZlNUKcrTud kv7qlA2hLx0+AK6il9ibwf69qQ43 dHI+GALfIGX2hAhyARas KPPisT1pOGjgWlZ2MIAbNyFroO82 kUQvVVghTy8mgNwkfGoqOG1nVRHy hlkzd738CnFyt0ctEMVn tESvRVvaIAE8W15kh8V0DHXjZGAb UXB7tAW8rJ4rhJwxyjixaPFmpHul ucJgfPedSFpgRVglS435 IHRvcDsnPlBhdGllbnQgTmFtZTo8 E6DpWck8NHJboQphHJ2zsPYfDRcm Ev9ffGbreRdaFB7qCHFr bgqsz329ZtOhf0iaSNXykTDdIFen KNM7T80uz5D6FFYgHOKmVDH9qET3 kG8mpBxzznfihDQmbMsy iyZmgHtjVEckUUzdC313CLFfvQul MoFbblGpVMFxnEM8IH10FT24kWGr m5K8qQP1Y0WvAWNioomy lzgukEI8VTLbOTFxaE43Sy3vgXhf Bp7jSFDmSCC6EYGbxYUeL8NaaB5r FeMoOQYsKZSvJ7MvuWQf IDglC417OAbvRzS4CJFarmAtC9Yi PTNeiDrvKzP6m0L5Ri8EN8K6TE65 GF99gDDdd3A2pEI8C8Wp RJJqkcfainqtuGE3VXXdSCKloN60 Ch0qeVooSh6eFTZwTCE6MHSetLWh Q5YaqO6zAhGlJWBnXJYz Z2ZkiTQyHRteT242DHwuXpE4QBTh clKeX0YvHVIoyInyXuW7c9E9Cy2F NAj7WK36DA06rYYxv6O6 pYV1S8JeXAResrtjyxfmkRO8RLZi SREqgR23Kb4djDjhEp0oEOEhLPP8 RFGovVPxI3BcaQ3rDiCi PRSgPVSlH5BzzGYzHDmdY513JZaj DvJ0PLXsivNpL5KpTHCxeHeiKeZ4 b1V8Lr2DMZXsCT15JYR9 sOO2DD52QI99A3LbEzcjtPVjlPB+ PHRhYmxlIHdpZHRoPScxMDAlJyBz vYhaVS2fAj6eSLHmLUGl lExvuIPpLcAqd7hoMQSqXMitRI7y pXicD3HffYV3REFcc0s1Dt88R11k K8YslRC+JXPlrTG3yZX6 uN9uKiBoXmU2KTjjK277FsRryTYu Rhziq8gxo4fhxPn2FuF2ODVmjeVz oNhaWIJ2f8AnAp29S69z IHhrHZWgHKQzEBJvRMIshVthxm3f rU8eDc9+MCCpwFC1nHL5pY0gBxGr IxJ2CHdoS095DzQllNGb Aaiuq2jks9frjJp7XlHhUODvqjFr lRelLFQ0b7AbKi30A3XnaRshr9Au Zab6jc71iQCky7K9gAO5 D1GhWGWviwlcoFIccYwoXW4kAOKw rsqxJJTxgH5xRAYzG9t8IzYfEnO5 ZIvkL2DtbwY9LMVsxGZv ZAysACH1W98hw9P3ATCjFXLpDAF6 iEW4cE9otSxctttihCGmrVpsrhSz jCngYYhzIIdpU090MCOl mYewBNKofY0eCBDseSSkaOieCL4n NIJtaialVxbMPSJkHEuOVXweYH2K UFd5E3FzTvw3GMUdkOpf OY5fmRYrCNkvXf6icMrbjGazSG0e VTUowdikMBBuoH8pWUUygRGnbJtp TW8bVCZbsqueu744BbEo MDY8ZTXllPVkF8BmcX2vRrEcPPUc QHQhQ1CvoHVuHWdgR015ONwyQkA7 UCRkqgKeC5SrVYJfmHxs WqK7u1J1Zh9rRf3uCt3tIXN4ZO69 LF22sCTmy9O2kTO2Q5UpDJHdrlox igiubEY6YFSgAVVaaF98 vYXuKQvgKd7rq4Q6y601EQUoWVSi dT41Om4dfKeaWNBdlGOWeX7zwboy m5sahfkyQbOnVKPkHBx6 OAv9ZGCqwYrfGxLpOIV4QrK9KYS4 tFUoiL5omFzpngoybJ4yAkh+Nzgg JVXnttM3E0ZhTfd9TGHc mBlhFR1hlLEaVYilSn7qqRmbdYik QF1wWXAwjzgpKXExgK0bQHBrzTKg xFwfCG4wEMSebscgi567 HuNtUQI3GLYfmILlK6NoeU0jCdHo OAXtWWYfB8OmmOMpQJclJ239KXcu ByP9TLQggvSuH2ExIAXj nFopOzW4p3Q5Mp2WQE4GYRL0C6Sq Vph8FKDjaHaoGS8nfTIoLQoiUb1f cUtplFilQE0xXBWuuolz TUEtjX0yTJAcpAKgiDqbRH5cUWTz euyiz886UhBsMRB4BKSpbDCkM4Zu jE7cCbYgTPSvQBAyN1Hc gELyWQzfG820EYmvNvO8UAPlgxPy B5ChBEPqkSxkCjC5q1O4Bo7TTMrr dGQ+CY27si45C6JcTbgq Klq8LWOkIET5wKS6wK2gWRWqWGee u0A6gLR9D4RuxsAwyl5jn2tbAABx OGbhZ89zeHPeg9O9VYRj lIU8EOUzfDdnSuYntD19Mru+PGNv uNjkx9YzGtsde3bgp9ijvIr7CeNe DMKqgnVgpXxjECX7l9Hk Za53R51tGNmfHENoVDGvYKBfMFEr iTrikh0jhX0eXf9+OLZtqPA0rBD6 qX7iYbOzGwG7YWohI557 DqMywMIeWehow5rak6eymYq5AdAn POAxssWwlRwhOPF5i5KhLj16P3Cs dDxao3IaUei7hd74pTOf e8C0cIY5M3TiAOZatunerJBkoRah IQ5kNRAccfwrYHOdhD1iABHpQ1o3 JbDfGtW4XAfcM3FhupK2 MPFmxEDkWHDywXVSvY7couddi3oe raspTaXxLJOuVXg8RKh6QSCoxEic KrNrNEB7OyB6LFW6yQCq qX2uxAwacpfzlH7sBeb+KZb4d5tv gDMaYE6dfOD6TB20KZ90xDVtq0T8 uWZ8X8DpSFXixyqlngmu nLV5HHWkWQHyiW23Vz4usVuwNl9j SMYxUHE9UQLydUBqZ4TqrD3aNzSo HPCvXYNuK5EshJKmKPna L028FGlqLqB2HVLjhfMaT8JiCVDw lRmgTwY7s5B1Kg7BUR50VA96BJ54 qLTwf2Q1yAV0B9AjDFEs nxitrvylpHL7WHJgOLQeyY73Bv3c yEkdIq7xAGKaQWG1GETntFFtB9Ve pL4vNkNmLNDvKXSsF8Ki uLPqJVolQ601UFcnRhD2KUHdkcMp X4LjJYZpwLldOrF5h7G7Jk4SSi34 HE65PW24dDCez3V3wCO3 H6ZzFVHgqrsvetvgpGQ2LMGtXGUx lE14Hh9qyIqqXw0tLBOnOOV9JACl yVJhS8JoiV4uYwCfLPWe HRMcK2SizNOnDUxjV798JQxxOgH8 CKUqovItR1WrSXJdjTotTfW3k6M5 Qh4VFHxpupe1M9ElTszk dHI+BG54YGGjML22eDNmzZMkv2bq mQi5KbKxNMOrRVI9xCemAFajg2Wl WAWbB51qrKUhh6M2KQBe bGx (more content not included)... [facility] C MRSA Screenon 06-30-2022 C MRSA Screen Negative [facility] Comment on above: Performed By: #### 1 [id number] ####[facility] (DEFAULT)[address] [place] [address] 91240 Progress Note - Nurseon 06-12 Progress Note - Nurse Dr. Castro reviewed PAT notes for upcoming surgery 07/26/2022. No new orders at this time [Electronically Signed on: 06/30/2022 11:45 EDT] Annamarie Samuels RN [Verified on: 06/30/2022 11:45 EDT] Annamarie Samuels RN [facility] Provider Orderson 06-30-2022 Provider Orders [id number]#1.00OTGTIFF [facility] .Auto Diff 1on 06-29-2022 Auto Pleasants % 10 % Normal -12 [facility] Comment on above: Performed By: #### 7 [id number], [id number], [id number] ####[facility] (DEFAULT)[address] [place] [address] Baso Abs# 0.0 x10 Normal 0.0-0.2 [facility] Comment on above: Performed By: #### 7 [id number], [id number], [id number] ####[facility] (DEFAULT)[address] [place] [address] 85632 Basophils/100 WBC (Bld) 0.7 % Normal 0.2-2.0 [facility] Comment on above: Performed By: #### 7 [id number], [id number], [id number] ####[facility] (DEFAULT)[address] [place] [address] 73707 Eos Abs# 0.6 x10 High 0.0-0.4 [facility] Comment on above: Performed By: #### 7 [id number], [id number], [id number] ####[facility] (DEFAULT)[address] [place] [address] 27063 Eosinophils/100 WBC (Bld) 8.5 % High 0.9-4.0 [facility] Comment on above: Performed By: #### 7 [id number], [id number], [id number] ####[facility] (DEFAULT)[address] [place] [address] 35568 Lymph Abs# 1.6 x10 Normal 1.3-2.9 [facility] Comment on above: Performed By: #### 7 155921, [id number], [id number] ####[facility] (DEFAULT)[address] [place] [address] 25971 Lymphocytes/100 WBC (Bld) 24 % Normal 14-48 [facility] Comment on above: Performed By: #### 7 510333, [id number], [id number] ####[facility] (DEFAULT)[address] [place] [address] 73482 Pleasants Abs# 0.7 x10 Normal 0.0-0.8 [facility] Comment on above: Performed By: #### 7 967395, [id number], [id number] ####[facility] (DEFAULT)[address] [place] [address] 19546 Neut Abs# 3.8 x10 Normal 1.5-9.2 [facility] Comment on above: Performed By: #### 7 282043, [id number], [id number] ####[facility] (DEFAULT)[address] [place] [address] 19878 Neutrophils/100 WBC (Bld) 57 % Normal 44-88 [facility] Comment on above: Performed By: #### 7 990465, [id number], [id number] ####[facility] (DEFAULT)[address] [place] [address] 81681 BMP Standardon 06-29-2022 eGFR Non AA 33 mL/min/1.73m2 Invalid Interpretation Code [facility] Comment on above: Performed By: #### 7 [id number], [id number], [id number] ####[facility] (DEFAULT)[address] [place] [address] 42711 eGFR AA 40 mL/min/1.73m2 Invalid Interpretation Code [facility] Comment on above: Performed By: #### 7 990328, [id number], [id number] ####[facility] (DEFAULT)[address] [place] [address] 65271 Anion gap [Moles/Vol] 8.9 mmol/L Normal 5.0-19.0 [facility] Comment on above: Performed By: #### 7 013154, [id number], [id number] ####[facility] (DEFAULT)[address] [place] [address] 72027 Calcium [Mass/Vol] 9.3 mg/dL Normal 8.9-10.3 [facility] Comment on above: Performed By: #### 7 728161, [id number], [id number] ####[facility] (DEFAULT)[address] [place] [address] 55425 Chloride [Moles/Vol] 102 mmol/L Normal 101-111 [facility] Comment on above: Performed By: #### 7 079852, [id number], [id number] ####[facility] (DEFAULT)[address] [place] [address] 69383 CO2 [Moles/Vol] 28 mmol/L Normal 21-32 [facility] Comment on above: Performed By: #### 7 [id number], [id number], [id number] ####[facility] (DEFAULT)[address] [place] [address] 95659 Creatinine [Mass/Vol] 1.53 mg/dL High 0.60-1.30 [facility] Comment on above: Performed By: #### 7 [id number], [id number], [id number] ####[facility] (DEFAULT)[address] [place] [address] 57141 Glucose [Mass/Vol] 107.0 mg/dL Normal 74.0-118.0 [facility] Comment on above: Performed By: #### 7 [id number], [id number], [id number] ####[facility] (DEFAULT)[address] [place] [address] Osmolality 279 mOsm/L Invalid Interpretation Code [facility] Comment on above: Performed By: #### 7 [id number], [id number], [id number] ####[facility] (DEFAULT)[address] [place] [address] 61757 Potassium [Moles/Vol] 3.9 mmol/L Normal 3.6-5.1 [facility] Comment on above: Performed By: #### 7 [id number], [id number], [id number] ####[facility] (DEFAULT)[address] [place] [address] Sodium [Moles/Vol] 135.0 mmol/L Low 136.0-144 . 0 [facility] Comment on above: Performed By: #### 7 [id number], [id number], [id number] ####[facility] (DEFAULT)[address] [place] [address] Urea nitrogen [Mass/Vol] 36 mg/dL High 8-26 [facility] Comment on above: Performed By: #### 7 [id number], [id number], [id number] ####[facility] (DEFAULT)[address] [place] [address] Urea nitrogen/Creatinine [Mass ratio] 23.5 mg/mg High 4.6-16.2 [facility] Comment on above: Performed By: #### 7 [id number], [id number], [id number] ####[facility] (DEFAULT)[address] [place] [address] CBC w/ Auto Diffon 3 Erythrocyte distribution width (RBC) [Ratio] 12.8 % Normal 11.5-15.0 [facility] Comment on above: Performed By: #### 7 [id number], [id number], [id number] ####[facility] (DEFAULT)[address] [place] [address] Hematocrit (Bld) [Volume fraction] 36.4 % Normal 33.7-40.4 [facility] Comment on above: Performed By: #### 7 [id number], [id number], [id number] ####[facility] (DEFAULT)[address] [place] [address] Hemoglobin (Bld) [Mass/Vol] 12.2 g/dL Normal 11.3-15.9 [facility] Comment on above: Performed By: #### 7 [id number], [id number], [id number] ####[facility] (DEFAULT)[address] [place] [address] Man Diff? Auto Invalid Interpretation Code [facility] Comment on above: Performed By: #### 7 [id number], [id number], [id number] ####[facility] (DEFAULT)[address] [place] [address] MCH (RBC) [Entitic mass] 32 pg Normal 24-34 [facility] Comment on above: Performed By: #### 7 [id number], [id number], [id number] ####[facility] (DEFAULT)[address] [place] [address] MCHC (RBC) [Mass/Vol] 33 g/dL Normal 26-37 [facility] Comment on above: Performed By: #### 7 [id number], [id number], [id number] ####[facility] (DEFAULT)[address] [place] [address] MCV (RBC) [Entitic vol] 97 fL Normal 81-100 [facility] Comment on above: Performed By: #### 7 [id number], [id number], [id number] ####[facility] (DEFAULT)[address] [place] [address] Platelet 336 x10 Normal 138-427 [facility] Comment on above: Performed By: #### 7 [id number], [id number], [id number] ####[facility] (DEFAULT)[address] [place] [address] Platelet mean volume (Bld) [Entitic vol] 7.2 fL Normal 6.3-10.2 [facility] Comment on above: Performed By: #### 7 [id number], [id number], [id number] ####[facility] (DEFAULT)[address] [place] [address] 97115 RBC 3.77 x10 Normal 3.70-5.30 [facility] Comment on above: Performed By: #### 7 279531, [id number], [id number] ####[facility] (DEFAULT)[address] [place] [address] 78858 WBC 6.7 x10 Normal 3.5-10.5 [facility] Comment on above: Performed By: #### 7 [id number], [id number], [id number] ####[facility] (DEFAULT)[address] [place] [address] 24737 UA w Culture if Ind Standard on 06-29-2022 Breakpoint UA Normal [facility] Comment on above: Performed By: #### 1 [id number] #### [facility] (DEFAULT) [address] [place] [address] Color (U) Yellow Normal [facility] Comment on above: Performed By: #### 1 [id number] #### [facility] (DEFAULT) [address] [place] [address] 55022 Culture? Not Indicated Invalid Interpretation Code [facility] Comment on above: Result Comment: Resu lt created by rule GL_MAGR_ADD_UA_CULT1 Performed By: #### 1 [id number] #### [facility] (DEFAULT) [address] [place] [address] 40928 Glucose (U) [Mass/Vol] Negative [facility] Comment on above: Performed By: #### 1 [id number] #### [facility] (DEFAULT) [address] [place] [address] 52317 Ketones Ql (U) Negative [facility] Comment on above: Performed By: #### 1 [id number] #### [facility] (DEFAULT) [address] [place] [address] Micro? Not Indicated Invalid Interpretation Code [facility] Comment on above: Result Comment: Resu lt created by rule GL_MAGR_ADD_UA_MICRO Performed By: #### 1 [id number] #### [facility] (DEFAULT) [address] [place] [address] 90342 UA Bilirubin Negative Normal [facility] Comment on above: Performed By: #### 1 [id number] #### [facility] (DEFAULT) [address] [place] [address] 34423 UA Blood Negative Normal NEGATIVE [facility] Comment on above: Performed By: #### 1 [id number] #### [facility] (DEFAULT) [address] [place] [address] UA Clarity CLEAR Normal CLEAR [facility] Comment on above: Performed By: #### 1 [id number] #### [facility] (DEFAULT) [address] [place] [address] UA Leuk Est Negative Normal NEGATIVE [facility] Comment on above: Performed By: #### 1 [id number] #### [facility] (DEFAULT) [address] [place] [address] 81849 UA Nitrite Negative Normal NEGATIVE [facility] Comment on above: Performed By: #### 1 [id number] #### [facility] (DEFAULT) [address] [place] [address] 18672 UA pH 6.5 Normal 5-8 [facility] Comment on above: Performed By: #### 1 [id number] #### [facility] (DEFAULT) [address] [place] [address] UA Protein Negative Normal NEGATIVE [facility] Comment on above: Performed By: #### 1 [id number] #### [facility] (DEFAULT) [address] [place] [address] 51144 UA Spec Grav 1.010 Normal 1.001-1.[address] [place] [address] Comment on above: Performed By: #### 1 [id number] #### [facility] (DEFAULT) [address] [place] [address] 09187 UA Urobilinogen 0.2 mg/dL Normal 0.2-1.0 [facility] Comment on above: Performed By: #### 1 [id number] #### [facility] (DEFAULT) [address] [place] [address] 50891 Urine Source Clean Catch Normal [facility] Comment on above: Performed By: #### 1 [id number] #### [facility] (DEFAULT) [address] [place] [address] MRI Shoulder w/o Lefton 04-15 MRI Shoulder [...] by Adarsh Adams on 05/11/2022 1041 Normal [facility] SCREENING MAMMOGRAM W/ARABELLA, BILATERAL*on 11-20-2021 SCREENING [...] VERY IMPORTANT TO YOUR HEALTH. THE CURRENT [place] [employer] GUIDELINES RECOMMENDS ANNUAL MAMMOGRAPHY BEGINNING AT AGE 40 THIS FACILITY USES A REMINDER SYSTEM TO ENSURE ALL PATIENTS RECEIVE REMINDER NOTIFICATIONS AT THE APPROPRIATE TIME BASED ON THE RECOMMENDATIONS OF THIS EXAM. Report reported and signed by Alejandro Forte on 11/20/2021 0949 Normal [facility] Comprehensive Metabolic Pane george 06-10-2021 Albumin [Mass/Vol] 4.2 g/dL Normal 3.6-5.1 [facility] [place] [facility] Comment on above: Performed By: #### C JEWELS, LIPD #### [facility] [address] [place], [place] [id number] Albumin/Globulin [Mass ratio] 1.7 {ratio} Normal 1.0-2.5 [facility] Comment on above: Performed By: #### C MP, LIPD #### [facility] [address] [place], [place] [id number] ALP [Catalytic activity/Vol] 82 U/L Normal 35-119 [facility] Comment on above: Performed By: #### C JEWELS, LIPD #### [facility] [address] [place], [place] [id number] ALT [Catalytic activity/Vol] 15 U/L Normal 6-33 [facility] Comment on above: Result Comment: 02/11 Female reference range changed. Performed By: #### C JEWELS, LIPD #### [facility] [address] [facility] [place] [id number] Anion gap [Moles/Vol] 15 mmol/L Normal 12-20 [facility] Comment on above: Result Comment: Effe ctive 03/19/2019 reference range changed. Performed By: #### C JEWELS LIPD #### [facility] [address] [facility] [place] [id number] AST [Catalytic activity/Vol] 21 U/L Normal 9-34 [facility] Comment on above: Performed By: #### C JEWELS, LIPD #### [facility] [address] [facility] [place] [id number] BUN/CREA 28 Ratio High 6-22 [facility] Comment on above: Performed By: #### C JEWELS LIPD #### [facility] [address] [place], [place] [id number] Calcium [Mass/Vol] 9.3 mg/dL Normal 8.6-10.2 Madyson goldman [place] [facility] Comment on above: Performed By: #### C MP, LIPD #### [facility] [address] [place], [place] [id number] Chloride [Moles/Vol] 106 mmol/L Normal 98-107 [facility]ist Comment on above: Performed By: #### C JEWELS LIPTeresa #### [facility] [address] [facility] [place] [id number] CO2 [Moles/Vol] 24 mmol/L Normal 20-31 [facility] Comment on above: Performed By: #### C JEWELS LIPTeresa #### [facility] [address] [facility] [place] [id number] Creatinine [Mass/Vol] 1.1 mg/dL Normal 0.6-1.4 [facility] Comment on above: Performed By: #### C JEWELS LIPTeresa #### [facility] [address] [place], [place] [id number] eGFRAA 58 mL/min/1.73m2 Low >60 [facility] Comment on above: Performed By: #### C JARVIS DONIS #### [facility] [address] [place], [place] [id number] eGFRNAA 48 mL/min/1.73m2 Low >60 [facility] Comment on above: Performed By: #### C JARVIS DONIS #### [facility] [address] [place], [place] [id number] Globulin (S) [Mass/Vol] 2.5 g/dL Normal 1.9-3.7 [facility] Comment on above: Performed By: #### C JARVIS DONIS #### [facility] [address] [place], [place] [id number] Glucose [Mass/Vol] 94 mg/dL Normal 65-99 [facility] Comment on above: Result Comment: For FASTING Glucose --- ADA reference ranges: Normal 65-99 mg/dl Prediabetes 100-125 Diabetes >/= 126 Performed By: #### C JEWELS LIPTeresa #### [facility] [address] [place], [place] [id number] Potassium [Moles/Vol] 4.4 mmol/L Normal 3.5-5.5 [facility] Comment on above: Performed By: #### C JEWELS LIPTeresa #### [facility] [address] [facility] [place] [id number] Protein [Mass/Vol] 6.7 g/dL Normal 6.1-8.1 [facility] [place] [facility] Comment on above: Performed By: #### C MP, LIPD #### [facility] [address] [place], [place] [id number] Sodium [Moles/Vol] 141 mmol/L Normal 135-146 [facility] Special[facility] Comment on above: Performed By: #### C MP, LIPD #### [facility] [address] [place], [place] [id number] TBIL <0.3 Normal [facility] Comment on above: Performed By: #### C MP, LIPD #### [facility] [address] [place], [place] [id number] Urea nitrogen [Mass/Vol] 32 mg/dL High 7-25 [facility] Comment on above: Performed By: #### C MP, LIPD #### [facility] [address] [place], [place] [id number] Lipid Panelon 06-10-2021 Cholesterol [Mass/Vol] 237 mg/dL High 125-200 [facility] Comment on above: Result Comment: Low risk < 200mg/dL Borderline risk 201-239 mg/dl High risk > or equal to 240 Performed By: #### C MP, LIPD #### [facility] [address] [place], [place] [id number] Cholesterol in HDL [Mass/Vol] 100 mg/dL Normal >40 [facility] Special[facility] Comment on above: Result Comment: High Cardiovascular Risk HDL <40 mg/dL Low Cardiovascular Risk HDL > or equal to 60 mg/dl Performed By: #### C MP, LIPD #### [facility] [address] [place], [place] [id number] Cholesterol in LDL [Mass/Vol] 124 mg/dL Normal [facility] Comment on above: Result Comment: LDL ATP III CLASSIFICATION LDL less than 100 mg/dl Optimal LDL 100-129 mg/dl Near or above optimal LDL 130-159 Borderline high LDL 160-189 High LDL greater than 189 mg/dl Very High Performed By: #### C MP, LIPD #### [facility] [address] [place], [place] [id number] Cholesterol in VLDL [Mass/Vol] 13 mg/dL Normal [facility] Comment on above: Performed By: #### C MP, LIPD #### [facility] [address] [place], [place] [id number] Cholesterol.total/Ch olesterol in HDL [Mass ratio] 2 {ratio} Normal [facility] Special[facility] Comment on above: Performed By: #### C JEWELS, LIPD #### [facility] [address] [place], [place] [id number] Triglyceride [Mass/Vol] 67 mg/dL Normal 30-150 [facility] Comment on above: Result Comment: TRIG ATPIII CLASSIFICATIONS TRIG less than 150 mg/dl Normal TRIG 150-199 mg/dl Borderline High TRIG 200-500 mg/dl High TRIG greather than 500 mg/dl Very High Performed By: #### C JEWELS, LIPD #### [facility] [address] [place], [place] [id number] ECHOCARDIO M/2D COMPLETEon 0 10-24-2020 ECHOCARDIO M/2D COMPLETE Patient: RADHA CUADRA Exam Date: 10/24/2020 : 1945 Gender:F Ordering : DR SHARI MCKEON M.D. Admission #: [id number] Family : Order #: [id number] CLICK HERE TO VIEW EXAM ECHOCARDIOGRAM REPORT [...] Area(A4C): 13.90 cm2 Left Atrium Systolic Volume(A2C): 71596 mm3 Left Atrium Systolic Volume(A4C): 25781 mm3 Mitral Valve MV E to A Ratio: 1.10 Mitral Valve A-Wave Peak Velocity: 68.60 cm/s Mitral Valve E-Wave Peak Velocity: 74.50 cm/s Deceleration Time: 259 ms Right Ventricle Aorta AO Root Diam: 2.60 cm Aortic Valve Peak Velocity (Antegrade Flow): 161.00 cm/s, 230.00 cm/s AoV Area (Peak Daniel): 1.93 cm2 AoV Area (VTI): 1.90 cm2 Deceleration Bartow: 1880 mm/s2 Pressure Half-Time: 528 ms Peak [...] M.D. on 10/24/2020 at 19:17 Normal [facility] HEMOGLOBINon 09-30-2020 Hemoglobin (Bld) [Mass/Vol] 12.3 g/dL Normal 12.0-16.0 [facility] Comment on above: Performed By: #### H GB #### [facility] [address] [address] Geraldo Gaitan H PYLORI TISSUEon 02-01-2020 H PYL TISSUE, UREASE Negative Normal NEGATIVE [facility] Comment on above: Performed By: #### H GB #### [facility] [address] [address] Geraldo Gaitan COVID-19 PCRon 01-27-2020 SARS-CoV-2 (COVID-19) RNA VIVIENNE+probe Ql (Unsp spec) Not detected Normal Not Detected [facility] Comment on above: Result Comment: This nucleic acid amplification test was developed and its performance characteristics determined by [facility]. Nucleic acid amplification tests include PCR and [...] Performed By: #### C VDSTAT, CVDPCR #### [facility] [address] [address] Geraldo Gaitan PRIORITY COVID PROCESSINGon 01-27-2020 Comment Comment Normal [facility] Comment on above: Result Comment: Rece ived Performed By: #### C VDSTAT, CVDPCR #### [facility] [address] [place] [address] Geraldo Gaitan CULTURE BLOODon 01-08-2020 Microscopic examination [...] F Trimethoprim/Sulfamethoxazol e <=20 S F Normal [facility] Comment on above: Performed By: #### H GB #### [facility] [address] [place] [address] Geraldo Gaitan BLOOD CULTURE ID PANELon A. baumannii Not detected Normal [facility] Comment on above: Performed By: #### B MIRYAM #### [facility] [address] [place] [address] Geraldo Gaitan BCID CONTROLS PASSED Normal [facility] Comment on above: Performed By: #### B MIRYAM #### [facility] [address] [address] Geraldo Gaitan BCIDBTHD BLOOD CULTURE BOTTLE INFORMATION Normal [facility] Comment on above: Performed By: #### B MIRYAM #### [facility] [address] [place] [address] Geraldo Gaitan BCIDHD1 ANTIMICROBIAL RESIST ANCE GENES Normal [facility] Comment on above: Performed By: #### B MIRYAM #### [facility] [address] [place] [address] Geraldo Gaitan BCIDHD2 SEE BELOW Normal [facility] Comment on above: Result Comment: KPC- carbapenem resistance gene, mecA- methecillin resistance gene, van A/B- vancomycin resistance gene Note: Antimicrobial resitance can occur via multiple mechanisms. A Not Detected result for the [employer] antomicrobial resistance gene assays does not indicate antimicrobial susceptibility. Subculturing is required for specis identificationand susceptibility testing of isolates. Performed By: #### B MIRYAM #### [facility] [address] [place] [address] Geraldo Kandy BCIDHD3 Positive [facility] Comment on above: Performed By: #### B MIRYAM #### [facility] [address] [place] [address] Geraldo Kandy BCIDHD3 Negative Normal [facility] Comment on above: Performed By: #### B MIRYAM #### [facility] [address] [place] [address] Geraldo Kandy BCIDHD5 YEAST Normal [facility] Comment on above: Performed By: #### B MIRYAM #### [facility] [address] [place] [address] Geraldo Kandy BCIDHD6 SEE BELOW [facility] Comment on above: Result Comment: Note : All genus and species BCID [employer] results will be verified post subculturing via Maldi-Tof MS testing methodology. Performed By: #### B MIRYAM #### [facility] [address] [place] [address] Geraldo Kandy Bottle Set: Set 2 Normal [facility] Comment on above: Performed By: #### B MIRYAM #### [facility] [address] [place] [address] Geraldo Kandy Bottle: Aerobic Normal [facility] Comment on above: Performed By: #### B MIRYAM #### [facility] [address] [place] [address] Geraldo Kandy Naomi albicans Not detected Normal [facility] Comment on above: Performed By: #### B MIRYAM #### [facility] [address] [place] [address] Geraldo Kandy Naomi glabrata Not detected Normal [facility] Comment on above: Performed By: #### B MIRYAM #### [facility] [address] [address] Geraldo Kandy Naomi Krusei Not detected Normal [facility] Comment on above: Performed By: #### B MIRYAM #### [facility] [address] [place] [address] Geraldo Kandy Naomi Parapsilosis Not detected Normal [facility] Comment on above: Performed By: #### B MIRYAM #### [facility] [address] [place] [address] Geraldo Kandy Naomi Tropicalis Not detected Normal [facility] Comment on above: Performed By: #### B MIRYAM #### [facility] [address] [place] [address] Geraldo Kandy E. Cloacae complex Not detected Normal [facility] Comment on above: Performed By: #### B MIRYAM #### [facility] [address] [place] [address] Geraldo Kandy Enterobacteriaceae Detected Invalid Interpretation Code [facility] Comment on above: Performed By: #### B MIRYAM #### [facility] [address] [place] [address] Geraldo Kandy Enterococcus Not detected Normal [facility] Comment on above: Performed By: #### B MIRYAM #### [facility] [address] [place] [address] Geraldo Kandy Escheria coli Detected Normal [facility] Comment on above: Performed By: #### B MIRYAM #### [facility] [address] [place] [address] Geraldo Kandy K. oxytoca Not detected Normal [facility] Comment on above: Performed By: #### B MIRYAM #### [facility] [address] [place] [address] Geraldo Kandy K. pneumoniae Not detected Normal [facility] Comment on above: Performed By: #### B MIRYAM #### [facility] [address] [place] [address] Geraldo Kandy KPC Resistant Gene Not detected Normal [facility] Comment on above: Performed By: #### B MIRYAM #### [facility] [address] [place] [address] Geraldo Kandy List. monocytogenes Not detected Normal [facility] Comment on above: Performed By: #### B MIRYAM #### [facility] [address] [place] [address] Geraldobhumi Gaitan mecA Resistant Gene Not detected Normal [facility] Comment on above: Performed By: #### B MIRYAM #### [facility] [address] [place] [address] Geraldo Kandy Proteus Not detected Normal [facility] Comment on above: Performed By: #### B MIRYAM #### [facility] [address] [place] [address] Geraldobhumi Charlesen Pseud. aeruginosa Not detected Normal [facility] Comment on above: Performed By: #### B MIRYAM #### [facility] [address] [place] [address] Geraldo Kandy Seratia marcescens Not detected Normal [facility] Comment on above: Performed By: #### B MIRYAM #### [facility] [address] [place] [address] Geraldobhumi Gaitan Site: R AC Normal [facility] Comment on above: Performed By: #### B MIRYAM #### [facility] [address] [place] [address] Geraldobhumi Gaitan Staph. aureus Not detected Normal [facility] Comment on above: Performed By: #### B MIRYAM #### [facility] [address] [place] [address] Geraldo Kandy Staphylococcus Not detected Normal [facility] Comment on above: Performed By: #### B MIRYAM #### [facility] [address] [place] [address] Geraldo Kandy Strep. agalactiae Not detected Normal [facility] Comment on above: Performed By: #### B MIRYAM #### [facility] [address] [place] [address] Geraldo Kandy Strep. pneumoniae Not detected Normal [facility] Comment on above: Performed By: #### B MIRYAM #### [facility] [address] [place] [address] Geraldo Kandy Strep. pyogenes Not detected Normal [facility] Comment on above: Performed By: #### B MIRYAM #### [facility] [address] [place] [address] Geraldo Kandy Streptococcus Not detected Normal [facility] Comment on above: Performed By: #### B MIRYAM #### [facility] [address] [place] [address] Geraldo Gaitan Aicha/B Resist. Gene Not detected Normal [facility] Comment on above: Performed By: #### B MIRAYM #### [facility] [address] [place] [address] Geraldo Kandy CBC AUTO DIFFon 01-02-2020 BASO # 0.0 103/ul Normal 0.0-0.1 [facility] Comment on above: Performed By: #### C BC #### [facility] [address] [place] [address] Geraldobhumi Gaitan Basophils/100 WBC (Bld) 0.3 % Normal 0.2-2.0 [facility] Comment on above: Performed By: #### C BC #### [facility] [address] [place] [address] Geraldo Gaitan EO # 0.0 103/ul Normal 0.0-0.7 [facility] Comment on above: Performed By: #### C BC #### [facility] [address] [place] [address] Geraldo Gaitan Eosinophils/100 WBC (Bld) 0.3 % Critically low 0.9-7.0 [facility] Comment on above: Performed By: #### C BC #### [facility] [address] [place] [address] Geraldobhumi Gaitan Erythrocyte distribution width (RBC) [Ratio] 12.6 % Normal 11.0-15.0 [facility] Comment on above: Performed By: #### C BC #### [facility] [address] [place] [address] Geraldo Kandy Hematocrit (Bld) [Volume fraction] 42.7 % Normal 36.0-48.0 [facility] Comment on above: Performed By: #### C BC #### [facility] [address] [place] [address] Geraldo Kandy Hemoglobin (Bld) [Mass/Vol] 13.6 g/dL Normal 12.0-16.0 [facility] Comment on above: Performed By: #### C BC #### [facility] [address] [place] [address] Geraldobhumi Gaitan IG # 0.04 10e3/ul Critically high 0.00-0.03 [facility] Comment on above: Performed By: #### C BC #### [facility] [address] [place] [address] Geraldo Gaitan IG % 0.3 % Normal 0.0-0.5 [facility] Comment on above: Performed By: #### C BC #### [facility] [address] [place] [address] Geraldo Gaitan LYMPH # 0.5 103/ul Critically low 1.2-3.8 [facility] Comment on above: Performed By: #### C BC #### [facility] [address] [place] [address] Geraldo Gaitan Lymphocytes/100 WBC (Bld) 4.4 % Critically low 20.5-60.0 [facility] Comment on above: Performed By: #### C BC #### [facility] [address] [place] [address] Geraldo Gaitan MANUAL DIFF REQ NO Normal [facility] Comment on above: Performed By: #### C BC #### [facility] [address] [place] [address] Geraldo Gaitan MCH (RBC) [Entitic mass] 30.6 pg Normal 26.7-34.0 [facility] Comment on above: Performed By: #### C BC #### [facility] [address] [place] [address] Geraldo Gaitan MCHC (RBC) [Mass/Vol] 31.9 g/dL Normal 29.9-35.2 [facility] Comment on above: Performed By: #### C BC #### [facility] [address] [place] [address] Geraldo Gaitan MCV (RBC) [Entitic vol] 96.0 fL Normal 81.0-99.0 [facility] Comment on above: Performed By: #### C BC #### [facility] [address] [place], [place] [address] Geraldo Gaitan MONO # 0.8 103/ul Normal 0.3-0.8 [facility] Comment on above: Performed By: #### C BC #### [facility] [address] [place], [place] [address] Geraldo Giatan Monocytes/100 WBC (Bld) 6.5 % Normal 1.7-12.0 [facility] Comment on above: Performed By: #### C BC #### [facility] [address] [id number] Geraldobhumi Charlesen NEUT # 10.1 103/ul Critically high 1.4-6.5 [facility] Comment on above: Performed By: #### C BC #### [facility] [address] [id number] Geraldo Gaitan Neutrophils/100 WBC (Bld) 88.2 % Critically high 43.0-75.0 [facility] Comment on above: Performed By: #### C BC #### [facility] [address] [place], [place] [address] Geraldo Gaitan Platelet mean volume (Bld) [Entitic vol] 9.8 fL Normal 9.5-13.5 [facility] Comment on above: Performed By: #### C BC #### [facility] [address] [id number] Geraldo Kandy PLT 254 103/ul Normal 150-450 [facility] Comment on above: Performed By: #### C BC #### [facility] [address] [place], [place] [address] Geraldo Kandy RBC 4.45 106/ul Normal 4.20-5.40 [facility] Comment on above: Performed By: #### C BC #### [facility] [address] [place], [place] [address] HEAD WO CONon 01-02-2020 [...] REMY NESS Date: 2020-01-02 19:00 Normal [facility] CULTURE BLOODon 01-02-2020 Microscopic examination of blood, culture Culture Observations: No growth at 5 days Normal [facility] Comment on above: Performed By: #### H SAKINA #### [facility] [address] [place] [address] Geraldo Kandy CULTURE URINEon 01-02-2020 CULTURE URINE Culture Observations : Light growth of mixed genital eliezer.No potential pathogens seen. Normal [facility] Comment on above: Performed By: #### H SAKINA #### [facility] [address] [place] [address] Geraldo Kandy ER URINE PROFILEon 0 Bilirubin Ql (U) Negative Normal NEGATIVE [facility] Comment on above: Performed By: #### MELODY CORDOVA #### [facility] [address] [place] [address] Geraldo Kandy Clarity (U) SL CLOUDY Normal [facility] Comment on above: Performed By: #### MELODY CORDOVA #### [facility] [address] [place] [address] Geraldo Kandy Color (U) LT. YELLOW Normal YELLOW [facility] Comment on above: Performed By: #### MELODY CORDOVA #### [facility] [address] [place] [address] Geraldo Gaitan ERUAHD A micrscopic examina tion will be performed if indicated. Normal [facility] Comment on above: Performed By: #### MELODY CORDOVA #### [facility] [address] [place] [address] Geraldo Kandy Glucose Ql (U) Negative Normal NEGATIVE [facility] Comment on above: Performed By: #### MELODY CORDOVA #### [facility] [address] [place] [address] Geraldo Kandy Hemoglobin Ql (U) SMALL Normal NEGATIVE [facility] Comment on above: Performed By: #### MELODY CORDOVA #### [facility] [address] [place] [address] Geraldo Kandy Ketones Ql (U) Negative Normal NEGATIVE [facility] Comment on above: Performed By: #### MELODY CORDOVA #### [facility] [address] [place] [address] Geraldo Kandy LEUKOCYTES TRACE Normal NEGATIVE [facility] Comment on above: Performed By: #### MELODY CORDOVA #### [facility] [address] [place] [address] Geraldo Kandy Nitrite Ql (U) Negative Normal NEGATIVE [facility] Comment on above: Performed By: #### MELODY CORDOVA #### [facility] [address] [place] [address] Geraldo Kandy pH (U) 7.0 [pH] Normal 5-9 [facility] Comment on above: Performed By: #### MELODY CORDOVA #### [facility] [address] [place] [address] Geraldo Kandy Protein Ql (U) 30 mg/dl Normal [facility] Comment on above: Performed By: #### MELODY CORDOVA #### [facility] [address] [place] [address] Geraldo Kandy SPEC GRAVITY 1.015 Normal 1.005-<=1. 025 [facility] Comment on above: Performed By: #### MELODY CORDOVA #### [facility] [address] [place] [address] Geraldo Kandy UR MICRO IND INDICATED Normal [facility] Comment on above: Performed By: #### E MELODY SHAH #### [facility] [address] [place] [address] Geraldobhumi Gaitan Urobilinogen Qn (U) 0.2 {Eileen'U}/dL Normal [facility] Comment on above: Performed By: #### MELODY CORDOVA #### [facility] [address] [place] [address] Geraldobhumi Gaitan LACTATE/LACTIC ACIDon 2019 Lactate [Moles/Vol] 1.1 mmol/L Normal 0.7-2.0 [facility] Comment on above: Performed By: #### H GB #### [facility] [address] [place] [address] eGraldo Gaitan PROCALCITONINon 01-02-2020 PCT header 1 SEE BELOW Normal [facility] Comment on above: Result Comment: PCT <0.5ng/mL: Systemic infection (sepsis) is not likely, local bacterial infection possible, low risk for progression to severe systemic infection (severe sepsis) Performed By: #### P RL #### [facility] [address] [place] [address] Geraldo Kandy PCT header 2 SEE BELOW Normal [facility] Comment on above: Result Comment: PCT >/=0.5 and <2 ng/mL: Systemic infection (sepsis) is possible, moderate risk for progression to severe systemic infection (severe sepsis) Performed By: #### P RL #### [facility] [address] [place] [address] Geraldo Kandy PCT header 3 SEE BELOW Normal [facility] Comment on above: Result Comment: PCT >/=2.0 and <10 ng/mL: Systemic infection (sepsis) is likely, unless other causes are known, high risk for progession to severe systemic infection(severe sepsis) Performed By: #### P RL #### [facility] [address] [place] [address] Geraldo Kandy PCT header 4 SEE BELOW Normal [facility] Comment on above: Result Comment: PCT >/= 10 ng/mL: Important systemic inflammatory response almost exclusively due to severe bacterial sepsis or septic shock, high likelihood of severe sepsis or septic shock Performed By: #### P RL #### [facility] [address] [place] [address] Geraldobhumi Gaitan PROCALCITONIN 0.62 ng/mL Critically high 0.00-0.50 [facility] Comment on above: Performed By: #### P RL #### [facility] [address] [place] [address] Geraldo Gaitan PROF 14(COMP METB)on 020 Albumin [Mass/Vol] 3.6 g/dL Normal 3.5-5.0 [facility] Comment on above: Performed By: #### C MP #### [facility] [address] [place] [address] Geraldobhumi Gaitan Albumin/Globulin [Mass ratio] 0.8 {ratio} Normal [facility] Comment on above: Performed By: #### C MP #### [facility] [address] [place] [address] Geraldo Kandy ALP [Catalytic activity/Vol] 95 U/L Normal 38-126 [facility] Comment on above: Performed By: #### C MP #### [facility] [address] [place] [address] Geraldo Kandy ALT [Catalytic activity/Vol] 32 U/L Normal 9-52 [facility] Comment on above: Performed By: #### C MP #### [facility] [address] [place] [address] Geraldo Kandy Anion gap [Moles/Vol] 13.8 mmol/L Normal [facility] Comment on above: Performed By: #### C MP #### [facility] [address] [place], [place] [id number] Geraldo Kandy AST [Catalytic activity/Vol] 42 U/L Critically high 14-36 [facility] Comment on above: Performed By: #### C MP #### [facility] [address] [place] [address] Geraldo Kandy Bilirubin [Mass/Vol] 0.5 mg/dL Normal 0.2-1.3 [facility] Comment on above: Performed By: #### C MP #### [facility] [address] [place], [place] [address] Geraldo Kandy Calcium [Mass/Vol] 9.4 mg/dL Normal 8.4-10.2 [facility] Comment on above: Performed By: #### C MP #### [facility] [address] [id number] Geraldo Kandy Chloride [Moles/Vol] 100 mmol/L Normal 98-107 [facility] Comment on above: Performed By: #### C MP #### [facility] [address] [id number] Geraldo Kandy CO2 [Moles/Vol] 24.6 mmol/L Normal 22.0-30.0 [facility] Comment on above: Performed By: #### C MP #### [facility] [address] [id number] Geraldo Kandy Creatinine [Mass/Vol] 1.36 mg/dL Critically high 0.52-1.04 [facility] Comment on above: Performed By: #### C MP #### [facility] [address] [place], [place] [address] Geraldo Kandy EGFR-AF TUNISIAN 46 mL/min/1.73m2 Critically low >=60 [facility] Comment on above: Performed By: #### C MP #### [facility] [address] [id number] Geraldo Kandy EGFR-NON AF TUNISIAN 38 mL/min/1.73m2 Critically low >=60 [facility] Comment on above: Performed By: #### C MP #### [facility] [address] [place], [place] [address] Geraldo Kandy Globulin (S) [Mass/Vol] 4.5 g/dL Normal [facility] Comment on above: Performed By: #### C MP #### [facility] [address] [place], [place] [address] Geraldo Kandy Glucose [Mass/Vol] 120 mg/dL Critically high 74-106 T [facility] Comment on above: Performed By: #### C MP #### [facility] [address] [address] Geraldo Kandy Potassium [Moles/Vol] 3.4 mmol/L Normal 3.4-5.0 [facility] Comment on above: Performed By: #### C MP #### [facility] [address] [address] Geraldo Kandy Protein [Mass/Vol] 8.1 g/dL Normal 6.1-8.2 [facility] Comment on above: Performed By: #### C MP #### [facility] [address] [place] [address] Geraldo Kandy Sodium [Moles/Vol] 135 mmol/L Critically low 137-[address] [facility] Comment on above: Performed By: #### C MP #### [facility] [address] [place] [address] Geraldo Kandy Urea nitrogen [Mass/Vol] 22.0 mg/dL Critically high 7.0-17.0 [facility] Comment on above: Performed By: #### C MP #### [facility] [address] [place] [address] Geraldo Kandy Urea nitrogen/Creatinine [Mass ratio] 16.2 mg/mg Normal [facility] Comment on above: Performed By: #### C MP #### [facility] [address] [place] [address] Geraldo Kandy RESPIRATORY PANEL PLUSon Adenovirus Not detected Normal NOT DETECTED [facility] Comment on above: Performed By: #### R SPLUS #### [facility] [address] [place] [address] Geraldo Kandy B. Parapertusis Not detected Normal NOT DETECTED [facility] Comment on above: Performed By: #### R SPLUS #### [facility] [address] [place] [address] Geraldo Kandy B. Pertussis Not detected Normal NOT DETECTED [facility] Comment on above: Performed By: #### R SPLUS #### [facility] [address] [place] [address] Geraldo Kandy Chlamydia Pneumoniae Not detected Normal NOT DETECTED [facility] Comment on above: Performed By: #### R SPLUS #### [facility] [address] [place] [address] Geraldo Kandy Coronavirus 229E Not detected Normal NOT DETECTED [facility] Comment on above: Performed By: #### R SPLUS #### [facility] [address] [place] [address] Geraldo Kandy Coronavirus HKU1 Not detected Normal NOT DETECTED [facility] Comment on above: Performed By: #### R SPLUS #### [facility] [address] [place] [address] Geraldo Kandy Coronavirus NL63 Not detected Normal NOT DETECTED [facility] Comment on above: Performed By: #### R SPLUS #### [facility] [address] [place] [address] Geraldo Kandy Coronavirus OC43 Not detected Normal NOT DETECTED [facility] Comment on above: Performed By: #### R SPLUS #### [facility] [address] [place] [address] Geraldo Kandy Influenza A H1 2009 Not detected Normal NOT DETECTED [facility] Comment on above: Performed By: #### R SPLUS #### [facility] [address] [place] [address] Geraldo Kandy Influenza B Not detected Normal NOT DETECTED [facility] Comment on above: Performed By: #### R SPLUS #### [facility] [address] [place] [address] Geraldo Kandy Metapneumovirus Not detected Normal NOT DETECTED [facility] Comment on above: Performed By: #### R SPLUS #### [facility] [address] [place] [address] Geraldo Kandy Mycoplas. Pneumoniae Not detected Normal NOT DETECTED [facility] Comment on above: Performed By: #### R SPLUS #### [facility] [address] [place] [address] Geraldo Kandy Parainfluenza 1 Not detected Normal NOT DETECTED [facility] Comment on above: Performed By: #### R SPLUS #### [facility] [address] [place] [address] Geraldo Kandy Parainfluenza 2 Not detected Normal NOT DETECTED [facility] Comment on above: Performed By: #### R SPLUS #### [facility] [address] [place] [address] Geraldo Kandy Parainfluenza 3 Not detected Normal NOT DETECTED [facility] Comment on above: Performed By: #### R SPLUS #### [facility] [address] [place] [address] Geraldo Kandy Parainfluenza 4 Not detected Normal NOT DETECTED [facility] Comment on above: Performed By: #### R SPLUS #### [facility] [address] [place] [address] Geraldo Kandy Rhino/Enterovirus Not detected Normal NOT DETECTED [facility] Comment on above: Performed By: #### R SPLUS #### [facility] [address] [place] [address] Geraldo Kandy RP2 Header 1 RESPIRATORY PANEL: VIRUSES Normal [facility] Comment on above: Performed By: #### R SPLUS #### [facility] [address] [place] [address] Geraldo Kandy RP2 Header 2 RESPIRATORY PANEL: BACTERIA Normal [facility] Comment on above: Performed By: #### R SPLUS #### [facility] [address] [place] [address] Geraldo Kandy RP2 Header 4 EUA SEE BELOW Normal [facility] Comment on above: Result Comment: This test is not yet approved or cleared by the [place] FDA. When there are no FDA-approved or cleared tests available, and other criteria are met, FDA can make tests available under an emergency access mechanism called an Emergency Use Authorization (EUA). The EUA for this test is supported by the [place] of Health and Human Service?s (HHS?s) declaration [...] used). Performed By: #### R SPLUS #### [facility] [address] [place] [address] Geraldo Gaitan RSV Not detected Normal NOT DETECTED [facility] Comment on above: Performed By: #### R SPLUS #### [facility] [address] [place] [address] Geraldo Gaitan SARS-CoV-2 (COVID-19) RNA VIVIENNE+probe Ql (Unsp spec) Not detected Normal NOT DETECTED [facility] Comment on above: Performed By: #### R SPLUS #### [facility] [address] [place] [address] Geraldo Gaitan URINE MICROSCOPIC ONLYon BACTERIA MODERATE Normal NONE SEEN [facility] Comment on above: Performed By: #### Luis SHAH UMICRO #### [facility] [address] [place] [address] Geraldo Kandy Bacteria identified Cx Nom (U) INDICATED Normal [facility] Comment on above: Performed By: #### Luis SHAH UMICRO #### [facility] [address] [place] [address] Geraldo Kandy CAST NONE SEEN Normal NONE SEEN [facility] Comment on above: Performed By: #### Luis SHAH UMICRO #### [facility] [address] [place] [address] Geraldo Kandy Crystals LM Nom (Urine sed) NONE SEEN Normal NONE SEEN [facility] Comment on above: Performed By: #### Luis SHAH UMICRO #### [facility] [address] [place] [address] Geraldo Kandy Epithelial cells LM Ql (Urine sed) RARE Normal [facility] Comment on above: Performed By: #### Luis SHAH UMICRO #### [facility] [address] [place] [address] Geraldo Kandy MUCOUS NONE SEEN Normal NONE SEEN [facility] Comment on above: Performed By: #### Luis SHAH UMICRO #### [facility] [address] [place] [address] Geraldo Gaitan RBC 0-2 Normal 0-2 [facility] Comment on above: Performed By: #### MELODY CORDOVA #### [facility] [address] [place], [place] [address] Geraldo Gaitan WBC 5-10 Normal NONE SEEN [facility] Comment on above: Performed By: #### MELODY CORDOVA #### [facility] [address] [place], [place] [address] Geraldo Gaitan XR CHEST 1 Von 01-02-2020 [...] REMY NESS Date: 2020-01-02 18:52 Normal [facility] Vital Signs Date Time Vital Sign Value Performing Clinician Mikel eden 09-26-2024 14:01-0400 Body height 149.9 cm China Ortiz [employer]GER Work Phone: [facility] 09-26-2024 14:01-0400 Body mass index (BMI) [Ratio] 21.97 kg/m2 China Ortiz [employer]ING [employer] MANAGER Work Phone: [facility] 09-26-2024 14:01-0400 Body weight 49.35 kg China Ortiz [employer]ING [employer] MANAGER Work Phone: [facility] 09-26-2024 14:01-0400 Diastolic blood pressure 70 mm[Hg] China Ortiz [employer]ING [employer] MANAGER Work Phone: [facility] 09-26-2024 14:01-0400 Heart rate 62 /min China Ortiz [employer]ING [employer] MANAGER Work Phone: [facility] 09-26-2024 14:01-0400 SaO2% (BldA) [Mass fraction] 95 % China Ortiz [employer]ING [employer] MANAGER Work Phone: [facility] 09-26-2024 14:01-0400 Systolic blood pressure 122 mm[Hg] China Ortiz [employer]ING [employer] MANAGER Work Phone: [facility] 05-09-2024 10:42-0500 Diastolic blood pressure 70 mm[Hg] China Ortiz [employer]ING [employer] MANAGER Work Phone: [facility] 05-09-2024 10:42-0500 Systolic blood pressure 120 mm[Hg] China Ortiz [employer]ING [employer] MANAGER Work Phone: [facility] 05-09-2024 10:34-0500 Body height 149.9 cm China Ortiz [employer]ING [employer] MANAGER Work Phone: [facility] 05-09-2024 10:34-0500 Body mass index (BMI) [Ratio] 20.28 kg/m2 China Ortiz [employer]ING [employer] MANAGER Work Phone: [facility] 05-09-2024 10:34-0500 Body temperature 99.3 [degF] China Ortiz [employer]ING [employer] MANAGER Work Phone: [facility] 05-09-2024 10:34-0500 Body weight 45.54 kg China Ortiz [employer]ING [employer] MANAGER Work Phone: [facility] 05-09-2024 10:34-0500 Heart rate 86 /min China Ortiz [employer]ING [employer] MANAGER Work Phone: [facility] 05-09-2024 10:34-0500 SaO2% (BldA) [Mass fraction] 96 % China Ortiz [employer]ING [employer] MANAGER Work Phone: [facility] 01-24-2024 13:04-0500 Body height 149.9 cm Roger Vasquez DPM Work Phone: [facility] 01-24-2024 13:04-0500 Body mass index (BMI) [Ratio] 20.2 kg/m2 Roger Vasquez DPM Work Phone: [facility] 01-24-2024 13:04-0500 Body weight 45.36 kg Roger Vasquez DPM Work Phone: [facility] Encounters Encounter Date Encounter Type Care Provider Facility Start: 09-28-2024 End: 10-01-2024 Follow-up encounter China Ortiz [employer]NAGER Work Phone: [facility] Comment on above: Moderate aortic regu rgitation (Primary Dx); Mild aortic stenosis; SOB (shortness of breath) Start: 09-27-2024 End: 09-27-2024 ambulatory SHARI Amaral [facility]KE [facility] Start: 09-26-2024 End: 09-26-2024 Bamboo flowsheet China Ortiz [employer]ING [employer] MANAGER Work Phone: [facility] Start: 09-26-2024 End: 09-26-2024 Bamboo flowsheet China Diana [employer]ING ARE[employer] MANAGER Work Phone: [facility] Start: 09-26-2024 End: 09-26-2024 Office outpatient visit 25 minutes China Ortiz [employer]ING [employer] MANAGER Work Phone: [facility] Comment [...] 05-09-2024 End: 05-09-2024 Bamboo flowsheet China Ortiz MARK[employer]ING [employer] MANAGER Work Phone: [facility] Start: 05-09-2024 End: 05-09-2024 Bamboo flowsheet China Ortiz MARKETING ARE[employer] MANAGER Work Phone: [facility] Start: 05-09-2024 End: 05-09-2024 Office outpatient visit 15 minutes China Ortiz [employer]ING [employer] MANAGER Work Phone: [facility] Comment [...] 02-20-2024 End: 02-20-2024 ambulatory Kei Espana MD Facility:[facility] Start: 02-07-2024 End: 02-07-2024 Refill Shari Mckeon MD Work Phone: [facility] Comment on above: Mild intermittent as thma, unspecified whether complicated (CMS/HCC) Start: 02-06-2024 End: 02-06-2024 ambulatory Kei Espana MD Facility:[facility] Start: 01-24-2024 End: 01-24-2024 Bamboo flowsheet Roger Vasquez DPM Work Phone: [facility] Start: 01-24-2024 End: 01-24-2024 Bamboo flowsheet Roger Vasquez DPM Work Phone: [facility] Start: 01-24-2024 End: 01-24-2024 Office outpatient visit 15 minutes Roger Vasquez DPM Work Phone: [facility] Comment on above: Dermatophytosis of n ail (Primary Dx); Dystrophic nail; Onychocryptosis; Pain of left great toe Start: 01-24-2024 End: 01-24-2024 ambulatory ROGER VASQUEZ Not Available Start: 01-23-2024 End: 01-23-2024 ambulatory Kei Espana MD Facility:[facility] Start: 01-09-2024 End: 01-09-2024 ambulatory Kei [...] 12-12-2023 End: 12-12-2023 ambulatory Kei Espana MD Facility:[facility] Start: 12-09-2023 End: 12-09-2023 Refill Shari Mckeon MD Work Phone: [facility] Comment on above: Mild intermittent as thma, unspecified whether complicated ([facility]) Start: 11-28-2023 End: 11-28-2023 ambulatory Kei Espana MD Facility:[facility] Start: 11-17-2023 End: 11-17-2023 Refill Shari Mckeon MD Work Phone: [facility] Comment on above: Essential hypertensi on ([facility]) Start: 10-04-2023 End: 10-04-2023 ambulatory [facility] Start: 09-05-2023 End: 09-05-2023 ambulatory Kei Espana MD Facility:[facility] Start: 08-22-2023 End: 08-22-2023 ambulatory Kei Espana MD Facility:[facility] Start: 07-25-2023 End: 07-25-2023 ambulatory Kei Espana MD Facility:[facility] Start: 07-11-2023 End: 07-11-2023 ambulatory Kei Espana MD Facility:[facility] Start: 04-27-2023 Telephone encounter Ede sierra DO Work Phone: [facility] 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 Start: 04-21-2023 Refill Alexander Aparicio [employer]ETING [employer] MANAGER Work Phone: [facility] Comment on above: Essential hypertensi on (CMS/HCC) Start: 07-26-2022 End: 07-26-2022 ambulatory SHARI MCKEON Facility:[facility] Start: 06-29-2022 End: 06-30-2022 ambulatory SHARI MCKEON Facility:[facility] Start: 10-24-2020 End: 10-25-[address] SHARI MCKEON Facility:[facility] Start: 09-30-2020 End: 10-01-[address] SHARI MCKEON Facility:[facility] Start: 02-01-2020 End: 02-01-[address] CARLOS EDUARDO MENENDEZ Facility:[facility] Start: 01-30-2020 Encounter for prepro cedural laboratory examination DR CARLOS EDUARDO MENENDEZ [facility] Start: 01-26-2020 End: 01-27-[address] SHARI MCKEON Facility:[facility] Start: 01-26-2020 End: 01-27-2020 Encounter for preprocedural laboratory examination DR SHARI MCKEON Facility:[facility] Start: 01-02-2020 End: 01-02-[address] BÁRBARA BLUE Facility:[facility] Start: 05-25-2018 End: 05-26-2018 Patient encounter procedure DEFAULT PHYSICIAN Facility:[facility] Procedures Date Procedure Procedure Detail Performing Clinician Start: 06-06-2024 Mri spinal canal tho racic w/o contrast matrl Generic External Data Provider Plan of Treatment Date Care Activity Detail Author Start: 11-12-2024 Influenza vaccination Influenza Vaccine (#1) [facility] Start: 10-01-2024 End: 10-01-2026 Echocardiogram [...] of breath Expected: 09/26/2024 (Approximate), Expires: 09/26/2025 [facility] Comment on above: Expected: 09/26/2024 (Approximate), Expi res: 09/26/2025 Start: 09-26-2024 End: 09-26-2025 Comprehensive metabolic 2000 panel - Serum or Plasma Comprehensive metabolic panel Lab Routine Stage 3b chronic kidney disease ([facility]) Shortness of breath Expected: 09/26/2024 (Approximate), Expires: 09/26/2025 [facility] Comment on above: Expected: 09/26/2024 (Approximate), Expi res: 09/26/2025 Start: 09-26-2024 End: 09-26-2025 ECG 12 lead ECG 12 lead ECG Routine Primary hypertension Irregular heart beat Shortness of breath Expected: 09/26/2024 (Approximate), Expires: 09/26/2025 [facility] Work Phone: Comment on above: Expected: 09/26/2024 (Approximate), Expi res: 09/26/2025 Start: 09-26-2024 End: 09-26-2025 Lipid 1996 panel - Serum or Plasma Lipid panel Lab Routine Primary hypertension Pure hypercholesterolemia Shortness of breath Expected: 09/26/2024 (Approximate), Expires: 09/26/2025 [facility] Comment on above: Expected: 09/26/2024 (Approximate), Expi res: 09/26/2025 Start: 09-26-2024 End: 09-26-2024 Patient encounter procedure 09/26/2024 2:00 PM EDT Office Visit [facility] [address] [place] [address] China Ortiz NP [address] [place] [address] Arrived [facility] Comment on above: Arrived Start: 06-16-2024 Medicare Annual Wellness (AWV) Medicare Annual Wellness (AWV) [facility] Start: 05-09-2024 End: 05-09-2024 Patient encounter procedure 05/09/2024 10:30 AM EST Office Visit [facility] [address] [place] [phone] China Ortiz NP [address] [place] [address] Arrived [facility] Comment on above: Arrived Start: 12-28-2023 End: 12-28-2023 Professional / ancillary services management 12/28/2023 9:00 AM EDT Ancillary Procedure [facility] [address] [facility] [address] [place] [phone] [facility] Start: 12-13-2023 End: 02-11-2025 MG Breast - bilateral Screening Bilateral screening mammogram Imaging Routine Encounter for screening mammogram for malignant neoplasm of breast Expected: 12/13/2023, Expires: 02/11/2025 [facility] Work Phone: Comment on above: Expected: 12/13/2023, Expires: Start: 11-13-2023 Influenza vaccination Influenza Vaccine (#1) [facility] Start: 08-02-2023 End: 08-02-2023 Patient encounter procedure 08/02/2023 9:00 AM EDT Office Visit [facility] [address] [facility] [address] [place] [id number] Ede Ramos DO [address] [facility] [address] [place] [address] [facility] Start: 05-06-2023 Medicare Annual Wellness (AWV) Medicare Annual Wellness (AWV) [facility] Immunizations Immunization Date Immunization Notes Care Provider Fa cili 01-19-2024 RSV, recombinant, protein subunit RSVpreF, adjuvant reconstitu, 120mcg/0.5mL, PF (Arexvy) China Ortiz MARKETING AREA MANAGER Work Phone: [facility] 01-05-2024 influenza, high dose seasonal, preservative-free China Ortiz MARKETING AREA MANAGER Work Phone: [facility] 01-05-2024 influenza virus vaccine, unspecified formulation China Ortiz MARKETING AREA MANAGER Work Phone: [facility] 12-23-2022 Influenza, High-dose Seasonal, Quadrivalent, Preservative Free Alexander Hackenburg MARKETING AREA MANAGER Work Phone: [facility] 12-23-2022 SARS-COV-2 (COVID-19 ) vaccine, mRNA, spike protein, LNP, PF, 50 mcg/0.5 mL Alexander Hackenburg MARKETING AREA MANAGER Work Phone: [facility] 12-23-2022 influenza virus vaccine, unspecified formulation Shari Mckeon MD Work Phone: [facility] 12-01-2021 Influenza, Seasonal, Quadrivalent, Adjuvanted Alexander Hackenburg MARKETING AREA MANAGER Work Phone: [facility] 12-01-2021 Seasonal, trivalent, recombinant, injectable influenza vaccine, preservative free Alexander Hackenburg MARKETING AREA MANAGER Work Phone: [facility] 12-16-2020 Influenza, High-dose Seasonal, Quadrivalent, Preservative Free Alexander Hackenburg MARKETING AREA MANAGER Work Phone: [facility] 02-14-2020 zoster vaccine recombinant Alexander Hackenburg MARKETING AREA MANAGER Work Phone: [facility] 12-07-2019 influenza, seasonal, injectable Alexander Hackenburg MARKETING AREA MANAGER Work Phone: [facility] 11-13-2019 influenza, injectabl e, quadrivalent, preservative free Alexander Hackenburg MARKETING AREA MANAGER Work Phone: [facility] 11-13-2019 zoster vaccine recombinant Alexander Hackenburg MARKETING AREA MANAGER Work Phone: [facility] 11-12-2019 zoster vaccine recombinant Alexander Hackenburg MARKETING AREA MANAGER Work Phone: [facility] 11-29-2018 Seasonal trivalent influenza vaccine, adjuvanted, preservative free Alexander Hasobiaenburg MARKETING AREA MANAGER Work Phone: [facility] 11-30-2017 influenza, high dose seasonal, preservative-free Alexander Hasobiaenburg MARKETING AREA MANAGER Work Phone: [facility] 11-24-2017 Seasonal trivalent influenza vaccine, adjuvanted, preservative free Alexander Hasobiaenburg MARKETING AREA MANAGER Work Phone: [facility] 11-18-2016 influenza, high dose seasonal, preservative-free Alexander Hasobiaenburg MARKETING AREA MANAGER Work Phone: [facility] Work Phone: 11-18-2016 pneumococcal conjuga te vaccine, 13 valent Alexander Hasobiaenburg MARKETING AREA MANAGER Work Phone: [facility] 11-18-2016 Seasonal trivalent influenza vaccine, adjuvanted, preservative free Alexander Patrickenburg MARKETING AREA MANAGER Work Phone: [facility] 11-18-2016 tetanus toxoid, redu greg diphtheria toxoid, and acellular pertussis vaccine, adsorbed Alexander Patrickenburg MARKETING AREA MANAGER Work Phone: [facility] 11-12-2016 pneumococcal polysaccharide vaccine, 23 valent Alexander Magyburg MARKETING AREA MANAGER Work Phone: [facility] 12-11-2015 influenza, high dose seasonal, preservative-free Alexander Patrickenburg MARKETING AREA MANAGER Work Phone: [facility] 12-30-2014 influenza virus vaccine, whole virus Alexandre Hasobiaenburg MARKETING AREA MANAGER Work Phone: [facility] 12-30-2014 influenza, injectabl e, quadrivalent, preservative free Alexander Hackenburg MARKETING AREA MANAGER Work Phone: [facility] 05-10-2014 pneumococcal conjuga te vaccine, 13 valent Alexander Hackenburg MARKETING AREA MANAGER Work Phone: [facility] 12-13-2013 influenza virus vaccine, whole virus Alexander Hasobiaenburg MARKETING AREA MANAGER Work Phone: [facility] 01-12-2013 pneumococcal Conjuga te, unspecified formulation Alexander Hackenchiqui MARKETING AREA MANAGER Work Phone: [facility] 01-12-2013 seasonal influenza, intradermal, preservative free Alexander Deansobialeechiqui MARKETING AREA MANAGER Work Phone: [facility] 12-27-2012 pneumococcal polysaccharide vaccine, 23 valent Alexander Nguyentony MARKETING AREA MANAGER Work Phone: [facility] Payers Date Payer Category Payer Unknown 2017 Medicare [employer] MEDICARE ADVANTAGE [facility] MEDICARE ADVANTAGE [id number] 2017-Present [address] [place] [address] [id number] 2017 Medicare (Managed Care) [facility] AD[facility] [id number] 1959 Unknown [id number] 1944 Unknown [id number] 2..840.1.761009.3.579. 2.647 1944 Unknown [id number] 2..840.1.871031.3.579. 2.593 1944 Unknown [id number] 2.16.840.1.364367.3.579. 2.593 1944 Unknown [id number] 2.16.840.1.442191.3.579. 2.593 1944 Unknown [id number] 2.16.840.1.009328.3.579. 2.593 1944 Unknown [id number] 2.16.840.1.974543.3.579. 2.593 1944 Unknown [id number] 2.16.840.1.096491.3.579. 2.718 1944 Unknown [id number] 2.16.840.1.651511.3.579. 2.718 1944 Unknown [id number] 2.16.840.1.659361.3.579. 2.196 1944 Unknown [id number] 2.16.840.1.043627.3.579. 2.196 1944 Unknown [id number] 2.16.840.1.071911.3.579. 2.196 1944 Unknown [id number] 2.16840.1.256534.3.579. 2.196 1944 Unknown [id number] 2.16.840.1.015204.3.579. 2.196 1944 Unknown [id number] 2.16.840.1.081953.3.579. 2.196 1944 Unknown [id number] 2.16.840.1.041463.3.579. 2.196 1944 Unknown [id number] 2.16840.1.882420.3.579. 2.196 1944 Unknown [id number] 2.16.840.1.159073.3.579. 2.196 1944 Unknown [id number] 2.16.840.1.214369.3.579. 2.196 1944 Unknown [id number] 2.16.840.1.790219.3.579. 2.1259 1944 Unknown [id number] 2.16.840.1.756268.3.579. 2.1259 1944 Unknown [id number] 2.16.840.1.951907.3.579. 2.1259 1944 Unknown [id number] 2.16.840.1.410754.3.579. 2.1259 1944 Unknown [id number] 2.16.840.1.225502.3.579. 2.1286 1944 Unknown [id number] 2.16.840.1.792229.3.579. 2.1286 Social History Date Type Detail Facility Start: 09-17-2022 Tobacco smoking stat [facility] Never smoked tobacco [facility] Start: 09-17-2022 [...] as well ----- Message ----- From: [facility] Results In Sent: 09/27/2024 9:07 AM EDT To: China Ortiz NP [facility] 10-01-2024 Miscellaneous Notes [facility] faxing over the [...] as well ----- Message ----- From: Kevyn [facility] Results In Sent: 09/27/2024 9:07 AM [...] as well ----- Message ----- From: [facility] Results In Sent: 09/27/2024 9:07 AM [...] China Ortiz NP documented in this encounter [facility] 10-01-2024 Telephone encounter Note ----- Message from [...] 9:07 AM EDT To: China Ortiz NP [facility] 10-01-2024 Telephone encounter Note She did get the EKG done the next morning. ( Ill call them to get report)And she is agreeable to the echo if you place the order thank you! [facility] 10-01-2024 Telephone encounter Note ----- Message from [...] as well ----- Message ----- From: [facility] Results In Sent: 09/27/2024 9:07 AM EDT To: China Ortiz NP [facility] 09-26-2024 History of Present illness Narrative Associated Problem(s): Stage 3b chronic kidney disease ([facility]) Orders: Comprehensive metabolic panel; Future -check renal [...] is not under the care of a skiver counter and does not recall undergoing an echocardiogram [...] Refuses wellness today documented in this encounter [facility] 05-09-2024 History of Present illness Narrative Images [...] PRN atorvastatin (LIPITOR) 20 mg, Oral, Daily yahnksawbc-yjvusonsejyga-mtjomzqs 50-325-40 MG tablet 1 tablet, Every 4 [...] treatments as prescribed. documented in this encounter [facility] 04-23-2024 Telephone encounter Note Pt needs a confirmation of 3 mos supply sent to [facility] Fluticasone-sal[facility]ol 250-50 mcg/act aerosol powder [facility] 04-23-2024 Miscellaneous Notes Pt needs a confirmation of 3 mos supply sent to [facility] Fluticasone-sal[facility]ol 250-50 mcg/act aerosol powder documented in this encounter [facility] 01-24-2024 History of Present illness Narrative Images [...] once daily, Disp: 90 tablet, Rfl: 0 lcbfpztcae-nrctuxfthjxme-khhkbgsl 50-325-40 MG tablet, Take 1 tablet by [...] Roger Vasquez DPM documented in this encounter [facility] 01-24-2024 Instructions Roger Vasquez DPM - 01/24/2024 1:00 PM EST As noted documented in this encounter [facility] 12-22-2023 Telephone encounter Note Approvals with refills [facility] 12-22-2023 Miscellaneous Notes Approvals with refills documented in this encounter [facility] 12-13-2023 Telephone encounter Note Patient called and would like an order for a mammogram sent over. Last one on 12/20/2022. Thank you [facility] 12-13-2023 Miscellaneous Notes Patient called and would like an order for a mammogram sent over. Last one on 12/20/2022. Thank you documented in this encounter [facility] 11-17-2023 Telephone encounter Note Refills sent. [facility] 11-17-2023 Miscellaneous Notes Refills sent. documented in this encounter [facility] 04-27-2023 Telephone encounter Note Called pt and informed [facility] 04-27-2023 Miscellaneous Notes Called pt and informed Pt called stated she had LT TSA 07/26/22 and is getting a cavity filled and needs [facility] [place]. Allergies: NKDA . Her call back [phone] documented in this encounter [facility] 04-27-2023 Telephone encounter Note Pt called stated she had LT TSA 07/26/22 and is getting a cavity filled and needs antibiotic [facility] [place]. Allergies: NKDA . Her call back [phone] [facility] 04-21-2023 Telephone encounter Note Refills sent. [facility] 04-21-2023 Miscellaneous Notes Refills sent. documented in this encounter [facility] 07-27-2022 Note [id number] [facility] 07-26-2022 Note [facility] SURGERY Clinical Discharge Summary PERSON INFORMATION Name RADHA CUADRA Age 77 Years 1945 Sex FEMALE Language Vietnamese PCP SHARI MCKEON Marital Status Med Service Ambulatory Surgery N 18-22-14 Acct# Arrival 07/26/2022 05:52:10 Visit Reason SURGERY - LEFT REVERSE TOTAL SHOULDER - ARTHREX Acuity LOS 053 02:57 Address: [address] [place] [address] [place] [address] Comment: PROVIDER INFORMATION VITALS INFORMATION Vital Sign [...] REASON INCOMPLETE INFORMATION (more content not included)... [facility] 02-01-2020 Note OPERATIVE NOTE OPERATION [...] position. She was sedated by the nurse shipbuilding draftsperson. Bite block was placed in her mouth. [...] patient tolerated the procedure without any difficulties. [facility] SIGNED AND APPROVED BY: DR CARLOS EDUARDO MENENDEZ . 02/07/2020 09:15:00 [facility] Evaluation note Diagnosis Essential hypertension (CMS/HCC) [...] section and content) DATE CREATED AUTHOR 05/27/2018 [facility] DATE CREATED AUTHOR AUTHOR'S ORGANIZ ATION 11/06/2020 [facility] DATE CREATED AUTHOR AUTHOR'S ORGANIZ ATION 05/12/2022 [facility] DATE CREATED AUTHOR AUTHOR'S ORGANIZ ATION 07/28/2022 [facility] DATE CREATED AUTHOR AUTHOR'S ORGANIZ ATION 03/05/[address] [facility] DATE CREATED AUTHOR AUTHOR'S ORGANIZ ATION 09/30/2024 [facility] dical Specialists [facility] DATE CREATED AUTHOR AUTHOR'S ORGANIZ ATION 09/30/2024 [facility] Reason for Visit (unrecogniz ed section and [...] Care Teams (unrecognized sec tion and content) Social Studies Teacher Relationship Specialty Start Date End Date Alexander Aparicio NP [address] [place] [address] PCP - Cristobal FIGUEROA 03/21/21 Shari Mckeon MD [address] [place] [address] PCP - General Family Medicine 07/26/22 Social Studies Teacher Relationship Specialty Start Date End Date Alexander Aparicio NP [address] [place] [address] PCP - Cristobal FIGUEROA 03/21/21 Shari Mckeon MD [address] [place] [address] PCP - General Family Medicine 07/26/22 Social Studies Teacher Relationship Specialty Start Date End Date Alexander Aparicio NP [address] [place] [address] PCP - Cristobal FIGUEROA 03/21/21 Shari Mckeon MD [address] [place] [address] PCP - General Family Medicine 07/26/22 Social Studies Teacher Relationship Specialty Start Date End Date Alexander Aparicio NP [address] [place] [address] PCP - Cristobal FIGUEROA 03/21/21 Shari Mckeon MD [address] [place] [address] PCP - General Family Medicine 07/26/22 Social Studies Teacher Relationship Specialty Start Date End Date Alexander Aparicio NP [address] [place] [address] PCP - Cristobal FIGUEROA 03/21/21 Shari Mckeon MD [address] [place] [address] PCP - General Family Medicine 07/26/22 Social Studies Teacher Relationship Specialty Start Date End Date Alexander Aparicio NP [address] [place] [address] PCP - Cristobal FIGUEROA 03/21/21 Shari Mckeon MD [address] [place] [address] PCP - General Family Medicine 07/26/22 Social Studies Teacher Relationship Specialty Start Date End Date Alexander Aparicio NP [address] [place] [address] PCP - Cristobal FIGUEROA 03/21/21 Shari Mckeon MD [address] [place] [address] PCP - General Family Medicine 07/26/22 Social Studies Teacher Relationship Specialty Start Date End Date Alexander Aparicio NP [address] [place] [address] PCP - Cristobal FIGUEROA 03/21/21 Shari Mckeon MD [address] [place] [address] PCP - General Family Medicine 07/26/22 Social Studies Teacher Relationship Specialty Start Date End Date Alexander Aparicio NP [address] [place] [address] PCP - Cristobal FIGUEROA 03/21/21 Shari Mckeon MD [address] [place] [address] PCP - General Family Medicine 07/26/22 Social Studies Teacher Relationship Specialty Start Date End Date Shari Mckeon MD [address] [place] [address] PCP - General Family Medicine 07/26/22 Social Studies Teacher Relationship Specialty Start Date End Date Shari Mckeon MD [address] [place] [address] PCP - General Family Medicine 07/26/22 Social Studies Teacher Relationship Specialty Start Date End Date Shari Mckeon MD [address] [place] [address] PCP - General Family Medicine 07/26/22 Social Studies Teacher Relationship Specialty Start Date End Date Shari Mckeon MD [address] [place] [address] PCP - General Family Medicine 07/26/22 Social Studies Teacher Relationship Specialty Start Date End Date Shari Mckeon MD [address] [place] [address] PCP - General Family Medicine 07/26/22 FOR [...] BE BASED ON THE PRIMARY CLINICAL RECORDS. [employer] [facility]. provides no warranty or guarantee of the accuracy or completeness of information in this document.
--- NOTE | 2024-10-05 21:40 | ED_ITS ---
HPI - Abdominal Pain General Chief Complaint: Abdominal Pain Stated Complaint: SIDE/ABDOMINAL PAIN Time Seen by Provider: 10/05/24 21:30 Source: patient Mode of arrival: walk-in Limitations: no limitations History of Present Illness HPI narrative: patient has chronic lower back pain and is followed by pain clinic. Presents complaining of pain of her right abdomen. Seen earlier today and states she had back and abdominal pain. The back pain resolved with treatment but abdominal pain continued. she now returns because of the abdominal pain. No respiratory symptoms . No fever or chills or nausea/diarrhea Related Data Home Medications ?Medication ?Instructions ?Recorded ?Confirmed calcium 600 mg (as 1 tab PO BID 07/11/23 carbonate)-vitamin D3 5 mcg (200 unit) tablet (Calcium 600 + D(3)) losartan 100 mg tablet 100 mg PO DAILY 07/11/23 multivitamin-ferrous 1 tab PO DAILY 07/11/2309/12 fumarate-folic acid 18 mg-400 mcg tablet (Centrum Women) trazodone 50 mg tablet 50 mg PO DAILY 07/11/2309/12 albuterol 90 mcg/actuation aerosol mcg inhalation BID 02/01/24 inhaler metoprolol succinate 25 mg 25 mg PO DAILY 10/05/24 tablet,extended release 24 hr Previous Rx's ?Medication ?Instructions ?Recorded acetaminophen 300 mg-codeine 30 mg 1 tab PO BID PRN pa in #60 tabs 01/11/24 tablet acetaminophen 300 mg-codeine 30 mg 1 tab PO BID PRN pa in #60 tabs 02/23/24 tablet acetaminophen 300 mg-codeine 30 mg 1 tab PO BID PRN pa in #60 tabs 03/28/24 tablet acetaminophen 300 mg-codeine 30 mg 1 tab PO BID PRN pa in #60 tabs 06/25/24 tablet hydrocodone 5 mg-acetaminophen 325 1 tab PO Q6H PRN pa in 5 days #10/05/24 mg tablet tabs Allergies Allergy/AdvReac Type Severity Reaction Status Date / Time No Known Drug Allergies Allergy Verified 10/05/24 21:25 Review of Systems ROS Status of ROS 10 or more systems reviewed and unremark able except as noted in history and below [facility] Medical History Osteoarthritis ?M19.90 - Unspecified osteoarthritis, unspecified site (ICD-10) Heart murmur ?R01.1 - Cardiac murmur, unspecified (ICD-10) Surgical History History of total shoulder replacement ?Z96.619 - Presence of unspecified artificial shoulder joint (ICD-10) History of total knee arthroplasty ?Z96.659 - Presence of unspecified artificial knee joint (ICD-10) History of carpal tunnel release ?Z98.890 - Other specified postprocedural states (ICD-10) Social History Little interest or pleasure in doing things: not at all Feeling down, depressed, or hopeless: not at all Exam Constitutional Vital Signs, click to edit/add: Last Vital Signs Temp 97.8 F 10/05/24 21:19 Pulse 98 H 10/06/24 03:03 Resp 20 10/06/24 03:03 BP 135/61 10/06/24 03:03 Pulse Ox 94 L 10/06/24 03:03 O2 Del Method Room Air 10/06/24 03:03 Common normals: no apparent distress, oriented x3, alert and well nourished [facility] Common normals: normocephalic and head/scalp atraumatic Eye Common normals: EOMs intact bilaterally and conjunctivae normal Respiratory Common normals: normal respiratory effort, no retractions, no use of accessory muscles and clear to auscultation bilaterally Cardio Common normals: regular rate, regular rhythm, S1 normal heart sound and S2 normal heart sound GI Other: mild RLQ tenderness and mod. RUQ tenderness to deep palpation. Extremity Common normals: normal to inspection and full ROM Neuro Common normals: oriented x3, CN's II-XII intact bilaterally, moves all extremities and no focal motor deficits Psych Appearance: grossly normal Course Vital Signs Vital signs: Vital Signs Temperature 97.8 F 10/05/24 21:19 Pulse Rate 83 10/05/24 21:19 Respiratory Rate 20 10/05/24 21:19 Blood Pressure 130/70 10/05/24 21:19 Pulse Oximetry 95 10/05/24 21:19 Oxygen Delivery Method Room Air 10/05/24 21:19 Temperature 97.8 F 10/05/24 21:19 Pulse Rate 98 H 10/06/24 03:03 Respiratory Rate 20 10/06/24 03:03 Blood Pressure 135/61 10/06/24 03:03 Pulse Oximetry 94 L 10/06/24 03:03 Oxygen Delivery Method Room Air 10/06/24 03:03 MDM - Abdominal Pain MDM Narrative Medical decision making narrative: patient returns with continue right sided abdominal pain. Mild-mod RUQ tenderness to deep palpation without guarding. labs with mild elevation of AST and ALT. Normal lipase , alk phos and T. bili CT with findings supportive of acute cholecystitis. Discussed with Gen. Surgeon Dr Duarte who who like the patient admitted to the hospitalist service and given dose of Invanz Lab Data Labs: Lab Results 10/05/24 Range/Units 21:25 WBC 12.6 H (4.0-11.0) 10^3/uL RBC 3.87 L (4.20-5.40) 10^6/uL Hgb 12.4 (12.0-16.0) g/dL Hct 37.1 (36.0-48.0) % MCV 95.9 (81.0-99.0) fL MCH 32.0 (26.7-34.0) pg MCHC 33.4 (29.9-35.2) g/dL RDW 12.8 (11.0-15.0) % Plt Count 254 (150-450) 10^3/uL MPV 11.0 (9.5-13.5) fL Neut % (Auto) 88.3 H (43.0-75.0) % Lymph % (Auto) 7.0 L (20.5-60.0) % Solano % (Auto) 3.8 (1.7-12.0) % Eos % (Auto) 0.3 L (0.9-7.0) % Baso % (Auto) 0.2 (0.2-2.0) % Neut # (Auto) 11.1 H (1.4-6.5) 10^3/uL Lymph # (Auto) 0.9 L (1.2-3.8) 10^3/uL Solano # (Auto) 0.5 (0.3-0.8) 10^3/uL Eos # (Auto) 0.0 (0.0-0.7) 10^3/uL Baso # (Auto) 0.0 (0.0-0.1) 10^3/uL Abs Immat Gran (auto) 0.05 H (0.00-0.03) 10^3/uL Imm/Tot Granulo (auto) 0.4 (0.0-0.5) % Sodium 136 (136-145) mmol/L Potassium 3.8 (3.5-5.1) mmol/L Chloride 99 (98-107) mmol/L Carbon Dioxide 27.3 (21.0-32.0) mmol/L Anion Gap 13.5 BUN 38.0 H (7.0-18.0) mg/dL Creatinine 1.71 H (0.55-1.02) mg/dL Est GFR ( Amer) 35 L (>=60 mL/min/1.73m^2) Est GFR (Non-Af Amer) 29 L (>=60 mL/min/1.73m^2) BUN/Creatinine Ratio 22.2 Glucose 125 H (74-106) mg/dL Lactate 0.9 (0.4-2.0) mmol/L Calcium 9.7 (8.5-10.1) mg/dL Total Bilirubin 0.7 (0.2-1.0) mg/dL AST 131 H (15-37) U/L ALT 102 H (14-59) U/L Alkaline Phosphatase 94 (46-116) U/L Total Protein 7.4 (6.4-8.2) g/dL Albumin 3.4 (3.4-5.0) g/dL Globulin 4.0 g/dL Albumin/Globulin Ratio 0.9 Lipase 51.0 (16.0-77.0) U/L Discharge Plan Discharge Chief Complaint: Abdominal Pain Clinical Impression: Acute acalculous cholecystitis Patient Disposition: [facility] Discharge Date/Time: 10/06/24 03:20
--- NOTE | 2024-10-05 21:43 | CT_ITS ---
The [address] [address] Patient Name: TRACI BRARAZA MRN: [id number] date: 1945 Sex: F Assigned Patient Location: ER Current Patient Location: ER Accession/Order Number: [id number] Exam Date: 10/05/2024 23:50 Report Date: 10/06/2024 00:00 At the request of: BAMBI ARCE MD Procedure: CT abdomen pelvis wo con CT Abdomen and Pelvis withoutcontrast TECHNIQUE: Axial imaging with 2-D reconstruction.No IV contrast. Oral contrast given. The CT exam was performed using one or more the following dose reduction techniques: Automated exposure control, adjustment of the MA and/or Kv according to patient size, or use of the iterative reconstruction technique. COMPARISON: None History: Right lower quadrant pain. Back pain LIMITATIONS: None LOWER THORAX mild atelectasis LIVER: Unremarkable GALLBLADDER: Gallbladder distention with marked wall thickening. No calcified stone. Adjacent inflammation. BILE DUCTS: 14 mm prominence of the common bile duct. No calcified obstructing stone seen. No intrahepatic biliary ductal dilatation. SPLEEN: Unremarkable PANCREAS: Unremarkable ADRENAL GLANDS: Unremarkable KIDNEYS:Unremarkable AORTA: No abdominal aortic aneurysm identified. RETROPERITONEUM: No significant retroperitoneal abnormalities identified. MESENTERY:Unremarkable STOMACH:Unremarkable SMALL BOWEL: The small bowel loops are nondistended. Contrast throughout small bowel. APPENDIX: The appendix is normal. COLON: Contrast in the colon. Moderate stool distally. URINARY BLADDER: Urinary bladder is unremarkable. REPRODUCTIVE SYSTEM: Reproductive structures are unremarkable. PNEUMOPERITONEUM: None PERITONEAL FLUID:None BONY STRUCTURES: Scoliosis. Degenerative change. ABDOMINAL WALL: Unremarkable CT/CT abdomen pelvis wo con IMPRESSION: Distended gallbladder with mild gallbladder wall thickening. Adjacent stranding. May represent cholecystitis. Prominence of common bile duct without obstructing stone. No CT findings of acute appendicitis. Similar lumbar degeneration and thoracolumbar scoliosis. Impression dictated by: Juan Fong M.D. 10/06/2024 12:00 AM Dictation Location: [facility] Electronically authenticated by: [id number] Y Date: 10/06/2024 00:00
[2024-10-05] MEDS: 0.9 % SODIUM CHLORIDE 1,000 ML 999 ML IV (21:53)
[2024-10-05 22:22] LABS: Hematocrit 37.1 % (36.0-48.0); Hemoglobin 12.4 g/dL (12.0-16.0); Immature Granulocytes Abs Auto 0.05 10^3/uL (0.00-0.03); Immature Granulocytes Pct Auto 0.4 % (0.0-0.5); Lymphocytes Absolute Auto 0.9 10^3/uL (1.2-3.8); Mean Corpuscular HGB Conc 33.4 g/dL (29.9-35.2); Mean Corpuscular Hemoglobin 32.0 pg (26.7-34.0); Mean Corpuscular Volume 95.9 fL (81.0-99.0); Platelet Count 254 10^3/uL (150-450); Red Blood Count 3.87 10^6/uL (4.20-5.40); White Blood Count 12.6 10^3/uL (4.0-11.0)
[2024-10-05 22:33] LABS: Alanine Aminotransferase 102 U/L (14-59); Albumin Globulin Ratio 0.9; Albumin Level 3.4 g/dL (3.4-5.0); Alkaline Phosphatase 94 U/L (46-116); Anion Gap 13.5; Aspartate Amino Transferase 131 U/L (15-37); Blood Urea Nitrogen 38.0 mg/dL (7.0-18.0); Calcium 9.7 mg/dL (8.5-10.1); Carbon Dioxide 27.3 mmol/L (21.0-32.0); Chloride 99 mmol/L (98-107); Estimated GFR (African America 35 (>=60 mL/min/1.73m^2); Estimated GFR (Non-African Ame 29 (>=60 mL/min/1.73m^2); Globulin 4.0 g/dL; Glucose 125 mg/dL (74-106); Lipase 51.0 U/L (16.0-77.0); Potassium 3.8 mmol/L (3.5-5.1); Sodium 136 mmol/L (136-145); Total Protein 7.4 g/dL (6.4-8.2)
[2024-10-05 22:35] LABS: Lactate/Lactic Acid 0.9 mmol/L (0.4-2.0)
[2024-10-06 00:02] VITALS: BP 154/75; PULSE 82; O2SAT 96
[2024-10-06] MEDS: ERTAPENEM SODIUM 1 GM in 0.9 % SODIUM CHLORIDE 50 ML IV (00:50)
[2024-10-06] MEDS: FENTANYL CITRATE/PF 100 MCG/2 ML VIAL 50 MCG IV (01:04)
[2024-10-06 03:03] VITALS: BP 135/61; PULSE 98; O2SAT 94
--- NOTE | 2024-10-06 03:08 | PC.NURSE ---
[facility] arrives for transport.
== END 2024-10-06 03:20 | disposition short-term general hospital (02) ==
PROVIDERS: Emergency Provider Internal Medicine; PCP Family Medicine
DX: K81.0 Acute cholecystitis (principal); M54.50 Low back pain, unspecified; Z96.619 Presence of unspecified artificial shoulder joint; Z96.659 Presence of unspecified artificial knee joint
CPT/HCPCS: 36415; 72070; 72100; 74176; 80053; 81001; 83605; 83690; 85025; 96365; 96372; 96375; 99285; J1335; J1885; J3010; Q9967

== ENCOUNTER 2024-10-25 08:26 | Outpatient (OUT) | payer MEDICARE, SELFPAY ==
--- OUTSIDE RECORDS SUMMARY | 2024-10-25 08:31 | XMS_ITS | Encounter Summary ---
Author Organization [facility] Address [address] [place] [address] Care Team Providers Care Business Administration Professor Name Role Phone Shari Kay MD Primary Care Provider [phone] Encounter Details Date Type Department Care Team (Late st Contact Info) Description 10/22/2024 Patient Outreach [facility] [address] [place] [phone] Anh King LPN Social History Tobacco Use Types Packs/Day Years [...] on file documented as of this encounter Progress Notes * Anh King LPN - 10/22/2024 2:06 PM EDT Flowsheet Row Patient Outreach from 10/22/[address] [facility] with Anh King LPN Week Number Call Week 2 Call Was patient contacted successfully? Yes Have you had any urgent care/ED/Hospital visits since discharge? No Any medication changes since last contact? No Is the patient taking all medications as directed? Yes Have you visited your PCP since discharge? No Have you visited your specialist since discharge? Yes Does patient have home health? no What is the patient's perception of their health status since discharge? Returned to baseline/stable Is the patient/caregiver able to teach back the hierarchy of who to call/visit for symptoms/problems? PCP, Specialist, Home Health nurse, Urgent Care, ED, 911 Yes documented in this encounter Plan of Treatment Upcoming Encounters Date Type Department Care Team (Late st Contact Info) Description 11/02/2024 9:30 AM EDT Office Visit [facility] [address] [facility] [address] [place] [address] Shahriar Warren DO [address] [facility] 150 [place] [address] documented as of this encounter Visit Diagnoses Diagnosis Cholecystitis- Primary Cholecystitis, unspecified Mild aortic stenosis Aortic valve disorders documented in this encounter Additional Health Concerns Assessment Noted Time PHQ-9 Depression Total Score: 2 06/17/19 24 8:00 AM EDT documented as of this encounter Care Teams Business Administration Professor Relationship Specialty Start Date End Date Shari Kay MD [address] [place] [address] PCP - General Family Medicine 07/26/22 documented as of this encounter
--- OUTSIDE RECORDS SUMMARY | 2024-10-25 08:31 | XMS_ITS | Encounter Summary ---
Author Organization [facility] Address [address] [place] [address] Care Team Providers Care Teletypewriter Operator Name Role Phone Shari Kay MD Primary Care Provider [phone] Encounter Details Date Type Department Care Team (Late st Contact Info) Description [facility] [address] [place] [address] Shari Kay MD [address] [place] [address] Social History Tobacco Use Types [...] Description 11/02/2024 9:30 AM EDT Office Visit [facility] [address] [facility] 150 [place] [address] Shahriar Warren, 703 [facility] 150 [place] [address] documented as of this encounter Visit Diagnoses Not on filedocumented in this encounter Additional Health Concerns Assessment Noted Time PHQ-9 Depression Total Score: 2 06/17/19 24 8:00 AM EDT documented as of this encounter Care Teams Teletypewriter Operator Relationship Specialty Start Date End Date Shari Kay MD [address] [facility] [place] [address] PCP - General Family Medicine 07/26/22 documented as of this encounter
--- OUTSIDE RECORDS SUMMARY | 2024-10-25 08:31 | XMS_ITS | Encounter Summary ---
Author Organization [facility] Address [address] [place] [address] Care Team Providers Care Foam Tank Laminator Name Role Phone Tamara Aparicio BED OPERATOR Unavailable [phone] Shari Mckeon MD Primary Care Provider [phone] Encounter Details Date Type Department Care Team [...] EDT Office Visit [facility] [address] [facility] 150 [place] [address] Shahriar Warren DO 703 [facility] [address] [place] [address] documented as of this encounter Procedures Procedure Name Priority Date/Time Associated Diagnosis Comments XR THORACIC SPINE 2 VIEWS 12/14/2023 9:08 AM EDT documented in this encounter Results * XR thoracic spine 2 views (12/14/2023 9:08 AM EDT) Anatomical Region Laterality Modality Spine, T-spine Radiographic Lindsay ging 12/14/2023 9:08 AM EDT Narrative 12/14/2023 9:10 [place] [address] XRay Report Signed Patient: Radha Cuadra MR#: [id number] : 1945 Acct:[id number] Age/Sex: 78 / F ADM Date: 12/14/23 Loc: RAD Attending Dr: Rinku Bennett NP Ordering Physician: Rinku Bennett NP Date of Service: 12/14/23 Procedure(s): XR thoracic spine 2V Accession Number(s): [id number] cc: Rinku Bennett NP; SHARI MCKEON [address] [address] Patient Name: RADHA CUADRA MRN: [id number] date: 1945 Sex: F Assigned Patient Location: RAD Current Patient Location: RAD Accession/Order Number: [id number] Exam Date: 12/14/2023 08:16 Report Date: 12/14/2023 [...] M.D. Signed By: 12/14/23909 DD/ 7 TD/TT: Drainage Design Coordinator: Procedure Note Radiology, Radiologist, MD - 12/14/2023 [place] [address] XRay Report Signed Patient: Radha Cuadra EMR#: [id number] : 5Acct:[id number] Age/Sex: 78 / FADM Date: 12/14/23 Loc: RAD Attending Dr: Rinku Bennett NP Ordering Physician: Rinku Bennett NP Date of Service: 12/14/23 Procedure(s): XR thoracic spine 2V Accession Number(s): [id number] cc: Rinku Bennett NP; SHARI MCKEON [address] [place] [id number] Patient Name: RADHA CUADRA MRN: [id number] date: 1945 Sex: F Assigned Patient Location: [facility] Current Patient Location: [facility] Accession/Order Number: [id number] Exam Date: 12/14/2023 08:16 Report Date: 12/14/2023 [...] ALANIS Date: 12/14/2023 09:08 Dictated By: Rodri Alansi M.D. Signed By:12/14/23909 DD/ 7 TD/TT: Drainage Design Coordinator: us Generic External Data Provider IMG XR PROCEDURES Final Result documented in this encounter Visit Diagnoses Not on filedocumented in this encounter Additional Health Concerns Assessment Noted Time PHQ-9 Depression Total Score: 2 06/17/19 24 8:00 AM EDT documented as of this encounter Care Teams Foam Tank Laminator Relationship Specialty Start Date End Date Tamara Aparicio NP [address] [address] PCP - Cristobal FIGUEROA 03/21/21 06/11/24 Shari Mckeon MD [address] [place] [address] PCP - General Family Medicine 07/26/22 documented as of this encounter
--- OUTSIDE RECORDS SUMMARY | 2024-10-25 08:31 | XMS_ITS | Encounter Summary ---
Author Organization [facility] Address [address] [place] [address] Care Team Providers Care Piccoloist Name Role Phone Tamara Aparicio COVERING MACHINE TENDER Unavailable Shari Kay MD Primary Care Provider [phone] Encounter Details Date Type Department Care Team (Late st Contact Info) Description 07/11/2023 Abstract [facility] [address] [place] [address] Shari Kay MD [address] [place] [address] Social History Tobacco Use Types [...] EDT [facility] [address] [facility] 150 [place] [address] Shahriar Warren, 703 [facility] 150 [place] [address] documented as of this encounter Visit Diagnoses Not on filedocumented in this encounter Additional Health Concerns Assessment Noted Time PHQ-9 Depression Total Score: 2 06/17/19 24 8:00 AM EDT documented as of this encounter Care Teams Piccoloist Relationship Specialty Start Date End Date Tamara Aparicio NP [address] [facility] 1 [place] [address] PCP - Cristobal FIGUEROA 03/21/21 06/11/24 Shari Kay MD [address] [place] [address] PCP - General Family Medicine 07/26/22 documented as of this encounter
--- OUTSIDE RECORDS SUMMARY | 2024-10-25 08:31 | XMS_ITS | Encounter Summary ---
Author Organization [facility] Address [address] [place] [address] Care Team Providers Care Ice Cream Truck Driver Name Role Phone Tamara Aparicio Temo AIRCRAFT RIVETER Unavailable Shari Kay MD Primary Care Provider Encounter Details Date Type Department Care Team (Late st Contact Info) Description 08/19/2022 Abstract [facility] [address] [place] [address] Shari Kay MD [address] [place] [address] Social History Tobacco Use Types [...] EDT [facility] Visit [facility] [address] [place] 150 [place] [address] Shahriar Warren DO [address] [place] [address] [place] [address] documented as of this encounter Visit Diagnoses Not on filedocumented in this encounter Care Teams Ice Cream Truck Driver Relationship Specialty Start Date End Date Tamara Aparicio NP [address] [facility] 1 [place] [address] PCP - Cristobal FIGUEROA 03/21/21 06/11/24 Shari Kay MD [address] [place] [address] PCP - General Family Medicine 07/26/22 documented as of this encounter
--- OUTSIDE RECORDS SUMMARY | 2024-10-25 08:31 | XMS_ITS | Encounter Summary ---
Author Organization [facility] Address [address] [place] [address] Care Team Providers Care Coach Mechanic Name Role Phone Shari Kay MD Primary Care Provider [phone] Reason for Visit * Reason Comments Med Refill Encounter Details Date Type Department Care Team (Late st Contact Info) Description 10/22/2024 Refill [facility] [address] [place] [address] China Ortiz NP [address] [place] [address] PVC (premature ventricular contraction); Essential hypertension Social History Tobacco Use Types [...] EDT [facility] Visit [facility] [address] [facility] 150 [place] [address] Shahriar Warren DO 703 [facility] 150 [place] [address] documented as of this encounter Visit Diagnoses Diagnosis PVC (premature ventricular contraction) Other premature beats Essential hypertension Unspecified essential hypertension documented in this encounter Additional Health Concerns Assessment Noted Time PHQ-9 Depression Total Score: 2 06/17/19 24 8:00 AM EDT documented as of this encounter Care Teams Coach Mechanic Relationship Specialty Start Date End Date Shari Kay MD [address] [place] [address] PCP - General Family Medicine 07/26/22 documented as of this encounter
--- OUTSIDE RECORDS SUMMARY | 2024-10-25 08:31 | XMS_ITS | Encounter Summary ---
Author Organization [facility] Address [address] [place] [address] Care Team Providers Care Network Architect Name Role Phone Tamara Aparicio BOOK CRITIC Unavailable [phone] Shari Kay MD Primary Care Provider [phone] Reason for Visit * Reason Comments Med Refill Encounter Details Date Type Department Care Team (Late st Contact Info) Description 08/24/2022 Refill [facility] [address] [place] [address] [place] [address] Ede Ramos DO [address] [place] [address] [place] [address] Social History Tobacco Use Types Packs/Day Years [...] EDT Office Visit [facility] [address] [place] [address] [place] [address] Shahriar Warren, DO 703 [facility] 150 [place] [address] documented as of this encounter Visit Diagnoses Not on filedocumented in this encounter Care Teams Network Architect Relationship Specialty Start Date End Date Tamara Aparicio NP [address] [facility] 1 [place] [address] PCP - Cristobal FIGUEROA 03/21/21 06/11/24 Shari Kay MD [address] [place] [address] PCP - General Family Medicine 07/26/22 documented as of this encounter
--- OUTSIDE RECORDS SUMMARY | 2024-10-25 08:31 | XMS_ITS | Encounter Summary ---
Author Organization [facility] Address [address] [place] [address] Care Team Providers Care Junior High School Teacher Name Role Phone Alessandra Tamara Temo BELL VALET Unavailable [phone] Shari Kay MD Primary Care Provider [phone] Reason for Visit * Reason Comments Med Refill Encounter Details Date Type Department Care Team (Late st Contact Info) Description 03/19/2024 [facility] 14[address] [place] [address] Shari Kay MD [address] [place] [address] Essential hypertension Social History Tobacco [...] EDT Office Visit [facility] [address] [facility] 150 [place] [address] Shahriar Warren, 703 [facility] 150 [place] [address] documented as of this encounter Visit Diagnoses Diagnosis Essential hypertension Unspecified essential hypertension documented in this encounter Additional Health Concerns Assessment Noted Time PHQ-9 Depression Total Score: 2 06/17/19 24 8:00 AM EDT documented as of this encounter Care Teams Junior High School Teacher Relationship Specialty Start Date End Date Tamara Aparicio NP [address] [facility] 1 [place] [address] PCP - Cristobal FIGUEROA 03/21/21 06/11/24 Shari Kay MD [address] [facility] [place] [address] PCP - General Family Medicine 07/26/22 documented as of this encounter
--- OUTSIDE RECORDS SUMMARY | 2024-10-25 08:31 | XMS_ITS | Encounter Summary ---
Author Organization [facility] Address [address] [place] [address] Care Team Providers Care Cold Saw Operator Name Role Phone Shari Kay MD Primary Care Provider [phone] Encounter Details Date Type Department Care Team (Latest Contact Info) Description 10/18/2024 Travel Social History Tobacco Use Types Packs/Day Years [...] Office Visit [facility] [address] [facility] [address] [place] [address] Shahriar Warren, DO [address] [address] documented as of this encounter Visit Diagnoses Not on filedocumented in this encounter Additional Health Concerns Assessment Noted Time PHQ-9 Depression Total Score: 2 06/17/19 24 8:00 AM EDT documented as of this encounter Care Teams Cold Saw Operator Relationship Specialty Start Date End Date Shari Kay MD [address] [place] [address] PCP - General Family Medicine 07/26/22 documented as of this encounter
--- OUTSIDE RECORDS SUMMARY | 2024-10-25 08:31 | XMS_ITS | Encounter Summary ---
Author Organization [facility] Address [address] [place] [address] Care Team Providers Care Falsework Builder Name Role Phone Shari Kay MD Primary Care Provider [phone] Encounter Details Date Type Department Care Team (Late st Contact Info) Description 10/07[facility]24 [facility] [address] [place] [address] Shari Kay MD [address] [place] [address] Social History Tobacco Use Types [...] EDT [facility] Visit [facility] [address] [facility] 150 [place] [address] Shahriar Warren, 7[address] [facility] 150 [place] [address] documented as of this encounter Visit Diagnoses Not on filedocumented in this encounter Additional Health Concerns Assessment Noted Time PHQ-9 Depression Total Score: 2 06/17/19 24 8:00 AM EDT documented as of this encounter Care Teams Falsework Builder Relationship Specialty Start Date End Date Shari Kay MD [address] [facility] [place] [address] PCP - General Family Medicine 07/26/22 documented as of this encounter
--- OUTSIDE RECORDS SUMMARY | 2024-10-25 08:32 | XMS_ITS | Encounter Summary ---
Author Organization [facility] Address [address] [place] [address] Care Team Providers Care Cray Fishing Hand Name Role Phone Shari Kay MD Primary Care Provider [phone] Encounter Details Date Type Department Care Team (Late st Contact Info) Description 10/15/2024 Patient Outreach [facility] [address] [place] [id number] Anh King LPN Social History Tobacco Use [...] Progress Notes * Anh King LPN - 10/15/2024 9:41 AM EDT Images from the original note were not included. Flowsheet Row Patient Outreach from 10/15/2024 in [facility] with Anh King LPN Week Number Call Week 1 Call Was patient contacted successfully? Yes Have you had any urgent care/ED/Hospital visits since discharge? No Any medication changes since last contact? No Is the patient taking all medications as directed? Yes Have you visited your PCP since discharge? No Have you visited your specialist since discharge? Yes [General surgery. Dr. Warren 10/10] Does patient have home health? no What is the patient's perception of their health status since discharge? Returned to baseline/stable Is the patient/caregiver able to teach back the hierarchy of who to call/visit for symptoms/problems? PCP, Specialist, Home Health nurse, Urgent Care, ED, 911 Yes Patient reports that at this time she is doing well. She had post-op appt on 10/[address] Warren. At that time her SAUD drain was removed and reported to have a daily output of around 20mL. Incision site normal with no s/s of infection. Normal bm and continues to take atb as directed. Today she states that she's doing great. No concerns endorsed at this time. 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 Encouraged to call office with any questions or concerns.She vu. documented in this encounter Plan of Treatment Upcoming Encounters Date Type Department Care Team (Late st Contact Info) Description 11/02/2024 9:30 AM EDT Office Visit [facility] [address] [facility] [address] [place] [address] Shahriar Warren DO [address] [facility] 150 [place] [address] documented as of this encounter Visit Diagnoses Diagnosis Mild aortic stenosis- Primary Aortic valve disorders Cholecystitis Cholecystitis, unspecified documented in this encounter Additional Health Concerns Assessment Noted Time PHQ-9 Depression Total Score: 2 06/17/19 24 8:00 AM EDT documented as of this encounter Care Teams Cray Fishing Hand Relationship Specialty Start Date End Date Shari Kay MD [address] [place] [address] PCP - General Family Medicine 07/26/22 documented as of this encounter
--- OUTSIDE RECORDS SUMMARY | 2024-10-25 08:32 | XMS_ITS ---
Author Organization [facility] Address [address] [place] [address] Care Team Providers Care Minute Clerk For Basic Traffic Name Role Phone Shari Kay MD Primary Care Provider [phone] 30 Day Monitoring Program Status:Enrolled (Active) Start date:10/08/2024 Enrollment date:10/08/2024 Case Team Name Relationship Phone Anh King LPN(Responsible Staff) Licensed Pra nmical Nurse [phone] Continued Care and Services Coordination
--- OUTSIDE RECORDS SUMMARY | 2024-10-25 08:32 | XMS_ITS | Clinical Summary ---
Author Organization [facility] Address [address] [place] [address] Care Team Providers Care Senior Environmental Scientist Name Role Phone Shari Kay MD Primary Care Provider [phone] Social History Tobacco Use Types Packs/Day Years Used Date Smoking Tobacco: Never Assessed Comments Unknown Sex and Gender Information Value Date Recorded Sex Assigned at Not on file Legal Sex Female 11:03 PM EDT Gender Identity Not on file Sexual Orientation Not on file Plan of Treatment Upcoming Encounters Date Type Department Care Team (Late st Contact Info) Description 11/15/2024 9:00 AM EDT Office Visit [facility] [address] [place] [address] Radha Gilmore, BLEACHER LARD [address] [place] [address] 12/03/2024 11:15 AM EDT Office Visit [facility] [address] [place] [address] Teo Burrows MD [address] [facility] [address] [facility] [place] [address] Health Maintenance Due Date Last Done Comments Depression Screening 1957 Fall Risk Screening 2009 COVID-19 Vaccine ( season) 2023 12/23/2022, 03/30/2022, 01/08/2021, Additional history exists Influenza Vaccine (#1) 2024 , 12/23/2022, 12/01/2021, Additional history exists Adult Tetanus 11/18/2026 11/18/2016 Pneumococcal Vaccine: 50+ Years Completed 11/18/2016, 11/12/2016, 05/10/2014, Additional history exists Zoster Vaccines Completed 02/14/2020, 03/2019, 11/12/2019 HIB Vaccines Aged Out No longer eligi ble based on patient's age to complete this topic HPV Vaccines Aged Out No longer eligi ble based on patient's age to complete this topic IPV Vaccines Aged Out No longer eligi ble based on patient's age to complete this topic Meningococcal B Vaccine Aged Out No l onger eligible based on patient's age to complete this topic Meningococcal Vaccine Aged Out No george andrew eligible based on patient's age to complete this topic Rotavirus Vaccines Aged Out No longer eligible based on patient's age to complete this topic Care Teams Senior Environmental Scientist Relationship Specialty Start Date End Date Shari Kay MD [address] [place] [address] PCP - General Internal Medicine 10/10/24
--- OUTSIDE RECORDS SUMMARY | 2024-10-25 08:32 | XMS_ITS | Encounter Summary ---
Author Organization [facility] Address [address] [place] [address] Care Team Providers Care Dredge Mechanic Name Role Phone Tamara Aparicio TECHNICAL SME Unavailable [phone] Shari Kay MD Primary Care Provider [phone] Encounter Details Date Type Department Care Team (Late st Contact Info) Description 07/30/2022 Abstract [facility] [address] [facility] [address] [place] [address] Ede Ramos DO [address] [facility] [address] [place] [address] Social History Tobacco Use Types Packs/Day Years [...] Visit [facility] [address] [facility] [address] [place] [phone] Shahriar Warren, DO [address] [facility] 150 [place] [address] documented as of this encounter Visit Diagnoses Not on filedocumented in this encounter Care Teams Dredge Mechanic Relationship Specialty Start Date End Date Tamara Aparicio NP [address] [facility] 1 [place] [phone] PCP - Cristobal FIGUEROA 03/21/21 06/11/24 Shari Kay MD [address] [place] [address] PCP - General Family Medicine 07/26/22 documented as of this encounter
--- OUTSIDE RECORDS SUMMARY | 2024-10-25 08:32 | XMS_ITS | Clinical Summary ---
Author Organization [facility] Address [address] [place] [address], [address] [place] [address] Care Team Providers Care Billing Spec Name Role Phone Unavailable Primary Care Provider Unavailabl e Social History Tobacco Use Types Packs/Day Years Used Date Smoking Tobacco: Never Assessed Comments Unknown Sex and Gender Information Value Date Recorded Sex Assigned at Not on file Legal Sex Female 8:33 AM EST Gender Identity Not on file Sexual Orientation Not on file Plan of Treatment Not on file
--- OUTSIDE RECORDS SUMMARY | 2024-10-25 08:32 | XMS_ITS | Clinical Summary ---
Author Organization [employer] [facility] Address [id number] [place] [address] Care Team Providers Care Electric Razor Assembler Name Role Phone Shari Kay MD Primary Care Provider [phone] Allergies No known active allergies Medications topiramate [...] knee 07/26/2018 Osteoarthritis of left knee 06/22/2017 Encounters Date Type Department Care Team Description 09/27/2024 6:30 AM EDT - 09/27/2024 11:59 PM EDT Hospital Encounter [facility] [address] [place] [address] HTN (hypertension); Irregular heartbeat; Shortness of breath Discharge Disposition: Home 09/27/2024 Travel from Last 3 Months Social History Tobacco Use Types Packs/Day Years [...] 10/04/2023 8:45 AM EDT Plan of Treatment Upcoming Encounters Date Type Department Care Team (Late st Contact Info) Description 11/01/2024 7:30 AM EDT Appointment [facility] [address] [place] [place] [address] Health Maintenance Due Date Last Done Comments Depression Screening 1957 Tobacco Screening 1956 Fall Risk Screening 2009 COVID-19 Vaccine (6 - 2023-2 5 season) 2023 12/23/2022, 03/30/2022, 01/08/2021, Additional history exists Influenza Vaccine 11/12/2024 01/05/2024, , 12/01/2021, Additional history exists DTaP,Tdap and Td Vaccines (2 - Td or Tdap) 11/18/2026 11/18/2016 Zoster (Shingles) Vaccine Completed 2019, 11/13/2019, 11/12/2019 Medical Devices Implanted Type Area Book Binder Device Identifier Shelf Expiration Date Model / Serial / Lot Cement Bn Palacos Radpq 40g Rpl [id number] - Sna - [id number] Implanted:Qt y: 1 on 06/22/2017 by Ede Ramos DO at [facility] Cement Left: Knee [employer] 02/10/2022 [id number] 1 / NA / [id number] Cmnt Bn Bio 40gm Rpl [id number] - Sna - [id number] Implanted:Qt y: 1 on 07/26/2018 by Ede Ramos DO at [facility] Cement Right: Knee [employer] 08/11/2022 [id number] / NA / [id number] Ins Tib C 8mm Kn Lt Mdl - Sna - [id number] Implanted:Qt y: 1 on 06/22/2017 by Ede Ramos DO at [facility] Orthopedic Implant Left: Knee [employer] [id number] 11/11/2021 [id number] / NA / [id number] Cmpt Fem 1 Kn Lt Mdl Persona - Sna - [id number] Implanted:Qt y: 1 on 06/22/2017 by Ede Ramos DO at [facility] Orthopedic Implant Left: Knee [employer] [id number] 06/11/2026 [id number] / NA / [id number] Cmpt Fem 2 Kn Persona Strl - Sna - [id number] Implanted:Qt y: 1 on 07/26/2018 by Ede Ramos DO at [facility] Orthopedic Implant Right: Knee [employer] 07/11/2026 [id number] 2 / NA / [id number] Ins Tib D 8mm Kn Rt Mdl - Sna - [id number] Implanted:Qt y: 1 on 07/26/2018 by Ede Ramos DO at [facility] Orthopedic Implant Right: Knee [employer] 08/11/2021 [id number] 8 / NA / [id number] Bsplt Tib C Kn Lt Mdl Persona - Sna - [id number] Implanted:Qt y: 1 on 06/22/2017 by Ede Ramos DO at [facility] Plate Left: Knee [employer] 12/11/2026 [id number] / NA / [id number] Bsplt Tib D Kn Persona Strl - Sna - [id number] Implanted:Qt y: 1 on 07/26/2018 by Ede Ramos DO at [facility] Plate Right: Knee [employer] 09/10/2026 [id number] 2 / NA / [id number] Tip Insrtr Persona Brng Disp - Sna - [id number] Implanted:Qt y: 1 on 06/22/2017 by Ede Ramos DO at [facility] Left: Knee [employer] 12/11/2021 [id number] 1 / NA / [id number] Explanted Type Area Book Binder Device Identifier Shelf Expiration Date Model / Serial / Lot Scr Gd 27mm Mqd Spr Hex Hd - Sna - [id number] Explanted:Qty: 1 on 06/22/2017 by Ede Ramos DO at [facility] Screw Left: Knee [employer] [id number] 09/10/2026 [id number] / NA / [id number] Scr Gd 48mm Qd-Spr Kn Hd Mis - Sna - [id number] Explanted:Qty: 1 on 06/22/2017 by Ede Ramos DO at [facility] Screw Left: Knee [employer] [id number] 06/12/2027 [id number] / NA / [id number] Scr Gd 48mm Qd-Spr Kn Hd Mis - Sna - [id number] Explanted:Qty: 1 on 06/22/2017 by Ede Ramos DO at [facility] Screw Left: Knee [employer] [id number] 06/12/2027 [id number] / NA / [id number] Scr Gd 48mm Qd-Spr Hex Hd Mis - Sna - [id number] Explanted:Qty: 2 on 07/26/2018 by Ede Ramos DO at [facility] Screw Right: Knee [employer] 06/11/2028 [id number] / NA / [id number] Scr Gd 33mm Hex Hd Mis - Sna - [id number] Explanted:Qty: 1 on 07/26/2018 by Ede Ramos, at [facility] Screw Right: Knee [employer] 01/12/[id number] / NA / [id number] Procedures Procedure Name Priority Date/Time Associated Diagnosis Comments ECG 12-LEAD Routine 09/27/2024 6:48 AM EDT HTN (hypertension) Irregular heartbeat Shortness of breath from Last 3 Months Results * ECG 12 lead (09/27/2024 6:48 AM EDT) 09/27/2024 6:48 AM EDT Narrative [facility] - 10/04/2024 8:50 AM EDT us China Ortiz [facility] ECG ORDERABLES Final R esult [facility] from Last 3 Months Insurance * Guarantor: Radha Cuadra Account Type Relation to Patient Date of Phone Billing Address Personal/Family Self [address] [place] [address] [facility] MEDICARE Care Teams Electric Razor Assembler Relationship Specialty Start Date End Date Shari Kay MD [address] [place] [address] PCP - General Family Medicine 06/03/17
--- OUTSIDE RECORDS SUMMARY | 2024-10-25 08:32 | XMS_ITS | Encounter Summary ---
Author Organization [facility] Address [address] [place] [address] Care Team Providers Care Remote Sensing Advisor Name Role Phone Shari Kay MD Primary Care Provider [phone] Encounter Details Date Type Department Care Team (Late st Contact Info) Description [facility]24 [facility] [address] [place] [address] Shari Kay MD [address] [place] [address] Social History Tobacco Use Types [...] EDT Office Visit [facility] [address] [facility] 150 [place] [address] Shahriar Warren, [address] [facility] 150 [place] [address] documented as of this encounter Visit Diagnoses Not on filedocumented in this encounter Additional Health Concerns Assessment Noted Time PHQ-9 Depression Total Score: 2 06/17/19 24 8:00 AM EDT documented as of this encounter Care Teams Remote Sensing Advisor Relationship Specialty Start Date End Date Shari Kay MD [address] [facility] [place] [address] PCP - General Family Medicine 07/26/22 documented as of this encounter
--- OUTSIDE RECORDS SUMMARY | 2024-10-25 08:32 | XMS_ITS | Encounter Summary ---
Author Organization [facility] Address [address] [place] [address] Care Team Providers Care Phlebotomist Name Role Phone Shari Kay MD Primary Care Provider Encounter Details Date Type Department Care Team (Late st Contact Info) Description 10/09/2024 Orders Only [facility] [address] [facility] 150 [place] [phone] Shahriar Warren DO [address] [facility] 150 [place] [address] Social History Tobacco Use Types Packs/Day Years [...] Office Visit [facility] [address] [facility] [address] [place] [address] Shahriar Warren DO [address] [facility] 150 [place] [address] documented as of this encounter Procedures Procedure Name Priority Date/Time Associated Diagnosis Comments GENERAL PATHOLOGY Routine 10/09/2024 3:18 PM EDT documented in this encounter Results * GENERAL PATHOLOGY (10/09/2024 3:18 PM EDT) Shahriar Warren DO [facility] Final Result documented in this encounter Visit Diagnoses Not on filedocumented in this encounter Additional Health Concerns Assessment Noted Time PHQ-9 Depression Total Score: 2 06/17/19 24 8:00 AM EDT documented as of this encounter Care Teams Phlebotomist Relationship Specialty Start Date End Date Shari Kay MD [address] [place] [address] PCP - General Family Medicine 07/26/22 documented as of this encounter
--- OUTSIDE RECORDS SUMMARY | 2024-10-25 08:32 | XMS_ITS | Encounter Summary ---
Author Organization [facility] Address [address] [place] [address] Care Team Providers Care Coconut Cooker Name Role Phone Shari Kay MD Primary Care Provider [phone] Encounter Details Date Type Department Care Team (Late st Contact Info) Description [facility]/07[facility]24 [facility] [address] [place] [address] Shari Kay MD [address] [place] [address] Social History Tobacco Use Types [...] EDT Office Visit [facility] [address] [facility] 150 [place] [address] Shahriar Warren, 7[address] [facility] 150 [place] [address] documented as of this encounter Visit Diagnoses Not on filedocumented in this encounter Additional Health Concerns Assessment Noted Time PHQ-9 Depression Total Score: 2 06/17/19 24 8:00 AM EDT documented as of this encounter Care Teams Coconut Cooker Relationship Specialty Start Date End Date Shari Kay MD [address] [facility] [place] [address] PCP - General Family Medicine 07/26/22 documented as of this encounter
--- OUTSIDE RECORDS SUMMARY | 2024-10-25 08:32 | XMS_ITS | Clinical Summary ---
Author Organization [facility] Address [address] [place] [address] Care Team Providers Care Drapery Cutter Name Role Phone Shari Kay MD Primary Care Provider [phone] Allergies Active Allergy Reactions Criticality Noted Date Comments Alendronate Unknown 09/10/2020 Medications CALCIUM-VITAMIN D PO in the morning and before bedtime. 06/30/19 23 Active butalbital-acetam inophen-caffeine 50-325-40 MG tablet Take 1 tablet by mouth every 4 (four) hours if needed (headache) Active Multiple Vitamin (multivitamin) capsule Take 1 capsule by mouth Daily Active atorvastatin (Lipitor) 20 MG tabletIndications :Mixed hyperlipidemia take 1 tablet by mouth once daily 90 tablet 09/28/19 24 Active traZODone (Desyrel) 50 MG tabletIndications :Primary insomnia Take 1 tablet (50 mg) by mouth at bedtime 90 tablet 11 12/22/19 24 Active Fluticasone-Salme terol 250-50 MCG/ACT aerosol powderIndications :Mild intermittent asthma, unspecified whether complicated (HCC) Inhale 1 puff in the morning and 1 puff before bedtime. 180 each 1 04/05/19 25 Active acetaminophen-cod eine (Tylenol w/ Codeine #3) 300-30 MG tablet Take 1 tablet by mouth as needed in the morning and 1 tablet as needed in the evening. 03/28/19 25 Active ondansetron (Zofran) 4 MG tablet Take 4 mg by mouth Daily as needed 04/24/19 25 Active furosemide (Lasix) 20 MG tablet Take 20 mg by mouth Daily as needed (leg swelling) 10/08/19 25 Active HYDROcodone-aceta minophen ([place]) 5-325 MG tablet Take 1 tablet by mouth every 6 (six) hours if needed for moderate pain or severe pain 10/06/19 Active albuterol HFA 90 mcg/act inhaler Inhale 2 puffs 2 (two) times a day as needed for wheezing or shortness of breath 10/07/19 25 Active metoprolol succinate XL (Toprol-XL) 25 MG 24 hr tabletIndications :PVC (premature ventricular contraction) TAKE 1 TABLET (25 MG) BY MOUTH DAILY DO NOT CRUSH OR CHEW. 90 tablet 10/23/19 25 Active losartan-hydroCHL OROthiazide (Hyzaar) 100-12.5 MG tabletIndications :Essential hypertension TAKE 1 TABLET BY MOUTH EVERY DAY IN THE MORNING 100 tablet 10/23/19 25 Active losartan-hydroCHL OROthiazide (Hyzaar) 100-12.5 MG tabletIndications :Essential hypertension Take 1 tablet by mouth in the morning. 100 tablet 05/22/19 25 2024 Discontinued metoprolol succinate XL (Toprol-XL) 25 MG 24 hr tabletIndications :PVC (premature ventricular contraction) Take 1 tablet (25 mg) by mouth Daily Do not crush or chew. 90 tablet 10/04/19 25 2024 Discontinued multivitamin with minerals (Centrum) 9-200 mg-mcg tablet split tablet Take 1 tablet by mouth Daily 10/07/19 25 2024 Discontinued(D uplicate order) amoxicillin-clavu lanate (Augmentin) 875-125 MG tablet Take 1 tablet by mouth in the morning and 1 tablet before bedtime. 10/08/19 25 2024 Active Problems Problem Noted Date Diagnosed Date Acute cholecystitis 10/08/2024 Intractable right upper quadrant abdominal pain 10/08/2024 Leukocytosis 10/08/2024 Lumbago 10/08/2024 Hyperlipidemia 08/03/2022 Other chronic pain 08/03/2022 Age-related osteoporosis wit hout current pathological fracture 07/15/2022 Artificial knee joint present 07/15/2022 Difficulty walking 07/15/2022 Essential hypertension 07/15/2022 Osteoarthritis of left glenohumeral joint 2022 Migraine without aura and wi thout status migrainosus, not intractable 07/15/2022 Mild aortic stenosis 07/15/2022 Moderate aortic regurgitation 07/15/2022 Assessment & Plan (09/26/2024 2:51 PM EDT): -consider cardiology referral pending EKG results. Nonrheumatic mitral valve regurgitation 07/16/19 Nonrheumatic tricuspid valve regurgitation 07/15 Other insomnia 07/15/2022 Pure hypercholesterolemia 07/15/2022 Assessment & Plan (09/26/2024 2:51 PM EDT): Orders: Lipid panel; Future -check lipid panel RLS (restless legs syndrome) 07/15/2022 Stage 3b chronic kidney disease 07/15/2022 Assessment & Plan (09/26/2024 2:51 PM EDT): Orders: Comprehensive metabolic panel; Future -check renal function. Avoid nephrotoxic medications. Systolic murmur 07/15/2022 Nonrheumatic aortic valve insufficiency 07/10/19 Chronic tension-type headache 10/06/2017 Mild intermittent asthma 06/12/2017 Chronic obstructive pulmonary disease 05/18/2011 Assessment & Plan (09/26/2024 2:51 PM EDT): -stable with inhalant therapy Resolved Problems Problem Noted Date Diagnosed Date [...] 06/17/2023 Intractable episodic cluster headache 03/29/2015 06/17/2023 Encounters Date Type Department Care Team Description 10/22/2024 Patient Outreach [facility] [address] [place] [address] Anh King LPN 10/22[facility] [address] [place] [address] China Ortiz NP PVC (premature ventricular contraction); Essential hypertension 10/18/2024 Travel 10/15/2024 Patient Outreach [facility] [address] [place] [address] Anh King LPN 10/10/2024 11:15 AM EDT Office Visit [facility] [address] [place] [address] Shahriar Warren, Acute cholecystitis (Primary Dx) 10/10/2024 Travel 10/09/2024 Orders Only [facility] [address] [place] [address] Shahriar Warren DO 10/08/2024 Patient Outreach [facility] [address] [place] [address] Shana Gatica RN 10/08/2024 Telephone [facility] [address] [place] [phone] Shari Olmos MA 10/08/2024 Travel 10/07/2024 Abstract [facility] [address] [facility] [place] [address] Shari Kay MD 10/07/2024 Abstract [address] [place] [address] Shari Kay MD 10/07/2024 Abstract [address] [place] [address] Shari Kay MD 10/07/2024 Abstract [address] [place] [address] Shari Kay MD 10/07/2024 External Result Encounter [facility] Unsolicited Shahriar Warren, DO 10/07/2024 External Result Encounter [facility] External [facility] Unsolicited Shahriar Warren, DO 09/28/2024 Results Follow-Up [address] [place] [address] China Ortiz NP CBC and differential, Comprehensive metabolic panel, Lipid panel 09/26/2024 2:00 PM EDT Office Visit [address] [place] [address] China Ortiz NP Primary hypertension (Primary Dx); Stage 3b chronic kidney disease (CMS-HCC); Pure hypercholesterolemia ; Irregular heart beat; Shortness of breath; Chronic obstructive pulmonary disease, unspecified COPD type (HCC); Moderate aortic regurgitation; PVC (premature ventricular contraction) 09/26/2024 Bamboo flowsheet [address] [place] [address] China Ortiz NP 09/26/2024 Travel from Last 3 Months Immunizations Immunization Administration Dates Next Due Influenza Whole 12/30/2014,12/13/2013 Influenza, High Dose Seasona l, Preservative Free 01/05/2024,11/30/2017,11/18/2016,12/10 Influenza, High-dose Seasona l, Quadrivalent, Preservative Free 12/23/2022,12/16/2020 Influenza, Recombinant, inje ctable, preservative free 12/01/2021 Influenza, Seasonal, Quadriv alent, Adjuvanted 12/01/2021 Influenza, injectable, quadr ivalent, preservative free 11/13/2019,12/30/2014 Influenza, seasonal, injectable 12/07/2019 Influenza, seasonal, intrade rmal, preservative free 01/12/2013 Influenza, trivalent, adjuvanted 11/29/2018,11/12,11/18/2016 Pneumococcal Conjugate PCV 13 11/18/2016, 015 Pneumococcal Conjugate, Unspecified 01/12/2013 Pneumococcal Polysaccharide PPSV23 11/12/2016, RSV, recombinant, protein payton bunit RSVpreF, adjuvant reconstitu, 120mcg/0.5mL, PF (Arexvy) 01/19/2024 SARS-COV-2 (COVID-19) vaccin e, mRNA, spike protein, [...] Sign Reading Time Taken Comments Blood Pressure 132/76 10/10/2024 11:06 AM EDT Pulse 62 09/26/2024 2:01 PM EDT Temperature 37.4 C (99.3 F) 05/09/2024 10:34 AM EST Respiratory Rate 18 09/19/2023 2:02 PM EDT Oxygen Saturation 95% 09/26/2024 2:01 PM EDT Inhaled Oxygen Concentration - - Weight 48.5 kg (107 lb) 10/10/2024 11:06 AM EDT Height 149.9 cm (4' 11 ) 10/10/2024 11:06 AM EDT Body Mass Index 21.61 10/10/2024 11:06 AM EDT Plan of Treatment Upcoming Encounters Date Type Department Care Team (Late st Contact Info) Description 11/02/2024 9:30 AM EDT Office Visit [facility] [address] [facility] [address] [place] [phone] Shahriar Warren DO [address] [facility] [address] [place] [address] Health Maintenance Due Date Last Done Comments Medicare Annual Wellness (AWV) 06/16/2024 06/17/2023 , 06/17/2023 Influenza Vaccine (#1) 2024 , 12/23/2022, 12/01/2021, Additional history exists Pneumococcal Vaccine: 65+ Years Completed 11/18/2016, 11/12/2016, 05/10/2014, Additional history exists Procedures Procedure Name Priority Date/Time Associated Diagnosis Comments GENERAL PATHOLOGY Routine 10/09/2024 3:1 8 PM EDT BILIRUBIN, FRACTIONATED Routine 10/07/2024 4:53 AM EDT CREATININE Routine 10/07/2024 4:53 AM EDT UREA NITROGEN, BODY FLUID Routine 10/07/2024 4:53 AM EDT CBC WITH AUTO DIFFERENTIAL Routine 10/07/2024 4:53 AM EDT LIPID PANEL Routine 09/26/2024 2:29 PM EDT Primary hypertension Pure hypercholesterolem ia Shortness of breath COMPREHENSIVE METABOLIC PANEL Routine 09/26/2024 2:29 PM EDT Stage 3b chronic kidney disease (CMS-HCC) Shortness of breath CBC (INCLUDES DIFF/PLT) Routine 09/26/2024 2:29 PM EDT Shortness of breath from Last 3 Months Results * GENERAL PATHOLOGY (10/09/2024 3:18 PM EDT) us Shahriar Warren DO [facility] Final Result * Urea nitrogen, body fluid (10/07/2024 4:53 AM EDT) BUN 20 7 - 25 mg/dL 10/07/2024 5:39 AM EDT [facility] Other Topography unknown / Unknown 10/07/2024 4:53 AM EDT 10/07/2024 5:10 AM EDT us Shahriar Warren DO LAB BODY FLUIDS AND STOOLS ANDREW JURADO Final Result Performing Organization Address City/State/[facility] Co de Phone Number [facility] [address] [place] [address], [facility] [address] [place] [address] * (ABNORMAL) CBC auto differential (10/07/2024 4:53 AM EDT) WBC 8.5 3.8 - 11.6 [CFU]/mL 10/07/2024 5:21 AM EDT [facility] UNCORRECTED WHITE BLOOD COUNT 8.5 3.8 - 11.6 10*3/uL 10/07/2024 5:21 AM EDT [facility] RBC 3.01(L) 3.60 - 5.00 10*6/uL 10/07/2024 5:21 AM EDT [facility] HEMOGLOBIN 9.6(L) 11.8 - 15.4 g/dL 10/07/2024 5:21 AM EDT [facility] HEMATOCRIT 28.5(L) 34.0 - 46.4 % 10/07/2024 5:21 AM EDT [facility] MCV 94.6 80 - 100 fL 10/07/2024 5:21 AM EDT [facility] MCH 31.8 24.7 - 34.3 pg 10/07/2024 5:21 AM EDT [facility] MCHC 33.6 32.0 - 35.0 g/dL 10/07/2024 5:21 AM EDT [facility] RED CELL DISTRIBUTION WIDTH, RDW 13.5 11.9 - 15.3 % 10/07/2024 5:21 AM EDT [facility] PLATELET COUNT 177 150 - 450 10*3/uL 10/07/2024 5:21 AM EDT [facility] MEAN PLATELET VOLUME, MPV 8.8 6.3 - 10.7 fL 10/07/2024 5:21 AM EDT [facility] NEUTROPHILS, % 84.8 . % 10/07/2024 5:21 AM EDT [facility] LYMPHOCYTES, % 9.4 . % 10/07/2024 5:21 AM EDT [facility] MONOCYTE/MACROPHA GE, % 4.2 . % 10/07/2024 5:21 AM EDT [facility] EOSINOPHILS, % 1.3 . % 10/07/2024 5:21 AM EDT [facility] BASOPHILS, % 0.3 . % 10/07/2024 5:21 AM EDT [facility] NRBC 0.0 0 - 0.5 /100{WBC} 10/07/2024 5:21 AM EDT [facility] NEUTROPHILS 7.2 1.8 - 7.7 10*3/uL 10/07/2024 5:21 AM EDT [facility] LYMPHOCYTES 0.8(L) 1.00 - 4.8 10*3/uL 10/07/2024 5:21 AM EDT [facility] MONOCYTES 0.4 0.0 - 0.8 10*3/uL 10/07/2024 5:21 AM EDT [facility] EOSINOPHILS 0.1 0.0 - 0.45 10*3/uL 10/07/2024 5:21 AM EDT [facility] BASOPHILS 0.0 0.0 - 0.2 10*3/uL 10/07/2024 5:21 AM EDT [facility] Blood (Blood) 10/07/2024 4:5 3 AM EDT 10/07/2024 5:10 AM EDT Shahriar Warren DO LAB BLOOD ORDERABLES Final Resu lt [place] [id number], [facility] [phone] * Creatinine (10/07/2024 4:53 AM EDT) CREATININE 1.10 0.60 - 1.20 mg/dL 10/07/2024 5:39 AM EDT [facility] ESTIMATED GFR 50.796 10/07/2024 5:39 AM EDT [facility] CREATININE CLR [facility]C PHARMACY 29.30 10/07/2024 5:39 AM EDT [facility] Other Topography unknown / Unknown 10/07/2024 4:53 AM EDT 10/07/2024 5:10 AM EDT Shahriar Warren DO LAB BLOOD ORDERABLES Final Resu lt [facility] [address] [place] [address], [facility] [address] [place] [address] * Bilirubin, total and direct (10/07/2024 4:53 AM EDT) BILIRUBIN,TOTAL 0.3 0.3 - 1.0 mg/dL 10/07/2024 5:39 AM EDT [facility] BILIRUBIN,DIREC T 0.10 0.03 - 0.18 mg/dL 10/07/2024 5:39 AM EDT [facility] BILIRUBIN,INDIR ECT 0.2 mg/dL 10/07/2024 5:39 AM EDT [facility] Other Topography unknown / Unknown 10/07/2024 4:53 AM EDT 10/07/2024 5:10 AM EDT Shahriar Warren DO LAB BLOOD ORDERABLES Final Resu lt [facility] [address] [place] [address], [facility] [address] [place] [address] * CBC and differential (09/26/2024 2:29 PM EDT) WHITE BLOOD CELL COUNT 5.9 3.8 - 10.8 Thousand/u L [facility] RED BLOOD CELL COUNT 3.87 3.80 - 5.10 Million/uL [facility] HEMOGLOBIN 12.3 11.7 - 15.5 g/dL [facility] HEMATOCRIT 38.3 35.0 - 45.0 % [facility] MCV 99.0 80.0 - 100.0 fL [facility] MCH 31.8 27.0 - 33.0 pg [facility] MCHC 32.1 32.0 - 36.0 g/dL [facility] Comment: For adults, a slight decrease in the calculated MCHC value (in the range of 30 to 32 g/dL) is most likely not clinically significant; however, it should be interpreted with caution in correlation with other red cell parameters and the patient's clinical condition. RDW 11.8 11.0 - 15.0 % [facility] PLATELET COUNT 246 140 - 400 Thousand/u L [facility] MPV 10.7 7.5 - 12.5 fL [facility] ABSOLUTE NEUTROPHILS 3,499 1,500 - 7,800 cells/uL [facility] ABSOLUTE LYMPHOCYTES 1,363 850 - 3,900 cells/uL [facility] ABSOLUTE MONOCYTES 549 200 - 950 cells/uL [facility] ABSOLUTE EOSINOPHILS 448 15 - 500 cells/uL [facility] ABSOLUTE BASOPHILS 41 0 - 200 cells/uL [facility] NEUTROPHILS 59.3 % [facility] LYMPHOCYTES 23.1 % [facility] MONOCYTES 9.3 % [facility] EOSINOPHILS 7.6 % [facility] BASOPHILS 0.7 % [facility] Blood Venous blood specimen / Unknown 09/26/2024 2:29 PM EDT 09/26/2024 2:30 PM EDT Narrative Resulting Agency Comment Performing Organization Information Site ID: QPT Name: [facility] Address: [facility], [address] [place] [phone] Director: Manuel Conley MD us China Ortiz ANALYTICAL RESEARCH CHEMIST LAB BLOOD ORDERABLES Final Resu lt Performing Organization Address [facility]/ZIP Co de Phone Number [facility] * (ABNORMAL) Lipid panel (09/26/2024 2:29 PM EDT) [facility] CHOLESTEROL, TOTAL 227(H) <200 mg/dL [facility] HDL CHOLESTEROL 85 > OR = 50 mg/dL [facility] TRIGLYCERIDES 130 <150 mg/dL [facility] LDL CHOLESTEROL 117(H) mg/dL (calc) [facility] Comment: Reference range: <100 Desirable range <100 mg/dL for primary prevention; <70 mg/dL for patients with CHD or diabetic patients with > or = 2 CHD risk factors. LDL-C is now calculated using the Aakash-Sebastián calculation, which is a validated novel method providing better accuracy than the Friedewald equation in the estimation of LDL-C. Aakash SS et al. TAD. 2013;310(19): 3421-1275 (http://education.[employer].piSociety/faq/BRD375) CHOL/HDLC RATIO 2.7 <5.0 (calc) [facility] NON HDL CHOLESTEROL 142(H) <130 mg/dL (calc) [facility] Comment: For patients with diabetes plus 1 major ASCVD risk factor, treating to a non-HDL-C goal of <100 mg/dL (LDL-C of <70 mg/dL) is considered a therapeutic option. Blood Venous blood specimen / Unknown 09/26/2024 2:29 PM EDT 09/26/2024 2:30 PM EDT Narrative Resulting Agency Comment Performing Organization Information Site ID: QPT Name: [facility] Address: [facility] [address] [place] [phone] Director: Manuel Conley MD us China Ortiz NP LAB BLOOD ORDERABLES Final Resu lt Performing Organization Address [facility]/ZIP Co de Phone Number [facility] * (ABNORMAL) Comprehensive metabolic panel (09/26/2024 2:29 PM EDT) Glucose 105(H) 65 - 99 mg/dL [facility] Comment: Fasting reference interval For someone without known diabetes, a glucose value between 100 and 125 mg/dL is consistent with prediabetes and should be confirmed with a follow-up test. BUN 42(H) 7 - 25 mg/dL [facility] Creatinine 1.37(H) 0.60 - 0.95 mg/dL [facility] EGFR 39(L) > OR = 60 mL/min/1.7 3m2 [facility] BUN/CREATININE RATIO 31(H) 6 - 22 (calc) [facility] Sodium 140 135 - 146 mmol/L [facility] Potassium, Bld 4.4 3.5 - 5.3 mmol/L [facility] Chloride 102 98 - 110 mmol/L [facility] Carbon Dioxide 30 20 - 32 mmol/L [facility] Calcium 9.6 8.6 - 10.4 mg/dL [facility] PROTEIN, TOTAL 6.8 6.1 - 8.1 g/dL [facility] ALBUMIN 4.0 3.6 - 5.1 g/dL [facility] GLOBULIN 2.8 1.9 - 3.7 g/dL (calc) [facility] ALBUMIN/GLOBULIN RATIO 1.4 1.0 - 2.5 (calc) [facility] BILIRUBIN, TOTAL 0.2 0.2 - 1.2 mg/dL [facility] ALKALINE PHOSPHATASE 77 37 - 153 U/L [facility] AST 22 10 - 35 U/L [facility] ALT 15 6 - 29 U/L [facility] Blood Venous blood specimen / Unknown 09/26/2024 2:29 PM EDT 09/26/2024 2:30 PM EDT Narrative Resulting Agency Comment Performing Organization Information Site ID: QPT Name: [facility] Address: [address] [place] [address], [address] [place] [phone] Director: Manuel Conley MD China Ortiz NP LAB BLOOD ORDERABLES Final Resu lt [facility] from Last 3 Months Insurance [facility] MEDICARE ADVANTAGE Care Teams Drapery Cutter Relationship Specialty Start Date End Date Shari Kay MD [address] [place] [address] PCP - General Family Medicine 07/26/22
--- OUTSIDE RECORDS SUMMARY | 2024-10-25 08:34 | XMS_ITS | CCD ---
Author Organization [facility] Care Team Providers Care Replenishment Associate Name Role Phone PHYSICIAN, DEFAULT Admitting Unavailable [...] able Ede Ramos Attending Unavail able Alessandra SENIOR BIOSTATISTICIAN/GROUP LEADER, Alexander Plascencia Unavailable Shari Mckeon MD Primary Care Provider Jovi JAIMES, Kei Brian Attending Unavailable Jovi JAIMES, Kei Brian Attending Unavailable Giedraitis , Andrius Snehal Attending Unavailable Giedraitis , Andrius Snehal Attending Unavailable Giedraitis , Andrius Snehal Attending Unavailable Giedraitis , Andrius Snehal Attending Unavailable Giedraitis , Andrius Snehal Attending Unavailable Giedraitis , Andrius Snehal Attending Unavailable Giedraitis , Andrius Snehal Attending Unavailable Giedraitis , Blessingrius Snehal Attending Unavailable ALEXANDER MONTEMAYOR Referring Unavailab SHARI Carvalho Primary Care Unavailable SHARI MCKEON Referring Unavailable SHARI MCKEON Primary Care Unavailable Michelle Mckeon MD, Shari Byrnes Primary Care Pr ovider Kimberly Sanchez MD Admit Provider [phone] Chema Gupta DO Attending Provider Shahriar Warren DO Provider CHINA ORTIZ Attending Unavailable CHINA ORTIZ Attending Unavailable SHARI MCKEON Referring Unavailable ROGER VASQUEZ Attending Unavailable SHAHRIAR WARREN Attending Unavailable Kimberly Sanchez Admitting Unavailable Shari Michel Primary Care Un available Shahriar Warren Consulting Unavailable Chema Gupta Attending Unavailabl e Allergies Allergy Classification Reported Allergen(s) Allergy Type Date of Onset Reaction(s) Facility (2 sources) Alendronate; Translations: [Fosamax] Drug Allergy [facility] Repository (20 sources) Alendronate Drug Allergy 09-10-2020 Unknown [facility] Medications Current Medications Medication Drug Class(es) Dates Sig (Normalized) Sig (Original) acetaminophen 325 mg / butalbital 50 mg / caffeine 40 mg oral tablet (20 sources) Barbiturate, Central Nervous System Stimulant, Methylxanthine take 1 tablet by mouth every four hours as needed butalbital-aceta minophen-caffein e 50-325-40 MG tablet Take 1 tablet by mouth every 4 (four) hours if needed (headache) Active acetaminophen 300 mg / codeine phosphate 30 mg oral tablet (12 sources) Opioid Agonist Start: 03-28-2024 acetaminophen-co deine (Tylenol w/ Codeine #3) 300-30 MG tablet Take 1 tablet by mouth as needed in the morning and 1 tablet as needed in the evening. 03/28/2024 Active Start: 03-28-2024 take 1 tablet by abhinav th twice daily as needed for pain Acetaminophen-Codeine 300-30 mg tablet Active 1 TAB PO Twice daily as needed for pain October 06, 2024 12:00am Complies with drug therapy acetaminophen 325 mg / HYDROcodone bitartrate 5 mg oral tablet (3 sources) Opioid Agonist Start: 10-06-2024 take 1 tablet by mouth once daily as needed for pain Hydrocodone-Acetaminophen 5-325 mg tablet Active 1 TAB PO Daily as needed for pain October 06, 2024 12:00am Complies with drug therapy Start: 10-05-2024 take 1 tablet by abhinav th every six hours as needed for pain and pain HYDROcodone-acetaminophen ([place]) 5-325 MG tablet Take 1 tablet by mouth every 6 (six) hours if needed for moderate pain or severe pain 10/05/2024 Active [id number] 200 actuat albuterol 0.09 mg/actuat metered dose inhaler (2 sources) beta2-Adrenergic Agonist Start: 10-06-2024 take 2 puff(s) by inhalation twice daily as needed for wheezing albuterol HFA 90 mcg/act inhaler Inhale 2 puffs 2 (two) times a day as needed for wheezing or shortness of breath 10/06/2024 Active Albuterol 90 mcg/actuation aerosol (1 source) Start: 10-06-2024 take 90 ug by inhalation twice daily as needed for wheezing Albuterol 90 mcg/actuation aerosol Active 90 MCG INHALATION Twice daily as needed for shortness of breath or wheezing October 06, 2024 12:00am Complies with drug therapy amoxicillin 500 mg oral tablet (1 source) Penicillin-class Antibacterial Start: 04-27-2023 End: 05-04-2023 take 4 tablets by mouth once amoxicillin (Amoxil) 500 MG tablet Indications: S/P reverse total shoulder arthroplasty, left 4 tabs PO once 30-60 mins before procedure 4 tablet 0 04/27/2023 05/04/2023 Active amoxicillin 875 mg / clavulanate 125 mg oral tablet (3 sources) Penicillin-class Antibacterial Start: 10-07-2024 End: 10-12-2024 take 1 tablet by mouth in the morning amoxicillin-clav ulanate (Augmentin) 875-125 MG tablet Take 1 tablet by mouth in the morning and 1 tablet before bedtime. 10/07/2024 10/12/2024 Active Start: 10-07-2024 take 1 tablet by mouth every t welve hours atorvastatin 20 mg oral tablet (20 sources) [...] days. 6 tablet 0 04/18/2023 04/23/2023 Active calcium carbonate 1500 mg / cholecalciferol 200 unt oral capsule (1 source) Vitamin D Start: 10-06-2024 take 1 capsule by mouth twice daily Calcium Carbonate-Vitamin D3 (Calcium 600 + D(3)) 600 mg-5 mcg (200 unit) capsule Active 1 CAP PO Twice daily October 06, 2024 12:00am Complies with drug therapy CALCIUM-VITAMIN D PO (20 sources) Start: 06-29-2022 CALCIUM-VITAMI N D PO in the morning and before bedtime. 06/29/2022 Active Start: 06-29-2022 CALCIUM-VITAMI N D [...] bedtime. 60 each 0 04/08/2023 07/07/2023 Active furosemide 20 mg oral tablet (3 sources) Loop Diuretic Start: 10-07-2024 take 1 tablet by mouth every twenty-four hours as needed furosemide (Lasix) 20 MG tablet Take 20 mg by mouth Daily as needed (leg swelling) 10/07/2024 Active hydroCHLOROthiazide 12.5 mg / losartan potassium 100 mg oral tablet (20 sources) Thiazide Diuretic, Angiotensin 2 Receptor Aguilar Start: 10-06-2024 take 1 tablet by mouth once daily Losartan-[place] chlorothiazide 100-12.5 mg tablet Active 1 TAB PO Daily October 06, 2024 12:00am Complies with drug therapy Start: 05-21-2024 take 1 tablet by abhinav th in [...] morning. 100 tablet 0 01/18/2023 04/21/2023 Discontinued 24 hr metoprolol succinate 25 mg extended release oral tablet (5 sources) beta-Adrenergic Aguilar Start: 10-03-2024 take 1 tablet by mouth once daily metoprolol succinate XL (Toprol-XL) 25 MG 24 hr tablet Indications: PVC (premature ventricular contraction) Take 1 tablet (25 mg) by mouth Daily Do not crush or chew. 90 tablet 10/03/2024 Active Multiple Vitamin (multivitamin) capsule (20 sources) take 1 capsule by mouth once daily Multiple Vitamin (multivitamin) capsule Take 1 capsule by mouth Daily Active take 1 capsule by mouth in the m orning Multiple Vitamin (multivitamin) capsule Take 1 capsule by mouth in the morning. Active take 1 capsule by mouth in the m orning Multiple Vitamin (multivitamin) capsule Take 1 capsule by mouth in the morning. 0 Active Multivitamin tablet (1 source) Start: 10-06-2024 take 1 tablet by mouth once daily Multivitamin tablet Active 1 TAB PO Daily October 06, 2024 12:00am Complies with drug therapy ondansetron 4 mg oral tablet (11 sources) Serotonin-3 Receptor Antagonist Start: 04-24-2024 take [...] Problem Classification Problem Date Documented Date Episodic/Chronic Abdominal pain (5 sources) Right upper quadrant pain; Translations: [Right upper quadrant pain] Onset: 10-06-2024 10-06-2024 Episodic Asthma (20 sources) Mild intermittent asthma; Translations: [Mild intermittent asthma with status asthmaticus] Onset: 06-12-2017 Resolved: 06-17-2023 07-15-2022 Chronic Biliary tract disease (9 sources) Acute cholecystitis; Translations: [Acute cholecystitis] Onset: 10-06-2024 10-06-2024 Episodic Cardiac dysrhythmias (3 sources) Irregular heart beat; Translations: [Cardiac arrhythmia, unspecified] Onset: 09-27-2024 09-26-2024 Chronic Chronic kidney disease (20 sources) Chronic kidney disease stage 3B ; Translations: [Stage 3b chronic kidney disease (HCC)] Onset: 07-15-2022 07-15-2022 Chronic Chronic obstructive pulmonary disease and bronchiectasis (20 sources) Chronic obstructive pulmonary disease, unspecified; Translations: [Chronic obstructive lung disease] Onset: 05-18-2011 07-15-2022 Chronic Diseases of white blood cells (5 sources) Leukocytosis; Translations: [Elevated white blood cell count, unspecified] Onset: 10-06-2024 10-06-2024 Chronic Disorders of lipid metabolism (20 sources) Pure hypercholesterolemia ; Translations: [Pure hypercholesterolemia , unspecified] Onset: 07-15-2022 07-15-2022 Chronic Essential hypertension (20 sources) Essential (primary) hypertension; Translations: [Essential hypertension] Onset: 02-14-2020 Resolved: 06-17-2023 04-21-2023 Chronic Headache; including migraine (20 sources) Migraine, unspecified, not intractable, without status migrainosus; Translations: [Migraine without aura, not refractory ] Onset: 03-29-2015 Resolved: 06-17-2023 3 Chronic Heart valve disorders (20 sources) Nonrheumatic aortic (valve) stenosis; Translations: [Nonrheumatic aortic (valve) stenosis with insufficiency] Onset: 06-12-2017 Resolved: 06-17-2023 Chronic Heart valve disorders (20 sources) Systolic murmur; Translations: [Cardiac murmur, unspecified] Onset: 07-15-2022 Resolved: 06-17-2023 07-15-2022 Episodic Miscellaneous mental health disorders (1 source) Primary [...] Translations: [Other insomnia] Onset: 07-15-2022 07-15-2022 Chronic Spondylosis; intervertebral disc disorders; other back problems (3 sources) Low back pain; Translations: [Low back pain] Onset: 10-08-2024 10-07-2024 Episodic Unclassified (1 source) Call office on Tuesday to schedule follow-up with Dr. Warren on Tuesday or for drain removal. Unclassified (1 source) Call office on Tuesday to schedule follow-up with your Primary Care Provider within 3-5 days of discharge. Unclassified (1 source) A [facility] screening has identified you as FRAIL or AT RISK FOR FRAILTY. This puts you at a higher risk for infection, illness, falls, and other injuries. Here are four ways to help you reduce your risk of frailty: 1. IDENTIFY EARLY SIGNS OF FRAILTY Discuss contributing factors and concerns with your doctor 2. BE ACTIVE Walking and light strengthening exercises will help reduce weakness 3. EAT WELL Aim for three healthy meals a day that are high in protein 4. THINK POSITIVE Keep your mind active by being sociable and continuing to learn References: Stay Strong: Four Ways to Beat the Frailty Risk [email or web address] uaitfft-wqu-ryfbotge on/wipr-ciqvxe-rgqz- tyzu-dz-mkij-the-fra ilty-risk 10-07-2024 Unclassified (1 source) Low back pain, unspecified; Translations: [Low back pain, unspecified] Onset: 10-06-2024 Past or Other Problems Problem Classification Problem Date Documented Da te Episodic/Chronic Fever of unknown origin (4 sources) Fever, unspecified; Translations: [FEVER UNSPECIFIED] Onset: 01-02-2020 Episodic Fluid and electrolyte disorders (1 source) Dehydration; Translations: [DEHYDRATION] Onset: 01-04-2020 Episodic Gastritis and duodenitis (20 sources) Gastritis, unspecified, without bleeding; Translations: [Bile-induced gastritis] Onset: 02-14-2020 Resolved: 06-17-2023 07-15-2022 Episodic Immunizations and screening for infectious disease (1 source) Contact with and (suspected) exposure to other viral communicable diseases; Translations: [CONTCT EXPS OTH VIRL COMMUNICABL DZ] Onset: 01-30-2020 Episodic Mood disorders (20 sources) Mood disorders Onset: 06-17-2023 06-17-2023 Nonspecific chest pain (1 source) Chest pain, unspecified; Translations: [Chest pain, unspecified] Onset: 10-04-2023 Episodic Other aftercare (1 source) Other oil heaterman (current) drug therapy; Translations: [OTH CERAMIC CAPACITOR PROCESSOR CURRENT DRUG THERAPY] Onset: 02-14-2020 Episodic Other aftercare (1 source) long term care administrator (current) use of aspirin; Translations: [PRISON CURRENT USE OF ASPIRIN] Onset: 01-04-2020 Episodic [...] Test Name Value Interpretation Reference Range Facility Basophils [#/volume] in Bloo d by Automated countOrdered By: Shahriar Warren on 10-07-2024 Basophils (Bld) [#/Vol] 0.0 10*3/uL Normal 0.0-0.2 [facility] Comment on above: Result Comment: PERF ORMED BY: [place] [id number] PATHOLOGIST APPLICATION INFRASTRUCTURE ENGINEER SHERMAN AUGUSTIN M.D. Performed By: #### B ILTD, CREAT, CBC, BUN #### [facility] [address] [place] [address] [place] Basophils/100 leukocytes in Blood by Automated countOrdered By: Shahriar Warren on 10-07-2024 Basophils/100 WBC (Bld) 0.3 % Normal . [facility] Comment on above: Performed By: #### B ILTD, CREAT, CBC, BUN #### [facility] [address] [place] [address] [place] Bilirubin, Total and Directo n 10-07-2024 Bilirubin,Indirect 0.2 mg/dL Normal [facility] Comment on above: Result Comment: PERF ORMED BY: [place] [id number] PATHOLOGIST APPLICATION INFRASTRUCTURE ENGINEER SHERMAN AUGUSTIN M.D. Performed By: #### B ILTD, CREAT, CBC, BUN #### [facility] [address] [place] [address] Bilirubin.indirect [Mass/Vol] 0.10 mg/dL Normal 0.03-0.18 [facility] Comment on above: Performed By: #### B ILTD, CREAT, CBC, BUN #### [facility] [address] [place] [address] [place] Bilirubin, total and directo n 10-07-2024 Bilirubin [Mass/Vol] 0.3 mg/dL 0.3 - 1 .0 mg/dL [facility] Bilirubin.indirect [Mass/Vol] 0.1 mg/dL 0.03 - 0.18 mg/dL [facility] Magnesium [Mass/Vol] 0.2 mg/dL [facility] Bilirubin.direct [Mass/volum e] in Serum or PlasmaOrdered By: Shahriar Warren on 10-07-2024 Bilirubin.direct [Mass/Vol] 0.10 mg/dL 0.03-0.18 [facility] Bilirubin.total [Mass/volume ] in Serum or PlasmaOrdered By: Shahriar Warren on 10-07-2024 Bilirubin [Mass/Vol] 0.3 mg/dL Normal 0.3-1.0 [facility] Comment on above: Performed By: #### B ILTD, CREAT, CBC, BUN #### [facility] [address] CBC W Auto Differential pane l (Bld)on 10-07-2024 Basophils (Bld) [#/Vol] 0 10*3/uL 0.0 - 0.2 10*3/uL [facility] Basophils/100 WBC Manual cnt (Syn fld) 0.3 % . [facility] Eosinophils (Bld) [#/Vol] 0.1 10*3/uL 0.0 - 0.45 10*3/uL [facility] Eosinophils/100 WBC Manual cnt (Syn fld) 1.3 % . [facility] Erythrocyte distribution width (RBC) [Ratio] 13.5 % 11.9 - 15.3 % [facility] Hematocrit (Bld) [Volume fraction] 28.5 % Low 34.0 - 46.4 % [facility] Hemoglobin (Bld) [Mass/Vol] 9.6 g/dL Low 11.8 - 15.4 g/dL [facility] Interpretation and review of laboratory results Abnormal [facility] Lymphocytes (Bld) [#/Vol] 0.8 10*3/uL Low 1.00 - 4.8 10*3/uL [facility] Lymphocytes/100 WBC Manual cnt (Syn fld) 9.4 % . [facility] MCH (RBC) [Entitic mass] 31.8 pg 24.7 - 34.3 pg [facility] MCHC (RBC) [Mass/Vol] 33.6 g/dL 32.0 - 35.0 g/dL [facility] MCV (RBC) [Entitic vol] 94.6 fL 80 - 100 fL [facility] Monocytes (Bld) [#/Vol] 0.4 10*3/uL 0.0 - 0.8 10*3/uL [facility] Monocytes+Macrophages/ 100 WBC Manual cnt (Syn fld) 4.2 % . [facility] Neutrophils (Bld) [#/Vol] 7.2 10*3/uL 1.8 - 7.7 10*3/uL [facility] Neutrophils/100 WBC Manual cnt (Syn fld) 84.8 % . [facility] NRBC 0 /100{WBC} 0 - 0.5 /100{WBC} [facility] Platelet mean volume (Bld) [Entitic vol] 8.8 fL 6.3 - 10.7 fL [facility] Platelets (Bld) [#/Vol] 177 10*3/uL 150 - 450 10*3/uL [facility] RBC LM.HPF (Urine sed) [#/Area] 3.01 10*6/uL Low 3.60 - 5.00 10*6/uL [facility] WBC (Bld) [#/Vol] 8.5 10*3/uL 3.8 - 11.6 10*3/uL [facility] WBC LM.HPF (Urine sed) [#/Area] 8.5 [CFU]/mL 3.8 - 11.6 [CFU]/mL [facility] Complete Blood Count Auto Di ffon 10-07-2024 Mean Corpuscular HGB Conc 33.6 g/dL Normal 32.0-35.0 [facility] Comment on above: Performed By: #### B ILTD, CREAT, CBC, BUN #### [facility] [address] NRBC% 0.0 /100{WBC} Normal 0-0.5 [facility] Comment on above: Performed By: #### B ILTD, CREAT, CBC, BUN #### [facility] [address] White Blood Count 8.5 [CFU]/mL Normal 3.8-11.6 [facility] Comment on above: Performed By: #### B ILTD, CREAT, CBC, BUN #### [address] Creatinineon 10-07-2024 Creatinine Clr Calc Pharmacy 29.30 Normal [facility] Comment on above: Performed By: #### B ILTD, CREAT, CBC, BUN #### [address] GFR/1.73 sq M.predicted MDRD (S/P/Bld) [Vol rate/Area] 50.796 mL/min/{1.73_m2} Normal [facility] Comment on above: Performed By: #### B ILTD, CREAT, CBC, BUN #### [address] Creatinine [Mass/Vol]on 09-12 Creatinine (U) [Mass/Vol] 1.1 mg/dL 0.60 - 1.20 mg/dL [facility] sq M.predicted MDRD (S/P/Bld) [Vol rate/Area] 50.796 mL/min/{1.73_m2} [facility] Creatinine [Mass/volume] in Serum or PlasmaOrdered By: Shahriar Warren on 10-07-2024 Creatinine [Mass/Vol] 1.10 mg/dL Normal 0.60-1.20 [facility] Comment on above: Performed By: #### B ILTD, CREAT, CBC, BUN #### [address] Eosinophils [#/volume] in Bl ood by Automated countOrdered By: Shahriar Warren on 10-07-2024 Eosinophils (Bld) [#/Vol] 0.1 10*3/uL Normal 0.0-0.45 [facility] Comment on above: Performed By: #### B ILTD, CREAT, CBC, BUN #### [address] Eosinophils/100 leukocytes i n Blood by Automated countOrdered By: Shahriar Warren on 10-07-2024 Eosinophils/100 WBC (Bld) 1.3 % Normal . [facility] Comment on above: Performed By: #### B ILTD, CREAT, CBC, BUN #### [facility] [address] Erythrocyte distribution wid th [Ratio] by Automated countOrdered By: Shahriar Warren on 10-07-2024 Erythrocyte distribution width (RBC) [Ratio] 13.5 % Normal 11.9-15.3 [facility] Comment on above: Performed By: #### B ILTD, CREAT, CBC, BUN #### [address] Erythrocytes [#/volume] in B lood by Automated countOrdered By: Shahriar Warren on 10-07-2024 RBC (Bld) [#/Vol] 3.01 10*6/uL Low 3.60-5.00 [facility] Comment on above: Performed By: #### B ILTD, CREAT, CBC, BUN #### [address] Hematocrit [Volume Fraction] of Blood by Automated countOrdered By: Shahriar Warren on 10-07-2024 Hematocrit (Bld) [Volume fraction] 28.5 % Low 34.0-46.4 [facility] Comment on above: Performed By: #### B ILTD, CREAT, CBC, BUN #### [address] Hemoglobin [Mass/volume] in BloodOrdered By: Shahriar Warren on 10-07-2024 Hemoglobin (Bld) [Mass/Vol] 9.6 g/dL Low 11.8-15.4 [facility] Comment on above: Performed By: #### B ILTD, CREAT, CBC, BUN #### [address] Leukocytes [#/volume] correc marvel for nucleated erythrocytes in Blood by Automated counOrdered By: Shahriar Warren on 10-07-2024 WBC corrected for nucl RBC Auto (Bld) [#/Vol] 8.5 10*3/uL 3.8-11.6 [facility] Leukocytes [#/volume] in Blo od by Automated countOrdered By: Shahriar Warren on 10-07-2024 WBC (Bld) [#/Vol] 8.5 10*3/uL Normal 3.8-11.6 [facility] Comment on above: Performed By: #### B ILTD, CREAT, CBC, BUN #### [facility] [address] Lymphocytes [#/volume] in Bl ood by Automated countOrdered By: Shahriar Warren on 10-07-2024 Lymphocytes (Bld) [#/Vol] 0.8 10*3/uL Low 1.00-4.8 [facility] Comment on above: Performed By: #### B ILTD, CREAT, CBC, BUN #### [address] Lymphocytes/100 leukocytes i n Blood by Automated countOrdered By: Shahriar Warren on 10-07-2024 Lymphocytes/100 WBC (Bld) 9.4 % Normal . [facility] Comment on above: Performed By: #### B ILTD, CREAT, CBC, BUN #### [address] MCH [Entitic mass] by Automa marvel countOrdered By: Shahriar Warren on 10-07-2024 MCH (RBC) [Entitic mass] 31.8 pg Normal 24.7-34.3 [facility] Comment on above: Performed By: #### B ILTD, CREAT, CBC, BUN #### [address] MCHC Auto (RBC) [Mass/Vol]Or dered By: Shahriar Warren on 10-07-2024 MCHC (RBC) [Mass/Vol] 33.6 g/dL 32.0-35.0 [facility] MCV [Entitic volume] by Auto mated countOrdered By: Shahriar Warren on 10-07-2024 MCV (RBC) [Entitic vol] 94.6 fL Normal 80-100 [facility] Comment on above: Performed By: #### B ILTD, CREAT, CBC, BUN #### [facility] [address] [place] [address] [place] Monocytes [#/volume] in Bloo d by Automated countOrdered By: Shahriar Warren on 10-07-2024 Monocytes (Bld) [#/Vol] 0.4 10*3/uL Normal 0.0-0.8 [facility] Comment on above: Performed By: #### B ILTD, CREAT, CBC, BUN #### [facility] [address] [place] [address] [place] Monocytes/100 leukocytes in Blood by Automated countOrdered By: Shahriar Warren on 10-07-2024 Monocytes/100 WBC (Bld) 4.2 % Normal . [facility] Comment on above: Performed By: #### B ILTD, CREAT, CBC, BUN #### [place] [address] [place] Neutrophils [#/volume] in Bl ood by Automated countOrdered By: Shahriar Warren on 10-07-2024 Neutrophils (Bld) [#/Vol] 7.2 10*3/uL Normal 1.8-7.7 [facility] Comment on above: Performed By: #### B ILTD, CREAT, CBC, BUN #### [place] [address] [place] Neutrophils/100 leukocytes i n Blood by Automated countOrdered By: Shahriar Warren on 10-07-2024 Neutrophils/100 WBC (Bld) 84.8 % Normal . [facility] Comment on above: Performed By: #### B ILTD, CREAT, CBC, BUN #### [address] No Panel Informationon 10-07 [facility] No Panel InformationOrdered By: Shahriar Warren on 10-07-2024 Estimated GFR (CKD-EPI) 50.796 mL/Min [facility] Creatinine Clearance (Chem 29.30 [facility] Nucleated erythrocytes [Pres ence] in Blood by Automated countOrdered By: Shahriar Warren on 10-07-2024 Nucleated RBC Auto Ql (Bld) 0.0 /100{WBC} 0-0.5 [facility] Platelet mean volume [Entiti c volume] in Blood by Automated countOrdered By: Shahriar Warren on 10-07-2024 Platelet mean volume (Bld) [Entitic vol] 8.8 fL Normal 6.3-10.7 [facility] Comment on above: Performed By: #### B ILTD, CREAT, CBC, BUN #### [facility] [address] Platelets [#/volume] in Bloo d by Automated countOrdered By: Shahriar Warren on 10-07-2024 Platelets (Bld) [#/Vol] 177 10*3/uL Normal 150-450 [facility] Comment on above: Performed By: #### B ILTD, CREAT, CBC, BUN #### [facility] [address] Serum or plasma non-glucuron idated bilirubin measurement (mass/volume)Ordered By: Shahriar Warren on 10-07-2024 Bilirubin.indirect [Mass/Vol] 0.2 mg/dL [facility] Urea nitrogen [Mass/volume] in Serum or PlasmaOrdered By: Shahriar Warren on 10-07-2024 Urea nitrogen [Mass/Vol] 20 mg/dL Normal 7-25 [facility] Comment on above: Performed By: #### B ILTD, CREAT, CBC, BUN #### [facility] [address] [place] [address] [place] Urea nitrogen, body fluidon 10-07-2024 Urea nitrogen [Mass/Vol] 20 mg/dL 7 - 25 mg/dL [facility] Alanine aminotransferase [En zymatic activity/volume] in Serum or PlasmaOrdered By: Kimberly Sanchez on 10-06-2024 ALT [Catalytic activity/Vol] 119 U/L High 7-52 [facility] Comment on above: Performed By: #### B ILTD, LIPID, LIPASE, CBC, PT, CMP, DELMI #### [facility] [facility] [address] [place] [address] [place] Albumin [Mass/volume] in Ser um or Plasma by Bromocresol green (BCG) dye binding methoOrdered By: Kimberly Sanchez on 10-06-2024 Albumin BCG dye [Mass/Vol] 3.3 g/dL Low 3.5-5.7 [facility] Alkaline phosphatase [Enzyma tic activity/volume] in Serum or PlasmaOrdered By: Kimberly Koehleromar on 10-06-2024 ALP [Catalytic activity/Vol] 93 U/L Normal 34-104 [facility] Comment on above: Performed By: #### B ILTD, LIPID, LIPASE, CBC, PT, CMP, DELMI #### [facility] [address] Amylase [Enzymatic activity/ volume] in Serum or PlasmaOrdered By: Shahriar Warren on 10-06-2024 Amylase [Catalytic activity/Vol] 41 U/L Normal 29-103 [facility] Comment on above: Performed By: #### B ILTD, LIPID, LIPASE, CBC, PT, CMP, DELMI #### [facility] [address] Aspartate aminotransferase [ Enzymatic activity/volume] in Serum or PlasmaOrdered By: Kimberly Hindsr on 10-06-2024 AST [Catalytic activity/Vol] 161 U/L High 13-39 [facility] Comment on above: Performed By: #### B ILTD, LIPID, LIPASE, CBC, PT, CMP, DELMI #### [facility] [address] [place] [address] [place] Bilirubin, Total and Directo n 10-06-2024 Bilirubin,Indirect 0.3 mg/dL Normal [facility] Comment on above: Performed By: #### B ILTD, LIPID, LIPASE, CBC, PT, CMP, DELMI #### [facility] [address] Bilirubin.indirect [Mass/Vol] 0.30 mg/dL High 0.03-0.18 [facility] Comment on above: Performed By: #### B ILTD, LIPID, LIPASE, CBC, PT, CMP, DELMI #### [facility] [address] [place] [address] [place] Calcium [Mass/volume] in Ser um or PlasmaOrdered By: Obaydah Daromar on 10-06-2024 Calcium [Mass/Vol] 8.5 mg/dL Low 8.6-10.3 [facility] Comment on above: Performed By: #### B ILTD, LIPID, LIPASE, CBC, PT, CMP, DELMI #### [facility] [address] Carbon dioxide, total [Moles /volume] in Serum or PlasmaOrdered By: Obaydah Daromar on 10-06-2024 CO2 [Moles/Vol] 25.1 mmol/L Normal 21.0-31.0 [facility] Comment on above: Performed By: #### B ILTD, LIPID, LIPASE, CBC, PT, CMP, DELMI #### [facility] [address] [place] [address] [place] Chloride [Moles/volume] in S neva or PlasmaOrdered By: Obaydah Daromar on 10-06-2024 Chloride [Moles/Vol] 101 mmol/L Normal 98-107 [facility] Comment on above: Performed By: #### B ILTD, LIPID, LIPASE, CBC, PT, CMP, DELMI #### [facility] [address] [place] [address] [place] Cholesterol [Mass/volume] in Serum or PlasmaOrdered By: Obaydah Daromar on 10-06-2024 Cholesterol [Mass/Vol] 145 mg/dL Normal 140-200 [facility] Comment on above: Chol less than 200 m g/dl low riskChol 201-239 mg/dl borderline riskChol 240 mg/dl and greater high risk Result Comment: Chol less than 200 mg/dl low risk Chol 201-239 mg/dl borderline risk Chol 240 mg/dl and greater high risk Performed By: #### B ILTD, LIPID, LIPASE, CBC, PT, CMP, DELMI #### [facility] [address] Performed By: #### B ILTD, CREAT, CBC, BUN #### [facility] [address] Cholesterol in HDL [Mass/vol ume] in Serum or PlasmaOrdered By: Obaydah Daromar on 10-06-2024 Cholesterol in HDL [Mass/Vol] 71 mg/dL Normal 23-92 [facility] Comment on above: HDL CHOL ATP-III CLA SSIFICATION Cardiovascular RiskHDL > or equal to 60 mg/dL LOWHDL < 40 mg/dL HIGH Result Comment: HDL CHOL ATP-III CLASSIFICATION Cardiovascular Risk HDL > or equal to 60 mg/dL LOW HDL < 40 mg/dL HIGH Performed By: #### B ILTD, LIPID, LIPASE, CBC, PT, CMP, DELMI #### [address] Performed By: #### B ILTD, CREAT, CBC, BUN #### [address] Cholesterol in LDL Calc [Mas s/Vol]Ordered By: Obaydah Daromar on 10-06-2024 Cholesterol in LDL [Mass/Vol] 59 mg/dL 0-100 [facility] Comment on above: LDL ATP III CLASSIFI CATIONLDL less than 100 mg/dL OptimalLDL 100-129 mg/dL Near or above optimalLDL 130-159 mg/dL Borderline highLDL 160-189 mg/dL HighLDL greater than 189 mg/dL Very high Cholesterol in VLDL Calc [Ma ss/Vol]Ordered By: Obaydah Daromar on 10-06-2024 Cholesterol in VLDL [Mass/Vol] 14 mg/dL [facility] Complete Blood Count Auto Di ffon 10-06-2024 Basophils (Bld) [#/Vol] 0.0 10*3/uL Normal 0.0-0.2 [facility] Comment on above: Result Comment: PERF ORMED BY: [place] [address] PATHOLOGIST APPLICATION INFRASTRUCTURE ENGINEER SHERMAN AUGUSTIN M.D. Performed By: #### B ILTD, LIPID, LIPASE, CBC, PT, CMP, DELMI #### [address] Basophils/100 WBC (Bld) 0.2 % Normal . [facility] Comment on above: Performed By: #### B ILTD, LIPID, LIPASE, CBC, PT, CMP, DELMI #### [address] Eosinophils (Bld) [#/Vol] 0.0 10*3/uL Normal 0.0-0.45 [facility] Comment on above: Performed By: #### B ILTD, LIPID, LIPASE, CBC, PT, CMP, DELMI #### [address] Eosinophils/100 WBC (Bld) 0.2 % Normal . [facility] Comment on above: Performed By: #### B ILTD, LIPID, LIPASE, CBC, PT, CMP, DELMI #### [address] Erythrocyte distribution width (RBC) [Ratio] 13.4 % Normal 11.9-15.3 [facility] Comment on above: Performed By: #### B ILTD, LIPID, LIPASE, CBC, PT, CMP, DELMI #### [address] Hematocrit (Bld) [Volume fraction] 34.3 % Normal 34.0-46.4 [facility] Comment on above: Performed By: #### B ILTD, LIPID, LIPASE, CBC, PT, CMP, DELMI #### [address] Hemoglobin (Bld) [Mass/Vol] 11.5 g/dL Low 11.8-15.4 [facility] Comment on above: Performed By: #### B ILTD, LIPID, LIPASE, CBC, PT, CMP, DELMI #### [address] Lymphocytes (Bld) [#/Vol] 0.7 10*3/uL Low 1.00-4.8 [facility] Comment on above: Performed By: #### B ILTD, LIPID, LIPASE, CBC, PT, CMP, DELMI #### [address] Lymphocytes/100 WBC (Bld) 6.6 % Normal . [facility] Comment on above: Performed By: #### B ILTD, LIPID, LIPASE, CBC, PT, CMP, DELMI #### [address] MCH (RBC) [Entitic mass] 31.6 pg Normal 24.7-34.3 [facility] Comment on above: Performed By: #### B ILTD, LIPID, LIPASE, CBC, PT, CMP, DELMI #### [address] MCV (RBC) [Entitic vol] 94.8 fL Normal 80-100 [facility] Comment on above: Performed By: #### B ILTD, LIPID, LIPASE, CBC, PT, CMP, DELMI #### [address] Mean Corpuscular HGB Conc 33.4 g/dL Normal 32.0-35.0 [facility] Comment on above: Performed By: #### B ILTD, LIPID, LIPASE, CBC, PT, CMP, DELMI #### [address] Monocytes (Bld) [#/Vol] 0.4 10*3/uL Normal 0.0-0.8 [facility] Comment on above: Performed By: #### B ILTD, LIPID, LIPASE, CBC, PT, CMP, DELMI #### [address] Monocytes/100 WBC (Bld) 3.9 % Normal . [facility] Comment on above: Performed By: #### B ILTD, LIPID, LIPASE, CBC, PT, CMP, DELMI #### [address] Neutrophils (Bld) [#/Vol] 9.9 10*3/uL High 1.8-7.7 [facility] Comment on above: Performed By: #### B ILTD, LIPID, LIPASE, CBC, PT, CMP, DELMI #### [address] Neutrophils/100 WBC (Bld) 89.1 % Normal . [facility] Comment on above: Performed By: #### B ILTD, LIPID, LIPASE, CBC, PT, CMP, DELMI #### [address] NRBC% 0.0 /100{WBC} Normal 0-0.5 [facility] Comment on above: Performed By: #### B ILTD, LIPID, LIPASE, CBC, PT, CMP, DELMI #### [address] Platelet mean volume (Bld) [Entitic vol] 8.6 fL Normal 6.3-10.7 [facility] Comment on above: Performed By: #### B ILTD, LIPID, LIPASE, CBC, PT, CMP, DELMI #### [address] Platelets (Bld) [#/Vol] 207 10*3/uL Normal 150-450 [facility] Comment on above: Performed By: #### B ILTD, LIPID, LIPASE, CBC, PT, CMP, DELMI #### [address] RBC (Bld) [#/Vol] 3.62 10*6/uL Normal 3.60-5.00 [facility] Comment on above: Performed By: #### B ILTD, LIPID, LIPASE, CBC, PT, CMP, DELMI #### [address] WBC (Bld) [#/Vol] 11.1 10*3/uL Normal 3.8-11.6 [facility] Comment on above: Performed By: #### B ILTD, LIPID, LIPASE, CBC, PT, CMP, DELMI #### [address] [address] [place] White Blood Count 11.1 [CFU]/mL Normal 3.8-11.6 [facility] Comment on above: Performed By: #### B ILTD, LIPID, LIPASE, CBC, PT, CMP, DELMI #### [address] Comprehensive Metabolic Pane george 10-06-2024 Albumin [Mass/Vol] 3.3 g/dL Low 3.5-5.7 [facility] Comment on above: Performed By: #### B ILTD, LIPID, LIPASE, CBC, PT, CMP, DELMI #### [address] Bilirubin [Mass/Vol] 0.6 mg/dL Normal 0.3-1.0 [facility] Comment on above: Performed By: #### B ILTD, LIPID, LIPASE, CBC, PT, CMP, DELMI #### [address] Creatinine [Mass/Vol] 1.33 mg/dL High 0.60-1.20 [facility] Comment on above: Performed By: #### B ILTD, LIPID, LIPASE, CBC, PT, CMP, DELMI #### [address] Creatinine Clr Calc Pharmacy 24.23 Normal [facility] Comment on above: Performed By: #### B ILTD, LIPID, LIPASE, CBC, PT, CMP, DELMI #### [address] GFR/1.73 sq M.predicted MDRD (S/P/Bld) [Vol rate/Area] 40.447 mL/min/{1.73_m2} Normal [facility] Comment on above: Performed By: #### B ILTD, LIPID, LIPASE, CBC, PT, CMP, DELMI #### [address] Urea nitrogen [Mass/Vol] 28 mg/dL High 7-25 [facility] Comment on above: Performed By: #### B ILTD, LIPID, LIPASE, CBC, PT, CMP, DELMI #### [facility] [address] [place] [id number] [facility] Glucose [Mass/volume] in Ser um or PlasmaOrdered By: Kimberly Sanchez on 10-06-2024 Glucose [Mass/Vol] 99 mg/dL Normal 70-100 [facility] Comment on above: ADA recommended refe rence rangeRandom Glucose Reference Range is dependent on time and content of last meal. Glucose of more than 200 mg/dL in a nonstressed, ambulatory subject supports the diagnosis of Diabetes Mellitus. Result Comment: [place] om Glucose Reference Range is dependent on time and content of last meal. Glucose of more than 200 mg/dL in a nonstressed, ambulatory subject supports the diagnosis of Diabetes Mellitus. ADA recommended reference range Performed By: #### B ILTD, LIPID, LIPASE, CBC, PT, CMP, DELMI #### [facility] [address] [place] [id number] [facility] INR in Platelet poor plasma by Coagulation assayOrdered By: Kimberly Sanchez on 10-06-2024 INR Coag (PPP) [Relative time] 1.1 {INR} Normal [facility] Comment on above: INR Therapeutic Rang e A) Pre- and Peroperative OAT started two weeks before surgery. NOT HIP SURGERY: 1.5 - 2.5 HIP SURGERY: 2 - 3B) Primary and secondary prevention of venous THROMBOSIS: 2 - 3C) Active venous thrombosis, pulmonary embolismand prevention of recurrent venous thrombosis: 2 - 3D) Prevention of arterial thromboembolismincluding patients with mechanical heart valves: 3 - 4.5 Result Comment: INR Therapeutic Range A) Pre- and Peroperative OAT started two weeks before surgery. NOT HIP SURGERY: 1.5 - 2.5 HIP SURGERY: 2 - 3 B) Primary and secondary prevention of venous THROMBOSIS: 2 - 3 C) Active venous thrombosis, pulmonary embolism and prevention of recurrent venous thrombosis: 2 - 3 D) Prevention of arterial thromboembolism including patients with mechanical heart valves: 3 - 4.5 PERFORMED BY: [place] [address] PATHOLOGIST APPLICATION INFRASTRUCTURE ENGINEER SHERMAN AUGUSTIN M.D. Performed By: #### B ILTD, LIPID, LIPASE, CBC, PT, CMP, DELMI #### [facility] [address] [place] [id number] [facility] 10-06-2024 L ------- Specimen: [id number] Received: 10/08/24 Status: JEB Bess Num: [id number] Spec Type: Surgical Subm Dr: Shahriar Warren DO Tissues: A Gallbladder (GALLBLADDER) Procedures: Nino QUINTANA/Halima L3 Age/ Patient Sex Location Account Attending Physician Radha Barraza 79/F 4N [id number] Chema Gupta DO SPEC NUM: [id number] RECD: 10/08/24 STATUS: JEB BESS NUM: [id number] TAMMY: 10/06/[address] [facility] DR: Shahriar Warren DO ENTERED: 10/08/24 LIZ SEAY: SULY TYPE: Surgical DEPT: S ENTERED BY: [id number] RECV BY: [id number] ORDERED: HE, Gross/Micro L3 ORDERED: HE, Gross/Micro L3 Pathological Diagnosis Gallbladder, cholecystectomy: - Acute gangrenous cholecystitis. Clinical Information Acute cholecystitis Gross Description Received in formalin labeled with the patients name, date of , and gallbladder is a disrupted gallbladder, 8.5 x 3.7 x 2.4 cm, with a 0.3 cm cystic duct closed by a metallic clip. A periductal lymph node is not identified. The serosa is varela-blue, smooth and glistening with a 3 cm in greatest dimension transmural defect noted at the fundus; the hepatic bed is rough and irregular. The gallbladder is opened to reveal avery-pink and trabecular mucosa. The wall of the gallbladder ranges from 0.1 to 0.3 cm in thickness with overlying adipose tissue, up to 0.8 cm in thickness. The contents of the specimen jar are filtered and no calculi are identified. Web Machine Tender sections are submitted in a single cassette. (1, , [id number] A) Microscopic Description Microscopic examination is performed Specimen: [id number] Received: 10/08/24 Status: JEB Francine Num: [id number] Spec Type: Surgical Subm Dr: Shahriar Warren DO Tissues: A Gallbladder (GALLBLADDER) Procedures: HE, Gross/Micro L3 Patient: Radha Barraza [id number] (Continued) Specimen: [id number] Received: 10/08/24 (Continued) Signed (signature on file) Leon Kemp MD 10/09/24 1317 Specimen: [id number] Received: 10/08/24 Status: JEB Bess Num: [id number] Spec Type: Surgical Subm Dr: Shahriar Warren DO Tissues: A Gallbladder (GALLBLADDER) Procedures: Nino QUINTANA/Halima L3 Patient: Radha Barraza [id number] (Continued) Specimen: [id number] Received: 10/08/24 (Continued) CPT Codes 59431 Specimen: Received: 10/08/24 Status: JEB Francine Num: [id number] Spec Type: Surgical Subm Dr: Shahriar Warren DO Tissues: A Gallbladder (GALLBLADDER) Procedures: Nino QUINTANA/Halima L3 Patient: Radha Barraza [id number] (Continued) Signed (signature on file) Leon Kemp MD 10/09/24 1317 Normal [facility] Lipase [Enzymatic activity/v olume] in Serum or PlasmaOrdered By: Shahriar Warren on 10-06-2024 Lipase [Catalytic activity/Vol] 13.0 U/L Normal 11.0-82.0 [facility] Comment on above: Performed By: #### B ILTD, CREAT, CBC, BUN #### [facility] [address] Lipid Panelon 10-06-2024 LDL Cholesterol,Calculated 59 mg/dL Normal 0-100 [facility] Comment on above: Result Comment: LDL ATP III CLASSIFICATION LDL less than 100 mg/dL Optimal LDL 100-129 mg/dL Near or above optimal LDL 130-159 mg/dL Borderline high LDL 160-189 mg/dL High LDL greater than 189 mg/dL Very high Performed By: #### B ILTD, LIPID, LIPASE, CBC, PT, CMP, DELMI #### [address] Performed By: #### B ILTD, CREAT, CBC, BUN #### [address] Triglyceride w/Reflex 74 mg/dL Normal 0-149 [facility] Comment on above: Result Comment: TRIG ATP III CLASSIFICATION TRIG less than 150 mg/dL Normal TRIG 150-199 mg/dL Borderline high TRIG 200-500 mg/dL High TRIG greater than 500 mg/dL Very high Standard traceable to the Center for Disease Conrtrol and Prevention (CDC) test method. Performed By: #### B ILTD, LIPID, LIPASE, CBC, PT, CMP, DELMI #### [address] Performed By: #### B ILTD, CREAT, CBC, BUN #### [address] VLDL CHOLESTEROL 14 mg/dL Normal [facility] Comment on above: Performed By: #### B ILTD, LIPID, LIPASE, CBC, PT, CMP, DELMI #### [facility] [address] Performed By: #### B ILTD, CREAT, CBC, BUN #### [facility] [address] Potassium [Moles/volume] in Serum or PlasmaOrdered By: Obaydah Daromar on 10-06-2024 Potassium [Moles/Vol] 3.8 mmol/L Normal 3.5-5.1 [facility] Comment on above: Performed By: #### B ILTD, LIPID, LIPASE, CBC, PT, CMP, DELMI #### [address] Protein [Mass/volume] in Ser um or PlasmaOrdered By: Obaydah Daromar on 10-06-2024 Protein [Mass/Vol] 5.7 g/dL Low 6.4-8.9 [facility] Comment on above: Performed By: #### B ILTD, LIPID, LIPASE, CBC, PT, CMP, DELMI #### [address] Prothrombin time (PT)Ordered By: Obtonedarosalind Daromar on 10-06-2024 PT Coag (PPP) [Time] 12.0 s Normal 9.0-12.9 [facility] Comment on above: A hematocrit value g reater than 55% may lead to inaccurate results in coagulation testing. Patients having hematocrit values >55% require a special collection tube for coagulation studies. Please contact the laboratory at [phone] for redraw instructions. Result Comment: A he matocrit value greater than 55% may lead to inaccurate results in coagulation testing. Patients having hematocrit values >55% require a special collection tube for coagulation studies. Please contact the laboratory at [phone] for redraw instructions. Performed By: #### B ILTD, LIPID, LIPASE, CBC, PT, CMP, DELMI #### [address] Serum globulin measurement b y calculation (mass/volume)Ordered By: Obtonedah Daromar on 10-06-2024 Globulin (S) [Mass/Vol] 2.4 g/dL Normal [facility] Comment on above: Performed By: #### B ILTD, LIPID, LIPASE, CBC, PT, CMP, DELMI #### [facility] [address] [place] [address] Serum or plasma albumin/glob ulin mass ratioOrdered By: Obaydah Daromar on 10-06-2024 Albumin/Globulin [Mass ratio] 1.4 {ratio} Normal [facility] Comment on above: Performed By: #### B ILTD, LIPID, LIPASE, CBC, PT, CMP, DELMI #### [address] Serum or plasma anion gap de terminationOrdered By: Obtonedah Daromar on 10-06-2024 Anion gap [Moles/Vol] 10.7 mmol/L Normal 6.0-15.0 [facility] Comment on above: Performed By: #### B ILTD, LIPID, LIPASE, CBC, PT, CMP, DELMI #### [address] Serum or plasma total choles terol/high density lipoprotein (HDL) cholesterol mass ratOrdered By: Obtonedah Daromar on 10-06-2024 Cholesterol.total/Chol esterol in HDL [Mass ratio] 2.0 {ratio} Normal <5.0 [facility] Comment on above: Result Comment: PERF ORMED BY: [place] [address] PATHOLOGIST APPLICATION INFRASTRUCTURE ENGINEER SHERMAN AUGUSTIN M.D. Performed By: #### B ILTD, LIPID, LIPASE, CBC, PT, CMP, DELMI #### [address] Performed By: #### B ILTD, CREAT, CBC, BUN #### [address] Sodium [Moles/volume] in Ser um or PlasmaOrdered By: Kimberly Sanchez on 10-06-2024 Sodium [Moles/Vol] 133 mmol/L Low 136-145 [facility] Comment on above: Performed By: #### B ILTD, LIPID, LIPASE, CBC, PT, CMP, DELMI #### [facility] [address] Triglyceride [Mass/volume] i n Serum or PlasmaOrdered By: Kimberly Koehleromar on 10-06-2024 Triglyceride [Mass/Vol] 74 mg/dL 0-149 [facility] Comment on above: TRIG ATP III CLASSIF ICATIONTRIG less than 150 mg/dL NormalTRIG 150-199 mg/dL Borderline highTRIG 200-500 mg/dL High TRIG greater than 500 mg/dL Very highStandard traceable to the Center for Disease Conrtrol and Prevention (CDC) test method. MR Thoracic spine WO contras ton 06-06-2024 [place] [address] Magnetic Resonance Report Signed Patient: RADHA BARRAZA MR#: [id number] : 1945 Acct:[id number] Age/Sex: 79 / F ADM Date: 06/06/24 Loc: MRI Attending Dr: Rinku Lopez NP Ordering Physician: Rinku Lopez NP Date of Service: 06/06/24 Procedure(s): MR thoracic spine wo con Accession Number(s): [id number] cc: Rinku Lopez NP; SHARI MCKEON [place] [id number] Patient Name: RADHA BARRAZA MRN: [id number] date: 1945 Sex: F Assigned Patient Location: MRI Current Patient Location: MRI Accession/Order Number: [id number] Exam Date: 06/06/2024 14:56 Report Date: 06/06/2024 [...] Gomez Jr., D.O.06/06/2024 2:58 PM Dictation Location: [place] [address] Electronically authenticated by: [id number] Y Date: 06/06/2024 14:58 Dictated By: Alejandro Gomez M.D. Signed By: 06/06/24 1501 DD/ 1458 TD/TT: Variety Performer: [facility] Radiology, Radiologi MD shamir - 06/06/2024 [place] [address] Magnetic Resonance Report Signed Patient: RADHA BARRAZA MR#: [id number] : 1945 Acct:[id number] Age/Sex: 79 / F ADM Date: 06/06/24 Loc: MRI Attending Dr: Rinku Lopez NP Ordering Physician: Rinku Lopez NP Date of Service: 06/06/24 Procedure(s): MR thoracic spine wo con Accession Number(s): [id number] cc: Rinku Lopez NP; SHARI MCKEON [place] [address] Patient Name: RADHA BARRAZA MRN: [facility]:[id number] date: 1945 Sex: F Assigned Patient Location: MRI Current Patient Location: MRI Accession/Order Number: [id number] Exam Date: 06/06/2024 14:56 Report Date: 06/06/2024 [...] Gomez Jr., D.O.06/06/2024 2:58 PM Dictation Location: [place] [address] Electronically authenticated by: [id number] Y Date: 06/06/2024 14:58 Dictated By: Alejandro Gomez M.D. Signed By: 06/06/24 150 DD/ 1458 TD/TT: Variety Performer: [facility] Radiology Study observation (narrative) [facility] [employer] MR Thoracic spine WO contras tOrdered By: Radiologist Radiology on 06-06-2024 [facility] [employer] Work Phone: BI MAMMOGRAM SCREENING TOMOS YNTHESIS [...] Not Available Consent Formson 07-27-2022 Consent Forms [id number] Discharge Instructionson Discharge Instructions [id number] MAGR Intraoperative Recordon 07-27-2022 MAGR Intraoperative Record MAGR Intra-Op Record Summary Primary Physician: Ede Ramos DO Finalized Date/Time: 07/27/22 09:45:04 Pt. Name: LIV BARRAZAJANELLE FlahertyO.B./Sex: 1945 FEMALE Med Rec #: [id number] Physician: Ede Ramos DO Financial #: [id number] Pt. Type: D Room/Bed: / Admit/Disch: 07/26/22 [...] Role Performed Surgeon - Primary Anesthesiologist of Director Internal Communications Record Time In 07/26/22 07:39:00 07/26/22 07:39:00 07/26/22 07:39:00 Time Out 07/26/22 09:49:00 07/26/22 09:49:00 07/26/22 09:49:00 Procedure Arthroplasty Shoulder Arthroplasty Shoulder Arthroplasty Shoulder Total Reverse(Left) Total Reverse(Left) Total Reverse(Left) Last Modified By: Mode GOLDMAN, Jania Coello RN, Jania Conde RN 05/15/23 09:49:54 07/26/22 09:49:54 07/26/22 09:49:54 Entry 4 Entry 5 Entry 6 Case Attendee Fahad KWOK, Lisa Martinez CST, CST, CST/ZOE ENRIQUEZ CST Role Performed Scrub Personnel Scrub Personnel Vba Developer Time In 07/26/22 07:39:00 07/26/22 07:39:00 07/26/22 07:39:00 Time Out 07/26/22 09:49:00 07/26/22 09:49:00 07/26/22 09:49:00 Procedure Arthroplasty Shoulder Arthroplasty Shoulder Arthroplasty Shoulder Total Reverse(Left) Total Reverse(Left) Total Reverse(Left) Last Modified By: Mode GOLDMAN, Jania Coello RN, Jania Conde RN 07/26/22 09:49:54 07/26/22 09:49:54 07/26/22 09:49:54 General Comments: Nicholas Gan - [place] rep Surgical Procedures MAGR Pre-Care Text: A.20 [...] to chemical sources (more content not included)... [facility] Outside Recordson 07-27-2022 Outside Records [id number] [facility] Provider Orderson 07-27-2022 Provider Orders [id number] [facility] Telemetry Stripson Telemetry Strips [id number] [facility] Anesthesia Noteon 07-26-2022 Anesthesia Note Patient: RADHA BARRAZA Age: 77 years Sex: FEMALE : [...] 07/26/2022 11:51 EDT] Remy Da Silva MD [facility] Anesthesia Note Patient: RADHA BARRAZA Age: 77 years Sex: FEMALE : [...] 325 mg = 1 tab(s), PO, Daily hydrochlorothiazide-losarta n 12.5 mg-100 mg oral tablet 1 tab(s), [...] obstructive pulmonary disease (COPD) / SNOMED CT 09396544 / Confirmed Heart murmur / SNOMED CT 360372059 / Confirmed Hyperlipidemia / SNOMED CT 50962787 / Confirmed HTN (hypertension) / SNOMED CT 1051455475 / Confirmed Histories Family History: COPD Mother Father Procedure history: Arthroplasty of left knee (6892648948). Arthroplasty of right knee (9496253676). Carpal tunnel release (510891562). Comments: 06/29/2022 13:15 EDT - Dorota Myers RN bilat Colonoscopy (652697973). EGD - Esophagogastroduodenoscopy (6562093983). Disorder of rotator cuff (6201786051). Comments: 06/29/2022 13:14 AKBAR - Dorota Myers RN left Social History [...] Oriented. Review / Management Laboratory Results Plan Citizen Of [place] Society of Anesthesiologists#(ASA) physical status classification: Class [...] 07/26/2022 08:23 EDT] Remy Da Silva MD [facility] Inpatient Patient Summaryon 07-26-2022 [place] [address] Patient Discharge Instructions Name: RADHA BARRAZA : 1945 Patient Address: [address] [place] [address] Primary Care Provider: Name: SHARI MCKEON After you are discharged if you find you have any questions, please, call [phone] ext [phone] to speak to a nurse. Discharge Diagnosis: [...] alcohol and/or drug addiction problems; contact the [facility] 04/10 Crisis Hotline -Text 4HOPE to 223909. If you received any narcotics, sedation, or [...] business decisions or sign any legal documents [facility] would like to thank you for allowing us to assist you with your healthcare needs. The following includes patient education materials and information regarding your injury/illness. RADHA BARRAZA BRAD has been given the following list of follow-up instructions, prescriptions, and patient education materials: Follow-up Instructions With: Address: When: Ede Ramos [address] [place] [address], [address] [place] [address] Business (1) 08/03/2022 11:00 AM Medications During [...] 1 puff(s) Inhalation 2 times a day. hydrochlorothiazide-losarta n (hydrochlorothiazide-losart an 12.5 mg-100 mg oral tablet) 1 tab(s) [...] 1 puff(s) Inhalation 2 times a day. hydrochlorothiazide-losarta n (hydrochlorothiazide-losart an 12.5 mg-100 mg oral tablet) 1 tab(s) [...] fingers frequently (more content not included)... Normal [facility] MAGR Intraoperative Recordon 07-26-2022 [facility] Intraoperative Record MAGR Intra-Op Record Summary Primary Physician: Finalized Date/Time: 07/26/22 07:42:32 Pt. Name: RADHA BARRAZA/Sex: 1945 FEMALE Med Rec #: [id number] Physician: Ede Ramos DO Financial #: [id number] Pt. Type: D Room/Bed: / Admit/Disch: 07/26/22 [...] Warga, Laura RN Role Performed Anesthesiologist of Director Internal Communications Director Internal Communications Record Time In 07/26/22 07:13:00 07/26/22 07:13:00 07/26/22 07:13:00 Time Out 07/26/22 07:38:00 07/26/22 07:38:00 07/26/22 07:38:00 Procedure Interscalene Block(Left) Interscalene Block(Left) Interscalene Block(Left) Last Modified By: Kimberley Le RN, Margaret RN Klaehn, Margaret RN 07/26/22 07:39:31 07/26/22 07:39:31 07/26/22 07:39:31 Entry 4 Case Attendee Amy Bates RN Role Performed Director Internal Communications Time In 07/26/22 07:13:00 Time Out 07/26/22 [...] Stretcher Post-op Destinat (more content not included)... [facility] MAGR PACU Recordon 3 MAGR PACU Record MAGR PACU Record [facility] Primary Physician: Ede Ramos DO Finalized Date/Time: 07/26/22 10:38:28 Pt. Name: RADHA BARRAZA/Sex: 1945 FEMALE Med Rec #: [id number] Physician: Ede Ramos DO Financial #: [id number] Pt. Type: D Room/Bed: / Admit/Disch: 07/26/22 05:52:10 - Institution: PACU Case Times MAGR Entry 1 In PACU I 07/26/22 09:51:00 Discharge from PACU 07/26/22 10:35:00 I Last Modified By: Warner Bolton RN 07/26/22 10:38:23 Finalized By: Warner Bolton RN Document Signatures Signed By: Warner Bolton RN 07/26/22 10:38 [facility] MAGR Postoperative Recordon 07-26-2022 MAGR Postoperative Record MAGR Phase II Record Summary Primary Physician: Ede Ramos DO Finalized Date/Time: 07/26/22 12:01:17 Pt. Name: RADHA BARRAZA/Sex: 1945 FEMALE Med Rec #: [id number] Physician: Ede Ramos DO Financial #: [id number] Pt. Type: D Room/Bed: / Admit/Disch: 07/26/22 [...] Signed By: Annamarie Samuels RN 07/26/22 12:01 [facility] Preoperative Recordon 0 07-26-2022 [facility] Preoperative Record [facility] Pre-Op Record Summary Primary Physician: Ede Ramos DO Finalized Date/Time: 07/26/22 07:44:03 Pt. Name: RADHA BARRAZA BRAD Duque./Sex: 1945 FEMALE Med Rec #: [id number] Physician: Ede Ramos DO Financial #: [id number] Pt. Type: D Room/Bed: / Admit/Disch: 07/26/22 [...] By: Kimberley Le RN 07/26/22 07:44 Normal [facility] Operative Report - Surgeon/P [email or web address] 07-26-2022 Operative [...] Estimated blood loss: 50 Complications: None Findings: Ozfb-yf-ybss in the glenohumeral joint Procedure summary: Patient [...] on: 07/26/2022 09:35 EDT] Ede Ramos DO [facility] Patient Handouton 07-26-[address] MESSINA [...] or concerns, please call the office at [phone] 7. Follow up as scheduled [facility] XR Shoulder 1 View Lefton XR Shoulder [...] MD 07/27/22 4:01 pm Technologist: JORDON RUVALCABA [facility] Comment on above: Order Comment: chey lt status post shoulder replacement Progress Note - Nurseon 07-12 Progress Note - Nurse Pre-op call made t o pt. Pt states understanding of arrival time of 0600 on 07/26/22 and NPO after MN. [Electronically Signed on: 07/23/2022 09:27 EDT] Shantel Gonsalez RN [Verified on: 07/23/2022 09:27 EDT] Shantel Gonsalez RN [facility] Coding Summaryon 07-02-2022 Coding Summary HTMLBase 64 KvcovoiqVYt0zOi+PGhlYWQ+PE1 IHYKlA38qwYVtyB3PJ3qYRT1CHU ISAYQNWA7PQL9fsDL2YVnjH8Cps iAv MjaoqDWaPW87BEx1FHT8xPrmYRv lcD6tfNBaO4c2QwIdDM15vI63YH rbXAWzYoJ3UpVwzyefhYNp M3yqCmVenZFzKvr+PHRhYmxlIHd zOOBwKXepKQSkKjOojXfjVL1rUh 9yZGVyLWNvbGxhcHNlOiBj p8iiJIYiKOvoKY0zmYxrX3WhmCT 3DXRzn0q6Pq05oLP+EKBsJJO4kH hfGKekj037LyGwt8beRRS3 aZCdSMzeEUY4D66hd8Y3XIChWAS kHWQ1pQM1pO8lvHhggrxvB5EgeE SjUwQ5RXK9lWEldL7qcOra mvxskS4aKck+A06MOH1TNBHQDL0 WEdd1K1YsItxcqZC+RA13FBPoYU 52fEOhoOQbn0xxkCq8UjUz AYHsDAO9pXqgHUrof2HiLVBhY03 fxNGai1M9NGMcqXtmuEDlDzWygA O6rW9bWUoheditn4ozactj Coszi5ujch68iT78V52iIXbcNND qTBX8XENhCGEzzVwowc3moS5dAz 8+RGjgc8zod4lmqFa0CyIu POZzvnCxyHtzWUM9i3IkEa65T7M lgTndi4RoClf1yx22sYIwv2I8lY Z5QPwyQPYdqZ0fOZbeMdA1 LJAjEjIaaE68kSNgZHsqPx2sfTk qbJjrAS8bUKMxauwtOPUeoT9vIN FquKFrhRxjDV2fCTKhjwey l765NuTwJEY0HPBfqVBaS9FisK6 sEhWbCZJaIWTcP9KtnFIsENumM7 31JYhmYiD1BAEqpgTxF3Qm HGRuyXeoWhO2a6Y6Ld6Zc2Pskjx aDBI7XWwdPKA2FhBmRsQwTnM1T4 MmTxf0PQLlkLtdXK8lP9Xs TLGcnqwaubfreUN9FSAcEYXpzK7 4pNCdMXkhYc8zd1S2w433XTJzQM CnzM57Of5sqXmyWMVfvKTO wP2jynann7zsucqgOqXrKKSfUYa 0BVq4WAVxcYcpRwYiSEE2FuQ8OU E6mJSazC7mxHddedjleD8t Oyc+E95deY7wVCY3WXN4btypWOT yruGxSU30KC48E9NcNhegeFKaqS U+JVHfhlDkqKhkNM1dNiQu o7wga9YeNQauD1JmKIBrZRdwDat 0HMWeNBD6kWW9vM1pFOKlHMgun7 Y4dPH8O0DeadYbvj0ji9da NZDvCXytT19cxLYza3I5YQRpdSG 5TVEzwTuhAuDseJ22Mpl+PGNvbG ppq7DgDsgrx1wjw8vbvBv7 LpUfZJQjmlGrsQfjZCG3r7FjWy7 1Z97gCJpeFETvVHYnXVOhZJFvvU omrp0ypW7oYw1+PGNvbCB3 nQA4nC2sVXUuYqW9EJhlO736BsG reOFiDspwr6rwr4rppSu3ZiDiJO ZeqeWgkRrdABF6w1RxRe41 L63uFXdoGJQlIONgJSCqCSYlbGs oev4heD7vLf0+WU6ta6wvrx81aZ 48dHI+DHWwJST2lCvgPCge RRGnsF4hCEvfMyQ5OXYxPvQojI2 1eROpARznNr2uaAgkqKjkPY9rOJ Zfluxty883JnGhy7rjWMKq aEAxXFppVIM4Z06he3E1PTQzWCM yRIZ0mHA7dT3uoDezkdozdKAzxI sfxvXxiSipEJyfZKvhB061 IHRvcDsnPlBhdGllbnQgTmFtZTo 6U5TkRee6BIUvvYsvZZ6fhYQrJM vwVk9kwCchsKxnSG3aNIBe hxylw099YzIli5vyNNJlnOTnCJh jMDW9X23dh0A8QOFiUQAqTOK0fV I4tO0mkSfswfwpnLUviQnu twRrwUwgVEioZBxeL493KRNovVw wBwImjxImTDHtkWC2DE13PJ87qN Yxg5Y2hIB1N1LlWOLjngkx ypbexMJ0MLQyEIKzaM24Tm5reEt lSl0xNXWiWVZ9SUHjaHYvX7DuoB 4hAaMvIJYfHQFjC9LctOMt JPjtQ944LEgkKnW3QMOezqGwP5Q dPBBklTbjEmR0s6X3Kf3JD8U7ZQ 83SG57yINif3Z6vXS3L4Bi JSZslycarxnilIE5QGLsZWApxZ6 3Tb7wfVgkZw6nSPZzZZE7TRWugY TvS4UlqG8vXwLvQTAdTYQy I9VlbHYyFOmjL597MStbKpK9TQN gthRnV7CjUBTlcEcfXxI1k0P7Sw 7CDQj3SF40OQ68gEVze5H8 dON0O6CcPSJmaqzxnpqtaPS8WEA tGWJrzM17Dc4iyNvvAg7vQSPpAX I3MEAjkYQlF4RznS4yBtSj SQElKIKzM3MhsVDjYIxyI595BBm dAkE0APNqbfFuK9EuOPQblCyzGa B6o6A2Ft5CAYAiIC19AZJ9 mXT7QI04TJ98T4AxUsunrUGiiRK +PHRhYmxlIHdpZHRoPScxMDAlJy UcnOoxRL2iSj2oIDQfMAId iGazzSBqCaShf7qmXPJsNKkbGD2 azYjnD5OojBA3NTQmz8j5Kg18J5 4yI4SeyKV+TWYhoFN4kAF4 xL3qZmNqRjE3BWfkM586LsYghYA mKhxrb9izd2pkzDa2JeX5DBNpfu NhiLoyDWU9p4AtHt14R83s IHdpZHRoPSIxNSUiIHZhbGlnbj0 khW3qVm2+CSZmpSF8aQP6kL3qHn DlKdF0IBynA227OnHxgBMp Sqwbx4wtw4yglRy1OdDhZPQborB cgCztIWQ9a9CoFz49W7KvgNpwz7 TcKtk3hg06wNYlx2E7cGA6 E4DfIDEdfwgooNZssQkuGF1cMQC ratlaQKZtgV8wUYAcW6h0YvDvNk V0VNvmI6XjalW1CUMgcSBl KSnfFOX7V89ce1R2SOKqAJMlCMN 4rOQ2wR6uhJlbclzcgXFbuShelr BitMdjOAdhUTrkW708SKHd cIhlYKXwfG9iCLNrqZRdkZbdBB3 wNTBpbjsnPldPVFQsIEpJTEwgRU 6FBVv4F5UjKoo2VJAwfHsk WN8whBUkHFgcNn2buOcpdFclSS3 xLZCgshoeYKYokJ0vVEGxfABvlE zkZL2oFFQooduob452JaQw OON2MGLjbBQcC4WicJ9dZlNjDKA xPAXpJ7JbhLLxLRjgX495WToxDx R2YGWjbvKeL0JvMGHglOxv JvJ4a1J2Mv4hXw0cFv6zNQS0FN4 6SK84pWVuh4W9rXB7E8EeADTfnc abyzvalXZ2ENDdBGVrtR15 qAZsIYowYh5te6K0w286WPSbQRJ gmO53Zz7swWbhHLMcuZDVkK6epn krv3xyhesxRoOoDSExNOn7 CAc8YGHarFluBbWeOCA0GgG3VWN 9pBUfyE1jvAoncbnwiP1yIvt+Nz cvUUXqkmQ1P3AiBgt1YCCo sSysKE7nmNFvUHbqQr7xpFihkFh hMK0vZSPznvslXMHnnQ5xEUGtzT DsfYbeGI8pYVHztrltr363 GlPwUHS8YZIceJLmF0DiiP8gRfE bRYFpGPOjX9TgfUTiYItqS783WJ bqGoR3GOEhcuAoK8UaXPTa qWhzBkO1l4R1Ev0IVZ5YJQK9C1B wKgo6LANbwEflOQ5piGXbOVmuQq 0sjFrzzBzyRX9tCHStebqs UUSytU6eWIOyoWGrhUzkWJ0rRZL hqauvx594HpXhRUC3ENVbsYNwU2 EvuJ6bQoVlWOOzROJfO2Im wRXmSEqxG739WTwaAhU9QYStsqE bM4QzYGSgeEicKmL3x9O4Rk9FKW wvdGQ+ER92fy47O5LdPzey Cxr9VZMmZEV5aNQ1mH4bIXQzUAs oc3C6dVW1E7OevuNwft2eo0faTT GsSGyqT58ebOPpr9C7ATIi eNK2FZAkhWuuYjRtiL20Lvp+PGN wtCjzl0SaDhrqd0wje1kxvHs2Gq XzSJQxvlEmuOyzOUP6n0Bm Nz21K84tUXtrWENpXYFkTKMrTKI arVacfc0bkK8fPb1+MCRtwMO9yQ P1kA7qXyKhCdP3VUcgY886 QzEawJImTxtlv3wbd6ujaLk7KbF xTEPnqgKxjIubQCN4l3EhKd04Z5 LvfUlqj7PnHhm8lb37cHAj y8I6wEB4N2JzTXYlznrofRCwfHw vUO5kCHAwkcakLBDglR1eRSBlI5 j0BwEaIwI3AKmsY8AkxjZ0 IPMqmSUjHWWkmTVSyF1mwboem9c wwcjrTzXqRTFzKZs9ZHf2SZKnhM mnKiRpNUD5VlC1MMX4vNTb pX4erGdlfilewZ2lNpq+MCm5p4h ljGIhCS4ulPF7ZD52YC69yUQex0 R6wEW3Q0AcNNKpzpldstwv sBW2KPAiAJPkyN17Xj2gyEbcJa1 sHLCyZHM0JRKopRFfG1CxzL3iGz KcYHCuMNZkK2CclIPjYDel V911XBwrPyU8AAZermKnY6AfIRE pkGwyFnZ8r7X4Da5ONX81HI73HZ 03wNBjx2X7bEY6K5VpNNMp viylrftojIG6IBCtAIFmqT43Gi3 jsXebWg5hWTNbBJQ6PZFhxQYsR8 AhoN6iOgTuJULpIGUmX6Vj jVXcKBtaO203ZCkqMdO6JZOmsrU uO3YhZWArnAqtQlS3b1Q0Ay2OLp 65IW48TQ13iZQfo9J3uYA6 D9XnIOWlgnfthajbhPH4BFBmIEQ myW05Tw4afGsrLf4qVVMmNZZ8LP GmyLCzC5GuyO2oYjNpRRZv UUYfU0GfrDXsBIlxS163PUioFiY 2TLBtajBnN1DaAZRxyPrpGrK4h9 Y4Jj0KSGvgosp3L0WdNjtx dHI+AE06GOLoPS76lYAkcAIxp6y cqPf1RwHpFIVoRQP9eLckGNdih1 TsLMSeT42bdAYob2L3IIAw bGx (more content not included)... [facility] C MRSA Screenon 06-30-2022 C MRSA Screen Negative [facility] Comment on above: Performed By: #### 1 [id number] ####[facility] (DEFAULT)[address] [place] [address] 71269 Progress Note - Nurseon 06-12 Progress Note - Nurse Dr. Castro reviewed PAT notes for upcoming surgery 07/26/2022. No new orders at this time [Electronically Signed on: 06/30/2022 11:45 EDT] Annamarie Samuels RN [Verified on: 06/30/2022 11:45 EDT] Annamarie Samuels RN [facility] Provider Orderson 06-30-2022 Provider Orders [id number] [facility] .Auto Diff 1on 06-29-2022 Auto [place] % 10 % Normal 12 [facility] Comment on above: Performed By: #### 7 [id number], [id number], [id number] ####[facility] (DEFAULT)[address] [place] [address] 85049 Baso Abs# 0.0 x10 Normal 0.0-0.2 [facility] Comment on above: Performed By: #### 7 [id number], [id number], [id number] ####[facility] (DEFAULT)[address] [place] [address] 37097 Basophils/100 WBC (Bld) 0.7 % Normal 0.2-2.0 [facility] Comment on above: Performed By: #### 7 643184, [id number], [id number] ####[facility] (DEFAULT)[address] [place] [address] 99286 Eos Abs# 0.6 x10 High 0.0-0.4 [facility] Comment on above: Performed By: #### 7 772184, [id number], [id number] ####[facility] (DEFAULT)[address] [place] [address] 31643 Eosinophils/100 WBC (Bld) 8.5 % High 0.9-4.0 [facility] Comment on above: Performed By: #### 7 708603, [id number], [id number] ####[facility] (DEFAULT)[address] [place] [address] Lymph Abs# 1.6 x10 Normal 1.3-2.9 [facility] Comment on above: Performed By: #### 7 156509, [id number], [id number] ####[facility] (DEFAULT)[address] [place] [address] 45739 Lymphocytes/100 WBC (Bld) 24 % Normal 14-48 [facility] Comment on above: Performed By: #### 7 971848, [id number], [id number] ####[facility] (DEFAULT)[address] [place] [address] [place] Abs# 0.7 x10 Normal 0.0-0.8 [facility] Comment on above: Performed By: #### 7 783498, [id number], [id number] ####[facility] (DEFAULT)[address] [place] [address] 27558 Neut Abs# 3.8 x10 Normal 1.5-9.2 [facility] Comment on above: Performed By: #### 7 800862, [id number], [id number] ####[facility] (DEFAULT)[address] [place] [address] Neutrophils/100 WBC (Bld) 57 % Normal 44-88 [facility] Comment on above: Performed By: #### 7 808138, [id number], [id number] ####[facility] (DEFAULT)[address] [place] [address] BMP Standardon 04-18-2023 eGFR Non AA 33 mL/min/1.73m2 Invalid Interpretation Code [facility] Comment on above: Performed By: #### 7 722480, [id number], [id number] ####[facility] (DEFAULT)[address] [place] [address] 31161 eGFR AA 40 mL/min/1.73m2 Invalid Interpretation Code [facility] Comment on above: Performed By: #### 7 784865, [id number], [id number] ####[facility] (DEFAULT)[address] [place] [address] 05129 Anion gap [Moles/Vol] 8.9 mmol/L Normal 5.0-19.0 [facility] Comment on above: Performed By: #### 7 651436, [id number], [id number] ####[facility] (DEFAULT)[address] [place] [address] 96007 Calcium [Mass/Vol] 9.3 mg/dL Normal 8.9-10.3 [facility] Comment on above: Performed By: #### 7 333243, [id number], [id number] ####[facility] (DEFAULT)[address] [place] [address] 58073 Chloride [Moles/Vol] 102 mmol/L Normal 101-111 [facility] Comment on above: Performed By: #### 7 986999, [id number], [id number] ####[facility] (DEFAULT)[address] [place] [address] 95958 CO2 [Moles/Vol] 28 mmol/L Normal 21-32 [facility] Comment on above: Performed By: #### 7 962962, 96540863, [id number] ####[facility] (DEFAULT)[address] [place] [address] 75048 Creatinine [Mass/Vol] 1.53 mg/dL High 0.60-1.30 [facility] Comment on above: Performed By: #### 7 967716, 08870919, [id number] ####[facility] (DEFAULT)[address] [place] [address] 14870 Glucose [Mass/Vol] 107.0 mg/dL Normal 74.0-118.0 [facility] Comment on above: Performed By: #### 7 013224, 86790585, [id number] ####[facility] (DEFAULT)[address] [place] [address] 61760 Osmolality 279 mOsm/L Invalid Interpretation Code [facility] Comment on above: Performed By: #### 7 671802, [id number], [id number] ####[facility] (DEFAULT)[address] [place] [address] 07737 Potassium [Moles/Vol] 3.9 mmol/L Normal 3.6-5.1 [facility] Comment on above: Performed By: #### 7 477778, [id number], [id number] ####[facility] (DEFAULT)[address] [place] [address] 15134 Sodium [Moles/Vol] 135.0 mmol/L Low 136.0-144 . 0 [facility] Comment on above: Performed By: #### 7 996301, [id number], [id number] ####[facility] (DEFAULT)[address] [place] [address] 02077 Urea nitrogen [Mass/Vol] 36 mg/dL High 8-26 [facility] Comment on above: Performed By: #### 7 481053, [id number], [id number] ####[facility] (DEFAULT)[address] [place] [address] 87308 Urea nitrogen/Creatinine [Mass ratio] 23.5 mg/mg High 4.6-16.2 [facility] Comment on above: Performed By: #### 7 497570, 22903960, [id number] ####[facility] (DEFAULT)[address] [place] [address] 41832 CBC w/ Auto Diffon 3 Erythrocyte distribution width (RBC) [Ratio] 12.8 % Normal 11.5-15.0 [facility] Comment on above: Performed By: #### 7 365817, 40691859, [id number] ####[facility] (DEFAULT)[address] [place] [address] 56708 Hematocrit (Bld) [Volume fraction] 36.4 % Normal 33.7-40.4 [facility] Comment on above: Performed By: #### 7 786526, 96505857, [id number] ####[facility] (DEFAULT)[address] [place] [address] 00104 Hemoglobin (Bld) [Mass/Vol] 12.2 g/dL Normal 11.3-15.9 [facility] Comment on above: Performed By: #### 7 935075, 87353254, [id number] ####[facility] (DEFAULT)[address] [place] [address] 60462 Man Diff? Auto Invalid Interpretation Code [facility] Comment on above: Performed By: #### 7 348409, [id number], [id number] ####[facility] (DEFAULT)[address] [place] [address] 16378 MCH (RBC) [Entitic mass] 32 pg Normal 24-34 [facility] Comment on above: Performed By: #### 7 [id number], [id number] ####[facility] (DEFAULT)[address] [place] [address] 34027 MCHC (RBC) [Mass/Vol] 33 g/dL Normal 26-37 [facility] Comment on above: Performed By: #### 7 [id number], [id number], [id number] ####[facility] (DEFAULT)[address] [place] [address] 20595 MCV (RBC) [Entitic vol] 97 fL Normal 81-100 [facility] Comment on above: Performed By: #### 7 [id number] ####[facility] (DEFAULT)[address] [place] [address] 38715 Platelet 336 x10 Normal 138-427 [facility] Comment on above: Performed By: #### 7 [id number], [id number] ####[facility] (DEFAULT)[address] [place] [address] 06477 Platelet mean volume (Bld) [Entitic vol] 7.2 fL Normal 6.3-10.2 [facility] Comment on above: Performed By: #### 7 [id number], [id number] ####[facility] (DEFAULT)[address] [place] [address] 08800 RBC 3.77 x10 Normal 3.70-5.30 [facility] Comment on above: Performed By: #### 7 [id number], [id number] ####[facility] (DEFAULT)[address] [place] [address] 34585 WBC 6.7 x10 Normal 3.5-10.5 [facility] Comment on above: Performed By: #### 7 [id number], [id number], [id number] ####[facility] (DEFAULT)[address] [place] [address] UA w Culture if Ind Standard on 06-29-2022 [facility] Comment on above: Performed By: #### 1 [id number] #### [facility] (DEFAULT) [address] [place] [address] Color (U) Yellow [facility] Comment on above: Performed By: #### 1 [id number] #### [facility] (DEFAULT) [address] [place] [address] Culture? Not Indicated Invalid Interpretation Code [facility] Comment on above: Result Comment: Resu lt created by rule GL_MAGR_ADD_UA_CULT1 Performed By: #### 1 [id number] #### [facility] (DEFAULT) [address] [place] [address] Glucose (U) [Mass/Vol] Negative [facility] Comment on above: Performed By: #### 1 [id number] #### [facility] (DEFAULT) [address] [place] [address] Ketones Ql (U) Negative [facility] Comment on above: Performed By: #### 1 [id number] #### [facility] (DEFAULT) [address] [place] [address] Micro? Not Indicated Invalid Interpretation Code [facility] Comment on above: Result Comment: Resu lt created by rule GL_MAGR_ADD_UA_MICRO Performed By: #### 1 [id number] #### [facility] (DEFAULT) [address] [place] [address] UA Bilirubin Negative Normal [facility] Comment on above: Performed By: #### 1 [id number] #### [facility] (DEFAULT) [address] [place] [address]329 UA Blood Negative Normal NEGATIVE [facility] Comment on above: Performed By: #### 1 [id number] #### [facility] (DEFAULT) [address] [place] [address] UA Clarity CLEAR Normal CLEAR [facility] Comment on above: Performed By: #### 1 [id number] #### [facility] (DEFAULT) [address] [place] [address] UA Leuk Est Negative Normal NEGATIVE [facility] Comment on above: Performed By: #### 1 [id number] #### [facility] (DEFAULT) [address] [place] [address] UA Nitrite Negative Normal NEGATIVE [facility] Comment on above: Performed By: #### 1 [id number] #### [facility] (DEFAULT) [address] [place] [address] 52959 UA pH 6.5 Normal 5-8 [facility] Comment on above: Performed By: #### 1 [id number] #### [facility] (DEFAULT) [address] [place] [address] 00490 UA Protein Negative Normal NEGATIVE [facility] Comment on above: Performed By: #### 1 [id number] #### [facility] (DEFAULT) [address] [place] [address] 45269 UA Spec Grav 1.010 Normal 1.001-1.[address] [place] [address] Comment on above: Performed By: #### 1 [id number] #### [facility] (DEFAULT) [address] [place] [address] 13800 UA Urobilinogen 0.2 mg/dL Normal 0.2-1.0 [facility] Comment on above: Performed By: #### 1 [id number] #### [facility] (DEFAULT) [address] [place] [address] 67929 Urine Source Clean Catch Normal [facility] Comment on above: Performed By: #### 1 [id number] #### [facility] (DEFAULT) [address] [place] [address] MRI Shoulder w/o Lefton 04-15 MRI Shoulder w/o Left HISTORY: Left shou lder pain. History of prior rotator cuff surgery [...] by Adarsh Adams on 05/11/2022 1041 Normal [facility] SCREENING MAMMOGRAM W/ARABELLA, BILATERAL*on 11-20-2021 SCREENING [...] VERY IMPORTANT TO YOUR HEALTH. THE CURRENT [place] [employer] GUIDELINES RECOMMENDS ANNUAL MAMMOGRAPHY BEGINNING AT AGE 39 THIS FACILITY USES A REMINDER SYSTEM TO ENSURE ALL PATIENTS RECEIVE REMINDER NOTIFICATIONS AT THE APPROPRIATE TIME BASED ON THE RECOMMENDATIONS OF THIS EXAM. Report reported and signed by Alejandro Forte on 11/20/2021 0949 Normal [facility] Comprehensive Metabolic Pane george 06-10-2021 Albumin [Mass/Vol] 4.2 g/dL Normal 3.6-5.1 [place] rn [place] [employer] Comment on above: Performed By: #### C JARVIS DONIS #### [facility] [address] [place], [place] [id number] Albumin/Globulin [Mass ratio] 1.7 {ratio} Normal 1.0-2.5 [facility] [employer] Comment on above: Performed By: #### C JEWELS LIPTeresa #### [facility] [address] [place], [place] [id number] ALP [Catalytic activity/Vol] 82 U/L Normal 35-119 [facility] Specialist Comment on above: Performed By: #### C JEWELS LIPTeresa #### [facility] [address] [place], [place] [id number] ALT [Catalytic activity/Vol] 15 U/L Normal 6-33 [facility] Specialist Comment on above: Result Comment: 02/11 Female reference range changed. Performed By: #### C JEWELS LIPD #### [facility] [address] [place], [place] [id number] Anion gap [Moles/Vol] 15 mmol/L Normal 12-20 [facility] Comment on above: Result Comment: Effe ctive 03/19/2019 reference range changed. Performed By: #### C JEWELS LIPTeresa #### [facility] [address] [facility] [place] [id number] AST [Catalytic activity/Vol] 21 U/L Normal 9-34 [facility] [employer] Comment on above: Performed By: #### C JEWELS LIPD #### [facility] [address] [place], [place] [id number] BUN/CREA 28 Ratio High 6-22 [facility] [employer] Comment on above: Performed By: #### C JEWELS LIPD #### [facility] [address] [facility] [place] [id number] Calcium [Mass/Vol] 9.3 mg/dL Normal 8.6-10.2 [facility] [place] [employer] Comment on above: Performed By: #### C JEWELS LIPTeresa #### [facility] [address] [place], [place] [id number] Chloride [Moles/Vol] 106 mmol/L Normal 98-107 [facility] Comment on above: Performed By: #### C JEWELS LIPTeresa #### [facility] [address] [place], [place] [id number] CO2 [Moles/Vol] 24 mmol/L Normal 20-31 [facility] Comment on above: Performed By: #### C JEWELS, LIPD #### [facility] [address] [place], [place] [id number] Creatinine [Mass/Vol] 1.1 mg/dL Normal 0.6-1.4 [facility] Comment on above: Performed By: #### C JEWELS LIPTeresa #### [facility] [address] [place], [place] [id number] eGFRAA 58 mL/min/1.73m2 Low >60 [facility] Comment on above: Performed By: #### C JEWELS, LIPD #### [facility] [address] [place], [place] [id number] eGFRNAA 48 mL/min/1.73m2 Low >60 [facility] Comment on above: Performed By: #### C JEWELS LIPD #### [facility] [address] [place], [place] [id number] Globulin (S) [Mass/Vol] 2.5 g/dL Normal 1.9-3.7 [facility] Comment on above: Performed By: #### C JEEWLS, LIPD #### [facility] [address] [place], [place] [id number] Glucose [Mass/Vol] 94 mg/dL Normal 65-99 [facility] Comment on above: Result Comment: For FASTING Glucose --- ADA reference ranges: Normal 65-99 mg/dl Prediabetes 100-125 Diabetes >/= 126 Performed By: #### C JEWELS, LIPD #### [facility] [address] [place], [place] [id number] Potassium [Moles/Vol] 4.4 mmol/L Normal 3.5-5.5 [facility] Comment on above: Performed By: #### C JEWELS, LIPD #### [facility] [address] [place], [place] [id number] Protein [Mass/Vol] 6.7 g/dL Normal 6.1-8.1 [facility] [employer] Comment on above: Performed By: #### C MP, LIPD #### [facility] [address] [place], [place] [id number] Sodium [Moles/Vol] 141 mmol/L Normal 135-146 [facility] [employer] Comment on above: Performed By: #### C MP, LIPD #### [facility] [address] [place], [place] [id number] TBIL <0.3 Normal [facility] Specialist Comment on above: Performed By: #### C MP, LIPD #### [facility] [address] [place], [place] [id number] Urea nitrogen [Mass/Vol] 32 mg/dL High 7-25 [facility] Specialist Comment on above: Performed By: #### C MP, LIPD #### [facility] [address] [place], [place] [id number] Lipid Panelon 06-10-2021 Cholesterol [Mass/Vol] 237 mg/dL High 125-200 [facility] Comment on above: Result Comment: Low risk < 200mg/dL Borderline risk 201-239 mg/dl High risk > or equal to 240 Performed By: #### C MP, LIPD #### [facility] [address] [place], [place] [id number] Cholesterol in HDL [Mass/Vol] 100 mg/dL Normal >40 [facility] Specialist Comment on above: Result Comment: High Cardiovascular Risk HDL <40 mg/dL Low Cardiovascular Risk HDL > or equal to 60 mg/dl Performed By: #### C MP, LIPD #### [facility] [address] [place], [place] [id number] Cholesterol in LDL [Mass/Vol] 124 mg/dL Normal [facility] Specialist Comment on above: Result Comment: LDL ATP III CLASSIFICATION LDL less than 100 mg/dl Optimal LDL 100-129 mg/dl Near or above optimal LDL 130-159 Borderline high LDL 160-189 High LDL greater than 189 mg/dl Very High Performed By: #### C MP, LIPD #### [facility] [address] [place], [place] [id number] Cholesterol in VLDL [Mass/Vol] 13 mg/dL Normal [facility] Specialist Comment on above: Performed By: #### C JEWELS, LIPD #### [facility] [address] [place], [place] [id number] Cholesterol.total/Chol esterol in HDL [Mass ratio] 2 {ratio} Normal [facility] Comment on above: Performed By: #### C MP, LIPD #### [facility] [address] [place], [place] [id number] Triglyceride [Mass/Vol] 67 mg/dL Normal 30-150 [facility] Specialist Comment on above: Result Comment: TRIG ATPIII CLASSIFICATIONS TRIG less than 150 mg/dl Normal TRIG 150-199 mg/dl Borderline High TRIG 200-500 mg/dl High TRIG greather than 500 mg/dl Very High Performed By: #### C JEWELS, LIPD #### [facility] [address] [place], [place] [id number] ECHOCARDIO M/2D COMPLETEon 0 10-24-2020 ECHOCARDIO M/2D COMPLETE Patient: RADHA BRARAZA Exam Date: 10/24/2020 : 1945 Gender:F Ordering : DR SHARI MCKEON M.D. Admission #: [id number] Family : Order #: [id number] CLICK HERE TO VIEW EXAM ECHOCARDIOGRAM REPORT [...] Area(A4C): 13.90 cm2 Left Atrium Systolic Volume(A2C): 02866 mm3 Left Atrium Systolic Volume(A4C): 26069 mm3 Mitral Valve MV E to A Ratio: 1.10 Mitral Valve A-Wave Peak Velocity: 68.60 cm/s Mitral Valve E-Wave Peak Velocity: 74.50 cm/s Deceleration Time: 259 ms Right Ventricle Aorta AO Root Diam: 2.60 cm Aortic Valve Peak Velocity (Antegrade Flow): 161.00 cm/s, 230.00 cm/s AoV Area (Peak Daniel): 1.93 cm2 AoV Area (VTI): 1.90 cm2 Deceleration Esmeralda: 1880 mm/s2 Pressure Half-Time: 528 ms Peak [...] on 10/24/2020 at 19:[address] [facility] HEMOGLOBINon 09-30-2020 Hemoglobin (Bld) [Mass/Vol] 12.3 g/dL Normal 12.0-16.0 [facility] Comment on above: Performed By: #### H GB #### [facility] [address] [place], [place] [address] Geraldo Gaitan H PYLORI TISSUEon 02-01-2020 H PYL TISSUE, UREASE Negative Normal NEGATIVE [facility] Comment on above: Performed By: #### H GB #### [facility] [address] [place], [place] [address] Geraldo Gaitan COVID-19 PCRon 01-27-2020 SARS-CoV-2 (COVID-19) RNA VIVIENNE+probe Ql (Unsp spec) Not detected Normal Not Detected [facility] Comment on above: Result Comment: This nucleic acid amplification test was developed and its performance characteristics determined by [employer]. Nucleic acid amplification tests include PCR and [...] By: #### C VDSTAT, CVDPCR #### [facility] [address] [place] [address] Geraldo Gaitan PRIORITY COVID PROCESSINGon 01-27-2020 Comment Comment Normal [facility] Comment on above: Result Comment: Rece ived Performed By: #### C VDSTAT, CVDPCR #### [facility] [address] [place] [address] Geraldo Gaitan CULTURE BLOODon 01-08-2020 Microscopic examination [...] <=0.25 S F Levofloxacin <=0.12 S F Trimethoprim/Sulfamethoxazo le <=20 S F Normal [facility] Comment on above: Performed By: #### H GB #### [facility] [address] [place] [address] Geraldo Gaitan BLOOD CULTURE ID PANELon A. baumannii Not detected Normal [facility] Comment on above: Performed By: #### B MIRYAM #### [facility] [address] [place] [address] Geraldo Gaitan BCID CONTROLS PASSED Normal [facility] Comment on above: Performed By: #### B MIRYAM #### [facility] [address] [place] [address] Geraldo Gaitan BCIDBTHD BLOOD CULTURE BOTTLE INFORMATION Normal [facility] Comment on above: Performed By: #### B MIRYAM #### [facility] [address] [place] [address] Geraldo Gaitan BCIDHD1 ANTIMICROBIAL RESIST ANCE GENES Normal [facility] Comment on above: Performed By: #### B MIRYAM #### [facility] [address] [place] [address] Geraldo Kandy BCIDHD2 SEE BELOW Normal [facility] Comment on above: Result Comment: KPC- carbapenem resistance gene, mecA- methecillin resistance gene, van A/B- vancomycin resistance gene Note: Antimicrobial resitance can occur via multiple mechanisms. A Not Detected result for the [employer] antomicrobial resistance gene assays does not indicate antimicrobial susceptibility. Subculturing is required for specis identificationand susceptibility testing of isolates. Performed By: #### B MIRYAM #### [facility] [address] [place] [address] Geraldo Kandy BCIDHD3 Positive [facility] Comment on above: Performed By: #### B MIRYAM #### [facility] [address] [place] [address] Geraldo Kandy BCIDHD3 Negative [facility] Comment on above: Performed By: #### B MIRYAM #### [facility] [address] [place] [address] Geraldo Kandy BCIDHD5 YEAST Normal [facility] Comment on above: Performed By: #### B MIRYAM #### [facility] [address] [place] [address] Geraldo Kandy BCIDHD6 SEE BELOW [facility] Comment on above: Result Comment: Note : All genus and species BCID [employer] results will be verified post subculturing via Maldi-Tof MS testing methodology. Performed By: #### B MIRYAM #### [facility] [address] [place] [address] Geraldo Kandy Bottle Set: Set 2 [facility] Comment on above: Performed By: #### B IMRYAM #### [facility] [address] [place] [address] Geraldo Kandy Bottle: Aerobic Normal [facility] Comment on above: Performed By: #### B MIRYAM #### [facility] [address] [place] [address] Geraldo Kandy Naomi albicans Not detected Normal [facility] Comment on above: Performed By: #### B MIRYAM #### [facility] [address] [place] [address] Geraldo Kandy Naomi glabrata Not detected Normal [facility] Comment on above: Performed By: #### B MIRYAM #### [facility] [address] [place] [address] Geraldo Kandy Naomi Krusei Not detected Normal [facility] Comment on above: Performed By: #### B MIRYAM #### [facility] [address] [place] [address] Geraldo Kandy Naomi Parapsilosis Not detected Normal [facility] Comment on above: Performed By: #### B MIRYAM #### [facility] [address] [place] [address] Geraldo Kandy Naomi Tropicalis Not detected Normal [facility] Comment on above: Performed By: #### B MIRYAM #### [facility] [address] [place] [address] Geraldo Kandy E. Cloacae complex Not detected Normal [facility] Comment on above: Performed By: #### B MIRYAM #### [facility] [address] [place] [address] Geraldo Kandy Enterobacteriaceae Detected Invalid Interpretation Code [facility] Comment on above: Performed By: #### B MIRYAM #### [facility] [address] [place] [address] Geraldo Kandy Enterococcus Not detected Normal [facility] Comment on above: Performed By: #### B MIRYAM #### [facility] [address] [place] [address] Geraldo Kandy Escheria coli Detected Normal [facility] Comment on above: Performed By: #### B MIRYAM #### [facility] [address] [place] [address] Geraldo Kandy K. oxytoca Not detected Normal [facility] Comment on above: Performed By: #### B MIRYAM #### [facility] [address] [place] [address] Geraldo Kandy K. pneumoniae Not detected Normal [facility] Comment on above: Performed By: #### B MIRYAM #### [facility] [address] [place] [address] Geraldo Kandy KPC Resistant Gene Not detected Normal [facility] Comment on above: Performed By: #### B MIRYAM #### [facility] [address] [place] [address] Geraldobhumi Gaitan List. monocytogenes Not detected Normal [facility] Comment on above: Performed By: #### B MIRYAM #### [facility] [address] [place] [address] Geraldo Gaitan mecA Resistant Gene Not detected Normal [facility] Comment on above: Performed By: #### B MIRYAM #### [facility] [address] [place] [address] Geraldo Kandy Proteus Not detected Normal [facility] Comment on above: Performed By: #### B MIRYAM #### [facility] [address] [place] [address] Geraldo Kandy Pseud. aeruginosa Not detected Normal [facility] Comment on above: Performed By: #### B MIRYAM #### [facility] [address] [place] [address] Geraldo Kandy Seratia marcescens Not detected Normal [facility] Comment on above: Performed By: #### B MIRYAM #### [facility] [address] [place] [address] Geraldo Gaitan Site: R AC Normal [facility] Comment on above: Performed By: #### B MIRYAM #### [facility] [address] [place] [address] Geraldo Gaitan Staph. aureus Not detected Normal [facility] Comment on above: Performed By: #### B MIRYAM #### [facility] [address] [place] [address] Geraldobhumi Gaitan Staphylococcus Not detected Normal [facility] Comment on above: Performed By: #### B MIRYAM #### [facility] [address] [place] [address] Geraldobhumi Charlesen Strep. agalactiae Not detected Normal [facility] Comment on above: Performed By: #### B MIRYAM #### [facility] [address] [place] [address] Geraldo Kandy Strep. pneumoniae Not detected Normal [facility] Comment on above: Performed By: #### B MIRYAM #### [facility] [address] [place] [address] Geraldo Gaitan Strep. pyogenes Not detected Normal [facility] Comment on above: Performed By: #### B MIRYAM #### [facility] [address] [place] [address] Geraldo Gaitan Streptococcus Not detected Normal [facility] Comment on above: Performed By: #### B MIRYAM #### [facility] [address] [place] [address] Geraldo Gaitan Aicha/B Resist. Gene Not detected Normal [facility] Comment on above: Performed By: #### B MIRYAM #### [facility] [address] [place] [address] Geraldo Gaitan CBC AUTO DIFFon 01-02-2020 BASO # 0.0 103/ul Normal 0.0-0.1 [facility] Comment on above: Performed By: #### C BC #### [facility] [address] [place] [address] Geraldo Gaitan Basophils/100 WBC (Bld) 0.3 % Normal 0.2-2.0 [facility] Comment on above: Performed By: #### C BC #### [facility] [address] [place] [address] Geraldo Gaitan EO # 0.0 103/ul Normal 0.0-0.7 [facility] Comment on above: Performed By: #### C BC #### [facility] [address] [place] [address] Geraldo Gaitan Eosinophils/100 WBC (Bld) 0.3 % Critically low 0.9-7.0 [facility] Comment on above: Performed By: #### C BC #### [facility] [address] [place] [address] Geraldo Gaitan Erythrocyte distribution width (RBC) [Ratio] 12.6 % Normal 11.0-15.0 [facility] Comment on above: Performed By: #### C BC #### [facility] [address] [place] [address] Geraldo Gaitan Hematocrit (Bld) [Volume fraction] 42.7 % Normal 36.0-48.[address] [facility] Comment on above: Performed By: #### C BC #### [facility] [address] [place] [id number] Geraldo Kandy Hemoglobin (Bld) [Mass/Vol] 13.6 g/dL Normal 12.0-16.[address] [facility] Comment on above: Performed By: #### C BC #### [facility] [address] [place], [place] [address] Geraldo Kandy IG # 0.04 10e3/ul Critically high 0.00-0.03 [facility] Comment on above: Performed By: #### C BC #### [facility] [address] [place] [address] Geraldo Kandy IG % 0.3 % Normal 0.0-0.5 [facility] Comment on above: Performed By: #### C BC #### [facility] [address] [place] [address] Geraldo Kandy LYMPH # 0.5 103/ul Critically low 1.2-3.[address] [facility] Comment on above: Performed By: #### C BC #### [facility] [address] [place] [address] Geraldo Gaitan Lymphocytes/100 WBC (Bld) 4.4 % Critically low 20.5-60.0 [facility] Comment on above: Performed By: #### C BC #### [facility] [address] [place] [address] Geraldo Gaitan MANUAL DIFF REQ NO Normal [facility] Comment on above: Performed By: #### C BC #### [facility] [address] [place], [place] [id number] Geraldo Gaitan MCH (RBC) [Entitic mass] 30.6 pg Normal 26.7-34.[address] [facility] Comment on above: Performed By: #### C BC #### [facility] [address] [place] [address] Geraldo Gaitan MCHC (RBC) [Mass/Vol] 31.9 g/dL Normal 29.9-35.[address] [facility] Comment on above: Performed By: #### C BC #### [facility] [address] [place] [address] Geraldobhumi Gaitan MCV (RBC) [Entitic vol] 96.0 fL Normal 81.0-99.[address] [facility] Comment on above: Performed By: #### C BC #### [facility] [address] [place], [place] [address] Geraldobhumi Gaitan MONO # 0.8 103/ul Normal 0.3-0.[address] [facility] Comment on above: Performed By: #### C BC #### [facility] [address] [place], [place] [address] Geraldobhumi Gaitan Monocytes/100 WBC (Bld) 6.5 % Normal 1.7-12.[address] [facility] Comment on above: Performed By: #### C BC #### [facility] [address] [place], [place] [address] Geraldobhumi Charlesen NEUT # 10.1 103/ul Critically high 1.4-6.[address] [facility] Comment on above: Performed By: #### C BC #### [facility] [address] [place], [place] [address] Geraldobhumi Gaitan Neutrophils/100 WBC (Bld) 88.2 % Critically high 43.0-75.[address] [facility] Comment on above: Performed By: #### C BC #### [facility] [address] [place], [place] [id number] Geraldobhumi Gaitan Platelet mean volume (Bld) [Entitic vol] 9.8 fL Normal 9.5-13.[address] [facility] Comment on above: Performed By: #### C BC #### [facility] [address] [place], [place] [address] Geraldo Kandy PLT 254 103/ul Normal 150-[address] [facility] Comment on above: Performed By: #### C BC #### [facility] [address] [place], [place] [address] Geraldo Kandy RBC 4.45 106/ul Normal 4.20-5.[address] [facility] Comment on above: Performed By: #### C BC #### [facility] [address] [place], [place] [address] Geraldo Gaitan CT HEAD WO CONon 01-02-2020 [...] NESS Date: 2020-01-02 19:[address] [facility] CULTURE BLOODon 01-02-2020 Microscopic examination of blood, culture Culture Observations: No growth at 5 days Normal [facility] Comment on above: Performed By: #### H SAKINA #### [facility] [address] [place] [address] Geraldo Gaitan CULTURE URINEon 01-02-2020 CULTURE URINE Culture Observations : Light growth of mixed genital eliezer.No potential pathogens seen. Normal [facility] Comment on above: Performed By: #### H GB #### [facility] [address] [place], [place] [address] Geraldo Kandy ER URINE PROFILEon 0 Bilirubin Ql (U) Negative Normal NEGATIVE [facility] Comment on above: Performed By: #### MELODY CORDOVA #### [facility] [address] [place], [place] [address] Geraldo Kandy Clarity (U) SL CLOUDY Normal [facility] Comment on above: Performed By: #### E MELODY SHAH #### [facility] [address] [place], [place] [address] Geraldo Kandy Color (U) LT. YELLOW Normal YELLOW [facility] Comment on above: Performed By: #### E MELODY SHAH #### [facility] [address] [place], [place] [id number] Geraldo Kandy ERUAHD A micrscopic examina tion will be performed if indicated. Normal [facility] Comment on above: Performed By: #### MELODY CORDOVA #### [facility] [address] [place] [address] Geraldo Kandy Glucose Ql (U) Negative Normal NEGATIVE [facility] Comment on above: Performed By: #### MELODY CORDOVA #### [facility] [address] [place] [address] Geraldo Kandy Hemoglobin Ql (U) SMALL Normal NEGATIVE [facility] Comment on above: Performed By: #### MELODY CORDOVA #### [facility] [address] [place] [address] Geraldo Kandy Ketones Ql (U) Negative Normal NEGATIVE [facility] Comment on above: Performed By: #### MELODY CORDOVA #### [facility] [address] [place] [address] Geraldo Kandy LEUKOCYTES TRACE Normal NEGATIVE [facility] Comment on above: Performed By: #### MELODY CORDOVA #### [facility] [address] [place] [address] Geraldo Kandy Nitrite Ql (U) Negative Normal NEGATIVE [facility] Comment on above: Performed By: #### MELODY CORDOVA #### [facility] [address] [place] [address] Geraldo Kandy pH (U) 7.0 [pH] Normal 5-[address] [facility] Comment on above: Performed By: #### MELODY CORDOVA #### [facility] [address] [place] [address] Geraldo Kandy Protein Ql (U) 30 mg/dl Normal [facility] Comment on above: Performed By: #### MELODY CORDOVA #### [facility] [address] [place] [address] Geraldo Kandy SPEC GRAVITY 1.015 Normal 1.005-<=1. [address] [facility] Comment on above: Performed By: #### MELODY CORDOVA #### [facility] [address] [place] [address] Geraldo Kandy UR MICRO IND INDICATED Normal [facility] Comment on above: Performed By: #### E MELODY SHAH #### [facility] [address] [place] [address] Geraldo Kandy Urobilinogen Qn (U) 0.2 {Eileen'U}/dL Normal [facility] Comment on above: Performed By: #### MELODY CORDOVA #### [facility] [address] [place] [address] Geraldo Kandy LACTATE/LACTIC ACIDon 2019 Lactate [Moles/Vol] 1.1 mmol/L Normal 0.7-2.0 [facility] Comment on above: Performed By: #### H GB #### [facility] [address] [place] [address] Geraldo Kandy PROCALCITONINon 01-02-2020 PCT header 1 SEE BELOW Normal [facility] Comment on above: Result Comment: PCT <0.5ng/mL: Systemic infection (sepsis) is not likely, local bacterial infection possible, low risk for progression to severe systemic infection (severe sepsis) Performed By: #### P RL #### [facility] [address] [place] [address] Geraldo Kandy PCT header 2 SEE BELOW Normal [facility] Comment on above: Result Comment: PCT >/=0.5 and <2 ng/mL: Systemic infection (sepsis) is possible, moderate risk for progression to severe systemic infection (severe sepsis) Performed By: #### P RL #### [facility] [address] [place] [address] Geraldo Kandy PCT header 3 SEE BELOW Normal [facility] Comment on above: Result Comment: PCT >/=2.0 and <10 ng/mL: Systemic infection (sepsis) is likely, unless other causes are known, high risk for progession to severe systemic infection(severe sepsis) Performed By: #### P RL #### [facility] [address] [place] [address] Geraldo Gaitan PCT header 4 SEE BELOW Normal [facility] Comment on above: Result Comment: PCT >/= 10 ng/mL: Important systemic inflammatory response almost exclusively due to severe bacterial sepsis or septic shock, high likelihood of severe sepsis or septic shock Performed By: #### P RL #### [facility] [address] [place] [address] Geraldo Gaitan PROCALCITONIN 0.62 ng/mL Critically high 0.00-0.50 [facility] Comment on above: Performed By: #### P RL #### [facility] [address] [place], [place] [id number] Geraldo Gaitan PROF 14(COMP METB)on 020 Albumin [Mass/Vol] 3.6 g/dL Normal 3.5-5.0 [facility] Comment on above: Performed By: #### C MP #### [facility] [address] [place], [place] [id number] Geraldo Gaitan Albumin/Globulin [Mass ratio] 0.8 {ratio} Normal [facility] Comment on above: Performed By: #### C MP #### [facility] [address] [place], [place] [id number] Geraldo Kandy ALP [Catalytic activity/Vol] 95 U/L Normal 38-126 [facility] Comment on above: Performed By: #### C MP #### [facility] [address] [place], [place] [id number] Geraldo Gaitan ALT [Catalytic activity/Vol] 32 U/L Normal 9-[address] [facility] Comment on above: Performed By: #### C MP #### [facility] [address] [place], [place] [id number] Geraldo Kandy Anion gap [Moles/Vol] 13.8 mmol/L Normal [facility] Comment on above: Performed By: #### C MP #### [facility] [address] [place], [place] [id number] Geraldo Gaitan AST [Catalytic activity/Vol] 42 U/L Critically high 14-36 [facility] Comment on above: Performed By: #### C MP #### [facility] [address] [id number] Geraldo Kandy Bilirubin [Mass/Vol] 0.5 mg/dL Normal 0.2-1.[address] [facility] Comment on above: Performed By: #### C MP #### [facility] [address] [id number] Geraldo Kandy Calcium [Mass/Vol] 9.4 mg/dL Normal 8.4-10.[address] [facility] Comment on above: Performed By: #### C MP #### [facility] [address] [id number] Geraldo Kandy Chloride [Moles/Vol] 100 mmol/L Normal 98-[address] [facility] Comment on above: Performed By: #### C MP #### [facility] [address] [address] Geraldo Kandy CO2 [Moles/Vol] 24.6 mmol/L Normal 22.0-30.[address] [facility] Comment on above: Performed By: #### C MP #### [facility] [address] [id number] Geraldo Kandy Creatinine [Mass/Vol] 1.36 mg/dL Critically high 0.52-1.[address] [facility] Comment on above: Performed By: #### C MP #### [facility] [address] [id number] Geraldo Kandy EGFR-AF [place] 46 mL/min/1.73m2 Critically low >=[address] [facility] Comment on above: Performed By: #### C MP #### [facility] [address] [id number] Geraldo Kandy EGFR-NON AF [place] 38 mL/min/1.73m2 Critically low >=[address] [facility] Comment on above: Performed By: #### C MP #### [facility] [address] [id number] Geraldo Kandy Globulin (S) [Mass/Vol] 4.5 g/dL Normal [facility] Comment on above: Performed By: #### C MP #### [facility] [address] [id number] Geraldo Kandy Glucose [Mass/Vol] 120 mg/dL Critically high 74-106 T [facility] Comment on above: Performed By: #### C MP #### [facility] [address] [place] [address] Geraldo Kandy Potassium [Moles/Vol] 3.4 mmol/L Normal 3.4-5.0 [facility] Comment on above: Performed By: #### C MP #### [facility] [address] [place] [address] Geraldo Kandy Protein [Mass/Vol] 8.1 g/dL Normal 6.1-8.2 [facility] Comment on above: Performed By: #### C MP #### [facility] [address] [place] [address] Geraldo Kandy Sodium [Moles/Vol] 135 mmol/L Critically low 137-145 Th [facility] Comment on above: Performed By: #### C MP #### [facility] [address] [place] [address] Geraldo Kandy Urea nitrogen [Mass/Vol] 22.0 mg/dL Critically high 7.0-17.0 [facility] Comment on above: Performed By: #### C MP #### [facility] [address] [place] [address] Geraldo Kandy Urea nitrogen/Creatinine [Mass ratio] 16.2 mg/mg Normal [facility] Comment on above: Performed By: #### C MP #### [facility] [address] [place] [address] Geraldo Kandy RESPIRATORY PANEL PLUSon Adenovirus Not detected Normal NOT DETECTED [facility] Comment on above: Performed By: #### R SPLUS #### [facility] [address] [place] [address] Geraldo Kandy B. Parapertusis Not detected Normal NOT DETECTED [facility] Comment on above: Performed By: #### R SPLUS #### [facility] [address] [place] [address] Geraldo Kandy B. Pertussis Not detected Normal NOT DETECTED [facility] Comment on above: Performed By: #### R SPLUS #### [facility] [address] [place] [address] Geraldo Kandy Chlamydia Pneumoniae Not detected Normal NOT DETECTED [facility] Comment on above: Performed By: #### R SPLUS #### [facility] [address] [place] [address] Geraldo Kandy Coronavirus 229E Not detected Normal NOT DETECTED [facility] Comment on above: Performed By: #### R SPLUS #### [facility] [address] [place] [address] Geraldo Kandy Coronavirus HKU1 Not detected Normal NOT DETECTED [facility] Comment on above: Performed By: #### R SPLUS #### [facility] [address] [place] [address] Geraldo Kandy Coronavirus NL63 Not detected Normal NOT DETECTED [facility] Comment on above: Performed By: #### R SPLUS #### [facility] [address] [place] [address] Geraldo Kandy Coronavirus OC43 Not detected Normal NOT DETECTED [facility] Comment on above: Performed By: #### R SPLUS #### [facility] [address] [place] [address] Geraldo Kandy Influenza A H1 2009 Not detected Normal NOT DETECTED [facility] Comment on above: Performed By: #### R SPLUS #### [facility] [address] [place] [address] Geraldo Kandy Influenza B Not detected Normal NOT DETECTED [facility] Comment on above: Performed By: #### R SPLUS #### [facility] [address] [place] [address] Geraldo Kandy Metapneumovirus Not detected Normal NOT DETECTED [facility] Comment on above: Performed By: #### R SPLUS #### [facility] [address] [place] [address] Geraldo Kandy Mycoplas. Pneumoniae Not detected Normal NOT DETECTED [facility] Comment on above: Performed By: #### R SPLUS #### [facility] [address] [place], [place] [address] Geraldo Kandy Parainfluenza 1 Not detected Normal NOT DETECTED [facility] Comment on above: Performed By: #### R SPLUS #### [facility] [address] [place] [address] Geraldo Kandy Parainfluenza 2 Not detected Normal NOT DETECTED [facility] Comment on above: Performed By: #### R SPLUS #### [facility] [address] [place] [address] Geraldo Kandy Parainfluenza 3 Not detected Normal NOT DETECTED [facility] Comment on above: Performed By: #### R SPLUS #### [facility] [address] [place] [address] Geraldo Kandy Parainfluenza 4 Not detected Normal NOT DETECTED [facility] Comment on above: Performed By: #### R SPLUS #### [facility] [address] [place] [address] Geraldo Kandy Rhino/Enterovirus Not detected Normal NOT DETECTED [facility] Comment on above: Performed By: #### R SPLUS #### [facility] [address] [place] [address] Geraldo Kandy RP2 Header 1 RESPIRATORY PANEL: VIRUSES Normal [facility] Comment on above: Performed By: #### R SPLUS #### [facility] [address] [place] [address] Geraldo Kandy RP2 Header 2 RESPIRATORY PANEL: BACTERIA Normal [facility] Comment on above: Performed By: #### R SPLUS #### [facility] [address] [place] [address] Geraldo Kandy RP2 Header 4 EUA SEE BELOW Normal [facility] Comment on above: Result Comment: This test is not yet approved or cleared by the [place] FDA. When there are no FDA-approved or cleared tests available, and other criteria are met, FDA can make tests available under an emergency access mechanism called an Emergency Use Authorization (EUA). The EUA for this test is supported by the Entry Level Project Coordinator of Health and Human Service?s [...] longer be used). Performed By: #### R ANNMARIEUS #### [facility] [address] [place] [address] Geraldobhumi Gaitan RSV Not detected Normal NOT DETECTED [facility] Comment on above: Performed By: #### R SPLUS #### [facility] [address] [place] [address] Geraldo Gaitan SARS-CoV-2 (COVID-19) RNA VIVIENNE+probe Ql (Unsp spec) Not detected Normal NOT DETECTED [facility] Comment on above: Performed By: #### R ELBERT #### [facility] [address] [place] [address] Geraldo Kandy URINE MICROSCOPIC ONLYon BACTERIA MODERATE Normal NONE SEEN [facility] Comment on above: Performed By: #### MELODY CORDOVA #### [facility] [address] [place] [address] Geraldo Kandy Bacteria identified Cx Nom (U) INDICATED Normal [facility] Comment on above: Performed By: #### MELODY CORDOVA #### [facility] [address] [place] [address] Geraldo Kandy CAST NONE SEEN Normal NONE SEEN [facility] Comment on above: Performed By: #### MELODY CORDOVA #### [facility] [address] [place] [address] Geraldo Kandy Crystals LM Nom (Urine sed) NONE SEEN Normal NONE SEEN [facility] Comment on above: Performed By: #### MELODY CORDOVA #### [facility] [address] [place] [address] Geraldo Kandy Epithelial cells LM Ql (Urine sed) RARE Normal [facility] Comment on above: Performed By: #### KANDIEC CORDOVARO #### [facility] [address] [place] [address] Geraldo Kandy MUCOUS NONE SEEN Normal NONE SEEN [facility] Comment on above: Performed By: #### MELODY CORDOVA #### [facility] [address] [place], [place] [address] Geraldo Kandy RBC 0-2 Normal 0-[address] [facility] Comment on above: Performed By: #### E MELODY SHAH #### [facility] [address] [place], [place] [address] Geraldo Kandy WBC 5-10 Normal NONE SEEN [facility] Comment on above: Performed By: #### MELODY CORDOVA #### [facility] [address] [place], [place] [address] Geraldo Kandy XR CHEST 1 Von 01-02-2020 [...] NESS Date: 2020-01-02 18:[address] [facility] Vital Signs Date Time Vital Sign Value Performing Clinician Facility 10-10-2024 11:06-0400 Body height 149.9 cm [facility] Work Phone: [facility] 10-10-2024 11:06-0400 Body mass index (BMI) [Ratio] 21.61 kg/m2 [employer] Work Phone: [facility] 10-10-2024 11:06-0400 Body weight 48.53 kg [facility]riar [facility] Work Phone: [facility] 10-10-2024 11:06-0400 Diastolic blood pressure 76 mm[Hg] Shahriar [employer] Work Phone: [facility] 10-10-2024 11:06-0400 Systolic blood pressure 132 mm[Hg] [facility] Work Phone: [facility] 10-07-2024 11:40-0400 Body temperature 98.7 [degF] Shari Mckeon MD Work Phone: [facility] 10-07-2024 11:40-0400 Diastolic blood pressure 66 mm[Hg] Shari Mckeon MD Work Phone: [facility] 10-07-2024 11:40-0400 Heart rate 84 /min Shari Mckeon MD Work Phone: [facility] 10-07-2024 11:40-0400 Respiratory rate 16 /min Shari Mckeon MD Work Phone: [facility] 10-07-2024 11:40-0400 SaO2% (BldA) [Mass fraction] 94 % Shari Mckeon MD Work Phone: [facility] 10-07-2024 11:40-0400 Systolic blood pressure 154 mm[Hg] Shari Mckeon MD Work Phone: [facility] 10-06-2024 10:40-0400 Inhaled oxygen flow rate 8 L/min Shari Mckeon MD Work Phone: [facility] 10-06-2024 04:42-0400 Body height 149.86 cm Shari Mckeon MD Work Phone: [facility] 10-06-2024 04:42-0400 Body weight 49 kg Shari Mckeon MD Work Phone: [facility] 09-26-2024 14:01-0400 Body height 149.9 cm China Ortiz NP Work Phone: [facility] 09-26-2024 14:01-0400 Body mass index (BMI) [Ratio] 21.97 kg/m2 China Ortiz NP Work Phone: [facility] 09-26-2024 14:01-0400 Body weight 49.35 kg China Ortiz NP Work Phone: [facility] 09-26-2024 14:01-0400 Diastolic blood pressure 70 mm[Hg] China Ortiz SENIOR BIOSTATISTICIAN/GROUP LEADER Work Phone: [facility] 09-26-2024 14:01-0400 Heart rate 62 /min China Ortiz SENIOR BIOSTATISTICIAN/GROUP LEADER Work Phone: [facility] 09-26-2024 14:01-0400 SaO2% (BldA) [Mass fraction] 95 % China Ortiz SENIOR BIOSTATISTICIAN/GROUP LEADER Work Phone: [facility] 09-26-2024 14:01-0400 Systolic blood pressure 122 mm[Hg] China Ortiz SENIOR BIOSTATISTICIAN/GROUP LEADER Work Phone: [facility] 05-09-2024 10:42-0500 Diastolic blood pressure 70 mm[Hg] China Ortiz SENIOR BIOSTATISTICIAN/GROUP LEADER Work Phone: [facility] 05-09-2024 10:42-0500 Systolic blood pressure 120 mm[Hg] China Ortiz SENIOR BIOSTATISTICIAN/GROUP LEADER Work Phone: [facility] 05-09-2024 10:34-0500 Body height 149.9 cm China Ortiz SENIOR BIOSTATISTICIAN/GROUP LEADER Work Phone: [facility] 05-09-2024 10:34-0500 Body mass index (BMI) [Ratio] 20.28 kg/m2 China Ortiz SENIOR BIOSTATISTICIAN/GROUP LEADER Work Phone: [facility] 05-09-2024 10:34-0500 Body temperature 99.3 [degF] China Ortiz SENIOR BIOSTATISTICIAN/GROUP LEADER Work Phone: [facility] 05-09-2024 10:34-0500 Body weight 45.54 kg China Ortiz SENIOR BIOSTATISTICIAN/GROUP LEADER Work Phone: [facility] 05-09-2024 10:34-0500 Heart rate 86 /min China Ortiz SENIOR BIOSTATISTICIAN/GROUP LEADER Work Phone: [facility] 05-09-2024 10:34-0500 SaO2% (BldA) [Mass fraction] 96 % China Ortiz SENIOR BIOSTATISTICIAN/GROUP LEADER Work Phone: [facility] 01-24-2024 13:050 Body height 149.9 cm Roger Vasquez DPM Work Phone: [facility] 01-24-2024 13:050 Body mass index (BMI) [Ratio] 20.2 kg/m2 Roger Vasquez DPM Work Phone: [facility] 01-24-2024 13:050 Body weight 45.36 kg Roger Vasquez DPM Work Phone: [facility] Healthcare Encounters Encounter Date Encounter Type Care Provider Facility Start: 10-10-2024 End: 10-10-2024 Postop follow up visit related to original px Shahriar Warren DO Work Phone: [facility] Comment on above: Acute cholecystitis (Primary Dx) Start: 10-10-2024 End: 10-10-2024 ambulatory SHAHRIAR WARREN Not Available Start: 10-07-2024 End: 10-07-2024 External Result Encounter Shahriar Warren DO Work Phone: [facility] External Department Unsolicited Start: 10-07-2024 End: 10-07-2024 External Result Encounter Shahriar Warren DO Work Phone: [facility] External Department Unsolicited Start: 10-06-2024 End: 10-07-2024 Evaluation and management of inpatient Chema Gupta DO [address] [facility] Work Phone: Start: 09-28-2024 End: 10-01-2024 Follow-up encounter China Ortiz NP Work Phone: [facility] Comment on above: Moderate aortic regu rgitation (Primary Dx); Mild aortic stenosis; SOB (shortness of breath) Start: 09-27-2024 End: 09-27-2024 ambulatory SHARI Amaral MIKE [facility] Start: 09-26-2024 End: 09-26-2024 Bamboo flowsheet China Ortiz NP Work Phone: [facility] Start: 09-26-2024 End: 09-26-2024 Bamboo flowsheet China Ortiz SENIOR BIOSTATISTICIAN/GROUP LEADER Work Phone: [facility] Start: 09-26-2024 End: 09-26-2024 Office outpatient visit 25 minutes China Ortiz SENIOR BIOSTATISTICIAN/GROUP LEADER Work Phone: [facility] Comment on [...] 05-09-2024 End: 05-09-2024 Bamboo flowsheet China Ortiz SENIOR BIOSTATISTICIAN/GROUP LEADER Work Phone: [facility] Start: 05-09-2024 End: 05-09-2024 Bamboo flowsheet China Ortiz SENIOR BIOSTATISTICIAN/GROUP LEADER Work Phone: [facility] Start: 05-09-2024 End: 05-09-2024 Office outpatient visit 15 minutes China Ortiz SENIOR BIOSTATISTICIAN/GROUP LEADER Work Phone: [facility] Comment on [...] 02-20-2024 ambulatory Kei Espana MD Facility:[facility] Start: 02-07-2024 End: 02-07-2024 Meredith Mckeon MD Work Phone: [facility] Comment on above: Mild intermittent as thma, unspecified whether complicated ([facility] Start: 02-06-2024 End: 02-06-2024 ambulatory Kei Espana MD Facility:[facility] Start: 01-24-2024 End: 01-24-2024 Bamboo flowsheet Roger Vasquez DPM Work Phone: [facility] Start: 01-24-2024 End: 01-24-2024 Bamboo flowsheet Roger Vasquez DPM Work Phone: [facility] Start: 01-24-2024 End: 01-24-2024 Office outpatient visit 15 minutes Roger Vasquez DPM Work Phone: [facility] Comment on above: Dermatophytosis of n ail (Primary Dx); Dystrophic nail; Onychocryptosis; Pain of left great toe Start: 01-24-2024 End: 01-24-2024 ambulatory ROGER VASQUEZ Not Available Start: 01-23-2024 End: 01-23-2024 ambulatory Kei Espana MD Facility:[facility] Start: 01-09-2024 End: 01-09-2024 ambulatory Kei Espana MD Facility:[facility] Start: 12-28-2023 End: 12-28-2023 ambulatory SHARI MCKEON Not Available Start: 12-22-2023 End: 12-22-2023 Meredith Mckeon MD Work Phone: [facility] Comment on above: Primary insomnia Start: 12-13-2023 End: 12-13-2023 Telephone encounter Shari Mckeon MD Work Phone: [facility] Comment on above: Encounter for screen ing mammogram for malignant neoplasm of breast (Primary Dx) Start: 12-12-2023 End: 12-12-2023 ambulatory Kei Espana MD Facility:[facility] Start: 12-09-2023 End: 12-09-2023 Refill Shari Mckeon MD Work Phone: [facility] Comment on above: Mild intermittent as thma, unspecified whether complicated ([facility] Start: 11-28-2023 End: 11-28-2023 ambulatory Kei Espana MD Facility:[facility] Start: 11-17-2023 End: 11-17-2023 Refill Shari Mckeon MD Work Phone: [facility] Comment on above: Essential hypertensi on ([facility] Start: 10-04-2023 End: 10-04-2023 ambulatory ALEXANDER MONTEMAYOR [facility] Start: 09-05-2023 End: 09-05-2023 ambulatory Kei Espana MD Facility:[facility] Start: 08-22-2023 End: 08-22-2023 ambulatory Kei Espana MD Facility:[facility] Start: 07-25-2023 End: 07-25-2023 ambulatory Kei Espana MD Facility:[facility] Start: 07-11-2023 End: 07-11-2023 ambulatory Kei Espana MD Facility:[facility] Start: 04-27-2023 Telephone encounter Ede sierra DO Work Phone: [facility] 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 Start: 04-21-2023 Refill Alexander Montemayor NP Work Phone: [facility] Comment on above: Essential hypertensi on ([facility]) Start: 07-26-2022 End: 07-26-2022 ambulatory SHARI MCKEON Facility:[facility] Start: 06-29-2022 End: 06-30-2022 ambulatory SHARI MCKEON Facility:[facility] Start: 10-24-2020 End: 10-25-[address] SHARI MCKEON Facility:[facility] Start: 09-30-2020 End: 10-01-[address] SHARI CMKEON Facility:[facility] Start: 02-01-2020 End: 02-01-[address] CARLOS EDUARDO MENENDEZ Facility:[facility] Start: 01-30-2020 Encounter for prepro cedural laboratory examination DR CARLOS EDUARDO MENENDEZ [facility] Start: 01-26-2020 End: 01-27-[address] SHARI MCKEON Facility:[facility] Start: 01-26-2020 End: 01-27-2020 Encounter for preprocedural laboratory examination DR HSARI MCKEON Facility:[facility] Start: 01-02-2020 End: 01-02-[address] BÁRBARA BLUE Facility:[facility] Start: 05-25-2018 End: 05-26-2018 Patient encounter procedure DEFAULT PHYSICIAN Facility:[facility] Procedures Date Procedure Procedure Detail Performing Clinician Start: 10-07-2024 Bilirubin total Shahriar Warren DO Work Phone: Start: 10-07-2024 Complete blood count with white cell differential, automated Shahriar Warren DO Work Phone: Start: 10-06-2024 Laparoscopic cholecystectomy Shari Mckeon MD Work Phone: Start: 06-06-2024 Mri spinal canal tho racic w/o contrast matrl Generic External Data Provider Plan of Treatment Date Care Activity Detail Author Start: 11-12-2024 Influenza vaccination Influenza Vaccine (#1) [facility] Start: 10-07-2024 [facility] Start: 10-06-2024 Referral to general surgeon [facility] Start: 10-06-2024 Hospital admission [facility] Start: 10-01-2024 End: 10-01-2026 Echocardiogram 2D complete Echocardiogram 2D complete Echocardiography Routine Moderate aortic regurgitation Mild aortic stenosis SOB (shortness of breath) Expected: 10/01/2024 (Approximate), Expires: 10/01/2026 [facility] Work Phone: Comment on above: Expected: 10/01/2024 (Approximate), Expi res: 10/01/2026 Start: 09-26-2024 End: 09-26-2025 CBC W Auto Differential panel - Blood CBC and differential Lab Routine Shortness of breath Expected: 09/26/2024 (Approximate), Expires: 09/26/2025 [facility] Comment on above: Expected: 09/26/2024 (Approximate), Expi res: 09/26/2025 Start: 09-26-2024 End: 09-26-2025 Comprehensive metabolic 2000 panel - Serum or Plasma Comprehensive metabolic panel Lab Routine Stage 3b chronic kidney disease ([facility]) Shortness of breath Expected: 09/26/2024 (Approximate), Expires: 09/26/2025 [facility] Comment on above: Expected: 09/26/2024 (Approximate), Expi res: 09/26/2025 Start: 09-26-2024 End: 09-26-2025 ECG 12 lead ECG 12 lead ECG Routine Primary hypertension Irregular heart beat Shortness of breath Expected: 09/26/2024 (Approximate), Expires: 09/26/2025 [facility] Work Phone: Comment on above: Expected: 09/26/2024 (Approximate), Expi res: 09/26/2025 Start: 09-26-2024 End: 09-26-2025 Lipid 1996 panel - Serum or Plasma Lipid panel Lab Routine Primary hypertension Pure hypercholesterolemia Shortness of breath Expected: 09/26/2024 (Approximate), Expires: 09/26/2025 [facility] Comment on above: Expected: 09/26/2024 (Approximate), Expi res: 09/26/2025 Start: 09-26-2024 End: 09-26-2024 Patient encounter procedure 09/26/2024 2:00 PM EDT Office Visit [facility] [address] [place] [address] China Ortiz NP [address] [place] [address] Arrived [facility] Comment on above: Arrived Start: 06-16-2024 Medicare Annual Wellness (AWV) Medicare Annual Wellness (AWV) [facility] Start: 05-09-2024 End: 05-09-2024 Patient encounter procedure 05/09/2024 10:30 AM EST Office Visit [facility] [address] [place] [phone] China Ortiz NP [address] [place] [address] Arrived [facility] Comment on above: Arrived Start: 12-28-2023 End: 12-28-2023 Professional / ancillary services management 12/28/2023 9:00 AM EDT Ancillary Procedure [facility] [place] [facility] [address] [facility] [address] [place] [phone] [facility] Start: 12-13-2023 End: 02-11-2025 MG Breast - bilateral Screening Bilateral screening mammogram Imaging Routine Encounter for screening mammogram for malignant neoplasm of breast Expected: 12/13/2023, Expires: 02/11/2025 [facility] Work Phone: Comment on above: Expected: 12/13/2023, Expires: Start: 11-13-2023 Influenza vaccination Influenza Vaccine (#1) [facility] Start: 08-02-2023 End: 08-02-2023 Patient encounter procedure 08/02/2023 9:00 AM EDT Office Visit [facility] [address] [facility] [address] [place] [id number] Eed Ramos DO [address] [facility] [address] [place] [address] [facility] Start: 05-06-2023 Medicare Annual Wellness (AWV) Medicare Annual Wellness (AWV) [facility] Patient Education Know your Meds [facility] Work Phone: Patient referral [facility] Work Phone: Immunizations Immunization Date Immunization Notes Care Provider Fa holland 01-19-2024 RSV, recombinant, protein subunit RSVpreF, adjuvant reconstitu, 120mcg/0.5mL, PF (Arexvy) China Ortiz SENIOR BIOSTATISTICIAN/GROUP LEADER Work Phone: [facility] 01-05-2024 influenza, high dose seasonal, preservative-free Chian Ortiz SENIOR BIOSTATISTICIAN/GROUP LEADER Work Phone: [facility] 01-05-2024 influenza virus vaccine, unspecified formulation China Ortiz SENIOR BIOSTATISTICIAN/GROUP LEADER Work Phone: [facility] 12-23-2022 Influenza, High-dose Seasonal, Quadrivalent, Preservative Free Alexander Hackenburg SENIOR BIOSTATISTICIAN/GROUP LEADER Work Phone: [facility] 12-23-2022 SARS-COV-2 (COVID-19 ) vaccine, mRNA, spike protein, LNP, PF, 50 mcg/0.5 mL Alexander Hackenburg SENIOR BIOSTATISTICIAN/GROUP LEADER Work Phone: [facility] 12-23-2022 influenza virus vaccine, unspecified formulation Shari Mckeon MD Work Phone: [facility] 12-01-2021 Influenza, Seasonal, Quadrivalent, Adjuvanted Alexander Hackenburg SENIOR BIOSTATISTICIAN/GROUP LEADER Work Phone: [facility] 12-01-2021 Seasonal, trivalent, recombinant, injectable influenza vaccine, preservative free Alexander Hackenburg SENIOR BIOSTATISTICIAN/GROUP LEADER Work Phone: [facility] 12-16-2020 Influenza, High-dose Seasonal, Quadrivalent, Preservative Free Alexander Hackenburg SENIOR BIOSTATISTICIAN/GROUP LEADER Work Phone: [facility] 05-14-2020 COVID-19 mRNA-1273 (Moderna) Shari Mckeon MD Work Phone: [facility] 04-16-2020 COVID-19 mRNA-1273 (Moderna) Shari Mckeon MD Work Phone: [facility] 02-14-2020 zoster vaccine recombinant Alexander Hackenburg SENIOR BIOSTATISTICIAN/GROUP LEADER Work Phone: [facility] 12-07-2019 influenza, seasonal, injectable Alexander Hackenburg SENIOR BIOSTATISTICIAN/GROUP LEADER Work Phone: [facility] 11-13-2019 influenza, injectabl e, quadrivalent, preservative free Alexander Hasobiaenburg SENIOR BIOSTATISTICIAN/GROUP LEADER Work Phone: [facility] 11-13-2019 zoster vaccine recombinant Alexander Hasobiaenburg SENIOR BIOSTATISTICIAN/GROUP LEADER Work Phone: [facility] 11-12-2019 zoster vaccine recombinant Alexander Havadimburg SENIOR BIOSTATISTICIAN/GROUP LEADER Work Phone: [facility] 11-29-2018 Seasonal trivalent influenza vaccine, adjuvanted, preservative free Alexander Hasobiaenburg SENIOR BIOSTATISTICIAN/GROUP LEADER Work Phone: [facility] 11-30-2017 influenza, high dose seasonal, preservative-free Alexander Hasobiaenburg SENIOR BIOSTATISTICIAN/GROUP LEADER Work Phone: [facility] 11-24-2017 Seasonal trivalent influenza vaccine, adjuvanted, preservative free Alexander Hasobiaenburg SENIOR BIOSTATISTICIAN/GROUP LEADER Work Phone: [facility] 11-18-2016 influenza, high dose seasonal, preservative-free Alexander Hasobiaenburg SENIOR BIOSTATISTICIAN/GROUP LEADER Work Phone: [facility] Work Phone: 11-18-2016 pneumococcal conjuga te vaccine, 13 valent Alexander Patrickenburg SENIOR BIOSTATISTICIAN/GROUP LEADER Work Phone: [facility] 11-18-2016 Seasonal trivalent influenza vaccine, adjuvanted, preservative free Alexander Hasobiaenburg SENIOR BIOSTATISTICIAN/GROUP LEADER Work Phone: [facility] 11-18-2016 tetanus toxoid, redu greg diphtheria toxoid, and acellular pertussis vaccine, adsorbed Alexander Hasobiaenburg SENIOR BIOSTATISTICIAN/GROUP LEADER Work Phone: [facility] 11-12-2016 pneumococcal polysaccharide vaccine, 23 valent Alexander Hackenburg SENIOR BIOSTATISTICIAN/GROUP LEADER Work Phone: [facility] 12-11-2015 influenza, high dose seasonal, preservative-free Alexander Hackenburg SENIOR BIOSTATISTICIAN/GROUP LEADER Work Phone: [facility] 12-30-2014 influenza virus vaccine, whole virus Alexander Hackenburg SENIOR BIOSTATISTICIAN/GROUP LEADER Work Phone: [facility] 12-30-2014 influenza, injectabl e, quadrivalent, preservative free Alexander Hackenburg SENIOR BIOSTATISTICIAN/GROUP LEADER Work Phone: [facility] 05-10-2014 pneumococcal conjuga te vaccine, 13 valent Alexander Hackenburg SENIOR BIOSTATISTICIAN/GROUP LEADER Work Phone: [facility] 12-13-2013 influenza virus vaccine, whole virus Alexander Hackenburg SENIOR BIOSTATISTICIAN/GROUP LEADER Work Phone: [facility] 01-12-2013 pneumococcal Conjuga te, unspecified formulation Alexander Hackenburg SENIOR BIOSTATISTICIAN/GROUP LEADER Work Phone: [facility] 01-12-2013 seasonal influenza, intradermal, preservative free Alexander Hackenburg SENIOR BIOSTATISTICIAN/GROUP LEADER Work Phone: [facility] 12-27-2012 pneumococcal polysaccharide vaccine, 23 valent Alexander Hackenburg SENIOR BIOSTATISTICIAN/GROUP LEADER Work Phone: [facility] Payers Date Payer Category Payer Medicare [id number] 2024 Self-pay 2023 Unknown 2017 Medicare ANTHEM MEDICARE ADVANTAGE ANTHEM MEDICARE ADVANTAGE [id number] 2017-Present [id number] 2017 Medicare (Managed Care) [facility] [id number] 1959 Unknown [id number] 1944 Unknown [id number] 2.16.840.1.932980.3.579. 2.647 1944 Unknown [id number] 2.16.840.1.865120.3.579. 2.593 1944 Unknown [id number] 2.16.840.1.537150.3.579. 2.593 1944 Unknown [id number] 2.16.840.1.026387.3.579. 2.593 1944 Unknown [id number] 2.16.840.1.962073.3.579. 2.593 1944 Unknown [id number] 2.16.840.1.564676.3.579. 2.593 1944 Unknown [id number] 2.840.1.368092.3.579. 2.718 1944 Unknown [id number] 2.16840.1.364879.3.579. 2.718 1944 Unknown [id number] 2.16840.1.626249.3.579. 2.196 1944 Unknown [id number] 2.16840.1.865226.3.579. 2.196 1944 Unknown [id number] 2.840.1.187464.3.579. 2.196 1944 Unknown [id number] 2.16840.1.251437.3.579. 2.196 1944 Unknown [id number] 2.16.840.1.445015.3.579. 2.196 1944 Unknown [id number] 2.16.840.1.941934.3.579. 2.196 1944 Unknown [id number] 2.16840.1.038452.3.579. 2.196 1944 Unknown [id number] 2.16.840.1.566877.3.579. 2.196 1944 Unknown [id number] 2.16.840.1.299067.3.579. 2.196 1944 Unknown [id number] 2.16.840.1.547396.3.579. 2.196 1944 Unknown [id number] 2.16.840.1.835943.3.579. 2.1286 1944 Unknown [id number] 2.16.840.1.023310.3.579. 2.1286 1944 Unknown [id number] 2.16.840.1.133670.3.579. 2.1259 1944 Unknown [id number] 2.16.840.1.386558.3.579. 2.1259 1944 Unknown [id number] 2.16.840.1.179218.3.579. 2.1259 1944 Unknown [id number] 2.16.840.1.897933.3.579. 2.1259 1944 Unknown [id number] 2.16.840.1.361351.3.579. 2.1259 Unknown [id number] 2.16.840.1.469179.3.579. 2.531 Social History Date Type Detail Facility Start: 09-17-2022 End: 10-06-2024 Tobacco smoking status MEIS Never smoked tobacco [facility] Start: 09-17-2022 Tobacco use and exposure Smokeless tobacco non-user [facility] Start: 04-18-2023 End: 10-09-2024 Alcohol intake Current drinker of alcohol (finding) [facility] Start: 04-18-2023 End: 06-17-2023 Alcohol intake [facility] Start: 04-18-2023 End: 06-17-2023 Tobacco use panel [facility] Start: 01-06-2023 Alcohol Comment Caffeine intak e: 1-2 cups per day [facility] Start: 1945 Sex Assigned At Not on file [facility] How often to you hav e a drink containing alcohol? 4 or more times a week [facility] How many standard drinks containing alcohol do you have on a typical day? 1 or 2 [facility] How often do you hav e 6 or more drinks on 1 occasion? Never [facility] Sex Female (finding) [facility] Start: 1945 Sex Assigned At Female [facility] Goals Date Patient Goal Desired Activity /State Functional Status Date Assessment Result Facility 10-07-2024 Functional status Patient at Baseline [facility] Work Phone: Mental Status Date Assessment Result Facility 10-07-2024 Cognitive function Cognitive Sta tus Patient at Baseline [facility] Work Phone: Clinical Notes 02-01-2020 to 10-10-2024 Shahriar Warren DO - 10/10/2024 11:15 AM EDT Note Date & Type Note Facility 10-10-2024 History of Presen t illness Narrative Images from the original note were not included. Radha Barraza 1945 Radha Barraaz is a 79 y.o. female presents for 1st po lap barron IP HPI: HPI Patient has been keeping track of her drain outputs. They have been around 20 mL per day. She has not having any nausea or vomiting fevers chills or sweats. She does have some pain near the umbilical incision towards the right. She is eating and having bowel movements. OBJECTIVE: Physical Exam Constitutional: Appearance: Normal appearance. She is not ill-appearing. Cardiovascular: Rate and Rhythm: Regular rhythm. Abdominal: General: There is no distension. Tenderness: There is no abdominal tenderness. Comments: Incisions are clean, dry and intact. No cellulitis or hernia SAUD drain shows a scant amount of serous output no bile tinge Media Information Document Information Other: Other PATH- Gallbladder PCL 10/09/2024 15:18 Attached To: GENERAL PATHOLOGY [[id number]] Orders Only on 10/09/24 with Shahriar Warren DO Source Information Paulina Gold [facility] Document History ASSESSMENT AND PLAN: Assessment/Plan Diagnoses and all orders for this visit: Acute cholecystitis Status post laparoscopic cholecystectomy secondary to acute gangrenous cholecystitis. I removed the SAUD drain. We discussed continued activity restrictions, incision care, drain site care, pathology report. I discussed with her and her [id number]. Not unexpected to have some soreness near the umbilical incision that was the extraction site from the gallbladder. I will see her again in 3 weeks No follow-ups on file. documented in this encounter [facility] 10-07-2024 Progress note Note Date/Time October 07, 2024 11:33am [facility] [address] [place] [address] General Surgery Progress Note Signed Patient: Radha Barraza MR#: [id number] 803 : 1945 Acct:[id number] Age/Sex: 79 / F Adm Date: 5 Loc: Room: [address] [place] [address] Type: ADM IN Attending Dr: Chema Gupta DO Copies to: ~ Date of Service: 10/07/2024 Subjective Subjective HPI: Patient feels somewhat better than yesterday. She is very thankful for the surgery that she was able to receive. She has been eating without any difficulty. She is not having any nausea or vomiting. She is not having any fevers chills or sweats. No shortness of breath. Allergies & Medications Medications and Allergies Allergies No Known Allergies Allergy (Verified 10/06/24 04:11) Home Medications acetaminophen 300 mg-codeine 30 mg tablet 1 tab PO BID PRN pain 10/06/24 [History Confirmed 10/06/24] albuterol 90 mcg/actuation aerosol inhaler 90 mcg inhalation BID PRN shortness of breath or wheezing 10/06/24 [History Confirmed 10/06/24] calcium 600 mg (as carbonate)-vitamin D3 5 mcg (200 unit) capsule (Calcium 600 +D(3)) 1 cap PO BID 10/06/24 [History Confirmed 10/06/24] hydrocodone 5 mg-acetaminophen 325 mg tablet 1 tab PO DAILY PRN pain 10/06/24 [History Confirmed 10/06/24] losartan 100 mg-hydrochlorothiazide 12.5 mg tablet 1 tab PO DAILY 10/06/24 [History Confirmed 10/06/24] metoprolol succinate 25 mg tablet,extended release 24 hr 25 mg PO DAILY 10/06/24[History Confirmed 10/06/24] multivitamin 1 tab PO DAILY 10/06/24 [History Confirmed 10/06/24] trazodone 50 mg tablet 50 mg PO DAILY 10/06/24 [History Confirmed 10/06/24] Active Medications Acetaminophen (Acetaminophen 325 Mg Tablet) 650 mg PO Q6HR PRN PRN Reason: Pain Scale 1 - 3 or fever Stop: 10/06/25 04:33 Hydrocodone Bitart/Acetaminophen (Hydrocodone/Acetaminophen 5-325 Mg Tablet) 1 tab PO Q4H PRN PRN Reason: Pain Last Admin: 10/07/24 11:05 Dose: 1 tab Albuterol (Albuterol Hfa 60 Puff/8 Gram Inhaler) 1 puff INHALATION BID PRN PRN Reason: Shortness Of Breath Or Wheezing Stop: 10/06/25 11:51 Calcium Carbonate (Calcium Carbonate/Vitamin D3 500 Mg/200 Unit Tablet) 1 tab PO BID.WITH.MEALS [facility] Stop: 10/06/25 16:59 Last Admin: 10/07/24 09:15 Dose: 1 tab Famotidine (Famotidine/Pf 20 Mg/2 Ml Vial) 20 mg IV-PUSH Q12HR [facility] Stop: 10/06/25 08:59 Last Admin: 10/07/24 09:15 Dose: 20 mg Hydralazine HCl (Hydralazine 20 Mg/Ml Vial) 10 mg IV-PUSH Q4H PRN PRN Reason: if SBP > 185 Stop: 10/06/25 04:36 Hydrochlorothiazide (Hydrochlorothiazide 12.5 Mg Tablet) 12.5 mg PO DAILY [facility] Stop: 10/07/25 08:59 Last Admin: 10/07/24 09:15 Dose: 12.5 mg Hydromorphone HCl (Hydromorphone 1 Mg/Ml Syringe) 0.5 mg IV-PUSH Q3H PRN PRN Reason: Pain Lactated Ringer's (Lactated Ringers) 1,000 mls @ 75 mls/hr IV .[id number] [facility] Stop: 10/06/25 04:44 Last Admin: 10/07/24 05:37 Dose: 75 mls/hr Ertapenem 0.5 gm/ Sodium (Chloride) 100 mls @ 200 mls/hr IV Q24H [facility] Stop: 10/07/25 01:59 Last Admin: 10/07/24 03:07 Dose: 200 mls/hr Lidocaine HCl (Lidocaine 1% 50 Ml Vial) 0.1 ml INTRADERMA PREOP PRN PRN Reason: Venipuncture x 1 Dose Losartan Potassium (Losartan 50 Mg Tablet) 100 mg PO DAILY [facility] Stop: 10/07/25 08:59 Last Admin: 10/07/24 09:15 Dose: 100 mg Ondansetron HCl (Ondansetron 4 Mg/2 Ml Vial) 4 mg IV-PUSH Q6H PRN PRN Reason: Nausea And Vomiting Stop: 10/06/25 11:23 Prochlorperazine Edisylate (Prochlorperazine Edisylate 10 Mg/2 Ml Vial) 5 mg IV-PUSH Q4H PRN PRN Reason: Nausea And Vomiting Stop: 10/06/25 04:33 Sodium Chloride (Sodium Chloride 0.9 % 10 Ml Vial.Pf) 10 ml INJECTION Q12HR [facility] Stop: 10/06/25 08:59 Last Admin: 10/07/24 09:15 Dose: 10 ml Sodium Chloride (Sodium Chloride 0.9 % 10 Ml Syringe) 0 ml IV-PUSH PRN PRN PRN Reason: Flush Stop: 10/06/25 08:17 Last Admin: 10/07/24 09:15 Dose: 10 ml Trazodone HCl (Trazodone 50 Mg Tablet) 50 mg PO QPM [facility] Stop: 10/07/25 20:59 Exam Physical Exam Vital Signs: Temp Pulse Resp BP Pulse Ox O2 Del Method O2 Flow Rate 97.7 F 90 20 155/71 H 96 Room Air 8 10/07/24 08:30 10/07/24 08:30 10/07/24 08:30 10/07/24 08:30 10/07/24 08:30 10/07/24 08:30 10/06/24 10:40 Narrative: Patient is conversive pleasant very comfortable. Heart is regular rate rhythm. Lungs are clear. Abdomen is soft nontender nondistended except around the incisions. SAUD drain shows some serosanguineous output very thin no bile tinge Objective Pain Assessment Generalized: Pain Description: Constant and Aching Pain Intensity: 2 Abdomen: Pain Description: Constant and Aching Pain Intensity: 2 Intake & Output 24 hour I&O: Intake & Output 10/06/24 10/07/24 10/07/24 23:59 07:59 15:59 Intake Total 2440 / 3440 240 / 600 360 / 600 Output Total 300 / 321 530 / 550 20 / 550 Balance 2140 / 3119 -290 / 50 340 / 50 Labs 10/07/24 04:53 10/07/24 04:53 Laboratory Results - Last 48 hrs. 10/07/24 04:53: Corrected WBC 8.5, Uncorrected WBC Count 8.5, RBC 3.01 L, Hgb 9.6 L, Hct 28.5 L, MCV 94.6, MCH 31.8, MCHC 33.6, RDW 13.5, Plt Count 177, MPV 8.8, Neut % (Auto) 84.8, Lymph % (Auto) 9.4, [place] % (Auto) 4.2, Eos % (Auto) 1.3, Baso % (Auto) 0.3, Nucleat RBC Rel Count 0.0, Neut # (Auto) 7.2, Lymph # (Auto) 0.8 L, [place] # (Auto) 0.4, Eos # (Auto) 0.1, Baso # (Auto) 0.0, PHA Creatinine Clear 29.30, BUN 20, Creatinine 1.10, Est GFR (CKD-EPI) 50.796, TotalBilirubin 0.3, Direct Bilirubin 0.10, Indirect Bilirubin 0.2 10/06/24 05:56: Lipase Cancelled 10/06/24 05:56: Amylase Cancelled, Lipase 13.0 10/06/24 05:56: Alkaline Phosphatase Cancelled, Total Protein 5.7 L, Albumin 3.3L, Globulin 2.4, Albumin/Globulin Ratio 1.4, Triglycerides 74, Cholesterol 145, LDL Cholesterol, Calc 59, VLDL Cholesterol 14, HDL Cholesterol 71, Cholesterol/HDL Ratio 2.0, Amylase 41 10/06/24 05:56: ALT Cancelled, Alkaline Phosphatase 93 10/06/24 05:56: AST Cancelled, ALT 119 H 10/06/24 05:56: Indirect Bilirubin Cancelled, AST 161 H 10/06/24 05:56: Direct Bilirubin Cancelled, Indirect Bilirubin 0.3 10/06/24 05:56: Total Bilirubin Cancelled, Direct Bilirubin 0.30 H 10/06/24 05:56: Corrected WBC 11.1, Uncorrected WBC Count 11.1, RBC 3.62, Hgb 11.5 L, Hct 34.3, MCV 94.8, MCH 31.6, MCHC 33.4, RDW 13.4, Plt Count 207, MPV 8.6, Neut % (Auto) 89.1, Lymph % (Auto) 6.6, Windham % (Auto) 3.9, Eos % (Auto) 0.2, Baso % (Auto) 0.2, Nucleat RBC Rel Count 0.0, Neut # (Auto) 9.9 H, Lymph # (Auto) 0.7 L, Windham # (Auto) 0.4, Eos # (Auto) 0.0, Baso # (Auto) 0.0, PT 12.0, INR 1.1, PHA Creatinine Clear 24.23, Sodium 133 L, Potassium 3.8, Chloride 101, Carbon Dioxide 25.1, Anion Gap 10.7, BUN 28 H, Creatinine 1.33 H, Est GFR (CKD-EPI) 40.447, Glucose 99, Calcium 8.5 L, Total Bilirubin 0.6 A&P - General Surgery Assessment/Plan (1) Acute cholecystitis: (2) Intractable right upper quadrant abdominal pain: (3) Leukocytosis: Plan Status post laparoscopic cholecystectomy with ICG cholangiogram secondary to acute gangrenous cholecystitis. Marked improvement in patient's symptoms. Afebrile and white blood cell count is normal. I am okay for discharge home with oral antibiotics. She and her family will call the office on Tuesday morning to get an appointment for the drain removal on Tuesday or . Idiscussed with them activity restriction, incision care, medication usage. We discussed bathing instructions and drain care.. Documented By: Shahriar Warren DO 10/07/24 113 Signed By: <Electronically signed by DO Shahriar Warren> 10/07/24 113 [facility] Work Phone: 1(399) 834-559907-27-2025 [place] [address] General Surgery Progress Note Signed Patient: Radha Barraza MR#: [id number] 803 : 1945 Acct:[id number] Age/Sex: 79 / F Adm Date: 5 Loc: 4N Room: 7X7680-6 Type: ADM IN Attending Dr: Chema Gupta DO Copies to: ~ Date of Service: 10/07/2024 Subjective Subjective HPI: Patient feels somewhat better than yesterday. She is very thankful for the surgery that she was able to receive. She has been eating without any difficulty. She is not having any nausea or vomiting. She is not having any fevers chills or sweats. No shortness of breath. Allergies & Medications Medications and Allergies Allergies No Known Allergies Allergy (Verified 10/06/24 04:11) Home Medications acetaminophen 300 mg-codeine 30 mg tablet 1 tab PO BID PRN pain 10/06/24 [History Confirmed 10/06/24] albuterol 90 mcg/actuation aerosol inhaler 90 mcg inhalation BID PRN shortness of breath or wheezing 10/06/24 [History Confirmed 10/06/24] calcium 600 mg (as carbonate)-vitamin D3 5 mcg (200 unit) capsule (Calcium 600 +D(3)) 1 cap PO BID 10/06/24 [History Confirmed 10/06/24] hydrocodone 5 mg-acetaminophen 325 mg tablet 1 tab PO DAILY PRN pain 10/06/24 [History Confirmed 10/06/24] losartan 100 mg-hydrochlorothiazide 12.5 mg tablet 1 tab PO DAILY 10/06/24 [History Confirmed 10/06/24] metoprolol succinate 25 mg tablet,extended release 24 hr 25 mg PO DAILY 10/06/24[History Confirmed 10/06/24] multivitamin 1 tab PO DAILY 10/06/24 [History Confirmed 10/06/24] trazodone 50 mg tablet 50 mg PO DAILY 10/06/24 [History Confirmed 10/06/24] Active Medications Acetaminophen (Acetaminophen 325 Mg Tablet) 650 mg PO Q6HR PRN PRN Reason: Pain Scale 1 - 3 or fever Stop: 10/06/25 04:33 Hydrocodone Bitart/Acetaminophen (Hydrocodone/Acetaminophen 5-325 Mg Tablet) 1 tab PO Q4H PRN PRN Reason: Pain Last Admin: 10/07/24 11:05 Dose: 1 tab Albuterol (Albuterol Hfa 60 Puff/8 Gram Inhaler) 1 puff INHALATION BID PRN PRN Reason: Shortness Of Breath Or Wheezing Stop: 10/06/25 11:51 Calcium Carbonate (Calcium Carbonate/Vitamin D3 500 Mg/200 Unit Tablet) 1 tab PO BID.WITH.MEALS [facility] Stop: 10/06/25 16:59 Last Admin: 10/07/24 09:15 Dose: 1 tab Famotidine (Famotidine/Pf 20 Mg/2 Ml Vial) 20 mg IV-PUSH Q12HR [facility] Stop: 10/06/25 08:59 Last Admin: 10/07/24 09:15 Dose: 20 mg Hydralazine HCl (Hydralazine 20 Mg/Ml Vial) 10 mg IV-PUSH Q4H PRN PRN Reason: if SBP > 185 Stop: 10/06/25 04:36 Hydrochlorothiazide (Hydrochlorothiazide 12.5 Mg Tablet) 12.5 mg PO DAILY [facility] Stop: 10/07/25 08:59 Last Admin: 10/07/24 09:15 Dose: 12.5 mg Hydromorphone HCl (Hydromorphone 1 Mg/Ml Syringe) 0.5 mg IV-PUSH Q3H PRN PRN Reason: Pain Lactated Ringer's (Lactated Ringers) 1,000 mls @ 75 mls/hr IV .[id number] [facility] Stop: 10/06/25 04:44 Last Admin: 10/07/24 05:37 Dose: 75 mls/hr Ertapenem 0.5 gm/ Sodium (Chloride) 100 mls @ 200 mls/hr IV Q24H [facility] Stop: 10/07/25 01:59 Last Admin: 10/07/24 03:07 Dose: 200 mls/hr Lidocaine HCl (Lidocaine 1% 50 Ml Vial) 0.1 ml INTRADERMA PREOP PRN PRN Reason: Venipuncture x 1 Dose Losartan Potassium (Losartan 50 Mg Tablet) 100 mg PO DAILY [facility] Stop: 10/07/25 08:59 Last Admin: 10/07/24 09:15 Dose: 100 mg Ondansetron HCl (Ondansetron 4 Mg/2 Ml Vial) 4 mg IV-PUSH Q6H PRN PRN Reason: Nausea And Vomiting Stop: 10/06/25 11:23 Prochlorperazine Edisylate (Prochlorperazine Edisylate 10 Mg/2 Ml Vial) 5 mg IV- PUSH Q4H PRN PRN Reason: Nausea And Vomiting Stop: 10/06/25 04:33 Sodium Chloride (Sodium Chloride 0.9 % 10 Ml Vial.Pf) 10 ml INJECTION Q12HR [facility] Stop: 10/06/25 08:59 Last Admin: 10/07/24 09:15 Dose: 10 ml Sodium Chloride (Sodium Chloride 0.9 % 10 Ml Syringe) 0 ml IV-PUSH PRN PRN PRN Reason: Flush Stop: 10/06/25 08:17 Last Admin: 10/07/24 09:15 Dose: 10 ml Trazodone HCl (Trazodone 50 Mg Tablet) 50 mg PO QPM [facility] Stop: 10/07/25 20:59 Exam Physical Exam Vital Signs: Temp Pulse Resp BP Pulse Ox O2 Del Method O2 Flow Rate 97.7 F 90 20 155/71 H 96 Room Air 8 10/07/24 08:30 10/07/24 08:30 10/07/24 08:30 10/07/24 08:30 10/07/24 08:30 10/07/24 08:30 10/06/24 10:40 Narrative: Patient is conversive pleasant very comfortable. Heart is regular rate rhythm. Lungs are clear. Abdomen is soft nontender nondistended except around the incisions. SAUD drain shows some serosanguineousoutput very thin no bile tinge Objective Pain Assessment Generalized: Pain Description: Constant and Aching Pain Intensity: 2 Abdomen: Pain Description: Constant and Aching Pain Intensity: 2 Intake & Output 24 hour I&O: Intake & Output 10/06/24 10/07/24 10/07/24 23:59 07:59 15:59 Intake Total 2440 / 3440 240 / 600 360 / 600 Output Total 300 / 321 530 / 550 20 / 550 Balance 2140 / 3119 -290 / 50 340 / 50 Labs 10/07/24 04:53 10/07/24 04:53 Laboratory Results - Last 48 hrs. 10/07/24 04:53: Corrected WBC 8.5, Uncorrected WBC Count 8.5, RBC 3.01 L, Hgb 9.6 L, Hct 28.5 L, MCV 94.6, MCH 31.8, MCHC 33.6, RDW 13.5, Plt Count 177, MPV 8.8, Neut % (Auto) 84.8, Lymph % (Auto) 9.4, [place] % (Auto) 4.2, Eos % (Auto) 1.3, Baso % (Auto) 0.3, Nucleat RBC Rel Count 0.0, Neut # (Auto) 7.2, Lymph # (Auto) 0.8 L, [place] # (Auto) 0.4, Eos # (Auto) 0.1, Baso # (Auto) 0.0, PHA Creatinine Clear 29.30, BUN 20, Creatinine 1.10, Est GFR (CKD-EPI) 50.796, TotalBilirubin 0.3, Direct Bilirubin 0.10, Indirect Bilirubin 0.2 10/06/24 05:56: Lipase Cancelled 10/06/24 05:56: Amylase Cancelled, Lipase 13.0 10/06/24 05:56: Alkaline Phosphatase Cancelled, Total Protein 5.7 L, Albumin 3.3L, Globulin 2.4, Albumin/Globulin Ratio 1.4, Triglycerides 74, Cholesterol 145, LDL Cholesterol, Calc 59, VLDL Cholesterol 14, HDL Cholesterol 71, Cholesterol/HDL Ratio 2.0, Amylase 41 10/06/24 05:56: ALT Cancelled, Alkaline Phosphatase 93 10/06/24 05:56: AST Cancelled, ALT 119 H 10/06/24 05:56: Indirect Bilirubin Cancelled, AST 161 H 10/06/24 05:56: Direct Bilirubin Cancelled, Indirect Bilirubin 0.3 10/06/24 05:56: Total Bilirubin Cancelled, Direct Bilirubin 0.30 H 10/06/24 05:56: Corrected WBC 11.1, Uncorrected WBC Count 11.1, RBC 3.62, Hgb 11.5 L, Hct 34.3, MCV94.8, MCH 31.6, MCHC 33.4, RDW 13.4, Plt Count 207, MPV 8.6, Neut % (Auto) 89.1, Lymph % (Auto) 6.6, [place] % (Auto) 3.9, Eos % (Auto) 0.2, Baso % (Auto) 0.2, Nucleat RBC Rel Count 0.0, Neut # (Auto) 9.9 H, Lymph # (Auto) 0.7 L, [place] # (Auto) 0.4, Eos # (Auto) 0.0, Baso # (Auto) 0.0, PT 12.0, INR 1.1, PHA Creatinine Clear 24.23, Sodium 133 L, Potassium 3.8, Chloride 101, Carbon Dioxide 25.1, Anion Gap 10.7, BUN 28 H, Creatinine 1.33 H, Est GFR (CKD- EPI) 40.447, Glucose 99, Calcium 8.5 L, Total Bilirubin 0.6 A&P - General Surgery Assessment/Plan (1) Acute cholecystitis: (2) Intractable right upper quadrant abdominal pain: (3) Leukocytosis: Plan Status post laparoscopic cholecystectomy with ICG cholangiogram secondary to acute gangrenous cholecystitis. Marked improvement in patient's symptoms. Afebrile and white blood cell count is normal. Jordin okay for discharge home with oral antibiotics. She and her family will call the office on to get an appointment for the drain removal on Tuesday or . Idiscussed with them activity restriction, incision care, medication usage. We discussed bathing instructions and drain care.. Documented By: Shahriar Warren DO 10/07/24 113 Signed By: 10/07/24 1133 [facility]07-26-2025 Progress note Author Chema Gupta [facility] Note Date/Time October 06, 2024 3:14 pm [facility] [address] [place] [address] Hospitalist Progress Note Signed Patient: Radha Barraza MR#: [id number] 803 : 1945 Acct:[id number] Age/Sex: 79 / F Adm Date: 5 Loc: 4N Room: 8H9595-5 Type: ADM IN Attending Dr: Chema Gupta DO Copies to: ~ Date of Service: 10/06/2024 Subjective Subjective Narrative: Patient is an 79-year-old female with medical history as listed below who presented to [facility] due to abdominal pain. Patient was seen earlier yesterday morning for back pain and was treated with [place] and reports that helped with her pain however she kept having abdominal pain for which she returnto ER later yesterday and was evaluated. Reported right upper quadrant pain, worsening with inspiration, denies any nausea or vomiting or diarrhea. Denies fevers or chills at home. CT scan at [facility] showed distended gallbladder with mild gallbladder wall thickening with adjacent stranding, may represent cholecystitis, prominence of CBD without obstructing stone. Noted with WBC around 12, AST 131 ALT in 102. BUN 38, creatinine 1.7, unclear baseline. Lactate within normal limit, rest of chemistry unremarkable. UA negative for infection. ER team discussed with our general surgery on-call who accepted the case. She was given IV fluids there and 1 dose of Invanz IV. Patient was transferred here overnight for further evaluation management. ++++ ++++ Tuesday update: The patient did get the emergent cholecystectomy and Dr. Warren found acute gangrenous cholecystitis today. A SAUD drain was left in place. When I round on the patient at about lunchtime he is accompanied by multiple family members. One of them is a cardiac diagnostics specialist at the [facility]. One of them is a retired ER physician from [facility], and one of them is another physician from [facility]. The patient has just finished working with physical therapy and Occupational Therapy. She is just finished eating a light lunch. She is wide-awake. She isjovial. She let her family members help us get her lying in bed after her meal and boost her up in bed. She says that she wants to be discharged from the hospital immediately. Her family members reminded her that she just had a majorsurgery and she will need to be in the hospital for a few days. She still has some right upper quadrant pain. She does not appear to have any nausea. Exam Physical Exam Vital Signs: Temp Pulse Resp BP Pulse Ox O2 Del Method O2 Flow Rate 98.8 F 90 16 116/57 L 96 Room Air 8 10/06/24 11:13 10/06/24 11:28 10/06/24 11:28 10/06/24 11:28 10/06/24 11:28 10/06/24 11:10/06/24 10:40 Narrative: General: Awake. Alert. Acts much younger than her stated age. Cardiac: Grade 2 murmur heard which is holosystolic but I believe it is, from the aortic valve. No rubs or gallops auscultation. Pulmonary: Clear to auscultation throughout. No wheezing or rhonchi. No crackles. GI: Minimal bowel gas at this time. The SAUD drain is draining about 25 mL of reddish material but no gross purulence. To auscultation I hear surprisingly normal bowel sounds. Appropriate tenderness in the right upper quadrant and postsurgical patient. Lower extremities: Sleeve compression devices are in place and in good position bilaterally. No edema in her ankles. Skin is warm and dry and well-perfused. Objective Lab Results 10/06/24 05:56 10/06/24 05:56 Meds Allergies and Active Meds Allergies No Known Allergies Allergy (Verified 10/06/24 04:11) Active Meds: Active Medications Generic Name Dose Route Start Last Admin Trade Name Freq PRN Reason Stop Dose Admin Acetaminophen 650 mg 10/06/24 04:34 Acetaminophen 325 Mg Tablet PO 10/06/25 04:33 Q6HR PRN Pain Scale 1 - 3 or fever Hydrocodone Bitart/Acetaminophen 1 tab 10/06/24 11:24 10/06/24 12:11 Hydrocodone/Acetaminophen 5-325 Mg Tablet PO 1 tab Q4H PRN Administration Pain Albuterol 1 puff 10/06/24 11:52 Albuterol Hfa 60 Puff/8 Gram Inhaler INHALATION 10/06/25 11:51 BID PRN Shortness Of Breath Or Wheezing Calcium Carbonate 1 tab 10/06/24 17:00 Calcium Carbonate/Vitamin D3 500 Mg/200 Unit Tablet PO 10/06/25 16:59 BID.WITH.MEALS MARCIA Famotidine 20 mg 10/06/24 09:00 10/06/24 13:49 Famotidine/Pf 20 Mg/2 Ml Vial IV-PUSH 10/06/25 08:59 Not Given Q12HR [facility] Hydralazine HCl 10 mg 10/06/24 04:37 Hydralazine 20 Mg/Ml Vial IV-PUSH 10/06/25 04:36 Q4H PRN if SBP > 185 Hydrochlorothiazide 12.5 mg 10/07/24 09:00 Hydrochlorothiazide 12.5 Mg Tablet PO 10/07/25 08:59 DAILY [facility] Hydromorphone HCl 0.5 mg 10/06/24 11:24 Hydromorphone 1 Mg/Ml Syringe IV-PUSH Q3H PRN Pain Lactated Ringer's 1,000 mls @ 75 mls/hr 10/06/24 04:45 10/06/24 05:03 Lactated Ringers IV 10/06/25 04:44 75 mls/hr .[id number] [facility]IA Administration Ertapenem 0.5 gm/ Sodium 100 mls @ 200 mls/hr 10/07/24 02:00 Chloride IV 10/07/25 01:59 Q24H [facility]IA Lactated Ringer's 1,000 mls @ 20 mls/hr 10/06/24 09:00 10/06/24 10:56 Lactated Ringers IV 10/07/24 08:59 20 mls/hr .Q24H ONE Administration Lidocaine HCl 0.1 ml 10/06/24 08:18 Lidocaine 1% 50 Ml Vial INTRADERMA PREOP PRN Venipuncture x 1 Dose Losartan Potassium 100 mg 10/07/24 09:00 Losartan 50 Mg Tablet PO 10/07/25 08:59 DAILY [facility] Ondansetron HCl 4 mg 10/06/24 11:24 Ondansetron 4 Mg/2 Ml Vial IV-PUSH 10/06/25 11:23 Q6H PRN Nausea And Vomiting Prochlorperazine Edisylate 5 mg 10/06/24 04:34 Prochlorperazine Edisylate 10 Mg/2 Ml Vial IV-PUSH 10/06/25 04:33 Q4H PRN Nausea And Vomiting Sodium Chloride 10 ml 10/06/24 09:00 10/06/24 13:50 Sodium Chloride 0.9 % 10 Ml Vial.Pf INJECTION 10/06/25 08:59 Not Given Q12HR [facility] Sodium Chloride 0 ml 10/06/24 08:18 Sodium Chloride 0.9 % 10 Ml Syringe IV-PUSH 10/06/25 08:17 PRN PRN Flush Trazodone HCl 50 mg 10/07/24 21:00 Trazodone 50 Mg Tablet PO 10/07/25 20:59 QPM [facility] A&P - Hospitalist Assessment/Plan (1) Heart murmur: (2) Acute gangrenous cholecystitis: Plan Assessment: Acute gangrenous cholecystitis, status post emergent cholecystectomy on 10/06/2024. Heart murmur. Long-term low back pain. Plan: Continued stay in the hospital. Continues to need intravenous antibiotics. Monitor the drainage from the surgically placed a SAUD drain. I would keep her on telemetry for at least 24 more hours. Consider stopping IV fluids since she ate fairly nice lunch after surgery today. I discussed the case with her 3 family members at the bedside and they had no additional questions or needs at this time. DVT ppx: SCDs Diet: Advance diet as directed by general surgery with Dr. Warren. Documented By: Chema Gupta DO [id number] Signed By: <Electronically signed by Chema Gupta DO> 10/06/24 1514 [facility] Work Phone: [phone]) 795-111607-26-2025 [place] [address] Hospitalist Progress Note Signed Patient: Radha Barraza MR#: [id number] 803 : 1945 Acct:[id number] Age/Sex: 79 / F Adm Date: 5 Loc: Room: [address] [place] [address] Type: ADM IN Attending Dr: Chema Gupta DO Copies to: ~ Date of Service: 10/06/2024 Subjective Subjective Narrative: Patient is an 79-year-old female with medical history as listed below who presented to [facility] due to abdominal pain. Patient was seen earlier yesterday morning for back pain and was treated with [place] and reports that helped with her pain however she kept having abdominal pain for which she returnto ER later yesterday and was evaluated. Reported right upper quadrant pain, worsening with inspiration, denies any nausea or vomiting or diarrhea. Denies fevers or chills at home. CT scan at [facility] showed distended gallbladder with mild gallbladder wall thickening with adjacentstranding, may represent cholecystitis, prominence of CBD without obstructing stone. Noted with WBCaround 12, AST 131 ALT in 102. BUN 38, creatinine 1.7, unclear baseline. Lactate within normal limit, rest of chemistry unremarkable. UA negative for infection. ER team discussed with our general surgery on-call who accepted the case. She was given IV fluids there and 1 dose of Invanz IV. Patient was transferred here overnight for further evaluation management. ++++ ++++ Tuesday update: The patient did get the emergent cholecystectomy and Dr. Warren found acute gangrenous cholecystitis today. A SAUD drain was left in place. When I round on the patient at about lunchtime he is accompanied by multiple family members. One ofthem is a cardiac diagnostics specialist at the [facility]. One of them is a retired ER physician from [employer], and one of them is another physician from [facility]. The patient has just finished working with physical therapy and Occupational Therapy. She is just finished eating a light lunch. She is wide-awake. She isjovial. She let her family members help us get her lying in bed after her meal and boost her up in bed. She says that she wants to be discharged from thespital immediately. Her family members reminded her that she just had a majorsurgery and she willneed to be in the hospital for a few days. She still has some right upper quadrant pain. She does not appear to have any nausea. Exam Physical Exam Vital Signs: Temp Pulse Resp BP Pulse Ox O2 Del Method O2 Flow Rate 98.8 F 90 16 116/57 L 96 Room Air 8 10/06/24 11:13 10/06/24 11:28 10/06/24 11:28 10/06/24 11:28 10/06/24 11:28 10/06/24 11:28 10/06/24 10:40 Narrative: General: Awake. Alert. Acts much younger than her stated age. Cardiac: Grade 2 murmur heard which is holosystolic but I believe it is, from the aortic valve. No rubs or gallops auscultation. Pulmonary: Clear to auscultation throughout. No wheezing or rhonchi. No crackles. GI: Minimal bowel gas at this time. The SAUD drain is draining about 25 mL of reddish material but nogross purulence. To auscultation I hear surprisingly normal bowel sounds. Appropriate tenderness inthe right upper quadrant and postsurgical patient. Lower extremities: Sleeve compression devices are in place and in good position bilaterally. No edema in her ankles. Skin is warm and dry and well-perfused. Objective Lab Results 10/06/24 05:56 10/06/24 05:56 Meds Allergies and Active Meds Allergies No Known Allergies Allergy (Verified 10/06/24 04:11) Active Meds: Active Medications Generic Name Dose Route Start Last Admin Trade Name Freq PRN Reason Stop Dose Admin Acetaminophen 650 mg 10/06/24 04:34 Acetaminophen 325 Mg Tablet PO 10/06/25 04:33 Q6HR PRN Pain Scale 1 - 3 or fever Hydrocodone Bitart/Acetaminophen 1 tab 10/06/24 11:24 10/06/24 12:11 Hydrocodone/Acetaminophen 5-325 Mg Tablet PO 1 tab Q4H PRN Administration Pain Albuterol 1 puff 10/06/24 11:52 Albuterol Hfa 60 Puff/8 Gram Inhaler INHALATION 10/06/25 11:51 BID PRN Shortness Of Breath Or Wheezing Calcium Carbonate 1 tab 10/06/24 17:00 Calcium Carbonate/Vitamin D3 500 Mg/200 Unit Tablet PO 10/06/25 16:59 BID.WITH.MEALS MARCIA Famotidine 20 mg 10/06/24 09:00 10/06/24 13:49 Famotidine/Pf 20 Mg/2 Ml Vial IV-PUSH 10/06/25 08:59 Not Given Q12HR [facility] Hydralazine HCl 10 mg 10/06/24 04:37 Hydralazine 20 Mg/Ml Vial IV-PUSH 10/06/25 04:36 Q4H PRN if SBP > 185 Hydrochlorothiazide 12.5 mg 10/07/24 09:00 Hydrochlorothiazide 12.5 Mg Tablet PO 10/07/25 08:59 DAILY [facility] Hydromorphone HCl 0.5 mg 10/06/24 11:24 Hydromorphone 1 Mg/Ml Syringe IV-PUSH Q3H PRN Pain Lactated Ringer's 1,000 mls @ 75 mls/hr 10/06/24 04:45 10/06/24 05:03 Lactated Ringers IV 10/06/25 04:44 75 mls/hr .[id number] M[facility]IA Administration Ertapenem 0.5 gm/ Sodium 100 mls @ 200 mls/hr 10/07/24 02:00 Chloride IV 10/07/25 01:59 Q24H [facility] Lactated Ringer's 1,000 mls @ 20 mls/hr 10/06/24 09:00 10/06/24 10:56 Lactated Ringers IV 10/07/24 08:59 20 mls/hr .Q24H ONE Administration Lidocaine HCl 0.1 ml 10/06/24 08:18 Lidocaine 1% 50 Ml Vial INTRADERMA PREOP PRN Venipuncture x 1 Dose Losartan Potassium 100 mg 10/07/24 09:00 Losartan 50 Mg Tablet PO 10/07/25 08:59 DAILY [facility] Ondansetron HCl 4 mg 10/06/24 11:24 Ondansetron 4 Mg/2 Ml Vial IV-PUSH 10/06/25 11:23 Q6H PRN Nausea And Vomiting Prochlorperazine Edisylate 5 mg 10/06/24 04:34 Prochlorperazine Edisylate 10 Mg/2 Ml Vial IV-PUSH 10/06/25 04:33 Q4H PRN Nausea And Vomiting Sodium Chloride 10 ml 10/06/24 09:00 10/06/24 13:50 Sodium Chloride 0.9 % 10 Ml Vial.Pf INJECTION 10/06/25 08:59 Not Given Q12HR [facility] Sodium Chloride 0 ml 10/06/24 08:18 Sodium Chloride 0.9 % 10 Ml Syringe IV-PUSH 10/06/25 08:17 PRN PRN Flush Trazodone HCl 50 mg 10/07/24 21:00 Trazodone 50 Mg Tablet PO 10/07/25 20:59 QPM [facility] A&P - Hospitalist Assessment/Plan (1) Heart murmur: (2) Acute gangrenous cholecystitis: Plan Assessment: Acute gangrenous cholecystitis, status post emergent cholecystectomy on 10/06/2024. Heart murmur. Long-term low back pain. Plan: Continued stay in the hospital. Continues to need intravenous antibiotics. Monitor the drainage from the surgically placed a SAUD drain. I would keep her on telemetry for at least 24 more hours. Consider stopping IV fluids since she ate fairly nice lunch after surgery today. I discussed the case with her 3 family members at the bedside and they had no additional questions or needs at this time. DVT ppx: SCDs Diet: Advance diet as directed by general surgery with Dr. Warren. Documented By: Chema Gupta, [id number] Signed By: 10/06/24 1514 [facility]07-26-2025 Consult note Author Shahriar Warren [facility] Note Date/Time October 06, 2024 8:11 am [facility] [address] [place] [address] General Surgery Consult Note Signed Patient: Radha Barraza MR#: [id number] 803 : 1945 Acct:[id number] Age/Sex: 79 / F Adm Date: 5 Loc: Room: [address] [place] [address] Type: ADM IN Attending Dr: Chema Gupta DO Copies to: MD Chema Dumont DO Paul C Laffay, DO~ History of Present Illness Date of consult: 10/06/2024 Requesting/Attending Provider: Chema Gupta DO History of present illness: Patient went to [place] emergency department on night with severe backpain. She had some right side pain but it was milder in comparison so she did not really notice it. She got a pain shot of Toradol for the back pain and thenwent home. She has developed a more intractable right upper quadrant pain and came back to the emergency room last night. She was feeling chills and feverish. She was writhing around in pain in her bed. She said that she has never had any pain like this before. She has not had any mild right upper quadrant pain attacks. She does not get any pain after eating. This is completely different from anything she is ever had before she does have some chronic back pain but that is different than what she had the other day. She was not vomiting. She did have some nausea. She does feel some bloating. She said that she is very healthy she has a lot of things to do and she needs to getthis taken care of so that she can get back to her activities. She has a history of back pain and some degenerative joint disease, heart murmur, hypertension. Had a shoulder surgery and 2 knee replacements no abdominal surgeries Review of Systems Review of Systems All other systems reviewed & are negative unless noted below or in [facility] Medical History Heart murmur Osteoarthritis Surgical History History of total knee arthroplasty History of carpal tunnel release H/O total shoulder replacement Family History Father Mother Social History Smoking Status: Never smoker Substance Use Type: None Social History Comments: granddaughter Allergies & Medications Medications and Allergies Allergies No Known Allergies Allergy (Verified 10/06/24 04:11) Home Medications acetaminophen 300 mg-codeine 30 mg tablet 1 tab PO BID PRN pain 10/06/24 [History Confirmed 10/06/24] albuterol 90 mcg/actuation aerosol inhaler 90 mcg inhalation BID 10/06/24 [History Confirmed 10/06/24] calcium 600 mg (as carbonate)-vitamin D3 5 mcg (200 unit) capsule (Calcium 600 +D(3)) 1 cap PO BID 10/06/24 [History Confirmed 10/06/24] hydrocodone 5 mg-acetaminophen 325 mg tablet 1 tab PO DAILY PRN pain 10/06/24 [History Confirmed 10/06/24] losartan 100 mg-hydrochlorothiazide 12.5 mg tablet 1 tab PO DAILY 10/06/24 [History Confirmed 10/06/24] metoprolol succinate 25 mg tablet,extended release 24 hr 25 mg PO DAILY 10/06/24[History Confirmed 10/06/24] multivitamin 1 tab PO DAILY 10/06/24 [History Confirmed 10/06/24] trazodone 50 mg tablet 50 mg PO DAILY 10/06/24 [History Confirmed 10/06/24] Active Medications Acetaminophen (Acetaminophen 325 Mg Tablet) 650 mg PO Q6HR PRN PRN Reason: Pain Scale 1 - 3 or fever Stop: 10/06/25 04:33 Famotidine (Famotidine/Pf 20 Mg/2 Ml Vial) 20 mg IV-PUSH Q12HR MARCIA Stop: 10/06/25 08:59 Hydralazine HCl (Hydralazine 20 Mg/Ml Vial) 10 mg IV-PUSH Q4H PRN PRN Reason: if SBP > 185 Stop: 10/06/25 04:36 Lactated Ringer's (Lactated Ringers) 1,000 mls @ 75 mls/hr IV .[id number] MARCIA Stop: 10/06/25 04:44 Last Admin: 10/06/24 05:03 Dose: 75 mls/hr Ertapenem 0.5 gm/ Sodium (Chloride) 100 mls @ 200 mls/hr IV Q24H MARCIA Stop: 10/07/25 01:59 Morphine Sulfate (Morphine Sulfate 2 Mg/Ml Vial) 2 mg IV-PUSH Q4H PRN PRN Reason: Pain Scale 8 - 10 Last Admin: 10/06/24 05:02 Dose: 2 mg Prochlorperazine Edisylate (Prochlorperazine Edisylate 10 Mg/2 Ml Vial) 5 mg IV- PUSH Q4H PRN PRN Reason: Nausea And Vomiting Stop: 10/06/25 04:33 Sodium Chloride (Sodium Chloride 0.9 % 10 Ml Vial.Pf) 10 ml INJECTION Q12HR MARCIA Stop: 10/06/25 08:59 Exam Physical Exam Vital Signs: Temp Pulse Resp BP Pulse Ox O2 Del Method 99.3 F H 94 20 149/88 H 93 L Room Air 10/06/24 05:57 10/06/24 04:42 10/06/24 04:42 10/06/24 04:42 10/06/24 04:42 10/06/24 04:43 Narrative: Patient is lucid, she is writhing in pain. Head is atraumatic normocephalic. Eyes without scleral icterus. Neck no anterior posterior cervical lymphadenopathy. Heart is regular rate rhythm 2 slightly tachycardic. Lungs are clear. Abdomen is soft there is no peritonitis but she does have exquisite severe tenderness in the right upper quadrant. Other quadrants she has some mild discomfort in the right upper but not in that quadrant of exam. Extremities no edema Results - Gen. Surgery Intake and Output 24 hour I&O: Intake & Output 10/05/24 10/06/24 10/06/24 23:59 07:59 15:59 Intake Total 0 / 0 Output Total / Balance -1 / -1 Weight 49 kg Labs 10/06/24 05:56 10/06/24 05:56 Laboratory Results - last 72 hr 10/06/24 05:56: Lipase Cancelled 10/06/24 05:56: Amylase Cancelled, Lipase 13.0 10/06/24 05:56: Alkaline Phosphatase Cancelled, Total Protein 5.7 L, Albumin 3.3L, Globulin 2.4, Albumin/Globulin Ratio 1.4, Triglycerides 74, Cholesterol 145, LDL Cholesterol, Calc 59, VLDL Cholesterol 14, HDL Cholesterol 71, Cholesterol/HDL Ratio 2.0, Amylase 41 10/06/24 05:56: ALT Cancelled, Alkaline Phosphatase 93 10/06/24 05:56: AST Cancelled, ALT 119 H 10/06/24 05:56: Indirect Bilirubin Cancelled, AST 161 H 10/06/24 05:56: Direct Bilirubin Cancelled, Indirect Bilirubin 0.3 10/06/24 05:56: Total Bilirubin Cancelled, Direct Bilirubin 0.30 H 10/06/24 05:56: Corrected WBC 11.1, Uncorrected WBC Count 11.1, RBC 3.62, Hgb 11.5 L, Hct 34.3, MCV 94.8, MCH 31.6, MCHC 33.4, RDW 13.4, Plt Count 207, MPV 8.6, Neut % (Auto) 89.1, Lymph % (Auto) 6.6, Windham % (Auto) 3.9, Eos % (Auto) 0.2, Baso % (Auto) 0.2, Nucleat RBC Rel Count 0.0, Neut # (Auto) 9.9 H, Lymph # (Auto) 0.7 L, Windham # (Auto) 0.4, Eos # (Auto) 0.0, Baso # (Auto) 0.0, PT 12.0, INR 1.1, PHA Creatinine Clear 24.23, Sodium 133 L, Potassium 3.8, Chloride 101, Carbon Dioxide 25.1, Anion Gap 10.7, BUN 28 H, Creatinine 1.33 H, Est GFR (CKD-EPI) 40.447, Glucose 99, Calcium 8.5 L, Total Bilirubin 0.6 A&P - General Surgery (1) Acute cholecystitis: (2) Intractable right upper quadrant abdominal pain: (3) Leukocytosis: Plan Patient has intractable right upper quadrant pain, leukocytosis, temperatures are starting to elevate, exam consistent with acute cholecystitis and CAT scan findings that show a markedly distended and thickened gallbladder. Patient's bilirubins and alk phos are normal. She does have some slight elevation of AST ALT likely secondary to inflammation from adjacent gallbladder. No evidence of common duct stone. I had a discussion with her and her daughter and also her other daughter on the phone with her who is an ER physician. I discussed with them the clinical scenario. This is a markedly abnormal gallbladder. Plan would be for laparoscopic cholecystectomy, may need to be an open cholecystectomy, may require a subtotal cholecystectomy with an ERCP and stent placement for bile leak. It is possible that there could be major bile duct injury that could require complete biliary reconstruction at a tertiary care center. Risk of bleeding or intra-abdominal infection or abscess. Risk ofmedical problems around the time of surgery. They understand and would like to proceed. She has a life-threatening illness at present. Will proceed to surgery immediately. Continue n.p.o. IV fluids and antibiotics. Documented By: Shahriar Warren DO 10/06/24 0803 Signed By: <Electronically signed by DO Shahriar Warren> 10/06/24 0811 [facility] Work Phone: [phone]) 708-116307-26-2025 [place] [address] General Surgery Consult Note Signed Patient: Radha Barraza MR#: [id number] 803 : 1945 Acct:[id number] Age/Sex: 79 / F Adm Date: 5 Loc: Room: [address] [place] [address] Type: ADM IN Attending Dr: Chema Gupta DO Copies to: MD Chema Dumont DO Paul C Laffay, DO~ History of Present Illness Date of consult: 10/06/2024 Requesting/Attending Provider: Chema Gupta DO History of present illness: Patient went to [place] emergency department on night with severe backpain. She had some right side pain but it was milder in comparison so she did not really notice it. She got a pain shotof Toradol for the back pain and thenwent home. She has developed a more intractable right upper quadrant pain and came back to the emergency room last night. She was feeling chills and feverish. Shewas writhing around in pain in her bed. She said that she has never had any pain like this before. She has not had any mild right upper quadrant pain attacks. She does not get any pain after eating. This is completely different from anything she is ever had before she does have some chronic back pain but that is different than what she had the other day. She was not vomiting. She did have some nausea. She does feel some bloating. She said that she is very healthy she has a lot of things to do and she needs to getthis taken care of so that she can get back to her activities. She has a history of back pain and some degenerative joint disease, heart murmur, hypertension. Hada shoulder surgery and 2 knee replacements no abdominal surgeries Review of Systems Review of Systems All other systems reviewed & are negative unless noted below or in HPI [facility] Medical History Heart murmur Osteoarthritis Surgical History History of total knee arthroplasty History of carpal tunnel release H/O total shoulder replacement Family History Father Mother Social History Smoking Status: Never smoker Substance Use Type: None Social History Comments: granddaughter Allergies & Medications Medications and Allergies Allergies No Known Allergies Allergy (Verified 10/06/24 04:11) Home Medications acetaminophen 300 mg-codeine 30 mg tablet 1 tab PO BID PRN pain 10/06/24 [History Confirmed 10/06/24] albuterol 90 mcg/actuation aerosol inhaler 90 mcg inhalation BID 10/06/24 [History Confirmed 10/06/24] calcium 600 mg (as carbonate)-vitamin D3 5 mcg (200 unit) capsule (Calcium 600 +D(3)) 1 cap PO BID 10/06/24 [History Confirmed 10/06/24] hydrocodone 5 mg-acetaminophen 325 mg tablet 1 tab PO DAILY PRN pain 10/06/24 [History Confirmed 10/06/24] losartan 100 mg-hydrochlorothiazide 12.5 mg tablet 1 tab PO DAILY 10/06/24 [History Confirmed 10/06/24] metoprolol succinate 25 mg tablet,extended release 24 hr 25 mg PO DAILY 10/06/24[History Confirmed 10/06/24] multivitamin 1 tab PO DAILY 10/06/24 [History Confirmed 10/06/24] trazodone 50 mg tablet 50 mg PO DAILY 10/06/24 [History Confirmed 10/06/24] Active Medications Acetaminophen (Acetaminophen 325 Mg Tablet) 650 mg PO Q6HR PRN PRN Reason: Pain Scale 1 - 3 or fever Stop: 10/06/25 04:33 Famotidine (Famotidine/Pf 20 Mg/2 Ml Vial) 20 mg IV-PUSH Q12HR [facility] Stop: 10/06/25 08:59 Hydralazine HCl (Hydralazine 20 Mg/Ml Vial) 10 mg IV-PUSH Q4H PRN PRN Reason: if SBP > 185 Stop: 10/06/25 04:36 Lactated Ringer's (Lactated Ringers) 1,000 mls @ 75 mls/hr IV .[id number] [facility] Stop: 10/06/25 04:44 Last Admin: 10/06/24 05:03 Dose: 75 mls/hr Ertapenem 0.5 gm/ Sodium (Chloride) 100 mls @ 200 mls/hr IV Q24H [facility] Stop: 10/07/25 01:59 Morphine Sulfate (Morphine Sulfate 2 Mg/Ml Vial) 2 mg IV-PUSH Q4H PRN PRN Reason: Pain Scale 8 - 10 Last Admin: 10/06/24 05:02 Dose: 2 mg Prochlorperazine Edisylate (Prochlorperazine Edisylate 10 Mg/2 Ml Vial) 5 mg IV- PUSH Q4H PRN PRN Reason: Nausea And Vomiting Stop: 10/06/25 04:33 Sodium Chloride (Sodium Chloride 0.9 % 10 Ml Vial.Pf) 10 ml INJECTION Q12HR [facility] Stop: 10/06/25 08:59 Exam Physical Exam Vital Signs: Temp Pulse Resp BP Pulse Ox O2 Del Method 99.3 F H 94 20 149/88 H 93 L Room Air 10/06/24 05:57 10/06/24 04:42 10/06/24 04:42 10/06/24 04:42 10/06/24 04:42 10/06/24 04:43 Narrative: Patient is lucid, she is writhing in pain. Head is atraumatic normocephalic. Eyes without scleral icterus. Neck no anterior posterior cervical lymphadenopathy. Heart is regular rate rhythm 2 slightlytachycardic. Lungs are clear. Abdomen is soft there is no peritonitis but she does have exquisite se blanca tenderness in the right upper quadrant. Other quadrants she has some mild discomfort in the right upper but not in that quadrant of exam. Extremities no edema Results - Gen. Surgery Intake and Output 24 hour I&O: Intake & Output 10/05/24 10/06/24 10/06/24 23:59 07:59 15:59 Intake Total 0 / 0 Output Total Balance -1 / -1 Weight 49 kg Labs 10/06/24 05:56 10/06/24 05:56 Laboratory Results - last 72 hr 10/06/24 05:56: Lipase Cancelled 10/06/24 05:56: Amylase Cancelled, Lipase 13.0 10/06/24 05:56: Alkaline Phosphatase Cancelled, Total Protein 5.7 L, Albumin 3.3L, Globulin 2.4, Albumin/Globulin Ratio 1.4, Triglycerides 74, Cholesterol 145, LDL Cholesterol, Calc 59, VLDL Cholesterol 14, HDL Cholesterol 71, Cholesterol/HDL Ratio 2.0, Amylase 41 10/06/24 05:56: ALT Cancelled, Alkaline Phosphatase 93 10/06/24 05:56: AST Cancelled, ALT 119 H 10/06/24 05:56: Indirect Bilirubin Cancelled, AST 161 H 10/06/24 05:56: Direct Bilirubin Cancelled, Indirect Bilirubin 0.3 10/06/24 05:56: Total Bilirubin Cancelled, Direct Bilirubin 0.30 H 10/06/24 05:56: Corrected WBC 11.1, Uncorrected WBC Count 11.1, RBC 3.62, Hgb 11.5 L, Hct 34.3, MCV94.8, MCH 31.6, MCHC 33.4, RDW 13.4, Plt Count 207, MPV 8.6, Neut % (Auto) 89.1, Lymph % (Auto) 6.6, Windham % (Auto) 3.9, Eos % (Auto) 0.2, Baso % (Auto) 0.2, Nucleat RBC Rel Count 0.0, Neut # (Auto) 9.9 H, Lymph # (Auto) 0.7 L, [place]ham # (Auto) 0.4, Eos # (Auto) 0.0, Baso # (Auto) 0.0, PT 12.0, INR 1.1, PHA Creatinine Clear 24.23, Sodium 133 L, Potassium 3.8, Chloride 101, Carbon Dioxide 25.1, Anion Gap 10.7, BUN 28 H, Creatinine 1.33 H, Est GFR (CKD- EPI) 40.447, Glucose 99, Calcium 8.5 L, Total Bilirubin 0.6 A&P - General Surgery (1) Acute cholecystitis: (2) Intractable right upper quadrant abdominal pain: (3) Leukocytosis: Plan Patient has intractable right upper quadrant pain, leukocytosis, temperatures are starting to elevate, exam consistent with acute cholecystitis and CAT scan findings that show a markedly distended and thickened gallbladder. Patient's bilirubins and alk phos are normal. She does have some slight elevation of AST ALT likely secondary to inflammation from adjacent gallbladder. No evidence of common duct stone. I had a discussion with her and her daughter and also her other daughter on the phone with her who is an ER physician. I discussed with them the clinical scenario. This is a markedly abnormal gallbladder. Plan would be for laparoscopic cholecystectomy, may need to be an open barron cystectomy, may require a subtotal cholecystectomy with an ERCP and stent placement for bile leak. It is possible that there could be major bile duct injury that could require complete biliary reconstruction at a tertiary care center. Risk of bleeding or intra-abdominal infection or abscess. Risk ofmedical problems around the time of surgery. They understand and would like to proceed. She has a life-threatening illness at present. Will proceed to surgery immediately. Continue n.p.o. IV fluids and antibiotics. Documented By: Shahriar Warren DO 10/06/24 0803 Signed By: 10/06/24 0811 [facility]07-26-2025 History and physical note Author Kimberly Sanchez [facility] Note Date/Time October 06, 2024 5:53 am [facility] [address] [place] [address] Hospitalist H&P Signed Patient: Radha Barraza MR#: [id number] 803 : 1945 Acct:[id number] Age/Sex: 79 / F Adm Date: 5 Loc: 3T Room: [address] [place] [address] Type: ADM IN Attending Dr: Kimberly Sanchez MD Copies to: MD Kimberly Dumont MD~ HPI DATE OF EXAMINATION: 10/06/24 CHIEF COMPLAINT: Abd pain HISTORY OF PRESENT ILLNESS: Patient is an 79-year-old female with medical history as listed below who presented to [facility] due to abdominal pain. Patient was seen earlier yesterday morning for back pain and was treated with [place] and reports that helped with her pain however she kept having abdominal pain for which she returnto ER later yesterday and was evaluated. Reported right upper quadrant pain, worsening with inspiration, denies any nausea or vomiting or diarrhea. Denies fevers or chills at home. CT scan at [facility] showed distended gallbladder with mild gallbladder wall thickening with adjacent stranding, may represent cholecystitis, prominence of CBD without obstructing stone. Noted with WBC around 12, AST 131 ALT in 102. BUN 38, creatinine 1.7, unclear baseline. Lactate within normal limit, rest of chemistry unremarkable. UA negative for infection. ER team discussed with our general surgery on-call who accepted the case. She was given IV fluids there and 1 dose of Invanz IV. Patient was transferred here overnight for further evaluation management. Review of Systems Review of Systems All other systems reviewed & are negative unless noted below or in HPI [facility] Medical History Heart murmur Osteoarthritis Surgical History History of total knee arthroplasty History of carpal tunnel release H/O total shoulder replacement Family History Father Mother Social History Smoking Status: Never smoker Meds Medications and Allergies Allergies No Known Allergies Allergy (Verified 10/06/24 04:11) Home Medications acetaminophen 300 mg-codeine 30 mg tablet 1 tab PO BID PRN pain 10/06/24 [History Confirmed 10/06/24] albuterol 90 mcg/actuation aerosol inhaler 90 mcg inhalation BID 10/06/24 [History Confirmed 10/06/24] calcium 600 mg (as carbonate)-vitamin D3 5 mcg (200 unit) capsule (Calcium 600 +D(3)) 1 cap PO BID 10/06/24 [History Confirmed 10/06/24] hydrocodone 5 mg-acetaminophen 325 mg tablet 1 tab PO DAILY PRN pain 10/06/24 [History Confirmed 10/06/24] losartan 100 mg-hydrochlorothiazide 12.5 mg tablet 1 tab PO DAILY 10/06/24 [History Confirmed 10/06/24] metoprolol succinate 25 mg tablet,extended release 24 hr 25 mg PO DAILY 10/06/24[History Confirmed 10/06/24] multivitamin 1 tab PO DAILY 10/06/24 [History Confirmed 10/06/24] trazodone 50 mg tablet 50 mg PO DAILY 10/06/24 [History Confirmed 10/06/24] Exam Physical Exam Vital Signs: O2 Del Method Room Air 10/06/24 04:11 Narrative: Const General: cooperative, tired appearing, towel on her forehead HEENT Normal oropharyngeal mucosa without any ulcers or exudates Eyes: Conjunctiva normal Pulmonary Auscultation: clear to auscultation , no crackles, no wheezes Cardiovascular Rate: normal rate Rhythm: regular rhythm Heart Sounds: S1 normal, S2 normal and murmur+ GI Inspection: non-distended Palpation: RUQ tenderness. Garnica sign positive Deferred Neuro General: alert, awake and oriented x3. No obvious new focal deficit Musculoskeletal: normal range of motion Extrem General: no cyanosis, no pedal edema Psych Appearance: appropriate affect. Grossly normal Assessment & Plan Assessment/Plan (1) Acute cholecystitis: Plan -temp on arrival here 100.3F, had leukocytosis around 12 at [place] -CT AP done and reviewed, showed distended gallbladder with mild gallbladder wall thickening with adjacent stranding, may represent cholecystitis, prominenceof CBD without obstructing stone -Antiemetics IV as needed -Pain control IV as needed -Initiated IV antibiotics -NPO for now -Maintain IV hydration -BUN/Cr 38/1.7. unknown exact baseline. Monitor trend. -General surgery consulted and accepted the case. Further recs to follow DVT ppx: SCDs Diet: NPO Discussed with patient and daughter in law at bedside, all question answered. IP vs OBS Justification Based on differential dx, clinical care plan, and risk of adverse events, if untreated, in my clinical judgement this patient requires an acute care setting as: INPATIENT because of an expectation of an over 2 midnight stay. Estimated length of stay (# of days): 3 Documented By: Kimberly Sanchez MD 10/06/24 04 38 Signed By: <Electronically signed by Kimberly Sanchez MD> 10/06/24 0548 [facility] Work Phone: 1(497) 188-256607-26-2025 Evaluation note* Diagnosis Onset Date Resolution Status Admit Date Acute cholecystitis acute October 06, 2024 4:05am Acute gangrenous cholecystitis acute October 06, 2024 4:05am Heart murmur acute October 06, 2 025 4:05am Intractable right upper quad rant abdominal pain acute October 06, 2024 4:05am Leukocytosis acute October 06, 025 4:05am [facility] Work Phone: 1(552) 144-522107-26-2025 [place] [address] Hospitalist H&P Signed Patient: Radha Barraza MR#: [id number] 803 : 1945 Acct:[id number] Age/Sex: 79 / F Adm Date: 5 Loc: Room: [address] [place] [address] Type: ADM IN Attending Dr: Kimberly Sanchez MD Copies to: MD Kimberly Dumont MD~ HPI DATE OF EXAMINATION: 10/06/24 CHIEF COMPLAINT: Abd pain HISTORY OF PRESENT ILLNESS: Patient is an 79-year-old female with medical history as listed below who presented to [facility] due to abdominal pain. Patient was seen earlier yesterday morning for back pain and was treated with [place] and reports that helped with her pain however she kept having abdominal pain for which she returnto ER later yesterday and was evaluated. Reported right upper quadrant pain, worsening with inspiration, denies any nausea or vomiting or diarrhea. Denies fevers or chills at home. CT scan at [facility] showed distended gallbladder with mild gallbladder wall thickening with adjacentstranding, may represent cholecystitis, prominence of CBD without obstructing stone. Noted with WBCaround 12, AST 131 ALT in 102. BUN 38, creatinine 1.7, unclear baseline. Lactate within normal limit, rest of chemistry unremarkable. UA negative for infection. ER team discussed with our general surgery on-call who accepted the case. She was given IV fluids there and 1 dose of Invanz IV. Patient was transferred here overnight for further evaluation management. Review of Systems Review of Systems All other systems reviewed & are negative unless noted below or in HPI [facility] Medical History Heart murmur Osteoarthritis Surgical History History of total knee arthroplasty History of carpal tunnel release H/O total shoulder replacement Family History Father Mother Social History Smoking Status: Never smoker Meds Medications and Allergies Allergies No Known Allergies Allergy (Verified 10/06/24 04:11) Home Medications acetaminophen 300 mg-codeine 30 mg tablet 1 tab PO BID PRN pain 10/06/24 [History Confirmed 10/06/24] albuterol 90 mcg/actuation aerosol inhaler 90 mcg inhalation BID 10/06/24 [History Confirmed 10/06/24] calcium 600 mg (as carbonate)-vitamin D3 5 mcg (200 unit) capsule (Calcium 600 +D(3)) 1 cap PO BID 10/06/24 [History Confirmed 10/06/24] hydrocodone 5 mg-acetaminophen 325 mg tablet 1 tab PO DAILY PRN pain 10/06/24 [History Confirmed 10/06/24] losartan 100 mg-hydrochlorothiazide 12.5 mg tablet 1 tab PO DAILY 10/06/24 [History Confirmed 10/06/24] metoprolol succinate 25 mg tablet,extended release 24 hr 25 mg PO DAILY 10/06/24[History Confirmed 10/06/24] multivitamin 1 tab PO DAILY 10/06/24 [History Confirmed 10/06/24] trazodone 50 mg tablet 50 mg PO DAILY 10/06/24 [History Confirmed 10/06/24] Exam Physical Exam Vital Signs: O2 Del Method Room Air 10/06/24 04:11 Narrative: Const General: cooperative, tired appearing, towel on her forehead HEENT Normal oropharyngeal mucosa without any ulcers or exudates Eyes: Conjunctiva normal Pulmonary Auscultation: clear to auscultation , no crackles, no wheezes Cardiovascular Rate: normal rate Rhythm: regular rhythm Heart Sounds: S1 normal, S2 normal and murmur+ GI Inspection: non-distended Palpation: RUQ tenderness. Garnica sign positive Deferred Neuro General: alert, awake and oriented x3. No obvious new focal deficit Musculoskeletal: normal range of motion Extrem General: no cyanosis, no pedal edema Psych Appearance: appropriate affect. Grossly normal Assessment & Plan Assessment/Plan (1) Acute cholecystitis: Plan -temp on arrival here 100.3F, had leukocytosis around 12 at [place] -CT AP done and reviewed, showed distended gallbladder with mild gallbladder wall thickening with adjacent stranding, may represent cholecystitis, prominenceof CBD without obstructing stone -Antiemetics IV as needed -Pain control IV as needed -Initiated IV antibiotics -NPO for now -Maintain IV hydration -BUN/Cr 38/1.7. unknown exact baseline. Monitor trend. -General surgery consulted and accepted the case. Further recs to follow DVT ppx: SCDs Diet: NPO Discussed with patient and daughter in law at bedside, all question answered. IP vs OBS Justification Based on differential dx, clinical care plan, and risk of adverse events, if untreated, in my clinical judgement this patient requires an acute care setting as: INPATIENT because of an expectation ofan over 2 midnight stay. Estimated length of stay (# of days): 3 Documented By: Kimberly Sanchez MD 10/06/24 04 38 Signed By: 10/06/24 0553 [facility]07-21-2025 Telephone encounter Note* Telephone Encounter - Shari Olmos MA - 10/01/2024 12:45 PM EDT [facility] faxing over the EKG. [id number] Telephone encounter Note* Telephone Encounter - Sahri Olmos MA - 10/01/2024 12:45 PM EDT ----- Message from China Ortiz sent at 09/28/2024 10:08 AM EDT ----- Labs stable, did she complete her EKG? We should also repeat her echo as she had mild to moderate stenosis of her aortic valve and we want to make sure this is not worsening as it can be a cause of her symptoms as well ----- Message ----- From: [facility] Results In Sent: 09/27/2024 9:07 AM EDT To: China Ortiz NP [facility] [id number] Miscellaneous Notes* Telephone Encounter - Shari Olmos MA - 10/01/2024 12:45 PM EDT [facility] faxing over the EKG. * Telephone Encounter - Shari Olmos MA - 10/01/2024 12:45 PM EDT ----- Message from China Ortiz sent at 09/28/2024 10:08 AM EDT ----- Labs stable, did she complete her EKG? We should also repeat her echo as she had mild to moderate stenosis of her aortic valve and we want to make sure this is not worsening as it can be a cause of her symptoms as well ----- Message ----- From: [facility] Results In Sent: 09/27/2024 9:07 AM EDT To: China Ortiz NP * Telephone Encounter - Shari Olmos MA - 10/01/2024 12:39 PM EDT ----- Message from China Ortiz sent at 09/28/2024 10:08 AM EDT ----- Labs stable, did she complete her EKG? We should also repeat her echo as she had mild to moderate stenosis of her aortic valve and we want to make sure this is not worsening as it can be a cause of her symptoms as well ----- Message ----- From: [facility] Results In Sent: 09/27/2024 9:07 AM EDT To: China Ortiz NP * Telephone Encounter - Shari Olmos MA - 10/01/2024 12:37 PM EDT She did get the EKG done the next morning. ( Ill call them to get report)And she is agreeable to the echo if you place the order thank you! * Telephone Encounter - Shari Olmos MA - 10/01/2024 12:37 PM EDT ----- Message from China Ortiz sent at 09/28/2024 10:08 AM EDT ----- Labs stable, did she complete her EKG? We should also repeat her echo as she had mild to moderate stenosis of her aortic valve and we want to make sure this is not worsening as it can be a cause of her symptoms as well ----- Message ----- From: [facility] Results In Sent: 09/27/2024 9:07 AM EDT To: China Ortiz NP documented in this [facility]07-21-2025 Telephone encounter Note* Telephone Encounter - Shari Olmos MA - 10/01/2024 12:39 PM EDT ----- Message from China Ortiz sent at 09/28/2024 10:08 AM EDT ----- Labs stable, did she complete her EKG? We should also repeat her echo as she had mild to moderate stenosis of her aortic valve and we want to make sure this is not worsening as it can be a cause of her symptoms as well ----- Message ----- From: [facility] Results In Sent: 09/27/2024 9:07 AM EDT To: China Ortiz NP [facility] [id number] Telephone encounter Note* Telephone Encounter - Shari Olmos MA - 10/01/2024 12:37 PM EDT She did get the EKG done the next morning. ( Ill call them to get report)And she is agreeable to the echo if you place the order thank you! [facility] [id number] Telephone encounter Note* Telephone Encounter - Shari Olmos MA - 10/01/2024 12:37 PM EDT ----- Message from China Ortiz sent at 09/28/2024 10:08 AM EDT ----- Labs stable, did she complete her EKG? We should also repeat her echo as she had mild to moderate stenosis of her aortic valve and we want to make sure this is not worsening as it can be a cause of her symptoms as well ----- Message ----- From: [facility] Results In Sent: 09/27/2024 9:07 AM EDT To: China Ortiz NP [facility] [id number] History of Present illness Narrative* China Ortiz NP - 09/26/2024 2:00 PM EDTAssociated Problem(s): Stage 3b chronic kidney disease ([facility]-HCC) Orders: Comprehensive metabolic panel; Future -check renal function. Avoid nephrotoxic medications. * China Ortiz NP - 09/26/2024 2:00 PM EDTAssociated Problem(s): Pure hypercholesterolemia Orders: Lipid panel; Future -check lipid panel * China Ortiz NP - 09/26/2024 2:00 PM EDTAssociated Problem(s): Chronic obstructive pulmonary disease (HCC) -stable with inhalant therapy * China Ortiz NP - 09/26/2024 2:00 PM EDTAssociated Problem(s): Moderate aortic regurgitation -consider cardiology referral pending EKG results. * China Ortiz NP - 09/26/2024 2:00 PM EDT Images from the original note were not included. Subjective Patient ID: Radha Barraza is a 79 y.o. female who presents [...] is not under the care of a cae engineer and does notrecall undergoing an echocardiogram last year. She reports no chest pain or palpitations. Her current medication regimen includes a daily inhaler and albuterol, which she uses only during episodes ofbronchitis. She denies any swelling in her legs. [...] weight management with a goal BMI less then27 discussed. Discussed complications of uncontrolled blood pressure. Patient instructed to monitorBP's 1-2 times a week, keep a log, and bring to next visit. Barriers to care and medication compliance discussed. Patient voices understanding of meds. Stage 3b chronic kidney disease ([facility]-HCC) Orders: Comprehensive metabolic panel; Future -check [...] Chronic obstructive pulmonary disease, unspecified COPD type ([facility]) -stable with inhalant therapy Moderate aortic regurgitation [...] bronchitis. Refuses wellness today documented in this encounterSalem Memorial District [id number] History of Present illness Narrative* China Ortiz NP - 05/09/2024 10:30 AM EST Images from the original note were not included. Radha Barraza is a 79 y.o. female presents with [...] PRN atorvastatin (LIPITOR) 20 mg, Oral, Daily vdybztmryd-uwnzzoddifcen-ibmkibxa 50-325-40 MG tablet 1 tablet, Every 4 [...] nebulizer treatments as prescribed. documented in this encounterSalem Memorial District [id number] Telephone encounter Note* Telephone Encounter - Yasmin Suresh - 04/23/2024 3:36 PM EST Pt needs a confirmation of 3 mos supply sent to [facility] Fluticasone-salmeterol 250-50 mcg/act aerosol powder [facility] [id number] Miscellaneous Notes* Telephone Encounter - Yasmin Suresh - 04/23/2024 3:36 PM EST Pt needs a confirmation of 3 mos supply sent to [facility] Fluticasone-salmeterol 250-50 mcg/act aerosol powder documented in this encounterSalem Memorial District [id number] History of Present illness Narrative* Roger Vasquez DPM - 01/24/2024 1:00 PM EST Images from the original note were not included. Subjective Patient ID: Radha Barraza is a 78 y.o. female who presents [...] appearance of the toenail with topical OTC anti- fungal agents and is well satisfied. Patient reports effective resolution of hm lesion 2nd digit left foot with use of toe spacers. Medications Current Outpatient Medications: atorvastatin (Lipitor) 20 MG tablet, take 1 tablet by mouth once daily, Disp: 90 tablet, Rfl: 0 gablqogbwl-gdrgxwwvfatlu-xpqsiabg 50-325-40 MG tablet, Take 1 tablet by [...] measures: Use of current anti-fungal agent; preceded byuse of vinegar and/or Listerine as directed. Instructions on cuticle massage. Continue use of toe spacers; silicone spacer provided and fitted today. Discussed appropriate supportive footwear with inherently deeper and wider toe box. Procedure: Toenail debridement: Aseptic technique: Hand and power instrumentation: Onychodebridement in length and thickness, with curettage of any cryptotic margins, all periungual debris; providingeffective symptom and pressure relief; reducing shoe and [...] understanding. Roger Vasquez DPM documented in this [facility]11-12-2024 Instructions* Patient Instructions* Roger Vasquez DPM - 01/24/2024 1:00 PM EST As noted documented in this [facility]10-10-2024 Telephone encounter Note* Telephone Encounter - Naila Orellana MD - 12/22/2023 12:30 PM EDT Approvals with refills [facility] [id number] Miscellaneous Notes* Telephone Encounter - Naila Orellana MD - 12/22/2023 12:30 PM EDT Approvals with refills documented in this [facility]10-01-2024 Telephone encounter Note* Telephone Encounter - Olga Lidia Saucedo - 12/13/2023 10:35 AM EDT Patient called and would like an order for a mammogram sent over. Last one on 12/20/2022. Thank you [facility] [id number] Miscellaneous Notes* Telephone Encounter - Olga Lidia Saucedo - 12/13/2023 10:35 AM EDT Patient called and would like an order for a mammogram sent over. Last one on 12/20/2022. Thank you documented in this [facility]09-05-2024 Telephone encounter Note* Telephone Encounter - Shari Mckeon MD - 11/17/2023 4:48 PM EDT Refills sent. [facility] HospitalEbszxuyomz75-35-1285 Miscellaneous Notes* Telephone Encounter - Shari Mckeon MD - 11/17/2023 4:48 PM EDT Refills sent. documented in this [facility]02-14-2024 Telephone encounter Note* Telephone Encounter - Pati Valentino - 04/27/2023 1:09 PM EST Called pt and informed [facility] [id number] Miscellaneous Notes* Telephone Encounter - Pati Valentino - 04/27/2023 1:09 PM EST Called pt and informed * Telephone Encounter - Pati Valentino - 04/27/2023 12:51 PM EST Pt called stated she had LT TSA 07/26/22 and is getting a cavity filled and needs antibiotic called into [facility] in [place]. Allergies: NKDA . Her call back [phone] documented in this encounterSalem Memorial District HospitalVhfpiwyslr34-36-0869 Telephone encounter Note* Telephone Encounter - Pati Valentino - 04/27/2023 12:51 PM EST Pt called stated she had LT TSA 07/26/22 and is getting a cavity filled and needs antibiotic called into [facility] in [place]. Allergies: NKDA . Her call back [phone] [facility] [id number] Telephone encounter Note* Telephone Encounter - Shari Mckeon MD - 04/21/2023 7:05 PM EST Refills sent. [facility] [id number] Miscellaneous Notes* Telephone Encounter - Shari Mckeon MD - 04/21/2023 7:05 PM EST Refills sent. documented in this encounterSalem Memorial District HospitalCvsowrmoic31-83-5609 Note [id number]05[facility]-2023 [facility] SURGERY Clinical Discharge Summary PERSON INFORMATION Name RADHA BARRAZA Age 77 Years 1945 Sex FEMALE Language Albanian PCP SHARI MCKEON Marital Status [facility] Service Ambulatory Surgery Acct# Arrival 07/26/2022 05:52:10 Visit Reason SURGERY - LEFT REVERSE TOTAL SHOULDER - ARTHREX Acuity LOS 053 02:57 Address: [address] [facility] [address] Comment: PROVIDER INFORMATION VITALS INFORMATION Vital Sign [...] mg-5 mcg (200 intl units) oral tablet) 1tab(s) Oral 2 times a day. ferrous sulfate [...] mg-5 mcg (200 intl units) oral tablet) 1tab(s) Oral 2 times a day. ferrous sulfate [...] mg-5 mcg (200 intl units) oral tablet) 1tab(s) Oral 2 times a day. ferrous sulfate [...] mg-5 mcg (200 intl units) oral tablet) 1tab(s) Oral 2 times a day. ferrous sulfate [...] DEPART REASON INCOMPLETE INFORMATION (more content not included)...[facility] [id number] NoteOPERATIVE NOTE OPERATION DATE: 02/01/2020 PREOPERATIVE DIAGNOSIS: Dysphagia. [...] position. She was sedated by the nurse ingot buggy operator. Bite block was placed in her [...] patient tolerated the procedure without any difficulties. [facility] SIGNED AND APPROVED BY: DR CARLOS EDUARDO MENENDEZ . 02/07/2020 09:15:00[facility]* Diagnosis Essential hypertension (CMS/HCC) Unspecified essential hypertension documented in this encounter [facility]* Diagnosis S/P reverse total shoulder arthroplasty, left- Primary documented in this encounter [facility]* Diagnosis Encounter for screening mammogram for malignant neoplasm of breast- Primary documented in this encounter [facility]* Diagnosis Primary insomnia Persistent disorder of initiating or maintaining sleep documented in this encounter [facility]* Diagnosis Dermatophytosis of nail- Primary Dystrophic nail Other specified disease of nail Onychocryptosis Ingrowing nail Pain of left great toe documented in this encounter [facility]* Diagnosis Mild intermittent asthma, unspecified whether complicated ([facility]/HCC) documented in this encounter [facility]* Diagnosis Essential hypertension ([facility]) Unspecified essential hypertension documented in this encounter [facility]* Diagnosis Mild intermittent asthma, unspecified whether complicated ([facility]) documented in this encounter [facility]* Diagnosis Chronic obstructive pulmonary disease with acute exacerbation ([facility])- Primary documented in this encounter [facility]* Diagnosis Primary hypertension- Primary Unspecified essential hypertension Stage 3b chronic kidney disease ([facility]) Pure hypercholesterolemia Pure hypercholesterolemia Irregular heart beat Unspecified cardiac dysrhythmia Shortness of breath Chronic obstructive pulmonary disease, unspecified COPD type (HCC) Moderate aortic regurgitation documented in this encounter [facility]* Diagnosis Primary hypertension- Primary Unspecified essential hypertension Stage 3b chronic kidney disease ([facility]) Pure hypercholesterolemia Pure hypercholesterolemia Irregular heart beat Unspecified cardiac dysrhythmia Shortness of breath Chronic obstructive pulmonary disease, unspecified COPD type (HCC) Moderate aortic regurgitation Moderate aortic regurgitation- Primary Mild aortic stenosis Aortic valve disorders SOB (shortness of breath) Shortness of breath documented in this encounter [facility]* Diagnosis Primary hypertension- Primary Unspecified essential hypertension Stage 3b chronic kidney disease ([facility]) Pure hypercholesterolemia Pure hypercholesterolemia Irregular heart beat Unspecified cardiac dysrhythmia Shortness of breath Chronic obstructive pulmonary disease, unspecified COPD type (HCC) Moderate aortic regurgitation PVC (premature ventricular contraction) Other premature beats Acute cholecystitis- Primary documented in this encounter [facility] Discharge instructions Additional Instructions DISCHARGE INSTRUCTIONS FOR GENERAL SURGERY YOUR ACTIVITY MAY INCLUDE: - Going up and down stairs slowly. - Walking around the house or outside if the weather is satisfactory. - No driving until you are seen in office and cleared for driving. -Light housework or light work permitted in 2 weeks. -Heavy lifting permitted 4 weeks At your first office visit we will discuss: Return to work, return to sports, return to exercise, etc. WOUND CARE/INCISION CARE: -Keep incision clean and dry - Sponge bathing only while drain is in place. Showering is okay when the drain comes out, no tub baths until cleared by Dr. Warren. - Is it common to feel pulling or sharp sticking sensations in the area of incision, these sensations are a part of the normal healing process. - If you develop fever, increasing pain, redness, or swelling around the incision, please notify our office MEDICATION - Resume all previous medications that you were taking for problems unrelated to your surgery, unless informed otherwise. If there are any problems with this, please call the original prescribing doctor. If you have any other questions regarding medications, please call our office. - Over the counter medications such as Acetaminophen, Ibuprofen, Naproxen, and others may be used as directed for pain unless a prescription was provided. Empty drain every 8 hours or if all, record outputs. Call the office of Dr. Warren on Tuesday morning to get an appointment on Tuesday or for drain removal. [facility] Work Phone: Summary Purpose Family History No Family History Records Found Relationship Condition Age at Onset Recorded Date/T alana father Unknown mother Unknown Advance Directives No Advanced Directives Records Found Advance Directive Response Recorded Date/ Time Advance Directives No October 06 1:35am Chief Complaint and Reason for Visit Chief Complaint Admit Date Acute cholecystitis October 06, 2024 4:05 am Reason for Visit Admit Date Acute cholecystitis October 06, 2024 4:05 am Acute gangrenous cholecystitis September 4:05am Heart murmur October 06, 2024 4:05 am Intractable right upper quadrant abdomin al pain October 06, 2024 4:05am Leukocytosis October 06, 2024 4:05 am Additional Source Comments INFORMATION SOURCE (unrecogn ized section and content) DATE CREATED AUTHOR 05/27/2018 [facility] DATE CREATED AUTHOR AUTHOR'S ORGANIZ ATION [facility]06[facility]2020 [facility] DATE CREATED AUTHOR AUTHOR'S ORGANIZ ATION 05/12/2022 [facility] Specialist DATE CREATED AUTHOR AUTHOR'S ORGANIZ ATION 07/28/2022 [facility] DATE CREATED AUTHOR AUTHOR'S ORGANIZ ATION 03/05/2024 [facility] DATE CREATED AUTHOR AUTHOR'S ORGANIZ ATION 09/30/[address] [facility] DATE CREATED AUTHOR AUTHOR'S ORGANIZ ATION 10/12/2024 [facility] Specialists EPIC DATE CREATED AUTHOR AUTHOR'S ORGANIZ ATION 10/23/2024 [facility] Reason for Visit (unrecogniz ed section and [...] Comments Cough Reason Comments Shortness of Breath Reason Comments 1st po lap barron IP Care Teams (unrecognized sec tion and content) Replenishment Associate Relationship Specialty Start Date End Date Alexander Montemayor NP [address] [place] [address] PCP - Cristobal FIGUEROA 03/21/21 Shari Mckeon MD [address] [place] [address] PCP - General Family Medicine 07/26/22 Replenishment Associate Relationship Specialty Start Date End Date Alexander Montemayor NP [address] [place] [facility] [place] [address] PCP - Cristobal FIGUEROA 03/21/21 Shari Mckeon MD [address] [place] [facility] [place] [address] PCP - General Family Medicine 07/26/22 Replenishment Associate Relationship Specialty Start Date End Date Alexander Montemayor NP [address] [place] [address] PCP - Cristobal FIGUEROA 03/21/21 Shari Mckeon MD [address] [place] [facility] [place] [address] PCP - General Family Medicine 07/26/22 Replenishment Associate Relationship Specialty Start Date End Date Alexander Montemayor NP [address] [place] [address] PCP - Cristobal FIGUEROA 03/21/21 Shari Mckeon MD [address] [place] [address] PCP - General Family Medicine 07/26/22 Replenishment Associate Relationship Specialty Start Date End Date Alexander Montemayor NP [address] [place] [address] PCP - Cristobal FIGUEROA 03/21/21 Shari Mckeon MD [address] [place] [address] PCP - General Family Medicine 07/26/22 Replenishment Associate Relationship Specialty Start Date End Date Alexander Montemayor NP [address] [place] [address] PCP - Cristobal FIGUEROA 03/21/21 Shari cMkeon MD [address] [place] [address] PCP - General Family Medicine 07/26/22 Replenishment Associate Relationship Specialty Start Date End Date Alexander Montemayor NP [address] [place] [address] PCP - Cristobal FIGUEROA 03/21/21 Shari Mckeon MD [address] [place] [address] PCP - General Family Medicine 07/26/22 Replenishment Associate Relationship Specialty Start Date End Date Alexander Montemayor NP [address] [place] [address] PCP - Cristobal FIGUEROA 03/21/21 Shari Mckeon MD [address] [place] [address] PCP - General Family Medicine 07/26/22 Replenishment Associate Relationship Specialty Start Date End Date Alexander Montemayor NP [address] [place] [address] PCP - Cristobal FIGUEROA 03/21/21 Shari Mckeon MD [address] [place] [address] PCP - General Family Medicine 07/26/22 Replenishment Associate Relationship Specialty Start Date End Date Shari Mckeon MD [address] [place] [address] PCP - General Family Medicine 07/26/22 Replenishment Associate Relationship Specialty Start Date End Date Shari Mckeon MD [address] [place] [address] PCP - General Family Medicine 07/26/22 Replenishment Associate Relationship Specialty Start Date End Date Shari Mckeon MD [address] [place] [address] PCP - General Family Medicine 07/26/22 Replenishment Associate Relationship Specialty Start Date End Date Shari Mckeon MD [address] [facility] [place] [address] PCP - General Family Medicine 07/26/22 Replenishment Associate Relationship Specialty Start Date End Date Shari Mckeon MD [address] [facility] [place] [address] PCP - General Family Medicine 07/26/22 Replenishment Associate Relationship Specialty Start Date End Date Shari Mckeon MD [address] [place] [place] [address] PCP - General Family Medicine 07/26/22 Replenishment Associate Relationship Specialty Start Date End Date Shari Mckeon MD [address] [facility] [place] [address] PCP - General Family Medicine 07/26/22 Team Status: Active Member Role Status Dates Shari Mckeon MD Primary Care Provide r Active Team Status: Inactive Member Role Status Dates Shari Mckeon MD Primary Care Provide r Active Start: October 06, 2024 End: October 07, 2024 Kimberly Sanchez MD Admit Provider Active Sta rt: October 06, 2024 End: October 07, 2024 Chema Gupta DO Attending Provider Active Start: October 06, 2024 End: October 07, 2024 Shahriar Warren DO Other Provider Active Start: mi 2024 End: October 07, 2024 Replenishment Associate Relationship Specialty Start Date End Date Shari Mckeon MD [address] [facility] [place] [address] PCP - General Family Medicine 07/26/22 FOR [...] BE BASED ON THE PRIMARY CLINICAL RECORDS. [employer] [facility]. provides no warranty or guarantee of the accuracy or completeness of information in this document.
--- NOTE | 2024-10-25 08:41 | PM.CN ---
Consult Note: HPI Data of Consult Patient: known to practice within the last 3 years Consult date: 10/25/24 Requesting Physician: Concha Lopez NP Primary Care Provider: KELLY MCKEON Consult Narrative Reason for consult: back pain Narrative: 79yof who presents for assessment. advanced imaging completed which shows multilevel facet arthropathy in thoracic and lumbar spine. has continued to engage in a series of provider directed home exercises >6 weeks, without lasting benefit. uses otc pain meds as needed and tylenol #3 BID PRN. denies adverse med side effects. pain minimal at this time increasing to 10/10 at times with baking and cooking, notes aching pain. does not find benefit to 2 tablets of tylenol #3 prn. cc:: CC: Concha Lopez NP [facility] Medical History Osteoarthritis ?M19.90 - Unspecified osteoarthritis, unspecified site (ICD-10) Heart murmur ?R01.1 - Cardiac murmur, unspecified (ICD-10) Surgical History History of total shoulder replacement ?Z96.619 - Presence of unspecified artificial shoulder joint (ICD-10) History of total knee arthroplasty ?Z96.659 - Presence of unspecified artificial knee joint (ICD-10) History of carpal tunnel release ?Z98.890 - Other specified postprocedural states (ICD-10) Social History Little interest or pleasure in doing things: not at all Feeling down, depressed, or hopeless: not at all Meds Home Medications and Allergies Home Medications ?Medication ?Instructions ?Recorded ?Confirmed ?Type calcium 600 mg (as 1 tab PO BID 07/11/23 10/06/24 History carbonate)-vitamin D3 5 mcg (200 unit) tablet (Calcium 600 + D(3)) losartan 100 mg tablet 100 mg PO DAILY 07/11/23 10/06/24 History multivitamin-ferrous 1 tab PO DAILY 07/11/23 10/06/24 History fumarate-folic acid 18 mg-400 mcg tablet (Centrum Women) trazodone 50 mg tablet 50 mg PO DAILY 07/11/23 10/06/24 History acetaminophen 300 mg-codeine 30 mg 1 tab PO BID PRN pain #60 tabs 01/11/24 10/05/24 Rx tablet albuterol 90 mcg/actuation aerosol mcg inhalation BID 02/01/24 History inhaler acetaminophen 300 mg-codeine 30 mg 1 tab PO BID PRN pain #60 tabs 02/23/24 Rx tablet acetaminophen 300 mg-codeine 30 mg 1 tab PO BID PRN pain #60 tabs 03/28/24 10/06/24 Rx tablet acetaminophen 300 mg-codeine 30 mg 1 tab PO BID PRN pain #60 tabs 06/25/24 10/05/24 Rx tablet hydrocodone 5 mg-acetaminophen 325 1 tab PO Q6H PRN pain 5 days #15 10/05/24 10/06/24 Rx mg tablet tabs metoprolol succinate 25 mg 25 mg PO DAILY 10/05/24 10/06/24 History tablet,extended release 24 hr Allergies Allergy/AdvReac Type Severity Reaction Status Date / Time No Known Drug Allergies Allergy Verified 10/05/24 21:25 Exam Constitutional Documenting provider has reviewed patient's vital signs: yes Common normals: no apparent distress, oriented x3, healthy appearing, alert and well nourished General appearance: cooperative HENNH Common normals: normocephalic, hearing grossly normal bilaterally and moist oral mucous membranes Head and scalp: normocephalic Eye Common normals: PERRL Pupil: PERRL Neck & C-Spine Common normals: full ROM General: normal visual inspection Chest Common normals: inspection of chest normal Respiratory Common normals: normal respiratory effort, no retractions and no use of accessory muscles Back & Pelvis Thoracic spine/upper back: ROM limited, pain with ROM and thoracic spinal tenderness T-spine tenderness location: T5, T6 and T7; no paraspinal muscle spasm Other: negative facet loading no tenderness over T10-L2 facets no radiculopathy on exam strength 5/5 in BLE Neuro Common normals: oriented x3 Sensorium/orientation: alert Motor exam: strength 5/5 throughout and no movement abnormalities noted Psych Common normals: mental status grossly normal, thought process normal, cooperative, affect normal, speech normal and activity/motor behavior normal Speech: normal speech Thought process: normal thought process Results Additional Findings Additional findings: If on a controlled substance or opioids, I have checked an [place]AR[place] report on this patient and there are no aberrancies noted in the prescribing history.??If on a controlled substance or opioid a drug screen was completed and reviewed within the last year, and if there has not been a drug screen completed we ordered one today to monitor higher risk, state monitored pain medication use. As part of providing excellent, safe, comprehensive care, the following was completed at our patient's visit: 1. A medication reconciliation and review to ensure accurate knowledge of current/active medications, including asking our patients to inform us about any [id number] medications or herbal remedies/nutritional supplements/alternative remedies. 2. A review to specifically ensure our patients have had annual screening for screening for depression, screening for tobacco use, and screening for unhealthy alcohol use. For concerning screenings had a discussion with the patient, provided patient education, and recommended follow-up with primary care provider when appropriate. If patient noted with a risk of falling, they received education on strength, gait, and balance training to prevent future risk of falling. Portions of this note may have been carried over from the previous visit and updated as appropriate. Please note this office utilizes paper charting in addition to the electronic medical record. A list of current medications, vitals, and PMH is available there as the clinical staff outside of myself do not have access to [facility] charting during the clinic day operations. As part of providing quality comprehensive care the current medications, vitals, and PMH were reviewed in the paper chart. Assessment and Plan Assessment and Plan (1) Thoracic spondylosis: (2) Thoracic back pain: (3) Lumbar spondylosis: (4) Chronic use of opiate drug for therapeutic purpose: Plan risks vs benefits reviewed, dc tylenol #3 start hydrocodone-acetaminophen 5-325mg BID PRN moderate to severe pain 60 tabs to last 30 days narcan discussed and prescribed declining scs trial/implant continue trazodone 50mg HS, can discuss alternative sleep aids with PCP. cannot take benzodiazepines as discussed continue baclofen 10mg HS PRN pain/spasms f/u 1 month to evaluate medication changes
== END 2024-10-25 08:27 | disposition home or self-care (01) ==
LOC: PM 08:29
PROVIDERS: PCP Family Medicine; Visit Provider Nurse Practitioner
DX: M47.814 Spondylosis without myelopathy or radiculopathy, thoracic region (principal); M54.6 Pain in thoracic spine; M47.816 Spondylosis without myelopathy or radiculopathy, lumbar region; Z79.891 Long term (current) use of opiate analgesic
CPT/HCPCS: G0463

== ENCOUNTER 2024-11-23 08:40 | Outpatient (OUT) | payer MEDICARE, SELFPAY ==
--- OUTSIDE RECORDS SUMMARY | 2024-11-15 09:00 | XMS_ITS | Encounter Summary ---
Author Organization [facility] Address [address] [facility] [place] [address] Care Team Providers Care Wallpaper Installer Name Role Phone Shari Kay MD Primary Care Provider [phone] Reason for Referral * Cardiac Stress Testing (Routine) - Pending Review Specialty Diagnoses / Procedures Referred By Apoorva t Referred To Contact Cardiology Diagnoses PVC (premature ventricular contraction) Procedures Holter monitor - 48 hour Radha Gilmore CNP [address] [place] [address] Phone: tel: fax: Referral ID Status Reason Start Date Expiration Date V isits Requested Visits Authorized [id number] Pending Review 11/15/2024 11/15/2025 1 1 Reason for Visit * Reason Comments New Patient Heart Murmur Encounter Details Date Type Department Care Team (Late st Contact Info) Description 11/15/2024 9:00 AM EDT Office Visit [facility] at [facility] [address] [place] [address] Radha Gilmore CNP [address] [place] [address] Diastolic dysfunction (Primary Dx); Pulmonary hypertension (CMS/HCC); PVC (premature ventricular contraction); Mixed hyperlipidemia; Benign hypertensive heart disease with heart failure (CMS/HCC); Chronic obstructive pulmonary disease, unspecified COPD type (CMS/HCC); Nonrheumatic mitral valve regurgitation; Mild aortic stenosis; Moderate aortic regurgitation; Nonrheumatic tricuspid valve regurgitation Social History Tobacco Use Types Packs/Day Years Used Date Smoking Tobacco: Never Passive Smoke Exposure: Past Smokeless Tobacco: Never Tobacco Cessation:Counseling Given: Not Answered Alcohol Use Standard Drinks/Week Comments Yes 0 (1 standard drink = 0.6 oz pur e alcohol) 1.5 shots of vodka nightly Comments Unknown Sex and Gender Information Value Date Recorded Sex Assigned at Female 11/14/2024 11:08 AM EDT Legal Sex Female 11:03 PM EDT Gender Identity Female 11/14/2024 11:08 AM EDT Sexual Orientation Heterosexual or Straight 05/2024 11:08 AM EDT documented as of this encounter Last Filed Vital Signs Vital Sign Reading Time Taken Comments Blood Pressure 140/72 11/15/2024 9:07 AM EDT Pulse 63 11/15/2024 9:07 AM EDT Temperature - - Respiratory Rate - - Oxygen Saturation 97% 11/15/2024 9:07 AM EDT Inhaled Oxygen Concentration - - Weight 46.7 kg (103 lb) 11/15/2024 9:07 AM EDT Height 148.6 cm (4' 10.5 ) 11/15/2024 9:07 AM ED T Body Mass Index 21.16 11/15/2024 9:07 AM EDT documented in this encounter Patient Instructions * Patient Instructions* Radha Gilmore CNP - 11/15/2024 9:00 AM EDT *Stop losartan/hydrochlorothiazide *Start losartan 100mg daily *Start spironolactone 25mg daily *Have lab work done around 11/22/24 documented in this encounter Progress Notes * China Padilla MA - 11/15/2024 9:00 AM EDT New patient here to establish care. Self ref for MALDONADO with stairs and murmur per daughter. Had echo at [facility] a few weeks ago, and EKG in September 2024. Had recent cholecystectomy. Had lipid panel in September and PCP started her on statin. She declined to start. * Radha Gilmore, DEL - 11/15/2024 9:00 AM EDT Images from the original note were not included. Cardiovascular Medicine [facility] SUBJECTIVE Chief Complaint Patient presents with New Patient Heart Murmur HPI Radha Cuadra is a 79 y.o. female here as a new patient. Her daughter Everton is also present. PMHx: COPD, HTN, HLD, asthma, AR, MR, TR, CKD stage 3b She states she has MALDONADO for some time. Her daughter notes she has been mentioning it more frequentlyrecently. Patient states that she has hx of murmur and her PCP had been monitoring things with ECHOs. She has intermittent dizziness - she thinks this is attributed to her oxycodone. Denies c/o CP, orthopnea, PND, LE edema, palpitations, syncope. Diet: no particular diet Exercise: she walks daily, typically 20 mins a day if weather is good Tobacco: never ETOH: 1 shot of vodka a day Recreational drug use: denies Allergies[1] Problem List[2] Medical History[3] Surgical History[4] Family History[5] Social History[6] Review of Systems Constitutional: Negative for chills, decreased appetite, fever, malaise/fatigue and weight gain. Cardiovascular: Positive for dyspnea on exertion. Negative for chest pain, irregular heartbeat, legswelling, near-syncope, orthopnea, palpitations, paroxysmal nocturnal dyspnea and syncope. Hematologic/Lymphatic: Negative for bleeding problem. Does not bruise/bleed easily. Neurological: Positive for dizziness. OBJECTIVE Visit Vitals BP 140/72 (BP Location: Right arm, Patient Position: Sitting) Pulse 63 Ht 1.486 m (4' 10.5 ) Wt 46.7 kg (103 lb) SpO2 97% BMI 21.16 kg/m?? Smoking Status Never BSA 1.39 m?? Medications: Current Medications[7] Physical Exam Vitals reviewed. Constitutional: Appearance: Normal appearance. She is normal weight. HENT: Head: Normocephalic and atraumatic. Right Ear: External ear normal. Left Ear: External ear normal. Eyes: Extraocular Movements: Extraocular movements intact. Conjunctiva/sclera: Conjunctivae normal. Pupils: Pupils are equal, round, and reactive to light. Neck: Vascular: No carotid bruit. Cardiovascular: Rate and Rhythm: Normal rate and regular rhythm. Pulses: Normal pulses. Heart sounds: Murmur heard. Pulmonary: Effort: Pulmonary effort is normal. Breath sounds: Normal breath sounds. Abdominal: General: Bowel sounds are normal. Palpations: Abdomen is soft. Musculoskeletal: Cervical back: Neck supple. Right lower leg: No edema. Left lower leg: No edema. Skin: General: Skin is warm and dry. Neurological: General: No focal deficit present. Mental Status: She is alert and oriented to person, place, and time. Psychiatric: Mood and Affect: Mood normal. Behavior: Behavior normal. Thought Content: Thought content normal. Judgment: Judgment normal. Labs: 10/07/24 Cr 1.1, eGFR 51 Hgb 9.6, plt 177 09/26/2024 Chol 227, HDL 85, trig 130, LDL 117 Testing/Procedures: ECHO from [facility] 11/01/2024 Left Ventricle: Left ventricle appears normal in size. Systolic function is normal with an ejection fraction of 60-65%. The quantitative EF by 2D Lucero biplane is 65%. Aortic Valve: The aortic valve is trileaflet. The leaflets are moderately calcified. There is mild to moderate regurgitation. There is mild stenosis. The calculated aortic valve area is 1.22 cm2. The calculated aortic valve peak gradient is 32.00 mmHg. The calculated aortic valve mean gradient is 17.00 mmHg. DI 0.39. Mitral Valve: There is mild to moderate regurgitation. Tricuspid Valve: There is moderate regurgitation. RVSP calculated at 54 mmHg. There is moderate pulmonary hypertension. Left Ventricle Left ventricle appears normal in size. Wall thickness is normal. Systolic function is normal with an ejection fraction of 60-65%. The quantitative EF by 2D Lucero biplane is 65%. No obvious regionalwall motion abnormalities. Grade II diastolic dysfunction (pseudonormal) is present. Lateral E' is 9.57 cm/s. Medial E' is 6.85 cm/s. Right Ventricle Right ventricular size is mildly dilated. The right ventricular basal diameter is 43.0 mm. Normal tricuspid annular plane systolic excursion. Abnormal systolic excursion velocity by TDI (<9.5cm/s). Left Atrium Left atrium volume index is normal. The left atrial volume index is 34.5 mL/m2. Right Atrium Right atrium is mildly dilated. The right atrial area is 16.3 cm2. IVC/SVC The right atrial pressure is estimated at 8 mmHg. There is partial collapse with deep inspiration. Mitral Valve The leaflets are mildly thickened. There is mild annular calcification. There is mild to moderate regurgitation. There is no evidence of mitral valve stenosis. Tricuspid Valve The leaflets are mildly thickened. There is moderate regurgitation. There is no evidence of tricuspid valve stenosis. The right ventricular systolic pressure is moderately elevated. RVSP calculated at 54 mmHg. RVSP is based on RA pressure of 8 mmHg. There is moderate pulmonary hypertension. Aortic Valve The aortic valve is trileaflet. The leaflets are moderately calcified. There is mild to moderate regurgitation. There is mild stenosis. The calculated aortic valve area is 1.22 cm2. The calculated aortic valve peak gradient is 32.00 mmHg. The calculated aortic valve mean gradient is 17.00 mmHg. Pulmonic Valve The pulmonic valve was not well visualized. Pulmonic valve structure is grossly normal. There is trace regurgitation. There is no evidence of pulmonic valve stenosis. The peak gradient is 6.66 mmHg. The mean gradient is 3.00 mmHg. Ascending Aorta The aortic root is normal in size. Pericardium The pericardium appears normal. Study Details A complete echo was performed using complete 2D, color flow Doppler and spectral Doppler. Overall the study quality was adequate. The study was difficult due to patient's heart rhythm. BP 135/56 EKG 09/27/2024 Sinus with frequent PVCs ASSESSMENT/PLAN: Diagnosis Plan 1. Diastolic dysfunction spironolactone (Aldactone) 25 mg tablet Basic metabolic panel B-type natriuretic peptide losartan (Cozaar) 100 mg tablet 2. Pulmonary hypertension (CMS/HCC) spironolactone (Aldactone) 25 mg tablet Basic metabolic panel B-type natriuretic peptide 3. PVC (premature ventricular contraction) Holter monitor - 48 hour 4. Mixed hyperlipidemia 5. Benign hypertensive heart disease with heart failure (CMS/HCC) 6. Chronic obstructive pulmonary disease, unspecified COPD type (CMS/HCC) 7. Nonrheumatic mitral valve regurgitation 8. Mild aortic stenosis 9. Moderate aortic regurgitation 10. Nonrheumatic tricuspid valve regurgitation #Pulmonary HTN #Diastolic dysfunction #COPD -She has recently been experiencing increased MALDONADO noticed by family. -Her recent ECHO showed valvular disease along with moderately elevated right sided pressures with an RVSP of 54 and grade II diastolic dysfunction noted. This is a change from her ECHO last year. -Her sx's may very well be attributed to diastolic heart failure along with pulmonary etiology. -Will stop hydrochlorothiazide and continue losartan. Start spironolactone 25mg daily. -Follow-up BMP with BNP in 1 week. #Aortic valve disease -Mild to mod AR and mild aortic stenosis per 11/01/2024 TTE - reviewed TTE findings with pt and daughter. -Continue yearly ECHOs #Mitral valve regurg -Mild to mod MR per 11/01/24 TTE -Continue yearly ECHOs #Tricuspid valve regurg -Moderate TR per 11/01/24 TTE -Continue yearly ECHOs #PVCs -Frequent on recent EKG -She was recently started on Toprol 25mg daily. She asked about stopping and I advised she continuethis. -Will apply a holter monitor for 1 week to assess PVC burden. #HTN -Controlled for age -Stopping hydrochlorothiazide and starting spironolactone, continue Toprol and losartan #HLD -Reviewed her most recent lipid panel. Advised starting something for cholesterol but she declines. Follow up in about 1 month (around 12/15/2024). Radha Gilmore CNP [facility] [1] Allergies Allergen Reactions Alendronate Unknown [2] Patient Active Problem List Diagnosis Acute cholecystitis Age-related osteoporosis without current pathological fracture Artificial knee joint present Chronic obstructive pulmonary disease (CMS/HCC) Chronic tension-type headache Difficulty walking Heart murmur Essential hypertension Hyperlipidemia Intractable right upper quadrant abdominal pain Leukocytosis Lumbago Migraine without aura and without status migrainosus, not intractable Mild aortic stenosis Mild intermittent asthma Moderate aortic regurgitation Nonrheumatic mitral valve regurgitation Nonrheumatic tricuspid valve regurgitation Osteoarthritis of left glenohumeral joint Osteoarthritis of left knee Primary osteoarthritis of right knee Other chronic pain Other insomnia Pure hypercholesterolemia RLS (restless legs syndrome) Stage 3b chronic kidney disease (CMS/HCC) Systolic murmur [3] Past Medical History: Diagnosis Date Abnormal ECG Chronic kidney disease COPD (chronic obstructive pulmonary disease) (CMS/HCC) Hyperlipidemia Hypertension [4] Past Surgical History: Procedure Laterality Date BLADDER SURGERY CARPAL TUNNEL RELEASE CATARACT EXTRACTION CERVICAL SPINE SURGERY CHOLECYSTECTOMY ELBOW SURGERY SHOULDER SURGERY TOTAL KNEE ARTHROPLASTY [5] Family History Problem Relation Name Age of Onset No Known Problems Mother No Known Problems Father [6] Social History Tobacco Use Smoking status: Never Passive exposure: Past Smokeless tobacco: Never Substance Use Topics Alcohol use: Yes Comment: 1.5 shots of vodka nightly [7] Current Outpatient Medications: cholecalciferol (Vitamin D-3) 10 MCG (400 UNIT) tablet, Take 400 Units by mouth in the morning., Disp: , Rfl: fluticasone propion-salmeteroL (Advair Diskus) 250-50 mcg/dose diskus inhaler, INHALE 1 PUFF IN THEMORNING AND BEFORE BEDTIME, Disp: , Rfl: HYDROcodone-acetaminophen ([place]) 5-325 mg tablet, Take 1 tablet by mouth if needed in the morning and at bedtime., Disp: , Rfl: metoprolol succinate XL (Toprol-XL) 25 mg 24 hr tablet, Take 25 mg by mouth in the morning., Disp: , Rfl: oxyCODONE (Roxicodone) 5 mg immediate release tablet, Take 5 mg by mouth every 6 (six) hours if needed for moderate pain (4-7 pain score)., Disp: , Rfl: traZODone (Desyrel) 50 mg tablet, Take 50 mg by mouth at bedtime., Disp: , Rfl: losartan (Cozaar) 100 mg tablet, Take 1 tablet (100 mg) by mouth once daily as directed., Disp: 90 tablet, Rfl: 3 spironolactone (Aldactone) 25 mg tablet, Take 1 tablet (25 mg) by mouth in the morning., Disp: 30 tablet, Rfl: 11 documented in this encounter Plan of Treatment Upcoming Encounters Date Type Department Care Team (Late st Contact Info) Description 12/03/2024 11:15 AM EDT Office Visit [facility] at [facility] [address] [place] [address] Teo Burrows MD [address] [facility] [place] [id number] Scheduled Orders Name Type Priority Associated Diagnoses Orde r Schedule Holter monitor - 48 hour Cardiac Services Routine PVC (premature ventricular contraction) Ordered: 11/15/2024 Basic metabolic panel Lab Routine Diastolic dysfunction Pulmonary hypertension (CMS/HCC) Expected: 11/15/2024 (Approximate), Expires: 11/15/2025 B-type natriuretic peptide Lab Routine Diastolic dysfunction Pulmonary hypertension (CMS/HCC) Expected: 11/15/2024 (Approximate), Expires: 11/15/2025 documented as of this encounter Visit Diagnoses Diagnosis Diastolic dysfunction- Primary Unspecified heart disease Pulmonary hypertension (CMS/HCC) Other chronic pulmonary heart diseases PVC (premature ventricular contraction) Other premature beats Mixed hyperlipidemia Benign hypertensive heart disease with heart failure (CMS/HCC) Chronic obstructive pulmonary disease, unspecified COPD type (CMS/HCC) Nonrheumatic mitral valve regurgitation Mild aortic stenosis Aortic valve disorders Moderate aortic regurgitation Nonrheumatic tricuspid valve regurgitation documented in this encounter Care Teams Wallpaper Installer Relationship Specialty Start Date End Date Shari Kay MD [address] [place] [address] PCP - General Internal Medicine 10/10/24 documented as of this encounter
--- OUTSIDE RECORDS SUMMARY | 2024-11-23 08:44 | XMS_ITS | Encounter Summary ---
Author Organization [facility] Address [address] [place] [address] Care Team Providers Care Grain I Farmworker Name Role Phone Shari Kay MD Primary Care Provider [phone] Anh King LPN Unavailable [phone] Encounter Details Date Type Department Care Team (Late st Contact Info) Description 10/07/2024 Abstract [facility] Family Medicine [address] [place] [address] Shari aKy MD [address] [place] [address] Social History Tobacco Use Types [...] as of this encounter Plan of Treatment Not on file documented as of this encounter Visit Diagnoses Not on filedocumented in this encounter Additional Health Concerns Assessment Noted Time PHQ-9 Depression Total Score: 2 06/17/19 24 8:00 AM EDT documented as of this encounter Care Teams Grain I Farmworker Relationship Specialty Start Date End Date Shari Kay MD [address] [place] [address] PCP - General Family Medicine 07/26/22 Anh King LPN Licensed Practical Nurse Family Medicine 11/05/24 documented as of this encounter
--- OUTSIDE RECORDS SUMMARY | 2024-11-23 08:44 | XMS_ITS | Encounter Summary ---
Author Organization [facility] Address [address] [place] [address] Care Team Providers Care Nurse Coordinator Name Role Phone Shari Kay MD Primary Care Provider [phone] Anh King LPN Unavailable [phone] Encounter Details Date Type Department Care Team (Late st Contact Info) Description 10/09/2024 Orders Only [facility] [address] [facility] [address] [place] [address] Shahriar Warren DO [address] [facility] [address] [place] [address] Social History Tobacco Use Types [...] on file documented as of this encounter Procedures Procedure Name Priority Date/Time Associated Diagnosis Comments GENERAL PATHOLOGY Routine 10/09/2024 3:18 PM EDT documented in this encounter Results * GENERAL PATHOLOGY (10/09/2024 3:18 PM EDT) Shahriar Warren DO [facility] Final Result documented in this encounter Visit Diagnoses Not on filedocumented in this encounter Additional Health Concerns Assessment Noted Time PHQ-9 Depression Total Score: 2 06/17/19 24 8:00 AM EDT documented as of this encounter Care Teams Nurse Coordinator Relationship Specialty Start Date End Date Shari Kay MD [address] [place] [address] PCP - General Family Medicine 07/26/22 Anh King LPN Licensed Practical Nurse Family Medicine 11/05/24 documented as of this encounter
--- OUTSIDE RECORDS SUMMARY | 2024-11-23 08:44 | XMS_ITS | Encounter Summary ---
Author Organization [facility] Address [address] [place] [address] Care Team Providers Care Internet Project Manager Name Role Phone Shari Kay MD Primary Care Provider [phone] Anh King LPN Unavailable Encounter Details Date Type Department Care Team (Late st Contact Info) Description 10/07/2024 Abstract [facility] Family Medicine [address] [place] [address] Shari Kay MD [address] [place] [address] Social History Tobacco Use Types [...] documented as of this encounter Care Teams Internet Project Manager Relationship Specialty Start Date End Date Shari Kay MD [address] [place] [address] PCP - General Family Medicine 07/26/22 Anh King LPN Licensed Practical Nurse Family Medicine 11/05/24 documented as of this encounter
--- OUTSIDE RECORDS SUMMARY | 2024-11-23 08:44 | XMS_ITS | Encounter Summary ---
Author Organization [facility] Address [address] [place] [address] Care Team Providers Care Lockstitch Hemmer Name Role Phone Shari Kay MD Primary Care Provider [phone] Anh King LPN Unavailable Encounter Details Date Type Department Care Team (Late st Contact Info) Description 10/07/2024 Abstract [facility] Family Medicine [address] [place] [address] Shari Kay MD [address] [place] [address] Social History Tobacco Use Types [...] documented as of this encounter Care Teams Lockstitch Hemmer Relationship Specialty Start Date End Date Shari Kay MD [address] [place] [address] PCP - General Family Medicine 07/26/22 Anh King LPN Licensed Practical Nurse Family Medicine 11/05/24 documented as of this encounter
--- OUTSIDE RECORDS SUMMARY | 2024-11-23 08:44 | XMS_ITS | Encounter Summary ---
Author Organization [facility] Address [address] [place] [address] Care Team Providers Care Business Process Associate Name Role Phone Shari Kay MD Primary Care Provider Anh King LPN Unavailable [phone] Encounter Details Date Type Department Care Team (Late st Contact Info) Description 10/07/2024 Abstract [facility] Family Medicine [address] [place] [address] Shari Kay MD [address] [place] [address] Social History Tobacco Use Types [...] as of this encounter Care Teams Business Process Associate Relationship Specialty Start Date End Date Shari Kay MD [address] [place] [address] PCP - General Family Medicine 07/26/22 Anh King LPN Licensed Practical Nurse Family Medicine 11/05/24 documented as of this encounter
--- OUTSIDE RECORDS SUMMARY | 2024-11-23 08:45 | XMS_ITS | Encounter Summary ---
Author Organization [facility] Address [address] [place] [address] Care Team Providers Care Slip Cover Operator Name Role Phone Tamara Aparicio MENTAL TESTER Unavailable Shari Kay MD Primary Care Provider [phone] Anh King LPN Unavailable [phone] Reason for Visit * Reason Comments Med Refill Encounter Details Date Type Department Care Team (Late st Contact Info) Description 03/19/2024 Refill [facility] Family Medicine [address] [place] [address] Shari Kay MD [address] [place] [address] Essential hypertension Social History Tobacco [...] documented in this encounter Plan of Treatment Not on file documented as of this encounter Visit Diagnoses Diagnosis Essential hypertension Unspecified essential hypertension documented in this encounter Additional Health Concerns Assessment Noted Time PHQ-9 Depression Total Score: 2 06/17/19 24 8:00 AM EDT documented as of this encounter Care Teams Slip Cover Operator Relationship Specialty Start Date End Date Tamara Aparicio NP [address] [address] PCP - Cristobal FIGUEROA 03/21/21 06/11/24 Shari Kay MD [address] [place] [address] PCP - General Family Medicine 07/26/22 Anh King LPN Licensed Practical Nurse Family Medicine 11/05/24 documented as of this encounter
--- OUTSIDE RECORDS SUMMARY | 2024-11-23 08:45 | XMS_ITS | Encounter Summary ---
Author Organization [facility] Address [address] [place] [address] Care Team Providers Care Devops Engineer Name Role Phone Tamara Aparicio STORAGE CONSULTANT Unavailable [phone] Shari Kay MD Primary Care Provider [phone] Anh King LPN Unavailable [phone] Encounter Details Date Type Department Care Team (Late st Contact Info) Description 07/11/2023 Abstract [facility] [address] [place] [address] Shari Kay MD [address] [place] [address] Social History Tobacco Use Types [...] documented as of this encounter Care Teams Devops Engineer Relationship Specialty Start Date End Date Tamara Aparicio NP [address] [facility] [address] [place] [address] PCP - Cristobal FIGUEROA 03/21/21 06/11/24 Shari Kay MD [address] [place] [address] PCP - General Family Medicine 07/26/22 Anh King LPN Licensed Practical Nurse Family Medicine 11/05/24 documented as of this encounter
--- OUTSIDE RECORDS SUMMARY | 2024-11-23 08:45 | XMS_ITS | Clinical Summary ---
Author Organization [facility] Address [address] [place] [address] Care Team Providers Care Clinical Manager Home Care Name Role Phone Shari Kay MD Primary Care Provider [phone] Allergies Active Allergy Reactions Criticality Noted Date Comments Alendronate Unknown 09/10/2020 Medications cholecalciferol (Vitamin D-3) 10 MCG (400 UNIT) tablet Take 400 Units by mouth in the morning. Active HYDROcodone-acet aminophen ([place]) 5-325 mg tablet Take 1 tablet by mouth if needed in the morning and at bedtime. Active fluticasone propion-salmeter oL (Advair Diskus) 250-50 mcg/dose diskus inhaler INHALE 1 PUFF IN THE MORNING AND BEFORE BEDTIME Active metoprolol succinate XL (Toprol-XL) 25 mg 24 hr tablet Take 25 mg by mouth in the morning. 5 Active traZODone (Desyrel) 50 mg tablet Take 50 mg by mouth at bedtime. 4 Active oxyCODONE (Roxicodone) 5 mg immediate release tablet Take 5 mg by mouth every 6 (six) hours if needed for moderate pain (4-7 pain score). Active spironolactone (Aldactone) 25 mg tabletIndication s:Diastolic dysfunction,Pulm onary hypertension (CMS/HCC) Take 1 tablet (25 mg) by mouth in the morning. 30 tablet 11 5 11/16/19 26 Active losartan (Cozaar) 100 mg tabletIndication s:Diastolic dysfunction Take 1 tablet (100 mg) by mouth once daily as directed. 90 tablet 3 5 11/16/19 26 Active losartan-hydroch lorothiazide (Hyzaar) 100-12.5 mg tablet Take 1 tablet by mouth in the morning. 9 11/16/19 25 Discontinu ed(Med List Cleanup) Active Problems Problem Noted Date Diagnosed Date Heart murmur 11/15/2024 Acute cholecystitis 10/08/2024 Intractable right upper quadrant abdominal pain 10/08/2024 Leukocytosis 10/08/2024 Lumbago 10/08/2024 Hyperlipidemia 08/03/2022 Other chronic pain 08/03/2022 Age-related osteoporosis wit hout current pathological fracture 07/15/2022 Artificial knee joint present 07/15/2022 Difficulty walking 07/15/2022 Essential hypertension 07/15/2022 Migraine without aura and wi thout status migrainosus, not intractable 07/15/2022 Mild aortic stenosis 07/15/2022 Moderate aortic regurgitation 07/15/2022 Nonrheumatic mitral valve regurgitation 07/16/19 Nonrheumatic tricuspid valve regurgitation 07/15 Osteoarthritis of left glenohumeral joint 2022 Other insomnia 07/15/2022 Pure hypercholesterolemia 07/15/2022 RLS (restless legs syndrome) 07/15/2022 Stage 3b chronic kidney disease 07/15/2022 Systolic murmur 07/15/2022 Primary osteoarthritis of right knee 07/26/2018 Chronic tension-type headache 10/06/2017 Osteoarthritis of left knee 06/22/2017 Mild intermittent asthma 06/12/2017 Chronic obstructive pulmonary disease 05/18/2011 Encounters Date Type Department Care Team Description 11/15/2024 9:00 AM EDT Office Visit [facility] [place] [facility] [address] [place] [address] Radha Gilmore CNP Diastolic dysfunction (Primary Dx); Pulmonary hypertension (CMS/HCC); PVC (premature ventricular contraction); Mixed hyperlipidemia; Benign hypertensive heart disease with heart failure (CMS/HCC); Chronic obstructive pulmonary disease, unspecified COPD type (CMS/HCC); Nonrheumatic mitral valve regurgitation; Mild aortic stenosis; Moderate aortic regurgitation; Nonrheumatic tricuspid valve regurgitation from Last 3 Months Family History Medical History Relation Name Comments No Known Problems Father No Known Problems Mother Relation Name Status Comments Father Mother Social History Tobacco Use Types Packs/Day Years [...] Heterosexual or Straight 05/2024 11:08 AM EDT Last Filed Vital Signs Vital Sign Reading [...] Mass Index 21.16 11/15/2024 9:07 AM EDT Plan of Treatment Upcoming Encounters Date Type Department Care Team (Late st Contact Info) Description 12/03/2024 11:15 AM EDT Office Visit [facility] [address] [place] [address] Teo Burrows MD [address] [place] [address] [facility] [place] [address] Health Maintenance Due Date Last Done Comments Medicare Annual Wellness (AWV) 1945 Depression Screening 1957 Fall Risk Screening 2009 COVID-19 Vaccine ( season) 2024 12/23/2022, 03/30/2022, 01/08/2021, Additional history exists Influenza [...] on patient's age to complete this topic Insurance [employer] Care Teams Clinical Manager Home Care Relationship Specialty Start Date End Date Shari Kay MD [address] [place] [address] PCP - General Internal Medicine 10/10/24
--- OUTSIDE RECORDS SUMMARY | 2024-11-23 08:45 | XMS_ITS | Clinical Summary ---
Author Organization [facility] Address [address] [place] [address], [address] [place] [address] Care Team Providers Care Digital Marketing Manager Name Role Phone Unavailable Primary Care Provider [...]
--- OUTSIDE RECORDS SUMMARY | 2024-11-23 08:45 | XMS_ITS | Encounter Summary ---
Author Organization [facility] Address [address] [place] [address] Care Team Providers Care Labor Employment Associate Name Role Phone Shari Kay MD Primary Care Provider [phone] Anh King LPN Unavailable [phone] Encounter Details Date Type Department Care Team (Late st Contact Info) Description 10/25/2024 Abstract [facility] Family Medicine [address] [place] [address] Shari Kay MD [address] [place] [address] Social History Tobacco Use Types [...] documented as of this encounter Care Teams Labor Employment Associate Relationship Specialty Start Date End Date Shari Kay MD [address] [place] [address] PCP - General Family Medicine 07/26/22 Anh King LPN Licensed Practical Nurse Family Medicine 11/05/24 documented as of this encounter
--- OUTSIDE RECORDS SUMMARY | 2024-11-23 08:45 | XMS_ITS | Clinical Summary ---
Author Organization [facility] Address [id number] [address] [place] [address] Care Team Providers Care Talent Development Specialist Name Role Phone Shari Kay MD Primary Care Provider [phone] Allergies No known active allergies Medications topiramate [...] Encounters Date Type Department Care Team Description 11/01/2024 7:30 AM EDT - 11/01/2024 11:59 PM EDT Hospital Encounter [facility] - Cardi[facility] [address] [place] [id number] Moderate aortic regurgitation; Mild aortic stenosis; SOB (shortness of breath) Discharge Disposition: Home 11/01/2024 Travel 09/27/2024 6:30 AM EDT - 09/27/2024 11:59 PM EDT Hospital Encounter [facility] - Cardi[facility] [address] [place] [id number] HTN (hypertension); Irregular heartbeat; Shortness of breath [...] 1957 Fall Risk Screening 2009 COVID-19 Vaccine (2023-2 5 season) 2023 12/23/2022, 03/30/2022, 01/08/2021, Additional history exists Influenza Vaccine 11/12/2024 01/05/2024, , 12/01/2021, Additional history exists DTaP,Tdap and Td Vaccines (2 - Td or Tdap) 11/18/2026 11/18/2016 Zoster (Shingles) Vaccine Completed 2019, 11/13/2019, 11/12/2019 Medical Devices Implanted Type Area Fuel Storage Technician Device Identifier Shelf Expiration Date Model / Serial / Lot Cement Bn [place] Radpq 40g Rpl [id number] - Sna - [id number] Implanted:Qt y: 1 on 06/22/2017 by Ede Ramos DO at [facility] Cement Left: Knee [employer] 02/10/2022 [id number] 1 / NA / [id number] Cmnt Bn Bio 40gm Rpl [id number] - Sna - [id number] Implanted:Qt y: 1 on 07/26/2018 by Ede Ramos DO at [facility] Cement Right: Knee [employer] 08/11/2022 [id number] / NA / [id number] Ins Tib C 8mm Kn Lt Mdl - Sna - [id number] Implanted:Qt y: 1 on 06/22/2017 by Ede Ramos DO at [facility] Orthopedic Implant Left: Knee [employer] [id number] 11/11/2021 [id number] / NA / [id number] Cmpt Fem 1 Kn Lt Mdl Persona - Sna - [id number] Implanted:Qt y: 1 on 06/22/2017 by Ede Ramos DO at [facility] Orthopedic Implant Left: Knee [employer] [id number] 06/11/2026 [id number] / NA / [id number] Cmpt Fem 2 Kn Persona Strl - Sna - [id number] Implanted:Qt y: 1 on 07/26/2018 by Ede Ramos DO at [facility] Orthopedic Implant Right: Knee [employer] 07/11/2026 [id number] 2 / NA / [id number] Ins Tib D 8mm Kn Rt Mdl - Sna - [id number] Implanted:Qt y: 1 on 07/26/2018 by Ede Ramos DO at [facility] Orthopedic Implant Right: Knee [employer] 08/11/2021 [id number] 8 / NA / [id number] Bsplt Tib C Kn Lt Mdl Persona - Sna - [id number] Implanted:Qt y: 1 on 06/22/2017 by Ede Ramos DO at [facility] Plate Left: Knee [employer] 12/11/2026 [id number] / NA / [id number] Bsplt Tib D Kn Persona Strl - Sna - [id number] Implanted:Qt y: 1 on 07/26/2018 by Ede Ramos DO at [facility] Plate Right: Knee [employer] 09/10/2026 [id number] 2 / NA / [id number] Tip Insrtr Persona Brng Disp - Sna - [id number] Implanted:Qt y: 1 on 06/22/2017 by Ede Ramos DO at [facility] Left: Knee [employer] 12/11/2021 [id number] 1 / NA / [id number] Explanted Type Area Fuel Storage Technician Device Identifier Shelf Expiration Date Model / Serial / Lot Scr Gd 27mm Mqd Spr Hex Hd - Sna - [id number] Explanted:Qty: 1 on 06/22/2017 by Ede Ramos DO at [facility] Screw Left: Knee [employer] [id number] 09/10/2026 [id number] / NA / [id number] Scr Gd 48mm Qd-Spr Kn Hd Mis - Sna - [id number] Explanted:Qty: 1 on 06/22/2017 by Ede Ramos DO at [facility] Screw Left: Knee [employer] [id number] 06/12/2027 [id number] / NA / [id number] Scr Gd 48mm Qd-Spr Kn Hd Mis - Sna - [id number] Explanted:Qty: 1 on 06/22/2017 by Ede Ramos DO at [facility] Screw Left: Knee [employer] [id number] 06/12/2027 [id number] / NA / [id number] Scr Gd 48mm Qd-Spr Hex Hd Mis - Sna - [id number] Explanted:Qty: 2 on 07/26/2018 by Ede Ramos DO at [facility] Screw Right: Knee [employer] 06/11/2028 [id number] / NA / [id number] Scr Gd 33mm Hex Hd Mis - Sna - [id number] Explanted:Qty: 1 on 07/26/2018 by Ede Ramos DO at [facility] Screw Right: Knee [employer] 01/12/2028 [id number] / NA / [id number] Procedures Procedure Name Priority Date/Time Associated Diagnosis Comments ECHO COMPLETE WO CONTRAST Routine 11/01/2024 8:12 AM EDT Moderate aortic regurgitation Mild aortic stenosis SOB (shortness of breath) ECG 12-LEAD Routine 09/27/2024 6:48 AM EDT HTN (hypertension) Irregular heartbeat Shortness of breath from Last 3 Months Results * Echo complete W/O contrast (11/01/2024 8:12 AM EDT) LVOT stroke volume 94.56 ml XCELERA LV Systolic Volume 26.40 mL XCELERA EF 65 % XCELERA FS 39 28 - 44 % XCELERA LV Diastolic Volume 75.60 mL XCELERA LVIDd 4.10 cm XCELERA LVIDs 2.50 cm XCELERA IVS 0.80 0.6 - 1.1 cm XCELERA PW 0.90 0.6 - 1.1 cm XCELERA LVOT diameter 2.00 cm XCELERA TDI 9.57 cm/s XCELERA MV TDI E' (medial) 6.85 cm/s XCELERA LA Volume Index 34.5 mL/m2 XCELERA E/A ratio 0.90 XCELERA E wave deceleration time 183.00 msec XCELERA MV Peak E Daniel 87.30 cm/s XCELERA MV Peak A Daniel 97.40 cm/s XCELERA LA size 3.80 cm XCELERA Aortic root 2.40 cm XC[facility]A LA volume 51.50 cm3 XCELERA RV diastolic dimension (basal) 43.0 mm XC[facility]ERA RVID d 3.6 cm [facility]A TAPSE 1.83 cm XCELERA AV peak daniel 282.00 cm/s XCELERA LVOT peak daniel 1.16 m/s XCELERA AV VTI 77.60 cm X[facility]A LVOT peak VTI 30.10 cm XCELERA AV mean gradient 17.00 mmHg XCELERA AV peak gradient 32.00 mmHg X[facility]A AI pressure 1/2 time 507 ms XC[facility]A AV valve area 1.22 cm2 X[facility]A Valve area - Index 0.9 XC[facility]A MV pressure 1/2 time 54.00 ms XCELERA MV valve area p 1/2 method 4.07 cm2 XCELERA TR Peak Daniel 3.4 m/s XCELERA TR peak gradient 43.56 mmHg XCELERA PV mean gradient 3.00 mmHg X[facility]A PV peak gradient 6.66 mmHg [facility]A LV ESV A2C 64.10 mL [facility]A LV ESV A4C 38.30 mL [facility]A LV RWT 2D 43.90 [facility]A Echo EF Estimated 65 % [facility] AV Velocity Ratio 0.41 X[facility]A Left Ventricle Mass 105.44444 [id number] 3 g XCELERA Interventricular Septum Diastolic Thickness by 2D 8 cm XCEL[facility]A RA 2D Volume 32.0 mL/m2 XCELERA Est. RA pressure 8 mmHg XCELERA RA area 16.3 cm2 XCELERA RV Peak Systolic Pressure 54 mmHg XCELERA Anatomical Region Laterality Modality Chest N/A Ultrasound Narrative 11/01/2024 12:46 PM EDT Left Ventricle: Left ventricle appears normal in [...] 2D Lucero biplane is 65%. No obvious regional wall motion abnormalities. Grade II diastolic dysfunction (pseudonormal) [...] due to patient's heart rhythm. BP 135/56 Wall Scoring Baseline Score Index: 1.00 The left ventricular wall motion is normal. [place] Plascencia Diana ACID RECOVERY OPERATOR-EARTH BORING MACHINE OPERATOR CV ECHO ORDERABLES Barbara l Result * ECG 12 lead (09/27/2024 6:48 AM EDT) 09/27/2024 6:48 AM EDT Narrative TRACEMASTERVUE - 10/04/2024 8:50 AM EDT [place] Plascencia Chloemariama ACID RECOVERY OPERATOR-EARTH BORING MACHINE OPERATOR ECG ORDERABLES Final R esult TRACEMASTERVUE from Last 3 Months Insurance * Guarantor: Radha Cuadra Account Type Relation to Patient Date of Phone Billing Address Personal/Family Self 1945 [address] [place] [address] [employer] Care Teams Talent Development Specialist Relationship Specialty Start Date End Date Shari Kay MD [address] [place] [address] PCP - General Family Medicine 06/03/17
--- OUTSIDE RECORDS SUMMARY | 2024-11-23 08:45 | XMS_ITS | Clinical Summary ---
Author Organization [facility] Address [address] [place] [address] Care Team Providers Care [employer] Principal Name Role Phone Shari Kay MD Primary Care Provider [phone] Anh King LPN Unavailable [phone] Allergies Active Allergy Reactions Criticality Noted Date Comments Alendronate Unknown 09/10/2020 Medications CALCIUM-VITAMIN D PO in the morning and before bedtime. 3 Active butalbital-acetami nophen-caffeine 50-325-40 MG tablet Take 1 tablet by mouth every 4 (four) hours if needed (headache) Active Multiple Vitamin (multivitamin) capsule Take 1 capsule by mouth Daily Active atorvastatin (Lipitor) 20 MG tabletIndications: Mixed hyperlipidemia take 1 tablet by mouth once daily 90 tablet 4 Active traZODone (Desyrel) 50 MG tabletIndications: Primary insomnia Take 1 tablet (50 mg) by mouth at bedtime 90 tablet 11 4 Active Fluticasone-Salmet harriett 250-50 MCG/ACT aerosol powderIndications: Mild intermittent asthma, unspecified whether complicated (HCC) Inhale 1 puff in the morning and 1 puff before bedtime. 180 each 1 5 Active acetaminophen-code ine (Tylenol w/ Codeine #3) 300-30 MG tablet Take 1 tablet by mouth as needed in the morning and 1 tablet as needed in the evening. 5 Active ondansetron (Zofran) 4 MG tablet Take 4 mg by mouth Daily as needed 5 Active furosemide (Lasix) 20 MG tablet Take 20 mg by mouth Daily as needed (leg swelling) 5 Active HYDROcodone-acetam inophen ([place]) 5-325 MG tablet Take 1 tablet by mouth every 6 (six) hours if needed for moderate pain or severe pain 5 Active albuterol HFA 90 mcg/act inhaler Inhale 2 puffs 2 (two) times a day as needed for wheezing or shortness of breath 5 Active metoprolol succinate XL (Toprol-XL) 25 MG 24 hr tabletIndications: PVC (premature ventricular contraction) TAKE 1 TABLET (25 MG) BY MOUTH DAILY DO NOT CRUSH OR CHEW. 90 tablet Active losartan-hydroCHLO ROthiazide (Hyzaar) 100-12.5 MG tabletIndications: Essential hypertension TAKE 1 TABLET BY MOUTH EVERY DAY IN THE MORNING 100 tablet 5 Active Active Problems Problem [...] murmur 07/15/2022 Nonrheumatic aortic valve insufficiency 07/10/19 20 Chronic tension-type headache 10/06/2017 Mild intermittent asthma [...] Date Type Department Care Team Description 11/15/2024 Patient Outreach [facility] [address] [place] [address] Anh King, SOCK FOLDER 11/05/2024 Telephone [facility] [address] [facility] [place] [address] Shari Olmos MA 11/02/2024 9:30 AM EDT Office Visit [facility] [address] [place] [address] Shahriar Warren, Acute cholecystitis (Primary Dx) 11/02/2024 Travel 10/29/2024 Patient Outreach [facility] [address] [place] [address] Anh King, SOCK FOLDER 10/25/2024 Abstract [facility] [address] [facility] [place] [address] Shari Kay MD 10/22/2024 Patient Outreach [facility] [address] [place] [address] Anh King, SOCK FOLDER 10/22/2024 Refill [facility] [address] [facility] [place] [address] China Ortiz NP PVC (premature ventricular contraction); Essential hypertension 10/18/2024 Travel 10/15/2024 Patient Outreach [facility] [address] [place] [address] Anh King, SOCK FOLDER 10/10/2024 11:15 AM EDT Office Visit [facility] [address] [place] [address] [phone] Shahriar Warren, Acute cholecystitis (Primary Dx) 10/10/2024 Travel 10/09/2024 Orders Only [facility] [address] [place] [address] Shahriar Warren, 10/08/2024 Patient Outreach [facility] [address] [place] [address] Shana Gatica RN 10/08/2024 Telephone [facility] [address] [facility] [place] [address] Shari Olmos MA 10/08/2024 Travel 10/07/2024 Abstract [place] [address] [facility] [address] Shari Kay MD 10/07/2024 Abstract [place] [address] [facility] [place] [address] Shari Kay MD 10/07/2024 Abstract [place] [address] [facility] [place] [address] Shari Kay MD 10/07/2024 Abstract [place] [address] [facility] [place] [address] Shari Kay MD 10/07/2024 External Result Encounter [facility] Unsolicited Shahriar Warren, DO 10/07/2024 External Result Encounter [facility] External Department Unsolicited Shahriar Warren, DO 09/28/2024 Results Follow-Up [place] [address] [facility] [place] [address] China Ortiz NP CBC and differential, Comprehensive metabolic panel, Lipid panel 09/26/2024 2:00 PM EDT Office Visit [place] [address] [facility] [place] [address] China Ortiz NP Primary hypertension (Primary Dx); Stage 3b chronic kidney disease (CMS-HCC); Pure hypercholesterolemia ; Irregular heart beat; Shortness of breath; Chronic obstructive pulmonary disease, unspecified COPD type (HCC); Moderate aortic regurgitation; PVC (premature ventricular contraction) 09/26/2024 Bamboo flowsheet [facility] [address] [facility] [place] [address] China Ortiz NP 09/26/2024 Travel from Last [...] - - Weight 48.5 kg (107 lb) 11/02/2024 9:31 AM EDT Height 149.9 cm (4' 11 ) 11/02/2024 9:31 AM EDT Body Mass Index 21.61 11/02/2024 9:31 AM EDT Plan of Treatment Health Maintenance Due Date Last Done Comments Influenza Vaccine (#1) 2024 , 12/23/2022, 12/01/2021, [...] - 25 mg/dL 10/07/2024 5:39 AM EDT [facility] Other Topography unknown / Unknown 10/07/2024 4:53 AM EDT 10/07/2024 5:10 AM EDT Shahriar Warren DO LAB BODY FLUIDS AND STOOLS ANDREW JURADO Final Result Performing Organization Address City/State/[facility] Co de Phone Number [facility] [address] [place] [address], [facility] [address] [place] [address] * (ABNORMAL) CBC auto differential (10/07/2024 4:53 AM EDT) WBC 8.5 3.8 - 11.6 [CFU]/mL 10/07/2024 5:21 AM EDT [facility] UNCORRECTED WHITE BLOOD COUNT 8.5 3.8 - 11.6 10*3/uL 10/07/2024 5:21 AM EDT [facility] RBC 3.01(L) 3.60 - 5.00 10*6/uL 10/07/2024 5:21 AM EDT [facility] HEMOGLOBIN 9.6(L) 11.8 - 15.4 g/dL 10/07/2024 5:21 AM EDT [facility] HEMATOCRIT 28.5(L) 34.0 - 46.4 % 10/07/2024 5:21 AM EDT [facility] MCV 94.6 80 - 100 fL 10/07/2024 5:21 AM EDT [facility] MCH 31.8 24.7 - 34.3 pg 10/07/2024 5:21 AM EDT [facility] MCHC 33.6 32.0 - 35.0 g/dL 10/07/2024 5:21 AM EDT [facility] RED CELL DISTRIBUTION WIDTH, RDW 13.5 11.9 - 15.3 % 10/07/2024 5:21 AM EDT [facility] PLATELET COUNT 177 150 - 450 10*3/uL 10/07/2024 5:21 AM EDT [facility] MEAN PLATELET VOLUME, MPV 8.8 6.3 - 10.7 fL 10/07/2024 5:21 AM EDT [facility] NEUTROPHILS, % 84.8 . % 10/07/2024 5:21 AM EDT [facility] LYMPHOCYTES, % 9.4 . % 10/07/2024 5:21 AM EDT [facility] MONOCYTE/MACROPHA GE, % 4.2 . % 10/07/2024 5:21 AM EDT [facility] EOSINOPHILS, % 1.3 . % 10/07/2024 5:21 AM EDT [facility] BASOPHILS, % 0.3 . % 10/07/2024 5:21 AM EDT [facility] NRBC 0.0 0 - 0.5 /100{WBC} 10/07/2024 5:21 AM EDT [facility] NEUTROPHILS 7.2 1.8 - 7.7 10*3/uL 10/07/2024 5:21 AM EDT [facility] LYMPHOCYTES 0.8(L) 1.00 - 4.8 10*3/uL 10/07/2024 5:21 AM EDT [facility] MONOCYTES 0.4 0.0 - 0.8 10*3/uL 10/07/2024 5:21 AM EDT [facility] EOSINOPHILS 0.1 0.0 - 0.45 10*3/uL 10/07/2024 5:21 AM EDT [facility] BASOPHILS 0.0 0.0 - 0.2 10*3/uL 10/07/2024 5:21 AM EDT [facility] Blood (Blood) 10/07/2024 4:5 3 AM EDT 10/07/2024 5:10 AM EDT Shahriar Warren DO LAB BLOOD ORDERABLES Final Resu lt Performing Organization Address City/[facility]/ZIP Co de Phone Number [facility] [address] [place] [address], [facility] [address] [place] [address] * Creatinine (10/07/2024 4:53 AM EDT) CREATININE 1.10 0.60 - 1.20 mg/dL 10/07/2024 5:39 AM EDT [facility] ESTIMATED GFR 50.796 10/07/2024 5:39 AM EDT [facility] CREATININE CLR [facility] 29.30 10/07/2024 5:39 AM EDT [facility] Other Topography unknown / Unknown 10/07/2024 4:53 AM EDT 10/07/2024 5:10 AM EDT Shahriar Warren DO LAB BLOOD ORDERABLES Final Resu lt Performing Organization Address City/[facility]/ZIP Co de Phone Number [facility] [address] [place] [address], [facility] [address] [place] [address] * Bilirubin, total and direct (10/07/2024 4:53 AM EDT) BILIRUBIN,TOTAL 0.3 0.3 - 1.0 mg/dL 10/07/2024 5:39 AM EDT [facility] BILIRUBIN,DIREC T 0.10 0.03 - 0.18 mg/dL 10/07/2024 5:39 AM EDT [facility] BILIRUBIN,INDIR ECT 0.2 mg/dL 10/07/2024 5:39 AM EDT [facility] Other Topography unknown / Unknown 10/07/2024 4:53 AM EDT 10/07/2024 5:10 AM EDT us Shahriar Warren DO LAB BLOOD ORDERABLES Final Resu lt [facility] [address] [place] [address], [facility] [address] [place] [address] * CBC and differential (09/26/2024 2:29 PM [...] Performing Organization Information Site ID: QPT Name: [employer] [employer] [facility] Address: [address] [place] [address], [address] [place] [phone] Director: Manuel Conley MD China Ortiz NP LAB BLOOD ORDERABLES Final Resu lt [facility] * (ABNORMAL) Lipid panel (09/26/2024 2:29 PM EDT) CHOLESTEROL, TOTAL 227(H) <200 mg/dL [facility] HDL CHOLESTEROL 85 > OR = 50 mg/dL [facility] TRIGLYCERIDES 130 <150 mg/dL [facility] LDL CHOLESTEROL 117(H) mg/dL (calc) [facility] Comment: Reference range: <100 Desirable range <100 mg/dL for primary prevention; <70 mg/dL for patients with CHD or diabetic patients with > or = 2 CHD risk factors. LDL-C is now calculated using the Sherman calculation, which is a validated novel method providing better accuracy than the Friedewald equation in the estimation of LDL-C. Aakash OVALLE et al. TAD. 2013;310(19): 3174-6388 (http://education.[employer]/faq/UTX296) CHOL/HDLC RATIO 2.7 <5.0 (calc) [facility] NON [...] Performing Organization Information Site ID: QPT Name: [facility] Address: [address] [place] [address], [address] [place] [phone] Director: Manuel Conley MD China Ortiz NP LAB BLOOD ORDERABLES Final Resu lt Performing Organization Address City/[facility]/ZIP Co de Phone Number [facility] * (ABNORMAL) [...] Performing Organization Information Site ID: QPT Name: [facility] [employer] [facility] Address: [address] [place] [address], [address] [place] [phone] Director: Manuel Conley MD China Ortiz NP LAB BLOOD ORDERABLES Final Resu [facility] from Last 3 Months Insurance [facility] MEDICARE ADVANTAGE Care Teams Secondary School Principal Relationship Specialty Start Date End Date Shari Kay MD [address] [place] [address] PCP - General Family Medicine 07/26/22 Anh King LPN Licensed Practical Nurse Family Medicine 11/05/24
--- OUTSIDE RECORDS SUMMARY | 2024-11-23 08:45 | XMS_ITS | Encounter Summary ---
Author Organization [facility] Address [address] [place] [address] Care Team Providers Care Public Policy Mediator Name Role Phone Tamara Aparicio GENERAL CONTRACTOR Unavailable [phone] Shari Kay MD Primary Care Provider [phone] Anh King LPN Unavailable [phone] Encounter Details Date Type Department Care Team (Late st Contact Info) Description 08/19/2022 Abstract [facility] [address] [place] [address] Shari Kay MD [address] [place] [address] Social History Tobacco Use Types [...] on filedocumented in this encounter Care Teams Public Policy Mediator Relationship Specialty Start Date End Date Tamara Aparicio NP [address] [place] [address] PCP - Cristobal FIGUEROA 03/21/21 06/11/24 Shari Kay MD [address] [place] [address] PCP - General Family Medicine 07/26/22 Anh King LPN Licensed Practical Nurse Family Medicine 11/05/24 documented as of this encounter
--- OUTSIDE RECORDS SUMMARY | 2024-11-23 08:45 | XMS_ITS | Encounter Summary ---
Author Organization [facility] Address [address] [place] [address] Care Team Providers Care Airport Refueling Handler Name Role Phone Tamara Aparicio FOUR H AGENT Unavailable [phone] Shari Kay MD Primary Care Provider [phone] Anh King LPN Unavailable [phone] Reason for Visit * Reason Comments Med Refill Encounter Details Date Type Department Care Team (Late st Contact Info) Description 08/24/2022 Refill [facility] [address] [place] [address] Ede Ramos DO [address] [place] [address] Social History Tobacco Use Types Packs/Day Years [...] on filedocumented in this encounter Care Teams Airport Refueling Handler Relationship Specialty Start Date End Date Tamara Aparicio NP [address] [facility] [address] [place] [address] PCP - Cristobal FIGUEROA 03/21/21 06/11/24 Shari Kay MD [address] [place], [place] [id number] PCP - General Family Medicine 07/26/22 Anh King LPN Licensed Practical Nurse Family Medicine 11/05/24 documented as of this encounter
--- OUTSIDE RECORDS SUMMARY | 2024-11-23 08:45 | XMS_ITS | CCD ---
Author Organization [facility] CliniSyaz Care Team Providers Care Industrial Design Intern Name Role Phone PHYSICIAN, DEFAULT Admitting Unavailable [...] Consulting Unavailable MIKE, DR MENDOZA Consulting Unavailable MIEK, DR MENDOZA Attending Unavailable MIKE, DR MENDOZA [...] Care Unavailable MIKE, SHARI Amaral Consulting Unavailable Ede Ramos Admitting Unavail able Ede Ramos Attending Unavail able SHARI MCKEON Primary Care Unavailable Ede Ramos Admitting Unavail able Ede Ramos Attending Unavail able Alessandra FLOORING INSTALLER, Tamara Plascencia Unavailable Shari Mckeon MD Primary Care Provider Jovi JAIMES, Kei Brian Attending Unavailable Jovi JAIMES, Kei Brian Attending Unavailable Giedraitis , Andrius Snehal Attending Unavailable Giedraitis , Andrius Snehal Attending Unavailable Giedraitis , Andrius Snehal Attending Unavailable Giedraitis , Andrius Snehal Attending Unavailable Giedraitis , Andrius Emmaytkristin Attending Unavailable Giedraitis , Andrius Snehal Attending Unavailable Giedraitis , Andrius Snehal Attending Unavailable Giedraitis , Andrius Snehal Attending Unavailable Shari Michel MD Primary Care Pr ovider Kimberly Sanchez MD Admit Provider Chema Gupta DO Attending Provider Shahriar Warren DO Provider Kimberly Sanchez Admitting Unavailable Shari Michel Primary Care Un available Shahriar Warren Consulting Unavailable Chema Gupta Attending UnavailSHARI Reyes Referring Unavailable SHARI MCKEON Primary Care Unavailable CHINA ORTIZ Referring Unavailable SHARI MCKEON Primary Care Unavailable CHINA ORTIZ Attending Unavailable CHINA ORTIZ Attending Unavailable SHAHRIAR WARREN Attending Unavailable SHAHRIAR WARREN Attending Unavailable SHARI MCKEON Referring Unavailable ROGER VASQUEZ Attending Unavailable RAMIRO PAVON Attending Unavailable Allergies Allergy Classification Reported Allergen(s) Allergy Type Date of Onset Reaction(s) Facility (2 sources) Alendronate; Translations: [Fosamax] Drug Allergy [facility] Repository (20 sources) Alendronate; Translations: [ALENDRONATE] Drug Allergy 09-10-2020 Unknown [facility] Medications [...] / codeine phosphate 30 mg oral tablet (14 sources) Opioid Agonist Start: 03-28-2024 acetaminophen-co deine [...] / HYDROcodone bitartrate 5 mg oral tablet (5 sources) Opioid Agonist Start: 10-06-2024 take 1 tablet by mouth once daily as needed for pain Hydrocodone-Acetaminophen 5-325 mg tablet Active 1 TAB PO Daily as needed for pain October 06, 2024 12:00am Complies with drug therapy Start: 10-05-2024 take 1 tablet by abhinav th every six hours as needed for pain and pain HYDROcodone-acetaminophen ([place]) 5-325 MG tablet Take 1 tablet by mouth every 6 (six) hours if needed for moderate pain or severe pain 10/05/2024 Active [id number] 200 actuat albuterol 0.09 mg/actuat metered dose inhaler (4 sources) beta2-Adrenergic Agonist Start: 10-06-2024 take 2 [...] each 1 02/07/2024 Active Start: 04-08-2023 End: 04-25-2024 take 1 puff(s) by inhalation in the morning Fluticasone-Salmeterol 250-50 MCG/ACT aerosol powder Indications: Mild intermittent asthma, unspecified whether complicated (CMS/HCC) Inhale 1 puff in the morning and 1 puff before bedtime. 60 each 0 04/08/2023 07/07/2023 Active furosemide 20 mg oral tablet (5 sources) Loop Diuretic Start: 10-07-2024 take 1 tablet by mouth every twenty-four hours as needed furosemide (Lasix) 20 MG tablet Take 20 mg by mouth Daily as needed (leg swelling) 10/07/2024 Active hydroCHLOROthiazide 12.5 mg / losartan potassium 100 mg oral tablet (20 sources) Thiazide Diuretic, Angiotensin 2 Receptor Aguilar Start: 10-22-2024 take 1 tablet by mouth once daily in the morning losartan-hydroCH LOROthiazide (Hyzaar) 100-12.5 MG tablet Indications: Essential hypertension TAKE 1 TABLET BY MOUTH EVERY DAY IN THE MORNING 100 tablet 10/22/2024 Active Start: 10-06-2024 take 1 tablet by abhinav th once daily Losartan-Hydrochlorothiazide 100-12.5 mg tablet Active 1 TAB PO [...] succinate 25 mg extended release oral tablet (7 sources) beta-Adrenergic Aguilar Start: 10-22-2024 take 1 tablet by mouth once daily metoprolol succinate XL (Toprol-XL) 25 MG 24 hr tablet Indications: PVC (premature ventricular contraction) TAKE 1 TABLET (25 MG) BY MOUTH DAILY DO NOT CRUSH OR CHEW. 90 tablet 10/22/2024 Active Start: 10-03-2024 take 1 tablet by abhinav th once daily metoprolol succinate XL (Toprol-XL) 25 [...] drug therapy ondansetron 4 mg oral tablet (13 sources) Serotonin-3 Receptor Antagonist Start: 04-24-2024 take [...] Problem Date Documented Date Episodic/Chronic Abdominal pain (7 sources) Right upper quadrant pain; Translations: [Right upper quadrant pain] Onset: 10-06-2024 10-06-2024 Episodic Asthma (20 sources) Mild intermittent asthma; Translations: [Mild intermittent asthma with status asthmaticus] Onset: 06-12-2017 Resolved: 06-17-2023 07-15-2022 Chronic Biliary tract disease (13 sources) Acute cholecystitis; Translations: [Acute cholecystitis] Onset: 10-06-2024 10-06-2024 Episodic Cardiac dysrhythmias (5 sources) Irregular heart beat; Translations: [Cardiac arrhythmia, unspecified] Onset: 09-27-2024 09-26-2024 Chronic Chronic kidney disease (20 sources) Chronic kidney disease stage 3B ; Translations: [Stage 3b chronic kidney disease (HCC)] Onset: 07-15-2022 07-15-2022 Chronic Chronic obstructive pulmonary disease and bronchiectasis (20 sources) Chronic obstructive pulmonary disease, unspecified; Translations: [Chronic obstructive lung disease] Onset: 05-18-2011 07-15-2022 Chronic Diseases of white blood cells (7 sources) Leukocytosis; Translations: [Elevated white blood cell [...] Onset: 11-04-2017 Resolved: 06-17-2023 07-15-2022 Chronic Other and ill-defined heart disease (2 sources) Other ill-defined heart diseases; Translations: [Other ill-defined heart diseases] Onset: 11-15-2024 Chronic Other connective tissue disease (20 sources) [...] Onset: 09-30-2020 Episodic Other lower respiratory disease (4 sources) Dyspnea; [...] Ingrowing nail; Translations: [Ingrowing nail] 01-24-2024 Episodic Pulmonary heart disease (2 sources) Pulmonary hypertension, unspecified; Translations: [Pulmonary hypertension, unspecified] Onset: 11-15-2024 Chronic Residual codes; unclassified (20 sources) Insomnia; Translations: [Other insomnia] Onset: 07-15-2022 07-15-2022 Chronic Spondylosis; intervertebral disc disorders; other back problems (5 sources) Low back pain; Translations: [Low back pain] Onset: 10-08-2024 10-07-2024 Episodic Unclassified (1 source) Call office on Tuesday to schedule follow-up with Dr. Warren on Tuesday or for drain removal. Unclassified (1 source) Call office on Tuesday to schedule follow-up with your Primary Care Provider within 3-5 days of discharge. 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; Translations: [OTH CUSTODIAL CURRENT DRUG THERAPY] Onset: 02-14-2020 Episodic Other aftercare (1 source) middle or intermediate school principal (current) use of aspirin; Translations: [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 MECHANIC CURRENT USE OF ASPIRIN] Onset: 01-04-2020 Episodic [...] Test Name Value Interpretation Reference Range Facility 37on 11-15-2024 37 *Stop losartan/hydrochlorothiazid e *Start losartan 100mg daily *Start spironolactone 25mg daily *Have lab work done around 11/22/24 Normal [facility] Office Visiton 11-15-2024 Follow-up visit [id number] Radha Barraza 1945 F Date Provider Department Center 11/15/2024 RAMIRO WILSON [facility] Family History Problem Relation Age of Onset No Known Problems Mother No Known Problems Father Family Status - Relation Status Age at Mother Father Level of Service:[address] [place] OFFICE/OUTPATIENT NEW MODERATE MDM 45 MINUTES Reason for Visit and Comments: New Patient [632] Heart Murmur [124] Normal [facility] Basophils [#/volume] in Bloo d by Automated countOrdered By: Shahriar Warren on 10-07-2024 Basophils (Bld) [#/Vol] 0.0 10*3/uL Normal 0.0-0.2 [facility] Comment on above: Result Comment: PERF ORMED BY: [place] [address] PATHOLOGIST NEWSPAPER DELIVERER SHERMAN AUGUSTIN M.D. Performed By: #### B ILTD, CREAT, CBC, BUN #### [address] Basophils/100 leukocytes in Blood by Automated countOrdered By: Shahriar Warren on 10-07-2024 Basophils/100 WBC (Bld) 0.3 % Normal . [facility] Comment on above: Performed By: #### B ILTD, CREAT, CBC, BUN #### [address] Bilirubin, Total and Directo n 10-07-2024 Bilirubin,Indirect 0.2 mg/dL Normal [facility] Comment on above: Result Comment: PERF ORMED BY: [place] [address] PATHOLOGIST NEWSPAPER DELIVERER SHERMAN AUGUSTIN M.D. Performed By: #### B ILTD, CREAT, CBC, BUN #### [address] Bilirubin.indirect [Mass/Vol] 0.10 mg/dL Normal 0.03-0.18 [facility] Comment on above: Performed By: #### B ILTD, CREAT, CBC, BUN #### [address] Bilirubin, total and directo n 10-07-2024 Bilirubin [Mass/Vol] 0.3 mg/dL 0.3 - 1 .0 mg/dL [facility] Bilirubin.indirect [Mass/Vol] 0.1 mg/dL 0.03 - 0.18 mg/dL [facility] Magnesium [Mass/Vol] 0.2 mg/dL [facility] Bilirubin.direct [Mass/volum e] in Serum or PlasmaOrdered By: Shahriar Warren on 10-07-2024 Bilirubin.direct [Mass/Vol] 0.10 mg/dL 0.03-0.18 [facility] Bilirubin.total [Mass/volume ] in Serum or PlasmaOrdered By: Shahriar Warren on 10-07-2024 Bilirubin [Mass/Vol] 0.3 mg/dL Normal 0.3-1.0 [facility] Comment on above: Performed By: #### B ILTD, CREAT, CBC, BUN #### [facility] [address] [id number] [facility] CBC W Auto Differential pane l (Bld)on 10-07-2024 Basophils (Bld) [#/Vol] 0 10*3/uL 0.0 - 0.2 10*3/uL [facility] Basophils/100 WBC Manual cnt (Syn fld) 0.3 % . [facility] Eosinophils (Bld) [#/Vol] 0.1 10*3/uL 0.0 - 0.45 10*3/uL [facility] Eosinophils/100 WBC Manual cnt (Syn fld) 1.3 % . [facility] Erythrocyte distribution width (RBC) [Ratio] 13.5 % 11.9 - 15.3 % [facility] Hematocrit (Bld) [Volume fraction] 28.5 % Low 34.0 - 46.4 % [facility] Hemoglobin (Bld) [Mass/Vol] 9.6 g/dL Low 11.8 - 15.4 g/dL [facility] Interpretation and review of laboratory results Abnormal [facility] Lymphocytes (Bld) [#/Vol] 0.8 10*3/uL Low 1.00 - 4.8 10*3/uL [facility] Lymphocytes/100 WBC Manual cnt (Syn fld) 9.4 % . [facility] MCH (RBC) [Entitic mass] 31.8 pg 24.7 - 34.3 pg [facility] MCHC (RBC) [Mass/Vol] 33.6 g/dL 32.0 - 35.0 g/dL [facility] MCV (RBC) [Entitic vol] 94.6 fL 80 - 100 [facility] Monocytes (Bld) [#/Vol] 0.4 10*3/uL 0.0 - 0.8 10*3/[facility]L [facility] Monocytes+Macrophages/ 100 WBC Manual cnt (Syn fld) 4.2 % . [facility] Neutrophils (Bld) [#/Vol] 7.2 10*3/uL 1.8 - 7.7 10*3/uL [facility] Neutrophils/100 WBC Manual cnt (Syn fld) 84.8 % . [facility] NRBC 0 /100{WBC} 0 - 0.5 /100{WBC} [facility] Platelet mean volume (Bld) [Entitic vol] 8.8 fL 6.3 - 10.7 fL [facility] Platelets (Bld) [#/Vol] 177 10*3/uL 150 - 450 10*3/uL [facility] RBC LM.HPF (Urine sed) [#/Area] 3.01 10*6/uL Low 3.60 - 5.00 10*6/uL [facility] WBC (Bld) [#/Vol] 8.5 10*3/uL 3.8 - 11.6 10*3/uL [facility] WBC LM.HPF (Urine sed) [#/Area] 8.5 [CFU]/mL 3.8 - 11.6 [CFU]/mL [facility] Complete Blood Count Auto Di ffon 10-07-2024 Mean Corpuscular HGB Conc 33.6 g/dL Normal 32.0-35.0 [facility] Comment on above: Performed By: #### B ILTD, CREAT, CBC, BUN #### [facility] [address] NRBC% 0.0 /100{WBC} Normal 0-0.5 [facility] Comment on above: Performed By: #### B ILTD, CREAT, CBC, BUN #### [facility] [address] White Blood Count 8.5 [CFU]/mL Normal 3.8-11.6 [facility] Comment on above: Performed By: #### B ILTD, CREAT, CBC, BUN #### [facility] [address] [id number] [place] Creatinineon 10-07-2024 Creatinine Clr Calc Pharmacy 29.30 Normal [facility] Comment on above: Performed By: #### B ILTD, CREAT, CBC, BUN #### [facility] [address] [place] [address] [place] GFR/1.73 sq M.predicted MDRD (S/P/Bld) [Vol rate/Area] 50.796 mL/min/{1.73_m2} Normal [facility] Comment on above: Performed By: #### B ILTD, CREAT, CBC, BUN #### [address] Creatinine [Mass/Vol]on 09-12 Creatinine (U) [Mass/Vol] 1.1 mg/dL 0.60 - 1.20 mg/dL [facility] CREATININE CLR CALC PHARMACY 29.3 [facility] GFR/1.73 sq M.predicted MDRD (S/P/Bld) [Vol rate/Area] 50.796 mL/min/{1.73_m2} [facility] Creatinine [Mass/volume] in Serum or PlasmaOrdered By: Shahriar Warren on 10-07-2024 Creatinine [Mass/Vol] 1.10 mg/dL Normal 0.60-1.20 [facility] Comment on above: Performed By: #### B ILTD, CREAT, CBC, BUN #### [address] Eosinophils [#/volume] in Bl ood by Automated countOrdered By: Shahriar Warren on 10-07-2024 Eosinophils (Bld) [#/Vol] 0.1 10*3/uL Normal 0.0-0.45 [facility] Comment on above: Performed By: #### B ILTD, CREAT, CBC, BUN #### [place] [address] [place] Eosinophils/100 leukocytes i n Blood by Automated countOrdered By: Shahriar Warren on 10-07-2024 Eosinophils/100 WBC (Bld) 1.3 % Normal . [facility] Comment on above: Performed By: #### B ILTD, CREAT, CBC, BUN #### [address] Erythrocyte distribution wid th [Ratio] by Automated countOrdered By: Shahriar Warren on 10-07-2024 Erythrocyte distribution width (RBC) [Ratio] 13.5 % Normal 11.9-15.3 [facility] Comment on above: Performed By: #### B ILTD, CREAT, CBC, BUN #### [facility] [address] Erythrocytes [#/volume] in B lood by Automated countOrdered By: Shahriar Warren on 10-07-2024 RBC (Bld) [#/Vol] 3.01 10*6/uL Low 3.60-5.00 [facility] Comment on above: Performed By: #### B ILTD, CREAT, CBC, BUN #### [address] Hematocrit [Volume Fraction] of Blood by Automated countOrdered By: Shahriar Warren on 10-07-2024 Hematocrit (Bld) [Volume fraction] 28.5 % Low 34.0-46.4 [facility] Comment on above: Performed By: #### B ILTD, CREAT, CBC, BUN #### [facility] [address] [place] [address] Hemoglobin [Mass/volume] in BloodOrdered By: Shahriar Warren on 10-07-2024 Hemoglobin (Bld) [Mass/Vol] 9.6 g/dL Low 11.8-15.4 [facility] Comment on above: Performed By: #### B ILTD, CREAT, CBC, BUN #### [facility] [address] [place] [address] Leukocytes [#/volume] correc marvel for nucleated erythrocytes in Blood by Automated counOrdered By: Shahriar Warren on 10-07-2024 WBC corrected for nucl RBC Auto (Bld) [#/Vol] 8.5 10*3/uL 3.8-11.6 [facility] Leukocytes [#/volume] in Blo od by Automated countOrdered By: Shahriar Warren on 10-07-2024 WBC (Bld) [#/Vol] 8.5 10*3/uL Normal 3.8-11.6 [facility] Comment on above: Performed By: #### B ILTD, CREAT, CBC, BUN #### [facility] [address] [place] [address] Lymphocytes [#/volume] in Bl ood by Automated countOrdered By: Shahriar Warren on 10-07-2024 Lymphocytes (Bld) [#/Vol] 0.8 10*3/uL Low 1.00-4.8 [facility] Comment on above: Performed By: #### B ILTD, CREAT, CBC, BUN #### [facility] [address] Lymphocytes/100 leukocytes i n Blood by Automated countOrdered By: Shahriar Warren on 10-07-2024 Lymphocytes/100 WBC (Bld) 9.4 % Normal . [facility] Comment on above: Performed By: #### B ILTD, CREAT, CBC, BUN #### [facility] [address] MCH [Entitic mass] by Automa marvel countOrdered By: Shahriar Warren on 10-07-2024 MCH (RBC) [Entitic mass] 31.8 pg Normal 24.7-34.3 [facility] Comment on above: Performed By: #### B ILTD, CREAT, CBC, BUN #### [facility] [address] [place] [address] MCHC Auto (RBC) [Mass/Vol]Or dered By: Shahriar Warren on 10-07-2024 MCHC (RBC) [Mass/Vol] 33.6 g/dL 32.0-35.0 [facility] MCV [Entitic volume] by Auto mated countOrdered By: Shahriar Warren on 10-07-2024 MCV (RBC) [Entitic vol] 94.6 fL Normal 80-100 [facility] Comment on above: Performed By: #### B ILTD, CREAT, CBC, BUN #### [facility] [address] Monocytes [#/volume] in Bloo d by Automated countOrdered By: Shahriar Warren on 10-07-2024 Monocytes (Bld) [#/Vol] 0.4 10*3/uL Normal 0.0-0.8 [facility] Comment on above: Performed By: #### B ILTD, CREAT, CBC, BUN #### [facility] [address] Monocytes/100 leukocytes in Blood by Automated countOrdered By: Shahriar Warren on 10-07-2024 Monocytes/100 WBC (Bld) 4.2 % Normal . [facility] Comment on above: Performed By: #### B ILTD, CREAT, CBC, BUN #### [facility] [address] Neutrophils [#/volume] in Bl ood by Automated countOrdered By: Shahriar Warren on 10-07-2024 Neutrophils (Bld) [#/Vol] 7.2 10*3/uL Normal 1.8-7.7 [facility] Comment on above: Performed By: #### B ILTD, CREAT, CBC, BUN #### [address] Neutrophils/100 leukocytes i n Blood by Automated countOrdered By: Shahriar Warren on 10-07-2024 Neutrophils/100 WBC (Bld) 84.8 % Normal . [facility] Comment on above: Performed By: #### B ILTD, CREAT, CBC, BUN #### [address] No Panel Informationon 10-07 [facility] No Panel InformationOrdered By: Shahriar Warren on 10-07-2024 Estimated GFR (CKD-EPI) 50.796 mL/Min [facility] Creatinine Clearance (Chem 29.30 [facility] Nucleated erythrocytes [Pres ence] in Blood by Automated countOrdered By: Shahriar Warren on 10-07-2024 Nucleated RBC Auto Ql (Bld) 0.0 /100{WBC} 0-0.5 [facility] Platelet mean volume [Entiti c volume] in Blood by Automated countOrdered By: Shahriar Warren on 10-07-2024 Platelet mean volume (Bld) [Entitic vol] 8.8 fL Normal 6.3-10.7 [facility] Comment on above: Performed By: #### B ILTD, CREAT, CBC, BUN #### [facility] [address] Platelets [#/volume] in Bloo d by Automated countOrdered By: Shahriar Warren on 10-07-2024 Platelets (Bld) [#/Vol] 177 10*3/uL Normal 150-450 [facility] Comment on above: Performed By: #### B ILTD, CREAT, CBC, BUN #### [facility] [address] Serum or plasma non-glucuron idated bilirubin measurement (mass/volume)Ordered By: Shahriar Warren on 10-07-2024 Bilirubin.indirect [Mass/Vol] 0.2 mg/dL [facility] Urea nitrogen [Mass/volume] in Serum or PlasmaOrdered By: Shahriar Warren on 10-07-2024 Urea nitrogen [Mass/Vol] 20 mg/dL Normal 7-25 [facility] Comment on above: Performed By: #### B ILTD, CREAT, CBC, BUN #### [address] Urea nitrogen, body fluidon 10-07-2024 Urea nitrogen [Mass/Vol] 20 mg/dL 7 - 25 mg/dL [facility] Alanine aminotransferase [En zymatic activity/volume] in Serum or PlasmaOrdered By: Kimberly Sanchez on 10-06-2024 ALT [Catalytic activity/Vol] 119 U/L High 7-52 [facility] Comment on above: Performed By: #### B ILTD, LIPID, LIPASE, CBC, PT, CMP, DELMI #### [facility] [address] [place] [address] Albumin [Mass/volume] in Ser um or Plasma by Bromocresol green (BCG) dye binding methoOrdered By: Kimberly Sanchez on 10-06-2024 Albumin BCG dye [Mass/Vol] 3.3 g/dL Low 3.5-5.7 [facility] Alkaline phosphatase [Enzyma tic activity/volume] in Serum or PlasmaOrdered By: Kimberly Sanchez on 10-06-2024 ALP [Catalytic activity/Vol] 93 U/L Normal 34-104 [facility] Comment on above: Performed By: #### B ILTD, LIPID, LIPASE, CBC, PT, CMP, DELMI #### [facility] [address] Amylase [Enzymatic activity/ volume] in Serum or PlasmaOrdered By: Shahriar Warren on 10-06-2024 Amylase [Catalytic activity/Vol] 41 U/L Normal 29-103 [facility] Comment on above: Performed By: #### B ILTD, LIPID, LIPASE, CBC, PT, CMP, DELMI #### [facility] [address] Aspartate aminotransferase [ Enzymatic activity/volume] in Serum or PlasmaOrdered By: Kimberly Sanchez on 10-06-2024 AST [Catalytic activity/Vol] 161 U/L High 13-39 [facility] Comment on above: Performed By: #### B ILTD, LIPID, LIPASE, CBC, PT, CMP, DELMI #### [facility] [address] Bilirubin, Total and Directo n 10-06-2024 Bilirubin,Indirect 0.3 mg/dL Normal [facility] Comment on above: Performed By: #### B ILTD, LIPID, LIPASE, CBC, PT, CMP, DELMI #### [facility] [address] Bilirubin.indirect [Mass/Vol] 0.30 mg/dL High 0.03-0.18 [facility] Comment on above: Performed By: #### B ILTD, LIPID, LIPASE, CBC, PT, CMP, DELMI #### [facility] [address] Calcium [Mass/volume] in Ser um or PlasmaOrdered By: Kimberly Sanchez on 10-06-2024 Calcium [Mass/Vol] 8.5 mg/dL Low 8.6-10.3 [facility] Comment on above: Performed By: #### B ILTD, LIPID, LIPASE, CBC, PT, CMP, DELMI #### [facility] [address] Carbon dioxide, total [Moles /volume] in Serum or PlasmaOrdered By: Obtonedarosalind Koehleromar on 10-06-2024 CO2 [Moles/Vol] 25.1 mmol/L Normal 21.0-31.0 [facility] Comment on above: Performed By: #### B ILTD, LIPID, LIPASE, CBC, PT, CMP, DELMI #### [facility] [address] [place] [address] [place] Chloride [Moles/volume] in S neva or PlasmaOrdered By: Obtonedarosalind Koehleromar on 10-06-2024 Chloride [Moles/Vol] 101 mmol/L Normal 98-107 [facility] Comment on above: Performed By: #### B ILTD, LIPID, LIPASE, CBC, PT, CMP, DELMI #### [facility] [address] Cholesterol [Mass/volume] in Serum or PlasmaOrdered By: Obtonedarosalind Koehleromar on 10-06-2024 Cholesterol [Mass/Vol] 145 mg/dL Normal 140-200 [facility] Comment on above: Chol less than 200 m g/dl low riskChol 201-239 mg/dl borderline riskChol 240 mg/dl and greater high risk Result Comment: Chol less than 200 mg/dl low risk Chol 201-239 mg/dl borderline risk Chol 240 mg/dl and greater high risk Performed By: #### B ILTD, LIPID, LIPASE, CBC, PT, CMP, DELMI #### [facility] [address] Performed By: #### B ILTD, CREAT, CBC, BUN #### [facility] [address] [place] [address] [place] Cholesterol in HDL [Mass/vol ume] in Serum or PlasmaOrdered By: Obtonedah Rodoomar on 10-06-2024 Cholesterol in HDL [Mass/Vol] 71 mg/dL Normal 23-92 [facility] Comment on above: HDL CHOL ATP-III CLA SSIFICATION Cardiovascular RiskHDL > or equal to 60 mg/dL LOWHDL < 40 mg/dL HIGH Result Comment: HDL CHOL ATP-III CLASSIFICATION Cardiovascular Risk HDL > or equal to 60 mg/dL LOW HDL < 40 mg/dL HIGH Performed By: #### B ILTD, LIPID, LIPASE, CBC, PT, CMP, DELMI #### [facility] [address] Performed By: #### B ILTD, CREAT, CBC, BUN #### [facility] [address] Cholesterol in LDL Calc [Mas s/Vol]Ordered By: Obtonedarosalind Koehleromar on 10-06-2024 Cholesterol in LDL [Mass/Vol] 59 mg/dL 0-100 [facility] Comment on above: LDL ATP III CLASSIFI CATIONLDL less than 100 mg/dL OptimalLDL 100-129 mg/dL Near or above optimalLDL 130-159 mg/dL Borderline highLDL 160-189 mg/dL HighLDL greater than 189 mg/dL Very high Cholesterol in VLDL Calc [Ma ss/Vol]Ordered By: Carlitosdarosalind Sanchez on 10-06-2024 Cholesterol in VLDL [Mass/Vol] 14 mg/dL [facility] Complete Blood Count Auto Di ffon 10-06-2024 Basophils (Bld) [#/Vol] 0.0 10*3/uL Normal 0.0-0.2 [facility] Comment on above: Result Comment: PERF ORMED BY: [place] [address] PATHOLOGIST NEWSPAPER DELIVERER SHERMAN AUGUSTIN M.D. Performed By: #### B ILTD, LIPID, LIPASE, CBC, PT, CMP, DELMI #### [address] Basophils/100 WBC (Bld) 0.2 % Normal . [facility] Comment on above: Performed By: #### B ILTD, LIPID, LIPASE, CBC, PT, CMP, DELMI #### [facility] [address] Eosinophils (Bld) [#/Vol] 0.0 10*3/uL Normal 0.0-0.45 [facility] Comment on above: Performed By: #### B ILTD, LIPID, LIPASE, CBC, PT, CMP, DELMI #### [address] Eosinophils/100 WBC (Bld) 0.2 % Normal . [facility] Comment on above: Performed By: #### B ILTD, LIPID, LIPASE, CBC, PT, CMP, DELMI #### [address] Erythrocyte distribution width (RBC) [Ratio] 13.4 % Normal 11.9-15.3 [facility] Comment on above: Performed By: #### B ILTD, LIPID, LIPASE, CBC, PT, CMP, DELMI #### [address] Hematocrit (Bld) [Volume fraction] 34.3 % Normal 34.0-46.4 [facility] Comment on above: Performed By: #### B ILTD, LIPID, LIPASE, CBC, PT, CMP, DELMI #### [address] Hemoglobin (Bld) [Mass/Vol] 11.5 g/dL Low 11.8-15.4 [facility] Comment on above: Performed By: #### B ILTD, LIPID, LIPASE, CBC, PT, CMP, DELMI #### [address] Lymphocytes (Bld) [#/Vol] 0.7 10*3/uL Low 1.00-4.8 [facility] Comment on above: Performed By: #### B ILTD, LIPID, LIPASE, CBC, PT, CMP, DELMI #### [address] Lymphocytes/100 WBC (Bld) 6.6 % Normal . [facility] Comment on above: Performed By: #### B ILTD, LIPID, LIPASE, CBC, PT, CMP, DELMI #### [address] MCH (RBC) [Entitic mass] 31.6 pg Normal 24.7-34.3 [facility] Comment on above: Performed By: #### B ILTD, LIPID, LIPASE, CBC, PT, CMP, DELMI #### [address] MCV (RBC) [Entitic vol] 94.8 fL Normal 80-100 [facility] Comment on above: Performed By: #### B ILTD, LIPID, LIPASE, CBC, PT, CMP, DELMI #### [address] Mean Corpuscular HGB Conc 33.4 g/dL Normal 32.0-35.0 [facility] Comment on above: Performed By: #### B ILTD, LIPID, LIPASE, CBC, PT, CMP, DELMI #### [address] Monocytes (Bld) [#/Vol] 0.4 10*3/uL Normal 0.0-0.8 [facility] Comment on above: Performed By: #### B ILTD, LIPID, LIPASE, CBC, PT, CMP, DELMI #### [address] Monocytes/100 WBC (Bld) 3.9 % Normal . [facility] Comment on above: Performed By: #### B ILTD, LIPID, LIPASE, CBC, PT, CMP, DELMI #### [address] Neutrophils (Bld) [#/Vol] 9.9 10*3/uL High 1.8-7.7 [facility] Comment on above: Performed By: #### B ILTD, LIPID, LIPASE, CBC, PT, CMP, DELMI #### [address] Neutrophils/100 WBC (Bld) 89.1 % Normal . [facility] Comment on above: Performed By: #### B ILTD, LIPID, LIPASE, CBC, PT, CMP, DELMI #### [address] NRBC% 0.0 /100{WBC} Normal 0-0.5 [facility] Comment on above: Performed By: #### B ILTD, LIPID, LIPASE, CBC, PT, CMP, DELMI #### [address] Platelet mean volume (Bld) [Entitic vol] 8.6 fL Normal 6.3-10.7 [facility] Comment on above: Performed By: #### B ILTD, LIPID, LIPASE, CBC, PT, CMP, DELMI #### [address] Platelets (Bld) [#/Vol] 207 10*3/uL Normal 150-450 [facility] Comment on above: Performed By: #### B ILTD, LIPID, LIPASE, CBC, PT, CMP, DELMI #### [address] RBC (Bld) [#/Vol] 3.62 10*6/uL Normal 3.60-5.00 [facility] Comment on above: Performed By: #### B ILTD, LIPID, LIPASE, CBC, PT, CMP, DELMI #### [address] WBC (Bld) [#/Vol] 11.1 10*3/uL Normal 3.8-11.6 [facility] Comment on above: Performed By: #### B ILTD, LIPID, LIPASE, CBC, PT, CMP, DELMI #### [address] White Blood Count 11.1 [CFU]/mL Normal 3.8-11.6 [facility] Comment on above: Performed By: #### B ILTD, LIPID, LIPASE, CBC, PT, CMP, DELMI #### [address] Comprehensive Metabolic Pane daniel 10-06-2024 Albumin [Mass/Vol] 3.3 g/dL Low 3.5-5.7 [facility] Comment on above: Performed By: #### B ILTD, LIPID, LIPASE, CBC, PT, CMP, DELMI #### [facility] [address] Bilirubin [Mass/Vol] 0.6 mg/dL Normal 0.3-1.0 [facility] Comment on above: Performed By: #### B ILTD, LIPID, LIPASE, CBC, PT, CMP, DELMI #### [facility] [address] Creatinine [Mass/Vol] 1.33 mg/dL High 0.60-1.20 [facility] Comment on above: Performed By: #### B ILTD, LIPID, LIPASE, CBC, PT, CMP, DELMI #### [facility] [address] Creatinine Clr Calc Pharmacy 24.23 Normal [facility] Comment on above: Performed By: #### B ILTD, LIPID, LIPASE, CBC, PT, CMP, DELMI #### [address] GFR/1.73 sq M.predicted MDRD (S/P/Bld) [Vol rate/Area] 40.447 mL/min/{1.73_m2} Normal [facility] Comment on above: Performed By: #### B ILTD, LIPID, LIPASE, CBC, PT, CMP, DELMI #### [address] Urea nitrogen [Mass/Vol] 28 mg/dL High 7-25 [facility] Comment on above: Performed By: #### B ILTD, LIPID, LIPASE, CBC, PT, CMP, DELMI #### [address] Glucose [Mass/volume] in Ser um or PlasmaOrdered By: Kimberly Sanchez on 10-06-2024 Glucose [Mass/Vol] 99 mg/dL Normal 70-100 [facility] Comment on above: ADA recommended refe rence rangeRandom Glucose Reference Range is dependent on time and content of last meal. Glucose of more than 200 mg/dL in a nonstressed, ambulatory subject supports the diagnosis of Diabetes Mellitus. Result Comment: [place] om Glucose Reference Range is dependent on time and content of last meal. Glucose of more than 200 mg/dL in a nonstressed, ambulatory subject supports the diagnosis of Diabetes Mellitus. ADA recommended reference range Performed By: #### B ILTD, LIPID, LIPASE, CBC, PT, CMP, DELMI #### [place] [id number] [facility] INR in Platelet poor plasma by Coagulation assayOrdered By: Kimberly Sanchez on 10-06-2024 INR Coag (PPP) [Relative time] 1.1 {INR} Normal [facility] Comment on above: INR Therapeutic Rang e [...] heart valves: 3 - 4.5 PERFORMED BY: [place] [address] PATHOLOGIST NEWSPAPER DELIVERER SHERMAN AUGUSTIN M.D. Performed By: #### B ILTD, LIPID, LIPASE, CBC, PT, CMP, DELMI #### [place] [id number] [facility] Daniel 10-06-2024 L ------- Specimen: [id number] Received: 10/08/24 Status: JEB Bess Num: [id number] Spec Type: Surgical Subm Dr: Shahriar Warren DO Tissues: A Gallbladder (GALLBLADDER) Procedures: HE, Gross/Micro L3 Age/ Patient Sex Location Account Attending Physician Radha Barraza 79/F 4N [id number] Chema Gupta DO SPEC NUM: [id number] RECD: 10/08/24 STATUS: JEB BESS NUM: [id number] TAMMY: 10/06/24-[address]: Shahriar Warren DO ENTERED: 10/08/24 [facility] : [place] TYPE: Surgical DEPT: S ENTERED BY: [id number] RECV BY: [id number] ORDERED: MARIANO, Gross/Micro L3 ORDERED: MARIANO, Gross/Micro L3 Pathological Diagnosis Gallbladder, cholecystectomy: - [...] are filtered and no calculi are identified. Early Childhood Coordinator sections are submitted in a single cassette. (1, , [id number] A) Microscopic Description Microscopic examination is performed Specimen: [id number] Received: 10/08/24 Status: JEB Bess Num: [id number] Spec Type: Surgical Subm Dr: Shahriar Warren DO Tissues: A Gallbladder (GALLBLADDER) Procedures: Nino QUINTANA/Halima L3 Patient: Radha Barraza [id number] (Continued) Specimen: [id number] Received: 10/08/24 (Continued) Signed (signature on file) Leon Kemp MD 10/09/24 1317 Specimen: [id number] Received: 10/08/24 Status: JEB Gonsalesibis Num: [id number] Spec Type: Surgical Subm Dr: Shahriar Warren DO Tissues: A Gallbladder (GALLBLADDER) Procedures: Nino QUINTANA/Halima [place] Patient: Radha Barraza [id number] (Continued) Specimen: [id number] Received: 10/08/24 (Continued) CPT Codes 91145 Specimen: [id number] Received: 10/08/24 Status: JEB Bess Num: [id number] Spec Type: Surgical Subm Dr: Shahriar Warren DO Tissues: A Gallbladder (GALLBLADDER) Procedures: Nino QUINTANA/Halima L3 Patient: Radha Barraza [id number] (Continued) Signed (signature on file) Leon Kemp MD 10/09/24 1317 Normal [facility] Lipase [Enzymatic activity/v olume] in Serum or PlasmaOrdered By: Shahriar Warren on 10-06-2024 Lipase [Catalytic activity/Vol] 13.0 U/L Normal 11.0-82.0 [facility] Comment on above: Performed By: #### B ILTD, CREAT, CBC, BUN #### [facility] [address] Lipid Panelon 10-06-2024 LDL Cholesterol,Calculated 59 mg/dL Normal 0-100 [facility] Comment on above: Result Comment: LDL ATP III CLASSIFICATION LDL less than 100 mg/dL Optimal LDL 100-129 mg/dL Near or above optimal LDL 130-159 mg/dL Borderline high LDL 160-189 mg/dL High LDL greater than 189 mg/dL Very high Performed By: #### B ILTD, LIPID, LIPASE, CBC, PT, CMP, DELMI #### [address] Performed By: #### B ILTD, CREAT, CBC, BUN #### [address] Triglyceride w/Reflex 74 mg/dL Normal 0-149 [facility] Comment on above: Result Comment: TRIG ATP III CLASSIFICATION TRIG less than 150 mg/dL Normal TRIG 150-199 mg/dL Borderline high TRIG 200-500 mg/dL High TRIG greater than 500 mg/dL Very high Standard traceable to the Center for Disease Conrtrol and Prevention (CDC) test method. Performed By: #### B ILTD, LIPID, LIPASE, CBC, PT, CMP, DELMI #### [address] Performed By: #### B ILTD, CREAT, CBC, BUN #### [address] VLDL CHOLESTEROL 14 mg/dL Normal [facility] Comment on above: Performed By: #### B ILTD, LIPID, LIPASE, CBC, PT, CMP, DELMI #### [address] Performed By: #### B ILTD, CREAT, CBC, BUN #### [address] Potassium [Moles/volume] in Serum or PlasmaOrdered By: Kimberly Sanchez on 10-06-2024 Potassium [Moles/Vol] 3.8 mmol/L Normal 3.5-5.1 [facility] Comment on above: Performed By: #### B ILTD, LIPID, LIPASE, CBC, PT, CMP, DELMI #### [facility] [address] Protein [Mass/volume] in Ser um or PlasmaOrdered By: Obtonedarosalind Koehleromar on 10-06-2024 Protein [Mass/Vol] 5.7 g/dL Low 6.4-8.9 [facility] Comment on above: Performed By: #### B ILTD, LIPID, LIPASE, CBC, PT, CMP, DELMI #### [facility] [address] Prothrombin time (PT)Ordered By: Obtonedah Rodoomar on 10-06-2024 PT Coag (PPP) [Time] 12.0 s Normal 9.0-12.9 [facility] Comment on above: A hematocrit value g reater than 55% may lead to inaccurate results in coagulation testing. Patients having hematocrit values >55% require a special collection tube for coagulation studies. Please contact the laboratory at [phone] for redraw instructions. Result Comment: A he matocrit value greater than 55% may lead to inaccurate results in coagulation testing. Patients having hematocrit values >55% require a special collection tube for coagulation studies. Please contact the laboratory at [phone] for redraw instructions. Performed By: #### B ILTD, LIPID, LIPASE, CBC, PT, CMP, DELMI #### [facility] [address] Serum globulin measurement b y calculation (mass/volume)Ordered By: Obtonedarosalind Koehleromar on 10-06-2024 Globulin (S) [Mass/Vol] 2.4 g/dL Normal [facility] Comment on above: Performed By: #### B ILTD, LIPID, LIPASE, CBC, PT, CMP, DELMI #### [facility] [address] Serum or plasma albumin/glob ulin mass ratioOrdered By: Obtonedah Rodoomar on 10-06-2024 Albumin/Globulin [Mass ratio] 1.4 {ratio} [facility] Comment on above: Performed By: #### B ILTD, LIPID, LIPASE, CBC, PT, CMP, DELMI #### [address] Serum or plasma anion gap de terminationOrdered By: Obaydah Daromar on 10-06-2024 Anion gap [Moles/Vol] 10.7 mmol/L Normal 6.0-15.0 [facility] Comment on above: Performed By: #### B ILTD, LIPID, LIPASE, CBC, PT, CMP, DELMI #### [address] Serum or plasma total choles terol/high density lipoprotein (HDL) cholesterol mass ratOrdered By: Obaydah Daromar on 10-06-2024 Cholesterol.total/Chol esterol in HDL [Mass ratio] 2.0 {ratio} Normal <5.0 [facility] Comment on above: Result Comment: PERF ORMED BY: [place] [address] PATHOLOGIST NEWSPAPER DELIVERER SHERMAN AUGUSTIN M.D. Performed By: #### B ILTD, LIPID, LIPASE, CBC, PT, CMP, DELMI #### [address] Performed By: #### B ILTD, CREAT, CBC, BUN #### [address] Sodium [Moles/volume] in Ser um or PlasmaOrdered By: Obaydah Daromar on 10-06-2024 Sodium [Moles/Vol] 133 mmol/L Low 136-145 [facility] Comment on above: Performed By: #### B ILTD, LIPID, LIPASE, CBC, PT, CMP, DELMI #### [address] Triglyceride [Mass/volume] i n Serum or PlasmaOrdered By: Obaydah Daromar on 10-06-2024 Triglyceride [Mass/Vol] 74 mg/dL 0-149 [facility] Comment on above: TRIG ATP III CLASSIF ICATIONTRIG less than 150 mg/dL NormalTRIG 150-199 mg/dL Borderline highTRIG 200-500 mg/dL High TRIG greater than 500 mg/dL Very highStandard traceable to the Center for Disease Conrtrol and Prevention (CDC) test method. MR Thoracic spine WO [place] 06-06-2024 [place] [address] Magnetic Resonance Report Signed Patient: RADHA BARRAZA MR#: [id number] : 1945 Acct:[id number] Age/Sex: 79 / F ADM Date: 06/06/24 Loc: MRI Attending Dr: Rinku Lopez NP Ordering Physician: Rinku Lopez NP Date of Service: 06/06/24 Procedure(s): MR thoracic spine wo con Accession Number(s): [id number] cc: Rinku Lopez NP; SHARI MCKEON [place] [address] Patient Name: RADHA BARRAZA MRN: [id number] date: 1945 Sex: F Assigned Patient Location: MRI Current Patient Location: MRI Accession/Order Number: [id number] Exam Date: 06/06/2024 14:56 Report Date: 06/06/2024 [...] stenosis. Impression dictated by: Alejandro Gomez Jr., D.ORicardo06/06/2024 2:58 PM Dictation Location: RADIO-PC-18 Electronically authenticated by: [id number] Y Date: 06/06/2024 14:58 Dictated By: Alejandro Gomez M.D. Signed By: 06/06/24 1504 DD/ 1458 TD/TT: Executive Officer Special Warfare Team: [facility] Radiology, Radiologingrid barksdale MD - 06/06/2024 [place] [address] Magnetic Resonance Report Signed Patient: RADHA BARRAZA MR#: [id number] : 1945 Acct:[id number] Age/Sex: 79 / F ADM Date: 06/06/24 Loc: MRI Attending Dr: Rinku Lopez NP Ordering Physician: Rinku Lopez NP Date of Service: 06/06/24 Procedure(s): MR thoracic spine wo con Accession Number(s): [id number] cc: Rinku Lopez NP; SHARI MCKEON The [place] [address] Patient Name: RADHA BARRAZA MRN: [facility]:[id number] date: 1945 Sex: F Assigned Patient Location: MRI Current Patient Location: MRI Accession/Order Number: [id number] Exam Date: 06/06/2024 14:56 Report Date: 06/06/2024 [...] Gomez Jr., D.O.06/06/2024 2:58 PM Dictation Location: [place] [address] Electronically authenticated by: [id number] Y Date: 06/06/2024 14:58 Dictated By: Alejandro Gomez M.D. Signed By: 06/06/24 1501 DD/ 1458 TD/TT: Executive Officer Special Warfare Team: [facility] [employer] Radiology Study observation (narrative) [facility] MR Thoracic spine WO contras tOrdered By: Radiologist Radiology on 06-06-2024 [facility] [employer] Work Phone: BI MAMMOGRAM SCREENING TOMOS YNTHESIS [...] Not Available Consent Formson 07-27-2022 Consent Forms [id number]#1.00OTGTIFF [facility] Discharge Instructionson Discharge Instructions [id number]#1.00OTGTIFF [facility] MAGR Intraoperative Recordon 07-27-2022 MAGR Intraoperative Record MAGR Intra-Op Record Summary Primary Physician: Ede Ramos DO Finalized Date/Time: 07/27/22 09:45:04 Pt. Name: RADHA BARRAZA Antolin/Sex: 1945 FEMALE Med Rec #: [id number] Physician: Ede Ramos DO Financial #: [id number] Pt. Type: D Room/Bed: / Admit/Disch: 07/26/22 [...] Role Performed Surgeon - Primary Anesthesiologist of Fire Fighters Dispatcher Record Time In 07/26/22 07:39:00 07/26/22 07:39:00 [...] Vásquez CST, CST, Kelly CST McMurray CST/CSFAZOE CST Role Performed Scrub Personnel Scrub Personnel Expander Time In 07/26/22 07:39:00 07/26/22 07:39:00 07/26/22 [...] Total Reverse Primary Surgeon Ede Ramos Modifiers Left Kvng DO Surgeon Comment [...] to chemical sources (more content not included)... [facility] Outside Recordson 07-27-2022 Outside Records [id number][facility] 07-27-2022 Provider Orders [id number]#[facility] Telemetry Stripson 3 Telemetry Strips [id number]#1.[facility] Anesthesia Note[facility] 07-26-2022 Anesthesia Note Patient: [...] 07/26/2022 11:51 EDT] Remy Da Silva MD [facility] Anesthesia Note Patient: RADHA BARRAZA Age: 77 [...] obstructive pulmonary disease (COPD) / SNOMED CT 22885654 / Confirmed Heart murmur / SNOMED CT 140394646 / Confirmed Hyperlipidemia / SNOMED CT 47784782 / Confirmed HTN (hypertension) / SNOMED CT 5847191731 / Confirmed Histories Family History: COPD Mother Father Procedure history: Arthroplasty of left knee (1459441683). Arthroplasty of right knee (7918188115). Carpal tunnel release (850521673). Comments: 06/29/2022 13:15 Dorota De Leon RN bilat Colonoscopy (795222272). EGD - Esophagogastroduodenoscopy (9780474796). Disorder of rotator cuff (5560126611). Comments: 06/29/2022 13:14 Dorota De Leon RN [...] Oriented. Review / Management Laboratory Results Plan [place] [employer]hesi[employer]#(ASA) physical status classification: Class [...] 07/26/2022 08:23 EDT] Remy Da Silva MD [facility] Inpatient Patient Summaryon 07-26-2022 Inpatient Patient Summary [place] [id number] Patient Discharge Instructions Name: RADHA BARRAZA : 1945 Patient Address: [facility] [address] [facility] [address] Primary Care Provider: Name: SHARI MCKEON After you are discharged if you find you have any questions, please, call [phone] ext [phone] to speak to a nurse. Discharge Diagnosis: [...] alcohol and/or drug addiction problems; contact the [facility] 04/10 Crisis Hotline -Text 4HQMV to 894970. If you received any narcotics, sedation, or [...] business decisions or sign any legal documents [facility] would like to thank you for allowing us to assist you with your healthcare needs. The following includes patient education materials and information regarding your injury/illness. CLAUDIARADHA MELENDREZ has been given the following list of follow-up instructions, prescriptions, and patient education materials: Follow-up Instructions With: Address: When: Ede Ramos [address] [place] [address], [address] [place] [address] Business (1) 08/03/2022 11:00 AM [...] fingers frequently (more content not included)... Normal [facility] MAGR Intraoperative Recordon 07-26-2022 MAGR Intraoperative Record MAGR Intra-Op Record Summary Primary Physician: Finalized Date/Time: 07/26/22 07:42:32 Pt. Name: LIV BARRAZAJANELLE Dangelo/Sex: 1945 FEMALE Med Rec #: [id number] Physician: Ede Ramos DO Financial #: [id number] Pt. Type: D Room/Bed: / Admit/Disch: 07/26/22 [...] Warga, Laura RN Role Performed Anesthesiologist of Fire Fighters Dispatcher Fire Fighters Dispatcher Record Time In 07/26/22 07:13:00 07/26/22 07:13:00 07/26/22 07:13:00 Time Out 07/26/22 07:38:00 07/26/22 07:38:00 07/26/22 07:38:00 Procedure Interscalene Block(Left) Interscalene Block(Left) Interscalene Block(Left) Last Modified By: Kimberley Le RN, Margaret RN Klaehn, Margaret RN 07/26/22 07:39:31 07/26/22 07:39:31 07/26/22 07:39:31 Entry 4 Case Attendee Amy Bates RN Role Performed Fire Fighters Dispatcher Time In 07/26/22 07:13:00 Time Out 07/26/22 [...] Post-op Destinat (more content not included)... [facility] MAGR PACU Record [facility] Primary Physician: Ede Ramos DO Finalized Date/Time: 07/26/22 10:38:28 Pt. Name: LIV BARRAZAJANELLE Duque./Sex: 1945 FEMALE Med Rec #: [id number] Physician: Ede Ramos DO Financial #: [id number] Pt. Type: D Room/Bed: / Admit/Disch: 07/26/22 05:52:10 - Institution: PACU Case Times MAGR Entry 1 In PACU I 07/26/22 09:51:00 Discharge from PACU 07/26/22 10:35:00 I Last Modified By: Warner Bolton RN 07/26/22 10:38:23 Finalized By: Warner Bolton RN Document Signatures Signed By: Warner Bolton RN 07/26/22 10:38 [facility]-26-2022 MAGR Postoperative Record MAGR Phase II Record Summary Primary Physician: Ede Ramos DO Finalized Date/Time: 07/26/22 12:01:17 Pt. Name: RADHA BARRAZA BRAD Dangelo/Sex: 1945 FEMALE Med Rec #: [id number] Physician: Ede Ramos DO Financial #: [id number] Pt. Type: D Room/Bed: / Admit/Disch: 07/26/22 [...] Samuels RN 07/26/22 12:01 [facility] MAGR Preoperative Recordon 0 07-26-2022 MAGR Preoperative Record MAGR Pre-Op Record Summary Primary Physician: Ede Ramos DO Finalized Date/Time: 07/26/22 07:44:03 Pt. Name: RADHA BARRAZA /Sex: 1945 FEMALE Med Rec #: [id number] Physician: Ede Ramos DO Financial #: [id number] Pt. Type: D Room/Bed: / Admit/Disch: 07/26/22 [...] Signed By: Kimberley Le RN 07/26/22 07:44 [facility] Operative Report - Surgeon/P pablo [...] Estimated blood loss: 50 Complications: None Findings: Zpyl-ip-pyoe in the glenohumeral joint Procedure summary: Patient [...] on: 07/26/2022 09:35 EDT] Ede Ramos DO Normal [facility] Patient Handouton 07-26-[address] [...] or concerns, please call the office at [phone] 7. Follow up as scheduled [facility] XR Shoulder 1 View Lefton XR [...] MD 07/27/22 4:01 pm Technologist: JORDON RUVALCABA [facility] Comment on above: Order Comment: chey lt status post shoulder replacement Progress Note - Nurseon 07-12 Progress Note - Nurse Pre-op call made t o pt. Pt states understanding of arrival time of 0600 on 07/26/22 and NPO after MN. [Electronically Signed on: 07/23/2022 09:27 EDT] Shantel Gonsalez RN [Verified on: 07/23/2022 09:27 EDT] Shantel Gonsalez RN [facility] Coding Summaryon 07-02-2022 Coding Summary [employer] 64 AifydigkOIm9gYl+PGhlYWQ+PE1 FGIKgS77grMGbwV8WV4fCZN9OZW PHNQDUVN9HZL8cvXQ5FTcwX1Lgj iAv LleawEExZX30RZk4IIN7hOobFQu mgV4aoDCpS7w8CpOeEM65hB73CS ocQQWyQyZ9DvSblligqBKl R9knTsZmbBPtCet+PHRhYmxlIHd zZJHqZAiyTXEnNuZwaCduGY6uNt 9yZGVyLWNvbGxhcHNlOiBj d9urFONuRBnwMP7qfMabG4MbuHV 5GZSft3o5Vz26vUV+ZUDbMMK3fB ltUOwam378GlXrl0hzSTE1 pQPrQJajIUR2X62ow4D9HDYuEBS yFDE9cEO2tI0dbArzkdgbP0OtoL BsUrA0DSS1vIMwnA6wlGgj zsziuJ1iCpu+C19OCG2XQYQGPF6 CHrq9H8BeOmckyIH+WL12STFkCQ 08pLGoiROzl5fwqZp3SaWb RGTwXGS5eXyfHGtjb5DbJSWeS15 ciPPzq2E0KPHsmSzdgTCeJjGnpD U8jU6yBEtxuhbhc0ycmjoa Iknku3ntxm07vQ35H86oRXzrCXI gISA5WALtAJYbwYlqhs3ccQ6vMy 8+NZuzn8ecx0jkcSj7EhRh RXEqtvWonSgpASS0n0DqOr51O2V vwFmev6FlFao8gd89zUPfa3C0yP C5BNvzVKTntU0zEXdhDdE1 KBXcAgUnnZ73kYNtBYdsDg3cnWz saGvaSU6iATEwhxtvCHDhrO5tNH BwcFKtnEynPC8kYSDkrvlx x041KiJeITF2LZMtvRUeO6JnaD2 bQbLrVAOiYKHsX0AcuTNmHTpbB5 34DCwuYoC7PJHouhHuY0Oa JMLqnMgkJtU6e6V1Ym6Hv7Ugrje lDDH7BKpbQEQ5HbRpMmUnStZ4K3 WoLhd1AEYboRdiLH8rN5Az IZEaefltyplbwCJ7XCOcMHLszI9 3zPEdQEpfGu9xd4X8f053XQEoXE BpcW30Sr3ajHylAXKaoNSY iR9ipaxsa3xavrxfEdGtKTApOIw 8DOe9VSUqpZfgTzDsVSD1FtK2HV H5jHKczY8cnLdvyygxmI8w Oyc+Y96zyE9aRAD8AZI2fbwoPMF ruhMvTC81AF33A3FpQwvorYCgaR U+QXNhlzQbvVmzVB2gRpHl z7yrs4ZuQBweO8NfORDuTEyeOod 1HGFbKWU8lPO5tN1yTYNbSKoln6 M0yLS6F8OrtyPese9la8kv HOYyZGvwL67vgCQtj3C5RPTggPS 5JSRteZgkAnBthQ52Byv+PGNvbG rlj1NqAwrav1svt0qkgDs1 LoLyUBUlojFqdHpnRPH6s2MfIg1 6P25cQGpaNRBlEBVpKCZvTPVttV ifpc4xiJ9aKp6+PGNvbCB3 oPB6nT9xHUZsLfM3VKpdX270WvL ztLKiFnsao8eep9hwySr6YeCcCB JeciRkgDftWNG9t8IqFg14 F29aTBxeGAAnDHZpJQVzNSMkrPr oxz0wjN6sEw0+YT2un4kqpq39fQ 48dHI+VXCbZKM1jKofOCfx MEXgcB3qDUcfOyK6AASbVkHpvS2 5fOJhZKgvIu5ylLwwdKsdXQ8uTS Ghmindj950BqZnk4gqMDIm cMAoLYfoLWZ7S80xu3D3HVDyTZK hMKN4wJM9qN0cyDmcwpwnoZCteL tvwuWsrCewLMolGRllT651 IHRvcDsnPlBhdGllbnQgTmFtZTo 8D7LrHnw7QZBqiSlqAB3eiHSoVT nhQr3qiGrusEmqBC7wADIo hdtrp099AeBth0vtTGOyhGGjEXt bTSO5K02qo3I7RNDmLTCaHAE2pE G7xT1jhZqyepkuaLJzkTac dhOaeEfuXCejCKtzM297EZQolZs oVzKpkhHcSGBbyHA5JT70IE84fV Iye5C1eEX5O7PvYWDndqrc uevycTJ8YSQxCYOilH80Ur0stJp mJm1lKLMlDJC7TMAbrQJjU1BeoZ 0yTbBfSYUtHRFnH9WdqLXx UBksF058LBiyGcP6DAInvtTqQ7M nNPGdzAzxEzP5g0X5Kc2BT0Y0AS 72SC87nNRwg0B3iKE7O3Lb QBBefrtavfqwmTY9TMNhHVTjrL0 6Dg1ucOtyTw6lGVJjAPS9KETbbQ AuN8PuaI1rHxYsMUNrSVSk I2PegLHeVQinT510YKptOzK4JSO xmhIkA7BpGRLuiBneBhG3m2N2Fs 8YZHb5HZ48TY98xWFqi2M7 yCU1C9WwCJAtrexfvqvxzSR6HUV fCJMljP45Tk7oqFubSh9aHMVfKI S2LKYhtDSaU9CmlS7bYrYu BXMrMPFqW1RsvNAwECsbN458WCx aUfM7CEGlryJmT3RzXQTddJlzAc J8a4B4Yz1SDZSyHK56ENW5 kUM3OB96EV09Y2LzCuqovHDcvUB +PHRhYmxlIHdpZHRoPScxMDAlJy RbnZctMB6bGy3mVSHjUPCt jOerkSOcVaKbc6crOSOhJNhjDZ0 skVyeL6ZfmPR7NPBoq4v9Ix66K5 1rN6HugBE+ZDUteBG1aKW0 aL5vQbTyZqZ2NIxeB946QfTgoUU yHdgne5lwk5jeoEi9DmC9BFUftk WnjNqmDGE4t1RnJx85I92n IHdpZHRoPSIxNSUiIHZhbGlnbj0 glF3xHl5+OYCvsVP3jQK7hS0rCo BlDeI8UDnpQ227PtFxwNEy Tyyas9nbc1evnVm8ZwGpLSUdpzN rsMegZYW6p3SpLv91K0DgqOzbv8 VdIyt0kc03cBGgf2I3bZS8 Q7WtVFCjzncpnVGadFajDA3xPOW dduxmFUBilA6iWJOqR4t5WrNcJb L3XWkbR1TqudO6QMGamDSn CYoeFLK3I91hc1U9TPAbQMTpPRH 2hOG1iN7dwYozsfktsHFvaDhxtq NgdXevCTyzPAtrS733VNYp dEwpFMXmnV5mFHWxaAGpzWlrCE3 wNTBpbjsnPldPVFQsIEpJTEwgRU 0SHCd9C5RaDcc6MAUayGpi IF6vsDAgJXnuVd9reHquoUrgJA3 oLKOyjuulZAAkvW8bVZQewDSjpE ieZS6uQEGcluqib293OmPa FQA8GEEnbFOnO9JvuI0qDqFoAZA lXVRdH6CadJCjSPlqA754OTwgHu Q3KYAmvhMgH9NeYSTgrBke JkG1e1R7Xd3qMl0rIh6jTXF1WB4 1JQ94yPOzy2V3bKO5T3KkIIUokm bxjlkssSM6MVWfXCQycQ96 dAOkOXnbKb8kd8G1k190XJRkTMO qaS71Hy1ctCrrWDGszJLMgU2fas mke5kyajcnTkVuUUNtZYd6 QRb5XQJqbIwkOqZzAND5ImZ0HHP 9rFIwmE1zqUgqqkgkmE2tCmu+Nz ttIGQflaM2A0UsGpd8PVWe wYqsZF6llDHnKUdeSd0inNqvdFn vCW9eVAGdsqxfQFOyqI6wSTOcyM VlaLvqQI5mFGHtlzaoo823 AvAiCUM8QNRooYBsZ4LucP2cAvR jXPDyEIZmE0IegVMbDTjyD890BH flNnQ3JFArmgRyA1WlCNCs gBpeCvT7m3P8Kc5PYU6DQQP6S3Y kSvf8VQCbyYwlGB2stVWsRGdbZa 7hdKlgfNznFP3iWGHcgfzm QGRryW8rPVLqzSCksMziZB1hJSA dyccvf034UvQkFRS7PYOhlPOgL6 PwjR2eJtKpIMUkHYWzJ4Ok pBBwMXlhR086VXwiHvW0MMRrtsY jU1WvHENzlNvtVvY9v7K1En6YUU wvdGQ+AU65pp02U4EkDknc Fpj6YEQcBXH9gGZ2qT4xWHHyDSk vj0L0rSN9Z2HfvqQbor5nh3ukCN LsODlfK02reFSdm2C1DENa uFG5NXXegEvyVdTzsD69Vfe+PGN doNakb6XkPgxtv9zyo9wruCv0Pr QmNEVncsXvhOzgJBE3o7Ny Gp49P39sSBmzQPWbSQSfGLCvPEN vdZxqmk6rpJ4hQb2+FSJrwDZ7hA S0nU3oPrZjCiW6CUavA212 RbEssYMiUennv3oap5nvhQf7ZwM gCPWklhYfjWllXVK4k9AqEt49W2 OtqTojr3YxWjz4gh94xKWj o2N6tHR1R8CzSXEwfsjshGEagGh eVT3yNKJrqbsiFQHarI5tWUGfX9 s4MyHbAwC6NXnrR9NlwgF3 RCPnrWRsSNLmnKAEuO3ckccci6w qtuxwOoPlTWQkHHd9MAt8KZHkvK qjHkAaIBE1NsY1IBI6mGEt uN7twHvcbvlciR7kGnz+FBq9k9r xtEIkTO3egAK3CW70LA82xUHyn9 C7wQV2A5YxYGDwfedvrcbt vVC1PLPgHVNyuN95Nm2ycJotSx6 eRBGyLLE6EGSszBIvH0LsxK8vNg EvYSNcZJVwA4UzvWHrAHth Z638DHwdFtM4WXZwjxBgZ8SqYRP ruYbgEfH1z7Y1Hm8FFV96ZE57WN 76wXRpg7V7aGD4Q6HfFWDy wsugvqzghRJ3PCZlYLIzcA47Rg2 caNxpEj4mIRMwFNO2UIFhiUHrK9 NgwA3zVrZuUKNtPFLtB6Hc jOSwLJfeL530BHncBhB0JCDvhyD fB4XeIFMmcZxuCkF8k6D1Cq1AGa 98CO46TT92vXWal3T4hVR7 G7VhCINbqvnvhnjpbBX8DNHfBST ejN78Cl0gzIdeIc4kAFAcHUC0JG PecIMrW1DzmH6sIxCpNHYs UIBtJ1SoiZZyEOpyA756ACubDsX 6SSAupcNtM4PeESOhfOohFtR0k4 V9Vv1THFldvbx6W8TtLrio dHI+HQ81SRMxYT24wKEsgLPlb1f saBa8PwGoXHVyHAA4lGutSNweb4 RcVGJvM11jpUYhj3B1NZDq bGx (more content not included)... Normal [facility] C MRSA Screenon 06-30-2022 C MRSA Screen Negative Normal [facility] Comment on above: Performed By: #### 1 [id number] ####[facility] (DEFAULT)[address] [place] [address] Progress Note - Nurseon 06-12 Progress Note - Nurse Dr. Castro reviewed PAT notes for upcoming surgery 07/26/2022. No new orders at this time [Electronically Signed on: 06/30/2022 11:45 EDT] Annamarie Samuels RN [Verified on: 06/30/2022 11:45 EDT] Annamarie Samuels RN [facility] Provider Orderson 06-30-2022 Provider Orders [id number] [facility] .Auto Diff 1on 06-29-2022 Auto Andrews % 10 % Normal -12 [facility] Comment on above: Performed By: #### 7 [id number], [id number], [id number] ####[facility] (DEFAULT)[address] [place] [address] Baso Abs# 0.0 x10 Normal 0.0-0.2 [facility] Comment on above: Performed By: #### 7 [id number], [id number], [id number] ####[facility] (DEFAULT)[address] [place] [address] Basophils/100 WBC (Bld) 0.7 % Normal 0.2-2.0 [facility] Comment on above: Performed By: #### 7 [id number], [id number], [id number] ####[facility] (DEFAULT)[address] [place] [address] Eos Abs# 0.6 x10 High 0.0-0.4 [facility] Comment on above: Performed By: #### 7 [id number], [id number], [id number] ####[facility] (DEFAULT)[address] [place] [address] Eosinophils/100 WBC (Bld) 8.5 % High 0.9-4.0 [facility] Comment on above: Performed By: #### 7 649148, [id number], [id number] ####[facility] (DEFAULT)[address] [place] [address] 29567 Lymph Abs# 1.6 x10 Normal 1.3-2.9 [facility] Comment on above: Performed By: #### 7 210706, [id number], [id number] ####[facility] (DEFAULT)[address] [place] [address] 48170 Lymphocytes/100 WBC (Bld) 24 % Normal 14-48 [facility] Comment on above: Performed By: #### 7 231295, [id number], [id number] ####[facility] (DEFAULT)[address] [place] [address] 72587 Andrews Abs# 0.7 x10 Normal 0.0-0.8 [facility] Comment on above: Performed By: #### 7 182855, [id number], [id number] ####[facility] (DEFAULT)[address] [place] [address] 19707 Neut Abs# 3.8 x10 Normal 1.5-9.2 [facility] Comment on above: Performed By: #### 7 351563, [id number], [id number] ####[facility] (DEFAULT)[address] [place] [address] 86339 Neutrophils/100 WBC (Bld) 57 % Normal 44-88 [facility] Comment on above: Performed By: #### 7 391390, [id number], [id number] ####[facility] (DEFAULT)[address] [place] [address] Standardon 06-29-2022 eGFR Non AA 33 mL/min/1.73m2 Invalid Interpretation Code [facility] Comment on above: Performed By: #### 7 079027, [id number], [id number] ####[facility] (DEFAULT)[address] [place] [address] 90926 eGFR AA 40 mL/min/1.73m2 Invalid Interpretation Code [facility] Comment on above: Performed By: #### 7 844135, [id number], [id number] ####[facility] (DEFAULT)[address] [place] [address] 00163 Anion gap [Moles/Vol] 8.9 mmol/L Normal 5.0-19.0 [facility] Comment on above: Performed By: #### 7 279325, [id number], [id number] ####[facility] (DEFAULT)[address] [place] [address] 56311 Calcium [Mass/Vol] 9.3 mg/dL Normal 8.9-10.3 [facility] Comment on above: Performed By: #### 7 849886, [id number], [id number] ####[facility] (DEFAULT)[address] [place] [address] 29170 Chloride [Moles/Vol] 102 mmol/L Normal 101-111 [facility] Comment on above: Performed By: #### 7 709834, [id number], [id number] ####[facility] (DEFAULT)[address] [place] [address] 72209 CO2 [Moles/Vol] 28 mmol/L Normal 21-32 [facility] Comment on above: Performed By: #### 7 670503, [id number], [id number] ####[facility] (DEFAULT)[address] [place] [address] 95300 Creatinine [Mass/Vol] 1.53 mg/dL High 0.60-1.30 [facility] Comment on above: Performed By: #### 7 521059, [id number], [id number] ####[facility] (DEFAULT)[address] [place] [address] 54594 Glucose [Mass/Vol] 107.0 mg/dL Normal 74.0-118.0 [facility] Comment on above: Performed By: #### 7 370476, [id number], [id number] ####[facility] (DEFAULT)[address] [place] [address] 37845 Osmolality 279 mOsm/L Invalid Interpretation Code [facility] Comment on above: Performed By: #### 7 031896, [id number], [id number] ####[facility] (DEFAULT)[address] [place] [address] 61984 Potassium [Moles/Vol] 3.9 mmol/L Normal 3.6-5.1 [facility] Comment on above: Performed By: #### 7 205009, 67482377, [id number] ####[facility] (DEFAULT)[address] [place] [address] Sodium [Moles/Vol] 135.0 mmol/L Low 136.0-144 . 0 [facility] Comment on above: Performed By: #### 7 996533, 72541496, [id number] ####[facility] (DEFAULT)[address] [place] [address] 19148 Urea nitrogen [Mass/Vol] 36 mg/dL High 8-26 [facility] Comment on above: Performed By: #### 7 771169, [id number], [id number] ####[facility] (DEFAULT)[address] [place] [address] Urea nitrogen/Creatinine [Mass ratio] 23.5 mg/mg High 4.6-16.2 [facility] Comment on above: Performed By: #### 7 989290, 25375839, [id number] ####[facility] (DEFAULT)[address] [place] [address] CBC w/ Auto Diffon 3 Erythrocyte distribution width (RBC) [Ratio] 12.8 % Normal 11.5-15.0 [facility] Comment on above: Performed By: #### 7 727433, 71124435, [id number] ####[facility] (DEFAULT)[address] [place] [address] 05944 Hematocrit (Bld) [Volume fraction] 36.4 % Normal 33.7-40.4 [facility] Comment on above: Performed By: #### 7 225220, [id number], [id number] ####[facility] (DEFAULT)[address] [place] [address] Hemoglobin (Bld) [Mass/Vol] 12.2 g/dL Normal 11.3-15.9 [facility] Comment on above: Performed By: #### 7 049244, [id number], [id number] ####[facility] (DEFAULT)[address] [place] [address] Man Diff? Auto Invalid Interpretation Code [facility] Comment on above: Performed By: #### 7 254109, [id number], [id number] ####[facility] (DEFAULT)[address] [place] [address] 72544 MCH (RBC) [Entitic mass] 32 pg Normal 24-34 [facility] Comment on above: Performed By: #### 7 111480, 25471686, [id number] ####[facility] (DEFAULT)[address] [place] [address] 17825 MCHC (RBC) [Mass/Vol] 33 g/dL Normal 26-37 [facility] Comment on above: Performed By: #### 7 093977, [id number], [id number] ####[facility] (DEFAULT)[address] [place] [address] 38752 MCV (RBC) [Entitic vol] 97 fL Normal 81-100 [facility] Comment on above: Performed By: #### 7 346452, [id number], [id number] ####[facility] (DEFAULT)[address] [place] [address] 74979 Platelet 336 x10 Normal 138-427 [facility] Comment on above: Performed By: #### 7 454153, [id number], [id number] ####[facility] (DEFAULT)[address] [place] [address] 63637 Platelet mean volume (Bld) [Entitic vol] 7.2 fL Normal 6.3-10.2 [facility] Comment on above: Performed By: #### 7 761447, [id number], [id number] ####[facility] (DEFAULT)[address] [place] [address] 51542 RBC 3.77 x10 Normal 3.70-5.30 [facility] Comment on above: Performed By: #### 7 454887, [id number], [id number] ####[facility] (DEFAULT)[address] [place] [address] 07283 WBC 6.7 x10 Normal 3.5-10.5 [facility] Comment on above: Performed By: #### 7 588184, [id number], [id number] ####[facility] (DEFAULT)[address] [place] [address] 81300 UA w Culture if Ind Standard on 06-29-2022 Breakpoint UA Normal [facility] Comment on above: Performed By: #### 1 [id number] #### [facility] (DEFAULT) [address] [place] [address] 78182 Color (U) Yellow [facility] Comment on above: Performed By: #### 1 [id number] #### [facility] (DEFAULT) [address] [place] [address] 70371 Culture? Not Indicated Invalid Interpretation Code [facility] Comment on above: Result Comment: Resu lt created by rule GL_MAGR_ADD_UA_CULT1 Performed By: #### 1 [id number] #### [facility] (DEFAULT) [address] [place] [address] 74136 Glucose (U) [Mass/Vol] Negative [facility] Comment on above: Performed By: #### 1 [id number] #### [facility] (DEFAULT) [address] [place] [address] 38080 Ketones Ql (U) Negative [facility] Comment on above: Performed By: #### 1 [id number] #### [facility] (DEFAULT) [address] [place] [address] 94497 Micro? Not Indicated Invalid Interpretation Code [facility] Comment on above: Result Comment: Resu lt created by rule GL_MAGR_ADD_UA_MICRO Performed By: #### 1 [id number] #### [facility] (DEFAULT) [address] [place] [address] 46847 UA Bilirubin Negative Normal [facility] Comment on above: Performed By: #### 1 [id number] #### [facility] (DEFAULT) [address] [place] [address] 33573 UA Blood Negative Normal [facility] Comment on above: Performed By: #### 1 [id number] #### [facility] (DEFAULT) [address] [place] [address] 10871 UA Clarity CLEAR Normal CLEAR [facility] Comment on above: Performed By: #### 1 [id number] #### [facility] (DEFAULT) [address] [place] [address] 80798 UA Leuk Est Negative Normal NEGATIVE [facility] Comment on above: Performed By: #### 1 [id number] #### [facility] (DEFAULT) [address] [place] [address] 75467 UA Nitrite Negative Normal NEGATIVE [facility] Comment on above: Performed By: #### 1 [id number] #### [facility] (DEFAULT) [address] [place] [address] 62477 UA pH 6.5 Normal 5-8 [facility] Comment on above: Performed By: #### 1 [id number] #### [facility] (DEFAULT) [address] [place] [address] 60674 UA Protein Negative Normal NEGATIVE [facility] Comment on above: Performed By: #### 1 [id number] #### [facility] (DEFAULT) [address] [place] [address] 02450 UA Spec Grav 1.010 Normal 1.001-1.[address] [place] [address] Comment on above: Performed By: #### 1 [id number] #### [facility] (DEFAULT) [address] [place] [address] 88022 UA Urobilinogen 0.2 mg/dL Normal 0.2-1.0 [facility] Comment on above: Performed By: #### 1 [id number] #### [facility] (DEFAULT) [address] [place] [address] 63808 Urine Source Clean Catch Normal [facility] Comment on above: Performed By: #### 1 [id number] #### [facility] (DEFAULT) [address] [place] [address] 79898 MRI Shoulder w/o Lefton 04-15 MRI Shoulder [...] by Adarsh Adams on 05/11/2022 1041 Normal [facility] SCREENING MAMMOGRAM W/ARABELLA, BILATERAL*on 11-20-2021 SCREENING [...] VERY IMPORTANT TO YOUR HEALTH. THE CURRENT [employer] GUIDELINES RECOMMENDS ANNUAL MAMMOGRAPHY BEGINNING AT AGE 39 THIS FACILITY USES A REMINDER SYSTEM TO ENSURE ALL PATIENTS RECEIVE REMINDER NOTIFICATIONS AT THE APPROPRIATE TIME BASED ON THE RECOMMENDATIONS OF THIS EXAM. Report reported and signed by Alejandro Forte on 11/20/2021 0949 Normal [facility] Comprehensive Metabolic Pane daniel 06-10-2021 Albumin [Mass/Vol] 4.2 g/dL Normal 3.6-5.1 [facility] Comment on above: Performed By: #### C JEWELS LIPD #### [facility] [address] [place], [place] [id number] Albumin/Globulin [Mass ratio] 1.7 {ratio} Normal 1.0-2.5 [facility] Comment on above: Performed By: #### C JEWELS LIPD #### [facility] [address] [place], [place] [id number] ALP [Catalytic activity/Vol] 82 U/L Normal 35-119 [facility] Comment on above: Performed By: #### C JEWELS, LIPD #### [facility] [address] [place], [place] [id number] ALT [Catalytic activity/Vol] 15 U/L Normal 6-33 [facility] Comment on above: Result Comment: 02/11 Female reference range changed. Performed By: #### C JEWELS, LIPD #### [facility] [address] [place], [place] [id number] Anion gap [Moles/Vol] 15 mmol/L Normal 12-20 [facility] Comment on above: Result Comment: Effe ctive 03/19/2019 reference range changed. Performed By: #### C JEWELS LIPD #### [facility] [address] [place], [place] [id number] AST [Catalytic activity/Vol] 21 U/L Normal 9-34 [facility] Comment on above: Performed By: #### C JEWELS LIPD #### [facility] [address] [place], [place] [id number] BUN/CRE[employer] 28 Ratio High 6-22 [facility] Comment on above: Performed By: #### C JEWELS LIPD #### [facility] [address], [place] [id number] Calcium [Mass/Vol] 9.3 mg/dL Normal 8.6-10.2 [facility] Comment on above: Performed By: #### C JEWELS, LIPD #### [facility] [address] [facility] [place] [id number] Chloride [Moles/Vol] 106 mmol/L Normal 98-107 [facility] Comment on above: Performed By: #### C MP, LIPD #### [facility] [address] [facility] [place] [id number] CO2 [Moles/Vol] 24 mmol/L Normal 20-31 [facility] Comment on above: Performed By: #### C MP, LIPD #### [facility] [address], [place] [id number] Creatinine [Mass/Vol] 1.1 mg/dL Normal 0.6-1.4 [facility] Comment on above: Performed By: #### C MP, LIPD #### [facility] [address], [place] [id number] eGFRAA 58 mL/min/1.73m2 Low >60 [facility] Comment on above: Performed By: #### C MP, LIPD #### [facility] [address] [facility] [place] [id number] eGFRNAA 48 mL/min/1.73m2 Low >60 [facility] Comment on above: Performed By: #### C MP, LIPD #### [facility] [address] [facility] [place] [id number] Globulin (S) [Mass/Vol] 2.5 g/dL Normal 1.9-3.7 [facility] Comment on above: Performed By: #### C JEWELS, LIPD #### [facility] [address], [place] [id number] Glucose [Mass/Vol] 94 mg/dL Normal 65-99 [facility] Director Emergency Comment on above: Result Comment: For FASTING Glucose --- ADA reference ranges: Normal 65-99 mg/dl Prediabetes 100-125 Diabetes >/= 126 Performed By: #### C JEWELS, LIPD #### [facility] [address], [place] [id number] Potassium [Moles/Vol] 4.4 mmol/L Normal 3.5-5.5 [facility] Comment on above: Performed By: #### C JEWELS, LIPD #### [facility] [address], [place] [id number] Protein [Mass/Vol] 6.7 g/dL Normal 6.1-8.1 [facility] Director Emergency Comment on above: Performed By: #### C MP, LIPD #### [facility] [address] [facility] [place] [id number] Sodium [Moles/Vol] 141 mmol/L Normal 135-146 [facility] Director Emergency Comment on above: Performed By: #### C MP, LIPD #### [facility] [address] [facility] [place] [id number] TBIL <0.3 Normal [facility] [place] [facility] Comment on above: Performed By: #### C JEWELS, LIPD #### [facility] [address], [place] [id number] Urea nitrogen [Mass/Vol] 32 mg/dL High 7-25 [facility] Specialist Comment on above: Performed By: #### C MP, LIPD #### [facility] [address] [place], [place] [id number] Lipid Panelon 06-10-2021 Cholesterol [Mass/Vol] 237 mg/dL High 125-200 [facility] Comment on above: Result Comment: Low risk < 200mg/dL Borderline risk 201-239 mg/dl High risk > or equal to 240 Performed By: #### C JEWELS, LIPD #### [facility] [address], [place] [id number] Cholesterol in HDL [Mass/Vol] 100 mg/dL Normal >40 [facility] Specialist Comment on above: Result Comment: High Cardiovascular Risk HDL <40 mg/dL Low Cardiovascular Risk HDL > or equal to 60 mg/dl Performed By: #### C JEWELS, LIPD #### [facility] [address] [place], [place] [id number] Cholesterol in LDL [Mass/Vol] 124 mg/dL Normal [facility] Specialist Comment on above: Result Comment: LDL ATP III CLASSIFICATION LDL less than 100 mg/dl Optimal LDL 100-129 mg/dl Near or above optimal LDL 130-159 Borderline high LDL 160-189 High LDL greater than 189 mg/dl Very High Performed By: #### C JEWELS, LIPD #### [facility] [address], [place] [id number] Cholesterol in VLDL [Mass/Vol] 13 mg/dL Normal [facility] Specialist Comment on above: Performed By: #### C JEWELS, LIPD #### [facility] [address] [facility] [place] [id number] Cholesterol.total/Chol esterol in HDL [Mass ratio] 2 {ratio} Normal [facility] Specialist Comment on above: Performed By: #### C MP, LIPD #### [facility] [address] [place], [place] [id number] Triglyceride [Mass/Vol] 67 mg/dL Normal 30-150 [facility] Director Emergency Comment on above: Result Comment: TRIG ATPIII CLASSIFICATIONS TRIG less than 150 mg/dl Normal TRIG 150-199 mg/dl Borderline High TRIG 200-500 mg/dl High TRIG greather than 500 mg/dl Very High Performed By: #### C JEWELS, JARVIS #### [facility] [address] [place], [place] [id number] ECHOCARDIO M/2D COMPLETEon 0 10-24-2020 ECHOCARDIO M/2D COMPLETE Patient: RADHA BARRAZA Exam Date: 10/24/2020 : 1945 Gender:F Ordering : DR SHARI MCKEON M.D. Admission #: [id number] Family : Order #: [id number] CLICK HERE TO VIEW EXAM ECHOCARDIOGRAM REPORT [...] Area(A4C): 13.90 cm2 Left Atrium Systolic Volume(A2C): 45148 mm3 Left Atrium Systolic Volume(A4C): 84674 mm3 Mitral Valve MV E to A Ratio: 1.10 Mitral Valve A-Wave Peak Velocity: 68.60 cm/s Mitral Valve E-Wave Peak Velocity: 74.50 cm/s Deceleration Time: 259 ms Right Ventricle Aorta AO Root Diam: 2.60 cm Aortic Valve Peak Velocity (Antegrade Flow): 161.00 cm/s, 230.00 cm/s AoV Area (Peak Daniel): 1.93 cm2 AoV Area (VTI): 1.90 cm2 Deceleration [place]: 1880 mm/s2 Pressure Half-Time: 528 ms Peak [...] Burrows M.D. on 10/24/2020 at 19:17 Normal [facility] HEMOGLOBINon 09-30-2020 Hemoglobin (Bld) [Mass/Vol] 12.3 g/dL Normal 12.0-16.0 [facility] Comment on above: Performed By: #### H GB #### [facility] [address] [place] [address] Geraldo Gaitan H PYLORI TISSUEon 02-01-2020 H PYL TISSUE, UREASE Negative Normal NEGATIVE [facility] Comment on above: Performed By: #### H GB #### [facility] [address] [id number] Geraldo Gaitan COVID-19 PCRon 01-27-2020 SARS-CoV-2 (COVID-19) RNA VIVIENNE+probe Ql (Unsp spec) Not detected Normal Not Detected [facility] Comment on above: Result Comment: This nucleic acid amplification test was developed and its performance characteristics determined by [facility]. Nucleic acid amplification tests include PCR and [...] Performed By: #### C VDSTAT, CVDPCR #### [facility] [address] [place] [address] Geraldo Gaitan PRIORITY COVID PROCESSINGon 01-27-2020 Comment Comment Normal [facility] Comment on above: Result Comment: Rece ived Performed By: #### C VDSTAT, CVDPCR #### [facility] [address] [place], [place] [id number] Geraldo Gaitan CULTURE BLOODon 01-08-2020 Microscopic examination [...] F Trimethoprim/Sulfamethoxazo le <=20 S F Normal [facility] Comment on above: Performed By: #### H GB #### [facility] [address] [place] [address] Geraldo Charlesen BLOOD CULTURE ID PANELon A. baumannii Not detected Normal [facility] Comment on above: Performed By: #### B MIRYAM #### [facility] [address] [place] [address] Geraldo Gaitan BCID CONTROLS PASSED [facility] Comment on above: Performed By: #### B MIRYAM #### [facility] [address] [place] [address] Geraldo Charlesen BCIDBTHD BLOOD CULTURE BOTTLE INFORMATION Normal [facility] Comment on above: Performed By: #### B MIRYAM #### [facility] [address] [place] [address] Geraldo Charlesen BCIDHD1 ANTIMICROBIAL RESIST ANCE GENES Normal [facility] Comment on above: Performed By: #### B MIRYAM #### [facility] [address] [place] [address] Geraldo Gaitan BCIDHD2 SEE BELOW [facility] Comment on above: Result Comment: KPC- carbapenem resistance gene, mecA- methecillin resistance gene, van A/B- vancomycin resistance gene Note: Antimicrobial resitance can occur via multiple mechanisms. A Not Detected result for the [employer] antomicrobial resistance gene assays does not indicate antimicrobial susceptibility. Subculturing is required for specis identificationand susceptibility testing of isolates. Performed By: #### B MIRYAM #### [facility] [address] [place] [address] Geraldo Kandy BCIDHD3 Positive Normal [facility] Comment on above: Performed By: #### B MIRYAM #### [facility] [address] [place] [address] Geraldo Kandy BCIDHD3 Negative Normal [facility] Comment on above: Performed By: #### B MIRYAM #### [facility] [address] [place] [address] Geraldo Kandy BCIDHD5 YEAST Normal [facility] Comment on above: Performed By: #### B MIRYAM #### [facility] [address] [place] [address] Geraldo Kandy BCIDHD6 SEE BELOW Normal [facility] Comment on above: Result Comment: Note : All genus and species BCID [employer] results will be verified post subculturing via Maldi-Tof MS testing methodology. Performed By: #### B MIRYAM #### [facility] [address] [place] [address] Geraldo Kandy Bottle Set: Set 2 Normal [facility] Comment on above: Performed By: #### B MIRYAM #### [facility] [address] [place] [address] Geraldo Kandy Bottle: Aerobic Normal [facility] Comment on above: Performed By: #### B MIRYAM #### [facility] [address] [place] [address] Geraldo Kandy Naomi albicans Not detected Normal [facility] Comment on above: Performed By: #### B MIRYAM #### [facility] [address] [place] [address] Geraldo Kandy Naomi glabrata Not detected Normal [facility] Comment on above: Performed By: #### B MIRYAM #### [facility] [address] [place] [address] Geraldo Kandy Naomi Krusei Not detected Normal [facility] Comment on above: Performed By: #### B MIRYAM #### [facility] [address] [place] [address] Geraldo Kandy Naomi Parapsilosis Not detected Normal [facility] Comment on above: Performed By: #### B MIRYAM #### [facility] [address] [place] [address] Geraldo Kandy Naomi Tropicalis Not detected Normal [facility] Comment on above: Performed By: #### B MIRYAM #### [facility] [address] [place] [address] Geraldo Kandy E. Cloacae complex Not detected Normal [facility] Comment on above: Performed By: #### B MIRYAM #### [facility] [address] [place] [address] Geraldo Kandy Enterobacteriaceae Detected Invalid Interpretation Code [facility] Comment on above: Performed By: #### B MIRYAM #### [facility] [address] [place] [address] Geraldo Kandy Enterococcus Not detected Normal [facility] Comment on above: Performed By: #### B MIRYAM #### [facility] [address] [place] [address] Geraldo Kandy Escheria coli Detected Normal [facility] Comment on above: Performed By: #### B MIRYAM #### [facility] [address] [place] [address] Geraldo Kandy K. oxytoca Not detected Normal [facility] Comment on above: Performed By: #### B MIRYAM #### [facility] [address] [place] [address] Geraldo Kandy K. pneumoniae Not detected Normal [facility] Comment on above: Performed By: #### B MIRYAM #### [facility] [address] [place] [address] Geraldo Kandy KPC Resistant Gene Not detected Normal [facility] Comment on above: Performed By: #### B MIRYAM #### [facility] [address] [place] [address] Geraldo Kandy List. monocytogenes Not detected Normal [facility] Comment on above: Performed By: #### B MIRYAM #### [facility] [address] [place] [address] Geraldo Kandy mecA Resistant Gene Not detected Normal [facility] Comment on above: Performed By: #### B MIRYAM #### [facility] [address] [place] [address] Geraldo Kandy Proteus Not detected Normal [facility] Comment on above: Performed By: #### B MIRYAM #### [facility] [address] [place] [address] Geraldo Gaitan Pseud. aeruginosa Not detected Normal [facility] Comment on above: Performed By: #### B MIRYAM #### [facility] [address] [place] [address] Geraldo Gaitan Seratia marcescens Not detected Normal [facility] Comment on above: Performed By: #### B MIRYAM #### [facility] [address] [place] [address] Geraldo Gaitan Site: R AC Normal [facility] Comment on above: Performed By: #### B MIRYAM #### [facility] [address] [place] [address] Kandy Staph. aureus Not detected Normal [facility] Comment on above: Performed By: #### B MIRYAM #### [facility] [address] [place] [address] Geraldo Gaitan Staphylococcus Not detected Normal [facility] Comment on above: Performed By: #### B MIRYAM #### [facility] [address] [place] [address] Geraldo Gaitan Strep. agalactiae Not detected Normal [facility] Comment on above: Performed By: #### B MIRYAM #### [facility] [address] [place] [address] Geraldo Gaitan Strep. pneumoniae Not detected Normal [facility] Comment on above: Performed By: #### B MIRYAM #### [facility] [address] [place] [address] Geraldo Gaitan Strep. pyogenes Not detected Normal [facility] Comment on above: Performed By: #### B MIRYAM #### [facility] [address] [place] [address] Geraldobhumi Gaitan Streptococcus Not detected Normal [facility] Comment on above: Performed By: #### B MIRYAM #### [facility] [address] [place] [address] Geraldo Gaitan Aicha/B Resist. Gene Not detected Normal [facility] Comment on above: Performed By: #### B MIRYAM #### [facility] [address] [id number] Geraldo Kandy CBC AUTO DIFFon 01-02-2020 BASO # 0.0 103/ul Normal 0.0-0.1 [facility] Comment on above: Performed By: #### C BC #### [facility] [address] [id number] Geraldo Kandy Basophils/100 WBC (Bld) 0.3 % Normal 0.2-2.0 [facility] Comment on above: Performed By: #### C BC #### [facility] [address] [address] Geraldo Kandy EO # 0.0 103/ul Normal 0.0-0.7 [facility] Comment on above: Performed By: #### C BC #### [facility] [address] [place] [address] Geraldo Kandy Eosinophils/100 WBC (Bld) 0.3 % Critically low 0.9-7.0 [facility] Comment on above: Performed By: #### C BC #### [facility] [address] [place] [address] Geraldo Kandy Erythrocyte distribution width (RBC) [Ratio] 12.6 % Normal 11.0-15.0 [facility] Comment on above: Performed By: #### C BC #### [facility] [address] [place] [address] Geraldo Kandy Hematocrit (Bld) [Volume fraction] 42.7 % Normal 36.0-48.0 [facility] Comment on above: Performed By: #### C BC #### [facility] [address] [place] [address] Geraldo Kandy Hemoglobin (Bld) [Mass/Vol] 13.6 g/dL Normal 12.0-16.0 [facility] Comment on above: Performed By: #### C BC #### [facility] [address] [place] [address] Geraldo Kandy IG # 0.04 10e3/ul Critically high 0.00-0.03 [facility] Comment on above: Performed By: #### C BC #### [facility] [address] [place] [address] Geraldo Kandy IG % 0.3 % Normal 0.0-0.5 [facility] Comment on above: Performed By: #### C BC #### [facility] [address] [place] [address] Geraldo Kandy LYMPH # 0.5 103/ul Critically low 1.2-3.8 [facility] Comment on above: Performed By: #### C BC #### [facility] [address] [place] [address] Geraldobhumi Gaitan Lymphocytes/100 WBC (Bld) 4.4 % Critically low 20.5-60.0 [facility] Comment on above: Performed By: #### C BC #### [facility] [address] [place] [address] Geraldobhumi Gaitan MANUAL DIFF REQ NO Normal [facility] Comment on above: Performed By: #### C BC #### [facility] [address] [place] [address] Geraldo Kandy MCH (RBC) [Entitic mass] 30.6 pg Normal 26.7-34.0 [facility] Comment on above: Performed By: #### C BC #### [facility] [address] [place] [address] Geraldobhumi Gaitan MCHC (RBC) [Mass/Vol] 31.9 g/dL Normal 29.9-35.2 [facility] Comment on above: Performed By: #### C BC #### [facility] [address] [place] [address] Geraldo Kandy MCV (RBC) [Entitic vol] 96.0 fL Normal 81.0-99.0 [facility] Comment on above: Performed By: #### C BC #### [facility] [address] [place] [address] Geraldo Kandy MONO # 0.8 103/ul Normal 0.3-0.8 [facility] Comment on above: Performed By: #### C BC #### [facility] [address] [place] [address] Geraldo Kandy Monocytes/100 WBC (Bld) 6.5 % Normal 1.7-12.0 [facility] Comment on above: Performed By: #### C BC #### [facility] [address] [place] [address] Geraldo Gaitan NEUT # 10.1 103/ul Critically high 1.4-6.5 [facility] Comment on above: Performed By: #### C BC #### [facility] [address] [place], [place] [id number] Geraldo Gaitan Neutrophils/100 WBC (Bld) 88.2 % Critically high 43.0-75.0 [facility] Comment on above: Performed By: #### C BC #### [facility] [address] [place], [place] [id number] Geraldo Gaitan Platelet mean volume (Bld) [Entitic vol] 9.8 fL Normal 9.5-13.5 [facility] Comment on above: Performed By: #### C BC #### [facility] [address] [place] [address] Geraldo Gaitan PLT 254 103/ul Normal 150-450 [facility] Comment on above: Performed By: #### C BC #### [facility] [address] [place], [place] [id number] Geraldo Gaitan RBC 4.45 106/ul Normal 4.20-5.40 [facility] Comment on above: Performed By: #### C BC #### [facility] [address] [place], [place] [id number] Geraldo Gaitan CT HEAD WO CONon 01-02-2020 [...] REMY NESS Date: 2020-01-02 19:00 Normal [facility] CULTURE BLOODon 01-02-2020 Microscopic examination of blood, culture Culture Observations: No growth at 5 days Normal [facility] Comment on above: Performed By: #### H SAKINA #### [facility] [address] [place] [address] Geraldo Kandy CULTURE URINEon 01-02-2020 CULTURE URINE Culture Observations : Light growth of mixed genital eliezer.No potential pathogens seen. Normal [facility] Comment on above: Performed By: #### H SAKINA #### [facility] [address] [place] [address] Geraldo Kandy ER URINE PROFILEon 0 Bilirubin Ql (U) Negative Normal NEGATIVE [facility] Comment on above: Performed By: #### MELODY CORDOVA #### [facility] [address] [place] [address] Geraldo Kandy Clarity (U) SL CLOUDY Normal [facility] Comment on above: Performed By: #### MELODY CORDOVA #### [facility] [address] [place] [address] Geraldo Kandy Color (U) LT. YELLOW Normal YELLOW [facility] Comment on above: Performed By: #### MELODY CORDOVA #### [facility] [address] [place] [address] Geraldo Kandy ERUAHD A micrscopic examina tion will be performed if indicated. Normal [facility] Comment on above: Performed By: #### MELODY CORDOVA #### [facility] [address] [place] [address] Geraldo Kandy Glucose Ql (U) Negative Normal NEGATIVE [facility] Comment on above: Performed By: #### MELODY CORDOVA #### [facility] [address] [place] [address] Geraldo Kandy Hemoglobin Ql (U) SMALL Normal NEGATIVE [facility] Comment on above: Performed By: #### MELODY CORDOVA #### [facility] [address] [place] [address] Geraldo Kandy Ketones Ql (U) Negative Normal NEGATIVE [facility] Comment on above: Performed By: #### MELODY CORDOVA #### [facility] [address] [place] [address] Geraldo Kandy LEUKOCYTES TRACE Normal NEGATIVE [facility] Comment on above: Performed By: #### MELODY CORDOVA #### [facility] [address] [place] [address] Geraldo Kandy Nitrite Ql (U) Negative Normal NEGATIVE [facility] Comment on above: Performed By: #### MELODY CORDOVA #### [facility] [address] [place] [address] Geraldo Kandy pH (U) 7.0 [pH] Normal 5-9 [facility] Comment on above: Performed By: #### MELODY CORDOVA #### [facility] [address] [place] [address] Geraldo Kandy Protein Ql (U) 30 mg/dl Normal [facility] Comment on above: Performed By: #### MELODY CORDOVA #### [facility] [address] [place] [address] Geraldo Kandy SPEC GRAVITY 1.015 Normal 1.005-<=1. 025 [facility] Comment on above: Performed By: #### MELODY CORDOVA #### [facility] [address] [place] [address] Geraldo Kandy UR MICRO IND INDICATED Normal [facility] Comment on above: Performed By: #### MELODY CORDOVA #### [facility] [address] [place] [address] Geraldo Kandy Urobilinogen Qn (U) 0.2 {Eileen'U}/dL Normal [facility] Comment on above: Performed By: #### MELODY CORDOVA #### [facility] [address] [place] [address] Geraldo Kandy LACTATE/LACTIC ACIDon 2019 Lactate [Moles/Vol] 1.1 mmol/L Normal 0.7-2.0 [facility] Comment on above: Performed By: #### H GB #### [facility] [address] [place] [address] Geraldo Kandy PROCALCITONINon 01-02-2020 PCT header 1 SEE BELOW Normal [facility] Comment on above: Result Comment: PCT <0.5ng/mL: Systemic infection (sepsis) is not likely, local bacterial infection possible, low risk for progression to severe systemic infection (severe sepsis) Performed By: #### P RL #### [facility] [address] [place] [address] Geraldo Kandy PCT header 2 SEE BELOW Normal [facility] Comment on above: Result Comment: PCT >/=0.5 and <2 ng/mL: Systemic infection (sepsis) is possible, moderate risk for progression to severe systemic infection (severe sepsis) Performed By: #### P RL #### [facility] [address] [place] [address] Geraldo Kandy PCT header 3 SEE BELOW Normal [facility] Comment on above: Result Comment: PCT >/=2.0 and <10 ng/mL: Systemic infection (sepsis) is likely, unless other causes are known, high risk for progession to severe systemic infection(severe sepsis) Performed By: #### P RL #### [facility] [address] [place] [address] Geraldo Kandy PCT header 4 SEE BELOW Normal [facility] Comment on above: Result Comment: PCT >/= 10 ng/mL: Important systemic inflammatory response almost exclusively due to severe bacterial sepsis or septic shock, high likelihood of severe sepsis or septic shock Performed By: #### P RL #### [facility] [address] [place] [address] Geraldo Kandy PROCALCITONIN 0.62 ng/mL Critically high 0.00-0.50 [facility] Comment on above: Performed By: #### P RL #### [facility] [address] [place], [place] [id number] Geraldo Kandy PROF 14(COMP METB)on 020 Albumin [Mass/Vol] 3.6 g/dL Normal 3.5-5.0 [facility] Comment on above: Performed By: #### C MP #### [facility] [address] [place], [place] [id number] Geraldo Kandy Albumin/Globulin [Mass ratio] 0.8 {ratio} Normal [facility] Comment on above: Performed By: #### C MP #### [facility] [address] [place], [place] [address] Geraldo Kandy ALP [Catalytic activity/Vol] 95 U/L Normal 38-126 [facility] Comment on above: Performed By: #### C MP #### [facility] [address] [place] [address] Geraldo Kandy ALT [Catalytic activity/Vol] 32 U/L Normal 9-52 [facility] Comment on above: Performed By: #### C MP #### [facility] [address] [place], [place] [address] Geraldo Kandy Anion gap [Moles/Vol] 13.8 mmol/L Normal [facility] Comment on above: Performed By: #### C MP #### [facility] [address] [place], [place] [address] Geraldo Kandy AST [Catalytic activity/Vol] 42 U/L Critically high 14-36 [facility] Comment on above: Performed By: #### C MP #### [facility] [address] [place], [place] [address] Geraldo Kandy Bilirubin [Mass/Vol] 0.5 mg/dL Normal 0.2-1.3 [facility] Comment on above: Performed By: #### C MP #### [facility] [address] [place], [place] [address] Geraldo Kandy Calcium [Mass/Vol] 9.4 mg/dL Normal 8.4-10.2 [facility] Comment on above: Performed By: #### C MP #### [facility] [address] [place], [place] [address] Geraldo Kandy Chloride [Moles/Vol] 100 mmol/L Normal 98-107 [facility] Comment on above: Performed By: #### C MP #### [facility] [address] [id number] Geraldo Kandy CO2 [Moles/Vol] 24.6 mmol/L Normal 22.0-30.0 [facility] Comment on above: Performed By: #### C MP #### [facility] [address] [address] Geraldo Kandy Creatinine [Mass/Vol] 1.36 mg/dL Critically high 0.52-1.04 [facility] Comment on above: Performed By: #### C MP #### [facility] [address] [place] [address] Geraldo Kandy EGFR-AF [facility] [place] 46 mL/min/1.73m2 Critically low >=60 [facility] Comment on above: Performed By: #### C MP #### [facility] [address] [address] Geraldo Kandy EGFR-NON AF [place] 38 mL/min/1.73m2 Critically low >=60 [facility] Comment on above: Performed By: #### C MP #### [facility] [address] [place], [place] [id number] Geraldo Kandy Globulin (S) [Mass/Vol] 4.5 g/dL Normal [facility] Comment on above: Performed By: #### C MP #### [facility] [address] [address] Geraldo Kandy Glucose [Mass/Vol] 120 mg/dL Critically high 74-106 [facility] Comment on above: Performed By: #### C MP #### [facility] [address] [id number] Geraldo Kandy Potassium [Moles/Vol] 3.4 mmol/L Normal 3.4-5.0 [facility] Comment on above: Performed By: #### C MP #### [facility] [address] [address] Geraldo Kandy Protein [Mass/Vol] 8.1 g/dL Normal 6.1-8.2 [facility] Comment on above: Performed By: #### C MP #### [facility] [address] [place] [address] Geraldo Kandy Sodium [Moles/Vol] 135 mmol/L Critically low 137-145 Th [facility] Comment on above: Performed By: #### C MP #### [facility] [address] [place] [address] Geraldo Kandy Urea nitrogen [Mass/Vol] 22.0 mg/dL Critically high 7.0-17.0 [facility] Comment on above: Performed By: #### C MP #### [facility] [address] [place] [address] Geraldo Kandy Urea nitrogen/Creatinine [Mass ratio] 16.2 mg/mg Normal [facility] Comment on above: Performed By: #### C MP #### [facility] [address] [place] [address] Geraldo Kandy RESPIRATORY PANEL PLUSon Adenovirus Not detected Normal NOT DETECTED [facility] Comment on above: Performed By: #### R SPLUS #### [facility] [address] [place] [address] Geraldo Kandy B. Parapertusis Not detected Normal NOT DETECTED [facility] Comment on above: Performed By: #### R SPLUS #### [facility] [address] [place] [address] Geraldo Kandy B. Pertussis Not detected Normal NOT DETECTED [facility] Comment on above: Performed By: #### R SPLUS #### [facility] [address] [place] [address] Geraldo Kandy Chlamydia Pneumoniae Not detected Normal NOT DETECTED [facility] Comment on above: Performed By: #### R SPLUS #### [facility] [address] [place] [address] Geraldo Kandy Coronavirus 229E Not detected Normal NOT DETECTED [facility] Comment on above: Performed By: #### R SPLUS #### [facility] [address] [place] [address] Geraldo Kandy Coronavirus HKU1 Not detected Normal NOT DETECTED [facility] Comment on above: Performed By: #### R SPLUS #### [facility] [address] [place] [address] Geraldo Kandy Coronavirus NL63 Not detected Normal NOT DETECTED The [facility] Comment on above: Performed By: #### R SPLUS #### [facility] [address] [place] [address] Geraldo Kandy Coronavirus OC43 Not detected Normal NOT DETECTED The [facility] Comment on above: Performed By: #### R SPLUS #### [facility] [address] [place] [address] Geraldo Kandy Influenza A H1 2009 Not detected Normal NOT DETECTED [facility] Comment on above: Performed By: #### R SPLUS #### [facility] [address] [place] [address] Geraldo Kandy Influenza B Not detected Normal NOT DETECTED [facility] Comment on above: Performed By: #### R SPLUS #### [facility] [address] [place] [address] Geraldo Kandy Metapneumovirus Not detected Normal NOT DETECTED The [facility] Comment on above: Performed By: #### R SPLUS #### [facility] [address] [place] [address] Geraldo Kandy Mycoplas. Pneumoniae Not detected Normal NOT DETECTED [facility] Comment on above: Performed By: #### R SPLUS #### [facility] [address] [place] [address] Geraldo Kandy Parainfluenza 1 Not detected Normal NOT DETECTED [facility] Comment on above: Performed By: #### R SPLUS #### [facility] [address] [place] [address] Geraldo Kandy Parainfluenza 2 Not detected Normal NOT DETECTED [facility] Comment on above: Performed By: #### R SPLUS #### [facility] [address] [place] [address] Geraldo Kandy Parainfluenza 3 Not detected Normal NOT DETECTED [facility] Comment on above: Performed By: #### R SPLUS #### [facility] [address] [place] [address] Geraldo Gaitan Parainfluenza 4 Not detected Normal NOT DETECTED [facility] Comment on above: Performed By: #### R SPLUS #### [facility] [address] [place] [address] Geraldobhumi Gaitan Rhino/Enterovirus Not detected Normal NOT DETECTED The [facility] Comment on above: Performed By: #### R SPLUS #### [facility] [address] [place] [address] Geraldo Kandy RP2 Header 1 RESPIRATORY PANEL: VIRUSES Normal [facility] Comment on above: Performed By: #### R SPLUS #### [facility] [address] [place] [address] Kandy RP2 Header 2 RESPIRATORY PANEL: BACTERIA Normal [facility] Comment on above: Performed By: #### R SPLUS #### [facility] [address] [place] [address] Geraldo Gaitan RP2 Header 4 EUA SEE BELOW Normal [facility] Comment on above: Result Comment: This test is not yet approved or cleared by the [place] FDA. When there are no FDA-approved or cleared tests available, and other criteria are met, FDA can make tests available under an emergency access mechanism called an Emergency Use Authorization (EUA). The EUA for this test is supported by the [place] of Health and Human Service?s (HHS?s) declaration [...] used). Performed By: #### R SPLUS #### [facility] [address] [place] [address] Geraldo Kandy RSV Not detected Normal NOT DETECTED The [facility] Comment on above: Performed By: #### R SPLUS #### [facility] [address] [place] [address] Geraldo Kandy SARS-CoV-2 (COVID-19) RNA VIVIENNE+probe Ql (Unsp spec) Not detected Normal NOT DETECTED The [facility] Comment on above: Performed By: #### R SPLUS #### [facility] [address] [place], [place] [id number] Geraldo Kandy URINE MICROSCOPIC ONLYon BACTERIA MODERATE Normal NONE SEEN The [facility] Comment on above: Performed By: #### KANDICE CORDOVARO #### [facility] [address] [place] [address] Geraldo Kandy Bacteria identified Cx Nom (U) INDICATED Normal [facility] Comment on above: Performed By: #### KANDICE CORDOVARO #### [facility] [address] [place] [address] Geraldo Kandy CAST NONE SEEN Normal NONE SEEN The [facility] Comment on above: Performed By: #### KANDICE CORDOVARO #### [facility] [address] [place] [address] Geraldo Kandy Crystals LM Nom (Urine sed) NONE SEEN Normal NONE SEEN The [facility] Comment on above: Performed By: #### KANDICE CORDOVARO #### [facility] [address] [place] [address] Geraldo Kandy Epithelial cells LM Ql (Urine sed) RARE Normal [facility] Comment on above: Performed By: #### KANDICE CORDOVARO #### [facility] [address] [place] [address] Geraldo Kandy MUCOUS NONE SEEN Normal NONE SEEN The [facility] Comment on above: Performed By: #### KANDICE CORDOVARO #### [facility] [address] [place] [address] Geraldo Kandy RBC 0-2 Normal 0-2 [facility] Comment on above: Performed By: #### MELODY CORDOVA #### [facility] [address] [place] [address] Geraldo Kandy WBC 5-10 Normal NONE SEEN The [facility] Comment on above: Performed By: #### KANDICE CORDOVARO #### [facility] [address] [id number] Geraldo Gaitan XR CHEST 1 Von 01-02-2020 [...] by: REMY NESS Date: 2020-01-02 18:52 Normal [facility] Vital Signs Date Time Vital Sign Value Performing Clinician Facility 11-02-2024 09:31-0400 Body height 149.9 cm Shahriar Warren DO Work Phone: [facility] 11-02-2024 09:31-0400 Body mass index (BMI) [Ratio] 21.61 kg/m2 Shahriar [employer] Work Phone: [facility] 11-02-2024 09:31-0400 Body weight 48.53 kg Shahriar MunizXueersi DO Work Phone: [facility] 10-10-2024 11:06-0400 Body height 149.9 cm Shahriar Warren DO Work Phone: [facility] 10-10-2024 11:06-0400 Body mass index (BMI) [Ratio] 21.61 kg/m2 Shahriar Warren DO Work Phone: [facility] 10-10-2024 11:06-0400 Body weight 48.53 kg Shahriar Warren DO Work Phone: [facility] 10-10-2024 11:06-0400 Diastolic blood pressure 76 mm[Hg] Shahriar Warren DO Work Phone: [facility] 10-10-2024 11:06-0400 Systolic blood pressure 132 mm[Hg] Shahriar Warren DO Work Phone: [facility] 10-07-2024 11:40-0400 Body temperature 98.7 [degF] Shari Mckeon MD Work Phone: [facility] 10-07-2024 11:40-0400 Diastolic blood pressure 66 mm[Hg] Shari Mckeon MD Work Phone: [facility] 10-07-2024 11:40-0400 Heart rate 84 /min Shari Mckeon MD Work Phone: [facility] 10-07-2024 11:40-0400 Respiratory rate 16 /min Shari Mckeon MD Work Phone: [facility] 10-07-2024 11:40-0400 SaO2% (BldA) [Mass fraction] 94 % Shari Mckeon MD Work Phone: [facility] 10-07-2024 11:40-0400 Systolic blood pressure 154 mm[Hg] Shari Mckeon MD Work Phone: [facility] 10-06-2024 10:40-0400 Inhaled oxygen flow rate 8 L/min Shari Mckeon MD Work Phone: [facility] 10-06-2024 04:42-0400 Body height 149.86 cm Shari Mckeon MD Work Phone: [facility] 10-06-2024 04:42-0400 Body weight 49 kg Shari Mckeon MD Work Phone: [facility] 09-26-2024 14:01-0400 Body height 149.9 cm China Ortiz FLOORING INSTALLER Work Phone: [facility] 09-26-2024 14:01-0400 Body mass index (BMI) [Ratio] 21.97 kg/m2 China Ortiz FLOORING INSTALLER Work Phone: [facility] 09-26-2024 14:01-0400 Body weight 49.35 kg China Ortiz FLOORING INSTALLER Work Phone: [facility] 09-26-2024 14:01-0400 Diastolic blood pressure 70 mm[Hg] China Ortiz FLOORING INSTALLER Work Phone: [facility] 09-26-2024 14:01-0400 Heart rate 62 /min China Ortiz FLOORING INSTALLER Work Phone: [facility] 09-26-2024 14:01-0400 SaO2% (BldA) [Mass fraction] 95 % China Ortiz FLOORING INSTALLER Work Phone: [facility] 09-26-2024 14:01-0400 Systolic blood pressure 122 mm[Hg] China Ortiz FLOORING INSTALLER Work Phone: [facility] 05-09-2024 10:42-0500 Diastolic blood pressure 70 mm[Hg] China Ortiz FLOORING INSTALLER Work Phone: [facility] 05-09-2024 10:42-0500 Systolic blood pressure 120 mm[Hg] China Ortiz FLOORING INSTALLER Work Phone: [facility] 05-09-2024 10:34-0500 Body height 149.9 cm China Ortiz FLOORING INSTALLER Work Phone: [facility] 05-09-2024 10:34-0500 Body mass index (BMI) [Ratio] 20.28 kg/m2 China Ortiz FLOORING INSTALLER Work Phone: [facility] 05-09-2024 10:34-0500 Body temperature 99.3 [degF] China Ortiz FLOORING INSTALLER Work Phone: [facility] 05-09-2024 10:34-0500 Body weight 45.54 kg China Ortiz FLOORING INSTALLER Work Phone: [facility] 05-09-2024 10:34-0500 Heart rate 86 /min China Ortiz FLOORING INSTALLER Work Phone: [facility] 05-09-2024 10:34-0500 SaO2% (BldA) [Mass fraction] 96 % China Ortiz FLOORING INSTALLER Work Phone: [facility] 01-24-2024 13:04-0500 Body height 149.9 cm Roger Rusher DPM Work Phone: [facility] 01-24-2024 13:04-0500 Body mass index (BMI) [Ratio] 20.2 kg/m2 Roger Pedro DPM Work Phone: [facility] 01-24-2024 13:04-0500 Body weight 45.36 kg Roger Vasquez DPM Work Phone: [facility] Encounters Encounter Date Encounter Type Care Provider Facility Start: 11-15-2024 End: 11-15-[address] [facility] Start: 11-02-2024 End: 11-02-2024 Postop follow up visit related to original px Shahriar Warren DO Work Phone: [facility] Comment on above: Acute cholecystitis (Primary Dx) Start: 11-02-2024 End: 11-02-2024 ambulatory SHAHRIAR WARREN Not Available Start: 11-01-2024 End: 11-01-2024 ambulatory CHINA ORTIZ [facility] Start: 10-10-2024 End: 10-10-2024 Postop follow up visit related to original px Shahriar Warren DO Work Phone: [facility] Comment on above: Acute cholecystitis (Primary Dx) Start: 10-10-2024 End: 10-10-2024 ambulatory SHAHRIAR WARREN Not Available Start: 10-07-2024 End: 10-07-2024 External Result Encounter Shahriar Warren DO Work Phone: [facility] External Department Unsolicited Start: 10-07-2024 End: 10-07-2024 External Result Encounter Shahriar Warren DO Work Phone: [facility] External Department Unsolicited Start: 10-06-2024 End: 10-07-2024 Evaluation and management of inpatient Chema Gupta DO -[facility] Work Phone: Start: 09-28-2024 End: 10-01-2024 Follow-up encounter China Ortiz FLOORING INSTALLER Work Phone: [facility] Comment on above: Moderate aortic regu rgitation (Primary Dx); Mild aortic stenosis; SOB (shortness of breath) Start: 09-27-2024 End: 09-27-2024 ambulatory SHARI Amaral MIKE [facility] Start: 09-26-2024 End: 09-26-2024 Bamboo flowsheet China Diana FLOORING INSTALLER Work Phone: [facility] Start: 09-26-2024 End: 09-26-2024 Bamboo flowsheet China Diana FLOORING INSTALLER Work Phone: [facility] Start: 09-26-2024 End: 09-26-2024 Office outpatient visit 25 minutes China Ortiz FLOORING INSTALLER Work Phone: [facility] Comment on above: Primary hypertension (Primary Dx); Stage 3b chronic kidney disease (CMS-HCC); Pure hypercholesterolemia ; Irregular heart beat; Shortness of breath; Chronic obstructive pulmonary disease, unspecified COPD type (HCC); Moderate aortic regurgitation Start: 09-26-2024 End: 09-26-2024 ambulatory CHINA HOPSONYAMILEX Not Available Start: 06-06-2024 End: 06-06-2024 Clinisync Result Encounter Generic External Data Provider [facility] External [facility] Unsolicited Start: 06-06-2024 End: 06-06-2024 Clinisync Result Encounter Generic External Data Provider [facility] External [facility] Unsolicited Start: 05-09-2024 End: 05-09-2024 Bamboo flowsheet Chinalázaro Ortiz FLOORING INSTALLER Work Phone: [facility] Start: 05-09-2024 End: 05-09-2024 Bamboo flowsheet China Diana FLOORING INSTALLER Work Phone: [facility] Start: 05-09-2024 End: 05-09-2024 Office outpatient visit 15 minutes China Ortiz FLOORING INSTALLER Work Phone: [facility] Comment on [...] 02-20-2024 End: 02-20-2024 ambulatory Kei Espana MD Facility:[facility] Start: 02-07-2024 End: 02-07-2024 Refill Shari Mckeon MD Work Phone: [facility] Comment on above: Mild intermittent as thma, unspecified whether complicated (CMS/HCC) Start: 02-06-2024 End: 02-06-2024 ambulatory Kei Espana MD Facility:[facility] Start: 01-24-2024 End: 01-24-2024 Bamboo flowsheet Roger Vasquez DPM Work Phone: [facility] Start: 01-24-2024 End: 01-24-2024 Bamboo flowsheet Roger Vasquez DPM Work Phone: [facility] Start: 01-24-2024 End: 01-24-2024 Office outpatient visit 15 minutes Roger Vasquez DPM Work Phone: [facility] Comment on above: Dermatophytosis of n ail (Primary Dx); Dystrophic nail; Onychocryptosis; Pain of left great toe Start: 01-24-2024 End: 01-24-2024 ambulatory ROGER VASQUEZ Not Available Start: 01-23-2024 End: 01-23-2024 ambulatory Kei Espana MD Facility:[facility] Start: 01-09-2024 End: 01-09-2024 ambulatory Kei Espana MD Facility:[facility] Start: 12-28-2023 End: 12-28-2023 ambulatory [...] 12-12-2023 End: 12-12-2023 ambulatory Kei Espana MD Facility:[facility] Start: 12-09-2023 End: 12-09-2023 Refill Shari Mckeon MD Work Phone: [facility] Comment on above: Mild intermittent as thma, unspecified whether complicated ([facility]) Start: 11-28-2023 End: 11-28-2023 ambulatory Kei Espana MD Facility:[facility] Start: 11-17-2023 End: 11-17-2023 Refill Shari Mckeon MD Work Phone: [facility] Comment on above: Essential hypertensi on ([facility]) Start: 09-05-2023 End: 09-05-2023 ambulatory 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 Start: 04-21-2023 Refill Tamara Aparicio FLOORING INSTALLER Work Phone: [facility] Comment on above: Essential hypertensi on ([facility]) Start: 07-26-2022 End: 07-26-2022 ambulatory SHARI MCKEON Facility:[facility] Start: 06-29-2022 End: 06-30-2022 ambulatory SHARI MCKEON Facility:[facility] Start: 10-24-2020 End: 10-25-[address] SHARI MCKEON Facility:[facility] Start: 09-30-2020 End: 10-01-[address] SHARI MCKEON Facility:[facility] Start: 02-01-2020 End: 02-01-[address] CARLOS EDUARDO MENENDEZ Facility:[facility] Start: 01-30-2020 Encounter for prepro cedural laboratory examination DR CARLOS EDUARDO MENENDEZ [facility] Start: 01-26-2020 End: 01-27-[address] SHARI MCKEON Facility:[facility] Start: 01-26-2020 End: 01-27-2020 Encounter for preprocedural laboratory examination DR SHARI MCKEON Facility:[facility] Start: 01-02-2020 End: 01-02-[address] BÁRBARA BLUE Facility:[facility] Start: 05-25-2018 End: 05-26-2018 Patient encounter procedure DEFAULT PHYSICIAN Facility:[facility] Procedures Date Procedure Procedure Detail Performing Clinician [...] Start: 11-12-2024 Influenza vaccination Influenza Vaccine (#1) [facility] Start: 10-07-2024 [facility] Start: 10-06-2024 Referral to general surgeon [facility] Start: 10-06-2024 Hospital admission [facility] Start: 10-01-2024 End: 10-01-2026 Echocardiogram 2D complete Echocardiogram 2D complete Echocardiography Routine Moderate aortic regurgitation Mild aortic stenosis SOB (shortness of breath) Expected: 10/01/2024 (Approximate), Expires: 10/01/2026 [facility] Work Phone: Comment on above: Expected: 10/01/2024 (Approximate), Expi res: 10/01/2026 Start: 09-26-2024 End: 09-26-2025 CBC W Auto Differential panel - Blood CBC and differential Lab Routine Shortness of breath Expected: 09/26/2024 (Approximate), Expires: 09/26/2025 [facility] Comment on above: Expected: 09/26/2024 (Approximate), Expi res: 09/26/2025 Start: 09-26-2024 End: 09-26-2025 Comprehensive metabolic 2000 panel - Serum or Plasma Comprehensive metabolic panel Lab Routine Stage 3b chronic kidney disease ([facility]) Shortness of breath Expected: 09/26/2024 (Approximate), Expires: 09/26/2025 [facility] Comment on above: Expected: 09/26/2024 (Approximate), Expi res: 09/26/2025 Start: 09-26-2024 End: 09-26-2025 ECG 12 lead ECG 12 lead ECG Routine Primary hypertension Irregular heart beat Shortness of breath Expected: 09/26/2024 (Approximate), Expires: 09/26/2025 [facility] Work Phone: Comment on above: Expected: 09/26/2024 (Approximate), Expi res: 09/26/2025 Start: 09-26-2024 End: 09-26-2025 Lipid 1996 panel - Serum or Plasma Lipid panel Lab Routine Primary hypertension Pure hypercholesterolemia Shortness of breath Expected: 09/26/2024 (Approximate), Expires: 09/26/2025 [facility] Comment on above: Expected: 09/26/2024 (Approximate), Expi res: 09/26/2025 Start: 09-26-2024 End: 09-26-2024 Patient encounter procedure 09/26/2024 2:00 PM EDT Office Visit [facility] [address] [place] [phone] China Ortiz, FLOORING INSTALLER [address] [place] [address] Arrived [facility] Comment on above: Arrived Start: 06-16-2024 Medicare Annual Wellness (AWV) Medicare Annual Wellness (AWV) [facility] Start: 05-09-2024 End: 05-09-2024 Patient encounter procedure 05/09/2024 10:30 AM EST Office Visit [facility] [address] [place] [phone] China Ortiz NP [address] [place] [address] Arrived [facility] Comment on above: Arrived Start: 12-28-2023 End: 12-28-2023 Professional / ancillary services management 12/28/2023 9:00 AM EDT [facility] [address] [facility] [address] [place] [phone] [facility] [place] [facility] Start: 12-13-2023 End: 02-11-2025 MG Breast - bilateral Screening Bilateral screening mammogram Imaging Routine Encounter for screening mammogram for malignant neoplasm of breast Expected: 12/13/2023, Expires: 02/11/2025 [facility] Work Phone: Comment on above: Expected: 12/13/2023, Expires: Start: 11-13-2023 Influenza vaccination Influenza Vaccine (#1) [facility] Start: 08-02-2023 End: 08-02-2023 Patient encounter procedure 08/02/2023 9:00 AM EDT Office Visit [facility] [address] [place] [phone] Ede Ramos DO [address] [place] [address] [facility] Start: 05-06-2023 Medicare Annual Wellness (AWV) Medicare Annual Wellness (AWV) [facility] Patient Education Know your Meds [facility] Work Phone: Patient referral [facility] Work Phone: Immunizations Immunization Date Immunization Notes Care Provider Teresa lino 01-19-2024 RSV, recombinant, protein subunit RSVpreF, adjuvant reconstitu, 120mcg/0.5mL, PF (Arexvy) China Ortiz FLOORING INSTALLER Work Phone: [facility] 01-05-2024 influenza, high dose seasonal, preservative-free China Ortiz FLOORING INSTALLER Work Phone: [facility] 01-05-2024 influenza virus vaccine, unspecified formulation China Ortiz FLOORING INSTALLER Work Phone: [facility] 12-23-2022 Influenza, High-dose Seasonal, Quadrivalent, Preservative Free Tamara Hackenburg FLOORING INSTALLER Work Phone: [facility] 12-23-2022 SARS-COV-2 (COVID-19 ) vaccine, mRNA, spike protein, LNP, PF, 50 mcg/0.5 mL Tamara Hackenburg FLOORING INSTALLER Work Phone: [facility] 12-23-2022 influenza virus vaccine, unspecified formulation Shari Mckeon MD Work Phone: [facility] 12-01-2021 Influenza, Seasonal, Quadrivalent, Adjuvanted Tamara Hackenburg FLOORING INSTALLER Work Phone: [facility] 12-01-2021 Seasonal, trivalent, recombinant, injectable influenza vaccine, preservative free Tamara Hackenburg FLOORING INSTALLER Work Phone: [facility] 12-16-2020 Influenza, High-dose Seasonal, Quadrivalent, Preservative Free Tamara Hackenburg FLOORING INSTALLER Work Phone: [facility] 05-14-2020 COVID-19 mRNA-1273 (Moderna) Shari Mckeon MD Work Phone: [facility] 04-16-2020 COVID-19 mRNA-1273 (Moderna) Shari Mckeon MD Work Phone: [facility] 02-14-2020 zoster vaccine recombinant Tamara Hackenburg FLOORING INSTALLER Work Phone: [facility] 12-07-2019 influenza, seasonal, injectable Tamara Hackenburg FLOORING INSTALLER Work Phone: [facility] 11-13-2019 influenza, injectabl e, quadrivalent, preservative free Tamara Hackenburg FLOORING INSTALLER Work Phone: [facility] 11-13-2019 zoster vaccine recombinant Tamara Hackenburg FLOORING INSTALLER Work Phone: [facility] 11-12-2019 zoster vaccine recombinant Tamara Hackenburg FLOORING INSTALLER Work Phone: [facility] 11-29-2018 Seasonal trivalent influenza vaccine, adjuvanted, preservative free Tamara Hackenburg FLOORING INSTALLER Work Phone: [facility] 11-30-2017 influenza, high dose seasonal, preservative-free Tamara Hackenburg FLOORING INSTALLER Work Phone: [facility] 11-24-2017 Seasonal trivalent influenza vaccine, adjuvanted, preservative free Tamara Hackenburg FLOORING INSTALLER Work Phone: [facility] 11-18-2016 influenza, high dose seasonal, preservative-free Tamara Hackenburg FLOORING INSTALLER Work Phone: [facility] Work Phone: 11-18-2016 pneumococcal conjuga te vaccine, 13 valent Tamara Hackenburg FLOORING INSTALLER Work Phone: [facility] 11-18-2016 Seasonal trivalent influenza vaccine, adjuvanted, preservative free Tamara Hackenburg FLOORING INSTALLER Work Phone: [facility] 11-18-2016 tetanus toxoid, redu greg diphtheria toxoid, and acellular pertussis vaccine, adsorbed Tamara Hackenburg FLOORING INSTALLER Work Phone: [facility] 11-12-2016 pneumococcal polysaccharide vaccine, 23 valent Tamara Hackenburg FLOORING INSTALLER Work Phone: [facility] 12-11-2015 influenza, high dose seasonal, preservative-free Tamara Hackenburg FLOORING INSTALLER Work Phone: [facility] 12-30-2014 influenza virus vaccine, whole virus Tamara Hackenburg FLOORING INSTALLER Work Phone: [facility] 12-30-2014 influenza, injectabl e, quadrivalent, preservative free Tamara Hackenburg FLOORING INSTALLER Work Phone: [facility] 05-10-2014 pneumococcal conjuga te vaccine, 13 valent Tamara Hackenburg FLOORING INSTALLER Work Phone: [facility] 12-13-2013 influenza virus vaccine, whole virus Tamara Hackenburg FLOORING INSTALLER Work Phone: [facility] 01-12-2013 pneumococcal Conjuga te, unspecified formulation Tamara Hackenburg FLOORING INSTALLER Work Phone: [facility] 01-12-2013 seasonal influenza, intradermal, preservative free Tamara Hackenburg FLOORING INSTALLER Work Phone: [facility] 12-27-2012 pneumococcal polysaccharide vaccine, 23 valent Tamara Hackenburg FLOORING INSTALLER Work Phone: [facility] Payers Date Payer Category Payer Medicare [id number] 2024 Self-pay 2023 Unknown 2017 Medicare ANTHEM MEDICARE ADVANTAGE ANTHEM MEDICARE ADVANTAGE [id number] 2017-Present [address] [place] [address] [id number] 2017 Medicare (Managed Care) [facility] [id number] 1959 Unknown [id number] 1944 Unknown [id number] 2.16840.1.150619.3.579. 2.647 1944 Unknown [id number] 2.16840.1.860403.3.579. 2.593 1944 Unknown [id number] 2.16840.1.918699.3.579. 2.593 1944 Unknown [id number] 2.16840.1.355417.3.579. 2.593 1944 Unknown [id number] 2.16840.1.567625.3.579. 2.593 1944 Unknown [id number] 2.16840.1.682870.3.579. 2.593 1944 Unknown [id number] 2.16840.1.707839.3.579. 2.718 1944 Unknown [id number] 2.16840.1.689334.3.579. 2.718 1944 Unknown [id number] 2.16840.1.777268.3.579. 2.196 1944 Unknown [id number] 2.16840.1.660333.3.579. 2.196 1944 Unknown [id number] 2.16840.1.720339.3.579. 2.196 1944 Unknown [id number] 2.16840.1.478132.3.579. 2.196 1944 Unknown [id number] 2.16840.1.141572.3.579. 2.196 1944 Unknown [id number] 2.16.840.1.424720.3.579. 2.196 1944 Unknown [id number] 2.16.840.1.371242.3.579. 2.196 1944 Unknown [id number] 2.16.840.1.338347.3.579. 2.196 1944 Unknown [id number] 2.16.840.1.200827.3.579. 2.196 1944 Unknown [id number] 2.16.840.1.577632.3.579. 2.196 1944 Unknown [id number] 2.16840.1.790994.3.579. 2.1286 1944 Unknown [id number] 2.0.1.597284.3.579. 2.1286 1944 Unknown [id number] 2.840.1.344571.3.579. 2.1259 1944 Unknown [id number] 2.0.1.168730.3.579. 2.1259 1944 Unknown [id number] 2.16840.1.498102.3.579. 2.1259 1944 Unknown [id number] 2.0.1.032680.3.579. 2.1259 1944 Unknown [id number] 2.840.1.221622.3.579. 2.1259 1944 Unknown [id number] 2.840.1.061508.3.579. 2.1259 Unknown [id number] 2.16840.1.931148.3.579. 2.531 Social History Date Type Detail Facility Start: 09-17-2022 End: 10-06-2024 Tobacco smoking status SDIS Never smoked tobacco [facility] Start: 07-07-2023 Tobacco use and exposure Smokeless tobacco non-user [facility] Start: 04-18-2023 End: 11-02-2024 Alcohol intake Current drinker of alcohol (finding) [facility] Start: 04-18-2023 End: 06-17-2023 Alcohol intake [facility] Start: 04-18-2023 End: 06-17-2023 Tobacco use panel [facility] Start: 01-06-2023 Alcohol Comment Caffeine [...] occasion? Never [facility] Sex Female (finding) [facility] Start: 1945 Sex Assigned At Female F [facility] Goals Date Patient Goal Desired Activity /State Functional Status Date Assessment Result Facility 10-07-2024 Functional status Patient at Baseline [facility] Work Phone: Mental Status Date Assessment Result Facility 10-07-2024 Cognitive function Cognitive Sta tus Patient at Baseline [facility] Work Phone: Clinical Notes 02-01-2020 to 11-15-2024 Shahriar Warren, DO - 11/02/2024 9:30 AM EDTPjanett Warren, DO - 10/10/2024 11:15 AM EDT Note Date & Type Note Facility 11-15-2024 Note New patient here to establish care. Self ref for MALDONADO with stairs and murmur per daughter. [facility], and EKG in September 2024. Had recent cholecystectomy. Had lipid panel in September and PCP started her on statin. She declined to start. [facility] 11-15-2024 Note Cardiovascular Medic ine [facility] SUBJECTIVE Chief Complaint Patient presents with New Patient Heart Murmur HPI Radha Barraza is a 79 y.o. female here as a new patient. Her daughter Everton is also present. PMHx: COPD, HTN, HLD, asthma, AR, MR, TR, CKD stage 3b She states she has MALDONADO for some time. Her daughter notes she has been mentioning it more frequently recently. Patient states that she has hx of [...] exertion. Negative for chest pain, irregular heartbeat, leg swelling, near-syncope, orthopnea, palpitations, paroxysmal nocturnal dyspnea and syncope. Hematologic/Lymphatic: Negative for bleeding problem. Does not bruise/bleed easily. Neurological: Positive for dizziness. OBJECTIVE Visit Vitals BP 140/72 (BP Location: Right arm, Patient Position: Sitting) Pulse 63 Ht 1.486 m (4' 10.5 ) Wt 46.7 kg (103 lb) SpO2 97% BMI 21.16 kg/m??? Smoking Status Never BSA 1.39 m??? Medications: Current Medications[7] Physical Exam Vitals reviewed. [...] of 8 mmHg. There is moderate pulmonary (more content not included)... [facility] 11-02-2024 History of Present illness Narrative Images from the original note were not included. Radha Barraza 1945 Radha Barraza is a 79 y.o. female presents for 4th pow lap barron HPI: HPI Patient says she is doing great. Thank you for coming in on Tuesday and saving my life. She has not having any nausea or vomiting. She is eating without any difficulty. Having regular bowel movements. No incision problems. She has been very active already doing a lot of activity. Her only complaint is that her vodka taste different since the anesthesia. OBJECTIVE: Physical Exam Constitutional: Appearance: Normal appearance. She is not ill-appearing. Cardiovascular: Rate and Rhythm: Regular rhythm. Abdominal: General: There is no distension. Tenderness: There is no abdominal tenderness. Comments: Incisions are clean, dry and intact. No cellulitis or hernia ASSESSMENT AND PLAN: Assessment/Plan Diagnoses and all orders for this visit: Acute cholecystitis Status post laparoscopic cholecystectomy for gangrenous cholecystitis. Well healing. She has no further activity restrictions. I can see her again on an as-needed basis otherwise she is discharged from my care. No follow-ups on file. documented in this encounter [facility] 10-10-2024 History of Present illness Narrative Images from the original note were not included. Radha Barraza 1945 Radha Barraza is a 79 y.o. female presents for [...] PCL 10/09/2024 15:18 Attached To: GENERAL PATHOLOGY [[id number]] Orders Only on 10/09/24 with Shahriar Warren DO Source Information Paulina Gold [facility] Document History ASSESSMENT AND PLAN: Assessment/Plan Diagnoses and all orders for this visit: Acute cholecystitis Status post laparoscopic cholecystectomy secondary to acute gangrenous cholecystitis. I removed the SAUD drain. We discussed continued activity restrictions, incision care, drain site care, pathology report. I discussed with her and her [id number]. Not unexpected to have some soreness near the umbilical incision that was the extraction site from the gallbladder. I will see her again in 3 weeks No follow-ups on file. documented in this encounter [facility] 10-07-2024 Progress note Note Date/Time October 07, 2024 11:33am [facility] [address] [place] [address] General Surgery Progress Note Signed Patient: Radha Barraza MR#: [id number] 803 : 1945 Acct:[id number] Age/Sex: 79 / F Adm Date: 5 Loc: 4N Room: [address] [place] [address] Type: ADM IN Attending Dr: Chema Gupta [...] Mg/200 Unit Tablet) 1 tab PO BID.WITH.MEALS MARCIA Stop: 10/06/25 16:59 Last Admin: 10/07/24 09:15 Dose: 1 tab Famotidine (Famotidine/Pf 20 Mg/2 Ml Vial) 20 mg IV-PUSH Q12HR MARCIA Stop: 10/06/25 08:59 Last Admin: 10/07/24 09:15 Dose: 20 mg Hydralazine HCl (Hydralazine 20 Mg/Ml Vial) 10 mg IV-PUSH Q4H PRN PRN Reason: if SBP > 185 Stop: 10/06/25 04:36 Hydrochlorothiazide (Hydrochlorothiazide 12.5 Mg Tablet) 12.5 mg PO DAILY [facility] Stop: 10/07/25 08:59 Last Admin: 10/07/24 09:15 Dose: 12.5 mg Hydromorphone HCl (Hydromorphone 1 Mg/Ml Syringe) 0.5 mg IV-PUSH Q3H PRN PRN Reason: Pain Lactated Ringer's (Lactated Ringers) 1,000 mls @ 75 mls/hr IV .[id number] [facility] Stop: 10/06/25 04:44 Last Admin: 10/07/24 05:37 Dose: 75 mls/hr Ertapenem 0.5 gm/ Sodium (Chloride) 100 mls @ 200 mls/hr IV Q24H [facility] Stop: 10/07/25 01:59 Last Admin: 10/07/24 03:07 Dose: 200 mls/hr Lidocaine HCl (Lidocaine 1% 50 Ml Vial) 0.1 ml INTRADERMA PREOP PRN PRN Reason: Venipuncture x 1 Dose Losartan Potassium (Losartan 50 Mg Tablet) 100 mg PO DAILY [facility] Stop: 10/07/25 08:59 Last Admin: 10/07/24 09:15 [...] 10 Ml Vial.Pf) 10 ml INJECTION Q12HR [facility] Stop: 10/06/25 08:59 Last Admin: 10/07/24 09:15 Dose: 10 ml Sodium Chloride (Sodium Chloride 0.9 % 10 Ml Syringe) 0 ml IV-PUSH PRN PRN PRN Reason: Flush Stop: 10/06/25 08:17 Last Admin: 10/07/24 09:15 Dose: 10 ml Trazodone HCl (Trazodone 50 Mg Tablet) 50 mg PO QPM [facility] Stop: 10/07/25 20:59 Exam Physical Exam Vital [...] % (Auto) 84.8, Lymph % (Auto) 9.4, Andrews % (Auto) 4.2, Eos % (Auto) 1.3, Baso % (Auto) 0.3, Nucleat RBC Rel Count 0.0, Neut # (Auto) 7.2, Lymph # (Auto) 0.8 L, Andrews # (Auto) 0.4, Eos # (Auto) 0.1, [...] % (Auto) 89.1, Lymph % (Auto) 6.6, Andrews % (Auto) 3.9, Eos % (Auto) 0.2, Baso % (Auto) 0.2, Nucleat RBC Rel Count 0.0, Neut # (Auto) 9.9 H, Lymph # (Auto) 0.7 L, Andrews # (Auto) 0.4, Eos # (Auto) 0.0, [...] care.. Documented By: Shahriar Warren DO 10/07/24 1131 Signed By: <Electronically signed by DO Shahriar Warren> 10/07/24 1133 [facility] Work Phone: 1(643) 715-139407-27-2025 [place] [id number] General Surgery Progress Note Signed Patient: Radha Barraza MR#: [id number] 803 : 1945 Acct:[id number] Age/Sex: 79 / F Adm Date: 5 Loc: 4N Room: [address] [place] [address] Type: ADM IN Attending Dr: Chema Gupta [...] Mg/200 Unit Tablet) 1 tab PO BID.WITH.MEALS [facility] Stop: 10/06/25 16:59 Last Admin: 10/07/24 09:15 Dose: 1 tab Famotidine (Famotidine/Pf 20 Mg/2 Ml Vial) 20 mg IV-PUSH Q12HR MARCIA Stop: 10/06/25 08:59 Last Admin: 10/07/24 09:15 Dose: 20 mg Hydralazine HCl (Hydralazine 20 Mg/Ml Vial) 10 mg IV-PUSH Q4H PRN PRN Reason: if SBP > 185 Stop: 10/06/25 04:36 Hydrochlorothiazide (Hydrochlorothiazide 12.5 Mg Tablet) 12.5 mg PO DAILY [facility] Stop: 10/07/25 08:59 Last Admin: 10/07/24 09:15 Dose: 12.5 mg Hydromorphone HCl (Hydromorphone 1 Mg/Ml Syringe) 0.5 mg IV-PUSH Q3H PRN PRN Reason: Pain Lactated Ringer's (Lactated Ringers) 1,000 mls @ 75 mls/hr IV .[id number] [facility] Stop: 10/06/25 04:44 Last Admin: 10/07/24 05:37 Dose: 75 mls/hr Ertapenem 0.5 gm/ Sodium (Chloride) 100 mls @ 200 mls/hr IV Q24H [facility] Stop: 10/07/25 01:59 Last Admin: 10/07/24 03:07 Dose: 200 mls/hr Lidocaine HCl (Lidocaine 1% 50 Ml Vial) 0.1 ml INTRADERMA PREOP PRN PRN Reason: Venipuncture x 1 Dose Losartan Potassium (Losartan 50 Mg Tablet) 100 mg PO DAILY [facility] Stop: 10/07/25 08:59 Last Admin: 10/07/24 09:15 [...] 10 Ml Vial.Pf) 10 ml INJECTION Q12HR [facility] Stop: 10/06/25 08:59 Last Admin: 10/07/24 09:15 Dose: 10 ml Sodium Chloride (Sodium Chloride 0.9 % 10 Ml Syringe) 0 ml IV-PUSH PRN PRN PRN Reason: Flush Stop: 10/06/25 08:17 Last Admin: 10/07/24 09:15 Dose: 10 ml Trazodone HCl (Trazodone 50 Mg Tablet) 50 mg PO QPM [facility] Stop: 10/07/25 20:59 Exam Physical Exam Vital [...] 24 hour I&O: Intake & Output 10/06/24 10/07/2410/07/25 23:59 07:59 15:59 Intake Total 2440 / [...] % (Auto) 84.8, Lymph % (Auto) 9.4, Andrews % (Auto) 4.2, Eos % (Auto) 1.3, Baso % (Auto) 0.3, Nucleat RBC Rel Count 0.0, Neut # (Auto) 7.2, Lymph # (Auto) 0.8 L, Andrews # (Auto) 0.4, Eos # (Auto) 0.1, [...] % (Auto) 89.1, Lymph % (Auto) 6.6, Andrews % (Auto) 3.9, Eos % (Auto) 0.2, Baso % (Auto) 0.2, Nucleat RBC Rel Count 0.0, Neut # (Auto) 9.9 H, Lymph # (Auto) 0.7 L, Andrews # (Auto) 0.4, Eos # (Auto) 0.0, [...] care.. Documented By: Shahriar Warren DO 10/07/24 1131 Signed By: 10/07/24 1133 [facility]07-26-2025 Progress note Author Chema Gupta [facility] Note Date/Time October 06, 2024 3:14 pm [facility] [address] [place], [place] [id number] Hospitalist Progress Note Signed Patient: Radha Barraza MR#: [id number] 803 : 1945 Acct:[id number] Age/Sex: 79 / F Adm Date: 5 Loc: 4N Room: 4E3349-3 Type: ADM IN Attending Dr: Chema Gupta DO Copies to: ~ Date of Service: 10/06/2024 Subjective Subjective Narrative: Patient is an 79-year-old female with medical history as listed below who presented to [facility] due to abdominal pain. Patient was seen earlier yesterday morning for back pain and was treated with [place] and reports that helped with her pain however she kept having abdominal pain for which she returnto ER later yesterday and was evaluated. Reported right upper quadrant pain, worsening with inspiration, denies any nausea or vomiting or diarrhea. Denies fevers or chills at home. 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 One of them is a retired ER physician from [facility], and one of them is another physician from [facility] [employer] [facility]. The patient has just finished working with [...] Dose Route Start Last Admin Trade Name Gonzaloq PRN Reason Stop Dose Admin Acetaminophen 650 [...] Lactated Ringers IV 10/06/25 04:44 75 mls/hr .[id number] MARCIA Administration Ertapenem 0.5 gm/ Sodium 100 [...] Vial.Pf INJECTION 10/06/25 08:59 Not Given Q12HR MARCIA Sodium Chloride 0 ml 10/06/24 08:18 Sodium Chloride 0.9 % 10 Ml Syringe IV-PUSH 10/06/25 08:17 PRN PRN Flush Trazodone HCl 50 mg 10/07/24 21:00 Trazodone 50 Mg Tablet PO 10/07/25 20:59 QPM [facility] A&P - Hospitalist Assessment/Plan (1) Heart murmur: [...] <Electronically signed by Chema Gupta DO> 10/06/24 151 [facility] Work Phone: 1(477) 247-503407-26-2025 [place] [address] Hospitalist Progress Note Signed Patient: Radha Barraza MR#: [id number] 803 : 1945 Acct:[id number] Age/Sex: 79 / F Adm Date: 5 Loc: 4N Room: 5X6232-0 Type: ADM IN Attending Dr: Chema Gupta DO Copies to: ~ Date of Service: 10/06/2024 Subjective Subjective Narrative: Patient is an 79-year-old female with medical history as listed below who presented to [facility] due to abdominal pain. Patient was seen earlier yesterday morning for back pain and was treated with [place] and reports that helped with her pain however she kept having abdominal pain for which she returnto ER later yesterday and was evaluated. Reported right upper quadrant pain, worsening with inspiration, denies any nausea or vomiting or diarrhea. Denies fevers or chills at home. 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 One of them is a retired ER physician from [facility], and one of them is another physician from [facility] [employer] [facility]. The patient has just finished working with physical therapy and Occupational Therapy. She is just finished eating a light lunch. She is wide-awake. She isjovial. She let her family members help us get her lying in bed after her meal and boost her up in bed. She says that she wants to be discharged from thehospital immediately. Her family members reminded her that [...] Lactated Ringers IV 10/06/25 04:44 75 mls/hr .[id number] MARCIA Administration Ertapenem 0.5 gm/ Sodium 100 [...] 50 Mg Tablet PO 10/07/25 08:59 DAILY [facility] Ondansetron HCl 4 mg 10/06/24 11:24 Ondansetron 4 Mg/2 Ml Vial IV-PUSH 10/06/25 11:23 Q6H PRN Nausea And Vomiting Prochlorperazine Edisylate 5 mg 10/06/24 04:34 Prochlorperazine Edisylate 10 Mg/2 Ml Vial IV-PUSH 10/06/25 04:33 Q4H PRN Nausea And Vomiting Sodium Chloride 10 ml 10/06/24 09:00 10/06/24 13:50 Sodium Chloride 0.9 % 10 Ml Vial.Pf INJECTION 10/06/25 08:59 Not Given Q12HR [facility] Sodium Chloride 0 ml 10/06/24 08:18 Sodium Chloride 0.9 % 10 Ml Syringe IV-PUSH 10/06/25 08:17 PRN PRN Flush Trazodone HCl 50 mg 10/07/24 21:00 Trazodone 50 Mg Tablet PO 10/07/25 20:59 QPM [facility] A&P - Hospitalist Assessment/Plan (1) Heart murmur: [...] By: Chema Gupta DO 1509 Signed By: 10/06/24 1514 [facility]07-26-2025 Consult note Author Shahriar Warren [facility] Note Date/Time October 06, 2024 8:11 am [facility] [address] [place] [address] General Surgery Consult Note Signed Patient: Radha Barraza MR#: [id number] 803 : 1945 Acct:[id number] Age/Sex: 79 / F Adm Date: 5 Loc: Room: [address] [place] [address] Type: ADM IN Attending Dr: Chema Gupta DO Copies to: MD Chema Dumont DO Paul C Laffay, DO~ History of Present Illness Date of consult: 10/06/2024 Requesting/Attending Provider: Chema Gupta DO History of present illness: Patient went to [facility] emergency department on night with severe backpain. [...] negative unless noted below or in HPI [facility] Medical History Heart murmur Osteoarthritis Surgical History [...] Mg/2 Ml Vial) 20 mg IV-PUSH Q12HR [facility] Stop: 10/06/25 08:59 Hydralazine HCl (Hydralazine 20 Mg/Ml Vial) 10 mg IV-PUSH Q4H PRN PRN Reason: if SBP > 185 Stop: 10/06/25 04:36 Lactated Ringer's (Lactated Ringers) 1,000 mls @ 75 mls/hr IV .[id number] [facility] Stop: 10/06/25 04:44 Last Admin: 10/06/24 05:03 Dose: 75 mls/hr Ertapenem 0.5 gm/ Sodium (Chloride) 100 mls @ 200 mls/hr IV Q24H [facility] Stop: 10/07/25 01:59 Morphine Sulfate (Morphine Sulfate [...] 10 Ml Vial.Pf) 10 ml INJECTION Q12HR [facility] Stop: 10/06/25 08:59 Exam Physical Exam Vital [...] Total 0 / 0 Output Total Balance - Weight 49 kg Labs 10/06/24 05:56 10/06/24 [...] % (Auto) 89.1, Lymph % (Auto) 6.6, Andrews % (Auto) 3.9, Eos % (Auto) 0.2, Baso % (Auto) 0.2, Nucleat RBC Rel Count 0.0, Neut # (Auto) 9.9 H, Lymph # (Auto) 0.7 L, Andrews # (Auto) 0.4, Eos # (Auto) 0.0, [...] signed by DO Shahriar Warren> 10/06/24 0811 [facility] Work Phone: 1(382) 162-988007-26-2025 [place] [address] General Surgery Consult Note Signed Patient: Radha Barraza MR#: [id number] 803 : 1945 Acct:[id number] Age/Sex: 79 / F Adm Date: 5 Loc: Room: [address] [place] [address] Type: ADM IN Attending Dr: Chema Gupta DO Copies to: MD Chema Dumont DO Paul C Laffay, DO~ History of Present Illness Date of consult: 10/06/2024 Requesting/Attending Provider: Chema Gupta DO History of present illness: Patient went to [place] emergency department on night with severe backpain. [...] negative unless noted below or in HPI [facility] Medical History Heart murmur Osteoarthritis Surgical History [...] Mg/2 Ml Vial) 20 mg IV-PUSH Q12HR [facility] Stop: 10/06/25 08:59 Hydralazine HCl (Hydralazine 20 Mg/Ml Vial) 10 mg IV-PUSH Q4H PRN PRN Reason: if SBP > 185 Stop: 10/06/25 04:36 Lactated Ringer's (Lactated Ringers) 1,000 mls @ 75 mls/hr IV .[id number] [facility] Stop: 10/06/25 04:44 Last Admin: 10/06/24 05:03 Dose: 75 mls/hr Ertapenem 0.5 gm/ Sodium (Chloride) 100 mls @ 200 mls/hr IV Q24H [facility] Stop: 10/07/25 01:59 Morphine Sulfate (Morphine Sulfate [...] 10 Ml Vial.Pf) 10 ml INJECTION Q12HR [facility] Stop: 10/06/25 08:59 Exam Physical Exam Vital [...] % (Auto) 89.1, Lymph % (Auto) 6.6, Andrews % (Auto) 3.9, Eos % (Auto) 0.2, Baso % (Auto) 0.2, Nucleat RBC Rel Count 0.0, Neut # (Auto) 9.9 H, Lymph # (Auto) 0.7 L, Andrews # (Auto) 0.4, Eos # (Auto) 0.0, [...] DO 10/06/24 0803 Signed By: 10/06/24 0811 [facility]07-26-2025 History and physical note Author Kimberly Sanchez [facility] Note Date/Time October 06, 2024 5:53 am [facility] [address] [place] [address] Hospitalist H&P Signed Patient: Radha Barraza MR#: [id number] 803 : 1945 Acct:[id number] Age/Sex: 79 / F Adm Date: 5 Loc: Room: [address] [place] [address] Type: ADM IN Attending Dr: Kimberly Sanchez MD Copies to: MD Kimberly Dumont MD~ HPI DATE OF EXAMINATION: 10/06/24 CHIEF COMPLAINT: Abd pain HISTORY OF PRESENT ILLNESS: Patient is an 79-year-old female with medical history as listed below who presented to [facility] due to abdominal pain. Patient was seen earlier yesterday morning for back pain and was treated with [place] and reports that helped with her pain however she kept having abdominal pain for which she returnto ER later yesterday and was evaluated. Reported right upper quadrant pain, worsening with inspiration, denies any nausea or vomiting or diarrhea. Denies fevers or chills at home. CT scan at [facility] showed distended gallbladder with mild gallbladder [...] negative unless noted below or in HPI [facility] Medical History Heart murmur Osteoarthritis Surgical History [...] here 100.3F, had leukocytosis around 12 at [facility] [place] -CT AP done and reviewed, showed distended [...] <Electronically signed by Kimberly Sanchez MD> 10/06/24 0553 [facility] Work Phone: 1(378) 209-779207-26-2025 Evaluation note* Diagnosis Onset Date Resolution Status Admit Date Acute cholecystitis acute October 06, 2024 4:05am Acute gangrenous cholecystitis acute October 06, 2024 4:05am Heart murmur acute October 06, 2 025 4:05am Intractable right upper quad rant abdominal pain acute October 06, 2024 4:05am Leukocytosis acute October 06, 2 025 4:05am [facility] Work Phone: 1(905) 850-364507-26-2025 [place] [address] Hospitalist H&P Signed Patient: Radha Barraza MR#: [id number] 803 : 1945 Acct:[id number] Age/Sex: 79 / F Adm Date: 5 Loc: Room: [address] [place] [address] Type: ADM IN Attending Dr: Kimberly Sanchez MD Copies to: MD Kimberly Dumont MD~ HPI DATE OF EXAMINATION: 10/06/24 CHIEF COMPLAINT: Abd pain HISTORY OF PRESENT ILLNESS: Patient is an 79-year-old female with medical history as listed below who presented to [facility] due to abdominal pain. Patient was seen earlier yesterday morning for back pain and was treated with [place] and reports that helped with her pain however she kept having abdominal pain for which she returnto ER later yesterday and was evaluated. Reported right upper quadrant pain, worsening with inspiration, denies any nausea or vomiting or diarrhea. Denies fevers or chills at home. CT scan at [facility] showed distended gallbladder with mild gallbladder [...] negative unless noted below or in HPI [facility] Medical History Heart murmur Osteoarthritis Surgical History [...] here 100.3F, had leukocytosis around 12 at [place] -CT AP done and reviewed, showed distended [...] 10/06/24 04 38 Signed By: 10/06/24 0553 [facility]07-21-2025 Telephone encounter Note* Telephone Encounter - Shari Olmos MA - 10/01/2024 12:45 PM EDT [facility] faxing over the EKG. [facility]ovxttbdpo97-96-2133 Telephone encounter Note* Telephone Encounter - Shari [...] symptoms as well ----- Message ----- From: [facility] Lab Results In Sent: 09/27/2024 9:07 AM EDT To: China Ortiz NP [facility] CenterQmvemwthmg01-70-6082 Miscellaneous Notes* Telephone Encounter - Shari Olmos [...] symptoms as well ----- Message ----- From: [facility] Lab Results In Sent: 09/27/2024 9:07 AM EDT To: China Ortiz NP * Telephone Encounter - Shari Olmos MA - 10/01/2024 12:39 PM EDT ----- Message from China Hopsoncourtneymariama sent at 09/28/2024 10:08 AM EDT ----- Labs stable, did she complete her EKG? We should also repeat her echo as she had mild to moderate stenosis of her aortic valve and we want to make sure this is not worsening as it can be a cause of her symptoms as well ----- Message ----- From: [facility] Lab Results In Sent: 09/27/2024 9:07 AM [...] 12:37 PM EDT ----- Message from China Chloemariama sent at 09/28/2024 10:08 AM EDT ----- Labs stable, did she complete her EKG? We should also repeat her echo as she had mild to moderate stenosis of her aortic valve and we want to make sure this is not worsening as it can be a cause of her symptoms as well ----- Message ----- From: [facility] Lab Results In Sent: 09/27/2024 9:07 AM EDT To: China Ortiz NP documented in this encounterCass Medical CenterSilchkftsm17-11-7695 Telephone encounter Note* Telephone Encounter - Shari [...] as well ----- Message ----- From: [facility] Lab Results In Sent: 09/27/2024 9:07 AM EDT To: China Ortiz NP [facility] CenterFawjtumaip73-08-7238 Telephone encounter Note* Telephone Encounter - Shari Olmos MA - 10/01/2024 12:37 PM EDT She did get the EKG done the next morning. ( Ill call them to get report)And she is agreeable to the echo if you place the order thank you! [facility] CenterBavxrbsagd72-37-1664 Telephone encounter Note* Telephone Encounter - Shari [...] as well ----- Message ----- From: [facility] Lab Results In Sent: 09/27/2024 9:07 AM EDT To: China Ortiz NP [facility] CenterGalpxrtmnz52-77-8753 History of Present illness Narrative* China Ortiz NP - 09/26/2024 2:00 PM EDTAssociated Problem(s): Stage 3b chronic kidney disease ([facility]) Orders: Comprehensive metabolic panel; Future -check [...] is not under the care of a jewelry sales representative and does notrecall undergoing an echocardiogram last [...] of meds. Stage 3b chronic kidney disease ([facility]) Orders: Comprehensive metabolic panel; Future -check [...] bronchitis. Refuses wellness today documented in this encounterCass Medical CenterXgafttvwez94-64-1931 History of Present illness Narrative* China Ortiz [...] PRN atorvastatin (LIPITOR) 20 mg, Oral, Daily mgbnedzvuo-ulgjkkklpbzis-kkrlhlka 50-325-40 MG tablet 1 tablet, Every 4 [...] nebulizer treatments as prescribed. documented in this [facility]02-10-2025 Telephone encounter Note* Telephone Encounter - Yasmin Suresh - 04/23/2024 3:36 PM EST Pt needs a confirmation of 3 mos supply sent to [facility] Fluticasone-salmeterol 250-50 mcg/act aerosol powder [facility] CenterLkfluhcctm56-80-0334 Miscellaneous Notes* Telephone Encounter - Yasmin Suresh - 04/23/2024 3:36 PM EST Pt needs a confirmation of 3 mos supply sent to [facility] Fluticasone-salmeterol 250-50 mcg/act aerosol powder documented in this [facility]11-12-2024 History of Present illness Narrative* Roger Vasquez [...] once daily, Disp: 90 tablet, Rfl: 0 jyuxlnpxwv-tkbiqnskiqdtm-syitupkg 50-325-40 MG tablet, Take 1 tablet by [...] understanding. Roger Vasquez DPM documented in this [facility]11-12-2024 Instructions* Patient Instructions* Roger Vasquez DPM - 01/24/2024 1:00 PM EST As noted documented in this [facility]10-10-2024 Telephone encounter Note* Telephone Encounter - Naila Orellana MD - 12/22/2023 12:30 PM EDT Approvals with refills [facility] CenterEwnqvembfk61-39-5935 Miscellaneous Notes* Telephone Encounter - Naila Orellana MD - 12/22/2023 12:30 PM EDT Approvals with refills documented in this [facility]10-01-2024 Telephone encounter Note* Telephone Encounter - Olga Lidia Saucedo - 12/13/2023 10:35 AM EDT Patient called and would like an order for a mammogram sent over. Last one on 12/20/2022. Thank you [facility] CenterApyzfqcscl31-62-5659 Miscellaneous Notes* Telephone Encounter - Olga Lidia Saucedo - 12/13/2023 10:35 AM EDT Patient called and would like an order for a mammogram sent over. Last one on 12/20/2022. Thank you documented in this [facility]09-05-2024 Telephone encounter Note* Telephone Encounter - Shari Mckeon MD - 11/17/2023 4:48 PM EDT Refills sent. [facility] CenterTjjymshrsa82-00-7821 Miscellaneous Notes* Telephone Encounter - Shari Mckeon MD - 11/17/2023 4:48 PM EDT Refills sent. documented in this [facility]02-14-2024 Telephone encounter Note* Telephone Encounter - Pati Valentino - 04/27/2023 1:09 PM EST Called pt and informed [facility] CenterBnagdfnpcc24-97-6874 Miscellaneous Notes* Telephone Encounter - Pati Valentino - 04/27/2023 1:09 PM EST Called pt and informed * Telephone Encounter - Pati Valentino - 04/27/2023 12:51 PM EST Pt called stated she had LT TSA 07/26/22 and is getting a cavity filled and needs antibiotic called into [facility] in [place]. Allergies: NKDA . Her call back [phone] documented in this encounterCass Medical CenterGumonwqwoj47-29-1683 Telephone encounter Note* Telephone Encounter - Pati Valentino - 04/27/2023 12:51 PM EST Pt called stated she had LT TSA 07/26/22 and is getting a cavity filled and needs antibiotic called into [facility] in [place]. Allergies: NKDA . Her call back [phone] [facility] Tqbvotbagm58-04-6448 Telephone encounter Note* Telephone Encounter - Shari Mckeon MD - 04/21/2023 7:05 PM EST Refills sent. [facility] Myivtbuwuu59-48-6040 Miscellaneous Notes* Telephone Encounter - Shari Mckeon MD - 04/21/2023 7:05 PM EST Refills sent. documented in this encounterCass Medical CenterJkllikeije13-32-3269 Note [id number]05[facility]-[address] [facility] SURGERY Clinical Discharge Summary PERSON INFORMATION Name RADHA BARRAZA Age 77 Years 1945 Sex FEMALE Language Chinese PCP SHARI MCKEON Marital Status Med Service Ambulatory Surgery Acct# Arrival 07/26/2022 05:52:10 Visit Reason SURGERY - LEFT REVERSE TOTAL SHOULDER - ARTHREX Acuity LOS 053 02:57 Address: [address] [place] [address] [place] [address] Comment: PROVIDER INFORMATION VITALS INFORMATION Vital Sign [...] DEPART REASON INCOMPLETE INFORMATION (more content not included)...[facility] HospitalQhwztmpe16-25-6028 NoteOPERATIVE NOTE OPERATION DATE: 02/01/2020 PREOPERATIVE DIAGNOSIS: [...] position. She was sedated by the nurse radiation control specialist. Bite block was placed in her mouth. [...] patient tolerated the procedure without any difficulties. [facility] SIGNED AND APPROVED BY: DR CARLOS EDUARDO MENENDEZ . 02/07/2020 09:15:00[facility] Diagnosis Essential hypertension (CMS/HCC) Unspecified essential [...] whether complicated (CMS/HCC) documented in this encounter [facility] HealthcareEvaluation note* Diagnosis Essential hypertension (CMS/HCC) Unspecified [...] of breath documented in this encounter [facility]* Diagnosis Primary hypertension- Primary Unspecified essential hypertension Stage 3b chronic kidney disease (CMS-HCC) Pure hypercholesterolemia Pure hypercholesterolemia Irregular heart beat Unspecified cardiac dysrhythmia Shortness of breath Chronic obstructive pulmonary disease, unspecified COPD type (HCC) Moderate aortic regurgitation PVC (premature ventricular contraction) Other premature beats Acute cholecystitis- Primary documented in this encounter [facility]* Diagnosis Primary hypertension- Primary Unspecified essential hypertension Stage 3b chronic kidney disease (CMS-HCC) Pure hypercholesterolemia Pure hypercholesterolemia Irregular heart beat Unspecified cardiac dysrhythmia Shortness of breath Chronic obstructive pulmonary disease, unspecified COPD type (HCC) Moderate aortic regurgitation PVC (premature ventricular contraction) Other premature beats Acute cholecystitis- Primary documented in this encounter [facility] Discharge instructions Additional Instructions DISCHARGE INSTRUCTIONS [...] appointment on Tuesday or for drain removal. [facility] Work Phone: Summary Purpose Family History No [...] section and content) DATE CREATED AUTHOR 05/27/2018 [facility] DATE CREATED AUTHOR AUTHOR'S ORGANIZ ATION 11/06/2020 [facility] DATE CREATED AUTHOR AUTHOR'S ORGANIZ ATION 05/12/2022 [facility] dical Specialist DATE CREATED AUTHOR AUTHOR'S ORGANIZ ATION 07/28/2022 [facility] DATE CREATED AUTHOR AUTHOR'S ORGANIZ ATION 03/05/2024 [facility] DATE CREATED AUTHOR AUTHOR'S ORGANIZ ATION 10/23/2024 [facility] DATE CREATED AUTHOR AUTHOR'S ORGANIZ ATION 11/02/2024 [facility] DATE CREATED AUTHOR AUTHOR'S ORGANIZ ATION 11/04/2024 [facility] dical Specialists EPIC DATE CREATED AUTHOR AUTHOR'S ORGANIZ ATION 11/17/[address] [facility] Reason for Visit (unrecogniz ed section [...] Reason Comments 1st po lap barron IP Reason Comments 4th pow lap barron Care Teams (unrecognized sec tion and content) Industrial Design Intern Relationship Specialty Start Date End Date Tamara Aparicio NP [address], [place] [address] PCP - Cristobal FIGUEROA 03/21/21 Shari Mckeon MD [address], [place] [address] PCP - General Family Medicine 07/26/22 Industrial Design Intern Relationship Specialty Start Date End Date Tamara Aparicio NP [address] [place] [address] PCP - Cristobal FIGUEROA 03/21/21 Shari Mckeon MD [address] [place] [address] PCP - General Family Medicine 07/26/22 Industrial Design Intern Relationship Specialty Start Date End Date Tamara Aparicio NP [address] [facility] [place] [address] PCP - Cristobal FIGUEROA 03/21/21 Shari Mckeon MD [address] [place] [facility] [place] [address] PCP - General Family Medicine 07/26/22 Industrial Design Intern Relationship Specialty Start Date End Date Tamara Aparicio NP [address] [place] [address] PCP - Cristobal FIGUEROA 03/21/21 Shari Mckeon MD [address] [place] [address] PCP - General Family Medicine 07/26/22 Industrial Design Intern Relationship Specialty Start Date End Date Tamara Aparicio NP [address] [place] [address] PCP - Cristobal FIGUEROA 03/21/21 Shari Mckeon MD [address] [place] [address] PCP - General Family Medicine 07/26/22 Industrial Design Intern Relationship Specialty Start Date End Date Tamara Aparicio NP [address] [place] [address] PCP - Cristobal FIGUEROA 03/21/21 Shari Mckeon MD [address] [place] [address] PCP - General Family Medicine 07/26/22 Industrial Design Intern Relationship Specialty Start Date End Date Tamara Aparicio NP [address] [facility] [place] [address] PCP - Cristobal FIGUEROA 03/21/21 Shari Mckeon MD [address] [place] [facility] [place] [address] PCP - General Family Medicine 07/26/22 Industrial Design Intern Relationship Specialty Start Date End Date Tamara Aparicio NP [address] [place] [address] PCP - Cristobal FIGUEROA 03/21/21 Shari Mckeon MD [address] [place] [address] PCP - General Family Medicine 07/26/22 Industrial Design Intern Relationship Specialty Start Date End Date Tamara Aparicio NP [address] [place] [address] PCP - Cristobal FIGUEROA 03/21/21 Shari Mckeon MD [address] [place] [address] PCP - General Family Medicine 07/26/22 Industrial Design Intern Relationship Specialty Start Date End Date Shari Mckeon MD [address] [place] [address] PCP - General Family Medicine 07/26/22 Industrial Design Intern Relationship Specialty Start Date End Date Shari Mckeon MD [address] [place] [address] PCP - General Family Medicine 07/26/22 Industrial Design Intern Relationship Specialty Start Date End Date Shari Mckeon MD [address] [place] [address] PCP - General Family Medicine 07/26/22 Industrial Design Intern Relationship Specialty Start Date End Date Shari Mckeon MD [address] [place] [address] PCP - General Family Medicine 07/26/22 Industrial Design Intern Relationship Specialty Start Date End Date Shari Mckeon MD [address] [place] [address] PCP - General Family Medicine 07/26/22 Industrial Design Intern Relationship Specialty Start Date End Date Shari Mckeon MD [address] [place] [address] PCP - General Family Medicine 07/26/22 Industrial Design Intern Relationship Specialty Start Date End Date Shari Mckeon MD [address] [place] [address] PCP - General Family Medicine 07/26/22 Team Status: Active Member Role Status Dates Shari Mckeon MD Primary Care Provide r Active Team Status: Inactive Member Role Status Dates Shari Mckeon MD Primary Care Provide r Active Start: October 06, 2024 End: October 07, 2024 Kimberly Sanchez MD Admit Provider Active Sta rt: October 06, 2024 End: October 07, 2024 Chema Gupta , Attending Provider Active Start: October 06, 2024 End: October 07, 2024 Shahriar Warren , Other Provider Active Start: 2024 End: October 07, 2024 Industrial Design Intern Relationship Specialty Start Date End Date Shari Mckeon MD [address] [place] [address] PCP - General Family [facility] 07/26/22 Industrial Design Intern Relationship Specialty Start Date End Date Shari Mckeon MD [address] [facility] [place] [address] PCP - General Family Medicine 07/26/22 FOR [...] BE BASED ON THE PRIMARY CLINICAL RECORDS. [facility] [employer] [facility] provides no warranty or guarantee of the accuracy or completeness of information in this document.
--- OUTSIDE RECORDS SUMMARY | 2024-11-23 08:45 | XMS_ITS | Encounter Summary ---
Author Organization [facility] Address [address] [place] [address] Care Team Providers Care Commercial Service Technician Name Role Phone Tamara Aparicio VAMP SEAMER Unavailable [phone] Shari Mckeon MD Primary Care Provider [phone] Anh King LPN Unavailable [phone] Encounter Details Date Type Department Care [...] AM EDT Narrative 12/14/2023 9:10 [place] [address] XRay Report Signed Patient: Radha Cuadra MR#: [id number] : 1945 Acct:[id number] Age/Sex: 78 / F ADM Date: 12/14/23 Loc: [facility] Attending Dr: Rinku Bennett NP Ordering Physician: Rinku Bennett NP Date of Service: 12/14/23 Procedure(s): XR thoracic spine 2V Accession Number(s): [id number] cc: Rinku Bennett NP; SHARI MCKEON [place] [id number] Patient Name: RADHA CUADRA MRN: [id number] date: 1945 Sex: F Assigned Patient Location: [facility] Current Patient Location: [facility] Accession/Order Number: [id number] Exam Date: 12/14/2023 08:16 Report Date: 12/14/2023 [...] M.D. Signed By: 12/14/23909 DD/ 7 TD/TT: Boatswain'S Mate: Procedure Note Radiology, Radiologist, - 12/14/2023 [place] [address] XRay Report Signed Patient: Radha Cuadra EMR#: [id number] : 5Acct:[id number] Age/Sex: 78 / FADM Date: 12/14/23 Loc: RAD Attending Dr: Rinku Bennett NP Ordering Physician: Rinku Bennett NP Date of Service: 12/14/23 Procedure(s): XR thoracic spine 2V Accession Number(s): [id number] cc: Rinku Bennett NP; SHARI MCKEON [address] [place] [id number] Patient Name: RADHA CUADRA MRN: [id number] date: 1945 Sex: F Assigned Patient Location: [facility] Current Patient Location: [facility] Accession/Order Number: [id number] Exam Date: 12/14/2023 08:16 Report Date: 12/14/2023 [...] Alanis M.D. Signed By:12/14/23909 DD/ 7 TD/TT: Boatswain'S Mate: us Generic External Data Provider IMG XR PROCEDURES Final Result documented in this encounter Visit Diagnoses Not on filedocumented in this encounter Additional Health Concerns Assessment Noted Time PHQ-9 Depression Total Score: 2 06/17/19 24 8:00 AM EDT documented as of this encounter Care Teams Commercial Service Technician Relationship Specialty Start Date End Date Tamara Aparicio NP [address] [facility] [address] [place] [address] PCP - Cristobal FIGUEROA 03/21/21 06/11/24 Shari Mckeon MD [address] [place] [address] PCP - General Family Medicine 07/26/22 Anh King LPN Licensed Practical Nurse Family Medicine 11/05/24 documented as of this encounter
--- OUTSIDE RECORDS SUMMARY | 2024-11-23 08:45 | XMS_ITS | Encounter Summary ---
Author Organization [facility] Address [address] [facility] [place] [address] Care Team Providers Care Adoption Specialist Name Role Phone Tamara Aparicio PROJECT ASSISTANT Unavailable [phone] Shari Kay MD Primary Care Provider [phone] Anh King LPN Unavailable [phone] Encounter Details Date Type Department Care Team (Late st Contact Info) Description 07/30/2022 Abstract [facility] [address] [place] [address] Ede Ramos DO [address] [place] [address] Social History Tobacco Use Types Packs/Day Years [...] on filedocumented in this encounter Care Teams Adoption Specialist Relationship Specialty Start Date End Date Tamara Aparicio NP [address] [place] [address] PCP - Cristobal FIGUEROA 03/21/21 06/11/24 Shari Kay MD [address] [place], [place] [address] PCP - General Family Medicine 07/26/22 Anh King LPN Licensed Practical Nurse Family Medicine 11/05/24 documented as of this encounter
--- OUTSIDE RECORDS SUMMARY | 2024-11-23 08:45 | XMS_ITS ---
Author Organization [facility] Address [address] [place] [address] Care Team Providers Care Stock Dealer Name Role Phone Shari Kay MD Primary Care Provider [phone] Anh King LPN Unavailable [phone] Chronic Care Management (CCM) Status:Enrolled (Active) Start date:11/05/2024 Enrollment date:11/05/2024 Overview Please assess for Care Management needs. Case Team Name Relationship Phone Anh King LPN(Responsible Staff) Licensed Pra ctical Nurse [phone] Continued Care and Services Coordination
--- OUTSIDE RECORDS SUMMARY | 2024-11-23 08:45 | XMS_ITS | Encounter Summary ---
Author Organization [facility] Address [address] [place] [address] Care Team Providers Care Cable Engineer Outside Plant Name Role Phone Shari Kay MD Primary Care Provider [phone] Anh King LPN Unavailable [phone] Encounter Details Date Type Department Care Team (Late st Contact Info) Description 11/15/2024 Patient Outreach [facility] [address] [place] [address] Anh King LPN Social History Tobacco Use [...] Progress Notes * Anh King LPN - 11/15/2024 3:56 PM EDT Patient was seen by cardiology today to evaluate heart murmur. Orders for holter monitor along withlabs complete. Instructed to start Losartan and Spironolactone. Stopping lostartan hydrochlorothiazide. She is set to return to clinic in 2 weeks following results. Care plan completed as well. documented in this encounter Plan of Treatment Not on file documented as of this encounter Visit Diagnoses Diagnosis Mild aortic stenosis- Primary Aortic valve disorders Cholecystitis Cholecystitis, unspecified documented in this encounter Additional Health Concerns Assessment Noted Time PHQ-9 Depression Total Score: 2 06/17/19 24 8:00 AM EDT documented as of this encounter Care Teams Cable Engineer Outside Plant Relationship Specialty Start Date End Date Shari Kay MD [address] [place] [address] PCP - General Family Medicine 07/26/22 Anh King LPN Licensed Practical Nurse Family Medicine 11/05/24 documented as of this encounter
--- OUTSIDE RECORDS SUMMARY | 2024-11-23 08:45 | XMS_ITS | Encounter Summary ---
Author Organization [facility] Address [address] [place] [address] Care Team Providers Care Nuisance Animal Damage Control Agent Name Role Phone Tamara Aparicio OIL HEATERMAN Unavailable [phone] Shari Kay MD Primary Care Provider [phone] Anh King LPN Unavailable [phone] Encounter Details Date Type Department Care Team (Late st Contact Info) Description 12/22/2023 Orders Only [facility] Family Medicine [address] [place] [address] Naila Orellana MD [address] [place] [address] Social History Tobacco Use Types [...] documented as of this encounter Care Teams Nuisance Animal Damage Control Agent Relationship Specialty Start Date End Date Tamara Aparicio OIL HEATERMAN [address] [facility] [address] [place] [address] PCP - Cristobal FIGUEROA 03/21/21 06/11/24 Shari Kay MD [address] [place] [address] PCP - General Family Medicine 07/26/22 Anh King LPN Licensed Practical Nurse Family Medicine 11/05/24 documented as of this encounter
[2024-11-23 09:52] LABS: NT Pro B Type Natriuretic Pept 1696.0 pg/mL (<=1800.0)
== END 2024-11-23 08:41 | disposition home or self-care (01) ==
LOC: LAB 08:41
PROVIDERS: PCP Family Medicine; Visit Provider Nurse Practitioner Family
DX: I51.89 Other ill-defined heart diseases (principal); I27.20 Pulmonary hypertension, unspecified; R06.09 Other forms of dyspnea
CPT/HCPCS: 36415; 83880

== ENCOUNTER 2024-11-29 08:25 | Outpatient (OUT) | payer MEDICARE, SELFPAY ==
--- NOTE | 2024-11-29 08:29 | PM.CN ---
Consult Note: HPI Data of Consult Patient: known to practice within the last 3 years Consult date: 11/29/24 Requesting Physician: Concha Lopez NP Primary Care Provider: KELLY MCKEON Consult Narrative Reason for consult: back pain Narrative: 79yof who presents for assessment. advanced imaging completed which shows multilevel facet arthropathy in thoracic and lumbar spine. has continued to engage in a series of provider directed home exercises >6 weeks, without lasting benefit. uses otc pain meds as needed and hydrocodone-acetaminophen 5-325mg BID PRN. denies adverse med side effects. pain minimal at this time increasing to 10/10 at times with baking and cooking, notes aching pain. She is noting significant reduction in pain and improvement with baking, standing, walking since rotating to hydrocodone-acetaminophen. cc:: CC: Concha Lopez NP [facility] Medical History Osteoarthritis ?M19.90 - Unspecified osteoarthritis, unspecified site (ICD-10) Heart murmur ?R01.1 - Cardiac murmur, unspecified (ICD-10) Surgical History History of total shoulder replacement ?Z96.619 - Presence of unspecified artificial shoulder joint (ICD-10) History of total knee arthroplasty ?Z96.659 - Presence of unspecified artificial knee joint (ICD-10) History of carpal tunnel release ?Z98.890 - Other specified postprocedural states (ICD-10) Social History Little interest or pleasure in doing things: not at all Feeling down, depressed, or hopeless: not at all Meds Home Medications and Allergies Home Medications ?Medication ?Instructions ?Recorded ?Confirmed ?Type calcium 600 mg (as 1 tab PO BID 07/11/23 10/06/24 History carbonate)-vitamin D3 5 mcg (200 unit) tablet (Calcium 600 + D(3)) losartan 100 mg tablet 100 mg PO DAILY 07/11/23 10/06/24 History multivitamin-ferrous 1 tab PO DAILY 07/11/23 10/06/24 History fumarate-folic acid 18 mg-400 mcg tablet (Centrum Women) trazodone 50 mg tablet 50 mg PO DAILY 07/11/23 10/06/24 History albuterol 90 mcg/actuation aerosol mcg inhalation BID 02/01/24 History inhaler hydrocodone 5 mg-acetaminophen 325 1 tab PO Q6H PRN pain 5 days #15 10/05/24 10/06/24 Rx mg tablet tabs metoprolol succinate 25 mg 25 mg PO DAILY 10/05/24 10/06/24 History tablet,extended release 24 hr hydrocodone 5 mg-acetaminophen 325 1 tab PO BID PRN pain #60 tabs 10/25/24 Rx mg tablet naloxone 4 mg/actuation nasal 4 mg intranasal Q3M PRN opioid 10/25/24 Rx spray (Narcan) overdose #2 ea Allergies Allergy/AdvReac Type Severity Reaction Status Date / Time No Known Drug Allergies Allergy Verified 10/05/24 21:25 Exam Constitutional Documenting provider has reviewed patient's vital signs: yes Common normals: no apparent distress, oriented x3, healthy appearing, alert and well nourished General appearance: cooperative HENMT Common normals: normocephalic, hearing grossly normal bilaterally and moist oral mucous membranes Head and scalp: normocephalic Eye Common normals: PERRL Pupil: PERRL Neck & C-Spine Common normals: full ROM General: normal visual inspection Chest Common normals: inspection of chest normal Respiratory Common normals: normal respiratory effort, no retractions and no use of accessory muscles Back & Pelvis Thoracic spine/upper back: ROM limited, pain with ROM and thoracic spinal tenderness T-spine tenderness location: T5, T6 and T7; no paraspinal muscle spasm Other: negative facet loading no tenderness over T10-L2 facets no radiculopathy on exam strength 5/5 in BLE Neuro Common normals: oriented x3 Sensorium/orientation: alert Motor exam: strength 5/5 throughout and no movement abnormalities noted Psych Common normals: mental status grossly normal, thought process normal, cooperative, affect normal, speech normal and activity/motor behavior normal Speech: normal speech Thought process: normal thought process Results Additional Findings Additional findings: If on a controlled substance or opioids, I have checked an [place] report on this patient and there are no aberrancies noted in the prescribing history.??If on a controlled substance or opioid a drug screen was completed and reviewed within the last year, and if there has not been a drug screen completed we ordered one today to monitor higher risk, state monitored pain medication use. As part of providing excellent, safe, comprehensive care, the following was completed at our patient's visit: 1. A medication reconciliation and review to ensure accurate knowledge of current/active medications, including asking our patients to inform us about any [id number] medications or herbal remedies/nutritional supplements/alternative remedies. 2. A review to specifically ensure our patients have had annual screening for screening for depression, screening for tobacco use, and screening for unhealthy alcohol use. For concerning screenings had a discussion with the patient, provided patient education, and recommended follow-up with primary care provider when appropriate. If patient noted with a risk of falling, they received education on strength, gait, and balance training to prevent future risk of falling. Portions of this note may have been carried over from the previous visit and updated as appropriate. Please note this office utilizes paper charting in addition to the electronic medical record. A list of current medications, vitals, and PMH is available there as the clinical staff outside of myself do not have access to [employer] charting during the clinic day operations. As part of providing quality comprehensive care the current medications, vitals, and PMH were reviewed in the paper chart. Assessment and Plan Assessment and Plan (1) Thoracic spondylosis: Assessment and Plan: ALDO 11% (2) Thoracic back pain: (3) Lumbar spondylosis: (4) Chronic use of opiate drug for therapeutic purpose: Plan continue hydrocodone-acetaminophen 5-325mg BID PRN moderate to severe pain 60 tabs to last 30 days. pt will call for refills. sparingly utilizing at this time narcan discussed and prescribed previously not interested in scs trial/implant continue trazodone 50mg HS, can discuss alternative sleep aids with PCP. cannot take benzodiazepines as discussed continue baclofen 10mg HS PRN pain/spasms f/u 3 months, sooner if needed
--- OUTSIDE RECORDS SUMMARY | 2024-11-29 08:30 | XMS_ITS | CCD ---
Author Organization [facility] Care Team Providers Care Nurse Assessor Name Role Phone PHYSICIAN, DEFAULT Admitting Unavailable [...] able Ede Ramos Attending Unavail able Alessandra SPECIAL PROCEDURE TECH, Tamara Plascencia Unavailable Shari Mckeon MD Primary Care Provider Jovi JAIMES, Kei Brian Attending Unavailable Jovi JAIMES, Kei Brian Attending Unavailable Giedraitis , Andrius Snehal Attending Unavailable Giedraitis , Andrius Vytkristin Attending Unavailable Giedraitis , Andrius Vytautanthony Attending Unavailable Giedraitis , Andrius Vytautanthony Attending Unavailable Giedraitis , Andrius Vytkristin Attending Unavailable Giedraitis , Andrius Emmaytkristin Attending Unavailable Giedraitis , Andrius Vytautanthony Attending Unavailable Giedraitis , Andrius Emmaytkristin Attending Unavailable Shari iMchel MD Primary Care Pr ovider Kimberly Sanchez MD Admit Provider Chema Gupta DO Attending Provider [phone] Shahriar Warren DO Provider Kimberly Sanchez Admitting [...] VASQUEZ Attending Unavailable RAMIRO PAVON Attending Unavailable Anh King LPN Unavailable Allergies Allergy Classification Reported Allergen(s) Allergy Type Date of Onset Reaction(s) Facility (2 sources) Alendronate; Translations: [Fosamax] Drug Allergy [facility] Repository (20 sources) Alendronate; Translations: [ALENDRONATE] Drug [...] / codeine phosphate 30 mg oral tablet (15 sources) Opioid Agonist Start: 03-28-2024 acetaminophen-co deine [...] / HYDROcodone bitartrate 5 mg oral tablet (6 sources) Opioid Agonist Start: 10-06-2024 take 1 tablet by mouth once daily as needed for pain Hydrocodone-Acetaminophen 5-325 mg tablet Active 1 TAB PO Daily as needed for pain October 06, 2024 12:00am Complies with drug therapy Start: 10-05-2024 take 1 tablet by abhinav th every six hours as needed for pain and pain HYDROcodone-acetaminophen (Vass) 5-325 MG tablet Take 1 tablet by mouth every 6 (six) hours if needed for moderate pain or severe pain 10/05/2024 Active [id number] 200 actuat albuterol 0.09 mg/actuat metered dose inhaler (5 sources) beta2-Adrenergic Agonist Start: 10-06-2024 take 2 [...] 07/07/2023 Active furosemide 20 mg oral tablet (6 sources) Loop Diuretic Start: 10-07-2024 take 1 [...] succinate 25 mg extended release oral tablet (8 sources) beta-Adrenergic Aguilar Start: 10-22-2024 take 1 tablet by mouth once daily metoprolol succinate XL (Toprol-XL) 25 MG 24 hr tablet Indications: PVC (premature ventricular contraction) TAKE 1 TABLET (25 MG) BY MOUTH DAILY DO NOT CRUSH OR CHEW. 90 tablet 10/22/2024 Active Start: 10-03-2024 take 1 tablet by abhinav once daily metoprolol succinate XL (Toprol-XL) 25 [...] take 1 capsule by mouth in the orning Multiple Vitamin (multivitamin) capsule Take 1 capsule by mouth in the morning. 0 Active Multivitamin tablet (1 source) Start: 10-06-2024 take 1 tablet by mouth once daily Multivitamin tablet Active 1 TAB PO Daily October 06, 2024 12:00am Complies with drug therapy ondansetron 4 mg oral tablet (14 sources) Serotonin-3 Receptor Antagonist Start: 04-24-2024 take [...] Problem Date Documented Date Episodic/Chronic Abdominal pain (8 sources) Right upper quadrant pain; Translations: [Right upper quadrant pain] Onset: 10-06-2024 10-06-2024 Episodic Asthma (20 sources) Mild intermittent asthma; Translations: [Mild intermittent asthma with status asthmaticus] Onset: 06-12-2017 Resolved: 06-17-2023 07-15-2022 Chronic Biliary tract disease (14 sources) Acute cholecystitis; Translations: [Acute cholecystitis] Onset: [...] 07-15-2022 Chronic Diseases of white blood cells (8 sources) Leukocytosis; Translations: [Elevated white blood cell [...] Spondylosis; intervertebral disc disorders; other back problems (6 sources) Low back pain; Translations: [Low back pain] Onset: 10-08-2024 10-07-2024 Episodic Unclassified (1 source) Call office on Tuesday to schedule follow-up with Dr. Warren on Tuesday or for drain removal. Unclassified (1 source) Call office on Tuesday to schedule follow-up with your Primary Care Provider within 3-5 days of discharge. Unclassified (1 source) A [facility] screening has identified you as FRAIL [...] Four Ways to Beat the Frailty Risk [email or web address] [email or web address] 10-07-2024 Unclassified (1 source) Low back [...] 06-17-2023 06-17-2023 Other aftercare (1 source) Other senior care (current) drug therapy; Translations: [[employer] CURRENT DRUG THERAPY] Onset: 02-14-2020 Episodic Other aftercare (1 source) [facility] (current) use of aspirin; Translations: [INTERMEDIATE CURRENT USE OF ASPIRIN] Onset: 01-04-2020 Episodic [...] Test Name Value Interpretation Reference Range Facility ALL PRO BNPon 11-23-2024 NT PRO B TYPE NATRIURETIC PEPT 1696 pg/mL NINF - 1800.0 pg/mL [facility] 37on 11-15-2024 37 *Stop losartan/hydrochlorothiazid e *Start losartan 100mg daily *Start spironolactone 25mg daily *Have lab work done around 11/22/24 [facility] Visiton 11-15-2024 Follow-up visit [id number] Radha Barraza 1945 F Date Provider Department Center 11/15/2024 Manasa-RAMIRO PAVON Family History Problem Relation Age of Onset No Known Problems Mother No Known Problems Father Family Status - Relation Status Age at Mother Father Level of Service:80936 [place] OFFICE/OUTPATIENT NEW MODERATE MDM 45 MINUTES Reason for Visit and Comments: New Patient [632] Heart Murmur [124] Normal [facility] Basophils [#/volume] in Bloo d by Automated countOrdered By: Shahriar Warren on 10-07-2024 Basophils (Bld) [#/Vol] 0.0 10*3/uL Normal 0.0-0.2 [facility] Comment on above: Result Comment: PERF ORMED BY: [place] [address] PATHOLOGIST TRUCK DRIVER SALESPERSON SHERMAN AUGUSTIN M.D. Performed By: #### B ILTD, CREAT, CBC, BUN #### [address] Basophils/100 leukocytes in Blood by Automated countOrdered By: Shahriar Warren on 10-07-2024 Basophils/100 WBC (Bld) 0.3 % Normal . [facility] Comment on above: Performed By: #### B ILTD, CREAT, CBC, BUN #### [place] [address] [place] Bilirubin, Total and Directo n 10-07-2024 Bilirubin,Indirect 0.2 mg/dL Normal [facility] Comment on above: Result Comment: PERF ORMED BY: [place] [address] PATHOLOGIST TRUCK DRIVER SALESPERSON SHERMAN AUGUSTIN M.D. Performed By: #### B ILTD, CREAT, CBC, BUN #### [address] Bilirubin.indirect [Mass/Vol] 0.10 mg/dL Normal 0.03-0.18 [facility] Comment on above: Performed By: #### B ILTD, CREAT, CBC, BUN #### [place] [address] [place] Bilirubin, total and directo n 10-07-2024 Bilirubin [Mass/Vol] 0.3 mg/dL 0.3 - 1 .0 mg/dL [facility] Bilirubin.indirect [Mass/Vol] 0.1 mg/dL 0.03 - 0.18 mg/dL [facility] Magnesium [Mass/Vol] 0.2 mg/dL [facility] Bilirubin.direct [Mass/volum e] in Serum or PlasmaOrdered By: Shahriar Warren on 10-07-2024 Bilirubin.direct [Mass/Vol] 0.10 mg/dL 0.03-0.18 [facility] Bilirubin.total [Mass/volume ] in Serum or PlasmaOrdered By: Shahriar Warren on 10-07-2024 Bilirubin [Mass/Vol] 0.3 mg/dL Normal 0.3-1.0 [facility] Comment on above: Performed By: #### B ILTD, CREAT, CBC, BUN #### [facility] [address] CBC W Auto Differential pane l (Bld)on 10-07-2024 Basophils (Bld) [#/Vol] 0 10*3/uL 0.0 - 0.2 10*3/uL [facility] Basophils/100 WBC Manual cnt (Syn fld) 0.3 % . [facility] Eosinophils (Bld) [#/Vol] 0.1 10*3/uL 0.0 - 0.45 10*3/uL [facility] Eosinophils/100 WBC Manual cnt (Syn fld) 1.3 % . [facility] Erythrocyte distribution width (RBC) [Ratio] 13.5 % 11.9 - 15.3 % [facility] Hematocrit (Bld) [Volume fraction] 28.5 % Low 34.0 - 46.4 % [facility] Hemoglobin (Bld) [Mass/Vol] 9.6 g/dL Low 11.8 - 15.4 g/dL [facility] Interpretation and review of laboratory results Abnormal [facility] Lymphocytes (Bld) [#/Vol] 0.8 10*3/uL Low 1.00 - 4.8 10*3/uL [facility] Lymphocytes/100 WBC Manual cnt (Syn fld) 9.4 % . [facility] MCH (RBC) [Entitic mass] 31.8 pg 24.7 - 34.3 pg [facility] MCHC (RBC) [Mass/Vol] 33.6 g/dL 32.0 - 35.0 g/dL [facility] MCV (RBC) [Entitic vol] 94.6 fL 80 - 100 fL [facility] Monocytes (Bld) [#/Vol] 0.4 10*3/uL 0.0 - 0.8 10*3/uL [facility] Monocytes+Macrophages/ 100 WBC Manual cnt (Syn fld) 4.2 % . [facility] Neutrophils (Bld) [#/Vol] 7.2 10*3/uL 1.8 - 7.7 10*3/uL [facility] Neutrophils/100 WBC Manual cnt (Syn fld) 84.8 % . [facility] NRBC 0 /100{WBC} 0 - 0.5 /100{WBC} [facility] Platelet mean volume (Bld) [Entitic vol] 8.8 fL 6.3 - 10.7 fL [facility] Platelets (Bld) [#/Vol] 177 10*3/uL 150 - 450 10*3/uL [facility] RBC LM.HPF (Urine sed) [#/Area] 3.01 10*6/uL Low 3.60 - 5.00 10*6/uL [facility] WBC (Bld) [#/Vol] 8.5 10*3/uL 3.8 - 11.6 10*3/uL [facility] WBC LM.HPF (Urine sed) [#/Area] 8.5 [CFU]/mL 3.8 - 11.6 [CFU]/mL [facility] Complete Blood Count Auto Di ffon 10-07-2024 Mean Corpuscular HGB Conc 33.6 g/dL Normal 32.0-35.0 [facility] Comment on above: Performed By: #### B ILTD, CREAT, CBC, BUN #### [facility] [address] NRBC% 0.0 /100{WBC} Normal 0-0.5 [facility] Comment on above: Performed By: #### B ILTD, CREAT, CBC, BUN #### [facility] [address] [place] [id number] [facility] White Blood Count 8.5 [CFU]/mL Normal 3.8-11.6 [facility] Comment on above: Performed By: #### B ILTD, CREAT, CBC, BUN #### [facility] [address] [place] [id number] [place] Creatinineon 10-07-2024 Creatinine Clr Calc Pharmacy 29.30 Normal [facility] Comment on above: Performed By: #### B ILTD, CREAT, CBC, BUN #### [facility] [address] GFR/1.73 sq M.predicted MDRD (S/P/Bld) [Vol rate/Area] 50.796 mL/min/{1.73_m2} Normal [facility] Comment on above: Performed By: #### B ILTD, CREAT, CBC, BUN #### [facility] [address] Creatinine [Mass/Vol]on 09-12 Creatinine (U) [Mass/Vol] 1.1 mg/dL 0.60 - 1.20 mg/dL [facility] CREATININE CLR CALC PHARMACY 29.3 [facility] GFR/1.73 sq M.predicted MDRD (S/P/Bld) [Vol rate/Area] 50.796 mL/min/{1.73_m2} [facility] Creatinine [Mass/volume] in Serum or PlasmaOrdered By: Shahriar Warren on 10-07-2024 Creatinine [Mass/Vol] 1.10 mg/dL Normal 0.60-1.20 [facility] Comment on above: Performed By: #### B ILTD, CREAT, CBC, BUN #### [address] Eosinophils [#/volume] in Bl ood by Automated countOrdered By: Shahriar Warren on 10-07-2024 Eosinophils (Bld) [#/Vol] 0.1 10*3/uL Normal 0.0-0.45 [facility] Comment on above: Performed By: #### B ILTD, CREAT, CBC, BUN #### [place] [address] [place] Eosinophils/100 leukocytes i n Blood by Automated countOrdered By: Shahriar Warren on 10-07-2024 Eosinophils/100 WBC (Bld) 1.3 % Normal . [facility] Comment on above: Performed By: #### B ILTD, CREAT, CBC, BUN #### [address] [address] [place] Erythrocyte distribution wid th [Ratio] by Automated countOrdered By: Shahriar Warren on 10-07-2024 Erythrocyte distribution width (RBC) [Ratio] 13.5 % Normal 11.9-15.3 [facility] Comment on above: Performed By: #### B ILTD, CREAT, CBC, BUN #### [facility] [address] [place] [address] Erythrocytes [#/volume] in B lood by Automated countOrdered By: Shahriar Warren on 10-07-2024 RBC (Bld) [#/Vol] 3.01 10*6/uL Low 3.60-5.00 [facility] Comment on above: Performed By: #### B ILTD, CREAT, CBC, BUN #### [facility] [address] [place] [address] Hematocrit [Volume Fraction] of Blood by Automated countOrdered By: Shahriar Warren on 10-07-2024 Hematocrit (Bld) [Volume fraction] 28.5 % Low 34.0-46.4 [facility] Comment on above: Performed By: #### B ILTD, CREAT, CBC, BUN #### [facility] [address] [place] [address] Hemoglobin [Mass/volume] in BloodOrdered By: Shahriar Warren on 10-07-2024 Hemoglobin (Bld) [Mass/Vol] 9.6 g/dL Low 11.8-15.4 [facility] Comment on above: Performed By: #### B ILTD, CREAT, CBC, BUN #### [facility] [address] [place] [address] Leukocytes [#/volume] correc marvel for nucleated erythrocytes in Blood by Automated counOrdered By: Shahriar Warren on 10-07-2024 WBC corrected for nucl RBC Auto (Bld) [#/Vol] 8.5 10*3/uL 3.8-11.6 [facility] Leukocytes [#/volume] in Blo od by Automated countOrdered By: Shahriar Warren on 10-07-2024 WBC (Bld) [#/Vol] 8.5 10*3/uL Normal 3.8-11.6 [facility] Comment on above: Performed By: #### B ILTD, CREAT, CBC, BUN #### [address] Lymphocytes [#/volume] in Bl ood by Automated countOrdered By: Shahriar Warren on 10-07-2024 Lymphocytes (Bld) [#/Vol] 0.8 10*3/uL Low 1.00-4.8 [facility] Comment on above: Performed By: #### B ILTD, CREAT, CBC, BUN #### [address] Lymphocytes/100 leukocytes i n Blood by Automated countOrdered By: Shahriar Warren on 10-07-2024 Lymphocytes/100 WBC (Bld) 9.4 % Normal . [facility] Comment on above: Performed By: #### B ILTD, CREAT, CBC, BUN #### [address] MCH [Entitic mass] by Automa marvel countOrdered By: Shahriar Warren on 10-07-2024 MCH (RBC) [Entitic mass] 31.8 pg Normal 24.7-34.3 [facility] Comment on above: Performed By: #### B ILTD, CREAT, CBC, BUN #### [address] MCHC Auto (RBC) [Mass/Vol]Or dered By: Shahriar Warren on 10-07-2024 MCHC (RBC) [Mass/Vol] 33.6 g/dL 32.0-35.0 [facility] MCV [Entitic volume] by Auto mated countOrdered By: Shahriar Warren on 10-07-2024 MCV (RBC) [Entitic vol] 94.6 fL Normal 80-100 [facility] Comment on above: Performed By: #### B ILTD, CREAT, CBC, BUN #### [address] Monocytes [#/volume] in Bloo d by Automated countOrdered By: Shahriar Warren on 10-07-2024 Monocytes (Bld) [#/Vol] 0.4 10*3/uL Normal 0.0-0.8 [facility] Comment on above: Performed By: #### B ILTD, CREAT, CBC, BUN #### [facility] [address] [place] [address] [place] Monocytes/100 leukocytes in Blood by Automated countOrdered By: Shahriar Warren on 10-07-2024 Monocytes/100 WBC (Bld) 4.2 % Normal . [facility] Comment on above: Performed By: #### B ILTD, CREAT, CBC, BUN #### [facility] [address] Neutrophils [#/volume] in Bl ood by Automated countOrdered By: Shahriar Warren on 10-07-2024 Neutrophils (Bld) [#/Vol] 7.2 10*3/uL Normal 1.8-7.7 [facility] Comment on above: Performed By: #### B ILTD, CREAT, CBC, BUN #### [facility] [address] Neutrophils/100 leukocytes i n Blood by Automated countOrdered By: Shahriar Warren on 10-07-2024 Neutrophils/100 WBC (Bld) 84.8 % Normal . [facility] Comment on above: Performed By: #### B ILTD, CREAT, CBC, BUN #### [facility] [address] No Panel Informationon 10-07 [facility] No Panel InformationOrdered By: Shahriar Warren on 10-07-2024 Estimated GFR (CKD-EPI) 50.796 mL/Min [facility] Creatinine Clearance (Chem 29.30 [facility] Nucleated erythrocytes [Pres ence] in Blood by Automated countOrdered By: Shahriar Warren on 10-07-2024 Nucleated RBC Auto Ql (Bld) 0.0 /100{WBC} 0-0.5 [facility] Platelet mean volume [Entiti c volume] in Blood by Automated countOrdered By: Shahriar Warren on 10-07-2024 Platelet mean volume (Bld) [Entitic vol] 8.8 fL Normal 6.3-10.7 [facility] Comment on above: Performed By: #### B ILTD, CREAT, CBC, BUN #### [facility] [address] Platelets [#/volume] in Bloo d by Automated countOrdered By: Shahriar Warren on 10-07-2024 Platelets (Bld) [#/Vol] 177 10*3/uL Normal 150-450 [facility] Comment on above: Performed By: #### B ILTD, CREAT, CBC, BUN #### [address] Serum or plasma non-glucuron idated bilirubin measurement (mass/volume)Ordered By: Shahriar Warren on 10-07-2024 Bilirubin.indirect [Mass/Vol] 0.2 mg/dL [facility] Urea nitrogen [Mass/volume] in Serum or PlasmaOrdered By: Shahriar Warren on 10-07-2024 Urea nitrogen [Mass/Vol] 20 mg/dL Normal 7-25 [facility] Comment on above: Performed By: #### B ILTD, CREAT, CBC, BUN #### [address] Urea nitrogen, body fluidon 10-07-2024 Urea nitrogen [Mass/Vol] 20 mg/dL 7 - 25 mg/dL [facility] Alanine aminotransferase [En zymatic activity/volume] in Serum or PlasmaOrdered By: Kimberly Sanchez on 10-06-2024 ALT [Catalytic activity/Vol] 119 U/L High 7-52 [facility] Comment on above: Performed By: #### B ILTD, LIPID, LIPASE, CBC, PT, CMP, DELMI #### [address] Albumin [Mass/volume] in Ser um or Plasma by Bromocresol green (BCG) dye binding methoOrdered By: Kimberly Sanchez on 10-06-2024 Albumin BCG dye [Mass/Vol] 3.3 g/dL Low 3.5-5.7 [facility] Alkaline phosphatase [Enzyma tic activity/volume] in Serum or PlasmaOrdered By: Kimberly Sanchez on 10-06-2024 ALP [Catalytic activity/Vol] 93 U/L Normal 34-104 [facility] Comment on above: Performed By: #### B ILTD, LIPID, LIPASE, CBC, PT, CMP, DELMI #### [facility] [address] Amylase [Enzymatic activity/ volume] in Serum or PlasmaOrdered By: Shahriar Warren on 10-06-2024 Amylase [Catalytic activity/Vol] 41 U/L Normal 29-103 [facility] Comment on above: Performed By: #### B ILTD, LIPID, LIPASE, CBC, PT, CMP, DELMI #### [facility] [address] [place] [address] [place] Aspartate aminotransferase [ Enzymatic activity/volume] in Serum or PlasmaOrdered By: Kimberly Sanchez on 10-06-2024 AST [Catalytic activity/Vol] 161 U/L High 13-39 [facility] Comment on above: Performed By: #### B ILTD, LIPID, LIPASE, CBC, PT, CMP, DELMI #### [facility] [address] [place] [address] [place] Bilirubin, Total and Directo n 10-06-2024 Bilirubin,Indirect 0.3 mg/dL Normal [facility] Comment on above: Performed By: #### B ILTD, LIPID, LIPASE, CBC, PT, CMP, DELMI #### [facility] [address] [place] [address] [place] Bilirubin.indirect [Mass/Vol] 0.30 mg/dL High 0.03-0.18 [facility] Comment on above: Performed By: #### B ILTD, LIPID, LIPASE, CBC, PT, CMP, DELMI #### [facility] [address] [place] [address] [place] Calcium [Mass/volume] in Ser um or PlasmaOrdered By: Kimberly Sanchez on 07-26-2025 Calcium [Mass/Vol] 8.5 mg/dL Low 8.6-10.3 [facility] Comment on above: Performed By: #### B ILTD, LIPID, LIPASE, CBC, PT, CMP, DELMI #### [facility] [address] Carbon dioxide, total [Moles /volume] in Serum or PlasmaOrdered By: Obaydah Daromar on 10-06-2024 CO2 [Moles/Vol] 25.1 mmol/L Normal 21.0-31.0 [facility] Comment on above: Performed By: #### B ILTD, LIPID, LIPASE, CBC, PT, CMP, DELMI #### [facility] [address] Chloride [Moles/volume] in S neva or PlasmaOrdered By: Obaydah Daromar on 10-06-2024 Chloride [Moles/Vol] 101 mmol/L Normal 98-107 [facility] Comment on above: Performed By: #### B ILTD, LIPID, LIPASE, CBC, PT, CMP, DELMI #### [address] Cholesterol [Mass/volume] in Serum or PlasmaOrdered By: Obtonedah Daromar on 10-06-2024 Cholesterol [Mass/Vol] 145 mg/dL Normal 140-200 [facility] Comment on above: Chol less than 200 m g/dl low riskChol 201-239 mg/dl borderline riskChol 240 mg/dl and greater high risk Result Comment: Chol less than 200 mg/dl low risk Chol 201-239 mg/dl borderline risk Chol 240 mg/dl and greater high risk Performed By: #### B ILTD, LIPID, LIPASE, CBC, PT, CMP, DELMI #### [facility] [address] Performed By: #### B ILTD, CREAT, CBC, BUN #### [facility] [address] [place] [address] Cholesterol in HDL [Mass/vol ume] in Serum or PlasmaOrdered By: Obaydah Daromar on 10-06-2024 Cholesterol in HDL [Mass/Vol] 71 mg/dL Normal 23-92 [facility] Comment on above: HDL CHOL ATP-III CLA SSIFICATION Cardiovascular RiskHDL > or equal to 60 mg/dL LOWHDL < 40 mg/dL HIGH Result Comment: HDL CHOL ATP-III CLASSIFICATION Cardiovascular Risk HDL > or equal to 60 mg/dL LOW HDL < 40 mg/dL HIGH Performed By: #### B ILTD, LIPID, LIPASE, CBC, PT, CMP, DELMI #### [facility] [address] Performed By: #### B ILTD, CREAT, CBC, BUN #### [facility] [address] Cholesterol in LDL Calc [Mas s/Vol]Ordered By: Kimberly Sanchez on 10-06-2024 Cholesterol in LDL [Mass/Vol] 59 mg/dL 0-100 [facility] Comment on above: LDL ATP III CLASSIFI CATIONLDL less than 100 mg/dL OptimalLDL 100-129 mg/dL Near or above optimalLDL 130-159 mg/dL Borderline highLDL 160-189 mg/dL HighLDL greater than 189 mg/dL Very high Cholesterol in VLDL Calc [Ma ss/Vol]Ordered By: Kimberly Sanchez on 10-06-2024 Cholesterol in VLDL [Mass/Vol] 14 mg/dL [facility] Complete Blood Count Auto Di ffon 10-06-2024 Basophils (Bld) [#/Vol] 0.0 10*3/uL Normal 0.0-0.2 [facility] Comment on above: Result Comment: PERF ORMED BY: [place] [address] PATHOLOGIST TRUCK DRIVER SALESPERSON SHERMAN AUGUSTIN M.D. Performed By: #### B ILTD, LIPID, LIPASE, CBC, PT, CMP, DELMI #### [facility] [address] Basophils/100 WBC (Bld) 0.2 % Normal . [facility] Comment on above: Performed By: #### B ILTD, LIPID, LIPASE, CBC, PT, CMP, DELMI #### [address] Eosinophils (Bld) [#/Vol] 0.0 10*3/uL Normal 0.0-0.45 [facility] Comment on above: Performed By: #### B ILTD, LIPID, LIPASE, CBC, PT, CMP, DELMI #### [address] Eosinophils/100 WBC (Bld) 0.2 % Normal . [facility] Comment on above: Performed By: #### B ILTD, LIPID, LIPASE, CBC, PT, CMP, DELMI #### [address] Erythrocyte distribution width (RBC) [Ratio] 13.4 % Normal 11.9-15.3 [facility] Comment on above: Performed By: #### B ILTD, LIPID, LIPASE, CBC, PT, CMP, DELMI #### [address] Hematocrit (Bld) [Volume fraction] 34.3 % Normal 34.0-46.4 [facility] Comment on above: Performed By: #### B ILTD, LIPID, LIPASE, CBC, PT, CMP, DELMI #### [address] Hemoglobin (Bld) [Mass/Vol] 11.5 g/dL Low 11.8-15.4 [facility] Comment on above: Performed By: #### B ILTD, LIPID, LIPASE, CBC, PT, CMP, DELMI #### [address] Lymphocytes (Bld) [#/Vol] 0.7 10*3/uL Low 1.00-4.8 [facility] Comment on above: Performed By: #### B ILTD, LIPID, LIPASE, CBC, PT, CMP, DELMI #### [address] Lymphocytes/100 WBC (Bld) 6.6 % Normal . [facility] Comment on above: Performed By: #### B ILTD, LIPID, LIPASE, CBC, PT, CMP, DELMI #### [address] MCH (RBC) [Entitic mass] 31.6 pg Normal 24.7-34.3 [facility] Comment on above: Performed By: #### B ILTD, LIPID, LIPASE, CBC, PT, CMP, DELMI #### [address] MCV (RBC) [Entitic vol] 94.8 fL Normal 80-100 [facility] Comment on above: Performed By: #### B ILTD, LIPID, LIPASE, CBC, PT, CMP, DELMI #### [address] Mean Corpuscular HGB Conc 33.4 g/dL Normal 32.0-35.0 [facility] Comment on above: Performed By: #### B ILTD, LIPID, LIPASE, CBC, PT, CMP, DELMI #### [address] Monocytes (Bld) [#/Vol] 0.4 10*3/uL Normal 0.0-0.8 [facility] Comment on above: Performed By: #### B ILTD, LIPID, LIPASE, CBC, PT, CMP, DELMI #### [address] Monocytes/100 WBC (Bld) 3.9 % Normal . [facility] Comment on above: Performed By: #### B ILTD, LIPID, LIPASE, CBC, PT, CMP, DELMI #### [address] Neutrophils (Bld) [#/Vol] 9.9 10*3/uL High 1.8-7.7 [facility] Comment on above: Performed By: #### B ILTD, LIPID, LIPASE, CBC, PT, CMP, DELMI #### [address] Neutrophils/100 WBC (Bld) 89.1 % Normal . [facility] Comment on above: Performed By: #### B ILTD, LIPID, LIPASE, CBC, PT, CMP, DELMI #### [address] NRBC% 0.0 /100{WBC} Normal 0-0.5 [facility] Comment on above: Performed By: #### B ILTD, LIPID, LIPASE, CBC, PT, CMP, DELMI #### [address] Platelet mean volume (Bld) [Entitic vol] 8.6 fL Normal 6.3-10.7 [facility] Comment on above: Performed By: #### B ILTD, LIPID, LIPASE, CBC, PT, CMP, DELMI #### [address] Platelets (Bld) [#/Vol] 207 10*3/uL Normal 150-450 [facility] Comment on above: Performed By: #### B ILTD, LIPID, LIPASE, CBC, PT, CMP, DELMI #### [address] RBC (Bld) [#/Vol] 3.62 10*6/uL Normal 3.60-5.00 [facility] Comment on above: Performed By: #### B ILTD, LIPID, LIPASE, CBC, PT, CMP, DELMI #### [address] WBC (Bld) [#/Vol] 11.1 10*3/uL Normal 3.8-11.6 [facility] Comment on above: Performed By: #### B ILTD, LIPID, LIPASE, CBC, PT, CMP, DELMI #### [address] White Blood Count 11.1 [CFU]/mL Normal 3.8-11.6 [facility] Comment on above: Performed By: #### B ILTD, LIPID, LIPASE, CBC, PT, CMP, DELMI #### [address] Comprehensive Metabolic Pane daniel 07-26-2025 Albumin [Mass/Vol] 3.3 g/dL Low 3.5-5.7 [facility] Comment on above: Performed By: #### B ILTD, LIPID, LIPASE, CBC, PT, CMP, DELMI #### [facility] [address] Bilirubin [Mass/Vol] 0.6 mg/dL Normal 0.3-1.0 [facility] Comment on above: Performed By: #### B ILTD, LIPID, LIPASE, CBC, PT, CMP, DELMI #### [facility] [address] Creatinine [Mass/Vol] 1.33 mg/dL High 0.60-1.20 [facility] Comment on above: Performed By: #### B ILTD, LIPID, LIPASE, CBC, PT, CMP, DELMI #### [address] Creatinine Clr Calc Pharmacy 24.23 Normal [facility] Comment on above: Performed By: #### B ILTD, LIPID, LIPASE, CBC, PT, CMP, DELMI #### [address] GFR/1.73 sq M.predicted MDRD (S/P/Bld) [Vol rate/Area] 40.447 mL/min/{1.73_m2} Normal [facility] Comment on above: Performed By: #### B ILTD, LIPID, LIPASE, CBC, PT, CMP, DELMI #### [address] Urea nitrogen [Mass/Vol] 28 mg/dL High 7-25 [facility] Comment on above: Performed By: #### B ILTD, LIPID, LIPASE, CBC, PT, CMP, DELMI #### [address] Glucose [Mass/volume] in Ser um or PlasmaOrdered By: Kimberly Sanchez on 10-06-2024 Glucose [Mass/Vol] 99 mg/dL Normal 70-100 [facility] Comment on above: ADA recommended refe rence rangeRandom Glucose Reference Range is dependent on time and content of last meal. Glucose of more than 200 mg/dL in a nonstressed, ambulatory subject supports the diagnosis of Diabetes Mellitus. Result Comment: [place] om Glucose Reference Range is dependent on time and content of last meal. Glucose of more than 200 mg/dL in a nonstressed, ambulatory subject supports the diagnosis of Diabetes Mellitus. ADA recommended reference range Performed By: #### B ILTD, LIPID, LIPASE, CBC, PT, CMP, DELMI #### [address] INR in Platelet poor plasma by Coagulation assayOrdered By: Kimberly Sanchez on 10-06-2024 INR Coag (PPP) [Relative time] 1.1 {INR} Normal [facility] Comment on above: INR Therapeutic Rang [...] heart valves: 3 - 4.5 PERFORMED BY: [place] [address] PATHOLOGIST TRUCK DRIVER SALESPERSON SHERMAN AUGUSTIN M.D. Performed By: #### B ILTD, LIPID, LIPASE, CBC, PT, CMP, DELMI #### [place] [id number] [facility] Daniel 10-06-2024 L ------- Specimen: [id number] Received: 10/08/24 Status: JEB Maria Alejandra Num: [id number] Spec Type: Surgical Subm Dr: Shahriar Warren DO Tissues: A Gallbladder (GALLBLADDER) Procedures: Nino QUINTANA/Halima L3 Age/ Patient Sex Location Account Attending Physician Radha Barraza 79/F 4N [id number] Chema Gupta DO SPEC NUM: [id number] RECD: 10/08/24 STATUS: JEB MARIA ALEJANDRA NUM: [id number] TAMMY: 10/06/24-[address]: Shahriar Warren DO ENTERED: 10/08/[address]: SPEC TYPE: Surgical DEPT: S ENTERED BY: [id number] RECV BY: [id number] ORDERED: MARIANO Gross/Micro L3 ORDERED: MARIANO Gross/Micro L3 Pathological Diagnosis Gallbladder, cholecystectomy: - [...] are filtered and no calculi are identified. Log Yard Derrick Operator sections are submitted in a single cassette. (1, , [id number]) Microscopic Description Microscopic examination is performed Specimen: [id number] Received: 10/08/24 Status: JEB Maria Alejandra Num: [id number] Spec Type: Surgical Subm Dr: Shahriar Warren DO Tissues: A Gallbladder (GALLBLADDER) Procedures: MARIANO Gross/Micro L3 Patient: Radha Barraza [id number] (Continued) Specimen: [id number] Received: 10/08/24 (Continued) Signed (signature on file) Leon Kemp MD 10/09/24 1317 Specimen: [id number] Received: 10/08/24 Status: JEB Maria Alejandra Num: [id number] Spec Type: Surgical Subm Dr: Shahriar Warren DO Tissues: A Gallbladder (GALLBLADDER) Procedures: Nino QUINTANA/Halima L3 Patient: Radha Barraza [id number] (Continued) Specimen: [id number] Received: 10/08/24 (Continued) CPT Codes 55223 Specimen: [id number] Received: 10/08/24 Status: JEB Escamilla Num: [id number] Spec Type: Surgical Subm Dr: Shahriar Warren DO Tissues: A Gallbladder (GALLBLADDER) Procedures: Nino QUINTANA/Halima L3 Patient: Radha Barraza [id number] (Continued) Signed (signature on file) Leon Kemp MD 10/09/24 4353 Normal [facility] Lipase [Enzymatic activity/v olume] in Serum or PlasmaOrdered By: Shahriar Warren on 10-06-2024 Lipase [Catalytic activity/Vol] 13.0 U/L Normal 11.0-82.0 [facility] Comment on above: Performed By: #### B ILTD, CREAT, CBC, BUN #### [address] Lipid Panelon 10-06-2024 LDL Cholesterol,Calculated 59 mg/dL Normal 0-100 [facility] Comment on above: Result Comment: LDL ATP III CLASSIFICATION LDL less than 100 mg/dL Optimal LDL 100-129 mg/dL Near or above optimal LDL 130-159 mg/dL Borderline high LDL 160-189 mg/dL High LDL greater than 189 mg/dL Very high Performed By: #### B ILTD, LIPID, LIPASE, CBC, PT, CMP, DELMI #### [address] Performed By: #### B ILTD, CREAT, CBC, BUN #### [address] Triglyceride w/Reflex 74 mg/dL Normal 0-149 [facility] Comment on above: Result Comment: TRIG ATP III CLASSIFICATION TRIG less than 150 mg/dL Normal TRIG 150-199 mg/dL Borderline high TRIG 200-500 mg/dL High TRIG greater than 500 mg/dL Very high Standard traceable to the Center for Disease Conrtrol and Prevention (CDC) test method. Performed By: #### B ILTD, LIPID, LIPASE, CBC, PT, CMP, DELMI #### [address] Performed By: #### B ILTD, CREAT, CBC, BUN #### [address] VLDL CHOLESTEROL 14 mg/dL Normal [facility] Comment on above: Performed By: #### B ILTD, LIPID, LIPASE, CBC, PT, CMP, DELMI #### [address] Performed By: #### B ILTD, CREAT, CBC, BUN #### [address] Potassium [Moles/volume] in Serum or PlasmaOrdered By: Kimberly Hindsr on 10-06-2024 Potassium [Moles/Vol] 3.8 mmol/L Normal 3.5-5.1 [facility] Comment on above: Performed By: #### B ILTD, LIPID, LIPASE, CBC, PT, CMP, DELMI #### [address] Protein [Mass/volume] in Ser um or PlasmaOrdered By: Kimberly Koehleromar on 10-06-2024 Protein [Mass/Vol] 5.7 g/dL Low 6.4-8.9 [facility] Comment on above: Performed By: #### B ILTD, LIPID, LIPASE, CBC, PT, CMP, DELMI #### [address] Prothrombin time (PT)Ordered By: Kimberly Hindsr on 10-06-2024 PT Coag (PPP) [Time] 12.0 s Normal 9.0-12.9 [facility] Comment on above: A hematocrit value g reater than 55% may lead to inaccurate results in coagulation testing. Patients having hematocrit values >55% require a special collection tube for coagulation studies. Please contact the laboratory at [phone] for redraw instructions. Result Comment: A he matocrit value greater than 55% may lead to inaccurate results in coagulation testing. Patients having hematocrit values >55% require a special collection tube for coagulation studies. Please contact the laboratory at [phone] for redraw instructions. Performed By: #### B ILTD, LIPID, LIPASE, CBC, PT, CMP, DELMI #### [address] Serum globulin measurement b y calculation (mass/volume)Ordered By: Kimberly Sanchez on 10-06-2024 Globulin (S) [Mass/Vol] 2.4 g/dL Normal [facility] Comment on above: Performed By: #### B ILTD, LIPID, LIPASE, CBC, PT, CMP, DELMI #### [address] Serum or plasma albumin/glob ulin mass ratioOrdered By: Obaydah Daromar on 10-06-2024 Albumin/Globulin [Mass ratio] 1.4 {ratio} Normal [facility] Comment on above: Performed By: #### B ILTD, LIPID, LIPASE, CBC, PT, CMP, DELMI #### [address] Serum or plasma anion gap de terminationOrdered By: Obaydah Daromar on 10-06-2024 Anion gap [Moles/Vol] 10.7 mmol/L Normal 6.0-15.0 [facility] Comment on above: Performed By: #### B ILTD, LIPID, LIPASE, CBC, PT, CMP, DELMI #### [address] Serum or plasma total choles terol/high density lipoprotein (HDL) cholesterol mass ratOrdered By: Obaydah Daromar on 10-06-2024 Cholesterol.total/Chol esterol in HDL [Mass ratio] 2.0 {ratio} Normal <5.0 [facility] Comment on above: Result Comment: PERF ORMED BY: [place] [address] PATHOLOGIST TRUCK DRIVER SALESPERSON SHERMAN AUGUSTIN M.D. Performed By: #### B ILTD, LIPID, LIPASE, CBC, PT, CMP, DELMI #### [address] Performed By: #### B ILTD, CREAT, CBC, BUN #### [address] Sodium [Moles/volume] in Ser um or PlasmaOrdered By: Obaydah Daromar on 10-06-2024 Sodium [Moles/Vol] 133 mmol/L Low 136-145 [facility] Comment on above: Performed By: #### B ILTD, LIPID, LIPASE, CBC, PT, CMP, DELMI #### [address] [place] [address] [facility] Triglyceride [Mass/volume] i n Serum or PlasmaOrdered By: Kimberly Sanchez on 10-06-2024 Triglyceride [Mass/Vol] 74 mg/dL 0-149 [facility] Comment on above: TRIG ATP III CLASSIF ICATIONTRIG less than 150 mg/dL NormalTRIG 150-199 mg/dL Borderline highTRIG 200-500 mg/dL High TRIG greater than 500 mg/dL Very highStandard traceable to the Center for Disease Conrtrol and Prevention (CDC) test method. MR Thoracic spine WO contras ton 06-06-2024 [place] [address] Magnetic Resonance Report Signed Patient: RADHA BARRAZA MR#: [id number] : 1945 Acct:[id number] Age/Sex: 79 / F ADM Date: 06/06/24 Loc: MRI Attending Dr: Rinku Lopez NP Ordering Physician: Rinku Lopez NP Date of Service: 06/06/24 Procedure(s): MR thoracic spine wo con Accession Number(s): [id number] cc: Rinku Lopez NP; SHARI MCKEON [place] [id number] Patient Name: RADHA BARRAZA MRN: [id number] date: 1945 Sex: F Assigned Patient Location: MRI Current Patient Location: MRI Accession/Order Number: [id number] Exam Date: 06/06/2024 14:56 Report Date: 06/06/2024 [...] Gomez Jr., D.O.06/06/2024 2:58 PM Dictation Location: [place] [address] Electronically authenticated by: [id number] Y Date: 06/06/2024 14:58 Dictated By: Alejandro Gomez M.D. Signed By: 06/06/24 1501 DD/ 1458 TD/TT: Roll Cutting Operator: [facility] Radiology, Radiologi MD shamir - 06/06/2024 [place] [address] Magnetic Resonance Report Signed Patient: RADHA BARRAZA MR#: [id number] : 1945 Acct:[id number] Age/Sex: 79 / F ADM Date: 06/06/24 Loc: MRI Attending Dr: Rinku Lopez NP Ordering Physician: Rinku Lopez NP Date of Service: 06/06/24 Procedure(s): MR thoracic spine wo con Accession Number(s): [id number] cc: Rinku Lopez NP; SHARI MCKEON [place] [id number] Patient Name: RADHA BARRAZA MRN: [facility]:[id number] date: 1945 Sex: F Assigned Patient Location: MRI Current Patient Location: MRI Accession/Order Number: [id number] Exam Date: 06/06/2024 14:56 Report Date: 06/06/2024 [...] Gomez Jr., D.O.06/06/2024 2:58 PM Dictation Location: [place] [address] Electronically authenticated by: [id number] Y Date: 06/06/2024 14:58 Dictated By: Alejandro Gomez M.D. Signed By: 06/06/24 1501 DD/ 1458 TD/TT: Roll Cutting Operator: [facility] Mapp Radiology Study observation (narrative) [facility] Mapp MR Thoracic spine WO contras tOrdered By: Radiologist Radiology on 06-06-2024 [facility] Mapp Work Phone: BI MAMMOGRAM SCREENING TOMOS YNTHESIS [...] Not Available Consent Formson 07-27-2022 Consent Forms [id number]#1.00OTGTIFF [facility] Discharge Instructionson Discharge Instructions [id number]#1.00[address] Intraoperative Recordon 07-27-2022 MAGR Intraoperative Record MAGR Intra-Op Record Summary Primary Physician: Ede Ramos DO Finalized Date/Time: 07/27/22 09:45:04 Pt. Name: RADHA BARRAZA Antolin/Sex: 1945 FEMALE Med Rec #: [id number] Physician: Ede Ramos DO Financial #: [id number] Pt. Type: D Room/Bed: / Admit/Disch: 07/26/22 [...] Role Performed Surgeon - Primary Anesthesiologist of Bus Person Record Time In 07/26/22 07:39:00 07/26/22 07:39:00 07/26/22 07:39:00 Time Out 07/26/22 09:49:00 07/26/22 09:49:00 07/26/22 09:49:00 Procedure Arthroplasty Shoulder Arthroplasty Shoulder Arthroplasty Shoulder Total Reverse(Left) Total Reverse(Left) Total Reverse(Left) Last Modified By: Mdoe GOLDMAN, Jania Coello RN, Jania Coello RN, Jania Plascencia 07/26/22 09:49:54 07/26/22 09:49:54 07/26/22 09:49:54 Entry 4 Entry 5 Entry 6 Case Attendee Fahad CLIENT SUCCESS DIRECTOR, Lisa Martinez CST, CST CLIENT SUCCESS DIRECTOR/CSFAZOE CLIENT SUCCESS DIRECTOR Role Performed Scrub Personnel Scrub Personnel Mother Helper Time In 07/26/22 07:39:00 07/26/22 07:39:00 07/26/22 07:39:00 Time Out 07/26/22 09:49:00 07/26/22 09:49:00 07/26/22 09:49:00 Procedure Arthroplasty Shoulder Arthroplasty Shoulder Arthroplasty Shoulder Total Reverse(Left) Total Reverse(Left) Total Reverse(Left) Last Modified By: Jania Coello RN, RN, Jania Conde RN 07/26/22 09:49:54 07/26/22 09:49:54 07/26/22 09:49:54 General Comments: [place] - Arthrex rep Surgical Procedures MAGR Pre-Care Text: A.20 Verifies operative procedure, surgical site, and laterality Im.150 Develops individualized plan of care Entry 1 Procedure Arthroplasty Shoulder Primary Procedure Yes Total Reverse Primary Surgeon Ede Ramos Left Kvng DO Surgeon Comment LEFT REVERSE [...] to chemical sources (more content not included)... [facility] Outside Recordson 07-27-2022 Outside Records [id number]#[facility] Provider Orderson 07-27-2022 Provider Orders [id number]#1.00[facility] Telemetry Stripson 3 Telemetry Strips [id number]#1.00[facility] Anesthesia Noteon 07-26-2022 [...] 07/26/2022 11:51 EDT] Remy Da Silva MD [facility] Anesthesia Note Patient: RADHA BARRAZA Age: 77 [...] obstructive pulmonary disease (COPD) / SNOMED CT 65730245 / Confirmed Heart murmur / SNOMED CT 286849793 / Confirmed Hyperlipidemia / SNOMED CT 70731431 / Confirmed HTN (hypertension) / SNOMED CT 4488576025 / Confirmed Histories Family History: COPD Mother Father Procedure history: Arthroplasty of left knee (7348457125). Arthroplasty of right knee (8509742357). Carpal tunnel release (297895556). Comments: 06/29/2022 13:15 EDT - Dorota Myers RN bilat Colonoscopy (920999982). EGD - Esophagogastroduodenoscopy (3928341748). Disorder of rotator cuff (5805497990). Comments: 06/29/2022 13:14 RYANT - Dorota Myers [...] Oriented. Review / Management Laboratory Results Plan [place] [employer]hesi[employer]#(ASA) physical status classification: Class [...] 08:23 EDT] Remy Da Silva MD Normal [facility] Inpatient Patient Summaryon 07-26-2022 [place] [address] Patient Discharge Instructions Name: RADHA BARRAZA : 1945 Patient Address: [address] [place] [address] [place] [address] Primary Care Provider: Name: SHARI MCKEON After you are discharged if you find you have any questions, please, call [phone] ext [phone] to speak to a nurse. Discharge Diagnosis: [...] alcohol and/or drug addiction problems; contact the [facility] 04/10 Crisis Hotline -Text 4HTOQ [place] 286951. If you received any narcotics, sedation, or [...] business decisions or sign any legal documents [facility] would like to thank you for allowing us to assist you with your healthcare needs. The following includes patient education materials and information regarding your injury/illness. RADHA BARRAZA has been given the following list of follow-up instructions, prescriptions, and patient education materials: Follow-up Instructions With: Address: When: Ede Ramos [address] [place] [address], [address] [place] [id number] [facility] (1) 08/03/2022 11:00 AM Medications During the [...] frequently (more content not included)... [facility] Intra-Op Record Summary Primary Physician: Finalized Date/Time: 07/26/22 07:42:32 Pt. Name: LIV BARRAZAJANELLE Dangelo/Sex: 1945 FEMALE Med Rec #: [id number] Physician: Ede Ramos DO Financial #: [id number] Pt. Type: D Room/Bed: / Admit/Disch: 07/26/22 [...] Dorota Myers RN Role Performed Anesthesiologist of Bus Person Bus Person Record Time In 07/26/22 07:13:00 07/26/22 07:13:00 07/26/22 07:13:00 Time Out 07/26/22 07:38:00 07/26/22 07:38:00 07/26/22 07:38:00 Procedure Interscalene Block(Left) Interscalene Block(Left) Interscalene Block(Left) Last Modified By: Kimberley Le RN, Margaret RN Klaehn, Margaret RN 07/26/22 07:39:31 07/26/22 07:39:31 07/26/22 07:39:31 Entry 4 Case Attendee Amy Bates RN Role Performed Bus Person Time In 07/26/22 07:13:00 Time Out 07/26/22 [...] Stretcher Post-op Destinat (more content not included)... [facility] MAGR PACU Recordon MAGR PACU Record MAGR PACU Record Sum zeb Primary Physician: Ede Ramos DO Finalized Date/Time: 07/26/22 10:38:28 Pt. Name: RADHA BARRAZA/Sex: 1945 FEMALE Med Rec #: [id number] Physician: Ede Ramos DO Financial #: [id number] Pt. Type: D Room/Bed: / Admit/Disch: 07/26/22 05:52:10 - Institution: PACU Case Times MAGR Entry 1 In PACU I 07/26/22 09:51:00 Discharge from PACU 07/26/22 10:35:00 I Last Modified By: Warner Bolton RN 07/26/22 10:38:23 Finalized By: Warner Bolton RN Document Signatures Signed By: Warner Bolton RN 07/26/22 10:38 [facility] MAGR Postoperative Recordon 07-26-2022 MAGR Postoperative Record MAGR Phase II Record Summary Primary Physician: Ede Ramos DO Finalized Date/Time: 07/26/22 12:01:17 Pt. Name: RADHA BARRAZA/Sex: 1945 FEMALE Med Rec #: [id number] Physician: Ede Ramos DO Financial #: [id number] Pt. Type: D Room/Bed: / Admit/Disch: 07/26/22 [...] Signed By: Annamarie Samuels RN 07/26/22 12:01 [facility] MAGR Preoperative Recordon 0 07-26-2022 MAGR Preoperative Record MAGR Pre-Op Record Summary Primary Physician: Ede Ramos DO Finalized Date/Time: 07/26/22 07:44:03 Pt. Name: RADHA BARRAZA BRAD /Sex: 1945 FEMALE Med Rec #: [id number] Physician: Ede Ramos DO Financial #: [id number] Pt. Type: D Room/Bed: / Admit/Disch: 07/26/22 [...] Signed By: Kimberley Le RN 07/26/22 07:44 [facility] Operative Report - Surgeon/P pablo [...] Estimated blood loss: 50 Complications: None Findings: Tvou-sh-qcgi in the glenohumeral joint Procedure summary: Patient [...] on: 07/26/2022 09:35 EDT] Ede Ramos DO [facility] Patient Handouton 07-26-2022 Patient Handout [...] or concerns, please call the office at [phone] 7. Follow up as scheduled [facility] XR Shoulder 1 View Lefton [...] MD 07/27/22 4:01 pm Technologist: JORDON RUVALCABA [facility] Comment on above: Order Comment: chey lt status post shoulder replacement Progress Note - Nurseon 07-12 Progress Note - Nurse Pre-op call made t o pt. Pt states understanding of arrival time of 0600 on 07/26/22 and NPO after MN. [Electronically Signed on: 07/23/2022 09:27 EDT] Shantel Gonsalez RN [Verified on: 07/23/2022 09:27 EDT] Shantel Gonsalez RN [facility] Coding Summaryon 07-02-2022 Coding Summary HTMLBase 64 RncjrefsWCh8tRb+PGhlYWQ+PE1 VZRXzV62txNVuyN0ME9kUMJ4JNC HKVEJLMG2DXO3lyIK3QIekZ7Qvj iAv LntgiERqBW14KJq6QIQ9fMazOVy zjT1dmCXdR0u5SbQgQB51eW54CR txOEBrXlM0IeVogflduBHh Z4bsKrTyjUHmBdj+PHRhYmxlIHd sIVHpVHysWWNkKwWuvEehKQ7cTh 9yZGVyLWNvbGxhcHNlOiBj i6gjNOIwVTmiXU6rqHhcJ8WenWY 7KWFus6m2Ww37uLQ+LNVsGYA5cO abTGnvn996VmRse5vvQLG1 sUWhCTzjJTM0S03qn0E9IAHgRUY zECJ4tYW2lY8scHzmnlzvW8DpyS AzGdZ4LTP1pPXubO0csClk pdkxgK8mHui+C82YAD9VWZYUTM0 XHpx8G0UqCmrheVS+RL40XAJnBK 81zZJndMKsb7mvjKo2NaIs OPSmLOW4rGjvLQluu9PuTKTtS67 lqCVqu2J4VXWrhYwutMEaFsGnxT H2kL8pGOlhgbnvh5ncuceq Tqjil4pvnk08bK26P22jUSktSCZ dYFU7WWWfJLLukAuipe7gbK2xUj 8+GDglp7jkc6acxGz8QwVf XGUkkwAyfYmvPRI0w3MzQy53O0R tnVoke4FlOwi1ew50yXVyl8U9gC R5HHimCTKapC0nVHpaBmS2 GMLlVwQtrW16tHAcTEbvFl3gnHd nxVqoMO9xWNOfaggwVACedQ8aQR FwaVUviSadTL4iOTZjzmja t912NiZnEKK0PILliYGmE5OpjQ4 uGxIaMNNmMKMlE7BkjTCrXYbwX6 55JYgnKbN1FOGiawUwQ9Oa TCZkvWroXnF2m7R4Qf9Px3Ogyit fQUG2ESvlQGP7YdVwEkPcYiM4D0 CjUtc6EZKpbPtgZQ0uF4Dt TWMkfqxymdvsvNS2GXBpZTHrgM0 5hVPvZYviOb4it4Q2d249MMDkXA TvtS65Md0ubVdkOPTpoAOR nO0oeyvhx2phykdhGyUtHZJeEWs 1ZQy1LKDbqKsiBtCtRIQ0XbW0BD L8oITycG7veDeqbarbgS7g Oyc+F20aoQ4bOFD5AZR8zlxkEMA fgpEyDZ27KC70R3VfMyyjgSJdxF U+FMTlnpKarTdeTU8oSmJk u2iit3EjCKquH4YyLGEqCTfaMka 1URCkAMG6pEL0fG1jSRHcLYmso3 L7cFS6R4GnfeBkrg3on6ws UVPvROzvH08coINxa4T5VMXhwMD 1HBJouOaeVlCnwR34Ocp+PGNvbG wwo5QbAztkr9ziz0wkmIj4 NpYnTVFuzlFxkAwfONP8r8YoZz1 1B73sCYzeDUTxAZXvMJKzOCHdiL zync9kxM6hYt3+PGNvbCB3 oUI0xN5uKNAaLdM6RKciS013ReE pqYLbNrbxf4dhy8legVp2YiPaSI LhgkTuxTbxTTP4f1KsLu29 Y99kAGliCRMcGWZkPDSlYYBarCc ynu8kfJ2fUj9+RC8gv4bnat48lB 48dHI+WUDtPYJ6vMmhZSxp VIJddZ6cERqfSoH2VYMtIrIdtC3 8pUNuCTpqGk4veCtujVmtVR2nCZ Hmrqtyq365HzNro0bqIRVi nBDgAIqfIFE1N53sc9Y4PTPlVKP nMRJ7aHM7sL9cdAlokhphcPDczI llpbOvbJuaUZecMNbtX171 IHRvcDsnPlBhdGllbnQgTmFtZTo 1O0TlMpu9ARQsaGjtUF3bmJWzDC khUx6avDunmFdeQD2wAHNv [id number] [id number] D2sH8iqCeqatsgnYPelNvz idHutNpdYMhlENmzN238CYQxvFs lOoTgtdUgUECynRP8JK48NN82kK Xkc1W8tES5B4YqQTTdvdep ruxbaWX7IOJmLFQkrS74Nb3ylDg mDs8dNZGhVUS4NIGwtTGyI9WiyV 9fNyBxRYUnSUKcT1BqoDXi QKhbW074NFbmJiG8NOQooyMuO2J xXEQmuRxtBhR2p4L4Nr3YT5Q2BH 24UX57uMFko6J8eXU0L2Mn YCOcnuzblppvxVS3QKXmSQCytL6 4Qb2joNcgGa9jBAViCHL7DVYffZ JvX3DlbM3jBuCqESBkEQMq C9IrnMSzAUsxQ706EUjxZuC2GRM ytmEaV7FgHXRplVlpPwF3y4D1Pd 9RTBq3WK93KS81fULlw6Q9 bRL8J4TaDTLnitqfktrnoXG3VEI hRYAocG43Xl1ctGdqKx8uSIOmKQ O1CBFzaUQiO5TnbB9vEjXp YNDoCNPeW6FheCReTEqfH154KWf hDkY6YRGrslEvN0OpGDPudDfmTm M8k9Q8Ig2KBNOqUI52QQD3 kJU6GC99BY23Q5JcFxwdlYXfuTU +PHRhYmxlIHdpZHRoPScxMDAlJy SdbWkxUU7lKl7uGSApGJSn yDajmVGuQbThb1iaCSSaFNqjXG7 zxGbhR0MyfFK4NRYrw4m5Uw53U1 7bG0CvpIE+KNPgzYU8nBA7 jM2rNyNaXlD8LEbnR853ZiAwuLX dEbcyf5kqb8exuOz2IxL6IWEsel FhtZrfZIH4n6TpHy63H33l IHdpZHRoPSIxNSUiIHZhbGlnbj0 kaZ7iHa7+HFSmyXR8wOQ8fZ8pDv JmVrN2PNvbX711DnNueQZw Cputi1oxg6tovDq6KqKmNONapaQ jqUubLTW4w0OwZw40I6CzjRlit4 OtXnb5lj74uXAbn1V9mTN3 O4IxGSPrlnmkhKQczBsfQH0wIFU ddraeHCRdzA6dLIRsD7g5IvFfWr W3PKaxM0UufgK4CAOuqOFf MVntTRN6B42et3U0PSKxOKXsSQB 7rGU1rS3ucAmcnumjoYRtcDsqnb AnlDibFMvtFIljQ708UVCo aHobONXcwV4cGQJpgEYbtRciEU0 wNTBpbjsnPldPVFQsIEpJTEwgRU 6DKIg1H9UwMxu3KWHczBqs XV5cbYRjXZkbEz5qgZbivKppJI6 yIYSycrvhLGQgxO5cESPpuRMeoN rrIM1zZEYxxsjvk991ZkZx BVO6JSIzmIHuS1JacM7nTsQiBYR kEBPfP3PiuMVnSNysC559CNtlUg F3LTRjkxShY6TnVVBopBfu CaH6l9L0Js6cJd9iLz5wSQE6XF2 6IW64wQDta4Z4bIY4N0TeLTCbyy erkhqyjFZ0XEJuYFFbxB21 hXGqUDacVb0hw7G7z249PKZfMKX fgS21Lq5rzPmdWWKxhKGDgZ4ztq ggc7xggdahQcKlDHInDHc6 GGj3IJKvmMvrNbEdULM8NjA9FEO 1bOUngC0ynYczumghyD7iOoa+Nz usIJPzlpS5Z0ZrPvp3LQJa vNcwGT2siVHdVQxtMv9cvClmtZx zDV9iQHOmnopoETPpqO8sIAAulL BwmFbrMW8fOQJodotaw845 GwGqBFL7YVQpeIJwU1RrxC2uWaB mXZGlLXUrR7BqeDWpPUwhC245YL hhIrY3TCLjnkRdO6SxQCTc cLdyFfW9c5J7Qj2EHD3YUZE9F1U eOcl1XXNksJtsLQ3goITdTLnnIo 6prCvnwWgfJP8aPMKxnyxy KJYtgM2aTVGgyMXvjNuwGE9mNAR aqcxgw691LmIbSCT7NUIdwYPaB4 EslM7vJgNwYGKzONReN0Ev vSHsCUscE073GGznFgA0OSPkuqF uA4CxLMTadLsbQoS5e0V8Wq6WRU wvdGQ+WB98qv75O3PcFoil Tcb6JDAhZOA6sXI7oH8nZLLsFVw wa6N3hOT7B0NzzeWnij7na0ldOS LnWRyqN66bbNYki3I8VFQn jDA9XFMzcFhuNgDeaS61Cvd+PGN twKdxb4GjCcnce4tpx2lsjKx6Ti HtPANegzCmhCjiSLR7c5Qc Ar22F55eKDxiYAXuRQVeAXPpFXD ujDaibj4beI0qXt7+YEZevQW2wW N7cX9oCeFeBsF9MSkmQ918 QrSurHHxIetmf7qcl3tuxYe4CpI xYHKxcoTouEkiLDK1h2NlFh90L6 JynKezt9AqAqy5dn86vUHg p8H7hNP6Z2UtAKDzemglaPDllOd aEI4nPZUxgiraOFVvfQ2sWHVjD7 d8PlYlYaH0NDjkV6BcygR7 EQGnwHZfBNWsuGQAsJ0quyudp7n sbtzkHwDlFGKfFLn5ACl6BIBjsP ltIrMtJFU9XaZ2ENX9cJAz mH1zfYarlonowZ2nEze+PCk9e7s npVDgHT8ztWM2DU60SD39eIEnf5 A4gLX5M1WuIFFapkayczfo rNL8TSWkLXLsgS89Kf4lkBhpXp9 wKPLhNRH0ILBekYKnL5KgsV3gEm DkPDLjZPIqP8OexOVuKVai H206SPfqFkP5EDUuouUvH9HzEGQ phYktVaI4x6F9Ku9GYU26YZ71YB 88bIEtw3C2gAO0A6FxZGAk iiddfaebeUP8VKVoKWRnjE40Kl3 fuNqnJu1eWFOjENX2PFKhhFXbB2 GkqJ4oQyHiTLIhLIXsR5Er fWCqCMffP917BDzjJoT6OCXxboC mA0YzXJBodEuvGfE8m7Z2Gm9JNu 41EJ56US65cTXvr7F8aFQ6 Z1HbFUQmbzwtvpbejGX8HJKiUME ifQ42Vr8gxCmkQb1rBZLvWJW7KJ PseLUxL9GmqT6uEaFtJOPb RVUjH7NdrUUoIYzrO304GRrlBfX 2IPYiqvWyR7LzJZGlpGedQqX5w9 G8Qz2JFVyvpcy5V2PlIpnc dHI+CS85PUTtHS48xGQxpZEbq7c rwSl7BgBvSOClQZL4uWlhGUpuy5 GkCPYaX49waCKuy2X8BRCb bGx (more content not included)... Normal [facility] C MRSA Screenon 06-30-2022 C MRSA Screen Negative [facility] Comment on above: Performed By: #### 1 [id number] ####[facility] (DEFAULT)[address] [place] [address] Progress Note - Nurseon - Progress Note - Nurse Dr. Castro reviewed PAT notes for upcoming surgery 07/26/2022. No new orders at this time [Electronically Signed on: 06/30/2022 11:45 EDT] Annamarie Samuels RN [Verified on: 06/30/2022 11:45 EDT] Annamarie Samuels RN [facility] Provider Orderson 06-30-2022 Provider Orders [id number] [facility] .Auto Diff 1on 06-29-2022 Auto Becker % 10 % Normal 1-12 [facility] Comment on above: Performed By: #### 7 [id number], [id number], [id number] ####[facility] (DEFAULT)[address] [place] [address] Baso Abs# 0.0 x10 Normal 0.0-0.2 [facility] Comment on above: Performed By: #### 7 [id number], [id number], [id number] ####[facility] (DEFAULT)[address] [place] [address] Basophils/100 WBC (Bld) 0.7 % Normal 0.2-2.0 [facility] Comment on above: Performed By: #### 7 077348, [id number], [id number] ####[facility] (DEFAULT)[address] [place] [address] Eos Abs# 0.6 x10 High 0.0-0.4 [facility] Comment on above: Performed By: #### 7 [id number], [id number], [id number] ####[facility] (DEFAULT)[address] [place] [address]33 Eosinophils/100 WBC (Bld) 8.5 % High 0.9-4.0 [facility] Comment on above: Performed By: #### 7 023764, [id number], [id number] ####[facility] (DEFAULT)[address] [place] [address] 42725 Lymph Abs# 1.6 x10 Normal 1.3-2.9 [facility] Comment on above: Performed By: #### 7 424072, [id number], [id number] ####[facility] (DEFAULT)[address] [place] [address] 27410 Lymphocytes/100 WBC (Bld) 24 % Normal 14-48 [facility] Comment on above: Performed By: #### 7 266160, [id number], [id number] ####[facility] (DEFAULT)[address] [place] [address] 62656 Becker Abs# 0.7 x10 Normal 0.0-0.8 [facility] Comment on above: Performed By: #### 7 728803, [id number], [id number] ####[facility] (DEFAULT)[address] [place] [address] 85857 Neut Abs# 3.8 x10 Normal 1.5-9.2 [facility] Comment on above: Performed By: #### 7 027077, [id number], [id number] ####[facility] (DEFAULT)[address] [place] [address] 75484 Neutrophils/100 WBC (Bld) 57 % Normal 44-88 [facility] Comment on above: Performed By: #### 7 997509, [id number], [id number] ####[facility] (DEFAULT)[address] [place] [address] BMP Standardon 06-29-2022 eGFR Non AA 33 mL/min/1.73m2 Invalid Interpretation Code [facility] Comment on above: Performed By: #### 7 [id number], [id number], [id number] ####[facility] (DEFAULT)[address] [place] [address] eGFR AA 40 mL/min/1.73m2 Invalid Interpretation Code [facility] Comment on above: Performed By: #### 7 343076, [id number], [id number] ####[facility] (DEFAULT)[address] [place] [address] 60837 Anion gap [Moles/Vol] 8.9 mmol/L Normal 5.0-19.0 [place] Comment on above: Performed By: #### 7 458985, [id number], [id number] ####[facility] (DEFAULT)[address] [place] [address] 02125 Calcium [Mass/Vol] 9.3 mg/dL Normal 8.9-10.3 [facility] Comment on above: Performed By: #### 7 160833, [id number], [id number] ####[facility] (DEFAULT)[address] [place] [address] 41743 Chloride [Moles/Vol] 102 mmol/L Normal 101-111 [facility] Comment on above: Performed By: #### 7 390952, [id number], [id number] ####[facility] (DEFAULT)[address] [place] [address] 58310 CO2 [Moles/Vol] 28 mmol/L Normal 21-32 [facility] Comment on above: Performed By: #### 7 870373, [id number], [id number] ####[facility] (DEFAULT)[address] [place] [address] 24034 Creatinine [Mass/Vol] 1.53 mg/dL High 0.60-1.30 [place] Comment on above: Performed By: #### 7 415552, [id number], [id number] ####[facility] (DEFAULT)[address] [place] [address] 05190 Glucose [Mass/Vol] 107.0 mg/dL Normal 74.0-118.0 [facility] Comment on above: Performed By: #### 7 180512, [id number], [id number] ####[facility] (DEFAULT)[address] [place] [address] 02780 Osmolality 279 mOsm/L Invalid Interpretation Code [facility] Comment on above: Performed By: #### 7 005435, [id number], [id number] ####[facility] (DEFAULT)[address] [place] [address] 42306 Potassium [Moles/Vol] 3.9 mmol/L Normal 3.6-5.1 [place] Comment on above: Performed By: #### 7 129388, 60109297, [id number] ####[facility] (DEFAULT)[address] [place] [address] Sodium [Moles/Vol] 135.0 mmol/L Low 136.0-144 . 0 [facility] Comment on above: Performed By: #### 7 889388, [id number], [id number] ####[facility] (DEFAULT)[address] [place] [address] Urea nitrogen [Mass/Vol] 36 mg/dL High 8-26 [facility] Comment on above: Performed By: #### 7 446380, [id number], [id number] ####[facility] (DEFAULT)[address] [place] [address] Urea nitrogen/Creatinine [Mass ratio] 23.5 mg/mg High 4.6-16.2 [facility] Comment on above: Performed By: #### 7 513918, [id number], [id number] ####[facility] (DEFAULT)[address] [place] [address] 53932 CBC w/ Auto Diffon 3 Erythrocyte distribution width (RBC) [Ratio] 12.8 % Normal 11.5-15.0 [facility] Comment on above: Performed By: #### 7 716105, [id number], [id number] ####[facility] (DEFAULT)[address] [place] [address] Hematocrit (Bld) [Volume fraction] 36.4 % Normal 33.7-40.4 [facility] Comment on above: Performed By: #### 7 563163, 85341006, [id number] ####[facility] (DEFAULT)[address] [place] [address] Hemoglobin (Bld) [Mass/Vol] 12.2 g/dL Normal 11.3-15.9 [facility] Comment on above: Performed By: #### 7 116009, 49469313, [id number] ####[facility] (DEFAULT)[address] [place] [address] Man Diff? Auto Invalid Interpretation Code [facility] Comment on above: Performed By: #### 7 143521, [id number], [id number] ####[facility] (DEFAULT)[address] [place] [address] MCH (RBC) [Entitic mass] 32 pg Normal 24-34 [facility] Comment on above: Performed By: #### 7 312733, [id number], [id number] ####[facility] (DEFAULT)[address] [place] [address] MCHC (RBC) [Mass/Vol] 33 g/dL Normal 26-37 [place] Comment on above: Performed By: #### 7 184880, [id number], [id number] ####[facility] (DEFAULT)[address] [place] [address] MCV (RBC) [Entitic vol] 97 fL Normal 81-100 [facility] Comment on above: Performed By: #### 7 423117, 12024186, [id number] ####[facility] (DEFAULT)[address] [place] [address] Platelet 336 x10 Normal 138-427 [facility] Comment on above: Performed By: #### 7 981223, [id number], [id number] ####[facility] (DEFAULT)[address] [place] [address] Platelet mean volume (Bld) [Entitic vol] 7.2 fL Normal 6.3-10.2 [facility] Comment on above: Performed By: #### 7 840693, [id number], [id number] ####[facility] (DEFAULT)[address] [place] [address] RBC 3.77 x10 Normal 3.70-5.30 [facility] Comment on above: Performed By: #### 7 718740, 47590645, [id number] ####[facility] (DEFAULT)[address] [place] [address] 41862 WBC 6.7 x10 Normal 3.5-10.5 [facility] Comment on above: Performed By: #### 7 953077, [id number], [id number] ####[facility] (DEFAULT)[address] [place] [address] 87753 UA w Culture if Ind Standard on 06-29-2022 Breakpoint UA Normal [facility] Comment on above: Performed By: #### 1 [id number] #### [facility] (DEFAULT) [address] [place] [address] 99914 Color (U) Yellow [facility] Comment on above: Performed By: #### 1 [id number] #### [facility] (DEFAULT) [address] [place] [address] 40109 Culture? Not Indicated Invalid Interpretation Code [facility] Comment on above: Result Comment: Resu lt created by rule GL_MAGR_ADD_UA_CULT1 Performed By: #### 1 [id number] #### [facility] (DEFAULT) [address] [place] [address] 78153 Glucose (U) [Mass/Vol] Negative [facility] Comment on above: Performed By: #### 1 [id number] #### [facility] (DEFAULT) [address] [place] [address] 29345 Ketones Ql (U) Negative [facility] Comment on above: Performed By: #### 1 [id number] #### [facility] (DEFAULT) [address] [place] [address] 49701 Micro? Not Indicated Invalid Interpretation Code [facility] Comment on above: Result Comment: Resu lt created by rule GL_MAGR_ADD_UA_MICRO Performed By: #### 1 [id number] #### [facility] (DEFAULT) [address] [place] [address] 71066 UA Bilirubin Negative [facility] Comment on above: Performed By: #### 1 [id number] #### [facility] (DEFAULT) [address] [place] [address] 09873 UA Blood Negative Normal NEGATIVE [facility] Comment on above: Performed By: #### 1 [id number] #### [facility] (DEFAULT) [address] [place] [address] 80182 UA Clarity CLEAR Normal CLEAR [facility] Comment on above: Performed By: #### 1 [id number] #### [facility] (DEFAULT) [address] [place] [address] 69574 UA Leuk Est Negative Normal NEGATIVE [facility] Comment on above: Performed By: #### 1 [id number] #### [facility] (DEFAULT) [address] [place] [address] 27247 UA Nitrite Negative Normal NEGATIVE [facility] Comment on above: Performed By: #### 1 [id number] #### [facility] (DEFAULT) [address] [place] [address] 62742 UA pH 6.5 Normal 5-8 [facility] Comment on above: Performed By: #### 1 [id number] #### [facility] (DEFAULT) [address] [place] [address] UA Protein Negative Normal NEGATIVE [facility] Comment on above: Performed By: #### 1 [id number] #### [facility] (DEFAULT) [address] [place] [address] 56651 UA Spec Grav 1.010 Normal 1.001-1.[address] [place] [address] Comment on above: Performed By: #### 1 [id number] #### [facility] (DEFAULT) [address] [place] [address] 38957 UA Urobilinogen 0.2 mg/dL Normal 0.2-1.0 [facility] Comment on above: Performed By: #### 1 [id number] #### [facility] (DEFAULT) [address] [place] [address] 00083 Urine Source Clean Catch Normal [facility] Comment on above: Performed By: #### 1 [id number] #### [facility] (DEFAULT) [address] [place] [address] 96885 MRI Shoulder w/o Lefton 04-15 MRI Shoulder [...] Adams on 05/11/2022 1041 Normal [facility] SCREENING MAMMOGRAM W/ARABELLA, BILATERAL*on 11-20-2021 SCREENING [...] VERY IMPORTANT TO YOUR HEALTH. THE CURRENT [employer] AND [employer] GUIDELINES RECOMMENDS ANNUAL MAMMOGRAPHY BEGINNING AT AGE 40 THIS FACILITY USES A REMINDER SYSTEM TO ENSURE ALL PATIENTS RECEIVE REMINDER NOTIFICATIONS AT THE APPROPRIATE TIME BASED ON THE RECOMMENDATIONS OF THIS EXAM. Report reported and signed by Alejandro Forte on 11/20/2021 0949 Normal [facility] Comprehensive Metabolic Pane [facility] 06-10-2021 Albumin [Mass/Vol] 4.2 g/dL Normal 3.6-5.1 Madyson goldman [place] [employer] Comment on above: Performed By: #### C JEWELS, JARVIS #### [facility] [address] [facility] [place] [id number] Albumin/Globulin [Mass ratio] 1.7 {ratio} Normal 1.0-2.5 [facility] Comment on above: Performed By: #### C JEWELS LIPD #### [facility] [address] [place], [place] [id number] ALP [Catalytic activity/Vol] 82 U/L Normal 35-119 [facility] Comment on above: Performed By: #### C MP, LIPD #### [facility] [address] [facility] [place] [id number] ALT [Catalytic activity/Vol] 15 U/L Normal 6-33 [facility] Comment on above: Result Comment: 02/11 Female reference range changed. Performed By: #### C JEWELS LIPD #### [facility] [address] [place], [place] [id number] Anion gap [Moles/Vol] 15 mmol/L Normal 12-20 [facility] Comment on above: Result Comment: Effe ctive 03/19/2019 reference range changed. Performed By: #### C JEWELS LIPD #### [facility] [address] [place], [place] [id number] AST [Catalytic activity/Vol] 21 U/L Normal 9-34 [facility] Comment on above: Performed By: #### C JEWELS LIPD #### [facility] [address] [place], [place] [id number] BUN/CREA 28 Ratio High 6-22 [facility] Comment on above: Performed By: #### C MP, LIPD #### [facility] [address] [place], [place] [id number] Calcium [Mass/Vol] 9.3 mg/dL Normal 8.6-10.2 [facility] Comment on above: Performed By: #### C MP LIPD #### [facility] [address] [facility] [place] [id number] Chloride [Moles/Vol] 106 mmol/L Normal 98-107 [facility] Comment on above: Performed By: #### C MP, LIPD #### [facility] [address] [facility] [place] [id number] CO2 [Moles/Vol] 24 mmol/L Normal 20-31 [facility] Comment on above: Performed By: #### C JEWELS, LIPD #### [facility] [address] [place], [place] [id number] Creatinine [Mass/Vol] 1.1 mg/dL Normal 0.6-1.4 [facility] Comment on above: Performed By: #### C JEWELS, LIPD #### [facility] [address] [facility] [id number] eGFRAA 58 mL/min/1.73m2 Low >60 [facility] Comment on above: Performed By: #### C JEWELS, LIPD #### [facility] [address] [facility] [place] [id number] eGFRNAA 48 mL/min/1.73m2 Low >60 [facility] Comment on above: Performed By: #### C JEWELS, LIPD #### [facility] [address] [place], [place] [id number] Globulin (S) [Mass/Vol] 2.5 g/dL Normal 1.9-3.7 [facility] Comment on above: Performed By: #### C JEWELS, LIPD #### [facility] [address] [place], [place] [id number] Glucose [Mass/Vol] 94 mg/dL Normal 65-[address] [facility] Comment on above: Result Comment: For FASTING Glucose --- ADA reference ranges: Normal 65-99 mg/dl Prediabetes 100-125 Diabetes >/= 126 Performed By: #### C JEWELS, LIPD #### [facility] [address] [place], [place] [id number] Potassium [Moles/Vol] 4.4 mmol/L Normal 3.5-5.5 [facility] Comment on above: Performed By: #### C JEWELS, LIPD #### [facility] [address] [facility] [id number] Protein [Mass/Vol] 6.7 g/dL Normal 6.1-8.[address] [facility] Special[facility] Comment on above: Performed By: #### C JEWELS, LIPD #### [facility] [address] [facility] [id number] Sodium [Moles/Vol] 141 mmol/L Normal 135-146 [facility] Comment on above: Performed By: #### C JEWELS, LIPD #### [facility] [address] [place], [place] [id number] TBIL <0.3 Normal [facility] Comment on above: Performed By: #### C JEWELS, LIPD #### [facility] [address] [place], [place] [id number] Urea nitrogen [Mass/Vol] 32 mg/dL High 7-25 [facility] Comment on above: Performed By: #### C JEWELS LIPD #### [facility] [address] [place], [place] [id number] Lipid Panelon 06-10-2021 Cholesterol [Mass/Vol] 237 mg/dL High 125-[address] [facility] Comment on above: Result Comment: Low risk < 200mg/dL Borderline risk 201-239 mg/dl High risk > or equal to 240 Performed By: #### C JEWELS, LIPD #### [facility] [address] [place], [place] [id number] Cholesterol in HDL [Mass/Vol] 100 mg/dL Normal >40 [facility] Comment on above: Result Comment: High Cardiovascular Risk HDL <40 mg/dL Low Cardiovascular Risk HDL > or equal to 60 mg/dl Performed By: #### C JEWELS, LIPD #### [facility] [address], [place] [id number] Cholesterol in LDL [Mass/Vol] 124 mg/dL Normal [facility] Comment on above: Result Comment: LDL ATP III CLASSIFICATION LDL less than 100 mg/dl Optimal LDL 100-129 mg/dl Near or above optimal LDL 130-159 Borderline high LDL 160-189 High LDL greater than 189 mg/dl Very High Performed By: #### C JEWELS, LIPD #### [facility] [address], [place] [id number] Cholesterol in VLDL [Mass/Vol] 13 mg/dL Normal [facility] Comment on above: Performed By: #### C JEWELS, LIPD #### [facility] [address], [place] [id number] Cholesterol.total/Chol esterol in HDL [Mass ratio] 2 {ratio} Normal [place] [facility] Comment on above: Performed By: #### C MP, LIPD #### [facility] [address], [place] [id number] Triglyceride [Mass/Vol] 67 mg/dL Normal 30-150 [facility] [employer] Comment on above: Result Comment: TRIG ATPIII CLASSIFICATIONS TRIG less than 150 mg/dl Normal TRIG 150-199 mg/dl Borderline High TRIG 200-500 mg/dl High TRIG greather than 500 mg/dl Very High Performed By: #### C MP, LIPD #### [facility] [address], [place] [id number] ECHOCARDIO M/2D COMPLETEon 0 10-24-2020 ECHOCARDIO M/2D COMPLETE Patient: RADHA BARRAZA Exam Date: 10/24/2020 : 1945 Gender:F Ordering : DR SHARI MCKEON M.D. Admission #: [id number] Family : Order #: [id number] CLICK HERE TO VIEW EXAM ECHOCARDIOGRAM REPORT [...] Area(A4C): 13.90 cm2 Left Atrium Systolic Volume(A2C): 59275 mm3 Left Atrium Systolic Volume(A4C): 54525 mm3 Mitral Valve MV E to A Ratio: 1.10 Mitral Valve A-Wave Peak Velocity: 68.60 cm/s Mitral Valve E-Wave Peak Velocity: 74.50 cm/s Deceleration Time: 259 ms Right Ventricle Aorta AO Root Diam: 2.60 cm Aortic Valve Peak Velocity (Antegrade Flow): 161.00 cm/s, 230.00 cm/s AoV Area (Peak Daniel): 1.93 cm2 AoV Area (VTI): 1.90 cm2 Deceleration [place]: 1880 mm/s2 Pressure Half-Time: 528 ms Peak [...] Normal [facility] HEMOGLOBINon 09-30-2020 Hemoglobin (Bld) [Mass/Vol] 12.3 g/dL Normal 12.0-16.0 [facility] Comment on above: Performed By: #### H GB #### [facility] [address] [address] Geraldo Gaitan H PYLORI TISSUEon 02-01-2020 H PYL TISSUE, UREASE Negative Normal NEGATIVE [facility] Comment on above: Performed By: #### H GB #### [facility] [address] [address] Geraldo Gaitan COVID-19 PCRon 01-27-2020 SARS-CoV-2 (COVID-19) RNA VIVIENNE+probe Ql (Unsp spec) Not detected Normal Not Detected [facility] Comment on above: Result Comment: This nucleic acid amplification test was developed and its performance characteristics determined by [employer]. Nucleic acid amplification tests include PCR and [...] CVDPCR #### [facility] [address] [address] Geraldo Gaitan PRIORITY COVID PROCESSINGon 01-27-2020 Comment Comment Normal [facility] Comment on above: Result Comment: Rece ived Performed By: #### C VDSTAT, CVDPCR #### [facility] [address] [place], [place] [id number] Geraldo Gaitan CULTURE BLOODon 01-08-2020 Microscopic examination [...] F Trimethoprim/Sulfamethoxazo le <=20 S F Normal [facility] Comment on above: Performed By: #### H GB #### [facility] [address] [place] [address] Geraldo Gaitan BLOOD CULTURE ID PANELon A. baumannii Not detected Normal [facility] Comment on above: Performed By: #### B MIRYAM #### [facility] [address] [place] [address] Geraldo Gaitan BCID CONTROLS PASSED Normal [facility] Comment on above: Performed By: #### B MIRYAM #### [facility] [address] [place] [address] Geraldo Gaitan BCIDBTHD BLOOD CULTURE BOTTLE INFORMATION Normal [facility] Comment on above: Performed By: #### B MIRYAM #### [facility] [address] [place] [address] Geraldo Gaitan BCIDHD1 ANTIMICROBIAL RESIST ANCE GENES Normal [facility] Comment on above: Performed By: #### B MIRYAM #### [facility] [address] [place] [address] Geraldo Gaitan BCIDHD2 SEE BELOW Normal [facility] Comment on above: Result Comment: KPC- [...] MIRYAM #### [facility] [address] [place] [address] Geraldo Kandy BCIDHD3 Positive Normal [facility] Comment on above: Performed By: #### B MIRYAM #### [facility] [address] [place] [address] Geraldo Kandy BCIDHD3 Negative Normal [facility] Comment on above: Performed By: #### B MIRYAM #### [facility] [address] [place] [address] Geraldo Kandy BCIDHD5 YEAST Normal [facility] Comment on above: Performed By: #### B MIRYAM #### [facility] [address] [place] [address] Geraldo Kandy BCIDHD6 SEE BELOW [facility] Comment on above: Result Comment: Note : All genus and species BCID FilmArray results will be verified post subculturing via Maldi-Tof MS testing methodology. Performed By: #### B MIRYAM #### [facility] [address] [place] [address] Geraldo Kandy Bottle Set: Set 2 Normal [facility] Comment on above: Performed By: #### B MIRYAM #### [facility] [address] [place] [address] Geraldo Kandy Bottle: Aerobic Normal [facility] Comment on above: Performed By: #### B MIRYAM #### [facility] [address] [place] [address] Geraldo Kandy Naomi albicans Not detected Normal [facility] Comment on above: Performed By: #### B MIRYAM #### [facility] [address] [place] [address] Geraldo Kandy Naomi glabrata Not detected Normal [facility] Comment on above: Performed By: #### B MIRYAM #### [facility] [address] [place] [address] Geraldo Kandy Naomi Krusei Not detected Normal [facility] Comment on above: Performed By: #### B MIRYAM #### [facility] [address] [place] [address] Geraldo Kandy Naomi Parapsilosis Not detected Normal [facility] Comment on above: Performed By: #### B MIRYAM #### [facility] [address] [address] Geraldo Kandy Naomi Tropicalis Not detected Normal [facility] Comment on above: Performed By: #### B MIRYAM #### [facility] [address] [place] [address] Geraldo Kandy E. Cloacae complex Not detected Normal [facility] Comment on above: Performed By: #### B MIRYAM #### [facility] [address] [place] [address] Geraldo Kandy Enterobacteriaceae Detected Invalid Interpretation Code [facility] Comment on above: Performed By: #### B MIRYAM #### [facility] [address] [place] [address] Geraldo Kandy Enterococcus Not detected Normal [facility] Comment on above: Performed By: #### B MIRYAM #### [facility] [address] [place] [address] Geraldo Kandy Escheria coli Detected Normal [facility] Comment on above: Performed By: #### B MIRYAM #### [facility] [address] [place] [address] Geraldo Kandy K. oxytoca Not detected Normal [facility] Comment on above: Performed By: #### B MIRYAM #### [facility] [address] [place] [address] Geraldo Kandy K. pneumoniae Not detected Normal [facility] Comment on above: Performed By: #### B MIRYAM #### [facility] [address] [place] [address] Geraldo Kandy KPC Resistant Gene Not detected Normal [facility] Comment on above: Performed By: #### B MIRYAM #### [facility] [address] [place] [address] Geraldo Kandy List. monocytogenes Not detected Normal [facility] Comment on above: Performed By: #### B MIRYAM #### [facility] [address] [place] [address] Geraldo Kandy mecA Resistant Gene Not detected Normal [facility] Comment on above: Performed By: #### B MIRYAM #### [facility] [address] [place] [address] Geraldo Kandy Proteus Not detected Normal [facility] Comment on above: Performed By: #### B MIRYAM #### [facility] [address] [place] [address] Geraldo Kandy Pseud. aeruginosa Not detected Normal [facility] Comment on above: Performed By: #### B MIRYAM #### [facility] [address] [place] [address] Geraldobhumi Gaitan Seratia marcescens Not detected Normal [facility] Comment on above: Performed By: #### B MIRYAM #### [facility] [address] [place] [address] Geraldobhumi Gaitan Site: R AC Normal [facility] Comment on above: Performed By: #### B MIRYAM #### [facility] [address] [place] [address] Geraldobhumi Gaitan Staph. aureus Not detected Normal [facility] Comment on above: Performed By: #### B MIRYAM #### [facility] [address] [place] [address] Geraldo Kandy Staphylococcus Not detected Normal [facility] Comment on above: Performed By: #### B MIRYAM #### [facility] [address] [place] [address] Geraldo Kandy Strep. agalactiae Not detected Normal [facility] Comment on above: Performed By: #### B MIRYAM #### [facility] [address] [place] [address] Geraldo Kandy Strep. pneumoniae Not detected Normal [facility] Comment on above: Performed By: #### B MIRYAM #### [facility] [address] [place] [address] Geraldo Kandy Strep. pyogenes Not detected Normal [facility] Comment on above: Performed By: #### B MIRYAM #### [facility] [address] [place] [address] Geraldo Kandy Streptococcus Not detected Normal [facility] Comment on above: Performed By: #### B MIRYAM #### [facility] [address] [place] [address] Geraldo Gaitan Aicha/B Resist. Gene Not detected Normal [facility] Comment on above: Performed By: #### B MIRYAM #### [facility] [address] [place] [address] Geraldo Kandy CBC AUTO DIFFon 01-02-2020 BASO # 0.0 103/ul Normal 0.0-0.1 [facility] Comment on above: Performed By: #### C BC #### [facility] [address] [place] [address] Geraldo Kandy Basophils/100 WBC (Bld) 0.3 % Normal 0.2-2.0 [facility] Comment on above: Performed By: #### C BC #### [facility] [address] [place] [address] Geraldo Kandy EO # 0.0 103/ul Normal 0.0-0.7 [facility] Comment on above: Performed By: #### C BC #### [facility] [address] [place] [address] Geraldo Gaitan Eosinophils/100 WBC (Bld) 0.3 % Critically low 0.9-7.0 [facility] Comment on above: Performed By: #### C BC #### [facility] [address] [place] [address] Geraldobhumi Gaitan Erythrocyte distribution width (RBC) [Ratio] 12.6 % Normal 11.0-15.0 [facility] Comment on above: Performed By: #### C BC #### [facility] [address] [place] [address] Geraldobhumi Gaitan Hematocrit (Bld) [Volume fraction] 42.7 % Normal 36.0-48.0 [facility] Comment on above: Performed By: #### C BC #### [facility] [address] [place] [address] Geraldo Kandy Hemoglobin (Bld) [Mass/Vol] 13.6 g/dL Normal 12.0-16.0 [facility] Comment on above: Performed By: #### C BC #### [facility] [address] [place] [address] Grealdo Kandy IG # 0.04 10e3/ul Critically high 0.00-0.03 [facility] Comment on above: Performed By: #### C BC #### [facility] [address] [place] [address] Geraldo Kandy IG % 0.3 % Normal 0.0-0.5 [facility] Comment on above: Performed By: #### C BC #### [facility] [address] [place] [address] Geraldo Kandy LYMPH # 0.5 103/ul Critically low 1.2-3.8 [facility] Comment on above: Performed By: #### C BC #### [facility] [address] [place] [address] Geraldo Kandy Lymphocytes/100 WBC (Bld) 4.4 % Critically low 20.5-60.0 [facility] Comment on above: Performed By: #### C BC #### [facility] [address] [place] [address] Geraldo Kandy MANUAL DIFF REQ NO Normal [facility] Comment on above: Performed By: #### C BC #### [facility] [address] [place] [address] Geraldo Kandy MCH (RBC) [Entitic mass] 30.6 pg Normal 26.7-34.0 [facility] Comment on above: Performed By: #### C BC #### [facility] [address] [place] [address] Geraldo Kandy MCHC (RBC) [Mass/Vol] 31.9 g/dL Normal 29.9-35.2 [facility] Comment on above: Performed By: #### C BC #### [facility] [address] [place] [address] Grealdo Kandy MCV (RBC) [Entitic vol] 96.0 fL Normal 81.0-99.0 [facility] Comment on above: Performed By: #### C BC #### [facility] [address] [place] [address] Geraldo Gaitan MONO # 0.8 103/ul Normal 0.3-0.8 [facility] Comment on above: Performed By: #### C BC #### [facility] [address] [place] [address] Geraldo Gaitan Monocytes/100 WBC (Bld) 6.5 % Normal 1.7-12.0 [facility] Comment on above: Performed By: #### C BC #### [facility] [address] [place] [address] Geraldo Gaitan NEUT # 10.1 103/ul Critically high 1.4-6.5 [facility] Comment on above: Performed By: #### C BC #### [facility] [address] [place] [address] Geraldo Gaitan Neutrophils/100 WBC (Bld) 88.2 % Critically high 43.0-75.0 [facility] Comment on above: Performed By: #### C BC #### [facility] [address] [place] [address] Geraldo Gaitan Platelet mean volume (Bld) [Entitic vol] 9.8 fL Normal 9.5-13.5 [facility] Comment on above: Performed By: #### C BC #### [facility] [address] [place] [address] Geraldo Gaitan PLT 254 103/ul Normal 150-450 [facility] Comment on above: Performed By: #### C BC #### [facility] [address] [place], [place] [id number] Geraldo Gaitan RBC 4.45 106/ul Normal 4.20-5.40 [facility] Comment on above: Performed By: #### C BC #### [facility] [address] [place], [place] [id number] Geraldo Gaitan CT HEAD WO CONon 01-02-2020 [...] Normal [facility] CULTURE BLOODon 01-02-2020 Microscopic examination of blood, culture Culture Observations: No growth at 5 days Normal [facility] Comment on above: Performed By: #### H SAKINA #### [facility] [address] [place] [address] Geraldo Kandy CULTURE URINEon 01-02-2020 CULTURE URINE Culture Observations : Light growth of mixed genital eliezer.No potential pathogens seen. Normal [facility] Comment on above: Performed By: #### H SAKINA #### [facility] [address] [place] [address] Geraldo Kandy ER URINE PROFILEon 0 Bilirubin Ql (U) Negative Normal NEGATIVE [facility] Comment on above: Performed By: #### MELODY CORDOVA #### [facility] [address] [place] [address] Geraldo Kandy Clarity (U) SL CLOUDY Normal [facility] Comment on above: Performed By: #### MELODY CORDOVA #### [facility] [address] [place] [address] Geraldo Kandy Color (U) LT. YELLOW Normal YELLOW [facility] Comment on above: Performed By: #### MELODY CORDOVA #### [facility] [address] [place] [address] Geraldo Kandy ERUAHD A micrscopic examina tion will be performed if indicated. Normal [facility] Comment on above: Performed By: #### MELODY CORDOVA #### [facility] [address] [address] Geraldo Kandy Glucose Ql (U) Negative Normal NEGATIVE [facility] Comment on above: Performed By: #### MELODY CORDOVA #### [facility] [address] [place] [address] Geraldo Kandy Hemoglobin Ql (U) SMALL Normal NEGATIVE [facility] Comment on above: Performed By: #### MELODY CORDOVA #### [facility] [address] [place] [address] Geraldo Kandy Ketones Ql (U) Negative Normal NEGATIVE [facility] Comment on above: Performed By: #### MELODY CORDOVA #### [facility] [address] [place] [address] Geraldo Kandy LEUKOCYTES TRACE Normal NEGATIVE [facility] Comment on above: Performed By: #### MELODY CORDOVA #### [facility] [address] [place] [address] Geraldo Kandy Nitrite Ql (U) Negative Normal NEGATIVE [facility] Comment on above: Performed By: #### MELODY CORDOVA #### [facility] [address] [place] [address] Geraldo Kandy pH (U) 7.0 [pH] Normal 5-9 [facility] Comment on above: Performed By: #### MELODY CORDOVA #### [facility] [address] [place] [address] Geraldo Kandy Protein Ql (U) 30 mg/dl Normal [facility] Comment on above: Performed By: #### MELODY CORDOVA #### [facility] [address] [place] [address] Geraldo Kandy SPEC GRAVITY 1.015 Normal 1.005-<=1. 025 [facility] Comment on above: Performed By: #### MELODY CORDOVA #### [facility] [address] [place] [address] Geraldo Kandy UR MICRO IND INDICATED Normal [facility] Comment on above: Performed By: #### MELODY CORDOVA #### [facility] [address] [place] [address] Geraldo Kandy Urobilinogen Qn (U) 0.2 {Eileen'U}/dL Normal [facility] Comment on above: Performed By: #### E MELODY SHAH #### [facility] [address] [place] [address] Geraldo Kandy LACTATE/LACTIC ACIDon 2019 Lactate [Moles/Vol] 1.1 mmol/L Normal 0.7-2.0 [facility] Comment on above: Performed By: #### H GB #### [facility] [address] [place] [address] Geraldo Kandy PROCALCITONINon 01-02-2020 PCT header 1 SEE BELOW Normal [facility] Comment on above: Result Comment: PCT <0.5ng/mL: Systemic infection (sepsis) is not likely, local bacterial infection possible, low risk for progression to severe systemic infection (severe sepsis) Performed By: #### P RL #### [facility] [address] [place] [address] Geraldo Kandy PCT header 2 SEE BELOW Normal [facility] Comment on above: Result Comment: PCT >/=0.5 and <2 ng/mL: Systemic infection (sepsis) is possible, moderate risk for progression to severe systemic infection (severe sepsis) Performed By: #### P RL #### [facility] [address] [place] [address] Geraldo Kandy PCT header 3 SEE BELOW Normal [facility] Comment on above: Result Comment: PCT >/=2.0 and <10 ng/mL: Systemic infection (sepsis) is likely, unless other causes are known, high risk for progession to severe systemic infection(severe sepsis) Performed By: #### P RL #### [facility] [address] [place] [address] Geraldo Kandy PCT header 4 SEE BELOW Normal [facility] Comment on above: Result Comment: PCT >/= 10 ng/mL: Important systemic inflammatory response almost exclusively due to severe bacterial sepsis or septic shock, high likelihood of severe sepsis or septic shock Performed By: #### P RL #### [facility] [address] [place], [place] [id number] Geraldo Kandy PROCALCITONIN 0.62 ng/mL Critically high 0.00-0.50 [facility] Comment on above: Performed By: #### P RL #### [facility] [address] [place] [address] Geraldo Gaitan PROF 14(COMP METB)on 020 Albumin [Mass/Vol] 3.6 g/dL Normal 3.5-5.0 [facility] Comment on above: Performed By: #### C MP #### [facility] [address] [place], [place] [address] Geraldo Kandy Albumin/Globulin [Mass ratio] 0.8 {ratio} Normal [facility] Comment on above: Performed By: #### C MP #### [facility] [address] [place] [address] Geraldo Kandy ALP [Catalytic activity/Vol] 95 U/L Normal 38-126 [facility] Comment on above: Performed By: #### C MP #### [facility] [address] [place] [address] Geraldo Kandy ALT [Catalytic activity/Vol] 32 U/L Normal 9-52 [facility] Comment on above: Performed By: #### C MP #### [facility] [address] [place], [place] [address] Geraldo Kandy Anion gap [Moles/Vol] 13.8 mmol/L Normal [facility] Comment on above: Performed By: #### C MP #### [facility] [address] [place] [address] Geraldo Kandy AST [Catalytic activity/Vol] 42 U/L Critically high 14-36 [facility] Comment on above: Performed By: #### C MP #### [facility] [address] [place], [place] [address] Geraldo Kandy Bilirubin [Mass/Vol] 0.5 mg/dL Normal 0.2-1.3 [facility] Comment on above: Performed By: #### C MP #### [facility] [address] [place], [place] [address] Geraldo Kandy Calcium [Mass/Vol] 9.4 mg/dL Normal 8.4-10.2 [facility] Comment on above: Performed By: #### C MP #### [facility] [address] [place] [address] Geraldo Kandy Chloride [Moles/Vol] 100 mmol/L Normal 98-107 [facility] Comment on above: Performed By: #### C MP #### [facility] [address] [place] [address] Geraldo Kandy CO2 [Moles/Vol] 24.6 mmol/L Normal 22.0-30.0 [facility] Comment on above: Performed By: #### C MP #### [facility] [address] [place] [address] Geraldo Kandy Creatinine [Mass/Vol] 1.36 mg/dL Critically high 0.52-1.04 [facility] Comment on above: Performed By: #### C MP #### [facility] [address] [place] [address] Geraldo Kandy EGFR-AF ANDORRAN 46 mL/min/1.73m2 Critically low >=60 [facility] Comment on above: Performed By: #### C MP #### [facility] [address] [place] [address] Geraldo Kandy EGFR-NON AF ANDORRAN 38 mL/min/1.73m2 Critically low >=60 [facility] Comment on above: Performed By: #### C MP #### [facility] [address] [place] [address] Geraldo Kandy Globulin (S) [Mass/Vol] 4.5 g/dL Normal [facility] Comment on above: Performed By: #### C MP #### [facility] [address] [place], [place] [id number] Geraldo Kandy Glucose [Mass/Vol] 120 mg/dL Critically high 74-106 [facility] Comment on above: Performed By: #### C MP #### [facility] [address] [place] [address] Geraldo Kandy Potassium [Moles/Vol] 3.4 mmol/L Normal 3.4-5.0 [facility] Comment on above: Performed By: #### C MP #### [facility] [address] [place] [address] Geraldo Kandy Protein [Mass/Vol] 8.1 g/dL Normal 6.1-8.2 [facility] Comment on above: Performed By: #### C MP #### [facility] [facility] [address] [place] [address] Geraldo Kandy Sodium [Moles/Vol] 135 mmol/L Critically low 137-145 [facility] Comment on above: Performed By: #### C MP #### [facility] [address] [place] [address] Geraldo Kandy Urea nitrogen [Mass/Vol] 22.0 mg/dL Critically high 7.0-17.0 [facility] Comment on above: Performed By: #### C MP #### [facility] [address] [place] [address] Geraldo Kandy Urea nitrogen/Creatinine [Mass ratio] 16.2 mg/mg Normal [facility] Comment on above: Performed By: #### C MP #### [facility] [address] [place] [address] Geraldo Kandy RESPIRATORY PANEL PLUSon Adenovirus Not detected Normal NOT DETECTED [facility] Comment on above: Performed By: #### R SPLUS #### [facility] [address] [place] [address] Geraldo Kandy B. Parapertusis Not detected Normal NOT DETECTED [facility] Comment on above: Performed By: #### R SPLUS #### [facility] [address] [place] [address] Geraldo Kandy B. Pertussis Not detected Normal NOT DETECTED The [facility] Comment on above: Performed By: #### R SPLUS #### [facility] [address] [place] [address] Geraldo Kandy Chlamydia Pneumoniae Not detected Normal NOT DETECTED [facility] Comment on above: Performed By: #### R SPLUS #### [facility] [address] [place] [address] Geraldo Kandy Coronavirus 229E Not detected Normal NOT DETECTED The [facility] Comment on above: Performed By: #### R SPLUS #### [facility] [address] [place] [address] Geraldo Kandy Coronavirus HKU1 Not detected Normal NOT DETECTED [facility] Comment on above: Performed By: #### R SPLUS #### [facility] [address] [place] [address] Geraldo Kandy Coronavirus NL63 Not detected Normal NOT DETECTED [facility] Comment on above: Performed By: #### R SPLUS #### [facility] [address] [place] [address] Geraldo Kandy Coronavirus OC43 Not detected Normal NOT DETECTED [facility] Comment on above: Performed By: #### R SPLUS #### [facility] [address] [place] [address] Geraldo Kandy Influenza A H1 2009 Not detected Normal NOT DETECTED [facility] Comment on above: Performed By: #### R SPLUS #### [facility] [address] [place] [address] Geraldo Kandy Influenza B Not detected Normal NOT DETECTED [facility] Comment on above: Performed By: #### R SPLUS #### [facility] [address] [place] [address] Geraldo Kandy Metapneumovirus Not detected Normal NOT DETECTED [facility] Comment on above: Performed By: #### R SPLUS #### [facility] [address] [place] [address] Geraldo Kandy Mycoplas. Pneumoniae Not detected Normal NOT DETECTED The [facility] Comment on above: Performed By: #### R SPLUS #### [facility] [address] [place] [address] Geraldo Kandy Parainfluenza 1 Not detected Normal NOT DETECTED The [facility] Comment on above: Performed By: #### R SPLUS #### [facility] [address] [place] [address] Geraldo Kandy Parainfluenza 2 Not detected Normal NOT DETECTED The [facility] Comment on above: Performed By: #### R SPLUS #### [facility] [address] [place] [address] Geraldo Kandy Parainfluenza 3 Not detected Normal NOT DETECTED The [facility] Comment on above: Performed By: #### R SPLUS #### [facility] [address] [place] [address] Geraldo Kandy Parainfluenza 4 Not detected Normal NOT DETECTED [facility] Comment on above: Performed By: #### R SPLUS #### [facility] [address] [place] [address] Geraldo Kandy Rhino/Enterovirus Not detected Normal NOT DETECTED [facility] Comment on above: Performed By: #### R SPLUS #### [facility] [address] [place] [address] Geraldo Kandy RP2 Header 1 RESPIRATORY PANEL: VIRUSES Normal [facility] Comment on above: Performed By: #### R SPLUS #### [facility] [address] [place] [address] Geraldo Kandy RP2 Header 2 RESPIRATORY PANEL: BACTERIA Normal [facility] Comment on above: Performed By: #### R SPLUS #### [facility] [address] [place] [address] Geraldo Kandy RP2 Header 4 EUA SEE BELOW Normal [facility] Comment on above: Result Comment: This test is not yet approved or cleared by the [place] FDA. When there are no FDA-approved or cleared tests available, and other criteria are met, FDA can make tests available under an emergency access mechanism called an Emergency Use Authorization (EUA). The EUA for this test is supported by the [place] of Health and Human Service?s (HHS?s) declaration [...] SPLUS #### [facility] [address] [place] [address] Geraldo Gaitan RSV Not detected Normal NOT DETECTED [facility] Comment on above: Performed By: #### R SPLUS #### [facility] [address] [place] [address] Geraldo Gaitan SARS-CoV-2 (COVID-19) RNA VIVIENNE+probe Ql (Unsp spec) Not detected Normal NOT DETECTED [facility] Comment on above: Performed By: #### R SPLUS #### [facility] [address] [place] [address] Geraldo Gaitan URINE MICROSCOPIC ONLYon BACTERIA MODERATE Normal NONE SEEN The [facility] Comment on above: Performed By: #### Luis SHAH UMJUSTYNARO #### [facility] [address] [place] [address] Geraldo Gaitan Bacteria identified Cx Nom (U) INDICATED Normal [facility] Comment on above: Performed By: #### Luis SHAH UMICRO #### [facility] [address] [place] [address] Geraldo Kandy CAST NONE SEEN Normal NONE SEEN [facility] Comment on above: Performed By: #### Luis SHAH UMICRO #### [facility] [address] [place] [address] Geraldo Gaitan Crystals LM Nom (Urine sed) NONE SEEN Normal NONE SEEN The [facility] Comment on above: Performed By: #### Luis SHAH UMICRO #### [facility] [address] [place] [address] Geraldo Gaitan Epithelial cells LM Ql (Urine sed) RARE Normal [facility] Comment on above: Performed By: #### Luis SHAH UMICRO #### [facility] [address] [place] [address] Geraldo Kandy MUCOUS NONE SEEN Normal NONE SEEN The [facility] Comment on above: Performed By: #### Luis SHAH UMICRO #### [facility] [address] [place] [address] Geraldo Kandy RBC 0-2 Normal 0-2 [facility] Comment on above: Performed By: #### Luis SHAH UMICRO #### [facility] [address], [place] [address] Geraldo Gaitan WBC 5-10 Normal NONE SEEN [facility] Comment on above: Performed By: #### MELODY CORDOVA #### [facility] [address], [place] [address] Geraldo Gaitan XR CHEST 1 Von 01-02-2020 [...] Normal [facility] Vital Signs Date Time Vital Sign Value Performing Clinician Facility 11-02-2024 09:31-0400 Body height 149.9 cm Shahriar Schoology DO Work Phone: [facility] 11-02-2024 09:31-0400 Body mass index (BMI) [Ratio] 21.61 kg/m2 Shahriar Schoology DO Work Phone: [facility] 11-02-2024 09:31-0400 Body weight 48.53 kg Shahriar Schoology DO Work Phone: [facility] 10-10-2024 11:06-0400 Body height 149.9 cm Shahriar Schoology DO Work Phone: [facility] 10-10-2024 11:06-0400 Body mass index (BMI) [Ratio] 21.61 kg/m2 Shahriar CloudBedsy DO Work Phone: [facility] 10-10-2024 11:06-0400 Body weight 48.53 kg Shahriar Almaviva Santé Work Phone: [facility] 10-10-2024 11:06-0400 Diastolic blood pressure 76 mm[Hg] Shahriar Revettoginny [facility] Work Phone: [facility] 10-10-2024 11:06-0400 Systolic blood pressure 132 mm[Hg] Shahriar Warren Work Phone: [facility] 10-07-2024 11:40-0400 Body temperature 98.7 [degF] Shari Mckeon MD Work Phone: [facility] 10-07-2024 11:40-0400 Diastolic blood pressure 66 mm[Hg] Shari Mckeon MD Work Phone: [facility] 10-07-2024 11:40-0400 Heart rate 84 /min Shari Mkceon MD Work Phone: [facility] 10-07-2024 11:40-0400 Respiratory rate 16 /min Shari Mckeon MD Work Phone: [facility] 10-07-2024 11:40-0400 SaO2% (BldA) [Mass fraction] 94 % Shari Mckeon MD Work Phone: [facility] 10-07-2024 11:40-0400 Systolic blood pressure 154 mm[Hg] Shari Mckeon MD Work Phone: [facility] 10-06-2024 10:40-0400 Inhaled oxygen flow rate 8 L/min Shari Mckeon MD Work Phone: [facility] 10-06-2024 04:42-0400 Body height 149.86 cm Shari Mckeon MD Work Phone: [facility] 10-06-2024 04:42-0400 Body weight 49 kg Shari Mckeon MD Work Phone: [facility] 09-26-2024 14:01-0400 Body height 149.9 cm China Ortiz SPECIAL PROCEDURE TECH Work Phone: [facility] 09-26-2024 14:01-0400 Body mass index (BMI) [Ratio] 21.97 kg/m2 China Kampfer SPECIAL PROCEDURE TECH Work Phone: [facility] 09-26-2024 14:01-0400 Body weight 49.35 kg China Ortiz SPECIAL PROCEDURE TECH Work Phone: [facility] 09-26-2024 14:01-0400 Diastolic blood pressure 70 mm[Hg] China Ortiz SPECIAL PROCEDURE TECH Work Phone: [facility] 09-26-2024 14:01-0400 Heart rate 62 /min China Ortiz SPECIAL PROCEDURE TECH Work Phone: [facility] 09-26-2024 14:01-0400 SaO2% (BldA) [Mass fraction] 95 % China Ortiz SPECIAL PROCEDURE TECH Work Phone: [facility] 09-26-2024 14:01-0400 Systolic blood pressure 122 mm[Hg] China Ortiz SPECIAL PROCEDURE TECH Work Phone: [facility] 05-09-2024 10:42-0500 Diastolic blood pressure 70 mm[Hg] China Ortiz SPECIAL PROCEDURE TECH Work Phone: [facility] 05-09-2024 10:42-0500 Systolic blood pressure 120 mm[Hg] China Ortiz SPECIAL PROCEDURE TECH Work Phone: [facility] 05-09-2024 10:34-0500 Body height 149.9 cm China Ortiz SPECIAL PROCEDURE TECH Work Phone: [facility] 05-09-2024 10:34-0500 Body mass index (BMI) [Ratio] 20.28 kg/m2 China Ortiz SPECIAL PROCEDURE TECH Work Phone: [facility] 05-09-2024 10:34-0500 Body temperature 99.3 [degF] China Ortiz SPECIAL PROCEDURE TECH Work Phone: [facility] 05-09-2024 10:34-0500 Body weight 45.54 kg China Ortiz SPECIAL PROCEDURE TECH Work Phone: [facility] 05-09-2024 10:34-0500 Heart rate 86 /min China Ortiz SPECIAL PROCEDURE TECH Work Phone: [facility] 05-09-2024 10:34-0500 SaO2% (BldA) [Mass fraction] 96 % China Ortiz SPECIAL PROCEDURE TECH Work Phone: [facility] 01-24-2024 13:04-0500 Body height 149.9 cm Roger Vasquez DPM Work Phone: [facility] 01-24-2024 13:04-0500 Body mass index (BMI) [Ratio] 20.2 kg/m2 Roger Pedro DPM Work Phone: [facility] 01-24-2024 13:04-0500 Body weight 45.36 kg Roger Vasquez DPM Work Phone: [facility] Healthcare Encounters Encounter Date Encounter Type Care Provider Facility Start: 11-23-2024 End: 11-23-2024 Clinisync Result Encounter Generic External Data Provider [facility] External [facility] Unsolicited Start: 11-23-2024 End: 11-23-2024 Clinisync Result Encounter Generic External Data Provider [facility] External Department Unsolicited Start: 11-15-2024 End: 11-15-2024 ambulatory [facility] Start: 11-02-2024 End: 11-02-2024 Postop follow up visit related to original px Shahriar Haroy DO Work Phone: [facility] Comment on above: Acute cholecystitis (Primary Dx) Start: 11-02-2024 End: 11-02-2024 ambulatory SHAHRIAR HAROY Not Available Start: 11-01-2024 End: 11-01-2024 ambulatory CHINA ORTIZ [facility] Start: 10-10-2024 End: 10-10-2024 Postop follow up visit related to original px Shahriar Haroy DO Work Phone: [facility] Comment on above: Acute cholecystitis (Primary Dx) Start: 10-10-2024 End: 10-10-2024 ambulatory SHAHRIAR HAROY Not Available Start: 10-07-2024 End: 10-07-2024 External Result Encounter Shahriar Warren DO Work Phone: [facility] Unsolicited Start: 10-07-2024 End: 10-07-2024 External Result Encounter Shahriar Warren DO Work Phone: [facility] Unsolicited Start: 10-06-2024 End: 10-07-2024 Evaluation and management of inpatient Chema Gupta DO -[facility] Work Phone: Start: 09-28-2024 End: 10-01-2024 Follow-up encounter China Ortiz NP Work Phone: [facility] Comment on above: Moderate aortic regu rgitation (Primary Dx); Mild aortic stenosis; SOB (shortness of breath) Start: 09-27-2024 End: 09-27-2024 ambulatory [facility] Start: 09-26-2024 End: 09-26-2024 Bamboo flowsheet China Ortiz SPECIAL PROCEDURE TECH Work Phone: [facility] Start: 09-26-2024 End: 09-26-2024 Bamboo flowsheet China Ortiz SPECIAL PROCEDURE TECH Work Phone: [facility] Start: 09-26-2024 End: 09-26-2024 Office outpatient visit 25 minutes China Ortiz SPECIAL PROCEDURE TECH Work Phone: [facility] Comment on above: Primary hypertension (Primary Dx); Stage 3b chronic kidney disease (CMS-HCC); Pure hypercholesterolemia ; Irregular heart beat; Shortness of breath; Chronic obstructive pulmonary disease, unspecified COPD type (HCC); Moderate aortic regurgitation Start: 09-26-2024 End: 09-26-2024 ambulatory CIHNA ORTIZ Not Available Start: 06-06-2024 End: 06-06-2024 Clinisync Result Encounter Generic External Data Provider [facility] External [facility] Unsolicited Start: 06-06-2024 End: 06-06-2024 Clinisync Result Encounter Generic External Data Provider [facility] External [facility] Unsolicited Start: 05-09-2024 End: 05-09-2024 Bamboo flowsheet China Ortiz SPECIAL PROCEDURE TECH Work Phone: [facility] Start: 05-09-2024 End: 05-09-2024 Bamboo flowsheet China Diana SPECIAL PROCEDURE TECH Work Phone: [facility] Start: 05-09-2024 End: 05-09-2024 Office outpatient visit 15 minutes China Diana SPECIAL PROCEDURE TECH Work Phone: [facility] Comment on [...] 02-20-2024 End: 02-20-2024 ambulatory Kei Espana MD Facility:[facility] Start: 02-07-2024 End: 02-07-2024 Refill Shari Mckeon MD Work Phone: [facility] Comment on above: Mild intermittent as thma, unspecified whether complicated (CMS/HCC) Start: 02-06-2024 End: 02-06-2024 ambulatory Kei Espana MD Facility:[facility] Start: 01-24-2024 End: 01-24-2024 Bamboo flowsheet Roger Vasquez DPM Work Phone: [facility] Start: 01-24-2024 End: 01-24-2024 Bamboo flowsheet Roger Vasquez DPM Work Phone: [facility] Start: 01-24-2024 End: 01-24-2024 Office outpatient visit 15 minutes Roger Vasquez DPM Work Phone: [facility] Comment on above: Dermatophytosis of n ail (Primary Dx); Dystrophic nail; Onychocryptosis; Pain of left great toe Start: 01-24-2024 End: 01-24-2024 ambulatory ROGER DEAN Not Available Start: 01-23-2024 End: 01-23-2024 ambulatory Kei Espana MD Facility:[facility] Start: 01-09-2024 End: 01-09-2024 ambulatory Kei Espana MD Facility:[facility] Start: 12-28-2023 End: 12-28-2023 ambulatory SHARI MCKEON [...] 12-12-2023 End: 12-12-2023 ambulatory Kei Espana MD Facility:[facility] Start: 12-09-2023 End: 12-09-2023 Refill Shari Mckeon MD Work Phone: [facility] Comment on above: Mild intermittent as thma, unspecified whether complicated ([facility]) Start: 11-28-2023 End: 11-28-2023 ambulatory Kei Espana MD [facility] Start: 11-17-2023 End: 11-17-2023 Refill Shari Mckeon MD Work Phone: [facility] Comment on above: Essential hypertensi on ([facility]) Start: 09-05-2023 End: 09-05-2023 ambulatory Kei Espana MD Facility:[facility] Start: 08-22-2023 End: 08-22-2023 ambulatory Kei Espana MD Facility:[facility] Start: 07-25-2023 End: 07-25-2023 ambulatory Kei Espana MD Facility:[facility] Start: 07-11-2023 End: 07-11-2023 ambulatory Kei Espana MD Facility:[facility] Start: 04-27-2023 Telephone encounter Ede Plascencia Norbert sierra DO Work Phone: [facility] 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 Start: 04-21-2023 Refill Tamara Aparicio SPECIAL PROCEDURE TECH Work Phone: [facility] Comment on above: Essential hypertensi on ([facility]) Start: 07-26-2022 End: 07-26-2022 ambulatory SHARI MCKEON Facility:[facility] Start: 06-29-2022 End: 06-30-2022 ambulatory SHARI MCKEON Facility:[facility] Start: 10-24-2020 End: 10-25-[address] SHARI MCKEON Facility:[facility] Start: 09-30-2020 End: 10-01-[address] SHARI MCKEON Facility:[facility] Start: 02-01-2020 End: 02-01-[address] CARLOS EDUARDO MENENDEZ Facility:[facility] Start: 01-30-2020 Encounter for prepro cedural laboratory examination DR CARLOS EDUARDO MENENDEZ [facility] Start: 01-26-2020 End: 01-27-[address] SHARI MCKEON Facility:[facility] Start: 01-26-2020 End: 01-27-2020 Encounter for preprocedural laboratory examination DR SHARI MCKEON Facility:[facility] Start: 01-02-2020 End: 01-02-[address] BÁRBARA BLUE Facility:[facility] Start: 05-25-2018 End: 05-26-2018 Patient encounter procedure DEFAULT PHYSICIAN Facility:[facility] Procedures Date Procedure Procedure Detail Performing Clinician Start: 11-23-2024 ALL PRO BNP Generic Ex ternal Data Provider Start: 10-07-2024 Bilirubin total Shahriar Warren DO Work Phone: Start: 10-07-2024 Complete blood count with white cell differential, automated Shahriar Warren DO Work Phone: Start: 10-06-2024 Laparoscopic cholecystectomy Shari Mckeon MD Work Phone: Start: 06-06-2024 Mri spinal canal tho racic w/o contrast matrl Generic External Data Provider Plan of Treatment Date Care Activity Detail Author Start: 11-12-2024 Influenza vaccination Influenza Vaccine (#1) [facility] Start: 10-07-2024 [facility] Start: 10-06-2024 Referral to general surgeon [facility] Start: 10-06-2024 Hospital admission [facility] Start: 10-01-2024 End: 10-01-2026 Echocardiogram 2D complete Echocardiogram 2D complete Echocardiography Routine Moderate aortic regurgitation Mild aortic stenosis SOB (shortness of breath) Expected: 10/01/2024 (Approximate), Expires: 10/01/2026 [facility] Work Phone: Comment on above: Expected: 10/01/2024 (Approximate), Expi res: 10/01/2026 Start: 09-26-2024 End: 09-26-2025 CBC W Auto Differential panel - Blood CBC and differential Lab Routine Shortness of breath Expected: 09/26/2024 (Approximate), Expires: 09/26/2025 [facility] Comment on above: Expected: 09/26/2024 (Approximate), Expi res: 09/26/2025 Start: 09-26-2024 End: 09-26-2025 Comprehensive metabolic 2000 panel - Serum or Plasma Comprehensive metabolic panel Lab Routine Stage 3b chronic kidney disease (CMS-HCC) Shortness of breath Expected: 09/26/2024 (Approximate), Expires: 09/26/2025 [facility] Comment on above: Expected: 09/26/2024 (Approximate), Expi res: 09/26/2025 Start: 09-26-2024 End: 09-26-2025 ECG 12 lead ECG 12 lead ECG Routine Primary hypertension Irregular heart beat Shortness of breath Expected: 09/26/2024 (Approximate), Expires: 09/26/2025 [facility] Work Phone: Comment on above: Expected: 09/26/2024 (Approximate), Expi res: 09/26/2025 Start: 09-26-2024 End: 09-26-2025 Lipid 1996 panel - Serum or Plasma Lipid panel Lab Routine Primary hypertension Pure hypercholesterolemia Shortness of breath Expected: 09/26/2024 (Approximate), Expires: 09/26/2025 [facility] Comment on above: Expected: 09/26/2024 (Approximate), Expi res: 09/26/2025 Start: 09-26-2024 End: 09-26-2024 Patient encounter procedure 09/26/2024 2:00 PM EDT Office Visit [facility] [address] [place] [id number] China Ortiz NP [address] [place] [address] Arrived [facility] Comment on above: Arrived Start: 06-16-2024 Medicare Annual Wellness (AWV) Medicare Annual Wellness (AWV) [facility] Start: 05-09-2024 End: 05-09-2024 Patient encounter procedure 05/09/2024 10:30 AM EST Office Visit [facility] [address] [place] [phone] China Ortiz, SPECIAL PROCEDURE TECH [address] [place] [address] Arrived [facility] Comment on above: Arrived Start: 12-28-2023 End: 12-28-2023 Professional / ancillary services management 12/28/2023 9:00 AM EDT Ancillary Procedure [facility] [address] [place] [phone] [facility] Start: 12-13-2023 End: 02-11-2025 MG Breast - bilateral Screening Bilateral screening mammogram Imaging Routine Encounter for screening mammogram for malignant neoplasm of breast Expected: 12/13/2023, Expires: 02/11/2025 [facility] Work Phone: Comment on above: Expected: 12/13/2023, Expires: Start: 11-13-2023 Influenza vaccination Influenza Vaccine (#1) [facility] Start: 08-02-2023 End: 08-02-2023 Patient encounter procedure 08/02/2023 9:00 AM EDT Office Visit [facility] [address] [place] [id number] Ede Ramos DO [address] [facility] [address] [place] [address] [facility] Start: 05-06-2023 Medicare Annual Wellness (AWV) Medicare Annual Wellness (AWV) [facility] Patient Education Know your Meds [facility] Work Phone: Patient referral [facility] Work Phone: Immunizations Immunization Date Immunization Notes Care Provider Fa cility 01-19-2024 RSV, recombinant, protein subunit RSVpreF, adjuvant reconstitu, 120mcg/0.5mL, PF (Arexvy) China Ortiz SPECIAL PROCEDURE TECH Work Phone: [facility] 01-05-2024 influenza, high dose seasonal, preservative-free China Ortiz SPECIAL PROCEDURE TECH Work Phone: [facility] 01-05-2024 influenza virus vaccine, unspecified formulation China Ortiz SPECIAL PROCEDURE TECH Work Phone: [facility] 12-23-2022 Influenza, High-dose Seasonal, Quadrivalent, Preservative Free Tamara Hackenburg SPECIAL PROCEDURE TECH Work Phone: [facility] 12-23-2022 SARS-COV-2 (COVID-19 ) vaccine, mRNA, spike protein, LNP, PF, 50 mcg/0.5 mL Tamara Hackenburg SPECIAL PROCEDURE TECH Work Phone: [facility] 12-23-2022 influenza virus vaccine, unspecified formulation Shari Mckeon MD Work Phone: [facility] 12-01-2021 Influenza, Seasonal, Quadrivalent, Adjuvanted Tamara Hackenburg SPECIAL PROCEDURE TECH Work Phone: [facility] 12-01-2021 Seasonal, trivalent, recombinant, injectable influenza vaccine, preservative free Tamara Hackenburg SPECIAL PROCEDURE TECH Work Phone: [facility] 12-16-2020 Influenza, High-dose Seasonal, Quadrivalent, Preservative Free Tamara Hackenburg SPECIAL PROCEDURE TECH Work Phone: [facility] 05-14-2020 COVID-19 mRNA-1273 (Moderna) Shari Mckeon MD Work Phone: [facility] 04-16-2020 COVID-19 mRNA-1273 (Moderna) Shari Mckeon MD Work Phone: [facility] 02-14-2020 zoster vaccine recombinant Tamara Hackenburg SPECIAL PROCEDURE TECH Work Phone: [facility] 12-07-2019 influenza, seasonal, injectable Tamara Hackenburg SPECIAL PROCEDURE TECH Work Phone: [facility] 11-13-2019 influenza, injectabl e, quadrivalent, preservative free Tamara Hackenburg SPECIAL PROCEDURE TECH Work Phone: [facility] 11-13-2019 zoster vaccine recombinant Tamara Hackenburg SPECIAL PROCEDURE TECH Work Phone: [facility] 11-12-2019 zoster vaccine recombinant Tamara Hackenburg SPECIAL PROCEDURE TECH Work Phone: [facility] 11-29-2018 Seasonal trivalent influenza vaccine, adjuvanted, preservative free Tamara Hackenburg SPECIAL PROCEDURE TECH Work Phone: [facility] 11-30-2017 influenza, high dose seasonal, preservative-free Tamara Hackenburg SPECIAL PROCEDURE TECH Work Phone: [facility] 11-24-2017 Seasonal trivalent influenza vaccine, adjuvanted, preservative free Tamara Hackenburg SPECIAL PROCEDURE TECH Work Phone: [facility] 11-18-2016 influenza, high dose seasonal, preservative-free Tamara Hackenburg SPECIAL PROCEDURE TECH Work Phone: [facility] Work Phone: 11-18-2016 pneumococcal conjuga te vaccine, 13 valent Tamara Hackenburg SPECIAL PROCEDURE TECH Work Phone: [facility] 11-18-2016 Seasonal trivalent influenza vaccine, adjuvanted, preservative free Tamara Hackenburg SPECIAL PROCEDURE TECH Work Phone: [facility] 11-18-2016 tetanus toxoid, redu greg diphtheria toxoid, and acellular pertussis vaccine, adsorbed Tamara Hackenburg SPECIAL PROCEDURE TECH Work Phone: [facility] 11-12-2016 pneumococcal polysaccharide vaccine, 23 valent Tamara Hackenburg SPECIAL PROCEDURE TECH Work Phone: [facility] 12-11-2015 influenza, high dose seasonal, preservative-free Tamara Hackenburg SPECIAL PROCEDURE TECH Work Phone: [facility] 12-30-2014 influenza virus vaccine, whole virus Tamara Hackenburg SPECIAL PROCEDURE TECH Work Phone: [facility] 12-30-2014 influenza, injectabl e, quadrivalent, preservative free Tamara Hackenburg SPECIAL PROCEDURE TECH Work Phone: [facility] 05-10-2014 pneumococcal conjuga te vaccine, 13 valent Tamara Hackenburg SPECIAL PROCEDURE TECH Work Phone: [facility] 12-13-2013 influenza virus vaccine, whole virus Tamara Hackenburg SPECIAL PROCEDURE TECH Work Phone: [facility] 01-12-2013 pneumococcal Conjuga te, unspecified formulation Tamara Hackenburg SPECIAL PROCEDURE TECH Work Phone: [facility] 01-12-2013 seasonal influenza, intradermal, preservative free Tamara Hackenburg SPECIAL PROCEDURE TECH Work Phone: [facility] 12-27-2012 pneumococcal polysaccharide vaccine, 23 valent Tamara Hackenburg SPECIAL PROCEDURE TECH Work Phone: [facility] Payers Date Payer Category Payer Medicare [id number] 2024 Self-pay 2023 Unknown 2017 Medicare [employer]M MEDICARE ADVANTAGE [employer] MEDICARE ADVANTAGE [id number] 2017-Present [address] [place] [address] [id number] 2017 Medicare (Managed Care) CRISTOBAL KAPLANRE ADVANTAGE [id number] 1959 Unknown [id number] 1944 Unknown [id number] 2.16840.1.018927.3.579. 2.647 1944 Unknown [id number] 2.16840.1.802507.3.579. 2.593 1944 Unknown [id number] 2.840.1.085021.3.579. 2.593 1944 Unknown [id number] 2.840.1.323811.3.579. 2.593 1944 Unknown [id number] 2.16840.1.117957.3.579. 2.593 1944 Unknown [id number] 2.16840.1.691297.3.579. 2.593 1944 Unknown [id number] 2.16840.1.958584.3.579. 2.718 1944 Unknown [id number] 2.16840.1.080785.3.579. 2.718 1944 Unknown [id number] 2.16.840.1.576300.3.579. 2.196 1944 Unknown [id number] 2.16.840.1.944546.3.579. 2.196 1944 Unknown [id number] 2.16.840.1.024009.3.579. 2.196 1944 Unknown [id number] 2.16.840.1.878790.3.579. 2.196 1944 Unknown [id number] 2.16.840.1.443444.3.579. 2. 1944 Unknown [id number] 2.16.840.1.743198.3.579. 2. 1944 Unknown [id number] 2.16.840.1.265193.3.579. 2. 1944 Unknown [id number] 2.16840.1.411678.3.579. 2. 1944 Unknown [id number] 2.16.840.1.767614.3.579. 2. 1944 Unknown [id number] 2.16.840.1.961481.3.579. 2. 1944 Unknown [id number] 2.16.840.1.079188.3.579. 2.1286 1944 Unknown [id number] 2.16840.1.172717.3.579. 2.1286 1944 Unknown [id number] 2.16.840.1.989461.3.579. 2.1259 1944 Unknown [id number] 2.16.840.1.587683.3.579. 2.1259 1944 Unknown [id number] 2.16.840.1.412757.3.579. 2.1259 1944 Unknown [id number] 2.16.840.1.876153.3.579. 2.1259 1944 Unknown [id number] 2.16.840.1.171395.3.579. 2.1259 1944 Unknown [id number] 2.16.840.1.527728.3.579. 2.1259 Unknown [id number] 2.16.840.1.618637.3.579. 2.531 Social History Date Type Detail Facility Start: 09-17-2022 End: 10-06-2024 Tobacco smoking status NHIS Never smoked tobacco [facility] Start: 09-17-2022 Tobacco use and exposure Smokeless tobacco non-user [facility] Start: 04-18-2023 End: 11-02-2024 Alcohol intake Current drinker of alcohol (finding) [facility] Start: 04-18-2023 End: 06-17-2023 Alcohol intake [facility] Start: 04-18-2023 End: 06-17-2023 Tobacco use panel [facility] Start: 01-06-2023 Alcohol Comment Caffeine intak [...] occasion? Never [facility] Sex Female (finding) [facility] Start: 1945 Sex Assigned At Female F [facility] Goals Date Patient Goal Desired Activity /State Functional Status Date Assessment Result Facility 10-07-2024 Functional status Patient at Baseline [facility] Work Phone: Mental Status Date Assessment Result Facility 10-07-2024 Cognitive function Cognitive Sta tus Patient at Baseline [facility] Work Phone: Clinical Notes 02-01-2020 to 11-15-2024 Shahriar Warren, - 11/02/2024 9:30 AM EDTPjanett Warren, DO - 10/10/2024 11:15 AM EDT Note Date & Type Note Facility 11-15-2024 Note New patient here to establish care. Self ref for MALDONADO with stairs and murmur per daughter. Had echo at [facility] a few weeks ago, and EKG in September 2024. Had recent cholecystectomy. Had lipid panel in September and PCP started her on statin. She declined to start. [facility] 11-15-2024 Note Cardiovascular Medic [facility] SUBJECTIVE Chief Complaint Patient presents with New Patient Heart Murmur HPI Radha Barraza is a 79 y.o. female here as a new patient. Her daughter Evreton is also present. PMHx: COPD, HTN, HLD, [...] is moderate pulmonary (more content not included)... [facility] 11-02-2024 History of Present illness Narrative [...] follow-ups on file. documented in this encounter [facility] 10-10-2024 History of Present illness Narrative Images [...] PCL 10/09/2024 15:18 Attached To: GENERAL PATHOLOGY [[id number]] Orders Only on 10/09/24 with Shahriar Warren DO Source Information [facility] Document History ASSESSMENT AND PLAN: Assessment/Plan Diagnoses and all orders for this visit: Acute cholecystitis Status post laparoscopic cholecystectomy secondary to acute gangrenous cholecystitis. I removed the SAUD drain. We discussed continued activity restrictions, incision care, drain site care, pathology report. I discussed with her and her [id number]. Not unexpected to have some soreness near the umbilical incision that was the extraction site from the gallbladder. I will see her again in 3 weeks No follow-ups on file. documented in this encounter [facility] 10-07-2024 Progress note Note Date/Time October 07, 2024 11:33am [facility] [address] [place] [address] General Surgery Progress Note Signed Patient: Radha Barraza MR#: [id number] 803 : 1945 Acct:[id number] Age/Sex: 79 / F Adm Date: 5 Loc: 4N Room: 0B7863-8 Type: ADM IN Attending Dr: Chema Gupta [...] Mg/200 Unit Tablet) 1 tab PO BID.WITH.[facility]ALS [facility] Stop: 10/06/25 16:59 Last Admin: 10/07/24 09:15 Dose: 1 tab Famotidine (Famotidine/Pf 20 Mg/2 Ml Vial) 20 mg IV-PUSH Q12HR [facility] Stop: 10/06/25 08:59 Last Admin: 10/07/24 09:15 Dose: 20 mg Hydralazine HCl (Hydralazine 20 Mg/Ml Vial) 10 mg IV-PUSH Q4H PRN PRN Reason: if SBP > 185 Stop: 10/06/25 04:36 Hydrochlorothiazide (Hydrochlorothiazide 12.5 Mg Tablet) 12.5 mg PO DAILY [facility] Stop: 10/07/25 08:59 Last Admin: 10/07/24 09:15 Dose: 12.5 mg Hydromorphone HCl (Hydromorphone 1 Mg/Ml Syringe) 0.5 mg IV-PUSH Q3H PRN PRN Reason: Pain Lactated Ringer's (Lactated Ringers) 1,000 mls @ 75 mls/hr IV .[id number] [facility] Stop: 10/06/25 04:44 Last Admin: 10/07/24 05:37 Dose: 75 mls/hr Ertapenem 0.5 gm/ Sodium (Chloride) 100 mls @ 200 mls/hr IV Q24H [facility] Stop: 10/07/25 01:59 Last Admin: 10/07/24 03:07 Dose: 200 mls/hr Lidocaine HCl (Lidocaine 1% 50 Ml Vial) 0.1 ml INTRADERMA PREOP PRN PRN Reason: Venipuncture x 1 Dose Losartan Potassium (Losartan 50 Mg Tablet) 100 mg PO DAILY [facility] Stop: 10/07/25 08:59 Last Admin: 10/07/24 [...] 10 Ml Vial.Pf) 10 ml INJECTION Q12HR [facility] Stop: 10/06/25 08:59 Last Admin: 10/07/24 09:15 Dose: 10 ml Sodium Chloride (Sodium Chloride 0.9 % 10 Ml Syringe) 0 ml IV-PUSH PRN PRN PRN Reason: Flush Stop: 10/06/25 08:17 Last Admin: 10/07/24 09:15 Dose: 10 ml Trazodone HCl (Trazodone 50 Mg Tablet) 50 mg PO QPM [facility] Stop: 10/07/25 20:59 Exam Physical Exam [...] % (Auto) 84.8, Lymph % (Auto) 9.4, Becker % (Auto) 4.2, Eos % (Auto) 1.3, Baso % (Auto) 0.3, Nucleat RBC Rel Count 0.0, Neut # (Auto) 7.2, Lymph # (Auto) 0.8 L, Becker # (Auto) 0.4, Eos # (Auto) 0.1, [...] % (Auto) 89.1, Lymph % (Auto) 6.6, Becker % (Auto) 3.9, Eos % (Auto) 0.2, Baso % (Auto) 0.2, Nucleat RBC Rel Count 0.0, Neut # (Auto) 9.9 H, Lymph # (Auto) 0.7 L, Becker # (Auto) 0.4, Eos # (Auto) 0.0, [...] signed by DO Shahriar Warren> 10/07/24 1133 [facility] Work Phone: 1(767) 288-939607-27-2025 [place] [address] General Surgery Progress Note Signed Patient: Radha Barraza MR#: [id number] 803 : 1945 Acct:[id number] Age/Sex: 79 / F Adm Date: 5 Loc: Room: [address] [place] [address] Type: ADM IN Attending Dr: Chema Gupta [...] Mg/200 Unit Tablet) 1 tab PO BID.WITH.MEALS [facility] Stop: 10/06/25 16:59 Last Admin: 10/07/24 09:15 Dose: 1 tab Famotidine (Famotidine/Pf 20 Mg/2 Ml Vial) 20 mg IV-PUSH Q12HR MARCIA Stop: 10/06/25 08:59 Last Admin: 10/07/24 09:15 Dose: 20 mg Hydralazine HCl (Hydralazine 20 Mg/Ml Vial) 10 mg IV-PUSH Q4H PRN PRN Reason: if SBP > 185 Stop: 10/06/25 04:36 Hydrochlorothiazide (Hydrochlorothiazide 12.5 Mg Tablet) 12.5 mg PO DAILY [facility] Stop: 10/07/25 08:59 Last Admin: 10/07/24 09:15 Dose: 12.5 mg Hydromorphone HCl (Hydromorphone 1 Mg/Ml Syringe) 0.5 mg IV-PUSH Q3H PRN PRN Reason: Pain Lactated Ringer's (Lactated Ringers) 1,000 mls @ 75 mls/hr IV .[id number] [facility] Stop: 10/06/25 04:44 Last Admin: 10/07/24 05:37 Dose: 75 mls/hr Ertapenem 0.5 gm/ Sodium (Chloride) 100 mls @ 200 mls/hr IV Q24H [facility] Stop: 10/07/25 01:59 Last Admin: 10/07/24 03:07 Dose: 200 mls/hr Lidocaine HCl (Lidocaine 1% 50 Ml Vial) 0.1 ml INTRADERMA PREOP PRN PRN Reason: Venipuncture x 1 Dose Losartan Potassium (Losartan 50 Mg Tablet) 100 mg PO DAILY [facility] Stop: 10/07/25 08:59 Last Admin: 10/07/24 [...] 10 Ml Vial.Pf) 10 ml INJECTION Q12HR [facility] Stop: 10/06/25 08:59 Last Admin: 10/07/24 09:15 Dose: 10 ml Sodium Chloride (Sodium Chloride 0.9 % 10 Ml Syringe) 0 ml IV-PUSH PRN PRN PRN Reason: Flush Stop: 10/06/25 08:17 Last Admin: 10/07/24 09:15 Dose: 10 ml Trazodone HCl (Trazodone 50 Mg Tablet) 50 mg PO QPM [facility] Stop: 10/07/25 20:59 Exam Physical Exam [...] % (Auto) 84.8, Lymph % (Auto) 9.4, Becker % (Auto) 4.2, Eos % (Auto) 1.3, Baso % (Auto) 0.3, Nucleat RBC Rel Count 0.0, Neut # (Auto) 7.2, Lymph # (Auto) 0.8 L, Becker # (Auto) 0.4, Eos # (Auto) 0.1, [...] % (Auto) 89.1, Lymph % (Auto) 6.6, Becker % (Auto) 3.9, Eos % (Auto) 0.2, Baso % (Auto) 0.2, Nucleat RBC Rel Count 0.0, Neut # (Auto) 9.9 H, Lymph # (Auto) 0.7 L, Becker # (Auto) 0.4, Eos # (Auto) 0.0, [...] DO 10/07/24 1131 Signed By: 10/07/24 1133 [facility]07-26-2025 Progress note Author Chema Gupta [facility] Note Date/Time October 06, 2024 3:14 pm [facility] [address] [place] [address] Hospitalist Progress Note Signed Patient: Radha Barraza MR#: [id number] 803 : 1945 Acct:[id number] Age/Sex: 79 / F Adm Date: 5 Loc: Room: [address] [place] [address] Type: ADM IN Attending Dr: Chema Gupta DO Copies to: ~ Date of Service: 10/06/2024 Subjective Subjective Narrative: Patient is an 79-year-old female with medical history as listed below who presented to [facility] due to abdominal pain. Patient was seen earlier yesterday morning for back pain and was treated with Vass and reports that helped with her pain however she kept having abdominal pain for which she returnto ER later yesterday and was evaluated. Reported right upper quadrant pain, worsening with inspiration, denies any nausea or vomiting or diarrhea. Denies fevers or chills at home. 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 One of them is a retired ER physician from [facility], and one of them is another physician from [facility]. The patient has just finished working with [...] Lactated Ringers IV 10/06/25 04:44 75 mls/hr .[id number] MARCIA Administration Ertapenem 0.5 gm/ Sodium 100 [...] 50 Mg Tablet PO 10/07/25 20:59 QPM MARCIA A&P - Hospitalist Assessment/Plan (1) Heart murmur: [...] <Electronically signed by Chema Gupta DO> 10/06/24 1007 [facility] Work Phone: 1(118) 244-116507-26-[address] [address] Hospitalist Progress Note Signed Patient: Radha Barraza MR#: [id number] 803 : 1945 Acct:[id number] Age/Sex: 79 / F Adm Date: 5 Loc: 4N Room: [id number] Type: ADM IN Attending Dr: Chema Gupta DO Copies to: ~ Date of Service: 10/06/2024 Subjective Subjective Narrative: Patient is an 79-year-old female with medical history as listed below who presented to [facility] due to abdominal pain. Patient was seen earlier yesterday morning for back pain and was treated with Vass and reports that helped with her pain however she kept having abdominal pain for which she returnto ER later yesterday and was evaluated. Reported right upper quadrant pain, worsening with inspiration, denies any nausea or vomiting or diarrhea. Denies fevers or chills at home. 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 One of them is a retired ER physician from [facility], and one of them is another physician from [facility]. The patient has just finished working with physical therapy and Occupational Therapy. She is just finished eating a light lunch. She is wide-awake. She isjovial. She let her family members help us get her lying in bed after her meal and boost her up in bed. [facility] Her family members reminded her [...] Lactated Ringers IV 10/06/25 04:44 75 mls/hr .[id number] MARCIA Administration Ertapenem 0.5 gm/ Sodium 100 [...] 50 Mg Tablet PO 10/07/25 20:59 QPM [facility] A&P - Hospitalist Assessment/Plan (1) Heart [...] Chema Gupta DO 1509 Signed By: 10/06/[address] [place], [place] 1142507-26-2025 Consult note Author Shahriar Warren [facility] Note Date/Time October 06, 2024 8:11 am [facility] [address] [place] [address] General Surgery Consult Note Signed Patient: Radha Barraza MR#: [id number] 803 : 1945 Acct:[id number] Age/Sex: 79 / F Adm Date: 5 Loc: Room: [address] [place] [address] Type: ADM IN Attending Dr: Chema Gupta DO Copies to: MD Chema Dumont DO Paul C Laffay, DO~ History of Present Illness Date of consult: 10/06/2024 Requesting/Attending Provider: Chema Gupta DO History of present illness: Patient went to [facility] emergency department on night with severe backpain. [...] negative unless noted below or in HPI [facility] Medical History Heart murmur Osteoarthritis Surgical History [...] Mg/2 Ml Vial) 20 mg IV-PUSH Q12HR [facility] Stop: 10/06/25 08:59 Hydralazine HCl (Hydralazine 20 Mg/Ml Vial) 10 mg IV-PUSH Q4H PRN PRN Reason: if SBP > 185 Stop: 10/06/25 04:36 Lactated Ringer's (Lactated Ringers) 1,000 mls @ 75 mls/hr IV .[id number] [facility] Stop: 10/06/25 04:44 Last Admin: 10/06/24 05:03 Dose: 75 mls/hr Ertapenem 0.5 gm/ Sodium (Chloride) 100 mls @ 200 mls/hr IV Q24H [facility] Stop: 10/07/25 01:59 Morphine Sulfate (Morphine [...] 10 Ml Vial.Pf) 10 ml INJECTION Q12HR [facility] Stop: 10/06/25 08:59 Exam Physical Exam [...] % (Auto) 89.1, Lymph % (Auto) 6.6, Becker % (Auto) 3.9, Eos % (Auto) 0.2, Baso % (Auto) 0.2, Nucleat RBC Rel Count 0.0, Neut # (Auto) 9.9 H, Lymph # (Auto) 0.7 L, Becker # (Auto) 0.4, Eos # (Auto) 0.0, [...] signed by DO Shahriar Warren> 10/06/24 0811 [facility] Work Phone: 1(190) 132-960207-26-2025 [place] [address] General Surgery Consult Note Signed Patient: Radha Barraza MR#: [id number] 803 : 1945 Acct:[id number] Age/Sex: 79 / F Adm Date: Loc: Room: [address] [place] [address] Type: ADM IN Attending Dr: Chema Gupta DO Copies to: MD Chema Dumont DO Paul C Laffay, DO~ History of Present Illness Date of consult: 10/06/2024 Requesting/Attending Provider: Chema Gupta DO History of present illness: Patient went to [facility] emergency department on night with severe backpain. [...] negative unless noted below or in HPI [facility] Medical History Heart murmur Osteoarthritis Surgical History [...] Ringers) 1,000 mls @ 75 mls/hr IV .[id number] [facility] Stop: 10/06/25 04:44 Last Admin: 10/06/24 05:03 Dose: 75 mls/hr Ertapenem 0.5 gm/ Sodium (Chloride) 100 mls @ 200 mls/hr IV Q24H [facility] Stop: 10/07/25 01:59 Morphine Sulfate (Morphine [...] 10/06/24 05:56: ALT Cancelled, Alkaline Phosphatase 93 07/26/25 05:56: AST Cancelled, ALT 119 H 10/06/24 [...] % (Auto) 89.1, Lymph % (Auto) 6.6, Becker % (Auto) 3.9, Eos % (Auto) 0.2, Baso % (Auto) 0.2, Nucleat RBC Rel Count 0.0, Neut # (Auto) 9.9 H, Lymph # (Auto) 0.7 L, Becker # (Auto) 0.4, Eos # (Auto) 0.0, [...] DO 10/06/24 0803 Signed By: 10/06/24 0811 [facility]07-26-2025 History and physical note Author Kimberly Sanchez [facility] Note Date/Time October 06, 2024 5:53 am [facility] [address] [place] [address] Hospitalist H&P Signed Patient: Radha Barraza MR#: [id number] 803 : 1945 Acct:[id number] Age/Sex: 79 / F Adm Date: 5 Loc: Room: [address] [place] [address] Type: ADM IN Attending Dr: Kimberly Sanchez MD Copies to: MD Kimberly Dumont MD~ HPI DATE OF EXAMINATION: 10/06/24 CHIEF COMPLAINT: Abd pain HISTORY OF PRESENT ILLNESS: Patient is an 79-year-old female with medical history as listed below who presented to [facility] due to abdominal pain. Patient was seen earlier yesterday morning for back pain and was treated with Vass and reports that helped with her pain however she kept having abdominal pain for which she returnto ER later yesterday and was evaluated. Reported right upper quadrant pain, worsening with inspiration, denies any nausea or vomiting or diarrhea. Denies fevers or chills at home. CT scan at [facility] showed distended gallbladder with mild gallbladder wall [...] negative unless noted below or in HPI [facility] Medical History Heart murmur Osteoarthritis Surgical History [...] here 100.3F, had leukocytosis around 12 at [facility] -CT AP done and reviewed, showed distended [...] signed by Kimberly Sanchez MD> 10/06/24 0553 [facility] Work Phone: 1(491) 859-271007-26-2025 Evaluation note* Diagnosis Onset Date Resolution Status Admit Date Acute cholecystitis acute October 06, 2024 4:05am Acute gangrenous cholecystitis acute October 06, 2024 4:05am Heart murmur acute October 06, 2 025 4:05am Intractable right upper quad rant abdominal pain acute October 06, 2024 4:05am Leukocytosis acute October 06 2 025 4:05am [facility] Work Phone: 1(185) 526-249807-26-2025 [place] [id number] Hospitalist H&P Signed Patient: Radha Barraza MR#: [id number] 803 : 1945 Acct:[id number] Age/Sex: 79 / F Adm Date: 5 Loc: Room: [address] [place] [address] Type: ADM IN Attending Dr: Kimberly Sanchez MD Copies to: MD Kimberly Dumont MD~ HPI DATE OF EXAMINATION: 10/06/24 CHIEF COMPLAINT: Abd pain HISTORY OF PRESENT ILLNESS: Patient is an 79-year-old female with medical history as listed below who presented to [facility] due to abdominal pain. Patient was seen earlier yesterday morning for back pain and was treated with Vass and reports that helped with her pain however she kept having abdominal pain for which she returnto ER later yesterday and was evaluated. Reported right upper quadrant pain, worsening with inspiration, denies any nausea or vomiting or diarrhea. Denies fevers or chills at home. CT scan at [facility] showed distended gallbladder with mild gallbladder wall [...] negative unless noted below or in HPI [facility] Medical History Heart murmur Osteoarthritis Surgical History [...] here 100.3F, had leukocytosis around 12 at [facility] -CT AP done and reviewed, showed distended [...] 10/06/24 04 38 Signed By: 10/06/24 0553 [facility]07-21-2025 Telephone encounter Note* Telephone Encounter - Shari Olmos MA - 10/01/2024 12:45 PM EDT [facility] faxing over the EKG. [facility] [id number] Telephone encounter Note* Telephone Encounter - Shari [...] 9:07 AM EDT To: China Ortiz NP [facility] HospitalHndzufierv28-05-4519 Miscellaneous Notes* Telephone Encounter - Shari Olmos [...] symptoms as well ----- Message ----- From: [facility] Results In Sent: 09/27/2024 9:07 AM [...] symptoms as well ----- Message ----- From: [facility] Results In Sent: 09/27/2024 9:07 AM [...] symptoms as well ----- Message ----- From: [employer] [facility] Results In Sent: 09/27/2024 9:07 AM EDT To: China Ortiz NP documented in this encounterSaint [facility] HospitalGwlcbcfpxv16-78-2805 Telephone encounter Note* Telephone Encounter - Shari [...] as well ----- Message ----- From: [facility] Lab Results In Sent: 09/27/2024 9:07 AM EDT To: China Ortiz NP [facility] HospitalShdrgdmbod44-01-0698 Telephone encounter Note* Telephone Encounter - Shari Olmos MA - 10/01/2024 12:37 PM EDT She did get the EKG done the next morning. ( Ill call them to get report)And she is agreeable to the echo if you place the order thank you! [place] [id number] Telephone encounter Note* Telephone Encounter - Shari [...] 9:07 AM EDT To: China Ortiz NP [facility] [id number] History of Present illness Narrative* China Ortiz NP - 09/26/2024 2:00 PM EDTAssociated Problem(s): Stage 3b chronic kidney disease ([facility]-HCC) Orders: Comprehensive metabolic panel; Future -check renal [...] is not under the care of a ocean transportation intermediary and does notrecall undergoing an echocardiogram last [...] bronchitis. Refuses wellness today documented in this encounterSaint [facility] HospitalRlbzesnugy10-34-9439 History of Present illness Narrative* China Ortiz [...] PRN atorvastatin (LIPITOR) 20 mg, Oral, Daily bpiuijgbbk-ibhjjbloelwop-oxhszlpu 50-325-40 MG tablet 1 tablet, Every 4 [...] nebulizer treatments as prescribed. documented in this encounterSaint [facility]'s Saint [facility] HospitalZwasacwghk21-89-6103 Telephone encounter Note* Telephone Encounter - Yasmin Suresh - 04/23/2024 3:36 PM EST Pt needs a confirmation of 3 mos supply sent to [employer] Fluticasone-salmeterol 250-50 mcg/act aerosol powder [facility] [id number] Miscellaneous Notes* Telephone Encounter - Yasmin Suresh - 04/23/2024 3:36 PM EST Pt needs a confirmation of 3 mos supply sent to [employer] Fluticasone-salmeterol 250-50 mcg/act aerosol powder documented in this [facility]11-12-2024 History of Present illness Narrative* Roger [...] once daily, Disp: 90 tablet, Rfl: 0 hbtbzeznos-qhznqrolsjcxp-zhffzyog 50-325-40 MG tablet, Take 1 tablet by [...] understanding. Roger Vasquez DPM documented in this [facility]11-12-2024 Instructions* Patient Instructions* Roger Vasquez DPM - 01/24/2024 1:00 PM EST As noted documented in this [facility]10-10-2024 Telephone encounter Note* Telephone Encounter - Zeb Orellana MD - 12/22/2023 12:30 PM EDT Approvals with refills [place] [id number] Miscellaneous Notes* Telephone Encounter - Zeb Orellana MD - 12/22/2023 12:30 PM EDT Approvals with refills documented in this [facility]10-01-2024 Telephone encounter Note* Telephone Encounter - Olga Lidia Saucedo - 12/13/2023 10:35 AM EDT Patient called and would like an order for a mammogram sent over. Last one on 12/20/2022. Thank you [facility] HospitalOxiqvxwmgh58-90-2048 Miscellaneous Notes* Telephone Encounter - Olga Lidia Saucedo - 12/13/2023 10:35 AM EDT Patient called and would like an order for a mammogram sent over. Last one on 12/20/2022. Thank you documented in this [facility]09-05-2024 Telephone encounter Note* Telephone Encounter - Shari Mckeon MD - 11/17/2023 4:48 PM EDT Refills sent. [facility] HospitalDagnzzeaca32-82-7074 Miscellaneous Notes* Telephone Encounter - Shari Mckeon MD - 11/17/2023 4:48 PM EDT Refills sent. documented in this [facility]02-14-2024 Telephone encounter Note* Telephone Encounter - Pati Valentino - 04/27/2023 1:09 PM EST Called pt and informed [facility] [id number] Miscellaneous Notes* Telephone Encounter - Pati Valentino - 04/27/2023 1:09 PM EST Called pt and informed * Telephone Encounter - Pati Vaelntino - 04/27/2023 12:51 PM EST Pt called stated she had LT TSA 07/26/22 and is getting a cavity filled and needs antibiotic called into [facility] in [place]. Allergies: NKDA . Her call back [phone] documented in this [facility]02-14-2024 Telephone encounter Note* Telephone Encounter - Pati Valentino - 04/27/2023 12:51 PM EST Pt called stated she had LT TSA 07/26/22 and is getting a cavity filled and needs antibiotic called into [facility] in [place]. Allergies: NKDA . Her call back [phone] [facility] [id number] Telephone encounter Note* Telephone Encounter - Shari Mckeon MD - 04/21/2023 7:05 PM EST [facility]ills sent. [facility] HospitalWjjoodfrrq34-65-5844 Miscellaneous Notes* Telephone Encounter - Shari Mckeon MD - 04/21/2023 7:05 PM EST Refills sent. documented in this encounterSaint John's Saint [facility] HospitalMlixkkytka74-58-4059 Note [id number]05-15-2023 [facility] SURGERY Clinical Discharge Summary PERSON INFORMATION Name RADHA BARRAZA Age 77 Years 1945 Sex FEMALE Language Venezuelan PCP SHARI MCKEON Marital Status Med Service Ambulatory Surgery Acct# Arrival 07/26/2022 05:52:10 Visit Reason SURGERY - LEFT REVERSE TOTAL SHOULDER - ARTHREX Acuity LOS 053 02:57 Address: [address] [place] [address] [place] [address] Comment: PROVIDER INFORMATION VITALS INFORMATION Vital Sign [...] DEPART REASON INCOMPLETE INFORMATION (more content not included)...[facility] [id number] NoteOPERATIVE NOTE OPERATION DATE: 02/01/2020 PREOPERATIVE DIAGNOSIS: [...] position. She was sedated by the nurse rendering equipment tender. Bite block was placed in her mouth. [...] patient tolerated the procedure without any difficulties. [facility] SIGNED AND APPROVED BY: DR CARLOS EDUARDO MENENDEZ . 02/07/2020 09:15:00[facility]* Diagnosis Essential hypertension (CMS/HCC) Unspecified essential hypertension documented in this encounter [facility]* Diagnosis S/P reverse total shoulder arthroplasty, left- Primary documented in this encounter [facility]Evaluation [facility]* Diagnosis Encounter for screening mammogram for malignant neoplasm of breast- Primary documented in this encounter [facility] note* Diagnosis Primary insomnia Persistent disorder of initiating or maintaining sleep documented in this encounter [facility]* Diagnosis Dermatophytosis of nail- Primary Dystrophic nail Other specified disease of nail Onychocryptosis Ingrowing nail Pain of left great toe documented in this encounter [facility]* Diagnosis Mild intermittent asthma, unspecified whether complicated (CMS/HCC) documented in this encounter [facility]* Diagnosis Essential hypertension (CMS/HCC) Unspecified essential hypertension documented in this encounter [facility]* Diagnosis Mild intermittent asthma, unspecified whether complicated (CMS/HCC) documented in this encounter [facility]* Diagnosis Chronic obstructive pulmonary disease [...] Shortness of breath documented in this encounter [facility] note* Diagnosis Primary hypertension- Primary Unspecified essential hypertension Stage 3b chronic kidney disease (CMS-HCC) Pure hypercholesterolemia Pure hypercholesterolemia Irregular heart beat Unspecified cardiac dysrhythmia Shortness of breath Chronic obstructive pulmonary disease, unspecified COPD type (HCC) Moderate aortic regurgitation PVC (premature ventricular contraction) Other premature beats Acute cholecystitis- Primary documented in this encounter [facility] HealthcareEvaluation note* Diagnosis Primary hypertension- Primary Unspecified essential hypertension Stage 3b chronic kidney disease ([facility]-HCC) Pure hypercholesterolemia Pure hypercholesterolemia Irregular heart beat Unspecified cardiac dysrhythmia Shortness of breath Chronic obstructive pulmonary disease, unspecified COPD type (HCC) Moderate aortic regurgitation PVC (premature ventricular contraction) Other premature beats Acute cholecystitis- Primary documented in this encounter [facility] HealthcareHospital Discharge instructions Additional Instructions DISCHARGE INSTRUCTIONS [...] appointment on Tuesday or for drain removal. [facility] Work Phone: Summary Purpose Family History Relationship Condition Age at Onset Recorded Date/T alana father Unknown mother Unknown Advance Directives Advance Directive Response Recorded Date/ Time Advance [...] and content) DATE CREATED AUTHOR 05/27/2018 [facility] DATE CREATED AUTHOR AUTHOR'S ORGANIZ ATION 11/06/2020 [facility] DATE CREATED AUTHOR AUTHOR'S ORGANIZ ATION 05/12/2022 [facility] dical Specialist DATE CREATED AUTHOR AUTHOR'S ORGANIZ ATION 07/28/2022 [facility] DATE CREATED AUTHOR AUTHOR'S ORGANIZ ATION 03/05/2024 [facility] DATE CREATED AUTHOR AUTHOR'S ORGANIZ ATION 10/23/2024 [facility] DATE CREATED AUTHOR AUTHOR'S ORGANIZ ATION 11/02/2024 [facility] DATE CREATED AUTHOR AUTHOR'S ORGANIZ ATION 11/04/2024 [facility] dical Specialists EPIC DATE CREATED AUTHOR AUTHOR'S ORGANIZ ATION 11/17/2024 [facility] Reason for Visit (unrecogniz ed section [...] Care Teams (unrecognized sec tion and content) Nurse Assessor Relationship Specialty Start Date End Date Tamara Aparicio NP [address] [place] [facility] [place] [address] PCP - Cristobal FIGUEROA 03/21/21 Shari Mckeon MD [address] [place] [address] PCP - General Family Medicine 07/26/22 Nurse Assessor Relationship Specialty Start Date End Date Tamara Aparicio NP [address] [place] [address] PCP - Cristobal FIGUEROA 03/21/21 Shari Mckeon MD [address] [place] [address] PCP - General Family Medicine 07/26/22 Nurse Assessor Relationship Specialty Start Date End Date Tamara Aparicio NP [address] [place] [address] PCP - Cristobal FIGUEROA 03/21/21 Shari Mckeon MD [address] [place] [address] PCP - General Family Medicine 07/26/22 Nurse Assessor Relationship Specialty Start Date End Date Tamara Aparicio NP [address] [place] [address] PCP Jonel Jain MA 03/21/21 Shari Mckeon MD [address] [place] [address] PCP - General Family Medicine 07/26/22 Nurse Assessor Relationship Specialty Start Date End Date Tamara Aparicio NP [address] [place] [address] PCP - Cristobal FIGUEROA 03/21/21 Shari Mckeon MD [address] [place] [address] PCP - General Family Medicine 07/26/22 Nurse Assessor Relationship Specialty Start Date End Date Tamara Aparicio NP [address] [place] [address] PCP - Cristobal FIGUEROA 03/21/21 Shari Mckeon MD [address] [place] [address] PCP - General Family Medicine 07/26/22 Nurse Assessor Relationship Specialty Start Date End Date Tamara Aparicio NP [address] [place] [address] PCP - Cristobal FIGUEROA 03/21/21 Shari Mckeon MD [address] [place] [address] PCP - General Family Medicine 07/26/22 Nurse Assessor Relationship Specialty Start Date End Date Tamara Aparicio NP [address] [place] [address] PCP - Cristobal FIGUEROA 03/21/21 Shari Mckeon MD [address] [place] [address] PCP - General Family Medicine 07/26/22 Nurse Assessor Relationship Specialty Start Date End Date Tamara Aparicio NP [address] [place] [address] PCP - Cristobal FIGUEROA 03/21/21 Shari Mckeon MD [address] [place] [address] PCP - General Family Medicine 07/26/22 Nurse Assessor Relationship Specialty Start Date End Date Shari Mckeon MD [address] [place] [address] PCP - General Family Medicine 07/26/22 Nurse Assessor Relationship Specialty Start Date End Date Shari Mckeon MD [address] [place] [address] PCP - General Family Medicine 07/26/22 Nurse Assessor Relationship Specialty Start Date End Date Shari Mckeon MD [address] [place] [address] PCP - General Family Medicine 07/26/22 Nurse Assessor Relationship Specialty Start Date End Date Shari Mckeon MD [address] [place] [address] PCP - General Family Medicine 07/26/22 Nurse Assessor Relationship Specialty Start Date End Date Shari Mckeon MD [address] [place] [address] PCP - General Family Medicine 07/26/22 Nurse Assessor Relationship Specialty Start Date End Date Shari Mckeon MD [address] [place] [address] PCP - General Family Medicine 07/26/22 Nurse Assessor Relationship Specialty Start Date End Date Shari Mckeon MD [address] [place] [address] PCP - General Family Medicine 07/26/22 Team [...] Shahriar Warren DO Other Provider Active Start: 2024 End: October 07, 2024 Nurse Assessor Relationship Specialty Start Date End Date Shari Mckeon MD [address] [place] [address] PCP - General Family Medicine 07/26/22 Nurse Assessor Relationship Specialty Start Date End Date Shari Mckeon MD [address] [place] [address] PCP - General Family Medicine 07/26/22 Nurse Assessor Relationship Specialty Start Date End Date Shari Mckeon MD [address] [place] [address] PCP - General Family Medicine 07/26/22 Anh King LPN Licensed Practical Nurse Family Medicine 11/05/24 FOR RECORDS PERTAINING TO PATIENTS WHO ARE [...] BE BASED ON THE PRIMARY CLINICAL RECORDS. [facility]. provides no warranty or guarantee of the accuracy or completeness of information in this document.
== END 2024-11-29 08:26 | disposition home or self-care (01) ==
LOC: PM 08:25
PROVIDERS: PCP Family Medicine; Visit Provider Nurse Practitioner
DX: M47.814 Spondylosis without myelopathy or radiculopathy, thoracic region (principal); M54.6 Pain in thoracic spine; M47.816 Spondylosis without myelopathy or radiculopathy, lumbar region; Z79.891 Long term (current) use of opiate analgesic
CPT/HCPCS: G0463

== ENCOUNTER 2024-12-03 11:00 | Outpatient (OUT) | payer MEDICARE, SELFPAY ==
--- OUTSIDE RECORDS SUMMARY | 2024-12-03 11:10 | XMS_ITS | CCD ---
Author Organization [facility] [place] [facility] Care Team Providers Care Data Steward Name Role Phone PHYSICIAN, DEFAULT Admitting Unavailable [...] able Ede Ramos Attending Unavail able Alessandra HEAD CHARGER, Tamara Plascencia Unavailable Shari Mckeon MD Primary Care Provider Jovi JAIMES, Kei Brian Attending Unavailable Jovi JAIMES, Kei Brian Attending Unavailable Giedraitis , Andrius Snehal Attending Unavailable Giedraitis , Andrius Vytkristin Attending Unavailable Giedraitis , Andrius Vytautanthony Attending Unavailable Giedraitis , Andrius Vytautanthony Attending Unavailable Giedraitis , Andrius Vytkristin Attending Unavailable Giedraitis , Andrius Emmaytkristin Attending Unavailable Giedraitis , Andrius Vytkristin Attending Unavailable Giedraitis , Andrius Snehal Attending Unavailable Shari Michel MD Primary Care Pr ovider Kimberly Sanchez MD Admit Provider [phone] Chema Gupta DO Attending Provider Shahriar Warren [...] MCKEON Referring Unavailable ROGER VASQUEZ Attending Unavailable Anh King LPN Unavailable RAMIRO PAVON Attending Unavailable Allergies Allergy Classification Reported Allergen(s) Allergy Type Date of Onset Reaction(s) Facility (2 sources) Alendronate; Translations: [Fosamax] Drug Allergy [facility] Repository (20 sources) Alendronate; Translations: [ALENDRONATE] Drug [...] / codeine phosphate 30 mg oral tablet (16 sources) Opioid Agonist Start: 03-28-2024 acetaminophen-co deine [...] / HYDROcodone bitartrate 5 mg oral tablet (7 sources) Opioid Agonist Start: 10-06-2024 take 1 tablet by mouth once daily as needed for pain Hydrocodone-Acetaminophen 5-325 mg tablet Active 1 TAB PO Daily as needed for pain October 06, 2024 12:00am Complies with drug therapy Start: 10-05-2024 take 1 tablet by abhinav th every six hours as needed for pain and pain HYDROcodone-acetaminophen ([place]) 5-325 MG tablet Take 1 tablet by mouth every 6 (six) hours if needed for moderate pain or severe pain 10/05/2024 Active [id number] 200 actuat albuterol 0.09 mg/actuat metered dose inhaler (6 sources) beta2-Adrenergic Agonist Start: 10-06-2024 take 2 [...] 07/07/2023 Active furosemide 20 mg oral tablet (7 sources) Loop Diuretic Start: 10-07-2024 take 1 [...] succinate 25 mg extended release oral tablet (9 sources) beta-Adrenergic Aguilar Start: 10-22-2024 take 1 [...] drug therapy ondansetron 4 mg oral tablet (15 sources) Serotonin-3 Receptor Antagonist Start: 04-24-2024 take [...] Problem Date Documented Date Episodic/Chronic Abdominal pain (9 sources) Right upper quadrant pain; Translations: [Right upper quadrant pain] Onset: 10-06-2024 10-06-2024 Episodic Asthma (20 sources) Mild intermittent asthma; Translations: [Mild intermittent asthma with status asthmaticus] Onset: 06-12-2017 Resolved: 06-17-2023 07-15-2022 Chronic Biliary tract disease (15 sources) Acute cholecystitis; Translations: [Acute cholecystitis] Onset: [...] 07-15-2022 Chronic Diseases of white blood cells (9 sources) Leukocytosis; Translations: [Elevated white blood cell [...] Spondylosis; intervertebral disc disorders; other back problems (7 sources) Low back pain; Translations: [Low back pain] Onset: 10-08-2024 10-07-2024 Episodic Unclassified (1 source) Call office on Tuesday to schedule follow-up with Dr. Warren on Tuesday or for drain removal. Unclassified (1 source) Call office on Tuesday to schedule follow-up with your Primary Care Provider within 3-5 days of discharge. 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 She needed to have this done as well. We will reach out to her and have her come in a little early on Tuesday before she see Dr. Burrows and have it done. Spoke to patient to let her know she need a BMP drawn, Advised patient she could come in early on Tuesday and have it drawn before her appointment. Patient verbalized understanding and agreed with plan of care. Order sent to scheduling [facility] Telephoneon 11-29-2024 Telephone [id number] Radha Barraza 1945 F Date Provider Department Center 11/29/2024 [id number] [facility] Family History Problem Relation Age of Onset No Known Problems Mother No Known Problems Father Family Status - Relation Status Age at Mother Father [facility] ALL PRO BNPon 11-23-2024 NT PRO B TYPE NATRIURETIC PEPT 1696 pg/mL NINF - 1800.0 pg/mL [facility] 37on 11-15-2024 37 *Stop losartan/hydrochlorothiazid e *Start losartan 100mg daily *Start spironolactone 25mg daily *Have lab work done around 11/22/24 Normal [facility] Office Visiton 11-15-2024 Follow-up visit [id number] Radha Barraza 1945 F Date Provider Department Center 11/15/2024 RAMIRO [facility]ILSON [facility]ARD [facility] Family History Problem Relation Age of Onset No Known Problems Mother No Known Problems Father Family Status - Relation Status Age at Mother Father Level of Service:80451 HI OFFICE/OUTPATIENT NEW MODERATE MDM 45 MINUTES Reason for Visit and Comments: New Patient [632] Heart Murmur [124] Normal [facility] Basophils [#/volume] in Bloo d by Automated countOrdered By: Shahriar Warren on 10-07-2024 Basophils (Bld) [#/Vol] 0.0 10*3/uL Normal 0.0-0.2 [facility] Comment on above: Result Comment: PERF ORMED BY: [place] [address] PATHOLOGIST ENVIRONMENTAL PROJECT MANAGER SHERMAN AUGUSTIN M.D. Performed By: #### B ILTD, CREAT, CBC, BUN #### [facility] [address] [place] [address] [place] Basophils/100 leukocytes in Blood by Automated countOrdered By: Shahriar Warren on 10-07-2024 Basophils/100 WBC (Bld) 0.3 % Normal . [facility] Comment on above: Performed By: #### B ILTD, CREAT, CBC, BUN #### [facility] [address] [place] [address] [place] Bilirubin, Total and Directo n 10-07-2024 Bilirubin,Indirect 0.2 mg/dL Normal The Count Includes [facility] Comment on above: Result Comment: PERF ORMED BY: [facility] [address] [place] [address] PATHOLOGIST ENVIRONMENTAL PROJECT MANAGER SHERMAN AUGUSTIN M.D. Performed By: #### B ILTD, CREAT, CBC, BUN #### [facility] [address] Bilirubin.indirect [Mass/Vol] 0.10 mg/dL Normal 0.03-0.18 The Count Includes [facility] Comment on above: Performed By: #### B ILTD, CREAT, CBC, BUN #### [facility] [address] Bilirubin, total and directo n 10-07-2024 Bilirubin [Mass/Vol] 0.3 mg/dL 0.3 - 1 .0 mg/dL [facility] Bilirubin.indirect [Mass/Vol] 0.1 mg/dL 0.03 - 0.18 mg/dL [facility] Magnesium [Mass/Vol] 0.2 mg/dL [facility] Bilirubin.direct [Mass/volum e] in Serum or PlasmaOrdered By: Shahriar Warren on 10-07-2024 Bilirubin.direct [Mass/Vol] 0.10 mg/dL 0.03-0.18 [facility] Bilirubin.total [Mass/volume ] in Serum or PlasmaOrdered By: Shahriar Warren on 10-07-2024 Bilirubin [Mass/Vol] 0.3 mg/dL Normal 0.3-1.0 [facility] Comment on above: Performed By: #### B ILTD, CREAT, CBC, BUN #### [facility] [address] CBC W Auto Differential pane l (Bld)on 10-07-2024 Basophils (Bld) [#/Vol] 0 10*3/uL 0.0 - 0.2 10*3/uL [facility] Basophils/100 WBC Manual cnt (Syn fld) 0.3 % . [facility] Eosinophils (Bld) [#/Vol] 0.1 10*3/uL 0.0 - 0.45 10*3/uL [facility] Eosinophils/100 WBC Manual cnt (Syn fld) 1.3 % . [facility] Erythrocyte distribution width (RBC) [Ratio] 13.5 % 11.9 - 15.3 % [facility] Hematocrit (Bld) [Volume fraction] 28.5 % Low 34.0 - 46.4 % [facility] Hemoglobin (Bld) [Mass/Vol] 9.6 g/dL Low 11.8 - 15.4 g/dL [facility] Interpretation and review of laboratory results Abnormal [facility] Lymphocytes (Bld) [#/Vol] 0.8 10*3/uL Low 1.00 - 4.8 10*3/uL [facility] Lymphocytes/100 WBC Manual cnt (Syn fld) 9.4 % . [facility] MCH (RBC) [Entitic mass] 31.8 pg 24.7 - 34.3 pg [facility] MCHC (RBC) [Mass/Vol] 33.6 g/dL 32.0 - 35.0 g/dL [facility] MCV (RBC) [Entitic vol] 94.6 fL 80 - 100 fL [facility] Monocytes (Bld) [#/Vol] 0.4 10*3/uL 0.0 - 0.8 10*3/uL [facility] Monocytes+Macrophages/ 100 WBC Manual cnt (Syn fld) 4.2 % . [facility] Neutrophils (Bld) [#/Vol] 7.2 10*3/uL 1.8 - 7.7 10*3/uL [facility] Neutrophils/100 WBC Manual cnt (Syn fld) 84.8 % . [facility] NRBC 0 /100{WBC} 0 - 0.5 /100{WBC} [facility] Platelet mean volume (Bld) [Entitic vol] 8.8 fL 6.3 - 10.7 fL [facility] Platelets (Bld) [#/Vol] 177 10*3/uL 150 - 450 10*3/uL [facility] RBC LM.HPF (Urine sed) [#/Area] 3.01 10*6/uL Low 3.60 - 5.00 10*6/uL [facility] WBC (Bld) [#/Vol] 8.5 10*3/uL 3.8 - 11.6 10*3/uL [facility] WBC LM.HPF (Urine sed) [#/Area] 8.5 [CFU]/mL 3.8 - 11.6 [CFU]/mL [facility] Complete Blood Count Auto Di ffon 10-07-2024 Mean Corpuscular HGB Conc 33.6 g/dL Normal 32.0-35.0 The Count Includes [facility] Comment on above: Performed By: #### B ILTD, CREAT, CBC, BUN #### [address] NRBC% 0.0 /100{WBC} Normal 0-0.5 The Count Includes [facility] Comment on above: Performed By: #### B ILTD, CREAT, CBC, BUN #### [address] White Blood Count 8.5 [CFU]/mL Normal 3.8-11.6 The Count Includes [facility] Comment on above: Performed By: #### B ILTD, CREAT, CBC, BUN #### [address] Creatinineon 10-07-2024 Creatinine Clr Calc Pharmacy 29.30 Normal The Count Includes [facility] Comment on above: Performed By: #### B ILTD, CREAT, CBC, BUN #### [address] GFR/1.73 sq M.predicted MDRD (S/P/Bld) [Vol rate/Area] 50.796 mL/min/{1.73_m2} Normal The Count Includes [facility] Comment on above: Performed By: #### B ILTD, CREAT, CBC, BUN #### [address] Creatinine [Mass/Vol]on 09-12 Creatinine (U) [Mass/Vol] 1.1 mg/dL 0.60 - 1.20 mg/dL [facility] sq M.predicted MDRD (S/P/Bld) [Vol rate/Area] 50.796 mL/min/{1.73_m2} [facility] Creatinine [Mass/volume] in Serum or PlasmaOrdered By: Shahriar Warren on 10-07-2024 Creatinine [Mass/Vol] 1.10 mg/dL Normal 0.60-1.20 [facility] Comment on above: Performed By: #### B ILTD, CREAT, CBC, BUN #### [address] Eosinophils [#/volume] in Bl ood by Automated countOrdered By: Shahriar Warren on 10-07-2024 Eosinophils (Bld) [#/Vol] 0.1 10*3/uL Normal 0.0-0.45 [facility] Comment on above: Performed By: #### B ILTD, CREAT, CBC, BUN #### [address] Eosinophils/100 leukocytes i n Blood by Automated countOrdered By: Shahriar Warren on 10-07-2024 Eosinophils/100 WBC (Bld) 1.3 % Normal . [facility] Comment on above: Performed By: #### B ILTD, CREAT, CBC, BUN #### [address] Erythrocyte distribution wid th [Ratio] by Automated countOrdered By: Shahriar Warren on 10-07-2024 Erythrocyte distribution width (RBC) [Ratio] 13.5 % Normal 11.9-15.3 [facility] Comment on above: Performed By: #### B ILTD, CREAT, CBC, BUN #### [address] Erythrocytes [#/volume] in B lood by Automated countOrdered By: Shahriar Warren on 10-07-2024 RBC (Bld) [#/Vol] 3.01 10*6/uL Low 3.60-5.00 [facility] Comment on above: Performed By: #### B ILTD, CREAT, CBC, BUN #### [address] Hematocrit [Volume Fraction] of Blood by Automated countOrdered By: Shahriar Warren on 10-07-2024 Hematocrit (Bld) [Volume fraction] 28.5 % Low 34.0-46.4 [facility] Comment on above: Performed By: #### B ILTD, CREAT, CBC, BUN #### [address] [place] [address] [place] Hemoglobin [Mass/volume] in BloodOrdered By: Shahriar Warren on 10-07-2024 Hemoglobin (Bld) [Mass/Vol] 9.6 g/dL Low 11.8-15.4 [facility] Comment on above: Performed By: #### B ILTD, CREAT, CBC, BUN #### [facility] [address] Leukocytes [#/volume] correc marvel for nucleated erythrocytes in Blood by Automated counOrdered By: Shahriar Warren on 10-07-2024 WBC corrected for nucl RBC Auto (Bld) [#/Vol] 8.5 10*3/uL 3.8-11.6 [facility] Leukocytes [#/volume] in Blo od by Automated countOrdered By: Shahriar Warren on 10-07-2024 WBC (Bld) [#/Vol] 8.5 10*3/uL Normal 3.8-11.6 [facility] Comment on above: Performed By: #### B ILTD, CREAT, CBC, BUN #### [facility] [address] [place] [address] Lymphocytes [#/volume] in Bl ood by Automated countOrdered By: Shahriar Warren on 10-07-2024 Lymphocytes (Bld) [#/Vol] 0.8 10*3/uL Low 1.00-4.8 [facility] Comment on above: Performed By: #### B ILTD, CREAT, CBC, BUN #### [facility] [address] [place] [address] [place] Lymphocytes/100 leukocytes i n Blood by Automated countOrdered By: Shahriar Warren on 10-07-2024 Lymphocytes/100 WBC (Bld) 9.4 % Normal . [facility] Comment on above: Performed By: #### B ILTD, CREAT, CBC, BUN #### [facility] [address] [place] [address] [place] MCH [Entitic mass] by Automa marvel countOrdered By: Shahriar Warren on 10-07-2024 MCH (RBC) [Entitic mass] 31.8 pg Normal 24.7-34.3 [facility] Comment on above: Performed By: #### B ILTD, CREAT, CBC, BUN #### [address] MCHC Auto (RBC) [Mass/Vol]Or dered By: Shahriar Warren on 10-07-2024 MCHC (RBC) [Mass/Vol] 33.6 g/dL 32.0-35.0 [facility] MCV [Entitic volume] by Auto mated countOrdered By: Shahriar Warren on 10-07-2024 MCV (RBC) [Entitic vol] 94.6 fL Normal 80-100 [facility] Comment on above: Performed By: #### B ILTD, CREAT, CBC, BUN #### [address] Monocytes [#/volume] in Bloo d by Automated countOrdered By: Shahriar Warren on 10-07-2024 Monocytes (Bld) [#/Vol] 0.4 10*3/uL Normal 0.0-0.8 [facility] Comment on above: Performed By: #### B ILTD, CREAT, CBC, BUN #### [place] [address] [place] Monocytes/100 leukocytes in Blood by Automated countOrdered By: Shahriar Warren on 10-07-2024 Monocytes/100 WBC (Bld) 4.2 % Normal . [facility] Comment on above: Performed By: #### B ILTD, CREAT, CBC, BUN #### [place] [address] [place] Neutrophils [#/volume] in Bl ood by Automated countOrdered By: Shahriar Warren on 10-07-2024 Neutrophils (Bld) [#/Vol] 7.2 10*3/uL Normal 1.8-7.7 [facility] Comment on above: Performed By: #### B ILTD, CREAT, CBC, BUN #### [place] [address] [place] Neutrophils/100 leukocytes i n Blood by Automated countOrdered By: Shahriar Warren on 10-07-2024 Neutrophils/100 WBC (Bld) 84.8 % Normal . [facility] Comment on above: Performed By: #### B ILTD, CREAT, CBC, BUN #### [facility] [address] No Panel Informationon 10-07 [facility] No Panel InformationOrdered By: Shahriar Warren on 10-07-2024 Estimated GFR (CKD-EPI) 50.796 mL/Min [facility] Creatinine Clearance (Chem 29.30 [facility] Nucleated erythrocytes [Pres ence] in Blood by Automated countOrdered By: Shahriar Warren on 10-07-2024 Nucleated RBC Auto Ql (Bld) 0.0 /100{WBC} 0-0.5 [facility] Platelet mean volume [Entiti c volume] in Blood by Automated countOrdered By: Shahriar Warren on 10-07-2024 Platelet mean volume (Bld) [Entitic vol] 8.8 fL Normal 6.3-10.7 [facility] Comment on above: Performed By: #### B ILTD, CREAT, CBC, BUN #### [facility] [address] [place] [address] Platelets [#/volume] in Bloo d by Automated countOrdered By: Shahriar Warren on 10-07-2024 Platelets (Bld) [#/Vol] 177 10*3/uL Normal 150-450 [facility] Comment on above: Performed By: #### B ILTD, CREAT, CBC, BUN #### [facility] [address] [place] [address] Serum or plasma non-glucuron idated bilirubin measurement (mass/volume)Ordered By: Shahriar Warren on 10-07-2024 Bilirubin.indirect [Mass/Vol] 0.2 mg/dL [facility] Urea nitrogen [Mass/volume] in Serum or PlasmaOrdered By: Shahriar Warren on 10-07-2024 Urea nitrogen [Mass/Vol] 20 mg/dL Normal 7-25 [facility] Comment on above: Performed By: #### B ILTD, CREAT, CBC, BUN #### [facility] [address] [place] [address] [place] Urea nitrogen, body fluidon 10-07-2024 Urea nitrogen [Mass/Vol] 20 mg/dL 7 - 25 mg/dL [facility] Alanine aminotransferase [En zymatic activity/volume] in Serum or PlasmaOrdered By: Obaydah Daromar on 10-06-2024 ALT [Catalytic activity/Vol] 119 U/L High 7-52 [facility] Comment on above: Performed By: #### B ILTD, LIPID, LIPASE, CBC, PT, CMP, DELMI #### [facility] [address] [place] [address] [place] Albumin [Mass/volume] in Ser um or Plasma by Bromocresol green (BCG) dye binding methoOrdered By: Obaydarosalind Daromar on 10-06-2024 Albumin BCG dye [Mass/Vol] 3.3 g/dL Low 3.5-5.7 [facility] Alkaline phosphatase [Enzyma tic activity/volume] in Serum or PlasmaOrdered By: Obaydah Daromar on 10-06-2024 ALP [Catalytic activity/Vol] 93 U/L Normal 34-104 [facility] Comment on above: Performed By: #### B ILTD, LIPID, LIPASE, CBC, PT, CMP, DELMI #### [facility] [address] [place] [address] [place] Amylase [Enzymatic activity/ volume] in Serum or PlasmaOrdered By: Shahriar Warren on 10-06-2024 Amylase [Catalytic activity/Vol] 41 U/L Normal 29-103 [facility] Comment on above: Performed By: #### B ILTD, LIPID, LIPASE, CBC, PT, CMP, DELMI #### [facility] [address] [place] [address] [place] Aspartate aminotransferase [ Enzymatic activity/volume] in Serum or PlasmaOrdered By: Obaydah Daromar on 10-06-2024 AST [Catalytic activity/Vol] 161 U/L High 13-39 [facility] Comment on above: Performed By: #### B ILTD, LIPID, LIPASE, CBC, PT, CMP, DELMI #### [facility] [address] [place] [address] [place] Bilirubin, Total and Directo n 10-06-2024 Bilirubin,Indirect 0.3 mg/dL Normal The Count Includes [facility] Comment on above: Performed By: #### B ILTD, LIPID, LIPASE, CBC, PT, CMP, DELMI #### [facility] [address] Bilirubin.indirect [Mass/Vol] 0.30 mg/dL High 0.03-0.18 The Count Includes [facility] Comment on above: Performed By: #### B ILTD, LIPID, LIPASE, CBC, PT, CMP, DELMI #### [facility] [address] Calcium [Mass/volume] in Ser um or PlasmaOrdered By: Obaydah Daromar on 10-06-2024 Calcium [Mass/Vol] 8.5 mg/dL Low 8.6-10.3 [facility] Comment on above: Performed By: #### B ILTD, LIPID, LIPASE, CBC, PT, CMP, DELMI #### [facility] [address] Carbon dioxide, total [Moles /volume] in Serum or PlasmaOrdered By: Obaydah Daromar on 10-06-2024 CO2 [Moles/Vol] 25.1 mmol/L Normal 21.0-31.0 [facility] Comment on above: Performed By: #### B ILTD, LIPID, LIPASE, CBC, PT, CMP, DELMI #### [facility] [address] [place] [address] [place] Chloride [Moles/volume] in S neva or PlasmaOrdered By: Obaydah Daromar on 10-06-2024 Chloride [Moles/Vol] 101 mmol/L Normal 98-107 [facility] Comment on above: Performed By: #### B ILTD, LIPID, LIPASE, CBC, PT, CMP, DELMI #### [facility] [address] Cholesterol [Mass/volume] in Serum or PlasmaOrdered By: Obaydah Daromar on 10-06-2024 Cholesterol [Mass/Vol] 145 mg/dL Normal 140-200 [facility] Comment on above: Chol less than 200 m g/dl low riskChol 201-239 mg/dl borderline riskChol 240 mg/dl and greater high risk Result Comment: Chol less than 200 mg/dl low risk Chol 201-239 mg/dl borderline risk Chol 240 mg/dl and greater high risk Performed By: #### B ILTD, LIPID, LIPASE, CBC, PT, CMP, DELMI #### [facility] [address] [place] [address] [place] Performed By: #### B ILTD, CREAT, CBC, BUN #### [facility] [address] [place] [address] [place] Cholesterol in HDL [Mass/vol ume] in Serum or PlasmaOrdered By: Kimberly Hindsr on 10-06-2024 Cholesterol in HDL [Mass/Vol] 71 mg/dL Normal 23-92 [facility] Comment on above: HDL CHOL ATP-III CLA SSIFICATION Cardiovascular RiskHDL > or equal to 60 mg/dL LOWHDL < 40 mg/dL HIGH Result Comment: HDL CHOL ATP-III CLASSIFICATION Cardiovascular Risk HDL > or equal to 60 mg/dL LOW HDL < 40 mg/dL HIGH Performed By: #### B ILTD, LIPID, LIPASE, CBC, PT, CMP, DELMI #### [facility] [address] [place] [address] [place] Performed By: #### B ILTD, CREAT, CBC, BUN #### [facility] [address] [place] [address] [place] Cholesterol in LDL Calc [Mas s/Vol]Ordered By: Kimberly Sanchez on 10-06-2024 Cholesterol in LDL [Mass/Vol] 59 mg/dL 0-100 [facility] Comment on above: LDL ATP III CLASSIFI CATIONLDL less than 100 mg/dL OptimalLDL 100-129 mg/dL Near or above optimalLDL 130-159 mg/dL Borderline highLDL 160-189 mg/dL HighLDL greater than 189 mg/dL Very high Cholesterol in VLDL Calc [Ma ss/Vol]Ordered By: Kimberly Sanchez on 10-06-2024 Cholesterol in VLDL [Mass/Vol] 14 mg/dL [facility] Complete Blood Count Auto Di ffon 10-06-2024 Basophils (Bld) [#/Vol] 0.0 10*3/uL Normal 0.0-0.2 The Count Includes [facility] Comment on above: Result Comment: PERF ORMED BY: [place] [address] PATHOLOGIST ENVIRONMENTAL PROJECT MANAGER SHERMAN AUGUSTIN M.D. Performed By: #### B ILTD, LIPID, LIPASE, CBC, PT, CMP, DELMI #### [address] Basophils/100 WBC (Bld) 0.2 % Normal . The Count Includes [facility] Comment on above: Performed By: #### B ILTD, LIPID, LIPASE, CBC, PT, CMP, DELMI #### [address] Eosinophils (Bld) [#/Vol] 0.0 10*3/uL Normal 0.0-0.45 The Count Includes [facility] Comment on above: Performed By: #### B ILTD, LIPID, LIPASE, CBC, PT, CMP, DELMI #### [address] Eosinophils/100 WBC (Bld) 0.2 % Normal . The Count Includes [facility] Comment on above: Performed By: #### B ILTD, LIPID, LIPASE, CBC, PT, CMP, DELMI #### [address] Erythrocyte distribution width (RBC) [Ratio] 13.4 % Normal 11.9-15.3 The Count Includes [facility] Comment on above: Performed By: #### B ILTD, LIPID, LIPASE, CBC, PT, CMP, DELMI #### [address] Hematocrit (Bld) [Volume fraction] 34.3 % Normal 34.0-46.4 The Count Includes [facility] Comment on above: Performed By: #### B ILTD, LIPID, LIPASE, CBC, PT, CMP, DELMI #### [address] Hemoglobin (Bld) [Mass/Vol] 11.5 g/dL Low 11.8-15.4 The Count Includes [facility] Comment on above: Performed By: #### B ILTD, LIPID, LIPASE, CBC, PT, CMP, DELMI #### [address] Lymphocytes (Bld) [#/Vol] 0.7 10*3/uL Low 1.00-4.8 The Count Includes [facility] Comment on above: Performed By: #### B ILTD, LIPID, LIPASE, CBC, PT, CMP, DELMI #### [address] Lymphocytes/100 WBC (Bld) 6.6 % Normal . The Count Includes [facility] Comment on above: Performed By: #### B ILTD, LIPID, LIPASE, CBC, PT, CMP, DELMI #### [address] MCH (RBC) [Entitic mass] 31.6 pg Normal 24.7-34.3 The Count Includes [facility] Comment on above: Performed By: #### B ILTD, LIPID, LIPASE, CBC, PT, CMP, DELMI #### [address] MCV (RBC) [Entitic vol] 94.8 fL Normal 80-100 The Count Includes [facility] Comment on above: Performed By: #### B ILTD, LIPID, LIPASE, CBC, PT, CMP, DELMI #### [address] Mean Corpuscular HGB Conc 33.4 g/dL Normal 32.0-35.0 The Count Includes [facility] Comment on above: Performed By: #### B ILTD, LIPID, LIPASE, CBC, PT, CMP, DELMI #### [address] Monocytes (Bld) [#/Vol] 0.4 10*3/uL Normal 0.0-0.8 The Count Includes [facility] Comment on above: Performed By: #### B ILTD, LIPID, LIPASE, CBC, PT, CMP, DELMI #### [address] Monocytes/100 WBC (Bld) 3.9 % Normal . The Count Includes [facility] Comment on above: Performed By: #### B ILTD, LIPID, LIPASE, CBC, PT, CMP, DELMI #### [address] Neutrophils (Bld) [#/Vol] 9.9 10*3/uL High 1.8-7.7 The Count Includes [facility] Comment on above: Performed By: #### B ILTD, LIPID, LIPASE, CBC, PT, CMP, DELMI #### [address] Neutrophils/100 WBC (Bld) 89.1 % Normal . The Count Includes [facility] Comment on above: Performed By: #### B ILTD, LIPID, LIPASE, CBC, PT, CMP, DELMI #### [address] NRBC% 0.0 /100{WBC} Normal 0-0.5 The Count Includes [facility] Comment on above: Performed By: #### B ILTD, LIPID, LIPASE, CBC, PT, CMP, DELMI #### [address] Platelet mean volume (Bld) [Entitic vol] 8.6 fL Normal 6.3-10.7 The Count Includes [facility] Comment on above: Performed By: #### B ILTD, LIPID, LIPASE, CBC, PT, CMP, DELMI #### [address] Platelets (Bld) [#/Vol] 207 10*3/uL Normal 150-450 The Count Includes [facility] Comment on above: Performed By: #### B ILTD, LIPID, LIPASE, CBC, PT, CMP, DELMI #### [address] RBC (Bld) [#/Vol] 3.62 10*6/uL Normal 3.60-5.00 The Count Includes [facility] Comment on above: Performed By: #### B ILTD, LIPID, LIPASE, CBC, PT, CMP, DELMI #### [address] WBC (Bld) [#/Vol] 11.1 10*3/uL Normal 3.8-11.6 The Count Includes [facility] Comment on above: Performed By: #### B ILTD, LIPID, LIPASE, CBC, PT, CMP, DELMI #### [address] White Blood Count 11.1 [CFU]/mL Normal 3.8-11.6 The Count Includes [facility] Comment on above: Performed By: #### B ILTD, LIPID, LIPASE, CBC, PT, CMP, DELMI #### [address] Comprehensive Metabolic Pane george 10-06-2024 Albumin [Mass/Vol] 3.3 g/dL Low 3.5-5.7 The Count Includes [facility] Comment on above: Performed By: #### B ILTD, LIPID, LIPASE, CBC, PT, CMP, DELMI #### [address] Bilirubin [Mass/Vol] 0.6 mg/dL Normal 0.3-1.0 The Count Includes [facility] Comment on above: Performed By: #### B ILTD, LIPID, LIPASE, CBC, PT, CMP, DELMI #### [address] Creatinine [Mass/Vol] 1.33 mg/dL High 0.60-1.20 The Count Includes [facility] Comment on above: Performed By: #### B ILTD, LIPID, LIPASE, CBC, PT, CMP, DELMI #### [address] Creatinine Clr Calc Pharmacy 24.23 Normal The Count Includes [facility] Comment on above: Performed By: #### B ILTD, LIPID, LIPASE, CBC, PT, CMP, DELMI #### [address] GFR/1.73 sq M.predicted MDRD (S/P/Bld) [Vol rate/Area] 40.447 mL/min/{1.73_m2} Normal The Count Includes [facility] Comment on above: Performed By: #### B ILTD, LIPID, LIPASE, CBC, PT, CMP, DELMI #### [facility] [address] [place] [id number] [facility] Urea nitrogen [Mass/Vol] 28 mg/dL High 7-25 The Count Includes [facility] Comment on above: Performed By: #### B ILTD, LIPID, LIPASE, CBC, PT, CMP, DELMI #### [facility] [address] [id number] [place] Glucose [Mass/volume] in Ser um or PlasmaOrdered By: Kimberly Sanchez on 10-06-2024 Glucose [Mass/Vol] 99 mg/dL Normal 70-100 [facility] Comment on above: ADA recommended refe rence rangeRandom Glucose Reference Range is dependent on time and content of last meal. Glucose of more than 200 mg/dL in a nonstressed, ambulatory subject supports the diagnosis of Diabetes Mellitus. Result Comment: [place] om Glucose Reference Range is dependent on time and content of last meal. Glucose of more than 200 mg/dL in a nonstressed, ambulatory subject supports the diagnosis of Diabetes Mellitus. ADA recommended reference range Performed By: #### B ILTD, LIPID, LIPASE, CBC, PT, CMP, DELMI #### [facility] [address] [place] [id number] [place] INR in Platelet poor plasma by Coagulation assayOrdered By: Kimberly Sanchez on 10-06-2024 INR Coag (PPP) [Relative time] 1.1 {INR} Normal [facility] Comment on above: INR Therapeutic Rang [...] heart valves: 3 - 4.5 PERFORMED BY: [facility] [address] [place] [id number] PATHOLOGIST ENVIRONMENTAL PROJECT MANAGER SHERMAN AUGUSTIN M.D. Performed By: #### B ILTD, LIPID, LIPASE, CBC, PT, CMP, DELMI #### [facility] [address] [id number] [facility] 10-06-2024 L ------- Specimen: [id number] Received: 10/08/24 Status: JEB Bess Num: [id number] Spec Type: Surgical Subm Dr: Shahriar Warren DO Tissues: A Gallbladder (GALLBLADDER) Procedures: MARIANO, Nino/Halima L3 Age/ Patient Sex Location Account Attending Physician Radha Barraza 79/F 4N [id number] Chema Gupta, DO SPEC NUM: [id number] RECD: 10/08/24 STATUS: JEB BESS NUM: [id number] TAMMY: 10/06/[address]: Shahriar Warren DO ENTERED: 10/08/24 LIZ SEAY: SULY TYPE: Surgical DEPT: S ENTERED BY: [id number] RECV BY: [id number] ORDERED: HE, Gross/Micro L3 ORDERED: HE, Gross/Micro [...] are filtered and no calculi are identified. Instrument Operator sections are submitted in a single cassette. (1, , [id number] A) Microscopic Description Microscopic examination is performed Specimen: [id number] Received: 10/08/24 Status: JEB Bess Num: [id number] Spec Type: Surgical Subm Dr: Shahriar Warren DO Tissues: A Gallbladder (GALLBLADDER) Procedures: Nino QUINTANA/Halima L3 Patient: Radha Barraza [id number] (Continued) Specimen: [id number] Received: 10/08/24 (Continued) Signed (signature on file) Leon Kemp MD 10/09/24 1317 Specimen: [id number] Received: 10/08/24 Status: JEB Bess Num: [id number] Spec Type: Surgical Subm Dr: Shahriar Warren DO Tissues: A Gallbladder (GALLBLADDER) Procedures: Annabel QUINTANA L3 Patient: Radha Barraza [id number] (Continued) Specimen: [id number] Received: 10/08/24 (Continued) CPT Codes 64413 Specimen: [id number] Received: 10/08/24 Status: JEB Bess Num: [id number] Spec Type: Surgical Subm Dr: Shahriar Warren DO Tissues: A Gallbladder (GALLBLADDER) Procedures: Nino QUINTANA/Halima L3 Patient: Radha Barraza [id number] (Continued) Signed (signature on file) Leon Kemp MD 10/09/24 1317 Normal The Count Includes [facility] Lipase [Enzymatic activity/v olume] in Serum or PlasmaOrdered By: Shahriar Warren on 10-06-2024 Lipase [Catalytic activity/Vol] 13.0 U/L Normal 11.0-82.0 [facility] Comment on above: Performed By: #### B ILTD, CREAT, CBC, BUN #### [facility] [address] Lipid Panelon 10-06-2024 LDL Cholesterol,Calculated 59 mg/dL Normal 0-100 The Count Includes [facility] Comment on above: Result Comment: LDL ATP III CLASSIFICATION LDL less than 100 mg/dL Optimal LDL 100-129 mg/dL Near or above optimal LDL 130-159 mg/dL Borderline high LDL 160-189 mg/dL High LDL greater than 189 mg/dL Very high Performed By: #### B ILTD, LIPID, LIPASE, CBC, PT, CMP, DELMI #### [facility] [address] Performed By: #### B ILTD, CREAT, CBC, BUN #### [facility] [address] Triglyceride w/Reflex 74 mg/dL Normal 0-149 The Count Includes [facility] Comment on above: Result Comment: TRIG ATP III CLASSIFICATION TRIG less than 150 mg/dL Normal TRIG 150-199 mg/dL Borderline high TRIG 200-500 mg/dL High TRIG greater than 500 mg/dL Very high Standard traceable to the Center for Disease Conrtrol and Prevention (CDC) test method. Performed By: #### B ILTD, LIPID, LIPASE, CBC, PT, CMP, DELMI #### [address] Performed By: #### B ILTD, CREAT, CBC, BUN #### [address] VLDL CHOLESTEROL 14 mg/dL Normal The Count Includes [facility] Comment on above: Performed By: #### B ILTD, LIPID, LIPASE, CBC, PT, CMP, DELMI #### [address] Performed By: #### B ILTD, CREAT, CBC, BUN #### [address] Potassium [Moles/volume] in Serum or PlasmaOrdered By: Kimberly Sanchez on 10-06-2024 Potassium [Moles/Vol] 3.8 mmol/L Normal 3.5-5.1 [facility] Comment on above: Performed By: #### B ILTD, LIPID, LIPASE, CBC, PT, CMP, DELMI #### [address] Protein [Mass/volume] in Ser um or PlasmaOrdered By: Carlitosdarosalind Hindsr on 10-06-2024 Protein [Mass/Vol] 5.7 g/dL Low 6.4-8.9 [facility] Comment on above: Performed By: #### B ILTD, LIPID, LIPASE, CBC, PT, CMP, DELMI #### [address] Prothrombin time (PT)Ordered By: Kimberly Hindsr on 10-06-2024 PT Coag (PPP) [Time] 12.0 s Normal 9.0-12.9 [facility] Comment on above: A hematocrit value g reater than 55% may lead to inaccurate results in coagulation testing. Patients having hematocrit values >55% require a special collection tube for coagulation studies. Please contact the laboratory at [phone] for redraw instructions. Result Comment: A he matocrit value greater than 55% may lead to inaccurate results in coagulation testing. Patients having hematocrit values >55% require a special collection tube for coagulation studies. Please contact the laboratory at [phone] for redraw instructions. Performed By: #### B ILTD, LIPID, LIPASE, CBC, PT, CMP, DELMI #### [address] Serum globulin measurement b y calculation (mass/volume)Ordered By: Obtonedarosalind Koehleromar on 10-06-2024 Globulin (S) [Mass/Vol] 2.4 g/dL Normal [facility] Comment on above: Performed By: #### B ILTD, LIPID, LIPASE, CBC, PT, CMP, DELMI #### [address] Serum or plasma albumin/glob ulin mass ratioOrdered By: [employer]dah [employer]ed[employer]inomar on 10-06-2024 Albumin/Globulin [Mass ratio] 1.4 {ratio} Normal [facility] Comment on above: Performed By: #### B ILTD, LIPID, LIPASE, CBC, PT, CMP, DELMI #### [address] Serum or plasma anion gap de terminationOrdered By: Obtonedah Invested.inomar on 10-06-2024 Anion gap [Moles/Vol] 10.7 mmol/L Normal 6.0-15.0 [facility] Comment on above: Performed By: #### B ILTD, LIPID, LIPASE, CBC, PT, CMP, DELMI #### [address] Serum or plasma total choles terol/high density lipoprotein (HDL) cholesterol mass ratOrdered By: [employer]ar on 10-06-2024 Cholesterol.total/Chol esterol in HDL [Mass ratio] 2.0 {ratio} Normal <5.0 [facility] Comment on above: Result Comment: PERF ORMED BY: [place] [address] PATHOLOGIST ENVIRONMENTAL PROJECT MANAGER SHERMAN AUGUSTIN M.D. Performed By: #### B ILTD, LIPID, LIPASE, CBC, PT, CMP, DELMI #### [facility] [address] Performed By: #### B ILTD, CREAT, CBC, BUN #### [facility] [address] Sodium [Moles/volume] in Ser um or PlasmaOrdered By: Obaydah Daromar on 10-06-2024 Sodium [Moles/Vol] 133 mmol/L Low 136-145 [facility] Comment on above: Performed By: #### B ILTD, LIPID, LIPASE, CBC, PT, CMP, DELMI #### [facility] [address] Triglyceride [Mass/volume] i n Serum or PlasmaOrdered By: Obaydah Daromar on 10-06-2024 Triglyceride [Mass/Vol] 74 mg/dL 0-149 [facility] Comment on above: TRIG ATP III CLASSIF ICATIONTRIG less than 150 mg/dL NormalTRIG 150-199 mg/dL Borderline highTRIG 200-500 mg/dL High TRIG greater than 500 mg/dL Very highStandard traceable to the Center for Disease Conrtrol and Prevention (CDC) test method. MR Thoracic spine WO contras ton 06-06-2024 [place] [address] Magnetic Resonance Report Signed Patient: RADHA BARRAZA MR#: [id number] : 1945 Acct:[id number] Age/Sex: 79 / F ADM Date: 06/06/24 Loc: MRI Attending Dr: Rinku Lopez NP Ordering Physician: Rinku Lopez NP Date of Service: 06/06/24 Procedure(s): MR thoracic spine wo con Accession Number(s): [id number] cc: Rinku Lopez NP; SHARI MCKEON [place] [id number] Patient Name: RADHA BARRAZA MRN: [facility]:[id number] date: 1945 Sex: F Assigned Patient Location: MRI Current Patient Location: MRI Accession/Order Number: [id number] Exam Date: 06/06/2024 14:56 Report Date: 06/06/2024 [...] Gomez Jr., D.O.06/06/2024 2:58 PM Dictation Location: [place] [address] Electronically authenticated by: [id number] Y Date: 06/06/2024 14:58 Dictated By: Alejandro Gomez M.D. Signed By: 06/06/24 1501 DD/ 1458 TD/TT: Ice Guard Inspector: [facility] Radiology, Radiologi MD shamir - 06/06/2024 [place] [address] Magnetic Resonance Report Signed Patient: RADHA BARRAZA MR#: [id number] : 1945 Acct:[id number] Age/Sex: 79 / F ADM Date: 06/06/24 Loc: MRI Attending Dr: Rinku Lopez NP Ordering Physician: Rinku Lopez NP Date of Service: 06/06/24 Procedure(s): MR thoracic spine wo con Accession Number(s): [id number] cc: Rinku Lopez NP; SHARI MCKEON [address] [address] Patient Name: RADHA BARRAZA MRN: [id number] date: 1945 Sex: F Assigned Patient Location: MRI Current Patient Location: MRI Accession/Order Number: [id number] Exam Date: 06/06/2024 14:56 Report Date: 06/06/2024 [...] Gomez Jr., D.O.06/06/2024 2:58 PM Dictation Location: [place] [address] Electronically authenticated by: [id number] Y Date: 06/06/2024 14:58 Dictated By: Alejandro Gomez M.D. Signed By: 06/06/24 1501 DD/ 1458 TD/TT: Ice Guard Inspector: [facility] [employer] Radiology Study observation (narrative) [facility] [employer] MR Thoracic spine WO contras tOrdered By: Radiologist Radiology on 06-06-2024 [facility] [employer] Work Phone: BI MAMMOGRAM SCREENING TOMOS YNTHESIS [...] Not Available Consent Formson 07-27-2022 Consent Forms [id number] Instructions [id number]#1.[facility] Intraoperative Recordon 07-27-2022 MAGR Intraoperative Record MAGR Intra-Op Record Summary Primary Physician: Ede Ramos DO Finalized Date/Time: 07/27/22 09:45:04 Pt. Name: RADHA BARRAZA/Sex: 1945 FEMALE Med Rec #: [id number] Physician: Ede Ramos DO Financial #: [id number] Pt. Type: D Room/Bed: / Admit/Disch: 07/26/22 [...] Ede Ramos William MD Derry RN, Jania A Kvng DO Role Performed Surgeon - Primary Anesthesiologist of Field Marketing Coordinator Record Time In 07/26/22 07:39:00 07/26/22 07:39:00 07/26/22 07:39:00 Time Out 07/26/22 09:49:00 07/26/22 09:49:00 07/26/22 09:49:00 Procedure Arthroplasty Shoulder Arthroplasty Shoulder Arthroplasty Shoulder Total Reverse(Left) Total Reverse(Left) Total Reverse(Left) Last Modified By: Mode GOLDMAN, Jania Coello RN, Jania Conde RN 07/26/22 09:49:54 07/26/22 09:49:54 07/26/22 09:49:54 Entry 4 Entry 5 Entry 6 Case Attendee Fahad FRUIT PICKER, Lisa Martinez CST, CST FRUIT PICKER/CSFA, ZOE Worthy FRUIT PICKER Role Performed Scrub Personnel Scrub Personnel File Drawer Finisher Time In 07/26/22 07:39:00 07/26/22 07:39:00 07/26/22 [...] chemical sources (more content not included)... Normal [facility] Outside Recordson 07-27-2022 Outside Records [id number]#[address] [place] [address] Provider Orderson 07-27-2022 Provider Orders [id number]#1.[facility] Telemetry Stripson 3 Telemetry Strips [id number]#[address] [place] [address] Anesthesia Noteon 07-26-2022 Anesthesia Note Patient: RADHA [...] 07/26/2022 11:51 EDT] Remy Da Silva MD [facility] Anesthesia Note Patient: RADHA BARRAZA Age: [...] obstructive pulmonary disease (COPD) / SNOMED CT 09680940 / Confirmed Heart murmur / SNOMED CT 812779536 / Confirmed Hyperlipidemia / SNOMED CT 97233342 / Confirmed HTN (hypertension) / SNOMED CT 0356467073 / Confirmed Histories Family History: COPD Mother Father Procedure history: Arthroplasty of left knee (0482592041). Arthroplasty of right knee (1183066949). Carpal tunnel release (747382687). Comments: 06/29/2022 13:15 Dorota De Leon RN bilat Colonoscopy (687619153). EGD - Esophagogastroduodenoscopy (0670357237). Disorder of rotator cuff (0179828330). Comments: 06/29/2022 13:14 Dorota De Leon RN [...] Oriented. Review / Management Laboratory Results Plan [place] [employer]esthesiologists#(ASA) physical status classification: Class [...] 07/26/2022 08:23 EDT] Remy Da Silva MD [facility] Inpatient Patient Summaryon 07-26-2022 Inpatient Patient Summary [place] [id number] Patient Discharge Instructions Name: RADHA BARRAZA : 1945 Patient Address: [address] [place] [address] Primary Care Provider: Name: SHARI MCKEON After you are discharged if you find you have any questions, please, call [phone] ext [phone] to speak to a nurse. Discharge Diagnosis: [...] alcohol and/or drug addiction problems; contact the [facility] 04/10 Crisis Hotline -Text 2JHZZ jh 047482. If you received any narcotics, sedation, or [...] business decisions or sign any legal documents [facility] would like to thank you for allowing us to assist you with your healthcare needs. The following includes patient education materials and information regarding your injury/illness. RADHA BARRAZA has been given the following list of follow-up instructions, prescriptions, and patient education materials: Follow-up Instructions With: Address: When: Ede Ramos [address] [place] [address], [address] [place] [id number] Business (1) 08/03/2022 11:00 AM Medications During [...] fingers frequently (more content not included)... Normal [facility] Intraoperative Recordon 07-26-2022 MAGR Intraoperative Record MAGR Intra-Op Record Summary Primary Physician: Finalized Date/Time: 07/26/22 07:42:32 Pt. Name: RADHA BARRAZA /Sex: 1945 FEMALE Med Rec #: [id number] Physician: Ede Ramos DO Financial #: [id number] Pt. Type: D Room/Bed: / Admit/Disch: 07/26/22 [...] Warga, Laura RN Role Performed Anesthesiologist of Field Marketing Coordinator Field Marketing Coordinator Record Time In 07/26/22 07:13:00 07/26/22 07:13:00 07/26/22 07:13:00 Time Out 07/26/22 07:38:00 07/26/22 07:38:00 07/26/22 07:38:00 Procedure Interscalene Block(Left) Interscalene Block(Left) Interscalene Block(Left) Last Modified By: Kimberley Le RN, Margaret RN Klaehn, Margaret RN 07/26/22 07:39:31 07/26/22 07:39:31 07/26/22 07:39:31 Entry 4 Case Attendee Amy Bates RN Role Performed Field Marketing Coordinator Time In 07/26/22 07:13:00 Time Out 07/26/22 [...] Stretcher Post-op Destinat (more content not included)... [facility] MAGR PACU Recordon MAGR PACU Record MAGR PACU Record [facility] Primary Physician: Ede Ramos DO Finalized Date/Time: 07/26/22 10:38:28 Pt. Name: CHRISTIRADHA/Sex: 1945 FEMALE Med Rec #: [id number] Physician: Ede Ramos DO Financial #: [id number] Pt. Type: D Room/Bed: / Admit/Disch: 07/26/22 05:52:10 - Institution: PACU Case Times MAGR Entry 1 In PACU I 07/26/22 09:51:00 Discharge from PACU 07/26/22 10:35:00 I Last Modified By: Warner Bolton RN 07/26/22 10:38:23 Finalized By: Warner Bolton RN Document Signatures Signed By: Warner Bolton RN 07/26/22 10:38 [facility] MAGR Postoperative Recordon 07-26-2022 MAGR Postoperative Record MAGR Phase II Record Summary Primary Physician: Ede Ramos DO Finalized Date/Time: 07/26/22 12:01:17 Pt. Name: LIV BARRAZACECILIA Dangelo/Sex: 1945 FEMALE Med Rec #: [id number] Physician: Ede Ramos DO Financial #: [id number] Pt. Type: D Room/Bed: / Admit/Disch: 07/26/22 [...] Signed By: Annamarie Samuels RN 07/26/22 [facility]01 [facility]-26-[facility]22 MAGR Preoperative Record MAGR Pre-Op Record Summary Primary Physician: Ede Ramos DO Finalized Date/Time: 07/26/22 07:44:03 Pt. Name: RADHA BARRAZA BRAD Dangelo/Sex: 1945 FEMALE Med Rec #: [id number] Physician: Ede Ramos DO Financial #: [id number] Pt. Type: D Room/Bed: / Admit/Disch: 07/26/22 [...] pacemaker/defibillator or sleep apnea. Finalized By: Kimberley eL RN Document Signatures Signed By: Kimberley Le RN 07/26/22 07:44 Normal [facility] Operative Report - Surgeon/P pablo 07-26-2022 Operative [...] Estimated blood loss: 50 Complications: None Findings: Dlzy-ib-fjgs in the glenohumeral joint Procedure summary: Patient [...] on: 07/26/2022 09:35 EDT] Ede Ramos DO [facility] Patient Handouton 07-26-[address] HUDDLESTONS POST OPERATIVE SHOULDER INSTRUCTIONS SURGEONS WRITTEN INSTRUTCTIONS: [...] or concerns, please call the office at [phone] 7. Follow up as scheduled [facility] XR Shoulder 1 View Lefton XR [...] MD 07/27/22 4:01 pm Technologist: JORDON RUVALCABA [facility] Comment on above: Order Comment: chey lt status post shoulder replacement Progress Note - Nurseon 07-12 Progress Note - Nurse Pre-op call made t o pt. Pt states understanding of arrival time of 0600 on 07/26/22 and NPO after MN. [Electronically Signed on: 07/23/2022 09:27 EDT] Shantel Gonsalez RN L [Verified on: 07/23/2022 09:27 EDT] Shantel Gonsalez RN L [facility] Coding Summaryon 07-02-2022 Coding Summary [employer] 64 JkdpnyenXSr1uTl+PGhlYWQ+PE1 HHWHiC43mmDPxgW6RL4yDHS8KQZ GOTYWSEX7DHH3ltQJ3EQpoB7Ujq iAv GulamTIuAI92YZn8QZM2mHhhPXq kaC8yoMFbY6l6QqYyHG64dG14XH hjYAOvGaU0RpMedcmksDHo P0fkAkFhiXJbOth+PHRhYmxlIHd qXVSqBQweBKAlTqQxrCtpCN8jTz 9yZGVyLWNvbGxhcHNlOiBj c9wsBZLwIOtqWI2xwVoqN3KiuLU 5IFDqm1u2Dz39gLC+SGLdEJC9rS ozNLmqx770ZtWmh6idFXH0 cRLnKXqgGNU8B35ds6Y1GGXqPSO bPCX6jQO9gA2dqHfbakwkW1BblV RpUkZ0IOO3uVDawJ9fjXto bdegdW8dFuv+H15NYD8EFQMELB8 XUcp3K9GmJfclxCZ+KO97LOMrNA 45uCDegAAsz5fldFi3FoFw CWQkSDC8mPgzZMlmz4WtLQBcU27 clCKfp6G4BTSklZqysXJmFjEenY H2pQ1zPKdoikesv6ipcjdx Hbbqu4oknn70eN88K50gNBttOSW lINK0IWZpUBVbqFucen6yqE4jSl 8+HInwz3fwh3fehQa3DhPd BIFazoDunEidHCW6v1CkOy56K9P lwFsvn4AxDwh5cx81pLWjj3A6zH K7UUnqAVElfW4yPTfdNwS2 CPXpZlDnbR01bACiUBqcVz2oxTz xtEawZN7jCYFtimmpURLvnJ6tLE CfuYDsuYtbOV4qYMYlejza w536LsSoJVJ4DQWniDIrD0BloH7 vHqIcOSKlOIVfO7SicTNiIGtiV7 41FEjjHuQ4UKIwgzXeT7Ry RWYxsNwtLeF6z6Y5Qk6Yt4Ngygr uUUR8MXslTJH1FiXuDhCcAtQ0I2 OuYxb5STLqxBwcMO8tN9Rp HUXjzqgfpeoeuZZ3OUVdQOGjvX1 6tWUfFEukJm1yv5R2x275XJUnOQ PdoX77Jb6ajTegQFWtqSGU jF8pxmsxu2nbiupmHsSuAKDwYAd 3JXj0BAJdbXtmUuWbVYZ3EhX7AE M0iVEhbE8qgKyvmqkleX8b Oyc+Y39ebR2aWCD0WZN0gcyrCYE umxXwAA05OM82I9BuOogmyELghW U+PBKoczZzbPhxNS4iZxOe p4oda6PwCTyoQ8IlWDWbFLvqZus 7QTXhBAU2lBM6dY7oCQGmECnca0 H4pQC9D1OdayVgfz6at0el STFsINcxE79foVRkv2E8JYStbUP 1KMIiiXonXeNxoE81Kwy+PGNvbG naw8GtEjkfe3atq6etgTt5 AuWrCQNkvrIejHwsFTF4j3PeDb4 8A15oWTcdTEGsNCHwCFCaGPTmuT eqtt1myT3bYn2+PGNvbCB3 sIP4iB4zTLIxAcI7GNmsO175YsC hrJMrMrzza9htt3wdtHg7PzRcZT MlbfInzZoxLHN3p3QlHf56 S86rKWqwSPBoYFAjEMTzHCJrsXw jgc4ueX6ePl5+XV7yo5oqxr02uK 48dHI+NMSkTUF1qSwiNRxg OCGxbU5nULtdMdV9MJQhHtEwfH0 8vDQrRPneGx9amBtsmYyhCP8cMM Qeicjbf168MxAoi2qxBGTv yEYbFZauSYV6C04kd5T7KISpDOA dWVL1qMA8zU0tnDhoccaynJNjsQ gucmQhmWtgCEjiRScxH978 IHRvcDsnPlBhdGllbnQgTmFtZTo 7Q8GvThs0YKEzsMthLH2zbVZdAM czKh5mgTludOrqZC5gSESs daqtn731XuWmh5zsJOJelFHvJBv jZMI2Y67kz1Z9LFKaQVGaRPY2gO S3fV7muUsaqyuumAWwoAou lzZebEmlGTyuNAwfE140JUMciEw xNtJgvtXmYLRpwCO0MR28WV73zM Gjd8S0qJK6C2KaHLCoxmkw mwtrvIS7DDPmQBDxeS87Vu9ncEy tWj9vTPXdFFW6PMTmaOMrQ3IuqY 9sXnAbTAHiGOUgM6FafOLx NCozD764POfbWoS6EPRsetTlR0I hLJLlzMdxTxM7w1V0Ar4VV2M3DJ 33UH30hSGbh8A3rNM8G8Uz HIBwjbcbyflxgTZ7KLDkBSNeoH4 5Ga9sqDzqLt8hOSBnILW0FEIxwH AmS6NhqZ9kHcNwYVWqOFXr K6ZlsXGkSEtwD190FGsvSiK5RMC scnVhI5ZzPJAdiUqfDuO1c9H5Av 6RMMg3XZ80BV78qEQlx9Q5 hQW1M2SpNVYsohwkejbxwTV5WWS dPCLdnO71Ah7riQrwGo2sIQJnQR B7VJHfyWIdR1DfxU3oKuCa UQLqMZIxV1UbuYVkAQpcZ908XTo vMwO4UGGdbpJwE6SxIPKwdTcbIc J1c3D5Kh5FCETdWP09TZI4 gFR0RS48VR71Y8FhKrxdoXKcsEJ +PHRhYmxlIHdpZHRoPScxMDAlJy GjdNjlXN8vQx9jQIGpECXg bJzxfQLvBsRnm3dwOCIuLMtrJV0 umMnnI3ByjUA9QZTgi7k2Ot98F2 5xT5TvoXA+WNKhjQN1dWW0 qZ9kJpUnMhT5QGffG604YySdjXW fGgxoy6pcp4cmkHf9YuC3PZHvdr VzePgaAGO6u4XiOe26T93c IHdpZHRoPSIxNSUiIHZhbGlnbj0 ahL2vUg2+CWLbbVK6gYI5lI9pLw FrTyX6ZDqpJ935BjMhwVTf Rrbhi0xfa5yxsSu5TqZfRMRrygY vqJcgLUK9i3DsIc45V1JqpCpyj3 XhKua2ch85xIMgd4D6rAA6 S4QyWRTqivkbuRBbaWwbPQ1uNWV xkltsYAWzyF6iECIsV2r7YdFzKv H8OIwbP2JjgsU9WOGuvDBr FTkzBLL5G49rv7Y1ADBsFASbDKB 6tTM5cS2odTmynidrmAPceZjhuo LxdVqhLZxhSKxfJ779AOTc wBvtMEAkuS8uSTKomPThdBtqRU4 wNTBpbjsnPldPVFQsIEpJTEwgRU 7GRKb6M7CgCgt1XDSqzNup VA9mnOXlGVidVx5qhUuovBheLF1 zJDJpklomWAImwC6qDNFzzBFwlV cdKZ3lNOLpuwzns877ZnMf UXG2CSKzfSOrD0ZkrQ3dBgIiYIC iZPJrG9BbrIMoHTltR708PGvaOy Q7RRTmdvXfJ1NpGTHiyZxf IjV4p0J8Ml0xKt8hRe3eZVQ0EY0 1WU09aWPeg8B0wGX1I2NzRNOvfb ucuqsplAC9VPXdMLHrpG62 aWNpTIbdVa1zm4I5u509YWAmKLU flV33Ww8vtSpyMEVagXPCrC8yor dpc5biwvneVzDyYVKjYPa9 FSu4YRObnPdmQbXjJUU8GfS4KQI 7oOAtaM7seZcijokkcB0eHnw+Nz vrYCEasxB1T8TkSvv2SYSd pKypCV5doTCnCDobFt4dyUdntHl mUG8eLEQdmaqyLOLoiM6nHNGvzT HzzGpnVX7nYHOcclgxw038 FiMjSZZ9DWAazTJdB6SheC9hPgD cYNCvSFDwU2OsgJRuTDqpQ664QP kxMqO7QMRhbdOoF9CrICQq wSqfAyC4s8K2Me1CKL2PVPZ3O6O tApz0OUClaEqzHO9fpBCwZZifKv 4apPbjoFkoKN4tRRPascbz PRCaiJ9qRAKwqBFvtHtwCI5sICX cypybt364EfSvFWF0BCFgrVAqP9 OazT2hDnTqGTTjUOKgE8Ox iHLgPMehF559KGyvJyG5QSZeiiM uF1ZbETXprGboGqX9w7R9Cr9YJO wvdGQ+DY12db11Z4HeAjqu Lwp5OSMyPHV7gQV6lB8gTWWzFOh yn4G1iOW5L3JvkbCwxg1db8dfLA AeBKjtF27dyQWns9O0MGLg uUA4SVEspDqkQrRytS84Joj+PGN fmYcsn2JxSkhuw4zaj5ntzYd7Vd VhPMBdsrLyuZqrSJF6r7Ai De66A91qJTutGDWlZXFbXFOeGQU rxUgroe4dpD6lVl0+QBYahJM0bB M8eR3zQrQfBtY7XQjaD928 QoQngLUdZztgi3hcd4iptDu1BdR hXHPcmcRyeGwgPDK7b0FyJd83L8 KavMpjj8EjXcc5wu17eZIy k4S6rMC5Z8PnICHobgosoJAovRz qKF0eQCIhiqtaMISutQ7vRJApH9 d9UfMvLsD6TWijO0WqhzY8 SKCkzWEiFUOvfFXIbJ6plxdto3l fnemwNdNoBIFqHAa5GJd0RMYadT tuNgIxIQQ3UaR8DUT8lTOj vA0jbRqqgstphN9vBsp+AZe1c6a uuPHgUD1vnOD8CE11GI31uQTfv2 G9yNY8Z9UzOBJijdjbdzwl hBP0DWSqBSEqcJ12Dt1wjEcqVi9 iZYGiRAE6ZUZtcDNjD2KaaS1rOw FnPCUcJJBiQ2CluQCbZNxe H301QPniXvL1XCQvxcPtH0XlYEO clTqcHkN2f7I7Kg4TET73DX27SS 46pAGpl7O1vKC3I8LwCMMv swoiujhjkYC0SFFdWQCkcP36Jv5 xiBenKc1nLMAjZUP1TJSspUZjR4 EhrJ5yFyLcEYFwWHQcM2Zg tXAvMNejZ022BYxqUgU6XCLlihL oT2UyJWRbmCzuQwN6b6U0De0EBy 94KP91MP13qDHbi8H0pNF8 O3VsOGVfkovawvghfMS1CSGqAUD geD80Pb6hbXryZr7jVBHpRKM7TB AbsJQuJ4IoaR5aXwMoCKBz FDRiE6BlxTVnSBtfC297TAdhLsS 8XWZsbrIvN7PzXBEfzBeeSfJ8g9 T9Te0HMOqlwxz1W8UnPebh dHI+IL47RENyKZ28bGUzuJYnk9a miAj8GnTxOEYtAGI1bBnhXPzdg2 ZjVNUtA13ctLKze2C1DIIf bGx (more content not included)... [facility] C MRSA Screenon 06-30-2022 C MRSA Screen Negative [facility] Comment on above: Performed By: #### 1 [id number] ####[facility] (DEFAULT)[address] [place] [address] Progress Note - Nurseon 06-12 Progress Note - Nurse Dr. Castro reviewed PAT notes for upcoming surgery 07/26/2022. No new orders at this time [Electronically Signed on: 06/30/2022 11:45 EDT] Annamarie Samuels RN [Verified on: 06/30/2022 11:45 EDT] Annamarie Samuels RN [facility] Provider Orderson 06-30-2022 Provider Orders [id number] [facility] .Auto Diff 1on 06-29-2022 Auto Hinds % 10 % Normal 03-25 [facility] Comment on above: Performed By: #### 7 [id number], [id number], [id number] ####[facility] (DEFAULT)[address] [place] [address] 92641 Baso Abs# 0.0 x10 Normal 0.0-0.2 [facility] Comment on above: Performed By: #### 7 [id number], [id number], [id number] ####[facility] (DEFAULT)[address] [place] [address] 55181 Basophils/100 WBC (Bld) 0.7 % Normal 0.2-2.0 [facility] Comment on above: Performed By: #### 7 649586, [id number], [id number] ####[facility] (DEFAULT)[address] [place] [address] 65890 Eos Abs# 0.6 x10 High 0.0-0.4 [facility] Comment on above: Performed By: #### 7 [id number], [id number], [id number] ####[facility] (DEFAULT)[address] [place] [address] 55854 Eosinophils/100 WBC (Bld) 8.5 % High 0.9-4.0 [facility] Comment on above: Performed By: #### 7 943985, [id number], [id number] ####[facility] (DEFAULT)[address] [place] [address] 97128 Lymph Abs# 1.6 x10 Normal 1.3-2.9 [facility] Comment on above: Performed By: #### 7 536855, [id number], [id number] ####[facility] (DEFAULT)[address] [place] [address] 03224 Lymphocytes/100 WBC (Bld) 24 % Normal 14-48 [facility] Comment on above: Performed By: #### 7 327756, [id number], [id number] ####[facility] (DEFAULT)[address] [place] [address] 12439 Hinds Abs# 0.7 x10 Normal 0.0-0.8 [facility] Comment on above: Performed By: #### 7 777425, [id number], [id number] ####[facility] (DEFAULT)[address] [place] [address] 79068 Neut Abs# 3.8 x10 Normal 1.5-9.2 [facility] Comment on above: Performed By: #### 7 012756, [id number], [id number] ####[facility] (DEFAULT)[address] [place] [address] 22699 Neutrophils/100 WBC (Bld) 57 % Normal 44-88 [facility] Comment on above: Performed By: #### 7 296242, [id number], [id number] ####[facility] (DEFAULT)[address] [place] [address] 60747 BMP Standardon 06-29-2022 eGFR Non AA 33 mL/min/1.73m2 Invalid Interpretation Code [facility] Comment on above: Performed By: #### 7 194492, [id number], [id number] ####[facility] (DEFAULT)[address] [place] [address] eGFR AA 40 mL/min/1.73m2 Invalid Interpretation Code [facility] Comment on above: Performed By: #### 7 981582, [id number], [id number] ####[facility] (DEFAULT)[address] [place] [address] 26243 Anion gap [Moles/Vol] 8.9 mmol/L Normal 5.0-19.[address] [facility] Comment on above: Performed By: #### 7 850171, [id number], [id number] ####[facility] (DEFAULT)[address] [place] [address] 56465 Calcium [Mass/Vol] 9.3 mg/dL Normal 8.9-10.3 [facility] Comment on above: Performed By: #### 7 451884, 90709471, [id number] ####[facility] (DEFAULT)[address] [place] [address] 63927 Chloride [Moles/Vol] 102 mmol/L Normal 101-111 [facility] Comment on above: Performed By: #### 7 820501, 40455531, [id number] ####[facility] (DEFAULT)[address] [place] [address] 23292 CO2 [Moles/Vol] 28 mmol/L Normal 21-32 [facility] Comment on above: Performed By: #### 7 713649, 53512312, [id number] ####[facility] (DEFAULT)[address] [place] [address] 00174 Creatinine [Mass/Vol] 1.53 mg/dL High 0.60-1.[address] [facility] Comment on above: Performed By: #### 7 119970, 47656988, [id number] ####[facility] (DEFAULT)[address] [place] [address] 40691 Glucose [Mass/Vol] 107.0 mg/dL Normal 74.0-118.0 [facility] Comment on above: Performed By: #### 7 809666, [id number], [id number] ####[facility] (DEFAULT)[address] [place] [address] 32886 Osmolality 279 mOsm/L Invalid Interpretation Code [facility] Comment on above: Performed By: #### 7 450380, 04508963, [id number] ####[facility] (DEFAULT)[address] [place] [address] 78744 Potassium [Moles/Vol] 3.9 mmol/L Normal 3.6-5.[address] [facility] Comment on above: Performed By: #### 7 698359, 60100050, [id number] ####[facility] (DEFAULT)[address] [place] [address] 54024 Sodium [Moles/Vol] 135.0 mmol/L Low 136.0-144 . 0 [facility] Comment on above: Performed By: #### 7 891512, [id number], [id number] ####[facility] (DEFAULT)[address] [place] [address] 54503 Urea nitrogen [Mass/Vol] 36 mg/dL High 8-26 [facility] Comment on above: Performed By: #### 7 892096, 72813309, [id number] ####[facility] (DEFAULT)[address] [place] [address] 91568 Urea nitrogen/Creatinine [Mass ratio] 23.5 mg/mg High 4.6-16.2 [facility] Comment on above: Performed By: #### 7 283885, 07437441, [id number] ####[facility] (DEFAULT)[address] [place] [address] CBC w/ Auto Diffon 3 Erythrocyte distribution width (RBC) [Ratio] 12.8 % Normal 11.5-15.0 [facility] Comment on above: Performed By: #### 7 492394, [id number], [id number] ####[facility] (DEFAULT)[address] [place] [address] Hematocrit (Bld) [Volume fraction] 36.4 % Normal 33.7-40.4 [facility] Comment on above: Performed By: #### 7 997322, 81826437, [id number] ####[facility] (DEFAULT)[address] [place] [address] Hemoglobin (Bld) [Mass/Vol] 12.2 g/dL Normal 11.3-15.9 [facility] Comment on above: Performed By: #### 7 803761, 57381049, [id number] ####[facility] (DEFAULT)[address] [place] [address] Man Diff? Auto Invalid Interpretation Code [facility] Comment on above: Performed By: #### 7 259032, 55115166, [id number] ####[facility] (DEFAULT)[address] [place] [address] 54035 MCH (RBC) [Entitic mass] 32 pg Normal 24-34 [facility] Comment on above: Performed By: #### 7 180410, 08454071, [id number] ####[facility] (DEFAULT)[address] [place] [address] 25892 MCHC (RBC) [Mass/Vol] 33 g/dL Normal 26-[address] [facility] Comment on above: Performed By: #### 7 054262, 30412206, [id number] ####[facility] (DEFAULT)[address] [place] [address] 74889 MCV (RBC) [Entitic vol] 97 fL Normal 81-100 [facility] Comment on above: Performed By: #### 7 348922, 30196811, [id number] ####[facility] (DEFAULT)[address] [place] [address] 65000 Platelet 336 x10 Normal 138-427 [facility] Comment on above: Performed By: #### 7 538616, 03689268, [id number] ####[facility] (DEFAULT)[address] [place] [address] 26329 Platelet mean volume (Bld) [Entitic vol] 7.2 fL Normal 6.3-10.2 [facility] Comment on above: Performed By: #### 7 120728, 03393749, [id number] ####[facility] (DEFAULT)[address] [place] [address] RBC 3.77 x10 Normal 3.70-5.30 [facility] Comment on above: Performed By: #### 7 192802, 75761883, [id number] ####[facility] (DEFAULT)[address] [place] [address] 51114 WBC 6.7 x10 Normal 3.5-10.5 [facility] Comment on above: Performed By: #### 7 770728, 77613239, [id number] ####[facility] (DEFAULT)[address] [place] [address] UA w Culture if Ind Standard on 06-29-2022 Breakpoint UA [facility] Comment on above: Performed By: #### 1 [id number] #### [facility] (DEFAULT) [address] [place] [address] Color (U) Yellow Normal [facility] Comment on above: Performed By: #### 1 [id number] #### [facility] (DEFAULT) [address] [place] [address] Culture? Not Indicated Invalid Interpretation Code [facility] Comment on above: Result Comment: Resu lt created by rule GL_MAGR_ADD_UA_CULT1 Performed By: #### 1 [id number] #### [facility] (DEFAULT) [address] [place] [address] 34513 Glucose (U) [Mass/Vol] Negative Normal [facility] Comment on above: Performed By: #### 1 [id number] #### [facility] (DEFAULT) [address] [place] [address] 23062 Ketones Ql (U) Negative Normal [facility] Comment on above: Performed By: #### 1 [id number] #### [facility] (DEFAULT) [address] [place] [address] 66990 Micro? Not Indicated Invalid Interpretation Code [facility] Comment on above: Result Comment: Resu lt created by rule GL_MAGR_ADD_UA_MICRO Performed By: #### 1 [id number] #### [facility] (DEFAULT) [address] [place] [address] UA Bilirubin Negative Normal [facility] Comment on above: Performed By: #### 1 [id number] #### [facility] (DEFAULT) [address] [place] [address] 54866 UA Blood Negative Normal NEGATIVE [facility] Comment on above: Performed By: #### 1 [id number] #### [facility] (DEFAULT) [address] [place] [address] 03033 UA Clarity CLEAR Normal CLEAR [facility] Comment on above: Performed By: #### 1 [id number] #### [facility] (DEFAULT) [address] [place] [address] 47509 UA Leuk Est Negative Normal NEGATIVE [facility] Comment on above: Performed By: #### 1 [id number] #### [facility] (DEFAULT) [address] [place] [address] 63082 UA Nitrite Negative Normal NEGATIVE [facility] Comment on above: Performed By: #### 1 [id number] #### [facility] (DEFAULT) [address] [place] [address] 52103 UA pH 6.5 Normal 5-8 [facility] Comment on above: Performed By: #### 1 [id number] #### [facility] (DEFAULT) [address] [place] [address] 65786 UA Protein Negative Normal NEGATIVE [facility] Comment on above: Performed By: #### 1 [id number] #### [facility] (DEFAULT) [address] [place] [address] UA Spec Grav 1.010 Normal 1.001-1.03 5 [facility] Comment on above: Performed By: #### 1 [id number] #### [facility] (DEFAULT) [address] [place] [address] UA Urobilinogen 0.2 mg/dL Normal 0.2-1.0 [facility] Comment on above: Performed By: #### 1 [id number] #### [facility] (DEFAULT) [address] [place] [address] 65425 Urine Source Clean Catch Normal [facility] Comment on above: Performed By: #### 1 [id number] #### [facility] (DEFAULT) [address] [place] [address] 67167 MRI Shoulder w/o Lefton 04-15 MRI Shoulder [...] by Adarsh Adams on 05/11/2022 1041 Normal [facility] Specialist SCREENING MAMMOGRAM W/ARABELLA, BILATERAL*on 11-20-2021 [...] VERY IMPORTANT TO YOUR HEALTH. THE CURRENT [employer] AND [employer] GUIDELINES RECOMMENDS ANNUAL MAMMOGRAPHY BEGINNING AT AGE 40 THIS FACILITY USES A REMINDER SYSTEM TO ENSURE ALL PATIENTS RECEIVE REMINDER NOTIFICATIONS AT THE APPROPRIATE TIME BASED ON THE RECOMMENDATIONS OF THIS EXAM. Report reported and signed by Alejandro Forte on 11/20/2021 0949 Normal [facility] Comprehensive Metabolic Pane george 06-10-2021 Albumin [Mass/Vol] 4.2 g/dL Normal 3.6-5.1 [facility] Comment on above: Performed By: #### C JARVIS DONIS #### [facility] [address] [place], [place] [id number] Albumin/Globulin [Mass ratio] 1.7 {ratio} Normal 1.0-2.5 [facility] Comment on above: Performed By: #### C JEWELS LIPTeresa #### [facility] [address] [place], [place] [id number] ALP [Catalytic activity/Vol] 82 U/L Normal 35-119 [facility] Comment on above: Performed By: #### C JEWELS LIPD #### [facility] [address] [place], [place] [id number] ALT [Catalytic activity/Vol] 15 U/L Normal 6-33 [facility] Comment on above: Result Comment: 02/11 Female reference range changed. Performed By: #### C JEWELS LIPD #### [facility] [address] [place], [place] [id number] Anion gap [Moles/Vol] 15 mmol/L Normal 12-20 [facility] Comment on above: Result Comment: Effe ctive 03/19/2019 reference range changed. Performed By: #### C JEWELS LIPD #### [facility] [address] [place], [place] [id number] AST [Catalytic activity/Vol] 21 U/L Normal 9-34 [facility] Comment on above: Performed By: #### C JEWELS LIPD #### [facility] [address] [place], [place] [id number] BUN/CREA 28 Ratio High 6-22 [facility] Comment on above: Performed By: #### C JEWELS LIPTeresa #### [facility] [address] [place], [place] [id number] Calcium [Mass/Vol] 9.3 mg/dL Normal 8.6-10.2 [facility] Comment on above: Performed By: #### C JEWELS LIPD #### [facility] [address] [place], [place] [id number] Chloride [Moles/Vol] 106 mmol/L Normal 98-107 [facility] Comment on above: Performed By: #### C JEWELS LIPTeresa #### [facility] [address] [place], [place] [id number] CO2 [Moles/Vol] 24 mmol/L Normal 20-31 [facility] Comment on above: Performed By: #### C JEWELS LIPD #### [facility] [address] [place], [place] [id number] Creatinine [Mass/Vol] 1.1 mg/dL Normal 0.6-1.4 [facility] Comment on above: Performed By: #### C JEWELS LIPTeresa #### [facility] [address] [place], [place] [id number] eGFRAA 58 mL/min/1.73m2 Low >60 [facility] Comment on above: Performed By: #### C JEWELS LIPD #### [facility] [address] [place], [place] [id number] eGFRNAA 48 mL/min/1.73m2 Low >60 [facility] Comment on above: Performed By: #### C JEWELS LIPD #### [facility] [address] [place], [place] [id number] Globulin (S) [Mass/Vol] 2.5 g/dL Normal 1.9-3.7 [facility] Specialist Comment on above: Performed By: #### C JEWELS LIPD #### [facility] [address] [place], [place] [id number] Glucose [Mass/Vol] 94 mg/dL Normal 65-99 [facility] [place] [employer] Comment on above: Result Comment: For FASTING Glucose --- ADA reference ranges: Normal 65-99 mg/dl Prediabetes 100-125 Diabetes >/= 126 Performed By: #### C JEWELS, LIPD #### [facility] [address] [place], [place] [id number] Potassium [Moles/Vol] 4.4 mmol/L Normal 3.5-5.5 [facility] Comment on above: Performed By: #### C JEWELS, LIPD #### [facility] [address] [place], [place] [id number] Protein [Mass/Vol] 6.7 g/dL Normal 6.1-8.1 [facility] [employer] Comment on above: Performed By: #### C JEWELS, LIPD #### [facility] [address] [place], [place] [id number] Sodium [Moles/Vol] 141 mmol/L Normal 135-146 [facility] [place] [employer] Comment on above: Performed By: #### C JEWELS, LIPD #### [facility] [address] [place], [place] [id number] TBIL <0.3 Normal [facility] Comment on above: Performed By: #### C JEWELS, LIPD #### [facility] [address] [place], [place] [id number] Urea nitrogen [Mass/Vol] 32 mg/dL High 7-25 [facility] Specialist Comment on above: Performed By: #### C JEWELS LIPD #### [facility] [address] [place], [place] [id number] Lipid Panelon 06-10-2021 Cholesterol [Mass/Vol] 237 mg/dL High 125-200 [facility] Comment on above: Result Comment: Low risk < 200mg/dL Borderline risk 201-239 mg/dl High risk > or equal to 240 Performed By: #### C JEWELS, LIPD #### [facility] [address] [place], [place] [id number] Cholesterol in HDL [Mass/Vol] 100 mg/dL Normal >40 [facility] Manager [employer] Comment on above: Result Comment: High Cardiovascular Risk HDL <40 mg/dL Low Cardiovascular Risk HDL > or equal to 60 mg/dl Performed By: #### C MP, LIPD #### [facility] [address] [place], [place] [id number] Cholesterol in LDL [Mass/Vol] 124 mg/dL Normal [facility] Comment on above: Result Comment: LDL ATP III CLASSIFICATION LDL less than 100 mg/dl Optimal LDL 100-129 mg/dl Near or above optimal LDL 130-159 Borderline high LDL 160-189 High LDL greater than 189 mg/dl Very High Performed By: #### C MP, LIPD #### [facility] [address] [place], [place] [id number] Cholesterol in VLDL [Mass/Vol] 13 mg/dL Normal [facility] Comment on above: Performed By: #### C MP, LIPD #### [facility] [address] [place], [place] [id number] Cholesterol.total/Chol esterol in HDL [Mass ratio] 2 {ratio} Normal [facility] Comment on above: Performed By: #### C MP, LIPD #### [facility] [address] [place], [place] [id number] Triglyceride [Mass/Vol] 67 mg/dL Normal 30-150 [facility] Specialist Comment on above: Result Comment: TRIG ATPIII CLASSIFICATIONS TRIG less than 150 mg/dl Normal TRIG 150-199 mg/dl Borderline High TRIG 200-500 mg/dl High TRIG greather than 500 mg/dl Very High Performed By: #### C MP, LIPD #### [facility] [address] [place], [place] [id number] ECHOCARDIO M/2D COMPLETEon 0 10-24-2020 ECHOCARDIO M/2D COMPLETE Patient: RADHA BARRAZA Exam Date: 10/24/2020 : 1945 Gender:F Ordering : DR SHARI MCKEON M.D. Admission #: [id number] Family : Order #: [id number] CLICK HERE TO VIEW EXAM ECHOCARDIOGRAM REPORT [...] Area(A4C): 13.90 cm2 Left Atrium Systolic Volume(A2C): 09808 mm3 Left Atrium Systolic Volume(A4C): 96366 mm3 Mitral Valve MV E to A Ratio: 1.10 Mitral Valve A-Wave Peak Velocity: 68.60 cm/s Mitral Valve E-Wave Peak Velocity: 74.50 cm/s Deceleration Time: 259 ms Right Ventricle Aorta AO Root Diam: 2.60 cm Aortic Valve Peak Velocity (Antegrade Flow): 161.00 cm/s, 230.00 cm/s AoV Area (Peak Daniel): 1.93 cm2 AoV Area (VTI): 1.90 cm2 Deceleration Glenn: 1880 mm/s2 Pressure Half-Time: 528 ms Peak [...] M.D. on 10/24/2020 at 19:17 Normal [facility] HEMOGLOBINon 09-30-2020 Hemoglobin (Bld) [Mass/Vol] 12.3 g/dL Normal 12.0-16.0 [facility] Comment on above: Performed By: #### H GB #### [facility] [address] [place] [address] Kandy H PYLORI TISSUEon 02-01-2020 H PYL TISSUE, UREASE Negative Normal NEGATIVE [facility] Comment on above: Performed By: #### H GB #### [facility] [address] [place] [address] Geraldo Gaitan COVID-19 PCRon 01-27-2020 SARS-CoV-2 (COVID-19) RNA VIVIENNE+probe Ql (Unsp spec) Not detected Normal Not Detected [facility] Comment on above: Result Comment: This nucleic acid amplification test was developed and its performance characteristics determined by [employer] Nucleic acid amplification tests include PCR and [...] Performed By: #### C VDSTAT, CVDPCR #### [facility] [address] [place] [address] Geraldo Gaitan PRIORITY COVID PROCESSINGon 01-27-2020 Comment Comment Normal [facility] Comment on above: Result Comment: Rece ived Performed By: #### C VDSTAT, CVDPCR #### [facility] [address] [place] [address] Geraldo Gaitan CULTURE BLOODon 01-08-2020 Microscopic examination [...] F Trimethoprim/Sulfamethoxazo le <=20 S F [facility] [facility] Comment on above: Performed By: #### H GB #### [facility] [address] [place] [address] Geraldo Gaitan BLOOD CULTURE ID PANELon A. baumannii Not detected Normal [facility] Comment on above: Performed By: #### B MIRYAM #### [facility] [address] [place], [place] [address] Geraldo Kandy BCID CONTROLS PASSED Normal [facility] Comment on above: Performed By: #### B MIRYAM #### [facility] [address] [place] [address] Geraldobhumi Charlesen BCIDBTHD BLOOD CULTURE BOTTLE INFORMATION Normal [facility] Comment on above: Performed By: #### B MIRYAM #### [facility] [address] [place] [address] Geraldo Kandy BCIDHD1 ANTIMICROBIAL RESIST ANCE GENES [facility] Comment on above: Performed By: #### B MIRYAM #### [facility] [address] [place] [address] Geraldo Kandy BCIDHD2 SEE BELOW [facility] Comment on above: Result Comment: KPC- carbapenem resistance gene, mecA- methecillin resistance gene, van A/B- vancomycin resistance gene Note: Antimicrobial resitance can occur via multiple mechanisms. A Not Detected result for the [employer] antomicrobial resistance gene assays does not indicate antimicrobial susceptibility. Subculturing is required for specis identificationand susceptibility testing of isolates. Performed By: #### B MIRYAM #### [facility] [address] [place] [address] Geraldo Kandy BCIDHD3 Positive [facility] Comment on above: Performed By: #### B MIRYAM #### [facility] [address] [place] [address] Geraldo Kandy BCIDHD3 Negative [facility] Comment on above: Performed By: #### B MIRYAM #### [facility] [address] [place] [address] Geraldo Kandy BCIDHD5 YEAST Normal [facility] Comment on above: Performed By: #### B MIRYAM #### [facility] [address] [place] [address] Geraldo Kandy BCIDHD6 SEE BELOW [facility] Comment on above: Result Comment: Note : All genus and species BCID [employer] results will be verified post subculturing via Maldi-Tof MS testing methodology. Performed By: #### B MIRYAM #### [facility] [address] [place] [address] Geraldo Kandy Bottle Set: Set 2 [facility] Comment on above: Performed By: #### B MIRYAM #### [facility] [address] [place] [address] Geraldo Kandy Bottle: Aerobic Normal [facility] Comment on above: Performed By: #### B MIRYAM #### [facility] [address] [place] [address] Geraldo Kandy Naomi albicans Not detected Normal [facility] Comment on above: Performed By: #### B MIRYAM #### [facility] [address] [place] [address] Geraldo Kandy Naomi glabrata Not detected Normal [facility] Comment on above: Performed By: #### B MIRYAM #### [facility] [address] [place] [address] Geraldo Kandy Naomi Krusei Not detected Normal [facility] Comment on above: Performed By: #### B MIRYAM #### [facility] [address] [place] [address] Geraldo Kandy Naomi Parapsilosis Not detected Normal [facility] Comment on above: Performed By: #### B MIRYAM #### [facility] [address] [place] [address] Geraldo Kandy Naomi Tropicalis Not detected Normal [facility] Comment on above: Performed By: #### B MIRYAM #### [facility] [address] [place] [address] Geraldo Kandy E. Cloacae complex Not detected Normal [facility] Comment on above: Performed By: #### B MIRYAM #### [facility] [address] [place] [address] Geraldo Kandy Enterobacteriaceae Detected Invalid Interpretation Code [facility] Comment on above: Performed By: #### B MIRYAM #### [facility] [address] [place] [address] Geraldo Kandy Enterococcus Not detected Normal [facility] Comment on above: Performed By: #### B MIRYAM #### [facility] [address] [place] [address] Geraldo Kandy Escheria coli Detected Normal [facility] Comment on above: Performed By: #### B MIRYAM #### [facility] [address] [address] Geraldobhumi Gaitan K. oxytoca Not detected Normal [facility] Comment on above: Performed By: #### B MIRYAM #### [facility] [address] [address] Geraldo Kandy K. pneumoniae Not detected Normal [facility] Comment on above: Performed By: #### B MIRYAM #### [facility] [address] [place] [address] Geraldo Kandy KPC Resistant Gene Not detected Normal [facility] Comment on above: Performed By: #### B MIRYAM #### [facility] [address] [place] [address] Geraldo Kandy List. monocytogenes Not detected Normal [facility] Comment on above: Performed By: #### B MIRYAM #### [facility] [address] [place] [address] Geraldo Kandy mecA Resistant Gene Not detected Normal [facility] Comment on above: Performed By: #### B MIRYAM #### [facility] [address] [place] [address] Geraldo Kandy Proteus Not detected Normal [facility] Comment on above: Performed By: #### B MIRYAM #### [facility] [address] [place] [address] Geraldo Kandy Pseud. aeruginosa Not detected Normal [facility] Comment on above: Performed By: #### B MIRYAM #### [facility] [address] [place] [address] Geraldo Kandy Seratia marcescens Not detected Normal [facility] Comment on above: Performed By: #### B MIRYAM #### [facility] [address] [place] [address] Geraldo Kandy Site: R AC Normal [facility] Comment on above: Performed By: #### B MIRYAM #### [facility] [address] [place] [address] Geraldo Kandy Staph. aureus Not detected Normal [facility] Comment on above: Performed By: #### B MIRYAM #### [facility] [address] [place] [address] Geraldo Kandy Staphylococcus Not detected Normal [facility] Comment on above: Performed By: #### B MIRYAM #### [facility] [address] [place] [address] Geraldo Kandy Strep. agalactiae Not detected Normal [facility] Comment on above: Performed By: #### B MIRYAM #### [facility] [address] [place] [address] Geraldo Kandy Strep. pneumoniae Not detected Normal [facility] Comment on above: Performed By: #### B MIRYAM #### [facility] [address] [place] [address] Geraldo Kandy Strep. pyogenes Not detected Normal [facility] Comment on above: Performed By: #### B MIRYAM #### [facility] [address] [place] [address] Geraldo Kandy Streptococcus Not detected Normal [facility] Comment on above: Performed By: #### B MIRYAM #### [facility] [address] [place] [address] Geraldo Gaitan Aicha/B Resist. Gene Not detected Normal [facility] Comment on above: Performed By: #### B MIRYAM #### [facility] [address] [place] [address] Geraldo Kandy CBC AUTO DIFFon 01-02-2020 BASO # 0.0 103/ul Normal 0.0-0.1 [facility] Comment on above: Performed By: #### C BC #### [facility] [address] [place] [address] Geraldo Kandy Basophils/100 WBC (Bld) 0.3 % Normal 0.2-2.0 [facility] Comment on above: Performed By: #### C BC #### [facility] [address] [place] [address] Geraldo Kandy EO # 0.0 103/ul Normal 0.0-0.7 [facility] Comment on above: Performed By: #### C BC #### [facility] [address] [place] [address] Geraldo Kandy Eosinophils/100 WBC (Bld) 0.3 % Critically low 0.9-7.0 [facility] Comment on above: Performed By: #### C BC #### [facility] [address] [place] [address] Geraldo Gaitan Erythrocyte distribution width (RBC) [Ratio] 12.6 % Normal 11.0-15.0 [facility] Comment on above: Performed By: #### C BC #### [facility] [address] [place] [address] Geraldo Kandy Hematocrit (Bld) [Volume fraction] 42.7 % Normal 36.0-48.0 [facility] Comment on above: Performed By: #### C BC #### [facility] [address] [place] [address] Geraldo Kandy Hemoglobin (Bld) [Mass/Vol] 13.6 g/dL Normal 12.0-16.0 [facility] Comment on above: Performed By: #### C BC #### [facility] [address] [place] [address] Geraldo Kandy IG # 0.04 10e3/ul Critically high 0.00-0.03 [facility] Comment on above: Performed By: #### C BC #### [facility] [address] [place] [address] Geraldo Kandy IG % 0.3 % Normal 0.0-0.5 [facility] Comment on above: Performed By: #### C BC #### [facility] [address] [place] [address] Geraldo Kandy LYMPH # 0.5 103/ul Critically low 1.2-3.8 [facility] Comment on above: Performed By: #### C BC #### [facility] [address] [place] [address] Geraldo Gaitan Lymphocytes/100 WBC (Bld) 4.4 % Critically low 20.5-60.0 [facility] Comment on above: Performed By: #### C BC #### [facility] [address] [place] [address] Geraldo Gaitan MANUAL DIFF REQ NO Normal [facility] Comment on above: Performed By: #### C BC #### [facility] [address] [id number] Geraldobhumi Gaitan MCH (RBC) [Entitic mass] 30.6 pg Normal 26.7-34.0 [facility] Comment on above: Performed By: #### C BC #### [facility] [address] [place], [place] [id number] Geraldobhumi Gaitan MCHC (RBC) [Mass/Vol] 31.9 g/dL Normal 29.9-35.2 [facility] Comment on above: Performed By: #### C BC #### [facility] [address] [id number] Geraldobhumi Gaitan MCV (RBC) [Entitic vol] 96.0 fL Normal 81.0-99.0 [facility] Comment on above: Performed By: #### C BC #### [facility] [address] [place] [address] Geraldo Charlesen MONO # 0.8 103/ul Normal 0.3-0.8 [facility] Comment on above: Performed By: #### C BC #### [facility] [address] [place], [place] [id number] Geraldo Kandy Monocytes/100 WBC (Bld) 6.5 % Normal 1.7-12.0 [facility] Comment on above: Performed By: #### C BC #### [facility] [address] [place], [place] [id number] Geraldobhumi Charlesen NEUT # 10.1 103/ul Critically high 1.4-6.5 [facility] Comment on above: Performed By: #### C BC #### [facility] [address] [place], [place] [id number] Geraldo Kandy Neutrophils/100 WBC (Bld) 88.2 % Critically high 43.0-75.0 [facility] Comment on above: Performed By: #### C BC #### [facility] [address] [place], [place] [id number] Geraldo Kandy Platelet mean volume (Bld) [Entitic vol] 9.8 fL Normal 9.5-13.5 [facility] Comment on above: Performed By: #### C BC #### [facility] [address] [place], [place] [address] Geraldo Gaitan PLT 254 103/ul Normal 150-450 [facility] Comment on above: Performed By: #### C BC #### [facility] [address] [place], [place] [address] Geraldo Gaitan RBC 4.45 106/ul Normal 4.20-5.40 [facility] Comment on above: Performed By: #### C BC #### [facility] [address] [place], [place] [address] HEAD WO CONon 01-02-2020 [...] REMY NESS Date: 2020-01-02 19:00 Normal [facility] CULTURE BLOODon 01-02-2020 Microscopic examination of blood, culture Culture Observations: No growth at 5 days Normal [facility] Comment on above: Performed By: #### H GB #### [facility] [address] [place], [place] [address] Geraldo Gaitan CULTURE URINEon 01-02-2020 CULTURE URINE Culture Observations : Light growth of mixed genital eliezer.No potential pathogens seen. Normal [facility] Comment on above: Performed By: #### H GB #### [facility] [address] [place], [place] [address] Geraldo Gaitan ER URINE PROFILEon 0 Bilirubin Ql (U) Negative Normal NEGATIVE [facility] Comment on above: Performed By: #### MELODY CORDOVA #### [facility] [address] [place] [address] Geraldo Kandy Clarity (U) SL CLOUDY Normal [facility] Comment on above: Performed By: #### MELODY CORDOVA #### [facility] [address] [place] [address] Geraldo Kandy Color (U) LT. YELLOW Normal YELLOW [facility] Comment on above: Performed By: #### MELODY CORDOVA #### [facility] [address] [place] [address] Geraldo Kandy ERUAHD A micrscopic examina tion will be performed if indicated. Normal [facility] Comment on above: Performed By: #### MELODY CORDOVA #### [facility] [address] [place] [address] Geraldo Kandy Glucose Ql (U) Negative Normal NEGATIVE [facility] Comment on above: Performed By: #### MELODY CORDOVA #### [facility] [address] [place] [address] Geraldo Kandy Hemoglobin Ql (U) SMALL Normal NEGATIVE [facility] Comment on above: Performed By: #### MELODY CORDOVA #### [facility] [address] [place] [address] Geraldo Kandy Ketones Ql (U) Negative Normal NEGATIVE [facility] Comment on above: Performed By: #### MELODY CORDOVA #### [facility] [address] [place] [address] Geraldo Kandy LEUKOCYTES TRACE Normal NEGATIVE [facility] Comment on above: Performed By: #### MELODY CORDOVA #### [facility] [address] [place] [address] Geraldo Kandy Nitrite Ql (U) Negative Normal NEGATIVE [facility] Comment on above: Performed By: #### MELODY CORDOVA #### [facility] [address] [place] [address] Geraldo Kandy pH (U) 7.0 [pH] Normal 5-9 [facility] Comment on above: Performed By: #### KANDICE CORDOVARO #### [facility] [address] [place] [address] Geraldo Gaitan Protein Ql (U) 30 mg/dl Normal [facility] Comment on above: Performed By: #### KANDICE CORDOVARO #### [facility] [address] [place] [address] Geraldo Gaitan SPEC GRAVITY 1.015 Normal 1.005-<=1. 025 [facility] Comment on above: Performed By: #### KANDICE CORDOVARO #### [facility] [address] [place] [address] Geraldo Gaitan UR MICRO IND INDICATED Normal [facility] Comment on above: Performed By: #### MELODY CORDOVA #### [facility] [address] [place] [address] Geraldo Gaitan Urobilinogen Qn (U) 0.2 {Eileen'U}/dL Normal [facility] Comment on above: Performed By: #### KANDICE CORDOVARO #### [facility] [address] [place] [address] Geraldo Gaitan LACTATE/LACTIC ACIDon 2019 Lactate [Moles/Vol] 1.1 mmol/L Normal 0.7-2.0 [facility] Comment on above: Performed By: #### H GB #### [facility] [address] [place] [address] Geraldo Gaitan PROCALCITONINon 01-02-2020 PCT header 1 SEE BELOW Normal [facility] Comment on above: Result Comment: PCT <0.5ng/mL: Systemic infection (sepsis) is not likely, local bacterial infection possible, low risk for progression to severe systemic infection (severe sepsis) Performed By: #### P RL #### [facility] [address] [place] [address] Geraldo Kandy PCT header 2 SEE BELOW Normal [facility] Comment on above: Result Comment: PCT >/=0.5 and <2 ng/mL: Systemic infection (sepsis) is possible, moderate risk for progression to severe systemic infection (severe sepsis) Performed By: #### P RL #### [facility] [address] [place] [address] Geraldobhumi Gaitan PCT header 3 SEE BELOW Normal [facility] Comment on above: Result Comment: PCT >/=2.0 and <10 ng/mL: Systemic infection (sepsis) is likely, unless other causes are known, high risk for progession to severe systemic infection(severe sepsis) Performed By: #### P RL #### [facility] [address] [place] [address] Geraldo Kandy PCT header 4 SEE BELOW Normal [facility] Comment on above: Result Comment: PCT >/= 10 ng/mL: Important systemic inflammatory response almost exclusively due to severe bacterial sepsis or septic shock, high likelihood of severe sepsis or septic shock Performed By: #### P RL #### [facility] [address] [place] [address] Geraldo Gaitan PROCALCITONIN 0.62 ng/mL Critically high 0.00-0.50 [facility] Comment on above: Performed By: #### P RL #### [facility] [address] [place] [address] Geraldo Gaitan PROF 14(COMP METB)on 020 Albumin [Mass/Vol] 3.6 g/dL Normal 3.5-5.0 [facility] Comment on above: Performed By: #### C MP #### [facility] [address] [place] [address] Geraldo Gaitan Albumin/Globulin [Mass ratio] 0.8 {ratio} Normal [facility] Comment on above: Performed By: #### C MP #### [facility] [address] [place] [address] Geraldo Gaitan ALP [Catalytic activity/Vol] 95 U/L Normal 38-126 [facility] Comment on above: Performed By: #### C MP #### [facility] [address] [place] [address] Geraldo Gaitan ALT [Catalytic activity/Vol] 32 U/L Normal 9-52 [facility] Comment on above: Performed By: #### C MP #### [facility] [address] [place], [place] [address] Geraldo Kandy Anion gap [Moles/Vol] 13.8 mmol/L Normal Th e [facility] Comment on above: Performed By: #### C MP #### [facility] [address] [id number] Geraldo Kandy AST [Catalytic activity/Vol] 42 U/L Critically high 14-36 [facility] Comment on above: Performed By: #### C MP #### [facility] [address] [address] Geraldo Kandy Bilirubin [Mass/Vol] 0.5 mg/dL Normal 0.2-1.3 [facility] Comment on above: Performed By: #### C MP #### [facility] [address] [address] Geraldo Kandy Calcium [Mass/Vol] 9.4 mg/dL Normal 8.4-10.2 [facility] Comment on above: Performed By: #### C MP #### [facility] [address] [address] Geraldo Kandy Chloride [Moles/Vol] 100 mmol/L Normal 98-107 [facility] Comment on above: Performed By: #### C MP #### [facility] [address] [address] Geraldo Kandy CO2 [Moles/Vol] 24.6 mmol/L Normal 22.0-30.0 [facility] Comment on above: Performed By: #### C MP #### [facility] [address] [id number] Geraldo Kandy Creatinine [Mass/Vol] 1.36 mg/dL Critically high 0.52-1.04 [facility] Comment on above: Performed By: #### C MP #### [facility] [address] [id number] Geraldo Kandy EGFR-AF ZAMBIAN 46 mL/min/1.73m2 Critically low >=60 [facility] Comment on above: Performed By: #### C MP #### [facility] [address] [id number] Geraldo Kandy EGFR-NON AF ZAMBIAN 38 mL/min/1.73m2 Critically low >=60 [facility] Comment on above: Performed By: #### C MP #### [facility] [address] [id number] Geraldo Kandy Globulin (S) [Mass/Vol] 4.5 g/dL Normal [facility] Comment on above: Performed By: #### C MP #### [facility] [address] [phone] Geraldo Kandy Glucose [Mass/Vol] 120 mg/dL Critically high 74-106 T [facility] Comment on above: Performed By: #### C MP #### [facility] [address] [address] Geraldo Kandy Potassium [Moles/Vol] 3.4 mmol/L Normal 3.4-5.0 [facility] Comment on above: Performed By: #### C MP #### [facility] [address] [address] Geraldo Kandy Protein [Mass/Vol] 8.1 g/dL Normal 6.1-8.2 [facility] Comment on above: Performed By: #### C MP #### [facility] [address] [place], [place] [phone] Geraldo Kandy Sodium [Moles/Vol] 135 mmol/L Critically low 137-145 Th [facility] Comment on above: Performed By: #### C MP #### [facility] [address] [phone] Geraldo Kandy Urea nitrogen [Mass/Vol] 22.0 mg/dL Critically high 7.0-17.0 [facility] Comment on above: Performed By: #### C MP #### [facility] [address] [place], [place] [phone] Geraldo Kandy Urea nitrogen/Creatinine [Mass ratio] 16.2 mg/mg Normal [facility] Comment on above: Performed By: #### C MP #### [facility] [address] [phone] Geraldo Kandy RESPIRATORY PANEL PLUSon Adenovirus Not detected Normal NOT DETECTED [facility] Comment on above: Performed By: #### R SPLUS #### [facility] [address] [place] [address] Geraldo Kandy B. Parapertusis Not detected Normal NOT DETECTED [facility] Comment on above: Performed By: #### R SPLUS #### [facility] [address] [place] [address] Geraldo Kandy B. Pertussis Not detected Normal NOT DETECTED [facility] Comment on above: Performed By: #### R SPLUS #### [facility] [address] [place] [address] Geraldo Kandy Chlamydia Pneumoniae Not detected Normal NOT DETECTED [facility] Comment on above: Performed By: #### R SPLUS #### [facility] [address] [place] [address] Geraldo Kandy Coronavirus 229E Not detected Normal NOT DETECTED [facility] Comment on above: Performed By: #### R SPLUS #### [facility] [address] [place] [address] Geraldo Kandy Coronavirus HKU1 Not detected Normal NOT DETECTED [facility] Comment on above: Performed By: #### R SPLUS #### [facility] [address] [place] [address] Geraldo Kandy Coronavirus NL63 Not detected Normal NOT DETECTED [facility] Comment on above: Performed By: #### R SPLUS #### [facility] [address] [place] [address] Geraldo Kandy Coronavirus OC43 Not detected Normal NOT DETECTED [facility] Comment on above: Performed By: #### R SPLUS #### [facility] [address] [place] [address] Geraldo Kandy Influenza A H1 2009 Not detected Normal NOT DETECTED [facility] Comment on above: Performed By: #### R SPLUS #### [facility] [address] [place] [address] Geraldo Kandy Influenza B Not detected Normal NOT DETECTED [facility] Comment on above: Performed By: #### R SPLUS #### [facility] [address] [place] [address] Geraldo Kandy Metapneumovirus Not detected Normal NOT DETECTED [facility] Comment on above: Performed By: #### R SPLUS #### [facility] [address] [place] [address] Geraldo Kandy Mycoplas. Pneumoniae Not detected Normal NOT DETECTED [facility] Comment on above: Performed By: #### R SPLUS #### [facility] [address] [place] [address] Geraldo Kandy Parainfluenza 1 Not detected Normal NOT DETECTED [facility] Comment on above: Performed By: #### R SPLUS #### [facility] [address] [place] [address] Geraldo Kandy Parainfluenza 2 Not detected Normal NOT DETECTED [facility] Comment on above: Performed By: #### R SPLUS #### [facility] [address] [place] [address] Geraldo Kandy Parainfluenza 3 Not detected Normal NOT DETECTED [facility] Comment on above: Performed By: #### R SPLUS #### [facility] [address] [place] [address] Geraldo Kandy Parainfluenza 4 Not detected Normal NOT DETECTED [facility] Comment on above: Performed By: #### R SPLUS #### [facility] [address] [place] [address] Geraldo Kandy Rhino/Enterovirus Not detected Normal NOT DETECTED [facility] Comment on above: Performed By: #### R SPLUS #### [facility] [address] [place] [address] Geraldo Kandy RP2 Header 1 RESPIRATORY PANEL: VIRUSES Normal [facility] Comment on above: Performed By: #### R SPLUS #### [facility] [address] [place] [address] Geraldo Kandy RP2 Header 2 RESPIRATORY PANEL: BACTERIA Normal [facility] Comment on above: Performed By: #### R SPLUS #### [facility] [address] [place] [address] Geraldo Gaitan RP2 Header 4 EUA SEE BELOW Normal [facility] Comment on above: Result Comment: This test is not yet approved or cleared by the [place] FDA. When there are no FDA-approved or cleared tests available, and other criteria are met, FDA can make tests available under an emergency access mechanism called an Emergency Use Authorization (EUA). The EUA for this test is supported by the Geophysical Operator of Health and Human Service?s (HHS?s) declaration [...] used). Performed By: #### R SPLUS #### [facility] [address] [place] [address] Geraldo Gaitan RSV Not detected Normal NOT DETECTED [facility] Comment on above: Performed By: #### R SPLUS #### [facility] [address] [place] [address] Geraldo Gaitan SARS-CoV-2 (COVID-19) RNA VIVIENNE+probe Ql (Unsp spec) Not detected Normal NOT DETECTED [facility] Comment on above: Performed By: #### R SPLUS #### [facility] [address] [place] [address] Geraldo Gaitan URINE MICROSCOPIC ONLYon BACTERIA MODERATE Normal NONE SEEN [facility] Comment on above: Performed By: #### MELODY CORDOVA #### [facility] [address] [place] [address] Geraldo Gaitan Bacteria identified Cx Nom (U) INDICATED Normal [facility] Comment on above: Performed By: #### MELODY CORDOVA #### [facility] [address] [place] [address] Geraldo Kandy CAST NONE SEEN Normal NONE SEEN [facility] Comment on above: Performed By: #### MELODY CORDOVA #### [facility] [address] [place] [address] Geraldo Kandy Crystals LM Nom (Urine sed) NONE SEEN Normal NONE SEEN [facility] Comment on above: Performed By: #### E RUR, UMICRO #### [facility] [address] [address] Geraldo Kandy Epithelial cells LM Ql (Urine sed) RARE Normal [facility] Comment on above: Performed By: #### E RUR, UMICRO #### [facility] [address] [address] Geraldo Kandy MUCOUS NONE SEEN Normal NONE SEEN [facility] Comment on above: Performed By: #### E RUR, UMICRO #### [facility] [address] [place] [address] Geraldo Kandy RBC 0-2 Normal 0-2 [facility] Comment on above: Performed By: #### E RUR, UMICRO #### [facility] [address] [place] [address] Geraldo Kandy WBC 5-10 Normal NONE SEEN [facility] Comment on above: Performed By: #### E RUR, UMICRO #### [facility] [address] [phone] Geraldo Kandy XR CHEST 1 01-02-2020 XR CHEST 1 V EXAM: XR [...] REMY NESS Date: 2020-01-02 18:52 Normal [facility] Vital Signs Date Time Vital Sign Value Performing Clinician Facility 11-02-2024 09:31-040 Body height 149.9 cm Shahriar Warren DO Work Phone: [facility] 11-02-2024 09:31-0400 Body mass index (BMI) [Ratio] 21.61 kg/m2 Shahriar Warren DO Work Phone: [facility] 11-02-2024 09:31-0400 Body weight 48.53 kg Shahriar Warren DO Work Phone: [facility] 10-10-2024 11:06-0400 Body height 149.9 cm Shahriar Warren DO Work Phone: [facility] 10-10-2024 11:06-0400 Body mass index (BMI) [Ratio] 21.61 kg/m2 Shahriar Warren DO Work Phone: [facility] 10-10-2024 11:06-0400 Body weight 48.53 kg Shahriar Warren DO Work Phone: [facility] 10-10-2024 11:06-0400 Diastolic blood pressure 76 mm[Hg] Shahriar Warren DO Work Phone: [facility] 10-10-2024 11:06-0400 Systolic blood pressure 132 mm[Hg] Shahriar Warren DO Work Phone: [facility] 10-07-2024 11:40-0400 Body temperature 98.7 [degF] Shari Mckeon MD Work Phone: [facility] 10-07-2024 11:40-0400 Diastolic blood pressure 66 mm[Hg] Shari Mckeon MD Work Phone: [facility] 10-07-2024 11:40-0400 Heart rate 84 /min Shari Mckeon MD Work Phone: [facility] 10-07-2024 11:40-0400 Respiratory rate 16 /min Shari Mckeon MD Work Phone: [facility] 10-07-2024 11:40-0400 SaO2% (BldA) [Mass fraction] 94 % Shari Mckeon MD Work Phone: [facility] 10-07-2024 11:40-0400 Systolic blood pressure 154 mm[Hg] Shari Mckeon MD Work Phone: [facility] 10-06-2024 10:40-0400 Inhaled oxygen flow rate 8 L/min Shari Mckeon MD Work Phone: [facility] 10-06-2024 04:42-0400 Body height 149.86 cm Shari Mckeon MD Work Phone: [facility] 10-06-2024 04:42-0400 Body weight 49 kg Shari Mckeon MD Work Phone: [facility] 09-26-2024 14:01-0400 Body height 149.9 cm China Diana HEAD CHARGER Work Phone: [facility] 09-26-2024 14:01-0400 Body mass index (BMI) [Ratio] 21.97 kg/m2 China Diana HEAD CHARGER Work Phone: [facility] 09-26-2024 14:01-0400 Body weight 49.35 kg China Hopsoncourtneymariama HEAD CHARGER Work Phone: [facility] 09-26-2024 14:01-0400 Diastolic blood pressure 70 mm[Hg] China Hopsonjohnnie HEAD CHARGER Work Phone: [facility] 09-26-2024 14:01-0400 Heart rate 62 /min China Hopsoncourtneymariama HEAD CHARGER Work Phone: [facility] 09-26-2024 14:01-0400 SaO2% (BldA) [Mass fraction] 95 % China Hopsonjohnnie HEAD CHARGER Work Phone: [facility] 09-26-2024 14:01-0400 Systolic blood pressure 122 mm[Hg] China Diana HEAD CHARGER Work Phone: [facility] 05-09-2024 10:42-0500 Diastolic blood pressure 70 mm[Hg] China Diana HEAD CHARGER Work Phone: [facility] 05-09-2024 10:42-0500 Systolic blood pressure 120 mm[Hg] China Diana HEAD CHARGER Work Phone: [facility] 05-09-2024 10:34-0500 Body height 149.9 cm China Ortiz HEAD CHARGER Work Phone: [facility] 05-09-2024 10:34-0500 Body mass index (BMI) [Ratio] 20.28 kg/m2 Cihna Ortiz HEAD CHARGER Work Phone: [facility] 05-09-2024 10:34-0500 Body temperature 99.3 [degF] China Ortiz HEAD CHARGER Work Phone: [facility] 05-09-2024 10:34-0500 Body weight 45.54 kg China Ortiz HEAD CHARGER Work Phone: [facility] 05-09-2024 10:34-0500 Heart rate 86 /min China Ortiz HEAD CHARGER Work Phone: [facility] 05-09-2024 10:34-0500 SaO2% (BldA) [Mass fraction] 96 % China Ortiz HEAD CHARGER Work Phone: [facility] 01-24-2024 13:04-0500 Body height 149.9 cm Roger Pedro DPM Work Phone: [facility] 01-24-2024 13:04-0500 Body mass index (BMI) [Ratio] 20.2 kg/m2 Roger Vasquez DPM Work Phone: [facility] 01-24-2024 13:04-0500 Body weight 45.36 kg Roger Pedro DPM Work Phone: [facility] Healthcare Encounters Encounter Date Encounter Type Care Provider Facility Start: 12-03-2024 End: 12-03-2024 Telephone encounter Shari Mckeon MD Work Phone: [facility] Start: 11-23-2024 End: 11-23-2024 Clinisync Result Encounter Generic External Data Provider [facility] External Department Unsolicited Start: 11-23-2024 End: 11-23-2024 Clinisync Result Encounter Generic External Data Provider [facility] External Department Unsolicited Start: 11-15-2024 End: 11-15-2024 ambulatory [facility] Start: 11-02-2024 End: 11-02-2024 Postop follow up visit related to original px Shahriar Warren DO Work Phone: [facility] Comment on above: Acute cholecystitis (Primary Dx) Start: 11-02-2024 End: 11-02-2024 ambulatory SHAHRIAR WARREN Not Available Start: 11-01-2024 End: 11-01-2024 ambulatory CHINA Plascencia [facility] Start: 10-10-2024 End: 10-10-2024 Postop follow up visit related to original px Shahriar Maguirey DO Work Phone: [facility] Comment on above: Acute cholecystitis (Primary Dx) Start: 10-10-2024 End: 10-10-2024 ambulatory SHAHRIAR WARREN Not Available Start: 10-07-2024 End: 10-07-2024 External Result Encounter Shahriar Warren DO Work Phone: [facility] External Department Unsolicited Start: 10-07-2024 End: 10-07-2024 External Result Encounter Shahriar Warren DO Work Phone: [facility] External Department Unsolicited Start: 10-06-2024 End: 10-07-2024 Evaluation and management of inpatient Chema Gupta DO -[address] [place] [address] Surgical Work Phone: Start: 09-28-2024 End: 10-01-2024 Follow-up encounter China Ortiz NP Work Phone: [facility] Comment on above: Moderate aortic regu rgitation (Primary Dx); Mild aortic stenosis; SOB (shortness of breath) Start: 09-27-2024 End: 09-27-2024 ambulatory SHARI Amaral MIKE [facility] Start: 09-26-2024 End: 09-26-2024 Bamboo flowsheet China Ortiz NP Work Phone: [facility] Start: 09-26-2024 End: 09-26-2024 Bamboo flowsheet China Ortiz HEAD CHARGER Work Phone: [facility] Start: 09-26-2024 End: 09-26-2024 Office outpatient visit 25 minutes China Ortiz HEAD CHARGER Work Phone: [facility] Comment on [...] 05-09-2024 End: 05-09-2024 Bamboo flowsheet China Ortiz HEAD CHARGER Work Phone: [facility] Start: 05-09-2024 End: 05-09-2024 Bamboo flowsheet China Ortiz HEAD CHARGER Work Phone: [facility] Start: 05-09-2024 End: 05-09-2024 Office outpatient visit 15 minutes China Ortiz HEAD CHARGER Work Phone: [facility] Comment on [...] 02-20-2024 End: 02-20-2024 ambulatory Kei Espana MD Facility:[facility] Start: 02-07-2024 End: 02-07-2024 Refill Shari Mckeon MD Work Phone: [facility] Comment on above: Mild intermittent as thma, unspecified whether complicated ([facility]/HCC) Start: 02-06-2024 End: 02-06-2024 ambulatory Kei Espana MD Facility:[facility] Start: 01-24-2024 End: 01-24-2024 Bamboo flowsheet Roger Vasquez DPM Work Phone: [facility] Start: 01-24-2024 End: 01-24-2024 Bamboo flowsheet Roger Vasquez DPM Work Phone: [facility] Start: 01-24-2024 End: 01-24-2024 Office outpatient visit 15 minutes Roger Vasquez DPM Work Phone: [facility] Comment on above: Dermatophytosis of n ail (Primary Dx); Dystrophic nail; Onychocryptosis; Pain of left great toe Start: 01-24-2024 End: 01-24-2024 ambulatory ROGER VASQUEZ Not Available Start: 01-23-2024 End: 01-23-2024 ambulatory Kei Espana MD Facility:[facility] Start: 01-09-2024 End: 01-09-2024 ambulatory Kei Espana MD Facility:[facility] Start: 12-28-2023 End: 12-28-2023 ambulatory SHARI [...] 12-12-2023 End: 12-12-2023 ambulatory Kei Espana MD Facility:[facility] Start: 12-09-2023 End: 12-09-2023 Refill Shari Mckeon MD Work Phone: [facility] Comment on above: Mild intermittent as thma, unspecified whether complicated [place] Start: 11-28-2023 End: 11-28-2023 ambulatory Kei Espana MD Facility:[facility] Start: 11-17-2023 End: 11-17-2023 Refill Shari Mckeon MD Work Phone: [facility] Comment on above: Essential hypertensi on ([facility] Start: 09-05-2023 End: 09-05-2023 ambulatory Kei Espana MD Facility:[facility] Start: 08-22-2023 End: 08-22-2023 ambulatory Kei Espana MD Facility:[facility] Start: 07-25-2023 End: 07-25-2023 ambulatory Kei Espana MD Facility:[facility] Start: 07-11-2023 End: 07-11-2023 ambulatory Kei Espana MD Facility:[facility] Start: 04-27-2023 Telephone encounter Ede sierra DO Work Phone: [facility] 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 Start: 04-21-2023 Refill Tamara Aparicio NP Work Phone: [facility] Comment on above: Essential hypertensi on ([facility] Start: 07-26-2022 End: 07-26-2022 ambulatory SHARI MCKEON Facility:[facility] Start: 06-29-2022 End: 06-30-2022 ambulatory SHARI MCKEON Facility:[facility] Start: 10-24-2020 End: 10-25-[address] SHARI MCKEON Facility:[facility] Start: 09-30-2020 End: 10-01-[address] SHARI MCKEON Facility:[facility] Start: 02-01-2020 End: 02-01-[address] CARLOS EDUARDO MENENDEZ Facility:[facility] Start: 01-30-2020 Encounter for prepro cedural laboratory examination DR CARLOS EDUARDO MENENDEZ [facility] Start: 01-26-2020 End: 01-27-[address] SHARI [...] Start: 11-12-2024 Influenza vaccination Influenza Vaccine (#1) [facility] Healthcare Start: 10-07-2024 [facility] Start: 10-06-2024 Referral to general surgeon [facility] Start: 10-06-2024 Hospital admission [facility] Start: 10-01-2024 End: 10-01-2026 Echocardiogram 2D complete Echocardiogram 2D complete Echocardiography Routine Moderate aortic regurgitation Mild aortic stenosis SOB (shortness of breath) Expected: 10/01/2024 (Approximate), Expires: 10/01/2026 [facility] [employer] Work Phone: Comment on above: Expected: 10/01/2024 (Approximate), Expi res: 10/01/2026 Start: 09-26-2024 End: 09-26-2025 CBC W Auto Differential panel - Blood CBC and differential Lab Routine Shortness of breath Expected: 09/26/2024 (Approximate), Expires: 09/26/2025 [facility] Comment on above: Expected: 09/26/2024 (Approximate), Expi res: 09/26/2025 Start: 09-26-2024 End: 09-26-2025 Comprehensive metabolic 2000 panel - Serum or Plasma Comprehensive metabolic panel Lab Routine Stage 3b chronic kidney disease (CMS-HCC) Shortness of breath Expected: 09/26/2024 (Approximate), Expires: 09/26/2025 [facility] Comment on above: Expected: 09/26/2024 (Approximate), Expi res: 09/26/2025 Start: 09-26-2024 End: 09-26-2025 ECG 12 lead ECG 12 lead ECG Routine Primary hypertension Irregular heart beat Shortness of breath Expected: 09/26/2024 (Approximate), Expires: 09/26/2025 [facility] Work Phone: Comment on above: Expected: 09/26/2024 (Approximate), Expi res: 09/26/2025 Start: 09-26-2024 End: 09-26-2025 Lipid 1996 panel - Serum or Plasma Lipid panel Lab Routine Primary hypertension Pure hypercholesterolemia Shortness of breath Expected: 09/26/2024 (Approximate), Expires: 09/26/2025 [facility] Comment on above: Expected: 09/26/2024 (Approximate), Expi res: 09/26/2025 Start: 09-26-2024 End: 09-26-2024 Patient encounter procedure 09/26/2024 2:00 PM EDT Office Visit [facility] [address] [place] [address] China Ortiz NP [address] [place] [address] Arrived [facility] Comment on above: Arrived Start: 06-16-2024 Medicare Annual Wellness (AWV) Medicare Annual Wellness (AWV) [facility] Start: 05-09-2024 End: 05-09-2024 Patient encounter procedure 05/09/2024 10:30 AM EST Office Visit [facility] [address] [place] [id number] China Ortiz NP [address] [place] [address] Arrived [facility] Comment on above: Arrived Start: 12-28-2023 End: 12-28-2023 Professional / ancillary services management 12/28/2023 9:00 AM EDT Ancillary Procedure [facility] [place] [facility] [address] [facility] [address] [place] [id number] [facility] Start: 12-13-2023 End: 02-11-2025 MG Breast - bilateral Screening Bilateral screening mammogram Imaging Routine Encounter for screening mammogram for malignant neoplasm of breast Expected: 12/13/2023, Expires: 02/11/2025 [facility] Work Phone: Comment on above: Expected: 12/13/2023, Expires: Start: 11-13-2023 Influenza vaccination Influenza Vaccine (#1) [facility] Start: 08-02-2023 End: 08-02-2023 Patient encounter procedure 08/02/2023 9:00 AM EDT Office Visit [facility] [address] [facility] [address] [place] [id number] Ede Ramos DO [address] [facility] [address] [place] [address] [facility] Start: 05-06-2023 Medicare Annual Wellness (AWV) Medicare Annual Wellness (AWV) [facility] Patient Education Know your Meds [facility] Work Phone: Patient referral [facility] Work Phone: Immunizations Immunization Date Immunization Notes Care Provider Fa cility 01-19-2024 RSV, recombinant, protein subunit RSVpreF, adjuvant reconstitu, 120mcg/0.5mL, PF (Arexvy) China Ortiz HEAD CHARGER Work Phone: [facility] 01-05-2024 influenza, high dose seasonal, preservative-free China Ortiz HEAD CHARGER Work Phone: [facility] 01-05-2024 influenza virus vaccine, unspecified formulation China Ortiz HEAD CHARGER Work Phone: [facility] 12-23-2022 Influenza, High-dose Seasonal, Quadrivalent, Preservative Free Tamara Hackenburg HEAD CHARGER Work Phone: [facility] 12-23-2022 SARS-COV-2 (COVID-19 ) vaccine, mRNA, spike protein, LNP, PF, 50 mcg/0.5 mL Tamara Hackenburg HEAD CHARGER Work Phone: [facility] 12-23-2022 influenza virus vaccine, unspecified formulation Shari Mckeon MD Work Phone: [facility] 12-01-2021 Influenza, Seasonal, Quadrivalent, Adjuvanted Tamara Hackenburg HEAD CHARGER Work Phone: [facility] 12-01-2021 Seasonal, trivalent, recombinant, injectable influenza vaccine, preservative free Tamara Hackenburg HEAD CHARGER Work Phone: [facility] 12-16-2020 Influenza, High-dose Seasonal, Quadrivalent, Preservative Free Tamara Hackenburg HEAD CHARGER Work Phone: [facility] 05-14-2020 COVID-19 mRNA-1273 (Moderna) Shari Mckeon MD Work Phone: [facility] 04-16-2020 COVID-19 mRNA-1273 (Moderna) Shari Mckeon MD Work Phone: [facility] 02-14-2020 zoster vaccine recombinant Tamara Hackenburg HEAD CHARGER Work Phone: [facility] 12-07-2019 influenza, seasonal, injectable Tamara Hackenburg HEAD CHARGER Work Phone: [facility] 11-13-2019 influenza, injectabl e, quadrivalent, preservative free Tamara Hackenburg HEAD CHARGER Work Phone: [facility] 11-13-2019 zoster vaccine recombinant Tamara Hackenburg HEAD CHARGER Work Phone: [facility] 11-12-2019 zoster vaccine recombinant Tamara Hackenburg HEAD CHARGER Work Phone: [facility] 11-29-2018 Seasonal trivalent influenza vaccine, adjuvanted, preservative free Tamara Hackenburg HEAD CHARGER Work Phone: [facility] 11-30-2017 influenza, high dose seasonal, preservative-free Tamara Hackenburg HEAD CHARGER Work Phone: [facility] 11-24-2017 Seasonal trivalent influenza vaccine, adjuvanted, preservative free Tamara Hackenburg HEAD CHARGER Work Phone: [facility] 11-18-2016 influenza, high dose seasonal, preservative-free Tamara Hackenburg HEAD CHARGER Work Phone: [facility] Work Phone: 11-18-2016 pneumococcal conjuga te vaccine, 13 valent Tamara Hackenburg HEAD CHARGER Work Phone: [facility] 11-18-2016 Seasonal trivalent influenza vaccine, adjuvanted, preservative free Tamara Hackenburg HEAD CHARGER Work Phone: [facility] 11-18-2016 tetanus toxoid, redu greg diphtheria toxoid, and acellular pertussis vaccine, adsorbed Tamara Hackenburg HEAD CHARGER Work Phone: [facility] 11-12-2016 pneumococcal polysaccharide vaccine, 23 valent Tamara Hackenburg HEAD CHARGER Work Phone: [facility] 12-11-2015 influenza, high dose seasonal, preservative-free Tamara Hackenburg HEAD CHARGER Work Phone: [facility] 12-30-2014 influenza virus vaccine, whole virus Tamara Hackenburg HEAD CHARGER Work Phone: [facility] 12-30-2014 influenza, injectabl e, quadrivalent, preservative free Tamara Hackenburg HEAD CHARGER Work Phone: [facility] 05-10-2014 pneumococcal conjuga te vaccine, 13 valent Tamara Hackenburg HEAD CHARGER Work Phone: [facility] 12-13-2013 influenza virus vaccine, whole virus Tamara Hackenburg HEAD CHARGER Work Phone: [facility] 01-12-2013 pneumococcal Conjuga te, unspecified formulation Tamara Hackenburg HEAD CHARGER Work Phone: [facility] 01-12-2013 seasonal influenza, intradermal, preservative free Tamara Hackenburg HEAD CHARGER Work Phone: [facility] 12-27-2012 pneumococcal polysaccharide vaccine, 23 valent Tamara Hackenburg HEAD CHARGER Work Phone: [facility] Payers Date Payer Category Payer Medicare [id number] 2024 Self-pay 2023 Unknown 2017 Medicare ANTHEM MEDICARE ADVANTAGE ANTHEM MEDICARE ADVANTAGE [id number] 2017-Present [address] [place] [address] [id number] 2017 Medicare (Managed Care) [facility] [id number] 1959 Unknown [id number] 1944 Unknown [id number] 2.16.840.1.108411.3.579. 2.647 1944 Unknown [id number] 2.16.840.1.652238.3.579. 2.593 1944 Unknown [id number] 2.16.840.1.068653.3.579. 2.593 1944 Unknown [id number] 2.16.840.1.234039.3.579. 2.593 1944 Unknown [id number] 2.16.840.1.237138.3.579. 2.593 1944 Unknown [id number] 2.16.840.1.324141.3.579. 2.593 1944 Unknown [id number] 2.16.840.1.440206.3.579. 2.718 1944 Unknown [id number] 2.16840.1.773104.3.579. 2.718 1944 Unknown [id number] 2.16840.1.955732.3.579. 2.196 1944 Unknown [id number] 2.16.840.1.489591.3.579. 2.196 1944 Unknown [id number] 2.16.840.1.908223.3.579. 2.196 1944 Unknown [id number] 2.16.840.1.035061.3.579. 2.196 1944 Unknown [id number] 2.16.840.1.082852.3.579. 2.196 1944 Unknown [id number] 2.16.840.1.823216.3.579. 2.196 1944 Unknown [id number] 2.16.840.1.276928.3.579. 2.196 1944 Unknown [id number] 2.16.840.1.566173.3.579. 2.196 1944 Unknown [id number] 2.16.840.1.904592.3.579. 2.196 1944 Unknown [id number] 2.16.840.1.680586.3.579. 2.196 1944 Unknown [id number] 2.16.840.1.865345.3.579. 2.1286 1944 Unknown [id number] 2.16.840.1.327262.3.579. 2.1286 1944 Unknown [id number] 2.16.840.1.517999.3.579. 2.1259 1944 Unknown [id number] 2.16.840.1.772262.3.579. 2.1259 1944 Unknown [id number] 2.16.840.1.798070.3.579. 2.1259 1944 Unknown [id number] 2.16.840.1.002958.3.579. 2.1259 1944 Unknown [id number] 2.16.840.1.266526.3.579. 2.1259 1944 Unknown [id number] 2.16.840.1.870814.3.579. 2.1259 Unknown [id number] 2.16.840.1.702835.3.579. 2.531 Social History Date Type Detail Facility Start: 09-17-2022 End: 10-06-2024 Tobacco smoking status NEIS Never smoked tobacco [facility] Start: 09-17-2022 Tobacco use and exposure Smokeless tobacco non-user [facility] Start: 04-18-2023 End: 11-02-2024 Alcohol intake Current drinker of alcohol (finding) [facility] Start: 04-18-2023 End: 06-17-2023 Alcohol intake [facility] Start: 04-18-2023 End: 06-17-2023 Tobacco use panel [facility] Start: 01-06-2023 Alcohol Comment Caffeine intak [...] occasion? Never [facility] Sex Female (finding) [facility] Start: 1945 Sex Assigned At Female F [facility] Goals Date Patient Goal Desired Activity /State Functional Status Date Assessment Result Facility 10-07-2024 Functional status Patient at Baseline [facility] Work Phone: Mental Status Date Assessment Result Facility 10-07-2024 Cognitive function Cognitive Sta tus Patient at Baseline [facility] Work Phone: Clinical Notes 02-01-2020 to 12-03-2024 Telephone Encounter - Steffany Baltazar - 12/03/2024 11:08 AM EDTTelephone Encounter - Steffany Baltazar - 12/03/2024 11:08 AM EDTPjanett Warren DO - 11/02/2024 9:30 AM EDT Note Date & Type Note Facility 12-03-2024 Telephone encounter Note error [facility] 12-03-2024 Miscellaneous Notes error documented in this encounter [facility] 11-15-2024 Note New patient here to establish care. Self ref for MALDONADO with stairs and murmur per daughter. Had echo at [facility] a few weeks ago, and EKG in September 2024. Had recent cholecystectomy. Had lipid panel in September and PCP started her on statin. She declined to start. [facility] 11-15-2024 Note Cardiovascular Medic ine [facility] SUBJECTIVE Chief Complaint Patient presents with New Patient Heart Murmur HPI Radhacecilia Barraza is a 79 y.o. female here [...] is moderate pulmonary (more content not included)... [facility] 11-02-2024 History of Presen t illness Narrative Images [...] follow-ups on file. documented in this encounter [facility] 10-10-2024 History of Presen t illness Narrative [...] PCL 10/09/2024 15:18 Attached To: GENERAL PATHOLOGY [[id number]] Orders Only on 10/09/24 with Shahriar Warren DO Source Information [facility] Document History ASSESSMENT AND PLAN: Assessment/Plan Diagnoses and all orders for this visit: Acute cholecystitis Status post laparoscopic cholecystectomy secondary to acute gangrenous cholecystitis. I removed the SAUD drain. We discussed continued activity restrictions, incision care, drain site care, pathology report. I discussed with her and her [id number]. Not unexpected to have some soreness near the umbilical incision that was the extraction site from the gallbladder. I will see her again in 3 weeks No follow-ups on file. documented in this encounter [facility] 10-07-2024 Progress note Note Date/Time October 07, 2024 11:33am [place] [address] General Surgery Progress Note Signed Patient: Radha Barraza MR#: [id number] 803 : 1945 Acct:[id number] Age/Sex: 79 / F Adm Date: 5 Loc: 4N Room: 3K8175-2 Type: ADM IN Attending Dr: Chema Gupta [...] 12.5 Mg Tablet) 12.5 mg PO DAILY [facility] Stop: 10/07/25 08:59 Last Admin: 10/07/24 09:15 Dose: 12.5 mg Hydromorphone HCl (Hydromorphone 1 Mg/Ml Syringe) 0.5 mg IV-PUSH Q3H PRN PRN Reason: Pain Lactated Ringer's (Lactated Ringers) 1,000 mls @ 75 mls/hr IV .[id number] [facility] Stop: 10/06/25 04:44 Last Admin: 10/07/24 05:37 Dose: 75 mls/hr Ertapenem 0.5 gm/ Sodium (Chloride) 100 mls @ 200 mls/hr IV Q24H [facility] Stop: 10/07/25 01:59 Last Admin: 10/07/24 03:07 Dose: 200 mls/hr Lidocaine HCl (Lidocaine 1% 50 Ml Vial) 0.1 ml INTRADERMA PREOP PRN PRN Reason: Venipuncture x 1 Dose Losartan Potassium (Losartan 50 Mg Tablet) 100 mg PO DAILY [facility] Stop: 10/07/25 08:59 Last Admin: 10/07/24 09:15 [...] 10 Ml Vial.Pf) 10 ml INJECTION Q12HR [facility] Stop: 10/06/25 08:59 Last Admin: 10/07/24 09:15 Dose: 10 ml Sodium Chloride (Sodium Chloride 0.9 % 10 Ml Syringe) 0 ml IV-PUSH PRN PRN PRN Reason: Flush Stop: 10/06/25 08:17 Last Admin: 10/07/24 09:15 Dose: 10 ml Trazodone HCl (Trazodone 50 Mg Tablet) 50 mg PO QPM [facility] Stop: 10/07/25 20:59 Exam Physical Exam Vital [...] % (Auto) 84.8, Lymph % (Auto) 9.4, Hinds % (Auto) 4.2, Eos % (Auto) 1.3, Baso % (Auto) 0.3, Nucleat RBC Rel Count 0.0, Neut # (Auto) 7.2, Lymph # (Auto) 0.8 L, Hinds # (Auto) 0.4, Eos # (Auto) 0.1, [...] % (Auto) 89.1, Lymph % (Auto) 6.6, Hinds % (Auto) 3.9, Eos % (Auto) 0.2, Baso % (Auto) 0.2, Nucleat RBC Rel Count 0.0, Neut # (Auto) 9.9 H, Lymph # (Auto) 0.7 L, Hinds # (Auto) 0.4, Eos # (Auto) 0.0, [...] <Electronically signed by DO Shahriar Warren> 10/07/24 1139 [facility] Work Phone: 1(105) 233-719907-27-2025 [place] [address] General Surgery Progress Note Signed Patient: Radha Barraza MR#: [id number] 803 : 1945 Acct:[id number] Age/Sex: 79 / F Adm Date: 5 Loc: Room: [address] [place] [address] Type: ADM IN Attending Dr: Chema Gupta [...] Mg/200 Unit Tablet) 1 tab PO BID.WITH.MEALS [facility] Stop: 10/06/25 16:59 Last Admin: 10/07/24 09:15 Dose: 1 tab Famotidine (Famotidine/Pf 20 Mg/2 Ml Vial) 20 mg IV-PUSH Q12HR [facility] Stop: 10/06/25 08:59 Last Admin: 10/07/24 09:15 Dose: 20 mg Hydralazine HCl (Hydralazine 20 Mg/Ml Vial) 10 mg IV-PUSH Q4H PRN PRN Reason: if SBP > 185 Stop: 10/06/25 04:36 Hydrochlorothiazide (Hydrochlorothiazide 12.5 Mg Tablet) 12.5 mg PO DAILY [facility] Stop: 10/07/25 08:59 Last Admin: 10/07/24 09:15 Dose: 12.5 mg Hydromorphone HCl (Hydromorphone 1 Mg/Ml Syringe) 0.5 mg IV-PUSH Q3H PRN PRN Reason: Pain Lactated Ringer's (Lactated Ringers) 1,000 mls @ 75 mls/hr IV .[id number] [facility] Stop: 10/06/25 04:44 Last Admin: 10/07/24 05:37 Dose: 75 mls/hr Ertapenem 0.5 gm/ Sodium (Chloride) 100 mls @ 200 mls/hr IV Q24H [facility] Stop: 10/07/25 01:59 Last Admin: 10/07/24 03:07 Dose: 200 mls/hr Lidocaine HCl (Lidocaine 1% 50 Ml Vial) 0.1 ml INTRADERMA PREOP PRN PRN Reason: Venipuncture x 1 Dose Losartan Potassium (Losartan 50 Mg Tablet) 100 mg PO DAILY [facility] Stop: 10/07/25 08:59 Last Admin: 10/07/24 09:15 [...] 10 Ml Vial.Pf) 10 ml INJECTION Q12HR [facility] Stop: 10/06/25 08:59 Last Admin: 10/07/24 09:15 Dose: 10 ml Sodium Chloride (Sodium Chloride 0.9 % 10 Ml Syringe) 0 ml IV-PUSH PRN PRN PRN Reason: Flush Stop: 10/06/25 08:17 Last Admin: 10/07/24 09:15 Dose: 10 ml Trazodone HCl (Trazodone 50 Mg Tablet) 50 mg PO QPM [facility] Stop: 10/07/25 20:59 Exam Physical Exam Vital [...] % (Auto) 84.8, Lymph % (Auto) 9.4, Hinds % (Auto) 4.2, Eos % (Auto) 1.3, Baso % (Auto) 0.3, Nucleat RBC Rel Count 0.0, Neut # (Auto) 7.2, Lymph # (Auto) 0.8 L, Hinds # (Auto) 0.4, Eos # (Auto) 0.1, [...] % (Auto) 89.1, Lymph % (Auto) 6.6, Hinds % (Auto) 3.9, Eos % (Auto) 0.2, Baso % (Auto) 0.2, Nucleat RBC Rel Count 0.0, Neut # (Auto) 9.9 H, Lymph # (Auto) 0.7 L, Hinds # (Auto) 0.4, Eos # (Auto) 0.0, [...] DO 10/07/24 1131 Signed By: 10/07/24 1133 [facility]07-26-2025 Progress note Author Chema Gupta [facility] Note Date/Time October 06, 2024 3:14 pm [facility] [address] [place] [address] Hospitalist Progress Note Signed Patient: Radha Barraza MR#: [id number] 803 : 1945 Acct:[id number] Age/Sex: 79 / F Adm Date: 5 Loc: 4N Room: 4L0105-0 Type: ADM IN Attending Dr: Chema Gupta DO Copies to: ~ Date of Service: 10/06/2024 Subjective Subjective Narrative: Patient is an 79-year-old female with medical history as listed below who presented to [facility] due to abdominal pain. Patient was seen earlier yesterday morning for back pain and was treated with [place] and reports that helped with her pain however she kept having abdominal pain for which she returnto ER later yesterday and was evaluated. Reported right upper quadrant pain, worsening with inspiration, denies any nausea or vomiting or diarrhea. Denies fevers or chills at home. 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 The patient has just finished [...] Lactated Ringers IV 10/06/25 04:44 75 mls/hr .[id number] MARCIA Administration Ertapenem 0.5 gm/ Sodium 100 [...] Vial.Pf INJECTION 10/06/25 08:59 Not Given Q12HR [facility] Sodium Chloride 0 ml 10/06/24 08:18 Sodium [...] <Electronically signed by Chema Gupta DO> 10/06/24 [facility]6 [facility] Work Phone: 1(420) 926-331707-26-2025 [place] [address] Hospitalist Progress Note Signed Patient: Radha Barraza MR#: [id number] 803 : 1945 Acct:[id number] Age/Sex: 79 / F Adm Date: 5 Loc: 4N Room: [address] [place] [address] Type: ADM IN Attending Dr: Chema Gupta DO Copies to: ~ Date of Service: 10/06/2024 Subjective Subjective Narrative: Patient is an 79-year-old female with medical history as listed below who presented to [facility] due to abdominal pain. Patient was seen earlier yesterday morning for back pain and was treated with [place] and reports that helped with her pain however she kept having abdominal pain for which she returnto ER later yesterday and was evaluated. Reported right upper quadrant pain, worsening with inspiration, denies any nausea or vomiting or diarrhea. Denies fevers or chills at home. 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 The patient has just finished [...] Lactated Ringers IV 10/06/25 04:44 75 mls/hr .[id number] MARCIA Administration Ertapenem 0.5 gm/ Sodium 100 [...] 50 Mg Tablet PO 10/07/25 08:59 DAILY [facility] Ondansetron HCl 4 mg 10/06/24 11:24 Ondansetron 4 Mg/2 Ml Vial IV-PUSH 10/06/25 11:23 Q6H PRN Nausea And Vomiting Prochlorperazine Edisylate 5 mg 10/06/24 04:34 Prochlorperazine Edisylate 10 Mg/2 Ml Vial IV-PUSH 10/06/25 04:33 Q4H PRN Nausea And Vomiting Sodium Chloride 10 ml 10/06/24 09:00 10/06/24 13:50 Sodium Chloride 0.9 % 10 Ml Vial.Pf INJECTION 10/06/25 08:59 Not Given Q12HR [facility] Sodium Chloride 0 ml 10/06/24 08:18 Sodium Chloride 0.9 % 10 Ml Syringe IV-PUSH 10/06/25 08:17 PRN PRN Flush Trazodone HCl 50 mg 10/07/24 21:00 Trazodone 50 Mg Tablet PO 10/07/25 20:59 QPM [facility] A&P - Hospitalist Assessment/Plan (1) Heart murmur: [...] Gupta DO 1509 Signed By: 10/06/24 1514 [facility]07-26-2025 Consult note Author Shahriar Warren [facility] Note Date/Time October 06, 2024 8:11 am [facility] [address] [place] [address] General Surgery Consult Note Signed Patient: Radha Barraza MR#: [id number] 803 : 1945 Acct:[id number] Age/Sex: 79 / F Adm Date: 5 Loc: Room: [address] [place] [address] Type: ADM IN Attending Dr: Chema Gupta DO Copies to: MD Chema Dumont DO Paul C Laffay, DO~ History of Present Illness Date of consult: 10/06/2024 Requesting/Attending Provider: Chema Gupta DO History of present illness: Patient went to [place] emergency department on night with severe backpain. [...] negative unless noted below or in HPI [facility] Medical History Heart murmur Osteoarthritis Surgical [...] Mg/2 Ml Vial) 20 mg IV-PUSH Q12HR [facility] Stop: 10/06/25 08:59 Hydralazine HCl (Hydralazine 20 Mg/Ml Vial) 10 mg IV-PUSH Q4H PRN PRN Reason: if SBP > 185 Stop: 10/06/25 04:36 Lactated Ringer's (Lactated Ringers) 1,000 mls @ 75 mls/hr IV .[id number] [facility] Stop: 10/06/25 04:44 Last Admin: 10/06/24 05:03 Dose: 75 mls/hr Ertapenem 0.5 gm/ Sodium (Chloride) 100 mls @ 200 mls/hr IV Q24H [facility] Stop: 10/07/25 01:59 Morphine Sulfate (Morphine Sulfate [...] 10 Ml Vial.Pf) 10 ml INJECTION Q12HR [facility] Stop: 10/06/25 08:59 Exam Physical Exam Vital [...] % (Auto) 89.1, Lymph % (Auto) 6.6, Hinds % (Auto) 3.9, Eos % (Auto) 0.2, Baso % (Auto) 0.2, Nucleat RBC Rel Count 0.0, Neut # (Auto) 9.9 H, Lymph # (Auto) 0.7 L, Hinds # (Auto) 0.4, Eos # (Auto) 0.0, [...] signed by DO Shahriar Warren> 10/06/24 0811 [facility] Work Phone: 1(250) 690-242307-26-2025 [place] [address] General Surgery Consult Note Signed Patient: Radha Barraza MR#: [id number] 803 : 1945 Acct:[id number] Age/Sex: 79 / F Adm Date: 5 Loc: Room: [address] [place] [address] Type: ADM IN Attending Dr: Chema Gupta DO Copies to: MD Chema Dumont DO Paul C Laffay, DO~ History of Present Illness Date of consult: 10/06/2024 Requesting/Attending Provider: Chema Gupta DO History of present illness: Patient went to [place] emergency department on night with severe backpain. [...] negative unless noted below or in HPI [facility] Medical History Heart murmur Osteoarthritis Surgical [...] Mg/2 Ml Vial) 20 mg IV-PUSH Q12HR [facility] Stop: 10/06/25 08:59 Hydralazine HCl (Hydralazine 20 Mg/Ml Vial) 10 mg IV-PUSH Q4H PRN PRN Reason: if SBP > 185 Stop: 10/06/25 04:36 Lactated Ringer's (Lactated Ringers) 1,000 mls @ 75 mls/hr IV .[id number] [facility] Stop: 10/06/25 04:44 Last Admin: 10/06/24 05:03 Dose: 75 mls/hr Ertapenem 0.5 gm/ Sodium (Chloride) 100 mls @ 200 mls/hr IV Q24H [facility] Stop: 10/07/25 01:59 Morphine Sulfate (Morphine Sulfate [...] 10 Ml Vial.Pf) 10 ml INJECTION Q12HR [facility] Stop: 10/06/25 08:59 Exam Physical Exam Vital [...] % (Auto) 89.1, Lymph % (Auto) 6.6, Hinds % (Auto) 3.9, Eos % (Auto) 0.2, Baso % (Auto) 0.2, Nucleat RBC Rel Count 0.0, Neut # (Auto) 9.9 H, Lymph # (Auto) 0.7 L, Hinds # (Auto) 0.4, Eos # (Auto) 0.0, [...] DO 10/06/24 0803 Signed By: 10/06/24 0811 [facility]07-26-2025 History and physical note Author Kimberly Sanchez [facility] Note Date/Time October 06, 2024 5:53 am [facility] [address] [place] [address] Hospitalist H&P Signed Patient: Radha Barraza MR#: [id number] 803 : 1945 Acct:[id number] Age/Sex: 79 / F Adm Date: 5 Loc: Room: [address] [place] [address] Type: ADM IN Attending Dr: Kimberly Sanchez MD Copies to: MD Kimberly Dumont MD~ HPI DATE OF EXAMINATION: 10/06/24 CHIEF COMPLAINT: Abd pain HISTORY OF PRESENT ILLNESS: Patient is an 79-year-old female with medical history as listed below who presented to [facility] due to abdominal pain. Patient was seen earlier yesterday morning for back pain and was treated with [place] and reports that helped with her pain however she kept having abdominal pain for which she returnto ER later yesterday and was evaluated. Reported right upper quadrant pain, worsening with inspiration, denies any nausea or vomiting or diarrhea. Denies fevers or chills at home. CT scan at [facility] showed distended gallbladder with mild gallbladder wall [...] negative unless noted below or in HPI [facility] Medical History Heart murmur Osteoarthritis Surgical [...] here 100.3F, had leukocytosis around 12 at [place] -CT AP done and reviewed, showed distended [...] signed by Kimberly Sanchez MD> 10/06/24 0553 [facility] Work Phone: 1(323) 645-212907-26-2025 Evaluation note* Diagnosis Onset Date Resolution Status Admit Date Acute cholecystitis acute October 06, 2024 4:05am Acute gangrenous cholecystitis acute October 06, 2024 4:05am Heart murmur acute October 06, 2 025 4:05am Intractable right upper quad rant abdominal pain acute October 06, 2024 4:05am Leukocytosis acute October 06, 2 025 4:05am [facility] Work Phone: 1(242) 940-916007-26-2025 [place] [address] Hospitalist H&P Signed Patient: Radha Barraza MR#: [id number] 803 : 1945 Acct:[id number] Age/Sex: 79 / F Adm Date: 5 Loc: Room: [address] [place] [address] Type: ADM IN Attending Dr: Kimberly Sanchez MD Copies to: MD Kimberly Dumont MD~ HPI DATE OF EXAMINATION: 10/06/24 CHIEF COMPLAINT: Abd pain HISTORY OF PRESENT ILLNESS: Patient is an 79-year-old female with medical history as listed below who presented to [facility] due to abdominal pain. Patient was seen earlier yesterday morning for back pain and was treated with [place] and reports that helped with her pain however she kept having abdominal pain for which she returnto ER later yesterday and was evaluated. Reported right upper quadrant pain, worsening with inspiration, denies any nausea or vomiting or diarrhea. Denies fevers or chills at home. [facility] [facility] showed distended gallbladder with mild gallbladder wall [...] negative unless noted below or in HPI [facility] Medical History Heart murmur Osteoarthritis Surgical [...] here 100.3F, had leukocytosis around 12 at [place] -CT AP done and reviewed, showed distended [...] 10/06/24 04 38 Signed By: 10/06/24 0553 [facility]07-21-2025 Telephone encounter Note* Telephone Encounter - Shari Olmos MA - 10/01/2024 12:45 PM EDT [facility] faxing over the EKG. [facility] [id number] Telephone encounter Note* Telephone Encounter - Shari [...] symptoms as well ----- Message ----- From: [facility] Results In Sent: 09/27/2024 9:07 AM EDT To: China Ortiz NP [facility] CenterBmuybtquhb06-33-1055 Miscellaneous Notes* Telephone Encounter - Shari Olmos [...] symptoms as well ----- Message ----- From: [facility] Results In Sent: 09/27/2024 9:07 AM [...] symptoms as well ----- Message ----- From: [employer] Lab Results In Sent: 09/27/2024 9:07 AM [...] as well ----- Message ----- From: [facility] [employer] Lab Results In Sent: 09/27/2024 9:07 AM EDT To: China Ortiz NP documented in this [facility]07-21-2025 Telephone encounter Note* Telephone Encounter - Shari Olmos MA - 10/01/2024 12:39 PM EDT ----- Message from China Diana sent at 09/28/2024 10:08 AM EDT ----- Labs stable, did she complete her EKG? We should also repeat her echo as she had mild to moderate stenosis of her aortic valve and we want to make sure this is not worsening as it can be a cause of her symptoms as well ----- Message ----- From: [employer] Lab Results In Sent: 09/27/2024 9:07 AM EDT To: China Ortiz NP [facility] [id number] Telephone encounter Note* Telephone Encounter - Shari Olmos MA - 10/01/2024 12:37 PM EDT She did get the EKG done the next morning. ( Ill call them to get report)And she is agreeable to the echo if you place the order thank you! [facility] [id number] Telephone encounter Note* Telephone Encounter - Shari [...] as well ----- Message ----- From: [employer] [facility] Results In Sent: 09/27/2024 9:07 AM EDT To: China Ortiz NP [facility] CenterWttgnisfpy05-07-5615 History of Present illness Narrative* China Ortiz NP - 09/26/2024 2:00 PM EDTAssociated Problem(s): Stage 3b chronic kidney disease (CMS-HCC) Orders: Comprehensive metabolic panel; Future -check renal function. Avoid nephrotoxic medications. * hCina Ortiz NP - 09/26/2024 2:00 PM EDTAssociated [...] is not under the care of a fashion consultant sales and does notrecall undergoing an echocardiogram last [...] of meds. Stage 3b chronic kidney disease ([facility]-HCC) Orders: Comprehensive metabolic panel; Future -check [...] bronchitis. Refuses wellness today documented in this encounterJohn [facility]. [facility] [id number] History of Present illness Narrative* China Ortiz, HEAD CHARGER - 05/09/2024 10:30 AM EST Images from [...] PRN atorvastatin (LIPITOR) 20 mg, Oral, Daily sxataugqum-zwqzerfyghpih-hmonqzxr 50-325-40 MG tablet 1 tablet, Every 4 [...] nebulizer treatments as prescribed. documented in this [facility]02-10-2025 Telephone encounter Note* Telephone Encounter - Yasmin Suresh - 04/23/2024 3:36 PM EST Pt needs a confirmation of 3 mos supply sent to [facility] Fluticasone-salmeterol 250-50 mcg/act aerosol powder [facility] [id number] Miscellaneous Notes* Telephone Encounter - Yasmin Suresh - 04/23/2024 3:36 PM EST Pt needs a confirmation of 3 mos supply sent to [facility] Fluticasone-salmeterol 250-50 mcg/act aerosol powder documented in this [facility]11-12-2024 History of Present illness Narrative* Roger Vasquez [...] once daily, Disp: 90 tablet, Rfl: 0 igcdpnbofl-grnulbxxpfcte-neyfswpt 50-325-40 MG tablet, Take 1 tablet by [...] understanding. Roger Vasquez DPM documented in this [facility]11-12-2024 Instructions* Patient Instructions* Roger Vasquez DPM - 01/24/2024 1:00 PM EST As noted documented in this [facility]10-10-2024 Telephone encounter Note* Telephone Encounter - Naila Orellana MD - 12/22/2023 12:30 PM EDT Approvals with refills [place] [id number] Miscellaneous Notes* Telephone Encounter - Naila Orellana MD - 12/22/2023 12:30 PM EDT Approvals with refills documented in this [facility]10-01-2024 Telephone encounter Note* Telephone Encounter - Ogla Lidia Saucedo - 12/13/2023 10:35 AM EDT Patient called and would like an order for a mammogram sent over. Last one on 12/20/2022. Thank you [facility] [id number] Miscellaneous Notes* Telephone Encounter - Olga Lidia Saucedo - 12/13/2023 10:35 AM EDT Patient called and would like an order for a mammogram sent over. Last one on 12/20/2022. Thank you documented in this [facility]09-05-2024 Telephone encounter Note* Telephone Encounter - Shari Mckeon MD - 11/17/2023 4:48 PM EDT Refills sent. [facility] [id number] Miscellaneous Notes* Telephone Encounter - Shari Mckeon MD - 11/17/2023 4:48 PM EDT Refills sent. documented in this [facility]02-14-2024 Telephone encounter Note* Telephone Encounter - Pati Valentino - 04/27/2023 1:09 PM EST Called pt and informed 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 Allergies: NKDA . Her call back [phone] documented in this encounterJohn J. 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 Allergies: NKDA . Her call back [phone] [facility] [id number] Telephone encounter Note* Telephone Encounter - Shari Mckeon MD - 04/21/2023 7:05 PM EST Refills sent. [facility] [id number] Miscellaneous Notes* Telephone Encounter - Shari Mckeon MD - 04/21/2023 7:05 PM EST Refills sent. documented in this encounterJohn J. [facility] Medical [id number] Note [id number]05-15-2023 [facility] SURGERY Clinical Discharge Summary PERSON INFORMATION Name RADHA BARRAZA Age 77 Years 1945 Sex FEMALE Language Persian PCP SHARI MCKEON Marital Status Med Service Ambulatory Surgery Acct# Arrival 07/26/2022 05:52:10 Visit Reason SURGERY - LEFT REVERSE TOTAL SHOULDER - ARTHREX Acuity LOS 05 02:57 Address: [address] [place] [address] [place] [id number] Comment: PROVIDER INFORMATION VITALS INFORMATION Vital Sign [...] DEPART REASON INCOMPLETE INFORMATION (more content not included)...[id number] NoteOPERATIVE NOTE OPERATION DATE: 02/01/2020 PREOPERATIVE DIAGNOSIS: [...] position. She was sedated by the nurse echocardiologist. Bite block was placed in her mouth. [...] patient tolerated the procedure without any difficulties. [facility] SIGNED AND APPROVED BY: DR CARLOS EDUARDO MENENDEZ . 02/07/2020 09:15:00[facility] Diagnosis Essential hypertension (CMS/HCC) Unspecified essential [...] whether complicated (CMS/HCC) documented in this encounter [facility] HealthcareEvaluation note* Diagnosis Essential hypertension (CMS/HCC) Unspecified essential hypertension documented in this encounter [facility] HealthcareEvaluation note* Diagnosis Mild intermittent asthma, unspecified [...] Acute cholecystitis- Primary documented in this encounter [facility] HealthcareEvaluation note* Diagnosis Primary hypertension- Primary Unspecified essential hypertension Stage 3b chronic kidney disease (CMS-HCC) Pure hypercholesterolemia Pure hypercholesterolemia Irregular heart beat Unspecified cardiac dysrhythmia Shortness of breath Chronic obstructive pulmonary disease, unspecified COPD type (HCC) Moderate aortic regurgitation PVC (premature ventricular contraction) Other premature beats Acute cholecystitis- Primary documented in this encounter [facility] HealthcareHospital Discharge instructions Additional Instructions DISCHARGE INSTRUCTIONS [...] appointment on Tuesday or for drain removal. [facility] Work Phone: Summary Purpose Family History Relationship [...] and content) DATE CREATED AUTHOR 05/27/2018 [facility] DATE CREATED AUTHOR AUTHOR'S ORGANIZ ATION 11/06/2020 [facility] DATE CREATED AUTHOR AUTHOR'S ORGANIZ ATION 05/12/2022 [facility] DATE CREATED AUTHOR AUTHOR'S ORGANIZ ATION 07/28/2022 [facility] DATE CREATED AUTHOR AUTHOR'S ORGANIZ ATION 03/05/2024 [facility] DATE CREATED AUTHOR AUTHOR'S ORGANIZ ATION 10/23/2024 [facility] DATE CREATED AUTHOR AUTHOR'S ORGANIZ ATION 11/02/2024 [facility] DATE CREATED AUTHOR AUTHOR'S ORGANIZ ATION 11/04/2024 [facility] EPIC DATE CREATED AUTHOR AUTHOR'S ORGANIZ ATION 12/01/2024 [facility] Reason for Visit (unrecogniz ed section [...] Care Teams (unrecognized sec tion and content) Data Steward Relationship Specialty Start Date End Date Tamara Aparicio NP [address] [place] [address] PCP - Cristobal FIGUEROA 03/21/21 Shari Mckeon MD [address] [place] [address] PCP - General Family Medicine 07/26/22 Data Steward Relationship Specialty Start Date End Date Tamara Aparicio NP [address] [place] [address] PCP - Cristobal FIGUEROA 03/21/21 Shari Mckeon MD [address] [place] [address] PCP - General Family Medicine 07/26/22 Data Steward Relationship Specialty Start Date End Date Tamara Aparicio NP [address] [place] [address] PCP - Cristobal FIGUEROA 03/21/21 Shari Mckeon MD [address] [place] [address] PCP - General Family Medicine 07/26/22 Data Steward Relationship Specialty Start Date End Date Tamara Aparicio NP [address] [place] [address] PCP - Cristobal FIGUEROA 03/21/21 Shari Mckeon MD [address] [place] [address] PCP - General Family Medicine 07/26/22 Data Steward Relationship Specialty Start Date End Date Tamara Aparicio NP [address] [place] [address] PCP - Cristobal FIGUEROA 03/21/21 Shari Mckeon MD [address] [place] [address] PCP - General Family Medicine 07/26/22 Data Steward Relationship Specialty Start Date End Date Tamara Aparicio NP [address] [place] [address] PCP - Cristobal FIGUEROA 03/21/21 Shari Mckeon MD [address] [place] [address] PCP - General Family Medicine 07/26/22 Data Steward Relationship Specialty Start Date End Date Tamara Aparicio NP [address] [place] [address] PCP - Cristobal FIGUEROA 03/21/21 Shari Mckeon MD [address] [place] [address] PCP - General Family Medicine 07/26/22 Data Steward Relationship Specialty Start Date End Date Tamara Aparicio NP [address] [place] [address] PCP - Cristobal FIGUEROA 03/21/21 Shari Mckeon MD [address] [place] [address] PCP - General Family Medicine 07/26/22 Data Steward Relationship Specialty Start Date End Date Tamara Aparicio NP [address] [place] [address] PCP - Cristobal FIGUEROA 03/21/21 Shari Mckeon MD [address] [place] [address] PCP - General Family Medicine 07/26/22 Data Steward Relationship Specialty Start Date End Date Shari Mckeon MD [address] [place] [address] PCP - General Family Medicine 07/26/22 Data Steward Relationship Specialty Start Date End Date Shari Mckeon MD [address] [place] [address] PCP - General Family Medicine 07/26/22 Data Steward Relationship Specialty Start Date End Date Shari Mckeon MD [address] [place] [address] PCP - General Family Medicine 07/26/22 Data Steward Relationship Specialty Start Date End Date Shari Mckeon MD [address] [place] [address] PCP - General Family Medicine 07/26/22 Data Steward Relationship Specialty Start Date End Date Shari Mckeon MD [address] [place] [address] PCP - General Family Medicine 07/26/22 Data Steward Relationship Specialty Start Date End Date Shari Mckeon MD [address] [place] [address] PCP - General Family Medicine 07/26/22 Data Steward Relationship Specialty Start Date End Date Shari Mckeon MD [address] [place] [address] PCP - General Family Medicine 07/26/22 Team [...] Active Start: 2024 End: October 07, 2024 Data Steward Relationship Specialty Start Date End Date Shari Mckeon MD [address] [place] [address] PCP - General Family Medicine 07/26/22 Data Steward Relationship Specialty Start Date End Date Shari Mckeon MD [address] [facility] [place] [address] PCP - General Family Medicine 07/26/22 Data Steward Relationship Specialty Start Date End Date Shari Mckeon MD [address] [place] [address] PCP - General Family Medicine 07/26/22 Anh King LPN Licensed Practical Nurse Family Medicine 11/05/24 Data Steward Relationship Specialty Start Date End Date Shari Mckeon MD [address] [place] [address] PCP - General Family Medicine 07/26/22 Anh [...] BE BASED ON THE PRIMARY CLINICAL RECORDS. [facility]. provides no warranty or guarantee of the accuracy or completeness of information in this document.
[2024-12-03 11:37] LABS: Anion Gap 10.1; Blood Urea Nitrogen 23.0 mg/dL (7.0-18.0); Calcium 9.0 mg/dL (8.5-10.1); Carbon Dioxide 27.1 mmol/L (21.0-32.0); Chloride 108 mmol/L (98-107); Estimated GFR (African America 50 (>=60 mL/min/1.73m^2); Estimated GFR (Non-African Ame 42 (>=60 mL/min/1.73m^2); Glucose 90 mg/dL (74-106); Potassium 4.2 mmol/L (3.5-5.1); Sodium 141 mmol/L (136-145)
== END 2024-12-03 11:01 | disposition home or self-care (01) ==
LOC: LAB 11:04
PROVIDERS: PCP Family Medicine; Visit Provider Nurse Practitioner Family
DX: I51.89 Other ill-defined heart diseases (principal); I27.20 Pulmonary hypertension, unspecified
CPT/HCPCS: 36415; 80048

== ENCOUNTER 2025-01-01 17:16 | Emergency (ER) | payer MEDICARE, SELFPAY ==
[2025-01-01] VITALS (25 sets, daily range): BP systolic 155–187; BP diastolic 74–108; PULSE 56–89; TEMP 36.6–36.9; O2SAT 90–99; BMI 21.0
--- OUTSIDE RECORDS SUMMARY | 2025-01-01 17:22 | XMS_ITS | CCD ---
Author Organization [facility] CliniSyme Care Team Providers Care Pipe Fittings Molder Name Role Phone PHYSICIAN, DEFAULT Admitting Unavailable [...] Ede Ramos Attending Unavail able Alessandra HEAD TRACK COACH, Tamara Plascencia Unavailable Shari Mckeon MD Primary Care Provider Jovi JAIMES, Kei Brian Attending Unavailable Jovi JAIMES, Kei Brian Attending Unavailable Giedraitis , Andrius Snehal Attending Unavailable Giedraitis , Andrius Snehal Attending Unavailable Giedraitis , Andrius Vytkristin Attending Unavailable Giedraitis , Andrius Vkaityautanthony Attending Unavailable Giedraitis , Andrius Vytkristin Attending Unavailable Giedraitis , Andrius Snehal Attending Unavailable Giedraitis , Andrius Snehal Attending Unavailable Giedraitis , Andrius Snehal Attending Unavailable Shari Michel MD Primary Care Pr ovider Kimberly Sanchez MD Admit Provider [phone] Chema Gupta DO Attending Provider Shahriar Warren DO Provider Kimberly Sanchez Admitting Unavailable Shari Michel Primary Care Un available Shahriar Warren Consulting Unavailable Chema Gupta Attending Unavailabl SHARI Beal Referring Unavailable SHARI MCKEON Primary Care Unavailable CHINA ORTIZ Referring Unavailable SHARI MCKEON Primary Care Unavailable CHINA ORTIZ Attending Unavailable CHINA ORTIZ Attending Unavailable SHAHRIAR WARREN Attending Unavailable SHAHRIAR WARREN Attending Unavailable SHARI MCKEON Referring Unavailable ROGER VASQUEZ Attending Unavailable Anh King LPN Unavailable BENNY BURROWS Attending Unavailable RAMIRO GILMORE Attending Unavailable Allergies Allergy ClassificationReported Allergen(s)Allergy TypeDate of OnsetReaction(s) Facility (2 sources)Alendronate; Translations: [Fosamax][facility]rug [facility]ergyThe [facility] (20 sources)Alendronate; Translations: [ALENDRONATE]Drug [id number] UnknownNOMO Healthcare Medications Current Medications MedicationDrug Class(es)DatesSig (Normalized)Sig (Original)acetaminophen 325 mg / butalbital 50 mg / caffeine 40 mg oral tablet (20 sources)Barbiturate, Central Nervous System Stimulant, Methylxanthinetake 1 tablet by mouth every four hours as wqzogzfcaymgueaa-qzwilkxsjnwjq-fgqawizd 50-325-40 MG tablet Take 1 tablet by mouth every 4 (four) hours if needed (headache) Activeacetaminophen 300 mg / codeine phosphate 30 mg oral tablet (18 sources)Opioid AgonistStart: 84-50-3417oellwfeameutr-codeine (Tylenol w/ Codeine #3) 300-30 MG tablet Take 1 tablet by mouth as needed in the morning and 1 tablet as needed in the evening. 03/28/2024 ActiveStart: 16-58-9899zypi 1 tablet by mouth twice daily as needed for painAcetaminophen-Codeine 300-30 mg tablet Active 1 TAB PO Twice daily as needed for pain October 06, 2024 12:00am Complies with drug therapyacetaminophen 325 mg / HYDROcodone bitartrate 5 mg oral tablet (9 sources)Opioid AgonistStart: 64-51-9235zvvy 1 tablet by mouth once daily as needed for painHydrocodone-Acetaminophen 5-325 mg tablet Active 1 TAB PO Daily as needed for pain October 06, 2024 12:00am Complies with drug therapyStart: 66-51-7646yebn 1 tablet by mouth every six hours as needed for pain and pain HYDROcodone-acetaminophen (Ryan) 5-325 MG tablet Take 1 tablet by mouth every 6 (six) hours if needed for moderate pain or severe pain 10/05/2024 Active [id number] 200 actuat albuterol 0.09 mg/actuat metered dose inhaler (8 sources)beta2-Adrenergic AgonistStart: 83-77-8893osip 2 puff(s) by inhalation twice daily as needed for wheezingalbuterol HFA 90 mcg/act inhaler Inhale 2 puffs 2 (two) times a day as needed for wheezing or shortness of breath 10/06/2024 ActiveAlbuterol 90 mcg/actuation aerosol (1 source)Start: 66-32-4413lrkx 90 ug by inhalation twice daily as needed for wheezingAlbuterol 90 mcg/actuation aerosol Active 90 MCG INHALATION Twice daily as needed for shortness of breath or wheezing October 06, 2024 12:00am Complies with drug therapyamoxicillin 500 mg oral tablet (1 source)Penicillin-class AntibacterialStart: 04-27-2023 End: 76-55-2414thzp 4 tablets by mouth onceamoxicillin (Amoxil) 500 MG tablet Indications: S/P reverse total shoulder arthroplasty, left 4 tabs PO once 30-60 mins before procedure 4 tablet 0 04/27/2023 05/04/2023 Activeamoxicillin 875 mg / clavulanate 125 mg oral tablet (3 sources)Penicillin-class AntibacterialStart: 10-07-2024 End: 95-09-1298daqv 1 tablet by mouth in the morningamoxicillin-clavulanate (Augmentin) 875-125 MG tablet Take 1 tablet by mouth in the morning and 1 tablet before bedtime. 10/07/2024 10/12/2024 ActiveStart: 94-18-5976gvao 1 tablet by mouth every twelve hoursatorvastatin 20 mg oral tablet (20 sources)HMG-CoA Reductase InhibitorStart: 13-91-4117omim 1 tablet by mouth once dailyatorvastatin (Lipitor) 20 MG tablet Indications: Mixed hyperlipidemia take 1 tablet by mouth once daily 90 tablet 09/28/2023 ActiveStart: 04-11-2023 take 1 tablet by mouth once dailyatorvastatin (Lipitor) 20 MG tablet Indications: Mixed hyperlipidemia (CMS/HCC) take 1 tablet by mouth once daily 90 tablet 0 04/11/2023 Activeazithromycin 250 mg oral tablet (3 sources)Macrolide AntimicrobialStart: 05-09-2024 End: 08-79-9322vxac 2 tablets by mouth once daily, then take 1 tablet by mouth once dailyazithromycin (Zithromax) 250 MG tablet Indications: Chronic obstructive pulmonary disease with acute exacerbation (CMS/HCC) Take 2 tablets (500 mg) by mouth Daily for 1 day, THEN 1 tablet (250 mg) Daily for 4 days. 6 tablet 05/09/2024 05/14/2024 ActiveStart: 04-18-2023 End: 07-45-1088nhoi 2 tablets by mouth once daily, then take 1 tablet by mouth once dailyazithromycin (Zithromax) 250 MG tablet Indications: Upper respiratory tract infection, unspecified type Take 2 tablets (500 mg) by mouth Daily for 1 day, THEN 1 tablet (250 mg) Daily for 4 days. 6 tablet 0 04/18/2023 04/23/2023 Activecalcium carbonate 1500 mg / cholecalciferol 200 unt oral capsule (1 source)Vitamin DStart: 26-37-9367iydk 1 capsule by mouth twice dailyCalcium Carbonate-Vitamin D3 (Calcium 600 + D(3)) 600 mg-5 mcg (200 unit) capsule Active 1 CAP PO Twice daily October 06, 2024 12:00am Complies with drug therapyCALCIUM- VITAMIN D PO (20 sources)Start: 93-81-7563CJININT-VITAMIN D PO in the morning and before bedtime. 06/29/2022 ActiveStart: 98-14-4212RRQRVKN-VITAMIN D PO 2 (two) times a day. 06/29/2022 ActiveStart: 56-41-7287KWBORMW-VITAMIN D PO 2 (two) times a day. 0 06/29/2022 ActivediazePAM 5 mg oral tablet (2 sources)BenzodiazepineStart: 45-38-6646lwgpbNYL (Valium) 5 MG tablet Indications: Chronic midline low back pain without sciatica 1 tablet po q.6 hours p.r.n. muscle spasms 20 tablet 0 02/08/2023 Reruof75 actuat fluticasone propionate 0.25 mg/actuat / salmeterol 0.05 mg/actuat dry powder inhaler (20 sources)Corticosteroid, beta2-Adrenergic AgonistStart: 02-07-2024 End: 26-56-3212rjhc 1 puff(s) by inhalation in the morningFluticasone-Salmeterol 250-50 MCG/ACT aerosol powder Indications: Mild intermittent asthma, unspecif ied whether complicated (HCC) Inhale 1 puff in the morning and 1 puff before bedtime. 180 each 1 04/05/2024 ActiveStart: 33-09-2921ljpn 1 puff(s) by inhalation in the morningFluticasone-Salmeterol 250-50 MCG/ACT aerosol powder Indications: Mild intermittent asthma, unspecified whether complicated (CMS/HCC) Inhale 1 puff in the morning and 1 puff before bedtime. 180 each 1 12/09/2023 ActiveStart: 10-13-2023 End: 25-06-2175oxuq 1 puff(s) by inhalation in the morningFluticasone-Salmeterol 250-50 MCG/ACT aerosol powder Indications: Mild intermittent asthma, unspecif ied whether complicated (CMS/HCC) Inhale 1 puff in the morning and 1 puff before bedtime. 180 each 1 02/07/2024 ActiveStart: 04-08-2023 End: 52-58-0311gfjz 1 puff(s) by inhalation in the morningFluticasone-Salmeterol 250-50 MCG/ACT aerosol powder Indications: Mild intermittent asthma, unspecif ied whether complicated (CMS/HCC) Inhale 1 puff in the morning and 1 puff before bedtime. 60 each 07/07/2023 Activefurosemide 20 mg oral tablet (9 sources)Loop DiureticStart: 64-88-1358egkp 1 tablet by mouth every twenty- four hours as neededfurosemide (Lasix) 20 MG tablet Take 20 mg by mouth Daily as needed (leg swelling) 10/07/2024 ActivehydroCHLOROthiazide 12.5 mg / losartan potassium 100 mg oral tablet (20 sources)Thiazide Diuretic, Angiotensin 2 Receptor BlockerStart: 10-22-2024 take 1 tablet by mouth once daily in the morninglosartan-hydroCHLOROthiazide (Hyzaar) 100-12.5 MG tablet Indications: Essential hypertension TAKE 1TABLET BY MOUTH EVERY DAY IN THE MORNING 100 tablet 10/22/2024 ActiveStart: 44-77-7429ypzg 1 tablet by mouth once dailyLosartan-Hydrochlorothiazide 100-12.5 mg tablet Active 1 TAB PO Daily October 06, 2024 12:00am Complies with drug therapyStart: 11-07-8008ybyw 1 tablet by mouth in the morninglosartan-hydroCHLOROthiazide (Hyzaar) 100-12.5 MG tablet Indications: Essential hypertension Take 1tablet by mouth in the morning. 100 tablet 05/21/2024 ActiveStart: 80-10-5855xfeu 1 tablet by mouth once daily in the morninglosartan-hydroCHLOROthiazide (Hyzaar) 100- 12.5 MG tablet Indications: Essential hypertension (CMS/HCC) TAKE 1 TABLET BY MOUTH EVERY DAY IN THE MORNING 100 tablet 03/19/2024 ActiveStart: 67-07-1051glzz 1 tablet by mouth in the morninglosartan-hydroCHLOROthiazide (Hyzaar) 100-12.5 MG tablet Indications: Essential hypertension (CMS/HCC) Take 1 tablet by mouth in the morning. 100 tablet 1 11/17/2023 ActiveStart: 04-21-2023 End: 11-73-5748rzls 1 tablet by mouth once daily in the morninglosartan- hydroCHLOROthiazide (Hyzaar) 100-12.5 MG tablet Indications: Essential hypertension (CMS/HCC) take 1 tablet by mouth every morning 100 tablet 1 04/21/2023 11/17/2023 Discontinued (Reorder)Start: 01-18-2023 End: 29-40-4405xnjy 1 tablet by mouth in the morninglosartan-hydroCHLOROthiazide (Hyzaar) 100-12.5 MG tablet Indications: Essential hypertension (CMS/HCC) Take 1 tablet by mouth in the morning. 100 tablet 0 01/18/2023 04/21/2023 Itahdoxaxoeo34 hr metoprolol succinate 25 mg extended release oral tablet (11 sources)beta-Adrenergic BlockerStart: 83-95-7927fkxr 1 tablet by mouth once dailymetoprolol succinate XL (Toprol-XL) 25 MG 24 hr tablet Indications: PVC (premature ventricular contraction) TAKE 1 TABLET (25 MG) BY MOUTH DAILY DO NOT CRUSH OR CHEW. 90 tablet 10/22/2024 ActiveStart: 09-34-2625azun 1 tablet by mouth once dailymetoprolol succinate XL (Toprol-XL) 25 MG 24 hr tablet Indications: PVC (premature ventricular contraction) Take 1 tablet (25 mg) by mouth Daily Do not crush or chew. 90 tablet 10/03/2024 ActiveMultiple Vitamin (multivitamin) capsule (20 sources)take 1 capsule by mouth once dailyMultiple Vitamin (multivitamin) capsule Take 1 capsule by mouth Daily Activetake 1 capsule by mouth in the morningMultiple Vitamin (multivitamin) capsule Take 1 capsule by mouth in the morning. Activetake 1 capsule by mouth in the morningMultiple Vitamin (multivitamin) capsule Take 1 capsule by mouth in the morning. 0 Active Multivitamin tablet (1 source)Start: 56-53-9344moxb 1 tablet by mouth once dailyMultivitamin tablet Active 1 TAB PO Daily October 06, 2024 12:00am Complies with drug therapy ondansetron 4 mg oral tablet (17 sources)Serotonin-3 Receptor AntagonistStart: 68-11-7284vgrp 1 tablet by mouth every twenty-four hours as neededondansetron (Zofran) 4 MG tablet Take 4 mg by mouth Daily as needed 04/24/2024 Activerimegepant 75 mg disintegrating oral tablet (2 sources)Start: 31-35-7539qvtz 1 tablet by mouth once daily as needed Rimegepant Sulfate (Nurtec) 75 MG tablet dispersible Indications: Migraine without aura and withoutstatus migrainosus, not intractable (CMS/HCC) Take 75 mg by mouth Daily as needed (as needed for migraines). 10 tablet 0 01/06/2023 ActivetraZODone hydrochloride 50 mg oral tablet (20 sources)Serotonin Reuptake InhibitorStart: 09-26-2023 End: 65-55-6381kdtu 1 tablet by mouth at bedtimetraZODone (Desyrel) 50 MG tablet Indications: Primary insomnia Take 1 tablet (50 mg) by mouth at bedtime 90 tablet 11 12/22/2023 ActiveStart: 47-12-6145nikj 1 tablet by mouth at bedtime traZODone (Desyrel) 50 MG tablet Indications: Primary insomnia Take 1 tablet (50 mg) by mouth at bedtime 90 tablet 1 04/08/2023 Activeturmeric extract 500 mg oral capsule (16 sources) End: 99-51-5383Oqkdllec 500 MG tablet Orally 05/09/2024 DiscontinuedTurmeric 500 MG tablet Orally ActiveTurmeric 500 MG tablet Orally 0 Active Problems Active Problems Problem ClassificationProblemDateDocumented DateEpisodic/ChronicAbdominal pain (11 sources)Right upper quadrant pain; Translations: [Right upper quadrant pain] Onset: 696529-60-7873PqsoedekTqablj (20 sources)Mild intermittent asthma; Translations: [Mild intermittent asthma with status asthmaticus]Onset: 06-12-2017 Resolved: 893466-64-7781WpccfojTjkusrz tract disease (17 sources)Acute cholecystitis; Translations: [Acute cholecystitis]Onset: 847227-99-4624AtfqqrxxTraaphh dysrhythmias (5 sources)Irregular heart beat; Translations: [Cardiac arrhythmia, unspecified] Onset: 545730-67-4989TetkuueEljhgei kidney disease (20 sources)Chronic kidney disease stage 3B ; Translations: [Stage 3b chronic kidney disease (HCC)]Onset: 897323-49-4027LtnduivWepjnqb obstructive pulmonary disease and bronchiectasis (20 sources)Chronic obstructive pulmonary disease, unspecified; Translations: [Chronic obstructive lung disease]Onset: 286099-33-6059QlopuiiZqlcrjoclp heart failure; nonhypertensive (2 sources)Chronic diastolic (congestive) heart failure; Translations: [Chronic diastolic (congestive) heart failure]Onset: 34-46-1625MkejnkmXbheqkvt of white blood cells (11 sources)Leukocytosis; Translations: [Elevated white blood cell count, unspecified]Onset: 267326-90-5197AufhpfzSneaifxmd of lipid metabolism (20 sources)Pure hypercholesterolemia; Translations: [Pure hypercholesterolemia, unspecified]Onset: 928014-54-6773HemqbgiItlykgzyv hypertension (20 sources)Essential (primary) hypertension; Translations: [Essential hypertension]Onset: 02-14-2020 Resolved: 019219-03-4027VmsoeycKdlciuhj; including migraine (20 sources)Migraine, unspecified, not intractable, without status migrainosus; Translations: [Migraine withoutaura, not refractory ]Onset: 03-29-2015 Resolved: 125907-11-9309AqqdwhnEagku valve disorders (20 sources)Nonrheumatic aortic (valve) stenosis; Translations: [Nonrheumatic aortic (valve) stenosis with insufficiency]Onset: 06-12-2017 Resolved: 08-51-5059KuineujLfkooiumdvqmu mental health disorders (1 source)Primary insomnia; Translations: [Primary insomnia]72-35-1840Qdqqbfn Mycoses (2 sources)Onychomycosis due to dermatophyte ; Translations: [Tinea unguium] 51-13-0348WvzalyetTlxuxbgvyjlons (20 sources)Unspecified osteoarthritis, unspecified site; Translations: [Arthritis of left knee]Onset: 06-22-2017 Resolved: 852928-92-6022VxawniiRgnpfgouzows (20 sources)Senile osteoporosis; Translations: [Age-related osteoporosis without current pathological fracture]Onset: 11-04-2017 Resolved: 469575-28-8164MmqwghrXmtra and ill-defined heart disease (2 sources)Other ill-defined heart diseases; Translations: [Other ill-defined heart diseases]Onset: 33-51-6947SvweblqLxprz connective tissue disease (20 sources)Artificial knee joint present; Translations: [Presence of unspecified artificial knee joint]Onset: 680968-49-2084AxnscnlTuilk connective tissue disease (1 source)History of reverse prosthetic total arthroplasty of left shoulder; Translations: [Presence of left artificial shoulder joint]50-23-2139LfmvevoBwgpp connective tissue disease (2 sources)Pain in hallux; Translations: [Pain in left toe(s)]97-89-1536Tyapraqu Other hereditary and degenerative nervous system conditions (20 sources)Restless legs; Translations: [Restless legs syndrome]Onset: 10-26-2017 Resolved: 163067-15-0207IuwnkdhYoogp lower respiratory disease (5 sources)Shortness of breath; Translations: [SHORTNESS OF BREATH]Onset: 83-92-7613MdqbskadGktih lower respiratory disease (4 sources)Dyspnea; Translations: [Shortness of breath]28-32-0335ArkxljakIasnj nervous system disorders (20 sources)Difficulty walking; Translations: [Difficulty in walking, not elsewhere classified]Onset: 095236-25-4761GvcztfgYvwzy nervous system disorders (20 sources)Chronic pain; Translations: [Other chronic pain]Onset: 08-03-2022 03-26-1176NvhxnxeYpnty screening for suspected conditions (not mental disorders or infectious disease) (1 source)Patient encounter status; Translations: [Encounter for screening mammogram for malignant neoplasm of breast]33-28-4955DuhdgtisJrofn skin disorders (2 sources)Dystrophia unguium; Translations: [Nail dystrophy]30-58-1867Pqnsqjiw Other skin disorders (2 sources)Ingrowing nail; Translations: [Ingrowing nail]99-15-8885Gbfhqwka Pulmonary heart disease (2 sources)Pulmonary hypertension, unspecified; Translations: [Pulmonary hypertension, unspecified]Onset: 83-77-2141RtpslhrFazmywvm codes; unclassified (20 sources)Insomnia; Translations: [Other insomnia]Onset: 630007-01-4767 ChronicSpondylosis; intervertebral disc disorders; other back problems (9 sources)Low back pain; Translations: [Low back pain]Onset: 10-08-2024 10-52-3333YlucmtmlNzhqeztoivlu (1 source)Call office on Tuesday to schedule follow-up with Dr. Warren on Tuesday or for drain removal.Unclassified (1 source)Call office on Tuesday to schedule follow-up with your Primary Care Provider within 3-5 days of discharge.Unclassified (1 source)A [facility] screening has identified you as FRAIL [...] to Beat the Frailty Risk [email or web address] (1 source)Low back pain, unspecified; Translations: [Low back pain, unspecified] Onset: 10-06-2024 Past or Other Problems Problem ClassificationProblemDateDocumented DateEpisodic/ChronicFever of unknown origin (4 sources)Fever, unspecified; Translations: [FEVER UNSPECIFIED]Onset: 79-79-2962CuowpelrTdkpa and electrolyte disorders (1 source)Dehydration; Translations: [DEHYDRATION]Onset: 16-02-4189Qvkwvune Gastritis and duodenitis (20 sources)Gastritis, unspecified, without bleeding; Translations: [Bile- induced gastritis]Onset: 02-14-2020 Resolved: 397575-22-8781PrlamvjnDhstv valve disorders (20 sources)Systolic murmur; Translations: [Cardiac murmur, unspecified]Onset: 07-15-2022 Resolved: 433939-25-9680TinwwhgpHruinhoekecak and screening for infectious disease (1 source)Contact with and (suspected) exposure to other viral communicable diseases; Translations: [CONTCT EXPS OTH VIRL COMMUNICABL DZ]Onset: 01-30-2020 EpisodicMood disorders (20 sources)Mood disordersOnset: 337995-05-5321Wwdeg aftercare (1 source)Other oysterman (current) drug therapy; Translations: [OTH RETAIL MANAGER IN TRAINING CURRENT DRUG THERAPY]Onset: 43-24-9436VmszkylbIhgca aftercare (1 source)manager terminal (current) use of aspirin; Translations: [RETAIL MANAGER IN TRAINING CURRENT USE OF ASPIRIN]Onset: 16-99-8691AgjxibgvXfhut gastrointestinal disorders (4 sources)Dysphagia, unspecified; Translations: [DYSPHAGIA UNSPECIFIED]Onset: 79-93-5956SiqdvqniLyuxw gastrointestinal disorders (20 sources)Dysphagia; Translations: [Dysphagia, unspecified]Onset: 07-15-2022 Resolved: 520518-62-2782MchztytiPmtkb lower respiratory disease (1 source)Cough; Translations: [COUGH]Onset: 72-31-5021PtlajujcDnkdk non- traumatic joint disorders (20 sources)Derangement of left shoulder joint; Translations: [Other specific joint derangements of left shoulder, not elsewhere classified]Onset: 07-15-2022 Resolved: 469934-85-0471GudumuuUimbmmvp codes; unclassified (20 sources)Poor sleep pattern; Translations: [Other sleep disorders]Onset: 08-21-2020 Resolved: 544443-47-5432ZvcljevFbugjdfe codes; unclassified (20 sources)Postmenopausal state; Translations: [Asymptomatic menopausal state] Onset: 06-28-2015 Resolved: 713155-42-8597HdwhiwouFdfjoieoekbv (1 source)Moderate aortic ubtmwaznubtlk66-23-4274Dfngbowpdpix (1 source)Mild aortic oelxvpxm75-83-4172Akpelww tract infections (1 source)Urinary tract infection, site not specified; Translations: [UTI SITE NOT SPECIFIED]Onset: 36-59-8591Gkzcizla Results Test NameValueInterpretationReference UszxlMgnfkepl80gy 51-07-508096Caxwot have her increase her Toprol to 50mg daily. Thank you![facility]36on 58-35-990097Rtyipik called to make you aware that her BP is running between 140-160 systolic. HR's around 70-80's. I did confirm that she's taking: Spironolactone 25mg daily Losartan 100mg daily Metoprolol succinate 25mg daily Would you like to make any adjustments? Please advise. Thanks.[facility] CenterALL BASIC METABOLIC PANELon 59-05-0570Xrytf gap [Moles/Vol]10.1 mmol/LNOMS HealthcareCalcium [Mass/Vol]9 mg/dL8.5 - 10.1 mg/dL NOMS HealthcareChloride [Moles/Vol]108 mmol/LHigh98 - 107 mmol/LNOMS Healthcare CO2 [Moles/Vol]27.1 mmol/L21.0 - 32.0 mmol/LNOMS HealthcareCreatinine [Mass/Vol] 1.24 mg/dLHigh0.55 - 1.02 mg/dLNOMS HealthcareGFR/1.73 sq M.predicted CKD-EPI (S/P/Bld) [Vol rate/Area]50Low>=60 mL/min/1.73m 2NOMS HealthcareGlucose [Mass/Vol]90 mg/dL74 - 106 mg/dLNOMS HealthcareInterpretation and review of laboratory resultsAbnormalNOMS HealthcarePotassium [Moles/Vol]4.2 mmol/L3.5 - 5.1 mmol/LNOMS HealthcareSodium [Moles/Vol]141 mmol/L136 - 145 mmol/LNOMS HealthcareTBH EGFR-NON AF YYBKOPDS91Brl>=60 mL/min/1.73m 2NOMS HealthcareUrea nitrogen [Mass/Vol]23 mg/dLHigh7.0 - 18.0 mg/dLNOMS HealthcareUrea nitrogen/Creatinine [Mass ratio]18.5 mg/mgNOMS HealthcareCLINISYNCNOMS HealthcareOffice Visiton [id number]-up [id number] Radha Barraza 1945 F Date Provider Department Center 12/03/2024 BENNY ARELLANO ALEX Sena Family History Problem Relation Age of Onset No Known Problems Mother No Known Problems Father Family Status - Relation Status Age at Mother Father Level of Service:09191 [place] OFFICE/OUTPATIENT ESTABLISHED MOD MDM 30 [facility]36on 89-26-634044VwsdqzzDEL [place] Did they also draw a [...] plan of care. Order sent to scheduling [facility] CenterTelephoneon [id number] Radha Barraza 1945 F Date Provider Department Center 11/29/2024 [id number] JEONG ALEX Sena Family History Problem Relation Age of Onset No Known Problems Mother No Known Problems Father Family Status - Relation Status Age at Mother Father DeceasedNoTrumbull Memorial HospitalALL PRO BNPon 11-23-2024 NT PRO B TYPE NATRIURETIC [id number] pg/mLNINF - 1800.0 pg/mLNOMS [facility] CLINISYNCNOMS Lmmbyxtuzv75do *Stop losartan/hydrochlorothiazide *Start losartan 100mg daily *Start spironolactone 25mg daily *Have lab work done around 11/22/24[facility] [id number]-up [id number] Radha Barraza 1945 F Date Provider Department Center 11/15/2024 RAMIRO WILSON ALEX Sena Family History Problem Relation Age of Onset No Known Problems Mother No Known Problems Father Family Status - Relation Status Age at Mother Father Level of Service:21435 [place] OFFICE/OUTPATIENT NEW MODERATE MDM 45 MINUTES Reason for Visit and Comments: New Patient [632] Heart Murmur [124][facility] CenterBasophils [#/volume] in Blood by Automated countOrdered By: Shahriar Warren on 62-52-7056Bqfdpqbrx (Bld) [#/Vol]0.0 10*3/uLNormal0.0-0.2FCleveland Clinic Akron GeneralComment on above:Result Comment: PERFORMED BY: [place] [address] PATHOLOGIST WATER ENGINEER SHERMAN AUGUSTIN M.D.Performed By: #### BILTD, CREAT, CBC, BUN #### [place] [address] USABasophils/100 leukocytes in Blood by Automated count Ordered By: Shahriar Warren on 75-49-8028Hpuicllgl/100 WBC (Bld)0.3 %Normal. [facility] HospitalComment on above:Performed By: #### BILTD, CREAT, CBC, BUN #### [place] [address] USABilirubin, Total and Directon 36-34-3515Madzcwpoq,Indirect 0.2 mg/dLNormalThe [facility] Physician GroupComment on above:Result Comment: PERFORMED BY: [place] [address] PATHOLOGIST WATER ENGINEER SHERMAN AUGUSTIN M.D.Performed By: #### BILTD, CREAT, CBC, BUN #### [place] [address] USABilirubin.indirect [Mass/Vol]0.10 mg/dLNormal0.03-0.18The [facility] System Physician GroupComment on above:Performed By: #### BILTD, CREAT, CBC, BUN #### [place] [address] USABilirubin, total and directon 28-01-7225Uvmluvfjj [Mass/Vol]0.3 mg/dL0.3 - 1.0 mg/dLNOMS HealthcareBilirubin.indirect [Mass/Vol] 0.1 mg/dL0.03 - 0.18 mg/dLNOMS HealthcareMagnesium [Mass/Vol]0.2 mg/dLNOMO HealthcareBilirubin.direct [Mass/volume] in Serum or PlasmaOrdered By: Shahriar Warren on 20-75-6382Gkjhqtgtx.direct [Mass/Vol]0.10 mg/dL0.03-0.18FCleveland Clinic Akron GeneralBilirubin.total [Mass/volume] in Serum or PlasmaOrdered By: Shahriar Warren on 28-62-1692Hxzowcwmg [Mass/Vol]0.3 mg/dLNormal0.3-1.0St. Vincent HospitalComment on above:Performed By: #### BILTD, CREAT, CBC, BUN #### [facility] [address] Auto Differential panel (Bld)on 41-57-0764Wpmoqxizq (Bld) [#/Vol]0 10*3/uL0.0 - 0.2 10*3/uLNOMO HealthcareBasophils/100 WBC Manual cnt (Syn fld)0.3 %.[facility] HealthcareEosinophils (Bld) [#/Vol]0.1 10*3/uL0.0 - 0.45 10*3/uLNOMS HealthcareEosinophils/100 WBC Manual cnt (Syn fld)1.3 %.[facility]' HospitalErythrocyte distribution width (RBC) [Ratio]13.5 %11.9 - 15.3 %[facility]' HospitalHematocrit (Bld) [Volume fraction]28.5 %Low34.0 - 46.4 %[facility]' HospitalHemoglobin (Bld) [Mass/Vol]9.6 g/dLLow11.8 - 15.4 g/dLHarry S. Truman Memorial [facility]' Hospital Interpretation and review of laboratory resultsAbnormalHarry S. [facility] Lymphocytes (Bld) [#/Vol]0.8 10*3/uLLow1.00 - 4.8 10*3/uLNOMO Healthcare Lymphocytes/100 WBC Manual cnt (Syn fld)9.4 %.[facility] HospitalH (RBC) [Entitic mass]31.8 pg24.7 - 34.3 pgEllett Memorial HospitalHC (RBC) [Mass/Vol]33.6 g/dL32.0 - 35.0 g/dLHarry S. Truman Memorial Veterans' HospitalMCV (RBC) [Entitic vol]94.6 fL80 - 100 fLMOUNTAIN POINT MEDICAL CENTER Healthcare Monocytes (Bld) [#/Vol]0.4 10*3/uL0.0 - 0.8 10*3/uLMOUNTAIN POINT MEDICAL CENTER Healthcare Monocytes+Macrophages/100 WBC Manual cnt (Syn fld)4.2 %.[facility] Neutrophils (Bld) [#/Vol]7.2 10*3/uL1.8 - 7.7 10*3/uLNOMO Healthcare Neutrophils/100 WBC Manual cnt (Syn fld)84.8 %.[facility] HealthcareNRBC0 /100{WBC}0 - 0.5 /100{WBC}NOM HealthcarePlatelet mean volume (Bld) [Entitic vol]8.8 fL6.3 - 10.7 fLMOUNTAIN POINT MEDICAL CENTER HealthcarePlatelets (Bld) [#/Vol]177 10*3/uL150 - 450 10*3/uLHarry S. Truman Memorial Veterans' HospitalRBC LM.HPF (Urine sed) [#/Area]3.01 10*6/uLLow3.60 - 5.00 10*6/uLNOMO HealthcareWBC (Bld) [#/Vol]8.5 10*3/uL3.8 - 11.6 10*3/uLNOMetropolitan Saint Louis Psychiatric CenterWBC LM.HPF (Urine sed) [#/Area]8.5 [CFU]/mL3.8 - 11.6 [CFU]/mLNOMS [facility] Community HospitalComplete Blood Count Auto Diffon 86-55-6767Phbf Corpuscular HGB Conc 33.6 g/qKQqzuop85.0-35.0[facility] Physician GroupComment on above:Performed By: #### BILTD, CREAT, CBC, BUN #### [facility] [address] [place] [id number] USANRBC%0.0 /100{WBC}Normal0-0.5[facility] Comment on above:Performed By: #### BILTD, CREAT, CBC, BUN #### [facility] [address] [place] [id number] USAWhite Blood Count8.5 [CFU]/mLNormal3.8-11.6The [facility] Physician GroupComment on above:Performed By: #### BILTD, CREAT, CBC, BUN #### [place] [address] USACreatinineon 11-60-0549Pzhcqejfox Clr Calc Nzgiwzux71.30 [facility] Physician [facility] Hospital At Stone CountyComment on above:Performed By: #### BILTD, CREAT, CBC, BUN #### [place] [address] USAGFR/1.73 sq M.predicted MDRD (S/P/Bld) [Vol rate/Area] 50.796 mL/min/{1.73_m2}NormalSarasota Memorial Hospital Physician GroupComment on above: Performed By: #### BILTD, CREAT, CBC, BUN #### [place] [address] USACreatinine [Mass/Vol]on 93-92-3653Ctvyegdahd (U) [Mass/Vol]1.1 mg/dL0.60 - 1.20 mg/dLNOMS HealthcareCREATININE CLR CALC PHARMACY 29.3NOMS HealthcareGFR/1.73 sq M.predicted MDRD (S/P/Bld) [Vol rate/Area]50.796 mL/min/{1.73_m2}NOMS HealthcareCreatinine [Mass/volume] in Serum or Plasma Ordered By: Shahriar Warren on 76-09-7816Evbfenfhss [Mass/Vol]1.10 mg/dLNormal 0.60-1.20St. Vincent HospitalComment on above:Performed By: #### BILTD, CREAT, CBC, BUN #### [place] [address] USAEosinophils [#/volume] in Blood by Automated countOrdered By: Shahriar Warren on 58-22-4979Yjmpcaunwbb (Bld) [#/Vol]0.1 10*3/uLNormal0.0-0.45 [facility] HospitalComment on above:Performed By: #### BILTD, CREAT, CBC, BUN #### [place] [address] USAEosinophils/100 leukocytes in Blood by Automated count Ordered By: Shahriar Warren on 00-40-3483Foayzwebcax/100 WBC (Bld)1.3 %Normal. St. Vincent HospitalComment on above:Performed By: #### BILTD, CREAT, CBC, BUN #### [facility] [address] [place] [address] USAErythrocyte distribution width [Ratio] by Automated count Ordered By: Shahriar Warren on 53-47-9480Fpwqndtmnci distribution width (RBC) [Ratio]13.5 %Sboulk17.9-15.3FCleveland Clinic Akron GeneralComment on above: Performed By: #### BILTD, CREAT, CBC, BUN #### [place] [address] USAErythrocytes [#/volume] in Blood by Automated countOrdered By: Shahriar Warren on 50-88-9222YLD (Bld) [#/Vol]3.01 10*6/uLLow3.60-5.00St. Vincent HospitalComment on above:Performed By: #### BILTD, CREAT, CBC, BUN #### [place] [address] USAHematocrit [Volume Fraction] of Blood by Automated count Ordered By: Shahriar Warren on 57-01-0834Cqjwghonhw (Bld) [Volume fraction]28.5 %Low 34.0-46.4FCleveland Clinic Akron GeneralComment on above:Performed By: #### BILTD, CREAT, CBC, BUN #### [place] [address] USAHemoglobin [Mass/volume] in BloodOrdered By: Shahriar Warren on 23-00-3608Irxmhkknmz (Bld) [Mass/Vol]9.6 g/dLLow11.8-15.4FCleveland Clinic Akron GeneralComment on above:Performed By: #### BILTD, CREAT, CBC, BUN #### [place] [address] USALeukocytes [#/volume] corrected for nucleated erythrocytes in Blood by Automated counOrdered By: Shahriar Warren on 00-44-3296IIA corrected for nucl RBC Auto (Bld) [#/Vol]8.5 10*3/uL3.8-11.6FCleveland Clinic Akron GeneralLeukocytes [#/volume] in Blood by Automated countOrdered By: Shahriar Warren on 16-58-9655DKJ (Bld) [#/Vol]8.5 10*3/uLNormal3.8-11.6FCleveland Clinic Akron GeneralComment on above:Performed By: #### BILTD, CREAT, CBC, BUN #### [facility] [address] [place] [address] USALymphocytes [#/volume] in Blood by Automated countOrdered By: Shahriar Warren on 38-13-6081Mqnacthwffs (Bld) [#/Vol]0.8 10*3/uLLow1.00-4.8 St[facility] Vincent HospitalComment on above:Performed By: #### BILTD, CREAT, CBC, BUN #### [facility] [address] [place] [id number] USALymphocytes/100 leukocytes in Blood by Automated count Ordered By: Shahriar Warren on 43-98-3188Xizcqgmwogx/100 WBC (Bld)9.4 %Normal. St. Vincent HospitalComment on above:Performed By: #### BILTD, CREAT, CBC, BUN #### [facility] [address] [place] [id number] [facility] [Entitic mass] by Automated countOrdered By: Shahriar Warren on 60-74-5320GOX (RBC) [Entitic mass]31.8 nsWglkbw19.7-34.3FCleveland Clinic Akron GeneralComment on above:Performed By: #### BILTD, CREAT, CBC, BUN #### [facility] [address] [id number] [facility]ANDHC Auto (RBC) [Mass/Vol]Ordered By: Shahriar Warren on 01-67-3342TYQK (RBC) [Mass/Vol]33.6 g/dL32.0-35.0St. Vincent HospitalMCV [Entitic volume] by Automated countOrdered By: Shahriar Warren on 91-21-2976YMA (RBC) [Entitic vol]94.6 eYVnqvxm33-485ZxmoxcinbSt. Vincent HospitalComment on above:Performed By: #### BILTD, CREAT, CBC, BUN #### [facility] [address] [place] [id number] USAMonocytes [#/volume] in Blood by Automated countOrdered By: Shahriar Warren on 05-86-8291Znfaaugcj (Bld) [#/Vol]0.4 10*3/uLNormal0.0-0.8 St[facility] Vincent HospitalComment on above:Performed By: #### BILTD, CREAT, CBC, BUN #### [facility] [address] [place] [id number] USAMonocytes/100 leukocytes in Blood by Automated count Ordered By: Shahriar Warren on 35-15-5013Rlqrmwvim/100 WBC (Bld)4.2 %Normal. St. Vincent HospitalComment on above:Performed By: #### BILTD, CREAT, CBC, BUN #### [facility] [address] [id number] USANeutrophils [#/volume] in Blood by Automated countOrdered By: Shahriar Warren on 27-02-2780Gbvikbxbwcd (Bld) [#/Vol]7.2 10*3/uLNormal1.8-7.7 St[facility] Vincent HospitalComment on above:Performed By: #### BILTD, CREAT, CBC, BUN #### [facility] [address] [place] [id number] USANeutrophils/100 leukocytes in Blood by Automated count Ordered By: Shahriar Warren on 02-96-7919Swjdljqbrdj/100 WBC (Bld)84.8 %Normal. St. Vincent HospitalComment on above:Performed By: #### BILTD, CREAT, CBC, BUN #### [facility] [address] [id number] USANo Panel Informationon 17-48-2938LIXO HealthcareNo Panel InformationOrdered By: Shahriar Warren on 08-06-0763Pfkneulho GFR (CKD-EPI)50.796 mL/MinSt. Vincent HospitalPharmacy Creatinine Clearance (Chem29.30 St. Vincent HospitalNucleated erythrocytes [Presence] in Blood by Automated countOrdered By: Shahriar Warren on 54-28-9107Xbxhqajwl RBC Auto Ql (Bld) 0.0 /100{WBC}0-0.5FCleveland Clinic Akron GeneralPlatelet mean volume [Entitic volume] in Blood by Automated countOrdered By: Shahriar Warren on 10-07-2024 Platelet mean volume (Bld) [Entitic vol]8.8 fLNormal6.3-10.7FCleveland Clinic Akron GeneralComment on above:Performed By: #### BILTD, CREAT, CBC, BUN #### [facility] [address] [place] [address] USAPlatelets [#/volume] in Blood by Automated countOrdered By: Shahriar Warren on 13-94-0425Pezpxpjzu (Bld) [#/Vol]177 10*3/gHWtfuxy658-555 St. Vincent HospitalComment on above:Performed By: #### BILTD, CREAT, CBC, BUN #### [facility] [address] [place] [address] USASerum or plasma non-glucuronidated bilirubin measurement (mass/volume)Ordered By: Shahriar Warren on 99-72-0529Vjlzyvanc.indirect [Mass/Vol] 0.2 mg/dLSt. Vincent HospitalUrea nitrogen [Mass/volume] in Serum or PlasmaOrdered By: Shahriar Warren on 33-94-8602Jala nitrogen [Mass/Vol]20 mg/dL Normal7-25St. Vincent HospitalComment on above:Performed By: #### BILTD, CREAT, CBC, BUN #### [facility] [address] [place] [id number] USAUrea nitrogen, body fluidon 05-32-9325Pjyq nitrogen [Mass/Vol]20 mg/dL7 - 25 mg/dLNOMetropolitan Saint Louis Psychiatric CenterAlanine aminotransferase [Enzymatic activity/volume] in Serum or PlasmaOrdered By: Kimberly Koehleromar on 18-30-3891XTV [Catalytic activity/Vol]119 U/LHigh7-52St. Vincent HospitalComment on above:Performed By: #### BILTD, LIPID, LIPASE, CBC, PT, CMP, DELMI #### [facility] [address] [place] [address] USAAlbumin [Mass/volume] in Serum or Plasma by Bromocresol green (BCG) dye binding methoOrdered By: Kimberly Koehleromar on 08-22-3772Jonzbat BCG dye [Mass/Vol]3.3 g/dLLow3.5-5.7FCleveland Clinic Akron GeneralAlkaline phosphatase [Enzymatic activity/volume] in Serum or PlasmaOrdered By: Obfrancisca Koehleromar on 68-02-6890YNP [Catalytic activity/Vol]93 U/WSdkxbf67-619CfcdzcaxhSt. Vincent HospitalComment on above:Performed By: #### BILTD, LIPID, LIPASE, CBC, PT, CMP, DELMI #### [facility] [address] [place] [address] USAAmylase [Enzymatic activity/volume] in Serum or Plasma Ordered By: Shahriar Warren on 95-93-2096Kqbggph [Catalytic activity/Vol]41 U/L Jtjqcy09-442VqtfocwrbSt. Vincent HospitalComment on above:Performed By: #### BILTD, LIPID, LIPASE, CBC, PT, CMP, DELMI #### [facility] [address] [place] [address] USAAspartate aminotransferase [Enzymatic activity/volume] in Serum or PlasmaOrdered By: Kimberly Koehleromar on 65-12-9716XMN [Catalytic activity/Vol]161 U/YFiuw29-79IknxmsyskSt. Vincent HospitalComment on above: Performed By: #### BILTD, LIPID, LIPASE, CBC, PT, CMP, DELMI #### [facility] [address] [place] [address] USABilirubin, Total and Directon 88-70-7996Sizedyuxj,Indirect 0.3 mg/dLNoFirstHealth Physician GroupComment on above:Performed By: #### BILTD, LIPID, LIPASE, CBC, PT, CMP, DELMI #### [facility] [address] [place] [address] USABilirubin.indirect [Mass/Vol]0.30 mg/dLHigh0.03-0.18The [facility] Physician GroupComment on above:Performed By: #### BILTD, LIPID, LIPASE, CBC, PT, CMP, DELMI #### [facility] [address] [place] [address] USACalcium [Mass/volume] in Serum or PlasmaOrdered By: Obaydah Daromar on 89-64-4297Brwfnsx [Mass/Vol]8.5 mg/dLLow8.6-10.3FCleveland Clinic Akron GeneralComment on above:Performed By: #### BILTD, LIPID, LIPASE, CBC, PT, CMP, DELMI #### [facility] [address] [place] [address] USACarbon dioxide, total [Moles/volume] in Serum or Plasma Ordered By: Obaydah Daromar on 44-59-8584XH5 [Moles/Vol]25.1 mmol/LNormal 21.0-31.0St. Vincent HospitalComment on above:Performed By: #### BILTD, LIPID, LIPASE, CBC, PT, CMP, DELMI #### [facility] [address] [place] [address] USAChloride [Moles/volume] in Serum or PlasmaOrdered By: Obaydah Daromar on 46-80-7536Wiijooeg [Moles/Vol]101 mmol/SUqcool67-973JowhrzwyeSt. Vincent HospitalComment on above:Performed By: #### BILTD, LIPID, LIPASE, CBC, PT, CMP, DELMI #### [facility] [address] [place] [address] USACholesterol [Mass/volume] in Serum or PlasmaOrdered By: Obaydah Daromar on 50-70-3290Rsxkkizsvke [Mass/Vol]145 mg/yCAdanxl448-646 St. Vincent HospitalComment on above:Chol less than 200 mg/dl low riskChol 201-239 mg/dl borderline riskChol 240 mg/dl and greater high riskResult Comment: Chol less than 200 mg/dl low risk Chol 201-239 mg/dl borderline risk Chol 240 mg/dl and greater high riskPerformed By: #### BILTD, LIPID, LIPASE, CBC, PT, CMP, DELMI #### [facility] [address] [place] [address] USAPerformed By: #### BILTD, CREAT, CBC, BUN #### [facility] [address] [place] [address] USACholesterol in HDL [Mass/volume] in Serum or PlasmaOrdered By: Obtonedarosalind Koehleromar on 85-32-8634Kgvfqgcpjbi in HDL [Mass/Vol]71 mg/dLNormal St. Vincent HospitalComment on above:HDL CHOL ATP-III CLASSIFICATION Cardiovascular RiskHDL > or equal to 60 mg/dL LOWHDL < 40 mg/dL HIGHResult Comment: HDL CHOL ATP-III CLASSIFICATION Cardiovascular Risk HDL > or equal to 60 mg/dL LOW HDL < 40 mg/dL HIGHPerformed By: #### BILTD, LIPID, LIPASE, CBC, PT, CMP, DELMI #### [facility] [address] [place] [address] USAPerformed By: #### BILTD, CREAT, CBC, BUN #### [facility] [address] [place] [address] USACholesterol in LDL Calc [Mass/Vol]Ordered By: Obtonedarosalind Koehleromar on 33-59-3894Tkpzdkxhfxg in LDL [Mass/Vol]59 mg/dL0-100St. Vincent HospitalComment on above:LDL ATP III CLASSIFICATIONLDL less than 100 mg/dL OptimalLDL 100-129 mg/dL Near or above aglpjjkTJC437-883 mg/dL Borderline highLDL 160-189 mg/dL HighLDL greater than 189 mg/dL Very high Cholesterol in VLDL Calc [Mass/Vol]Ordered By: Obtonedah Rodoomar on 10-06-2024 Cholesterol in VLDL [Mass/Vol]14 mg/dLSt. Vincent HospitalComplete Blood Count Auto Diffon 89-86-7900Kizguriaj (Bld) [#/Vol]0.0 10*3/uLNormal 0.0-0.2The [facility] Physician GroupComment on above:Result Comment: PERFORMED BY: [place] [address] PATHOLOGIST WATER ENGINEER SHERMAN AUGUSTIN M.D.Performed By: #### BILTD, LIPID, LIPASE, CBC, PT, CMP, DELMI #### [place] [address] USABasophils/100 WBC (Bld)0.2 %Normal.The [facility] Physician GroupComment on above:Performed By: #### BILTD, LIPID, LIPASE, CBC, PT, CMP, DELMI #### [place] [address] USAEosinophils (Bld) [#/Vol]0.0 10*3/uLNormal0.0-0.45The [facility] Physician GroupComment on above:Performed By: #### BILTD, LIPID, LIPASE, CBC, PT, CMP, DELMI #### [place] [address] USAEosinophils/100 WBC (Bld)0.2 %Normal.The [facility] Physician GroupComment on above:Performed By: #### BILTD, LIPID, LIPASE, CBC, PT, CMP, DELMI #### [place] [address] USAErythrocyte distribution width (RBC) [Ratio]13.4 %Normal 11.9-15.3The [facility] Physician GroupComment on above:Performed By: #### BILTD, LIPID, LIPASE, CBC, PT, CMP, DELMI #### [place] [address] USAHematocrit (Bld) [Volume fraction]34.3 %Qcshro48.0-46.4The [facility] Physician GroupComment on above:Performed By: #### BILTD, LIPID, LIPASE, CBC, PT, CMP, DELMI #### [place] [address] USAHemoglobin (Bld) [Mass/Vol]11.5 g/dLLow11.8-15.4The [facility] Physician GroupComment on above:Performed By: #### BILTD, LIPID, LIPASE, CBC, PT, CMP, DELMI #### [place] [address] USALymphocytes (Bld) [#/Vol]0.7 10*3/uLLow1.00-4.8The [facility] Physician GroupComment on above:Performed By: #### BILTD, LIPID, LIPASE, CBC, PT, CMP, DELMI #### [place] [address] USALymphocytes/100 WBC (Bld)6.6 %Normal.The [facility] Physician GroupComment on above:Performed By: #### BILTD, LIPID, LIPASE, CBC, PT, CMP, DELMI #### [address] (RBC) [Entitic mass]31.6 wpSpdwyt82.7-34.3The [facility] Physician GroupComment on above:Performed By: #### BILTD, LIPID, LIPASE, CBC, PT, CMP, DELMI #### [place] [address] USAMCV (RBC) [Entitic vol]94.8 xEOdweha73-877Mhi [facility] Physician GroupComment on above:Performed By: #### BILTD, LIPID, LIPASE, CBC, PT, CMP, DELMI #### [place] [address] USAMean Corpuscular HGB Conc33.4 g/mRQctfns01.0-35.0The [facility] Physician GroupComment on above:Performed By: #### BILTD, LIPID, LIPASE, CBC, PT, CMP, DELMI #### [place] [address] USAMonocytes (Bld) [#/Vol]0.4 10*3/uLNormal0.0-0.8The [facility] Physician GroupComment on above:Performed By: #### BILTD, LIPID, LIPASE, CBC, PT, CMP, DELMI #### [facility] [address] [place] [address] USAMonocytes/100 WBC (Bld)3.9 %Normal.The [facility] Physician GroupComment on above:Performed By: #### BILTD, LIPID, LIPASE, CBC, PT, CMP, DELMI #### [facility] [address] [place] [address] USANeutrophils (Bld) [#/Vol]9.9 10*3/uLHigh1.8-7.7The [facility] Physician GroupComment on above:Performed By: #### BILTD, LIPID, LIPASE, CBC, PT, CMP, DELMI #### [place] [address] USANeutrophils/100 WBC (Bld)89.1 %Normal.The [facility] Physician GroupComment on above:Performed By: #### BILTD, LIPID, LIPASE, CBC, PT, CMP, DELMI #### [place] [address] USANRBC%0.0 /100{WBC}Normal0-0.5The [facility] Comment on above:Performed By: #### BILTD, LIPID, LIPASE, CBC, PT, CMP, DELMI #### [place] [address] USAPlatelet mean volume (Bld) [Entitic vol]8.6 fLNormal 6.3-10.7The [facility] Physician GroupComment on above:Performed By: #### BILTD, LIPID, LIPASE, CBC, PT, CMP, DELMI #### [place] [address] USAPlatelets (Bld) [#/Vol]207 10*3/aVLgvvgw190-148Afv [facility] Physician GroupComment on above:Performed By: #### BILTD, LIPID, LIPASE, CBC, PT, CMP, DELMI #### [place] [address] USARBC (Bld) [#/Vol]3.62 10*6/uLNormal3.60-5.00The [facility] Physician GroupComment on above:Performed By: #### BILTD, LIPID, LIPASE, CBC, PT, CMP, DELMI #### [place] [address] USAWBC (Bld) [#/Vol]11.1 10*3/uLNormal3.8-11.6The [facility] Physician GroupComment on above:Performed By: #### BILTD, LIPID, LIPASE, CBC, PT, CMP, DELMI #### [place] [address] USAWhite Blood Count11.1 [CFU]/mLNormal3.8-11.6The [facility] Physician GroupComment on above:Performed By: #### BILTD, LIPID, LIPASE, CBC, PT, CMP, DELMI #### [place] [address] USAComprehensive Metabolic Panelon 79-60-9044Flwuobm [Mass/Vol]3.3 g/dLLow3.5-5.7The [facility] Physician GroupComment on above: Performed By: #### BILTD, LIPID, LIPASE, CBC, PT, CMP, DELMI #### [place] [address] USABilirubin [Mass/Vol]0.6 mg/dLNormal0.3-1.0The [facility] Physician GroupComment on above:Performed By: #### BILTD, LIPID, LIPASE, CBC, PT, CMP, DELMI #### [place] [address] USACreatinine [Mass/Vol]1.33 mg/dLHigh0.60-1.20The [facility] Physician GroupComment on above:Performed By: #### BILTD, LIPID, LIPASE, CBC, PT, CMP, DELMI #### [place] [address] USACreatinine Clr Calc Jufaxlte70.23NormalThe [facility] Physician GroupComment on above:Performed By: #### BILTD, LIPID, LIPASE, CBC, PT, CMP, DELMI #### [facility] [address] [id number] USAGFR/1.73 sq M.predicted MDRD (S/P/Bld) [Vol rate/Area] 40.447 mL/min/{1.73_m2}NormalThe [facility] System Physician GroupComment on above: Performed By: #### BILTD, LIPID, LIPASE, CBC, PT, CMP, DELMI #### [facility] [address] [place] [id number] USAUrea nitrogen [Mass/Vol]28 mg/dLHigh7-25The [facility] Physician GroupComment on above:Performed By: #### BILTD, LIPID, LIPASE, CBC, PT, CMP, DELMI #### [facility] [address] [place] [address] USAGlucose [Mass/volume] in Serum or PlasmaOrdered By: Kimberly Sanchez on 93-83-8127Aejesfi [Mass/Vol]99 mg/zUDdyaqr15-203AfdgexraoSt. Vincent HospitalComment on above:ADA recommended reference rangeRandom Glucose Reference Range is dependent on time and content of last meal. Glucose of more than 200 mg/dL in a nonstressed, ambulatory subject supports the diagnosisof Diabetes Mellitus.Result Comment: Random Glucose Reference Range is dependent on time and content of last meal. Glucose of more than 200 mg/dL in a nonstressed, ambulatory subject supports the diagnosis of Diabetes Mellitus. ADA recommended reference rangePerformed By: #### BILTD, LIPID, LIPASE, CBC, PT, CMP, DELMI #### [facility] [address] [place] [id number] USAINR in Platelet poor plasma by Coagulation assayOrdered By: Kimberly Sanchez on 19-19-8358QBS Coag (PPP) [Relative time]1.1 {INR}Normal St. Vincent HospitalComment on above:INR Therapeutic Range A) Pre- and Peroperative OAT started two weeks before surgery. NOT HIP SURGERY: 1.5 - 2.5 HIP SURGERY: 2 - 3B) Primary and secondary prevention of venous THROMBOSIS: 2 - 3C) Active venous thrombosis, pulmonary embolismand prevention of recurrent venous thrombosis: 2 - 3D) Prevention of arterial thromboembolismincluding patients with mechanical heart valves: 3 - 4.5Result Comment: INR Therapeutic Range A) Pre- and [...] heart valves: 3 - 4.5 PERFORMED BY: [facility] [address] [facility] [place] [address] PATHOLOGIST WATER ENGINEER SHERMAN AUGUSTIN M.D.Performed By: #### BILTD, LIPID, LIPASE, CBC, PT, CMP, DELMI #### [address] [address] Priya 10-06-2024 Specimen: [id number] Received: 10/08/24 Status: JEB Bess Num: [id number] Spec Type: Surgical Subm Dr: Shahriar Warren DO Tissues: A Gallbladder (GALLBLADDER) Procedures: Nino QUINTANA/Halima L3 Age/ Patient Sex Location Account Attending Physician Radha Barraza 79/F 4N [id number] Chema Gupta, DO SPEC NUM: [id number] RECD: 10/08/24 STATUS: JEB BESS NUM: [id number] TAMMY: 10/06/24-[address]: Shahriar Warren DO ENTERED: 10/08/[address]: SULY TYPE: Surgical DEPT: S ENTERED BY: [id number] RECV BY: [id number] ORDERED: HE, Gross/Micro L3 ORDERED: HE, Gross/Micro [...] are filtered and no calculi are identified. [place] sections are submitted in a single cassette. (1, , [id number] A) Microscopic Description Microscopic examination is performed Specimen: [id number] Received: 10/08/24 Status: KACEYAndres Bess Num: [id number] Spec Type: Surgical Subm Dr: Shahriar Warren DO Tissues: A Gallbladder (GALLBLADDER) Procedures: Nino QUINTANA/Halima L3 Patient: Radha Barraza [id number] (Continued) Specimen: [id number] Received: 10/08/24 (Continued) Signed (signature on file) Leon Kemp MD 10/09/24 1317 Specimen: [id number] Received: 10/08/24 Status: JEB Bess Num: [id number] Spec Type: Surgical Subm Dr: Shahriar Warren DO Tissues: A Gallbladder (GALLBLADDER) Procedures: Annabel QUINTANA Patient: Radha Barraza [id number] (Continued) Specimen: [id number] Received: 10/08/24 (Continued) CPT Codes 85768 Specimen: [id number] Received: 10/08/24 Status: JEB Bess Num: [id number] Spec Type: Surgical Subm Dr: Shahriar Warren DO Tissues: A Gallbladder (GALLBLADDER) Procedures: Annabel QUINTANA Patient: Radha Barraza [id number] (Continued) Signed (signature on file) Leon Kemp MD 10/09/24 1317Normal [facility] Physician GroupLipase [Enzymatic activity/volume] in Serum or PlasmaOrdered By: Shahriar Warren on 23-50-1350Ceeepi [Catalytic activity/Vol]13.0 U/BGfikym03.0-82.0St. Vincent HospitalComment on above:Performed By: #### BILTTeresa, CREAT, CBC, BUN #### [facility] [address] [place] [address] USALipid Panelon 02-03-1136KXP Cholesterol,Vpeeagpslr82 mg/dL Normal0-100[facility] Physician GroupComment on above:Result Comment: LDL ATP III CLASSIFICATION LDL less than 100 mg/dL Optimal LDL 100-129 mg/dL Near or above optimal LDL 130-159 mg/dL Borderline high LDL 160-189 mg/dL High LDL greater than 189 mg/dL Very highPerformed By: #### BILTD, LIPID, LIPASE, CBC, PT, CMP, DELMI #### [facility] [address] [place] [address] USAPerformed By: #### BILTD, CREAT, CBC, BUN #### [facility] [address] [place] [address] USATriglyceride w/Bjzsex72 mg/dLNormal0-149[facility] Physician GroupComment on above:Result Comment: TRIG ATP III CLASSIFICATION TRIG less than 150 mg/dL Normal TRIG 150-199 mg/dL Borderline high TRIG 200-500 mg/dL High TRIG greater than 500 mg/dL Very high Standard traceable to the Center for Disease Conrtrol and Prevention (CDC) test method.Performed By: #### BILTD, LIPID, LIPASE, CBC, PT, CMP, DELMI #### [facility] [address] [place] [address] USAPerformed By: #### BILTD, CREAT, CBC, BUN #### [place] [address] USAVLDL SLHRZWWEQOB53 mg/dLNormalThe [facility] Physician [facility] Stone CountyComment on above:Performed By: #### BILTD, LIPID, LIPASE, CBC, PT, CMP, DELMI #### [place] [address] USAPerformed By: #### BILTD, CREAT, CBC, BUN #### [place] [address] USAPotassium [Moles/volume] in Serum or PlasmaOrdered By: Obtonedah Rodoomar on 87-60-6180Tmhlaagxs [Moles/Vol]3.8 mmol/LNormal3.5-5.1 [facility] HospitalComment on above:Performed By: #### BILTD, LIPID, LIPASE, CBC, PT, CMP, DELMI #### [place] [address] USAProtein [Mass/volume] in Serum or PlasmaOrdered By: Obaydah Daromar on 42-26-6121Ipztxap [Mass/Vol]5.7 g/dLLow6.4-8.9St. Vincent HospitalComment on above:Performed By: #### BILTD, LIPID, LIPASE, CBC, PT, CMP, DELMI #### [place] [address] USAProthrombin time (PT)Ordered By: Obtonedah Daromar on 27-38-6742KG Coag (PPP) [Time]12.0 sNormal9.0-12.9St. Vincent HospitalComment on above:A hematocrit value greater than 55% may lead to inaccurate results in coagulation testing. Patientshaving hematocrit values >55% require a special collection tube for coagulation studies. Please contact the laboratory at [phone] for redraw instructions.Result Comment: A hematocrit value greater than 55% may lead to inaccurate results in coagulation testing. Patients having hematocrit values >55% require a special collection tube for coagulation studies. Please contact the laboratory at [phone] for redraw instructions.Performed By: #### BILTD, LIPID, LIPASE, CBC, PT, CMP, DELMI #### [facility] [address] [place] [address] USASerum globulin measurement by calculation (mass/volume) Ordered By: Kimberly Sanchez on 02-04-1983Ahwoagym (S) [Mass/Vol]2.4 g/dLNormal St. Vincent HospitalComment on above:Performed By: #### BILTD, LIPID, LIPASE, CBC, PT, CMP, DELMI #### [facility] [address] [place] [address] USASerum or plasma albumin/globulin mass ratioOrdered By: Kimberly Sanchez on 65-14-8718Eumupwj/Globulin [Mass ratio]1.4 {ratio}Normal St. Vincent HospitalComment on above:Performed By: #### BILTD, LIPID, LIPASE, CBC, PT, CMP, DELMI #### [facility] [address] [place] [address] USASerum or plasma anion gap determinationOrdered By: Kimberly Sanchez on 22-89-9293Ntsub gap [Moles/Vol]10.7 mmol/LNormal6.0-15.0St. [facility] HospitalComment on above:Performed By: #### BILTD, LIPID, LIPASE, CBC, PT, CMP, DELMI #### [facility] [address] [place], [place] [address] USASerum or plasma total cholesterol/high density lipoprotein (HDL) cholesterol mass ratOrdered By: Kimberly Hindsr on 10-06-2024 Cholesterol.total/Cholesterol in HDL [Mass ratio]2.0 {ratio}Normal<5.0St. Vincent HospitalComment on above:Result Comment: PERFORMED BY: [place] [address] PATHOLOGIST WATER ENGINEER SHERMAN AUGUSTIN M.D.Performed By: #### BILTD, LIPID, LIPASE, CBC, PT, CMP, DELMI #### [facility] [address] [place] [address] USAPerformed By: #### BILTD, CREAT, CBC, BUN #### [facility] [address] [place] [address] USASodium [Moles/volume] in Serum or PlasmaOrdered By: Obaydarosalind Daromar on 78-03-2418Vlnncy [Moles/Vol]133 mmol/LAgr273-429HzhcgrasjSt. Vincent HospitalComment on above:Performed By: #### BILTD, LIPID, LIPASE, CBC, PT, CMP, DELMI #### [facility] [address] [place] [address] USATriglyceride [Mass/volume] in Serum or PlasmaOrdered By: Obaydah Daromar on 54-42-2115Deywusfoewan [Mass/Vol]74 mg/dL0-149St. Vincent HospitalComment on above:TRIG ATP III CLASSIFICATIONTRIG less than 150 mg/dL NormalTRIG 150-199 mg/dL Borderline highTRIG 200-500 mg/dL High TRIG greater than 500 mg/dL Very highStandard traceable to the Center for Disease Conrtrol and Prevention (CDC) test method.MR Thoracic spine WO contrast on 47-94[place] [address] Magnetic Resonance Report Signed Patient: RADHA BARRAZA MR#: [id number] : 1945 Acct:[id number] Age/Sex: 79 / F ADM Date: 06/06/24 Loc: MRI Attending Dr: Rinku Lopez NP Ordering Physician: Rinku Lopez NP Date of Service: 06/06/24 Procedure(s): MR thoracic spine wo con Accession Number(s): [id number] cc: Rinku Lopez NP; SHARI MCKEON [place] [id number] Patient Name: RADHA BARRAZA MRN: [facility]:[id number] date: 1945 Sex: F Assigned Patient Location: MRI Current Patient Location: MRI Accession/Order Number: [id number] Exam Date: 06/06/2024 14:56 Report Date: 06/06/2024 [...] Gomez Jr., D.O.06/06/2024 2:58 PM Dictation Location: [place] [address] Electronically authenticated by: [id number] Y Date: 06/06/2024 14:58 Dictated By: Alejandro Gomez M.D. Signed By: 06/06/24 1501 DD/ 1458 TD/TT: Cdl A Driver:TBHRadiology, Radiologist, - 06/06/[address] [address] Magnetic Resonance Report Signed Patient: RADHA BARRAZA MR#: [id number] : 1945 Acct:[id number] Age/Sex: 79 / F ADM Date: 06/06/24 Loc: MRI Attending Dr: Rinku Lopez NP Ordering Physician: Rinku Lopez NP Date of Service: 06/06/24 Procedure(s): MR thoracic spine wo con Accession Number(s): [id number] cc: Rinku Lopez NP; SHARI MCKEON [place] [id number] Patient Name: RADHA BARRAZA MRN: [facility]:[id number] date: 1945 Sex: F Assigned Patient Location: MRI Current Patient Location: MRI Accession/Order Number: [id number] Exam Date: 06/06/2024 14:56 Report Date: 06/06/2024 [...] Gomez Jr., D.O.06/06/2024 2:58 PM Dictation Location: [place] [address] Electronically authenticated by: [id number] Y Date: 06/06/2024 14:58 Dictated By: Alejandro Gomez M.D. Signed By: 06/06/24 1501 DD/ 1458 TD/TT: Cdl A Driver: [facility] CENTERWicho [facility] HospitalRadiology Study observation (narrative)[facility] Thoracic spine WO contrastOrdered By: Radiologist Radiology on 36-79-6391JFZR [employer] Work Phone: bi MAMMOGRAM SCREENING TOMOSYNTHESIS BILATERALon 57-28-0180HO MAMMOGRAM SCREENING TOMOSYNTHESIS BILATERALThis is a summary report. The complete report [...] Screening Mamm ELECTRONICALLY SIGNED BY: Jayant Peters M.D.NormalNot AvailableConsent Formson 01-40-7989Agyzvkl [id number]#1.00OTGTIFF [facility]huja Medical CenterDischarge Instructionson 81-72-4548Nzjxcyhjz Instructions [id number]#1.00OTPremier Health Miami Valley Hospital SouthGR Intraoperative Recordon 31-94-0783VYLW Intraoperative RecordMAGR Intra-Op Record Summary Primary Physician: Ede Ramos DO Finalized Date/Time: 07/27/22 09:45:04 Pt. Name: CHRISTIRADHA/Sex: 1945 FEMALE Med Rec #: [id number] Physician: Ede Ramos DO Financial #: [id number] Pt. Type: D Room/Bed: / Admit/Disch: 07/26/22 [...] Role Performed Surgeon - Primary Anesthesiologist of Metal Milling Machine Operator Record Time In 07/26/22 07:39:00 07/26/22 07:39:00 07/26/22 07:39:00 Time Out 07/26/22 09:49:00 07/26/22 09:49:00 07/26/22 09:49:00 Procedure Arthroplasty Shoulder Arthroplasty Shoulder Arthroplasty Shoulder Total Reverse(Left) Total Reverse(Left) Total Reverse(Left) Last Modified By: Mode RN, Jania Coello RN, Jania Coello RN, Jania Plascencia 07/26/22 09:49:54 07/26/22 09:49:54 07/26/22 09:49:54 Entry 4 Entry 5 Entry 6 Case Attendee Fahad RIGGER APPRENTICE, Paulina RIGGER APPRENTICE Arpan, Lisa Portillo RIGGER APPRENTICE/CSFA, ZOE Worthy RIGGER APPRENTICE Role Performed Scrub Personnel Scrub Personnel Regional Dedicated Truck Driver Time In 07/26/22 07:39:00 07/26/22 07:39:00 07/26/22 [...] Performs skin preparation Im.270.1 Implements protective measures toprevent skin and tissue injury due to chemical sources (more content not included)...NormalMagruder HospitalOutside Recordson 52-11-8212Vkiupzm [id number]#1.00OTGTIFF [facility]ja Medical CenterProvider Orderson 62-66-2835Fztlyyoc Orders [id number]#1.00[facility] Telemetry Stripson 42-61-2946Jxshvtumc Strips [id number]#1.00[facility] Anesthesia Noteon 56-97-2496Xwkublmnoe NotePatient: RADHA BARRAZA MRN: [id number] Age: 77 years Sex: FEMALE : 1945 [...] on: 07/26/2022 11:51 EDT] Remy Da Silva MDUniversity Hospitals Ahuja Medical CenterAnesthesia NotePatient: RADHA BARRAZA Age: 77 years Sex: FEMALE [...] obstructive pulmonary disease (COPD) / SNOMED CT 28456304 / Confirmed Heart murmur / SNOMED CT 651562545 / Confirmed Hyperlipidemia / SNOMED CT 60626137 / Confirmed HTN (hypertension) / SNOMED CT 9562598979 / Confirmed Histories Family History: COPD Mother Father Procedure history: Arthroplasty of left knee (8220172129). Arthroplasty of right knee (1411525347). Carpal tunnel release (589945342). Comments: 06/29/2022 13:15 Dorota De Leon RN bilat Colonoscopy (541044094). EGD - Esophagogastroduodenoscopy (4707712437). Disorder of rotator cuff (2925007247). Comments: 06/29/2022 13:14 Dorota De Leon RN [...] Oriented. Review / Management Laboratory Results Plan [employer] Anesthesiologists#(ASA) physical status classification: Class [...] on: 07/26/2022 08:23 EDT] Remy Da Silva MDUniversity Hospitals Ahuja Medical CenterInpatient Patient Summaryon 07-26-2022 [place] [address] Patient Discharge Instructions Name: RADHA BARRAZA : 1945 Patient Address: [address] [place] [address] [place] [address] Primary Care Provider: Name: SHARI MCKEON After you are discharged if you find you have any questions, please, call [phone] ext [phone] to speak to a nurse. Discharge Diagnosis: Arthritis of left glenohumeral joint; Other specific arthropathies, not elsewhere classified, left shoulder; Rotator cuff tear arthropathy of left shoulder Prescription Information: If you have been given a prescription for narcotics, seek immediate medical attention if you have any difficulty breathing or any sudden status changes such as confusion andsleepiness. If you or anyone you know is experiencing suicidal thoughts, mental health, alcohol and/or drug addiction problems; contact the [facility] 04/10 Crisis Hotline -Text 4HOCL to 475129. If you received any narcotics, sedation, or [...] business decisions or sign any legal documents [facility] would like to thank you for allowing us to assist you with your healthcare needs.The following includes patient education materials and information regarding your injury/illness. RADHA BARRAZA has been given the following list of follow-up instructions, prescriptions, and patient education materials: Follow-up Instructions With: Address: When: Ede Ramos [address] [place] [address], [address] [place] [address] Business (1) 08/03/2022 11:00 AM Medications During [...] wiggle your fingers frequently (more content not included)...[facility] Intraoperative Record on 15-40-7147IBZE Intraoperative RecordMAGR Intra-Op Record Summary Primary Physician: Finalized Date/Time: 07/26/22 07:42:32 Pt. Name: LIV BARRAZAJANELLE Dangelo/Sex: 1945 FEMALE Med Rec #: [id number] Physician: Ede Ramos DO Financial #: [id number] Pt. Type: D Room/Bed: / Admit/Disch: 07/26/22 [...] Warga, Laura RN Role Performed Anesthesiologist of Metal Milling Machine Operator Metal Milling Machine Operator Record Time In 07/26/22 07:13:00 07/26/22 07:13:00 07/26/22 07:13:00 Time Out 07/26/22 07:38:00 07/26/22 07:38:00 07/26/22 07:38:00 Procedure Interscalene Block(Left) Interscalene Block(Left) Interscalene Block(Left) Last Modified By: Kimberley Le RN, Margaret RN Klaehn, Margaret RN 07/26/22 07:39:31 07/26/22 07:39:31 07/26/22 07:39:31 Entry 4 Case Attendee Amy Bates RN Role Performed Metal Milling Machine Operator Time In 07/26/22 07:13:00 Time Out [...] Performs skin preparation Im.270.1 Implements protective measures toprevent skin and tissue injury due to chemical [...] Via Stretcher Post-op Destinat (more content not included)...[facility] PACU Recordon 75-99-0187RGCX PACU RecordCARONDELET ST[facility] Record Summary Primary Physician: Ede Ramos DO Finalized Date/Time: 07/26/22 10:38:28 Pt. Name: CLAUDIAERICKRADHA/Sex: 1945 FEMALE Med Rec #: [id number] Physician: Ede Ramos DO Financial #: [id number] Pt. Type: D Room/Bed: / Admit/Disch: 07/26/22 05:52:10 - Institution: PACU Case Times MAGR Entry 1 In PACU I 07/26/22 09:51:00 Discharge from PACU 07/26/22 10:35:00 I Last Modified By: Warner Bolton RN 07/26/22 10:38:23 Finalized By: Warner Bolton RN Document Signatures Signed By: Warner Bolton RN 07/26/22 10:38[facility] Postoperative Recordon 03-94-6827DRXQ Postoperative RecordMAGR Phase II Record Summary Primary Physician: Ede Ramos DO Finalized Date/Time: 07/26/22 12:01:17 Pt. Name: RADHA BARRAZA/Sex: 1945 FEMALE Med Rec #: [id number] Physician: Ede Ramos DO Financial #: [id number] Pt. Type: D Room/Bed: / Admit/Disch: 07/26/22 05:52:10 - Institution: Phase II Case Times MAGR Pre-Care Text: Patient is free from s/s of injury. Patient remains free from compromised physical state related tosurgery or anesthesia. Patient comfort maintained. Patient/family verbalize [...] Signatures Signed By: Annamarie Samuels RN 07/26/22 12:01NoK[facility] Preoperative Recordon 93-26-8271FWWG Preoperative RecordMAGR Pre-Op Record Summary Primary Physician: Ede Ramos DO Finalized Date/Time: 07/26/22 07:44:03 Pt. Name: RADHA BARRAZA/Sex: 1945 FEMALE Med Rec #: [id number] Physician: Ede Ramos DO Financial #: [id number] Pt. Type: D Room/Bed: / Admit/Disch: 07/26/22 [...] ready for surgery. The patient remains free froms/s of injury. Patient/family express understanding of plan of care and participate in decisions affectinghis or her perioperrative plan of care. Allergies documented appropriately. Patient identifiers and consent correct. General Comments: Pt arrives to psw ambulatory. Pt denies cp, sob, cough or flu like symptoms. She also pacemaker/defibillator or sleep apnea. 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 Anesthesia: General with a preoperative interscalene block Indications for surgery: Ongoing pain with findings of arthritis of the glenohumeral joint and a previous rotator cuff repair Estimated blood loss: 50 Complications: None Findings: Qwec-mi-lffp in the glenohumeral joint Procedure summary: Patient [...] a deltopectoral approach. The cephalic vein was mobilizedlaterally with the deltoid. The conjoined tendon was [...] relatively small glenoid with slight anterior overhang. Thecentral pin was inserted and reaming was performed. I reamed to accommodate a 33 mm glenosphere. I reamed to 25 for central post. A 24+2 mm baseplate with a A 40 mm nonlocking screws was used superiorly and then a 28 mm nonlocking screw was used inferiorlyand a 28 mm locking screw posteriorly. A 33+4 mm glenosphere was impacted into place and then secured with a central locking screw and checked for integrity. It was torqued between 4 and 5. My attention was turned back to the humerus the canal was opened with a hand- held reamer and then broaching sequentially to 6 [...] [Verified on: 07/26/2022 09:35 EDT] Ede Ramos [facility] SystemPatient Handouton 07-26-2022 Patient HandoutDRRicardo MESSINA POST OPERATIVE SHOULDER INSTRUCTIONS SURGEONS WRITTEN [...] or concerns, please call the office at [phone] 7. Follow up as scheduledUniversity Hospitals Ahuja Medical CenterXR Shoulder 1 View Lefton 89-85-6929ER Shoulder 1 View LeftEXAM: XR Shoulder 1 View Left HISTORY: Status [...] Peters MD 07/27/22 4:01 pm Technologist: JORDON RUVALCABAUniversity Hospitals Ahuja Medical CenterComment on above:Order Comment: default status post shoulder replacementProgress Note - Nurseon 07-23-2022 Progress Note - NursePre-op call made to pt. Pt states understanding of arrival time of 0600 on 07/26/22 and NPO after MN. [Electronically Signed on: 07/23/2022 09:27 EDT] Shantel Gonsalez RN L [Verified on: 07/23/2022 09:27 EDT] Shantel Gonsalez RN LNFostoria City Hospital HospitalCoding Summaryon 07-90-1638Bmtbbk SummaryHTMLBase 64 BmknkinzYCs1lMo+PGhlYWQ+TZ7UEMKvB03aqOLoaH1EU4gIZZ2VUREGTLONEL2BXE1ekVP4TKivJ5Ya biAv [file] bGx (more content not included)...[facility] MRSA Screenon 06-30-2022 MRSA ScreenNegativeUniversity Hospitals Ahuja Medical CenterComment on above:Performed By: #### [id number] ####[facility] (DEFAULT)[address] [place] [address]Atdytcdr Note - Nurseon 03-52-9367Qetqacff Note - NurseDr. Castro reviewed PAT notes for upcoming surgery 07/26/2022. No new orders at this time [Electronically Signed on: 06/30/2022 11:45 EDT] Annamarie Samuels RN [Verified on: 06/30/2022 11:45 EDT] Nick Samuels RNMartins Ferry HospitalProvider Orderson 70-17-4823Juzyzwcc Orders [id number]#1.00OTGTIFFNoKindred Healthcare.Auto Diff 1on 90-21-8598Vjrt [place] %10 %Normal1-12[facility] HospitalComment on above: Performed By: #### [id number], [id number], [id number] ####[facility] (DEFAULT)[address] [place] [address] 78924Gzsm Abs#0.0 v72Xrrdwr2.0-0.2 [facility] HospitalComment on above:Performed By: #### [id number], 40460121, [id number] ####[facility] (DEFAULT)[address] [place] [address] 34404Gdcujyaij/100 WBC (Bld)0.7 %Normal0.2-2.0[facility] HospitalComment on above: Performed By: #### 8403515, 38547611, [id number] ####[facility] (DEFAULT)[address] [place] [address] 90842Oup Abs#0.6 i36Lkld3.0-0.4 [facility] HospitalComment on above:Performed By: #### 1654756, 76936735, [id number] ####[facility] (DEFAULT)[address] [place] [address] 42026Okzfisklkvx/100 WBC (Bld)8.5 %High0.9-4.0[facility] HospitalComment on above: Performed By: #### 7549910, 14015816, [id number] ####[facility] (DEFAULT)[address] [place] [address] 19655Ikdec Abs#1.6 c86Kdwhrf7.3-2.9 [facility] HospitalComment on above:Performed By: #### 0474675, 77751308, [id number] ####[facility] (DEFAULT)[address] [place] [address] 66192Aipzyzxmffy/100 WBC (Bld)24 %Ounuil66-46Uehynnit HospitalComment on above: Performed By: #### 8963206, 38027996, [id number] ####[facility] (DEFAULT)[address] [place] [address] 37634Aiax Abs#0.7 y85Sneikc3.0-0.8 [facility] HospitalComment on above:Performed By: #### 4568354, [id number], [id number] ####[facility] (DEFAULT)[address] [place] [address] 74024Uqov Abs#3.8 b92Hxsvqu1.5-9.2Mkn[facility] hospital HospitalComment on above:Performed By: #### 2273547, 05973572, [id number] ####[facility] (DEFAULT)[address] [place] [address] 82075Uwdpnonmegl/100 WBC (Bld)57 %Hmssys24-82Gbkviwtx HospitalComment on above:Performed By: #### 9159009, 16245176, [id number] ####[facility] (DEFAULT)[address] [place] [address] 64102LXM Standardon 80-05-9346kPCI Non AA33 mL/min/1.59b6Efkyupy Interpretation Code [facility] OhioComment on above:Performed By: #### [id number], 10638560, [id number] ####[facility] (DEFAULT)[address] [place] [address] 85793eEJT AA40 mL/min/1.15g0Rsjdeyq Interpretation CodeGlenbeigh Hospital HospitalComment on above:Performed By: #### 9908490, 43405069, [id number] ####[facility] (DEFAULT)[address] [place] [address] 45776Scwke gap [Moles/Vol]8.9 mmol/L Normal5.0-19.0[facility] HospitalComment on above:Performed By: #### 1977549, 81672752, [id number] ####[facility] (DEFAULT)[address] [place] [address] 92388Oavgmgh [Mass/Vol]9.3 mg/dLNormal8.9-10.3[facility] Comment on above:Performed By: #### 2671392, 99674288, [id number] ####[facility] (DEFAULT)[address] [place] [address] 75784Pogbvjts [Moles/Vol]102 mmol/ILvcmzo147-734Sjvyeeqm HospitalComment on above:Performed By: #### 3312826, 51293425, [id number] ####[facility] (DEFAULT)[address] [place] [address] 05484EU4 [Moles/Vol]28 mmol/EXcxysa51-69Hijawgfj Hospital Comment on above:Performed By: #### 9160589, 86868278, [id number] ####[facility] (DEFAULT)[address] [place] [address] 85131Jplnizmlxq [Mass/Vol] 1.53 mg/dLHigh0.60-1.30[facility] OhioComment on above:Performed By: #### 9696452, 20255111, [id number] ####[facility] (DEFAULT)[address] [place] [address] 66426Jelaede [Mass/Vol]107.0 mg/wCTdqevj90.0-118.0 [facility] OhioComment on above:Performed By: #### 3185884, 62119694, [id number] ####[facility] (DEFAULT)[address] [place] [address] 28831Ansvkbbquj223 mOsm/LInvalid Interpretation CodeSelect Medical Specialty Hospital - Southeast OhioComment on above:Performed By: #### 6019044, 72483149, [id number] ####[facility] (DEFAULT)[address] [place] [address] 37610Jtodyvvuw [Moles/Vol]3.9 mmol/L Normal3.6-5.1MGalion Community HospitalComment on above:Performed By: #### 5521550, 89331500, [id number] ####[facility] (DEFAULT)[address] [place] [address] 14109Hrokqf [Moles/Vol]135.0 mmol/RUjo018.0-144.0[facility] Comment on above:Performed By: #### 4846864, 61809807, [id number] ####[facility] (DEFAULT)[address] [place] [address] 95330Bzgc nitrogen [Mass/Vol]36 mg/dLHigh8-26[facility] HospitalComment on above:Performed By: #### 1694566, 89722913, [id number] ####[facility] (DEFAULT)[address] [place] [address] 52881Tyej nitrogen/Creatinine [Mass ratio]23.5 mg/mgHigh 4.6-16.2Mkn[facility] hospital HospitalComment on above:Performed By: #### [id number], [id number], [id number] ####[facility] (DEFAULT)[address] [place] [address] 12411WNJ w/ Auto Diffon 11-74-8111Ipyubmhkulh distribution width (RBC) [Ratio] 12.8 %Qftozs34.5-15.0[facility] HospitalComment on above:Performed By: #### [id number], [id number], [id number] ####[facility] (DEFAULT)[address] [place] [address] 08979Qooojhfejg (Bld) [Volume fraction]36.4 %Normal 33.7-40.4[facility] HospitalComment on above:Performed By: #### [id number], [id number], [id number] ####[facility] (DEFAULT)[address] [place] [address] 93760Sshvmqvyqc (Bld) [Mass/Vol]12.2 g/vMWhhzex39.3-15.9[facility] HospitalComment on above:Performed By: #### [id number], [id number], [id number] ####[facility] (DEFAULT)[address] [place] [address] 45138Esm Diff?AutoInvalid Interpretation CodeGlenbeigh Hospital HospitalComment on above:Performed By: #### [id number], [id number], [id number] ####[facility] (DEFAULT)[address] [place] [address] 86525BDA (RBC) [Entitic mass]32 wnWheaor99-50Iwzjzskm Hospital Comment on above:Performed By: #### [id number], [id number], [id number] ####[facility] (DEFAULT)[address] [place] [address] 21932USTT (RBC) [Mass/Vol]33 g/uUUndvas89-87Cuzsepbm HospitalComment on above:Performed By: #### [id number], [id number], [id number] ####[facility] (DEFAULT)[address] [place] [address] 05250ZUY (RBC) [Entitic vol]97 oEKfumqv29-228Bcrvwcqb Hospital Comment on above:Performed By: #### [id number], [id number], [id number] ####[facility] (DEFAULT)[address] [place] [address] 37675Chxqvrlt712 g79Qmdpyd 138-427[facility] HospitalComment on above:Performed By: #### [id number], [id number], [id number] ####[facility] (DEFAULT)[address] [place] [address] 75876Gbtjhixb mean volume (Bld) [Entitic vol]7.2 fLNormal6.3-10.2Magrwilson health HospitalComment on above:Performed By: #### [id number], [id number], [id number] ####[facility] (DEFAULT)[address] [place] [address] 20900NVV4.77 u80Sxosoc0.70-5.30[facility] HospitalComment on above:Performed By: #### [id number], [id number], [id number] ####[facility] (DEFAULT)[address] [place] [address] 65876DYR6.7 g55Khvzyn8.5-10.5[facility] HospitalComment on above: Performed By: #### [id number], [id number], [id number] ####[facility] (DEFAULT)[address] [place] [address] 23695SR w Culture if Ind Standardon 15-46-6322Jdbbzuenhw UANormalMagruder HospitalComment on above:Performed By: #### [id number] #### [facility] (DEFAULT) [address] [place] [address] 17664Mtqiv (U)YellowNormalMagruder HospitalComment on above: Performed By: #### [id number] #### [facility] (DEFAULT) [address] [place] [address] 87194Bumjvsb?Not IndicatedInvalid Interpretation CodeMagruder HospitalComment on above:Result Comment: Result created by rule GL_MAGR_ADD_UA_CULT1Performed By: #### [id number] #### [facility] (DEFAULT) [address] [place] [address] 57457Sgntptc (U) [Mass/Vol]NegativeNormalNjgrwilson health Hospital Comment on above:Performed By: #### [id number] #### [facility] (DEFAULT) [address] [place] [address] 90898Sthijlb Ql (U)NegativeNormalNjgrwilson health HospitalComment on above:Performed By: #### [id number] #### [facility] (DEFAULT) [address] [place] [address] 88472Tcxhg?Not IndicatedInvalid Interpretation CodeMagrwilson health HospitalComment on above:Result Comment: Result created by rule GL_MAGR_ADD_UA_MICROPerformed By: #### [id number] #### [facility] (DEFAULT) [address] [place] [address] 05766DT BilirubinNegativeNormalMagrwilson health HospitalComment on above:Performed By: #### [id number] #### [facility] (DEFAULT) [address] [place] [address] 66120OQ BloodNegativeNormalNEGATIVEMagruder HospitalComment on above:Performed By: #### [id number] #### [facility] (DEFAULT) [address] [place] [address] 52933ST ClarityCLEARNormalCLEARMagruder HospitalComment on above:Performed By: #### [id number] #### [facility] (DEFAULT) [address] [place] [address] 18562DT Leuk EstNegativeNormalNEGATIVEGlenbeigh Hospital HospitalComment on above:Performed By: #### [id number] #### [facility] (DEFAULT) [address] [place] [address] 86016BM NitriteNegativeNormalNEGATIVEGlenbeigh Hospital HospitalComment on above:Performed By: #### [id number] #### [facility] (DEFAULT) [address] [place] [address] 94089JO pH6.1Xtlifn7-9Fyzghgdv HospitalComment on above: Performed By: #### [id number] #### [facility] (DEFAULT) [address] [place] [address] 55344SB ProteinNegativeNormalNEGATIVEGlenbeigh Hospital HospitalComment on above:Performed By: #### [id number] #### [facility] (DEFAULT) [address] [place] [address] 40012KC Spec Grav1.422Bdlblc0.001-1.035[facility] HospitalComment on above:Performed By: #### [id number] #### [facility] (DEFAULT) [address] [place] [address] 81007LM Urobilinogen0.2 mg/dLNormal0.2-1.0[facility] Hospital Comment on above:Performed By: #### [id number] #### [facility] (DEFAULT) [address] [place] [address] 14627Onxpg SourceClean CatchNormalGlenbeigh Hospital HospitalComment on above:Performed By: #### [id number] #### [facility] (DEFAULT) [address] [place] [address] 91914QLY Shoulder w/o Lefton 38-90-9632DLH Shoulder w/o Left HISTORY: Left shoulder pain. [...] and signed by Adarsh Adams on 05/11/[address] Anne HospitalCREENING MAMMOGRAM W/ARABELLA, BILATERAL*on 11-20-2021 SCREENING MAMMOGRAM W/ARABELLA, BILATERAL*COMPARISON: October 13, 2020, October 10, 2019, September [...] VERY IMPORTANT TO YOUR HEALTH. THE CURRENT [employer] GUIDELINES RECOMMENDS ANNUAL MAMMOGRAPHY BEGINNING AT AGE 39 THIS FACILITY USES A REMINDER SYSTEM TO ENSURE ALL PATIENTS RECEIVE REMINDER NOTIFICATIONS AT THE APPROPRIATE TIME BASED ON THE RECOMMENDATIONS OF THIS EXAM. Report reported and signed by Alejandro Forte on 11/20/2021 0949NoGrant HospitalComprehensive Metabolic Panelon 53-09-7396Hegquvz [Mass/Vol]4.2 g/dLNormal3.6-5.1[facility] For [facility] CareComment on above: Performed By: #### CMP, LIPD #### [facility] [address], [place] [id number]/Globulin [Mass ratio]1.7 {ratio}Normal1.0-2.5NortParkview Health Montpelier HospitalComment on above:Performed By: #### CMP, LIPD #### [facility] [address], [place] [id number] [Catalytic activity/Vol]82 U/WLcjcjn90-295Vjvoccmd [place] [facility] SpecialistComment on above:Performed By: #### CMP, LIPD #### [facility] [address], [place] [id number] [Catalytic activity/Vol]15 U/LNormal6-33[facility] [place] [facility] SpecialistComment on above:Result Comment: 02/11/2021 Female reference range changed.Performed By: #### CMP, LIPD #### [facility] [address], [place] [id number] gap [Moles/Vol]15 mmol/ZAedtsd13-53Tkeddpmq [place] [facility] SpecialistComment on above:Result Comment: Effective 03/19/2019 reference range changed.Performed By: #### CMP, LIPD #### [facility] [address], [place] [id number] [Catalytic activity/Vol]21 U/LNormal9-34NortProtestant Hospital Medical SpecialistComment on above:Performed By: #### CMP, LIPD #### [facility] [address], [place] [id number]/CREA28 RatioHigh6-22NortProtestant Hospital Spragger Comment on above:Performed By: #### CMP, LIPD #### [facility] [address], [place] [id number] [Mass/Vol]9.3 mg/dLNormal8.6-10.2[facility] [place] [facility] SpecialistComment on above:Performed By: #### CMP, LIPD #### [facility] [address], [place] [id number] [Moles/Vol]106 mmol/HKkrezj01-278Wfwsvsjm [place] [facility] SpecialistComment on above:Performed By: #### CMP, LIPD #### [facility] [address], [place] [id number] [Moles/Vol]24 mmol/FMzfrbi51-74Iiwrwchy [place] [facility] SpecialistComment on above:Performed By: #### CMP, LIPD #### [facility] [address], [place] [id number] [Mass/Vol]1.1 mg/dLNormal0.6-1.4NoMercy Hospital SpecialistComment on above:Performed By: #### CMP, LIPD #### [facility] [address], [place] [id number] mL/min/1.24p3Uok>60NoMercy Hospital Specialist Comment on above:Performed By: #### CMP, LIPD #### [facility] [address], [place] [id number] mL/min/1.53k2Hfi>60NoMercy Hospital Specialist Comment on above:Performed By: #### CMP, LIPD #### [facility] [address], [place] [id number] (S) [Mass/Vol]2.5 g/dLNormal1.9-3.7NoMercy Hospital SpecialistComment on above:Performed By: #### CMP, LIPD #### [facility] [address], [place] [id number] [Mass/Vol]94 mg/vPShkbub70-66Csxemuxl [place] Medical SpecialistComment on above:Result Comment: For FASTING Glucose --- ADA reference ranges: Normal 65-99 mg/dl Prediabetes 100-125 Diabetes >/= 126Performed By: #### CMP, LIPD #### [facility] [address], [place] [id number] [Moles/Vol]4.4 mmol/LNormal3.5-5.5NoMercy Hospital SpecialistComment on above:Performed By: #### CMP, LIPD #### [facility] [address], [place] [id number] [Mass/Vol]6.7 g/dLNormal6.1-8.1[facility] SpecialistComment on above:Performed By: #### CMP, LIPD #### [facility] [address], [place] [id number] [Moles/Vol]141 mmol/CCctptd489-500Aziesbkk [place] [facility] SpecialistComment on above:Performed By: #### CMP, LIPD #### [facility] [address], [place] [id number]<0.3NormalNoMercy Hospital SpecialistComment on above:Performed By: #### CMP, LIPD #### [facility] [address], [place] [id number] nitrogen [Mass/Vol]32 mg/dLHigh7-25NortProMedica [facility] SpecialistComment on above:Performed By: #### CMP, LIPD #### [facility] [address], [place] [id number] Panelon 82-84-2360Fadfipyvmjz [Mass/Vol]237 mg/dLHigh 125-200NoMercy Hospital SpecialistComment on above:Result Comment: Low risk < 200mg/dL Borderline risk 201-239 mg/dl High risk > or equal to 240Performed By: #### CMP, LIPD #### [facility] [address], [place] [id number] in HDL [Mass/Vol]100 mg/dLNormal>40NoMercy Hospital SpecialistComment on above:Result Comment: High Cardiovascular Risk HDL <40 mg/dL Low Cardiovascular Risk HDL > or equal to 60 mg/dlPerformed By: #### CMP, LIPD #### [facility] [address], [place] [id number] in LDL [Mass/Vol]124 mg/dLNormSheltering Arms Hospital SpecialistComment on above:Result Comment: LDL ATP III CLASSIFICATION LDL less than 100 mg/dl Optimal LDL 100-129 mg/dl Near or above optimal LDL 130-159 Borderline high LDL 160-189 High LDL greater than 189 mg/dl Very HighPerformed By: #### CMP, LIPD #### [facility] [address], [place] [id number] in VLDL [Mass/Vol]13 mg/dLNormalNoMercy Hospital SpecialistComment on above:Performed By: #### CMP, LIPD #### [facility] [address], [place] [id number].total/Cholesterol in HDL [Mass ratio]2 {ratio} NormalNorthern [facility] SpecialistComment on above:Performed By: #### CMP, LIPD #### [facility] [address], [place] [id number] [Mass/Vol]67 mg/eRQnasgf66-677Tudifnrb Hospital For Special CareComment on above:Result Comment: TRIG ATPIII CLASSIFICATIONS TRIG less than 150 mg/dl Normal TRIG 150-199 mg/dl Borderline High TRIG 200-500 mg/dl High TRIG greather than 500 mg/dl Very HighPerformed By: #### CMP, LIPD #### [facility] [address], [place] [id number] M/2D COMPLETEon [id number] M/2D COMPLETE Patient: RADHA BARRAZA Exam Date: 10/24/2020 : 1945 Gender:F Ordering : DR SHARI MCKEON M.D. Admission #: [id number] Family : Order #: [id number] CLICK HERE TO VIEW EXAM ECHOCARDIOGRAM REPORT [...] Area(A4C): 13.90 cm2 Left Atrium Systolic Volume(A2C): 27777 mm3 Left Atrium Systolic Volume(A4C): 27521 mm3 Mitral Valve MV E to A Ratio: 1.10 Mitral Valve A-Wave Peak Velocity: 68.60 cm/s Mitral Valve E-Wave Peak Velocity: 74.50 cm/s Deceleration Time: 259 ms Right Ventricle Aorta AO Root Diam: 2.60 cm Aortic Valve Peak Velocity (Antegrade Flow): 161.00 cm/s, 230.00 cm/s AoV Area (Peak Daniel): 1.93 cm2 AoV Area (VTI): 1.90 cm2 Deceleration [place]: 1880 mm/s2 Pressure Half-Time: 528 ms Peak Velocity: 339.00 cm/s Peak Gradient: 46 mm[Hg] Peak Velocity(Antegrade Flow): 231.00 cm/s Peak Gradient(Antegrade Flow): 21 mm[Hg] Mean Velocity(Antegrade Flow): 162.00 cm/s Mean Gradient(Antegrade Flow): 12 mm[Hg] Velocity Time Integral: 50.20 cm Tricuspid Valve Peak Velocity (Regurgitant Flow): 206.00 cm/s, 224.00 cm/s Pulmonic Valve Peak Velocity: 117.00 cm/s Peak Gradient: 5 mm[Hg] Right Atrium Dictated by: Benny Burrows M.D. on 10/24/2020 at 19:11 Approved by: Benny Burrows M.D. on 10/24/2020 at 19:17NoOhioHealth Van Wert HospitalHEMOGLOBINon [id number] (Bld) [Mass/Vol]12.3 g/dLNormal 12.0-16.0The [facility]lyria Medical Centerment on above:Performed By: #### HGB #### [facility] [address] [place] [address] Geraldo KarenH PYLORI TISSUEon 02-01-2020H PYL TISSUE, UREASENegativeNormal NEGATIVEThe [facility] on above:Performed By: #### HGB #### [facility] [address] [place] [address] Geraldo KarenCOVID-19 PCRon 11-04-3662KBDV-CoV-2 (COVID-19) RNA VIVIENNE+probe Ql (Unsp spec)Not detectedNormalNot DetectedThe [facility] on above: Result Comment: This nucleic acid amplification test was developed and its performance characteristics determined by [employer]. Nucleic acid amplification tests include PCR and [...] a negative (not detected) result in this assay.Performed By: #### CVDSTAT, CVDPCR #### [facility] [address] [place] [address] Geraldo KarenPRIORITY COVID PROCESSINGon 74-29-5475LtmxzaxMofpverUppudmFktUniversity Hospitals Cleveland Medical CenterCompromedica [facility] on above:Result Comment: ReceivedPerformed By: #### CVDSTAT, CVDPCR #### [facility] [address] [place] [address] Geraldo KarenCULTURE BLOODon [id number] examination of blood, culture Culture Observations: No [...] <=0.25 S F Levofloxacin <=0.12 S F Trimethoprim/Sulfamethoxazole <=20 S FNormalWyandot Memorial HospitalComment on above:Performed By: #### HGB #### [facility] [address] [place] [address] Geraldo CharlesleeBLOOD CULTURE ID PANELon 01-02-2020A. baumanniiNot detectedPremier Health Miami Valley HospitalComment on above:Performed By: #### BCID #### [facility] [address] [place] [address] Geraldo KarenBCID CONTROLSPASSEDPremier Health Miami Valley HospitalComment on above: Performed By: #### BCID #### [facility] [address] [place] [address] Geraldo KarenBCIDBTHDBLOOD CULTURE BOTTLE [facility] Comment on above:Performed By: #### BCID #### [facility] [address] [place] [address] Geraldo HndrkRSRFEX3KKWHCPPDEPRZI RESISTANCE [facility] Comment on above:Performed By: #### BCID #### [facility] [address] [place] [address] Geraldo CharlesCnfqcBKESNY5GXF Mercy HospitalComment on above:Result Comment: KPC- carbapenem resistance gene, mecA- methecillin resistance gene, van A/B- vancomycin resistance gene Note: Antimicrobial resitance can occur via multiple mechanisms. A Not Detectedresult for the FilmArray antomicrobial resistance gene assays does not indicate antimicrobial susceptibility. Subculturing is required for specis identificationand susceptibility testing of isolates.Performed By: #### BCID #### [facility] [address] [place] [address] Geraldo CharlesKgdlyUDDHIG7RqcdfgowEcjjlkJtl [facility] HospitalCompromedica [facility] on above:Performed By: #### BCID #### [facility] [address] [place] [address] Geraldo CharlesWomasMMJVBF5NewufgvwCpkpamOpa [facility] HospitalCompromedica [facility] on above:Performed By: #### BCID #### [facility] [address] [place] [address] Geraldo CharlesUutktTLERHJ3QJBNJSqnjifJsaPremier Health Miami Valley HospitalCompromedica [facility] hospital on above:Performed By: #### BCID #### [facility] [address] [place] [address] Geraldo CharlesLiehjNPGJWV8IXW [facility] on above:Result Comment: Note: All genus and species BCID FilmArray results will be verified post subculturing via Maldi-Tof MS testing methodology.Performed By: #### BCID #### [facility] [address] [place] [address] Geraldo KarenBottle Set:Set 2NormalMagruder Hospital on above: Performed By: #### BCID #### [facility] [address] [place] [address] Geraldo KarenBottle:AerobicPremier Health Miami Valley HospitalCompromedica cold[facility] regional hospital on above:Performed By: #### BCID #### [facility] [address] [place] [address] Geraldo KarenCandida albicansNot detectedSelect Medical [facility] HospitalComment on above:Performed By: #### BCID #### [facility] [address] [address] Geraldo KarenCandida glabrataNot detectedNoOhioHealth [facility] Center HospitalComment on above:Performed By: #### BCID #### [facility] [address] [address] Geraldo KarenCandida KruseiNot detectedNoOhioHealth Nelsonville Health Center HospitalComment on above:Performed By: #### BCID #### [facility] [address] [address] Geraldo KarenCandida ParapsilosisNot detectedSelect Medical [facility] HospitalComment on above:Performed By: #### BCID #### [facility] [address] [address] Geraldo KarenCandida TropicalisNot detectedSelect Medical [facility] HospitalComment on above:Performed By: #### BCID #### [facility] [address] [address] Geraldo Pack. Cloacae complexNot detectedSelect Medical [facility] HospitalComment on above:Performed By: #### BCID #### [facility] [address] [address] Geraldo KarenEnterobacteriaceaeDetectedInvalid Interpretation CodeThe [facility] HospitalComment on above:Performed By: #### BCID #### [facility] [address] [address] Geraldo KarenEnterococcusNot detectedNoOhioHealth Nelsonville [facility] Center HospitalComment on above: Performed By: #### BCID #### [facility] [address] [address] Geraldo KarenEscheria coliDetectedSelect Medical [facility] HospitalComment on above: Performed By: #### BCID #### [facility] [address] [address] Geraldo MelvinleeK. oxytocaNot detectedSelect Medical [facility] HospitalComment on above: Performed By: #### BCID #### [facility] [address] [address] Geraldo KarenK. pneumoniaeNot detectedNoOhioHealth Nelsonville Health Center HospitalComment on above:Performed By: #### BCID #### [facility] [address] [address] Geraldo KarenKPC Resistant GeneNot detectedNoOhioHealth Nelsonville [facility] Center HospitalComment on above:Performed By: #### BCID #### [facility] [address] [address] Geraldo KarenList. monocytogenesNot detectedNoOhioHealth Nelsonville [facility] Center HospitalComment on above:Performed By: #### BCID #### [facility] [address] [place] [address] Geraldo KarenmecA Resistant GeneNot detectedSelect Medical [facility] HospitalComment on above:Performed By: #### BCID #### [facility] [address] [place] [address] Geraldo KarenProteusNot detectedSelect Medical [facility] HospitalComment on above: Performed By: #### BCID #### [facility] [address] [address] Geraldo KarenPseud. aeruginosaNot detectedSelect Medical [facility] HospitalComment on above:Performed By: #### BCID #### [facility] [address] [place] [address] Geraldo KarenSeratia marcescensNot detectedSelect Medical [facility] HospitalComment on above:Performed By: #### BCID #### [facility] [address] [place] [address] Geraldo KarenSite:R ACNormalThe Garvin HospitalComment on above:Performed By: #### BCID #### [facility] [address] [place] [address] Geraldo KarenStaph. aureusNot detectedNoOhioHealth [facility] Center HospitalComment on above:Performed By: #### BCID #### [facility] [address] [place] [address] Geraldo KarenStaphylococcusNot detectedNoOhioHealth [facility] Center HospitalComment on above:Performed By: #### BCID #### [facility] [address] [place] [address] Geraldo KarenStrep. agalactiaeNot detectedNoOhioHealth Van Wert HospitalComment on above:Performed By: #### BCID #### [facility] [address] [place] [address] Geraldo KarenStrep. pneumoniaeNot detectedNoOhioHealth [facility] Center HospitalComment on above:Performed By: #### BCID #### [facility] [address] [place] [address] Geraldo KarenStrep. pyogenesNot detectedNoOhioHealth [facility] Center HospitalComment on above:Performed By: #### BCID #### [facility] [address] [place] [address] Geraldo KarenStreptococcusNot detectedSelect Medical [facility] HospitalComment on above:Performed By: #### BCID #### [facility] [address] [place] [address] Geraldo KarenvanA/B Resist. GeneNot detectedNoOhioHealth Van Wert HospitalComment on above:Performed By: #### BCID #### [facility] [address] [place] [address] Geraldo KarenCBC AUTO DIFFon [id number] #0.0 103/ulNormal0.0-0.1The [facility] HospitalComment on above:Performed By: #### CBC #### [facility] [address] [place] [address] Geraldo KarenBasophils/100 WBC (Bld)0.3 %Normal0.2-2.0The [facility] Comment on above:Performed By: #### CBC #### [facility] [address] [place] [address] Geraldo KarenEO #0.0 103/ulNormal0.0-0.7The [facility] HospitalComment on above: Performed By: #### CBC #### [facility] [address] [place] [address] Geraldo KarenEosinophils/100 WBC (Bld)0.3 %Critically low0.9-7.0The [facility] HospitalComment on above:Performed By: #### CBC #### [facility] [address] [place] [address] Geraldo KarenErythrocyte distribution width (RBC) [Ratio]12.6 %Eaqsvn89.0-15.0The [facility] HospitalComment on above:Performed By: #### CBC #### [facility] [address] [place] [address] Geraldo KarenHematocrit (Bld) [Volume fraction]42.7 %Wbdkkd20.0-48.0The [facility]vin HospitalComment on above:Performed By: #### CBC #### [facility] [address] [place] [address] Geraldo KarenHemoglobin (Bld) [Mass/Vol]13.6 g/mWAmrvzt74.0-16.0The [facility] HospitalComment on above:Performed By: #### CBC #### [facility] [address] [place] [address] Geraldo KarenIG #0.04 10e3/ulCritically high0.00-0.03The [facility] HospitalComment on above:Performed By: #### CBC #### [facility] [address] [place] [address] Geraldo KarenIG %0.3 %Normal0.0-0.5The [facility] HospitalComment on above: Performed By: #### CBC #### [facility] [address] [place] [address] Geraldo KarenLYMPH #0.5 103/ulCritically low1.2-3.8The [facility] HospitalComment on above:Performed By: #### CBC #### [facility] [address] [place] [address] Geraldo KarenLymphocytes/100 WBC (Bld)4.4 %Critically low20.5-60.0The [facility] HospitalComment on above:Performed By: #### CBC #### [facility] [address] [place] [address] Geraldo KarenMANUAL DIFF REQNONormalThe [facility] HospitalComment on above: Performed By: #### CBC #### [facility] [address] [place] [address] Geraldo GaitanH (RBC) [Entitic mass]30.6 jwLpfkzj13.7-34.0[facility] Comment on above:Performed By: #### CBC #### [facility] [address] [place] [address] Geraldo GaitanMCHC (RBC) [Mass/Vol]31.9 g/yLRwghwd08.9-35.2[facility] Comment on above:Performed By: #### CBC #### [facility] [address] [place] [address] Geraldo GaitanMCV (RBC) [Entitic vol]96.0 bTVdufgy64.0-99.0[facility] Comment on above:Performed By: #### CBC #### [facility] [address] [place] [address] Geraldo KarenMONO #0.8 103/ulNormal0.3-0.8The [facility] HospitalComment on above: Performed By: #### CBC #### [facility] [address] [place] [address] Geraldo KarenMonocytes/100 WBC (Bld)6.5 %Normal1.7-12.0[facility] Comment on above:Performed By: #### CBC #### [facility] [address] [place] [address] Geraldo KarenNEUT #10.1 103/ulCritically high1.4-6.5The [facility] HospitalComment on above:Performed By: #### CBC #### [facility] [address] [place] [address] Geraldo KarenNeutrophils/100 WBC (Bld)88.2 %Critically high43.0-75.0[facility] HospitalComment on above:Performed By: #### CBC #### [facility] [address] [place] [address] Geraldo KarenPlatelet mean volume (Bld) [Entitic vol]9.8 fLNormal9.5-13.5The [facility] HospitalComment on above:Performed By: #### CBC #### [facility] [address] [place] [address] Geraldo GaitanPLT254 103/vjLrehvc319-351Vsf [facility] HospitalComment on above: Performed By: #### CBC #### [facility] [address] [place] [address] Geraldo KarenRBC4.45 106/ulNormal4.20-5.40The [facility] HospitalComment on above: Performed By: #### CBC #### [facility] [address] [place] [address] Geraldo KarenCT HEAD WO CONon [id number] HEAD WO CONEXAMINATION: CT HEAD WO CON HISTORY: Frontal headache [...] Electronically authenticated by: REMY NESS Date: 2020-01-02 19:00NoOhioHealth Van Wert HospitalCULTURE BLOODon [id number] examination of blood, cultureCulture Observations: No growth at 5 daysNoOhioHealth Van Wert HospitalComment on above:Performed By: #### HGB #### [facility] [address] [place] [address] Geraldo KarenCULTURE URINEon [id number] URINECulture Observations: Light growth of mixed genital eliezer.No potential pathogens seen.NormalThe Tj HospitalComment on above:Performed By: #### HGB #### [facility] [address] [place] [address] Geraldo KarenER URINE PROFILEon [id number] Ql (U)NegativeNormalNEGATIVE [facility] HospitalCompromed[facility] on above:Performed By: #### KANDICE THOMPSONRO #### [facility] [address] [place] [address] Geraldo KarenClarity (U)SL CLOUDYNormalWyandot Memorial HospitalComment on above: Performed By: #### KANDICE THOMPSONRO #### [facility] [address] [place] [address] Geraldo KarenColor (U)LT. YELLOWNormalYELLOWWyandot Memorial HospitalCompromedica cold[facility] hospital on above:Performed By: #### MELODY THOMPSON #### [facility] [address] [place] [address] Geraldo KarenERUAHDA micrscopic examination will be performed if indicated.Normal [facility] HospitalComment on above:Performed By: #### KANDICE THOMPSONRO #### [facility] [address] [place] [address] Geraldo KarenGlucose Ql (U)NegativeNormalNEGATIVEMagruder Hospital on above:Performed By: #### KANDICE THOMPSONRO #### [facility] [address] [place] [address] Geraldo KarenHemoglobin Ql (U)SMALLNormalNEGATIVEWyandot Memorial HospitalComment on above:Performed By: #### KANDICE THOMPSONRO #### [facility] [address] [place] [address] Geraldo KarenKetones Ql (U)NegativeNormalNEGATIVEWyandot Memorial HospitalCompromedica cold[facility] on above:Performed By: #### MELODY THOMPSON #### [facility] [address] [place] [address] Geraldo KarenLEUKOCYTESTRACENormalNEGATIVEWyandot Memorial HospitalCompromedica [facility] on above: Performed By: #### KANDICE THOMPSONRO #### [facility] [address] [place] [address] Geraldo KarenNitrite Ql (U)NegativeNormalNEGATIVEWyandot Memorial HospitalComment on above:Performed By: #### MELODY THOMPSON #### [facility] [address] [place] [address] Geraldo KarenpH (U)7.0 [pH]Normal5-9The [facility] HospitalComment on above: Performed By: #### MELODY THOMPSON #### [facility] [address] [place] [address] Geraldo KarenProtein Ql (U)30 mg/dlNoOhioHealth Van Wert HospitalComment on above: Performed By: #### MELODY THOMPSON #### [facility] [address] [place] [address] Geraldo KarenSPEC GRAVITY1.289Phmdku4.005-<=1.025The [facility] HospitalComment on above:Performed By: #### MELODY THOMPSON #### [facility] [address] [place] [address] Geraldo KarenUR MICRO INDINDICATEDPremier Health Miami Valley HospitalComment on above: Performed By: #### MELODY THOMPSON #### [facility] [address] [place] [address] Geraldo KarenUrobilinogen Qn (U)0.2 {Eileen'U}/[facility] Comment on above:Performed By: #### MELODY THOMPSON #### [facility] [address] [place] [address] Geraldo KarenLACTATE/LACTIC ACIDon [id number] [Moles/Vol]1.1 mmol/LNormal 0.7-2.0The [facility] HospitalComment on above:Performed By: #### HGB #### [facility] [address] [place] [address] Geraldo KarenPROCALCITONINon [id number] header 1SEE BELOWPremier Health Miami Valley HospitalComment on above:Result Comment: PCT <0.5ng/mL: Systemic infection (sepsis) is not likely, local bacterial infection possible, low risk for progression to severe systemic infection (severe sepsis)Performed By: #### PRL #### [facility] [address] [place] [address] Geraldo KarenPCT header 2SEE [facility] HospitalComment on above: Result Comment: PCT >/=0.5 and <2 ng/mL: Systemic infection (sepsis) is possible, moderate risk for progression to severe systemic infection (severe sepsis)Performed By: #### PRL #### [facility] [address] [place] [address] Geraldo KarenPCT header 3SEE [facility] HospitalComment on above: Result Comment: PCT >/=2.0 and <10 ng/mL: Systemic infection (sepsis) is likely, unless othercauses are known, high risk for progession to severe systemic infection(severe sepsis)Performed By: #### PRL #### [facility] [address] [place] [address] Geraldo KarenPCT header 4SEE [facility] HospitalComment on above: Result Comment: PCT >/= 10 ng/mL: Important systemic inflammatory response almost exclusively due to severe bacterial sepsis or septic shock, high likelihood of severe sepsis or septic shockPerformed By: #### PRL #### [facility] [address] [place] [address] Geraldo KarenPROCALCITONIN0.62 ng/mLCritically high0.00-0.50The [facility] Comment on above:Performed By: #### PRL #### [facility] [address] [place] [address] Geraldo KarenPROF 14(COMP METB)on [id number] [Mass/Vol]3.6 g/dLNormal 3.5-5.0The [facility] HospitalComment on above:Performed By: #### CMP #### [facility] [address] [place] [address] Geraldo KarenAlbumin/Globulin [Mass ratio]0.8 {ratio}NormalThe [facility] Comment on above:Performed By: #### CMP #### [facility] [address] [id number] Geraldo KarenALP [Catalytic activity/Vol]95 U/KTnmgwr75-374Hpl [facility] Comment on above:Performed By: #### CMP #### [facility] [address] [address] Geraldo KarenALT [Catalytic activity/Vol]32 U/LNormal9-52[facility] Comment on above:Performed By: #### CMP #### [facility] [address] [address] Geraldo KarenAnion gap [Moles/Vol]13.8 mmol/LNormalThe [facility] HospitalComment on above:Performed By: #### CMP #### [facility] [address] [place] [address] Geraldo KarenAST [Catalytic activity/Vol]42 U/LCritically efxs15-23RlhWyandot Memorial HospitalComment on above:Performed By: #### CMP #### [facility] [address] [place] [address] Geraldo KarenBilirubin [Mass/Vol]0.5 mg/dLNormal0.2-1.3TAdena Regional Medical Center Comment on above:Performed By: #### CMP #### [facility] [address] [place] [address] Geraldo KarenCalcium [Mass/Vol]9.4 mg/dLNormal8.4-10.2[facility] Comment on above:Performed By: #### CMP #### [facility] [address] [place] [address] Geraldo KarenChloride [Moles/Vol]100 mmol/KZjhqys03-413UnnWyandot Memorial Hospital Comment on above:Performed By: #### CMP #### [facility] [address] [place] [address] Geraldo KarenCO2 [Moles/Vol]24.6 mmol/LWkdznz70.0-30.0[facility] Comment on above:Performed By: #### CMP #### [facility] [address] [place], [place] [address] Geraldo KarenCreatinine [Mass/Vol]1.36 mg/dLCritically high0.52-1.04The [facility] HospitalComment on above:Performed By: #### CMP #### [facility] [address] [place] [address] Geraldo KarenEGFR-AF OUMYWDNB26 mL/min/1.85q4Lltrcvmuqk low>=60The [facility] HospitalComment on above:Performed By: #### CMP #### [facility] [address] [place] [address] Geraldo KarenEGFR-NON AF RCDBPEGB26 mL/min/1.30n3Dgdqiuvtbc low>=60The [facility] HospitalComment on above:Performed By: #### CMP #### [facility] [address] [place] [address] Geraldo KarenGlobulin (S) [Mass/Vol]4.5 g/dLNormalThe [facility] HospitalComment on above:Performed By: #### CMP #### [facility] [address] [place] [address] Geraldo KarenGlucose [Mass/Vol]120 mg/dLCritically mprk07-367Tpl [facility] HospitalComment on above:Performed By: #### CMP #### [facility] [address] [place] [address] Geraldo KarenPotassium [Moles/Vol]3.4 mmol/LNormal3.4-5.0The [facility] Comment on above:Performed By: #### CMP #### [facility] [address] [place] [address] Geraldo KarenProtein [Mass/Vol]8.1 g/dLNormal6.1-8.2The [facility] HospitalComment on above:Performed By: #### CMP #### [facility] [address] [place] [address] Geraldo KarenSodium [Moles/Vol]135 mmol/LCritically oza898-785Afe [facility] HospitalComment on above:Performed By: #### CMP #### [facility] [address] [place] [address] Geraldo KarenUrea nitrogen [Mass/Vol]22.0 mg/dLCritically high7.0-17.0[facility] HospitalComment on above:Performed By: #### CMP #### [facility] [address] [address] Geraldo KarenUrea nitrogen/Creatinine [Mass ratio]16.2 mg/mgNormalThe [facility] HospitalComment on above:Performed By: #### CMP #### [facility] [address] [address] Geraldo KarenRESPIRATORY PANEL PLUSon [id number] detectedNormalNOT DETECTEDThe [facility] HospitalComment on above:Performed By: #### RSPLUS #### [facility] [address] [place] [address] Geraldo KarenB. ParapertusisNot detectedNormalNOT DETECTEDWyandot [facility] Hospital Comment on above:Performed By: #### RSPLUS #### [facility] [address] [place] [address] Geraldo KarenB. PertussisNot detectedNormalNOT DETECTEDWyandot Memorial Hospital Comment on above:Performed By: #### RSPLUS #### [facility] [address] [place] [address] Geraldo KarenChlamydia PneumoniaeNot detectedNormalNOT DETECTEDThe [facility] HospitalComment on above:Performed By: #### RSPLUS #### [facility] [address] [place] [address] Geraldo KarenCoronavirus 229ENot detectedNormalNOT DETECTEDThe [facility] Comment on above:Performed By: #### RSPLUS #### [facility] [address] [place] [address] Geraldo KarenCoronavirus QJL6Vqd detectedNormalNOT DETECTEDWyandot [facility] Hospital Comment on above:Performed By: #### RSPLUS #### [facility] [address] [place] [address] Geraldo KarenCoronavirus GO35Nkx detectedNormalNOT DETECTEDWyandot Memorial Hospital Comment on above:Performed By: #### RSPLUS #### [facility] [address] [place] [address] Geraldo KarenCoronavirus FY95Jzx detectedNormalNOT DETECTEDThe [facility] Comment on above:Performed By: #### RSPLUS #### [facility] [address] [address] Geraldo KarenInfluenza A H1 2009Not detectedNormalNOT DETECTEDThe [facility] HospitalComment on above:Performed By: #### RSPLUS #### [facility] [address] [address] Geraldo KarenInfluenza BNot detectedNormalNOT DETECTEDThe [facility] Comment on above:Performed By: #### RSPLUS #### [facility] [address] [address] Geraldo KarenMetapneumovirusNot detectedNormalNOT DETECTEDWyandot [facility] Hospital Comment on above:Performed By: #### RSPLUS #### [facility] [address] [address] Geraldo KarenMycoplas. PneumoniaeNot detectedNormalNOT DETECTEDThe [facility] HospitalComment on above:Performed By: #### RSPLUS #### [facility] [address] [address] Geraldo KarenParainfluenza 1Not detectedNormalNOT DETECTEDW[facility]and[facility] Hospital Comment on above:Performed By: #### RSPLUS #### [facility] [address] [address] Geraldo KarenParainfluenza 2Not detectedNormalNOT DETECTEDThe [facility] Comment on above:Performed By: #### RSPLUS #### [facility] [address] [address] Geraldo KarenParainfluenza 3Not detectedNormalNOT DETECTEDThe [facility] Comment on above:Performed By: #### RSPLUS #### [facility] [address] [address] Geraldo KarenParainfluenza 4Not detectedNormalNOT DETECTEDThe [facility] Comment on above:Performed By: #### RSPLUS #### [facility] [address] [address] Geraldo CharlesenRhino/EnterovirusNot detectedNormalNOT DETECTEDWyandot Memorial Hospital Comment on above:Performed By: #### RSPLUS #### [facility] [address] [place] [address] Geraldo KarenRP2 Header 1RESPIRATORY PANEL: VIRUSESPremier Health Miami Valley Hospital Comment on above:Performed By: #### RSPLUS #### [facility] [address] [place] [address] [facility]2 Header 2RESPIRATORY PANEL: BACTERIAPremier Health Miami Valley Hospital Comment on above:Performed By: #### RSPLUS #### [facility] [address] [place] [address] Geraldo Karen2 Header 4 EUASEE BELOWPremier Health Miami Valley HospitalComment on above:Result Comment: This test is not yet approved or cleared by the [place] FDA. When there are no FDA-approved or cleared tests available, and other criteria are met, FDA can make tests available under an emergency access mechanism called an Emergency Use Authorization (EUA). The EUA for this test is supported by the [place] of Health and Human Service?s (HHS?s) declaration [...] which the test may no longer be used).Performed By: #### RSPLUS #### [facility] [address] [place] [address] Geraldo GaitanRSVNot detectedNormalNOT DETECTEDWyandot Memorial HospitalComment on above:Performed By: #### RSPLUS #### [facility] [address] [place] [address] Geraldo DaleyAweokHGZT-GtJ-1 (COVID-19) RNA VIVIENNE+probe Ql (Unsp spec)Not detectedNormal NOT DETECTEDThe [facility] HospitalComment on above:Performed By: #### RSPLUS #### [facility] [address] [address] Geraldo KarenURINE MICROSCOPIC ONLYon [id number]EB SEEN [facility] HospitalCompromed[facility] on above:Performed By: #### MELODY THOMPSON #### [facility] [address] [place] [address] Geraldo KarenBacteria identified Cx Nom (U)INDICATEDPremier Health Miami Valley Hospital Comment on above:Performed By: #### MELODY THOMPSON #### [facility] [address] [place] [address] Geraldo KarenCASTNONE SEENNormalNONE SEENWyandot Memorial HospitalCompromedica cold[facility] hospital on above: Performed By: #### MELODY THOMPSON #### [facility] [address] [place] [address] Geraldo KarenCrystals LM Nom (Urine sed)NONE SEENSaint Francis Medical CenteralOASIS BEHAVIORAL HEALTH HOSPITALE SEENWyandot Memorial HospitalCompromedica [facility] hospital on above:Performed By: #### MELODY THOMPSON #### [facility] [address] [place] [address] Geraldo KarenEpithelial cells LM Ql (Urine sed)[facility] Comment on above:Performed By: #### MELODY THOMPSON #### [facility] [address] [place] [address] Geraldo KarenMUCOUSNONE SEENNormalNONE SEENWyandot Memorial HospitalCompromedica cold[facility] hospital on above: Performed By: #### MELODY THOMPSON #### [facility] [address] [place] [address] Geraldo JacxoUKM4-7Yecnoi2-8Mzu [facility] HospitalCompromedica [facility] on above:Performed By: #### MELODY THOMPSON #### [facility] [address] [place] [address] Geraldo KarenWBC5-10NormalNONE SEENWyandot Memorial HospitalCompromedica coldwater regional hospital on above: Performed By: #### MELODY THOMPSON #### [facility] [address] [place] [address] Geraldo KarenXR CHEST 1 Von [id number] CHEST 1 VEXAM: XR CHEST 1 V HISTORY: COUGH COMPARISON: Chest, 09/15/2012. TECHNIQUE: AP chest radiograph. FINDINGS: Cardiac size, mediastinal contour and pulmonary vascularity are within normal limits. The lungs and pleural spaces are clear. A broad thoracic dextroscoliosis is noted. Anterior cervical fusion hardware appears unchanged. IMPRESSION: No acute cardiopulmonary disease. Electronically authenticated by: REMY NESS Date: 2020-01-02 18:52[facility] Vital Signs Date TimeVital SignValuePerforming LdmtklrtlLbavcerh99-92-5847 09:31-0400Body fnnxoq671.9 cmPaul Laffay DO Work Phone: [phone] HospitalCjftgscznx85-85-3725 09:31-0400Body mass index (BMI) [Ratio]21.61 kg/m2Paul Laffay DO Work Phone: [phone]' HospitalPnhmumefwf76-72-5606 09:31-0400Body .53 kgPaul Laffay DO Work Phone: [facility] HospitalQupyjyqnep98-28-9819 11:06-0400Body byfywu841.9 cmPaul Laffay DO Work Phone: [facility] HospitalEyiybrnyag12-19-5236 11:06-0400Body mass index (BMI) [Ratio]21.61 kg/m2Paul Laffay DO Work Phone: [facility] HospitalXgapecbype84-15-3244 11:06-0400Body lynjkw20.53 kgPaul Laffay DO Work Phone: [facility] HospitalAjkooqvpxj77-33-5325 11:06-0400Diastolic blood llnbuntm03 mm[Hg]Shahriar Laffay DO Work Phone: [facility] HospitalTsasxgkmrr56-82-9502 11:06-0400Systolic blood eybutfwt590 mm[Hg]Shahriar Laffay DO Work Phone: [facility] HospitalWlwejokwli41-37-7117 11:40-0400Body temperature 98.7 [degF]Shari Mckeon MD Work Phone: [phone] [place], [place] 3303407-27-2025 11:40-0400 Diastolic blood nyngutii75 mm[Hg]Shari Mckeon MD Work Phone: [phone] [place], [place] 3303407-27-2025 11:40-0400 Heart rate84 /Uriel Mckeon MD Work Phone: [phone] [place], [place] 3303407-27-2025 11:40-0400 Respiratory rate16 /Uriel Mckeon MD Work Phone: [phone] [place], [place] 3303407-27-2025 11:40-0400 SaO2% (BldA) [Mass fraction]94 %Shari Mckeon MD Work Phone: [phone] [place], [place] 3303407-27-2025 11:40-0400 Systolic blood mm[Hg]Shari Mckeon MD Work Phone: [phone] [place], [place] 3303407-26-2025 10:40-0400 Inhaled oxygen flow rate8 L/Uriel Mckeon MD Work Phone: [phone] [place], [place] 3303407-26-2025 04:42-0400 Body zezlmu608.86 cmShari Mckeon MD Work Phone: [phone] [place], [place] 3303407-26-2025 04:42-0400 Body sbuypg19 kgShari Mckeon MD Work Phone: [phone] [place], [place] 3303407-16-2025 14:01-0400 Body cxoxxb390.9 cmSmorgan Ortiz NP Work Phone: [phone] [place], [place] 7974907-16-2025 14:01-0400Body mass index (BMI) [Ratio]21.97 kg/q7YdclrChina Ortiz HEAD TRACK COACH Work Phone: [phone]91[facility] HospitalWkpumlytvj38-91-7244 14:01-0400Body ggxnru21.35 kgChina Ortiz HEAD TRACK COACH Work Phone: [address] [address]Zbbnrhzyim16-76-0609 14:01-0400Diastolic blood acuqwvls70 mm[Hg]China Ortiz HEAD TRACK COACH Work Phone: [phone] [address]Kjvaalgtgi82-19-5412 14:01-0400Heart rate62 /min China Ortiz HEAD TRACK COACH Work Phone: [phone] [address]Idzcehcemg26-12-9222 14:01-3390PbY0% (BldA) [Mass fraction]95 %China Ortiz HEAD TRACK COACH Work Phone: [phone] [place] [address]-16-2025 14:01-0400Systolic blood bxpmfzpa524 mm[Hg]China Ortiz HEAD TRACK COACH Work Phone: [phone]' HospitalRnrcwuusya22-01-4303 10:42-0500Diastolic blood mm[Hg]China Ortiz HEAD TRACK COACH Work Phone: [phone]' HospitalCtcnhoyjnc67-69-8417 10:42-0500Systolic blood yesrprjs424 mm[Hg]China Ortiz HEAD TRACK COACH Work Phone: [phone] [place], [place] [address]Wghuoekkwm11-35-1302 10:34-0500Body qlgxut219.9 cmSmorgan Ortiz HEAD TRACK COACH Work Phone: [phone]' HospitalNaqgzqgoyd02-46-0631 10:34-0500Body mass index (BMI) [Ratio]20.28 kg/f1CzylmChina Ortiz HEAD TRACK COACH Work Phone: [phone]' HospitalLlwxvxbwxn36-38-6051 10:34-0500Body temperature 99.3 [degF]China Ortiz HEAD TRACK COACH Work Phone: [phone] [address]Kzkaiuredw67-90-2694 10:34-0500Body .54 kgSasandra Ortiz HEAD TRACK COACH Work Phone: [phone] [address]Yqlivftflc60-11-7150 10:34-0500Heart rate86 /min China Ortiz HEAD TRACK COACH Work Phone: [place] [address]Sqnzpwpnnw29-35-0899 10:34-0538TnS1% (BldA) [Mass fraction]96 %China Ortiz HEAD TRACK COACH Work Phone: [facility] HospitalIkbjaindpe27-95-8007 13:0500Body yjspfd931.9 cmSteven Rusher DPM Work Phone: [facility] HospitalXwjxzgjokt82-15-3066 13:04-0500Body mass index (BMI) [Ratio]20.2 kg/u0Gvztvm Rusher DPM Work Phone: [facility] HospitalCgxjtwmpfv23-41-6401 13:050Body scvbyd95.36 kgSteven Rusher DPM Work Phone: [facility] Healthcare Encounters Encounter DateEncounter TypeCare ProviderFacilityStart: 12-18-2024 End: 69-33-8212Dtgylojzm encounterShari Mckeon MD Work Phone: [facility]art: 12-03-2024 End: 65-70-1075Ygsoxvjxm Result EncounterGeneric External Data ProviderNOMS External Department UnsolicitedStart: 12-03-2024 End: 92-95-3945Nxwgquyzb Result EncounterGeneric External Data ProviderNOMS External Department UnsolicitedStart: 12-03-2024 End: 27-56-1499Yyiasfbrf encounterShari Mckeon MD Work Phone: [facility] MedicineStart: 12-03-2024 End: 93-67-2697twhupunhgpFPQYGB [facility] Start: 11-23-2024 End: 41-16-8393Jeyzzwgrw Result EncounterGeneric External Data ProviderNOMS External Department UnsolicitedStart: 11-23-2024 End: 99-07-3779Unlfjxjlw Result EncounterGeneric External Data ProviderNOMS External Department UnsolicitedStart: 11-15-2024 End: 30-46-2026cdbjnvyvyrVQUUPFT [facility] Systemtart: 11-02-2024 End: 15-08-5614Apddtp follow up visit related to original Madhuri Warren DO Work Phone: [facility] Surgical AssociatesComment on above:Acute cholecystitis (Primary Dx)Start: 11-02-2024 End: 22-47-8469ambgrtlplhDQMB C LAFFAYNot AvailableStart: 11-01-2024 End: 57-86-8784eoejwzhmbnPRPCE A KAMAscension St. [facility]'s [facility] HospitalStart: 10-10-2024 End: 52-93-1433Hvgfpo follow up visit related to original pxPaul C Laffay DO Work Phone: noms Surgical AssociatesComment on above:Acute cholecystitis (Primary Dx)Start: 10-10-2024 End: 97-43-4548nsyrakfixpQMAF C LAFFAYNot AvailableStart: 10-07-2024 End: 30-93-2571Ahsfpbhk Result EncounterPaul C Laffay DO Work Phone: noms External Department UnsolicitedStart: 10-07-2024 End: 73-03-0077Rrhukviz Result EncounterPaul C Laffay DO Work Phone: [facility]oms External Department UnsolicitedStart: 10-06-2024 End: 98-17-8142Ybtvkzlfcb and management of inpatientleandro Kerns DO[address] Surgical Work Phone: Start: 09-28-2024 End: 07-35-4154Dgzczy-up Zaida Ortiz NP Work Phone: noms FNR FMComment on above:Moderate aortic regurgitation (Primary Dx); Mild aortic stenosis; SOB (shortness of breath)Start: 09-27-2024 End: 41-04-9953gnxnjxdnyeBYONWIKG G HOCHARANJITPaulding County Hospital HospitalStart: 09-26-2024 End: 32-26-0668Ghaqqg flowsSierra Ortiz HEAD TRACK COACH Work Phone: [facility] FNR FMStart: 09-26-2024 End: 31-92-6239Vanclo flowsSierra Ortiz NP Work Phone: [facility] FNR FMStart: 09-26-2024 End: 16-96-2322Uanjil outpatient visit 25 minutesSarah Kampfer HEAD TRACK COACH Work Phone: NOM[facility] FNR FMComment on above:Primary hypertension (Primary Dx); Stage 3b chronic kidney disease (CMS-HCC); Pure hypercholesterolemia ; Irregular heart beat; Shortness of breath; Chronic obstructive pulmonary disease, unspecified COPD type (HCC); Moderate aortic regurgitationStart: 09-26-2024 End: 43-85-5393nnovjxizevNHWMV KAMPFERNot AvailableStart: 06-06-2024 End: 70-54-3245Ctaggsjxx Result EncounterGeneric External Data ProviderNOMS External Department UnsolicitedStart: 06-06-2024 End: 78-07-9087Mizgictfm Result EncounterGeneric External Data ProviderNOMS External Department UnsolicitedStart: 05-09-2024 End: 66-67-9949Xtyebu Jane Ortiz HEAD TRACK COACH Work Phone: [facility] FNR FMStart: 05-09-2024 End: 10-57-0338Smtwtrbetsey Ortiz HEAD TRACK COACH Work Phone: [facility] FNR FMStart: 05-09-2024 End: 67-35-2866Yyaopl outpatient visit 15 minutesChina Ortiz HEAD TRACK COACH Work Phone: [facility] FNR FMComment on above:Chronic obstructive pulmonary disease with acute exacerbation (CMS/HCC) (Primary Dx)Start: 05-09-2024 End: 69-05-3618pudmbdoqvvJXIVP KAMPFERNot AvailableStart: 04-23-2024 End: 23-33-6802Rwcwkppub encounterShari Mckeon MD Work Phone: [facility] FNR FMStart: 04-05-2024 End: 10-92-4052UhxusjNakosddc Hohman MD Work Phone: noMS FNR FMComment on above:Mild intermittent asthma, unspecified whether complicated (CMS/HCC)Start: 02-20-2024 End: 95-96-4588mwqtrwzkibSodddaxAddis Espana MDFacility:PM Tj Start: 02-07-2024 End: 47-73-4753WhkhczNczgtydn Hohman MD Work Phone: noms FNR FMComment on above:Mild intermittent asthma, unspecified whether complicated (CMS/HCC)Start: 02-06-2024 End: 27-67-0922nbwctnqudfLkobroe Vytautas Giedraitis MDFacility:PM Tj Start: 01-24-2024 End: 84-26-5409Kefksp flowsheetSteven A Rusher DPM Work Phone: noms PODIATRYStart: 01-24-2024 End: 17-14-7406Otchik flowsheetSteven A Rusher DPM Work Phone: noms PODIATRYStart: 01-24-2024 End: 62-83-6980Mypopj outpatient visit 15 minutesSteven A Rusher DPM Work Phone: noms PODIATRYComment on above:Dermatophytosis of nail (Primary Dx); Dystrophic nail; Onychocryptosis; Pain of left great toeStart: 01-24-2024 End: 03-56-4016tbmkxvloldJRVGQX A RUSHERNot AvailableStart: 01-23-2024 End: 62-83-4426iacjjlmgvsTmlzvgj Vytautas Giedraitis MDFacility:PM [facility] Start: 01-09-2024 End: 12-86-9346rklcbmqkkwZdxtmoo Vytautas Giedraitis MDFacility:PM Tj Start: 12-28-2023 End: 02-41-5054zynibddoqoTQYQOVKC HOHMANNot AvailableStart: 12-22-2023 End: 65-55-6285TbxahfXjjwoutl Hohman MD Work Phone: n[facility] FNR FMComment on above:Primary insomniaStart: 12-13-2023 End: 20-78-5653Curhlnfhe encounterShari Mckeon MD Work Phone: n[facility] FNR FMComment on above:Encounter for screening mammogram for malignant neoplasm of breast (Primary Dx)Start: 12-12-2023 End: 06-14-3699fekfbgywkvRmxgknj Vytautas Giedraitis MDFacility:[facility] Start: 12-09-2023 End: 08-36-5951EsqkgrAcobtqte Hohman MD Work Phone: [facility] FNR FMComment on above:Mild intermittent asthma, unspecified whether complicated ([facility]/HCC)Start: 11-28-2023 End: 63-47-9069koaafagprmUodvqtt Vytautas Giedraitis MDFacility:[facility] Start: 11-17-2023 End: 68-87-3527DkqjmcLesiiowh Hohman MD Work Phone: n[facility] FNR FMComment on above:Essential hypertension ([facility]/HCC)Start: 09-05-2023 End: 84-00-4783fexjyfsovfKawimpn Vytautas Giedraitis MDFacility:PM Tj Start: 08-22-2023 End: 24-04-7156obyjmclcohSrfizgx Vytautas Giedraitis MDFacility:PM Tj Start: 07-25-2023 End: 89-05-4453xlgifmbkzcKaercnk Vytautas Giedraitis MDFacility:[facility] Start: 07-11-2023 End: 63-86-2490xhkhjwusebEmyhcty Vytautas Giedraitis MDFacility:PM Tj Start: 75-42-4043Mzfjprrdh Hoda Ramos DO Work Phone: [facility] ORTHOPAEDICSComment on above:dentistStart: 84-65-8340PzovpuCfnrcsfh A Hackenburg HEAD TRACK COACH Work Phone: noms FNR FMComment on above:Essential hypertension (CMS/HCC)Start: 07-26-2022 End: 39-97-6226xyddzufaegMTKERDQN G HOHMANFacility:[facility] HospitalStart: 06-29-2022 End: 46-53-0302neeuqjcegrOFGRWFSB G HOHMANFacility:[facility] HospitalStart: 10-24-2020 End: 85-08-4915yxnrjbdbrfMZ SHARI MCKEONFacility:F1Tpkhl: 09-30-2020 End: 43-35-5765xfeeiyvkxuAP JENNIFER HOHMANFacility:H7Bgulf: 02-01-2020 End: 61-37-7635azgpnyfhjpWO CARLOS EDUARDO MENENDEZFacility:N5Ewxmh: 01-30-2020 Encounter for preprocedural laboratory examinationDR CARLOS EDUARDO Worthy [facility] HospitalStart: 01-26-2020 End: 21-87-9195mjgesmobvdQE SHARI MCKEONFacility:K7Czfcm: 01-26-2020 End: 38-33-4696Qmqxnyvrz for preprocedural laboratory examinationDR SHARI MCKEONFacility:G9Jpepi: 01-02-2020 End: 77-61-2779dncfzabaruMY BÁRBARA Amaral SUFacility:E2Mpikd: 05-25-2018 End: 29-67-5770Qbgikhw encounter procedureDEFAULT PHYSICIANFacility:[facility] Procedures DateProcedureProcedure DetailPerforming ClinicianStart: 01-14-0085BTU BASIC METABOLIC PANELGeneric External Data ProviderStart: 58-74-7417KVW PRO BNPGeneric External Data ProviderStart: 99-28-9088Tqwybmpna totalPaul C Laffay DO Work Phone: Start: 20-73-4428Hpntucvb blood count with white cell differential, automatedPaul C Laffay DO Work Phone: Start: 22-46-9253Etsmxvmfzvnf cholecystectomyJennifer Michelle Mckeon MD Work Phone: Start: 28-41-8101Sir spinal canal thoracic w/o contrast matrlGeneric External Data Provider Plan of Treatment DateCare ActivityDetailAuthorStart: 01-17-2025 End: 19-66-4542Imkdywiqkcae / ancillary services oyqxafaarz51/06/2025 8:30 AM EST Ancillary Procedure [facility] [address] [place] [address] [facility] ImagingStart: 87-08-4090Twatzsjac vaccinationInfluenza Vaccine (#1)[facility] HealthcareStart: 40-81-6023BgsygbzoaWVUMedicine Barnesville Hospitaltart: 43-61-9851Ymnjjbtr to general surgeonWVUMedicine Barnesville Hospitaltart: 37-07-0894Ihgmyopb admissionWVUMedicine Barnesville Hospitaltart: 10-01-2024 End: 05-14-3501Gtwgmgdvsqduvn 2D completeEchocardiogram 2D complete Echocardiography Routine Moderate aortic regurgitation Mild aortic stenosis SOB (shortness of breath) Expected: 10/01/2024 (Approximate), Expires: 10/01/2026 [facility] Healthcare Work Phone: Comment on above:Expected: 10/01/2024 (Approximate), Expires: 10/01/2026Start: 09-26-2024 End: 51-68-2024LHW W Auto Differential panel - BloodCBC and differential Lab Routine Shortness of breath Expected: 09/26/2024 (Approximate), Expires: [facility] HealthcareComment on above:Expected: 09/26/2024 (Approximate), Expires: 09/26/2025Start: 09-26-2024 End: 43-45-3121Vqthcbgijvmuj metabolic 2000 panel - Serum or PlasmaComprehensive metabolic panel Lab Routine Stage 3b chronic kidney disease (CMS-HCC) Shortness of breath Expected: 09/26/2024 (Approximate), Expires: 09/26/2025N[facility] HealthcareComment on above:Expected: 09/26/2024 (Approximate), Expires: 09/26/2025Start: 09-26-2024 End: 25-00-9693EZI 12 leadECG 12 lead ECG Routine Primary hypertension Irregular heart beat Shortness of breath Expected: 09/26/2024 (Approximate), Expires: 09/26/2025[facility] Work Phone: Comment on above:Expected: 09/26/2024 (Approximate), Expires: 09/26/2025Start: 09-26-2024 End: 76-28-5004Ebnxc 1996 panel - Serum or PlasmaLipid panel Lab Routine Primary hypertension Pure hypercholesterolemia Shortness of breath Expected: 09/26/2024 (Approximate), Expires: 09/26/2025N[facility] HealthcareComment on above:Expected: 09/26/2024 (Approximate), Expires: 09/26/2025Start: 09-26-2024 End: 29-79-8406Hmlcdgg encounter dzkgqtaqd79/16/2025 2:00 PM EDT Office Visit [facility] [address] [facility] [place] [id number] China Ortiz NP [address] [facility] [place] [address] [facility]rived[facility] FNR FMComment on above:ArrivedStart: 04-05-2025Medicare Annual Wellness (AWV)Medicare Annual Wellness (AWV)NOM HealthcareStart: 05-09-2024 End: 84-05-7752Rpctwid encounter /26/2025 10:30 AM EST Office Visit [facility] [address] [facility] [place] [phone] China Ortiz, HEAD TRACK COACH [address] [place] [address] [facility]rivedM[facility] FNR FMComment on above:ArrivedStart: 12-28-2023 End: 02-44-0308Cblpvzqpyncy / ancillary services aqctzlyoic40/16/2024 9:00 AM EDT [facility] [address] [place] [address] EYDA FREGENERAL [facility]ITALT IMAGINGStart: 12-13-2023 End: 15-77-0916RH Breast - bilateral ScreeningBilateral screening mammogram Imaging Routine Encounter for screening mammogram for malignant neoplasm of breast Expected: 12/13/2023, Expires: 02/11/2025[facility] Work Phone: Comment on above:Expected: 12/13/2023, Expires: 02/11/2025Start: 50-35-4503Fzxernaze vaccinationInfluenza Vaccine (#1)[facility] HealthcareStart: 08-02-2023 End: 65-50-4697Dvmzbfk encounter mhyfpwpsp56/21/2024 9:00 AM EDT Office Visit [facility] [address] [place] [id number] Ede Ramos, [address] [place] [address] [facility] ORTHOPAEDICSStart: 02-23-2024Medicare Annual Wellness (AWV)Medicare Annual Wellness (AWV)[facility] HealthcarePatient EducationKnow your [facility] Work Phone: [facility] Work Phone: Immunizations Immunization DateImmunizationNotesCare FjquztavVncjscck28-82-3018KNQ, recombinant, protein subunit RSVpreF, adjuvant reconstitu, 120mcg/0.5mL, PF (Arexvy)China Ortiz HEAD TRACK COACH Work Phone: [facility] HospitalUnfhecnojd79-64-2472xpvrazdct, high dose seasonal, preservative-freeChina Ortiz HEAD TRACK COACH Work Phone: [facility] HospitalIqsaunuwzb19-17-7439yikgzmwnt virus vaccine, unspecified formulationSmorgan Ortiz HEAD TRACK COACH Work Phone: [facility] HospitalXjqndskdzg40-65-3995Iagjfwray, High-dose Seasonal, Quadrivalent, Preservative FreePatricia Hasobiaenburg HEAD TRACK COACH Work Phone: [facility] HospitalUftrwpzngb04-63-7853URGU-VLC-7 (COVID-19) vaccine, mRNA, spike protein, LNP, PF, 50 mcg/0.5 mLPatricia Hackenburg HEAD TRACK COACH Work Phone: [facility] HospitalIundspebyy02-39-1632kqgathzfe virus vaccine, unspecified formulationShari Mckeon MD Work Phone: [facility] HospitalOdgqlakbvv40-30-6510Lqatiqlfw, Seasonal, Quadrivalent, AdjuvantedPatricia Alessandra HEAD TRACK COACH Work Phone: [facility] HospitalIfxtohwuee48-01-4200Dkcpgsoe, trivalent, recombinant, injectable influenza vaccine, preservative freePatricia Hackenburg HEAD TRACK COACH Work Phone: [facility] HospitalJgdnlvgydf05-18-6513Bzznpkkzg, High-dose Seasonal, Quadrivalent, Preservative FreePatricia Hackenburg HEAD TRACK COACH Work Phone: [facility] HospitalLaipjnkobe07-07-7551EIZKT-24 mRNA-1273 (Moderna) Shari Mckeon MD Work Phone: [facility]02-03-2021COVID-19 mRNA-1273 (Moderna)Shari Mckeon MD Work Phone: [facility]12-03-2020zoster vaccine recombinantPatricia Hackenburg HEAD TRACK COACH Work Phone: [facility] HospitalXkavlvpidi60-33-6467zgmxpatqx, seasonal, injectablePatricia Hackenburg HEAD TRACK COACH Work Phone: [facility] HospitalHsoxawniar45-12-1537rlzrkdhlc, injectable, quadrivalent, preservative freePatricia Hackenburg HEAD TRACK COACH Work Phone: [facility] HospitalOmfrjajhmw26-12-6762nrvxxz vaccine recombinant Tamara Hackenburg HEAD TRACK COACH Work Phone: [facility] HospitalTldlohswuf16-22-2128gwtqrl vaccine recombinant Tamara Hackenburg HEAD TRACK COACH Work Phone: [facility] HospitalCujdrapymq61-15-6616Jgqjmvly trivalent influenza vaccine, adjuvanted, preservative freePatricia Hackenburg HEAD TRACK COACH Work Phone: [facility] HospitalEuoupiczgg38-01-3208ohkggopcj, high dose seasonal, preservative-freePatricia Hackenburg HEAD TRACK COACH Work Phone: [facility] HospitalLavuvfqulo50-19-8055Aoqvsare trivalent influenza vaccine, adjuvanted, preservative freePatricia Hackenburg HEAD TRACK COACH Work Phone: [facility] HospitalIqlojsjwvj67-39-8350sfvtwmkqg, high dose seasonal, preservative-freePatricia Hackenburg HEAD TRACK COACH Work Phone: [phone] Work Phone: [phone]qtkp conjugate vaccine, 13 valent Tamara Alessandra HEAD TRACK COACH Work Phone: [phone] HospitalQhprkppduy41-17-6870Feqtmhyn trivalent influenza vaccine, adjuvanted, preservative freeJose Luisia Alessandra HEAD TRACK COACH Work Phone: [phone] [place], [place] [address]Jffqzdpjjw73-35-8742xmkzwpk toxoid, reduced diphtheria toxoid, and acellular pertussis vaccine, adsorbedPabeverleyia Alessandra HEAD TRACK COACH Work Phone: [phone] HospitalEslewpttwp28-95-3329eyounyszwnio polysaccharide vaccine, 23 valentPatricia Alessandra HEAD TRACK COACH Work Phone: [phone] [address]Nhrzyxqbbk83-43-5945fahprskti, high dose seasonal, preservative-freePabeverleyia Alessandra HEAD TRACK COACH Work Phone: [phone] [place], [place] [address]Equtoxwpog39-34-9108obtvpqdgz virus vaccine, whole virusTamara Aparicio HEAD TRACK COACH Work Phone: [phone] [place], [place] [address]Myfqcnlcpt10-22-4687mvnccvgnm, injectable, quadrivalent, preservative freeJose Luisia Alessandra HEAD TRACK COACH Work Phone: [phone] [place], [place] [address]Ikcvddaffq45-21-9529pauzjqemzaev conjugate vaccine, 13 valentPabeverleyia Alessandra HEAD TRACK COACH Work Phone: [facility] HospitalWjoapytltq38-72-0713soepdgivp virus vaccine, whole virusJose Luisia Alessandra HEAD TRACK COACH Work Phone: [phone] [place], [place] [address]Fdbvlgibwp08-04-0931krfzkfepecch Conjugate, unspecified formulationPabeverleyia Alessandra HEAD TRACK COACH Work Phone: [facility] HospitalUwedtnmldl48-67-1107gffdzrpl influenza, intradermal, preservative freeJose Luisia Alessandra HEAD TRACK COACH Work Phone: [facility] HospitalZcfwkayxnt27-60-1641oblwfspsobob polysaccharide vaccine, 23 valentPabeverleyia Magyburg HEAD TRACK COACH Work Phone: [phone] [place] [address] Payers DatePayer CategoryPayerPolicy [id number] 2025Self-pay [id number] MEDICARE ADVANTAGE [facility] MEDICARE ADVANTAGE [id number] 2017-Present [address] [place] [address] [id number] 2018Medicare (Managed Care)[facility] MEDICARE ADVANTAGE [id number] [id number] 2..1.776393.3.57[id number] 2.1.519362.3.57[id number] 2..1.739432.3.579.[id number] 2..1.931710.3.57[id number] 2..1.731422.3.579.2.29760-43-7241Pcxjapn0899658 2..1.449828.3.57[id number] 2.16840.1.423107.3.57[id number] 2.840.1.395263.3.57[id number] 2.16840.1.862745.3.57[id number] 2.0.1.338526.3.579.[id number] 2.0.1.332541.3.579.[id number] 2.0.1.597318.3.57[id number] 2.0.1.544173.3.57[id number] 2.0.1.870558.3.579.2.70709-19-3590Bkwvimz100326926 2.0.1.496023.3.579.2.15247-30-6458Hodurbf997560383 2.840.1.912871.3.579.2.19574-57-3099Hxkccvz250032768 2.0.1.601561.3.579.2.66742-49-8080Gcdfmte726036969 2.840.1.812643.3.579.2.68566-81-5297Puhqdrc921279625 2.840.1.381299.3.579.2.671803-33-8824Jskpygk367628197 2.840.1.338858.3.579.2.789597-88-5167Dbsozam11203174 2.16.840.1.299881.3.57[id number] 2.16.840.1.365615.3.579.2.785471-41-0762Pduhpuc11742160 2.16.840.1.562896.3.579.2.751791-85-7439Erwasxz6887990 2.16.840.1.256161.3.579.2.826794-73-7074Fgromeb9290690 2.16.840.1.167258.3.579.2.991383-51-0295Skxrfea1127005 2.16.840.1.366765.3.579.2.5153Fzcotya23111722 2..840.1.704311.3.579.2.531 Social History DateTypeDetailFacilityStart: 09-17-2022 End: 61-91-3740Fngsjlo smoking status NHISNever smoked tobaccoNOMO Healthcare Start: 42-13-8752Ruffefl use and exposureSmokeless tobacco non-userNOMO HealthcareStart: 04-18-2023 End: 72-43-0173Tnvmzei intakeCurrent drinker of alcohol (finding)[facility] Healthcare Start: 04-18-2023 End: 41-86-1397Gcxozij intakeNOMO HealthcareStart: 04-18-2023 End: 83-79-0147Xcqxlpf use panelNOMO HealthcareStart: 73-37-0752Oqdypbq Comment Caffeine intake: 1-2 cups per dayNOMS HealthcareStart: 84-87-7073Rdo Assigned At BirthNot on fileNOMS HealthcareHow often to you have a drink containing alcohol?4 or more times a weekNOMS HealthcareHow many standard drinks containing alcohol do you have on a typical day?1 or 2NOMS HealthcareHow often do you have 6 or more drinks on 1 occasion?NeverNOMS HealthcareSexFemale (finding)[facility] Hospitaltart: 44-09-3730Wii Assigned At [facility] Hospitaltart: 87-84-5548GouOmuwlhFPQY Healthcare Goals DatePatient GoalDesired Activity/State Functional Status IhnkScjgcnjmrsSdkrppVmxfpfhv46-83-9814Dmlxekktsj statusPatient at Baseline [facility] Work Phone: Mental Status WotbBsdwgisajeOusrciKjjxuxap84-93-0905Nkxyfqipy functionCognitive Status [facility]Henry [facility] Work Phone: Clinical Notes 02-01-2020 to 12-18-2024 Note Date & ZkqaEzkzCjutivjs72-61-2675 Telephone encounter Note* Telephone Encounter - Yasmin Suresh - 12/18/2024 12:50 PM EDT Please order mamm for pt [facility] HospitalFlzqfvdrrq11-45-3155 Miscellaneous Notes* Telephone Encounter - Yasmin Suresh - 12/18/2024 12:50 PM EDT Please order mamm for pt documented in this encounterHarry S. [facility]' HospitalZbycddhenk58-72-6883 NoteUT Cardiology - [facility] Carlin Barraza is a 79 y.o. year old female patient being seen for a follow up Echo and labs. Patient complains of MALDONADO. Patient denies any cardiac complaints at this time. Problem List[1] Family History[2] Social History[3] DOMINGO Garcia is seen in follow-up. This is the first time I am meeting her. She was recently evaluated in November 2024 in our clinic as a new patient by ANNAMARIA Gilmore. Her prior history includes COPD, hypertension, hyperlipidemia and valvular disease as well as chronic kidney disease stage IIIb. Today she reports that she has been doing well except she has some shortness of breath on exertion NYHA class II symptoms. She does not like that she is taking a lot of pills. She wants to cut back. Her blood pressure today is elevated but she reports that usually her blood pressure is well-controlled. She has no leg swelling. She does not feel chest pain or palpitations. Her recent Holter monitor showed PVCs with a burden of 23%. Review of Systems Cardiovascular: Positive for dyspnea on exertion. Respiratory: Positive for shortness of breath. Objective Visit Vitals BP 170/82 (BP Location: Left arm, Patient Position: Sitting) Pulse 60 Ht 1.473 m (4' 10 ) Wt 46.3 kg (102 lb) SpO2 97% BMI 21.32 kg/m??? Smoking Status Never BSA 1.38 m??? Physical Exam Constitutional: Appearance: She is well-developed. She is not ill-appearing. HENT: Head: Normocephalic and atraumatic. Nose: Nose normal. Eyes: General: No scleral icterus. Pupils: Pupils are equal, round, and reactive to light. Neck: Thyroid: No thyromegaly. Vascular: No JVD. Cardiovascular: Rate and Rhythm: Normal rate and regular rhythm. Pulses: Radial pulses are 2+ on the right side and 2+ on the left side. Heart sounds: Murmur heard. Systolic (RUSB, apex) murmur is present with a grade of 3/6. No friction rub. No gallop. Pulmonary: Effort: Pulmonary effort is normal. No respiratory distress. Breath sounds: Normal breath sounds. No wheezing or rales. Chest: Chest wall: No tenderness. Abdominal: General: Bowel sounds are normal. There is no distension. Palpations: Abdomen is soft. Tenderness: There is no abdominal tenderness. Musculoskeletal: General: No swelling. Cervical back: Neck supple. Skin: General: Skin is warm and dry. Neurological: General: No focal deficit present. Mental Status: She is alert and oriented to person, place, and time. Psychiatric: Mood and Affect: Mood normal. Behavior: Behavior is cooperative. Judgment: Judgment normal. Allergies Allergies[4] Medications Current Medications[5] Recent Labs Blood testing 12/03/2024: Potassium 4.2, BUN 23, creatinine 1.24, eGFR 42. BNP 11/23/2024: 1696. Blood testing 10/07/2024: Hemoglobin 9.6, platelets 177, BUN 20, creatinine 1.1, eGFR 50.8. Imaging and other tests Holter monitor 11/15/2024 - 11/22/2024: Sinus rhythm with frequent PVCs [23%] and occasional PACs [less than 1%]. ECHO from [facility] 11/01/2024 Left Ventricle: Left [...] evidence of tricuspid valve stenosis. The right (more content not included)... [facility]09-22-2025 Telephone encounter Note* Telephone Encounter - Steffany Baltazar - 12/03/2024 11:08 AM EDT error [facility] HospitalMpiieeyysn10-06-0700 Miscellaneous Notes* Telephone Encounter - Steffany Baltazar - 12/03/2024 11:08 AM EDT error documented in this encounterHarry S. Truman [facility]' HospitalBchjhjtjgn76-18-4247 NoteCard[facility]ovascular Medicine [facility] SUBJECTIVE Chief Complaint Patient presents with New [...] There is moderate pulmonary (more content not included)...[facility]09-04-2025 NoteNew patient here to establish care. Self ref for MALDONADO with stairs and murmur per daughter. Had echo at [facility] a few weeks ago, and EKG in September 2024. Had recent cholecystectomy. Had lipid panel in September and PCP started her on statin. She declined to start.[facility]08-22-2025 History of Present illness Narrative* Shahriar Warren, DO - 11/02/2024 9:30 AM EDT Images from the original note were not included. Radha Luis Pachceoerick 1945 Radha Luis Barraza is a 79 y.o. female presents for 4th pow lap barron HPI: HPI Patient says she is doing great. Thank you for coming in on Tuesday and saving my life. Shehas not having any nausea or vomiting. She [...] I can see her again on an as- needed basis otherwise she is discharged from my care. No follow-ups on file. documented in this encounterHarry S. Truman Memorial Veterans' HospitalIulkjenfqd73-23-8492 History of Present illness Narrative* Shahriar Warren DO - 10/10/2024 11:15 AM EDT Images from the original note [...] She does have some pain near the umbilicalincision towards the right. She is eating and [...] PCL 10/09/2024 15:18 Attached To: GENERAL PATHOLOGY [[id number]] Orders Only on 10/09/24 with Shahriar Warren DO Source Information Paulina [facility] Document History ASSESSMENT AND PLAN: Assessment/Plan Diagnoses and all orders for this visit: Acute cholecystitis Status post laparoscopic cholecystectomy secondary to acute gangrenous cholecystitis. I removed theJP drain. We discussed continued activity restrictions, incision care, drain site care, pathology report. I discussed with her and her baswueuj-go-spz. Not unexpected to have some soreness near the um bilical incision that was the extraction site from the gallbladder. I will see her again in 3 weeks No follow-ups on file. documented in this encounterHarry S. Truman Memorial Veterans' HospitalNyxaockofm06-70-9820 Progress note Author Shahriar Warren [facility]Note Date/TimeJuly 2024 11:33[place] [id number] General Surgery Progress Note Signed Patient: Radha Barraza MR#: [id number] 803 : 1945 Acct:[id number] Age/Sex: 79 / F Adm Date: 5 Loc: 4N Room: 5W0633-5 Type: ADM IN Attending Dr: Chema Gupta [...] Ringers) 1,000 mls @ 75 mls/hr IV .[id number] [facility] Stop: 10/06/25 04:44 Last [...] 50 Mg Tablet) 100 mg PO DAILY MARCIA Stop: 10/07/25 08:59 [...] % (Auto) 84.8, Lymph % (Auto) 9.4, Van Zandt % (Auto) 4.2, Eos % (Auto) 1.3, Baso % (Auto) 0.3, Nucleat RBC Rel Count 0.0, Neut # (Auto) 7.2, Lymph # (Auto) 0.8 L, Van Zandt # (Auto) 0.4, Eos # (Auto) 0.1, [...] % (Auto) 89.1, Lymph % (Auto) 6.6, Van Zandt % (Auto) 3.9, Eos % (Auto) 0.2, Baso % (Auto) 0.2, Nucleat RBC Rel Count 0.0, Neut # (Auto) 9.9 H, Lymph # (Auto) 0.7 L, Van Zandt # (Auto) 0.4, Eos # (Auto) 0.0, [...] signed by DO Shahriar Warren> 10/07/24 1133 [facility] Work Phone: 1(504) 659-834507-27-2025 [place] [address] General Surgery Progress Note Signed Patient: Radha Barraza MR#: [id number] 803 : 1945 Acct:[id number] Age/Sex: 79 / F Adm Date: 5 Loc: Room: [address] [place] [address] Type: ADM IN Attending Dr: Chema Gupta [...] Ringers) 1,000 mls @ 75 mls/hr IV .[id number] [facility] Stop: 10/06/25 04:44 Last [...] % (Auto) 84.8, Lymph % (Auto) 9.4, Van Zandt % (Auto) 4.2, Eos % (Auto) 1.3, Baso % (Auto) 0.3, Nucleat RBC Rel Count 0.0, Neut # (Auto) 7.2, Lymph # (Auto) 0.8 L, Van Zandt # (Auto) 0.4, Eos # (Auto) 0.1, [...] % (Auto) 89.1, Lymph % (Auto) 6.6, Van Zandt % (Auto) 3.9, Eos % (Auto) 0.2, Baso % (Auto) 0.2, Nucleat RBC Rel Count 0.0, Neut # (Auto) 9.9 H, Lymph # (Auto) 0.7 L, Van Zandt # (Auto) 0.4, Eos # (Auto) 0.0, [...] drain care.. Documented By: Shahriar Warren DO 10/07/241130 Signed By: 10/07/[address] [facility]07-26-2025 Progress note Author Chema Gupta [facility] HospitalNote Date/TimeJuly 2024 3:14[place] [address] Hospitalist Progress Note Signed Patient: Radha Barraza MR#: [id number] 803 : 1945 Acct:[id number] Age/Sex: 79 / F Adm Date: 5 Loc: N Room: [address] [place] [address] Type: ADM IN Attending Dr: Chema Gupta DO Copies to: ~ Date of Service: 10/06/2024 Subjective Subjective Narrative: Patient is an 79-year-old female with medical history as listed below who presented to [facility] due to abdominal pain. Patient was seen earlier yesterday morning for back pain and was treated with Ryan and reports that helped with her pain however she kept having abdominal pain for which she returnto ER later yesterday and was evaluated. Reported right upper quadrant pain, worsening with inspiration, denies any nausea or vomiting or diarrhea. Denies fevers or chills at home. 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 One of them is a retired ER physician from [facility] [facility], and one of them is another physician from [employer] [facility]. The patient has just finished working with [...] Lactated Ringers IV 10/06/25 04:44 75 mls/hr .[id number] MARCIA Administration Ertapenem 0.5 gm/ Sodium 100 mls @ 200 mls/hr 10/07/24 02:00 Chloride IV 10/07/25 01:59 Q24H [facility] Lactated Ringer's 1,000 mls @ 20 mls/hr 10/06/24 09:00 10/06/24 10:56 Lactated Ringers IV 10/07/24 08:59 20 mls/hr .Q24H ONE Administration Lidocaine HCl 0.1 ml 10/06/24 08:18 Lidocaine 1% 50 Ml Vial INTRADERMA PREOP PRN Venipuncture x 1 Dose Losartan Potassium 100 mg 10/07/24 09:00 Losartan 50 Mg Tablet PO 10/07/25 08:59 DAILY [facility] Ondansetron HCl 4 mg 10/06/24 11:24 Ondansetron 4 Mg/2 Ml Vial IV-PUSH 10/06/25 11:23 Q6H PRN Nausea And Vomiting Prochlorperazine Edisylate 5 mg 10/06/24 04:34 Prochlorperazine Edisylate 10 Mg/2 Ml Vial IV-PUSH 10/06/25 04:33 Q4H PRN Nausea And Vomiting Sodium Chloride 10 ml 10/06/24 09:00 10/06/24 13:50 Sodium Chloride 0.9 % 10 Ml Vial.Pf INJECTION 10/06/25 08:59 Not Given Q12HR [facility] Sodium Chloride 0 ml 10/06/24 08:18 [...] signed by Chema Gupta DO> 10/06/24 1514 [facility] Work Phone: 1(783) 793-280907-26-2025 [place] [address] Hospitalist Progress Note Signed Patient: Radha Barraza MR#: [id number] 803 : 1945 Acct:[id number] Age/Sex: 79 / F Adm Date: 5 Loc: Room: [address] [place] [address] Type: ADM IN Attending Dr: Chema Gupta DO Copies to: ~ Date of Service: 10/06/2024 Subjective Subjective Narrative: Patient is an 79-year-old female with medical history as listed below who presented to [facility] due to abdominal pain. Patient was seen earlier yesterday morning for back pain and was treated with Ryan and reports that helped with her pain however she kept having abdominal pain for which she returnto ER later yesterday and was evaluated. Reported right upper quadrant pain, worsening with inspiration, denies any nausea or vomiting or diarrhea. Denies fevers or chills at home. 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 One of them is a retired ER physician from [facility] [facility], and one of them is another physician from [employer] [facility]. The patient has just finished working with [...] Lactated Ringers IV 10/06/25 04:44 75 mls/hr .[id number] MARCIA Administration Ertapenem 0.5 gm/ Sodium 100 [...] Vial.Pf INJECTION 10/06/25 08:59 Not Given Q12HR [facility] Sodium Chloride 0 ml 10/06/24 08:18 [...] Chema Gupta, 1509 Signed By: 10/06/[address] [facility]07-26-2025 Consult note Author Shahriar Warren [facility] HospitalNote Date/TimeJuly 2024 8:11[place] [id number] General Surgery Consult Note Signed Patient: Radha Barraza MR#: [id number] 803 : 1945 Acct:[id number] Age/Sex: 79 / F Adm Date: 5 Loc: Room: [address] [place] [address] Type: ADM IN Attending Dr: Chema Gupta DO Copies to: MD Chema Dumont DO Paul C Laffay, DO~ History of Present Illness Date of consult: 10/06/2024 Requesting/Attending Provider: Chema Gupta DO History of present illness: Patient went to [facility] emergency department on night with severe backpain. [...] negative unless noted below or in HPI [facility] Medical History Heart murmur Osteoarthritis Surgical History [...] Ringers) 1,000 mls @ 75 mls/hr IV .[id number] [facility] Stop: 10/06/25 04:44 Last [...] % (Auto) 89.1, Lymph % (Auto) 6.6, Van Zandt % (Auto) 3.9, Eos % (Auto) 0.2, Baso % (Auto) 0.2, Nucleat RBC Rel Count 0.0, Neut # (Auto) 9.9 H, Lymph # (Auto) 0.7 L, Van Zandt # (Auto) 0.4, Eos # (Auto) 0.0, [...] signed by DO Shahriar Warren> 10/06/24 0811 [facility] Work Phone: 1(214) 440-196407-26-2025 [place] [address] General Surgery Consult Note Signed Patient: Radha Barraza MR#: [id number] 803 : 1945 Acct:[id number] Age/Sex: 79 / F Adm Date: 5 Loc: Room: [address] [place] [address] Type: ADM IN Attending Dr: Chema Gupta DO Copies to: MD Chema Dumont DO Paul C Laffay, DO~ History of Present Illness Date of consult: 10/06/2024 Requesting/Attending Provider: Chema Gupta DO History of present illness: Patient went to [facility] emergency department on night with severe backpain. [...] negative unless noted below or in HPI [facility] Medical History Heart murmur Osteoarthritis Surgical History [...] Ringers) 1,000 mls @ 75 mls/hr IV .[id number] [facility] Stop: 10/06/25 04:44 Last [...] % (Auto) 89.1, Lymph % (Auto) 6.6, Van Zandt % (Auto) 3.9, Eos % (Auto) 0.2, Baso % (Auto) 0.2, Nucleat RBC Rel Count 0.0, Neut # (Auto) 9.9 H, Lymph # (Auto) 0.7 L, Van Zandt # (Auto) 0.4, Eos # (Auto) 0.0, [...] DO 10/06/24 0803 Signed By: 10/06/[address] [facility]07-26-2025 History and physical note Author Kimberly Sanchez [facility] HospitalNote Date/TimeJuly 2024 5:53[place] [address] Hospitalist H&P Signed Patient: Radha Barraza MR#: [id number] 803 : 1945 Acct:[id number] Age/Sex: 79 / F Adm Date: 5 Loc: Room: [address] [place] [address] Type: ADM IN Attending Dr: Kimberly Sanchez MD Copies to: MD Kimberly Dumont MD~ HPI DATE OF EXAMINATION: 10/06/24 CHIEF COMPLAINT: Abd pain HISTORY OF PRESENT ILLNESS: Patient is an 79-year-old female with medical history as listed below who presented to [facility] due to abdominal pain. Patient was seen earlier yesterday morning for back pain and was treated with Ryan and reports that helped with her pain however she kept having abdominal pain for which she returnto ER later yesterday and was evaluated. Reported right upper quadrant pain, worsening with inspiration, denies any nausea or vomiting or diarrhea. Denies fevers or chills at home. CT scan at [facility] showed distended gallbladder with mild gallbladder [...] negative unless noted below or in HPI [facility] Medical History Heart murmur Osteoarthritis Surgical History [...] here 100.3F, had leukocytosis around 12 at [facility] -CT AP done and reviewed, showed distended [...] <Electronically signed by Kimberly Sanchez MD> 10/06/24 9050 [facility] Work Phone: 1(910) 409-909107-26-2025 Evaluation note* Diagnosis Onset Date Resolution Status Admit Date Acute cholecystitis acuteJuly 2024 4:05amAcute gangrenous cholecystitisacuteJuly 2024 4:05amHeart murmuracuteJuly 2024 4:05amIntractable right upper quadrant abdominal painacuteJuly 2024 4:05amLeukocytosisacuteJuly 2024 4:05am [facility] Work Phone: 1(344) 982-915207-26-2025 History and physical [place] [id number] Hospitalist H&P Signed Patient: Radha Barraza MR#: [id number] 803 : 1945 Acct:[id number] Age/Sex: 79 / F Adm Date: 5 Loc: Room: [address] [place] [address] Type: ADM IN Attending Dr: Kimberly Sanchez MD Copies to: MD Kimberly Dumont MD~ HPI DATE OF EXAMINATION: 10/06/24 CHIEF COMPLAINT: Abd pain HISTORY OF PRESENT ILLNESS: Patient is an 79-year-old female with medical history as listed below who presented to [facility] due to abdominal pain. Patient was seen earlier yesterday morning for back pain and was treated with Ryan and reports that helped with her pain however she kept having abdominal pain for which she returnto ER later yesterday and was evaluated. Reported right upper quadrant pain, worsening with inspiration, denies any nausea or vomiting or diarrhea. Denies fevers or chills at home. CT scan at [facility] showed distended gallbladder with mild gallbladder [...] negative unless noted below or in HPI [facility] Medical History Heart murmur Osteoarthritis Surgical History [...] here 100.3F, had leukocytosis around 12 at [facility] -CT AP done and reviewed, showed distended [...] 10/06/24 04 38 Signed By: 10/06/[address] [facility]07-21-2025 Telephone encounter Note* Telephone Encounter - Shari Olmos MA - 10/01/2024 12:45 PM EDT [facility] faxing over the EKG. [facility] HospitalDpfmrfgxlq97-41-2155 Telephone encounter Note* Telephone Encounter - Shari [...] 9:07 AM EDT To: China Ortiz NP [facility] HospitalSxzmxrpcsq31-87-5934 Miscellaneous Notes* Telephone Encounter - Shari Olmos [...] as well ----- Message ----- From: [facility] Results In Sent: 09/27/2024 9:07 AM [...] symptoms as well ----- Message ----- From: [facility] Results In Sent: 09/27/2024 9:07 [...] symptoms as well ----- Message ----- From: [facility], [facility] Results In Sent: 09/27/2024 9:07 AM EDT To: China Ortiz NP documented in this encounterHarry S. [facility]' HospitalXpckvuokyt80-17-1162 Telephone encounter Note* Telephone Encounter - Shari [...] symptoms as well ----- Message ----- From: [facility], [facility] Results In Sent: 09/27/2024 9:07 AM EDT To: China Ortiz NP [facility] HospitalEwmhlghcin17-53-9366 Telephone encounter Note* Telephone Encounter - Shari Olmos MA - 10/01/2024 12:37 PM EDT She did get the EKG done the next morning. ( Ill call them to get report)And she is agreeable to the echo if you place the order thank you! [facility] HospitalVzozmbbvhm24-83-7489 Telephone encounter Note* Telephone Encounter - Shari [...] symptoms as well ----- Message ----- From: [facility] Results In Sent: 09/27/2024 9:07 AM EDT To: China Ortiz NP [facility] HospitalTjyzjbswzv15-83-7001 History of Present illness Narrative* China Ortiz NP - 09/26/2024 2:00 PM EDTAssociated Problem(s): Stage 3b chronic kidney disease ([facility]) Orders: Comprehensive metabolic panel; Future -check renal [...] is not under the care of a loft worker head and does notrecall undergoing an echocardiogram last [...] bronchitis. Refuses wellness today documented in this encounterHarry S. Truman [facility]' HospitalQiwbdfonff85-67-8893 History of Present illness Narrative* China Ortiz [...] PRN atorvastatin (LIPITOR) 20 mg, Oral, Daily fkvlzpkysm-qnmkbrnkivszo-kdgxklne 50-325-40 MG tablet 1 tablet, Every 4 [...] nebulizer treatments as prescribed. documented in this encounterHarry S. Truman [facility]' HospitalNohaiepjcd09-38-6916 Telephone encounter Note* Telephone Encounter - Yasmin Templetoning - 04/23/2024 3:36 PM EST Pt needs a confirmation of 3 mos supply sent to [facility] Fluticasone-salmeterol 250-50 mcg/act aerosol powder [facility] HospitalPfpjwvglkr61-48-7879 Miscellaneous Notes* Telephone Encounter - Yasmin Suresh - 04/23/2024 3:36 PM EST Pt needs a confirmation of 3 mos supply sent to [facility] Fluticasone-salmeterol 250-50 mcg/act aerosol powder documented in this encounterHarry S. Truman [facility] Veterans' HospitalBdxjhrdayq75-81-8405 History of Present illness Narrative* Roger Vasquez, CONSTANZA - 01/24/2024 1:00 PM EST Images from [...] once daily, Disp: 90 tablet, Rfl: 0 prnkknqqmi-hpwohklqkkgvl-jabwmlpf 50-325-40 MG tablet, Take 1 tablet by [...] understanding. Roger Vasquez DPM documented in this [facility]11-12-2024 Instructions* Patient Instructions* Roger Vasquez DPM - 01/24/2024 1:00 PM EST As noted documented in this [facility]10-10-2024 Telephone encounter Note* Telephone Encounter - Naila Orellana MD - 12/22/2023 12:30 PM EDT Approvals with refills [facility] HospitalLwmgjljdnh97-14-2998 Miscellaneous Notes* Telephone Encounter - Naila Orellana MD - 12/22/2023 12:30 PM EDT Approvals with refills documented in this [facility]10-01-2024 Telephone encounter Note* Telephone Encounter - Olga Lidia Saucedo - 12/13/2023 10:35 AM EDT Patient called and would like an order for a mammogram sent over. Last one on 12/20/2022. Thank you [facility] HospitalKcwazlgyhw42-10-0304 Miscellaneous Notes* Telephone Encounter - Olga Lidia Saucedo - 12/13/2023 10:35 AM EDT Patient called and would like an order for a mammogram sent over. Last one on 12/20/2022. Thank you documented in this [facility]09-05-2024 Telephone encounter Note* Telephone Encounter - Shari Mckeon MD - 11/17/2023 4:48 PM EDT Refills sent. [facility] HospitalSdueagkokj57-70-2931 Miscellaneous Notes* Telephone Encounter - Shari Mckeon MD - 11/17/2023 4:48 PM EDT Refills sent. documented in this [facility]02-14-2024 Telephone encounter Note* Telephone Encounter - Pati Valentino - 04/27/2023 1:09 PM EST Called pt and informed [facility] HospitalGucbgjjayv48-95-3525 Miscellaneous Notes* Telephone Encounter - Pati Valentino - 04/27/2023 1:09 PM EST Called pt and informed * Telephone Encounter - Pati Valentino - 04/27/2023 12:51 PM EST Pt called stated she had LT TSA 07/26/22 and is getting a cavity filled and needs antibiotic called into [facility] in [place]. Allergies: NKDA . Her call back [phone] documented in this encounterHarry S. [facility]' HospitalFaxthvgiwb26-67-3023 Telephone encounter Note* Telephone Encounter - Pati Chicho - 04/27/2023 12:51 PM EST Pt called stated she had LT TSA 07/26/22 and is getting a cavity filled and needs antibiotic called into [facility] in [place]. Allergies: NKDA . Her call back [phone] [facility] Ocphkwuezq45-00-9764 Telephone encounter Note* Telephone Encounter - Shari Mckeon MD - 04/21/2023 7:05 PM EST Refills sent. [facility] Bpuwscqvee08-52-6044 Miscellaneous Notes* Telephone Encounter - Shari Mckeon MD - 04/21/2023 7:05 PM EST Refills sent. documented in this encounterHarry S. Truman [facility]' HospitalTrdeokrwto25-55-1317 Note [id number] Clinic [facility]05-15-2023 [facility] SURGERY Clinical Discharge Summary PERSON INFORMATION Name RADHA BARRAZA Age 77 Years 1945 Sex FEMALE Language [place] PCP SHARI MCKEON Marital Status Med Service Ambulatory Surgery Acct# Arrival 07/26/2022 05:52:10 Visit Reason SURGERY - LEFT REVERSE TOTAL SHOULDER - ARTHREX Acuity LOS 05 02:57 Address: [address] [place] [address] [place] [address] Comment: PROVIDER INFORMATION VITALS INFORMATION Vital Sign [...] DEPART REASON INCOMPLETE INFORMATION (more content not included)...[facility]Tjcswtmi45-03-2542 NoteOPERATIVE NOTE OPERATION DATE: 02/01/2020 PREOPERATIVE DIAGNOSIS: [...] position. She was sedated by the nurse needle polisher. Bite block was placed in her mouth. [...] patient tolerated the procedure without any difficulties. [facility] SIGNED AND APPROVED BY: DR CARLOS EDUARDO MENENDEZ . 02/07/2020 09:15:00[facility] note* Diagnosis Essential hypertension (CMS/HCC) Unspecified essential hypertension documented in this encounter [facility] HealthcareEvaluation note* Diagnosis S/P reverse total shoulder arthroplasty, left- Primary documented in this encounter [facility] HealthcareEvaluation note* Diagnosis Encounter for screening mammogram for malignant neoplasm of breast- Primary documented in this encounter [facility] HealthcareEvaluation note* Diagnosis Primary insomnia Persistent disorder of initiating or maintaining sleep documented in this encounter [facility] HealthcareEvaluation note* Diagnosis Dermatophytosis of nail- Primary Dystrophic nail Other specified disease of nail Onychocryptosis Ingrowing nail Pain of left great toe documented in this encounter [facility] HealthcareEvaluation note* Diagnosis Mild intermittent asthma, unspecified whether complicated (CMS/HCC) documented in this encounter [facility] HealthcareEvaluation note* Diagnosis Essential hypertension ([facility]) Unspecified essential hypertension documented in this encounter [facility]* Diagnosis Mild intermittent asthma, unspecified whether complicated ([facility]) documented in this encounter [facility]* Diagnosis Chronic obstructive pulmonary disease with acute exacerbation ([facility])- Primary documented in this encounter [facility]* Diagnosis Primary hypertension- Primary Unspecified essential hypertension Stage 3b chronic kidney disease ([facility]) Pure hypercholesterolemia Pure hypercholesterolemia Irregular heart beat Unspecified cardiac dysrhythmia Shortness of breath Chronic obstructive pulmonary disease, unspecified COPD type (HCC) Moderate aortic regurgitation documented in this encounter [facility]* Diagnosis Primary hypertension- Primary Unspecified essential hypertension Stage 3b chronic kidney disease ([facility]) Pure hypercholesterolemia Pure hypercholesterolemia Irregular heart beat Unspecified cardiac dysrhythmia Shortness of breath Chronic obstructive pulmonary disease, unspecified COPD type (HCC) Moderate aortic regurgitation Moderate aortic regurgitation- Primary Mild aortic stenosis Aortic valve disorders SOB (shortness of breath) Shortness of breath documented in this encounter [facility] HealthcareEvaluation note* Diagnosis Primary hypertension- Primary Unspecified essential hypertension Stage 3b chronic kidney disease ([facility]) Pure hypercholesterolemia Pure hypercholesterolemia Irregular heart beat Unspecified cardiac dysrhythmia Shortness of breath Chronic obstructive pulmonary disease, unspecified COPD type (HCC) Moderate aortic regurgitation PVC (premature ventricular contraction) Other premature beats Acute cholecystitis- Primary documented in this encounter [facility] HealthcareEvaluation note* Diagnosis Primary hypertension- Primary Unspecified essential hypertension Stage 3b chronic kidney disease ([facility]) Pure hypercholesterolemia Pure hypercholesterolemia Irregular heart beat Unspecified cardiac dysrhythmia Shortness of breath Chronic obstructive pulmonary disease, unspecified COPD type (HCC) Moderate aortic regurgitation PVC (premature ventricular contraction) Other premature beats Acute cholecystitis- Primary documented in this encounter [facility] Discharge instructions Additional Instructions [...] appointment on Tuesday or for drain removal. [facility] Work Phone: Summary Purpose Family History No Family History Records Found Relationship Condition Age at Onset Recorded Date/T alana father Unknown motherDeceasedUnknown Advance Directives No Advanced Directives Records Found [...] and content) DATE CREATED AUTHOR 05/27/2018 [facility] DATE CREATED AUTHOR AUTHOR'S ORGANIZ ATION 11/06/2020 [facility] DATE CREATED AUTHOR AUTHOR'S ORGANIZ ATION 05/12/2022 [facility] DATE CREATED AUTHOR AUTHOR'S ORGANIZ ATION 07/28/2022 [facility] DATE CREATED AUTHOR AUTHOR'S ORGANIZ ATION 03/05/2024 [facility] DATE CREATED AUTHOR AUTHOR'S ORGANIZ ATION 10/23/2024 [facility] DATE CREATED AUTHOR AUTHOR'S ORGANIZ ATION 11/02/2024 [facility] DATE CREATED AUTHOR AUTHOR'S ORGANIZ ATION 11/04/2024 [facility] DATE CREATED AUTHOR AUTHOR'S ORGANIZ ATION 12/29/2024 [facility] Reason for Visit (unrecogniz ed section and content) ReasonCommentsMed RefillReasonOnset MidcFklzitgsrrebgoq29/14/2024ReasonComments Ingrown ToenailPt is here today for an ingrown nail Lt medial side hallux, she states it is not as painful as it was when she made this appt. Only painful with closed toe shoes. She did not try anything to help with discomfortSS: 6Reason CommentsCoughReasonCommentsShortness of WsbekwDlcjrsQszutdlt3vl po lap barron IP PnpitmGcdisxfk2xv pow lap barron Care Teams (unrecognized sec tion and content) Team MemberRelationshipSpecialtyStart DateEnd Date Tamara Aparicio NP [address] [place] [address] PCP - Cristobal FIGUEROA03/21/21 Shari Mckeon MD [address] [place] [address] PCP - GeneralFamily Medicine07/26/22Team MemberRelationshipSpecialtyStart DateEnd Date Tamara Aparicio NP [address] [place] [address] PCP - Cristobal FIGUEROA03/21/21 Shari Mckeon MD [address] [place] [address] PCP - Generalmily Medicine07/26/22Team MemberRelationshipSpecialtyStart DateEnd Date Tamara Aparicio NP [address] [place] [address] PCP - Cristobal FIGUEROA03/21/21 Shari Mckeon MD [address] [place] [address] PCP - GeneralFamily Medicine07/26/22Te MemberRelationshipSpecialtyStart DateEnd Date Tamara Aparicio NP [address] [place] [address] PCP - Cristobal FIGUEROA03/21/21 Shari Mckeon MD [address] [place] [address] PCP - Generalmily Medicine07/26/22Te MemberRelationshipSpecialtyStart DateEnd Date Tamara Aparicio HEAD TR[employer] COACH [address] [place] [address] PCP - Cristobal FIGUEROA03/21/21 Shari Mckeon MD [address] [place] [address] PCP - Generalmily Medicine07/26/22Te MemberRelationshipSpecialtyStart DateEnd Date Tamara Aparicio HEAD TRACK COACH [address] [place] [address] PCP - Cristobal FIGUEROA03/21/21 Shari Mckeon MD [address] [place] [address] PCP - GeneralFamily Medicine07/26/22Team MemberRelationshipSpecialtyStart DateEnd Date Tamara Aparicio NP [address] [place] [address] PCP - Cristobal FIGUEROA03/21/21 Shari Mckeon MD [address] [place] [address] PCP - GeneralFamily Medicine07/26/22Team MemberRelationshipSpecialtyStart DateEnd Date Tamara Aparicio NP [address] [place] [address] PCP - Cristobal FIGUEROA03/21/21 Shari Mckeon MD [address] [place] [address] PCP - GeneralFamily Medicine07/26/22Team MemberRelationshipSpecialtyStart DateEnd Date Tamara Aparicio NP [address] [place] [address] PCP - Cristobal FIGUEROA03/21/21 Shari Mckeon MD [address] [place] [address] PCP - GeneralFamily Medicine07/26/22Team MemberRelationshipSpecialtyStart DateEnd Date Shari Mckeon MD [address] [place] [address] PCP - GeneralFamily Medicine07/26/22Team MemberRelationshipSpecialtyStart DateEnd Date Shari Mckeon MD [address] [place] [address] PCP - GeneralFamily Medicine07/26/22Team MemberRelationshipSpecialtyStart DateEnd Date Shari Mckeon MD [address] [place] [address] PCP - GeneralFamily Medicine07/26/22Team MemberRelationshipSpecialtyStart DateEnd Date Shari Mckeon MD [address] [place] [address] PCP - GeneralFamily Medicine07/26/22Team MemberRelationshipSpecialtyStart DateEnd Date Shari Mckeon MD [address] [place] [address] PCP - GeneralFamily Medicine07/26/22Team MemberRelationshipSpecialtyStart DateEnd Date Shari Mckeon MD [address] [place] [address] PCP - GeneralFamily Medicine07/26/22Team MemberRelationshipSpecialtyStart DateEnd Date Shari Mckeon MD [address] [place] [address] PCP - GeneralFamily Medicine07/26/22 Team Status: Active Member Role Status Dates Shari Mckeon MD Primary Care Provide r Active Team Status: Inactive Member Role Status Dates Shari Mckeon MD Primary Care Provide r Active Start: October 06, 2024 End: October 07, 2024Sriram Dye ProviderActiveStart: October 06, 2024 End: October 07, 2024Polileandro Gupta DOAttending ProviderActiveStart: October 06, 2024 End: October 07, 2024Sarahijd Warren DOOther ProviderActiveStart: October 06, 2024 End: October 07, 2024Team MemberRelationshipSpecialtyStart DateEnd Date Shari Mckeon MD [address] [place] [address] PCP - GeneralFamily Medicine07/26/22Team MemberRelationshipSpecialtyStart DateEnd Date Shari Mckeon MD [address] [place] [address] PCP - GeneralFamily Medicine07/26/22Team MemberRelationshipSpecialtyStart DateEnd Date Shari Mckeon MD [address] [place] [address] PCP - GeneralFamily Medicine07/26/22 Anh King LPN Licensed Practical NurseFamily Medicine11/05/24Team MemberRelationshipSpecialty Start DateEnd Date Shari Mckeon MD [address] [place] [address] PCP - GeneralFamily Medicine07/26/22 Anh King LPN Licensed Practical NurseFamily Medicine11/05/24Team MemberRelationshipSpecialty Start DateEnd Date Shari Mckeon MD [address] [place] [address] PCP - GeneralFamily Medicine07/26/22 Anh King LPN [facility]05/24 FOR RECORDS PERTAINING TO PATIENTS WHO ARE [...] ON THE PRIMARY CLINICAL RECORDS. [employer] [facility]. provides no warranty or guarantee of the accuracy or completeness of information in this document.
--- NOTE | 2025-01-01 17:33 | ECG_ITS ---
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 Measurements Intervals [place] Rate: 78 P: 73 AK: 158 QRS: 78 QRSD: 82 T: 68 QT: 388 QTc: 421 Interpretive Statements 1100 Sinus rhythm 1574 with frequent ventricular premature complexes 9140 abnormal rhythm ECG No previous ECG available for comparison Electronically Signed On 01-01-2025 20:02:47 EDT by BENNY SUTHERLAND M.D.
--- NOTE | 2025-01-01 17:34 | ED.ABDPAIN1 ---
HPI - Abdominal Pain General Chief Complaint: Abdominal Pain Stated Complaint: ABDOMINAL PAIN Time Seen by Provider: 01/01/25 17:26 Source: patient Mode of arrival: Wheelchair Limitations: no limitations History of Present Illness HPI narrative: 79 year old female presents to the ED for epigastric pain. Onset was within the past 2-3 hours. It has been intermittent. Denies fever, chills, injury, N/V. Denies CP, SOB. She had an episode of diarrhea this morning; she took 2 imodium. She had a cholecystectomy a few months ago. Related Data Home Medications ?Medication ?Instructions ?Recorded ?Confirmed calcium 600 mg (as 1 tab PO BID 07/11/23 10/06/24 carbonate)-vitamin D3 5 mcg (200 unit) tablet (Calcium 600 + D(3)) losartan 100 mg tablet 100 mg PO DAILY 07/11/23 10/06/24 multivitamin-ferrous 1 tab PO DAILY 07/11/23 10/06/24 fumarate-folic acid 18 mg-400 mcg tablet (Centrum Women) trazodone 50 mg tablet 50 mg PO DAILY 07/11/23 10/06/24 albuterol 90 mcg/actuation aerosol mcg inhalation BID 02/01/24 inhaler metoprolol succinate 25 mg 25 mg PO DAILY 10/05/24 10/06/24 tablet,extended release 24 hr Previous Rx's ?Medication ?Instructions ?Recorded hydrocodone 5 mg-acetaminophen 325 1 tab PO Q6H PRN pain 5 days #15 10/05/24 mg tablet tabs hydrocodone 5 mg-acetaminophen 325 1 tab PO BID PRN pain #60 tabs 10/25/24 mg tablet naloxone 4 mg/actuation nasal 4 mg intranasal Q3M PRN opioid 10/25/24 spray (Narcan) overdose #2 ea hydrocodone 5 mg-acetaminophen 325 1 tab PO BID PRN pain #60 tabs 25 mg tablet Allergies Allergy/AdvReac Type Severity Reaction Status Date / Time No Known Drug Allergies Allergy Verified 01/01/25 17:23 Review of Systems ROS Constitutional Denies: fever or chills Cardiovascular Denies: chest pain Respiratory Denies: shortness of breath Gastrointestinal Reports: abdominal pain and diarrhea; Denies: nausea or vomiting Genitourinary Denies: painful urination or urinary frequency Musculoskeletal Denies: back pain Integumentary/Breast Denies: rash Neurological Denies: headache or dizziness PFSH [facility] Medical History Osteoarthritis ?M19.90 - Unspecified osteoarthritis, unspecified site (ICD-10) Heart murmur ?R01.1 - Cardiac murmur, unspecified (ICD-10) Surgical History History of total shoulder replacement ?Z96.619 - Presence of unspecified artificial shoulder joint (ICD-10) History of total knee arthroplasty ?Z96.659 - Presence of unspecified artificial knee joint (ICD-10) History of carpal tunnel release ?Z98.890 - Other specified postprocedural states (ICD-10) Social History Little interest or pleasure in doing things: not at all Feeling down, depressed, or hopeless: not at all Exam Constitutional Vital Signs, click to edit/add: Last Vital Signs Temp 98.1 F 01/01/25 19:08 Pulse 83 01/01/25 21:00 Resp 18 01/01/25 20:34 BP 155/90 H 01/01/25 21:00 Pulse Ox 94 L 01/01/25 21:00 O2 Del Method Room Air 01/01/25 17:23 Common normals: no apparent distress and oriented x3 General appearance: cooperative [facility] Common normals: moist oral mucous membranes Eye Common normals: conjunctivae normal and no scleral icterus Neck & C-Spine Common normals: supple Chest Chest: symmetrical chest wall rise Respiratory Common normals: normal respiratory effort Effort & inspection: able to speak in complete sentences and symmetric chest movement Cardio Common normals: regular rate and regular rhythm GI Common normals: Normal to inspection, nondistended, normoactive bowel sounds present and soft to palpation Palpation: tender Details: epigastric Neuro Common normals: oriented x3 and moves all extremities Sensorium/orientation: awake and alert Speech: speech normal Course Vital Signs Vital signs: Vital Signs Temperature 98.5 F 01/01/25 17:23 Pulse Rate 56 L 01/01/25 17:23 Respiratory Rate 20 01/01/25 17:23 Blood Pressure 162/77 H 01/01/25 17:23 Pulse Oximetry 97 01/01/25 17:23 Oxygen Delivery Method Room Air 01/01/25 17:23 Temperature 98.1 F 01/01/25 19:08 Pulse Rate 83 01/01/25 21:00 Respiratory Rate 18 01/01/25 20:34 Blood Pressure 155/90 H 01/01/25 21:00 Pulse Oximetry 94 L 01/01/25 21:00 Oxygen Delivery Method Room Air 01/01/25 17:23 MDM - Abdominal Pain MDM Narrative Medical decision making narrative: The patient reported improvement in her discomfort here with fentanyl, Pepcid, and Zofran. CT scan showed: Negative acute inflammatory process or bowel obstruction. Dilated common bile duct possibly related to physiologic ectasia from prior cholecystectomy. Similar biliary duct dilatation on prior examination. Please correlate with LFTs. WBC count was unremarkable. Troponin was unremarkable x2. BUN and creatinine were comparable to previous. AST was 67. Findings were discussed. Follow up with pcp for a recheck, further evaluation and treatment. Return to the ED for worsening symptoms. Differential Diagnosis Differential diagnosis: Likely abdominal pain, pancreatitis and small bowel obstruction Medical Records Attestation: I reviewed the patient's medical records. Lab Data Attestation: I reviewed the patient's lab results. Labs: Lab Results 01/01/25 01/01/25 01/01/25 Range/Units 17:40 18:12 20:17 WBC 7.3 (4.0-11.0) 10^3/uL RBC 4.22 (4.20-5.40) 10^6/uL Hgb 13.5 (12.0-16.0) g/dL Hct 40.7 (36.0-48.0) % MCV 96.4 (81.0-99.0) fL MCH 32.0 (26.7-34.0) pg MCHC 33.2 (29.9-35.2) g/dL RDW 12.8 (11.0-15.0) % Plt Count 249 (150-450) 10^3/uL MPV 10.2 (9.5-13.5) fL Neut % (Auto) 61.7 (43.0-75.0) % Lymph % (Auto) 19.1 L (20.5-60.0) % Citrus % (Auto) 10.4 (1.7-12.0) % Eos % (Auto) 8.0 H (0.9-7.0) % Baso % (Auto) 0.5 (0.2-2.0) % Neut # (Auto) 4.5 (1.4-6.5) 10^3/uL Lymph # (Auto) 1.4 (1.2-3.8) 10^3/uL Citrus # (Auto) 0.8 (0.3-0.8) 10^3/uL Eos # (Auto) 0.6 (0.0-0.7) 10^3/uL Baso # (Auto) 0.0 (0.0-0.1) 10^3/uL Abs Immat Gran (auto) 0.02 (0.00-0.03) 10^3/uL Imm/Tot Granulo (auto) 0.3 (0.0-0.5) % Sodium 141 (136-145) mmol/L Potassium 3.7 (3.5-5.1) mmol/L Chloride 103 (98-107) mmol/L Carbon Dioxide 26.9 (21.0-32.0) mmol/L Anion Gap 14.8 BUN 24.0 H (7.0-18.0) mg/dL Creatinine 1.16 H (0.55-1.02) mg/dL Est GFR ( Amer) 54 L (>=60 mL/min/1.73m^2) Est GFR (Non-Af Amer) 45 L (>=60 mL/min/1.73m^2) BUN/Creatinine Ratio 20.7 Glucose 94 (74-106) mg/dL Calcium 9.9 (8.5-10.1) mg/dL Total Bilirubin 0.4 (0.2-1.0) mg/dL AST 67 H (15-37) U/L ALT 40 (14-59) U/L Alkaline Phosphatase 101 (46-116) U/L Troponin I High Sens 7.3 8.8 (4.0-51.3) pg/mL Total Protein 7.5 (6.4-8.2) g/dL Albumin 3.7 (3.4-5.0) g/dL Globulin 3.8 g/dL Albumin/Globulin Ratio 1.0 Lipase 45.0 (16.0-77.0) U/L Urine Color Lt. yellow (YELLOW) Urine Clarity Clear (CLEAR) Urine pH 6.5 (5.0-9.0) Ur Specific [place] 1.015 (1.005-1.025) Urine Protein Negative (NEG/TRACE) mg/dL Urine Glucose (UA) Negative (NEGATIVE) mg/dL Urine Ketones Trace A (NEGATIVE) mg/dL Urine Occult Blood Negative (NEGATIVE) Urine Nitrite Negative (NEGATIVE) Urine Bilirubin Negative (NEGATIVE) Urine Urobilinogen 0.2 (0.2-1.0) EU/dL Ur Leukocyte Esterase Negative (NEGATIVE) Imaging Data CT scan - abdomen: Attestation: I have reviewed the pertinent imaging results. Radiologist's impression: ITS Impressions Abdomen/Pelvis CT 01/01/25 20:11 IMPRESSION: Negative acute inflammatory process or bowel obstruction Dilated common bile duct possibly related to physiologic ectasia from prior cholecystectomy. Similar biliary duct dilatation on prior examination. Please correlate with LFTs. Impression dictated by: Delfin Bourne M.D. 01/01/2025 9:07 PM Dictation Location: [place] [address] Electronically authenticated by: [id number] Y Date: 01/01/2025 21:07 ECG Data Attestation: ?I have reviewed the pertinent ECG results. (EKG was reviewed by the attending physician. It showed sinus rhythm at a rate of 78. No acute ST segment changes. ) Interpretation: Measurements Intervals [place] Rate: 78 P: 73 DC: 158 QRS: 78 QRSD: 82 T: 68 QT: 388 QTc: 421 Interpretive Statements 1100 Sinus rhythm 1574 with frequent ventricular premature complexes 9140 abnormal rhythm ECG No previous ECG available for comparison Discharge Plan Discharge Chief Complaint: Abdominal Pain Clinical Impression: Abdominal pain Patient Disposition: Home, Self-Care Time of Disposition Decision: 21:21 Condition: Good Mode of Transportation: Private Vehicle Prescriptions / Home Meds: No Action metoprolol succinate 25 mg tablet extended release 24 hr 25 mg PO DAILY hydrocodone-acetaminophen 5-325 mg tablet 1 tab PO Q6H PRN (Reason: pain) 5 Days Qty: 15 0RF losartan 100 mg tablet 100 mg PO DAILY Centrum Women 18-400 mg-mcg tablet 1 tab PO DAILY calcium carbonate-vitamin D3 [Calcium 600 + D(3)] 600 mg-5 mcg (200 unit) tablet 1 tab PO BID trazodone 50 mg tablet 50 mg PO DAILY albuterol 90 mcg/actuation aerosol inhalation BID hydrocodone-acetaminophen 5-325 mg tablet 1 tab PO BID PRN (Reason: pain) Qty: 60 0RF naloxone [Narcan] 4 mg/actuation spray,non-aerosol 4 mg intranasal Q3M PRN (Reason: opioid overdose) Qty: 2 0RF Rx Instructions: spray 1 dose into ONE nostril; alternate nostrils w each dose until help arrives hydrocodone-acetaminophen 5-325 mg tablet 1 tab PO BID PRN (Reason: pain) Qty: 60 0RF Rx Instructions: MUST LAST 30 DAYS Print Language: Malay Instructions: Abdominal Pain (ED), Epigastric Pain (ED) Additional Instructions: Return to the ED for worsening symptoms. Referrals: KELLY MCKEON [Primary Care Provider, Family Practice] - 1 week
[2025-01-01 17:59] LABS: Hematocrit 40.7 % (36.0-48.0); Hemoglobin 13.5 g/dL (12.0-16.0); Immature Granulocytes Abs Auto 0.02 10^3/uL (0.00-0.03); Immature Granulocytes Pct Auto 0.3 % (0.0-0.5); Lymphocytes Absolute Auto 1.4 10^3/uL (1.2-3.8); Mean Corpuscular HGB Conc 33.2 g/dL (29.9-35.2); Mean Corpuscular Hemoglobin 32.0 pg (26.7-34.0); Mean Corpuscular Volume 96.4 fL (81.0-99.0); Platelet Count 249 10^3/uL (150-450); Red Blood Count 4.22 10^6/uL (4.20-5.40); White Blood Count 7.3 10^3/uL (4.0-11.0)
[2025-01-01 18:14] LABS: Alanine Aminotransferase 40 U/L (14-59); Albumin Globulin Ratio 1.0; Albumin Level 3.7 g/dL (3.4-5.0); Alkaline Phosphatase 101 U/L (46-116); Anion Gap 14.8; Aspartate Amino Transferase 67 U/L (15-37); Blood Urea Nitrogen 24.0 mg/dL (7.0-18.0); Calcium 9.9 mg/dL (8.5-10.1); Carbon Dioxide 26.9 mmol/L (21.0-32.0); Chloride 103 mmol/L (98-107); Estimated GFR (African America 54 (>=60 mL/min/1.73m^2); Estimated GFR (Non-African Ame 45 (>=60 mL/min/1.73m^2); Globulin 3.8 g/dL; Glucose 94 mg/dL (74-106); Lipase 45.0 U/L (16.0-77.0); Potassium 3.7 mmol/L (3.5-5.1); Sodium 141 mmol/L (136-145); Total Protein 7.5 g/dL (6.4-8.2)
[2025-01-01 18:16] LABS: Glucose Urine UA NEGATIVE (NEGATIVE)
[2025-01-01] MEDS: FAMOTIDINE/PF 20 MG/2 ML VIAL IV (18:32)
[2025-01-01] MEDS: FENTANYL CITRATE/PF 100 MCG/2 ML VIAL 25 MCG IV ×2 (18:32→20:53)
--- NOTE | 2025-01-01 20:11 | CT_ITS ---
The [address] [address] Patient Name: TRACI BARRAZA MRN: [id number] date: 1945 Sex: F Assigned Patient Location: ED.MAIN Current Patient Location: ED.MAIN Accession/Order Number: [id number] Exam Date: 01/01/2025 20:22 Report Date: 01/01/2025 21:07 At the request of: FATOUMATA BARNETT Procedure: CT abdomen pelvis w con CT ABDOMEN AND PELVIS WITH INTRAVENOUS CONTRAST: CLINICAL HISTORY: epigastric pain COMPARISON: 10/05/2024 TECHNIQUE: Spiral images were obtained through the abdomen and pelvis following the administration of intravenous contrast. This CT exam was performed using one or more following dose reduction techniques: Automated exposure control, adjustment of the mA and/or kV according to patient size, or use of iterative reconstruction technique. FINDINGS: Lung Bases: [Bibasilar atelectasis and or scarring. Cardiomegaly.] Organs:Cholecystectomy. Intrahepatic and extrahepatic biliary ductal dilatation noted could be related to physiologic ectasia. Common bile duct measuring 1.5 cm. Correlate with LFTs. Otherwise the liver, pancreas, spleen and adrenal glands unremarkable. Cystic changes involving the kidneys. No hydronephrosis. GI: Mild to moderate retained stool. No bowel obstruction. Colonic diverticulosis noted. The appendix is unremarkable.[ Pelvis:[Bladder unremarkable. Hysterectomy. No adnexal mass.] Peritoneum/Retroperitoneum:No free air or free fluid. Oyyw-ao-khmgyrwn aortic vascular calcification. Aorta is not aneurysmal.[ Abd wall/Bones:Degenerative changes. Levocurvature lumbar spine. No suspicious osseous lesion.[ CT/CT abdomen pelvis w con IMPRESSION: Negative acute inflammatory process or bowel obstruction Dilated common bile duct possibly related to physiologic ectasia from prior cholecystectomy. Similar biliary duct dilatation on prior examination. Please correlate with LFTs. Impression dictated by: Delfin Bourne M.D. 01/01/2025 9:07 PM Dictation Location: [place] [address] Electronically authenticated by: [id number] Y Date: 01/01/2025 21:07
[2025-01-01] MEDS: METOPROLOL TARTRATE 5 MG/5 ML VIAL 2.5 MG IVP (20:53)
--- NOTE | 2025-01-01 21:33 | PC.NURSE ---
i gave this patient verbal and written discharge orders and this patient voices yes to understanding these. at time of discharge this patient nor her family members voices no concerns, needs and shows no signs of distress
== END 2025-01-01 21:33 | disposition home or self-care (01) ==
PROVIDERS: Nurse Practitioner Family; Emergency Provider Emergency Medicine; PCP Family Medicine
DX: R10.13 Epigastric pain (principal); Z90.49 Acquired absence of other specified parts of digestive tract
CPT/HCPCS: 36415; 74177; 80053; 81003; 83690; 84484; 85025; 93005; 96374; 96375; 96376; 99285; J2405; J3010; J3490; Q9967

== ENCOUNTER 2025-02-28 08:01 | Outpatient (OUT) | payer MEDICARE, SELFPAY ==
--- OUTSIDE RECORDS SUMMARY | 2025-02-28 08:05 | XMS_ITS | Clinical Summary ---
Author Organization [employer] s tem Address [id number] [address] 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 Name Role Phone Shari Kay MD Primary Care Provider [phone] Allergies No known active allergies Medications MedicationSigDispense QuantityRefillsLast FilledStart DateEnd DateStatus topiramate (TOPAMAX) 50 mg tablet Take 50 mg by mouth daily.Active wmnnepivkt-qqmdkyzhztpxh-ahxv (FIORICET, ESGIC) 50-325-40 mg per tablet Take 1 tablet by mouth every 4 (four) hours as needed for headaches.Active fluticasone propion-salmeterol (ADVAIR) 100-50 mcg/dose DISKUS Inhale 1 puff 2 (two) times a day.Active calcium carbonate (OS-HOLLIE) 600 mg (1,500 mg) tablet Take 600 mg by mouth 2 (two) times a day with meals.Active cholecalciferol, vitamin D3, 400 units tablet Take 400 Units by mouth daily.Active meloxicam (MOBIC) 7.5 mg tablet Take 7.5 mg by mouth daily.Active ferrous sulfate 325 (65 FE) mg tablet Take 1 tablet by mouth daily.Active HYDROcodone-acetaminophen (NORCO) 10-325 mg per tablet Take 1 tablet by mouth every 6 (six) hours as needed.07/21/2018Active losartan-hydroCHLOROthiazide (HYZAAR) 100-12.5 mg per tablet Take 1 tablet by mouth daily.Active Active Problems ProblemNoted DateDiagnosed DatePrimary osteoarthritis of right knee07/26/2018 Osteoarthritis of left knee06/22/2017 Social History Tobacco UseTypesPacks/DayYears UsedDateSmoking Tobacco: NeverSmokeless Tobacco: NeverAlcohol UseStandard Drinks/WeekCommentsYes0 (1 standard drink = 0.6 oz pure alcohol)weeklyChildcareAnswerDate WdxxpitwCagrnearwCofzavz89/12/2019Employment AnswerDate JzcrfwvrHrbonlimggCcnqppp84/12/2019Purpose - LifeAnswerDate Recorded Purpose and direction in xorsIbsoedf15/11/2021CommentsNoSex and Gender InformationValueDate RecordedSex Assigned at BirthNot on fileLegal SexFemale 10/17/2014 11:39 AM EDTGender IdentityNot on fileSexual OrientationNot on file Last Filed Vital Signs Vital SignReadingTime TakenCommentsBlood Iuedfzcp151/5007 8:45 AM EDT Fpzki411010/04/2023 8:45 AM ONUTvcqpdyykrt97.4 ??C (97.5 ??F)07/26/2018 11:56 PM EDTRespiratory Gnbk635507/26/2018 11:56 PM EDTOxygen Dvejyitdwf60%07/26/2018 11:56 PM EDTInhaled Oxygen Concentration--Hhljqi38 kg (119 lb)10/04/2023 8:45 AM EDT Bqakrh520.9 cm (4' 11 )10/04/2023 8:45 AM EDTBody Mass Index24.04010/04/2023 8:45 AM EDT Plan of Treatment Health MaintenanceDue DateLast DoneCommentsDepression Grzmovljh19/02/1957Tobacco Btyyvguoj93/02/1957Fall Risk Nthmnatvz86/02/2010COVID-19 Vaccine ( season), 03/30/2022, 01/08/2021, Additional history exists Influenza Onfbbrn79, 12/23/2022, 12/01/2021, Additional history existsDTaP,Tdap and Td Vaccines (2 - Td or Tdap) Zoster (Shingles) GiqbnwbQlqitpdlh67/03/2020, 11/13/2019, 11/12/2019RSV ( or age 60+ yrs)Spsbcwhdj81/07/2024 Medical Devices ImplantedTypeAreaManufacturerDevice IdentifierShelf Expiration DateModel / Serial / LotCement Bn Palacos Radpq 40g Rpl [id number] - Sna - [id number] Implanted:Qty: 1 on [facility]22/[facility] KneeZimmer [id number] / NA / [id number] Bn Bio 40gm Rpl [id number] - Sna - [id number] Implanted:Qty: 1 on 07/26/2018 [facility]: KneeZimmer [id number] / NA / [id number] Tib C 8mm Kn Lt Mdl - Sna - [id number] Implanted:Qty: 1 on 06/22/2017 by Ede Ramos DO at [facility] ImplantLeft: KneeZimmer [id number] / NA / [id number] Fem 1 Kn Lt Mdl Persona - Sna - [id number] Implanted:Qty: 1 on 06/22/2017 by Ede Ramos DO at [facility] ImplantLeft: KneeZimmer [id number] / NA / [id number] Fem 2 Kn Persona Strl - Sna - [id number] Implanted:Qty: 1 on 07/26/2018 by Ede Ramos DO at [facility] ImplantRight: KneeZimmer Tvyeig0207/11/2026 [id number] / NA / [id number] Tib D 8mm Kn Rt Mdl - Sna - [id number] Implanted:Qty: 1 on 07/26/2018 by Ede Ramos DO at [facility] ImplantRight: KneeZimmer Vmhszd9608/11/2021 [id number] / NA / [id number] Tib C Kn Lt Mdl Persona - Sna - [id number] Implanted:Qty: 1 on [facility]/22/2017 [facility] KneeZimmer [id number] / NA / [id number] Tib D Kn Persona Strl - Sna - [id number] Implanted:Qty: 1 on [facility]/26/[facility] K[facility]Zimmer [id number] / NA / [id number] Insrtr Persona Brng Disp - Sna - [id number] Implanted:Qty: 1 [facility]/22/[facility] K[facility]Zimmer [id number] / NA / [id number]vgtbvCwfnit [facility] Expiration DateModel / Serial / LotScr Gd 27mm Mqd Spr Hex Hd - Sna - [id number] Explanted:Qty: 1 [facility]immer [id number] / NA / [id number] Gd 48mm Qd-Spr Kn Hd Mis - Sna - [id number] Explanted:Qty: 1 on 06/22/2017 [facility] KneeZimmer [id number] / NA / [id number] Gd 48mm Qd-Spr Kn Hd Mis - Sna - [id number] Explanted:Qty: 1 on 06/22/2017 [facility] KneeZimmer [id number] / NA / [id number] Gd 48mm Qd-Spr Hex Hd Mis - Sna - [id number] Explanted:Qty: 2 on 07/26/2018 [facility] KneeZimmer Geqqhj49/[id number] / NA / [id number] Gd 33mm Hex Hd Mis - Sna - [id number] Explanted:Qty: 1 on 07/26/2018 [facility]: Bruno [id number] / NA / [id number] Insurance * Guarantor: Radha CuadraAccount TypeRelation to PatientDate of BirthPhone Billing AddressPersonal/IwyxxlXotn91/02/1946 [facility] [address] [place] [address] Care Teams Team MemberRelationshipSpecialtyStart DateEnd Date Shari Kay MD [address] [place] [address] PCP - GeneralFamily Medicine06/03/17
--- OUTSIDE RECORDS SUMMARY | 2025-02-28 08:06 | XMS_ITS | Clinical Summary ---
Author Organization [facility] 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
--- OUTSIDE RECORDS SUMMARY | 2025-02-28 08:06 | XMS_ITS | Clinical Summary ---
Author Organization [facility] Address [address] [place] [address] Care Team Providers Care Interpretive Naturalist Name Role Phone Shari Kay MD Primary Care Provider [phone] Allergies Active AllergyReactionsCriticalityNoted WdjdOqkorneeXfwdbhhxtudYgbiqpv50/30/2021 Medications MedicationSigDispense QuantityRefillsLast FilledStart DateEnd DateStatus cholecalciferol (Vitamin D-3) 10 MCG (400 UNIT) tablet Take 400 Units by mouth in the morning.Active HYDROcodone-acetaminophen (Sealy) 5-325 mg tablet Take 1 tablet by mouth if needed in the morning and at bedtime.Active fluticasone propion-salmeteroL (Advair Diskus) 250-50 mcg/dose diskus inhaler INHALE 1 PUFF IN THE MORNING AND BEFORE BEDTIMEActive traZODone (Desyrel) 50 mg tablet Take 50 mg by mouth at bedtime.12/22/2023ctive oxyCODONE (Roxicodone) 5 mg immediate release tablet Take 5 mg by mouth every 6 (six) hours if needed for moderate pain (4-7 pain score).Active spironolactone (Aldactone) 25 mg tablet Indications:Diastolic dysfunction,Pulmonary hypertension (CMS/HCC)Take 1 tablet (25 mg) by mouth in the morning. 30 tablet 1109506Active losartan (Cozaar) 100 mg tablet Indications:Diastolic dysfunctionTake 1 tablet (100 mg) by mouth once daily as directed. 90 tablet 309/1808376Active metoprolol succinate XL (Toprol-XL) 50 mg 24 hr tablet Indications:Benign hypertensive heart disease without congestive heart failure Take 1 tablet (50 mg) by mouth once daily as directed. Do not crush or chew. 90 tablet 51ctive amLODIPine (Norvasc) 5 mg tablet Indications:Benign hypertensive heart disease without congestive heart failure Take 1 tablet (5 mg) by mouth once daily as directed. 90 tablet 5103/23/2025ctive Active Problems ProblemNoted DateDiagnosed DateHeart skouzx6411/15/2024ute cholecystitis 10/08/2024Intractable right upper quadrant abdominal pain10/08/2024Leukocytosis 10/08/20240471Fyephpm41/28/8004Bhqwttxozwduch27/23/2023Other chronic pain08/03/2022 Age-related osteoporosis without current pathological mzqqcypw52/04/2023 Artificial knee joint pwhheid7807/15/2022ifficulty ajpjkqu7707/15/2022Essential sldurvjwtwqr03/04/2023Migraine without aura and without status migrainosus, not apkxjdhidwi17/04/2023Mild aortic ravjvuyz62/04/2023Moderate aortic regurgitation 07/15/2022Nonrheumatic mitral valve emyijalllmjmx96/04/2023Nonrheumatic tricuspid valve mfbvwwnebanje79/04/2023Osteoarthritis of left glenohumeral joint 07/15/2022Other fqokjupi02/04/2023ure vueuypqwbtrheruesasv59/04/2023RLS (restless legs syndrome)07/15/2022Stage 3b chronic kidney jdgjigv9107/15/2022 Systolic wygzar0607/15/2022rimary osteoarthritis of right knee07/26/2018Chronic tension-type igxnkzep95/26/2018Osteoarthritis of left knee06/22/2017Mild intermittent ebyfux9306/12/2017Chronic obstructive pulmonary kxdrjgw8005/18/2011 Encounters DateTypeDepartmentCare TgpmClujdhzbdog52/12/2025Telephone [facility] [address] [place] [facility] [place] [address] Shanita Smith MA 02/22/2025Telephone [facility] [address] [place] [phone] Shanita Smith MA 01/21/2025Orders Only [facility] [address] [place] [facility] [place] [address] China Padilla MA Benign hypertensive heart disease without congestive heart failure (Primary Dx) 01/15/2025 10:[address] [facility] [address] [place] [facility] [place] [address] Shahriar Hrenandez MD PVC (premature ventricular contraction) (Primary Dx)01/02/2025Orders Only [facility] [address] [facility] [place] [address] China Padilla MA Benign hypertensive heart disease without congestive heart failure (Primary Dx) 12/25/2024Telephone [facility] [address] [facility] [place] [address] China Padilla MA 12/03/2024 11:[address] [address] [place] [facility] [place] [address] Teo Burrows MD Chronic diastolic congestive heart failure (CMS/HCC) (Primary Dx); Nonrheumatic aortic valve insufficiency; PVC (premature ventricular contraction); Nonrheumatic aortic valve stenosis; Nonrheumatic mitral valve regurgitation; Pulmonary hypertension (CMS/HCC); Mixed hyperlipidemia; Primary /19/2025Telephone [facility] [address] [place] [facility] [place] [address] Shanita Smith MA 11/29/2024Telephone [facility] [address] [facility] [place] [address] Shanita Smith MA from Last 3 Months Family History Medical HistoryRelationNameCommentsNo Known ProblemsFatherNo Known Problems MotherRelationNameStatusCommentsFatherDeceasedMotherDeceased Social History Tobacco UseTypesPacks/DayYears UsedDateSmoking Tobacco: NeverPassive Smoke Exposure: PastSmokeless Tobacco: Never Tobacco Cessation:Counseling Given: Not Answered Alcohol UseStandard Drinks/WeekCommentsYes0 (1 standard drink = 0.6 oz pure alcohol)1.5 shots of vodka nightlyCommentsUnknownSex and Gender InformationValueDate RecordedSex Assigned at AiqhnQyobsl01/03/2025 11:08 AM EDT Legal FsyKkskqi45/29/2022 11:03 PM EDTGender EgyarjusOlxdoi38/03/2025 11:08 AM EDTSexual OrientationHeterosexual or Kenzszcx00/03/2025 11:08 AM EDT Last Filed Vital Signs Vital SignReadingTime TakenCommentsBlood Rnksqtvh859/80103/17/2024 10:42 AM EST Txadz746601/15/2025 10:42 AM ESTTemperature--Respiratory Rate--Oxygen Saturation 97%01/15/2025 10:42 AM ESTInhaled Oxygen Concentration--Fxgenh81.7 kg (103 lb) 01/15/2025 10:42 AM QYHReppod433.3 cm (4' 10 )01/15/2025 10:42 AM ESTBody Mass Index21.5301/15/2025 10:42 AM EST Plan of Treatment Health MaintenanceDue DateLast DoneCommentsMedicare Annual Wellness (AWV) 1944Depression Hmnsvkzrp28/02/1957Fall Risk Ykiokilzt66/02/2010COVID-19 Vaccine ( season), 12/23/2022, 03/30/2022, Additional history existsAdult Qmamryk84Pneumococcal Vaccine: 50+ HxfbqLhpahnbrj94/07/2017, 11/12/2016, 05/10/2014, Additional history exists Zoster AtwmqhifBhhovsydw41/03/2020, 11/13/2019, 11/12/2019Influenza Vaccine Lezicrdfm20/15/2025, 01/05/2024, 12/23/2022, Additional history existsHIB VaccinesAged OutNo longer eligible based on patient's age to complete this topic HPV VaccinesAged OutNo longer eligible based on patient's age to complete this topicIPV VaccinesAged OutNo longer eligible based on patient's age to complete this topicMeningococcal B VaccineAged OutNo longer eligible based on patient's age to complete this topicMeningococcal VaccineAged OutNo longer eligible based on patient's age to complete this topicRotavirus VaccinesAged OutNo longer eligible based on patient's age to complete this topic Procedures Procedure NamePriorityDate/TimeAssociated DiagnosisCommentsHOLTER MONITOR - IN XCTUZVZgpcgxc17/22/2025 2:17 PM EDT PVC (premature ventricular contraction) from Last 3 Months Results * Holter monitor - 48 hour (12/03/2024 2:17 PM EDT)Anatomical RegionLaterality ModalityOther Narrative Authorizing ProviderResult TypeResult StatusMelky Gilmore CNPCV CARDIAC SERVICES PROCEDURESFinal Result from Last 3 Months Insurance Care Teams Team MemberRelationshipSpecialtyStart DateEnd Date Shari Kay MD [address] [place] [address] PCP - GeneralInternal Medicine10/10/24
--- OUTSIDE RECORDS SUMMARY | 2025-02-28 08:06 | XMS_ITS | Encounter Summary ---
Author Organization [facility] Address [address] [place] [address] Care Team Providers Care Core Measures Abstractor Name Role Phone Shari Kay MD Primary Care Provider [phone] Anh King LPN Unavailable [phone] Encounter Details DateTypeDepartmentCare Team (Latest Contact Info)Spvhznmxsst51/09/2025Refill [facility] [address] [place] [address] Shari Kay MD [address] [place] [address] Primary insomnia Social History Tobacco UseTypesPacks/DayYears UsedDateSmoking Tobacco: NeverSmokeless Tobacco: NeverAlcohol UseStandard Drinks/WeekCommentsYes5 (1 standard drink = 0.6 oz pure alcohol)Caffeine intake: 1-2 cups per dayAUDIT-CAnswerDate RecordedQ1: How often do you have a drink containing alcohol?4 or more times a week06/17/2023Q2: How many drinks containing alcohol do you have on a typical day when you are drinking?1 or Q3: How often do you have six or more drinks on one occasion?Never06/17/2023HQ-2AnswerDate RecordedPatient Health Questionnaire-2 Cbpal4354CommentsUnknownSex and Gender InformationValueDate RecordedSex Assigned at BirthNot on fileLegal WbjCwprll80/15/2023 6:52 PM EDT Gender IdentityNot on fileSexual OrientationNot on filedocumented as of this encounter Miscellaneous Notes * Telephone Encounter - Yasmin Suresh - 02/19/2025 10:48 AM EST Pt needs rx changed to 75mg, insurance will not pay for another this month without that documented in this encounter Plan of Treatment Not on file documented as of this encounter Visit Diagnoses Diagnosis Primary insomnia Persistent disorder of initiating or maintaining sleep documented in this encounter Additional Health Concerns AssessmentNoted TimePHQ-9 Depression Total Score: 8:00 AM EDT documented as of this encounter Care Teams Team MemberRelationshipSpecialtyStart DateEnd Date Shari Kay MD [address] [place] [address] PCP - GeneralFamily Medicine07/26/22 Anh King LPN Licensed Practical NurseFamily Medicine11/05/24documented as of this encounter
--- OUTSIDE RECORDS SUMMARY | 2025-02-28 08:06 | XMS_ITS | Encounter Summary ---
Author Organization [facility] Address [address] [place] [address] Care Team Providers Care Automatic Centrifugal Station Operator Name Role Phone Shari Kay MD Primary Care Provider [phone] Encounter Details DateTypeDepartmentCare Team (Latest Contact Info)Xbuzrimaxfg73/12/2025Telephone [facility] [place] [address] [place] [address] Shanita Smith MA Social History Tobacco UseTypesPacks/DayYears UsedDateSmoking Tobacco: NeverPassive Smoke Exposure: PastSmokeless Tobacco: NeverAlcohol UseStandard Drinks/WeekCommentsYes 0 (1 standard drink = 0.6 oz pure alcohol)1.5 shots of vodka nightly CommentsUnknownSex and Gender InformationValueDate RecordedSex Assigned at Wjmwgb3511/14/2024 11:08 AM EDTLegal OlcClpqyv57/29/2022 11:03 PM EDTGender FihyucumUzvqzo72/03/2025 11:08 AM EDTSexual OrientationHeterosexual or Straight 11/14/2024 11:08 AM EDTdocumented as of this encounter Miscellaneous Notes * Telephone Encounter - Shanita Smith MA - 02/22/2025 8:29 AM EST Images from the original note were not included. Phone call from patient, patient states her blood pressures are still high and 150 and 160, please advise Teo Burrows MD to Me (Selected Message) 02/22/25 1:19 PM Please have her increase amlodipine to 10 mg daily. Continue to monitor blood pressure. Spoke to patient to advise her of Dr. Burrows's recommendation. Patient verbalized understanding and agreed with plan of care. documented in this encounter Plan of Treatment Not on file documented as of this encounter Visit Diagnoses Not on filedocumented in this encounter Care Teams Team MemberRelationshipSpecialtyStart DateEnd Date Shari Kay MD [address] [place] [address] PCP - GeneralInternal Medicine10/10/24documented as of this encounter
--- OUTSIDE RECORDS SUMMARY | 2025-02-28 08:06 | XMS_ITS | Clinical Summary ---
Author Organization [facility] Address [address] [place] [address] Care Team Providers Care Development Educator Name Role Phone Shari Kay MD Primary Care Provider [phone] Ahn King LPN Unavailable [phone] Allergies Active AllergyReactionsCriticalityNoted AnchUmfqskckLlqkchvorwaYlbnagy93/30/2021 Medications MedicationSigDispense QuantityRefillsLast FilledStart DateEnd DateStatus CALCIUM-VITAMIN D PO in the morning and before bedtime.3Active cwdlhmlbne-omlnevarbfpzu-cwpcxsax 50-325-40 MG tablet Take 1 tablet by mouth every 4 (four) hours if needed (headache)Active Multiple Vitamin (multivitamin) capsule Take 1 capsule by mouth DailyActive atorvastatin (Lipitor) 20 MG tablet Indications:Mixed hyperlipidemiatake 1 tablet by mouth once daily 90 tablet 4Active acetaminophen-codeine (Tylenol w/ Codeine #3) 300-30 MG tablet Take 1 tablet by mouth as needed in the morning and 1 tablet as needed in the evening.5Active ondansetron (Zofran) 4 MG tablet Take 4 mg by mouth Daily as enwkon075Active furosemide (Lasix) 20 MG tablet Take 20 mg by mouth Daily as needed (leg swelling)5Active HYDROcodone-acetaminophen ([place]) 5-325 MG tablet Take 1 tablet by mouth every 6 (six) hours if needed for moderate pain or severe pain5Active albuterol HFA 90 mcg/act inhaler Inhale 2 puffs 2 (two) times a day as needed for wheezing or shortness of breath 5Active losartan-hydroCHLOROthiazide (Hyzaar) 100-12.5 MG tablet Indications:Essential hypertensionTAKE 1 TABLET BY MOUTH EVERY DAY IN THE MORNING 100 tablet 5Active metoprolol succinate XL (Toprol-XL) 25 MG 24 hr tablet Indications:PVC (premature ventricular contraction)Take 1 tablet (25 mg) by mouth Daily Do not crush or chew. 90 tablet 5Active Fluticasone-Salmeterol 250-50 MCG/ACT aerosol powder Indications:Mild intermittent asthma, unspecified whether complicated (HCC) INHALE 1 PUFF IN THE MORNING AND BEFORE BEDTIME 180 each 5Active traZODone (Desyrel) 50 MG tablet Indications:Primary insomniaTake 1.5 tablets (75 mg) by mouth at bedtime 135 tablet 5Active traZODone (Desyrel) 50 MG tablet Indications:Primary insomniaTake 1 tablet (50 mg) by mouth at bedtime 90 tablet Discontinued(Reorder) Fluticasone-Salmeterol 250-50 MCG/ACT aerosol powder Indications:Mild intermittent asthma, unspecified whether complicated (HCC) Inhale 1 puff in the morning and 1 puff before bedtime. 180 each Discontinued Active Problems ProblemNoted DateDiagnosed DateAcute wqlmrogzsikrr03/28/2025Intractable right upper quadrant abdominal pain10/08/20240312Esvvnyghkomt05/28/6283Xrbvzfi97/28/2025 Mxphpsvhvetfhc43/23/2023Other chronic pain08/03/2022ge-related osteoporosis without current pathological jlvvobwu96/04/2023rtificial knee joint present 07/15/2022ifficulty truiojj8807/15/2022Essential llidhtjoyqvr57/04/2023 Osteoarthritis of left glenohumeral joint07/15/2022Migraine without aura and without status migrainosus, not sxarvhjljop65/04/2023Mild aortic stenosis 07/15/2022Moderate aortic kfjueaydkctbe98/04/2023 Assessment & Plan (09/26/2024 2:51 PM EDT): -consider cardiology referral pending EKG results. Nonrheumatic mitral valve dijaogdjutzta57/04/2023Nonrheumatic tricuspid valve laonnqrmgxgys61/04/2023Other /04/2023ure hypercholesterolemia 07/15/2022 Assessment & Plan (09/26/2024 2:51 PM EDT): Orders: Lipid panel; Future -check lipid panel RLS (restless legs syndrome)07/15/2022Stage 3b chronic kidney hoztjky1607/15/2022 Assessment & Plan (09/26/2024 2:51 PM EDT): Orders: Comprehensive metabolic panel; Future -check renal function. Avoid nephrotoxic medications. Systolic oqpnkw8007/15/2022Nonrheumatic aortic valve opdmmvumuirod66/28/2020 Chronic tension-type gutbegev89/26/2018Mild intermittent arsvdj3106/12/2017Chronic obstructive pulmonary tqvtfue5905/18/2011 Assessment & Plan (09/26/2024 2:51 PM EDT): -stable with inhalant therapy Resolved Problems ProblemNoted DateDiagnosed DateResolved DateHeart xvfjzl45HTN (hypertension)rthritis of left knee Lygenudnn90Internal derangement of left odbhudza64/04/2023 06/17/2023Mild intermittent asthma with status zthvodrevtw38 Reflux zlvhrasev36oor sleep yjljvto80Non- rheumatic mitral eysftjoraseug49rimary osteoarthritis of right kneeortic valve qcyycfmf06ge related oyomazirxiog53estless legs Osteoarthritis of left kneeNonrheumatic tricuspid valve mpuhsgxy25ostmenopausal stateMigraine without aura, not ccxwjfcitn44Intractable episodic cluster qpuyqavh38 Encounters DateTypeDepartmentCare IcmdQycnoguwrti85/09/2025Refill [facility] [address] [place] [phone] Shari Kay MD Primary podizfjf05/20/2025Refill [facility] [address] [place] [phone] China Ortiz NP Mild intermittent asthma, unspecified whether complicated (HCC)01/17/2025 8:30 AM ESTAncillary Procedure [facility] [address] [facility] [address] [place] [phone] Breast rcubfmppr19/06/2025Results Follow-Up [place] [id number] [place] [phone] Shari Kay MD Bilateral screening mammogram with ysabqmtecncai59/06/7563Iodjgj78/23/2025 Patient Outreach [facility] [address] [place] [address] Anh King LPN 12/26/2024Refill [facility] [address] [place] [phone] Shari Kay MD PVC (premature ventricular contraction)12/18/2024Orders Only [facility] [address] [place] [address] Shari Olmos MA Breast elagxuhqz26/07/2025Telephone [facility] [address] [place] [phone] Shari Kay MD 12/03/2024linisync Result Encounter [facility] Unsolicited Provider, Generic External Data 12/03/2024Patient Outreach [facility] [address] [place] [phone] Anh King LPN 12/03/2024Telephone [facility] [address] [place] [address] Shari Kay MD from Last 3 Months Immunizations ImmunizationAdministration DatesNext DueInfluenza Whole12/30/2014,12/13/2013 Influenza, High Dose Seasonal, Preservative Free01/05/2024,11/30/2017,11/18/2016 ,12/11/2015Influenza, High-dose Seasonal, Quadrivalent, Preservative Free 12/23/2022,12/16/2020Influenza, Recombinant, injectable, preservative free 12/01/2021Influenza, Seasonal, Quadrivalent, Phodxtdukr18/20/2022Influenza, injectable, quadrivalent, preservative free11/13/2019,12/30/2014Influenza, seasonal, srrfozuuzd48/25/2020Influenza, seasonal, intradermal, preservative free01/12/2013Influenza, trivalent, ihhvhxmsym53/18/2019,11/24/2017,11/18/2016 Pneumococcal Conjugate PCV 1309,05/10/2014Pneumococcal Conjugate, Lvpvgoiyywj30/01/2013Pneumococcal Polysaccharide VHTJ6831,12/27/2012RSV, recombinant, protein subunit RSVpreF, adjuvant reconstitu, 120mcg/0.5mL, PF (Arexvy)01/19/20247351IWNS-EOI-3 (COVID-19) vaccine, mRNA, spike protein, LNP, PF, 50 mcg/0.5 mL12/23/2022Tdap11/18/2016Zoster, Ffwroctxkgv53/03/2020,11/13/2019, 11/12/2019 Family History Medical HistoryRelationNameCommentsEmphysemaFatherEmphysemaMotherEmphysemaOther RelationNameStatusCommentsBrother2 brothersDaughter5 daughtersFatherDeceased MotherDeceasedOtherFamily historySon3 sons Social History Tobacco UseTypesPacks/DayYears UsedDateSmoking Tobacco: NeverSmokeless Tobacco: Never Tobacco Cessation:Counseling Given: Not Answered Alcohol UseStandard Drinks/WeekCommentsYes5 (1 standard drink = 0.6 oz pure alcohol)Caffeine intake: 1-2 cups per dayAUDIT-CAnswerDate RecordedQ1: How often do you have a drink containing alcohol?4 or more times a week06/17/2023Q2: How many drinks containing alcohol do you have on a typical day when you are drinking?1 or Q3: How often do you have six or more drinks on one occasion?Never06/17/2023HQ-2AnswerDate RecordedPatient Health Questionnaire-2 Vfjbs319CommentsUnknownSex and Gender InformationValueDate RecordedSex Assigned at BirthNot on fileLegal QwgPgvpur51/15/2023 6:52 PM EDT Gender IdentityNot on fileSexual OrientationNot on file Last Filed Vital Signs Vital SignReadingTime TakenCommentsBlood Yneussfr051/7607 11:06 AM EDT Dgwgu7516/16/2025 2:01 PM ZGZRiufjsqothv82.4 ??C (99.3 ??F)05/09/2024 10:34 AM ESTRespiratory Pjpa732509/19/2023 2:02 PM EDTOxygen Luhplorbgh97%09/26/2024 2:01 PM EDTInhaled Oxygen Concentration--Kgykuh93.5 kg (107 lb)11/02/2024 9:31 AM EDT Ixupbm082.9 cm (4' 11 )11/02/2024 9:31 AM EDTBody Mass Index21.61011/02/2024 9:31 AM EDT Plan of Treatment Health MaintenanceDue DateLast DoneCommentsCOVID-19 Vaccine ( season) , 12/23/2022, 03/30/2022, Additional history exists Pneumococcal Vaccine: 65+ UhdqxQtxagieep21/07/2017, 11/12/2016, 05/10/2014, Additional history existsInfluenza CkxwtutQrxvwvdjs53/15/2025, 01/05/2024, 12/23/2022, Additional history exists Procedures Procedure NamePriorityDate/TimeAssociated DiagnosisCommentsBI MAMMOGRAM SCREENING TOMOSYNTHESIS XUSOQCHZERpvgspj46/06/2025 8:44 AM EST Breast screening ALL BASIC METABOLIC FCXFAXctzdfe93/22/2025 11:21 AM EDT from Last 3 Months Results * Bilateral screening mammogram with tomosynthesis (01/17/2025 8:44 AM EST) Anatomical RegionLateralityModalityBreastBilateralMammographySpecimen (Source) Anatomical Location / LateralityCollection Method / VolumeCollection Time Received Time01/17/2025 1:26 PM EST Impressions 01/17/2025 1:31 PM EST Impression: No specific evidence of malignancy seen in either breast. BIRADS 2 - Benign Findings DENSITY: There are scattered areas of fibroglandular density. FOLLOW-UP: Routine Screening Mammogram Board Certified Radiologists. ??Accredited by the ACR and FDA. MAMMOGRAPHY IS VERY IMPORTANT TO YOUR HEALTH. ??THE ETHIOPIAN [employer] SOCIETY GUIDELINES RECOMMEND THAT WOMEN 40 YEARS OF AGE AND OLDER SHOULD HAVE A MAMMOGRAM EVERY YEAR. A REMINDER LETTER WILL BE SENT AT THE APPROPRIATE TIME. ?? ELECTRONICALLY SIGNED BY: Jayant Peters M.D. Narrative 01/17/2025 1:31 PM EST Examination: BI MAMMOGRAM SCREENING TOMOSYNTHESIS BILATERAL Clinical History: screening mammogram Technique: Screening digital mammography study of both breasts was performed with 2-D and 3-D tomosynthesis imaging. Study was compared to the prior exam dated 12/28/2023. Findings: There is no evidence of interval dominant spiculated mass, grouped microcalcifications, or skin thickening which would be suggestive of malignancy. ?? Scattered benign-appearing vascular calcifications are noted bilaterally. Procedure Note Jayant Peters MD - 01/17/2025 Examination: BI MAMMOGRAM SCREENING TOMOSYNTHESIS BILATERAL Clinical History: screening mammogram Technique: Screening digital mammography study of both breasts wasperformed with 2-D and 3-D tomosynthesis imaging. Study was compared tothe prior exam dated 12/28/2023. Findings: There is no evidence of interval dominant spiculated mass,grouped microcalcifications, or skin thickening which would be suggestiveof malignancy. Scattered benign-appearing vascular calcifications are notedbilaterally. IMPRESSION: Impression: No specific evidence of malignancy seen in either breast. BIRADS 2 - Benign Findings DENSITY: There are scattered areas of fibroglandular density. FOLLOW-UP: Routine Screening Mammogram Board Certified Radiologists. Accredited by the ACR and FDA. MAMMOGRAPHY IS VERY IMPORTANT TO YOUR HEALTH. THE ETHI[employer]IAN [employer] SOCIET[employer] GUIDELINES RECOMMEND THAT WOMEN 40 YEARS OF AGE AND OLDER SHOULD HAVE AMAMMOGRAM EVERY YEAR. A REMINDER LETTER WILL BE SENT AT THE APPROPRIATE TIME. ELECTRONICALLY SIGNED BY: Jayant Peters M.D. Authorizing ProviderResult TypeResult StatusJennmarci HADDAD BI PROCEDURES Final Result * (ABNORMAL) ALL BASIC METABOLIC PANEL (12/03/2024 11:21 AM EDT)ComponentValue Ref RangeTest MethodAnalysis TimePerformed AtPathologist AxoemnbrfNPDSJA969840 - 145 mmol/LTBHPOTASSIUM4.23.5 - 5.1 mmol/LGRKLNKOGVZG182(H)98 - 107 mmol/LTBH CARBON NDZSBPT42.121.0 - 32.0 mmol/LTBHANION GAP10.7SVJHAFUDOO5893 - 106 mg/dL TBHBLOOD UREA FVUJIIVI21.0(H)7.0 - 18.0 mg/dLTBHCREATININE1.24(H)0.55 - 1.02 mg/dLTBHTBH EGFR-AF DKMDNAGO29(L)>=60 mL/min/1.73m 2TBHTBH EGFR-NON AF MOFHMVTL16(L)>=60 mL/min/1.73m 2TBHBUN CREATININE RATIO18.0XZXDHRMKYR3.08.5 - 10.1 mg/dLTBHSpecimen (Source)Anatomical Location / LateralityCollection Method / VolumeCollection TimeReceived Time12/03/2024 11:21 AM EDT12/03/2024 11:22 AM EDT Narrative [facility] - 12/03/2024 11:42 AM EDT Authorizing ProviderResult TypeResult StatusGeneric External Data Provider CLINISYNCFinal ResultPerforming OrganizationAddressCity/State/ZIP CodePhone Number [facility] from Last 3 Months Insurance Care Teams Team MemberRelationshipSpecialtyStart DateEnd Shari Kay MD [address] [place] [address] PCP - GeneralFamily Medicine07/26/22 Anh King LPN Licensed Practical NurseFamily Medicine11/05/24
--- OUTSIDE RECORDS SUMMARY | 2025-02-28 08:06 | XMS_ITS | Encounter Summary ---
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 Role Phone Shari Kay MD Primary Care Provider [phone] Encounter Details DateTypeDepartmentCare Team (Latest Contact Info)Ybkzhctvvuh39/12/2025Telephone [facility] [address] [place] [address] Shanita Smith MA Social History Tobacco UseTypesPacks/DayYears UsedDateSmoking Tobacco: NeverPassive Smoke Exposure: PastSmokeless Tobacco: NeverAlcohol UseStandard Drinks/WeekCommentsYes 0 (1 standard drink = 0.6 oz pure alcohol)1.5 shots of vodka nightly CommentsUnknownSex and Gender InformationValueDate RecordedSex Assigned at Wjeoik6411/14/2024 11:08 AM EDTLegal KytKzdpge22/29/2022 11:03 PM EDTGender WojsqvbuVplslf72/03/2025 11:08 AM EDTSexual OrientationHeterosexual or Straight 11/14/2024 11:08 AM EDTdocumented as of this encounter Plan of Treatment Not on file documented as of this encounter Visit Diagnoses Not on filedocumented in this encounter Care Teams Team MemberRelationshipSpecialtyStart DateEnd Date Shari Kay MD [address] [place] [address] PCP - GeneralInternal Medicine10/10/24documented as of this encounter
--- NOTE | 2025-02-28 08:19 | PM.CN ---
Consult Note: HPI Data of Consult Patient: known to practice within the last 3 years Consult date: 02/28/25 Requesting Physician: Concha Lopez NP Primary Care Provider: KELLY MCKEON Consult Narrative Reason for consult: back pain Narrative: 79yof who presents for assessment. advanced imaging completed which shows multilevel facet arthropathy in thoracic and lumbar spine. has continued to engage in a series of provider directed home exercises >6 weeks, without lasting benefit. uses otc pain meds as needed and hydrocodone-acetaminophen 5-325mg BID PRN. denies adverse med side effects. pain minimal at this time increasing to 10/10 at times with baking and cooking, notes aching pain. She is noting significant reduction in pain and improvement with baking, standing, walking since rotating to hydrocodone-acetaminophen. cc:: CC: Concha Lopez NP Review of Systems ROS Musculoskeletal Reports: back pain [facility] Medical History Osteoarthritis ?M19.90 - Unspecified osteoarthritis, unspecified site (ICD-10) Heart murmur ?R01.1 - Cardiac murmur, unspecified (ICD-10) Surgical History History of total shoulder replacement ?Z96.619 - Presence of unspecified artificial shoulder joint (ICD-10) History of total knee arthroplasty ?Z96.659 - Presence of unspecified artificial knee joint (ICD-10) History of carpal tunnel release ?Z98.890 - Other specified postprocedural states (ICD-10) Social History Little interest or pleasure in doing things: not at all Feeling down, depressed, or hopeless: not at all Meds Home Medications and Allergies Home Medications ?Medication ?Instructions ?Recorded ?Confirmed ?Type calcium 600 mg (as 1 tab PO BID 07/11/23 10/06/24 History carbonate)-vitamin D3 5 mcg (200 unit) tablet (Calcium 600 + D(3)) losartan 100 mg tablet 100 mg PO DAILY 07/11/23 10/06/24 History multivitamin-ferrous 1 tab PO DAILY 07/11/23 10/06/24 History fumarate-folic acid 18 mg-400 mcg tablet (Centrum Women) trazodone 50 mg tablet 50 mg PO DAILY 07/11/23 10/06/24 History albuterol 90 mcg/actuation aerosol mcg inhalation BID 02/01/24 History inhaler hydrocodone 5 mg-acetaminophen 325 1 tab PO Q6H PRN pain 5 days #15 10/05/24 10/06/24 Rx mg tablet tabs metoprolol succinate 25 mg 25 mg PO DAILY 10/05/24 10/06/24 History tablet,extended release 24 hr hydrocodone 5 mg-acetaminophen 325 1 tab PO BID PRN pain #60 tabs 10/25/24 Rx mg tablet naloxone 4 mg/actuation nasal 4 mg intranasal Q3M PRN opioid 10/25/24 Rx spray (Narcan) overdose #2 ea hydrocodone 5 mg-acetaminophen 325 1 tab PO BID PRN pain #60 tabs 12/25/24 Rx mg tablet hydrocodone 5 mg-acetaminophen 325 1 tab PO BID PRN pain #60 tabs 02/05/25 Rx mg tablet Allergies Allergy/AdvReac Type Severity Reaction Status Date / Time No Known Drug Allergies Allergy Verified 01/01/25 17:23 Exam Constitutional Documenting provider has reviewed patient's vital signs: yes Common normals: no apparent distress, oriented x3 and alert General appearance: cooperative HENMT Common normals: normocephalic, hearing grossly normal bilaterally and moist oral mucous membranes Head and scalp: normocephalic Eye Common normals: PERRL Pupil: PERRL Neck & C-Spine Common normals: full ROM General: normal visual inspection Chest Common normals: inspection of chest normal Respiratory Common normals: normal respiratory effort, no retractions and no use of accessory muscles Back & Pelvis Thoracic spine/upper back: ROM limited, pain with ROM and thoracic spinal tenderness T-spine tenderness location: T5, T6 and T7; no paraspinal muscle spasm Other: negative facet loading no tenderness over T10-L2 facets no radiculopathy on exam strength 5/5 in BLE thoracic scoliosis noted Neuro Common normals: oriented x3 Sensorium/orientation: alert Motor exam: strength 5/5 throughout and no movement abnormalities noted Psych Common normals: mental status grossly normal, thought process normal, cooperative, affect normal, speech normal and activity/motor behavior normal Speech: normal speech Thought process: normal thought process Results Additional Findings Additional findings: If on a controlled substance or opioids, I have checked an [place] report on this patient and there are no aberrancies noted in the prescribing history.??If on a controlled substance or opioid a drug screen was completed and reviewed within the last year, and if there has not been a drug screen completed we ordered one today to monitor higher risk, state monitored pain medication use. As part of providing excellent, safe, comprehensive care, the following was completed at our patient's visit: 1. A medication reconciliation and review to ensure accurate knowledge of current/active medications, including asking our patients to inform us about any uvwt-dpi-aajogcz medications or herbal remedies/nutritional supplements/alternative remedies. 2. A review to specifically ensure our patients have had annual screening for screening for depression, screening for tobacco use, and screening for unhealthy alcohol use. For concerning screenings had a discussion with the patient, provided patient education, and recommended follow-up with primary care provider when appropriate. If patient noted with a risk of falling, they received education on strength, gait, and balance training to prevent future risk of falling. Portions of this note may have been carried over from the previous visit and updated as appropriate. Please note this office utilizes paper charting in addition to the electronic medical record. A list of current medications, vitals, and PMH is available there as the clinical staff outside of myself do not have access to [employer] charting during the clinic day operations. As part of providing quality comprehensive care the current medications, vitals, and PMH were reviewed in the paper chart. Assessment and Plan Assessment and Plan (1) Thoracic spondylosis: Assessment and Plan: ALDO 11% (2) Thoracic back pain: (3) Lumbar spondylosis: (4) Chronic use of opiate drug for therapeutic purpose: Plan update UDS for medication monitoring continue hydrocodone-acetaminophen 5-325mg BID PRN moderate to severe pain 60 tabs to last 30 days. narcan discussed and prescribed previously not interested in scs trial/implant at this time, has been reconsidering due to persistent pain with baking and activity continue trazodone 50mg HS, can discuss alternative sleep aids with PCP. cannot take benzodiazepines as discussed continue baclofen 10mg HS PRN pain/spasms f/u 3 months, sooner if needed
== END 2025-02-28 08:02 | disposition home or self-care (01) ==
LOC: PM 08:02
PROVIDERS: PCP Family Medicine; Visit Provider Nurse Practitioner
DX: M47.814 Spondylosis without myelopathy or radiculopathy, thoracic region (principal); M54.6 Pain in thoracic spine; M47.816 Spondylosis without myelopathy or radiculopathy, lumbar region; Z79.891 Long term (current) use of opiate analgesic
CPT/HCPCS: G0463